=== PATIENT | female | born 1950 | race Caucasian/White ===

== ENCOUNTER → 2016-08-07 | Outpatient (CLI) | payer BC ==
[~2016-08-07] MED LIST: ASPI-232; ATOR-26 PO; ATV/1 SL; BRIM0.1S OP; CHOL1CAP57 PO; DIFL0.0519; FERR325T51 PO; GLIM2TAB PO; IBUP1CAP9 PO; LATA0.009 OPB; LISI-725 PO; MAGN400T6 PO; METF-383 PO; SITA25TA PO
[2016-08-07 13:21] LABS: HEMATOCRIT 44.9 % (37-47); MEAN CELL VOLUME 95.1 fL (80-100); MEAN CORPUSCULAR HEMOGLOBIN 32.2 pg (25-34); MEAN CORPUSCULAR HGB CONC 33.9 g/dl (32-36); MEAN PLATELET VOLUME 9.6 fL (7.4-10.4); PLATELET COUNT 333 K/uL (130-400); RED BLOOD COUNT 4.72 M/uL (4.2-5.4); WHITE BLOOD COUNT 10.84 K/uL (4.8-10.8)
[2016-08-07 13:46] LABS: ESTIMATED AVERAGE GLUCOSE 192 mg/dl; HA1C FLAG Normal (Normal)
[2016-08-07 14:15] LABS: ALT/SGPT 26 U/L (12-78); AST/SGOT 22 U/L (15-37); BLOOD UREA NITROGEN 14 mg/dl (7-18); BUN/CREATININE RATIO 19.1 (10-20); CALCIUM 9.3 mg/dl (8.5-10.1); CARBON DIOXIDE 25 mmol/L (21-32); CHLORIDE 104 mmol/L (98-107); CHOLESTEROL 123 mg/dl (0-200); CREATININE 0.74 mg/dl (0.60-1.20); GLUCOSE 132 mg/dl (70-99); POTASSIUM 4.1 mmol/L (3.5-5.1); SODIUM 139 mmol/L (136-145)
[2016-08-07 14:26] LABS: ALB/GLOB RATIO 1.2 (0.9-2); ALKALINE PHOSPHATASE 86 U/L (45-117); CHOLESTEROL/HDL RATIO 2.9; HDL CHOLESTEROL 43 mg/dl; LDL CHOLESTEROL CALCULATED 40 mg/dl; TRIGLYCERIDES 201 mg/dl (0-150); VERY LOW DENSITY LIPOPROT CALC 40 mg/dl
== END | disposition home or self-care (01) ==
LOC: C.LABPVFM 07:44
DX: E11.9 Type 2 diabetes mellitus without complications (principal); I10 Essential (primary) hypertension; E78.5 Hyperlipidemia, unspecified; E66.01 Morbid (severe) obesity due to excess calories

== ENCOUNTER → 2016-10-24 | Outpatient (CLI) | payer BC ==
--- NOTE | 2016-10-24 16:52 | MAMMOGRAPHY REPORT ---
BILATERAL DIGITAL SCREENING MAMMOGRAM WITH CAD: 10/24/2016 CLINICAL HISTORY: Routine screening. Patient has no complaints. TECHNIQUE: Bilateral CC, MLO and left cleavage views were obtained. Current study was also evaluate d with a Computer Aided Detection (CAD) system. COMPARISON: Comparison is made to exams dated: 10/21/2014 mammogram, 10/20/2013 mammogram, 10/22/2015 mammogram, 10/17/2012 mammogram, 10/12/2010 mammogram, and 10/17/2011 mammogram - [facility]. BREAST COMPOSITION: The tissue of both breasts is almost entirely fatty. FINDINGS: There is a benign rim calcification in the anterior left breast. No suspicious mass, arch itectural distortion or cluster of microcalcifications is seen. IMPRESSION: ACR BI-RADS CATEGORY 1: NEGATIVE There is no mammographic evidence of malignancy. A 1 year screening mammogram is recommended. The p atient will receive written notification of the results. Approximately 10% of breast cancers are not detected with mammography. A negative mammographic repor t should not delay biopsy if a clinically suggestive mass is present. Elsa Gonzales M.D. ay/:10/24/2016 16:39:50 Manager Leadership Development: Celine LOWE(Harinder)(Kristy), [facility] letter sent: Normal 1/2 BI-RADS Code: ACR BI-RADS Category 1: Negative
== END | disposition home or self-care (01) ==
LOC: C.MAMM 12:17
PROVIDERS: ATTEND Physician Assistant
DX: Z12.31 Encounter for screening mammogram for malignant neoplasm of breast (principal)

== ENCOUNTER → 2016-11-13 | Outpatient (CLI) | payer BC ==
[~2016-11-13] MED LIST changes: -FERR325T51 PO; -MAGN400T6 PO
[2016-11-13 17:24] LABS: HEMATOCRIT 44.7 % (37-47); MEAN CELL VOLUME 93.7 fL (80-100); MEAN CORPUSCULAR HEMOGLOBIN 30.8 pg (25-34); MEAN CORPUSCULAR HGB CONC 32.9 g/dl (32-36); MEAN PLATELET VOLUME 9.3 fL (7.4-10.4); PLATELET COUNT 340 K/uL (130-400); RED BLOOD COUNT 4.77 M/uL (4.2-5.4); WHITE BLOOD COUNT 10.62 K/uL (4.8-10.8)
[2016-11-13 18:06] LABS: ALT/SGPT 27 U/L (12-78); AST/SGOT 18 U/L (15-37); BLOOD UREA NITROGEN 11 mg/dl (7-18); BUN/CREATININE RATIO 17.2 (10-20); CALCIUM 8.9 mg/dl (8.5-10.1); CARBON DIOXIDE 28 mmol/L (21-32); CHLORIDE 104 mmol/L (98-107); CREATININE 0.66 mg/dl (0.60-1.20); GLUCOSE 198 mg/dl (70-99); POTASSIUM 4.1 mmol/L (3.5-5.1); SODIUM 139 mmol/L (136-145)
[2016-11-13 18:17] LABS: ALB/GLOB RATIO 1.1 (0.9-2); ALKALINE PHOSPHATASE 97 U/L (45-117); CHOLESTEROL 127 mg/dl (0-200); CHOLESTEROL/HDL RATIO 2.9; HDL CHOLESTEROL 44 mg/dl; LDL CHOLESTEROL CALCULATED 49 mg/dl; TRIGLYCERIDES 171 mg/dl (0-150); VERY LOW DENSITY LIPOPROT CALC 34 mg/dl
[2016-11-14 07:13] LABS: ESTIMATED AVERAGE GLUCOSE 206 mg/dl; HA1C FLAG Normal (Normal)
== END | disposition home or self-care (01) ==
LOC: C.LABPVFM 13:47
PROVIDERS: ATTEND Physician Assistant
DX: E11.9 Type 2 diabetes mellitus without complications (principal); J44.9 Chronic obstructive pulmonary disease, unspecified; I10 Essential (primary) hypertension; E78.5 Hyperlipidemia, unspecified

== ENCOUNTER → 2017-03-21 | Outpatient (CLI) | payer BC ==
[2017-03-21 12:23] LABS: HEMATOCRIT 43.2 % (37-47); MEAN CELL VOLUME 93.7 fL (80-100); MEAN CORPUSCULAR HEMOGLOBIN 30.2 pg (25-34); MEAN CORPUSCULAR HGB CONC 32.2 g/dl (32-36); MEAN PLATELET VOLUME 9.3 fL (7.4-10.4); PLATELET COUNT 413 K/uL (130-400); RED BLOOD COUNT 4.61 M/uL (4.2-5.4); WHITE BLOOD COUNT 10.56 K/uL (4.8-10.8)
[2017-03-21 12:56] LABS: ESTIMATED AVERAGE GLUCOSE 171 mg/dl; HA1C FLAG Normal (Normal)
[2017-03-21 12:57] LABS: ALT/SGPT 25 U/L (12-78); AST/SGOT 19 U/L (15-37); BLOOD UREA NITROGEN 15 mg/dl (7-18); BUN/CREATININE RATIO 21.4 (10-20); CALCIUM 9.7 mg/dl (8.5-10.1); CARBON DIOXIDE 26 mmol/L (21-32); CHLORIDE 105 mmol/L (98-107); CHOLESTEROL 131 mg/dl (0-200); CREATININE 0.69 mg/dl (0.60-1.20); GLUCOSE 156 mg/dl (70-99); POTASSIUM 4.3 mmol/L (3.5-5.1); SODIUM 139 mmol/L (136-145); TRIGLYCERIDES 280 mg/dl (0-150); VERY LOW DENSITY LIPOPROT CALC 56 mg/dl
[2017-03-21 13:07] LABS: ALKALINE PHOSPHATASE 88 U/L (45-117); CHOLESTEROL/HDL RATIO 3.2; HDL CHOLESTEROL 41 mg/dl; LDL CHOLESTEROL CALCULATED 34 mg/dl
== END | disposition home or self-care (01) ==
LOC: C.LABPVFM 10:14
PROVIDERS: ATTEND Physician Assistant
DX: E11.9 Type 2 diabetes mellitus without complications (principal); I10 Essential (primary) hypertension; J44.9 Chronic obstructive pulmonary disease, unspecified; E78.5 Hyperlipidemia, unspecified; E66.09 Other obesity due to excess calories

== ENCOUNTER → 2017-09-19 | Outpatient (CLI) | payer BC ==
[2017-09-19 12:36] LABS: HEMOGLOBIN 11.5 g/dL (12.0-16.0); MEAN CELL VOLUME 82.4 fL (80-100); MEAN CORPUSCULAR HEMOGLOBIN 25.6 pg (25-34); MEAN CORPUSCULAR HGB CONC 31.1 g/dl (32-36); MEAN PLATELET VOLUME 8.6 fL (7.4-10.4); PLATELET COUNT 422 K/uL (130-400); RED CELL DISTRIBUTION WIDTH CV 15.4 % (11.5-14.5); RED CELL DISTRIBUTION WIDTH SD 46.5 fL (36.4-46.3); WHITE BLOOD COUNT 11.45 K/uL (4.8-10.8)
[2017-09-19 12:58] LABS: ALBUMIN 3.5 gm/dl (3.4-5.0); ALT/SGPT 28 U/L (12-78); AST/SGOT 21 U/L (15-37); BLOOD UREA NITROGEN 15 mg/dl (7-18); CALCIUM 8.8 mg/dl (8.5-10.1); CARBON DIOXIDE 25 mmol/L (21-32); CREATININE 0.71 mg/dl (0.60-1.20); GLUCOSE 128 mg/dl (70-99); POTASSIUM 4.2 mmol/L (3.5-5.1); SODIUM 135 mmol/L (136-145)
[2017-09-19 13:09] LABS: ALKALINE PHOSPHATASE 92 U/L (45-117); CHOLESTEROL 131 mg/dl (0-200); LDL CHOLESTEROL CALCULATED 40 mg/dl; TOTAL PROTEIN 7.3 gm/dl (6.4-8.2)
[2017-09-19 13:26] LABS: HEMOGLOBIN A1C 7.7 % (4.5-5.6)
== END | disposition home or self-care (01) ==
LOC: C.LABPVFM 10:21
PROVIDERS: ATTEND Physician Assistant
DX: E11.65 Type 2 diabetes mellitus with hyperglycemia (principal)

== ENCOUNTER → 2017-10-25 | Outpatient (CLI) | payer BC ==
--- NOTE | 2017-10-29 07:47 | MAMMOGRAPHY REPORT ---
BILATERAL DIGITAL SCREENING MAMMOGRAM TOMOSYNTHESIS WITH CAD: 10/25/2017 CLINICAL HISTORY: Routine screening. Patient has no complaints. TECHNIQUE: Breast tomosynthesis in addition to standard 2D mammography was performed. Current study was also evaluated with a Computer Aided Detection (CAD) system. COMPARISON: Comparison is made to exams dated: 10/24/2016 mammogram, 10/22/2015 mammogram, 10/21/2014 m ammogram, 10/20/2013 mammogram, 10/17/2012 mammogram, and 10/17/2011 mammogram - [facility]. BREAST COMPOSITION: The tissue of both breasts is almost entirely fatty. FINDINGS: No suspicious masses, calcifications, or areas of architectural distortion are noted in ei ther breast. There has been no significant interval change compared to prior exams. IMPRESSION: ACR BI-RADS CATEGORY 1: NEGATIVE There is no mammographic evidence of malignancy. A 1 year screening mammogram is recommended. The pa tient will receive written notification of the results. Approximately 10% of breast cancers are not detected with mammography. A negative mammographic report should not delay biopsy if a clinically suggestive mass is present. Ashley Salinas M.D. /:10/25/2017 14:27:37 Personal Consultant: Harinder Angel M, [facility] letter sent: Normal 1/2 BI-RADS Code: ACR BI-RADS Category 1: Negative
== END | disposition home or self-care (01) ==
LOC: C.MAMM 12:08
PROVIDERS: ATTEND Physician Assistant
DX: Z12.31 Encounter for screening mammogram for malignant neoplasm of breast (principal)

== ENCOUNTER 2019-10-22 01:56 | Inpatient (IN) ==
--- NOTE | 2019-10-22 02:09 | Emergency Department Note ---
History of Present Illness General Chief complaint: Abdominal Pain Stated complaint: ABDOMINAL PAIN Time Seen by Provider: 10/22/19 01:57 History of Present Illness Maximum Pain Intensity: 7 This is a 69-year-old female that presents to the emergency department via ambulance with complaints of "abdominal pain". The patient states that she has used suppositories over the past 2 days to help reduce a bowel movement. She notes some associated nausea and diffuse abdominal pain. She notes she has known abdominal hernias and mesh was removed in the past by Dr. Luo secondary to reaction to these. She states that the abdominal pain she has been experiencing has been ongoing for several hours now and notes some nausea but no vomiting. No fevers, chills, chest pain or shortness of breath. No aggravating or alleviating factors. She rates the overall pain as a 7/10 Home Medications Home Medications Medication Instructions Recorded Confirmed Type aspirin [Aspirin Low Dose] 81 mg PO QPM 10/30/18 10/22/19 History atorvastatin [Lipitor] 80 mg PO HS 10/30/18 10/22/19 History brimonidine 1 drp OPHTHALMIC (EYE) BID 10/30/18 10/22/19 History cholecalciferol (vitamin D3) 2,000 unit PO QAM 10/30/18 10/22/19 History [Vitamin D3] citalopram [Celexa] 20 mg PO QAM 10/30/18 10/22/19 History diclofenac sodium 2 g TOPICAL DAILY PRN 10/30/18 10/22/19 History difluprednate [Durezol] 1 drp OPHTHALMIC (EYE) BID PRN 10/30/18 10/22/19 History gabapentin 300 mg PO HS 10/30/18 10/22/19 History glimepiride 4 mg PO BID 10/30/18 10/22/19 History ibuprofen 800 mg PO BID PRN 10/30/18 10/22/19 History latanoprost 1 drp OPHTHALMIC (EYE) PM 10/30/18 10/22/19 History lisinopril 20 mg PO QAM 10/30/18 10/22/19 History lorazepam 1 mg PO BID PRN 10/30/18 10/22/19 History metformin 1,700 mg PO QAM 10/30/18 10/22/19 History metformin 850 mg PO QPM 10/30/18 10/22/19 History sitagliptin [Januvia] 100 mg PO QPM 10/30/18 10/22/19 History Allergies Allergy/AdvReac Type Severity Reaction Status Date / Time latex Allergy Severe 2ND DEGREE Verified 10/22/19 04:42 BURN FROM BANDAGE adhesive Allergy Intermediate RASH Verified 10/22/19 04:42 Past Med/Surg History Medical History Anxiety Chronic obstructive pulmonary disease Depression Diabetes mellitus, type 2 NIDDM Glaucoma WELL CONTROLLED H/O defect LEFT ARM Hyperlipidemia Hypertension Peripheral neuropathy BILATERAL FEET Temporomandibular joint disorder NO PROBLEMS RECENTLY. Surgical History History of appendectomy History of cholecystectomy History of colonoscopy History of incision and drainage UMBILICAL ABSCESS History of total shoulder replacement RIGHT Hx of umbilical hernia repair X4 -- WEARS SUPPORT BAND DAILY S/P JALIL-BSO S/P tonsillectomy and adenoidectomy Family History Mother Diabetes mellitus, type 2 Aunt Diabetes mellitus, type 2 Social History Preferred Language: Georgian Communication Ability: Effective Insurance Compliance Analyst Required: No Beliefs That Will Affect Care: None Current Living Situation: Spouse Feels Safe at Home: Yes Smoking Status: Current every day smoker Tobacco Type: cigarettes ; Cigarettes Per Day: 2 PPD X 50 YEARS AGO ; Second Hand Exposure: Yes ; Hx Alcohol Use: No Hx Substance Use: No Review of Systems A total of 10 systems reviewed and were otherwise negative Physical Exam Vital Signs Vital Signs - 24 hr 10/22/19 01:59 10/22/19 02:08 10/22/19 03:45 Temperature 37 C Temperature Source Oral Pulse Rate 76 Pulse Rate [Right Finger] Blood Pressure 125/65 Blood Pressure [Left Arm] Blood Pressure Mean 85 Blood Pressure Mean [Left Arm] Pulse Oximetry 96 96 88 L Oxygen Delivery Method Nasal Cannula Nasal Cannula Room Air Oxygen Flow Rate 2 2 Sepsis Recent Fever Within 48 Hours No Sepsis Action Taken by Nursing No Action Required 10/22/19 03:46 10/22/19 05:13 Temperature Temperature Source Pulse Rate Pulse Rate [Right Finger] 69 81 Blood Pressure Blood Pressure [Left Arm] 141/64 H Blood Pressure Mean Blood Pressure Mean [Left Arm] 89 Pulse Oximetry 92 Oxygen Delivery Method Nasal Cannula Oxygen Flow Rate 2 Sepsis Recent Fever Within 48 Hours Sepsis Action Taken by Nursing VITAL SIGNS - Vital signs and nursing notes were reviewed. Stable and afebrile. GENERAL - 69-year-old female appearing her stated age who is in no acute distress. Communicates well with provider and answers questions appropriately. SKIN - Without rashes. No meningeal or petechial rash. HEAD - NC/AT. EYES - Sclera anicteric. MOUTH/OROPHARYNX - Without perioral cyanosis. NECK - Neck with FROM. No nuchal rigidity. LUNGS - Chest wall symmetric without accessory muscle use, intercostals retractions, or central cyanosis. Normal vesicular breath sounds CTA B/L. No wheezes, rales, or rhonchi appreciated. CARDIAC - RRR with S1/S2. No murmur, rubs, or gallops appreciated. ABDOMEN - Abdominal contour with visible deformity consistent with hernia without pulsations. BS normoactive all four quadrants. Generalized tenderness. Nonrigid abdomen. PSYCH - A&O, and cooperates fully with examiner. Pt is very pleasant and interacts well with examiner. Course Administered Medications Ioversol (Optiray 320 100ml) 100 ml IV ONCE PRN PRN Reason: Interaction Checking Stop: 10/26/19 04:02 Last Admin: 10/22/19 04:03 Dose: 93 ml Documented by: [id number] Medical Decision Making Laboratory Data Result diagrams: 10/22/19 03:26 10/22/19 03:26 Lab Results 10/22/19 10/22/19 10/22/19 Range/Units 03:26 03:26 03:30 WBC 21.50 H (4.8-10.8) K/uL RBC 4.41 (4.2-5.4) M/uL Hgb 8.1 L (12.0-16.0) g/dL Hct 31.4 L (37-47) % MCV 71.2 L (80-100) fL MCH 18.4 L (25-34) pg MCHC 25.8 L (32-36) g/dL RDW Std Deviation 50.6 H (36.4-46.3) fL RDW Coeff of Vikas 19.8 H (11.5-14.5) % Plt Count 390 (130-400) K/uL MPV 8.5 (7.4-10.4) fL Immature Gran % (Auto) 0.4 % Neut % (Auto) 90.3 % Lymph % (Auto) 4.6 % Montgomery % (Auto) 4.3 % Eos % (Auto) 0.0 % Baso % (Auto) 0.4 % Immature Gran # (Auto) 0.08 H (0.00-0.02) K/uL Neut # (Auto) 19.42 H (1.4-6.5) K/uL Lymph # (Auto) 0.99 L (1.2-3.4) K/uL Montgomery # (Auto) 0.92 H (0.11-0.59) K/uL Eos # (Auto) 0.01 (0-0.5) K/uL Baso # (Auto) 0.08 (0-0.2) K/uL Absolute Nucleated RBC 0.10 H (0-0) K/uL Nucleated RBC % (auto) 0.5 % Hypochromasia Present Spherocytes Occasional Tear Drop Cells Occasional Ovalocytes 1+ Sodium 132 L (136-145) mmol/L Potassium 4.4 (3.5-5.1) mmol/L Chloride 101 (98-107) mmol/L Carbon Dioxide 25 (21-32) mmol/L Anion Gap 6.0 (3-11) BUN 15 (7-18) mg/dl Creatinine 0.93 (0.6-1.2) mg/dl Est Cr Clr Drug Dosing 72.3 ml/min Est GFR ( Amer) 73.2 Est GFR (Non-Af Amer) 63.1 BUN/Creatinine Ratio 15.9 (10-20) Glucose 182 H (70-99) mg/dl Calcium 9.1 (8.5-10.1) mg/dl Magnesium 1.6 L (1.8-2.4) mg/dl Total Bilirubin 0.4 (0.2-1) mg/dl AST 17 (15-37) U/L ALT 24 (12-78) U/L Alkaline Phosphatase 135 H (45-117) U/L Troponin I < 0.015 (0-0.045) ng/ml Total Protein 8.4 H (6.4-8.2) gm/dl Albumin 3.7 (3.4-5.0) gm/dl Globulin 4.7 H (2.5-4.0) gm/dl Albumin/Globulin Ratio 0.8 L (0.9-2) Lipase 127 (73-393) U/L Urine Color Yellow Urine Appearance Clear (Clear) Urine pH 6.0 (4.5-7.5) Ur Specific [place]ley 1.016 (1.000-1.030) Urine Protein Negative (Negative) Urine Glucose (UA) 1+ H (Negative) Urine Ketones Negative (Negative) Urine Blood Negative (Negative) Urine Nitrite Negative (Negative) Urine Bilirubin Negative (Negative) Urine Urobilinogen Negative (Negative) Ur Leukocyte Esterase Negative (Negative) Imaging Data Radiologist's Impression: CT ABDOMEN & PELVIS With Contrast: Comparison: CT abdomen and pelvis 07/12/11. Large ventral abdominal wall hernia. Portions of the stomach, small bowel, large bowel, liver, pancreas, and kidneys extend into the hernia. Evidence of previous small bowel surgery. Multiple dilated, fluid-filled, and fecalized loops of small bowel are present within the hernia sac. The distal ileum is decompressed. Findings suggest small bowel obstruction. Trace interloop ascites and mesenteric edema. No pneumatosis or portal venous gas. Appendix is not definitely visualized. Scattered colonic diverticula without acute diverticulitis. Cholecystectomy. Liver, spleen, pancreas, adrenal glands are unremarkable. No hydronephrosis. Right kidney cyst. Aortoiliac atherosclerosis without aneurysm. Hysterectomy. Normal urinary bladder. No acute osseous findings. Radiologist: Kunal Isaac M.D. Study ready at 04:28 and initial results transmitted at 04:42 MDM Narrative Patient was seen and evaluated as above in room B12. Review was performed of nursing notes and vital signs. I did review pertinent previous visits and patient history. After obtaining a thorough history and physical examination the above work up was performed. She presents to us today with generalized abdominal pain and nausea. She does have a history of abdominal surgeries. There is a large ventral hernia on exam. She notes a history of hernias in the past. The abdomen is soft and nonrigid but she is tender diffusely throughout the abdomen. CBC reveals leukocytosis of 21.50 with hemoglobin at 8.1. This is decreased compared to previously but there is no evidence of hemorrhage or acute blood loss. Sodium 132. The troponin is negative. Urinalysis does not reveal infection. EKG reveals normal sinus rhythm at a rate of 69 bpm. QTc 432. There are similar T wave changes compared to EKG of October 31, 2013. Troponin is negative. CT scan reveals small bowel obstruction with thinning hernia. I did discuss this with the general surgeon. At this time I did reevaluate the patient and she was feeling well and had very minimal pain despite declining pa in medication. She was looking much better in regard to pain. I discussed the case with the hospitalist. Patient will be admitted for further evaluation and management. Do not believe that NG tube at this time needs to be emergently placed as there is no vomiting. I also do not believe that patient has a surgical abdomen on examination. Please refer to further documentation regarding her stay. Case was discussed with the attending physician. GCS: 15 In the evaluation and treatment of this patient, the following differential diagnoses were considered: ASC, VT, Pneumonia, GERD, Cholecystitis, Ascending Cholangitis, Cholydocholithiasis, Bowel Obstruction, PE, Amongst Others. Impression & Plan SBO (small bowel obstruction), Ventral hernia Discharge Plan Visit Data Chief Complaint: Abdominal Pain Stated Complaint: ABDOMINAL PAIN ED Provider: Cristofer Black ED Midlevel Provider: Pedro Luis Graves Discharge Problem: SBO (small bowel obstruction), Ventral hernia Patient Disposition: Admitted As Inpatient Condition: Good Forms Stand Alone Forms: [facility], Important Visit Information Prescriptions Prescriptions: No Action latanoprost 0.005 % Drops 1 drp OPHTHALMIC (EYE) PM RF: 0 atorvastatin [Lipitor] 80 mg Tablet 80 mg PO HS RF: 0 lisinopril 20 mg Tablet 20 mg PO QAM RF: 0 aspirin [Aspirin Low Dose] 81 mg Tablet,Delayed Release (Dr/Ec) 81 mg PO QPM RF: 0 glimepiride 2 mg Tablet 4 mg PO BID RF: 0 citalopram [Celexa] 20 mg Tablet 20 mg PO QAM RF: 0 lorazepam 1 mg Tablet 1 mg PO BID PRN (Reason: Anxiety) RF: 0 brimonidine 0.15 % Drops 1 drp OPHTHALMIC (EYE) BID RF: 0 cholecalciferol (vitamin D3) [Vitamin D3] 2,000 unit Capsule 2,000 unit PO QAM RF: 0 Durezol 0.05 % Drops 1 drp OPHTHALMIC (EYE) BID PRN (Reason: RED EYE) RF: 0 metformin 850 mg Tablet 850 mg PO QPM RF: 0 metformin 850 mg Tablet 1,700 mg PO QAM RF: 0 Januvia 100 mg Tablet 100 mg PO QPM RF: 0 gabapentin 300 mg Capsule 300 mg PO HS RF: 0 ibuprofen 800 mg Tablet 800 mg PO BID PRN (Reason: Pain) RF: 0 diclofenac sodium 1 % Gel 2 g TOPICAL DAILY PRN (Reason: Pain) RF: 0 Referrals Referrals: Kristal Pham CRNP [Primary Care Provider] -
[2019-10-22 03:40] LABS: Appearance Urine Clear (Clear); Bilirubin Urine Negative (Negative); Blood Urine Negative (Negative); Color Urine Yellow; Glucose Urine UA 1+ (Negative); Ketones Urine Negative (Negative); Leukocyte Esterase Urine Negative (Negative); Nitrite Urine Negative (Negative); Protein Urine Negative (Negative); Specific Gravity Urine 1.016 (1.000-1.030); Urobilinogen Urine Negative (Negative)
[2019-10-22 03:54] LABS: Alanine Aminotransferase 24 U/L (12-78); Albumin Level 3.7 gm/dl (3.4-5.0); Aspartate Aminotransferase 17 U/L (15-37); BUN Creatinine Ratio 15.9 (10-20); Blood Urea Nitrogen 15 mg/dl (7-18); Calcium 9.1 mg/dl (8.5-10.1); Carbon Dioxide 25 mmol/L (21-32); Chloride 101 mmol/L (98-107); Creatinine Clr Calc Pharmacy 72.3 ml/min; Est GFR (African American) 73.2; Est GFR (Non-African American) 63.1; Glucose 182 mg/dl (70-99); Lipase 127 U/L (73-393); Magnesium 1.6 mg/dl (1.8-2.4); Potassium 4.4 mmol/L (3.5-5.1); Sodium 132 mmol/L (136-145)
[2019-10-22 03:59] LABS: Albumin Globulin Ratio 0.8 (0.9-2); Alkaline Phosphatase 135 U/L (45-117); Bilirubin,Total 0.4 mg/dl (0.2-1); Globulin 4.7 gm/dl (2.5-4.0); Total Protein 8.4 gm/dl (6.4-8.2); Troponin I < 0.015 ng/ml (0-0.045)
[2019-10-22] MEDS ORDERED: IOVERSOL 100ml IV PRN (04:03)
[2019-10-22 04:16] LABS: Hematocrit (blood only) 31.4 % (37-47); Hemoglobin 8.1 g/dL (12.0-16.0); Mean Corpuscular Hemoglobin 18.4 pg (25-34); Mean Corpuscular Hgb Conc 25.8 g/dL (32-36); Mean Corpuscular Volume 71.2 fL (80-100); Mean Platelet Volume 8.5 fL (7.4-10.4); Nucleated RBC % (auto) 0.5 %; Platelet Count 390 K/uL (130-400); RDW Coefficient of Variation 19.8 % (11.5-14.5); RDW Standard Deviation 50.6 fL (36.4-46.3); Red Blood Count 4.41 M/uL (4.2-5.4)
[2019-10-22 04:19] LABS: Basophils # (auto) 0.08 K/uL (0-0.2); Basophils % (auto) 0.4 %; Eosinophils # (auto) 0.01 K/uL (0-0.5); Hypochromasia Present; Immature Granulocytes # (auto) 0.08 K/uL (0.00-0.02); Immature Granulocytes % (auto) 0.4 %; Lymphocytes # (auto) 0.99 K/uL (1.2-3.4); Lymphocytes % (auto) 4.6 %; Monocytes # (auto) 0.92 K/uL (0.11-0.59); Monocytes % (auto) 4.3 %; Neutrophils # (auto) 19.42 K/uL (1.4-6.5); Neutrophils % (auto) 90.3 %; Ovalocytes 1+; Spherocytes Occasional; Tear Drop Cells Occasional
--- NOTE | 2019-10-22 06:32 | History & Physical Report ---
Date of Service October 22, 2019 Assessment & Plan (1) SBO (small bowel obstruction): Patient with large ventral hernia containing most of her abdominal organs. SBO. Presently with abdominal pain, no nausea/vomiting. -Admit to medical floor -NPO -Zofran PRN nausea -Morphine PRN pain -IVF and electrolyte repletion -General Surgery consultation appreciated -Hold ASA and Lisinopril for now in event of possible surgery Present on Admission?: Yes (2) Ventral hernia: Patient with large ventral hernia, has been worked on in the past by Dr. Luo. Abdomen is soft -General Surgery consultation appreciated -Conitnue abdominal binder Present on Admission?: Yes (3) Hypertension: Blood pressure stable -Hold Lisinopril for now -Continue to monitor Present on Admission?: Yes (4) Hyperlipidemia: Chronic. -Continue Atorvastatin Present on Admission?: Yes (5) Glaucoma: Chronic. Stable -Continue Brimonide, Durezol Present on Admission?: Yes (6) Peripheral neuropathy: Chronic -Continue Gabapentin Present on Admission?: Yes (7) Depression: Chronic -Continue Celexa Present on Admission?: Yes (8) Anxiety: Chronic -Continue Ativan PRN Present on Admission?: Yes (9) Chronic obstructive pulmonary disease: Chronic -Supplemental O2 as needed to maintain sats 88-92% Present on Admission?: Yes (10) Diabetes mellitus, type 2: Blood sugar mildly elevated -Hold oral agents -ISS, patient NPO for now F/E/N - NSS at 80mL/hr, montior electrolytes and replete as needed, NPO Ppx - SCDs Code -Full Dispo - Admit to medical floor, General Surgery consultation for SBO and large ventral hernia Present on Admission?: Yes Admission and Anticipated Discharge Date Admission Date: 10/22/19 Anticipated date of discharge: 10/25/19 History of Present Illness Chief Complaint: Abdominal pain Primary Care Provider: Kristal Pham Traci Roman is a 69yo C female presenting with large ventral abdominal wall hernia and SBO. She acutely developed abdominal pain and fullness yesterday around 12:00 as well as some episodes of mild nausea without vomiting. CT of the abdomen revealed a large ventral abdominal wall hernia. Portions of the stomach, small bowel, large bowel, liver, pancreas and kidneys extend into the hernia. Evidence of previous SBO. Multiple dilated, fluid-filled and fecalized loops of small bowel are present within the hernia sacs. Findings suggest SBO. Patient presently feeling fairly well. She has been having episodes of sharp, severe abdominal pain 03/11. No nausea or vomiting at present. Additionally she denies fevers, chills, cough, CP, SOB, diarrhea or constipation. She is not passing gas. She gave herself an enema yesterday and had a normal BM prior to arrival. No additional complaints at this time Allergies Allergy/AdvReac Type Severity Reaction Status Date / Time latex Allergy Severe 2ND DEGREE Verified 10/22/19 04:42 BURN FROM BANDAGE adhesive Allergy Intermediate RASH Verified 10/22/19 04:42 Home Medications Home Medications Medication Instructions Recorded Confirmed Type aspirin [Aspirin Low Dose] 81 mg PO QPM 10/30/18 10/22/19 History atorvastatin [Lipitor] 80 mg PO HS 10/30/18 10/22/19 History brimonidine 1 drp OPHTHALMIC (EYE) BID 10/30/18 10/22/19 History cholecalciferol (vitamin D3) 2,000 unit PO QAM 10/30/18 10/22/19 History [Vitamin D3] citalopram [Celexa] 20 mg PO QAM 10/30/18 10/22/19 History diclofenac sodium 2 g TOPICAL DAILY PRN 10/30/18 10/22/19 History difluprednate [Durezol] 1 drp OPHTHALMIC (EYE) BID PRN 10/30/18 10/22/19 History gabapentin 300 mg PO HS 10/30/18 10/22/19 History glimepiride 4 mg PO BID 10/30/18 10/22/19 History ibuprofen 800 mg PO BID PRN 10/30/18 10/22/19 History latanoprost 1 drp OPHTHALMIC (EYE) PM 10/30/18 10/22/19 History lisinopril 20 mg PO QAM 10/30/18 10/22/19 History lorazepam 1 mg PO BID PRN 10/30/18 10/22/19 History metformin 1,700 mg PO QAM 10/30/18 10/22/19 History metformin 850 mg PO QPM 10/30/18 10/22/19 History sitagliptin [Januvia] 100 mg PO QPM 10/30/18 10/22/19 History Past Med/Surg History Social History Preferred Language: Serbian Communication Ability: Effective 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 Beliefs That Will Affect Care: None Current Living Situation: Spouse Feels Safe at Home: Yes Smoking Status: Current every day smoker Tobacco Type: cigarettes ; Cigarettes Per Day: 2 PPD X 50 YEARS AGO ; Second Hand Exposure: Yes ; Hx Alcohol Use: No Hx Substance Use: No Review of Systems Review of Systems: All systems reviewed & are unremarkable except as noted in HPI & below Physical Exam Physical Exam: General: patient resting comfortably, NAD, chronically ill in appearance, AA&O x 4 Skin: warm, dry, intact, no rashes or lesions HEENT: NC/AT, PERRL, EOMI, anicteric sclera, conjunctiva without injection, external ear normal to inspection and nontender, nares patent, moist mucus membranes, dentition intact, no oropharyngeal lesions, neck supple, trachea midline, no LAD, no thyromegaly, no JVD Heart: +S1/S2, regular, no m/r/g Lungs: equal air entry bilaterally, no rales/rhonchi/wheezes Abd: Diminished bowel sounds, very large ventral hernia, abdominal binder in p lace, soft, diffusely tender with palpation, no rebound Ext: warm, 2+ pulses in UE/LE bilaterally, no clubbing/cyanosis or edema Neuro: nonfocal, patient AA&O x 4, speech intact, no facial droop, moving all extremities on command with equal strength 5/5 Results & Data Results & Data ([facility]) Vital Signs (Past 12 Hours) Vital Signs Temp Pulse Pulse BP BP Pulse Ox 10/22/19 05:13 81 141/64 H 10/22/19 03:46 69 92 10/22/19 03:45 88 L 10/22/19 02:08 96 10/22/19 01:59 37 C 76 125/65 96 Laboratory Results Lab Results 10/22/19 10/22/19 10/22/19 Range/Units 03:26 03:26 03:30 WBC 21.50 H (4.8-10.8) K/uL RBC 4.41 (4.2-5.4) M/uL Hgb 8.1 L (12.0-16.0) g/dL Hct 31.4 L (37-47) % MCV 71.2 L (80-100) fL MCH 18.4 L (25-34) pg MCHC 25.8 L (32-36) g/dL RDW Std Deviation 50.6 H (36.4-46.3) fL RDW Coeff of Vikas 19.8 H (11.5-14.5) % Plt Count 390 (130-400) K/uL MPV 8.5 (7.4-10.4) fL Immature Gran % (Auto) 0.4 % Neut % (Auto) 90.3 % Lymph % (Auto) 4.6 % Pine % (Auto) 4.3 % Eos % (Auto) 0.0 % Baso % (Auto) 0.4 % Immature Gran # (Auto) 0.08 H (0.00-0.02) K/uL Neut # (Auto) 19.42 H (1.4-6.5) K/uL Lymph # (Auto) 0.99 L (1.2-3.4) K/uL Pine # (Auto) 0.92 H (0.11-0.59) K/uL Eos # (Auto) 0.01 (0-0.5) K/uL Baso # (Auto) 0.08 (0-0.2) K/uL Absolute Nucleated RBC 0.10 H (0-0) K/uL Nucleated RBC % (auto) 0.5 % Hypochromasia Present Spherocytes Occasional Tear Drop Cells Occasional Ovalocytes 1+ Sodium 132 L (136-145) mmol/L Potassium 4.4 (3.5-5.1) mmol/L Chloride 101 (98-107) mmol/L Carbon Dioxide 25 (21-32) mmol/L Anion Gap 6.0 (3-11) BUN 15 (7-18) mg/dl Creatinine 0.93 (0.6-1.2) mg/dl Est Cr Clr Drug Dosing 72.3 ml/min Est GFR ( Amer) 73.2 Est GFR (Non-Af Amer) 63.1 BUN/Creatinine Ratio 15.9 (10-20) Glucose 182 H (70-99) mg/dl Calcium 9.1 (8.5-10.1) mg/dl Magnesium 1.6 L (1.8-2.4) mg/dl Total Bilirubin 0.4 (0.2-1) mg/dl AST 17 (15-37) U/L ALT 24 (12-78) U/L Alkaline Phosphatase 135 H (45-117) U/L Troponin I < 0.015 (0-0.045) ng/ml Total Protein 8.4 H (6.4-8.2) gm/dl Albumin 3.7 (3.4-5.0) gm/dl Globulin 4.7 H (2.5-4.0) gm/dl Albumin/Globulin Ratio 0.8 L (0.9-2) Lipase 127 (73-393) U/L Urine Color Yellow Urine Appearance Clear (Clear) Urine pH 6.0 (4.5-7.5) Ur Specific [place] 1.016 (1.000-1.030) Urine Protein Negative (Negative) Urine Glucose (UA) 1+ H (Negative) Urine Ketones Negative (Negative) Urine Blood Negative (Negative) Urine Nitrite Negative (Negative) Urine Bilirubin Negative (Negative) Urine Urobilinogen Negative (Negative) Ur Leukocyte Esterase Negative (Negative) Diagnostic Findings CT Abdomen and Pelvis with Contrast: STAT-Rad REPORT: large ventral abdominal wall hernia. Portions of the stomach, small bowel, large bowel, liver, pancreas and kidneys extend into the hernia. Evidence of previous small bowel surgery Multiple dilated, fluid filled and fecalized loops of small bowel are present within the hernia sac. The distal ileum is decompressed. Findings suggest small bowel obstruction. Trace interloop ascites and mesenteric edema. No pneumatosis or portal venous gas. Appendix is not well visualized Scallered colonic diverticula without acute diverticulitis Cholecystectomy. Liver, spleen, pancreas, adrenal glands are unremarkable No hydronephrosis. Right kidney cyst. Aortoiliac atherosclerosis without aneurysm Hysterectomy. Normal urinary bladder No acute osseous findings ECG Additional Comments: Study shows NSR at 69, bifascicular block Code Status & VTE Plan Code Status FULL VTE Prophylaxis Plan VTE Prophylaxis will be ordered: Yes PG Care Time/CCT Total # of Minutes Spent Total Time Spent with Patient: Total time spent is greater than 50% in coordination of care (as documented) at patient's floor/unit and/or counseling patient: Coding Level of Care Code 63758 Initial Inpt Care Lvl 3 Diagnoses SBO (small bowel obstruction) K56.609 Ventral hernia K43.6 Obstruction and gangrene presence: with obstruction but without gangrene Hypertension I10 Hypertension type: essential hypertension Hyperlipidemia E78.5 Hyperlipidemia type: unspecified Glaucoma H40.9 Glaucoma type: unspecified Laterality: unspecified laterality Peripheral neuropathy G62.89 Peripheral neuropathy type: polyneuropathy, other Depression F32.9 Depression Type: major depressive disorder Major depression recurrence: unspecified whether recurrent Active/Remission status: remission status unspecified Anxiety F41.9 Chronic obstructive pulmonary disease J44.9 COPD type: unspecified COPD Diabetes mellitus, type 2 E11.9 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: without intermodal owner operator truck driver use Diabetes mellitus complication status: without complication (1) Ventral hernia Obstruction and gangrene presence: with obstruction but without gangrene Qualified Code(s): K43.6 - Other and unspecified ventral hernia with obstruction, without gangrene (2) Hypertension Hypertension type: essential hypertension Qualified Code(s): I10 - Essential (primary) hypertension (3) Hyperlipidemia Hyperlipidemia type: unspecified Qualified Code(s): E78.5 - Hyperlipidemia, unspecified (4) Glaucoma Glaucoma type: unspecified Laterality: unspecified laterality Qualified Code(s): H40.9 - Unspecified glaucoma (5) Peripheral neuropathy Peripheral neuropathy type: polyneuropathy, other Qualified Code(s): G62.89 - Other specified polyneuropathies (6) Depression Depression Type: major depressive disorder Major depression recurrence: unspecified whether recurrent Active/Remission status: remission status unspecified Qualified Code(s): F32.9 - Major depressive disorder, single episode, unspecified (7) Chronic obstructive pulmonary disease COPD type: unspecified COPD Qualified Code(s): J44.9 - Chronic obstructive pulmonary disease, unspecified (8) Diabetes mellitus, type 2 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
--- NOTE | 2019-10-22 08:27 | CT Scan Report ---
CT abd pelvis IV con only CLINICAL HISTORY: 69 years-old Female presenting with diffuse abd pain. TECHNIQUE: Multidetector CT of the abdomen and pelvis was performed after the administration of intra venous contrast. IV contrast: 93 mL of Optiray 320. One or more dose lowering techniques were used co nsistent with the principles of ALARA (as low as reasonably achievable), including automatic exposure control, mA or kV adjustment to individual patient size, and/or use of iterative reconstruction. COMPARISON: 07/12/2011. CT DOSE (mGy.cm): The estimated cumulative dose is 2272.76 mGy.cm. FINDINGS: Manager Of Hospital topogram: Unremarkable. Lung bases: Borderline enlargement of the heart. Pulmonary vascular prominence. Patchy groundglass op acities with mild interlobular septal thickening. Minimal dependent changes likely atelectasis. No pl eural effusion. Liver: Macronodular contour of the liver. A portion of the right and left hepatic lobes are contained within the large ventral hernia. No focal lesion allowing for the single phase of contrast. Patent h epatic vasculature. Biliary: Mild biliary ductal prominence likely a reservoir effect in the post cholecystectomy state. Gallbladder surgically absent. Pancreas: Mild parenchymal atrophy. The pancreas is also partially contained within the ventral herni a. Spleen: Normal. Adrenal glands: Normal. Kidneys and ureters: The kidneys are partially contained within the ventral hernia, right greater corwin n left. Right parapelvic cyst noted. Moderate perinephric fluid, nonspecific and bilateral. No nephro lithiasis or hydronephrosis. Ureters are distorted due to renal herniation though nondistended. Bladder: Incompletely evaluated secondary to underdistention. Pelvic organs: Uterus surgically absent. Bowel: Mild diverticulosis of the descending and proximal sigmoid colon. The colon is decompressed an d majority is contained within the large ventral hernia. Small bowel is dilated with feces in a regio n of an enteroenteric anastomosis indicating prior small bowel resection. Scattered interloop fluid i s noted. There is decompressed distal small bowel. There is a focal transition at the level of the en teroenteric anastomosis (series 3 image 326) located within the anterior central hernia sac. This is at the level of the fecal material within the small bowel. There is a smooth transition upstream with out convincing evidence of a closed loop obstruction. Peritoneal cavity: Scattered trace ascites as mentioned with interloop fluid. No pneumatosis or free intraperitoneal gas. Lymph nodes: No enlarged lymph nodes in the abdomen or pelvis. Vasculature: Atherosclerosis of the normal caliber abdominal aorta. IVC patent. Abdominal wall: Large wide necked ventral hernia containing hollow and solid viscera. The hernia sac is incompletely visualized along the inferior and left lateral margin. Musculoskeletal: Degenerative changes of the spine. Degenerative changes of the hips. IMPRESSION: 1. Small bowel obstruction suspected at the level of the enteroenteric anastomosis within the anteri or central ventral hernia, where there is prominent fecal material. This is favored to be a high-grad e partial or complete bowel obstruction. A bezoar is one consideration as well as a stricture or adhe jesus. Surgical consultation is advised. 2. Large ventral abdominal hernia containing hollow and solid viscera. This is chronic and was prese nt on the prior exam. 3. Mild congestive change and pulmonary edema may be present at the lung bases. The report will be called/faxed according to standard departmental protocol. ACT 112: Negative or not required by law. Electronically signed by: Kaiden Roca M.D. 10/22/2019 8:25 AM
[2019-10-22] MEDS ORDERED: GLUCAGON FOR INJ 1 MG VIAL SQ PRN (09:19)
[2019-10-22] MEDS ORDERED: CARBOHYDRATES FOR HYPOGLYCEMIA PO PRN (09:19)
[2019-10-22] MEDS ORDERED: LORazepam 1 MG/2 ML VIAL IV PRN (09:19)
[2019-10-22] MEDS ORDERED: DEXTROSE 50% 50 ML SYRINGE IV PRN (09:19)
[2019-10-22] MEDS ORDERED: ONDANSETRON INJ 2 MG/ML 2 ML VIAL IV PRN (09:19)
[2019-10-22] MEDS ORDERED: DICLOFENAC SOD 1% GEL 100 GM TUBE EXT PRN (09:19)
[2019-10-22] MEDS ORDERED: GLUCOSE 10 TABS/TUBE PO PRN (09:19)
[2019-10-22] MEDS ORDERED: GLUCOSE 40% GEL 15 GM TUBE PO PRN (09:19)
[2019-10-22] MEDS: MoRPHine SULFATE 2 MG/ML CARP IV PRN ×3 (10:49→17:52)
--- NOTE | 2019-10-22 12:12 | Electrocardiogram Report ---
Test Reason : Blood Pressure : / mmHG Vent. Rate : 069 BPM Atrial Rate : 069 BPM P-R Int : 162 ms QRS Dur : 142 ms QT Int : 404 ms P-R-T Axes : 064 125 035 degrees QTc Int : 432 ms Normal sinus rhythm Right bundle branch block Left posterior fascicular block Bifascicular block T wave abnormality, consider lateral ischemia Abnormal ECG When compared with ECG of 31-OCT-2013 12:52, Nonspecific T wave abnormality now evident in Inferior leads T wave inversion now evident in Anterolateral leads QT has shortened Confirmed by Landon Malcolm ([id number]) on 10/22/2019 12:12:14 PM Referred By: REFERRED SELF Confirmed By:Michael Malcolm
--- NOTE | 2019-10-22 12:49 | Surgery Consultation ---
Date of Consultation October 22, 2019 Assessment & Plan (1) Ventral hernia: 69-year-old female with multiple medical problems, BMI of 43, and multiple prior abdominal surgeries presents with small bowel obstruction at her old anastomosis within a very large ventral hernia. She has virtually no abdominal domain apparent on imaging. Need us to say her case would be extremely difficult if she did require surgical intervention. As she had improved slightly during her time in the emergency department and was feeling better, we agreed for admission with observation. However this afternoon she is feeling worse. She is not a surgical candidate at this facility. If her condition does not improve within the next 12 to 24 hours, or her symptoms begin to worsen, then I would recommend transfer to a tertiary facility for further management. She would benefit from an NG tube if she continues to have nausea. If she shows some improvement, then we could obtain a small bowel follow-through. General surgery will continue to follow while in house, call with questions or concerns. No surgical intervention indicated at this time Conservative management for bowel obstruction for now Patient is not a candidate for surgery at this facility, if her symptoms worsen or do not improve I would recommend transfer to tertiary facility NG tube if continues to have nausea Surgery will follow, call with questions or concerns (2) SBO (small bowel obstruction): (3) Diabetes mellitus, type 2: (4) Chronic obstructive pulmonary disease: (5) Depression: (6) Hypertension: History of Present Illness Attending Physician: Paul Parr History of Present Illness 69-year-old female with complex abdominal surgical history presented to the emergency department overnight with complaints of abdominal pain. She endorsed obstipation along with nausea. On CT she was found to have an extremely [place] ventral hernia containing bowel, liver, and majority of her intra-a bdominal organs. There was some fecal is of the small bowel and an old small bowel anastomosis with distal decompression concerning for obstruction or bezoar. I was contacted by the emergency department overnight and was informed that her pain had improved and that she was feeling much better. We discussed the fact that she would likely not be a surgical candidate for this facility, however if she was improving that she could be admitted to the medical service for observation. Since her admission, her pain is returned. She does not feel better than she did last night. She is endorsing nausea and she just got some antiemetics. She has had multiple ventral hernia repairs with a subsequent infection requiring laparotomy with removal of infected [place] [address] Luo. At the time she also had a small bowel resection. Since that time she has been seen at [facility] and was recommended for gastric bypass and smoking cessation prior to any surgical intervention which she did not do. She has not had episodes like this in the recent past. Allergies Allergy/AdvReac Type Severity Reaction Status Date / Time latex Allergy Severe 2ND DEGREE Verified 10/22/19 04:42 BURN FROM BANDAGE adhesive Allergy Intermediate RASH Verified 10/22/19 04:42 Home Medications Home Medications Medication Instructions Recorded Confirmed Type aspirin [Aspirin Low Dose] 81 mg PO QPM 10/30/18 10/22/19 History atorvastatin [Lipitor] 80 mg PO HS 10/30/18 10/22/19 History brimonidine 1 drp OPHTHALMIC (EYE) BID 10/30/18 10/22/19 History cholecalciferol (vitamin D3) 2,000 unit PO QAM 10/30/18 10/22/19 History [Vitamin D3] citalopram [Celexa] 20 mg PO QAM 10/30/18 10/22/19 History diclofenac sodium 2 g TOPICAL DAILY PRN 10/30/18 10/22/19 History difluprednate [Durezol] 1 drp OPHTHALMIC (EYE) BID PRN 10/30/18 10/22/19 History gabapentin 300 mg PO HS 10/30/18 10/22/19 History glimepiride 4 mg PO BID 10/30/18 10/22/19 History ibuprofen 800 mg PO BID PRN 10/30/18 10/22/19 History latanoprost 1 drp OPHTHALMIC (EYE) PM 10/30/18 10/22/19 History lisinopril 20 mg PO QAM 10/30/18 10/22/19 History lorazepam 1 mg PO BID PRN 10/30/18 10/22/19 History metformin 1,700 mg PO QAM 10/30/18 10/22/19 History metformin 850 mg PO QPM 10/30/18 10/22/19 History sitagliptin [Januvia] 100 mg PO QPM 10/30/18 10/22/19 History Patient History Medical History Anxiety Chronic obstructive pulmonary disease Depression Diabetes mellitus, type 2 NIDDM Glaucoma WELL CONTROLLED H/O defect LEFT ARM Hyperlipidemia Hypertension Peripheral neuropathy BILATERAL FEET Temporomandibular joint disorder NO PROBLEMS RECENTLY. 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 School Science Teacher Required: No Beliefs That Will Affect Care: Muslim Muslim Beliefs: Scientologist Current Living Situation: Spouse Feels Safe at Home: Yes Smoking Status: Current every day smoker Tobacco Type: cigarettes ; Cigarettes Per Day: 2 PPD X 50 YEARS AGO ; Second Hand Exposure: Yes ; Hx Alcohol Use: No Hx Substance Use: No Review of Systems Review of Systems: All systems reviewed & are unremarkable except as noted in HPI & below Physical Exam Constitutional: WD/WN, vitals as above + morbidly obese Eyes: PERRL, conjunctivae normal, anicteric sclerae ENMT: external ear and nose normal, oropharynx normal Respiratory: normal respiratory effort, lungs clear to auscultation Cardiovascular: RRR, no murmur, no edema Gastrointestinal (Abdomen): Percussion/Palpation: + abdomen tender, abdomen soft and + hernia (Abdomen mildly tender to palpation. Obese. Large hernia.); no guarding and abdomen not rigid Musculoskeletal: no cyanosis or clubbing, extremities motor strength 5/5 Skin: no rashes, warm and dry Neurologic: PERRL, EOMI, accommodation nl, no face palsy, no dysarthria Psychiatric: A+Ox3, euthymic affect Lymphatic: no cervical or axillary lymphadenopathy Results & Data Vital Signs (Past 12 Hours) Vital Signs Temp Pulse Pulse Resp BP BP Pulse Ox 10/22/19 11:51 36.5 C 75 18 132/69 96 10/22/19 09:19 36.5 C 88 86 16 151/90 H 90 10/22/19 07:42 87 22 129/40 L 91 10/22/19 05:13 81 141/64 H 10/22/19 03:46 69 92 10/22/19 03:45 88 L 10/22/19 02:08 96 10/22/19 01:59 37 C 76 125/65 96 Laboratory Results Laboratory Results - last 24 hr 10/22/19 10/22/19 10/22/19 03:26 03:26 03:30 WBC 21.50 H RBC 4.41 Hgb 8.1 L Hct 31.4 L MCV 71.2 L MCH 18.4 L MCHC 25.8 L RDW Std Deviation 50.6 H RDW Coeff of Vikas 19.8 H Plt Count 390 MPV 8.5 Immature Gran % (Auto) 0.4 Neut % (Auto) 90.3 Lymph % (Auto) 4.6 [place] % (Auto) 4.3 Eos % (Auto) 0.0 Baso % (Auto) 0.4 Immature Gran # (Auto) 0.08 H Neut # (Auto) 19.42 H Lymph # (Auto) 0.99 L [place] # (Auto) 0.92 H Eos # (Auto) 0.01 Baso # (Auto) 0.08 Absolute Nucleated RBC 0.10 H Nucleated RBC % (auto) 0.5 Hypochromasia Present Spherocytes Occasional Tear Drop Cells Occasional Ovalocytes 1+ Sodium 132 L Potassium 4.4 Chloride 101 Carbon Dioxide 25 Anion Gap 6.0 BUN 15 Creatinine 0.93 Est Cr Clr Drug Dosing 72.3 Est GFR ( Amer) 73.2 Est GFR (Non-Af Amer) 63.1 BUN/Creatinine Ratio 15.9 Glucose 182 H POC Glucose Calcium 9.1 Magnesium 1.6 L Total Bilirubin 0.4 AST 17 ALT 24 Alkaline Phosphatase 135 H Troponin I < 0.015 Total Protein 8.4 H Albumin 3.7 Globulin 4.7 H Albumin/Globulin Ratio 0.8 L Lipase 127 Urine Color Yellow Urine Appearance Clear Urine pH 6.0 Ur Specific [place] 1.016 Urine Protein Negative Urine Glucose (UA) 1+ H Urine Ketones Negative Urine Blood Negative Urine Nitrite Negative Urine Bilirubin Negative Urine Urobilinogen Negative Ur Leukocyte Esterase Negative 10/22/19 11:27 WBC RBC Hgb Hct MCV MCH MCHC RDW Std Deviation RDW Coeff of Vikas Plt Count MPV Immature Gran % (Auto) Neut % (Auto) Lymph % (Auto) [place] % (Auto) Eos % (Auto) Baso % (Auto) Immature Gran # (Auto) Neut # (Auto) Lymph # (Auto) [place] # (Auto) Eos # (Auto) Baso # (Auto) Absolute Nucleated RBC Nucleated RBC % (auto) Hypochromasia Spherocytes Tear Drop Cells Ovalocytes Sodium Potassium Chloride Carbon Dioxide Anion Gap BUN Creatinine Est Cr Clr Drug Dosing Est GFR ( Amer) Est GFR (Non-Af Amer) BUN/Creatinine Ratio Glucose POC Glucose 220 H Calcium Magnesium Total Bilirubin AST ALT Alkaline Phosphatase Troponin I Total Protein Albumin Globulin Albumin/Globulin Ratio Lipase Urine Color Urine Appearance Urine pH Ur Specific [place] Urine Protein Urine Glucose (UA) Urine Ketones Urine Blood Urine Nitrite Urine Bilirubin Urine Urobilinogen Ur Leukocyte Esterase Diagnostic Findings CT abd pelvis IV con only CLINICAL HISTORY: 69 years-old Female presenting with diffuse abd pain. TECHNIQUE: Multidetector CT of the abdomen and pelvis was performed after the administration of intravenous contrast. IV contrast: 93 mL of Optiray 320. One or more dose lowering techniques were used consistent with the principles of ALARA (as low as reasonably achievable), including automatic exposure control, mA or kV adjustment to individual patient size, and/or use of iterative reconstruction. COMPARISON: 07/12/2011. CT DOSE (mGy.cm): The estimated cumulative dose is 2272.76 mGy.cm. FINDINGS: Securities Analyst topogram: Unremarkable. Lung bases: Borderline enlargement of the heart. Pulmonary vascular prominence. Patchy groundglass opacities with mild interlobular septal thickening. Minimal dependent changes likely atelectasis. No pleural effusion. Liver: Macronodular contour of the liver. A portion of the right and left hepatic lobes are contained within the large ventral hernia. No focal lesion allowing for the single phase of contrast. Patent hepatic vasculature. Biliary: Mild biliary ductal prominence likely a reservoir effect in the post cholecystectomy state. Gallbladder surgically absent. Pancreas: Mild parenchymal atrophy. The pancreas is also partially contained within the ventral hernia. Spleen: Normal. Adrenal glands: Normal. Kidneys and ureters: The kidneys are partially contained within the ventral hernia, right greater than left. Right parapelvic cyst noted. Moderate perinephric fluid, nonspecific and bilateral. No nephrolithiasis or hydronephrosis. Ureters are distorted due to renal herniation though nondistended. Bladder: Incompletely evaluated secondary to underdistention. Pelvic organs: Uterus surgically absent. Bowel: Mild diverticulosis of the descending and proximal sigmoid colon. The colon is decompressed and majority is contained within the large ventral hernia. Small bowel is dilated with feces in a region of an enteroenteric anastomosis indicating prior small bowel resection. Scattered interloop fluid is noted. There is decompressed distal small bowel. There is a focal transition at the level of the enteroenteric anastomosis (series 3 image 326) located within the anterior central hernia sac. This is at the level of the fecal material within the small bowel. There is a smooth transition upstream without convincing evidence of a closed loop obstruction. Peritoneal cavity: Scattered trace ascites as mentioned with interloop fluid. No pneumatosis or free intraperitoneal gas. Lymph nodes: No enlarged lymph nodes in the abdomen or pelvis. Vasculature: Atherosclerosis of the normal caliber abdominal aorta. IVC patent. Abdominal wall: Large wide necked ventral hernia containing hollow and solid viscera. The hernia sac is incompletely visualized along the inferior and left lateral margin. Musculoskeletal: Degenerative changes of the spine. Degenerative changes of the hips. IMPRESSION: 1. Small bowel obstruction suspected at the level of the enteroenteric anastomosis within the anterior central ventral hernia, where there is prominent fecal material. This is favored to be a high-grade partial or complete bowel obstruction. A bezoar is one consideration as well as a stricture or adhesion. Surgical consultation is advised. 2. Large ventral abdominal hernia containing hollow and solid viscera. This is chronic and was present on the prior exam. 3. Mild congestive change and pulmonary edema may be present at the lung bases. PG Care Time/CCT Total # of Minutes Spent Total Time Spent with Patient: Total time spent is greater than 50% in coordination of care (as documented) at patient's floor/unit and/or counseling patient: Coding Level of Care Code 56634 Initial Inpt Care Lvl 3 Diagnoses Ventral hernia K43.9 SBO (small bowel obstruction) K56.609 Diabetes mellitus, type 2 E11.9 Diabetes mellitus correction insulin use: without ferry terminal agent use Diabetes mellitus complication status: without complication Chronic obstructive pulmonary disease J44.9 COPD type: unspecified COPD Depression F32.9 Depression Type: major depressive disorder Major depression recurrence: unspecified whether recurrent Active/Remission status: remission status unspecified Hypertension I10 Hypertension type: essential hypertension (1) Diabetes mellitus, type 2 Diabetes mellitus ferry terminal agent insulin use: without correction use Diabetes mellitus complication status: without complication Qualified Code(s): E11.9 - Type 2 diabetes mellitus without complications (2) Chronic obstructive pulmonary disease COPD type: unspecified COPD Qualified Code(s): J44.9 - Chronic obstructive pulmonary disease, unspecified (3) Depression Depression Type: major depressive disorder Major depression recurrence: unspecified whether recurrent Active/Remission status: remission status unspecified Qualified Code(s): F32.9 - Major depressive disorder, single episode, unspecified (4) Hypertension Hypertension type: essential hypertension Qualified Code(s): I10 - Essential (primary) hypertension
[2019-10-22] MEDS: BRIMONIDINE TARTRATE-P 0.15% 5 ML BTL OP SCH ×2 (12:50→20:01)
[2019-10-22] MEDS: CITALOPRAM 20 MG TAB PO SCH (12:50)
[2019-10-22] MEDS: INSULIN GLARGINE SOLOSTAR 100 UNITS/ML 3 ML PEN SC SCH ×2 (12:51→21:19)
[2019-10-22] MEDS: INSULIN ASPART 100 UNITS/ML 3 ML PEN SC SCH ×3 (12:51→17:09)
[2019-10-22] MEDS: SODIUM CHLORIDE 0.9% 1000ML 1,000 ML IV SCH ×2 (13:05→22:07)
[2019-10-22] MEDS ORDERED: Nursing to Pharmacy Communication ONE (16:25)
[2019-10-22] MEDS ORDERED: HALOPERIDOL LACTATE 5 MG/ML 1 ML VIAL IM STA (18:24)
[2019-10-22] MEDS ORDERED: GABAPENTIN 300 MG CAP PO SCH (21:00)
[2019-10-22] MEDS ORDERED: ATORVASTATIN 40 MG TAB PO SCH (21:00)
[2019-10-22] MEDS ORDERED: LATANOPROST 0.005% OP SOLN 2.5 ML BTL OP SCH (21:00)
[2019-10-23] MEDS: INSULIN ASPART 100 UNITS/ML 3 ML PEN SC SCH ×4 (00:26→18:15)
[2019-10-23 07:07] LABS: Hematocrit (blood only) 28.8 % (37-47); Hemoglobin 7.7 g/dL (12.0-16.0); Mean Corpuscular Hemoglobin 18.5 pg (25-34); Mean Corpuscular Hgb Conc 26.7 g/dL (32-36); Mean Corpuscular Volume 69.2 fL (80-100); Mean Platelet Volume 8.7 fL (7.4-10.4); Nucleated RBC # (auto) 0.09 K/uL (0-0); Nucleated RBC % (auto) 0.5 %; Platelet Count 433 K/uL (130-400); RDW Coefficient of Variation 19.9 % (11.5-14.5); RDW Standard Deviation 49.2 fL (36.4-46.3); Red Blood Count 4.16 M/uL (4.2-5.4); White Blood Count 17.66 K/uL (4.8-10.8)
[2019-10-23 07:37] LABS: BUN Creatinine Ratio 32.8 (10-20); Calcium 8.8 mg/dl (8.5-10.1); Creatinine Clr Calc Pharmacy 66.3 ml/min; Est GFR (African American) 66.2; Est GFR (Non-African American) 57.2; Potassium 4.1 mmol/L (3.5-5.1)
[2019-10-23 07:53] LABS: Anisocytosis Present; Basophils # (auto) 0.04 K/uL (0-0.2); Basophils % (auto) 0.2 %; Eosinophils # (auto) 0.03 K/uL (0-0.5); Eosinophils % (auto) 0.2 %; Hypochromasia Present; Immature Granulocytes # (auto) 0.06 K/uL (0.00-0.02); Immature Granulocytes % (auto) 0.3 %; Lymphocytes % (auto) 7.4 %; Microcytosis Present; Monocytes # (auto) 2.07 K/uL (0.11-0.59); Monocytes % (auto) 11.7 %; Neutrophils # (auto) 14.16 K/uL (1.4-6.5); Neutrophils % (auto) 80.2 %; Poikilocytosis Present
[2019-10-23 07:58] LABS: Estimated Average Glucose 160 mg/dl; Hemoglobin A1C 7.2 % (4.5-5.6)
--- NOTE | 2019-10-23 08:44 | Communication Note ---
Date of Service: October 22, 2019 Had discussion with General Surgery. Will place NG tube in the afternoon. Patient reports no significant improvement, but pain is not as bad as it was ear lier. She had rated this as a 15/10 and now it is a 10/10. Her belly is soft to palpation, no rebound or peritonitis. Patient was agreeable to NG tube and if no improvement over next 24 hours, will transfer. Was called by nurse at around 18:00. Patient was confused. Ordered labs to be drawn tonight including lactic acid. Case was signed out to overnight resident. Updated her daughter.
--- NOTE | 2019-10-23 09:19 | Surgery Progress Note ---
Date of Service October 23, 2019 Assessment & Plan (1) Ventral hernia: (2) SBO (small bowel obstruction): will recheck KUB. ? NGT adequate position. may need contrast ... could consider SBFT via NGT in near future. agree with Dr. Gautam...total loss of abdominal domain would require multi- specialty surgical team at a tertiary facility of surgery necessary. Subjective sitting up at bedside. states pain "about the same" though she appears comfortable, per nursing has been confused since ativan given. NGT in with about 200 cc's out. no bm yet. Physical Exam Physical Exam: alert. nad abd: obese with loss of domain. minimal tenderness and certainly no peritoneal signs Results & Data Vital Signs (Past 12 Hours) Vital Signs Temp Pulse Pulse Resp BP Pulse Ox 10/23/19 06:29 36.7 C 110 H 21 143/60 H 91 10/23/19 00:00 37.4 C 98 H 20 100/54 L 90 10/22/19 22:33 105 H PG Care Time/CCT Total # of Minutes Spent Total Time Spent with Patient: Total time spent is greater than 50% in coordination of care (as documented) at patient's floor/unit and/or counseling patient: Coding Level of Care Code 68679 Subseq Hosp Care Lvl 3 Diagnoses Ventral hernia K43.9 SBO (small bowel obstruction) K56.609
--- NOTE | 2019-10-23 09:59 | XRay Report ---
XR KUB/Abdomen 1 view CLINICAL HISTORY: SBO COMPARISON STUDY: CT 10/22/2019 FINDINGS: Nasogastric tube placed within the mid stomach. Several distended loops of small bowel persist within the left lateral abdominal and pelvic region. N o evidence for free air or pneumatosis. IMPRESSION: Findings again consistent with partial small bowel obstructive change. Nasogastric tube position within the mid stomach. ACT 112: Negative or not required by law. The above report was generated using voice recognition software. It may contain grammatical, syntax or spelling errors. Electronically signed by: Shawn Aldrich M.D. 10/23/2019 9:57 AM
[2019-10-23] MEDS: INSULIN GLARGINE SOLOSTAR 100 UNITS/ML 3 ML PEN SC SCH (12:00)
[2019-10-23] MEDS: BRIMONIDINE TARTRATE-P 0.15% 5 ML BTL OP SCH (13:16)
[2019-10-23] MEDS: CITALOPRAM 20 MG TAB PO SCH (13:16)
[2019-10-23] MEDS ORDERED: SODIUM CHLORIDE 0.9% 1000ML 1,000 ML IV ONE (13:22)
[2019-10-23] MEDS ORDERED: COUGH DROP (SUGAR FREE) LOZ 24 LOZ/1 BOX BUCCAL ONE (13:59)
--- NOTE | 2019-10-23 17:39 | Discharge Summary ---
Date of Service October 23, 2019 Admission HPI Per Admitting Provider Traci Roman is a 69yo C female presenting with large ventral abdominal wall hernia and SBO. She acutely developed abdominal pain and fullness yesterday around 12:00 as well as some episodes of mild nausea without vomiting. CT of the abdomen revealed a large ventral abdominal wall hernia. Portions of the stomach, small bowel, large bowel, liver, pancreas and kidneys extend into the hernia. Evidence of previous SBO. Multiple dilated, fluid-filled and fecalized loops of small bowel are present within the hernia sacs. Findings suggest SBO. Patient presently feeling fairly well. She has been having episodes of sharp, severe abdominal pain 03/11. No nausea or vomiting at present. Additionally she denies fevers, chills, cough, CP, SOB, diarrhea or constipation. She is not passing gas. She gave herself an enema yesterday and had a normal BM prior to arrival. No additional complaints at this time Principal Diagnosis Small bowel obstruction Discharge Exam General: patient sitting at bedside, NAD, chronically ill in appearance, AA&O x 4 Skin: warm, dry, intact, no rashes or lesions HEENT: NC/AT, PERRL, EOMI, anicteric sclera, conjunctiva without injection, external ear normal to inspection and nontender, nares patent, moist mucus membranes, dentition intact, no oropharyngeal lesions, neck supple, trachea midline, no LAD, no thyromegaly, no JVD Heart: +S1/S2, regular, no m/r/g Lungs: equal air entry bilaterally, no rales/rhonchi/wheezes Abd: Diminished bowel sounds, very large ventral hernia, abdominal binder in place, soft, diffusely tender with deep palpation, no rebound Ext: warm, 2+ pulses in UE/LE bilaterally, no clubbing/cyanosis or edema Neuro: nonfocal, patient AA&O x 4, speech intact, no facial droop, moving all extremities on command with equal strength 5/5 Discharge Data Allergies Allergy/AdvReac Type Severity Reaction Status Date / Time latex Allergy Severe 2ND DEGREE Verified 10/22/19 04:42 BURN FROM BANDAGE adhesive Allergy Intermediate RASH Verified 10/22/19 04:42 Consultations 10/22/19 04:46 ED Decision to Admit Stat 10/22/19 09:19 Consult General Surgery Routine 10/23/19 17:15 Burn CD for patient Stat Ordered Studies 10/22/19 02:06 CT abd pelvis IV con only Urgent Hospital Course (1) SBO (small bowel obstruction): Patient with large ventral hernia containing most of her abdominal organs. SBO. Presently with abdominal pain, no nausea/vomiting. -Admit to medical floor -NPO on NG tube, about 600 ml of NG tube fluid has been removed. -WBC has been improving. However lactic acid is worsening at 3.5 from 3.1 -Due to difficulty of having surgery, patient will be transferred to [facility], patient agreed to transfer. D/W Dr. Galvez who agreed on transfer. -Zofran PRN nausea -Morphine PRN pain -IVF and electrolyte repletion -General Surgery consultation appreciated -Hold ASA and Lisinopril for now in event of possible surgery Tried calling family but did not scrap picker phone. D/W Dr. Galvez, no source at this time, wanted to hold off antibiotics given low procal and decreasing WBC. (2) Obesity: Morbid obesity, BMI 43 recommend weight loss, life style changes. Patient is a bariatric surgery candidate. (3) Ventral hernia: Patient with large ventral hernia, has been worked on in the past by Dr. Luo. Abdomen is soft -General Surgery consultation appreciated -Conitnue abdominal binder (4) Hypertension: Blood pressure stable -Hold Lisinopril for now -Continue to monitor (5) Hyperlipidemia: Chronic. -Continue Atorvastatin (6) Glaucoma: Chronic. Stable -Continue Brimonide, Durezol (7) Peripheral neuropathy: Chronic -Continue Gabapentin (8) Depression: Chronic -Continue Celexa (9) Anxiety: Chronic -Continue Ativan PRN (10) Chronic obstructive pulmonary disease: Chronic -Supplemental O2 as needed to maintain sats 88-92% (11) Diabetes mellitus, type 2: Blood sugar mildly elevated -Hold oral agents -ISS, patient NPO for now F/E/N - NSS at 80mL/hr, montior electrolytes and replete as needed, NPO Ppx - SCDs Code -Full (12) Acute metabolic encephalopathy: Patient is improving, was confused yesterday. But this has improved today. May be due to primary problem, vs medication (morphine and ativan) Total Time Total Time Spent Total Time Spent (In Minutes): 35 Discharge Plan Discharge Items Patient Disposition: Transfer Acute Care Hospital Reason For Visit: sbo, large ventral abdominal wall hernia Discharge Diagnosis: SBO, large ventral abdominal wall hernia Condition on Discharge: Good Activity: Resume your previous activity Non-emergency contact: Primary Care Provider Call non-emergency contact if: you have any medication questions Follow-up/Referrals: Kristal Pham CRNP [Primary Care Provider] - Diet: Other - See Diet Comment Diet Comment: NPO Addtl Attending Provider Instructions: Transferred to another facility Pending Studies at Discharge: No Stand-Alone Forms: My [employer], Smoking Cessation Skilled Items Patient informed of condition?: Yes DNR: No Discharge Level of Care: Other Communicable Disease: No Discharge Prognosis: Deteriorating Lines: Peripheral IV Urinary Catheter: No Medications and DC Order Prescriptions: New insulin aspart U-100 [Novolog Flexpen U-100 Insulin] 100 unit/mL (3 mL) Insulin Pen 0 unit SC Q6 Qty: 0 RF: 0 Lantus Solostar U-100 Insulin 100 unit/mL (3 mL) Insulin Pen 5 unit SC BID Qty: 0 RF: 0 morphine 2 mg/mL Syringe 1 mg IV Q2H PRN (Reason: pain) Qty: 2 RF: 0 levofloxacin in D5W 750 mg/150 mL piggyback 750 mg IV Q24H Qty: 150 RF: 0 metronidazole in NaCl (iso-os) 500 mg/100 mL piggyback 500 mg IV Q8H Qty: 2400 RF: 0 Continued latanoprost 0.005 % Drops 1 drp OPHTHALMIC (EYE) PM RF: 0 atorvastatin [Lipitor] 80 mg Tablet 80 mg PO HS RF: 0 aspirin [Aspirin Low Dose] 81 mg Tablet,Delayed Release (Dr/Ec) 81 mg PO QPM RF: 0 citalopram [Celexa] 20 mg Tablet 20 mg PO QAM RF: 0 brimonidine 0.15 % Drops 1 drp OPHTHALMIC (EYE) BID RF: 0 cholecalciferol (vitamin D3) [Vitamin D3] 2,000 unit Capsule 2,000 unit PO QAM RF: 0 Durezol 0.05 % Drops 1 drp OPHTHALMIC (EYE) BID PRN (Reason: RED EYE) RF: 0 gabapentin 300 mg Capsule 300 mg PO HS RF: 0 diclofenac sodium 1 % Gel 2 g TOPICAL DAILY PRN (Reason: Pain) RF: 0 Discontinued lisinopril 20 mg Tablet 20 mg PO QAM RF: 0 glimepiride 2 mg Tablet 4 mg PO BID RF: 0 lorazepam 1 mg Tablet 1 mg PO BID PRN (Reason: Anxiety) RF: 0 metformin 850 mg Tablet 850 mg PO QPM RF: 0 metformin 850 mg Tablet 1,700 mg PO QAM RF: 0 Januvia 100 mg Tablet 100 mg PO QPM RF: 0 ibuprofen 800 mg Tablet 800 mg PO BID PRN (Reason: Pain) RF: 0 Discharge Orders: Discharge Order (Routine); Ordered 10/23/19 Ordered By: Paul Parr Admission Data Admit Date/Time: 10/22/19 05:40 Attending Provider: Paul Parr Admit Provider: Syl Gold Primary Care Provider: Kristal Pham Other Providers: Syl Gold ; Gee Gautam Other Interventions: Discharge Summary Assessment (RN) Last Done: 10/23/19 21:05 DC Date/Time DO NOT enter until pt leaves facility: 10/23/19 20:52 Coding Level of Care Code D/C Day Management >30 mins Diagnoses SBO (small bowel obstruction) K56.609 Obesity E66.9 Ventral hernia K43.9 Hypertension I10 Hypertension type: essential hypertension Hyperlipidemia E78.5 Hyperlipidemia type: unspecified Glaucoma H40.9 Glaucoma type: unspecified Laterality: unspecified laterality Peripheral neuropathy G62.89 Peripheral neuropathy type: polyneuropathy, other Depression F32.9 Active/Remission status: remission status unspecified Depression Type: major depressive disorder Major depression recurrence: unspecified whether recurrent Anxiety F41.9 Chronic obstructive pulmonary disease J44.9 COPD type: unspecified COPD Diabetes mellitus, type 2 E11.9 Diabetes mellitus complication status: without complication Diabetes mellitus supervisor intermediates insulin use: without supervisor intermediates use Acute metabolic encephalopathy G93.41 Time Spent (min) 35
[2019-10-23] MEDS ORDERED: LEVOFLOXACIN/D5W 750 MG/150 ML BAG IV SCH (18:00)
[2019-10-23] MEDS ORDERED: metroNIDAZOLE 500 MG/100 ML BAG IV SCH (18:00)
[2019-10-23 18:01] LABS: Albumin Level 3.3 gm/dl (3.4-5.0); BUN Creatinine Ratio 41.4 (10-20); Calcium 8.5 mg/dl (8.5-10.1); Est GFR (African American) 73.2; Est GFR (Non-African American) 63.1
[2019-10-23 18:04] LABS: Albumin Globulin Ratio 0.8 (0.9-2); Bilirubin,Total 0.6 mg/dl (0.2-1); Total Protein 7.3 gm/dl (6.4-8.2)
[2019-10-23 18:36] LABS: Hematocrit (blood only) 28.9 % (37-47); Hemoglobin 7.6 g/dL (12.0-16.0); Mean Corpuscular Hemoglobin 18.2 pg (25-34); Mean Corpuscular Hgb Conc 26.3 g/dL (32-36); Mean Corpuscular Volume 69.3 fL (80-100); Mean Platelet Volume 8.6 fL (7.4-10.4); Nucleated RBC # (auto) 0.09 K/uL (0-0); Nucleated RBC % (auto) 0.6 %; Platelet Count 416 K/uL (130-400); RDW Coefficient of Variation 19.9 % (11.5-14.5); RDW Standard Deviation 49.4 fL (36.4-46.3); Red Blood Count 4.17 M/uL (4.2-5.4); White Blood Count 15.35 K/uL (4.8-10.8)
[2019-10-23 18:40] LABS: Anisocytosis Present; Basophils # (auto) 0.04 K/uL (0-0.2); Basophils % (auto) 0.3 %; Eosinophils # (auto) 0.05 K/uL (0-0.5); Eosinophils % (auto) 0.3 %; Hypochromasia Present; Immature Granulocytes # (auto) 0.03 K/uL (0.00-0.02); Immature Granulocytes % (auto) 0.2 %; Lymphocytes # (auto) 1.42 K/uL (1.2-3.4); Lymphocytes % (auto) 9.3 %; Microcytosis Present; Monocytes # (auto) 1.79 K/uL (0.11-0.59); Monocytes % (auto) 11.7 %; Neutrophils # (auto) 12.02 K/uL (1.4-6.5); Neutrophils % (auto) 78.2 %; Ovalocytes 1+; Poikilocytosis Present; Polychromasia 1+
== END 2019-10-23 20:52 | disposition short-term general hospital (02) | DRG 393 ==
LOC: ED 01:56 → 2S 05:40 → SUATTDRO 05:40 → 2S 08:20

== ENCOUNTER 2021-01-08 18:47 | Inpatient (IN) ==
[2021-01-08] MEDS ORDERED: NovoLIN-R INSULIN PER UNIT CHARGE SC STA (19:07)
[2021-01-08] MEDS ORDERED: SODIUM CHLORIDE 0.9% 1000ML 500 ML IV ONE (19:07)
[2021-01-08] MEDS ORDERED: ONDANSETRON INJ 2 MG/ML 2 ML VIAL IV STA (19:08)
[2021-01-08] MEDS ORDERED: MoRPHine SULFATE 4 MG/ML 1 ML CARP\\VIAL IV STA (19:08)
[2021-01-08] MEDS ORDERED: SODIUM CHLORIDE 0.9% 1000ML 1,000 ML IV SCH (19:15)
[2021-01-08 19:27] LABS: Basophils # (auto) 0.04 K/uL (0-0.2); Basophils % (auto) 0.5 %; Eosinophils # (auto) 0.07 K/uL (0-0.5); Eosinophils % (auto) 0.9 %; Hematocrit (blood only) 46.4 % (37-47); Immature Granulocytes # (auto) 0.01 K/uL (0.00-0.02); Immature Granulocytes % (auto) 0.1 %; Lymphocytes % (auto) 23.1 %; Mean Corpuscular Hemoglobin 30.8 pg (25-34); Mean Corpuscular Hgb Conc 34.5 g/dL (32-36); Mean Corpuscular Volume 89.2 fL (80-100); Mean Platelet Volume 9.8 fL (7.4-10.4); Monocytes # (auto) 0.75 K/uL (0.11-0.59); Monocytes % (auto) 10.2 %; Neutrophils % (auto) 65.2 %; Platelet Count 224 K/uL (130-400); RDW Coefficient of Variation 15.7 % (11.5-14.5); RDW Standard Deviation 50.9 fL (36.4-46.3); White Blood Count 7.37 K/uL (4.8-10.8)
[2021-01-08 19:44] LABS: Appearance Urine Clear (Clear); Bilirubin Urine Negative (Negative); Blood Urine Negative (Negative); Color Urine Yellow; Glucose Urine UA 3+ (Negative); Ketones Urine 1+ (Negative); Leukocyte Esterase Urine Negative (Negative); Nitrite Urine Negative (Negative); Protein Urine Negative (Negative); Specific Gravity Urine 1.033 (1.000-1.030); Urobilinogen Urine Negative (Negative); pH Urine 5.5 (4.5-7.5)
[2021-01-08 20:49] LABS: Albumin Level 3.4 gm/dl (3.4-5.0); BUN Creatinine Ratio 22.9 (10-20); Calcium 9.9 mg/dl (8.5-10.1); Creatinine Clr Calc Pharmacy 78.9 ml/min; Est GFR (African American) 88.5 ml/min; Est GFR (Non-African American) 76.4 ml/min; Magnesium 1.6 mg/dl (1.8-2.4); Phosphorus 4.5 mg/dl (2.5-4.9); Potassium 3.9 mmol/L (3.5-5.1)
[2021-01-08 20:54] LABS: Albumin Globulin Ratio 0.9 (0.9-2); Bilirubin,Total 0.7 mg/dl (0.2-1); Total Protein 7.4 gm/dl (6.4-8.2)
[2021-01-08] MEDS ORDERED: FUROSEMIDE 40 MG/4 ML VIAL IV STA (20:58)
--- NOTE | 2021-01-08 21:14 | XRay Report ---
XR chest 1V portable CLINICAL HISTORY: weakness COMPARISON STUDY: October 08, 2018 FINDINGS: No pneumothorax. No pleural effusion. Diffuse reticular opacities are again seen bilaterally. Minimal tenting of the left hemidiaphragm jessica ht represent atelectasis. Cardiac silhouette is prominent. Left mediastinal border is partially obscuring by surrounding opacit y. Pulmonary vasculature are indistinct.. Osseous structures: Osteopenia. Degenerative changes of the spine. Orthopedic right shoulder joint. Deformed left shoulder joint which is worsening since prior study. IMPRESSION: 1. CHF pattern with possible pulmonary edema. Obscured left mediastinal which might represent infilt rate within left upper lung versus other etiology. Further evaluation with CT of of the chest is mingo elliott. Findings were sent to emergency Department. ACT 112: Positive. There are findings on this exam that require communication between the performing entity and the patient following Patient Test Result Information Act ([place] Act 112) guidelines. The above report was generated using voice recognition software. It may contain grammatical, syntax o r spelling errors. Electronically signed by: Madeleine Newton DO 01/08/2021 9:12 PM
[2021-01-08 21:19] LABS: Beta-Hydroxybutyrate 29.88 mg/dl (0.2-2.81); Thyroid Stimulating Hormone 0.883 uIu/ml (0.300-4.500)
[2021-01-08] MEDS ORDERED: NovoLIN-R INSULIN PER UNIT CHARGE IV STA (22:20)
[2021-01-08] MEDS ORDERED: POTASSIUM CHLORIDE CRTAB 20 MEQ TABCR PO STA (22:20)
[2021-01-08] MEDS ORDERED: INSULIN ASPART PER UNIT SC STA (22:20)
[2021-01-08] MEDS ORDERED: INSULIN HUMAN REGULAR PER UNIT 10 UNITS in SYRINGE 9.9 ML IV ONE (22:30)
--- NOTE | 2021-01-08 22:34 | History & Physical Report ---
Date of Service January 08, 2021 Assessment & Plan (1) Diabetes mellitus, type 2: 70yo female with history of DM presenting with hyperglycemia. Patient is on Januvia outpatient. Does not routinely check her blood sugars. Reports compliance with her home medications. Last HgbA1C = 7.2 on 10/23/19. BSG on arrival = 481 on BMP. Fingersticks 516 --> 438 --> 423. After 10u SQ insulin. 10u Novolog given at 22:43 and 10u IV insulin administered at 23:22 Patient does have a small anion gap of 12 and +BHB -Check VBG and repeat chemistry to evaluate pH and anion gap -Repeat fingerstick q 2 hours until blood sugar properly controlled. If no improvement with above regimen will consider insulin gtt -Check A1C -Lantus 15u BID -ISS -Continue Gabapentin 300mg po TID Present on Admission?: Yes (2) Hypertension: Chronic. Stable. Presently 136/99 -Continue Lisinopril 20mg po daily Present on Admission?: Yes (3) Hyperlipidemia: Chronic -Continue Atorvastatin 80mg po qHS Present on Admission?: Yes (4) Chronic obstructive pulmonary disease: No SOB, cough, wheeze or sputum -Continue supplemental O2 F/E/N - Heplock, Mg repletion x 2 gm, CC diet as tolerated Ppx - Lovenox 40 BID due to patient BMI Code- Full Dispo - Admit to medical with telemetry Present on Admission?: Yes History of Present Illness Chief Complaint: hyperglycemia Primary Care Provider: Kristal Pham Traci Roman is a 70yo female with history of COPD on home O2, DM, HTN, HLP presenting with hyperglycemia. Patient was seen by her PCP yesterday for routine followup and bloodwork was ordered. She was notified today that her blood sugar was >700 and was instructed to come to the ER. Patient does not check her blood sugar at home. She reports compliance with her Januvia. Yesterday she was having difficulty with ambulation secondary to pain in her h ips and legs requiring help with ambulation. Otherwise she denies fever/chills/CP/palpitations/abdominal pain/nausea/vomiting/diarrhea/constipation/dysuria/weight gain/edema or orthopnea. No additional complaints at this time. Patient lives at home and is taken are of by her . Hypoxic on arrival to 87% on room air. Patient is on 2L of O2 by [place] at baseline and has had acceptable SpO2 on her baseline 2L. Presently 94% ER Course: Lasix 40mg IV, Morphine, Zofran, NSS, Insulin 10u SQ Allergies Allergy/AdvReac Type Severity Reaction Status Date / Time latex Allergy Severe 2ND DEGREE Verified 01/08/21 20:06 BURN FROM BANDAGE adhesive Allergy Intermediate RASH Verified 01/08/21 20:06 Home Medications Medication Instructions Recorded Confirmed Type aspirin [Aspirin Low Dose] 81 mg PO QPM 10/30/18 01/08/21 History atorvastatin [Lipitor] 80 mg PO HS 10/30/18 01/08/21 History cholecalciferol (vitamin D3) 2,000 unit PO QAM 10/30/18 01/08/21 History [Vitamin D3] gabapentin 300 mg PO TID 10/30/18 01/08/21 History quetiapine 50 mg tablet 50 mg PO HS 12/01/19 01/08/21 History cyanocobalamin (vitamin B-12) 1,000 mcg IM MONTHLY 01/08/21 01/08/21 History [Vitamin B-12] lisinopril 20 mg PO QPM 01/08/21 01/08/21 History sitagliptin [Januvia] 100 mg PO QAM 01/08/21 01/08/21 History Past Med/Surg History Medical History (Updated 03/22/20 @ 15:49 by CHARLOTTE Sharma) Anxiety Chronic obstructive pulmonary disease Depression Diabetes mellitus, type 2 NIDDM Glaucoma WELL CONTROLLED H/O defect LEFT ARM Hyperlipidemia Hypertension Peripheral neuropathy BILATERAL FEET Temporomandibular joint disorder NO PROBLEMS RECENTLY. Surgical History History of appendectomy History of cholecystectomy History of colonoscopy History of incision and drainage UMBILICAL ABSCESS History of total shoulder replacement RIGHT Hx of umbilical hernia repair X4 -- WEARS SUPPORT BAND DAILY S/P JALIL-BSO S/P tonsillectomy and adenoidectomy Family History Mother Diabetes mellitus, type 2 Aunt Diabetes mellitus, type 2 Social History (Updated 03/22/20 @ 14:56 by Yessenia M Walters, RN) Smoking Status: Unknown if ever smoked Tobacco Type: Cigarettes Cigarettes Per Day: 2 PPD X 50 YEARS AGO; Second Hand Exposure: Yes; Hx Alcohol Use: No Hx Substance Use: No Preferred Language: Norwegian Communication Ability: Effective [employer]illing [employer] Required: No Beliefs That Will Affect Care: Hinduism Hinduism Beliefs: Congregation Current Living Situation: Spouse current occupational status: retired Feels Safe at Home: Yes Assistive Devices: None and Oxygen - Continuous Review of Systems Review of Systems: All systems reviewed & are unremarkable except as noted in HPI & below Physical Exam Physical Exam: General: patient resting comfortably, NAD, non-toxic in appearance, AA&O x 4 Skin: warm, dry, intact, abdominal scar HEENT: NC/AT, PERRL, EOMI, anicteric sclera, conjunctiva without injection, external ear normal to inspection and nontender, nares patent, moist mucus membranes, dentition intact, no oropharyngeal lesions, neck supple, trachea midline, no LAD, no thyromegaly, no JVD Heart: +S1/S2, regular, +S3 appreciated Lungs: equal air entry bilaterally, no rales/rhonchi/wheezes Abd: +BS, soft, hernias present, soft, NT Ext: warm, 2+ pulses in UE/LE bilaterally, no clubbing/cyanosis or edema, deformity of bilateral shoulders Neuro: nonfocal, patient AA&O x 4, speech intact, no facial droop, moving all extremities on command with equal strength 5/5 Results & Data Results & Data ([facility]) Vital Signs (Past 12 Hours) Vital Signs Temp Pulse Pulse Resp BP BP Pulse Ox 01/08/21 21:07 92 01/08/21 21:06 87 L 01/08/21 20:09 70 18 128/73 95 01/08/21 19:27 36.8 C 105 H 22 132/99 96 Laboratory Results Laboratory Results WBC 7.37 K/uL (4.8-10.8) 01/08/21 19:15 RBC 5.20 M/uL (4.2-5.4) 01/08/21 19:15 Hgb 16.0 g/dL (12.0-16.0) 01/08/21 19:15 Hct 46.4 % (37-47) 01/08/21 19:15 MCV 89.2 fL (80-100) 01/08/21 19:15 MCH 30.8 pg (25-34) 01/08/21 19:15 MCHC 34.5 g/dL (32-36) 01/08/21 19:15 RDW Std Deviation 50.9 fL (36.4-46.3) H 01/08/21 19:15 RDW Coeff of Vikas 15.7 % (11.5-14.5) H 01/08/21 19:15 Plt Count 224 K/uL (130-400) 01/08/21 19:15 MPV 9.8 fL (7.4-10.4) 01/08/21 19:15 Immature Gran % (Auto) 0.1 % 01/08/21 19:15 Neut % (Auto) 65.2 % 01/08/21 19:15 Lymph % (Auto) 23.1 % 01/08/21 19:15 [place] % (Auto) 10.2 % 01/08/21 19:15 Eos % (Auto) 0.9 % 01/08/21 19:15 Baso % (Auto) 0.5 % 01/08/21 19:15 Neut # (Auto) 4.80 K/uL (1.4-6.5) 01/08/21 19:15 Lymph # (Auto) 1.70 K/uL (1.2-3.4) 01/08/21 19:15 [place] # (Auto) 0.75 K/uL (0.11-0.59) H 01/08/21 19:15 Eos # (Auto) 0.07 K/uL (0-0.5) 01/08/21 19:15 Baso # (Auto) 0.04 K/uL (0-0.2) 01/08/21 19:15 Immature Gran # (Auto) 0.01 K/uL (0.00-0.02) 01/08/21 19:15 Sodium 132 mmol/L (136-145) L 01/08/21 20:15 Potassium 3.9 mmol/L (3.5-5.1) 01/08/21 20:15 Chloride 95 mmol/L (98-107) L 01/08/21 20:15 Carbon Dioxide 25 mmol/L (21-32) 01/08/21 20:15 Anion Gap 12.0 (3-11) H 01/08/21 20:15 BUN 18 mg/dl (7-18) 01/08/21 20:15 Creatinine 0.79 mg/dl (0.6-1.2) 01/08/21 20:15 Est Cr Clr Drug Dosing 78.9 ml/min 01/08/21 20:15 Est GFR ( Amer) 88.5 ml/min 01/08/21 20:15 Est GFR (Non-Af Amer) 76.4 ml/min 01/08/21 20:15 BUN/Creatinine Ratio 22.9 (10-20) H 01/08/21 20:15 Glucose 481 mg/dl (70-99) H* 01/08/21 20:15 POC Glucose 423 mg/dl (70-99) H* 01/08/21 23:19 Lactate 0.9 mmol/L (0.4-2.0) 01/08/21 19:35 Calcium 9.9 mg/dl (8.5-10.1) 01/08/21 20:15 Phosphorus 4.5 mg/dl (2.5-4.9) 01/08/21 20:15 Magnesium 1.6 mg/dl (1.8-2.4) L 01/08/21 20:15 Total Bilirubin 0.7 mg/dl (0.2-1) 01/08/21 20:15 AST 18 U/L (15-37) 01/08/21 20:15 ALT 31 U/L (12-78) 01/08/21 20:15 Alkaline Phosphatase 92 U/L (45-117) 01/08/21 20:15 NT-Pro-B Natriuret Pep 1359 pg/ml (0-900) H 01/08/21 20:15 Total Protein 7.4 gm/dl (6.4-8.2) 01/08/21 20:15 Albumin 3.4 gm/dl (3.4-5.0) 01/08/21 20:15 Globulin 4.0 gm/dl (2.5-4.0) 01/08/21 20:15 Albumin/Globulin Ratio 0.9 (0.9-2) 01/08/21 20:15 Beta-Hydroxybutyric Acd 29.88 mg/dl (0.2-2.81) H 01/08/21 20:15 TSH 0.883 uIu/ml (0.300-4.500) 01/08/21 20:15 Urine Color Yellow 01/08/21 19:22 Urine Appearance Clear (Clear) 01/08/21 19:22 Urine pH 5.5 (4.5-7.5) 01/08/21 19:22 Ur Specific [place] 1.033 (1.000-1.030) H 01/08/21 19:22 Urine Protein Negative (Negative) 01/08/21 19:22 Urine Glucose (UA) 3+ (Negative) H 01/08/21 19:22 Urine Ketones 1+ (Negative) H 01/08/21 19:22 Urine Blood Negative (Negative) 01/08/21 19: Urine Nitrite Negative (Negative) 01/08/21 19: Urine Bilirubin Negative (Negative) 01/08/21 19:22 Urine Urobilinogen Negative (Negative) 01/08/21 19:22 Ur Leukocyte Esterase Negative (Negative) 01/08/21 19:22 COVID-19 Eval Order Covid19 at [facility] 01/08/21 20:00 SARS-CoV-2 (PCR) NEGATIVE (Negative) 01/08/21 20:00 Impressions Chest X-Ray 01/08/21 18:59 XR chest 1V portable CLINICAL HISTORY: weakness COMPARISON STUDY: October 08, 2018 FINDINGS: No pneumothorax. No pleural effusion. Diffuse reticular opacities are again seen bilaterally. Minimal tenting of the left hemidiaphragm might represent atelectasis. Cardiac silhouette is prominent. Left mediastinal border is partially obscuring by surrounding opacity. Pulmonary vasculature are indistinct.. Osseous structures: Osteopenia. Degenerative changes of the spine. Orthopedic right shoulder joint. Deformed left shoulder joint which is worsening since prio r study. IMPRESSION: 1. CHF pattern with possible pulmonary edema. Obscured left mediastinal which might represent infiltrate within left upper lung versus other etiology. Further evaluation with CT of of the chest is suggested. Findings were sent to emergency Department. ACT 112: Positive. There are findings on this exam that require communication between the performing entity and the patient following Patient Test Result Information Act ([place] Act 112) guidelines. The above report was generated using voice recognition software. It may contain grammatical, syntax or spelling errors. Electronically signed by: Madeleine Newton DO 01/08/2021 9:12 PM Code Status & VTE Plan VTE Prophylaxis Plan VTE Prophylaxis will be ordered: Yes PG Care Time/CCT Total # of Minutes Spent Total Time Spent with Patient: Total time spent is greater than 50% in coordination of care (as documented) at patient's floor/unit and/or counseling patient: Coding Level of Care Code 68955 Initial Inpt Care Lvl 2 Diagnoses Diabetes mellitus, type 2 E11.9 Diabetes mellitus emt intermediate insulin use: without detention use Diabetes mellitus complication status: without complication Hypertension I10 Hypertension type: essential hypertension Hyperlipidemia E78.5 Hyperlipidemia type: unspecified Chronic obstructive pulmonary disease J44.9 COPD type: unspecified COPD (1) Hypertension Hypertension type: essential hypertension Qualified Code(s): I10 - Essential (primary) hypertension (2) Hyperlipidemia Hyperlipidemia type: unspecified Qualified Code(s): E78.5 - Hyperlipidemia, unspecified (3) Chronic obstructive pulmonary disease COPD type: unspecified COPD Qualified Code(s): J44.9 - Chronic obstructive pulmonary disease, unspecified (4) Diabetes mellitus, type 2 Diabetes mellitus detention insulin use: without detention use Diabetes mellitus complication status: without complication Qualified Code(s): E11.9 - Type 2 diabetes mellitus without complications
[2021-01-08] MEDS: MAGNESIUM SULFATE / D5W 1 GM/100 ML BAG IV SCH ×2 (22:40→23:26)
--- NOTE | 2021-01-08 22:56 | Emergency Department Note ---
History of Present Illness General Chief complaint: Hyperglycemia Stated complaint: BACK PAIN, HYPERGLYCEMIA Source: patient and RN notes reviewed Mode of arrival: ambulatory Limitations: no limitations History of Present Illness Provider complaint: hyperglycemia, back pain Maximum Pain Intensity: 0 This patient is a 70-year-old female who presents emergency department with complaints of elevated blood sugars and mid to low back pain. Patient states that she was seen by her primary care physician yesterday and had routine blood work performed. She was called today and told that her blood sugar was over 700. The patient is a known diabetic but has not had blood sugar testing strips for over a year. She states this was an issue with her supplier. Patient also recently stopped taking her Lasix because it makes her urinate too frequently. She has had some shortness of breath and occasionally wears home oxygen but is not overly compliant. She denies any fevers, chills, chest pain, abdominal pain but is complaining of low back pain. She only uses Tylenol occasionally and sta mariely "I hope you can help me out with that." Patient denies any burning with urination but does admit to frequency. Home Medications Medication Instructions Recorded Confirmed Type aspirin [Aspirin Low Dose] 81 mg PO QPM 10/30/18 01/08/21 History atorvastatin [Lipitor] 80 mg PO HS 10/30/18 01/08/21 History cholecalciferol (vitamin D3) 2,000 unit PO QAM 10/30/18 01/08/21 History [Vitamin D3] gabapentin 300 mg PO TID 10/30/18 01/08/21 History quetiapine 50 mg tablet 50 mg PO HS 12/01/19 01/08/21 History cyanocobalamin (vitamin B-12) 1,000 mcg IM MONTHLY 01/08/21 01/08/21 History [Vitamin B-12] lisinopril 20 mg PO QPM 01/08/21 01/08/21 History sitagliptin [Januvia] 100 mg PO QAM 01/08/21 01/08/21 History Allergies Allergy/AdvReac Type Severity Reaction Status Date / Time latex Allergy Severe 2ND DEGREE Verified 01/08/21 20:06 BURN FROM BANDAGE adhesive Allergy Intermediate RASH Verified 01/08/21 20:06 Past Med/Surg History Medical History (Updated 01/09/21 @ 12:53 by Ree Lanza MD) Anxiety Chronic obstructive pulmonary disease Depression Diabetes mellitus, type 2 NIDDM Glaucoma WELL CONTROLLED H/O defect LEFT ARM Hyperlipidemia Hypertension Peripheral neuropathy BILATERAL FEET Temporomandibular joint disorder NO PROBLEMS RECENTLY. Surgical History History of appendectomy History of cholecystectomy History of colonoscopy History of incision and drainage UMBILICAL ABSCESS History of total shoulder replacement RIGHT Hx of umbilical hernia repair X4 -- WEARS SUPPORT BAND DAILY S/P JALIL-BSO S/P tonsillectomy and adenoidectomy Family History Mother Diabetes mellitus, type 2 Aunt Diabetes mellitus, type 2 Social History Smoking Status: Former smoker Tobacco Type: Cigarettes Cigarettes Per Day: 2 PPD X 50 YEARS AGO; Second Hand Exposure: Yes; Hx Alcohol Use: No Hx Substance Use: No Preferred Language: Brazilian Communication Ability: Effective Electrotherapist Required: No Beliefs That Will Affect Care: None Current Living Situation: Spouse current occupational status: retired Feels Safe at Home: Yes Assistive Devices: Walker Review of Systems See HPI for pertinent positives & negatives. and A total of 10 systems reviewed and were otherwise negative Physical Exam Vital Signs Vital Signs - 24 hr 01/08/21 19:27 01/08/21 20:09 01/08/21 21:06 Temperature 36.8 C Temperature Source Oral Pulse Rate 105 H Pulse Rate [Finger] 70 Respiratory Rate 22 18 Respiratory Effort / Characteristics Non-Labored Non-Labored Respiratory Depth Shallow Normal Respiratory Pattern Gasping Regular Blood Pressure 132/99 Blood Pressure [Right Arm] 128/73 Blood Pressure Mean 110 Blood Pressure Mean [Right Arm] 91 Pulse Oximetry 96 95 87 L Oxygen Delivery Method Nasal Cannula Room Air Room Air Oxygen Flow Rate 2 Sepsis Recent Fever Within 48 Hours No Sepsis New/Unexplained Change in Mental Status No Sepsis Action Taken by Nursing Physician Notified 01/08/21 21:07 Temperature Temperature Source Pulse Rate Pulse Rate [Finger] Respiratory Rate Respiratory Effort / Characteristics Respiratory Depth Respiratory Pattern Blood Pressure Blood Pressure [Right Arm] Blood Pressure Mean Blood Pressure Mean [Right Arm] Pulse Oximetry 92 Oxygen Delivery Method Nasal Cannula Oxygen Flow Rate 2 Sepsis Recent Fever Within 48 Hours Sepsis New/Unexplained Change in Mental Status Sepsis Action Taken by Nursing Vital signs reviewed. General: Chronically ill appearing 70 yo female, in no significant distress. HEENT: No scleral icterus, PERRLA, neck supple. Atraumatic. Cardiovascular: Regular rate and rhythm, no extra sounds. Pulmonary: Clear to auscultation bilaterally, increased work of breathing. Abdomen: Soft, obese, nontender, nondistended, positive bowel sounds. Musculoskeletal: Atraumatic, no peripheral edema. Neurologic: Patient awake alert and oriented x 3 Skin: Warm, dry, no rash Course Administered Medications Acetaminophen (Acetaminophen 325 Mg Tab) 650 mg PO Q4H PRN PRN Reason: Pain or Fever Stop: 02/08/21 00:54 Last Admin: 01/09/21 01:11 Dose: 650 mg Documented by: [id number] Enoxaparin Sodium (Enoxaparin Inj 40 Mg/0.4 Ml Syr) 40 mg SQ Q12H SAAD Stop: 02/08/21 00:59 Last Admin: 01/09/21 01:07 Dose: 40 mg Documented by: [id number] Gabapentin (Gabapentin 300 Mg Cap) 300 mg PO TID SAAD Stop: 02/08/21 08:59 Last Admin: 01/09/21 08:02 Dose: 300 mg Documented by: [id number] Insulin Human Regular 250 (units/ Sodium Chloride) 250 mls @ 5 mls/hr IV .Q24H SAAD; Protocol Stop: 02/08/21 11:59 Last Admin: 01/09/21 12:22 Dose: 5 units/hr, 5 mls/hr Documented by: [id number] Cosigned by: [id number] Ibuprofen (Ibuprofen 200 Mg Tab) 400 mg PO Q6H PRN PRN Reason: Moderate Pain Stop: 02/08/21 00:55 Last Admin: 01/09/21 01:11 Dose: 400 mg Documented by: [id number] Discontinued Medications Furosemide (Furosemide 40 Mg/4 Ml Vial) 40 mg IV NOW STA Stop: 01/08/21 20:59 Last Admin: 01/08/21 21:29 Dose: 40 mg Documented by: [id number] Sodium Chloride (Nss 1000ml) 1,000 mls @ 125 mls/hr IV .Q8H SAAD Stop: 01/09/21 03:14 Last Infusion: 01/09/21 00:23 Dose: 0 mls/hr Documented by: [id number] Admin: 01/08/21 19:56 Dose: 125 mls/hr Documented by: [id number] Sodium Chloride (Nss 1000ml) 500 mls @ 999 mls/hr IV .Q31M ONE Stop: 01/08/21 19:37 Last Infusion: 01/08/21 20:27 Dose: 0 mls/hr Documented by: [id number] Admin: 01/08/21 19:56 Dose: 999 mls/hr Documented by: [id number] Magnesium Sulfate/Dextrose (Magnesium Sulfate / D5w) 1 gm in 100 mls @ 200 mls/hr IV Q30M SAAD Stop: 01/08/21 23:16 Last Infusion: 01/09/21 00:23 Dose: 0 mls/hr Documented by: [id number] Admin: 01/08/21 23:26 Dose: 200 mls/hr Documented by: [id number] Infusion: 01/08/21 23:10 Dose: 200 mls/hr Documented by: [id number] Admin: 01/08/21 22:40 Dose: 200 mls/hr Documented by: [id number] Insulin Human Regular 10 units (/ Syringe) 10 mls @ 30 mls/min IV NOW ONE Stop: 01/08/21 22:31 Last Admin: 01/08/21 23:22 Dose: 30 mls/min Documented by: [id number] Cosigned by: [id number] Insulin Human Regular 10 units (/ Syringe) 10 mls @ 5 mls/min IV ONE ONE Stop: 01/09/21 08:31 Last Admin: 01/09/21 09:03 Dose: 5 mls/min Documented by: [id number] Cosigned by: [id number] Insulin Human Regular 10 units (/ Syringe) 10 mls @ 5 mls/min IV ONE ONE Stop: 01/09/21 12:01 Last Admin: 01/09/21 12:22 Dose: 5 mls/min Documented by: [id number] Cosigned by: [id number] Insulin Aspart (Insulin Aspart Per Unit) 10 units SC NOW STA Stop: 01/08/21 22:21 Last Admin: 01/08/21 22:43 Dose: 10 units Documented by: [id number] Cosigned by: [id number] Insulin Aspart (Insulin Aspart 100 Units/Ml 3 Ml Pen) 0 units SC ACHS SAAD Stop: 02/08/21 01:59 Last Admin: 01/09/21 09:03 Dose: 27 units Documented by: [id number] Cosigned by: [id number] Admin: 01/09/21 01:08 Dose: 11 units Documented by: [id number] Cosigned by: [id number] Insulin Aspart (Insulin Aspart 100 Units/Ml 3 Ml Pen) 0 units SC NOW ONE Stop: 01/09/21 12:31 Last Admin: 01/09/21 12:29 Dose: 5 units Documented by: [id number] Cosigned by: [id number] Insulin Glargine (Insulin Glargine Solostar 100 Units/Ml 3 Ml Pen) 15 units SC BID SAAD Stop: 02/08/21 00:59 Last Admin: 01/09/21 01:07 Dose: 15 units Documented by: [id number] Cosigned by: [id number] Insulin Glargine (Insulin Glargine Solostar 100 Units/Ml 3 Ml Pen) 20 units SC NOW ONE Stop: 01/09/21 08:01 Last Admin: 01/09/21 08:02 Dose: 20 units Documented by: [id number] Cosigned by: [id number] Insulin Human Regular (Novolin-R Insulin Per Unit Charge) 10 units SC NOW STA Stop: 01/08/21 19:08 Last Admin: 01/08/21 20:06 Dose: 10 units Documented by: [id number] Cosigned by: [id number] Miscellaneous Information (Pharmacy Glycemic Mgmt Consult) 1 ea N/A NOW STA Stop: 01/09/21 07:33 Last Admin: 01/09/21 08:03 Dose: 1 ea Documented by: [id number] Morphine Sulfate (Morphine Sulfate 4 Mg/Ml 1 Ml Carp\\Vial) 4 mg IV NOW STA Stop: 01/08/21 19:09 Last Admin: 01/08/21 19:56 Dose: 4 mg Documented by: [id number] Ondansetron HCl (Ondansetron Inj 2 Mg/Ml 2 Ml Vial) 4 mg IV NOW STA Stop: 01/08/21 19:09 Last Admin: 01/08/21 19:55 Dose: 4 mg Documented by: [id number] Potassium Chloride (Potassium Chloride Crtab 20 Meq Tabcr) 40 meq PO NOW STA Stop: 01/08/21 22:21 Last Admin: 01/08/21 22:38 Dose: 40 meq Documented by: [id number] Potassium Chloride (Potassium Chloride Crtab 20 Meq Tabcr) 40 meq PO NOW ONE Stop: 01/09/21 08:31 Last Admin: 01/09/21 09:06 Dose: 40 meq Documented by: [id number] Medical Decision Making Differential Diagnosis Infection, dehydration, metabolic abnormality, hypo/hyperglycemia, electrolyte disturbance, anemia, hypoxia, cardiac sources, intracerebral event, toxicologic, neurologic, as well as other pathologies. Medical Records Attestation: I reviewed the patient's medical records. Home Medications Current Medication List: was personally reviewed by me Laboratory Data Attestation: I reviewed the patient's lab results. Result diagrams: 01/09/21 07:38 01/09/21 07:38 Lab Results 01/08/21 01/08/21 01/08/21 Range/Units 19:07 19:15 19:15 WBC 7.37 (4.8-10.8) K/uL RBC 5.20 (4.2-5.4) M/uL Hgb 16.0 (12.0-16.0) g/dL Hct 46.4 (37-47) % MCV 89.2 (80-100) fL MCH 30.8 (25-34) pg MCHC 34.5 (32-36) g/dL RDW Std Deviation 50.9 H (36.4-46.3) fL RDW Coeff of Vikas 15.7 H (11.5-14.5) % Plt Count 224 (130-400) K/uL MPV 9.8 (7.4-10.4) fL Immature Gran % (Auto) 0.1 % Neut % (Auto) 65.2 % Lymph % (Auto) 23.1 % [place] % (Auto) 10.2 % Eos % (Auto) 0.9 % Baso % (Auto) 0.5 % Neut # (Auto) 4.80 (1.4-6.5) K/uL Lymph # (Auto) 1.70 (1.2-3.4) K/uL [place] # (Auto) 0.75 H (0.11-0.59) K/uL Eos # (Auto) 0.07 (0-0.5) K/uL Baso # (Auto) 0.04 (0-0.2) K/uL Immature Gran # (Auto) 0.01 (0.00-0.02) K/uL Sodium Cancelled Potassium Cancelled Chloride Cancelled Carbon Dioxide Cancelled Anion Gap Cancelled BUN Cancelled Creatinine Cancelled Est Cr Clr Drug Dosing Cancelled Est GFR ( Amer) Cancelled Est GFR (Non-Af Amer) Cancelled BUN/Creatinine Ratio Cancelled Glucose Cancelled POC Glucose 516 H* (70-99) mg/dl Lactate (0.4-2.0) mmol/L Calcium Cancelled Phosphorus Cancelled Magnesium Cancelled Total Bilirubin Cancelled AST Cancelled ALT Cancelled Alkaline Phosphatase Cancelled NT-Pro-B Natriuret Pep (0-900) pg/ml Total Protein Cancelled Albumin Cancelled Globulin Cancelled Albumin/Globulin Ratio Cancelled Beta-Hydroxybutyric Acd (0.2-2.81) mg/dl TSH Cancelled Urine Color Urine Appearance (Clear) Urine pH (4.5-7.5) Ur Specific [place] (1.000-1.030) Urine Protein (Negative) Urine Glucose (UA) (Negative) Urine Ketones (Negative) Urine Blood (Negative) Urine Nitrite (Negative) Urine Bilirubin (Negative) Urine Urobilinogen (Negative) Ur Leukocyte Esterase (Negative) COVID-19 Eval Order SARS-CoV-2 (PCR) (Negative) 01/08/21 01/08/21 01/08/21 Range/Units 19:22 19:35 20:00 WBC (4.8-10.8) K/uL RBC (4.2-5.4) M/uL Hgb (12.0-16.0) g/dL Hct (37-47) % MCV (80-100) fL MCH (25-34) pg MCHC (32-36) g/dL RDW Std Deviation (36.4-46.3) fL RDW Coeff of Vikas (11.5-14.5) % Plt Count (130-400) K/uL MPV (7.4-10.4) fL Immature Gran % (Auto) % Neut % (Auto) % Lymph % (Auto) % [place] % (Auto) % Eos % (Auto) % Baso % (Auto) % Neut # (Auto) (1.4-6.5) K/uL Lymph # (Auto) (1.2-3.4) K/uL [place] # (Auto) (0.11-0.59) K/uL Eos # (Auto) (0-0.5) K/uL Baso # (Auto) (0-0.2) K/uL Immature Gran # (Auto) (0.00-0.02) K/uL Sodium Potassium Chloride Carbon Dioxide Anion Gap BUN Creatinine Est Cr Clr Drug Dosing Est GFR ( Amer) Est GFR (Non-Af Amer) BUN/Creatinine Ratio Glucose POC Glucose (70-99) mg/dl Lactate 0.9 (0.4-2.0) mmol/L Calcium Phosphorus Magnesium Total Bilirubin AST ALT Alkaline Phosphatase NT-Pro-B Natriuret Pep (0-900) pg/ml Total Protein Albumin Globulin Albumin/Globulin Ratio Beta-Hydroxybutyric Acd (0.2-2.81) mg/dl TSH Urine Color Yellow Urine Appearance Clear (Clear) Urine pH 5.5 (4.5-7.5) Ur Specific [place] 1.033 H (1.000-1.030) Urine Protein Negative (Negative) Urine Glucose (UA) 3+ H (Negative) Urine Ketones 1+ H (Negative) Urine Blood Negative (Negative) Urine Nitrite Negative (Negative) Urine Bilirubin Negative (Negative) Urine Urobilinogen Negative (Negative) Ur Leukocyte Esterase Negative (Negative) COVID-19 Eval Order Covid19 at [facility] SARS-CoV-2 (PCR) (Negative) 01/08/21 01/08/21 01/08/21 Range/Units 20:00 20:15 20:15 WBC (4.8-10.8) K/uL RBC (4.2-5.4) M/uL Hgb (12.0-16.0) g/dL Hct (37-47) % MCV (80-100) fL MCH (25-34) pg MCHC (32-36) g/dL RDW Std Deviation (36.4-46.3) fL RDW Coeff of Vikas (11.5-14.5) % Plt Count (130-400) K/uL MPV (7.4-10.4) fL Immature Gran % (Auto) % Neut % (Auto) % Lymph % (Auto) % [place] % (Auto) % Eos % (Auto) % Baso % (Auto) % Neut # (Auto) (1.4-6.5) K/uL Lymph # (Auto) (1.2-3.4) K/uL [place] # (Auto) (0.11-0.59) K/uL Eos # (Auto) (0-0.5) K/uL Baso # (Auto) (0-0.2) K/uL Immature Gran # (Auto) (0.00-0.02) K/uL Sodium 132 L Potassium 3.9 Chloride 95 L Carbon Dioxide 25 Anion Gap 12.0 H BUN 18 Creatinine 0.79 Est Cr Clr Drug Dosing 78.9 Est GFR ( Amer) 88.5 Est GFR (Non-Af Amer) 76.4 BUN/Creatinine Ratio 22.9 H Glucose 481 H* POC Glucose (70-99) mg/dl Lactate (0.4-2.0) mmol/L Calcium 9.9 Phosphorus 4.5 Magnesium 1.6 L Total Bilirubin 0.7 AST 18 ALT 31 Alkaline Phosphatase 92 NT-Pro-B Natriuret Pep 1359 H (0-900) pg/ml Total Protein 7.4 Albumin 3.4 Globulin 4.0 Albumin/Globulin Ratio 0.9 Beta-Hydroxybutyric Acd 29.88 H (0.2-2.81) mg/dl TSH 0.883 Urine Color Urine Appearance (Clear) Urine pH (4.5-7.5) Ur Specific [place] (1.000-1.030) Urine Protein (Negative) Urine Glucose (UA) (Negative) Urine Ketones (Negative) Urine Blood (Negative) Urine Nitrite (Negative) Urine Bilirubin (Negative) Urine Urobilinogen (Negative) Ur Leukocyte Esterase (Negative) COVID-19 Eval Order SARS-CoV-2 (PCR) NEGATIVE (Negative) 01/08/21 Range/Units 21:04 WBC (4.8-10.8) K/uL RBC (4.2-5.4) M/uL Hgb (12.0-16.0) g/dL Hct (37-47) % MCV (80-100) fL MCH (25-34) pg MCHC (32-36) g/dL RDW Std Deviation (36.4-46.3) fL RDW Coeff of Vikas (11.5-14.5) % Plt Count (130-400) K/uL MPV (7.4-10.4) fL Immature Gran % (Auto) % Neut % (Auto) % Lymph % (Auto) % [place] % (Auto) % Eos % (Auto) % Baso % (Auto) % Neut # (Auto) (1.4-6.5) K/uL Lymph # (Auto) (1.2-3.4) K/uL [place] # (Auto) (0.11-0.59) K/uL Eos # (Auto) (0-0.5) K/uL Baso # (Auto) (0-0.2) K/uL Immature Gran # (Auto) (0.00-0.02) K/uL Sodium Potassium Chloride Carbon Dioxide Anion Gap BUN Creatinine Est Cr Clr Drug Dosing Est GFR ( Amer) Est GFR (Non-Af Amer) BUN/Creatinine Ratio Glucose POC Glucose 438 H* (70-99) mg/dl Lactate (0.4-2.0) mmol/L Calcium Phosphorus Magnesium Total Bilirubin AST ALT Alkaline Phosphatase NT-Pro-B Natriuret Pep (0-900) pg/ml Total Protein Albumin Globulin Albumin/Globulin Ratio Beta-Hydroxybutyric Acd (0.2-2.81) mg/dl TSH Urine Color Urine Appearance (Clear) Urine pH (4.5-7.5) Ur Specific [place] (1.000-1.030) Urine Protein (Negative) Urine Glucose (UA) (Negative) Urine Ketones (Negative) Urine Blood (Negative) Urine Nitrite (Negative) Urine Bilirubin (Negative) Urine Urobilinogen (Negative) Ur Leukocyte Esterase (Negative) COVID-19 Eval Order SARS-CoV-2 (PCR) (Negative) Imaging Data Radiologist's Impression: Chest X-Ray 01/08/21 18:59 XR chest 1V portable CLINICAL HISTORY: weakness COMPARISON STUDY: October 08, 2018 FINDINGS: No pneumothorax. No pleural effusion. Diffuse reticular opacities are again seen bilaterally. Minimal tenting of the l eft hemidiaphragm might represent atelectasis. Cardiac silhouette is prominent. Left mediastinal border is partially obscuring by surrounding opacity. Pulmonary vasculature are indistinct.. Osseous structures: Osteopenia. Degenerative changes of the spine. Orthopedic right shoulder joint. Deformed left shoulder joint which is worsening since prior study. IMPRESSION: 1. CHF pattern with possible pulmonary edema. Obscured left mediastinal which might represent infiltrate within left upper lung versus other etiology. Further evaluation with CT of of the chest is suggested. Findings were sent to emergency Department. ACT 112: Positive. There are findings on this exam that require communication between the performing entity and the patient following Patient Test Result Information Act ([place] Act 112) guidelines. The above report was generated using voice recognition software. It may contain grammatical, syntax or spelling errors. Electronically signed by: Madeleine Newton DO 01/08/2021 9:12 PM ECG Data Attestation: I personally reviewed and interpreted this ECG as follows: Indication: + SOB/dyspnea Rate (beats per minute): 104 ECG Intervals/blocks: + IVCD and + Prolonged QT (524) ECG [place]: + Normal ECG ST segments: + Normal ST segments and + repolarization abnormalities ECG Findings: + Other (no PVC, no PAC) Blood Pressure Blood Pressure Findings: Normal blood pressure Blood Pressure Disposition: did not require urgent referral MDM Narrative This patient was evaluated and appeared to be in no significant distress. IV access was obtained and laboratory work was drawn. An order for cardiac monitoring was placed and the patient is noted to be in a sinus tachycardia 104 bpm. Patient was initially hydrated with normal saline solution with the thought that she may be acidotic from her hyperglycemia however chest x-ray reveals congestive changes. IV fluids were turned off and the patient was given 40 mg of IV Lasix. Patient's glucose was noted to be just over 400. She was given 10 units of subcutaneous regular insulin. UA is not indicative of infection. There is no evidence of acute ischemia on EKG. Patient is oxygen requiring currently to maintain saturations above 90%. Case was discussed with the hospitalist service who will evaluate the patient for admission and further management. Patient is aware of the plan and agrees. Impression & Plan CHF (congestive heart failure), Hyperglycemia due to diabetes mellitus, Obesity, Back pain Discharge Plan Visit Data Chief Complaint: Hyperglycemia Stated Complaint: BACK PAIN, HYPERGLYCEMIA ED Provider: Ree Lanza Discharge Problem: CHF (congestive heart failure), Hyperglycemia due to diabetes mellitus, Obesity, Back pain Patient Disposition: Admitted As Inpatient Discharge Instructions Interventions: ED Discharge Assessment Last Done: 01/09/21 00:16 Discharge Problem: CHF (congestive heart failure) Qualifiers: Heart failure type: unspecified Heart failure chronicity: acute on chronic Qualified Code(s): I50.9 - Heart failure, unspecified Obesity Qualifiers: Obesity type: unspecified obesity type Obesity classification: adult class 2 (BMI 35 - 39.9) Serious obesity comorbidity presence: with serious comorbidity Body mass index: BMI 38.0-38.9 Qualified Code(s): E66.01 - Morbid (severe) obesity due to excess calories Back pain Qualifiers: Back pain location: low back pain Chronicity: chronic Back pain laterality: midline Sciatica presence: without sciatica Qualified Code(s): M54.5 - Low back pain
[2021-01-09] MEDS ORDERED: DEXTROSE 50% 50 ML SYRINGE IV PRN (00:20)
[2021-01-09] MEDS ORDERED: GLUCAGON FOR INJ 1 MG VIAL SQ PRN (00:20)
[2021-01-09] MEDS ORDERED: CARBOHYDRATES FOR HYPOGLYCEMIA PO PRN (00:20)
[2021-01-09] MEDS ORDERED: GLUCOSE 10 TABS/TUBE PO PRN (00:20)
[2021-01-09] MEDS ORDERED: GLUCOSE 40% GEL 15 GM TUBE PO PRN (00:20)
[2021-01-09] MEDS ORDERED: ACETAMINOPHEN 325 MG TAB PO PRN (00:55)
[2021-01-09] MEDS ORDERED: IBUPROFEN 200 MG TAB PO PRN (00:56)
[2021-01-09 01:00] LABS: Base Excess VBG 4.7 mEq/L; Oxygen Saturation VBG 62.1 %; pH VBG 7.39 (7.36-7.41)
[2021-01-09] MEDS ORDERED: INSULIN GLARGINE SOLOSTAR 100 UNITS/ML 3 ML PEN SC SCH (01:00)
[2021-01-09] MEDS: ENOXAPARIN INJ 40 MG/0.4 ML SYR SQ SCH ×2 (01:07→17:28)
[2021-01-09] MEDS: INSULIN ASPART 100 UNITS/ML 3 ML PEN SC SCH ×5 (01:08→21:21)
[2021-01-09 01:26] LABS: BUN Creatinine Ratio 19.4 (10-20); Creatinine Clr Calc Pharmacy 63.7 ml/min; Est GFR (African American) 71.7 ml/min; Est GFR (Non-African American) 61.9 ml/min; Potassium 3.8 mmol/L (3.5-5.1)
[2021-01-09 01:38] LABS: Beta-Hydroxybutyrate 7.55 mg/dl (0.2-2.81)
[2021-01-09] MEDS ORDERED: MICONAZOLE NITRATE POWDER 43 GM EXT PRN (03:34)
[2021-01-09] MEDS ORDERED: PHARMACY GLYCEMIC MGMT CONSULT STA (07:32)
--- NOTE | 2021-01-09 07:37 | Electrocardiogram Report ---
Test Reason : Blood Pressure : / mmHG Vent. Rate : 073 BPM Atrial Rate : 073 BPM P-R Int : 156 ms QRS Dur : 108 ms QT Int : 398 ms P-R-T Axes : 070 130 153 degrees QTc Int : 438 ms Poor data quality, interpretation may be adversely affected Normal sinus rhythm Possible Right ventricular hypertrophy Non-specific intra-ventricular conduction delay Abnormal ECG When compared with ECG of 22-OCT-2019 03:43, (RBBB and left posterior fascicular block) is no longer Present Confirmed by Landon Malcolm ([id number]) on 01/09/2021 7:37:39 AM Referred By: REFERRED SELF Confirmed By:Michael Malcolm
--- NOTE | 2021-01-09 07:38 | Electrocardiogram Report ---
Test Reason : Blood Pressure : / mmHG Vent. Rate : 104 BPM Atrial Rate : 078 BPM P-R Int : 144 ms QRS Dur : 138 ms QT Int : 398 ms P-R-T Axes : 076 131 151 degrees QTc Int : 523 ms Sinus rhythm with Premature supraventricular complexes Non-specific intra-ventricular conduction delay T wave abnormality, consider inferolateral ischemia Abnormal ECG When compared with ECG of 08-JAN-2021 19:02, (unconfirmed) Premature supraventricular complexes are now Present Confirmed by Landon Malcolm ([id number]) on 01/09/2021 7:38:29 AM Referred By: REFERRED SELF Confirmed By:Michael Malcolm
[2021-01-09] MEDS ORDERED: INSULIN GLARGINE SOLOSTAR 100 UNITS/ML 3 ML PEN SC ONE (08:00)
[2021-01-09] MEDS: GABAPENTIN 300 MG CAP PO SCH ×3 (08:02→20:13)
[2021-01-09 08:09] LABS: Basophils # (auto) 0.03 K/uL (0-0.2); Basophils % (auto) 0.4 %; Eosinophils # (auto) 0.05 K/uL (0-0.5); Eosinophils % (auto) 0.6 %; Hematocrit (blood only) 46.6 % (37-47); Hemoglobin 15.5 g/dL (12.0-16.0); Immature Granulocytes # (auto) 0.02 K/uL (0.00-0.02); Immature Granulocytes % (auto) 0.2 %; Lymphocytes # (auto) 1.72 K/uL (1.2-3.4); Lymphocytes % (auto) 21.3 %; Mean Corpuscular Hemoglobin 30.5 pg (25-34); Mean Corpuscular Hgb Conc 33.3 g/dL (32-36); Mean Corpuscular Volume 91.7 fL (80-100); Mean Platelet Volume 10.4 fL (7.4-10.4); Monocytes # (auto) 0.88 K/uL (0.11-0.59); Monocytes % (auto) 10.9 %; Neutrophils # (auto) 5.38 K/uL (1.4-6.5); Neutrophils % (auto) 66.6 %; Platelet Count 291 K/uL (130-400); RDW Coefficient of Variation 15.9 % (11.5-14.5); RDW Standard Deviation 53.2 fL (36.4-46.3); Red Blood Count 5.08 M/uL (4.2-5.4); White Blood Count 8.08 K/uL (4.8-10.8)
[2021-01-09] MEDS ORDERED: INSULIN HUMAN REGULAR IV BOLUS 10 UNITS in SYRINGE 0 ML IV ONE ×2 (08:30→12:00)
[2021-01-09] MEDS ORDERED: PHARMACY GLYCEMIC MGMT CONSULT PRN (08:30)
[2021-01-09] MEDS ORDERED: POTASSIUM CHLORIDE CRTAB 20 MEQ TABCR PO ONE (08:30)
[2021-01-09 08:44] LABS: BUN Creatinine Ratio 21.8 (10-20); Calcium 9.8 mg/dl (8.5-10.1); Creatinine Clr Calc Pharmacy 68.2 ml/min; Est GFR (African American) 74.6 ml/min; Est GFR (Non-African American) 64.4 ml/min; Potassium 4.4 mmol/L (3.5-5.1)
--- NOTE | 2021-01-09 08:56 | XRay Report ---
XR hips JESUS 1v w pelvis HISTORY: 70 years-old Female pain acute bilateral hip pain status post fall COMPARISON: CT abdomen and pelvis 10/22/2019 TECHNIQUE: AP view the pelvis with 2 views of the hips FINDINGS: Moderate left greater than right bilateral hip osteoarthritis. Demineralized appearance of the bones. No acute fracture, dislocation or avascular necrosis. Pelvic basin phleboliths. Moderate fecal reten tion. IMPRESSION: No acute fracture. ACT 112: Negative or not required by law. The above report was generated using voice recognition software. It may contain grammatical, syntax o r spelling errors. Electronically signed by: Dre Burleson M.D. 01/09/2021 8:54 AM
[2021-01-09 08:57] LABS: Beta-Hydroxybutyrate 19.2 mg/dl (0.2-2.81)
[2021-01-09] MEDS ORDERED: FUROSEMIDE 40 MG in SYRINGE 0 ML IV SCH (09:00)
--- NOTE | 2021-01-09 10:50 | Hospitalist Progress Note ---
Date of Service January 09, 2021 Assessment & Plan (1) Diabetes mellitus, type 2: 70yo female with history of DM presenting with hyperglycemia. Patient is on Januvia outpatient. Does not routinely check her blood sugars. Reports compliance with her home medications. Last HgbA1C = 7.2 on 10/23/19. BSG on arrival = 481 on BMP. Fingersticks 516 --> 438 --> 423. Patient had a small anion gap at 12, however this has resolved. Finger blood sugars are ranging from 285-375 -Check VBG and repeat chemistry to evaluate pH and anion gap Glycemic control is on consult. Patient will be on insulin drip. -will continue to trend her blood sugars. -Continue Gabapentin 300mg po TID A1C: remains pending (2) Hypertension: Chronic. Stable. Presently 136/99 -Continue Lisinopril 20mg po daily (3) Hyperlipidemia: Chronic -Continue Atorvastatin 80mg po qHS (4) Chronic obstructive pulmonary disease: No SOB, cough, wheeze or sputum -Continue supplemental O2 (2L NC) Ppx - Lovenox 40 BID due to patient BMI Code- Full Admission and Anticipated Discharge Date Admission Date: January 08, 2021 Subjective Patient reports she does not quite understand why her blood sugars were so high. She reports she has not been checking her blood sugars at home as she ran out of test strips and given how well she felt, she did not feel the need to test herself. She reports she has never been on insulin at home. She has no active complaints. Review of Systems Review of Systems: All systems reviewed & are unremarkable except as noted in HPI & below Physical Exam Physical Exam: General: patient resting comfortably, NAD, non-toxic in appearance, AA&O x 4 Skin: warm, dry, intact, abdominal scar HEENT: NC/AT, PERRL, EOMI, anicteric sclera, conjunctiva without injection, external ear normal to inspection and nontender, nares patent, moist mucus membranes, dentition intact, no oropharyngeal lesions, neck supple, trachea midline, no LAD, no thyromegaly, no JVD Heart: +S1/S2, regular, +S3 appreciated Lungs: equal air entry bilaterally, no rales/rhonchi/wheezes Abd: +BS, soft, hernias present, soft, NT Ext: warm, 2+ pulses in UE/LE bilaterally, no clubbing/cyanosis or edema, deformity of bilateral shoulders Neuro: nonfocal, patient AA&O x 4, speech intact, no facial droop, moving all extremities on command with equal strength 5/5 Results & Data Results & Data ([facility]) Vital Signs (Past 12 Hours) Vital Signs Temp Pulse Pulse Resp BP Pulse Ox 01/09/21 07:44 88 01/09/21 07:41 36.7 C 104 H 18 101/69 94 01/09/21 03:56 36.9 C 84 18 106/72 93 01/09/21 03:28 79 01/09/21 02:13 36.4 C L 92 H 22 166/93 H 96 01/09/21 00:33 36.4 C L 92 H 20 166/93 H 96 01/08/21 23:01 104 H 16 136/99 94 PG Care Time/CCT Total # of Minutes Spent Total Time Spent with Patient: Total time spent is greater than 50% in coordination of care (as documented) at patient's floor/unit and/or counseling patient: Coding Level of Care Code 61121 Subseq Hosp Care Lvl 2 Diagnoses Diabetes mellitus, type 2 E11.9 Diabetes mellitus complication status: without complication Diabetes mellitus alf insulin use: without alf use Hypertension I10 Hypertension type: essential hypertension Hyperlipidemia E78.5 Hyperlipidemia type: unspecified Chronic obstructive pulmonary disease J44.9 COPD type: unspecified COPD (1) Diabetes mellitus, type 2 Diabetes mellitus complication status: without complication 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
--- NOTE | 2021-01-09 10:59 | Pharmacy Report ---
Pharmacy Glycemic Short Note 2 - Date of Service January 09, 2021 - Glycemic Short BSG Results (Last 24 hours): 01/08/21 01/08/21 01/08/21 19:07 19:15 20:15 Glucose Cancelled 481 H* POC Glucose 516 H* 01/08/21 01/08/21 01/09/21 21:04 23:19 00:31 Glucose POC Glucose 438 H* 423 H* 368 H* 01/09/21 01/09/21 01/09/21 00:46 07:31 07:32 Glucose 361 H* POC Glucose 367 H* 375 H* 01/09/21 07:38 Glucose 335 H* POC Glucose OUTPATIENT ANTIDIABETIC REGIMEN: * Januvia 100 mg daily ASSESSMENT: * Traci Roman is a 70 y/o F with a PMH of T2DM on Januvia 100 mg daily. * She is admitted with hyperglycemia. BSGs have been 516- 438 mg/dL on admission. Overnight BSG was 368 mg/dL. Morning BSG was 367 mg/dL. * Patient received 10 units of IV and SQ regular insulin yesterday as well as 15 units of Lantus around 1 am. * Give additional 20 units this morning of Lantus to equal weight-based stress of 2 Lantus (total of 35 units). Start weight-based stress of 3 Novolog. * IV insulin bolus for AM blood sugar. Reached out to provider to have some potassium supplementation due to K of 3.8. PLAN FOR INPATIENT GLYCEMIC CONTROL: * Hold outpatient oral diabetes medications * Basal insulin * Lantus 35 units SQ x 1 then 18 units BID (26 units if Blood sugar > 180 mg/dL). * Bolus insulin * NovoLog per scale ACHS or Q6hrs while NPO * Goal Range: Low 110 mg/dL - High 140 mg/dL * Correction Factor: 15 mg/dL/unit * Nutritional / Prandial insulin per carb ratio of 1 unit per 5 grams CHO consumed PLAN FOR DISCHARGE: * TBD
[2021-01-09] MEDS: INSULIN REGULAR 250 UNITS in SODIUM CHLORIDE 0.9% 247.5 ML IV SCH (12:22)
[2021-01-09] MEDS ORDERED: INSULIN ASPART 100 UNITS/ML 3 ML PEN SC ONE (12:30)
[2021-01-09] MEDS: QUEtiapine FUMARATE 25 MG TABLET PO SCH (20:13)
[2021-01-09] MEDS: ASPIRIN 81 MG ECTAB PO SCH (20:13)
[2021-01-09] MEDS: ATORVASTATIN 40 MG TAB PO SCH (20:13)
[2021-01-09] MEDS: DOCUSATE SODIUM/SENNA 50/8.6MG TAB PO SCH (20:14)
[2021-01-09] MEDS ORDERED: KETOROLAC TROMETHAMINE 10 MG TABLET PO PRN (20:24)
[2021-01-09] MEDS ORDERED: lisinopril 20 MG TAB PO SCH (21:00)
[2021-01-09] MEDS ORDERED: SODIUM CHLORIDE 0.9% 1000ML 1,000 ML IV ONE (23:55)
[2021-01-10] MEDS ORDERED: OLANZapine 10 MG/2.1 ML SDV IM STA (01:22)
[2021-01-10] MEDS ORDERED: OLANZapine 10 MG/2.1 ML SDV IM ONE (01:28)
[2021-01-10 03:42] LABS: BUN Creatinine Ratio 20.1 (10-20); Calcium 9.5 mg/dl (8.5-10.1); Creatinine Clr Calc Pharmacy 34.1 ml/min; Est GFR (African American) 32.7 ml/min; Est GFR (Non-African American) 28.2 ml/min; Potassium 5.6 mmol/L (3.5-5.1)
--- NOTE | 2021-01-10 04:43 | Communication Note ---
Date of Service: January 10, 2021 Called regarding patient's blood pressure 50s/30s. In short, patient was admitted for hyperglycemia with mildly elevated gap and +BHB requiring insulin gtt. BSGs have been improving since admission. This evening patient's BP low on routine check. At that time patient was also noted to be confused and combative, shouting curse words and saying that we were "going to kill her and hurt her". I arrived at bedside and patient was resting on her side, but any attempt made by myself to question her or examine her was met with loud, aggressive language and flailing. Due to patient's continued low BPs started bolus 1L NSS however patient's IV was small gauge and could only tolerate 100cc/hr. Patient would not allow us to place another IV and was continuing to act confused and agitated, so she was given Zyprexa 5mg IM. Shortly thereafter IV was able to be placed and bolus given. Repeat BP 80s/50s. In further discussion with nursing patient was acting in an odd way last evening in the ER as well. She does not have a history of dementia per record, and other than BSGs does not have other metabolic derangements that would account for her presentation. AMS thought to be delirium; hypotension suspected to be secondary to diuretics.
[2021-01-10] MEDS: ENOXAPARIN INJ 40 MG/0.4 ML SYR SQ SCH ×2 (06:36→20:12)
[2021-01-10 07:16] LABS: Estimated Average Glucose 392 mg/dl; Hemoglobin A1C 15.3 % (4.5-5.6)
[2021-01-10] MEDS ORDERED: SODIUM CHLORIDE 0.9% 1000ML 1,000 ML IV ONE ×2 (08:03→11:48)
[2021-01-10] MEDS ORDERED: SODIUM POLYSTYRENE SULFONATE 15G/60ML SUSP PO ONE (08:30)
[2021-01-10] MEDS ORDERED: SODIUM POLYSTYRENE 15 GM/60 ML 500ML BOTTLE PO ONE (08:30)
[2021-01-10 08:57] LABS: Basophils # (auto) 0.03 K/uL (0-0.2); Basophils % (auto) 0.3 %; Eosinophils # (auto) 0.05 K/uL (0-0.5); Eosinophils % (auto) 0.5 %; Hematocrit (blood only) 43.6 % (37-47); Hemoglobin 14.6 g/dL (12.0-16.0); Immature Granulocytes # (auto) 0.03 K/uL (0.00-0.02); Immature Granulocytes % (auto) 0.3 %; Lymphocytes # (auto) 1.23 K/uL (1.2-3.4); Mean Corpuscular Hemoglobin 31.1 pg (25-34); Monocytes # (auto) 1.03 K/uL (0.11-0.59); Monocytes % (auto) 10.9 %; Neutrophils # (auto) 7.11 K/uL (1.4-6.5); Platelet Count 265 K/uL (130-400); RDW Coefficient of Variation 16.4 % (11.5-14.5); RDW Standard Deviation 55.1 fL (36.4-46.3); Red Blood Count 4.69 M/uL (4.2-5.4); White Blood Count 9.48 K/uL (4.8-10.8)
[2021-01-10 09:02] LABS: Mean Corpuscular Hgb Conc 33.5 g/dL (32-36)
[2021-01-10 09:10] LABS: Base Excess VBG 0.6 mEq/L; Oxygen Saturation VBG 74.7 %; pH VBG 7.39 (7.36-7.41)
--- NOTE | 2021-01-10 09:17 | Hospitalist Progress Note ---
Date of Service January 10, 2021 Assessment & Plan (1) Shock: Patient severely volume contracted on exam thus hypovolemia likely the largest culprit. Cannot rule out early septic shock thus blood cx's obtained. Echo ordered to rule out LV or RV dysfunction contributing. Cortisol level wnl thus no evidence of adrenal shock. She is s/p 3+ Liters of fluid since the middle of the night without significant response in her BPs. Thus, I spoke with Dr Dang from ICU who accepted the patient to the ICU for pressors and ongoing management. Procalcitonin & lactate both normal making sepsis unlikely but still cannot rule it out. Consider empiric antibiotics while awaiting blood cx's. (2) ATN (acute tubular necrosis): 2nd shock. IVF, BP support via pressors. Serial BMPs. (3) Hyperkalemia: 2nd to EYAD/ATN. Kayexalate 15gm x 1. IV fluids. BP support to improve renal perfusion. Serial BMPs. (4) Encephalopathy: Pt's reports she has been confused for 3-4 weeks. Etiology? Subacute strokes? Elevated ammonia level? Hyperglycemia due to poor diabetic compliance? Medications? other? When more stable will obtain MRI brain. In meantime check ammonia level in am. (5) Chronic respiratory failure with hypoxia: on home O2. stable at this time. (6) Diabetes mellitus type 2, uncontrolled: severely uncontrolled T2DM. was only on oral agents at home. she will need intensive insulin regimen. cont insulin drip in meantime to maintain euglycemia. appreciate pharmacy and ICU assistance. (7) Hypertension: now with shock. holding any anti-hypertensive medication. (8) Chronic obstructive pulmonary disease: severe. no obvious exacerbation at this time. cont NC O2. (9) Ventral hernia: very large just to left of midline hernia containing large amounts of bowel, a portion of both kidneys, etc. was told in the past she is not a surgical candidate. on the CT I ordered there are a few prominent loops of bowel contained within the hernia sac. cannot exclude a partial SBO thus patient made NPO. (10) Peripheral neuropathy: cause of b/l leg pains? suspect this is diabetic neuropathy. cont gabapentin. (11) Chronic right-sided congestive heart failure: h/o CHF, suspect it is right-sided in nature. echo pending. she is not decompensated at this time. hold any diuretics. (12) Dehydration: marked - in the setting of severe hyperglycemia. continue fluid resuscitation. (13) DVT prophylaxis: lovenox updated at bedside total critical care time about 100 minutes including shock management, treatment of hyperkalemia, etc. Admission and Anticipated Discharge Date Admission Date: January 08, 2021 Subjective events of overnight noted. pt developed hypotension in the middle of the night. fluid bolus given at that time with marginal improvement. early this am pt's BPs noted to continue to be very low. after seeing such I ordered NS bolus again and additional blood work to r/o sepsis. upon arrival patient was restless and confused. she could not give accurate information, stating her legs "were hurting for a few days", then stating "they had been hurting for weeks." she wasn't sure where she was. could not tell me if she had been checking her sugars at home. despite the additional fluid bolus her systolic BPs were still in the 80s. another fluid bolus was ordered by this advertising copy writer. EKG obtained; echo ordered. staff report she ate a little breakfast but was otherwise not very hungry. patient was able to take the kayexalate for her high K. no vomiting per staff. arrived at bedside about noon-time. I gave him broad update of the events of overnight. he reports she had been confused for 3-4 weeks if not longer. he states that at night-time "she talks all night." typically ambulates at home but she fell "out of the bed" recently. he confirmed that she does not take her BSGs at home. He also reported that the seroquel "is for sleep" (not some mental health issue). Review of Systems Review of Systems: Unobtainable due to cognitive status (patient very confused ) Physical Exam Constitutional: + morbidly obese and + altered mental status; no acute distress ENMT: Mouth: + dry oral mucous membranes Respiratory: normal respiratory effort, lungs clear to auscultation Auscultation: + diminished lung sounds (bases ) Cardiovascular: Rate/Rhythm: regular rate and regular rhythm Heart Sounds: normal S1 and normal S2; no murmur Vessels: posterior tibial pulses present and dorsalis pedis pulses present; no JVD Extremities: normal capillary refill (>3 sec feet; cool extremities ); no edema Gastrointestinal (Abdomen): Inspection/Auscultation: normal bowel sounds and + visible herniation (left abdomen - very large ); abdomen not distended Percussion/Palpation: + abdomen tender (RUQ ) and + hernia (large ventral hernia to L of midline; does reduce some; very distended); no guarding and no hepatosplenomegaly Musculoskeletal: deformity of right upper arm; left arm is short and abnormal appearing as well Skin: + turgor decreased and + pallor Psychiatric: Orientation: oriented to person; + not oriented to place and + not oriented to time Results & Data Results & Data (MN) Vital Signs (Past 12 Hours) Vital Signs Temp Pulse Pulse Resp BP BP Pulse Ox 01/10/21 09:01 90/52 L 01/10/21 07:40 36.5 C 119 H 16 83/44 L 91 01/10/21 07:21 120 H 01/10/21 05:19 90/60 L 01/10/21 04:24 77 88/52 L 01/10/21 01:05 109 H 01/10/21 00:53 75/45 L 01/09/21 23:44 36.6 C 102 H 20 63/42 L 94 Laboratory Results Laboratory Results - last 24 hr 01/09/21 01/09/21 01/09/21 07:38 21:58 23:04 WBC RBC Hgb Hct MCV MCH MCHC RDW Std Deviation RDW Coeff of Vikas Plt Count MPV Immature Gran % (Auto) Neut % (Auto) Lymph % (Auto) [place] % (Auto) Eos % (Auto) Baso % (Auto) Neut # (Auto) Lymph # (Auto) [place] # (Auto) Eos # (Auto) Baso # (Auto) Immature Gran # (Auto) VBG pH VBG pCO2 VBG pO2 VBG HCO3 VBG O2 Saturation VBG Base Excess Barometric Pressure Sodium Potassium Chloride Carbon Dioxide Anion Gap BUN Creatinine Est Cr Clr Drug Dosing Est GFR ( Amer) Est GFR (Non-Af Amer) BUN/Creatinine Ratio Glucose POC Glucose 268 H 228 H Estimat Average Glucose 392 Hemoglobin A1c 15.3 H Lactate Calcium Total Bilirubin Direct Bilirubin AST ALT Alkaline Phosphatase Troponin I C-Reactive Protein Total Protein Albumin Procalcitonin Random Cortisol 01/10/21 01/10/21 01/10/21 00:03 00:59 02:04 WBC RBC Hgb Hct MCV MCH MCHC RDW Std Deviation RDW Coeff of Vikas Plt Count MPV Immature Gran % (Auto) Neut % (Auto) Lymph % (Auto) [place] % (Auto) Eos % (Auto) Baso % (Auto) Neut # (Auto) Lymph # (Auto) [place] # (Auto) Eos # (Auto) Baso # (Auto) Immature Gran # (Auto) VBG pH VBG pCO2 VBG pO2 VBG HCO3 VBG O2 Saturation VBG Base Excess Barometric Pressure Sodium Potassium Chloride Carbon Dioxide Anion Gap BUN Creatinine Est Cr Clr Drug Dosing Est GFR ( Amer) Est GFR (Non-Af Amer) BUN/Creatinine Ratio Glucose POC Glucose 256 H 247 H 227 H Estimat Average Glucose Hemoglobin A1c Lactate Calcium Total Bilirubin Direct Bilirubin AST ALT Alkaline Phosphatase Troponin I C-Reactive Protein Total Protein Albumin Procalcitonin Random Cortisol 01/10/21 01/10/21 01/10/21 02:58 03:01 04:03 WBC RBC Hgb Hct MCV MCH MCHC RDW Std Deviation RDW Coeff of Vikas Plt Count MPV Immature Gran % (Auto) Neut % (Auto) Lymph % (Auto) [place] % (Auto) Eos % (Auto) Baso % (Auto) Neut # (Auto) Lymph # (Auto) [place] # (Auto) Eos # (Auto) Baso # (Auto) Immature Gran # (Auto) VBG pH VBG pCO2 VBG pO2 VBG HCO3 VBG O2 Saturation VBG Base Excess Barometric Pressure Sodium 134 L Potassium 5.6 H D Chloride 98 Carbon Dioxide 29 Anion Gap 7.0 BUN 36 H D Creatinine 1.80 H D Est Cr Clr Drug Dosing 34.1 Est GFR ( Amer) 32.7 Est GFR (Non-Af Amer) 28.2 BUN/Creatinine Ratio 20.1 H Glucose 225 H POC Glucose 220 H 209 H Estimat Average Glucose Hemoglobin A1c Lactate Calcium 9.5 Total Bilirubin Direct Bilirubin AST ALT Alkaline Phosphatase Troponin I C-Reactive Protein Total Protein Albumin Procalcitonin Random Cortisol 01/10/21 01/10/21 01/10/21 05:02 06:00 07:04 WBC RBC Hgb Hct MCV MCH MCHC RDW Std Deviation RDW Coeff of Vikas Plt Count MPV Immature Gran % (Auto) Neut % (Auto) Lymph % (Auto) [place] % (Auto) Eos % (Auto) Baso % (Auto) Neut # (Auto) Lymph # (Auto) [place] # (Auto) Eos # (Auto) Baso # (Auto) Immature Gran # (Auto) VBG pH VBG pCO2 VBG pO2 VBG HCO3 VBG O2 Saturation VBG Base Excess Barometric Pressure Sodium Potassium Chloride Carbon Dioxide Anion Gap BUN Creatinine Est Cr Clr Drug Dosing Est GFR ( Amer) Est GFR (Non-Af Amer) BUN/Creatinine Ratio Glucose POC Glucose 186 H 164 H 163 H Estimat Average Glucose Hemoglobin A1c Lactate Calcium Total Bilirubin Direct Bilirubin AST ALT Alkaline Phosphatase Troponin I C-Reactive Protein Total Protein Albumin Procalcitonin Random Cortisol 01/10/21 01/10/21 01/10/21 08:46 08:46 08:46 WBC 9.48 RBC 4.69 Hgb 14.6 Hct 43.6 MCV 93.0 MCH 31.1 MCHC 33.5 RDW Std Deviation 55.1 H RDW Coeff of Vikas 16.4 H Plt Count 265 MPV 10.0 Immature Gran % (Auto) 0.3 Neut % (Auto) 75.0 Lymph % (Auto) 13.0 [place] % (Auto) 10.9 Eos % (Auto) 0.5 Baso % (Auto) 0.3 Neut # (Auto) 7.11 H Lymph # (Auto) 1.23 [place] # (Auto) 1.03 H Eos # (Auto) 0.05 Baso # (Auto) 0.03 Immature Gran # (Auto) 0.03 H VBG pH VBG pCO2 VBG pO2 VBG HCO3 VBG O2 Saturation VBG Base Excess Barometric Pressure Sodium Potassium Chloride Carbon Dioxide Anion Gap BUN Creatinine Est Cr Clr Drug Dosing Est GFR ( Amer) Est GFR (Non-Af Amer) BUN/Creatinine Ratio Glucose POC Glucose Estimat Average Glucose Hemoglobin A1c Lactate 1.6 Calcium Total Bilirubin 0.5 Direct Bilirubin 0.2 AST 42 H ALT 37 Alkaline Phosphatase 84 Troponin I C-Reactive Protein 1.10 H Total Protein 6.6 Albumin 2.9 L Procalcitonin Random Cortisol 01/10/21 01/10/21 01/10/21 08:46 08:46 08:46 WBC RBC Hgb Hct MCV MCH MCHC RDW Std Deviation RDW Coeff of Vikas Plt Count MPV Immature Gran % (Auto) Neut % (Auto) Lymph % (Auto) [place] % (Auto) Eos % (Auto) Baso % (Auto) Neut # (Auto) Lymph # (Auto) [place] # (Auto) Eos # (Auto) Baso # (Auto) Immature Gran # (Auto) VBG pH 7.39 VBG pCO2 44 VBG pO2 41 VBG HCO3 26 VBG O2 Saturation 74.7 VBG Base Excess 0.6 Barometric Pressure 734.8 Sodium Potassium Chloride Carbon Dioxide Anion Gap BUN Creatinine Est Cr Clr Drug Dosing Est GFR ( Amer) Est GFR (Non-Af Amer) BUN/Creatinine Ratio Glucose POC Glucose Estimat Average Glucose Hemoglobin A1c Lactate Calcium Total Bilirubin Direct Bilirubin AST ALT Alkaline Phosphatase Troponin I C-Reactive Protein Total Protein Albumin Procalcitonin 0.12 Random Cortisol 26.11 01/10/21 01/10/21 01/10/21 08:46 09:05 11:05 WBC RBC Hgb Hct MCV MCH MCHC RDW Std Deviation RDW Coeff of Vikas Plt Count MPV Immature Gran % (Auto) Neut % (Auto) Lymph % (Auto) [place] % (Auto) Eos % (Auto) Baso % (Auto) Neut # (Auto) Lymph # (Auto) [place] # (Auto) Eos # (Auto) Baso # (Auto) Immature Gran # (Auto) VBG pH VBG pCO2 VBG pO2 VBG HCO3 VBG O2 Saturation VBG Base Excess Barometric Pressure Sodium Potassium Chloride Carbon Dioxide Anion Gap BUN Creatinine Est Cr Clr Drug Dosing Est GFR ( Amer) Est GFR (Non-Af Amer) BUN/Creatinine Ratio Glucose POC Glucose 137 H 160 H Estimat Average Glucose Hemoglobin A1c Lactate Calcium Total Bilirubin Direct Bilirubin AST ALT Alkaline Phosphatase Troponin I < 0.015 C-Reactive Protein Total Protein Albumin Procalcitonin Random Cortisol 01/10/21 01/10/21 01/10/21 12:59 15:27 18:17 WBC RBC Hgb Hct MCV MCH MCHC RDW Std Deviation RDW Coeff of Vikas Plt Count MPV Immature Gran % (Auto) Neut % (Auto) Lymph % (Auto) [place] % (Auto) Eos % (Auto) Baso % (Auto) Neut # (Auto) Lymph # (Auto) [place] # (Auto) Eos # (Auto) Baso # (Auto) Immature Gran # (Auto) VBG pH VBG pCO2 VBG pO2 VBG HCO3 VBG O2 Saturation VBG Base Excess Barometric Pressure Sodium Potassium Chloride Carbon Dioxide Anion Gap BUN Creatinine Est Cr Clr Drug Dosing Est GFR ( Amer) Est GFR (Non-Af Amer) BUN/Creatinine Ratio Glucose POC Glucose 144 H 162 H 207 H Estimat Average Glucose Hemoglobin A1c Lactate Calcium Total Bilirubin Direct Bilirubin AST ALT Alkaline Phosphatase Troponin I C-Reactive Protein Total Protein Albumin Procalcitonin Random Cortisol 01/10/21 20:25 WBC RBC Hgb Hct MCV MCH MCHC RDW Std Deviation RDW Coeff of Vikas Plt Count MPV Immature Gran % (Auto) Neut % (Auto) Lymph % (Auto) [place] % (Auto) Eos % (Auto) Baso % (Auto) Neut # (Auto) Lymph # (Auto) [place] # (Auto) Eos # (Auto) Baso # (Auto) Immature Gran # (Auto) VBG pH VBG pCO2 VBG pO2 VBG HCO3 VBG O2 Saturation VBG Base Excess Barometric Pressure Sodium Potassium Chloride Carbon Dioxide Anion Gap BUN Creatinine Est Cr Clr Drug Dosing Est GFR ( Amer) Est GFR (Non-Af Amer) BUN/Creatinine Ratio Glucose POC Glucose 225 H Estimat Average Glucose Hemoglobin A1c Lactate Calcium Total Bilirubin Direct Bilirubin AST ALT Alkaline Phosphatase Troponin I C-Reactive Protein Total Protein Albumin Procalcitonin Random Cortisol Diagnostic Findings Abdomen/Pelvis CT 01/10/21 09:[address] WITHOUT CONTRAST CT DOSE: 2756.83 mGycm HISTORY: Acute right upper quadrant abdominal pain RUQ/epigastric abd pain, large ventral hernia TECHNIQUE: Multiaxial CT images of the abdomen and pelvis were performed without contrast. A dose lowering technique was utilized adhering to the principles of ALARA. COMPARISON STUDY: 10/22/2019 FINDINGS: The imaged inferior cardiac chambers are unremarkable. Bibasilar opacities suggestive of atelectasis/fibrosis. No pneumatosis or pneumoperitoneum. The study is limited without the use of contrast and also secondary to patient body habitus. Portions of the left abdomen are excluded from the [id number]. Unremarkable spleen, mildly atrophic pancreas and adrenal glands. Cholecystectomy. Mild marginal nodularity of the liver is unchanged which may reflect early changes of cirrhosis. 1.8 cm right renal cyst. No hydronephrosis. Decompressed urinary bladder with Deleon catheter. Air within the bladder lumen is likely secondary to instrumentation. There is a large ventral abdominal wall hernia which contains the majority of the stomach, large and small bowel, and also portion of the liver, pancreas and right kidney. Moderate atherosclerosis of the aorta and branch vessels. There is no adenopathy. High density material is noted within the stomach. Postoperative changes suggestive of prior partial small bowel obstruction. There is moderate fecal retention. Mild colonic diverticulosis. No high-grade small bowel obstruction. There are a few mildly dilated loops of small bowel within the hernia sac measuring up to 3.9 cm transversely. A few loops also demonstrate mild wall thickening. Mild interloop/mesenteric edema. Unremarkable soft tissues. No acute fracture. IMPRESSION: 1. Large ventral abdominal wall hernia containing the majority of the large and small bowel, stomach and portions of the liver, pancreas and right kidney redemonstrated. 2. There are a few mildly dilated fluid-filled loops of small bowel within the hernia sac with equivocal wall thickening. Findings may be secondary to enteritis or low-grade small bowel obstruction. Follow-up recommended. 3. No high-grade bowel obstruction or pneumoperitoneum. 4. Additional findings as above. ACT 112: Negative or not required by law. The above report was generated using voice recognition software. It may contain grammatical, syntax or spelling errors. Electronically signed by: Dre Burleson M.D. 01/10/2021 11:21 AM KUB X-Ray 01/10/21 16:14 KUB HISTORY: Status post placement of an enteric tube NG placement COMPARISON: CT abdomen and pelvis of same day, K[facility] 11/22/2019 FINDINGS: Status post placement of an enteric tube, distal tip terminating in the expected location of the stomach. Large ventral abdominal wall hernia containing a portion of the stomach redemonstrated. Lower abdomen is excluded from the [id number]. No pneumatosis or pneumoperitoneum. Cardiomegaly with interstitial coarsening. Reverse right shoulder total joint arthroplasty. No dilated loops of bowel identified. IMPRESSION: Status post placement of enteric tube with distal tip terminating in the expected location of the gastric body. ACT 112: Negative or not required by law. The above report was generated using voice recognition software. It may contain grammatical, syntax or spelling errors. Electronically signed by: Dre Burleson M.D. 01/10/2021 4:36 PM EKG - my reading - sinus tach, RBBB, anterior T wave inversions Echo - preserved LV function, normal IVC, right ventricular dysfunction PG Care Time/CCT Total # of Minutes Spent Total Time Spent with Patient: Total time spent is greater than 50% in coordination of care (as documented) at patient's floor/unit and/or counseling patient: Critical Care Time: Yes Total Critical Care Time: 100 Coding Level of Care Code None Diagnoses Shock R57.9 ATN (acute tubular necrosis) N17.0 Hyperkalemia E87.5 Encephalopathy G93.40 Chronic respiratory failure with hypoxia J96.11 Diabetes mellitus type 2, uncontrolled E11.65 Hypertension I10 Hypertension type: essential hypertension Chronic obstructive pulmonary disease J44.9 COPD type: unspecified COPD Ventral hernia K43.9 Peripheral neuropathy G62.89 Peripheral neuropathy type: polyneuropathy, other Chronic right-sided congestive heart failure I50.812 Dehydration E86.0 DVT prophylaxis Z29.9 Additional Codes Critical Care Time - Critical Care Time: Yes ([id number]) Time Spent (min) 100 (1) Peripheral neuropathy Peripheral neuropathy type: polyneuropathy, other Qualified Code(s): G62.89 - Other specified polyneuropathies (2) Chronic obstructive pulmonary disease COPD type: unspecified COPD Qualified Code(s): J44.9 - Chronic obstructive pulmonary disease, unspecified (3) Hypertension Hypertension type: essential hypertension Qualified Code(s): I10 - Essential (primary) hypertension
[2021-01-10 09:19] LABS: Albumin Level 2.9 gm/dl (3.4-5.0); Bilirubin Direct 0.2 mg/dl (0-0.2); Bilirubin,Total 0.5 mg/dl (0.2-1); C Reactive Protein 1.1 mg/dl (0-0.29); Total Protein 6.6 gm/dl (6.4-8.2)
[2021-01-10] MEDS: GABAPENTIN 300 MG CAP PO SCH ×3 (09:30→20:13)
[2021-01-10] MEDS: DOCUSATE SODIUM/SENNA 50/8.6MG TAB PO SCH (09:30)
--- NOTE | 2021-01-10 11:22 | CT Scan Report ---
ABDOMEN AND PELVIS CT WITHOUT CONTRAST CT DOSE: 2756.83 mGycm HISTORY: Acute right upper quadrant abdominal pain RUQ/epigastric abd pain, large ventral hernia TECHNIQUE: Multiaxial CT images of the abdomen and pelvis were performed without contrast. A dose lo wering technique was utilized adhering to the principles of ALARA. COMPARISON STUDY: 10/22/2019 FINDINGS: The imaged inferior cardiac chambers are unremarkable. Bibasilar opacities suggestive of at electasis/fibrosis. No pneumatosis or pneumoperitoneum. The study is limited without the use of contr ast and also secondary to patient body habitus. Portions of the left abdomen are excluded from the fi eld-of-view. Unremarkable spleen, mildly atrophic pancreas and adrenal glands. Cholecystectomy. Mild marginal nodu larity of the liver is unchanged which may reflect early changes of cirrhosis. 1.8 cm right renal cys t. No hydronephrosis. Decompressed urinary bladder with Deleon catheter. Air within the bladder lumen is likely secondary to instrumentation. There is a large ventral abdominal wall hernia which contains the majority of the stomach, large and small bowel, and also portion of the liver, pancreas and righ t kidney. Moderate atherosclerosis of the aorta and branch vessels. There is no adenopathy. High density material is noted within the stomach. Postoperative changes suggestive of prior partial small bowel obstruction. There is moderate fecal retention. Mild colonic diverticulosis. No high-grad e small bowel obstruction. There are a few mildly dilated loops of small bowel within the hernia sac measuring up to 3.9 cm transversely. A few loops also demonstrate mild wall thickening. Mild interloo p/mesenteric edema. Unremarkable soft tissues. No acute fracture. IMPRESSION: 1. Large ventral abdominal wall hernia containing the majority of the large and small bowel, stomach and portions of the liver, pancreas and right kidney redemonstrated. 2. There are a few mildly dilated fluid-filled loops of small bowel within the hernia sac with equivo alexsandra wall thickening. Findings may be secondary to enteritis or low-grade small bowel obstruction. Fol low-up recommended. 3. No high-grade bowel obstruction or pneumoperitoneum. 4. Additional findings as above. ACT 112: Negative or not required by law. The above report was generated using voice recognition software. It may contain grammatical, syntax o r spelling errors. Electronically signed by: Dre Burleson M.D. 01/10/2021 11:21 AM
[2021-01-10] MEDS: SODIUM CHLORIDE 0.9% 1000ML 1,000 ML IV SCH ×3 (11:26→23:43)
[2021-01-10] MEDS: INSULIN ASPART 100 UNITS/ML 3 ML PEN SC SCH ×4 (11:27→20:13)
--- NOTE | 2021-01-10 14:34 | Pharmacy Report ---
Pharmacy Glycemic Short Note 2 - Date of Service January 10, 2021 - Glycemic Short BSG Results (Last 24 hours): 01/09/21 01/09/21 01/09/21 14:35 15:33 16:30 Glucose POC Glucose 205 H 260 H 192 H 01/09/21 01/09/21 01/09/21 18:12 19:02 20:01 Glucose POC Glucose 172 H 180 H 206 H 01/09/21 01/09/21 01/09/21 21:03 21:58 23:04 Glucose POC Glucose 242 H 268 H 228 H 01/10/21 01/10/21 01/10/21 00:03 00:59 02:04 Glucose POC Glucose 256 H 247 H 227 H 01/10/21 01/10/21 01/10/21 02:58 03:01 04:03 Glucose 225 H POC Glucose 220 H 209 H 01/10/21 01/10/21 01/10/21 05:02 06:00 07:04 Glucose POC Glucose 186 H 164 H 163 H 01/10/21 01/10/21 01/10/21 09:05 11:05 12:59 Glucose POC Glucose 137 H 160 H 144 H OUTPATIENT ANTIDIABETIC REGIMEN: * Januvia 100 mg daily * HBA1C = 15.3% ASSESSMENT: 01/10/21 * patient was start on insulin infusion yesterday for BSGs > 350 mg/dL x 2. Continued on insulin infusion overnight (drip rates were 5--> 4--> 4.8 --> 2.9 --> 4.25 --> 6 --> 4.8). * Patient with EYAD and hypotension. * Continue insulin infusion due to hemodynamically instability. 01/09/21 * Traci Roman is a 70 y/o F with a PMH of T2DM on Januvia 100 mg daily. * She is admitted with hyperglycemia. BSGs have been 516- 438 mg/dL on admission. Overnight BSG was 368 mg/dL. Morning BSG was 367 mg/dL. * Patient received 10 units of IV and SQ regular insulin yesterday as well as 15 units of Lantus around 1 am. * Give additional 20 units this morning of Lantus to equal weight-based stress of 2 Lantus (total of 35 units). Start weight-based stress of 3 Novolog. * IV insulin bolus for AM blood sugar. Reached out to provider to have some potassium supplementation due to K of 3.8. PLAN FOR INPATIENT GLYCEMIC CONTROL: * Hold outpatient oral diabetes medications * Insulin infusion goal range 140-200 mg/dL * Bolus insulin * NovoLog per scale ACHS or Q6hrs while NPO * Goal Range: Low 110 mg/dL - High 140 mg/dL * Correction Factor: -- mg/dL/unit * Nutritional / Prandial insulin per carb ratio of 1 unit per 5 grams CHO consumed PLAN FOR DISCHARGE: * TBD
[2021-01-10] MEDS: NOREPINEPHRINE/D5W 8 MG/508 ML BAG IV SCH (15:30)
[2021-01-10] MEDS ORDERED: NOREPINEPHRINE/D5W 8 MG/508 ML IV ONE (15:32)
[2021-01-10] MEDS ORDERED: STAT IV Infusion **Titration per Protocol STA (15:44)
--- NOTE | 2021-01-10 16:37 | XRay Report ---
KUB HISTORY: Status post placement of an enteric tube NG placement COMPARISON: CT abdomen and pelvis of same day, [facility] 11/22/2019 FINDINGS: Status post placement of an enteric tube, distal tip terminating in the expected location o f the stomach. Large ventral abdominal wall hernia containing a portion of the stomach redemonstrated . Lower abdomen is excluded from the [id number]. No pneumatosis or pneumoperitoneum. Cardiomegaly with interstitial coarsening. Reverse right shoulder total joint arthroplasty. No dilated loops of markos wel identified. IMPRESSION: Status post placement of enteric tube with distal tip terminating in the expected location of the gas tric body. ACT 112: Negative or not required by law. The above report was generated using voice recognition software. It may contain grammatical, syntax o r spelling errors. Electronically signed by: Dre Burleson M.D. 01/10/2021 4:36 PM
[2021-01-10] MEDS: INSULIN REGULAR 250 UNITS in SODIUM CHLORIDE 0.9% 247.5 ML IV SCH (16:57)
--- NOTE | 2021-01-10 17:01 | Critical Care Consultation ---
Date of Consultation January 10, 2021 Assessment & Plan (1) Hyperglycemia due to diabetes mellitus: Reason Critically Ill: Traci is a 70-year-old female with a notable history of COPD requiring home oxygen (3lpm), type 2 diabetes, hypertension, hyperlipidemia who presented to [facility] for evaluation of hyperglycemia. During her second night here, she developed HoTN down to 50/30s, with modest response to saline boluses. She requires ICU-level care for intensive hemodynamic monitoring and work-up of her hypotension. Neuro - [facility] ICU: Positive Sedation: none Analgesia: none Metabolic Encephalopathy * Suspect secondary to hypovolemic shock / hypoperfusion, possibly compounded with hypoxemia * Lower suspicion for septic-driven process at present -- no leukocytosis, no fever, initial UA clean, procalc normal, mildly elevated CRP - CT-A/P demonstrating low-grade SBO +/- enteritis noted. Will continue cipro/flagyl in interim - Await BCX, UCX * Mildly hyperkalemia and hyponatremia - otherwise lytes are stable and WNL * Continue IVF, pressor support * Low threshold for intubation if failure to protect airway * If no improvement despite these, proceed with CT-H and, if indicated, LP Cardiac - Suspected Hypovolemic Shock * BPs 60-70s/50s upon arrival to ICU -- had been ranging from 75-90/40-60s since last night * Suspect etiology is likely hypovolemic: hyperglycemia, diarrhea / enteritis, and possible third spacing around low-grade SBO. Hgb stable. * Echocardiogram ordered for further evaluation of cardiac fxn * Lower suspicion for septic source at present - w/u as below, will continue to monitor * Random cortisol WNL * Continue mIVF @ 150cc/hr * Continue pressor support with Levophed - responding adequately at present * Monitor I+Os, UOP * Hold home antiHTN Respiratory - COPD * At baseline patient does require 3L NC * Review of her chart does not reveal any maintenance medications * Will require pulmonology f/u and PFTs as outpatient GI - Low-grade SBO and/or Enteritis (in setting of known large ventral wall hernia containing most of the GI contents) * CT-AP revealing of mildly dilated fluid-filled loops of small bowel within the hernia with wall thickening - could be secondary to enteritis vs. low-grade SBO // Patient recently reporting diarrhea * NG tube placed * Diet: NPO * Begin empiric cipro/flagyl for GI coverage as work-up for shock continues * C. diff testing in setting of recent diarrhea * Consider surgical consult RENAL/LYTES - Acute Kidney Injury * New EYAD as of this morning -- BUN 36 / Cr 1.80 (previously 20/0.91) * Suspect this is likely prerenal in nature in setting of shock, as above * Continue mIVF * Should this worsen at all, can consider urine lytes and creatinine for FENa * Daily labs * Mild hyperkalemia, hyponatremia noted. Random cortisol - * Deleon placed. ENDO - Type 2 Diabetes (A1c on admission = 15.3%) * Glycemic consult previously placed - continue SSI, Lantus * ICU Hyperglycemia protocol HEME - * H&H Stable at present - will continue to monitor ID - See above - metabolic encephalopathy (neuro), enteritis/SBO (GI) INTEGUMENTARY - * No acute needs LINES/IV ACCESS - NG, PIVs intact. DVT PROPHYLAXIS - Lovenox 40 b.i.d. Thank you for allowing us to be part of this patient's care. Please refer to Dr. Dang's documentation for any further recommendations. (2) Obesity: (3) Back pain: (4) Stage III pressure ulcer: (5) Acute metabolic encephalopathy: (6) Obesity: (7) Hypertension: (8) Hyperlipidemia: (9) Depression: (10) Anxiety: (11) Chronic obstructive pulmonary disease: (12) Diabetes mellitus, type 2: (13) SBO (small bowel obstruction): Supervising Physician Co-Signing Physician Notes Dr. Aguilar was resident physician during care of patient. I separately evaluated patient for weber portions of the history and the exam. I was present during the critical portion of medical decision making, and I discussed the case with the resident. I generally agree with the findings and plan. Mildly combative secondary to disorientation will require physical restraints place NG tube for partial small bowel obstruction, antibiotics for colitis however I think infection is less likely and vasoactive medical support via the periphery I think she is too combative for placement of a central line risks outweigh benefits at this time. I have personally spent 45 minutes of critical care time in the direct management of this patient. This is a life/limb threatening event. This includes time spent evaluating patient, direct bedside care, chart review, placing orders, interpretation of diagnostic studies, discussion with consultants, patient, and/or family members regarding treatment decisions, as well as other required patient management activities. This time is exclusive of all separately billable procedures, and teaching time and separate from and in addition to any other critical care service time. History of Present Illness Attending Physician: Tawanda Laurence Aviles is a 70-year-old female with a notable history of COPD requiring home oxygen, type 2 diabetes, hypertension, hyperlipidemia who presented to [facility] for evaluation of hyperglycemia, found to be over 700 prior to arrival. On chart review, it actually appears that patient was r equested to come here by PCP when the hyperglycemia was discovered incidentally on lab work. Prior to this, she was reportedly in her normal healthshe did endorse some difficulty with ambulation, but otherwise no recent signs of illness, chest pain, shortness of breath. In the ER, she was found to be hypoxic with a mild anion gap metabolic acidosis. She was normotensive and mentating fine. Her blood sugar was 516. Her chest x-ray demonstrated evidence of pulmonary vascular congestion and likely pulmonary edema. She was treated with IV and SQ insulin. She was given Lasix IV 20x1 and thereafter admitted for further management of hyperglycemia. Last night (01/09 to 01/10), based on chart review, patient was reportedly found to be agitated and hypotensive. Her lowest pressure was estimated to be in the 50/30 range. She was given 1 L normal saline. At the time, her hypotension was suspected to be secondary to diuretics, and her altered mental status secondary to delirium. Throughout today, blood pressures have ranged from 75/40s to 90/50s. Since admission, her heart rates have tended towards the low 90s, but since last night, they have trended towards the 100-110s range. A.m. labs significant for normal white count, normal hemoglobin, normal blood gas, mild hyponatremia (134), mild hyperkalemia (5.6), new EYAD (BUN 36, creatinine 1.8), blood sugar 140, CRP 1.1, pro-Anup 0.1, random cortisol normal at 26.1. Upon arrival to the ICU, Traci is somnolent, but alert to person and place. She does not complain of any pain except during her abdominal exam, which she notes is chronic. No chest pain or pressure. No shortness of breath. BPs ~60-70/30-50s. HR in 110-120s. Saturating fully on 4L NC. Allergies Allergy/AdvReac Type Severity Reaction Status Date / Time latex Allergy Severe 2ND DEGREE Verified 01/08/21 20:06 BURN FROM BANDAGE adhesive Allergy Intermediate RASH Verified 01/08/21 20:06 Home Medications Medication Instructions Recorded Confirmed Type aspirin [Aspirin Low Dose] 81 mg PO QPM 10/30/18 01/08/21 History atorvastatin [Lipitor] 80 mg PO HS 10/30/18 01/08/21 History cholecalciferol (vitamin D3) 2,000 unit PO QAM 10/30/18 01/08/21 History [Vitamin D3] gabapentin 300 mg PO TID 10/30/18 01/08/21 History quetiapine 50 mg tablet 50 mg PO HS 12/01/19 01/08/21 History cyanocobalamin (vitamin B-12) 1,000 mcg IM MONTHLY 01/08/21 01/08/21 History [Vitamin B-12] lisinopril 20 mg PO QPM 01/08/21 01/08/21 History sitagliptin [Januvia] 100 mg PO QPM 01/08/21 01/10/21 History Patient History Medical History (Updated 01/10/21 @ 21:37 by Silvestre Khan) Anxiety Chronic obstructive pulmonary disease Depression Diabetes mellitus, type 2 NIDDM Glaucoma WELL CONTROLLED H/O defect LEFT ARM Hyperlipidemia Hypertension Peripheral neuropathy BILATERAL FEET Temporomandibular joint disorder NO PROBLEMS RECENTLY. Surgical History History of appendectomy History of cholecystectomy History of colonoscopy History of incision and drainage UMBILICAL ABSCESS History of total shoulder replacement RIGHT Hx of umbilical hernia repair X4 -- WEARS SUPPORT BAND DAILY S/P JALIL-BSO S/P tonsillectomy and adenoidectomy Family History Mother Diabetes mellitus, type 2 Aunt Diabetes mellitus, type 2 Social History Smoking Status: Former smoker Tobacco Type: Cigarettes Cigarettes Per Day: 2 PPD X 50 YEARS AGO; Second Hand Exposure: Yes; Hx Alcohol Use: No Hx Substance Use: No Preferred Language: [place] Communication Ability: Effective Fitness Consultant Required: No Beliefs That Will Affect Care: None marital status: Current Living Situation: Spouse current occupational status: retired Feels Safe at Home: Yes Assistive Devices: Walker Review of Systems Review of Systems: As per HPI Physical Exam Physical Exam: General: Somnolent-appearing 70-year-old female who is lying back in her hospital bed, silvia, upon my arrival. She is alert to person and place. NAD. HEENT: NCAT. Eyes - Sclera are white, anicteric, and without injection. PERRL. EOMs display full ROM bilaterally. Mouth - MMM with no tonsillar edema or exudates. Cardiac: Tachycardic with regular rhythm; detailed auscultation exam limited by habitus, but of what could be heard: S1 and S2 present with no murmurs, rubs, or gallops. Pulmonary: Mildly increased respiratory effort with symmetric expansion of the chest. No use of accessory muscles. Ausculatory exam difficult sec to habitus, but of what could be heard: lungs were clear to auscultation bilaterally with no crackles or wheezes. Abdominal: Extensively large ventral hernia that deviates to the left. This area is mildly tender to palpation. No rebound or involuntary guarding. Extremities: Upper and lower extremities are warm and well perfused. Capillary refill assessed in UE was approx. 4 seconds. Neuro: No aphasia or dysarthria. As above; otherwise, upper and lower extremity strength is equal and approx. ~4/5 bilaterally. Results & Data Results & Data ([facility]) Vital Signs (Past 12 Hours) Vital Signs Temp Pulse Pulse Resp BP BP Pulse Ox 01/10/21 13:02 36.7 C 67 18 87/57 L 94 01/10/21 11:22 37.3 C 122 H 20 75/52 L 91 01/10/21 09:01 90/52 L 01/10/21 07:40 36.5 C 119 H 16 83/44 L 91 01/10/21 07:21 120 H 01/10/21 05:19 90/60 L Resident Activity Tracking Resident Involvement: Resident Care Provided Care Provided: Adult Hospital Medicine (1) Stage III pressure ulcer Pressure injury location: other site Qualified Code(s): L89.893 - Pressure ulcer of other site, stage 3 (2) Diabetes mellitus, type 2 Diabetes mellitus complication status: without complication Diabetes mellitus chcf insulin use: without chcf use Qualified Code(s): E11.9 - Type 2 diabetes mellitus without complications (3) Back pain Back pain laterality: midline Back pain location: low back pain Chronicity: chronic Sciatica presence: without sciatica Qualified Code(s): M54.5 - Low back pain; G89.29 - Other chronic pain (4) Depression Active/Remission status: remission status unspecified Depression Type: major depressive disorder Major depression recurrence: unspecified whether recurrent Qualified Code(s): F32.9 - Major depressive disorder, single episode, unspecified (5) Hyperlipidemia Hyperlipidemia type: unspecified Qualified Code(s): E78.5 - Hyperlipidemia, unspecified (6) Chronic obstructive pulmonary disease COPD type: unspecified COPD Qualified Code(s): J44.9 - Chronic obstructive pulmonary disease, unspecified (7) Hypertension Hypertension type: essential hypertension Qualified Code(s): I10 - Essential (primary) hypertension (8) Obesity Body mass index: BMI 38.0-38.9 Obesity classification: adult class 2 (BMI 35 - 39.9) Obesity type: unspecified obesity type Serious obesity comorbidity presence: with serious comorbidity Qualified Code(s): E66.01 - Morbid (severe) obesity due to excess calories; Z68.38 - Body mass index [BMI] 38.0-38.9, adult
--- NOTE | 2021-01-10 17:28 | XCELERA ---
[id number]
--- NOTE | 2021-01-10 17:45 | Electrocardiogram Report ---
Test Reason : Blood Pressure : / mmHG Vent. Rate : 109 BPM Atrial Rate : 109 BPM P-R Int : 156 ms QRS Dur : 142 ms QT Int : 362 ms P-R-T Axes : 081 127 223 degrees QTc Int : 487 ms Sinus tachycardia Right bundle branch block T wave abnormality, consider inferolateral ischemia Abnormal ECG When compared with ECG of 10-JAN-2021 08:23, (unconfirmed) No significant change was found Confirmed by Landon Malcolm ([id number]) on 01/10/2021 5:45:23 PM Referred By: REFERRED SELF Confirmed By:Michael Malcolm
[2021-01-10] MEDS: NORMOSOL-R 1,000 ML IV SCH ×2 (18:37→23:43)
[2021-01-10] MEDS: metroNIDAZOLE 500 MG/100 ML BAG IV SCH (18:37)
[2021-01-10] MEDS: CIPROFLOXACIN / D5W 400 MG/200 ML BAG IV SCH (20:11)
[2021-01-10] MEDS: QUEtiapine FUMARATE 25 MG TABLET PO SCH (20:13)
[2021-01-10] MEDS: ATORVASTATIN 40 MG TAB PO SCH (20:14)
[2021-01-10] MEDS: ASPIRIN 81 MG ECTAB PO SCH (20:14)
[2021-01-11] MEDS: metroNIDAZOLE 500 MG/100 ML BAG IV SCH ×3 (00:44→17:17)
[2021-01-11] MEDS: NOREPINEPHRINE/D5W 8 MG/508 ML BAG IV SCH ×2 (01:29→10:13)
[2021-01-11] MEDS: ACETAMINOPHEN 325 MG TAB PO PRN (04:07)
[2021-01-11 05:03] LABS: Hematocrit (blood only) 42.8 % (37-47); Hemoglobin 14.4 g/dL (12.0-16.0); Mean Corpuscular Hemoglobin 31.1 pg (25-34); Mean Corpuscular Hgb Conc 33.6 g/dL (32-36); Mean Corpuscular Volume 92.4 fL (80-100); Mean Platelet Volume 9.4 fL (7.4-10.4); Platelet Count 277 K/uL (130-400); RDW Coefficient of Variation 16.6 % (11.5-14.5); RDW Standard Deviation 55.8 fL (36.4-46.3); Red Blood Count 4.63 M/uL (4.2-5.4)
[2021-01-11] MEDS: CIPROFLOXACIN / D5W 400 MG/200 ML BAG IV SCH ×2 (05:22→18:41)
[2021-01-11] MEDS: ENOXAPARIN INJ 40 MG/0.4 ML SYR SQ SCH ×2 (05:23→18:41)
[2021-01-11 05:34] LABS: Albumin Globulin Ratio 0.7 (0.9-2); Albumin Level 2.5 gm/dl (3.4-5.0); BUN Creatinine Ratio 45.6 (10-20); Bilirubin,Total 0.6 mg/dl (0.2-1); C Reactive Protein 10.4 mg/dl (0-0.29); Calcium 7.8 mg/dl (8.5-10.1); Creatinine Clr Calc Pharmacy 76.6 ml/min; Est GFR (African American) 87.2 ml/min; Est GFR (Non-African American) 75.2 ml/min; Globulin 3.7 gm/dl (2.5-4.0); Magnesium 1.7 mg/dl (1.8-2.4); Phosphorus 3.8 mg/dl (2.5-4.9); Total Protein 6.2 gm/dl (6.4-8.2)
[2021-01-11 05:36] LABS: Basophils # (auto) 0.01 K/uL (0-0.2); Basophils % (auto) 0.1 %; Immature Granulocytes # (auto) 0.05 K/uL (0.00-0.02); Immature Granulocytes % (auto) 0.4 %; Lymphocytes % (auto) 9.6 %; Monocytes # (auto) 2.07 K/uL (0.11-0.59); Monocytes % (auto) 18.2 %; Neutrophils # (auto) 8.17 K/uL (1.4-6.5); Neutrophils % (auto) 71.7 %
--- NOTE | 2021-01-11 05:47 | Critical Care Progress Note ---
Date of Service January 11, 2021 Assessment & Plan (1) Hyperglycemia due to diabetes mellitus: Reason Critically Ill: Traci is a 70-year-old female with a notable history of COPD requiring home oxygen (3lpm), type 2 diabetes, hypertension, hyperlipidemia who presented to [facility] for evaluation of hyperglycemia. During her second night here, she developed HoTN down to 50/30s, with modest response to saline boluses. She requires ICU-level care for intensive hemodynamic monitoring and work-up of her hypotension. Neuro - [facility] ICU: Positive Sedation: none Analgesia: none Metabolic Encephalopathy * Primarily suspect secondary to hypovolemic shock / hypoperfusion, possibly compounded with hypoxemia * Sepsis still seems less likely but considered - Tm 38.6, CRP ~10 (in setting of HoTN), continued AMS but improving - CT-A/P demonstrating low-grade SBO +/- enteritis noted - Await BCX * Continue IVF, pressor support for now * Continue ciproflxacin, flagyl IV for now * Low threshold for intubation if failure to protect airway * If no improvement despite these, proceed with CT-H Cardiac - Shock * BPs 60-70s/50s upon arrival to ICU -- MAPs have been 60-80s since initiating pressor support * Suspect etiology is likely hypovolemic: hyperglycemia, diarrhea / enteritis, and possible third spacing around low-grade SBO. Hgb stable. * As above - sepsis considered, but still seems less likely. Await cultures. * Echocardiogram demonstrating hyperdynamic LV, with moderate-severe dilated RV w/ modest decrease in fxn * Random cortisol WNL * Continue normosol mIVF * Continue pressor support with Levophed - responding adequately at present * Monitor I+Os, UOP * Hold home antiHTN Respiratory - COPD * At baseline patient does require 3L NC -- at baseline right now * Review of her chart does not reveal any maintenance medications * Will require pulmonology f/u and PFTs as outpatient GI - Low-grade SBO and/or Enteritis (in setting of known large ventral wall hernia containing most of the GI contents) * CT-AP revealing of mildly dilated fluid-filled loops of small bowel within the hernia with wall thickening - could be secondary to enteritis vs. low-grade SBO // Patient recently reporting diarrhea * NG tube placed * Diet: NPO * Begin empiric cipro/flagyl for GI coverage as work-up for shock continues * C. diff testing in setting of recent diarrhea * Consider rCT-AP if any changes in physical exam RENAL/LYTES - Acute Kidney Injury * Previously -- BUN 36 / Cr 1.80 (previously 20/0.91) * Cr back to 0.8 this AM * Suspect this is likely prerenal in nature in setting of shock, as above * Continue mIVF, daily labs * Replete K - especially in setting of insulin gtt - * Deleon placed. ENDO - Type 2 Diabetes (A1c on admission = 15.3%) * Glycemic consult previously placed - while on Levophed, continue insulin gtt * Add D5-1/2NS * ICU Hyperglycemia protocol HEME - * H&H Stable at present - will continue to monitor ID - See above - metabolic encephalopathy (neuro), enteritis/SBO (GI) INTEGUMENTARY - * No acute needs LINES/IV ACCESS - NG, PIVs intact. DVT PROPHYLAXIS - Lovenox 40 b.i.d. Thank you for allowing us to be part of this patient's care. Please refer to Dr. Dang's documentation for any further recommendations. (2) Obesity: (3) Back pain: (4) Stage III pressure ulcer: (5) Acute metabolic encephalopathy: (6) Hypertension: (7) Hyperlipidemia: (8) Depression: (9) Anxiety: (10) Chronic obstructive pulmonary disease: (11) Diabetes mellitus, type 2: (12) SBO (small bowel obstruction): Admission and Anticipated Discharge Date Admission Date: January 08, 2021 Supervising Physician Co-Signing Physician Notes Dr. Aguliar was resident physician during care of patient. I separately evaluated patient for weber portions of the history and the exam. I was present during the critical portion of medical decision making, and I discussed the case with the resident. I generally agree with the findings and plan. Hemodynamically improving however still requiring vasoactive medication at this time on insulin drip blood sugars are improving as well. Continue antibiotics at this time. Since vasoactive requirements are decreasing and she is at high risk for removing lines as she has removed her previous NG tube and requiring restraints we will hold advanced access at this time and continue peripheral infusion with close monitoring of IV sites I have personally spent 45 minutes of critical care time in the direct management of this patient. This is a life/limb threatening event. This includes time spent evaluating patient, direct bedside care, chart review, placing orders, interpretation of diagnostic studies, discussion with consultants, patient, and/or family members regarding treatment decisions, as well as other required patient management activities. This time is exclusive of all separately billable procedures, and teaching time and separate from and in addition to any other critical care service time. Subjective NAEO. Patient reports feeling well this morning. Denies of any pain or discomfort. She is alert to person, year, time, but not place. Intermittently mumbles. No chest pain, palpitations, or shortness of breath. No nausea. Denies feelings of diarrhea or BM. No chills. Review of Systems Review of Systems: as per HPI Physical Exam Physical Exam: General: Somnolent-appearing 70-year-old female who is lying back in her hospital bed, silvia, upon my arrival. She is alert to person and time of day. NAD. HEENT: NCAT. Eyes - Sclera are white, anicteric, and without injection. PERRL. Mouth - MMM with no tonsillar edema or exudates. Cardiac: Normal rate with regular rhythm; detailed auscultation exam limited by habitus, but of what could be heard: S1 and S2 present with no murmurs, rubs, or gallops. Pulmonary: Mildly increased respiratory effort with symmetric expansion of the chest. No use of accessory muscles. Ausculatory exam difficult sec to habitus, but of what could be heard: diminished lung sounds, no appreciable crackles or wheezes Abdominal: Extensively large ventral hernia that deviates to the left. No TTP today. No rebound or involuntary guarding. Extremities: Upper and lower extremities are warm and well perfused. Capillary refill assessed in UE was approx. 4 seconds. Results & Data Results & Data ([facility]) Vital Signs (Past 12 Hours) Vital Signs Temp Pulse Resp BP Pulse Ox 01/11/21 04:01 38.6 C H 108 H 28 H 130/59 L 93 01/11/21 03:16 106 H 29 H 113/57 L 94 01/11/21 02:01 94 H 29 H 110/53 L 93 01/11/21 01:32 90 28 H 129/49 L 94 01/11/21 01:01 85 27 H 106/66 94 01/11/21 00:51 92 H 29 H 92/67 L 93 01/11/21 00:31 102 H 25 H 114/66 95 01/11/21 00:22 103 H 24 104/71 96 01/11/21 00:01 37.2 C 83 26 H 100/56 L 94 01/10/21 23:51 93 H 25 H 106/67 95 01/10/21 23:31 99 H 27 H 113/47 L 99 01/10/21 23:21 87 25 H 105/47 L 95 01/10/21 23:01 85 28 H 92/66 L 95 01/10/21 22:41 91 H 26 H 101/66 96 01/10/21 22:31 88 29 H 93/61 L 95 01/10/21 22:21 82 27 H 89/47 L 96 01/10/21 22:11 81 26 H 78/46 L 95 01/10/21 22:01 78 25 H 79/48 L 98 01/10/21 21:07 102 H 28 H 93/46 L 92 01/10/21 20:06 37.4 C 91 H 25 H 82/40 L 92 01/10/21 19:53 107 H 27 H 79/47 L 93 Resident Activity Tracking Resident Involvement: Resident Care Provided Care Provided: Adult Hospital Medicine (1) Stage III pressure ulcer Pressure injury location: other site Qualified Code(s): L89.893 - Pressure ulcer of other site, stage 3 (2) Diabetes mellitus, type 2 Diabetes mellitus complication status: without complication Diabetes mellitus correction insulin use: without director long term care use Qualified Code(s): E11.9 - Type 2 diabetes mellitus without complications (3) Back pain Back pain laterality: midline Back pain location: low back pain Chronicity: chronic Sciatica presence: without sciatica Qualified Code(s): M54.5 - Low back pain; G89.29 - Other chronic pain (4) Depression Active/Remission status: remission status unspecified Depression Type: major depressive disorder Major depression recurrence: unspecified whether recurrent Qualified Code(s): F32.9 - Major depressive disorder, single episode, unspe cified (5) Hyperlipidemia Hyperlipidemia type: unspecified Qualified Code(s): E78.5 - Hyperlipidemia, unspecified (6) Chronic obstructive pulmonary disease COPD type: unspecified COPD Qualified Code(s): J44.9 - Chronic obstructive pulmonary disease, unspecified (7) Hypertension Hypertension type: essential hypertension Qualified Code(s): I10 - Essential (primary) hypertension (8) Obesity Body mass index: BMI 38.0-38.9 Obesity classification: adult class 2 (BMI 35 - 39.9) Obesity type: unspecified obesity type Serious obesity comorbidity presence: with serious comorbidity Qualified Code(s): E66.01 - Morbid (severe) obesity due to excess calories; Z68.38 - Body mass index [BMI] 38.0-38.9, adult
[2021-01-11] MEDS ORDERED: MAGNESIUM SULFATE / D5W 1 GM/100 ML BAG IV ONE (06:30)
[2021-01-11] MEDS: POTASSIUM CHLORIDE / WTR 10 MEQ/100 ML PLCT IV SCH ×8 (07:02→14:55)
[2021-01-11 07:03] LABS: Appearance Urine Clear (Clear); Bacteria Urine Automated Negative (Negative); Bilirubin Urine Negative (Negative); Blood Urine 1+ (Negative); Color Urine Yellow; Glucose Urine UA Negative (Negative); Ketones Urine Negative (Negative); Leukocyte Esterase Urine Trace (Negative); Nitrite Urine Negative (Negative); Protein Urine Negative (Negative); RBC Urine Automated 0-4 /hpf (0-4); Specific Gravity Urine 1.009 (1.000-1.030); Urobilinogen Urine Negative (Negative)
[2021-01-11] MEDS: INSULIN ASPART 100 UNITS/ML 3 ML PEN SC SCH ×4 (07:46→21:02)
[2021-01-11] MEDS ORDERED: D5W AND 1/2NSS 1,000 ML IV SCH ×2 (08:00→09:00)
--- NOTE | 2021-01-11 08:18 | XRay Report ---
XR chest 1V portable HISTORY: 70 years-old Female f/u follow-up study in a patient with acute shortness of breath COMPARISON: Chest radiograph 01/08/2021 TECHNIQUE: Portable AP view of the chest FINDINGS: Cardiac silhouette is moderately enlarged. Pulmonary vascular congestion with progressively worsened reticular interstitial opacities. Right hemidiaphragmatic elevation. Trace pleural effusions with bib asilar opacities, also worsened from comparison. There is an enteric tube present coursing below the diaphragm with distal tip outside the [id number]. Reverse right shoulder total joint arthroplasty. Chronic deformity of the left glenohumeral joint. IMPRESSION: 1. Cardiomegaly with progressively worsened pulmonary edema. 2. Small pleural effusions with bibasilar opacities suggestive of atelectasis versus pneumonitis. 3. Enteric tube courses below the diaphragm. ACT 112: Negative or not required by law. The above report was generated using voice recognition software. It may contain grammatical, syntax o r spelling errors. Electronically signed by: Dre Burleson M.D. 01/11/2021 8:17 AM
--- NOTE | 2021-01-11 08:26 | Billing Data ---
Date of Service January 10, 2021 Coding Level of Care Code Critical Care 1st 30-74 mins
[2021-01-11] MEDS: DOCUSATE SODIUM/SENNA 50/8.6MG TAB PO SCH (08:50)
[2021-01-11] MEDS: INSULIN GLARGINE SOLOSTAR 100 UNITS/ML 3 ML PEN SC SCH ×2 (08:51→21:05)
[2021-01-11] MEDS: GABAPENTIN 300 MG CAP PO SCH (08:54)
--- NOTE | 2021-01-11 08:57 | Billing Data ---
Date of Service January 11, 2021 Coding Level of Care Code Critical Care 1st 30-74 mins
[2021-01-11] MEDS: NORMOSOL-R 1,000 ML IV SCH ×2 (10:14→20:24)
--- NOTE | 2021-01-11 10:37 | Pharmacy Report ---
Pharmacy Glycemic Short Note 2 - Date of Service January 11, 2021 - Glycemic Short BSG Results (Last 24 hours): 01/10/21 01/10/21 01/10/21 11:05 12:59 15:27 Glucose POC Glucose 160 H 144 H 162 H 01/10/21 01/10/21 01/10/21 18:17 20:25 21:31 Glucose POC Glucose 207 H 225 H 218 H 01/10/21 01/10/21 01/11/21 22:28 23:27 00:29 Glucose POC Glucose 218 H 207 H 205 H 01/11/21 01/11/21 01/11/21 01:31 02:21 03:09 Glucose POC Glucose 196 H 190 H 191 H 01/11/21 01/11/21 01/11/21 04:48 05:30 07:33 Glucose 168 H POC Glucose 143 H 128 H 01/11/21 01/11/21 08:29 09:32 Glucose POC Glucose 123 H 133 H OUTPATIENT ANTIDIABETIC REGIMEN: * Januvia 100 mg daily * HBA1C = 15.3% ASSESSMENT: 01/11/21 * Patient transferred to ICU secondary to hypotension, EYAD and need for pressor support * Patient remains on insulin drip this AM with infusion rates 4-5 units/hr which are currently producing desirable BSGs. * Will continue IV insulin drip relatively high infusion rates, continued norepi provision (currently running 0.12mcg/kg/min) and ongoing NPO status. * Will add "moderate" wt-based dose of Lantus, however, as this will allow for easier drip transition in the future. 01/10/21 * patient was start on insulin infusion yesterday for BSGs > 350 mg/dL x 2. Continued on insulin infusion overnight (drip rates were 5--> 4--> 4.8 --> 2.9 --> 4.25 --> 6 --> 4.8). * Patient with EYAD and hypotension. * Continue insulin infusion due to hemodynamically instability. 01/09/21 * Traci Roman is a 70 y/o F with a PMH of T2DM on Januvia 100 mg daily. * She is admitted with hyperglycemia. BSGs have been 516- 438 mg/dL on admission. Overnight BSG was 368 mg/dL. Morning BSG was 367 mg/dL. * Patient received 10 units of IV and SQ regular insulin yesterday as well as 15 units of Lantus around 1 am. * Give additional 20 units this morning of Lantus to equal weight-based stress of 2 Lantus (total of 35 units). Start weight-based stress of 3 Novolog. * IV insulin bolus for AM blood sugar. Reached out to provider to have some potassium supplementation due to K of 3.8. PLAN FOR INPATIENT GLYCEMIC CONTROL: * Hold outpatient oral diabetes medications (sitagliptin) * Insulin infusion goal range 120-180 mg/dL * Bolus insulin * NovoLog: Nutritional / Prandial insulin per carb ratio of 1 unit per 5 grams CHO consumed PLAN FOR DISCHARGE: * To be determined
[2021-01-11] MEDS ORDERED: INSULIN PROTOCOL GOAL RANGE ONE (10:40)
[2021-01-11 12:37] LABS: BUN Creatinine Ratio 41.9 (10-20); Calcium 7.8 mg/dl (8.5-10.1); Creatinine Clr Calc Pharmacy 82.9 ml/min; Est GFR (African American) 95.8 ml/min; Est GFR (Non-African American) 82.7 ml/min
[2021-01-11 13:10] LABS: Potassium 4.5 mmol/L (3.5-5.1)
[2021-01-11] MEDS: GABAPENTIN 250 MG/5 ML 470 ML BTL PO SCH ×2 (13:42→21:05)
[2021-01-11] MEDS ORDERED: NORMOSOL-R 500 ML IV ONE (16:40)
[2021-01-11] MEDS: INSULIN REGULAR 250 UNITS in SODIUM CHLORIDE 0.9% 247.5 ML IV SCH (18:52)
[2021-01-11] MEDS: ASPIRIN 81 MG CHEW PO SCH (21:03)
[2021-01-11] MEDS: QUEtiapine FUMARATE 25 MG TABLET PO SCH (21:03)
[2021-01-11] MEDS: ATORVASTATIN 40 MG TAB PO SCH (21:03)
--- NOTE | 2021-01-11 22:26 | Hospitalist Progress Note ---
Date of Service January 11, 2021 Assessment & Plan (1) Shock: Cont on levophed to maintain MAP>65. Renal function on BMP improved today. Etiology- suspect hypovolemic; can't exclude septic; can't exclude component of pre-load dependency due to right-sided CHF, leading to low systemic BP in setti ng of hypovolemia. Could have abdominal sepsis from the possible pSBO as seen on CT yesterday. Cont IV fluids and pressor agents as per ICU attending. Appreciate Dr Dang's assistance. Of note - LV function wnl. Cortisol wnl. (2) SIRS (systemic inflammatory response syndrome): fever overnight. cause?? consider repeat COVID testing. cipro/flagyl are for GI issues as below. blood cx's neg to date. consider repeat imaging of chest and/or abd/pelvis. (3) ATN (acute tubular necrosis): 2nd shock. resolved with supportive care. BMP am. (4) Hyperkalemia: 2nd to EYAD/ATN. Resolved. (5) Encephalopathy: Pt's reported confusion for 3-4 weeks pre-admission. Mental status is improved today with Rx of hyperglycemia, Rx of her shock state, etc. Cannot exclude subacute stroke contributing. Cannot exclude that mildly elevated ammonia level could be contributing. Consider MRI brain once out of ICU. Of note - TSH wnl; consider checking B12, B1, etc. (6) Chronic respiratory failure with hypoxia: on home O2. stable at this time. (7) Diabetes mellitus type 2, uncontrolled: severely uncontrolled T2DM. was only on oral agents at home. she will need intensive insulin regimen. cont insulin drip per ICU protocol. (8) Uncontrolled type 2 diabetes mellitus with hyperosmolarity, without long- term current use of insulin: hyperosmolarity and hyperglycemia improved/resolved (9) Hypertension: now with shock. holding all anti-hypertensive medication. (10) Chronic obstructive pulmonary disease: severe. no obvious exacerbation at this time. cont NC O2. (11) Ventral hernia: very large just to left of midline hernia containing large amounts of bowel, a portion of both kidneys, etc. was told in the past she is not a surgical candidate. on the CT completed 01/10 there were a few prominent loops of bowel contained within the hernia sac. cannot exclude a partial SBO thus patient made NPO and NG tube placed. cont NG tube and NPO status. remains on cipro/flagyl if there is "abdominal sepsis." (12) Peripheral neuropathy: cause of b/l leg pains? suspect this is diabetic neuropathy. cont gabapentin. (13) Chronic right-sided congestive heart failure: echo with chronic right-sided CHF / cor pulmonale. hypovolemia will cause poor venous return / preload. this will make her shock worse. hold any diuretics. (14) Dehydration: marked - in the setting of severe hyperglycemia. improved s/p fluid resuscitation yesterday. (15) DVT prophylaxis: lovenox BID replace low mag per ICU protocol updated at bedside 01/10 Admission and Anticipated Discharge Date Admission Date: January 08, 2021 Subjective During my visit patient was in restraints. She denied abd pain or cp. Denied dyspnea. She was more awake/alert than yesterday -- knew it was "" and that she was in the hospital. Knew it was December. When I asked her why she was in the hospital she said "because my sugar was 700." Remains on low-dose levophed. NG tube in place for possible pSBO. Review of Systems Constitutional: + fever and + fatigue Respiratory: no cough and no dyspnea Cardiovascular: no chest pain and no orthopnea Gastrointestinal: no abdominal pain and no nausea Physical Exam Constitutional: + morbidly obese; no acute distress and no altered mental status (MS improved today ) ENMT: Nose: + external nose abnormality (NG tube in place ) Mouth: + dry oral mucous membranes Respiratory: no respiratory distress Auscultation: + diminished lung sounds (bases ) and + wheezes (b/l) Cardiovascular: Rate/Rhythm: regular rate and regular rhythm Heart Sounds: normal S1 and normal S2; no murmur Vessels: posterior tibial pulses present and dorsalis pedis pulses present; no JVD Extremities: no edema perfusion improved today Gastrointestinal (Abdomen): Inspection/Auscultation: normal bowel sounds and + visible herniation (left abdomen - very large ); abdomen not distended Percussion/Palpation: + hernia (large ventral hernia to L of midline; does reduce some; very distended); abdomen nontender (including over the large ventral hernia), no guarding, abdomen not rigid and no hepatosplenomegaly Skin: + pallor Psychiatric: Orientation: oriented to person, oriented to place and oriented to time Results & Data Results & Data ([facility]) Vital Signs (Past 12 Hours) Vital Signs Pulse Resp BP Pulse Ox 01/11/21 17:16 87 25 H 101/52 L 93 01/11/21 17:02 115 H 26 H 109/57 L 91 01/11/21 16:47 93 H 25 H 112/70 93 01/11/21 16:32 93 H 29 H 106/53 L 94 01/11/21 16:17 89 22 98/59 L 93 01/11/21 16:02 115 H 39 H 101/58 L 93 01/11/21 16:00 95 H 01/11/21 15:47 115 H 26 H 73/58 L 92 01/11/21 15:32 120 H 25 H 118/69 93 01/11/21 15:17 111 H 32 H 123/64 99 01/11/21 15:03 113 H 30 H 111/69 92 01/11/21 14:47 110 H 26 H 130/76 92 01/11/21 14:32 107 H 23 126/72 97 01/11/21 14:17 113 H 40 H 110/79 92 01/11/21 14:02 116 H 21 101/87 93 01/11/21 13:47 109 H 34 H 122/69 92 01/11/21 13:32 110 H 28 H 89/72 L 92 01/11/21 13:17 96 H 31 H 116/65 93 01/11/21 13:02 114 H 30 H 118/78 94 01/11/21 12:47 103 H 32 H 117/62 92 01/11/21 12:31 105 H 27 H 109/68 92 01/11/21 12:17 102 H 31 H 114/64 92 01/11/21 12:00 113 H 29 H 91 01/11/21 11:50 109 H 24 91 01/11/21 11:47 110 H 26 H 92 01/11/21 11:31 110 H 30 H 113/60 94 01/11/21 11:17 87 22 112/43 L 93 01/11/21 11:01 113 H 32 H 97/59 L 92 01/11/21 10:47 114 H 26 H 93/51 L 93 01/11/21 10:32 115 H 35 H 92/58 L 92 Laboratory Results Laboratory Results - last 24 hr 01/10/21 01/10/2101/11/21 22:28 23:27 00:29 WBC RBC Hgb Hct MCV MCH MCHC RDW Std Deviation RDW Coeff of Vikas Plt Count MPV Immature Gran % (Auto) Neut % (Auto) Lymph % (Auto) Keith % (Auto) Eos % (Auto) Baso % (Auto) Neut # (Auto) Lymph # (Auto) Keith # (Auto) Eos # (Auto) Baso # (Auto) Immature Gran # (Auto) Sodium Potassium Chloride Carbon Dioxide Anion Gap BUN Creatinine Est Cr Clr Drug Dosing Est GFR ( Amer) Est GFR (Non-Af Amer) BUN/Creatinine Ratio Glucose POC Glucose 218 H 207 H 205 H Calcium Phosphorus Magnesium Total Bilirubin AST ALT Alkaline Phosphatase Ammonia C-Reactive Protein Total Protein Albumin Globulin Albumin/Globulin Ratio Specimen Hemolysis Urine Color Urine Appearance Urine pH Ur Specific [place] Urine Protein Urine Glucose (UA) Urine Ketones Urine Blood Urine Nitrite Urine Bilirubin Urine Urobilinogen Ur Leukocyte Esterase Urine WBC (Auto) Urine RBC (Auto) U Hyaline Cast (Auto) U Epithel Cells (Auto) Urine Bacteria (Auto) 01/11/21 01/11/21 01/11/21 01:31 02:21 03:09 WBC RBC Hgb Hct MCV MCH MCHC RDW Std Deviation RDW Coeff of Vikas Plt Count MPV Immature Gran % (Auto) Neut % (Auto) Lymph % (Auto) Keith % (Auto) Eos % (Auto) Baso % (Auto) Neut # (Auto) Lymph # (Auto) Keith # (Auto) Eos # (Auto) Baso # (Auto) Immature Gran # (Auto) Sodium Potassium Chloride Carbon Dioxide Anion Gap BUN Creatinine Est Cr Clr Drug Dosing Est GFR ( Amer) Est GFR (Non-Af Amer) BUN/Creatinine Ratio Glucose POC Glucose 196 H 190 H 191 H Calcium Phosphorus Magnesium Total Bilirubin AST ALT Alkaline Phosphatase Ammonia C-Reactive Protein Total Protein Albumin Globulin Albumin/Globulin Ratio Specimen Hemolysis Urine Color Urine Appearance Urine pH Ur Specific [place] Urine Protein Urine Glucose (UA) Urine Ketones Urine Blood Urine Nitrite Urine Bilirubin Urine Urobilinogen Ur Leukocyte Esterase Urine WBC (Auto) Urine RBC (Auto) U Hyaline Cast (Auto) U Epithel Cells (Auto) Urine Bacteria (Auto) 01/11/21 01/11/21 01/11/21 04:48 04:48 04:48 WBC 11.40 H RBC 4.63 Hgb 14.4 Hct 42.8 MCV 92.4 MCH 31.1 MCHC 33.6 RDW Std Deviation 55.8 H RDW Coeff of Vikas 16.6 H Plt Count 277 MPV 9.4 Immature Gran % (Auto) 0.4 Neut % (Auto) 71.7 Lymph % (Auto) 9.6 Keith % (Auto) 18.2 Eos % (Auto) 0.0 Baso % (Auto) 0.1 Neut # (Auto) 8.17 H Lymph # (Auto) 1.10 L Keith # (Auto) 2.07 H Eos # (Auto) 0.00 Baso # (Auto) 0.01 Immature Gran # (Auto) 0.05 H Sodium 138 Potassium 3.0 L D Chloride 109 H Carbon Dioxide 24 Anion Gap 5.0 BUN 36 H Creatinine 0.80 D Est Cr Clr Drug Dosing 76.6 Est GFR ( Amer) 87.2 Est GFR (Non-Af Amer) 75.2 BUN/Creatinine Ratio 45.6 H Glucose 168 H POC Glucose Calcium 7.8 L D Phosphorus 3.8 Magnesium 1.7 L Total Bilirubin 0.6 AST 26 ALT 27 Alkaline Phosphatase 92 Ammonia 44.0 H C-Reactive Protein 10.40 H Total Protein 6.2 L Albumin 2.5 L Globulin 3.7 Albumin/Globulin Ratio 0.7 L Specimen Hemolysis Urine Color Urine Appearance Urine pH Ur Specific [place] Urine Protein Urine Glucose (UA) Urine Ketones Urine Blood Urine Nitrite Urine Bilirubin Urine Urobilinogen Ur Leukocyte Esterase Urine WBC (Auto) Urine RBC (Auto) U Hyaline Cast (Auto) U Epithel Cells (Auto) Urine Bacteria (Auto) 01/11/21 01/11/21 01/11/21 05:28 05:30 07:33 WBC RBC Hgb Hct MCV MCH MCHC RDW Std Deviation RDW Coeff of Vikas Plt Count MPV Immature Gran % (Auto) Neut % (Auto) Lymph % (Auto) Keith % (Auto) Eos % (Auto) Baso % (Auto) Neut # (Auto) Lymph # (Auto) Keith # (Auto) Eos # (Auto) Baso # (Auto) Immature Gran # (Auto) Sodium Potassium Chloride Carbon Dioxide Anion Gap BUN Creatinine Est Cr Clr Drug Dosing Est GFR ( Amer) Est GFR (Non-Af Amer) BUN/Creatinine Ratio Glucose POC Glucose 143 H 128 H Calcium Phosphorus Magnesium Total Bilirubin AST ALT Alkaline Phosphatase Ammonia C-Reactive Protein Total Protein Albumin Globulin Albumin/Globulin Ratio Specimen Hemolysis Urine Color Yellow Urine Appearance Clear Urine pH 5.0 Ur Specific [place] 1.009 Urine Protein Negative Urine Glucose (UA) Negative Urine Ketones Negative Urine Blood 1+ H Urine Nitrite Negative Urine Bilirubin Negative Urine Urobilinogen Negative Ur Leukocyte Esterase Trace H Urine WBC (Auto) 1-5 Urine RBC (Auto) 0-4 U Hyaline Cast (Auto) 1-5 U Epithel Cells (Auto) 10-20 H Urine Bacteria (Auto) Negative 01/11/21 01/11/21 01/11/21 08:29 09:32 10:38 WBC RBC Hgb Hct MCV MCH MCHC RDW Std Deviation RDW Coeff of Vikas Plt Count MPV Immature Gran % (Auto) Neut % (Auto) Lymph % (Auto) Keith % (Auto) Eos % (Auto) Baso % (Auto) Neut # (Auto) Lymph # (Auto) Keith # (Auto) Eos # (Auto) Baso # (Auto) Immature Gran # (Auto) Sodium Potassium Chloride Carbon Dioxide Anion Gap BUN Creatinine Est Cr Clr Drug Dosing Est GFR ( Amer) Est GFR (Non-Af Amer) BUN/Creatinine Ratio Glucose POC Glucose 123 H 133 H 169 H Calcium Phosphorus Magnesium Total Bilirubin AST ALT Alkaline Phosphatase Ammonia C-Reactive Protein Total Protein Albumin Globulin Albumin/Globulin Ratio Specimen Hemolysis Urine Color Urine Appearance Urine pH Ur Specific [place] Urine Protein Urine Glucose (UA) Urine Ketones Urine Blood Urine Nitrite Urine Bilirubin Urine Urobilinogen Ur Leukocyte Esterase Urine WBC (Auto) Urine RBC (Auto) U Hyaline Cast (Auto) U Epithel Cells (Auto) Urine Bacteria (Auto) 01/11/21 01/11/21 01/11/21 11:34 11:44 12:40 WBC RBC Hgb Hct MCV MCH MCHC RDW Std Deviation RDW Coeff of Vikas Plt Count MPV Immature Gran % (Auto) Neut % (Auto) Lymph % (Auto) Keith % (Auto) Eos % (Auto) Baso % (Auto) Neut # (Auto) Lymph # (Auto) Keith # (Auto) Eos # (Auto) Baso # (Auto) Immature Gran # (Auto) Sodium 138 Potassium 4.5 D Chloride 110 H Carbon Dioxide 21 Anion Gap 7.0 BUN 31 H Creatinine 0.74 Est Cr Clr Drug Dosing 82.9 Est GFR ( Amer) 95.8 Est GFR (Non-Af Amer) 82.7 BUN/Creatinine Ratio 41.9 H Glucose 176 H POC Glucose 159 H 167 H Calcium 7.8 L Phosphorus Magnesium Total Bilirubin AST ALT Alkaline Phosphatase Ammonia C-Reactive Protein Total Protein Albumin Globulin Albumin/Globulin Ratio Specimen Hemolysis Urine Color Urine Appearance Urine pH Ur Specific [place] Urine Protein Urine Glucose (UA) Urine Ketones Urine Blood Urine Nitrite Urine Bilirubin Urine Urobilinogen Ur Leukocyte Esterase Urine WBC (Auto) Urine RBC (Auto) U Hyaline Cast (Auto) U Epithel Cells (Auto) Urine Bacteria (Auto) 01/11/21 01/11/21 01/11/21 13:40 14:58 17:10 WBC RBC Hgb Hct MCV MCH MCHC RDW Std Deviation RDW Coeff of Vikas Plt Count MPV Immature Gran % (Auto) Neut % (Auto) Lymph % (Auto) Keith % (Auto) Eos % (Auto) Baso % (Auto) Neut # (Auto) Lymph # (Auto) Keith # (Auto) Eos # (Auto) Baso # (Auto) Immature Gran # (Auto) Sodium Potassium Chloride Carbon Dioxide Anion Gap BUN Creatinine Est Cr Clr Drug Dosing Est GFR ( Amer) Est GFR (Non-Af Amer) BUN/Creatinine Ratio Glucose POC Glucose 151 H 138 H 154 H Calcium Phosphorus Magnesium Total Bilirubin AST ALT Alkaline Phosphatase Ammonia C-Reactive Protein Total Protein Albumin Globulin Albumin/Globulin Ratio Specimen Hemolysis Urine Color Urine Appearance Urine pH Ur Specific [place] Urine Protein Urine Glucose (UA) Urine Ketones Urine Blood Urine Nitrite Urine Bilirubin Urine Urobilinogen Ur Leukocyte Esterase Urine WBC (Auto) Urine RBC (Auto) U Hyaline Cast (Auto) U Epithel Cells (Auto) Urine Bacteria (Auto) 01/11/21 01/11/21 18:55 21:00 WBC RBC Hgb Hct MCV MCH MCHC RDW Std Deviation RDW Coeff of Vikas Plt Count MPV Immature Gran % (Auto) Neut % (Auto) Lymph % (Auto) Keith % (Auto) Eos % (Auto) Baso % (Auto) Neut # (Auto) Lymph # (Auto) Keith # (Auto) Eos # (Auto) Baso # (Auto) Immature Gran # (Auto) Sodium Potassium Chloride Carbon Dioxide Anion Gap BUN Creatinine Est Cr Clr Drug Dosing Est GFR ( Amer) Est GFR (Non-Af Amer) BUN/Creatinine Ratio Glucose POC Glucose 159 H 157 H Calcium Phosphorus Magnesium Total Bilirubin AST ALT Alkaline Phosphatase Ammonia C-Reactive Protein Total Protein Albumin Globulin Albumin/Globulin Ratio Specimen Hemolysis Urine Color Urine Appearance Urine pH Ur Specific [place] Urine Protein Urine Glucose (UA) Urine Ketones Urine Blood Urine Nitrite Urine Bilirubin Urine Urobilinogen Ur Leukocyte Esterase Urine WBC (Auto) Urine RBC (Auto) U Hyaline Cast (Auto) U Epithel Cells (Auto) Urine Bacteria (Auto) blood cx's neg x 24 hours PG Care Time/CCT Total # of Minutes Spent Total Time Spent with Patient: Total time spent is greater than 50% in coordination of care (as documented) at patient's floor/unit and/or counseling patient: Coding Level of Care Code 93242 Subseq Hosp Care Lvl 2 Diagnoses Shock R57.9 SIRS (systemic inflammatory response syndrome) R65.10 ATN (acute tubular necrosis) N17.0 Hyperkalemia E87.5 Encephalopathy G93.40 Chronic respiratory failure with hypoxia J96.11 Diabetes mellitus type 2, uncontrolled E11.65 Uncontrolled type 2 diabetes mellitus with hyperosmolarity, without long-term current use of insulin E11.00 Hypertension I10 Hypertension type: essential hypertension Chronic obstructive pulmonary disease J44.9 COPD type: unspecified COPD Ventral hernia K43.9 Peripheral neuropathy G62.89 Peripheral neuropathy type: polyneuropathy, other Chronic right-sided congestive heart failure I50.812 Dehydration E86.0 DVT prophylaxis Z29.9 (1) Peripheral neuropathy Peripheral neuropathy type: polyneuropathy, other Qualified Code(s): G62.89 - Other specified polyneuropathies (2) Chronic obstructive pulmonary disease COPD type: unspecified COPD Qualified Code(s): J44.9 - Chronic obstructive pulmonary disease, unspecified (3) Hypertension Hypertension type: essential hypertension Qualified Code(s): I10 - Essential (primary) hypertension
[2021-01-12] MEDS: metroNIDAZOLE 500 MG/100 ML BAG IV SCH ×2 (00:42→08:14)
[2021-01-12] MEDS: NOREPINEPHRINE/D5W 8 MG/508 ML BAG IV SCH ×2 (01:18→08:10)
[2021-01-12 04:57] LABS: Hematocrit (blood only) 41.2 % (37-47); Hemoglobin 13.3 g/dL (12.0-16.0); Mean Corpuscular Hemoglobin 30.5 pg (25-34); Mean Corpuscular Hgb Conc 32.3 g/dL (32-36); Mean Corpuscular Volume 94.5 fL (80-100); Mean Platelet Volume 9.4 fL (7.4-10.4); Platelet Count 230 K/uL (130-400); RDW Coefficient of Variation 16.8 % (11.5-14.5); RDW Standard Deviation 58.3 fL (36.4-46.3); Red Blood Count 4.36 M/uL (4.2-5.4); White Blood Count 10.56 K/uL (4.8-10.8)
[2021-01-12 05:11] LABS: Albumin Level 2.4 gm/dl (3.4-5.0); BUN Creatinine Ratio 45.2 (10-20); Calcium 7.6 mg/dl (8.5-10.1); Creatinine Clr Calc Pharmacy 115.8 ml/min; Est GFR (African American) 112.3 ml/min; Est GFR (Non-African American) 96.9 ml/min; Magnesium 1.9 mg/dl (1.8-2.4); Potassium 3.9 mmol/L (3.5-5.1)
[2021-01-12 05:20] LABS: Basophils # (auto) 0.02 K/uL (0-0.2); Basophils % (auto) 0.2 %; Echinocytes 2+; Eosinophils # (auto) 0.02 K/uL (0-0.5); Eosinophils % (auto) 0.2 %; Immature Granulocytes # (auto) 0.05 K/uL (0.00-0.02); Immature Granulocytes % (auto) 0.5 %; Lymphocytes # (auto) 0.92 K/uL (1.2-3.4); Lymphocytes % (auto) 8.7 %; Monocytes # (auto) 1.63 K/uL (0.11-0.59); Monocytes % (auto) 15.4 %; Neutrophils # (auto) 7.92 K/uL (1.4-6.5); Toxic Vacuolation 2+
[2021-01-12 05:26] LABS: Albumin Globulin Ratio 0.7 (0.9-2); Bilirubin,Total 0.8 mg/dl (0.2-1); Globulin 3.4 gm/dl (2.5-4.0); Total Protein 5.8 gm/dl (6.4-8.2)
[2021-01-12] MEDS: CIPROFLOXACIN / D5W 400 MG/200 ML BAG IV SCH (06:00)
[2021-01-12] MEDS: NORMOSOL-R 1,000 ML IV SCH ×3 (06:00→22:01)
[2021-01-12] MEDS: ENOXAPARIN INJ 40 MG/0.4 ML SYR SQ SCH ×2 (06:16→17:11)
[2021-01-12] MEDS ORDERED: POTASSIUM PHOS 3 MMOL/1 ML INFUSION IV STA (06:38)
[2021-01-12] MEDS ORDERED: POTASSIUM PHOSPHATE 21 MMOL in SODIUM CHLORIDE 0.9% 500 ML IV STA (06:40)
[2021-01-12] MEDS ORDERED: NORMOSOL-R 500 ML IV ONE (07:11)
[2021-01-12] MEDS: INSULIN ASPART 100 UNITS/ML 3 ML PEN SC SCH ×5 (08:12→20:12)
[2021-01-12] MEDS: DOCUSATE SODIUM/SENNA 50/8.6MG TAB PO SCH (08:12)
[2021-01-12] MEDS: GABAPENTIN 250 MG/5 ML 470 ML BTL PO SCH ×3 (08:14→20:16)
--- NOTE | 2021-01-12 08:40 | XRay Report ---
XR chest 1V portable CLINICAL HISTORY: f/u COMPARISON STUDY: Chest radiograph January 11, 2021. FINDINGS: Right shoulder arthroplasty is incidentally noted. Tip of nasogastric tube is below the low er aspect of this image but at least within the proximal stomach. Patient is rotated. There is no pne umothorax. Diffuse interstitial thickening persists. There are suspected small bilateral pleural effu sions. Cardiomediastinal silhouette is stable. IMPRESSION: 1. Persistent interstitial thickening suggestive of pulmonary edema. 2. Left basilar opacity, similar to prior exam. ACT 112: Negative or not required by law. Electronically signed by: Alan Sanches M.D. 01/12/2021 8:39 AM
--- NOTE | 2021-01-12 08:56 | Critical Care Progress Note ---
Date of Service January 12, 2021 Assessment & Plan (1) Hyperglycemia due to diabetes mellitus: Reason Critically Ill: Traci is a 70-year-old female with a notable history of COPD requiring home oxygen (3lpm), type 2 diabetes, hypertension, hyperlipidemia who presented to [facility] for evaluation of hyperglycemia. During her second night here, she developed HoTN down to 50/30s, with modest response to saline boluses. She requires ICU-level care for intensive hemodynamic monitoring and work-up of her hypotension. Her presentation is currently thought to be due to third spacing around a mild SBO. Neuro - Sedation: none Analgesia: none Metabolic Encephalopathy * Primarily suspect secondary to hypovolemic shock / hypoperfusion, possibly compounded with hypoxemia, in setting of mild SBO and enteritis - likely third spacing * Less concerned this is due to sepsis at present - Tm 37.6, CRP ~10 (in setting of HoTN), continued AMS but improving - CT-A/P demonstrating low-grade SBO +/- enteritis noted - BCX demonstrating NG x 24 hours * Management as below Cardiac - Suspected Hypovolemic Shock * BPs 60-70s/50s upon arrival to ICU -- MAPs have been 60-80s since initiating pressor support * Suspect etiology is likely hypovolemic: hyperglycemia, diarrhea / enteritis, and likely third spacing around low-grade SBO. Hgb stable. -- As above - sepsis considered, but still seems less likely. Await cultures. * Echocardiogram demonstrating hyperdynamic LV, with moderate-severe dilated RV w/ modest decrease in fxn -- patient preload dependent * Weening with pressor support, responding very well to fluids -- Add another 500cc fluid bolus given suspected intravascular depletion. No signs of volume overload this AM. -- Give 25g of 25% albumin x 1 for volume expansion -- mIVF -- Will trial off pressors. Repeat lactate in 2 hours. * Maintain MAP > 65, UOP > 0.5 * Hold home antiHTN Respiratory - COPD * At baseline patient does require 3L NC -- at baseline right now * Review of her chart does not reveal any maintenance medications * Will require pulmonology f/u and PFTs as outpatient GI - Low-grade SBO and/or Enteritis (in setting of known large ventral wall hernia containing most of the GI contents) * CT-AP revealing of mildly dilated fluid-filled loops of small bowel within the hernia with wall thickening - could be secondary to enteritis vs. low-grade SBO * NG tube placed -- 500cc out overnight -- Approx. 4 loose BMs throughout yesterday -- Continue low-intermittent suction * Stop cipro/flagyl * C. diff testing. RENAL/LYTES - Acute Kidney Injury -- Resolved * Previously -- BUN 36 / Cr 1.80 (previously 20/0.91) * Stabilized on AM labs * Continue mIVF * Replete K prn in setting of insulin gtt with Levophed - * [facility] END[facility] - Type 2 Diabetes (A1c on admission = 15.3%) * Glycemic consult previously placed - while on Levophed, was on insulin gtt * Transition to insulin SQ today -- appreciate pharmacy assistance * ICU Hyperglycemia protocol HEME - * H&H Stable at present - will continue to monitor ID - See above - metabolic encephalopathy (neuro), enteritis/SBO (GI) INTEGUMENTARY - * No acute needs LINES/IV ACCESS - PIVs. Patient has been receiving Levophed through peripheral IV - decreasing requirement. Trailing off. Patient is high-risk for removing lines and believe that insertion of an advanced line would have risks, at present, that would outweigh benefits. If continues to have requirement, can revisit this and d/w family. DVT PROPHYLAXIS - Lovenox 40 b.i.d. Thank you for allowing us to be part of this patient's care. Please refer to Dr. Dang's documentation for any further recommendations. (2) Obesity: (3) Back pain: (4) Stage III pressure ulcer: (5) Acute metabolic encephalopathy: (6) Hypertension: (7) Hyperlipidemia: (8) Depression: (9) Anxiety: (10) Chronic obstructive pulmonary disease: (11) Diabetes mellitus, type 2: (12) SBO (small bowel obstruction): Admission and Anticipated Discharge Date Admission Date: January 08, 2021 Supervising Physician Co-Signing Physician Notes Dr. Aguilar was resident physician during care of patient. I separately evaluated patient for weber portions of the history and the exam. I was present during the critical portion of medical decision making, and I discussed the case with the resident. I generally agree with the findings and plan. Patient with partial small bowel obstruction still with 500 mL out overnight. Acute kidney injury has resolved. Still requiring vasoactive medication, volume expansion with 25 g 25% albumin, acute encephalopathy still continues to mildly improve. Wean insulin infusion off. Discontinue antibiotics cultures negative at this point. I have personally spent 40 minutes of critical care time in the direct management of this patient. This is a life/limb threatening event. This includes time spent evaluating patient, direct bedside care, chart review, placing orders, interpretation of diagnostic studies, discussion with consultants, patient, and/or family members regarding treatment decisions, as well as other required patient management activities. This time is exclusive of all separately billable procedures, and teaching time and separate from and in addition to any other critical care service time. Subjective Patient seen at the bedside this morning. No acute events overnight. She denies any pain. She says she is quite thirsty and would like to eat and drink soon as it is possible. She denies any abdominal pain. Denies any nausea. Denies any chest pain, palpitations, shortness of breath. NG tube had an output of approximately 500 cc of green fluid overnight. Patient reported to have four loose BMs yesterday evening. Review of Systems Review of Systems: Constitutional: Denies fever, chills Eyes: Denies double vision ENT: Denies ear pain, sore throat, sinus pain Cardiovascular: Denies Chest pain, chest pressure, palpitations, extremity swelling Respiratory: Denies shortness of breath, cough, sputum production, difficulty breathing Gastrointestinal: Denies nausea, vomiting, constipation, diarrhea Genitourinary: Denies urinary symptoms Musculoskeletal: Denies weakness, muscle aches/pain Integumentary: Denies rash, lesions, bruising Neurological: Denies headache, numbness, tingling, focal weakness Physical Exam Physical Exam: General: Somnolent-appearing 70-year-old female who is lying back in her hospital bed, silvia, upon my arrival. She is alert to person and time of day. NAD. HEENT: NCAT. Eyes - Sclera are white, anicteric, and without injection. PERRL. Mouth - MMM with no tonsillar edema or exudates. Cardiac: Normal rate with regular rhythm; detailed auscultation exam limited by habitus, but of what could be heard: S1 and S2 present with no murmurs, rubs, or gallops. Pulmonary: Mildly increased respiratory effort with symmetric expansion of the chest. No use of accessory muscles. Ausculatory exam difficult sec to habitus, but of what could be heard: diminished lung sounds, no appreciable crackles or wheezes Abdominal: Extensively large ventral hernia that deviates to the left. No TTP today. No rebound or involuntary guarding. Extremities: Upper and lower extremities are warm and well perfused. Capillary refill assessed in UE was approx. 4 seconds. Results & Data Results & Data ([facility]) Vital Signs (Past 12 Hours) Vital Signs Temp Pulse Resp BP Pulse Ox 01/12/21 06:10 79 16 115/77 93 01/12/21 05:02 37.2 C 107 H 20 137/78 93 01/12/21 04:00 93 H 16 111/95 95 01/12/21 03:00 82 18 106/62 94 01/12/21 02:02 79 20 120/60 96 01/12/21 01:02 86 18 110/57 L 91 01/12/21 00:02 37.4 C 86 14 90/50 L 94 01/11/21 23:02 81 21 83/48 L 95 01/11/21 22:02 111 H 31 H 71/51 L 96 01/11/21 21:02 92 H 29 H 85/58 L 93 Resident Activity Tracking Resident Involvement: Resident Care Provided Care Provided: Adult Hospital Medicine (1) Stage III pressure ulcer Pressure injury location: other site Qualified Code(s): L89.893 - Pressure ulcer of other site, stage 3 (2) Diabetes mellitus, type 2 Diabetes mellitus complication status: without complication Diabetes mellitus half-way insulin use: 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 Qualified Code(s): E11.9 - Type 2 diabetes mellitus without complications (3) Back pain Back pain laterality: midline Back pain location: low back pain Chronicity: chronic Sciatica presence: without sciatica Qualified Code(s): M54.5 - Low back pain; G89.29 - Other chronic pain (4) Depression Active/Remission status: remission status unspecified Depression Type: major depressive disorder Major depression recurrence: unspecified whether recurrent Qualified Code(s): F32.9 - Major depressive disorder, single episode, unspecified (5) Hyperlipidemia Hyperlipidemia type: unspecified Qualified Code(s): E78.5 - Hyperlipidemia, unspecified (6) Chronic obstructive pulmonary disease COPD type: unspecified COPD Qualified Code(s): J44.9 - Chronic obstructive pulmonary disease, unspecified (7) Hypertension Hypertension type: essential hypertension Qualified Code(s): I10 - Essential (primary) hypertension (8) Obesity Body mass index: BMI 38.0-38.9 Obesity classification: adult class 2 (BMI 35 - 39.9) Obesity type: unspecified obesity type Serious obesity comorbidity presence: with serious comorbidity Qualified Code(s): E66.01 - Morbid (severe) obesity due to excess calories; Z68.38 - Body mass index [BMI] 38.0-38.9, adult
--- NOTE | 2021-01-12 09:31 | Billing Data ---
Date of Service January 12, 2021 Coding Level of Care Code Critical Care 1st 30-74 mins
--- NOTE | 2021-01-12 09:44 | Hospitalist Progress Note ---
Date of Service January 12, 2021 Assessment & Plan (1) Partial small bowel obstruction: Plan: improving (2) Shock: Plan: improving/resolved (3) SIRS (systemic inflammatory response syndrome): Plan: resolved (4) ATN (acute tubular necrosis): Plan: 2nd shock - resolved (5) Hyperkalemia: Plan: resolved (6) Encephalopathy: Plan: improved (7) Chronic respiratory failure with hypoxia: Plan: stable (8) Diabetes mellitus type 2, uncontrolled: Plan: improved s/p insulin drip this admission (9) Uncontrolled type 2 diabetes mellitus with hyperosmolarity, without long- term current use of insulin: (10) Hypertension: (11) Chronic obstructive pulmonary disease: (12) Ventral hernia: (13) Peripheral neuropathy: (14) Chronic right-sided congestive heart failure: (15) DVT prophylaxis: Plan: 1. Cont NG tube to intermittent low-wall suction. pSBO appears improved given nondistended exam and liquid stool production. Defer NG tube discontinuation to critical care. pSBO cause of shock/hypotension? 2. Antibiotics d/c today - blood cx's negative, no intra-abdominal source of infection. 3. Levophed weaned off for shock. Continue IV fluids. 4. Insulin drip weaned off; pharmacy managing with basal-bolus SC insulin. 5. Repeat labs am. 6. Etiology of fever ? consider repeat cultures. consider repeat COVID testing. Fever may be due to #1. 7. Cont lovenox for DVT proph. 8. Once NG tube has been pulled can then get PT/OT involved. Admission and Anticipated Discharge Date Admission Date: January 08, 2021 Subjective patient resting in bed during my visit restraints have been removed NG tube still in place 500cc+ output since this am patient very awake, alert, oriented and easily following commands she denies abd pain particularly over the hernia no dyspnea, orthopnea, cp no nausea passing liquid stools per staff tele with occasional run of atrial tachycardia Review of Systems Constitutional: + fatigue; no anorexia (wants to eat) Respiratory: no dyspnea Cardiovascular: no chest pain Gastrointestinal: + diarrhea/loose stools; no abdominal pain, no nausea and no vomiting Physical Exam Constitutional: + ill appearing and + morbidly obese; no acute distress and no altered mental status ENMT: Nose: + external nose abnormality (NG tube in place ) Mouth: + dry oral mucous membranes (not as bad today ) Respiratory: normal respiratory effort, lungs clear to auscultation no respiratory distress Auscultation: + diminished lung sounds (bases ) and + wheezes (b/l - mild ) Cardiovascular: Rate/Rhythm: regular rate and regular rhythm Heart Sounds: normal S1 and normal S2; no murmur Vessels: posterior tibial pulses present and dorsalis pedis pulses present; no JVD Extremities: no edema Gastrointestinal (Abdomen): Inspection/Auscultation: normal bowel sounds and + visible herniation (left abdomen - very large - nontender to palpation ); abdomen not distended Percussion/Palpation: + hernia (large ventral hernia to L of midline); abdomen nontender (including over the large ventral hernia), no guarding, abdomen not rigid and no hepatosplenomegaly Skin: + pallor Psychiatric: Orientation: alert, oriented to person, oriented to place and oriented to time Results & Data Results & Data ([facility]) Vital Signs (Past 12 Hours) Vital Signs Temp Pulse Resp BP Pulse Ox 01/12/21 08:02 103 H 0 L 110/65 89 L 01/12/21 07:32 87 0 L 107/59 L 92 01/12/21 07:03 83 4 L 89/59 L 90 01/12/21 06:32 83 0 L 127/61 94 01/12/21 06:10 79 16 115/77 93 01/12/21 06:02 90 0 L 115/77 92 01/12/21 05:32 83 0 L 131/70 95 01/12/21 05:02 37.2 C 82 0 L 137/78 92 01/12/21 04:32 86 0 L 139/69 94 01/12/21 04:02 94 H 93/54 L 92 01/12/21 04:00 93 H 16 111/95 95 01/12/21 03:32 84 112/56 L 95 01/12/21 03:02 82 106/62 95 01/12/21 03:00 82 18 106/62 94 01/12/21 02:32 85 109/57 L 93 01/12/21 02:02 79 20 120/60 96 01/12/21 01:02 86 18 110/57 L 91 01/12/21 00:02 37.4 C 86 14 90/50 L 94 01/11/21 23:02 81 21 83/48 L 95 01/11/21 22:02 111 H 31 H 71/51 L 96 Laboratory Results Laboratory Results - last 24 hr 01/11/21 01/11/21 01/11/21 07:33 08:29 09:32 WBC RBC Hgb Hct MCV MCH MCHC RDW Std Deviation RDW Coeff of Vikas Plt Count MPV Immature Gran % (Auto) Neut % (Auto) Lymph % (Auto) [place] % (Auto) Eos % (Auto) Baso % (Auto) Neut # (Auto) Lymph # (Auto) [place] # (Auto) Eos # (Auto) Baso # (Auto) Immature Gran # (Auto) Toxic Vacuolation Echinocytes Sodium Potassium Chloride Carbon Dioxide Anion Gap BUN Creatinine Est Cr Clr Drug Dosing Est GFR ( Amer) Est GFR (Non-Af Amer) BUN/Creatinine Ratio Glucose POC Glucose 128 H 123 H 133 H Calcium Phosphorus Magnesium Total Bilirubin AST ALT Alkaline Phosphatase Ammonia Total Protein Albumin Globulin Albumin/Globulin Ratio Specimen Hemolysis 01/11/21 01/11/21 01/11/21 10:38 11:34 11:44 WBC RBC Hgb Hct MCV MCH MCHC RDW Std Deviation RDW Coeff of Vikas Plt Count MPV Immature Gran % (Auto) Neut % (Auto) Lymph % (Auto) [place] % (Auto) Eos % (Auto) Baso % (Auto) Neut # (Auto) Lymph # (Auto) [place] # (Auto) Eos # (Auto) Baso # (Auto) Immature Gran # (Auto) Toxic Vacuolation Echinocytes Sodium 138 Potassium 4.5 D Chloride 110 H Carbon Dioxide 21 Anion Gap 7.0 BUN 31 H Creatinine 0.74 Est Cr Clr Drug Dosing 82.9 Est GFR ( Amer) 95.8 Est GFR (Non-Af Amer) 82.7 BUN/Creatinine Ratio 41.9 H Glucose 176 H POC Glucose 169 H 159 H Calcium 7.8 L Phosphorus Magnesium Total Bilirubin AST ALT Alkaline Phosphatase Ammonia Total Protein Albumin Globulin Albumin/Globulin Ratio Specimen Hemolysis 01/11/21 01/11/21 01/11/21 12:40 13:40 14:58 WBC RBC Hgb Hct MCV MCH MCHC RDW Std Deviation RDW Coeff of Vikas Plt Count MPV Immature Gran % (Auto) Neut % (Auto) Lymph % (Auto) [place] % (Auto) Eos % (Auto) Baso % (Auto) Neut # (Auto) Lymph # (Auto) [place] # (Auto) Eos # (Auto) Baso # (Auto) Immature Gran # (Auto) Toxic Vacuolation Echinocytes Sodium Potassium Chloride Carbon Dioxide Anion Gap BUN Creatinine Est Cr Clr Drug Dosing Est GFR ( Amer) Est GFR (Non-Af Amer) BUN/Creatinine Ratio Glucose POC Glucose 167 H 151 H 138 H Calcium Phosphorus Magnesium Total Bilirubin AST ALT Alkaline Phosphatase Ammonia Total Protein Albumin Globulin Albumin/Globulin Ratio Specimen Hemolysis 01/11/21 01/11/21 01/11/21 17:10 18:55 21:00 WBC RBC Hgb Hct MCV MCH MCHC RDW Std Deviation RDW Coeff of Vikas Plt Count MPV Immature Gran % (Auto) Neut % (Auto) Lymph % (Auto) [place] % (Auto) Eos % (Auto) Baso % (Auto) Neut # (Auto) Lymph # (Auto) [place] # (Auto) Eos # (Auto) Baso # (Auto) Immature Gran # (Auto) Toxic Vacuolation Echinocytes Sodium Potassium Chloride Carbon Dioxide Anion Gap BUN Creatinine Est Cr Clr Drug Dosing Est GFR ( Amer) Est GFR (Non-Af Amer) BUN/Creatinine Ratio Glucose POC Glucose 154 H 159 H 157 H Calcium Phosphorus Magnesium Total Bilirubin AST ALT Alkaline Phosphatase Ammonia Total Protein Albumin Globulin Albumin/Globulin Ratio Specimen Hemolysis 01/11/21 01/11/21 01/12/21 23:44 23:46 00:44 WBC RBC Hgb Hct MCV MCH MCHC RDW Std Deviation RDW Coeff of Vikas Plt Count MPV Immature Gran % (Auto) Neut % (Auto) Lymph % (Auto) [place] % (Auto) Eos % (Auto) Baso % (Auto) Neut # (Auto) Lymph # (Auto) [place] # (Auto) Eos # (Auto) Baso # (Auto) Immature Gran # (Auto) Toxic Vacuolation Echinocytes Sodium Potassium Chloride Carbon Dioxide Anion Gap BUN Creatinine Est Cr Clr Drug Dosing Est GFR ( Amer) Est GFR (Non-Af Amer) BUN/Creatinine Ratio Glucose POC Glucose 113 H 108 H 96 Calcium Phosphorus Magnesium Total Bilirubin AST ALT Alkaline Phosphatase Ammonia Total Protein Albumin Globulin Albumin/Globulin Ratio Specimen Hemolysis 01/12/21 01/12/21 01/12/21 01:13 01:41 02:11 WBC RBC Hgb Hct MCV MCH MCHC RDW Std Deviation RDW Coeff of Vikas Plt Count MPV Immature Gran % (Auto) Neut % (Auto) Lymph % (Auto) [place] % (Auto) Eos % (Auto) Baso % (Auto) Neut # (Auto) Lymph # (Auto) [place] # (Auto) Eos # (Auto) Baso # (Auto) Immature Gran # (Auto) Toxic Vacuolation Echinocytes Sodium Potassium Chloride Carbon Dioxide Anion Gap BUN Creatinine Est Cr Clr Drug Dosing Est GFR ( Amer) Est GFR (Non-Af Amer) BUN/Creatinine Ratio Glucose POC Glucose 122 H 131 H 158 H Calcium Phosphorus Magnesium Total Bilirubin AST ALT Alkaline Phosphatase Ammonia Total Protein Albumin Globulin Albumin/Globulin Ratio Specimen Hemolysis 01/12/21 01/12/21 01/12/21 03:06 04:10 04:37 WBC 10.56 RBC 4.36 Hgb 13.3 Hct 41.2 MCV 94.5 MCH 30.5 MCHC 32.3 RDW Std Deviation 58.3 H RDW Coeff of Vikas 16.8 H Plt Count 230 MPV 9.4 Immature Gran % (Auto) 0.5 Neut % (Auto) 75.0 Lymph % (Auto) 8.7 [place] % (Auto) 15.4 Eos % (Auto) 0.2 Baso % (Auto) 0.2 Neut # (Auto) 7.92 H Lymph # (Auto) 0.92 L [place] # (Auto) 1.63 H Eos # (Auto) 0.02 Baso # (Auto) 0.02 Immature Gran # (Auto) 0.05 H Toxic Vacuolation 2+ Echinocytes 2+ Sodium Potassium Chloride Carbon Dioxide Anion Gap BUN Creatinine Est Cr Clr Drug Dosing Est GFR ( Amer) Est GFR (Non-Af Amer) BUN/Creatinine Ratio Glucose POC Glucose 170 H 200 H Calcium Phosphorus Magnesium Total Bilirubin AST ALT Alkaline Phosphatase Ammonia Total Protein Albumin Globulin Albumin/Globulin Ratio Specimen Hemolysis 01/12/21 01/12/21 01/12/21 04:37 04:37 05:41 WBC RBC Hgb Hct MCV MCH MCHC RDW Std Deviation RDW Coeff of Vikas Plt Count MPV Immature Gran % (Auto) Neut % (Auto) Lymph % (Auto) [place] % (Auto) Eos % (Auto) Baso % (Auto) Neut # (Auto) Lymph # (Auto) [place] # (Auto) Eos # (Auto) Baso # (Auto) Immature Gran # (Auto) Toxic Vacuolation Echinocytes Sodium 138 Potassium 3.9 Chloride 109 H Carbon Dioxide 25 Anion Gap 4.0 BUN 24 H Creatinine 0.53 L Est Cr Clr Drug Dosing 115.8 Est GFR ( Amer) 112.3 Est GFR (Non-Af Amer) 96.9 BUN/Creatinine Ratio 45.2 H Glucose 196 H POC Glucose 185 H Calcium 7.6 L Phosphorus 2.0 L D Magnesium 1.9 Total Bilirubin 0.8 AST 14 L ALT 19 Alkaline Phosphatase 89 Ammonia 16.0 Total Protein 5.8 L Albumin 2.4 L Globulin 3.4 Albumin/Globulin Ratio 0.7 L Specimen Hemolysis 01/12/21 08:09 WBC RBC Hgb Hct MCV MCH MCHC RDW Std Deviation RDW Coeff of Vikas Plt Count MPV Immature Gran % (Auto) Neut % (Auto) Lymph % (Auto) [place] % (Auto) Eos % (Auto) Baso % (Auto) Neut # (Auto) Lymph # (Auto) [place] # (Auto) Eos # (Auto) Baso # (Auto) Immature Gran # (Auto) Toxic Vacuolation Echinocytes Sodium Potassium Chloride Carbon Dioxide Anion Gap BUN Creatinine Est Cr Clr Drug Dosing Est GFR ( Amer) Est GFR (Non-Af Amer) BUN/Creatinine Ratio Glucose POC Glucose 187 H Calcium Phosphorus Magnesium Total Bilirubin AST ALT Alkaline Phosphatase Ammonia Total Protein Albumin Globulin Albumin/Globulin Ratio Specimen Hemolysis Diagnostic Findings Chest X-Ray 01/12/21 07:00 XR chest 1V portable CLINICAL HISTORY: f/u COMPARISON STUDY: Chest radiograph January 11, 2021. FINDINGS: Right shoulder arthroplasty is incidentally noted. Tip of nasogastric tube is below the lower aspect of this image but at least within the proximal stomach. Patient is rotated. There is no pneumothorax. Diffuse interstitial thickening persists. There are suspected small bilateral pleural effusions. Cardiomediastinal silhouette is stable. IMPRESSION: 1. Persistent interstitial thickening suggestive of pulmonary edema. 2. Left basilar opacity, similar to prior exam. ACT 112: Negative or not required by law. Electronically signed by: Alan Sanches M.D. 01/12/2021 8:39 AM PG Care Time/CCT Total # of Minutes Spent Total Time Spent with Patient: Total time spent is greater than 50% in coordination of care (as documented) at patient's floor/unit and/or counseling patient: Coding Level of Care Code 02162 Subseq Hosp Care Lvl 2 Diagnoses Shock R57.9 SIRS (systemic inflammatory response syndrome) R65.10 ATN (acute tubular necrosis) N17.0 Hyperkalemia E87.5 Encephalopathy G93.40 Chronic respiratory failure with hypoxia J96.11 Diabetes mellitus type 2, uncontrolled E11.65 Uncontrolled type 2 diabetes mellitus with hyperosmolarity, without long-term current use of insulin E11.00 Hypertension I10 Hypertension type: essential hypertension Chronic obstructive pulmonary disease J44.9 COPD type: unspecified COPD Ventral hernia K43.9 Peripheral neuropathy G62.89 Peripheral neuropathy type: polyneuropathy, other Chronic right-sided congestive heart failure I50.812 DVT prophylaxis Z29.9 Partial small bowel obstruction K56.600 (1) Peripheral neuropathy Peripheral neuropathy type: polyneuropathy, other Qualified Code(s): G62.89 - Other specified polyneuropathies (2) Chronic obstructive pulmonary disease COPD type: unspecified COPD Qualified Code(s): J44.9 - Chronic obstructive pulmonary disease, unspecified (3) Hypertension Hypertension type: essential hypertension Qualified Code(s): I10 - Essential (primary) hypertension
[2021-01-12] MEDS ORDERED: INSULIN GLARGINE SOLOSTAR 100 UNITS/ML 3 ML PEN SC ONE (11:00)
[2021-01-12] MEDS: ALBUMIN 25% 12.5 GM/50 ML VIAL IV SCH ×2 (11:24→12:02)
[2021-01-12] MEDS: INSULIN REGULAR 250 UNITS in SODIUM CHLORIDE 0.9% 247.5 ML IV SCH (13:05)
--- NOTE | 2021-01-12 14:21 | Pharmacy Report ---
Pharmacy Glycemic Short Note 2 - Date of Service January 12, 2021 - Glycemic Short BSG Results (Last 24 hours): 01/11/21 01/11/21 01/11/21 14:58 17:10 18:55 Glucose POC Glucose 138 H 154 H 159 H 01/11/21 01/11/21 01/11/21 21:00 23:44 23:46 Glucose POC Glucose 157 H 113 H 108 H 01/12/21 01/12/21 01/12/21 00:44 01:13 01:41 Glucose POC Glucose 96 122 H 131 H 01/12/21 01/12/21 01/12/21 02:11 03:06 04:10 Glucose POC Glucose 158 H 170 H 200 H 01/12/21 01/12/21 01/12/21 04:37 05:41 08:09 Glucose 196 H POC Glucose 185 H 187 H 01/12/21 01/12/21 01/12/21 10:59 12:04 13:01 Glucose POC Glucose 117 H 120 H 103 H OUTPATIENT ANTIDIABETIC REGIMEN: * Januvia 100 mg daily * HBA1C = 15.3% ASSESSMENT: 01/12/21 * Pressor requirement significantly decreasing. Antibiotics discontinued. * OK to transition to basal/bolus per ICU rounds discussion * Drip still running at 2.3 units/hr despite 18 units of Lantus BID yesterday. However, patient still NPO therefore aggressive increase not indicated. Will increase this AM's dose by only 16 units (for a total of 34 units this AM). Additional Lantus tonight based on BSG * Will initiate Novolog at q4h 01/11/21 * Patient transferred to ICU secondary to hypotension, EYAD and need for pressor support * Patient remains on insulin drip this AM with infusion rates 4-5 units/hr which are currently producing desirable BSGs. * Will continue IV insulin drip relatively high infusion rates, continued norepi provision (currently running 0.12mcg/kg/min) and ongoing NPO status. * Will add "moderate" wt-based dose of Lantus, however, as this will allow for easier drip transition in the future. 01/10/21 * patient was start on insulin infusion yesterday for BSGs > 350 mg/dL x 2. Continued on insulin infusion overnight (drip rates were 5--> 4--> 4.8 --> 2.9 --> 4.25 --> 6 --> 4.8). * Patient with EYAD and hypotension. * Continue insulin infusion due to hemodynamically instability. 01/09/21 * Traci Roman is a 70 y/o F with a PMH of T2DM on Januvia 100 mg daily. * She is admitted with hyperglycemia. BSGs have been 516- 438 mg/dL on admission. Overnight BSG was 368 mg/dL. Morning BSG was 367 mg/dL. * Patient received 10 units of IV and SQ regular insulin yesterday as well as 15 units of Lantus around 1 am. * Give additional 20 units this morning of Lantus to equal weight-based stress of 2 Lantus (total of 35 units). Start weight-based stress of 3 Novolog. * IV insulin bolus for AM blood sugar. Reached out to provider to have some potassium supplementation due to K of 3.8. PLAN FOR INPATIENT GLYCEMIC CONTROL: * Hold outpatient oral diabetes medications (sitagliptin) * Lantus 34 units SC x1 this AM. Additional 0-20 units tonight, depending on BSG * OK to stop insulin drip at this time 2nd BSG's and insulin drip rates appropriately trending down * Bolus insulin * Novolog q4h * Goal range: 120-160 mg/dL * Correction factor: 20 mg/dL/unit * Carb ratio: 6 g CHO/unit PLAN FOR DISCHARGE: * To be determined
[2021-01-12] MEDS ORDERED: INSULIN ASPART 100 UNITS/ML 3 ML PEN SC SCH (20:00)
[2021-01-12] MEDS: ACETAMINOPHEN 325 MG TAB PO PRN (20:13)
[2021-01-12] MEDS: QUEtiapine FUMARATE 25 MG TABLET PO SCH (20:14)
[2021-01-12] MEDS: ASPIRIN 81 MG CHEW PO SCH (20:14)
[2021-01-12] MEDS: ATORVASTATIN 40 MG TAB PO SCH (20:14)
[2021-01-13] MEDS ORDERED: INSULIN GLARGINE SOLOSTAR 100 UNITS/ML 3 ML PEN SC ONE
[2021-01-13] MEDS: INSULIN ASPART 100 UNITS/ML 3 ML PEN SC SCH ×7 (00:04→23:47)
[2021-01-13 04:54] LABS: Basophils # (auto) 0.02 K/uL (0-0.2); Basophils % (auto) 0.2 %; Eosinophils # (auto) 0.11 K/uL (0-0.5); Eosinophils % (auto) 1.3 %; Hemoglobin 12.5 g/dL (12.0-16.0); Immature Granulocytes # (auto) 0.04 K/uL (0.00-0.02); Immature Granulocytes % (auto) 0.5 %; Lymphocytes # (auto) 0.92 K/uL (1.2-3.4); Lymphocytes % (auto) 11.1 %; Mean Corpuscular Hemoglobin 31.2 pg (25-34); Mean Corpuscular Hgb Conc 32.1 g/dL (32-36); Mean Corpuscular Volume 97.3 fL (80-100); Mean Platelet Volume 9.4 fL (7.4-10.4); Monocytes # (auto) 1.13 K/uL (0.11-0.59); Monocytes % (auto) 13.6 %; Neutrophils # (auto) 6.08 K/uL (1.4-6.5); Neutrophils % (auto) 73.3 %; Platelet Count 227 K/uL (130-400); RDW Coefficient of Variation 16.6 % (11.5-14.5); RDW Standard Deviation 59.2 fL (36.4-46.3); Red Blood Count 4.01 M/uL (4.2-5.4)
[2021-01-13 05:21] LABS: BUN Creatinine Ratio 44.2 (10-20); C Reactive Protein 12.9 mg/dl (0-0.29); Calcium 7.7 mg/dl (8.5-10.1); Creatinine Clr Calc Pharmacy 180.5 ml/min; Est GFR (African American) 129.9 ml/min; Est GFR (Non-African American) 112.1 ml/min; Magnesium 1.9 mg/dl (1.8-2.4); Phosphorus 2.3 mg/dl (2.5-4.9); Potassium 3.3 mmol/L (3.5-5.1)
[2021-01-13] MEDS ORDERED: POTASSIUM PHOS 3 MMOL/1 ML INFUSION IV STA (05:38)
--- NOTE | 2021-01-13 05:59 | Critical Care Progress Note ---
Date of Service January 13, 2021 Assessment & Plan (1) Hyperglycemia due to diabetes mellitus: Plan: Reason Critically Ill: Traci is a 70-year-old female with a notable history of COPD requiring home oxygen (3lpm), type 2 diabetes, hypertension, hyperlipidemia who presented to [facility] for evaluation of hyperglycemia. During her second night here, she developed HoTN down to 50/30s, with modest response to saline boluses. She requires ICU-level care for intensive hemodynamic monitoring and work-up of her hypotension. Her presentation is currently thought to be due to third spacing around a mild SBO. Neuro - Sedation: none Analgesia: none Metabolic Encephalopathy -- Resolving * Primarily suspect secondary to hypovolemic shock / hypoperfusion, possibly compounded with hypoxemia, in setting of mild SBO and enteritis * Less concerned this is due to sepsis at present: BCX NGTD, temperature stable, WBCs stable * Management as below Cardiac - Suspected Hypovolemic Shock * BPs 60-70s/50s upon arrival to ICU -- MAPs have been 60-80s since initiating pressor support * Suspect etiology is likely hypovolemic: hyperglycemia, diarrhea / enteritis, and likely third spacing around low-grade SBO. Hgb stable. -- As above - sepsis considered, but still seems less likely * Echocardiogram demonstrating hyperdynamic LV, with moderate-severe dilated RV w/ modest decrease in fxn -- patient is preload dependent * Now fully off pressor support - Day 2 -- Continue mIVF -- Not yet appropriate for oral intake given SBO -- If pressure dips, consider 500cc bolus +/- 25g of 25% albumin for volume expansion * Maintain MAP > 65, UOP > 0.5 * Continue to hold home antiHTN Respiratory - COPD * At baseline patient does require 3L NC -- at baseline right now * Review of her chart does not reveal any maintenance medications * Will require pulmonology f/u and PFTs as outpatient GI - Low-grade SBO with Enteritis (in setting of known large ventral wall hernia containing most of the GI contents) * CT-AP revealing of mildly dilated fluid-filled loops of small bowel within the hernia with wall thickening - could be secondary to enteritis and likely low- grade SBO * NGT on LIS -- 975cc overnight -- Continue LIS for now -- Patient is having small watery BMs * Promote OOB to chair RENAL/LYTES - Acute Kidney Injury -- Resolved * Stabilized on AM labs - * d/c Adrienne TOBIAS - Type 2 Diabetes (A1c on admission = 15.3%) * Transition to insulin SQ today -- appreciate pharmacy assistance * ICU Hyperglycemia protocol HEME - * H&H Stable at present - will continue to monitor ID - See above - metabolic encephalopathy (neuro), enteritis/SBO (GI) INTEGUMENTARY - * No acute needs LINES/IV ACCESS - PIVs in-tact. DVT PROPHYLAXIS - Lovenox 40 b.i.d. Thank you for allowing us to be part of this patient's care. Please refer to Dr. Dang's documentation for any further recommendations. (2) Obesity: (3) Back pain: (4) Stage III pressure ulcer: (5) Acute metabolic encephalopathy: (6) Hypertension: (7) Hyperlipidemia: (8) Depression: (9) Anxiety: (10) Chronic obstructive pulmonary disease: (11) Diabetes mellitus, type 2: (12) SBO (small bowel obstruction): Admission and Anticipated Discharge Date Admission Date: January 08, 2021 Supervising Physician Co-Signing Physician Notes Dr. Aguilar was resident physician during care of patient. I separately evaluated patient for weber portions of the history and the exam. I was present during the critical portion of medical decision making, and I discussed the case with the resident. I generally agree with the findings and plan. Patient still having moderate to large amount of NG output will clamp and see how she tolerates today also increasing activity to increase bowel function replaced her relative hypokalemia, stable for downgrade out of ICU to [facility]. Off pressors and insulin since yesterday. At 3 L home oxygen at baseline Subjective Night team did report confusion overnight in which patient removed her NG tube, which subsequently had to be replaced. Thereafter, she had about 975 cc out in total. Otherwise, patient reports feeling well this morning. She is notably less confused than in previous days. She is fully responsive to questioning. She denies any pain or discomfort. Says that her abdomen feels well. Denies any chest pain, palpitations, shortness of breath. No nausea or vomiting. She is looking forward to eating. Does endorse feeling thirsty. No leg pain or swelling. Review of Systems Review of Systems: Constitutional: Denies fever, chills Eyes: Denies double vision ENT: Denies ear pain, sore throat, sinus pain Cardiovascular: Denies Chest pain, chest pressure, palpitations, extremity swelling Respiratory: Denies shortness of breath, cough, sputum production, difficulty breathing Gastrointestinal: Denies nausea, vomiting, constipation, diarrhea Genitourinary: Denies urinary symptoms Musculoskeletal: Denies weakness, muscle aches/pain Integumentary: Denies rash, lesions, bruising Neurological: Denies headache, numbness, tingling, focal weakness Physical Exam Physical Exam: General: Somnolent-appearing 70-year-old female who is lying back in her hospital bed, silvia, upon my arrival. She is alert to person and time of day. NAD. HEENT: NCAT. Eyes - Sclera are white, anicteric, and without injection. PERRL. Mouth - MMM with no tonsillar edema or exudates. Cardiac: Normal rate with regular rhythm; detailed auscultation exam limited by habitus, but of what could be heard: S1 and S2 present with no murmurs, rubs, or gallops. Pulmonary: Mildly increased respiratory effort with symmetric expansion of the chest. No use of accessory muscles. Ausculatory exam difficult sec to habitus, but of what could be heard: diminished lung sounds, no appreciable crackles or wheezes Abdominal: Extensively large ventral hernia that deviates to the left. No TTP today. No rebound or involuntary guarding. Extremities: Upper and lower extremities are warm and well perfused. Capillary refill assessed in UE was approx. 4 seconds. Results & Data Results & Data ([facility]) Vital Signs (Past 12 Hours) Vital Signs Temp Pulse Resp BP Pulse Ox 01/13/21 05:00 84 17 120/59 L 91 01/13/21 04:00 36.8 C 77 18 127/62 92 01/13/21 03:00 78 16 129/77 91 01/13/21 02:00 36.8 C 84 18 115/75 90 01/13/21 01:00 70 16 89/50 L 90 01/13/21 00:00 82 16 94/45 L 91 01/12/21 23:00 36.6 C 78 16 109/54 L 90 01/12/21 22:00 81 18 101/62 90 01/12/21 21:00 87 18 105/57 L 91 01/12/21 20:00 80 18 113/67 92 01/12/21 19:00 37.6 C H 115 H 16 100/41 L 91 Resident Activity Tracking Resident Involvement: Resident Care Provided Care Provided: Adult [facility] Medicine (1) Stage III pressure ulcer Pressure injury location: other site Qualified Code(s): L89.893 - Pressure ulcer of other site, stage 3 (2) Diabetes mellitus, type 2 Diabetes mellitus complication status: without complication Diabetes mellitus intermediate manager insulin use: without snf use Qualified Code(s): E11.9 - Type 2 diabetes mellitus without complications (3) Back pain Back pain laterality: midline Back pain location: low back pain Chronicity: chronic Sciatica presence: without sciatica Qualified Code(s): M54.5 - Low back pain; G89.29 - Other chronic pain (4) Depression Active/Remission status: remission status unspecified Depression Type: major depressive disorder Major depression recurrence: unspecified whether recurrent Qualified Code(s): F32.9 - Major depressive disorder, single episode, unspecified (5) Hyperlipidemia Hyperlipidemia type: unspecified Qualified Code(s): E78.5 - Hyperlipidemia, unspecified (6) Chronic obstructive pulmonary disease COPD type: unspecified COPD Qualified Code(s): J44.9 - Chronic obstructive pulmonary disease, unspecified (7) Hypertension Hypertension type: essential hypertension Qualified Code(s): I10 - Essential (primary) hypertension (8) Obesity Body mass index: BMI 38.0-38.9 Obesity classification: adult class 2 (BMI 35 - 39.9) Obesity type: unspecified obesity type Serious obesity comorbidity presence: with serious comorbidity Qualified Code(s): E66.01 - Morbid (severe) obesity due to excess calories; Z68.38 - Body mass index [BMI] 38.0-38.9, adult
[2021-01-13] MEDS ORDERED: POTASSIUM PHOSPHATE 15 MMOL in SODIUM CHLORIDE 0.9% 250 ML IV ONE (06:00)
[2021-01-13] MEDS: ENOXAPARIN INJ 40 MG/0.4 ML SYR SQ SCH ×2 (06:07→17:45)
[2021-01-13] MEDS: POTASSIUM CHLORIDE / WTR 10 MEQ/100 ML PLCT IV SCH ×4 (06:07→09:25)
--- NOTE | 2021-01-13 07:20 | XRay Report ---
KUB CLINICAL HISTORY: OG placement COMPARISON STUDY: CT of the abdomen and pelvis and KUB January 10, 2021. FINDINGS: Note is again made of a large ventral hernia which contains the stomach, better depicted on prior abdominal CT. The tip of the nasogastric tube is within the body of the stomach. Visualized markos wel gas pattern is unremarkable. IMPRESSION: Tip of nasogastric tube within the body of the stomach. ACT 112: Negative or not required by law. Electronically signed by: Alan Sanches M.D. 01/13/2021 7:19 AM
--- NOTE | 2021-01-13 07:26 | XRay Report ---
XR chest 1V portable CLINICAL HISTORY: Shortness of breath COMPARISON STUDY: 01/12/2021 FINDINGS: There is an enteric tube which passes into the stomach. The heart is enlarged. There is rad iographic evidence of mild pulmonary vascular congestion. Ill-definition left heart border remains un changed. There are postsurgical changes of a reverse total right shoulder arthroplasty. Erosive vásquez es involving the left humeral head[ IMPRESSION: 1. Diffuse elevation of the interstitium, likely secondary to mild congestive failure/fluid overload. ACT 112: Negative or not required by law. Electronically signed by: Claudio Love M.D. 01/13/2021 7:25 AM
[2021-01-13] MEDS: DOCUSATE SODIUM/SENNA 50/8.6MG TAB PO SCH (08:12)
[2021-01-13] MEDS ORDERED: Nursing to Pharmacy Communication SCH (08:15)
[2021-01-13] MEDS: NORMOSOL-R 1,000 ML IV SCH ×3 (08:31→20:37)
[2021-01-13] MEDS: GABAPENTIN 250 MG/5 ML 470 ML BTL PO SCH ×3 (08:31→20:40)
[2021-01-13] MEDS: INSULIN GLARGINE SOLOSTAR 100 UNITS/ML 3 ML PEN SC SCH ×2 (08:33→21:36)
[2021-01-13] MEDS ORDERED: ACETAMINOPHEN SUSP 325 MG/10.15 ML UDC ONE (09:19)
[2021-01-13] MEDS ORDERED: PANTOprazole 40 MG TAB PO SCH (09:45)
[2021-01-13] MEDS ORDERED: ACETAMINOPHEN SUSP 325 MG/10.15 ML UDC PO PRN (09:47)
--- NOTE | 2021-01-13 09:48 | Billing Data ---
Date of Service January 13, 2021 Coding Level of Care Code 46105 Subseq Hosp Care Lvl 3
--- NOTE | 2021-01-13 12:04 | Pharmacy Report ---
Pharmacy Glycemic Short Note 2 - Date of Service January 13, 2021 - Glycemic Short BSG Results (Last 24 hours): 01/12/21 01/12/21 01/12/21 12:04 13:01 16:23 Glucose POC Glucose 120 H 103 H 87 01/12/21 01/13/21 01/13/21 20:08 00:01 04:46 Glucose 124 H POC Glucose 84 94 01/13/21 01/13/21 05:14 11:35 Glucose POC Glucose 115 H 130 H OUTPATIENT ANTIDIABETIC REGIMEN: * Januvia 100 mg daily * HBA1C = 15.3% ASSESSMENT: 01/13 * BSGs well controlled over last 24 hrs * Transitioned off insulin drip yesterday afternoon * BSGs did fall quickly once norepi infusion titrated off * BSGs have recovered into the low 100s this AM. Currently has 34 units basal on board. Will resume basal at a reduced dosage and split BID. Patient remains NPO * Current Novolog CF/CR are reasonable starting points. 01/12/21 * Pressor requirement significantly decreasing. Antibiotics discontinued. * OK to transition to basal/bolus per ICU rounds discussion * Drip still running at 2.3 units/hr despite 18 units of Lantus BID yesterday. However, patient still NPO therefore aggressive increase not indicated. Will increase this AM's dose by only 16 units (for a total of 34 units this AM). Additional Lantus tonight based on BSG * Will initiate Novolog at q4h 01/11/21 * Patient transferred to ICU secondary to hypotension, EYAD and need for pressor support * Patient remains on insulin drip this AM with infusion rates 4-5 units/hr which are currently producing desirable BSGs. * Will continue IV insulin drip relatively high infusion rates, continued norepi provision (currently running 0.12mcg/kg/min) and ongoing NPO status. * Will add "moderate" wt-based dose of Lantus, however, as this will allow for easier drip transition in the future. PLAN FOR INPATIENT GLYCEMIC CONTROL: * Hold outpatient oral diabetes medications (sitagliptin) * Lantus SQ BID per scale: * 0 units if less than 110 * 8 units if 110-140 * 18 units if 141-200 * 26 units if greater than 200 * Bolus insulin * Novolog q4h * Goal range: 110-140 mg/dL * Correction factor: 20 mg/dL/unit * Carb ratio: 6 g CHO/unit PLAN FOR DISCHARGE: * To be determined
--- NOTE | 2021-01-13 13:36 | Surgery Consultation ---
Date of Consultation January 13, 2021 Assessment & Plan (1) Partial small bowel obstruction: Bowels are moving. Most of stomach is in the hernia, may have element of gastroparesis or chronic mechanical blockage. Would d/c NG at this time. Seen with Dr. Amaral. History of Present Illness Attending Physician: Silvestre Khan History of Present Illness 70 y/o female referred for admission 01/08 by PCP because her sugar was in the 700s. Two days later she was transferred to ICU for encephalopathy/shock. NG was placed for low grade SBO seen on CT. She has large ventral hernia with loss of domain, was recommended last year by Dr. Gautam & Casimiro fo have tertiary referral. She was seen in [place], decided not to have the hernia repaired. She is not having any more abdominal pain than she normally has in her pannus. She has been having multiple loose stools. She reports drinking several cups of ice. Allergies Allergy/AdvReac Type Severity Reaction Status Date / Time latex Allergy Severe 2ND DEGREE Verified 01/08/21 20:06 BURN FROM BANDAGE adhesive Allergy Intermediate RASH Verified 01/08/21 20:06 Home Medications Medication Instructions Recorded Confirmed Type aspirin 81 mg tablet,delayed 81 mg PO QPM 10/30/18 01/08/21 History release (Aspirin Low Dose) atorvastatin 80 mg tablet (Lipitor) 80 mg PO HS 10/30/18 01/08/21 History cholecalciferol (vitamin D3) 50 2,000 unit PO QAM 10/30/18 01/08/21 History mcg (2,000 unit) capsule (Vitamin D3) gabapentin 300 mg capsule 300 mg PO TID 10/30/18 01/08/21 History quetiapine 50 mg tablet (Seroquel) 50 mg PO HS 12/01/19 01/08/21 History cyanocobalamin (vitamin B-12) 1,000 mcg IM MONTHLY 01/08/21 01/08/21 History 1,000 mcg/mL injection solution lisinopril 20 mg tablet 20 mg PO QPM 01/08/21 01/08/21 History sitagliptin 100 mg tablet (Januvia) 100 mg PO QPM 01/08/21 01/10/21 History Patient History Medical History Anxiety Chronic obstructive pulmonary disease Depression Diabetes mellitus, type 2 NIDDM Glaucoma WELL CONTROLLED H/O defect LEFT ARM Hyperlipidemia Hypertension Peripheral neuropathy BILATERAL FEET Temporomandibular joint disorder NO PROBLEMS RECENTLY. Surgical History History of appendectomy History of cholecystectomy History of colonoscopy History of incision and drainage UMBILICAL ABSCESS History of total shoulder replacement RIGHT Hx of umbilical hernia repair X4 -- WEARS SUPPORT BAND DAILY S/P JALIL-BSO S/P tonsillectomy and adenoidectomy Family History Mother Diabetes mellitus, type 2 Aunt Diabetes mellitus, type 2 Social History Smoking Status: Former smoker Tobacco Type: Cigarettes Cigarettes Per Day: 2 PPD X 50 YEARS AGO; Second Hand Exposure: Yes; Hx Alcohol Use: No Hx Substance Use: No Preferred Language: Divehi Communication Ability: Effective Teacher Of The Sight Impaired Required: No Beliefs That Will Affect Care: None marital status: Current Living Situation: Spouse current occupational status: retired Feels Safe at Home: Yes Assistive Devices: Oxygen - Continuous Review of Systems Gastrointestinal: + diarrhea/loose stools; no abdominal pain and no nausea Physical Exam Constitutional: + obese Gastrointestinal (Abdomen): Inspection/Auscultation: + significant pannus, + visible herniation and + abdominal surgical scar Percussion/Palpation: abdomen soft; abdomen nontender NGT recorded as Results & Data ([facility]) Vital Signs (Past 12 Hours) Vital Signs Temp Pulse Resp BP Pulse Ox 01/13/21 10:00 79 12 118/75 91 01/13/21 09:00 36.9 C 79 16 126/94 91 01/13/21 08:00 36.9 C 74 14 139/67 96 01/13/21 07:00 78 19 118/70 90 01/13/21 06:00 36.8 C 78 16 126/74 88 L 01/13/21 05:00 84 17 120/59 L 91 01/13/21 04:00 36.8 C 77 18 127/62 92 01/13/21 03:00 78 16 129/77 91 01/13/21 02:00 36.8 C 84 18 115/75 90 PG Care Time/CCT Total # of Minutes Spent Total Time Spent with Patient: Total time spent is greater than 50% in coordination of care (as documented) at patient's floor/unit and/or counseling patient: Coding Level of Care Code 27827 Initial Inpt Care Lvl 1 Diagnoses Partial small bowel obstruction K56.600
--- NOTE | 2021-01-13 13:45 | Hospitalist Progress Note ---
Date of Service January 13, 2021 Assessment & Plan (1) Partial small bowel obstruction: Plan: improving/resolving moving bowels but output from NG tube still about 500cc/shift (2) Shock: Plan: resolved off pressors septic in the setting of right-heart failure? due to 3rd spacing from pSBO? other? (3) SIRS (systemic inflammatory response syndrome): Plan: resolved (4) ATN (acute tubular necrosis): Plan: 2nd shock - resolved (5) Hyperkalemia: Plan: resolved (6) Encephalopathy: Plan: improved/resolved back to baseline; a/o x 3 (7) Chronic respiratory failure with hypoxia: Plan: stable on home O2 amount (8) Diabetes mellitus type 2, uncontrolled: Plan: improved s/p insulin drip this admission (9) Uncontrolled type 2 diabetes mellitus with hyperosmolarity, without long- term current use of insulin: Plan: pharmacy following & managing control very satisfactory (10) Hypertension: Plan: holding anti-hypertensives due to recent shock (11) Chronic obstructive pulmonary disease: Plan: no exacerbation at this time (12) Ventral hernia: Plan: large, with suspected pSBO due to the hernia pSBO seems to be resolving (13) Peripheral neuropathy: Plan: at baseline b/l legs (14) Chronic right-sided congestive heart failure: Plan: compensated but caution with ongoing IV fluids (15) DVT prophylaxis: Plan: lovenox 40 BID Plan: 1. Cont NG tube to intermittent low-wall suction. Will involve general surgery to assess with NG tube management. 2. If diarrhea persists consider c diff testing. 3. Cont IV fluids. 4. labs in am. 5. PT, OT. 6. glycemic management per pharmacy. daughter updated by phone today Admission and Anticipated Discharge Date Admission Date: January 08, 2021 Subjective patient continues with NG tube in place denies any abdominal pain passing liquid stools no pain over hernia denies dyspnea patient transferred out of ICU this am to the floor Review of Systems Constitutional: + fatigue and + weakness; no fever and no chills Ear, Nose, Mouth, Throat: + sore throat Respiratory: + cough Cardiovascular: no chest pain Gastrointestinal: + diarrhea/loose stools; no abdominal pain, no nausea, no vomiting and no blood in stools Genitourinary: + urinary incontinence Physical Exam Constitutional: + morbidly obese; no acute distress and no altered mental status ENMT: external ear and nose normal, oropharynx normal Nose: + external nose abnormality (ng tube in place ) Respiratory: normal respiratory effort Auscultation: + diminished lung sounds (bases ), + crackles (faint b/l bases ) and + wheezes (b/l - mild ) Cardiovascular: Rate/Rhythm: regular rate and regular rhythm Heart Sounds: normal S1 and normal S2; no murmur Vessels: posterior tibial pulses present and dorsalis pedis pulses present; no JVD Extremities: + edema (trace b/l ) Gastrointestinal (Abdomen): Inspection/Auscultation: normal bowel sounds and + visible herniation (left abdomen - very large - nontender to palpation, reducible/not hard); abdomen not distended Percussion/Palpation: + hernia (large ventral hernia to L of midline); no guarding, abdomen not rigid and no hepatosplenomegaly Musculoskeletal: Extremities: + upper extremity abnormal to inspection Bilateral (shortened arms; biceps region on right is deformed/enlarged) Psychiatric: Orientation: alert, oriented to person, oriented to place and oriented to time Results & Data Results & Data ([facility]) Vital Signs (Past 12 Hours) Vital Signs Temp Pulse Resp BP Pulse Ox 01/13/21 10:00 79 12 118/75 91 01/13/21 09:00 36.9 C 79 16 126/94 91 01/13/21 08:00 36.9 C 74 14 139/67 96 01/13/21 07:00 78 19 118/70 90 01/13/21 06:00 36.8 C 78 16 126/74 88 L 01/13/21 05:00 84 17 120/59 L 91 01/13/21 04:00 36.8 C 77 18 127/62 92 01/13/21 03:00 78 16 129/77 91 01/13/21 02:00 36.8 C 84 18 115/75 90 Laboratory Results Laboratory Results - last 24 hr 01/12/21 01/12/21 01/13/21 16:23 20:08 00:01 WBC RBC Hgb Hct MCV MCH MCHC RDW Std Deviation RDW Coeff of Vikas Plt Count MPV Immature Gran % (Auto) Neut % (Auto) Lymph % (Auto) [place] % (Auto) Eos % (Auto) Baso % (Auto) Neut # (Auto) Lymph # (Auto) [place] # (Auto) Eos # (Auto) Baso # (Auto) Immature Gran # (Auto) Sodium Potassium Chloride Carbon Dioxide Anion Gap BUN Creatinine Est Cr Clr Drug Dosing Est GFR ( Amer) Est GFR (Non-Af Amer) BUN/Creatinine Ratio Glucose POC Glucose 87 84 94 Lactate Calcium Phosphorus Magnesium C-Reactive Protein 01/13/21 01/13/21 01/13/21 04:46 04:46 04:46 WBC 8.30 RBC 4.01 L Hgb 12.5 Hct 39.0 MCV 97.3 MCH 31.2 MCHC 32.1 RDW Std Deviation 59.2 H RDW Coeff of Viaks 16.6 H Plt Count 227 MPV 9.4 Immature Gran % (Auto) 0.5 Neut % (Auto) 73.3 Lymph % (Auto) 11.1 [place] % (Auto) 13.6 Eos % (Auto) 1.3 Baso % (Auto) 0.2 Neut # (Auto) 6.08 Lymph # (Auto) 0.92 L [place] # (Auto) 1.13 H Eos # (Auto) 0.11 Baso # (Auto) 0.02 Immature Gran # (Auto) 0.04 H Sodium 142 Potassium 3.3 L D Chloride 111 H Carbon Dioxide 27 Anion Gap 4.0 BUN 15 Creatinine 0.34 L Est Cr Clr Drug Dosing 180.5 Est GFR ( Amer) 129.9 Est GFR (Non-Af Amer) 112.1 BUN/Creatinine Ratio 44.2 H Glucose 124 H POC Glucose Lactate 0.6 Calcium 7.7 L Phosphorus 2.3 L Magnesium 1.9 C-Reactive Protein 12.90 H 01/13/21 01/13/21 05:14 11:35 WBC RBC Hgb Hct MCV MCH MCHC RDW Std Deviation RDW Coeff of Vikas Plt Count MPV Immature Gran % (Auto) Neut % (Auto) Lymph % (Auto) [place] % (Auto) Eos % (Auto) Baso % (Auto) Neut # (Auto) Lymph # (Auto) [place] # (Auto) Eos # (Auto) Baso # (Auto) Immature Gran # (Auto) Sodium Potassium Chloride Carbon Dioxide Anion Gap BUN Creatinine Est Cr Clr Drug Dosing Est GFR ( Amer) Est GFR (Non-Af Amer) BUN/Creatinine Ratio Glucose POC Glucose 115 H 130 H Lactate Calcium Phosphorus Magnesium C-Reactive Protein PG Care Time/CCT Total # of Minutes Spent Total Time Spent with Patient: Total time spent is greater than 50% in coordination of care (as documented) at patient's floor/unit and/or counseling patient: Coding Level of Care Code 54131 Subseq Hosp Care Lvl 2 Diagnoses Partial small bowel obstruction K56.600 Shock R57.9 SIRS (systemic inflammatory response syndrome) R65.10 ATN (acute tubular necrosis) N17.0 Hyperkalemia E87.5 Encephalopathy G93.40 Chronic respiratory failure with hypoxia J96.11 Diabetes mellitus type 2, uncontrolled E11.65 Uncontrolled type 2 diabetes mellitus with hyperosmolarity, without long-term current use of insulin E11.00 Hypertension I10 Hypertension type: essential hypertension Chronic obstructive pulmonary disease J44.9 COPD type: unspecified COPD Ventral hernia K43.9 Peripheral neuropathy G62.89 Peripheral neuropathy type: polyneuropathy, other Chronic right-sided congestive heart failure I50.812 DVT prophylaxis Z29.9 (1) Peripheral neuropathy Peripheral neuropathy type: polyneuropathy, other Qualified Code(s): G62.89 - Other specified polyneuropathies (2) Chronic obstructive pulmonary disease COPD type: unspecified COPD Qualified Code(s): J44.9 - Chronic obstructive pulmonary disease, unspecified (3) Hypertension Hypertension type: essential hypertension Qualified Code(s): I10 - Essential (primary) hypertension
[2021-01-13] MEDS: ASPIRIN 81 MG CHEW PO SCH (20:40)
[2021-01-13] MEDS: ATORVASTATIN 40 MG TAB PO SCH (20:40)
[2021-01-13] MEDS: QUEtiapine FUMARATE 25 MG TABLET PO SCH (20:41)
[2021-01-14] MEDS: INSULIN ASPART 100 UNITS/ML 3 ML PEN SC SCH ×5 (04:15→21:20)
[2021-01-14] MEDS: ENOXAPARIN INJ 40 MG/0.4 ML SYR SQ SCH ×2 (05:10→17:58)
[2021-01-14] MEDS: NORMOSOL-R 1,000 ML IV SCH (05:49)
[2021-01-14 07:12] LABS: BUN Creatinine Ratio 37.8 (10-20); Creatinine Clr Calc Pharmacy 211.6 ml/min; Est GFR (African American) 136.9 ml/min; Est GFR (Non-African American) 118.1 ml/min; Potassium 3.6 mmol/L (3.5-5.1)
[2021-01-14 07:16] LABS: Phosphorus 3.4 mg/dl (2.5-4.9)
--- NOTE | 2021-01-14 08:04 | Surgery Progress Note ---
Date of Service January 14, 2021 Assessment & Plan (1) Partial small bowel obstruction: Plan: Patient tolerated NGT removal yesterday Denies any abdominal complaints. Having + bowel function Will try clears this AM, if tolerates may continue to advance diet as tolerates today No plans for any abdominal surgical intervention here should she require it she should be transferred to tertiary center We will sign off for now, please call with any questions/concerns Admission and Anticipated Discharge Date Admission Date: January 08, 2021 Subjective Patient says she is doing well this AM. Denies abdominal pain, nausea/vomiting since NGT removal yesterday. Having + bowel function. Physical Exam Physical Exam: awake/alert Gastrointestinal (Abdomen): Percussion/Palpation: abdomen soft; abdomen nontender Results & Data ([facility]) Vital Signs (Past 12 Hours) Vital Signs Temp Pulse Resp BP Pulse Ox 01/14/21 07:28 36.8 C 74 20 100/71 92 01/13/21 21:59 37.2 C 78 20 139/83 92 PG Care Time/CCT Total # of Minutes Spent Total Time Spent with Patient: Total time spent is greater than 50% in coordination of care (as documented) at patient's floor/unit and/or counseling patient: Coding Level of Care Code 25387 Subseq Hosp Care Lvl 1 Diagnoses Partial small bowel obstruction K56.600
[2021-01-14] MEDS ORDERED: Nursing to Pharmacy Communication SCH (08:45)
[2021-01-14] MEDS: INSULIN GLARGINE SOLOSTAR 100 UNITS/ML 3 ML PEN SC SCH ×2 (09:03→21:20)
--- NOTE | 2021-01-14 09:28 | Pharmacy Report ---
Pharmacy Glycemic Short Note 2 - Date of Service January 14, 2021 - Glycemic Short BSG Results (Last 24 hours): 01/13/21 01/13/21 01/13/21 11:35 17:03 20:45 Glucose POC Glucose 130 H 97 102 H 01/13/21 01/14/21 01/14/21 23:36 04:09 06:32 Glucose 120 H POC Glucose 97 105 H 01/14/21 07:59 Glucose POC Glucose 127 H OUTPATIENT ANTIDIABETIC REGIMEN: * Januvia 100 mg daily * HBA1C = 15.3% (01/09/21) ASSESSMENT: 01/14: * Traci received 8 units of insulin yesterday, all basal * BSGs were well controlled: [phone] mg/dL * Fasting BSG well controlled at 127 mg/dL this AM * Will continue with current basal insulin scale * Patient was ordered a T2DM/Clear Liquid diet this AM - will follow PO intake throughout the day and adjust insulin regimen as necessary 01/13: * BSGs well controlled over last 24 hrs * Transitioned off insulin drip yesterday afternoon * BSGs did fall quickly once norepi infusion titrated off * BSGs have recovered into the low 100s this AM. Currently has 34 units basal on board. Will resume basal at a reduced dosage and split BID. Patient remains NPO * Current Novolog CF/CR are reasonable starting points. 01/12: * Pressor requirement significantly decreasing. Antibiotics discontinued. * OK to transition to basal/bolus per ICU rounds discussion * Drip still running at 2.3 units/hr despite 18 units of Lantus BID yesterday. However, patient still NPO therefore aggressive increase not indicated. Will increase this AM's dose by only 16 units (for a total of 34 units this AM). Additional Lantus tonight based on BSG * Will initiate Novolog at q4h 01/11: * Patient transferred to ICU secondary to hypotension, EYAD and need for pressor support * Patient remains on insulin drip this AM with infusion rates 4-5 units/hr which are currently producing desirable BSGs. * Will continue IV insulin drip relatively high infusion rates, continued norepi provision (currently running 0.12mcg/kg/min) and ongoing NPO status. * Will add "moderate" wt-based dose of Lantus, however, as this will allow for easier drip transition in the future. PLAN FOR INPATIENT GLYCEMIC CONTROL: * Hold outpatient oral diabetes medications * Lantus SQ BID per scale: * 0 units if less than 110 mg/dL * 8 units if 110-140 mg/dL * 18 units if 141-200 mg/dL * 26 units if greater than 200 mg/dL Bolus insulin * Novolog ACHS * Goal range: 110-140 mg/dL * Correction factor: 20 mg/dL/unit * Carb ratio: 6 g CHO/unit PLAN FOR DISCHARGE: * HbA1c = 15.3% from this admission. Patient will require insulin upon discharge. * Continue to trend insulin requirements and will make a more specific recommendation prior to discharge.
[2021-01-14] MEDS: GABAPENTIN 250 MG/5 ML 470 ML BTL PO SCH ×2 (10:05→15:02)
[2021-01-14] MEDS ORDERED: POTASSIUM CHLORIDE CRTAB 20 MEQ TABCR PO STA (14:24)
[2021-01-14] MEDS ORDERED: FUROSEMIDE 20 MG in SYRINGE 0 ML IV ONE (14:45)
[2021-01-14] MEDS: GABAPENTIN 300 MG CAP PO SCH ×2 (17:10→20:18)
[2021-01-14] MEDS: ASPIRIN 81 MG CHEW PO SCH (20:17)
[2021-01-14] MEDS: QUEtiapine FUMARATE 25 MG TABLET PO SCH (20:18)
[2021-01-14] MEDS: ATORVASTATIN 40 MG TAB PO SCH (20:18)
--- NOTE | 2021-01-14 22:40 | Hospitalist Progress Note ---
Date of Service January 14, 2021 Assessment & Plan (1) Partial small bowel obstruction: Plan: resolved NG tube d/c 01/13 by gen surg appreciate their assistance tolerating clears moving bowels (2) Shock: Plan: resolved off pressors septic in the setting of right-heart failure? due to 3rd spacing from pSBO? other? no addisonian crisis either way resolved (3) SIRS (systemic inflammatory response syndrome): Plan: resolved (4) ATN (acute tubular necrosis): Plan: 2nd shock - resolved (5) Hyperkalemia: Plan: resolved (6) Encephalopathy: Plan: improved/resolved back to baseline; a/o x 3 (7) Chronic respiratory failure with hypoxia: Plan: stable on home O2 amount (8) Diabetes mellitus type 2, uncontrolled: Plan: improved s/p insulin drip now over to basal-bolus SC regimen (9) Uncontrolled type 2 diabetes mellitus with hyperosmolarity, without long- term current use of insulin: Plan: pharmacy following & managing control very satisfactory (10) Hypertension: Plan: holding anti-hypertensives due to recent shock BPs still controlled (11) Chronic obstructive pulmonary disease: Plan: no exacerbation at this time (12) Ventral hernia: Plan: large, with suspected pSBO due to the hernia pSBO resolved (13) Peripheral neuropathy: Plan: at baseline b/l legs (14) Chronic right-sided congestive heart failure: Plan: decompensated acute/chronic right-sided CHF (15) DVT prophylaxis: Plan: lovenox 40 BID Plan: 1. stop IVF; lasix 20mg IV x 1 now; suspect she will need additional diuresis tomorrow 2. If diarrhea persists consider c diff testing. 3. labs in am. 4. cont PT, OT. 5. glycemic management per pharmacy. appreciate their assistance. 6. cont clears; hopefully full liquids tomorrow . daughter updated by phone yesterday, 01/13 Admission and Anticipated Discharge Date Admission Date: January 08, 2021 Subjective during my rounds patient was complaining of "wanting to sit up" and "I want to get into the wheelchair". she was visibly short of breath, and after increasing the head of the bed, she wanted it even higher. tolerating clears without nausea or emesis. passing multiple liquid stools. no abdominal pain. she said several times "I want to go home but I'm so weak - I know I can't go home." shortly after the visit I stopped her fluids, gave lasix, and several hours later I checked on her and the breathing was improved Review of Systems Constitutional: + fatigue and + weakness; no anorexia (tolerating clears ) Respiratory: + dyspnea and + dyspnea on exertion Cardiovascular: + orthopnea Gastrointestinal: + diarrhea/loose stools (copious ); no abdominal pain, no nausea and no vomiting Physical Exam Constitutional: + acute distress (mild-moderate dyspnea, wanting to sit up due to orthopnea) and + morbidly obese; no altered mental status ENMT: external ear and nose normal, oropharynx normal Respiratory: + tachypneic Auscultation: + diminished lung sounds (bases ), + crackles (b/l bases ) and + wheezes (b/l - mild ) Cardiovascular: Rate/Rhythm: regular rate and regular rhythm Heart Sounds: normal S1 and normal S2; no murmur Vessels: posterior tibial pulses present and dorsalis pedis pulses present; no JVD Extremities: + edema (1+ b/l ) Gastrointestinal (Abdomen): Inspection/Auscultation: normal bowel sounds and + visible herniation (left abdomen - very large - nontender to palpation, reducible/not hard); abdomen not distended Percussion/Palpation: abdomen soft; abdomen nontender, no guarding, abdomen not rigid and no hepatosplenomegaly Musculoskeletal: Extremities: + upper extremity abnormal to inspection Bilateral (shortened arms; biceps region on right is deformed/enlarged) Skin: + pallor Psychiatric: Orientation: alert, oriented to person, oriented to place and oriented to time Affect: + tearful affect (sad because she knows she's too weak to go home ) Results & Data Results & Data ([facility]) Vital Signs (Past 12 Hours) Vital Signs Temp Pulse Resp BP Pulse Ox 01/14/21 15:14 36.8 C 72 22 155/82 H 92 Laboratory Results BMP wnl BSGs wnl PG Care Time/CCT Total # of Minutes Spent Total Time Spent with Patient: Total time spent is greater than 50% in coordination of care (as documented) at patient's floor/unit and/or counseling patient: Coding Level of Care Code 91485 Subseq Hosp Care Lvl 3 Diagnoses Partial small bowel obstruction K56.600 Shock R57.9 SIRS (systemic inflammatory response syndrome) R65.10 ATN (acute tubular necrosis) N17.0 Hyperkalemia E87.5 Encephalopathy G93.40 Chronic respiratory failure with hypoxia J96.11 Diabetes mellitus type 2, uncontrolled E11.65 Uncontrolled type 2 diabetes mellitus with hyperosmolarity, without long-term current use of insulin E11.00 Hypertension I10 Hypertension type: essential hypertension Chronic obstructive pulmonary disease J44.9 COPD type: unspecified COPD Ventral hernia K43.9 Peripheral neuropathy G62.89 Peripheral neuropathy type: polyneuropathy, other Chronic right-sided congestive heart failure I50.812 DVT prophylaxis Z29.9 (1) Hypertension Hypertension type: essential hypertension Qualified Code(s): I10 - Essential (primary) hypertension (2) Chronic obstructive pulmonary disease COPD type: unspecified COPD Qualified Code(s): J44.9 - Chronic obstructive pulmonary disease, unspecified (3) Peripheral neuropathy Peripheral neuropathy type: polyneuropathy, other Qualified Code(s): G62.89 - Other specified polyneuropathies
[2021-01-15] MEDS: ENOXAPARIN INJ 40 MG/0.4 ML SYR SQ SCH ×2 (05:24→18:00)
[2021-01-15 06:38] LABS: BUN Creatinine Ratio 20.3 (10-20); Calcium 8.5 mg/dl (8.5-10.1); Creatinine Clr Calc Pharmacy 142.7 ml/min; Est GFR (African American) 120.3 ml/min; Est GFR (Non-African American) 103.8 ml/min; Magnesium 1.5 mg/dl (1.8-2.4); Potassium 3.3 mmol/L (3.5-5.1)
[2021-01-15] MEDS: GABAPENTIN 300 MG CAP PO SCH ×3 (08:41→20:22)
[2021-01-15] MEDS: INSULIN ASPART 100 UNITS/ML 3 ML PEN SC SCH ×4 (08:43→21:14)
[2021-01-15] MEDS: INSULIN GLARGINE SOLOSTAR 100 UNITS/ML 3 ML PEN SC SCH ×2 (08:44→21:15)
[2021-01-15] MEDS: POTASSIUM CHLORIDE CRTAB 20 MEQ TABCR PO SCH ×3 (09:34→20:21)
[2021-01-15] MEDS: MAGNESIUM SULFATE / D5W 1 GM/100 ML BAG IV SCH ×3 (09:35→13:46)
[2021-01-15] MEDS: ACETAMINOPHEN 500 MG TAB PO PRN (12:10)
[2021-01-15] MEDS ORDERED: FUROSEMIDE 40 MG in SYRINGE 0 ML IV ONE (12:30)
[2021-01-15] MEDS: ASPIRIN 81 MG CHEW PO SCH (20:21)
[2021-01-15] MEDS: QUEtiapine FUMARATE 25 MG TABLET PO SCH (20:22)
[2021-01-15] MEDS: ATORVASTATIN 40 MG TAB PO SCH (20:22)
--- NOTE | 2021-01-15 22:24 | Hospitalist Progress Note ---
Date of Service January 15, 2021 Assessment & Plan (1) Partial small bowel obstruction: Plan: resolved was 2nd to large ventral hernia NG tube d/c 01/13 by gen surg appreciate their assistance advance to low fiber, DM diet today (2) Shock: Plan: resolved required pressors for 2+ days in the ICU septic in the setting of right-heart failure? due to 3rd spacing from pSBO? other? no addisonian crisis either way resolved (3) SIRS (systemic inflammatory response syndrome): Plan: resolved 2nd to pSBO (4) ATN (acute tubular necrosis): Plan: 2nd shock - resolved (5) Hyperkalemia: Plan: resolved had been 2nd to EYAD (6) Encephalopathy: Plan: resolved back to baseline; a/o x 3 (7) Chronic respiratory failure with hypoxia: Plan: stable on home O2 amount (8) Diabetes mellitus type 2, uncontrolled: Plan: severely uncontrolled at time of admission with BSGs >700 improved s/p insulin drip now over to basal-bolus SC regimen with good control (9) Uncontrolled type 2 diabetes mellitus with hyperosmolarity, without long- term current use of insulin: Plan: pharmacy following & managing control very satisfactory a1c 15% will need intensive insulin regimen at discharge (10) Hypertension: Plan: BPs still controlled off of her PATTIE inhibitor cont to monitor (11) Chronic obstructive pulmonary disease: Plan: no exacerbation at this time (12) Ventral hernia: Plan: large, with suspected pSBO due to the hernia pSBO resolved not a surgical candidate to fix the hernia - the hernia is massive (13) Peripheral neuropathy: Plan: at baseline b/l legs (14) Chronic right-sided congestive heart failure: Plan: decompensated acute/chronic right-sided CHF (15) Hypomagnesemia: Plan: 2nd to diarrhea and diuretics (16) Hypokalemia: Plan: 2nd to diarrhea and diuretics (17) DVT prophylaxis: Plan: lovenox 40 BID Plan: 1. replace low mag -- 3gms mag sulfate x 1 2. replace low K -- 40meq K-dur TID 3. labs am 4. check c diff due to diarrhea 5. cont PT, OT. 6. glycemic management per pharmacy. appreciate their assistance. 7. advance diet to low fiber/T2DM 8. once mag and K are replaced will give additional lasix 40mg IV x 1 daughter updated by phone, 01/13 updated at bedside, 7/17 realistically could only go home if able to perform transfers otherwise needs rehab Admission and Anticipated Discharge Date Admission Date: January 08, 2021 Subjective patient w/ copious UOP with lasix this am incontinent of urine due to so much UOP diarrhea has stopped tolerating diet without nausea, emesis or abd pain at bedside during the visit she voices that she wants to go home rather than rehab, stating that "what I am doing here I do at home." however, she apparently is able to perform transfers, pivot, and also walk about 2 feet to get from wheelchair to a regular chair, etc right now she is unable to do that due to generalized weakness no new complaints Review of Systems Constitutional: no fever, no chills, no body aches, no fatigue and no anorexia Respiratory: + dyspnea on exertion; no cough Cardiovascular: no chest pain Gastrointestinal: + diarrhea/loose stools (has resolved ); no abdominal pain, no nausea, no vomiting and no blood in stools Physical Exam Constitutional: + morbidly obese; no acute distress and no altered mental status ENMT: external ear and nose normal, oropharynx normal Respiratory: normal respiratory effort, lungs clear to auscultation Auscultation: + diminished lung sounds (bases ) and + crackles (b/l bases ); no wheezes Cardiovascular: Rate/Rhythm: regular rate and regular rhythm Heart Sounds: normal S1 and normal S2; no murmur Vessels: posterior tibial pulses present and dorsalis pedis pulses present; no JVD Extremities: + edema (trace b/l ) Gastrointestinal (Abdomen): Inspection/Auscultation: normal bowel sounds and + visible herniation (L abd, very large ventral hernia- NT to palpation, reducible/not hard); abdomen not distended Percussion/Palpation: abdomen soft and + hernia (as above ); abdomen nontender, no guarding, abdomen not rigid and no hepatosplenomegaly Musculoskeletal: Extremities: + upper extremity abnormal to inspection Bilateral (shortened arms; biceps region on right is deformed/enlarged) Skin: + pallor Psychiatric: Orientation: alert and oriented x 3 Results & Data Results & Data ([facility]) Vital Signs (Past 12 Hours) Vital Signs Temp Pulse Resp BP Pulse Ox 01/15/21 16:04 36.8 C 65 20 161/75 H 92 Laboratory Results Laboratory Results - last 24 hr 01/15/21 01/15/21 01/15/21 05:46 08:18 12:17 Sodium 142 Potassium 3.3 L Chloride 106 Carbon Dioxide 30 Anion Gap 5.0 BUN 9 Creatinine 0.43 L Est Cr Clr Drug Dosing 142.7 Est GFR ( Amer) 120.3 Est GFR (Non-Af Amer) 103.8 BUN/Creatinine Ratio 20.3 H Glucose 116 H POC Glucose 123 H 146 H Calcium 8.5 Magnesium 1.5 L 01/15/21 01/15/21 17:26 21:13 Sodium Potassium Chloride Carbon Dioxide Anion Gap BUN Creatinine Est Cr Clr Drug Dosing Est GFR ( Amer) Est GFR (Non-Af Amer) BUN/Creatinine Ratio Glucose POC Glucose 136 H 162 H Calcium Magnesium PG Care Time/CCT Total # of Minutes Spent Total Time Spent with Patient: Total time spent is greater than 50% in coordination of care (as documented) at patient's floor/unit and/or counseling patient: Coding Level of Care Code 92754 Subseq Hosp Care Lvl 3 Diagnoses Partial small bowel obstruction K56.600 Shock R57.9 SIRS (systemic inflammatory response syndrome) R65.10 ATN (acute tubular necrosis) N17.0 Hyperkalemia E87.5 Encephalopathy G93.40 Chronic respiratory failure with hypoxia J96.11 Diabetes mellitus type 2, uncontrolled E11.65 Uncontrolled type 2 diabetes mellitus with hyperosmolarity, without long-term current use of insulin E11.00 Hypertension I10 Hypertension type: essential hypertension Chronic obstructive pulmonary disease J44.9 COPD type: unspecified COPD Ventral hernia K43.9 Peripheral neuropathy G62.89 Peripheral neuropathy type: polyneuropathy, other Chronic right-sided congestive heart failure I50.812 DVT prophylaxis Z29.9 Hypomagnesemia E83.42 Hypokalemia E87.6 (1) Peripheral neuropathy Peripheral neuropathy type: polyneuropathy, other Qualified Code(s): G62.89 - Other specified polyneuropathies (2) Chronic obstructive pulmonary disease COPD type: unspecified COPD Qualified Code(s): J44.9 - Chronic obstructive pulmonary disease, unspecified (3) Hypertension Hypertension type: essential hypertension Qualified Code(s): I10 - Essential (primary) hypertension
[2021-01-16] MEDS: ENOXAPARIN INJ 40 MG/0.4 ML SYR SQ SCH ×2 (05:08→18:08)
[2021-01-16 07:36] LABS: BUN Creatinine Ratio 19.1 (10-20); Calcium 9.1 mg/dl (8.5-10.1); Creatinine Clr Calc Pharmacy 150.1 ml/min; Est GFR (African American) 121.2 ml/min; Est GFR (Non-African American) 104.6 ml/min; Magnesium 1.5 mg/dl (1.8-2.4); Potassium 4.2 mmol/L (3.5-5.1)
[2021-01-16] MEDS: ACETAMINOPHEN 500 MG TAB PO PRN ×2 (07:37→16:53)
--- NOTE | 2021-01-16 08:51 | Pharmacy Report ---
Pharmacy Glycemic Short Note 2 - Date of Service January 16, 2021 - Glycemic Short BSG Results (Last 24 hours): 01/15/21 01/15/21 01/15/21 12:17 17:26 21:13 Glucose POC Glucose 146 H 136 H 162 H 01/16/21 01/16/21 06:50 08:05 Glucose 160 H POC Glucose 153 H OUTPATIENT ANTIDIABETIC REGIMEN: * Januvia 100 mg daily * HBA1C = 15.3% (01/09/21) ASSESSMENT: 01/16: * Traci received 44 units of insulin yesterday, 26 units basal, 18 units bolus * BSGs were well controlled: 116-160 mg/dL * Patient on T2DM diet 01/14: * Traci received 8 units of insulin yesterday, all basal * BSGs were well controlled: 642-040-96-102-97 mg/dL * Fasting BSG well controlled at 127 mg/dL this AM * Will continue with current basal insulin scale * Patient was ordered a T2DM/Clear Liquid diet this AM - will follow PO intake throughout the day and adjust insulin regimen as necessary 01/13: * BSGs well controlled over last 24 hrs * Transitioned off insulin drip yesterday afternoon * BSGs did fall quickly once norepi infusion titrated off * BSGs have recovered into the low 100s this AM. Currently has 34 units basal on board. Will resume basal at a reduced dosage and split BID. Patient remains NPO * Current Novolog CF/CR are reasonable starting points. 01/12: * Pressor requirement significantly decreasing. Antibiotics discontinued. * OK to transition to basal/bolus per ICU rounds discussion * Drip still running at 2.3 units/hr despite 18 units of Lantus BID yesterday. However, patient still NPO therefore aggressive increase not indicated. Will increase this AM's dose by only 16 units (for a total of 34 units this AM). Additional Lantus tonight based on BSG * Will initiate Novolog at q4h 01/11: * Patient transferred to ICU secondary to hypotension, EYAD and need for pressor support * Patient remains on insulin drip this AM with infusion rates 4-5 units/hr which are currently producing desirable BSGs. * Will continue IV insulin drip relatively high infusion rates, continued norepi provision (currently running 0.12mcg/kg/min) and ongoing NPO status. * Will add "moderate" wt-based dose of Lantus, however, as this will allow for easier drip transition in the future. PLAN FOR INPATIENT GLYCEMIC CONTROL: * Hold outpatient oral diabetes medications * Lantus SQ BID per scale: * 0 units if less than 110 mg/dL * 8 units if 110-140 mg/dL * 18 units if 141-200 mg/dL * 26 units if greater than 200 mg/dL Bolus insulin * Novolog ACHS * Goal range: 110-140 mg/dL * Correction factor: 20 mg/dL/unit * Carb ratio: 6 g CHO/unit PLAN FOR DISCHARGE: * HbA1c = 15.3% from this admission. Patient will require insulin upon discharge. * Continue to trend insulin requirements and will make a more specific recommendation prior to discharge, insulin requirements have quadrupled over the past day with advancing diet.
[2021-01-16] MEDS: POTASSIUM CHLORIDE CRTAB 20 MEQ TABCR PO SCH ×2 (08:52→19:43)
[2021-01-16] MEDS: GABAPENTIN 300 MG CAP PO SCH ×3 (08:52→22:25)
[2021-01-16] MEDS: INSULIN GLARGINE SOLOSTAR 100 UNITS/ML 3 ML PEN SC SCH ×2 (08:55→22:24)
[2021-01-16] MEDS: INSULIN ASPART 100 UNITS/ML 3 ML PEN SC SCH ×4 (08:56→22:23)
[2021-01-16] MEDS: MAGNESIUM SULFATE / D5W 1 GM/100 ML BAG IV SCH ×3 (09:21→13:00)
[2021-01-16] MEDS ORDERED: FUROSEMIDE 40 MG in SYRINGE 0 ML IV ONE (13:15)
[2021-01-16] MEDS: MAGNESIUM OXIDE 400 MG TAB PO SCH ×2 (14:18→22:23)
[2021-01-16] MEDS: ATORVASTATIN 40 MG TAB PO SCH (19:43)
[2021-01-16] MEDS: QUEtiapine FUMARATE 25 MG TABLET PO SCH (22:23)
[2021-01-16] MEDS: ASPIRIN 81 MG CHEW PO SCH (22:30)
--- NOTE | 2021-01-16 22:58 | Hospitalist Progress Note ---
Date of Service January 16, 2021 Assessment & Plan (1) Partial small bowel obstruction: Plan: resolved was 2nd to large ventral hernia NG tube placed 01/10 NG tube d/c 01/13 by gen surg appreciate their assistance advanced to low fiber, DM diet and doing well with this we suspect that the pSBO contributed to her shock state see below lastly - had been having diarrhea after pSBO resolved; c diff negative (2) Shock: Plan: resolved required pressors for 2+ days in the ICU septic in the setting of right-heart failure? due to 3rd spacing from pSBO? other? combination? either way resolved with nice BPs the last 2-3 days (3) SIRS (systemic inflammatory response syndrome): Plan: resolved 2nd to pSBO (4) ATN (acute tubular necrosis): Plan: 2nd shock - resolved (5) Hyperkalemia: Plan: resolved had been 2nd to EYAD (6) Encephalopathy: Plan: resolved back to baseline; a/o x 3 had reported confusion for 3-4 weeks before admission - suspect due to severe hyperglycemia (BSGs 500+) (7) Chronic respiratory failure with hypoxia: Plan: stable on home O2 amount (8) Diabetes mellitus type 2, uncontrolled: Plan: severely uncontrolled at time of admission with BSGs >700 improved s/p insulin drip now over to basal-bolus SC regimen with good control (9) Uncontrolled type 2 diabetes mellitus with hyperosmolarity, without long- term current use of insulin: Plan: pharmacy following & managing control very satisfactory a1c 15% will need intensive insulin regimen at discharge (10) Hypertension: Plan: BPs still controlled off of her PATTIE inhibitor cont to monitor off meds (11) Chronic obstructive pulmonary disease: Plan: no exacerbation at this time (12) Ventral hernia: Plan: large, with suspected pSBO due to the hernia pSBO resolved not a surgical candidate to fix the hernia - the hernia is massive (13) Peripheral neuropathy: Plan: at baseline b/l legs (14) Chronic right-sided congestive heart failure: Plan: decompensated acute/chronic right-sided CHF (15) Hypomagnesemia: Plan: 2nd to diarrhea and diuretics (16) Hypokalemia: Plan: 2nd to diarrhea and diuretics (17) DVT prophylaxis: Plan: lovenox 40 BID Plan: 1. replace low mag -- 3gms mag sulfate x [address] on mag oxide 400mg BID due to ongoing IV lasix diuresis. 2. cont K-dur but lower dose to 40meq daily 3. give lasix 40mg IV x 1 again today 4. suspect she may need lasix again tomorrow depending on weight and status daughter updated by phone, 01/13 updated at bedside, 01/15 realistically could only go home if able to perform transfers from bed to chair, chair to wheelchair, etc she is quite weak due to her prolonged hospitalization otherwise needs rehab Admission and Anticipated Discharge Date Admission Date: January 08, 2021 Subjective patient is very tired today not sleeping well but physically she is otherwise doing ok did sit in wheelchair today for a bit of time eating well diarrhea resolved no nausea/emesis/abd pain making copious urine with IV lasix still hopeful to return home but she knows she needs to be able to perform transfers to make that happen Review of Systems Constitutional: + fatigue; no fever, no chills and no anorexia Respiratory: + dyspnea on exertion; no cough Cardiovascular: no chest pain Gastrointestinal: no abdominal pain, no nausea and no vomiting Neurologic: no confusion Physical Exam Constitutional: + morbidly obese; no acute distress and no altered mental status ENMT: external ear and nose normal, oropharynx normal Respiratory: no respiratory distress Auscultation: lungs clear to auscultation bilaterally and + diminished lung sounds (bases); no crackles and no wheezes Cardiovascular: Rate/Rhythm: regular rate and regular rhythm Heart Sounds: normal S1 and normal S2; no murmur Vessels: posterior tibial pulses present and dorsalis pedis pulses present; no JVD Extremities: no edema Gastrointestinal (Abdomen): soft, large ventral hernia LLQ - this is nontender to palpation, and no overlying redness/swelling. BS+. nontender in other quadrants. Musculoskeletal: Extremities: + extremities dysmorphic (b/l arms ) Skin: no rashes, warm and dry Neurologic: not confused Psychiatric: Orientation: alert and oriented x 3 can recite the months of the year backward Results & Data Results & Data ([facility]) Vital Signs (Past 12 Hours) Vital Signs Temp Pulse Resp BP Pulse Ox 01/16/21 15:26 36.5 C 66 24 109/73 95 01/16/21 14:19 77 131/79 Laboratory Results Laboratory Results - last 24 hr 01/15/21 01/16/21 01/16/21 22:34 06:50 08:05 Sodium 139 Potassium 4.2 D Chloride 106 Carbon Dioxide 32 Anion Gap 1.0 L BUN 8 Creatinine 0.42 L Est Cr Clr Drug Dosing 150.1 Est GFR ( Amer) 121.2 Est GFR (Non-Af Amer) 104.6 BUN/Creatinine Ratio 19.1 Glucose 160 H POC Glucose 153 H Calcium 9.1 Magnesium 1.5 L Stl C. diff Tox B Gene Negative Cdiff Gene 01/16/21 01/16/21 01/16/21 12:17 17:09 21:39 Sodium Potassium Chloride Carbon Dioxide Anion Gap BUN Creatinine Est Cr Clr Drug Dosing Est GFR ( Amer) Est GFR (Non-Af Amer) BUN/Creatinine Ratio Glucose POC Glucose 140 H 158 H 162 H Calcium Magnesium Stl C. diff Tox B Gene PG Care Time/CCT Total # of Minutes Spent Total Time Spent with Patient: Total time spent is greater than 50% in coordination of care (as documented) at patient's floor/unit and/or counseling patient: Coding Level of Care Code 43196 Subseq Hosp Care Lvl 3 Diagnoses Partial small bowel obstruction K56.600 Shock R57.9 SIRS (systemic inflammatory response syndrome) R65.10 ATN (acute tubular necrosis) N17.0 Hyperkalemia E87.5 Encephalopathy G93.40 Chronic respiratory failure with hypoxia J96.11 Diabetes mellitus type 2, uncontrolled E11.65 Uncontrolled type 2 diabetes mellitus with hyperosmolarity, without long-term current use of insulin E11.00 Hypertension I10 Hypertension type: essential hypertension Chronic obstructive pulmonary disease J44.9 COPD type: unspecified COPD Ventral hernia K43.9 Peripheral neuropathy G62.89 Peripheral neuropathy type: polyneuropathy, other Chronic right-sided congestive heart failure I50.812 Hypomagnesemia E83.42 Hypokalemia E87.6 DVT prophylaxis Z29.9 (1) Hypertension Hypertension type: essential hypertension Qualified Code(s): I10 - Essential (primary) hypertension (2) Chronic obstructive pulmonary disease COPD type: unspecified COPD Qualified Code(s): J44.9 - Chronic obstructive pulmonary disease, unspecified (3) Peripheral neuropathy Peripheral neuropathy type: polyneuropathy, other Qualified Code(s): G62.89 - Other specified polyneuropathies
[2021-01-17] MEDS: ENOXAPARIN INJ 40 MG/0.4 ML SYR SQ SCH ×2 (06:20→18:03)
[2021-01-17 06:33] LABS: Hematocrit (blood only) 42.9 % (37-47); Hemoglobin 13.6 g/dL (12.0-16.0); Mean Corpuscular Hemoglobin 30.8 pg (25-34); Mean Corpuscular Hgb Conc 31.7 g/dL (32-36); Mean Corpuscular Volume 97.3 fL (80-100); Mean Platelet Volume 8.8 fL (7.4-10.4); Platelet Count 342 K/uL (130-400); RDW Coefficient of Variation 15.7 % (11.5-14.5); RDW Standard Deviation 55.6 fL (36.4-46.3); Red Blood Count 4.41 M/uL (4.2-5.4); White Blood Count 4.43 K/uL (4.8-10.8)
[2021-01-17 07:07] LABS: BUN Creatinine Ratio 22.9 (10-20); Calcium 8.9 mg/dl (8.5-10.1); Creatinine Clr Calc Pharmacy 141.5 ml/min; Est GFR (African American) 119.4 ml/min; Magnesium 1.6 mg/dl (1.8-2.4); Potassium 4.2 mmol/L (3.5-5.1)
[2021-01-17] MEDS: INSULIN ASPART 100 UNITS/ML 3 ML PEN SC SCH ×4 (08:48→20:57)
[2021-01-17] MEDS: INSULIN GLARGINE SOLOSTAR 100 UNITS/ML 3 ML PEN SC SCH (08:48)
[2021-01-17] MEDS: GABAPENTIN 300 MG CAP PO SCH ×3 (08:51→20:47)
[2021-01-17] MEDS: MAGNESIUM OXIDE 400 MG TAB PO SCH ×2 (08:52→20:47)
[2021-01-17] MEDS: POTASSIUM CHLORIDE CRTAB 20 MEQ TABCR PO SCH (08:52)
[2021-01-17] MEDS: ACETAMINOPHEN 500 MG TAB PO PRN (10:39)
--- NOTE | 2021-01-17 12:51 | Hospitalist Progress Note ---
Date of Service January 17, 2021 Assessment & Plan (1) Partial small bowel obstruction: Plan: resolved was 2nd to large ventral hernia NG tube placed 01/10 NG tube d/c 01/13 by gen surg appreciate their assistance advanced to low fiber, DM diet and doing well with this we suspect that the pSBO contributed to her shock state see below lastly - had been having diarrhea after pSBO resolved; c diff negative (2) Shock: Plan: resolved required pressors for 2+ days in the ICU septic in the setting of right-heart failure? due to 3rd spacing from pSBO? other? combination? either way resolved with nice BPs the last 2-3 days (3) SIRS (systemic inflammatory response syndrome): Plan: resolved 2nd to pSBO (4) ATN (acute tubular necrosis): Plan: 2nd shock - resolved (5) Hyperkalemia: Plan: resolved had been 2nd to EYAD (6) Encephalopathy: Plan: resolved back to baseline; a/o x 3 had reported confusion for 3-4 weeks before admission - suspect due to severe hyperglycemia (BSGs 500+) (7) Chronic respiratory failure with hypoxia: Plan: stable on home O2 amount (8) Diabetes mellitus type 2, uncontrolled: Plan: severely uncontrolled at time of admission with BSGs >700 improved s/p insulin drip now over to basal-bolus SC regimen with good control (9) Uncontrolled type 2 diabetes mellitus with hyperosmolarity, without long- term current use of insulin: Plan: pharmacy following & managing control very satisfactory a1c 15% will need intensive insulin regimen at discharge (10) Hypertension: Plan: BPs still controlled off of her PATTIE inhibitor cont to monitor off meds (11) Chronic obstructive pulmonary disease: Plan: no exacerbation at this time (12) Ventral hernia: Plan: large, with suspected pSBO due to the hernia pSBO resolved not a surgical candidate to fix the hernia - the hernia is massive (13) Peripheral neuropathy: Plan: at baseline b/l legs (14) Chronic right-sided congestive heart failure: Plan: Now resolved, appears euvolemic. No further lasix to be given. Labs suggest contraction alkalosis. acute/chronic right-sided CHF (15) Hypomagnesemia: Plan: 2nd to diarrhea and diuretics (16) Hypokalemia: Plan: 2nd to diarrhea and diuretics (17) DVT prophylaxis: Plan: lovenox 40 BID Plan: Await repeat assessment by PT/OT to determine home/rehab realistically could only go home if able to perform transfers from bed to chair, chair to wheelchair, etc she is quite weak due to her prolonged hospitalization otherwise needs rehab Admission and Anticipated Discharge Date Admission Date: January 08, 2021 Subjective Reports doing much better since admission Feels she may be ready for discharge tomorrow. No further diarrhea, nausea, vomiting or abdominal pain Review of Systems Review of Systems: All systems reviewed & are unremarkable except as noted in HPI & below Physical Exam Constitutional: + morbidly obese; no acute distress and no altered mental status ENMT: external ear and nose normal, oropharynx normal Respiratory: no respiratory distress Auscultation: lungs clear to auscultation bilaterally and + diminished lung sounds (bases); no crackles and no wheezes Cardiovascular: Rate/Rhythm: regular rate and regular rhythm Heart Sounds: no murmur Vessels: no JVD Extremities: no edema Gastrointestinal (Abdomen): Percussion/Palpation: abdomen soft; abdomen nontender Non-tender ventral hernia Musculoskeletal: Extremities: + extremities dysmorphic (b/l arms) Skin: no rashes, warm and dry Neurologic: moves all extremities and awake; not confused Psychiatric: Orientation: alert and oriented x 3 can recite the months of the year backward Results & Data Results & Data ([facility]) Vital Signs (Past 12 Hours) Vital Signs Temp Pulse Resp BP Pulse Ox 01/17/21 06:00 36.6 C 67 20 124/67 96 PG Care Time/CCT Total # of Minutes Spent Total Time Spent with Patient: Total time spent is greater than 50% in coordination of care (as documented) at patient's floor/unit and/or counseling patient: Coding Level of Care Code 53360 Subseq Hosp Care Lvl 1 Diagnoses Partial small bowel obstruction K56.600 Shock R57.9 SIRS (systemic inflammatory response syndrome) R65.10 ATN (acute tubular necrosis) N17.0 Hyperkalemia E87.5 Encephalopathy G93.40 Chronic respiratory failure with hypoxia J96.11 Diabetes mellitus type 2, uncontrolled E11.65 Uncontrolled type 2 diabetes mellitus with hyperosmolarity, without long-term current use of insulin E11.00 Hypertension I10 Hypertension type: essential hypertension Chronic obstructive pulmonary disease J44.9 COPD type: unspecified COPD Ventral hernia K43.9 Peripheral neuropathy G62.89 Peripheral neuropathy type: polyneuropathy, other Chronic right-sided congestive heart failure I50.812 Hypomagnesemia E83.42 Hypokalemia E87.6 DVT prophylaxis Z29.9 (1) Peripheral neuropathy Peripheral neuropathy type: polyneuropathy, other Qualified Code(s): G62.89 - Other specified polyneuropathies (2) Chronic obstructive pulmonary disease COPD type: unspecified COPD Qualified Code(s): J44.9 - Chronic obstructive pulmonary disease, unspecified (3) Hypertension Hypertension type: essential hypertension Qualified Code(s): I10 - Essential (primary) hypertension
--- NOTE | 2021-01-17 14:51 | Pharmacy Report ---
Pharmacy Glycemic Short Note 2 - Date of Service January 17, 2021 - Glycemic Short BSG Results (Last 24 hours): 01/16/21 01/16/21 01/17/21 17:09 21:39 06:17 Glucose 161 H POC Glucose 158 H 162 H 01/17/21 01/17/21 01/17/21 06:17 08:10 12:06 Glucose POC Glucose 149 H 158 H 129 H OUTPATIENT ANTIDIABETIC REGIMEN: * Januvia 100 mg daily * HBA1C = 15.3% (01/09/21) ASSESSMENT: 01/17: * Patient required 57 units of insulin yesterday, of which 36 units were basal insulin * Fasting BSG 161 mg/dL - plan to continue same basal, will change from BID dosing to once daily dosing tomorrow. Will give PM Lantus at dinner today, then redose again tomorrow AM/lunch time * No change to CF/CR 01/16: * Traci received 44 units of insulin yesterday, 26 units basal, 18 units bolus * BSGs were well controlled: 116-160 mg/dL * Patient on T2DM diet 01/14: * Traci received 8 units of insulin yesterday, all basal * BSGs were well controlled: 843-799-00-102-97 mg/dL * Fasting BSG well controlled at 127 mg/dL this AM * Will continue with current basal insulin scale * Patient was ordered a T2DM/Clear Liquid diet this AM - will follow PO intake throughout the day and adjust insulin regimen as necessary 01/13: * BSGs well controlled over last 24 hrs * Transitioned off insulin drip yesterday afternoon * BSGs did fall quickly once norepi infusion titrated off * BSGs have recovered into the low 100s this AM. Currently has 34 units basal on board. Will resume basal at a reduced dosage and split BID. Patient remains NPO * Current Novolog CF/CR are reasonable starting points. 01/12: * Pressor requirement significantly decreasing. Antibiotics discontinued. * OK to transition to basal/bolus per ICU rounds discussion * Drip still running at 2.3 units/hr despite 18 units of Lantus BID yesterday. However, patient still NPO therefore aggressive increase not indicated. Will increase this AM's dose by only 16 units (for a total of 34 units this AM). Additional Lantus tonight based on BSG * Will initiate Novolog at q4h 01/11: * Patient transferred to ICU secondary to hypotension, EYAD and need for pressor support * Patient remains on insulin drip this AM with infusion rates 4-5 units/hr which are currently producing desirable BSGs. * Will continue IV insulin drip relatively high infusion rates, continued norepi provision (currently running 0.12mcg/kg/min) and ongoing NPO status. * Will add "moderate" wt-based dose of Lantus, however, as this will allow for easier drip transition in the future. PLAN FOR INPATIENT GLYCEMIC CONTROL: * Hold outpatient oral diabetes medications * Lantus SQ BID per scale: * 18 units AM, 17 units with supper * Plan 30-35 units Lantus once daily tomorrow Bolus insulin * Novolog ACHS * Goal range: 110-140 mg/dL * Correction factor: 20 mg/dL/unit * Carb ratio: 6 g CHO/unit PLAN FOR DISCHARGE: * HbA1c = 15.3% from this admission. Patient will require insulin upon discharge. * Continue to trend insulin requirements and will make a more specific recommendation prior to discharge. Patient currently requiring about ~30-35 units of basal insulin per day, however not at steady state. Will continue to follow as regimen likely will need adjusted
[2021-01-17] MEDS ORDERED: INSULIN GLARGINE SOLOSTAR 100 UNITS/ML 3 ML PEN SC ONE (17:00)
[2021-01-17] MEDS: ASPIRIN 81 MG CHEW PO SCH (20:47)
[2021-01-17] MEDS: ATORVASTATIN 40 MG TAB PO SCH (20:47)
[2021-01-17] MEDS: QUEtiapine FUMARATE 25 MG TABLET PO SCH (20:48)
[2021-01-18] MEDS: ENOXAPARIN INJ 40 MG/0.4 ML SYR SQ SCH ×2 (06:08→18:43)
[2021-01-18] MEDS: ACETAMINOPHEN 500 MG TAB PO PRN ×2 (06:10→13:55)
[2021-01-18 08:35] LABS: Basophils # (auto) 0.05 K/uL (0-0.2); Eosinophils # (auto) 0.14 K/uL (0-0.5); Eosinophils % (auto) 2.8 %; Hematocrit (blood only) 40.9 % (37-47); Immature Granulocytes # (auto) 0.05 K/uL (0.00-0.02); Lymphocytes % (auto) 24.2 %; Mean Corpuscular Hemoglobin 30.4 pg (25-34); Mean Corpuscular Hgb Conc 31.8 g/dL (32-36); Mean Corpuscular Volume 95.6 fL (80-100); Mean Platelet Volume 8.9 fL (7.4-10.4); Monocytes # (auto) 0.47 K/uL (0.11-0.59); Monocytes % (auto) 9.5 %; Neutrophils # (auto) 3.04 K/uL (1.4-6.5); Neutrophils % (auto) 61.5 %; Platelet Count 382 K/uL (130-400); RDW Coefficient of Variation 15.7 % (11.5-14.5); RDW Standard Deviation 54.1 fL (36.4-46.3); Red Blood Count 4.28 M/uL (4.2-5.4); White Blood Count 4.95 K/uL (4.8-10.8)
--- NOTE | 2021-01-18 08:44 | Pharmacy Report ---
Pharmacy Glycemic Short Note 2 - Date of Service January 18, 2021 - Glycemic Short BSG Results (Last 24 hours): 01/17/21 01/17/21 01/17/21 12:06 17:12 20:57 POC Glucose 129 H 94 164 H 01/18/21 07:57 POC Glucose 165 H OUTPATIENT ANTIDIABETIC REGIMEN: * Januvia 100 mg daily * HBA1C = 15.3% (01/09/21) ASSESSMENT: 01/18: * MALENA received 66 units of insulin yesterday, 35 units of basal and 31 units of prandial/correctional bolus * BSGs reasonably well-controlled at 161, 129, 94, and 164 mg/dL * Will plan to transition to once daily basal insulin today to facilitate discharge 01/17: * Patient required 57 units of insulin yesterday, of which 36 units were basal insulin * Fasting BSG 161 mg/dL - plan to continue same basal, will change from BID dosing to once daily dosing tomorrow. Will give PM Lantus at dinner today, then redose again tomorrow AM/lunch time * No change to CF/CR 01/14: * Traci received 8 units of insulin yesterday, all basal * BSGs were well controlled: 016-199-27-102-97 mg/dL * Fasting BSG well controlled at 127 mg/dL this AM * Will continue with current basal insulin scale * Patient was ordered a T2DM/Clear Liquid diet this AM - will follow PO intake throughout the day and adjust insulin regimen as necessary 01/13: * BSGs well controlled over last 24 hrs * Transitioned off insulin drip yesterday afternoon * BSGs did fall quickly once norepi infusion titrated off * BSGs have recovered into the low 100s this AM. Currently has 34 units basal on board. Will resume basal at a reduced dosage and split BID. Patient remains NPO * Current Novolog CF/CR are reasonable starting points. 01/12: * Pressor requirement significantly decreasing. Antibiotics discontinued. * OK to transition to basal/bolus per ICU rounds discussion * Drip still running at 2.3 units/hr despite 18 units of Lantus BID yesterday. However, patient still NPO therefore aggressive increase not indicated. Will increase this AM's dose by only 16 units (for a total of 34 units this AM). Additional Lantus tonight based on BSG * Will initiate Novolog at q4h 01/11: * Patient transferred to ICU secondary to hypotension, EYAD and need for pressor support * Patient remains on insulin drip this AM with infusion rates 4-5 units/hr which are currently producing desirable BSGs. * Will continue IV insulin drip relatively high infusion rates, continued norepi provision (currently running 0.12mcg/kg/min) and ongoing NPO status. * Will add "moderate" wt-based dose of Lantus, however, as this will allow for easier drip transition in the future. PLAN FOR INPATIENT GLYCEMIC CONTROL: * Hold outpatient oral diabetes medications * Basal insulin * Lantus 35 units SC daily * Bolus insulin * Novolog ACHS * Goal range: 110-140 mg/dL * Correction factor: 20 mg/dL/unit * Carb ratio: 6 g CHO/unit PLAN FOR DISCHARGE: * HbA1c = 15.3% from this admission. HbA1c is significantly above goal of less than 7%. Patient will require insulin upon discharge. * Per development educator note, patient recently was taken off of metformin and glimepiride due to stable HbA1c * Per external medication fill history, patient was taking metformin 850 mg PO TID * Would suggest restarting at metformin 500 mg PO daily with largest meal and then continue to titrate metformin dosing upwards as recommended. Dosage increases should be made in increments of ~500 mg weekly * Continue to trend insulin requirements and will make a more specific recommendation prior to discharge. Patient currently requiring about ~35 units of basal insulin per day, however not at steady state. Will continue to follow as regimen likely will need adjusted * At this point, Lantus 35 units SC daily seems reasonable
[2021-01-18] MEDS ORDERED: INSULIN GLARGINE SOLOSTAR 100 UNITS/ML 3 ML PEN SC SCH (09:00)
[2021-01-18 09:02] LABS: Albumin Level 2.5 gm/dl (3.4-5.0); BUN Creatinine Ratio 25.1 (10-20); Calcium 9.3 mg/dl (8.5-10.1); Creatinine Clr Calc Pharmacy 117.4 ml/min; Est GFR (African American) 112.3 ml/min; Est GFR (Non-African American) 96.9 ml/min; Potassium 4.4 mmol/L (3.5-5.1)
[2021-01-18 09:05] LABS: Albumin Globulin Ratio 0.6 (0.9-2); Bilirubin,Total 0.4 mg/dl (0.2-1); Total Protein 6.5 gm/dl (6.4-8.2)
[2021-01-18] MEDS: GABAPENTIN 300 MG CAP PO SCH ×3 (09:10→20:11)
[2021-01-18] MEDS: MAGNESIUM OXIDE 400 MG TAB PO SCH ×2 (09:10→20:10)
[2021-01-18] MEDS: INSULIN ASPART 100 UNITS/ML 3 ML PEN SC SCH ×4 (09:11→20:21)
[2021-01-18] MEDS: INSULIN GLARGINE SOLOSTAR 100 UNITS/ML 3 ML PEN SC SCH (09:11)
[2021-01-18] MEDS: POTASSIUM CHLORIDE CRTAB 20 MEQ TABCR PO SCH (09:14)
[2021-01-18] MEDS: QUEtiapine FUMARATE 25 MG TABLET PO SCH (20:11)
[2021-01-18] MEDS: ATORVASTATIN 40 MG TAB PO SCH (20:11)
[2021-01-18] MEDS: ASPIRIN 81 MG CHEW PO SCH (20:11)
--- NOTE | 2021-01-18 21:17 | Hospitalist Progress Note ---
Date of Service January 18, 2021 Assessment & Plan (1) Partial small bowel obstruction: Plan: resolved was 2nd to large ventral hernia NG tube placed 01/10 NG tube d/c 01/13 by gen surg appreciate their assistance advanced to low fiber, DM diet and doing well with this we suspect that the pSBO contributed to her shock state see below lastly - had been having diarrhea after pSBO resolved; c diff negative (2) Shock: Plan: resolved required pressors for 2+ days in the ICU septic in the setting of right-heart failure? due to 3rd spacing from pSBO? other? combination? BP stable (3) SIRS (systemic inflammatory response syndrome): Plan: resolved 2nd to pSBO (4) ATN (acute tubular necrosis): Plan: 2nd shock - resolved (5) Hyperkalemia: Plan: resolved had been 2nd to EYAD (6) Encephalopathy: Plan: resolved back to baseline; a/o x 3 had reported confusion for 3-4 weeks before admission - suspect due to severe hyperglycemia (BSGs 500+) (7) Chronic respiratory failure with hypoxia: Plan: stable on home O2 amount (8) Diabetes mellitus type 2, uncontrolled: Plan: severely uncontrolled at time of admission with BSGs >700 improved s/p insulin drip now over to basal-bolus SC regimen with good control (9) Uncontrolled type 2 diabetes mellitus with hyperosmolarity, without long- term current use of insulin: Plan: pharmacy following & managing control very satisfactory a1c 15% will need intensive insulin regimen at discharge (10) Hypertension: Plan: BPs still controlled off of her PATTIE inhibitor cont to monitor off meds (11) Chronic obstructive pulmonary disease: Plan: no exacerbation at this time (12) Ventral hernia: Plan: large, with suspected pSBO due to the hernia pSBO resolved not a surgical candidate to fix the hernia - the hernia is massive (13) Peripheral neuropathy: Plan: at baseline b/l legs (14) Chronic right-sided congestive heart failure: Plan: Now resolved, appears euvolemic. No further lasix to be given. Labs suggest contraction alkalosis. acute/chronic right-sided CHF (15) Hypomagnesemia: Plan: 2nd to diarrhea and diuretics (16) Hypokalemia: Plan: 2nd to diarrhea and diuretics (17) DVT prophylaxis: Plan: lovenox 40mg SQ BID Plan: Medically stable for discharge. Pending placement. Admission and Anticipated Discharge Date Admission Date: January 08, 2021 Subjective No further abdominal pain, nausea, vomiting. Eating and drinking well. No acute events overnight. Review of Systems Review of Systems: All systems reviewed & are unremarkable except as noted in HPI & below Physical Exam Constitutional: + morbidly obese; no acute distress and no altered mental status Respiratory: no respiratory distress Auscultation: lungs clear to auscultation bilaterally Cardiovascular: Rate/Rhythm: regular rate and regular rhythm Heart Sounds: no murmur Extremities: no edema Gastrointestinal (Abdomen): Percussion/Palpation: abdomen soft; abdomen nontender Musculoskeletal: Extremities: + extremities dysmorphic (b/l arms) Skin: no rashes, warm and dry Neurologic: moves all extremities and awake; not confused Psychiatric: Orientation: alert and oriented x 3 PG Care Time/CCT Total # of Minutes Spent Total Time Spent with Patient: Total time spent is greater than 50% in coordination of care (as documented) at patient's floor/unit and/or counseling patient: Coding Level of Care Code 50803 Subseq Hosp Care Lvl 1 Diagnoses Partial small bowel obstruction K56.600 Shock R57.9 SIRS (systemic inflammatory response syndrome) R65.10 ATN (acute tubular necrosis) N17.0 Hyperkalemia E87.5 Encephalopathy G93.40 Chronic respiratory failure with hypoxia J96.11 Diabetes mellitus type 2, uncontrolled E11.65 Uncontrolled type 2 diabetes mellitus with hyperosmolarity, without long-term current use of insulin E11.00 Hypertension I10 Hypertension type: essential hypertension Chronic obstructive pulmonary disease J44.9 COPD type: unspecified COPD Ventral hernia K43.9 Peripheral neuropathy G62.89 Peripheral neuropathy type: polyneuropathy, other Chronic right-sided congestive heart failure I50.812 Hypomagnesemia E83.42 Hypokalemia E87.6 DVT prophylaxis Z29.9 (1) Peripheral neuropathy Peripheral neuropathy type: polyneuropathy, other Qualified Code(s): G62.89 - Other specified polyneuropathies (2) Chronic obstructive pulmonary disease COPD type: unspecified COPD Qualified Code(s): J44.9 - Chronic obstructive pulmonary disease, unspecified (3) Hypertension Hypertension type: essential hypertension Qualified Code(s): I10 - Essential (primary) hypertension
[2021-01-19] MEDS: ENOXAPARIN INJ 40 MG/0.4 ML SYR SQ SCH ×2 (05:39→18:14)
[2021-01-19] MEDS: POTASSIUM CHLORIDE CRTAB 20 MEQ TABCR PO SCH (09:16)
[2021-01-19] MEDS: GABAPENTIN 300 MG CAP PO SCH ×3 (09:16→20:10)
[2021-01-19] MEDS: MAGNESIUM OXIDE 400 MG TAB PO SCH ×2 (09:16→20:09)
[2021-01-19] MEDS: INSULIN GLARGINE SOLOSTAR 100 UNITS/ML 3 ML PEN SC SCH (09:16)
[2021-01-19] MEDS: INSULIN ASPART 100 UNITS/ML 3 ML PEN SC SCH ×4 (09:17→21:12)
[2021-01-19] MEDS: ACETAMINOPHEN 500 MG TAB PO PRN ×2 (14:21→20:44)
--- NOTE | 2021-01-19 18:28 | Hospitalist Progress Note ---
Date of Service January 19, 2021 Assessment & Plan (1) Partial small bowel obstruction: Plan: resolved was 2nd to large ventral hernia NG tube placed 01/10 NG tube d/c 01/13 by gen surg appreciate their assistance advanced to low fiber, DM diet and doing well with this we suspect that the pSBO contributed to her shock state see below lastly - had been having diarrhea after pSBO resolved; c diff negative (2) Shock: Plan: resolved required pressors for 2+ days in the ICU septic in the setting of right-heart failure? due to 3rd spacing from pSBO? other? combination? either way resolved with nice BPs the last 2-3 days (3) SIRS (systemic inflammatory response syndrome): Plan: resolved 2nd to pSBO (4) ATN (acute tubular necrosis): Plan: 2nd shock - resolved (5) Hyperkalemia: Plan: resolved had been 2nd to EYAD (6) Encephalopathy: Plan: resolved back to baseline; a/o x 3 had reported confusion for 3-4 weeks before admission - suspect due to severe hyperglycemia (BSGs 500+) (7) Chronic respiratory failure with hypoxia: Plan: stable on home O2 amount (8) Diabetes mellitus type 2, uncontrolled: Plan: severely uncontrolled at time of admission with BSGs >700 improved s/p insulin drip now over to basal-bolus SC regimen with good control (9) Uncontrolled type 2 diabetes mellitus with hyperosmolarity, without long- term current use of insulin: Plan: pharmacy following & managing control very satisfactory a1c 15% will need intensive insulin regimen at discharge (10) Hypertension: Plan: BPs still controlled off of her PATTIE inhibitor cont to monitor off meds (11) Chronic obstructive pulmonary disease: Plan: no exacerbation at this time (12) Ventral hernia: Plan: large, with suspected pSBO due to the hernia pSBO resolved not a surgical candidate to fix the hernia - the hernia is massive (13) Peripheral neuropathy: Plan: at baseline b/l legs (14) Chronic right-sided congestive heart failure: Plan: Now resolved, appears euvolemic. No further lasix to be given. Labs suggest contraction alkalosis. acute/chronic right-sided CHF (15) Hypomagnesemia: Plan: 2nd to diarrhea and diuretics (16) Hypokalemia: Plan: Resolved. 2nd to diarrhea and diuretics (17) DVT prophylaxis: Plan: Lovenox 40mg SQ BID Plan: Medically stable for discharge pending placement Admission and Anticipated Discharge Date Admission Date: January 08, 2021 Subjective No acute events overnight. No acute concerns or questions for me today. Review of Systems Review of Systems: All systems reviewed & are unremarkable except as noted in HPI & below Physical Exam Constitutional: + morbidly obese; no acute distress and no altered mental status Respiratory: no respiratory distress Cardiovascular: Rate/Rhythm: regular rate and regular rhythm Vessels: no JVD Extremities: no edema Gastrointestinal (Abdomen): Percussion/Palpation: abdomen soft and + hernia; abdomen nontender Skin: no rashes, warm and dry Neurologic: moves all extremities and awake; not confused Psychiatric: Orientation: alert and oriented x 3 Results & Data Results & Data ([facility]) Vital Signs (Past 12 Hours) Vital Signs Temp Pulse Resp BP Pulse Ox 01/19/21 14:44 36.5 C 71 16 102/67 93 01/19/21 07:57 36.5 C 61 16 116/68 95 PG Care Time/CCT Total # of Minutes Spent Total Time Spent with Patient: Total time spent is greater than 50% in coordination of care (as documented) at patient's floor/unit and/or counseling patient: Coding Level of Care Code 42637 Subseq Hosp Care Lvl 1 Diagnoses Partial small bowel obstruction K56.600 Shock R57.9 SIRS (systemic inflammatory response syndrome) R65.10 ATN (acute tubular necrosis) N17.0 Hyperkalemia E87.5 Encephalopathy G93.40 Chronic respiratory failure with hypoxia J96.11 Diabetes mellitus type 2, uncontrolled E11.65 Uncontrolled type 2 diabetes mellitus with hyperosmolarity, without long-term current use of insulin E11.00 Hypertension I10 Hypertension type: essential hypertension Chronic obstructive pulmonary disease J44.9 COPD type: unspecified COPD Ventral hernia K43.9 Peripheral neuropathy G62.89 Peripheral neuropathy type: polyneuropathy, other Chronic right-sided congestive heart failure I50.812 Hypomagnesemia E83.42 Hypokalemia E87.6 DVT prophylaxis Z29.9 (1) Peripheral neuropathy Peripheral neuropathy type: polyneuropathy, other Qualified Code(s): G62.89 - Other specified polyneuropathies (2) Chronic obstructive pulmonary disease COPD type: unspecified COPD Qualified Code(s): J44.9 - Chronic obstructive pulmonary disease, unspecified (3) Hypertension Hypertension type: essential hypertension Qualified Code(s): I10 - Essential (primary) hypertension
[2021-01-19] MEDS: ASPIRIN 81 MG CHEW PO SCH (20:09)
[2021-01-19] MEDS: ATORVASTATIN 40 MG TAB PO SCH (20:10)
[2021-01-19] MEDS: QUEtiapine FUMARATE 25 MG TABLET PO SCH (20:10)
[2021-01-19] MEDS ORDERED: KETOROLAC TROMETHAMINE 15 MG/ML VIAL IV ONE (23:33)
[2021-01-20] MEDS: ENOXAPARIN INJ 40 MG/0.4 ML SYR SQ SCH ×2 (06:04→17:41)
[2021-01-20] MEDS: INSULIN ASPART 100 UNITS/ML 3 ML PEN SC SCH ×4 (08:54→20:46)
[2021-01-20] MEDS: INSULIN GLARGINE SOLOSTAR 100 UNITS/ML 3 ML PEN SC SCH (08:55)
[2021-01-20] MEDS: POTASSIUM CHLORIDE CRTAB 20 MEQ TABCR PO SCH (08:56)
[2021-01-20] MEDS: MAGNESIUM OXIDE 400 MG TAB PO SCH ×2 (08:56→21:23)
[2021-01-20] MEDS: GABAPENTIN 300 MG CAP PO SCH ×3 (08:56→21:22)
[2021-01-20] MEDS: ACETAMINOPHEN 500 MG TAB PO PRN ×2 (09:14→22:22)
--- NOTE | 2021-01-20 14:20 | Pharmacy Report ---
Pharmacy Glycemic Short Note 2 - Date of Service January 20, 2021 - Glycemic Short BSG Results (Last 24 hours): 01/19/21 01/19/21 01/20/21 17:23 20:53 08:16 POC Glucose 104 H 133 H 149 H 01/20/21 12:07 POC Glucose 137 H OUTPATIENT ANTIDIABETIC REGIMEN: * Januvia 100 mg daily * HBA1C = 15.3% (01/09/21) ASSESSMENT: 01/20: * Pt received total of 54 units of insulin yesterday; 35 units basal and 19 uni ts bolus. * Fasting BSG today was 149 mg/dl, post-prandial BSGs have been well controlled past couple of days on Novolog. * Continued current dose and parameters of basal and bolus insulin. 01/18: * MALENA received 66 units of insulin yesterday, 35 units of basal and 31 units of prandial/correctional bolus * BSGs reasonably well-controlled at 161, 129, 94, and 164 mg/dL * Will plan to transition to once daily basal insulin today to facilitate discharge 01/17: * Patient required 57 units of insulin yesterday, of which 36 units were basal insulin * Fasting BSG 161 mg/dL - plan to continue same basal, will change from BID dosing to once daily dosing tomorrow. Will give PM Lantus at dinner today, then redose again tomorrow AM/lunch time * No change to CF/CR 01/14: * Traci received 8 units of insulin yesterday, all basal * BSGs were well controlled: [id number] mg/dL * Fasting BSG well controlled at 127 mg/dL this AM * Will continue with current basal insulin scale * Patient was ordered a T2DM/Clear Liquid diet this AM - will follow PO intake throughout the day and adjust insulin regimen as necessary 01/13: * BSGs well controlled over last 24 hrs * Transitioned off insulin drip yesterday afternoon * BSGs did fall quickly once norepi infusion titrated off * BSGs have recovered into the low 100s this AM. Currently has 34 units basal on board. Will resume basal at a reduced dosage and split BID. Patient remains NPO * Current Novolog CF/CR are reasonable starting points. 01/12: * Pressor requirement significantly decreasing. Antibiotics discontinued. * OK to transition to basal/bolus per ICU rounds discussion * Drip still running at 2.3 units/hr despite 18 units of Lantus BID yesterday. However, patient still NPO therefore aggressive increase not indicated. Will increase this AM's dose by only 16 units (for a total of 34 units this AM). Additional Lantus tonight based on BSG * Will initiate Novolog at q4h 01/11: * Patient transferred to ICU secondary to hypotension, EYAD and need for pressor support * Patient remains on insulin drip this AM with infusion rates 4-5 units/hr which are currently producing desirable BSGs. * Will continue IV insulin drip relatively high infusion rates, continued norepi provision (currently running 0.12mcg/kg/min) and ongoing NPO status. * Will add "moderate" wt-based dose of Lantus, however, as this will allow for easier drip transition in the future. PLAN FOR INPATIENT GLYCEMIC CONTROL: * Hold outpatient oral diabetes medications * Basal insulin: continued * Lantus 35 units SC daily * Bolus insulin: continued * Novolog ACHS * Goal range: 110-140 mg/dL * Correction factor: 20 mg/dL/unit * Carb ratio: 6 g CHO/unit PLAN FOR DISCHARGE: * HbA1c = 15.3% from this admission. HbA1c is significantly above goal of less than 7%. Patient will require insulin upon discharge. * Per assistant health educator note, patient recently was taken off of metformin and glimepiride due to stable HbA1c * Per external medication fill history, patient was taking metformin 850 mg PO TID * Recommend restarting metformin 500 mg PO daily with largest meal and then continue to titrate metformin dosing upwards as recommended. Dosage increases should be made in increments of ~500 mg weekly * Resume home med Januvia 100 mg daily on discharge. * Patient is currently requiring 35 units of basal insulin per day while admitted. * Recommend starting Lantus at 25 units SC QAM on discharge with dose adjusted per outpatient provider.
--- NOTE | 2021-01-20 17:49 | Hospitalist Progress Note ---
Date of Service January 20, 2021 Assessment & Plan (1) Partial small bowel obstruction: Plan: resolved was 2nd to large ventral hernia NG tube placed 01/10 NG tube d/c 01/13 by gen surg appreciate their assistance advanced to low fiber, DM diet and doing well with this we suspect that the pSBO contributed to her shock state see below lastly - had been having diarrhea after pSBO resolved; c diff negative (2) Shock: Plan: resolved required pressors for 2+ days in the ICU septic in the setting of right-heart failure? due to 3rd spacing from pSBO? other? combination? either way resolved with nice BPs the last 2-3 days (3) SIRS (systemic inflammatory response syndrome): Plan: resolved 2nd to pSBO (4) ATN (acute tubular necrosis): Plan: 2nd shock - resolved (5) Hyperkalemia: Plan: resolved had been 2nd to EYAD (6) Encephalopathy: Plan: resolved back to baseline; a/o x 3 had reported confusion for 3-4 weeks before admission - suspect due to severe hyperglycemia (BSGs 500+) (7) Chronic respiratory failure with hypoxia: Plan: stable on home O2 amount (8) Diabetes mellitus type 2, uncontrolled: Plan: severely uncontrolled at time of admission with BSGs >700 improved s/p insulin drip now over to basal-bolus SC regimen with good control (9) Uncontrolled type 2 diabetes mellitus with hyperosmolarity, without long- term current use of insulin: Plan: pharmacy following & managing control very satisfactory a1c 15% will need intensive insulin regimen at discharge (10) Hypertension: Plan: BPs still controlled off of her PATTIE inhibitor cont to monitor off meds (11) Chronic obstructive pulmonary disease: Plan: no exacerbation at this time (12) Ventral hernia: Plan: large, with suspected pSBO due to the hernia pSBO resolved not a surgical candidate to fix the hernia - the hernia is massive (13) Peripheral neuropathy: Plan: at baseline b/l legs (14) Chronic right-sided congestive heart failure: Plan: Now resolved, appears euvolemic. No further lasix to be given. Labs suggest contraction alkalosis. acute/chronic right-sided CHF (15) Hypomagnesemia: Plan: 2nd to diarrhea and diuretics (16) Hypokalemia: Plan: Resolved. 2nd to diarrhea and diuretics (17) DVT prophylaxis: Plan: Lovenox 40mg SQ BID Plan: Medically stable for discharge pending placement. [facility] rejected, awaiting insurance authorization for SNF for acute rehab. Admission and Anticipated Discharge Date Admission Date: January 08, 2021 Subjective Peer to peer rejected [facility]. Patient willing to consider SNF for rehabilitation. No acute change in fluid status. Eating and drinking well. Review of Systems Review of Systems: All systems reviewed & are unremarkable except as noted in HPI & below Physical Exam Constitutional: + morbidly obese; no acute distress and no altered mental status Respiratory: no respiratory distress Gastrointestinal (Abdomen): Percussion/Palpation: abdomen soft and + hernia; abdomen nontender Skin: no rashes, warm and dry Neurologic: moves all extremities and awake; not confused Psychiatric: Orientation: alert and oriented x 3 Results & Data Results & Data ([facility]) Vital Signs (Past 12 Hours) Vital Signs Temp Pulse Resp BP BP Pulse Ox 01/20/21 16:02 36.7 C 36 L 22 121/69 95 01/20/21 07:51 36.7 C 65 20 96/60 L 93 PG Care Time/CCT Total # of Minutes Spent Total Time Spent with Patient: Total time spent is greater than 50% in coordination of care (as documented) at patient's floor/unit and/or counseling patient: Coding Level of Care Code 04008 Subseq Hosp Care Lvl 1 Diagnoses Partial small bowel obstruction K56.600 Shock R57.9 SIRS (systemic inflammatory response syndrome) R65.10 ATN (acute tubular necrosis) N17.0 Hyperkalemia E87.5 Encephalopathy G93.40 Chronic respiratory failure with hypoxia J96.11 Diabetes mellitus type 2, uncontrolled E11.65 Uncontrolled type 2 diabetes mellitus with hyperosmolarity, without long-term current use of insulin E11.00 Hypertension I10 Hypertension type: essential hypertension Chronic obstructive pulmonary disease J44.9 COPD type: unspecified COPD Ventral hernia K43.9 Peripheral neuropathy G62.89 Peripheral neuropathy type: polyneuropathy, other Chronic right-sided congestive heart failure I50.812 Hypomagnesemia E83.42 Hypokalemia E87.6 DVT prophylaxis Z29.9 (1) Hypertension Hypertension type: essential hypertension Qualified Code(s): I10 - Essential (primary) hypertension (2) Chronic obstructive pulmonary disease COPD type: unspecified COPD Qualified Code(s): J44.9 - Chronic obstructive pulmonary disease, unspecified (3) Peripheral neuropathy Peripheral neuropathy type: polyneuropathy, other Qualified Code(s): G62.89 - Other specified polyneuropathies
[2021-01-20] MEDS: QUEtiapine FUMARATE 25 MG TABLET PO SCH (21:21)
[2021-01-20] MEDS: ATORVASTATIN 40 MG TAB PO SCH (21:22)
[2021-01-20] MEDS: ASPIRIN 81 MG CHEW PO SCH (21:22)
[2021-01-21] MEDS: ENOXAPARIN INJ 40 MG/0.4 ML SYR SQ SCH ×2 (06:30→18:33)
[2021-01-21] MEDS: INSULIN GLARGINE SOLOSTAR 100 UNITS/ML 3 ML PEN SC SCH (08:57)
[2021-01-21] MEDS: INSULIN ASPART 100 UNITS/ML 3 ML PEN SC SCH ×4 (08:57→21:32)
[2021-01-21] MEDS: POTASSIUM CHLORIDE CRTAB 20 MEQ TABCR PO SCH (08:59)
[2021-01-21] MEDS: MAGNESIUM OXIDE 400 MG TAB PO SCH ×2 (08:59→20:14)
[2021-01-21] MEDS: GABAPENTIN 300 MG CAP PO SCH ×3 (08:59→20:18)
[2021-01-21] MEDS: ACETAMINOPHEN 500 MG TAB PO PRN ×2 (10:41→19:53)
[2021-01-21] MEDS: ATORVASTATIN 40 MG TAB PO SCH (20:13)
[2021-01-21] MEDS: ASPIRIN 81 MG CHEW PO SCH (20:14)
[2021-01-21] MEDS: QUEtiapine FUMARATE 25 MG TABLET PO SCH (20:18)
--- NOTE | 2021-01-21 22:58 | Hospitalist Progress Note ---
Date of Service January 21, 2021 Assessment & Plan (1) Partial small bowel obstruction: Plan: resolved was 2nd to large ventral hernia NG tube placed 01/10 NG tube d/c 01/13 by gen surg appreciate their assistance advanced to low fiber, DM diet and doing well with this we suspect that the pSBO contributed to her shock state see below lastly - had been having diarrhea after pSBO resolved; c diff negative (2) Shock: Plan: resolved required pressors for 2+ days in the ICU septic in the setting of right-heart failure? due to 3rd spacing from pSBO? (3) SIRS (systemic inflammatory response syndrome): Plan: resolved 2nd to pSBO (4) ATN (acute tubular necrosis): Plan: 2nd shock - resolved (5) Hyperkalemia: Plan: resolved had been 2nd to EYAD (6) Encephalopathy: Plan: resolved back to baseline; a/o x 3 had reported confusion for 3-4 weeks before admission - suspect due to severe hyperglycemia (BSGs 500+) (7) Chronic respiratory failure with hypoxia: Plan: stable on home O2 amount (8) Diabetes mellitus type 2, uncontrolled: Plan: severely uncontrolled at time of admission with BSGs >700 improved s/p insulin drip now over to basal-bolus SC regimen with good control (9) Uncontrolled type 2 diabetes mellitus with hyperosmolarity, without long- term current use of insulin: Plan: pharmacy following & managing control very satisfactory a1c 15% will need intensive insulin regimen at discharge (10) Hypertension: Plan: BPs still controlled off of her PATTIE inhibitor cont to monitor off meds (11) Chronic obstructive pulmonary disease: Plan: no exacerbation at this time (12) Ventral hernia: Plan: large, with suspected pSBO due to the hernia pSBO resolved not a surgical candidate to fix the hernia - the hernia is massive (13) Peripheral neuropathy: Plan: at baseline b/l legs (14) Chronic right-sided congestive heart failure: Plan: Now resolved, appears euvolemic. No further lasix to be given. Labs suggest contraction alkalosis. acute/chronic right-sided CHF (15) Hypomagnesemia: Plan: 2nd to diarrhea and diuretics (16) Hypokalemia: Plan: Resolved with continued supplementation. 2nd to diarrhea and diuretics (17) DVT prophylaxis: Plan: Lovenox 40mg SQ BID Plan: Medically stable for discharge pending placement. [facility] rejected, awaiting insurance authorization for SNF for acute rehab. Admission and Anticipated Discharge Date Admission Date: January 08, 2021 Subjective No acute issues overnight. No questions or concerns for me today. No worsening shortness of breath despite not on lasix. Review of Systems Review of Systems: All systems reviewed & are unremarkable except as noted in HPI & below Physical Exam Constitutional: + morbidly obese; no acute distress and no altered mental status ENMT: external ear and nose normal, oropharynx normal Respiratory: no respiratory distress Auscultation: lungs clear to auscultation bilaterally Cardiovascular: Rate/Rhythm: regular rate and regular rhythm Heart Sounds: no murmur Vessels: no JVD Extremities: no edema Gastrointestinal (Abdomen): Percussion/Palpation: abdomen soft and + hernia; abdomen nontender Musculoskeletal: Extremities: + extremities dysmorphic (b/l arms) Skin: no rashes, warm and dry Neurologic: moves all extremities and awake; not confused Psychiatric: Orientation: alert and oriented x 3 Results & Data Results & Data ([facility]) Vital Signs (Past 12 Hours) Vital Signs Temp Pulse Resp BP Pulse Ox 01/21/21 15:45 37.3 C 67 22 120/76 93 PG Care Time/CCT Total # of Minutes Spent Total Time Spent with Patient: Total time spent is greater than 50% in coordination of care (as documented) at patient's floor/unit and/or counseling patient: Coding Level of Care Code 32310 Subseq Hosp Care Lvl 1 Diagnoses Partial small bowel obstruction K56.600 Shock R57.9 SIRS (systemic inflammatory response syndrome) R65.10 ATN (acute tubular necrosis) N17.0 Hyperkalemia E87.5 Encephalopathy G93.40 Chronic respiratory failure with hypoxia J96.11 Diabetes mellitus type 2, uncontrolled E11.65 Uncontrolled type 2 diabetes mellitus with hyperosmolarity, without long-term current use of insulin E11.00 Hypertension I10 Hypertension type: essential hypertension Chronic obstructive pulmonary disease J44.9 COPD type: unspecified COPD Ventral hernia K43.9 Peripheral neuropathy G62.89 Peripheral neuropathy type: polyneuropathy, other Chronic right-sided congestive heart failure I50.812 Hypomagnesemia E83.42 Hypokalemia E87.6 DVT prophylaxis Z29.9 (1) Peripheral neuropathy Peripheral neuropathy type: polyneuropathy, other Qualified Code(s): G62.89 - Other specified polyneuropathies (2) Chronic obstructive pulmonary disease COPD type: unspecified COPD Qualified Code(s): J44.9 - Chronic obstructive pulmonary disease, unspecified (3) Hypertension Hypertension type: essential hypertension Qualified Code(s): I10 - Essential (primary) hypertension
[2021-01-22] MEDS: ENOXAPARIN INJ 40 MG/0.4 ML SYR SQ SCH (05:31)
[2021-01-22 06:23] VITALS: PULSE 63; TEMP 98.1; O2SAT 3
[2021-01-22] MEDS: MAGNESIUM OXIDE 400 MG TAB PO SCH (08:55)
[2021-01-22] MEDS: GABAPENTIN 300 MG CAP PO SCH (08:55)
[2021-01-22] MEDS: POTASSIUM CHLORIDE CRTAB 20 MEQ TABCR PO SCH (08:55)
[2021-01-22 09:14] VITALS: BP 125/51
[2021-01-22] MEDS ORDERED: INSULIN GLARGINE SOLOSTAR 100 UNITS/ML 3 ML PEN SC SCH (09:30)
[2021-01-22] MEDS: INSULIN ASPART 100 UNITS/ML 3 ML PEN SC SCH ×2 (09:46→13:17)
[2021-01-22] MEDS: INSULIN GLARGINE SOLOSTAR 100 UNITS/ML 3 ML PEN SC SCH (11:00)
--- NOTE | 2021-01-22 13:40 | Discharge Summary ---
Date of Service January 22, 2021 Admission HPI Per Admitting Provider Traci Roman is a 70yo female with history of COPD on home O2, DM, HTN, HLP presenting with hyperglycemia. Patient was seen by her PCP yesterday for routine followup and bloodwork was ordered. She was notified today that her blood sugar was >700 and was instructed to come to the ER. Patient does not check her blood sugar at home. She reports compliance with her Januvia. Yesterday she was having difficulty with ambulation secondary to pain in her hips and legs requiring help with ambulation. Otherwise she denies fever/chills/CP/palpitations/abdominal pain/nausea/vomiting/diarrhea/constipation/dysuria/weight gain/edema or orthopnea. No additional complaints at this time. Patient lives at home and is taken are of by her . Hypoxic on arrival to 87% on room air. Patient is on 2L of O2 by NC at baseline and has had acceptable SpO2 on her baseline 2L. Presently 94% ER Course: Lasix 40mg IV, Morphine, Zofran, NSS, Insulin 10u SQ Admission Exam Per Admitting Provider General: patient resting comfortably, NAD, non-toxic in appearance, AA&O x 4 Skin: warm, dry, intact, abdominal scar HEENT: NC/AT, PERRL, EOMI, anicteric sclera, conjunctiva without injection, external ear normal to inspection and nontender, nares patent, moist mucus membranes, dentition intact, no oropharyngeal lesions, neck supple, trachea mi dline, no LAD, no thyromegaly, no JVD Heart: +S1/S2, regular, +S3 appreciated Lungs: equal air entry bilaterally, no rales/rhonchi/wheezes Abd: +BS, soft, hernias present, soft, NT Ext: warm, 2+ pulses in UE/LE bilaterally, no clubbing/cyanosis or edema, deformity of bilateral shoulders Neuro: nonfocal, patient AA&O x 4, speech intact, no facial droop, moving all extremities on command with equal strength 5/5 Principal Diagnosis Partial small bowel obstruction Hypovolemic shock Acute kidney injury Uncontrolled type 2 diabetes mellitus - HbA1C 15.3 Discharge Exam Constitutional + morbidly obese; no acute distress and no altered mental status ENMT external ear and nose normal, oropharynx normal Respiratory no respiratory distress Auscultation: lungs clear to auscultation bilaterally Cardiovascular Rate/Rhythm: regular rate and regular rhythm Heart Sounds: no murmur Vessels: no JVD Extremities: no edema Gastrointestinal (Abdomen) Percussion/Palpation: abdomen soft and + hernia; abdomen nontender Musculoskeletal Extremities: + extremities dysmorphic (b/l arms) Skin no rashes, warm and dry Neurologic moves all extremities and awake; not confused Psychiatric Orientation: alert and oriented x 3 Discharge Data Allergies Allergy/AdvReac Type Severity Reaction Status Date / Time latex Allergy Severe 2ND DEGREE Verified 01/08/21 20:06 BURN FROM BANDAGE adhesive Allergy Intermediate RASH Verified 01/08/21 20:06 Consultations 01/08/21 21:04 ED Decision to Admit Stat 01/10/21 16:16 Consult Special Distribution Clerk Routine 01/13/21 13:44 Consult General Surgery Routine Ordered Studies 01/10/21 09:45 CT abd pelvis wo con Urgent IMPRESSION: 1. Large ventral abdominal wall hernia containing the majority of the large and small bowel, stomach and portions of the liver, pancreas and right kidney redemonstrated. 2. There are a few mildly dilated fluid-filled loops of small bowel within the hernia sac with equivocal wall thickening. Findings may be secondary to enteritis or low-grade small bowel obstruction. Follow-up recommended. 3. No high-grade bowel obstruction or pneumoperitoneum. 4. Additional findings as above. Diabetes Follow up Diabetes Follow-up Needed for HgbA1c >9% Hospital Course (1) Partial small bowel obstruction: (2) Shock: (3) SIRS (systemic inflammatory response syndrome): (4) ATN (acute tubular necrosis): (5) Hyperkalemia: (6) Encephalopathy: (7) Chronic respiratory failure with hypoxia: (8) Diabetes mellitus type 2, uncontrolled: (9) Uncontrolled type 2 diabetes mellitus with hyperosmolarity, without long- term current use of insulin: (10) Hypertension: (11) Chronic obstructive pulmonary disease: (12) Ventral hernia: (13) Peripheral neuropathy: (14) Chronic right-sided congestive heart failure: (15) Hypomagnesemia: (16) Hypokalemia: (17) DVT prophylaxis: Traci Short is a 70 year old female admitted to [facility] from January 08 to 2020 due to low back pain and hyperglycemia. Initially diagnosed with hyperglycemia due to uncontrolled diabetes but subsequently after going into hypovolemic shock on 01/10 she was diagnosed with partial small bowel obstruction. Blood cultures were negative. Partial small bowel obstruction was conservatively managed with bowel rest, antibiotics for possible enteritis and NG tube. Shock required ICU admission with vasopressors. She slowly improved with these measures, requiring Lasix due to IV fluids given earlier in the admission. She has now have been stable for a number of days but requiring further inpatient physical therapy to get her strength back. Regarding her diabetes (HbA1C 15.3) she was restarted on metformin at 500mg PO daily and up titrating weekly as able. Continue on Januvia. Add Lantus 25 units SQ QAM. For hypokalemia and hypomagnesemia she should continue on supplementation as prescribed and repeat BMP and Mg in 1 week. Total Time Total Time Spent Total Time Spent (In Minutes): 50 Discharge Plan Discharge Items Patient Disposition: Transfer Inpatient Rehab Fac Reason For Visit: HYPERGLYCEMIA Discharge Diagnosis: Partial small bowel obstruction Hypovolemic shock Acute kidney injury Uncontrolled type 2 diabetes mellitus - HbA1C 15.3 Activity: Resume your previous activity Non-emergency contact: Primary Care Provider Call non-emergency contact if: you have any medication questions and your symptoms worsen Follow-up/Referrals: Kristal Pham CRNP [Primary Care Provider] - Diet: Carb Consistent or DM2, Low Fiber and Low Sodium (2gm) Addtl Attending Provider Instructions: Traci Short is a 70 year old female admitted to [facility] from January 08 to 2020 due to low back pain, elevated glucose levels. Initially diagnosed with hyperglycemia due to uncontrolled diabetes but subsequently after going into hypovolemic shock on 01/10 you were diagnosed with partial small bowel obstruction. Blood cultures are negative. Partial small bowel obstruction was conservatively managed with bowel rest, antibiotics for possible enteritis and NG tube. Shock required ICU admission with vasopressors. You slowly improved with these measures, requiring Lasix due to IV fluids given earlier in the admission. You have now have been stable for a number of days but requiring further inpatient physical therapy to get your strength back. For your diabetes (HbA1C 15.3) recommend restarting on metformin at 500mg PO daily and up titrating weekly as able. Continue on Januvia. Add Lantus 25 units SQ QAM. Please follow up closely For hypokalemia and hypomagnesemia please continue on supplementation as prescribed and repeat BMP and Mg in 1 week. Pending Studies at Discharge: No Stand-Alone Forms: My [facility] Skilled Items Patient informed of condition?: Yes DNR: No Discharge Level of Care: Acute rehab Communicable Disease: No Discharge Prognosis: Improving Lines: None Urinary Catheter: No Medications and DC Order Prescriptions: New potassium chloride [Klor-Con M20] 20 mEq Tablet,Er Particles/Crystals 40 meq PO DAILY Qty: 60 RF: 0 magnesium oxide 400 mg (241.3 mg magnesium) Tablet 400 mg PO BID Qty: 60 RF: 0 Lantus Solostar U-100 Insulin 100 unit/mL (3 mL) Insulin Pen 25 unit SC QAM Qty: 15 RF: 0 metformin 500 mg tablet 500 mg PO DAILY Qty: 30 RF: 0 Continued quetiapine [Seroquel] 50 mg tablet 50 mg PO HS RF: 0 atorvastatin [Lipitor] 80 mg Tablet 80 mg PO HS RF: 0 aspirin [Aspirin Low Dose] 81 mg Tablet,Delayed Release (Dr/Ec) 81 mg PO QPM RF: 0 cholecalciferol (vitamin D3) [Vitamin D3] 2,000 unit Capsule 2,000 unit PO QAM RF: 0 gabapentin 300 mg Capsule 300 mg PO TID RF: 0 cyanocobalamin (vitamin B-12) 1,000 mcg/mL Solution 1,000 mcg IM MONTHLY RF: 0 Januvia 100 mg tablet 100 mg PO QPM RF: 0 Discontinued lisinopril 20 mg tablet 20 mg PO QPM RF: 0 Discharge Orders: Discharge Order (Routine); Ordered 01/22/21 Ordered By: Silvestre Jefferson/Other Patient Handouts: Healthy Meals for Diabetes Admission Data Admit Date/Time: 01/08/21 22:33 Attending Provider: Silvestre Wynn Admit Provider: Syl Gold Primary Care Provider: Kristal Pham Other Providers: Syl Gold ; Tawanda Dang ; Isacc Amaral ; [facility] ; [place],[facility] ; [facility] Other Interventions: Discharge Summary Assessment (RN) Last Done: 01/22/21 09:10 Coding Level of Care Code D/C DAY MANAGEMENT >30 MINS Diagnoses Partial small bowel obstruction K56.600 Shock R57.9 SIRS (systemic inflammatory response syndrome) R65.10 ATN (acute tubular necrosis) N17.0 Hyperkalemia E87.5 Encephalopathy G93.40 Chronic respiratory failure with hypoxia J96.11 Diabetes mellitus type 2, uncontrolled E11.65 Uncontrolled type 2 diabetes mellitus with hyperosmolarity, without long-term current use of insulin E11.00 Hypertension I10 Hypertension type: essential hypertension Chronic obstructive pulmonary disease J44.9 COPD type: unspecified COPD Ventral hernia K43.9 Peripheral neuropathy G62.89 Peripheral neuropathy type: polyneuropathy, other Chronic right-sided congestive heart failure I50.812 Hypomagnesemia E83.42 Hypokalemia E87.6 DVT prophylaxis Z29.9
== END 2021-01-22 13:49 | DRG 637 ==
LOC: ED 18:47 → 2N 22:33 → SUATTDRO 22:33 → 2N 01-09 00:16 → 1E 01-10 13:23 → 3W 01-13 10:06

== ENCOUNTER 2021-02-14 02:21 | Inpatient (IN) ==
[2021-02-14] MEDS ORDERED: SODIUM CHLORIDE 0.9% 1000ML 1,000 ML IV SCH ×2 (03:00→06:00)
[2021-02-14 03:30] LABS: Basophils # (auto) 0.03 K/uL (0-0.2); Basophils % (auto) 0.2 %; Hematocrit (blood only) 32.6 % (37-47); Hemoglobin 10.9 g/dL (12.0-16.0); Immature Granulocytes # (auto) 0.06 K/uL (0.00-0.02); Immature Granulocytes % (auto) 0.3 %; Lymphocytes # (auto) 0.71 K/uL (1.2-3.4); Mean Corpuscular Hemoglobin 32.3 pg (25-34); Mean Corpuscular Hgb Conc 33.4 g/dL (32-36); Mean Corpuscular Volume 96.7 fL (80-100); Mean Platelet Volume 8.8 fL (7.4-10.4); Monocytes # (auto) 1.69 K/uL (0.11-0.59); Monocytes % (auto) 9.5 %; Neutrophils # (auto) 15.33 K/uL (1.4-6.5); Platelet Count 349 K/uL (130-400); RDW Coefficient of Variation 15.4 % (11.5-14.5); RDW Standard Deviation 54.6 fL (36.4-46.3); Red Blood Count 3.37 M/uL (4.2-5.4); White Blood Count 17.82 K/uL (4.8-10.8)
[2021-02-14 03:47] LABS: Alanine Aminotransferase 19 U/L (12-78); Albumin Level 2.6 gm/dl (3.4-5.0); BUN Creatinine Ratio 23.6 (10-20); Blood Urea Nitrogen 28 mg/dl (7-18); Calcium 8.2 mg/dl (8.5-10.1); Carbon Dioxide 23 mmol/L (21-32); Chloride 93 mmol/L (98-107); Creatinine Clr Calc Pharmacy 52.3 ml/min; Est GFR (African American) 54.5 ml/min; Glucose 214 mg/dl (70-99); Magnesium 2.1 mg/dl (1.8-2.4); Potassium 4.4 mmol/L (3.5-5.1); Sodium 125 mmol/L (136-145)
[2021-02-14 03:52] LABS: Albumin Globulin Ratio 0.6 (0.9-2); Alkaline Phosphatase 135 U/L (45-117); Aspartate Aminotransferase 23 U/L (15-37); Bilirubin,Total 0.8 mg/dl (0.2-1); Globulin 4.5 gm/dl (2.5-4.0); Total Protein 7.1 gm/dl (6.4-8.2); Troponin I < 0.015 ng/ml (0-0.045)
--- NOTE | 2021-02-14 04:00 | Emergency Department Note ---
History of Present Illness General Chief complaint: Fall Stated complaint: FALL/ALTERED MENTAL STATUS Time Seen by Provider: 02/14/21 02:28 Source: patient Mode of arrival: ambulatory Limitations: no limitations History of Present Illness Provider complaint: falls, weakness Onset (ago): unknown Associated symptoms: + malaise and + weakness; no fever/chills, no nausea/vomiting or no shortness of breath Treatments prior to arrival: none This is a 70-year-old female who arrives via EMS due to concern for increasing weakness and recent falls. On arrival patient was awake, alert, oriented, however did not fully understand why EMS was contacted to bring her here. Patient found to be hypotensive, tachycardic, and febrile. Patient states she does wear chronic oxygen, however on her usual oxygen she was still found to be mildly hypoxic so this was increased by nursing staff. Patient states she did fall recently. She does not suspect that she was injured and has no complaints of pain. Patient states she is just been more tired recently and felt more fatigued. She states she does not have a normal appetite and suspects that she has not been staying well-hydrated. She denies vomiting, diarrhea, difficulty urinating, abdominal pain, chest pain. Patient states no change in her chronic cough related to her underlying COPD. She denies palpitations. Patient does deny that she feels more short of breath. Patient states she was recently hospitalized last month, she did go to rehab, and then went home. She states she is been home about 2 weeks. Pt seen during a time of high acuity and national emergency pandemic while weari ng PPE. Home Medications Medication Instructions Recorded Confirmed Type aspirin 81 mg tablet,delayed 81 mg PO QPM 10/30/18 02/14/21 History release (Aspirin Low Dose) atorvastatin 80 mg tablet (Lipitor) 80 mg PO HS 10/30/18 02/14/21 History cholecalciferol (vitamin D3) 50 2,000 unit PO QAM 10/30/18 02/14/21 History mcg (2,000 unit) capsule (Vitamin D3) gabapentin 300 mg capsule 300 mg PO TID 10/30/18 02/14/21 History quetiapine 50 mg tablet (Seroquel) 50 mg PO HS 12/01/19 02/14/21 History cyanocobalamin (vitamin B-12) 1,000 mcg IM MONTHLY 01/08/21 02/14/21 History 1,000 mcg/mL injection solution sitagliptin 100 mg tablet (Januvia) 100 mg PO QPM 01/08/21 02/14/21 History insulin glargine 100 unit/mL (3 25 unit SC QAM #15 ml 01/22/21 02/14/21 Rx mL) subcutaneous pen (Lantus Solostar U-100 Insulin) metformin 500 mg tablet 500 mg PO DAILY #30 tab 01/22/21 02/14/21 Rx lisinopril 20 mg tablet 20 mg PO DAILY 02/14/21 02/14/21 History Allergies Allergy/AdvReac Type Severity Reaction Status Date / Time latex Allergy Severe 2ND DEGREE Verified 02/14/21 02:51 BURN FROM BANDAGE adhesive Allergy Intermediate RASH Verified 02/14/21 02:51 Past Med/Surg History Medical History Anxiety Chronic obstructive pulmonary disease Depression Diabetes mellitus, type 2 NIDDM Glaucoma WELL CONTROLLED H/O defect LEFT ARM Hyperlipidemia Hypertension Peripheral neuropathy BILATERAL FEET Temporomandibular joint disorder NO PROBLEMS RECENTLY. Surgical History History of appendectomy History of cholecystectomy History of colonoscopy History of incision and drainage UMBILICAL ABSCESS History of total shoulder replacement RIGHT Hx of umbilical hernia repair X4 -- WEARS SUPPORT BAND DAILY S/P JALIL-BSO S/P tonsillectomy and adenoidectomy Family History Mother Diabetes mellitus, type 2 Aunt Diabetes mellitus, type 2 Social History Smoking Status: Former smoker Tobacco Type: Cigarettes Cigarettes Per Day: 2 PPD X 50 YEARS AGO; Second Hand Exposure: Yes; Do You Dip or Chew Tobacco: No; Hx Alcohol Use: No Hx Substance Use: No Preferred Language: Zambian Communication Ability: Effective Manager Recruiting Required: No Beliefs That Will Affect Care: None marital status: Current Living Situation: Spouse current occupational status: retired Other Information That Helps Us Care for You: No Feels Safe at Home: Yes Safety Concerns: Feels Safe At This Time Assistive Devices: Oxygen - at Night, Walker and Wheelchair Review of Systems A total of 10 systems reviewed and were otherwise negative All systems reviewed & are unremarkable except as noted in HPI & below Physical Exam Vital Signs Vital Signs - 24 hr 02/14/21 02:33 02/14/21 02:34 02/14/21 03:03 Temperature 38.2 C H Temperature Source Oral Pulse Rate 113 H 94 H 102 H Pulse Rate from SpO2 Sensor Respiratory Rate 22 33 H 30 H Respiratory Effort / Characteristics Non-Labored Spontaneous Respiratory Depth Normal Respiratory Pattern Regular Blood Pressure 65/50 L 86/59 L 74/57 L Blood Pressure Mean 55 68 62 Blood Pressure Position Lying Pulse Oximetry 92 92 Oxygen Delivery Method Nasal Cannula Oxygen Flow Rate 4 Sepsis Recent Fever Within 48 Hours Yes Sepsis New/Unexplained Change in Mental Status Yes Sepsis Action Taken by Nursing Physician Notified 02/14/21 03:19 02/14/21 03:30 02/14/21 03:45 Temperature Temperature Source Pulse Rate 110 H 95 H Pulse Rate from SpO2 Sensor 103 H 95 H Respiratory Rate 22 35 H 26 H Respiratory Effort / Characteristics Non-Labored Spontaneous Respiratory Depth Respiratory Pattern Blood Pressure 72/50 L 88/48 L Blood Pressure Mean 57 61 Blood Pressure Position Pulse Oximetry 92 91 88 L Oxygen Delivery Method Nasal Cannula Oxygen Flow Rate 4 5 Sepsis Recent Fever Within 48 Hours Sepsis New/Unexplained Change in Mental Status Sepsis Action Taken by Nursing 02/14/21 04:00 02/14/21 04:15 02/14/21 04:30 Temperature Temperature Source Pulse Rate 88 83 80 Pulse Rate from SpO2 Sensor 90 84 84 Respiratory Rate 26 H 25 H 24 Respiratory Effort / Characteristics Respiratory Depth Respiratory Pattern Blood Pressure 79/57 L 89/49 L 92/48 L Blood Pressure Mean 64 62 62 Blood Pressure Position Pulse Oximetry 90 91 93 Oxygen Delivery Method Oxygen Flow Rate 7 7 7 Sepsis Recent Fever Within 48 Hours Sepsis New/Unexplained Change in Mental Status Sepsis Action Taken by Nursing 02/14/21 04:45 02/14/21 05:06 02/14/21 05:15 Temperature Temperature Source Pulse Rate 81 107 H Pulse Rate from SpO2 Sensor 85 100 H Respiratory Rate 29 H 27 H Respiratory Effort / Characteristics Respiratory Depth Respiratory Pattern Blood Pressure 92/53 L 73/52 L Blood Pressure Mean 66 59 Blood Pressure Position Pulse Oximetry 95 92 Oxygen Delivery Method Oxymask Oxymask Oxygen Flow Rate 6 6 Sepsis Recent Fever Within 48 Hours Sepsis New/Unexplained Change in Mental Status Sepsis Action Taken by Nursing 02/14/21 05:30 02/14/21 05:45 02/14/21 06:00 Temperature Temperature Source Pulse Rate 76 94 H 77 Pulse Rate from SpO2 Sensor 78 92 H 78 Respiratory Rate 20 21 21 Respiratory Effort / Characteristics Respiratory Depth Respiratory Pattern Blood Pressure 98/58 L 104/60 93/57 L Blood Pressure Mean 71 74 69 Blood Pressure Position Pulse Oximetry 92 98 98 Oxygen Delivery Method Oxymask Oxymask Oxygen Flow Rate 7 6 6 Sepsis Recent Fever Within 48 Hours Sepsis New/Unexplained Change in Mental Status Sepsis Action Taken by Nursing 02/14/21 06:16 Temperature 36.8 C Temperature Source Oral Pulse Rate Pulse Rate from SpO2 Sensor Respiratory Rate Respiratory Effort / Characteristics Respiratory Depth Respiratory Pattern Blood Pressure Blood Pressure Mean Blood Pressure Position Pulse Oximetry Oxygen Delivery Method Oxygen Flow Rate Sepsis Recent Fever Within 48 Hours Sepsis New/Unexplained Change in Mental Status Sepsis Action Taken by Nursing GENERAL: alert, ill appearing, well nourished, no distress, BMI>35, patient hypotensive, tachycardic HEAD/FACE: Right periorbital ecchymosis noted, patient denies bony tenderness with palpation, no mitchell signs, no raccoon eyes, nc/at EYE EXAM: normal conjunctiva, PERRL and EOM's grossly intact OROPHARYNX: no exudate, no erythema, lips, buccal mucosa, and tongue normal and mucous membranes are moist NECK: supple, no nuchal rigidity, no adenopathy, non-tender LUNGS: Clear to auscultation. Normal chest wall mechanics, no w/r/r HEART: no murmurs, S1 normal and S2 normal ABDOMEN: abdomen soft, non-tender, normo-active bowel sounds, no masses, no rebound or guarding. PELVIS: Stable to compression, nontender with palpation BACK: Back is symmetrical on inspection and there is no deformity, no midline tenderness, no CVA tenderness. SKIN: no rashes and no bruising UPPER EXTREMITIES: nml pulses b/l. 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 Sensation intact. Right upper extremity with well-healed scar over the anterior right shoulder consistent with prior surgery as well as obvious deformity noted to the proximal humerus. Sensation intact bilaterally. LOWER EXTREMITIES: No pitting edema. FROM, nml pulses b/l. NEURO EXAM: Normal sensorium, cranial nerves II-XII grossly intact, normal speech, no facial droop. Gross sensation intact. Course Course 0250: Pt still hypotensive. IV team at bedside. 0325: No additional line at this time. Pt still hypotensive. I attempted to contact the via the number that he gave, . There was no answer on 2 occasions, did leave voicemail. 0335: No additional IV access obvious on my bedside ultrasound exam of the left upper extremity. BP improving. 0350: Extensive bedside conversation with the patient regarding my concern for her current condition. Patient is refusing any additional IV starts at this time. I discussed with her attempts at additional peripheral lines such as in her left upper extremity or an EJ as well as central lines and even IO access. Patient is refusing. Did discuss with her my concern that should her condition continue to worsen, she may become unresponsive and even . She states she understands this. We talked about treatment options should that happen. Patient states she does not want to be intubated, but is okay with CPR, defibrillation, and medications. 0400: Discussed with her daughter, Raisa Knapp. She states she is her mother' s POA. She states that she would want everything done for her until such time as a decision could be made especially if she could not return to her typical quality of life. 0445: Patient still arouses easily, answers all questions of orientation appropriately. Continues to refuse additional IV starts. Blood pressure improved on Levophed. We will increase in order to achieve a map of [address] 0508: Discussed with Dr. Gold. 0525: Patient seen at bedside by Dr. Gold. Administered Medications Norepinephrine Bitartrate (Levophed/D5w) 8 mg in 508 mls @ 19.45 mls/hr IV .Q24H [facility]; Protocol Stop: 03/16/21 04:29 Last Titration: 02/14/21 04:43 Dose: 0.1 mcg/kg/min, 38.9 mls/hr Documented by: [id number] Admin: 02/14/21 04:23 Dose: 0.05 mcg/kg/min, 19.5 mls/hr Documented by: [id number] Cosigned by: [id number] Discontinued Medications Sodium Chloride (Nss 1000ml) 1,000 mls @ 999 mls/hr IV .Q1H1M SAAD Stop: 02/14/21 04:00 Last Infusion: 02/14/21 04:10 Dose: 0 mls/hr Documented by: [id number] Admin: 02/14/21 03:10 Dose: 999 mls/hr Documented by: [id number] Cefepime HCl (Maxipime) 2,000 mg in 20 mls @ 5 mls/min IV NOW STA; Protocol Stop: 02/14/21 04:05 Last Admin: 02/14/21 04:23 Dose: 5 mls/min Documented by: [id number] Sodium Chloride (Nss 1000ml) 1,000 mls @ 999 mls/hr IV .Q1H1M ONE Stop: 02/14/21 05:02 Last Infusion: 02/14/21 05:56 Dose: 0 mls/hr Documented by: [id number] Admin: 02/14/21 04:10 Dose: 999 mls/hr Documented by: [id number] Acetaminophen (Ofirmev) 1,000 mg in 100 mls @ 400 mls/hr IV NOW STA Stop: 02/14/21 04:16 Last Infusion: 02/14/21 04:40 Dose: 0 mls/hr Documented by: [id number] Admin: 02/14/21 04:23 Dose: 400 mls/hr Documented by: [id number] Sodium Chloride (Nss 1000ml) 1,000 mls @ 999 mls/hr IV .Q1H1M ONE Stop: 02/14/21 05:39 Last Admin: 02/14/21 04:41 Dose: 999 mls/hr Documented by: [id number] Miscellaneous (Stat Iv Infusion Titration Per Protocol) 1 ea N/A NOW STA Stop: 02/14/21 04:18 Last Admin: 02/14/21 04:24 Dose: Not Given Documented by: [id number] Critical Care Time Critical Care Time: Yes Total Critical Care Time: 65 Critical care of 65 min performed to assess and manage high likelihood of life- threatening hypotension, involving labs and imaging performed with assessment to evaluate septic shock diagnosis with frequent reassessment. This time includes bedside time, treatment discussions with patient/family/consultants, documentation time and excludes procedure time. Medical Decision Making Differential Diagnosis Differential Diagnosis includes but is not limited to dehydration, stroke, anemia, hypoglycemia, hyponatremia, hypernatremia, urinary tract infection, pneumonia, bronchitis, sepsis, gastroenteritis, additional abdominal pathology, metabolic abnormalities and infections. Medical Records Attestation: I reviewed the patient's medical records. Home Medications Current Medication List: was personally reviewed by me Laboratory Data Attestation: I reviewed the patient's lab results. Result diagrams: 02/14/21 03:12 02/14/21 03:12 Lab Results 02/14/21 02/14/21 02/14/21 Range/Units 03:12 03:12 03:12 WBC 17.82 H (4.8-10.8) K/uL RBC 3.37 L (4.2-5.4) M/uL Hgb 10.9 L (12.0-16.0) g/dL Hct 32.6 L (37-47) % MCV 96.7 (80-100) fL MCH 32.3 (25-34) pg MCHC 33.4 (32-36) g/dL RDW Std Deviation 54.6 H (36.4-46.3) fL RDW Coeff of Vikas 15.4 H (11.5-14.5) % Plt Count 349 (130-400) K/uL MPV 8.8 (7.4-10.4) fL Immature Gran % (Auto) 0.3 % Neut % (Auto) 86.0 % Lymph % (Auto) 4.0 % [place] % (Auto) 9.5 % Eos % (Auto) 0.0 % Baso % (Auto) 0.2 % Neut # (Auto) 15.33 H (1.4-6.5) K/uL Lymph # (Auto) 0.71 L (1.2-3.4) K/uL [place] # (Auto) 1.69 H (0.11-0.59) K/uL Eos # (Auto) 0.00 (0-0.5) K/uL Baso # (Auto) 0.03 (0-0.2) K/uL Immature Gran # (Auto) 0.06 H (0.00-0.02) K/uL ABG pH (7.35-7.45) ABG pCO2 (35-46) mmHg ABG pO2 (80-95) mmHg ABG HCO3 (19-24) mmol/L ABG O2 Saturation (90-95) % ABG Base Excess (-9-1.8) mEq/L Zach Test (Pos) Oxygen Given Sodium 125 L (136-145) mmol/L Potassium 4.4 (3.5-5.1) mmol/L Chloride 93 L (98-107) mmol/L Carbon Dioxide 23 (21-32) mmol/L Anion Gap 9.0 (3-11) BUN 28 H (7-18) mg/dl Creatinine 1.18 (0.6-1.2) mg/dl Est Cr Clr Drug Dosing 52.3 ml/min Est GFR ( Amer) 54.5 ml/min Est GFR (Non-Af Amer) 47.0 ml/min BUN/Creatinine Ratio 23.6 H (10-20) Glucose 214 H (70-99) mg/dl Lactate 2.3 H* (0.4-2.0) mmol/L Calcium 8.2 L (8.5-10.1) mg/dl Magnesium 2.1 (1.8-2.4) mg/dl Total Bilirubin 0.8 (0.2-1) mg/dl AST 23 (15-37) U/L ALT 19 (12-78) U/L Alkaline Phosphatase 135 H (45-117) U/L Troponin I < 0.015 (0-0.045) ng/ml Total Protein 7.1 (6.4-8.2) gm/dl Albumin 2.6 L (3.4-5.0) gm/dl Globulin 4.5 H (2.5-4.0) gm/dl Albumin/Globulin Ratio 0.6 L (0.9-2) Procalcitonin (0-0.5) ng/ml Urine Color Urine Appearance (Clear) Urine pH (4.5-7.5) Ur Specific [place] (1.000-1.030) Urine Protein (Negative) Urine Glucose (UA) (Negative) Urine Ketones (Negative) Urine Blood (Negative) Urine Nitrite (Negative) Urine Bilirubin (Negative) Urine Urobilinogen (Negative) Ur Leukocyte Esterase (Negative) Urine WBC (Auto) (0-5) /hpf Urine RBC (Auto) (0-4) /hpf U Hyaline Cast (Auto) (0-5) /lpf U Epithel Cells (Auto) (0-5) /lpf Urine Bacteria (Auto) (Negative) Granular Casts (0) /lpf COVID-19 Eval Order SARS-CoV-2 (PCR) (Negative) 02/14/21 02/14/21 02/14/21 Range/Units 03:12 03:37 03:37 WBC (4.8-10.8) K/uL RBC (4.2-5.4) M/uL Hgb (12.0-16.0) g/dL Hct (37-47) % MCV (80-100) fL MCH (25-34) pg MCHC (32-36) g/dL RDW Std Deviation (36.4-46.3) fL RDW Coeff of Vikas (11.5-14.5) % Plt Count (130-400) K/uL MPV (7.4-10.4) fL Immature Gran % (Auto) % Neut % (Auto) % Lymph % (Auto) % [place] % (Auto) % Eos % (Auto) % Baso % (Auto) % Neut # (Auto) (1.4-6.5) K/uL Lymph # (Auto) (1.2-3.4) K/uL [place] # (Auto) (0.11-0.59) K/uL Eos # (Auto) (0-0.5) K/uL Baso # (Auto) (0-0.2) K/uL Immature Gran # (Auto) (0.00-0.02) K/uL ABG pH (7.35-7.45) ABG pCO2 (35-46) mmHg ABG pO2 (80-95) mmHg ABG HCO3 (19-24) mmol/L ABG O2 Saturation (90-95) % ABG Base Excess (-9-1.8) mEq/L Zach Test (Pos) Oxygen Given Sodium (136-145) mmol/L Potassium (3.5-5.1) mmol/L Chloride (98-107) mmol/L Carbon Dioxide (21-32) mmol/L Anion Gap (3-11) BUN (7-18) mg/dl Creatinine (0.6-1.2) mg/dl Est Cr Clr Drug Dosing ml/min Est GFR ( Amer) ml/min Est GFR (Non-Af Amer) ml/min BUN/Creatinine Ratio (10-20) Glucose (70-99) mg/dl Lactate (0.4-2.0) mmol/L Calcium (8.5-10.1) mg/dl Magnesium (1.8-2.4) mg/dl Total Bilirubin (0.2-1) mg/dl AST (15-37) U/L ALT (12-78) U/L Alkaline Phosphatase (45-117) U/L Troponin I (0-0.045) ng/ml Total Protein (6.4-8.2) gm/dl Albumin (3.4-5.0) gm/dl Globulin (2.5-4.0) gm/dl Albumin/Globulin Ratio (0.9-2) Procalcitonin 4.04 H (0-0.5) ng/ml Urine Color Urine Appearance (Clear) Urine pH (4.5-7.5) Ur Specific [place] (1.000-1.030) Urine Protein (Negative) Urine Glucose (UA) (Negative) Urine Ketones (Negative) Urine Blood (Negative) Urine Nitrite (Negative) Urine Bilirubin (Negative) Urine Urobilinogen (Negative) Ur Leukocyte Esterase (Negative) Urine WBC (Auto) (0-5) /hpf Urine RBC (Auto) (0-4) /hpf U Hyaline Cast (Auto) (0-5) /lpf U Epithel Cells (Auto) (0-5) /lpf Urine Bacteria (Auto) (Negative) Granular Casts (0) /lpf COVID-19 Eval Order Covid19 at [facility] SARS-CoV-2 (PCR) NEGATIVE (Negative) 02/14/21 02/14/21 02/14/21 Range/Units 05:20 05:30 05:30 WBC (4.8-10.8) K/uL RBC (4.2-5.4) M/uL Hgb (12.0-16.0) g/dL Hct (37-47) % MCV (80-100) fL MCH (25-34) pg MCHC (32-36) g/dL RDW Std Deviation (36.4-46.3) fL RDW Coeff of Vikas (11.5-14.5) % Plt Count (130-400) K/uL MPV (7.4-10.4) fL Immature Gran % (Auto) % Neut % (Auto) % Lymph % (Auto) % [place] % (Auto) % Eos % (Auto) % Baso % (Auto) % Neut # (Auto) (1.4-6.5) K/uL Lymph # (Auto) (1.2-3.4) K/uL [place] # (Auto) (0.11-0.59) K/uL Eos # (Auto) (0-0.5) K/uL Baso # (Auto) (0-0.2) K/uL Immature Gran # (Auto) (0.00-0.02) K/uL ABG pH 7.41 (7.35-7.45) ABG pCO2 33 L (35-46) mmHg ABG pO2 89 (80-95) mmHg ABG HCO3 21 (19-24) mmol/L ABG O2 Saturation 96.0 H (90-95) % ABG Base Excess -3.5 (-9-1.8) mEq/L Zach Test Pos (Pos) Oxygen Given 6L Sodium (136-145) mmol/L Potassium (3.5-5.1) mmol/L Chloride (98-107) mmol/L Carbon Dioxide (21-32) mmol/L Anion Gap (3-11) BUN (7-18) mg/dl Creatinine (0.6-1.2) mg/dl Est Cr Clr Drug Dosing ml/min Est GFR ( Amer) ml/min Est GFR (Non-Af Amer) ml/min BUN/Creatinine Ratio (10-20) Glucose (70-99) mg/dl Lactate 1.0 (0.4-2.0) mmol/L Calcium (8.5-10.1) mg/dl Magnesium (1.8-2.4) mg/dl Total Bilirubin (0.2-1) mg/dl AST (15-37) U/L ALT (12-78) U/L Alkaline Phosphatase (45-117) U/L Troponin I (0-0.045) ng/ml Total Protein (6.4-8.2) gm/dl Albumin (3.4-5.0) gm/dl Globulin (2.5-4.0) gm/dl Albumin/Globulin Ratio (0.9-2) Procalcitonin (0-0.5) ng/ml Urine Color Dark Yellow Urine Appearance Turbid A (Clear) Urine pH 5.0 (4.5-7.5) Ur Specific [place] 1.015 (1.000-1.030) Urine Protein 3+ H (Negative) Urine Glucose (UA) Negative (Negative) Urine Ketones Negative (Negative) Urine Blood 3+ H (Negative) Urine Nitrite Negative (Negative) Urine Bilirubin Negative (Negative) Urine Urobilinogen Negative (Negative) Ur Leukocyte Esterase 3+ H (Negative) Urine WBC (Auto) >30 H (0-5) /hpf Urine RBC (Auto) 5-10 H (0-4) /hpf U Hyaline Cast (Auto) 10-30 H (0-5) /lpf U Epithel Cells (Auto) >30 H (0-5) /lpf Urine Bacteria (Auto) 4+ H (Negative) Granular Casts 5-10 H (0) /lpf COVID-19 Eval Order SARS-CoV-2 (PCR) (Negative) Imaging Data My Impression: X-ray: I interpreted the following studies. Chest: A single view study of the chest was reviewed and showed cardiomegaly, asymmetric bilateral increased interstitial markings with R>L particularly at the base suggestive of a questionable evolving infiltrate on top of pulmonary edema, appearance of chest x-ray is worse than prior Radiologist's Impression: CT head: Mild motion artifact. No definite intracranial hemorrhage. No mass-effect or midline shift. No skull fracture. No significant overlying soft tissue a bnormality identified radiographically. No radiopaque foreign body. The paranasal sinuses and mastoid air cells demonstrate no significant abnormality. Radiologist: Avery Aguirre MD CT C-spine: No evidence of fracture or malalignment. Multilevel spondylosis with marginal hypertrophic changes. Incidental chronic mild osseous canal narrowing noted at C5-6 level. Multilevel facet hypertrophic changes noted. Radiologist: Avery Aguirre MD CT facial: Mild asymmetry in the nasal bones is presumed chronic. No acute osseous maxillofacial traumatic injury identified. The mandible is intact and well aligned. Asymmetric contusive changes involving the right lateral periorbital region. No well-defined hematoma or radiopaque foreign body. The overlying soft tissues are otherwise unremarkable. The orbits and globes, paranasal sinuses and mastoid air cells are unremarkable. Radiologist: Avery Aguirre MD ECG Data Attestation: I personally reviewed and interpreted this ECG as follows: Indication: + weakness Rate (beats per minute): 99 Rhythm: + normal sinus ECG Intervals/blocks: + Right Bundle branch block and + Prolonged QT ECG [place]: + Right axis deviation ECG ST segments: + Nonspecific ST abnormalities MDM Narrative This is an ill-appearing 70-year-old female who presents via EMS due to weakness and falls was found to be significantly hypotensive. There was significant difficulty in obtaining IV access. A single IV was placed in the right AC however after multiple attempts by both ER staff and IV team, no additional access was obtained and patient refused to allow any more attempts. IV fluids were started immediately, patient began to have minimal slow improvement in her blood pressure. Patient was alert and mentating throughout. Labs drawn and sent. Chest x-ray performed. I reviewed the EMR given patient's recent mention of an admission last month. I attempted to contact the twice and eventually was able to contact the daughter. We discussed her current presentation and my concerns at length. I discussed with patient options for additional IV access and she refused. This was a significant bedside discussion regarding limitations of only one IV line and benefits to a second peripheral IV or even a central line. Patient continued to refuse. I had extensive bedside discussion with the patient regarding CODE STATUS. She is DNI but will allow other resuscitative measures including CPR and defibrillation. Patient was in agreement to the use of pressors. Patient continued to be easily arousable and oriented on multiple repeat exams. Once into the second liter of IV fluids patient then dropped her blood pressure again, at this point in time decision was made to add Levophed. Patient continued to deny any pain. Once blood pressure was more stable with Levophed, patient sent for CT imaging as ordered due to obvious facial trauma and reported falls. Patient is not anticoagulated, does use low-dose aspirin. CT imaging was reassuring. I have low suspicion for additional occult traumatic injury. Patient states these were falls from standing. Blood pressure continued to be improved with Levophed. After 3 L bolus, patient changed to maintenance IV fluids. Patient did receive 30 mL/kilogram based on ideal body weight. Patient did have an elevated lactic acid and elevated procalcitonin. Case discussed with Dr. Gold for additional evaluation and management. She did discuss the case with the ICU provider. An order was placed for continuous cardiac monitoring. The monitor shows a rate of 98__ with _normal sinus_ rhythm. Impression & Plan Septic shock, Pneumonia, Hypoxia, Obesity, Dehydration, Acute UTI (urinary tract infection), Generalized weakness Discharge Plan Visit Data Chief Complaint: Fall Stated Complaint: FALL/ALTERED MENTAL STATUS ED Provider: Lamar Sanz Discharge Problem: Septic shock, Pneumonia, Hypoxia, Obesity, Dehydration, Acute UTI (urinary tract infection), Generalized weakness Patient Disposition: Admitted As Inpatient Condition: Critical Prescriptions Prescriptions: No Action quetiapine [Seroquel] 50 mg tablet 50 mg PO HS RF: 0 atorvastatin [Lipitor] 80 mg Tablet 80 mg PO HS RF: 0 aspirin [Aspirin Low Dose] 81 mg Tablet,Delayed Release (Dr/Ec) 81 mg PO QPM RF: 0 cholecalciferol (vitamin D3) [Vitamin D3] 2,000 unit Capsule 2,000 unit PO QAM RF: 0 gabapentin 300 mg Capsule 300 mg PO TID RF: 0 lisinopril 20 mg tablet 20 mg PO DAILY RF: 0 cyanocobalamin (vitamin B-12) 1,000 mcg/mL Solution 1,000 mcg IM MONTHLY RF: 0 Januvia 100 mg tablet 100 mg PO QPM RF: 0 Lantus Solostar U-100 Insulin 100 unit/mL (3 mL) Insulin Pen 25 unit SC QAM Qty: 15 RF: 0 metformin 500 mg tablet 500 mg PO DAILY Qty: 30 RF: 0
[2021-02-14] MEDS ORDERED: CEFEPIME 2,000 MG/20 ML VIAL IV STA (04:02)
[2021-02-14] MEDS ORDERED: SODIUM CHLORIDE 0.9% 1000ML 1,000 ML IV ONE ×2 (04:02→04:39)
[2021-02-14] MEDS ORDERED: ACETAMINOPHEN 1,000 MG/100 ML VIAL IV STA (04:02)
[2021-02-14] MEDS ORDERED: STAT IV Infusion **Titration per Protocol STA ×2 (04:17→09:02)
[2021-02-14] MEDS: NOREPINEPHRINE/D5W 8 MG/508 ML BAG IV SCH ×2 (04:23→17:45)
[2021-02-14 05:29] LABS: Appearance Urine Turbid (Clear); Bacteria Urine Automated 4+ (Negative); Bilirubin Urine Negative (Negative); Blood Urine 3+ (Negative); Color Urine Dark Yellow; Epithelial Cell Urine Auto >30 /lpf (0-5); Glucose Urine UA Negative (Negative); Ketones Urine Negative (Negative); Leukocyte Esterase Urine 3+ (Negative); Nitrite Urine Negative (Negative); Protein Urine 3+ (Negative); Specific Gravity Urine 1.015 (1.000-1.030); Urobilinogen Urine Negative (Negative); WBC Urine Automated >30 /hpf (0-5)
[2021-02-14 05:39] LABS: Base Excess ABG -3.5 mEq/L (-9-1.8); HCO3 ABG 21 mmol/L (19-24); PCO2 ABG 33 mmHg (35-46); PO2 ABG 89 mmHg (80-95); pH ABG 7.41 (7.35-7.45)
[2021-02-14 05:40] LABS: Allen Test Pos (Pos)
--- NOTE | 2021-02-14 05:45 | History & Physical Report ---
Date of Service February 14, 2021 Assessment & Plan (1) Septic shock: Plan: Traci Roman is a 70yo C female with history of DM, HTN, HLP and COPD presenting after several falls at home. Patient febrile, hypotensive, tachycardic and has slight increase in O2 demand. She has a neutrophil predominant leukocytosis with lymphopenia. Elevated procalcitonin of 4.04. Lactate is normal at 1. Suspect septic shock. Etiology possibly intraabdominal infection. Patient with large ventral hernia. Has had multiple SBOs in the past. ?Urinary source as well given UA findings. Neuro - patient AA&O. She is uncertain why she is in the hospital and is not completely clear on the events leading to her arrival. She denies pain. Unremarkable neurological exam. History of depression -Frequent orientation to avoid hospital delirium -Continue Seroquel 50 mg po qHS -Continue Gabapentin Pulmonary - Patient is on home O2. Presently saturating well on Oxymask. CXR with increase in interstitial markings, ?volume overload. Patient is a DNI -Continue supplemental O2 -Closely monitor respiratory status Cardiovascular - Patient with hypotension s/p IVF and presently on Levophed. Most likely secondary to septic shock as described below. Echo performed 01/10/21 with normal LV size, EF of 60-65%. Moderate to severely dilated RV with moderatly reduced RV function -Continue Levophed - titrate to maintain MAP 65 -Would avoid further fluids given concern for volume overload, patient is a DNI. Will most likely require diuresis after acute issues resolve. GI - BREN -Keep NPO -Protonix for PPx - Intact renal function, electrolytes with hyponatremia - Na of 125. Patient has received IVF NSS x 3 L -Maintain Deleon -Repeat chemistry for Na Heme - Leukocytosis, anemia -Continue to monitor ID - Suspect acute septic shock. Infectious source intraabdominal vs urinary. Patient improving with Levophed. Presently on 0.1mcg/kg/min with MAP at goal -Check CT abdomen/pelvis -Follow cultures -Check random cortisol -Empiric Zosyn, Vanc x 1 dose then check MRSA swab Endocrine- Patient with DM-II, hyperglycemia, poorly controlled although improving. Had Lantus added last hospitalization. Had been on Metformen and Januvia -Hold oral agents -Lantus 12u BID with ISS. -MICU hyperglycemia protocol F/E/N - will avoid further fluids after 3rd L is complete. Monitor Na and electroltyes. NPO Ppx - Lovenox. Protonix Code - Patient is DNI. Is agreeable to additional measures. Dispo -Admit to MICU (2) Diabetes mellitus type 2, uncontrolled: (3) Hypertension: (4) Hyperlipidemia: (5) Depression: (6) Chronic obstructive pulmonary disease: History of Present Illness Chief Complaint: Fall, hypotension Primary Care Provider: Kristal Pham Traci Roman is a 70yo female with history of DM, HTN, HLP presenting after fall x 2, weakness and fatigue. On initial presentation patient was febrile to 38.2, tachycardic at 113bpm and hypotensive to 65/50. Patient denies complaint of chest pain, worsening cough or sputum, SOB, abdominal pain, nausea, vomiting, diarrhea. She is unable to recall when her last BM was. She is also complaining of some mild low back pain as well as decreased appetite. No additional complaints at this time. Patient was administered 2 L of crystalloid with transient improvement in blood pressure followed by decline. She was started on Levophed 0.1mcg/kg/min and a 3rd liter of fluid is now running. She has had improvement in her blood pressures - presently 98/58. She is awake and alert, answers most questions appropriately but does seem mildly confused. She continues asking when she will be able to go home. She has a right AC PIV in place and has refused placement of additional peripheral or central venous access. Of note, patient was hospitalized from January 08 - with low back pain and hyperglycemia. She progressed to septic/hypovolemic shock and found to have a small bowel obstruction related to her large ventral hernia. She was managed conservatively in the MICU. She was ultimately discharged to rehab then subsequently returned home. ER Course: NSS x 3L, Levophed, Cefepime Allergies Allergy/AdvReac Type Severity Reaction Status Date / Time latex Allergy Severe 2ND DEGREE Verified 02/14/21 02:51 BURN FROM BANDAGE adhesive Allergy Intermediate RASH Verified 02/14/21 02:51 Home Medications Medication Instructions Recorded Confirmed Type aspirin 81 mg tablet,delayed 81 mg PO QPM 10/30/18 02/14/21 History release (Aspirin Low Dose) atorvastatin 80 mg tablet (Lipitor) 80 mg PO HS 10/30/18 02/14/21 History cholecalciferol (vitamin D3) 50 2,000 unit PO QAM 10/30/18 02/14/21 History mcg (2,000 unit) capsule (Vitamin D3) gabapentin 300 mg capsule 300 mg PO TID 10/30/18 02/14/21 History quetiapine 50 mg tablet (Seroquel) 50 mg PO HS 12/01/19 02/14/21 History cyanocobalamin (vitamin B-12) 1,000 mcg IM MONTHLY 01/08/21 02/14/21 History 1,000 mcg/mL injection solution sitagliptin 100 mg tablet (Januvia) 100 mg PO QPM 01/08/21 02/14/21 History insulin glargine 100 unit/mL (3 25 unit SC QAM #15 ml 01/22/21 02/14/21 Rx mL) subcutaneous pen (Lantus Solostar U-100 Insulin) metformin 500 mg tablet 500 mg PO DAILY #30 tab 01/22/21 02/14/21 Rx lisinopril 20 mg tablet 20 mg PO DAILY 02/14/21 02/14/21 History Past Med/Surg History Medical History Anxiety Chronic obstructive pulmonary disease Depression Diabetes mellitus, type 2 NIDDM Glaucoma WELL CONTROLLED H/O defect LEFT ARM Hyperlipidemia Hypertension Peripheral neuropathy BILATERAL FEET Temporomandibular joint disorder NO PROBLEMS RECENTLY. Surgical History History of appendectomy History of cholecystectomy History of colonoscopy History of incision and drainage UMBILICAL ABSCESS History of total shoulder replacement RIGHT Hx of umbilical hernia repair X4 -- WEARS SUPPORT BAND DAILY S/P JALIL-BSO S/P tonsillectomy and adenoidectomy Family History Mother Diabetes mellitus, type 2 Aunt Diabetes mellitus, type 2 Social History Smoking Status: Former smoker Tobacco Type: Cigarettes Cigarettes Per Day: 2 PPD X 50 YEARS AGO; Second Hand Exposure: Yes; Do You Dip or Chew Tobacco: No; Hx Alcohol Use: No Hx Substance Use: No Preferred Language: Wallisian Communication Ability: Effective Mattress Maker Required: No Beliefs That Will Affect Care: None marital status: Current Living Situation: Spouse current occupational status: retired Other Information That Helps Us Care for You: No Feels Safe at Home: Yes Safety Concerns: Feels Safe At This Time Assistive Devices: Oxygen - at Night, Walker and Wheelchair Review of Systems Review of Systems: General: Patient denies fevers, chills Skin: Patient denies bruising, bleeding or rash HEENT: Patient denies headache, visual changes, sore throat, difficulty swallowing, stiff neck Cardio: Patient denies chest pain, palpitations, shortness of breath, lightheadedness Pulmonary: Patient denies cough, wheeze GI: Patient denies abdominal pain, nausea, vomiting, diarrhea : Patient denies dysuria, frequency, urgency or hematuria Musculoskeletal: Patient denies swelling or pain of the joints, edema Neuro: Patient denies focal numbness, tingling, weakness or falls Psych: Patient denies depression, anxiety Physical Exam Physical Exam: General: morbidly obese female patient resting comfortably, NAD, AA&O Skin: warm, dry, intact, no rashes or lesions HEENT: NC/AT, PERRL, EOMI, anicteric sclera, conjunctiva without injection, external ear normal to inspection and nontender, nares patent, moist mucus membranes, dentition intact, no oropharyngeal lesions, neck supple, trachea midline, no LAD, no thyromegaly, no JVD Heart: +S1/S2, regular, tachycardic, no m/r/g Lungs: equal air entry bilaterally, no rales/rhonchi/wheezes, mildly diminished right side Abd: +BS normoactive, soft, NT, large ventral hernia, nontender to palpation, scarring of abdominal tissue Ext: warm, 2+ pulses in UE/LE bilaterally, no clubbing/cyanosis or edema, deformity of bilateral shoulders from as well as prior surgeries Neuro: nonfocal, patient AA&O x 4, speech intact, no facial droop, moving all extremities on command with equal strength 5/5 Results & Data Results & Data ([facility]) Vital Signs (Past 12 Hours) Vital Signs Temp Pulse Resp BP Pulse Ox 02/14/21 05:30 76 20 98/58 L 92 02/14/21 05:15 107 H 27 H 73/52 L 92 02/14/21 05:06 81 29 H 95 02/14/21 04:45 92/53 L 02/14/21 04:30 80 24 92/48 L 93 02/14/21 04:15 83 25 H 89/49 L 91 02/14/21 04:00 88 26 H 79/57 L 90 02/14/21 03:45 95 H 26 H 88/48 L 88 L 02/14/21 03:30 110 H 35 H 72/50 L 91 02/14/21 03:19 22 92 02/14/21 03:03 102 H 30 H 74/57 L 92 02/14/21 02:34 94 H 33 H 86/59 L 02/14/21 02:33 38.2 C H 113 H 22 65/50 L 92 Laboratory Results Laboratory Results WBC 17.82 K/uL (4.8-10.8) H 02/14/21 03:12 RBC 3.37 M/uL (4.2-5.4) L 02/14/21 03:12 Hgb 10.9 g/dL (12.0-16.0) L 02/14/21 03:12 Hct 32.6 % (37-47) L 02/14/21 03:12 MCV 96.7 fL (80-100) 02/14/21 03:12 MCH 32.3 pg (25-34) 02/14/21 03:12 MCHC 33.4 g/dL (32-36) 02/14/21 03:12 RDW Std Deviation 54.6 fL (36.4-46.3) H 02/14/21 03:12 RDW Coeff of Vikas 15.4 % (11.5-14.5) H 02/14/21 03:12 Plt Count 349 K/uL (130-400) 02/14/21 03:12 MPV 8.8 fL (7.4-10.4) 02/14/21 03:12 Immature Gran % (Auto) 0.3 % 02/14/21 03:12 Neut % (Auto) 86.0 % 02/14/21 03:12 Lymph % (Auto) 4.0 % 02/14/21 03:12 [place] % (Auto) 9.5 % 02/14/21 03:12 Eos % (Auto) 0.0 % 02/14/21 03:12 Baso % (Auto) 0.2 % 02/14/21 03:12 Neut # (Auto) 15.33 K/uL (1.4-6.5) H 02/14/21 03:12 Lymph # (Auto) 0.71 K/uL (1.2-3.4) L 02/14/21 03:12 [place] # (Auto) 1.69 K/uL (0.11-0.59) H 02/14/21 03:12 Eos # (Auto) 0.00 K/uL (0-0.5) 02/14/21 03:12 Baso # (Auto) 0.03 K/uL (0-0.2) 02/14/21 03:12 Immature Gran # (Auto) 0.06 K/uL (0.00-0.02) H 02/14/21 03:12 ABG pH 7.41 (7.35-7.45) 02/14/21 05:30 ABG pCO2 33 mmHg (35-46) L 02/14/21 05:30 ABG pO2 89 mmHg (80-95) 02/14/21 05:30 ABG HCO3 21 mmol/L (19-24) 02/14/21 05:30 ABG O2 Saturation 96.0 % (90-95) H 02/14/21 05:30 ABG Base Excess -3.5 mEq/L (-9-1.8) 02/14/21 05:30 Zach Test Pos (Pos) 02/14/21 05:30 Oxygen Given 6L 02/14/21 05:30 Sodium 125 mmol/L (136-145) L 02/14/21 03:12 Potassium 4.4 mmol/L (3.5-5.1) 02/14/21 03:12 Chloride 93 mmol/L (98-107) L 02/14/21 03:12 Carbon Dioxide 23 mmol/L (21-32) 02/14/21 03:12 Anion Gap 9.0 (3-11) 02/14/21 03:12 BUN 28 mg/dl (7-18) H 02/14/21 03:12 Creatinine 1.18 mg/dl (0.6-1.2) 02/14/21 03:12 Est Cr Clr Drug Dosing 52.3 ml/min 02/14/21 03:12 Est GFR ( Amer) 54.5 ml/min 02/14/21 03:12 Est GFR (Non-Af Amer) 47.0 ml/min 02/14/21 03:12 BUN/Creatinine Ratio 23.6 (10-20) H 02/14/21 03:12 Glucose 214 mg/dl (70-99) H 02/14/21 03:12 Lactate 1.0 mmol/L (0.4-2.0) 02/14/21 05:30 Calcium 8.2 mg/dl (8.5-10.1) L 02/14/21 03:12 Magnesium 2.1 mg/dl (1.8-2.4) 02/14/21 03:12 Total Bilirubin 0.8 mg/dl (0.2-1) 02/14/21 03:12 AST 23 U/L (15-37) 02/14/21 03:12 ALT 19 U/L (12-78) 02/14/21 03:12 Alkaline Phosphatase 135 U/L (45-117) H 02/14/21 03:12 Troponin I < 0.015 ng/ml (0-0.045) 02/14/21 03:12 Total Protein 7.1 gm/dl (6.4-8.2) 02/14/21 03:12 Albumin 2.6 gm/dl (3.4-5.0) L 02/14/21 03:12 Globulin 4.5 gm/dl (2.5-4.0) H 02/14/21 03:12 Albumin/Globulin Ratio 0.6 (0.9-2) L 02/14/21 03:12 Procalcitonin 4.04 ng/ml (0-0.5) H 02/14/21 03:12 Urine Color Dark Yellow 02/14/21 05:20 Urine Appearance Turbid (Clear) A 02/14/21 05:20 Urine pH 5.0 (4.5-7.5) 02/14/21 05:20 Ur Specific [place] 1.015 (1.000-1.030) 02/14/21 05:20 Urine Protein 3+ (Negative) H 02/14/21 05:20 Urine Glucose (UA) Negative (Negative) 02/14/21 05:20 Urine Ketones Negative (Negative) 02/14/21 05:20 Urine Blood 3+ (Negative) H 02/14/21 05:20 Urine Nitrite Negative (Negative) 02/14/21 05:20 Urine Bilirubin Negative (Negative) 02/14/21 05:20 Urine Urobilinogen Negative (Negative) 02/14/21 05:20 Ur Leukocyte Esterase 3+ (Negative) H 02/14/21 05:20 Urine WBC (Auto) >30 /hpf (0-5) H 02/14/21 05:20 Urine RBC (Auto) 5-10 /hpf (0-4) H 02/14/21 05:20 U Hyaline Cast (Auto) 10-30 /lpf (0-5) H 02/14/21 05:20 U Epithel Cells (Auto) >30 /lpf (0-5) H 02/14/21 05:20 Urine Bacteria (Auto) 4+ (Negative) H 02/14/21 05:20 Granular Casts 5-10 /lpf (0) H 02/14/21 05:20 COVID-19 Eval Order Covid19 at [facility] 02/14/21 03:37 SARS-CoV-2 (PCR) NEGATIVE (Negative) 02/14/21 03:37 Diagnostic Findings CXR - appear to show pulmonary vascular congestion, evidence of volume oveload ECG Additional Comments: EKG wtih NSR at 99, XI=859, AIN=934, XNz=538, RBBB present, no acute ischemic changes Code Status & VTE Plan VTE Prophylaxis Plan VTE Prophylaxis will be ordered: Yes Critical Care Time 40 minutes PG Care Time/CCT Total # of Minutes Spent Total Time Spent with Patient: Total time spent is greater than 50% in coordination of care (as documented) at patient's floor/unit and/or counseling patient: Coding Level of Care Code None Diagnoses Septic shock A41.9; R65.21 Diabetes mellitus type 2, uncontrolled E11.65 Hypertension I10 Hypertension type: essential hypertension Hyperlipidemia E78.5 Hyperlipidemia type: unspecified Depression F32.9 Depression Type: major depressive disorder Major depression recurrence: unspecified whether recurrent Active/Remission status: remission status unspecified Chronic obstructive pulmonary disease J44.9 COPD type: unspecified COPD (1) Hypertension Hypertension type: essential hypertension Qualified Code(s): I10 - Essential (primary) hypertension (2) Hyperlipidemia Hyperlipidemia type: unspecified Qualified Code(s): E78.5 - Hyperlipidemia, unspecified (3) Depression Depression Type: major depressive disorder Major depression recurrence: unspecified whether recurrent Active/Remission status: remission status unspecified Qualified Code(s): F32.9 - Major depressive disorder, single episode, unspecified (4) Chronic obstructive pulmonary disease COPD type: unspecified COPD Qualified Code(s): J44.9 - Chronic obstructive pulmonary disease, unspecified
--- NOTE | 2021-02-14 06:59 | CT Scan Report ---
CT facial bones wo con CLINICAL HISTORY: 70 years-old Female presenting with trauma. Acute facial trauma with weakness COMPARISON STUDY: Head CT of same day TECHNIQUE: High-resolution CT scan of the facial bones is performed. Images are reviewed in the axia l, sagittal, and coronal planes. IV contrast was not administered for this examination. A dose lower ing technique was utilized adhering to the principles of ALARA. FINDINGS: Small contusion lateral to the right orbit. The bilateral globes and orbits are within normal limits. No large hematoma or opaque foreign body. Streak artifact from dental amalgam hardware. The imaged i ntracranial structures demonstrate no acute abnormality. Reverse right shoulder total joint arthropla sty. No acute calvarial fracture identified. The mastoid air cells and middle ear cavities are clear. Mild mucoperiosteal thickening of the and ethmoid air cells and left greater than right maxillary si nuses. Moderate mucoperiosteal thickening of the left sphenoid sinus. Hypoplastic left frontal sinus. Chronic angulated left nasal bone fracture. Large periapical cyst involves the left maxillary canine and lateral incisor. Additional smaller periapical cysts are also noted within additional teeth. No acute facial bone fracture identified. Moderate degeneration of the left temporal mandibular joint. IMPRESSION: 1. Small contusion lateral to the right orbit. No acute facial bone fracture identified. 2. Chronic angulated left nasal bone fracture. ACT 112: Negative or not required by law. The above report was generated using voice recognition software. It may contain grammatical, syntax o r spelling errors. Electronically signed by: Dre Burleson M.D. 02/14/2021 6:57 AM
--- NOTE | 2021-02-14 07:03 | XRay Report ---
XR chest 1V portable HISTORY: 70 years-old Female SEPSIS acute sepsis COMPARISON: CT abdomen and pelvis of same day, chest radiograph 01/13/2021 TECHNIQUE: AP view of the chest FINDINGS: Cardiac silhouette is enlarged. Pulmonary vascular congestion with reticular interstitial coarsening. Mild bibasilar opacities. No pneumothorax. Trace pleural effusions. Degenerative changes of the spin e. Chronic deformity of the left shoulder. Reverse right shoulder total joint arthroplasty. IMPRESSION: 1. Cardiomegaly with pulmonary edema and trace pleural effusions. 2. Mild bibasilar opacities suggestive of atelectasis. Pneumonitis considered less likely. ACT 112: Negative or not required by law. The above report was generated using voice recognition software. It may contain grammatical, syntax o r spelling errors. Electronically signed by: Dre Burleson M.D. 02/14/2021 7:02 AM
[2021-02-14] MEDS ORDERED: VANCOMYCIN CONSULT ACTIVE PRN (07:07)
[2021-02-14] MEDS ORDERED: PIPERACILL/TAZOBAC CONSULT ACTIVE PRN (07:07)
[2021-02-14] MEDS ORDERED: ICU PROTOCOL FOR HYPERGLYCEMIA PRN (07:07)
[2021-02-14] MEDS ORDERED: PIPERACILLIN/TAZOBACTAM 3.375 GM in DEXTROSE 5% 100 ML IV SCH (07:07)
[2021-02-14] MEDS ORDERED: VANCOMYCIN HCL 2,000 MG in SODIUM CHLORIDE 0.9% 500 ML IV ONE (07:30)
[2021-02-14] MEDS ORDERED: PIPERACILLIN/TAZOBACTAM 4.5 GM in DEXTROSE 5% 100 ML IV ONE (07:30)
--- NOTE | 2021-02-14 07:59 | Critical Care Consultation ---
Date of Consultation February 14, 2021 Assessment & Plan (1) Septic shock: 70-year-old female with a history of uncontrolled diabetes mellitus, hypertension, hyperlipidemia and morbid obesity presenting to the hospital due to altered mental status and septic shock. Neurologic: Metabolic encephalopathy. CT head read pending. No obvious bleed noted on my interpretation of the imaging. Pulmonary: Currently on 6 L oxygen mask. Will obtain ABG to evaluate for hypercapnia. Chest x-ray with bibasilar infiltrates. Possible atelectasis versus pneumonia. COVID-19 PCR was negative on admission. Cardiovascular: Hypotensive at present. Currently on Levophed. We will give an additional bolus of 500 cc Normosol. Maintain mean arterial pressure above 65. Patient apparently refused central line in the emergency department. We will need to reconsider central line placement if she continues to require vasopressor support. Troponin and EKG negative. Gastrointestinal: N.p.o. for the time being given her altered mental status. Recently had a small bowel obstruction. CT abdomen interpretation pending. Renal: Patient with hyponatremia. Urine sodium, serum osmolality ordered. No evidence of EYAD. Hyponatremia may be secondary due to hypovolemic state. Recheck sodium level now. Lactic acidosis improved from 2.3-1.0. Infectious disease: Urinalysis demonstrates evidence of UTI. Cultures pending. Procalcitonin elevated. Continue vancomycin and Zosyn. MRSA screen pending. Source is again likely urinary tract infection and/or pneumonia. CT abdomen interpretation pending. Hematologic: Leukocytosis likely from acute infection. Hemoglobin 10.9 likely hemodilution all from fluid replacement. Endocrine: Hyperglycemia management per ICU protocol. Cortisol pending. A1c 15.3. Lines and tubes: 1 peripheral IV VTE prophylaxis: Lovenox CODE STATUS: Currently okay for CPR and ACLS. DO NOT INTUBATE. Family at bedside: None available at bedside due to the COVID-19 pandemic. Disposition: Remain in ICU. I have personally spent 40 minutes of critical care time in the direct management of this patient. This is a life/limb threatening event. This includes time spent evaluating patient, direct bedside care, chart review, placing orders, interpretation of diagnostic studies, discussion with consultants, patient, and family members, as well as other required patient management activities. This time is exclusive of all separately billable procedures, and teaching time and separate from and in addition to any other critical care service time. Thank you for allowing us to participate in the care of this patient. (2) Pneumonia: (3) Hypoxia: (4) Complicated UTI (urinary tract infection): (5) Hyponatremia: History of Present Illness Reason for Consultation: Septic shock requiring ICU admission Attending Physician: Delfin Guzman MD History of Present Illness 70-year-old female with a history of diabetes mellitus, hypertension, hyperlipidemia and fall presenting to the ER with weakness and fatigue. Patient was initially febrile to 100.8 F. Unable to get much history from the patient as she is very lethargic. I was able to review the chart with bedside nurse. Patient currently denies any chest pain or discomfort. She is currently on Levophed at a dose of 0.1mcg/kg/min. She apparently refuses central line in the emergency department. She received 3 L of fluid. She was complaining of low back pain in the ER. She underwent a chest x-ray, cervical CT spine, face CT, head CT and abdomen/pelvis CT in the ER. Chest x-ray with evidence of cardiomegaly and pulmonary edema. Mild basilar opacities were noted. A CT demonstrated small contusion of the lateral to the right orbit. Chronic age-related left nasal bone fracture. CT cervical spine, CT head and CT abdomen/pelvis interpretations are pending by radiology. She was just discharged from the hospital on 01/22/2021 due to a partial small bowel obstruction and hyperglycemia. Bowel obstruction was conservatively managed. She does have an A1c of 15.3. Echo was completed 01/10/2021. Study was technically difficult. LV was 60 to 65%. Right ventricle was noted to be moderately to severely dilated. Allergies Allergy/AdvReac Type Severity Reaction Status Date / Time latex Allergy Severe 2ND DEGREE Verified 02/14/21 02:51 BURN FROM BANDAGE adhesive Allergy Intermediate RASH Verified 02/14/21 02:51 Home Medications Medication Instructions Recorded Confirmed Type aspirin 81 mg tablet,delayed 81 mg PO QPM 10/30/18 02/14/21 History release (Aspirin Low Dose) atorvastatin 80 mg tablet (Lipitor) 80 mg PO HS 10/30/18 02/14/21 History cholecalciferol (vitamin D3) 50 2,000 unit PO QAM 10/30/18 02/14/21 History mcg (2,000 unit) capsule (Vitamin D3) gabapentin 300 mg capsule 300 mg PO TID 10/30/18 02/14/21 History quetiapine 50 mg tablet (Seroquel) 50 mg PO HS 12/01/19 02/14/21 History cyanocobalamin (vitamin B-12) 1,000 mcg IM MONTHLY 01/08/21 02/14/21 History 1,000 mcg/mL injection solution sitagliptin 100 mg tablet (Januvia) 100 mg PO QPM 01/08/21 02/14/21 History insulin glargine 100 unit/mL (3 25 unit SC QAM #15 ml 01/22/21 02/14/21 Rx mL) subcutaneous pen (Lantus Solostar U-100 Insulin) metformin 500 mg tablet 500 mg PO DAILY #30 tab 01/22/21 02/14/21 Rx lisinopril 20 mg tablet 20 mg PO DAILY 02/14/21 02/14/21 History Patient History Medical History (Updated 02/14/21 @ 08:14 by Leonel Nova MD) Anxiety Chronic obstructive pulmonary disease Complicated UTI (urinary tract infection) Depression Diabetes mellitus, type 2 NIDDM Glaucoma WELL CONTROLLED H/O defect LEFT ARM Hyperlipidemia Hypertension Hyponatremia Peripheral neuropathy BILATERAL FEET Temporomandibular joint disorder NO PROBLEMS RECENTLY. Surgical History History of appendectomy History of cholecystectomy History of colonoscopy History of incision and drainage UMBILICAL ABSCESS History of total shoulder replacement RIGHT Hx of umbilical hernia repair X4 -- WEARS SUPPORT BAND DAILY S/P JALIL-BSO S/P tonsillectomy and adenoidectomy Family History Mother Diabetes mellitus, type 2 Aunt Diabetes mellitus, type 2 Social History Smoking Status: Former smoker Tobacco Type: Cigarettes Cigarettes Per Day: 2 PPD X 50 YEARS AGO; Second Hand Exposure: Yes; Hx Alcohol Use: No Hx Substance Use: No Preferred Language: Surinamese Communication Ability: Effective Machine Engraver Required: No Beliefs That Will Affect Care: None marital status: Current Living Situation: Spouse current occupational status: retired Feels Safe at Home: Yes Assistive Devices: Oxygen - at Night, Walker and Wheelchair Review of Systems Review of Systems: Unobtainable given the patient's altered mental status Physical Exam Physical Exam: Constitutional: Patient appears confused and lethargic. Eyes: Pupils are equal round and reactive to light. Conjunctivae are normal. Anicteric sclera. Ears nose, mouth and throat: Small mouth. Neck: Trachea is midline. Visual inspection is normal. Respiratory: Diminished lung sounds bilaterally. Crackles noted in the lower lobes. Cardiovascular: Regular rate and rhythm. No murmurs. No edema. Gastrointestinal: Normal bowel sounds, soft, nontender and nondistended. No hepatosplenomegaly noted. Musculoskeletal: No cyanosis. Patient is able to move all extremities. Strength is 5 out of 5 in the upper and lower extremities. Skin: No rashes, warm dry and intact. Neurologic: Moves all extremities. No obvious focal deficits. Psychiatric: Confused and lethargic. States that she is in "[place]" Results & Data Results & Data ([facility]) Vital Signs (Past 12 Hours) Vital Signs Temp Pulse Pulse Resp BP BP Pulse Ox 02/14/21 07:07 94 H 02/14/21 07:06 98.1 F 70 16 106/61 96 02/14/21 06:16 98.2 F 02/14/21 06:00 77 21 93/57 L 98 02/14/21 05:45 94 H 21 104/60 98 02/14/21 05:30 76 20 98/58 L 92 02/14/21 05:15 107 H 27 H 73/52 L 92 02/14/21 05:06 81 29 H 95 02/14/21 04:45 92/53 L 02/14/21 04:30 80 24 92/48 L 93 02/14/21 04:15 83 25 H 89/49 L 91 02/14/21 04:00 88 26 H 79/57 L 90 02/14/21 03:45 95 H 26 H 88/48 L 88 L 02/14/21 03:30 110 H 35 H 72/50 L 91 02/14/21 03:19 22 92 02/14/21 03:03 102 H 30 H 74/57 L 92 02/14/21 02:34 94 H 33 H 86/59 L 02/14/21 02:33 100.8 F H 113 H 22 65/50 L 92 vital signs, labs and imaging personally reviewed Coding Level of Care Code Critical Care 1st 30-74 mins Diagnoses Septic shock A41.9; R65.21 Pneumonia J18.9 Laterality: right Lung location: lower lobe of lung Pneumonia type: due to unspecified organism Hypoxia R09.02 Complicated UTI (urinary tract infection) N39.0 Hyponatremia E87.1 Time Spent (min) 40 (1) Pneumonia Laterality: right Lung location: lower lobe of lung Pneumonia type: due to unspecified organism Qualified Code(s): J18.9 - Pneumonia, unspecified organism
[2021-02-14] MEDS ORDERED: GLUCOSE 10 TABS/TUBE PO PRN (08:00)
[2021-02-14] MEDS ORDERED: GLUCAGON FOR INJ 1 MG VIAL IM PRN (08:00)
[2021-02-14] MEDS ORDERED: DEXTROSE 50% 50 ML SYRINGE IV PRN (08:00)
[2021-02-14] MEDS ORDERED: CARBOHYDRATES FOR HYPOGLYCEMIA PO PRN (08:00)
[2021-02-14] MEDS ORDERED: GLUCOSE 40% GEL 15 GM TUBE PO PRN (08:00)
[2021-02-14] MEDS: GABAPENTIN 300 MG CAP PO SCH ×3 (08:09→20:38)
[2021-02-14] MEDS: PANTOprazole 40 MG TAB PO SCH (08:09)
[2021-02-14] MEDS ORDERED: NORMOSOL-R 500 ML IV ONE (08:20)
[2021-02-14] MEDS ORDERED: SEVERE STRESS LEVEL ONE (08:21)
[2021-02-14] MEDS ORDERED: PHARMACY GLYCEMIC MGMT CONSULT PRN (08:22)
[2021-02-14 08:30] LABS: iSTAT Allen Test Pass; iSTAT Art Bld Gas pCO2 Correct 42 mmHg (35-46); iSTAT Art Bld Gas pH Corrected 7.297 (7.35-7.45); iSTAT Arterial Blood Gas HCO3 21 meg/L (19-24); iSTAT Arterial Blood Gas pCO2 43 mmHg (35-46); iSTAT Arterial Blood Gas pH 7.29 (7.35-7.45); iSTAT Arterial Blood Gas pO2 100 mmHg (80-95); iSTAT Arterial Blood Gas pO2 C 98; iSTAT Carbon Dioxide 22 mmol/L (24-31); iSTAT Hematocrit 29 % (37-47); iSTAT Hemoglobin 9.9 g/dl (12.0-16.0); iSTAT Potassium 3.8 mmol/L (3.3-5.0); iSTAT Site R Radial; iSTAT Sodium 127 mmol/L (135-144)
[2021-02-14] MEDS: LACTATED RINGER'S 1,000 ML IV SCH ×2 (08:45→20:38)
[2021-02-14] MEDS: ENOXAPARIN INJ 40 MG/0.4 ML SYR SQ SCH (08:46)
[2021-02-14] MEDS ORDERED: INSULIN GLARGINE SOLOSTAR 100 UNITS/ML 3 ML PEN SC SCH (09:00)
[2021-02-14] MEDS ORDERED: NovoLIN-R BOLUS FROM BAG IV ONE (09:15)
[2021-02-14 09:20] LABS: BUN Creatinine Ratio 28.8 (10-20); Calcium 7.8 mg/dl (8.5-10.1); Creatinine Clr Calc Pharmacy 64.5 ml/min; Est GFR (African American) 69.1 ml/min; Est GFR (Non-African American) 59.6 ml/min; Potassium 3.8 mmol/L (3.5-5.1)
[2021-02-14] MEDS ORDERED: RAPID SEQUENCE INDUCTION BAG ONE (09:24)
--- NOTE | 2021-02-14 09:25 | CT Scan Report ---
HEAD CT NONCONTRAST CT DOSE: 1171.77 mGy.cm HISTORY: Fall. trauma TECHNIQUE: Multiaxial CT images of the head were performed without the use of intravenous contrast. A utomated exposure control was utilized for this study. A dose lowering technique was utilized adheri ng to the principles of ALARA. Comparison: None. Findings: The paranasal sinuses and mastoid air cells are clear. The calvarium and skull base are int act. There is no mass, hematoma, midline shift, acute infarct. White matter hypodensity is nonspecifi c but suggestive of microvascular ischemic change. The ventricles and sulci demonstrate mild age-rela shayan involutional changes. Impression: No acute intracranial abnormality. Atrophy and microvascular ischemic changes. ACT 112: Negative or not required by law. Electronically signed by: Mauri Guzman M.D. 02/14/2021 9:23 AM
[2021-02-14 09:26] LABS: Thyroid Stimulating Hormone 0.413 uIu/ml (0.300-4.500)
--- NOTE | 2021-02-14 10:23 | Communication Note ---
Date of Service: February 14, 2021 I had a discussion with the patient's daughter with the patient with continuation of time and the patient's daughter indicated that she would like her to be full code. However, as the morning progressed the patient became more alert and awake. Patient is currently refusing a central line or intubation. She is also stating that she would not want resuscitation in the event that she had a cardiac arrest. She is agreeable to continue antibiotics and peripheral pressors. She understands that there is a risk of extravasation of vasopressors into the subcutaneous tissue with the peripheral IV. Her CODE STATUS has been changed to DNR/DNI to reflect her wishes. Coding Level of Care Code None
[2021-02-14] MEDS: INSULIN REGULAR 250 UNITS in SODIUM CHLORIDE 0.9% 247.5 ML IV SCH (10:57)
[2021-02-14] MEDS: INSULIN ASPART 100 UNITS/ML 3 ML PEN SC SCH ×3 (11:13→20:08)
[2021-02-14] MEDS ORDERED: INSULIN GLARGINE SOLOSTAR 100 UNITS/ML 3 ML PEN SC ONE ×2 (11:15→21:00)
--- NOTE | 2021-02-14 11:21 | Pharmacy Report ---
Pharmacy Glycemic Short Note 2 - Date of Service February 14, 2021 - Glycemic Short BSG Results (Last 24 hours): 02/14/21 02/14/21 02/14/21 03:12 08:07 08:28 Glucose 214 H 248 H POC Glucose 253 H 02/14/21 10:53 Glucose POC Glucose 251 H OUTPATIENT ANTIDIABETIC REGIMEN: Prior to recent admit December 2020 * Sitagliptin * HbA1c 15.3% on 01/09/21 Changes to regimen on discharge 01/22/21 * Lantus 25 units SC daily added * Metformin 500 mg po daily added ASSESSMENT: * 70 yo F with uncontrolled T2DM recently admitted to [facility] December 2020 initially f or hyperglycemia / outpatient BSG >700 but complicated by hypovolemic shock and SBO. Patient was re-admitted earlier today 02/14 for septic shock, possibly urinary source. Patient is on norepinephrine in the ICU. Intubation and central line placement planned but patient is currently refusing both * Insulin drip initiated due to severity of illness and BSG >220 mg/dL. Not DKA, not HHS. Continue drip for now per Dr. Nova. Discussed at ICU rounds - OK to start low-dose Lantus to help ease *eventual* transition off of the drip, but not as an attempt to transition off today * Near the end of her recent admission, regimen was as follows: Lantus 35 units SC qAM, Novolog ACHS goal 110-140 mg/dL, correction factor 20 mg/dL/unit, carb ratio 6 g CHO/unit while patient was ordered a diet. Anticipate ability to resume to a similar regimen in the future PLAN FOR INPATIENT GLYCEMIC CONTROL: * Hold outpatient oral diabetes medications * Insulin drip initially with 3 units IV bolus then 3 units/hr. Goal range 140- 180 mg/dL * Basal insulin * Lantus 15 units SQ x1 now * Bolus insulin * Nutritional / Prandial insulin per carb ratio per insulin drip calculator PLAN FOR DISCHARGE: * tbd. Significant changes will not likely be required as her regimen was recently changed on 01/22/21 (see above)
--- NOTE | 2021-02-14 11:32 | CT Scan Report ---
CT OF THE CERVICAL SPINE CLINICAL HISTORY: trauma COMPARISON STUDY: No previous studies for comparison. CT DOSE: TECHNIQUE: CT scan of the cervical spine was performed from the skull base to the thoracic inlet. Arabella ges are reviewed in the axial, sagittal, and coronal planes. IV contrast was not administered for thi s examination. A dose lowering technique was utilized adhering to the principles of ALARA. FINDINGS: The visualized portions of the lung apices reveal no evidence of pneumothorax. Small subpleural opaci ty is seen at the lateral aspect of the left upper lobe. Mucosal thickening of visualized portion of the left maxillary sinus, left sphenoid sinus are seen. The prevertebral soft tissues are normal. No fractures or subluxations are visualized. Evaluation of the mid-distal aspect of the cervical spine is limited due to motion and beam hardening artifact. Mild cervical levoscoliosis. Diffuse osteopenia Mild exaggeration of the cervical lordosis. Vertebral body heights are maintained. Multilevel intervertebral disc space narrowing with osteophytes are seen. Mild narrowing of central canal is seen at C3-C4, C5-C6 levels. Mild narrowing of bilateral neurofora rukhsana are seen at C5-C6 level. IMPRESSION: No definite acute fracture or traumatic malalignment. Evaluation is limited due to diffuse osteopenia as well as beam hardening artifact mostly affecting mid-distal aspect of cervical spine. Multilevel degenerative changes of the spine as detailed above. Small subpleural opacity seen at the lateral aspect of the left upper lobe. Please correlate this fin dings with clinical presentation of prior history of pulmonary infectious/inflammatory process. Possible sinusitis. Please correlate with clinical presentation. ACT 112: Negative or not required by law. The above report was generated using voice recognition software. It may contain grammatical, syntax o r spelling errors. Electronically signed by: Madeleine Newton DO 02/14/2021 11:31 AM
--- NOTE | 2021-02-14 11:45 | Palliative Care Consultation ---
Date of Consultation February 14, 2021 Assessment & Plan (1) Palliative care encounter: Ms. Traci Roman is a 70 year old female who presented to the [facility] with increased weakness and s/p fall resulting in a left orbital small contusion. She had a recent hospitalization for hyperglycemia from 01/08-01/21 requiring ICU management. She was discharged to [facility] for rehab and transitioned to home. Additional PMH includes: DM2, HTN, CHF, depression, anxiety, COPD, h/o small bowel obstruction and HLD. Palliative Medicine was consulted to discuss goals of care. I met with Traci in room [address] Nova and Shira RODAS. Patient was able to open her eyes for me and answer questions appropriately. She told me that she was recently at [facility] for two weeks for rehabilitation and 'just wants to go home'. She stated that at baseline, she walks with a walker and lives with her Lavelle. There was a previous conversation with the energy systems laboratory director regarding code status. She reiterated to me that if she were to have respiratory or cardiac arrest, she would not want resuscitative efforts made, but would rather shift towards a comfort focused approach to her care. The patient indicated she would not want a feeding tube, but was receptive to short term artificial nutrition/hydration. She did say that if she were not improving, she would prefer to return home with hospice support. She gave permission for me to discuss the above with her daughter, Raisa. I called Raisa at [phone] and talked at length. She was supportive of her DNR/DNI transition. She mentioned that she had a central line before and we discussed her current wishes and that she 'just doesn't know if she wants to do all of this again.' We discussed that she is still NPO as she was not awake enough to swallow safely. This can continue to be assessed. She also had a recent SBO and an abdominal CT is pending. Would suggest ST evaluate her for safe swallowing. Confirmed visitation with Raisa and explained that should care shift towards comfort, would allow visitation alterations that would be discussed at that time. Palliative will follow. (2) Generalized weakness: (3) Shortness of breath: (4) Septic shock: History of Present Illness Reason for Consultation: Goals of Care Requesting Physician: Dr. Nova Attending Physician: Delfin Guzman MD History of Present Illness Ms. Traci Roman is a 70 year old female who presented to the [facility] with increased weakness and s/p fall resulting in a left orbital small contusion. Additional PMH includes: DM2, HTN, CHF, depression, anxiety, COPD, h/o small bowel obstruction and HLD. Palliative Medicine was consulted to discuss goals of care. Please see A/P for further details. Thanks for involving Palliative Medicine with this patient. Allergies Allergy/AdvReac Type Severity Reaction Status Date / Time latex Allergy Severe 2ND DEGREE Verified 02/14/21 02:51 BURN FROM BANDAGE adhesive Allergy Intermediate RASH Verified 02/14/21 02:51 Home Medications Medication Instructions Recorded Confirmed Type aspirin 81 mg tablet,delayed 81 mg PO QPM 10/30/18 02/14/21 History release (Aspirin Low Dose) atorvastatin 80 mg tablet (Lipitor) 80 mg PO HS 10/30/18 02/14/21 History cholecalciferol (vitamin D3) 50 2,000 unit PO QAM 10/30/18 02/14/21 History mcg (2,000 unit) capsule (Vitamin D3) gabapentin 300 mg capsule 300 mg PO TID 10/30/18 02/14/21 History quetiapine 50 mg tablet (Seroquel) 50 mg PO HS 12/01/19 02/14/21 History cyanocobalamin (vitamin B-12) 1,000 mcg IM MONTHLY 01/08/21 02/14/21 History 1,000 mcg/mL injection solution sitagliptin 100 mg tablet (Januvia) 100 mg PO QPM 01/08/21 02/14/21 History insulin glargine 100 unit/mL (3 25 unit SC QAM #15 ml 01/22/21 02/14/21 Rx mL) subcutaneous pen (Lantus Solostar U-100 Insulin) metformin 500 mg tablet 500 mg PO DAILY #30 tab 01/22/21 02/14/21 Rx lisinopril 20 mg tablet 20 mg PO DAILY 02/14/21 02/14/21 History Patient History Medical History (Updated 02/14/21 @ 11:41 by CHARLOTTE Rangel) Anxiety Chronic obstructive pulmonary disease Complicated UTI (urinary tract infection) Depression Diabetes mellitus, type 2 NIDDM Glaucoma WELL CONTROLLED H/O defect LEFT ARM Hyperlipidemia Hypertension Hyponatremia Palliative care encounter Peripheral neuropathy BILATERAL FEET Shortness of breath Temporomandibular joint disorder NO PROBLEMS RECENTLY. Surgical History History of appendectomy History of cholecystectomy History of colonoscopy History of incision and drainage UMBILICAL ABSCESS History of total shoulder replacement RIGHT Hx of umbilical hernia repair X4 -- WEARS SUPPORT BAND DAILY S/P JALIL-BSO S/P tonsillectomy and adenoidectomy Family History Mother Diabetes mellitus, type 2 Aunt Diabetes mellitus, type 2 Social History Smoking Status: Former smoker Tobacco Type: Cigarettes Cigarettes Per Day: 2 PPD X 50 YEARS AGO; Second Hand Exposure: Yes; Hx Alcohol Use: No Hx Substance Use: No Preferred Language: Bahraini Communication Ability: Effective Clip Loading Machine Feeder Required: No Beliefs That Will Affect Care: None marital status: Current Living Situation: Spouse current occupational status: retired Feels Safe at Home: Yes Assistive Devices: Oxygen - at Night, Walker and Wheelchair Review of Systems Review of Systems: Simpson System Assessment Scale: Pain: 0/3 SOB: 1/3 Nausea: 0/3 Lack of Appetite: 1/3 Tiredness: 2/3 Palliative Performance Scale: 30% Physical Exam Constitutional: + ill appearing, + frail appearing and cooperative ENMT: Mouth: + dry oral mucous membranes Respiratory: + uses accessory muscles and + cough Auscultation: + diminished lung sounds and + crackles Cardiovascular: Rate/Rhythm: regular rate and regular rhythm Heart Sounds: normal S1 and normal S2 Extremities: normal capillary refill; no edema Gastrointestinal (Abdomen): Inspection/Auscultation: abdomen normal to inspect ion Percussion/Palpation: abdomen soft Skin: + pallor Psychiatric: Orientation: alert and oriented x 3 Insight: + limited insight Judgement: + limited judgement Results & Data ([facility]) Vital Signs (Past 12 Hours) Vital Signs Temp Pulse Pulse Resp BP BP Pulse Ox 02/14/21 11:05 152/91 H 02/14/21 10:02 60 18 118/54 L 98 02/14/21 09:33 70 17 103/35 L 94 02/14/21 09:31 99/36 L 02/14/21 09:02 70 19 91/45 L 97 02/14/21 08:48 76/34 L 02/14/21 08:01 70 19 103/51 L 96 02/14/21 08:00 36.7 C 02/14/21 07:07 94 H 02/14/21 07:06 36.7 C 70 16 106/61 96 02/14/21 06:16 36.8 C 02/14/21 06:00 77 21 93/57 L 98 02/14/21 05:45 94 H 21 104/60 98 02/14/21 05:30 76 20 98/58 L 92 02/14/21 05:15 107 H 27 H 73/52 L 92 02/14/21 05:06 81 29 H 95 02/14/21 04:45 92/53 L 02/14/21 04:30 80 24 92/48 L 93 02/14/21 04:15 83 25 H 89/49 L 91 02/14/21 04:00 88 26 H 79/57 L 90 02/14/21 03:45 95 H 26 H 88/48 L 88 L 02/14/21 03:30 110 H 35 H 72/50 L 91 02/14/21 03:19 22 92 02/14/21 03:03 102 H 30 H 74/57 L 92 02/14/21 02:34 94 H 33 H 86/59 L 02/14/21 02:33 38.2 C H 113 H 22 65/50 L 92 PG Care Time/CCT Total # of Minutes Spent Total Time Spent with Patient: Total time spent is greater than 50% in coordination of care (as documented) at patient's floor/unit and/or counseling patient: 70 minutes with > 50% of that time spent assessing the patient, discussing goals of care with the patient and her family, addressing symptom management needs, and collaborating with the IDT Coding Level of Care Code 07109 Initial Inpt Care Lvl 3 Diagnoses Palliative care encounter Z51.5 Generalized weakness R53.1 Shortness of breath R06.02 Septic shock A41.9; R65.21 Time Spent (min) 70
--- NOTE | 2021-02-14 11:58 | CT Scan Report ---
CT SCAN OF THE ABDOMEN AND PELVIS WITHOUT CONTRAST CLINICAL HISTORY: ?Bowel Obstruction COMPARISON STUDY: January 10, 2021 TECHNIQUE: CT scan of the abdomen and pelvis was performed from the lung bases to the proximal femurs . Images are reviewed in the axial, sagittal, and coronal planes. IV contrast was not administered fo r this examination. A dose lowering technique was utilized adhering to the principles of ALARA. CT DOSE: 3543.90 mGy.cm FINDINGS: Lower chest: Interval worsening of septal thickening associated with intermixed areas of groundglass attenuation and compressive atelectasis at dependent portions of bilateral lower lobes. Liver: The unenhanced liver is normal in size with microlobulated contour mostly within its left lobe . Extension of the left lobe of the liver to the large ventral hernia, appears similar to prior study . Gallbladder: Is surgically absent. Spleen: Normal in size and attenuation. Pancreas: Atrophic. Evaluation is limited due to beam hardening artifact from patient's arms Adrenal glands: Unremarkable. Kidneys: Interval development of mild bilateral hydronephrosis and prominent perinephric stranding. R ight and left ureters are not well seen. Bowel: Loops of small and large bowel are nondilated and seen mostly within large ventral hernia. Elen endix is not well visualized. Portions of bowel loops within left hemiabdomen are not well seen due t o beam hardening artifact created by close proximity of the left lateral abdominal wall to the gantry of the CT scan. Peritoneum: No free intraperitoneal air is seen. Scattered areas of fluid collection is seen within m esentery, new since prior study. Vasculature: Abdominal aorta is normal in caliber, tortuous with scattered calcifications of its wall . Adenopathy: None. Pelvic viscera: Urinary bladder is decompressed with Deleon balloon . Possible diverticulum of urinar y bladder is seen, stable since prior. Interval development of mild fat stranding surrounding collaps ed urinary bladder. Prostate gland is slightly enlarged. Skeletal structures: Interval development of compression fracture deformity of L3 and anterior decrea se in height approximately 20%. No retropulsion of posterior fractured fragments are seen. Multilevel degenerative changes of the spine are again seen. IMPRESSION: 1. Interval worsening of atelectasis and septal thickening within bilateral lower lobes. 2. Interval development of compression fracture deformity of L3. Report will be sent to patient's un it. 3. Interval development of the mild bilateral hydronephrosis and diffuse mesenteric edema with multi ple scattered areas of fluid collection. Also perinephric stranding is seen bilaterally a new since p rior. Right and left ureters are not well seen. Differential diagnosis include pyelonephritis, howeve r above-mentioned findings could be related to liver cirrhosis and edematous state. 4. Mild interval development of fat stranding surrounding collapsed urinary bladder which might be s een in cystitis. Please correlate this findings with results of urinalysis. 5. Large ventral hernia. Extension of the abdominal viscera to the large hernia sac. 6. Cirrhotic morphology of the liver. ACT 112: Negative or not required by law. The above report was generated using voice recognition software. It may contain grammatical, syntax o r spelling errors. Electronically signed by: Madeleine Newton DO 02/14/2021 11:56 AM
[2021-02-14] MEDS ORDERED: ACETAMINOPHEN 325 MG TAB ONE (12:33)
--- NOTE | 2021-02-14 12:39 | Urology Consultation ---
Date of Consultation February 14, 2021 Assessment & Plan (1) Septic shock: (2) Acute UTI (urinary tract infection): 70yo F admitted with septic shock likely secondary to UTI/Pyelo - CT imaging and plan of care reviewed with Dr. Castillo, on-call urologist. - CTAP reviewed - Full loss of domain with massive abdominal hernia; Kidneys displaced d/t hernia; Corona catheter appears in place. - Currently afebrile - Tmax 38.2 @0233. - Labs reviewed- Wbc 17.82 and creatinine 0.97. - Urine and blood cultures pending. - Reviewed palliative care note - Based on that, appears patient does not want heroic measures and prefers to shift towards comfort focused approach. - Discussed options including continued observation and antibiotic therapy vs. possible surgical intervention with stent placement -Patient declines surgical intervention in form of indwelling stents at this time. - No intervention at this time based on patient's wishes. - Continue antibiotics and supportive care, follow cultures. - Maintain corona catheter for max drainage. - If plan changes or patient wishes to be more aggressive, we can reevaluate need for intervention at that time. - Please contact us with any further questions/concerns, urology will sign off at this time. - Discussed patients plan of care with daughter Raisa (primary contact), who is agreeable with plan. History of Present Illness Reason for Consultation: pyelonephritis, septic shock Attending Physician: Delfin Guzman MD History of Present Illness The patient is a 70-year-old female with a past medical history including DM, HTN, HLD, SBO, Ventral Hernia, Anxiety/Depression, Glaucoma, Obesity, who presented to the ED with weakness, fatigue, and a recent fall. On presentation, she was febrile, tachycardic, and hypotensive. She was admitted to the ICU for sepsis. Of note, patient with recent hospitalization from January 08 - with low back pain and hyperglycemia. She progressed to septic/hypovolemic shock and found to have a small bowel obstruction related to her large ventral hernia. Patient with large ventral hernia and multiple SBOs in the past. Urology consulted for ?pyelonephritis, septic shock. Chart review: Afebrile, BP 102/56 On 3L/min Oxymask Wbc 17.82 Hgb 10.9 Cr 0.97 Urinalysis 3+leukocytes, >30 WBC, 3+ blood, 5-10 RBC, 4+bacteria, negative nitrite Urine and blood cultures pending On IV Zosyn Continues on Levophed CTAP IMPRESSION: 1. Interval worsening of atelectasis and septal thickening within bilateral lower lobes. 2. Interval development of compression fracture deformity of L3. Report will be sent to patient's unit. 3. Interval development of the mild bilateral hydronephrosis and diffuse mesenteric edema with multiple scattered areas of fluid collection. Also perinephric stranding is seen bilaterally a new since prior. Right and left ureters are not well seen. Differential diagnosis include pyelonephritis, ho wever above-mentioned findings could be related to liver cirrhosis and edematous state. 4. Mild interval development of fat stranding surrounding collapsed urinary bladder which might be seen in cystitis. Please correlate this findings with results of urinalysis. 5. Large ventral hernia. Extension of the abdominal viscera to the large hernia sac. 6. Cirrhotic morphology of the liver. Pt examined at bedside. Exam limited due to patient status. Patient is lethargic, but wakened to verbal stimuli. Answered some questions. Denied back, flank, and suprapubic pain. Tolerating corona catheter with minimal bother. Corona catheter intact, draining clear, yellow urine with sediment noted in tubing. Denies hx of urological issues. Denied CP/SOB. Has been NPO. Offered no additional complaints during exam. Allergies Allergy/AdvReac Type Severity Reaction Status Date / Time latex Allergy Severe 2ND DEGREE Verified 02/14/21 02:51 BURN FROM BANDAGE adhesive Allergy Intermediate RASH Verified 02/14/21 02:51 Home Medications Medication Instructions Recorded Confirmed Type aspirin 81 mg tablet,delayed 81 mg PO QPM 10/30/18 02/14/21 History release (Aspirin Low Dose) atorvastatin 80 mg tablet (Lipitor) 80 mg PO HS 10/30/18 02/14/21 History cholecalciferol (vitamin D3) 50 2,000 unit PO QAM 10/30/18 02/14/21 History mcg (2,000 unit) capsule (Vitamin D3) gabapentin 300 mg capsule 300 mg PO TID 10/30/18 02/14/21 History quetiapine 50 mg tablet (Seroquel) 50 mg PO HS 12/01/19 02/14/21 History cyanocobalamin (vitamin B-12) 1,000 mcg IM MONTHLY 01/08/21 02/14/21 History 1,000 mcg/mL injection solution sitagliptin 100 mg tablet (Januvia) 100 mg PO QPM 01/08/21 02/14/21 History insulin glargine 100 unit/mL (3 25 unit SC QAM #15 ml 01/22/21 02/14/21 Rx mL) subcutaneous pen (Lantus Solostar U-100 Insulin) metformin 500 mg tablet 500 mg PO DAILY #30 tab 01/22/21 02/14/21 Rx lisinopril 20 mg tablet 20 mg PO DAILY 02/14/21 02/14/21 History Patient History Medical History (Updated 02/14/21 @ 11:41 by CHARLOTTE Rangel) Anxiety Chronic obstructive pulmonary disease Complicated UTI (urinary tract infection) Depression Diabetes mellitus, type 2 NIDDM Glaucoma WELL CONTROLLED H/O defect LEFT ARM Hyperlipidemia Hypertension Hyponatremia Palliative care encounter Peripheral neuropathy BILATERAL FEET Shortness of breath Temporomandibular joint disorder NO PROBLEMS RECENTLY. Surgical History History of appendectomy History of cholecystectomy History of colonoscopy History of incision and drainage UMBILICAL ABSCESS History of total shoulder replacement RIGHT Hx of umbilical hernia repair X4 -- WEARS SUPPORT BAND DAILY S/P JALIL-BSO S/P tonsillectomy and adenoidectomy Family History Mother Diabetes mellitus, type 2 Aunt Diabetes mellitus, type 2 Social History Smoking Status: Former smoker Tobacco Type: Cigarettes Cigarettes Per Day: 2 PPD X 50 YEARS AGO; Second Hand Exposure: Yes; Hx Alcohol Use: No Hx Substance Use: No Preferred Language: Bulgarian Communication Ability: Unable Motor Scooter Mechanic Required: No Beliefs That Will Affect Care: None marital status: Current Living Situation: Spouse current occupational status: retired Feels Safe at Home: Yes Assistive Devices: Oxygen - at Night, Walker and Wheelchair Review of Systems Constitutional: as per Subjective / HPI Respiratory: as per Subjective / HPI Cardiovascular: no chest pain and no dyspnea Gastrointestinal: as per Subjective / HPI Genitourinary: as per Subjective / HPI Musculoskeletal: no problem reported Integumentary: no problem reported Neurologic: as per Subjective / HPI Psychiatric: as per Subjective / HPI Hematologic / Lymphatic: no problem reported Allergy / Immunological: no problem reported Physical Exam Constitutional: + ill appearing Lethargic ENMT: Mouth: + dry oral mucous membranes Respiratory: no labored breathing On 3L/min Oxymask Gastrointestinal (Abdomen): Percussion/Palpation: abdomen soft; abdomen nontender and no guarding Musculoskeletal: Head/Neck/Chest: normocephalic Skin: No visible rashes or lesions to exposed skin. Neurologic: moves all extremities Psychiatric: Orientation: oriented to person and cooperative Genitourinary: Corona catheter intact Results & Data ([facility]) Vital Signs (Past 12 Hours) Vital Signs Temp Pulse Pulse Resp BP BP Pulse Ox 02/14/21 11:35 132/67 02/14/21 11:05 152/91 H 02/14/21 11:02 68 17 152/91 H 100 02/14/21 10:02 60 18 118/54 L 98 02/14/21 09:33 70 17 103/35 L 94 02/14/21 09:31 99/36 L 02/14/21 09:02 70 19 91/45 L 97 02/14/21 08:48 76/34 L 02/14/21 08:01 70 19 103/51 L 96 02/14/21 08:00 36.7 C 02/14/21 07:07 94 H 02/14/21 07:06 36.7 C 70 16 106/61 96 02/14/21 06:16 36.8 C 02/14/21 06:00 77 21 93/57 L 98 02/14/21 05:45 94 H 21 104/60 98 02/14/21 05:30 76 20 98/58 L 92 02/14/21 05:15 107 H 27 H 73/52 L 92 02/14/21 05:06 81 29 H 95 02/14/21 04:45 92/53 L 02/14/21 04:30 80 24 92/48 L 93 02/14/21 04:15 83 25 H 89/49 L 91 02/14/21 04:00 88 26 H 79/57 L 90 02/14/21 03:45 95 H 26 H 88/48 L 88 L 02/14/21 03:30 110 H 35 H 72/50 L 91 02/14/21 03:19 22 92 02/14/21 03:03 102 H 30 H 74/57 L 92 02/14/21 02:34 94 H 33 H 86/59 L 02/14/21 02:33 38.2 C H 113 H 22 65/50 L 92 PG Care Time/CCT Total # of Minutes Spent Total Time Spent with Patient: Total time spent is greater than 50% in coordination of care (as documented) at patient's floor/unit and/or counseling patient: Coding Level of Care Code 26733 Initial Inpt Care Lvl 2 Diagnoses Septic shock A41.9; R65.21 Acute UTI (urinary tract infection) N39.0
--- NOTE | 2021-02-14 12:44 | History & Physical Bridge Note ---
Date of Service February 14, 2021 History & Physical Bridge Note I have examined the patient, reviewed the History & Physical and in the interval since the performance of the History & Physical I have noted the following changes of clinical significance: no changes noted Seen this AM. Remained hypotensive on Levophed (85/75). Continue abx per admitting provider and ICU team. Continue to look for source with urinary our most likely culprit.
[2021-02-14] MEDS ORDERED: PIPERACILLIN/TAZOBACTAM 4.5 GM in DEXTROSE 5% 100 ML IV SCH (13:00)
[2021-02-14] MEDS ORDERED: fentaNYL citrate 100 MCG/2 ML VIAL IV ONE (13:01)
[2021-02-14] MEDS: PIPERACILLIN/TAZOBACTAM 4.5 GM in 0.9 % SODIUM CHLORIDE 100 ML IV SCH ×2 (13:12→20:38)
[2021-02-14] MEDS ORDERED: ALBUMIN 5% 250 ML IV ONE (14:16)
--- NOTE | 2021-02-14 16:26 | Electrocardiogram Report ---
Test Reason : Blood Pressure : / mmHG Vent. Rate : 099 BPM Atrial Rate : 099 BPM P-R Int : 156 ms QRS Dur : 140 ms QT Int : 416 ms P-R-T Axes : 049 126 -07 degrees QTc Int : 533 ms Normal sinus rhythm Right bundle branch block Abnormal ECG When compared with ECG of 10-JAN-2021 08:24, T wave inversion no longer evident in Lateral leads Confirmed by Antony Verdin ([id number]) on 02/14/2021 4:26:30 PM Referred By: REFERRED SELF Confirmed By:Antony Verdin
[2021-02-14] MEDS: QUEtiapine FUMARATE 25 MG TABLET PO SCH (20:39)
[2021-02-15 05:40] LABS: Basophils # (auto) 0.02 K/uL (0-0.2); Basophils % (auto) 0.2 %; Eosinophils # (auto) 0.04 K/uL (0-0.5); Eosinophils % (auto) 0.4 %; Hematocrit (blood only) 32.6 % (37-47); Hemoglobin 10.6 g/dL (12.0-16.0); Immature Granulocytes # (auto) 0.02 K/uL (0.00-0.02); Immature Granulocytes % (auto) 0.2 %; Lymphocytes # (auto) 0.76 K/uL (1.2-3.4); Lymphocytes % (auto) 7.3 %; Mean Corpuscular Hemoglobin 31.2 pg (25-34); Mean Corpuscular Hgb Conc 32.5 g/dL (32-36); Mean Corpuscular Volume 95.9 fL (80-100); Mean Platelet Volume 8.6 fL (7.4-10.4); Monocytes # (auto) 1.45 K/uL (0.11-0.59); Monocytes % (auto) 13.9 %; Neutrophils # (auto) 8.13 K/uL (1.4-6.5); Platelet Count 408 K/uL (130-400); RDW Coefficient of Variation 15.5 % (11.5-14.5); RDW Standard Deviation 54.7 fL (36.4-46.3); White Blood Count 10.42 K/uL (4.8-10.8)
[2021-02-15] MEDS: PIPERACILLIN/TAZOBACTAM 4.5 GM in 0.9 % SODIUM CHLORIDE 100 ML IV SCH ×3 (05:43→19:40)
[2021-02-15 06:14] LABS: BUN Creatinine Ratio 27.9 (10-20); Calcium 8.1 mg/dl (8.5-10.1); Creatinine Clr Calc Pharmacy 95.8 ml/min; Est GFR (African American) 105.5 ml/min; Magnesium 2.1 mg/dl (1.8-2.4); Phosphorus 2.5 mg/dl (2.5-4.9); Potassium 3.6 mmol/L (3.5-5.1)
[2021-02-15] MEDS: INSULIN ASPART 100 UNITS/ML 3 ML PEN SC SCH ×4 (07:15→21:39)
[2021-02-15] MEDS: POTASSIUM CHLORIDE / WTR 10 MEQ/100 ML PLCT IV SCH ×2 (07:53→10:08)
[2021-02-15] MEDS: NOREPINEPHRINE/D5W 8 MG/508 ML BAG IV SCH ×2 (07:54→10:10)
[2021-02-15] MEDS: ENOXAPARIN INJ 40 MG/0.4 ML SYR SQ SCH (08:16)
[2021-02-15] MEDS: PANTOprazole 40 MG TAB PO SCH (08:17)
[2021-02-15] MEDS: GABAPENTIN 300 MG CAP PO SCH ×3 (08:17→19:40)
[2021-02-15] MEDS: LACTATED RINGER'S 1,000 ML IV SCH (10:10)
--- NOTE | 2021-02-15 10:13 | Consultation ---
Date of Consultation February 15, 2021 Assessment & Plan (1) Back pain: Patient has acute on chronic lower back pain with recent fall. Possible L3 compression fracture seen on abdominal/pelvic CT. This is difficult to visualize on CT scan. Would recommend more localized imaging to include a lumbar CT scan without contrast for better visualization of the L3 area. If she in fact has an acute L3 compression fracture, she is a very poor surgical candidate in light of her acute medical comorbidities. She is also a poor candidate for bracing both due to her body habitus as well as her acute/chronic respiratory issues. Continue with pain control. Ambulate ad jazmin. Dr. Smith has reviewed this patients case/imaging and agrees with above plan. Thank you for this consult. Supervising Physician Co-Signing Physician Notes Dr. Cuco Smith History of Present Illness Reason for Consultation: Possible L3 compression fracture Attending Physician: Jerry Valiente, DO History of Present Illness This is a pleasant 70-year-old female that we are asked to see in consultation regarding a possible L3 compression fracture diagnosed on abdominal/pelvic CT. Patient states she has had chronic pain for many many months in her upper lumbar region. It became exacerbated after a fall recently. She is a bit confused therefore somewhat of a difficult historian. She has recently been admitted due to septic shock with uncontrolled hyperglycemia, a UTI, metabolic encephalopathy, COPD with home O2 amongst other multiple medical comorbidities. She states at home she for the most part is nonambulatory. If she does ambulate, it is with the assistance of a walker. Denies radicular leg pain. At rest she has no back pain. With any type of movement or changing positions this exacerbates her symptoms. She denies taking any medication at home for pain control. Allergies Allergy/AdvReac Type Severity Reaction Status Date / Time latex Allergy Severe 2ND DEGREE Verified 02/14/21 02:51 BURN FROM BANDAGE adhesive Allergy Intermediate RASH Verified 02/14/21 02:51 Home Medications Medication Instructions Recorded Confirmed Type aspirin 81 mg tablet,delayed 81 mg PO QPM 10/30/18 02/14/21 History release (Aspirin Low Dose) atorvastatin 80 mg tablet (Lipitor) 80 mg PO HS 10/30/18 02/14/21 History cholecalciferol (vitamin D3) 50 2,000 unit PO QAM 10/30/18 02/14/21 History mcg (2,000 unit) capsule (Vitamin D3) gabapentin 300 mg capsule 300 mg PO TID 10/30/18 02/14/21 History quetiapine 50 mg tablet (Seroquel) 50 mg PO HS 12/01/19 02/14/21 History cyanocobalamin (vitamin B-12) 1,000 mcg IM MONTHLY 01/08/21 02/14/21 History 1,000 mcg/mL injection solution sitagliptin 100 mg tablet (Januvia) 100 mg PO QPM 01/08/21 02/14/21 History insulin glargine 100 unit/mL (3 25 unit SC QAM #15 ml 01/22/21 02/14/21 Rx mL) subcutaneous pen (Lantus Solostar U-100 Insulin) metformin 500 mg tablet 500 mg PO DAILY #30 tab 01/22/21 02/14/21 Rx lisinopril 20 mg tablet 20 mg PO DAILY 02/14/21 02/14/21 History Patient History Medical History Anxiety Chronic obstructive pulmonary disease Complicated UTI (urinary tract infection) Depression Diabetes mellitus, type 2 NIDDM Glaucoma WELL CONTROLLED H/O defect LEFT ARM Hyperlipidemia Hypertension Hyponatremia Palliative care encounter Peripheral neuropathy BILATERAL FEET Shortness of breath Temporomandibular joint disorder NO PROBLEMS RECENTLY. Surgical History History of appendectomy History of cholecystectomy History of colonoscopy History of incision and drainage UMBILICAL ABSCESS History of total shoulder replacement RIGHT Hx of umbilical hernia repair X4 -- WEARS SUPPORT BAND DAILY S/P JALIL-BSO S/P tonsillectomy and adenoidectomy Family History Mother Diabetes mellitus, type 2 Aunt Diabetes mellitus, type 2 Social History Smoking Status: Former smoker Tobacco Type: Cigarettes Cigarettes Per Day: 2 PPD X 50 YEARS AGO; Second Hand Exposure: Yes; Hx Alcohol Use: No Hx Substance Use: No Preferred Language: Khmer Communication Ability: Unable Dementia Program Director Required: No Beliefs That Will Affect Care: None marital status: Current Living Situation: Spouse current occupational status: retired Feels Safe at Home: Yes Assistive Devices: Oxygen - at Night, Walker and Wheelchair Review of Systems Review of Systems: See HPI Physical Exam Physical Exam: Patient is seen in bed 108. She is cooperative. I am unable to evaluate her lumbar spine. Motor testing bilateral lower extremities is 5 5 bilateral EHL, dorsiflexion, plantarflexion, quadriceps, hamstrings. Negative logrolling bilaterally. Constitutional: well developed Eyes: normal visual rodgers by confrontation ENMT: external ear and nose normal, oropharynx normal Neck: normal visual inspection Respiratory: + labored breathing and + uses accessory muscles Cardiovascular: Extremities: normal capillary refill Gastrointestinal (Abdomen): Inspection/Auscultation: abdomen normal to inspection Musculoskeletal: Extremities: extremities normal to inspection and strength 5/5 throughout Skin: no rashes, warm and dry Neurologic: normal touch/pain/proprioception and moves all extremities Psychiatric: Orientation: oriented x 3 Results & Data ([facility]) Vital Signs (Past 12 Hours) Vital Signs Temp Pulse Resp BP Pulse Ox 02/15/21 09:32 76 29 H 137/72 94 02/15/21 09:18 76 35 H 123/77 94 02/15/21 09:02 73 29 H 130/85 96 02/15/21 08:47 76 27 H 144/84 H 95 02/15/21 08:33 78 31 H 120/80 96 02/15/21 08:18 73 28 H 142/75 H 94 02/15/21 08:03 75 28 H 144/78 H 93 02/15/21 07:48 78 33 H 147/83 H 94 02/15/21 07:33 89 29 H 132/80 94 02/15/21 07:17 79 29 H 142/85 H 94 02/15/21 07:03 79 26 H 141/82 H 94 02/15/21 06:48 79 28 H 143/80 H 95 02/15/21 06:33 80 34 H 137/76 93 02/15/21 06:17 102 H 30 H 135/83 94 02/15/21 06:00 36.4 C L 87 21 02/15/21 05:45 79 26 H 90 02/15/21 05:30 81 26 H 92 02/15/21 05:25 82 28 H 94 02/15/21 05:03 80 21 135/64 94 02/15/21 04:52 79 26 H 126/68 94 02/15/21 04:33 95 H 26 H 135/59 L 93 02/15/21 04:22 84 27 H 132/62 92 02/15/21 04:03 82 26 H 113/66 95 02/15/21 04:00 37.3 C 02/15/21 03:52 83 23 132/65 95 02/15/21 03:32 86 25 H 122/66 96 02/15/21 03:22 95 H 26 H 118/69 94 02/15/21 03:02 78 26 H 109/76 94 02/15/21 02:52 83 15 76/63 L 93 02/15/21 02:33 88 27 H 120/91 93 02/15/21 02:22 86 28 H 135/64 92 02/15/21 02:03 87 32 H 120/56 L 92 02/15/21 01:53 99 H 32 H 129/87 93 02/15/21 01:33 91 H 31 H 148/71 H 94 02/15/21 01:22 99 H 29 H 133/72 90 02/15/21 01:03 87 27 H 151/63 H 91 02/15/21 00:53 93 H 24 166/69 H 90 02/15/21 00:32 96 H 27 H 148/77 H 92 02/15/21 00:23 95 H 26 H 154/78 H 96 02/15/21 00:10 37.0 C 02/15/21 00:03 91 H 22 162/85 H 89 L 02/14/21 23:53 96 H 26 H 151/113 H 88 L 02/14/21 23:33 102 H 23 162/93 H 96 02/14/21 23:23 88 31 H 155/114 H 96 02/14/21 23:03 90 24 146/87 H 94 02/14/21 22:53 86 30 H 114/78 95 02/14/21 22:33 82 27 H 148/78 H 95 02/14/21 22:23 79 21 149/85 H 97 Diagnostic Findings [facility], [id number] CT Scan Report Patient: ANABEL VACA PAdmit Date: 02/14/21#: [id number]: [facility]ALTHAcct ID:[id number]: Date: [address] [place] [address] Zip: [place], [place] [address]Mme: 70Location: 1ESex: FRoom/Bed: [id number] Phy: Delfin Guzman, MDDiagnosis: HYPOTENSION, FALLSPri Phy: Kristal Pham CRNPService Date: 02/14/21Fam Phy:Interpreting Phy: Madeleine Newton DOAdmit Phy: Syl Gold D.O. Ordering Phy: Syl Gold D.O. cc: ~ CT SCAN OF THE ABDOMEN AND PELVIS WITHOUT CONTRAST CLINICAL HISTORY: ?Bowel Obstruction COMPARISON STUDY: January 10, 2021 TECHNIQUE: CT scan of the abdomen and pelvis was performed from the lung bases to the proximal femurs. Images are reviewed in the axial, sagittal, and coronal planes. IV contrast was not administered for this examination. A dose lowering technique was utilized adhering to the principles of ALARA. CT DOSE: 3543.90 mGy.cm FINDINGS: Lower chest: Interval worsening of septal thickening associated with intermixed areas of groundglass attenuation and compressive atelectasis at dependent portions of bilateral lower lobes. Liver: The unenhanced liver is normal in size with microlobulated contour mostly within its left lobe. Extension of the left lobe of the liver to the large ventral hernia, appears similar to prior study. Gallbladder: Is surgically absent. Spleen: Normal in size and attenuation. Pancreas: Atrophic. Evaluation is limited due to beam hardening artifact from patient's arms Adrenal glands: Unremarkable. Kidneys: Interval development of mild bilateral hydronephrosis and prominent per inephric stranding. Right and left ureters are not well seen. Bowel: Loops of small and large bowel are nondilated and seen mostly within large ventral hernia. Appendix is not well visualized. Portions of bowel loops within left hemiabdomen are not well seen due to beam hardening artifact created by close proximity of the left lateral abdominal wall to the gantry of the CT scan. Peritoneum: No free intraperitoneal air is seen. Scattered areas of fluid collection is seen within mesentery, new since prior study. Vasculature: Abdominal aorta is normal in caliber, tortuous with scattered calcifications of its wall. Adenopathy: None. Pelvic viscera: Urinary bladder is decompressed with Deleon balloon . Possible diverticulum of urinary bladder is seen, stable since prior. Interval developme nt of mild fat stranding surrounding collapsed urinary bladder. Prostate gland is slightly enlarged. Skeletal structures: Interval development of compression fracture deformity of L3 and anterior decrease in height approximately 20%. No retropulsion of posterior fractured fragments are seen. Multilevel degenerative changes of the spine are again seen. IMPRESSION: 1. Interval worsening of atelectasis and septal thickening within bilateral lower lobes. 2. Interval development of compression fracture deformity of L3. Report will be sent to patient's unit. 3. Interval development of the mild bilateral hydronephrosis and diffuse mesenteric edema with multiple scattered areas of fluid collection. Also perinephric stranding is seen bilaterally a new since prior. Right and left ureters are not well seen. Differential diagnosis include pyelonephritis, however above-mentioned findings could be related to liver cirrhosis and edematous state. 4. Mild interval development of fat stranding surrounding collapsed urinary bladder which might be seen in cystitis. Please correlate this findings with results of urinalysis. 5. Large ventral hernia. Extension of the abdominal viscera to the large hernia sac. 6. Cirrhotic morphology of the liver. ACT 112: Negative or not required by law. The above report was generated using voice recognition software. It may contain grammatical, syntax or spelling errors. Electronically signed by: Madeleine Newton DO 02/14/2021 11:56 AM Dictated: 02/14/21 1138Transcribed: 02/14/21 1138 (1) Back pain Back pain laterality: midline Back pain location: low back pain Chronicity: chronic Sciatica presence: without sciatica Qualified Code(s): M54.5 - Low back pain; G89.29 - Other chronic pain
[2021-02-15] MEDS ORDERED: INSULIN GLARGINE SOLOSTAR 100 UNITS/ML 3 ML PEN SC ONE (10:15)
--- NOTE | 2021-02-15 10:38 | Critical Care Progress Note ---
Date of Service February 15, 2021 Assessment & Plan (1) Septic shock: Plan: 70-year-old female with a history of uncontrolled diabetes mellitus, hypertension, hyperlipidemia and morbid obesity presenting to the hospital due to altered mental status and septic shock. Neurologic: Encephalopathy resolving. Pulmonary: Mild hypoxia. Likely related to atelectasis. Cardiovascular: Hypotension is resolving. Off pressors. Likely septic in origin. Gastrointestinal: Advance diet as tolerated. Renal: No significant issues at present. Infectious disease: Urine and blood cultures positive for gram-negative rods. Continue Zosyn. No intervention per urology. Orthopedics: L3 compression fracture. Continue pain control. Orthopedics consulted. Hematologic: Anemia of chronic disease. No other significant issues. Endocrine: Pharmacy assisting in management of insulin. VTE prophylaxis: Lovenox CODE STATUS: DNR/DNI. Palliative care on board. Disposition: Transfer out to the floor to telemetry. (2) Pneumonia: (3) Hypoxia: (4) Complicated UTI (urinary tract infection): (5) Hyponatremia: Admission and Anticipated Discharge Date Admission Date: February 14, 2021 Subjective Patient seen and examined today. Much more awake and alert. Weaned off Levophed. She has some mild abdominal pain which is chronic. Review of Systems Review of Systems: 04/14 point ROS negative unless noted elsewhere Physical Exam Physical Exam: Constitutional: Patient appears to be of their stated age. Patient is in no apparent distress. Patient is well-developed. Eyes: Pupils are equal round and reactive to light. Conjunctivae are normal. Anicteric sclera. Ears nose, mouth and throat: Mallampati class 2. Normal posterior oropharynx. Uvula is midline. Neck: Trachea is midline. Visual inspection is normal. Respiratory: Clear to auscultation bilaterally. No use of accessory muscles. No significant clubbing noted. Cardiovascular: Regular rate and rhythm. No murmurs. +Edema Gastrointestinal: Mild tenderness to palpation. Musculoskeletal: No cyanosis. Patient is able to move all extremities. Strength is 5 out of 5 in the upper and lower extremities. Skin: No rashes, warm dry and intact. Neurologic: No obvious focal neurological deficits seen. Psychiatric: Alert and oriented x3 with a euthymic affect. Results & Data Results & Data ([facility]) Vital Signs (Past 12 Hours) Vital Signs Temp Pulse Resp BP Pulse Ox 02/15/21 09:32 76 29 H 137/72 94 08/17/21 09:18 76 35 H 123/77 94 02/15/21 09:02 73 29 H 130/85 96 02/15/21 08:47 76 27 H 144/84 H 95 02/15/21 08:33 78 31 H 120/80 96 02/15/21 08:18 73 28 H 142/75 H 94 02/15/21 08:03 75 28 H 144/78 H 93 02/15/21 07:48 78 33 H 147/83 H 94 02/15/21 07:33 89 29 H 132/80 94 02/15/21 07:17 79 29 H 142/85 H 94 02/15/21 07:03 79 26 H 141/82 H 94 02/15/21 06:48 79 28 H 143/80 H 95 02/15/21 06:33 80 34 H 137/76 93 02/15/21 06:17 102 H 30 H 135/83 94 02/15/21 06:00 97.5 F L 87 21 02/15/21 05:45 79 26 H 90 02/15/21 05:30 81 26 H 92 02/15/21 05:25 82 28 H 94 02/15/21 05:03 80 21 135/64 94 02/15/21 04:52 79 26 H 126/68 94 02/15/21 04:33 95 H 26 H 135/59 L 93 02/15/21 04:22 84 27 H 132/62 92 02/15/21 04:03 82 26 H 113/66 95 02/15/21 04:00 99.1 F 02/15/21 03:52 83 23 132/65 95 02/15/21 03:32 86 25 H 122/66 96 02/15/21 03:22 95 H 26 H 118/69 94 02/15/21 03:02 78 26 H 109/76 94 02/15/21 02:52 83 15 76/63 L 93 02/15/21 02:33 88 27 H 120/91 93 02/15/21 02:22 86 28 H 135/64 92 02/15/21 02:03 87 32 H 120/56 L 92 02/15/21 01:53 99 H 32 H 129/87 93 02/15/21 01:33 91 H 31 H 148/71 H 94 02/15/21 01:22 99 H 29 H 133/72 90 02/15/21 01:03 87 27 H 151/63 H 91 02/15/21 00:53 93 H 24 166/69 H 90 02/15/21 00:32 96 H 27 H 148/77 H 92 02/15/21 00:23 95 H 26 H 154/78 H 96 02/15/21 00:10 98.6 F 02/15/21 00:03 91 H 22 162/85 H 89 L 02/14/21 23:53 96 H 26 H 151/113 H 88 L 02/14/21 23:33 102 H 23 162/93 H 96 02/14/21 23:23 88 31 H 155/114 H 96 02/14/21 23:03 90 24 146/87 H 94 02/14/21 22:53 86 30 H 114/78 95 Vital signs, labs and imaging personally reviewed Coding Level of Care Code 71674 Subseq Hosp Care Lvl 3 Diagnoses Septic shock A41.9; R65.21 Pneumonia J18.9 Laterality: right Lung location: lower lobe of lung Pneumonia type: due to unspecified organism Hypoxia R09.02 Complicated UTI (urinary tract infection) N39.0 Hyponatremia E87.1 (1) Pneumonia Laterality: right Lung location: lower lobe of lung Pneumonia type: due to unspecified organism Qualified Code(s): J18.9 - Pneumonia, unspecified organism
--- NOTE | 2021-02-15 12:04 | CT Scan Report ---
LUMBAR SPINE CT CT DOSE: 961.51 mGy.cm HISTORY: Low back pain. eval for L3 fracture s/p fall TECHNIQUE: Multiaxial CT images of the lumbar spine were performed and reformatted in the sagittal an d coronal plane without the use of contrast. A dose lowering technique was utilized adhering to the principles of ALARA. COMPARISON: Abdomen and pelvis CT 02/14/2021. FINDINGS: There is an acute mild superior endplate compression fracture at L3 demonstrating up to 10% loss of height. No associated retropulsion. No additional fractures identified within the lumbar spi ne. The visualized sacrum is intact. Mild disc space narrowing at L4-5 and L5-S1. Mild dextroscoliosi s of the lumbar spine. There is also mild disc space narrowing at L3-L4. Old nonunited right L2 trans verse process fracture. Mild paravertebral edema at the L3 vertebral body due to the fracture. Modera te central canal narrowing at L3-L4 and L4-5 due to the disc bulge and facet hypertrophy. IMPRESSION: 1. An acute mild superior endplate compression fracture at L3. No associated retropulsion. 2. Degenerative changes as described above. ACT 112: Negative or not required by law. Electronically signed by: Mauri Guzman M.D. 02/15/2021 12:02 PM
--- NOTE | 2021-02-15 12:06 | Pharmacy Report ---
Pharmacy Glycemic Short Note 2 - Date of Service February 15, 2021 - Glycemic Short BSG Results (Last 24 hours): 02/14/21 02/14/21 02/14/21 12:58 14:00 15:00 Glucose POC Glucose 170 H 152 H 136 H 02/14/21 02/14/21 02/14/21 16:00 17:56 20:00 Glucose POC Glucose 139 H 141 H 142 H 02/14/21 02/14/21 02/14/21 22:05 23:01 23:56 Glucose POC Glucose 128 H 113 H 115 H 02/15/21 02/15/21 02/15/21 01:02 01:05 01:58 Glucose POC Glucose 153 H 146 H 149 H 02/15/21 02/15/21 02/15/21 03:03 04:03 05:00 Glucose POC Glucose 148 H 130 H 130 H 02/15/21 02/15/21 02/15/21 05:13 05:59 07:13 Glucose 131 H POC Glucose 131 H 125 H 02/15/21 02/15/21 02/15/21 08:13 08:58 10:13 Glucose POC Glucose 131 H 143 H 143 H 02/15/21 10:53 Glucose POC Glucose 145 H OUTPATIENT ANTIDIABETIC REGIMEN: Prior to recent admit December 2020 * Sitagliptin * HbA1c 15.3% on 01/09/21 Changes to regimen on discharge 01/22/21 * Lantus 25 units SC daily added * Metformin 500 mg po daily added ASSESSMENT: 02/15/21 * IV insulin requirement has gradually decreased and BSG's have been well controlled in goal range. Drip currently running at only 0.9 units/hr * Discussed at ICU rounds - OK to transition * Will increase Lantus only slightly as insulin drip rate is already < 1 unit/hr and BSG's are well controlled. Will add in supplemental Lantus tonight up to 35 units the patient was requiring during previous admit while ordered a diet, depending on BSG * Anticipate ability to rapidly stop the insulin drip. * Will resume Novolog regimen as previous admit * Anticipated diet to be ordered per ICU rounds 02/14/21 * 70 yo F with uncontrolled T2DM recently admitted to [facility] December 2020 initially for hyperglycemia / outpatient BSG >700 but complicated by hypovolemic shock and SBO. Patient was re-admitted earlier today 02/14 for septic shock, possibly urinary source. Patient is on norepinephrine in the ICU. Intubation and central line placement planned but patient is currently refusing both * Insulin drip initiated due to severity of illness and BSG >220 mg/dL. Not DKA, not HHS. Continue drip for now per Dr. Nova. Discussed at ICU rounds - OK to start low-dose Lantus to help ease *eventual* transition off of the drip, but not as an attempt to transition off today * Near the end of her recent admission, regimen was as follows: Lantus 35 units SC qAM, Novolog ACHS goal 110-140 mg/dL, correction factor 20 mg/dL/unit, carb ratio 6 g CHO/unit while patient was ordered a diet. Anticipate ability to resume to a similar regimen in the future PLAN FOR INPATIENT GLYCEMIC CONTROL: * Hold outpatient oral diabetes medications * Insulin drip initially with 3 units IV bolus then 3 units/hr. Goal range 140- 180 mg/dL * Basal insulin * Lantus 15 units SQ x1 now * Bolus insulin * Nutritional / Prandial insulin per carb ratio per insulin drip calculator PLAN FOR DISCHARGE: * tbd. Significant changes will not likely be required as her regimen was recently changed on 01/22/21 (see above)
--- NOTE | 2021-02-15 13:23 | Hospitalist Progress Note ---
Date of Service February 15, 2021 Assessment & Plan (1) Septic shock: Plan: Patient presented with septic shock secondary to urinary tract infection with bacteremia. Blood cultures with gram-negative rods 1 out of 2 Urine culture with gram-negative rods Procalcitonin 4.04 Day #2 Zosyn IV antibiotic Lactic acid corrected to 1.0 Hypotension resolved and patient now off of Levophed We will downgrade from intensive care to telemetry and transfer patient to PCU for further monitoring (2) Hypertension: Plan: Hold antihypertensives at this time secondary to septic shock and hypotension We will evaluate daily for reinstitution of home medications (3) Hyperlipidemia: Plan: Home meds include atorvastatin Continue resuming statin tomorrow (4) Encephalopathy: Plan: CT head without any acute findings Suspect this is metabolic secondary to septic shock and infection with gram- negative rods Improving Continue treat underlying infection (5) Diabetes mellitus type 2, uncontrolled: Plan: Poorly controlled with hemoglobin A1c 15.3 in December Glycemic control consult placed. Appreciate pharmacy's input Continue to hold oral agents. We will continue basal insulin with Lantus and follow with sliding scale with NovoLog (6) Chronic respiratory failure with hypoxia: Plan: Patient on chronic supplemental oxygen at home Continue to maintain SaO2 at 90% Patient denies any shortness of breath or chest pain. (7) Lumbar compression fracture: Plan: Acute compression fracture at L3 Patient is now more alert and oriented. Will prescribe oxycodone 5 mg p.o. ev shyann 4 hours for pain Tylenol also available Orthospine consulted Poor surgical candidate as well as poor bracing candidate Continue conservative management (8) DVT prophylaxis: Plan: Enoxaparin 40 mg daily SQ Admission and Anticipated Discharge Date Admission Date: February 14, 2021 Subjective Attending: Dr. Valiente Patient seen and examined in room 101. She was admitted yesterday for septic shock with metabolic encephalopathy. She is alert and oriented. She feels much better. She was weaned off of Levophed this morning. Blood pressure is currently stable. Lactic acid corrected to 1.0 this morning. Patient is on day 2 of Zosyn. Urine culture as well as blood cultures positive for gram-negative rods. Patient complain of back pain secondary to acute L3 compression fracture. Patient denies fever, chills, sweats, rigors. No other acute complaints at this time. Review of Systems Review of Systems: All systems reviewed & are unremarkable except as noted in Subjective Physical Exam Physical Exam: GENERAL : No acute distress. Patient appears ill. EYES: No icterus, gaze conjugate. Pupils equal round reactive to light. Contusion around right eye. NOSE: No evidence of epistaxis MOUTH: No lesions or candidiasis. Mucosa moist. NECK: Supple LUNGS: Faint crackles in bilateral bases. No bronchospasm. HEART: Regular, rate controlled ABDOMEN: Soft, NT, ND, BS Present EXTREMITIES: No LE edema, pedal pulses intact and equal bilaterally. NEURO: A&OX3 Results & Data Results & Data ([facility]) Vital Signs (Past 12 Hours) Vital Signs Temp Pulse Resp BP Pulse Ox 02/15/21 11:15 71 20 93 02/15/21 11:11 72 29 H 02/15/21 10:48 72 26 H 109/71 93 02/15/21 10:32 36.7 C 75 27 H 123/70 93 02/15/21 10:18 89 27 H 124/68 93 02/15/21 10:02 77 24 122/87 94 02/15/21 09:48 80 30 H 128/66 93 02/15/21 09:32 76 29 H 137/72 94 02/15/21 09:18 76 35 H 123/77 94 02/15/21 09:02 73 29 H 130/85 96 02/15/21 08:47 76 27 H 144/84 H 95 02/15/21 08:33 78 31 H 120/80 96 02/15/21 08:18 73 28 H 142/75 H 94 02/15/21 08:03 75 28 H 144/78 H 93 02/15/21 08:00 77 02/15/21 07:48 78 33 H 147/83 H 94 02/15/21 07:33 89 29 H 132/80 94 02/15/21 07:17 79 29 H 142/85 H 94 02/15/21 07:03 79 26 H 141/82 H 94 02/15/21 06:48 79 28 H 143/80 H 95 02/15/21 06:33 80 34 H 137/76 93 02/15/21 06:17 102 H 30 H 135/83 94 02/15/21 06:00 36.4 C L 87 21 02/15/21 05:45 79 26 H 90 02/15/21 05:30 81 26 H 92 02/15/21 05:25 82 28 H 94 02/15/21 05:03 80 21 135/64 94 02/15/21 04:52 79 26 H 126/68 94 02/15/21 04:33 95 H 26 H 135/59 L 93 02/15/21 04:22 84 27 H 132/62 92 02/15/21 04:03 82 26 H 113/66 95 02/15/21 04:00 37.3 C 02/15/21 03:52 83 23 132/65 95 02/15/21 03:32 86 25 H 122/66 96 02/15/21 03:22 95 H 26 H 118/69 94 02/15/21 03:02 78 26 H 109/76 94 02/15/21 02:52 83 15 76/63 L 93 02/15/21 02:33 88 27 H 120/91 93 02/15/21 02:22 86 28 H 135/64 92 02/15/21 02:03 87 32 H 120/56 L 92 02/15/21 01:53 99 H 32 H 129/87 93 02/15/21 01:33 91 H 31 H 148/71 H 94 Laboratory Results 02/15/21 05:13 02/15/21 05:13 Diagnostic Findings LUMBAR SPINE CT CT DOSE: 961.51 mGy.cm HISTORY: Low back pain. eval for L3 fracture s/p fall TECHNIQUE: Multiaxial CT images of the lumbar spine were performed and reformatted in the sagittal and coronal plane without the use of contrast. A dose lowering technique was utilized adhering to the principles of ALARA. COMPARISON: Abdomen and pelvis CT 02/14/2021. FINDINGS: There is an acute mild superior endplate compression fracture at L3 demonstrating up to 10% loss of height. No associated retropulsion. No add itional fractures identified within the lumbar spine. The visualized sacrum is intact. Mild disc space narrowing at L4-5 and L5-S1. Mild dextroscoliosis of the lumbar spine. There is also mild disc space narrowing at L3-L4. Old nonunited right L2 transverse process fracture. Mild paravertebral edema at the L3 vertebral body due to the fracture. Moderate central canal narrowing at L3-L4 and L4-5 due to the disc bulge and facet hypertrophy. IMPRESSION: 1. An acute mild superior endplate compression fracture at L3. No associated retropulsion. 2. Degenerative changes as described above. ACT 112: Negative or not required by law. Electronically signed by: Mauri Guzman M.D. 02/15/2021 12:02 PM PG Care Time/CCT Total # of Minutes Spent Total Time Spent with Patient: Total time spent is greater than 50% in coordination of care (as documented) at patient's floor/unit and/or counseling patient: Coding Level of Care Code 42365 Subseq Hosp Care Lvl 3 Diagnoses Septic shock A41.9; R65.21 Hypertension I10 Hypertension type: essential hypertension Hyperlipidemia E78.5 Hyperlipidemia type: unspecified Encephalopathy G93.40 Diabetes mellitus type 2, uncontrolled E11.65 Chronic respiratory failure with hypoxia J96.11 DVT prophylaxis Z29.9 Lumbar compression fracture S32.000A Time Spent (min) 30 (1) Hyperlipidemia Hyperlipidemia type: unspecified Qualified Code(s): E78.5 - Hyperlipidemia, unspecified (2) Hypertension Hypertension type: essential hypertension Qualified Code(s): I10 - Essential (primary) hypertension
--- NOTE | 2021-02-15 13:27 | Orthopedic Progress Note ---
Date of Service February 15, 2021 Assessment & Plan (1) Lumbar compression fracture: Plan: Lumbar CT confirmed acute L3 compression fracture. Continue with conservative treatment. She is a poor surgical candidate as well as poor bracing candidate. Ambulate at jazmin. No lifting greater than 5 lbs. Continue with pain control although use caution due to respiratory depression concerns. Admission and Anticipated Discharge Date Admission Date: February 14, 2021 Supervising Physician Co-Signing Physician Notes Dr. Cuco Simth Subjective pt had lumbar ct Results & Data ([facility]) Vital Signs (Past 12 Hours) Vital Signs Temp Pulse Resp BP Pulse Ox 02/15/21 11:15 71 20 93 02/15/21 11:11 72 29 H 02/15/21 10:48 72 26 H 109/71 93 02/15/21 10:32 36.7 C 75 27 H 123/70 93 02/15/21 10:18 89 27 H 124/68 93 02/15/21 10:02 77 24 122/87 94 02/15/21 09:48 80 30 H 128/66 93 02/15/21 09:32 76 29 H 137/72 94 02/15/21 09:18 76 35 H 123/77 94 02/15/21 09:02 73 29 H 130/85 96 02/15/21 08:47 76 27 H 144/84 H 95 02/15/21 08:33 78 31 H 120/80 96 02/15/21 08:18 73 28 H 142/75 H 94 02/15/21 08:03 75 28 H 144/78 H 93 02/15/21 08:00 77 02/15/21 07:48 78 33 H 147/83 H 94 02/15/21 07:33 89 29 H 132/80 94 02/15/21 07:17 79 29 H 142/85 H 94 02/15/21 07:03 79 26 H 141/82 H 94 02/15/21 06:48 79 28 H 143/80 H 95 02/15/21 06:33 80 34 H 137/76 93 02/15/21 06:17 102 H 30 H 135/83 94 02/15/21 06:00 36.4 C L 87 21 02/15/21 05:45 79 26 H 90 02/15/21 05:30 81 26 H 92 02/15/21 05:25 82 28 H 94 02/15/21 05:03 80 21 135/64 94 02/15/21 04:52 79 26 H 126/68 94 02/15/21 04:33 95 H 26 H 135/59 L 93 02/15/21 04:22 84 27 H 132/62 92 02/15/21 04:03 82 26 H 113/66 95 02/15/21 04:00 37.3 C 02/15/21 03:52 83 23 132/65 95 02/15/21 03:32 86 25 H 122/66 96 02/15/21 03:22 95 H 26 H 118/69 94 02/15/21 03:02 78 26 H 109/76 94 02/15/21 02:52 83 15 76/63 L 93 02/15/21 02:33 88 27 H 120/91 93 02/15/21 02:22 86 28 H 135/64 92 02/15/21 02:03 87 32 H 120/56 L 92 02/15/21 01:53 99 H 32 H 129/87 93 02/15/21 01:33 91 H 31 H 148/71 H 94 Diagnostic Findings [facility] [address], [id number] CT Scan Report Patient: ANABEL VACA Date: 02/14/21#: [id number]: [facility] ID:[id number]: Date: [address] [place] [address] Zip: [place], [place] [address]Age: 70Location: 1ESex: FRoom/Bed: [id number] Phy: Jerry Valiente D.O.Diagnosis: HYPOTENSION, FALLSPri Phy: Kristal Pham CRNPService Date: 02/15/21Fa Phy:Interpreting Phy: Mauri Guzman MDAdmit Phy: Syl Gold D.O. Ordering Phy: Eli Ramos cc: ~ LUMBAR SPINE CT CT DOSE: 961.51 mGy.cm HISTORY: Low back pain. eval for L3 fracture s/p fall TECHNIQUE: Multiaxial CT images of the lumbar spine were performed and reformatted in the sagittal and coronal plane without the use of contrast. A dose lowering technique was utilized adhering to the principles of ALARA. COMPARISON: Abdomen and pelvis CT 02/14/2021. FINDINGS: There is an acute mild superior endplate compression fracture at L3 demonstrating up to 10% loss of height. No associated retropulsion. No additional fractures identified within the lumbar spine. The visualized sacrum is intact. Mild disc space narrowing at L4-5 and L5-S1. Mild dextroscoliosis of the lumbar spine. There is also mild disc space narrowing at L3-L4. Old nonunited right L2 transverse process fracture. Mild paravertebral edema at the L3 vertebral body due to the fracture. Moderate central canal narrowing at L3-L4 and L4-5 due to the disc bulge and facet hypertrophy. IMPRESSION: 1. An acute mild superior endplate compression fracture at L3. No associated retropulsion. 2. Degenerative changes as described above. ACT 112: Negative or not required by law. Electronically signed by: Mauri Guzman M.D. 02/15/2021 12:02 PM Dictated: 02/15/21 1157Transcribed: 02/15/21 1157
[2021-02-15] MEDS: INSULIN REGULAR 250 UNITS in SODIUM CHLORIDE 0.9% 247.5 ML IV SCH (16:45)
[2021-02-15] MEDS ORDERED: oxyCODONE HCL SOLN 5 MG/5 ML UDC PO PRN (19:14)
[2021-02-15] MEDS: ACETAMINOPHEN 325 MG TAB PO PRN (19:32)
[2021-02-15] MEDS: QUEtiapine FUMARATE 25 MG TABLET PO SCH (19:40)
[2021-02-15] MEDS ORDERED: INSULIN GLARGINE SOLOSTAR 100 UNITS/ML 3 ML PEN SC SCH (21:00)
[2021-02-16] MEDS: INSULIN ASPART 100 UNITS/ML 3 ML PEN SC SCH ×6 (00:17→21:06)
[2021-02-16] MEDS: PIPERACILLIN/TAZOBACTAM 4.5 GM in 0.9 % SODIUM CHLORIDE 100 ML IV SCH ×2 (04:40→11:56)
[2021-02-16] MEDS: ACETAMINOPHEN 325 MG TAB PO PRN ×2 (04:41→20:42)
[2021-02-16 05:31] LABS: Basophils # (auto) 0.04 K/uL (0-0.2); Basophils % (auto) 0.4 %; Eosinophils # (auto) 0.12 K/uL (0-0.5); Eosinophils % (auto) 1.2 %; Hematocrit (blood only) 32.1 % (37-47); Hemoglobin 10.2 g/dL (12.0-16.0); Immature Granulocytes # (auto) 0.02 K/uL (0.00-0.02); Immature Granulocytes % (auto) 0.2 %; Lymphocytes # (auto) 1.31 K/uL (1.2-3.4); Lymphocytes % (auto) 13.5 %; Mean Corpuscular Hemoglobin 30.5 pg (25-34); Mean Corpuscular Hgb Conc 31.8 g/dL (32-36); Mean Corpuscular Volume 96.1 fL (80-100); Mean Platelet Volume 8.5 fL (7.4-10.4); Monocytes # (auto) 0.45 K/uL (0.11-0.59); Monocytes % (auto) 4.6 %; Neutrophils # (auto) 7.79 K/uL (1.4-6.5); Neutrophils % (auto) 80.1 %; Platelet Count 384 K/uL (130-400); RDW Coefficient of Variation 15.4 % (11.5-14.5); RDW Standard Deviation 54.5 fL (36.4-46.3); Red Blood Count 3.34 M/uL (4.2-5.4); White Blood Count 9.73 K/uL (4.8-10.8)
[2021-02-16 05:54] LABS: BUN Creatinine Ratio 28.2 (10-20); Calcium 8.1 mg/dl (8.5-10.1); Creatinine Clr Calc Pharmacy 133.3 ml/min; Est GFR (African American) 117.6 ml/min; Est GFR (Non-African American) 101.5 ml/min; Magnesium 1.6 mg/dl (1.8-2.4); Potassium 3.6 mmol/L (3.5-5.1)
[2021-02-16] MEDS ORDERED: POTASSIUM PHOS 3 MMOL/1 ML INFUSION IV STA (06:36)
[2021-02-16] MEDS ORDERED: MAGNESIUM SULFATE / D5W 1 GM/100 ML BAG IV ONE (07:00)
[2021-02-16] MEDS ORDERED: POTASSIUM PHOSPHATE 21 MMOL in SODIUM CHLORIDE 0.9% 500 ML IV ONE (07:15)
[2021-02-16] MEDS: GABAPENTIN 300 MG CAP PO SCH ×3 (08:08→20:40)
[2021-02-16] MEDS: ENOXAPARIN INJ 40 MG/0.4 ML SYR SQ SCH (08:09)
[2021-02-16] MEDS ORDERED: INSULIN GLARGINE SOLOSTAR 100 UNITS/ML 3 ML PEN SC ONE (09:00)
[2021-02-16] MEDS: PANTOprazole 40 MG TAB PO SCH (09:21)
[2021-02-16] MEDS: POLYETHYLENE (MIRALAX) 17 GM PACK PO PRN (09:21)
[2021-02-16] MEDS: DOCUSATE SODIUM 100 MG CAP PO SCH ×2 (09:21→20:41)
--- NOTE | 2021-02-16 13:21 | Pharmacy Report ---
Pharmacy Glycemic Short Note 2 - Date of Service February 16, 2021 - Glycemic Short BSG Results (Last 24 hours): 02/15/21 02/15/21 02/15/21 15:06 16:07 20:55 Glucose POC Glucose 140 H 111 H 141 H 02/16/21 02/16/21 02/16/21 00:16 04:27 04:58 Glucose 146 H POC Glucose 129 H 121 H 02/16/21 02/16/21 07:27 11:32 Glucose POC Glucose 138 H 120 H OUTPATIENT ANTIDIABETIC REGIMEN: Prior to recent admit December 2020 * Sitagliptin * HbA1c 15.3% on 01/09/21 Changes to regimen on discharge 01/22/21 * Lantus 25 units SC daily added * Metformin 500 mg po daily added ASSESSMENT: 02/16/21 * Patient transitioned off of insulin infusion yesterday, received 35 units of basal insulin total * Fasting this morning 138 mg/dL- will give 30 units of lantus this morning, titrate up as needed * Continue current novolog parameters, patient has been tolerating diet, lunch BSG within goal range. 02/15/21 * IV insulin requirement has gradually decreased and BSG's have been well controlled in goal range. Drip currently running at only 0.9 units/hr * Discussed at ICU rounds - OK to transition * Will increase Lantus only slightly as insulin drip rate is already < 1 unit/hr and BSG's are well controlled. Will add in supplemental Lantus tonight up to 35 units the patient was requiring during previous admit while ordered a diet, depending on BSG * Anticipate ability to rapidly stop the insulin drip. * Will resume Novolog regimen as previous admit * Anticipated diet to be ordered per ICU rounds 02/14/21 * 70 yo F with uncontrolled T2DM recently admitted to [facility] December 2020 initially for hyperglycemia / outpatient BSG >700 but complicated by hypovolemic shock and SBO. Patient was re-admitted earlier today 02/14 for septic shock, possibly urinary source. Patient is on norepinephrine in the ICU. Intubation and central line placement planned but patient is currently refusing both * Insulin drip initiated due to severity of illness and BSG >220 mg/dL. Not DKA, not HHS. Continue drip for now per Dr. Nova. Discussed at ICU rounds - OK to start low-dose Lantus to help ease *eventual* transition off of the drip, but not as an attempt to transition off today * Near the end of her recent admission, regimen was as follows: Lantus 35 units SC qAM, Novolog ACHS goal 110-140 mg/dL, correction factor 20 mg/dL/unit, carb ratio 6 g CHO/unit while patient was ordered a diet. Anticipate ability to resume to a similar regimen in the future PLAN FOR INPATIENT GLYCEMIC CONTROL: * Hold outpatient oral diabetes medications * Basal insulin * Lantus 30 units SQ qam * Bolus insulin * Goal Range 110-140 mg/dL * Correction factor 20 mg/dl/unit * Carb Ratio 1 unit per 6 grams CHO consumed PLAN FOR DISCHARGE: * tbd. Significant changes will not likely be required as her regimen was recently changed on 01/22/21 (see above)
--- NOTE | 2021-02-16 13:32 | Hospitalist Progress Note ---
Date of Service February 16, 2021 Assessment & Plan (1) Septic shock: Plan: Patient presented with septic shock secondary to urinary tract infection with bacteremia. Blood and urine cultures with pansensitive Klebsiella pneumoniae Procalcitonin 4.04 Day #3 Zosyn IV antibiotic Lactic acid corrected to 1.0 Hypotension resolved and patient now off of Levophed Patient downgraded from intensive care to telemetry yesterday. Today we will discontinue Zosyn and de-escalate antibiotics to ceftriaxone Continue to monitor on telemetry (2) Hypertension: Plan: Antihypertensives held thus far this admission secondary to septic shock and hypotension We will reinstitute lisinopril 20 mg p.o. daily today (3) Hyperlipidemia: Plan: Resume atorvastatin (4) Encephalopathy: Plan: CT head without any acute findings Suspect this is metabolic secondary to septic shock and infection with gram- negative rods Status continues to improve Continue treat underlying infection (5) Diabetes mellitus type 2, uncontrolled: Plan: Poorly controlled with hemoglobin A1c 15.3 in December Glycemic control consult placed. Appreciate pharmacy's input Continue to hold oral agents. We will continue basal insulin with Lantus and follow with sliding scale with NovoLog (6) Chronic respiratory failure with hypoxia: Plan: Patient on chronic supplemental oxygen at home Continue to maintain SaO2 at 90% Patient denies any shortness of breath or chest pain. Continue to titrate supplemental oxygen as tolerated (7) Lumbar compression fracture: Plan: Acute compression fracture at L3 Patient is now more alert and oriented. Will prescribe oxycodone 5 mg p.o. every 4 hours for pain Tylenol also available [facility] consulted Poor surgical candidate as well as poor bracing candidate Continue conservative management Will order PT/OT evaluation treatment today. (8) DVT prophylaxis: Plan: Continue enoxaparin 40 mg daily SQ Admission and Anticipated Discharge Date Admission Date: February 14, 2021 Subjective Attending: Dr. Valiente Patient seen and examined at bedside in room 108. She is doing much better today. She is alert and oriented. She feels as though she is ready to progress to standing. She is requesting aggressive physical therapy. At this time I advised her that we will put an order in but I want to see her slowly progress first. She has asked that we come back to the bedside later this afternoon to help her sit on the edge of the bed. She denies any fever or chills. She denies any shortness of breath. She has no chest pain or tightness. Overall she feels as though she is making some progress. She has no other acute complaints. Review of Systems Review of Systems: All systems reviewed & are unremarkable except as noted in Subjective Physical Exam Physical Exam: GENERAL : No acute distress EYES: No icterus, gaze conjugate NOSE: No evidence of epistaxis MOUTH: No lesions or candidiasis NECK: Supple LUNGS: CTA B/L, no wheezes, rales or rhonchi HEART: Regular, rate controlled ABDOMEN: Soft, NT, ND, BS Present EXTREMITIES: No LE edema, pedal pulses intact NEURO: A&OX3. Limited mobility of upper extremities. Good strength to lower extremities. Able to do straight leg raises without back pain to bilateral legs. Alert and oriented and conversational. Results & Data Results & Data ([facility]) Vital Signs (Past 12 Hours) Vital Signs Temp Pulse Pulse Resp BP BP Pulse Ox 02/16/21 08:00 90 02/16/21 07:15 87 24 164/76 H 93 02/16/21 03:42 36.9 C 81 24 130/88 94 Laboratory Results 02/16/21 04:58 02/16/21 04:58 Diagnostic Findings No further diagnostic imaging PG Care Time/CCT Total # of Minutes Spent Total Time Spent with Patient: Total time spent is greater than 50% in coordination of care (as documented) at patient's floor/unit and/or counseling patient: Coding Level of Care Code 75069 Subseq Hosp Care Lvl 3 Diagnoses Septic shock A41.9; R65.21 Hypertension I10 Hypertension type: essential hypertension Hyperlipidemia E78.5 Hyperlipidemia type: unspecified Encephalopathy G93.40 Diabetes mellitus type 2, uncontrolled E11.65 Chronic respiratory failure with hypoxia J96.11 Lumbar compression fracture S32.000A DVT prophylaxis Z29.9 Time Spent (min) 30 (1) Hypertension Hypertension type: essential hypertension Qualified Code(s): I10 - Essential (primary) hypertension (2) Hyperlipidemia Hyperlipidemia type: unspecified Qualified Code(s): E78.5 - Hyperlipidemia, unspecified
--- NOTE | 2021-02-16 15:23 | CT Scan Report ---
CT head/brain wo con CLINICAL HISTORY: 70 years-old Female with Patient fell and struck head. Acute head injury status po st fall TECHNIQUE: Multiple axial CT images of the head were obtained without contrast. A dose lowering tech nique was utilized adhering to the principles of ALARA. CT DOSE: 894.57 mGycm COMPARISON: 02/14/2021 FINDINGS: Trace subarachnoid hemorrhage of the left cerebral convexity at the vertex. Trace subdural hematoma l aguirre along the falx cerebri measuring up to 2 mm. No acute intraparenchymal hemorrhage, significant mass effect or midline shift. Study is mildly motion degraded. No intracranial mass or acute territor ial infarct. Age-related involutional changes. White matter hypodensities suggestive of chronic micro vascular ischemic disease. Mildly motion degraded exam. The calvarium is intact. Mastoid air cells are clear. Minimal mucosal thickening of the left maxilla ry sinus. The skull, orbits and soft tissues are within normal limits. Posterior scalp contusion. IMPRESSION: 1. Trace subarachnoid hemorrhage of the superior medial aspect of the left frontal lobe near the vert ex. 2. 2 mm acute subdural hematoma layers along the falx cerebri. 3. No midline shift or acute calvarial fracture. Findings were discussed with Moi herman on 02/16/2021 at 3:18 PM. ACT 112: Negative or not required by law. The above report was generated using voice recognition software. It may contain grammatical, syntax o r spelling errors. Electronically signed by: Dre Burleson M.D. 02/16/2021 3:21 PM
[2021-02-16] MEDS ORDERED: STAT IV Infusion **Titration per Protocol STA (15:28)
[2021-02-16] MEDS: cefTRIAXone SODIUM 2,000 MG in DEXTROSE 5% 50 ML IV SCH (15:29)
[2021-02-16] MEDS: lisinopril 20 MG TAB PO SCH (15:29)
[2021-02-16] MEDS ORDERED: DEXTROSE 5% IV STA (15:31)
[2021-02-16] MEDS ORDERED: PROTAMINE SULFATE IV STA (15:31)
--- NOTE | 2021-02-16 15:43 | Communication Note ---
Date of Service: February 16, 2021 Patient sustained a fall around 3:10 PM. The fall was unwitnessed, however, the patient was found lying on her back. She hit the back of her head. She did not lose consciousness. She was assisted back into bed and emergently sent for CT scan. CT scan of her head demonstrated a trace subarachnoid hemorrhage of the superior medial aspect of the left frontal lobe near the vertex. A 2 mm subdural hematoma with layers noted along the falx cerebri. No midline shift or acute calvarial fracture was noted. I called the patient's daughter to update her regarding her condition. She is currently stable. She is hypertensive with systolic blood pressures in the 160s. We are a starting nicardipine drip to target systolic blood pressures less than 140. I discussed the findings with the patient. She was reluctant to be transferred initially, but I reiterated to her that we do not have a neurosurgeon or a neuro ICU. The best course of action would be transfer to a tertiary care center with a neurosurgeon or interventionalist if an intervention was required. I discussed the case with the patient's primary hospitalist. He is reaching out to [facility] for transfer. The patient was eventually accepting of transfer if required. We will keep the head of the bed elevated. Monitor neuro status closely. Q1 hour neurochecks. She received 40 mg of Lovenox subcutaneous for DVT prophylaxis at roughly 7:45 AM. I discussed with the pharmacist and we are going to go ahead and give her protamine sulfate. INR, PTT, CBC and BMP have been ordered. Coding Level of Care Code Critical Care 1st 30-74 mins Time Spent (min) 35
[2021-02-16] MEDS: niCARdipine 25 MG in SODIUM CHLORIDE 0.9% 240 ML IV SCH (15:54)
[2021-02-16 16:08] LABS: Basophils # (auto) 0.02 K/uL (0-0.2); Basophils % (auto) 0.3 %; Eosinophils # (auto) 0.14 K/uL (0-0.5); Eosinophils % (auto) 1.8 %; Hematocrit (blood only) 32.3 % (37-47); Hemoglobin 10.4 g/dL (12.0-16.0); Immature Granulocytes # (auto) 0.04 K/uL (0.00-0.02); Immature Granulocytes % (auto) 0.5 %; Lymphocytes # (auto) 0.75 K/uL (1.2-3.4); Lymphocytes % (auto) 9.9 %; Mean Corpuscular Hemoglobin 31.1 pg (25-34); Mean Corpuscular Volume 96.7 fL (80-100); Mean Platelet Volume 8.5 fL (7.4-10.4); Monocytes # (auto) 0.84 K/uL (0.11-0.59); Monocytes % (auto) 11.1 %; Neutrophils # (auto) 5.81 K/uL (1.4-6.5); Neutrophils % (auto) 76.4 %; Platelet Count 338 K/uL (130-400); RDW Coefficient of Variation 15.4 % (11.5-14.5); RDW Standard Deviation 54.5 fL (36.4-46.3); Red Blood Count 3.34 M/uL (4.2-5.4)
[2021-02-16 16:18] LABS: INR 1.1 (0.9-1.1); Partial Thromboplastin Ratio 1.1; Partial Thromboplastin Time 28.5 Seconds (21.0-31.0); Prothrombin Time 10.7 Seconds (9.0-12.0)
[2021-02-16 16:26] LABS: BUN Creatinine Ratio 21.5 (10-20); Calcium 8.5 mg/dl (8.5-10.1); Creatinine Clr Calc Pharmacy 113.8 ml/min; Est GFR (African American) 111.6 ml/min; Est GFR (Non-African American) 96.3 ml/min; Potassium 3.7 mmol/L (3.5-5.1)
[2021-02-16 16:42] LABS: Mean Corpuscular Hgb Conc 32.2 g/dL (32-36)
--- NOTE | 2021-02-16 17:23 | Discharge Summary ---
Date of Service February 16, 2021 Admission HPI Per Admitting Provider Traci Roman is a 70yo female with history of DM, HTN, HLP presenting after fall x 2, weakness and fatigue. On initial presentation patient was febrile to 38.2, tachycardic at 113bpm and hypotensive to 65/50. Patient denies complaint of chest pain, worsening cough or sputum, SOB, abdominal pain, nausea, vomiting, diarrhea. She is unable to recall when her last BM was. She is also complaining of some mild low back pain as well as decreased appetite. No additional complaints at this time. Patient was administered 2 L of crystalloid with transient improvement in blood pressure followed by decline. She was started on Levophed 0.1mcg/kg/min and a 3rd liter of fluid is now running. She has had improvement in her blood pressures - presently 98/58. She is awake and alert, answers most questions appropriately but does seem mildly confused. She continues asking when she will be able to go home. She has a right AC PIV in place and has refused placement of additional peripheral or central venous access. Of note, patient was hospitalized from January 08 - with low back pain and hyperglycemia. She progressed to septic/hypovolemic shock and found to have a small bowel obstruction related to her large ventral hernia. She was managed conservatively in the MICU. She was ultimately discharged to rehab then subsequently returned home. ER Course: NSS x 3L, Levophed, Cefepime Admission Exam Per Admitting Provider General: morbidly obese female patient resting comfortably, NAD, AA&O Skin: warm, dry, intact, no rashes or lesions HEENT: NC/AT, PERRL, EOMI, anicteric sclera, conjunctiva without injection, external ear normal to inspection and nontender, nares patent, moist mucus membranes, dentition intact, no oropharyngeal lesions, neck supple, trachea midline, no LAD, no thyromegaly, no JVD Heart: +S1/S2, regular, tachycardic, no m/r/g Lungs: equal air entry bilaterally, no rales/rhonchi/wheezes, mildly diminished right side Abd: +BS normoactive, soft, NT, large ventral hernia, nontender to palpation, scarring of abdominal tissue Ext: warm, 2+ pulses in UE/LE bilaterally, no clubbing/cyanosis or edema, deformity of bilateral shoulders from as well as prior surgeries Neuro: nonfocal, patient AA&O x 4, speech intact, no facial droop, moving all extremities on command with equal strength 5/5 Principal Diagnosis Septic shock with pansensitive Klebsiella pneumoniae 02/14/2021 Status post fall 02/16/2021 with small subarachnoid hemorrhage and subdural hematoma Discharge Data Allergies Allergy/AdvReac Type Severity Reaction Status Date / Time latex Allergy Severe 2ND DEGREE Verified 02/14/21 02:51 BURN FROM BANDAGE adhesive Allergy Intermediate RASH Verified 02/14/21 02:51 Consultations 02/14/21 05:07 ED Decision to Admit Stat 02/14/21 07:07 Consult Hand Coke Drawer Routine 02/14/21 10:23 Consult Palliative Care Routine 02/14/21 12:02 Consult Urology Routine 02/14/21 13:49 Consult Orthopedic Surgery Routine 02/16/21 16:13 Burn CD for patient Stat 02/16/21 16:36 Burn CD for patient Stat Ordered Studies 02/14/21 04:38 CT cervical spine wo con Urgent CT facial bones wo con Urgent CT head/brain wo con Urgent 02/14/21 05:50 CT abd pelvis wo con Stat 02/15/21 10:08 CT lumbar spine wo con Routine LUMBAR SPINE CT CT DOSE: 961.51 mGy.cm HISTORY: Low back pain. eval for L3 fracture s/p fall TECHNIQUE: Multiaxial CT images of the lumbar spine were performed and reformatted in the sagittal and coronal plane without the use of contrast. A dose lowering technique was utilized adhering to the principles of ALARA. COMPARISON: Abdomen and pelvis CT 02/14/2021. FINDINGS: There is an acute mild superior endplate compression fracture at L3 demonstrating up to 10% loss of height. No associated retropulsion. No additional fractures identified within the lumbar spine. The visualized sacrum is intact. Mild disc space narrowing at L4-5 and L5-S1. Mild dextroscoliosis of the lumbar spine. There is also mild disc space narrowing at L3-L4. Old nonunited right L2 transverse process fracture. Mild paravertebral edema at the L3 vertebral body due to the fracture. Moderate central canal narrowing at L3-L4 and L4-5 due to the disc bulge and facet hypertrophy. IMPRESSION: 1. An acute mild superior endplate compression fracture at L3. No associated retropulsion. 2. Degenerative changes as described above. ACT 112: Negative or not required by law. Electronically signed by: Mauri Guzman M.D. 02/15/2021 12:02 PM 02/16/21 14:52 CT head/brain wo con Stat CLINICAL HISTORY: 70 years-old Female with Patient fell and struck head. Acute head injury status post fall TECHNIQUE: Multiple axial CT images of the head were obtained without contrast. A dose lowering technique was utilized adhering to the principles of ALARA. CT DOSE: 894.57 mGycm COMPARISON: 02/14/2021 FINDINGS: Trace subarachnoid hemorrhage of the left cerebral convexity at the vertex. Trace subdural hematoma layers along the falx cerebri measuring up to 2 mm. No acute intraparenchymal hemorrhage, significant mass effect or midline shift. Study is mildly motion degraded. No intracranial mass or acute territorial infarct. Age-related involutional changes. White matter hypodensities suggestive of chronic microvascular ischemic disease. Mildly motion degraded exam. The calvarium is intact. Mastoid air cells are clear. Minimal mucosal thickening of the left maxillary sinus. The skull, orbits and soft tissues are within normal limits. Posterior scalp contusion. IMPRESSION: 1. Trace subarachnoid hemorrhage of the superior medial aspect of the left frontal lobe near the vertex. 2. 2 mm acute subdural hematoma layers along the falx cerebri. 3. No midline shift or acute calvarial fracture. Findings were discussed with Moi herman on 02/16/2021 at 3:18 PM. ACT 112: Negative or not required by law. The above report was generated using voice recognition software. It may contain grammatical, syntax or spelling errors. Electronically signed by: Dre Burleson M.D. 02/16/2021 3:21 PM Hospital Course (1) Subarachnoid hemorrhage: Accidental fall out of chair reaching for bed. Struck head on fall CT scan of the head completed with evidence of small subarachnoid hemorrhage as well as small 2 mm subdural hematoma * No loss of consciousness * No change in vital signs * This was a closed injury * No changes on physical exam including no focal neurological deficits Inasmuch as we do not have a neurosurgeon or a trauma service, I contacted [facility] to arrange for transfer for observation and follow-up imaging. I spoke to Dr. Akins from neurosurgery at [place] and although he stated that it would be extremely rare that this would progress he agreed to mateus craroll if we felt it was appropriate. There were no beds available at [facility]. I discussed this with the patient and she agreed to transfer to [facility] in [facility] which is associated with [facility]. I spoke to Dr. Corado from the trauma team and patient was accepted. Currently we are waiting call back with bed assignment and continue to monitor the patient for any changes. If patient is still at [facility] at 830pm this evening, it was advised that we repeat CT scan of head for progression. Last dose of enoxaparin was 40 mg subcutaneously administered 02/16/2021 at 08:09 hrs. * Patient empirically started on protamine sulfate * Blood pressure being managed with nicardipine (2) Subdural hematoma, acute: Accidental fall with no loss of consciousness. No lightheadedness or dizziness. This was a closed wound No tenderness to palpation No obvious acute cranial deformities See treatment above (3) Septic shock: Patient presented with septic shock secondary to urinary tract infection with bacteremia on 02/14/2021. Blood and urine cultures with pansensitive Klebsiella pneumoniae Procalcitonin 4.04 Day #3 Zosyn IV antibiotic Lactic acid corrected to 1.0 Hypotension resolved and patient now off of Levophed Patient downgraded from intensive care to telemetry yesterday. Discontinued Zosyn and de-escalated antibiotics to ceftriaxone 02/16/2021 Continue to monitor on telemetry (4) Hypertension: Antihypertensives held thus far this admission secondary to septic shock and hypotension We will reinstitute lisinopril 20 mg p.o. daily today (5) Hyperlipidemia: Resume atorvastatin (6) Encephalopathy: CT head without any acute findings Suspect this is metabolic secondary to septic shock and infection with pansensitive Klebsiella pneumonia Status continues to improve Continue treat underlying infection (7) Diabetes mellitus type 2, uncontrolled: Poorly controlled with hemoglobin A1c 15.3 in December Glycemic control consult placed. Appreciate pharmacy's input Continue to hold oral agents. We will continue basal insulin with Lantus and follow with sliding scale with NovoLog (8) Chronic respiratory failure with hypoxia: Patient on chronic supplemental oxygen at home Continue to maintain SaO2 at 90% Patient currently on 3 L/min via nasal cannula Patient denies any shortness of breath or chest pain. Continue to titrate supplemental oxygen as tolerated (9) Lumbar compression fracture: Acute compression fracture at L3 Patient is now more alert and oriented. Will prescribe oxycodone 5 mg p.o. every 4 hours for pain Tylenol also available [facility] consulted Poor surgical candidate as well as poor bracing candidate Continue conservative management Will order PT/OT evaluation treatment today. (10) DVT prophylaxis: Patient was on enoxaparin 40 mg daily subcu. This was discontinued after patient's fall on 02/16/2021 afternoon. Total Time Total Time Spent Total Time Spent (In Minutes): 60 minutes critical care time. Transfer to [facility] Discharge Plan Discharge Items Patient Disposition: Transfer Acute Care Hospital Reason For Visit: HYPOTENSION, FALLS Discharge Diagnosis: Subarrachnoid hemorrhage, subdural hematoma Condition on Discharge: Critical Activity: Per Instructions section Activity Comment: stay in bed for transfer Non-emergency contact: Primary Care Provider Call non-emergency contact if: you have any medication questions Follow-up/Referrals: Kristal Pham CRNP [Primary Care Provider] - Diet: Nothing by Mouth Addtl Attending Provider Instructions: transfer to [place] Pending Studies at Discharge: No Stand-Alone Forms: My [facility] Skilled Items Patient informed of condition?: Yes DNR: Yes Discharge Level of Care: Other Communicable Disease: No Discharge Prognosis: Stable Lines: Peripheral IV Urinary Catheter: No Medications and DC Order Prescriptions: Continued quetiapine [Seroquel] 50 mg tablet 50 mg PO HS RF: 0 atorvastatin [Lipitor] 80 mg Tablet 80 mg PO HS RF: 0 aspirin [Aspirin Low Dose] 81 mg Tablet,Delayed Release (Dr/Ec) 81 mg PO QPM RF: 0 cholecalciferol (vitamin D3) [Vitamin D3] 2,000 unit Capsule 2,000 unit PO QAM RF: 0 gabapentin 300 mg Capsule 300 mg PO TID RF: 0 lisinopril 20 mg tablet 20 mg PO DAILY RF: 0 cyanocobalamin (vitamin B-12) 1,000 mcg/mL Solution 1,000 mcg IM MONTHLY RF: 0 Januvia 100 mg tablet 100 mg PO QPM RF: 0 Lantus Solostar U-100 Insulin 100 unit/mL (3 mL) Insulin Pen 25 unit SC QAM Qty: 15 RF: 0 metformin 500 mg tablet 500 mg PO DAILY Qty: 30 RF: 0 Admission Data Admit Date/Time: 02/14/21 05:42 Attending Provider: Jerry Valiente Admit Provider: Syl Gold Primary Care Provider: Kristal Pham Other Providers: Delfin Guzman ; Chyna Vizcaino ; Syl Gold ; Cuco Gonzalez ; Lamar Montenegro ; Ash Lyn ; Gee Malloy ; Boris Gonzales ; Anna Kirkpatrick ; Satnam Castillo ; Elsa Oates ; Flory De Souza ; Dalia Hernandez ; Chava Bartholomew ; Rocco Flor ; Shelbi Sullivan ; Kelli Hernandez ; Cuco Smith ; Bill Foy ; Abner Khan ; Christina Mckeon Thomas J ; Eli Ramos ; Pro Buchanan ; Boris Mosley ; Shawn Cali Andrew J. ; Boris Pena ; Darryl Rahman ; Adalberto Almazan ; Kunal Hicks ; Andres Pham ; Eli Carvajal ; Brandyn Lainez ; Rian Castillo ; Malinda Hsu ; Salas Cano ; Anna Parks Coding Level of Care Code D/C DAY MANAGEMENT >30 MINS Medical Decision Making High Complexity Diagnoses Septic shock A41.9; R65.21 Hypertension I10 Hypertension type: essential hypertension Hyperlipidemia E78.5 Hyperlipidemia type: unspecified Encephalopathy G93.40 Diabetes mellitus type 2, uncontrolled E11.65 Chronic respiratory failure with hypoxia J96.11 Lumbar compression fracture S32.000A DVT prophylaxis Z29.9 Subarachnoid hemorrhage I60.9 Subdural hematoma, acute S06.5X9A Time Spent (min) 60 Comment 60 minutes critical care time Subarachnoid hemorrhage with subdural hematoma
--- NOTE | 2021-02-16 20:26 | Communication Note ---
Date of Service: February 16, 2021 Patient seen an assessed at bedside after sign out. She is completely awake, alert, and oriented and actually remembers me from previous ICU admission. She offers no complaints other than poor television options. She recognizes the acuity of her situation. We discussed repeat CT of the head at 8 PM to assess for stability of her condition. She understands and actually states that she thought that this would be the case. 1929: Was informed by staff that they have been unable to secure transportation to accepting hospital until 10:30 tomorrow (02/17) morning. Admission staff will continue to work on this throughout the night. 1999: Reached out to my attending for further guidance regarding nuances of this case. Will reach out to neurology for further recommendations since the patient will need to be kept here overnight. Patient currently in route to CT for follow-up imaging. 2011: Dr. Castaneda was kind enough to return my call regarding patient and recent fall with SAH/SDH. He recommends repeat CT ~0830 tomorrow (2 hours prior to transport). Continue with scheduled neuro checks. Hold on antiseizure medications. I appreciate his time in helping to care for this patient. I have personally spent 32 minutes of critical care time in the direct management of this patient. This is a life/limb threatening event. This includes time spent evaluating patient, direct bedside care, chart review, placing orders, interpretation of diagnostic studies, discussion with consultants, patient, and family members, as well as other required patient management activities. This time is exclusive of all separately billable procedures, and teaching time and separate from and in addition to any other critical care service time. Coding Level of Care Code Critical Care puma aly'radha 30 min Time Spent (min) 32
--- NOTE | 2021-02-16 20:30 | CT Scan Report ---
HEAD CT NONCONTRAST CT DOSE: 884.08 mGy.cm HISTORY: Follow-up intracranial hemorrhage. TECHNIQUE: Multiaxial CT images of the head were performed without the use of intravenous contrast. A utomated exposure control was utilized for this study. A dose lowering technique was utilized adheri ng to the principles of ALARA. Comparison: Head CT 02/16/2021. Findings: Mild mucosal thickening within the left maxillary sinus. The mastoid air cells are clear. T he calvarium and skull base are intact. No significant change in the small parafalcine subdural hemat heide measuring a maximal thickness of 2 mm. There is also trace subarachnoid hemorrhage within the lef t parafalcine location best seen on image 23. No additional areas of intracranial hemorrhage identifi ed. There is no mass, midline shift, or acute infarct. Impression: No significant change in the small parafalcine subdural hematoma with adjacent trace subarachnoid hem orrhage. ACT 112: Negative or not required by law. Electronically signed by: Mauri Guzman M.D. 02/16/2021 8:29 PM
[2021-02-16] MEDS: QUEtiapine FUMARATE 25 MG TABLET PO SCH (20:40)
[2021-02-17 05:01] LABS: Basophils # (auto) 0.05 K/uL (0-0.2); Basophils % (auto) 0.8 %; Eosinophils # (auto) 0.18 K/uL (0-0.5); Eosinophils % (auto) 2.8 %; Hematocrit (blood only) 32.5 % (37-47); Hemoglobin 10.3 g/dL (12.0-16.0); Immature Granulocytes # (auto) 0.03 K/uL (0.00-0.02); Immature Granulocytes % (auto) 0.5 %; Lymphocytes # (auto) 1.34 K/uL (1.2-3.4); Lymphocytes % (auto) 20.6 %; Mean Corpuscular Hemoglobin 30.8 pg (25-34); Mean Corpuscular Hgb Conc 31.7 g/dL (32-36); Mean Corpuscular Volume 97.3 fL (80-100); Mean Platelet Volume 8.5 fL (7.4-10.4); Monocytes # (auto) 0.86 K/uL (0.11-0.59); Monocytes % (auto) 13.2 %; Neutrophils # (auto) 4.06 K/uL (1.4-6.5); Neutrophils % (auto) 62.1 %; Platelet Count 401 K/uL (130-400); RDW Coefficient of Variation 15.4 % (11.5-14.5); RDW Standard Deviation 54.7 fL (36.4-46.3); Red Blood Count 3.34 M/uL (4.2-5.4); White Blood Count 6.52 K/uL (4.8-10.8)
[2021-02-17 05:32] LABS: BUN Creatinine Ratio 23.9 (10-20); Calcium 8.5 mg/dl (8.5-10.1); Creatinine Clr Calc Pharmacy 153.7 ml/min; Est GFR (African American) 123.2 ml/min; Est GFR (Non-African American) 106.3 ml/min; Magnesium 1.7 mg/dl (1.8-2.4); Potassium 3.5 mmol/L (3.5-5.1)
[2021-02-17 05:35] LABS: Phosphorus 3.3 mg/dl (2.5-4.9)
[2021-02-17] MEDS ORDERED: MAGNESIUM SULFATE / D5W 1 GM/100 ML BAG IV ONE (06:16)
[2021-02-17] MEDS: niCARdipine 25 MG in SODIUM CHLORIDE 0.9% 240 ML IV SCH ×3 (07:38→07:40)
[2021-02-17] MEDS ORDERED: INSULIN GLARGINE SOLOSTAR 100 UNITS/ML 3 ML PEN SC ONE ×2 (08:00→11:00)
--- NOTE | 2021-02-17 08:35 | CT Scan Report ---
HEAD CT NONCONTRAST CT DOSE: 1228.53 mGy.cm HISTORY: Follow-up subarachnoid hemorrhage and subdural hemorrhage. TECHNIQUE: Multiaxial CT images of the head were performed without the use of intravenous contrast. A utomated exposure control was utilized for this study. A dose lowering technique was utilized adheri ng to the principles of ALARA. Comparison: Head CT 02/16/2021. Findings: Mild mucosal thickening within the left maxillary sinus and left sphenoid sinus, unchanged. The mastoid air cells are clear. The calvarium and skull base are intact. No significant change in t he small left parafalcine subdural hematoma with a maximal thickness of 2 mm. No midline shift. Sligh t improvement in the adjacent left parafalcine subarachnoid hemorrhage. Impression: No change in the small left parafalcine subdural hematoma. There has been slight improvement in the a djacent left parafalcine subarachnoid hemorrhage. ACT 112: Negative or not required by law. Electronically signed by: Mauri Guzman M.D. 02/17/2021 8:34 AM
[2021-02-17] MEDS: INSULIN ASPART 100 UNITS/ML 3 ML PEN SC SCH ×4 (08:46→20:23)
[2021-02-17] MEDS: cefTRIAXone SODIUM 2,000 MG in DEXTROSE 5% 50 ML IV SCH (08:49)
[2021-02-17] MEDS: DOCUSATE SODIUM 100 MG CAP PO SCH ×2 (08:50→20:24)
[2021-02-17] MEDS: GABAPENTIN 300 MG CAP PO SCH ×3 (08:50→20:24)
[2021-02-17] MEDS: lisinopril 20 MG TAB PO SCH (08:50)
[2021-02-17] MEDS: PANTOprazole 40 MG TAB PO SCH (08:51)
[2021-02-17] MEDS: ACETAMINOPHEN 325 MG TAB PO PRN ×2 (08:52→18:27)
--- NOTE | 2021-02-17 09:05 | Critical Care Progress Note ---
Date of Service February 17, 2021 Assessment & Plan (1) Subarachnoid hemorrhage: (2) Subdural hematoma, acute: (3) Complicated UTI (urinary tract infection): Plan: 70-year-old female with chronic disability who presented to the hospital with encephalopathy and septic shock. Septic shock is resolved and was secondary to a complicated urinary tract infection. She is currently on ceftriaxone. Unfortunately, she sustained a fall and hit the back of her head on 02/17/2021. She was given protamine sulfate yesterday due to receiving prophylactic Lovenox in the morning. She was found to have a small subarachnoid hemorrhage and a small subdural hematoma. Neurosurgery was contacted in an outside facility. She was accepted. However, her CT head has demonstrated stability and actually slight improvement. She does not have any significant neurological symptoms at present. She can remain at [facility] at this time given that her condition is very stable. Would recommend maintaining her systolic blood pressures under 160 for the time being. Hold all antiplatelet medications and anticoagulation. Admission and Anticipated Discharge Date Admission Date: February 14, 2021 Subjective Patient seen and examined this morning. She is mentating well. Denies any significant complaint. Denies headache. Currently on low doses of nicardipine infusion. Review of Systems Review of Systems: All systems reviewed & are unremarkable except as noted in HPI & below Physical Exam Physical Exam: GENERAL : No acute distress EYES: No icterus, gaze conjugate NOSE: No evidence of epistaxis MOUTH: No lesions or candidiasis NECK: Supple LUNGS: CTA B/L, no wheezes, rales or rhonchi HEART: Regular, rate controlled ABDOMEN: Soft, NT, ND, BS Present EXTREMITIES: No LE edema, pedal pulses intact NEURO: A&OX3. Limited mobility of upper extremities. Good strength to lower extremities. Able to do straight leg raises without back pain to bilateral legs. Alert and oriented and conversational. Results & Data Results & Data ([facility]) Vital Signs (Past 12 Hours) Vital Signs Temp Pulse Pulse Resp BP Pulse Ox 02/17/21 06:22 71 20 148/75 H 95 02/17/21 04:00 97.7 F 86 16 146/69 H 96 02/17/21 02:00 65 20 117/48 L 95 02/17/21 01:00 65 18 143/69 H 97 02/17/21 00:00 72 18 132/64 95 02/16/21 23:30 80 02/16/21 23:00 98.2 F 69 22 119/56 L 94 02/16/21 22:00 71 20 99/79 L 95 02/16/21 21:30 78 22 123/62 94 Vital signs, labs and imaging personally reviewed Coding Level of Care Code 22811 Subseq Hosp Care Lvl 3 Diagnoses Subarachnoid hemorrhage I60.9 Subdural hematoma, acute S06.5X9A Complicated UTI (urinary tract infection) N39.0
--- NOTE | 2021-02-17 13:03 | Pharmacy Report ---
Pharmacy Glycemic Short Note 2 - Date of Service February 17, 2021 - Glycemic Short BSG Results (Last 24 hours): 02/16/21 02/16/21 02/16/21 15:57 16:52 20:49 Glucose 182 H POC Glucose 155 H 128 H 02/17/21 02/17/21 02/17/21 04:40 08:01 11:43 Glucose 98 POC Glucose 111 H 111 H OUTPATIENT ANTIDIABETIC REGIMEN: Prior to recent admit December 2020 * Sitagliptin * HbA1c 15.3% on 01/09/21 Changes to regimen on discharge 01/22/21 * Lantus 25 units SC daily added * Metformin 500 mg po daily added ASSESSMENT: 02/17/21 * Patient was made NPO yesterday after fall @ 1510 and SAH/SDH noted on CT. Transfer was planned for today, until repeat imaging noted improvement. Plan now is to stay at [facility] and be downgraded from ICU status. Diet now re-ordered * Previously significantly decreased Lantus this AM due to lower BSG and possible surgical intervention after transfer. But now patient is improving, staying, and is ordered a diet. Will increase back, but still a 20% reduction from yesterday due to BSG < 100 mg/dL AM fasting 02/16/21 * Patient transitioned off of insulin infusion yesterday, received 35 units of basal insulin total * Fasting this morning 138 mg/dL- will give 30 units of lantus this morning, titrate up as needed * Continue current novolog parameters, patient has been tolerating diet, lunch BSG within goal range. PLAN FOR INPATIENT GLYCEMIC CONTROL: * Hold outpatient oral diabetes medications * Basal insulin * Lantus 10+14 units SQ this AM. Will re-assess tomorrow. * Bolus insulin * Goal Range 110-140 mg/dL * Correction factor 20 mg/dl/unit * Carb Ratio 1 unit per 6 grams CHO consumed PLAN FOR DISCHARGE: * tbd. Significant changes will not likely be required as her regimen was recently changed on 01/22/21 (see above)
--- NOTE | 2021-02-17 18:59 | Hospitalist Progress Note ---
Date of Service February 17, 2021 Assessment & Plan (1) Subarachnoid hemorrhage: Plan: Accidental fall out of chair reaching for bed yesterday. Struck head on fall CT scan of the head completed with evidence of small subarachnoid hemorrhage as well as small 2 mm subdural hematoma * No loss of consciousness * No change in vital signs * This was a closed injury * No changes on physical exam including no focal neurological deficits Initially patient was accepted at [facility]. She is peripherally started on protamine and nicardipine. She was unable to be transferred overnight as there was no availability of transportation or ICU nurse per report. This morning, repeat CT scan of the head showed stable subdural hematoma and some improvement to the subarachnoid hemorrhage. Patient will be monitored on telemetry in PCU. Target systolic blood pressure below [address] head without contrast with any change in neurological status or mentation Last dose of enoxaparin was 40 mg subcutaneously administered 02/16/2021 at 08:09 hrs. (2) Subdural hematoma, acute: Plan: Accidental fall with no loss of consciousness. No lightheadedness or dizziness. This was a closed wound No tenderness to palpation No obvious acute cranial deformities See treatment above (3) Septic shock: Plan: Patient presented with septic shock secondary to urinary tract infection with bacteremia on 02/14/2021. Blood and urine cultures with pansensitive Klebsiella pneumoniae Procalcitonin 4.04 Completed 3 days of IV Zosyn. Lactic acid corrected to 1.0 Hypotension resolved and patient now off of Levophed Patient downgraded from intensive care to telemetry yesterday. Discontinued Zosyn and de-escalated antibiotics to ceftriaxone 02/16/2021 Continue to monitor on telemetry (4) Hypertension: Plan: Antihypertensives held thus far this admission secondary to septic shock and hypotension Continue lisinopril 20 mg p.o. daily (5) Hyperlipidemia: Plan: Continue atorvastatin (6) Encephalopathy: Plan: CT head on admission without any acute findings Suspect this is metabolic secondary to septic shock and infection with lópez sensitive Klebsiella pneumonia Status continues to improve Currently day #5 of antibiotics (7) Diabetes mellitus type 2, uncontrolled: Plan: Poorly controlled with hemoglobin A1c 15.3 in December Glycemic control consult placed. Appreciate pharmacy's input Continue to hold oral agents. We will continue basal insulin with Lantus and follow with sliding scale with NovoLog (8) Chronic respiratory failure with hypoxia: Plan: Patient on chronic supplemental oxygen at home at 2 L/min via nasal cannula Continue to maintain SaO2 at 90% Patient currently on 3 L/min via nasal cannula Patient denies any shortness of breath or chest pain. Continue to titrate supplemental oxygen as tolerated (9) Lumbar compression fracture: Plan: Acute compression fracture at L3 Patient is now more alert and oriented. Will prescribe oxycodone 5 mg p.o. every 4 hours for pain Tylenol also available [facility] consulted Poor surgical candidate as well as poor bracing candidate Continue conservative management Continue PT/OT (10) DVT prophylaxis: Plan: Currently no chemical prophylaxis secondary to fall yesterday Avoid SCDs as patient may try to walk Patient refusing BRODERICK hose Ambulate as tolerated Out of bed to chair Plan: Disposition: Patient is improving medically. Anticipate the patient will be discharged home with home health. Admission and Anticipated Discharge Date Admission Date: February 14, 2021 Subjective Attending: Dr. Valiente Transfer to outside facility for subarachnoid hemorrhage and subdural hematoma secondary to fall yesterday was canceled. Repeat CT scan last night showed no change compared to CT at time of fall. CT scanning this morning showed improving subarachnoid hemorrhage with stable subdural hematoma. There has been no change in neurological status. Patient's headache is resolved. At this time patient will remain at [facility] with PCU status. Patient denies any nausea or vomiting.She has no change in vision. She denies any diplopia or blurred vision. No fever or chills. She is alert and oriented. She has no acute complaints. Review of Systems Review of Systems: All systems reviewed & are unremarkable except as noted in Subjective Physical Exam Physical Exam: GENERAL : No acute distress. EYES: No icterus, gaze conjugate. Pupils equal round and reactive to light. NOSE: No evidence of epistaxis MOUTH: No lesions or candidiasis. Tongue is midline. No facial droop. NECK: Supple LUNGS: CTA B/L, no wheezes, rales or rhonchi. Somewhat limited inspirational effort HEART: Regular, rate controlled. No appreciation of ectopy. ABDOMEN: Soft, NT, ND, BS Present. No evidence of ecchymosis. No tenderness to deep palpation EXTREMITIES: No LE edema, pedal pulses intact and equal bilaterally NEURO: A&OX3. Follows commands. Strength equal and appropriate upper and lower extremities. Pupils equal round and reactive to light. Tongue is midline. No facial droop. No pronator drift. Patient has no focal deficits neurologically. Cranial nerves II through XII appear to be grossly intact without deficit. Results & Data Results & Data ([facility]) Vital Signs (Past 12 Hours) Vital Signs Temp Pulse Pulse Resp BP BP Pulse Ox 02/17/21 16:00 36.8 C 02/17/21 15:35 68 16 94/73 L 95 02/17/21 14:41 02/17/21 13:05 36.5 C 75 21 91/35 L 97 02/17/21 08:00 36.5 C 71 65 22 131/72 98 Pulse Ox Pulse Ox Pulse Ox 02/17/21 16:00 02/17/21 15:35 02/17/21 14:41 99 99 91 02/17/21 13:05 02/17/21 08:00 Laboratory Results 02/17/21 04:40 02/17/21 04:[address] 02/17/21 08:[address] DOSE: 1228.53 mGy.cm HISTORY: Follow-up subarachnoid hemorrhage and subdural hemorrhage. TECHNIQUE: Multiaxial CT images of the head were performed without the use of intravenous contrast. Automated exposure control was utilized for this study. A dose lowering technique was utilized adhering to the principles of ALARA. Comparison: Head CT 02/16/2021. Findings: Mild mucosal thickening within the left maxillary sinus and left sphenoid sinus, unchanged. The mastoid air cells are clear. The calvarium and skull base are intact. No significant change in the small left parafalcine subdural hematoma with a maximal thickness of 2 mm. No midline shift. Slight improvement in the adjacent left parafalcine subarachnoid hemorrhage. Impression: No change in the small left parafalcine subdural hematoma. There has been slight improvement in the adjacent left parafalcine subarachnoid hemorrhage. ACT 112: Negative or not required by law. Electronically signed by: Mauri Guzman M.D. 02/17/2021 8:34 AM Medications Administered Current Inpatient Medications Docusate Sodium (Docusate Sodium 100 Mg Cap) 100 mg PO BID SAAD Stop: 03/18/21 08:59 Last Admin: 02/17/21 08:50 Dose: 100 mg Documented by: Gabapentin (Gabapentin 300 Mg Cap) 300 mg PO TID SAAD Stop: 03/16/21 08:59 Last Admin: 02/17/21 13:12 Dose: 300 mg Documented by: Ceftriaxone Sodium 2,000 mg/ (Dextrose) 70 mls @ 100 mls/hr IV DAILY [facility]; Protocol Stop: 03/02/21 13:59 Last Infusion: 02/17/21 09:31 Dose: Infused Documented by: Insulin Aspart (Insulin Aspart 100 Units/Ml 3 Ml Pen) 0 units SC ACHS [facility]; Protocol Stop: 03/17/21 11:29 Last Admin: 02/17/21 17:27 Dose: 7 units Documented by: Lisinopril (Lisinopril 20 Mg Tab) 20 mg PO QAM [facility] Stop: 03/18/21 13:59 Last Admin: 02/17/21 08:50 Dose: 20 mg Documented by: Oxycodone HCl (Oxycodone Hcl Soln 5 Mg/5 Ml Udc) 5 mg PO Q4H PRN PRN Reason: Pain Stop: 03/01/21 19:13 Pantoprazole Sodium (Pantoprazole 40 Mg Tab) [facility] [place] Stop: 03/16/21 08:59 Last Admin: 02/17/21 08:51 Dose: 40 mg Documented by: Polyethylene Glycol (Polyethylene (Miralax) 17 Gm Pack) 17 gm PO DAILY PRN PRN Reason: Constipation Stop: 03/18/21 08:30 Last Admin: 02/16/21 09:21 Dose: 17 gm Documented by: Quetiapine Fumarate (Quetiapine Fumarate 25 Mg Tablet) 50 mg PO [facility] Stop: 03/16/21 20:59 Last Admin: 02/16/21 20:40 Dose: 50 mg Documented by: PG Care Time/CCT Total # of Minutes Spent Total Time Spent with Patient: Total time spent is greater than 50% in coordination of care (as documented) at patient's floor/unit and/or counseling patient: Coding Level of Care Code 66546 Subseq Hosp Care Lvl 2 Diagnoses Subarachnoid hemorrhage I60.9 Subdural hematoma, acute S06.5X9A Septic shock A41.9; R65.21 Hypertension I10 Hypertension type: essential hypertension Hyperlipidemia E78.5 Hyperlipidemia type: unspecified Encephalopathy G93.40 Diabetes mellitus type 2, uncontrolled E11.65 Chronic respiratory failure with hypoxia J96.11 Lumbar compression fracture S32.000A DVT prophylaxis Z29.9 Time Spent (min) 25 (1) Hypertension Hypertension type: essential hypertension Qualified Code(s): I10 - Essential (primary) hypertension (2) Hyperlipidemia Hyperlipidemia type: unspecified Qualified Code(s): E78.5 - Hyperlipidemia, unspecified
[2021-02-17] MEDS: QUEtiapine FUMARATE 25 MG TABLET PO SCH (20:24)
[2021-02-18] MEDS: ACETAMINOPHEN 325 MG TAB PO PRN ×3 (02:34→22:52)
[2021-02-18] MEDS: lisinopril 20 MG TAB PO SCH (08:11)
[2021-02-18] MEDS: DOCUSATE SODIUM 100 MG CAP PO SCH ×2 (08:11→20:33)
[2021-02-18] MEDS: PANTOprazole 40 MG TAB PO SCH (08:11)
[2021-02-18] MEDS: INSULIN GLARGINE SOLOSTAR 100 UNITS/ML 3 ML PEN SC SCH (08:11)
[2021-02-18] MEDS: GABAPENTIN 300 MG CAP PO SCH ×3 (08:11→20:33)
[2021-02-18] MEDS: INSULIN ASPART 100 UNITS/ML 3 ML PEN SC SCH ×4 (08:12→20:19)
[2021-02-18] MEDS: cefTRIAXone SODIUM 2,000 MG in DEXTROSE 5% 50 ML IV SCH (08:13)
--- NOTE | 2021-02-18 17:59 | Hospitalist Progress Note ---
Date of Service February 18, 2021 Assessment & Plan (1) Subarachnoid hemorrhage: Plan: Accidental fall out of chair reaching for bed yesterday. Struck head on fall CT scan of the head completed with evidence of small subarachnoid hemorrhage as well as small 2 mm subdural hematoma * No loss of consciousness * No change in vital signs * This was a closed injury * No changes on physical exam including no focal neurological deficits Initially patient was accepted at [facility]. She is peripherally started on protamine and nicardipine. She was unable to be transferred overnight as there was no availability of transportation or ICU nurse per report. Repeat CT scan of the head showed stable subdural hematoma and some improvement to the subarachnoid hemorrhage. Now 48 hours out with no neurological changes or complications Last dose of enoxaparin was 40 mg subcutaneously administered 02/16/2021 at 08:09 hrs. Consider heparin 5000 units subcutaneously every 12 hours for DVT prophylaxis starting tomorrow (2) Subdural hematoma, acute: Plan: Accidental fall with no loss of consciousness. No lightheadedness or dizziness. This was a closed wound No tenderness to palpation No obvious acute cranial deformities See treatment above (3) Septic shock: Plan: Patient presented with septic shock secondary to urinary tract infection with bacteremia on 02/14/2021. Blood and urine cultures with pansensitive Klebsiella pneumoniae Procalcitonin 4.04 Completed 3 days of IV Zosyn. Lactic acid corrected to 1.0 Hypotension resolved and patient now off of Levophed Patient downgraded from intensive care to telemetry yesterday. Discontinued Zosyn and de-escalated antibiotics to ceftriaxone 02/16/2021 Today is day #5 of antibiotics Continue to monitor on telemetry (4) Hypertension: Plan: Continue lisinopril 20 mg p.o. daily Hemodynamically stable (5) Hyperlipidemia: Plan: Continue atorvastatin (6) Encephalopathy: Plan: CT head on admission without any acute findings Suspect this is metabolic secondary to septic shock and infection with pansensitive Klebsiella pneumonia Status continues to improve Currently day #5 of antibiotics (7) Diabetes mellitus type 2, uncontrolled: Plan: Poorly controlled with hemoglobin A1c 15.3 in December Glycemic control consult placed. Appreciate pharmacy's input Continue to hold oral agents. We will continue basal insulin with Lantus and follow with sliding scale with NovoLog (8) Chronic respiratory failure with hypoxia: Plan: Patient on chronic supplemental oxygen at home at 2 L/min via nasal cannula Continue to maintain SaO2 at 90% Patient denies any shortness of breath or chest pain. Continue to titrate supplemental oxygen as tolerated (9) Lumbar compression fracture: Plan: Acute compression fracture at L3 Patient is now more alert and oriented. Will prescribe oxycodone 5 mg p.o. every 4 hours for pain Tylenol also available [facility] consulted Poor surgical candidate as well as poor bracing candidate Continue conservative management Continue PT/OT (10) DVT prophylaxis: Plan: Currently no chemical prophylaxis secondary to fall on Sunday Consider heparin 5000 units subcutaneously every 12 hours starting tomorrow Avoid SCDs as patient may try to walk Patient refusing BRODERICK hose Ambulate as tolerated Out of bed to chair Plan: Disposition: Patient is improving medically. Anticipate the patient will be discharged home with home health. Admission and Anticipated Discharge Date Admission Date: February 14, 2021 Subjective Attending: Dr. Valiente Patient seen at bedside. She is continue to do well. She has no neurological deficits. No headache. She has no nausea or vomiting. She is alert and oriented. No fever or chills. She has no acute complaints. Review of Systems Review of Systems: All systems reviewed & are unremarkable except as noted in Subjective Physical Exam Physical Exam: GENERAL : No acute distress EYES: No icterus, gaze conjugate NOSE: No evidence of epistaxis MOUTH: No lesions or candidiasis NECK: Supple LUNGS: CTA B/L, no wheezes, rales or rhonchi HEART: Regular, rate controlled ABDOMEN: Soft, NT, ND, BS Present EXTREMITIES: No LE edema, pedal pulses intact NEURO: A&OX3. Negative pronator drift. Upper and lower extremities equal strength bilaterally. Pupils equal round and reactive to light. No facial droop. No slurring. Tongue midline. No acute neurological deficits. Results & Data Results & Data ([facility]) Vital Signs (Past 12 Hours) Vital Signs Temp Pulse Resp BP Pulse Ox 02/18/21 15:28 36.8 C 78 20 118/60 96 02/18/21 07:00 36.9 C 72 20 141/66 H 97 Laboratory Results 02/17/21 04:40 02/17/21 04:40 PG Care Time/CCT Total # of Minutes Spent Total Time Spent with Patient: Total time spent is greater than 50% in coordination of care (as documented) at patient's floor/unit and/or counseling p atient: Coding Level of Care Code 22098 Subseq Hosp Care Lvl 2 Diagnoses Subarachnoid hemorrhage I60.9 Subdural hematoma, acute S06.5X9A Septic shock A41.9; R65.21 Hypertension I10 Hypertension type: essential hypertension Hyperlipidemia E78.5 Hyperlipidemia type: unspecified Encephalopathy G93.40 Diabetes mellitus type 2, uncontrolled E11.65 Chronic respiratory failure with hypoxia J96.11 Lumbar compression fracture S32.000A DVT prophylaxis Z29.9 Time Spent (min) 25 (1) Hypertension Hypertension type: essential hypertension Qualified Code(s): I10 - Essential (primary) hypertension (2) Hyperlipidemia Hyperlipidemia type: unspecified Qualified Code(s): E78.5 - Hyperlipidemia, unspecified
[2021-02-18] MEDS: QUEtiapine FUMARATE 25 MG TABLET PO SCH (20:33)
[2021-02-19] MEDS: cefTRIAXone SODIUM 2,000 MG in DEXTROSE 5% 50 ML IV SCH (07:50)
[2021-02-19] MEDS: lisinopril 20 MG TAB PO SCH (07:51)
[2021-02-19] MEDS: PANTOprazole 40 MG TAB PO SCH (07:51)
[2021-02-19] MEDS: INSULIN GLARGINE SOLOSTAR 100 UNITS/ML 3 ML PEN SC SCH (07:52)
[2021-02-19] MEDS: GABAPENTIN 300 MG CAP PO SCH ×3 (07:52→20:40)
[2021-02-19] MEDS: DOCUSATE SODIUM 100 MG CAP PO SCH ×2 (07:52→20:40)
[2021-02-19] MEDS: INSULIN ASPART 100 UNITS/ML 3 ML PEN SC SCH ×4 (07:53→20:46)
--- NOTE | 2021-02-19 08:23 | Hospitalist Progress Note ---
Date of Service February 19, 2021 Assessment & Plan (1) Subarachnoid hemorrhage: Plan: Accidental fall out of chair reaching for bed on 02/16 Struck head on fall CT scan of the head completed with evidence of small subarachnoid hemorrhage as well as small 2 mm subdural hematoma * No loss of consciousness * No change in vital signs * This was a closed injury * No changes on physical exam including no focal neurological deficits Initially patient was accepted at [facility]. She is peripherally started on protamine and nicardipine. She was unable to be transferred overnight as there was no availability of transportation or ICU nurse per report. Repeat CT scan of the head showed stable subdural hematoma and some improvement to the subarachnoid hemorrhage. Now 72 hours out with no neurological changes or complications Last dose of enoxaparin was 40 mg subcutaneously administered 02/16/2021 at 08:09 hrs. resume heparin 5000 units subcutaneously every 12 hours for DVT prophylaxis starting today (2) Subdural hematoma, acute: Plan: Accidental fall with no loss of consciousness. No lightheadedness or dizziness. This was a closed wound No tenderness to palpation No obvious acute cranial deformities See treatment above (3) Septic shock: Plan: Patient presented with septic shock secondary to urinary tract infection with bacteremia on 02/14/2021. Blood and urine cultures with pansensitive Klebsiella pneumoniae Procalcitonin 4.04 Completed 3 days of IV Zosyn. Lactic acid corrected to 1.0 Hypotension resolved and patient now off of Levophed Patient downgraded from intensive care to telemetry yesterday. Discontinued Zosyn and de-escalated antibiotics to ceftriaxone 02/16/2021 Today is day #6 of antibiotics complete 7 days of IV antibiotics, can change to PO based on sensitivities (4) Hypertension: Plan: Continue lisinopril 20 mg p.o. daily Hemodynamically stable slightly volume overloaded, likely from initial sepsis treatment with fluids give Lasix 20mg IV x 1 now (5) Hyperlipidemia: Plan: Continue atorvastatin (6) Encephalopathy: Plan: CT head on admission without any acute findings Suspect this is metabolic secondary to septic shock and infection with pansensitive Klebsiella pneumonia Status continues to improve Currently day #6 of antibiotics (7) Diabetes mellitus type 2, uncontrolled: Plan: Poorly controlled with hemoglobin A1c 15.3 in December Glycemic control consult placed. Appreciate pharmacy's input Continue to hold oral agents. We will continue basal insulin with Lantus and follow with sliding scale with NovoLog (8) Chronic respiratory failure with hypoxia: Plan: Patient on chronic supplemental oxygen at home at 2 L/min via nasal cannula Continue to maintain SaO2 at 90%, but she is requiring 4L see if a dose of Lasix 20mg will help with saturations Patient denies any shortness of breath or chest pain. Continue to titrate supplemental oxygen as tolerated (9) Lumbar compression fracture: Plan: Acute compression fracture at L3 Patient is now more alert and oriented. Will prescribe oxycodone 5 mg p.o. every 4 hours for pain Tylenol also available [facility] consulted Poor surgical candidate as well as poor bracing candidate Continue conservative management Continue PT/OT (10) DVT prophylaxis: Plan: heparin 5000 units subcutaneously every 12 hours starting today Plan: Disposition: Patient is improving medically. Anticipate the patient will be discharged home with home health but needs to be here the weekend she is very weak, click scores of 9 and 12 on OT/PT, she is refusing to consider SNF see if she can improve her strength Admission and Anticipated Discharge Date Admission Date: February 14, 2021 Subjective patient doing well, eating all of her lunch, no issues she says her breathing is still a little labored, she is on 2L at home, right n ow on 4L she is making urine via corona but looks volume overloaded, will give Lasix 20mg IV mild cough every now and then no headache after striking her head three nights ago she is very weak, she is refusing SNF and wants to go home with home health, lives with will see if she can improve her strength labs reviewed Review of Systems Review of Systems: All systems reviewed & are unremarkable except as noted in Subjective Respiratory: + cough, + dyspnea and + dyspnea on exertion Cardiovascular: no chest pain and no edema Gastrointestinal: no abdominal pain, no nausea, no vomiting, no constipation and no diarrhea/loose stools Neurologic: + generalized weakness Physical Exam Constitutional: well developed, well nourished, + obese and comfortable; no acute distress Neck: trachea midline, no thyromegaly Respiratory: normal respiratory effort and + cough; no respiratory distress Auscultation: + diminished lung sounds (bases); no crackles, no rales and no wheezes Cardiovascular: RRR, no murmur, no edema Gastrointestinal (Abdomen): normal bowel sounds, soft, nontender, no hepatosplenomegaly Musculoskeletal: Extremities: extremities normal to inspection and + abnormal strength (generalized weakness) Skin: no rashes, warm and dry Neurologic: normal touch/pain/proprioception, CN's II-XI intact bilaterally, moves all extremities and awake; no focal motor deficits Psychiatric: A+Ox3, euthymic affect Results & Data Results & Data ([facility]) Vital Signs (Past 12 Hours) Vital Signs Temp Pulse Resp BP Pulse Ox 02/19/21 03:16 36.6 C 72 20 136/68 91 02/18/21 23:49 141/72 H 02/18/21 22:50 36.9 C 67 22 151/66 H 95 Laboratory Results Laboratory Results - last 24 hr 02/18/21 02/18/21 02/18/21 11:20 15:33 20:10 POC Glucose 110 H 101 H 122 H 02/19/21 07:37 POC Glucose 133 H Medications Administered Current Inpatient Medications Acetaminophen (Acetaminophen 325 Mg Tab) 650 mg PO Q6H PRN PRN Reason: Pain Stop: 03/16/21 12:14 Last Admin: 02/18/21 22:52 Dose: 650 mg Documented by: Dextrose (Dextrose 50% 50 Ml Syringe) 25 - 50 ml IV UD PRN; Protocol PRN Reason: Hypoglycemia Protocol Stop: 03/16/21 07:59 Docusate Sodium (Docusate Sodium 100 Mg Cap) 100 mg PO BID [facility]AD Stop: 03/18/21 08:59 Last Admin: 02/19/21 07:52 Dose: 100 mg Documented by: Gabapentin (Gabapentin 300 Mg Cap) 300 mg PO TID [facility]AD Stop: 03/16/21 08:59 Last Admin: 02/19/21 07:52 Dose: 300 mg Documented by: Glucagon (Glucagon For Inj 1 Mg Vial) 1 mg IM UD PRN; Protocol PRN Reason: Hypoglycemia Protocol Stop: 03/16/21 07:59 Glucose (Glucose 40% Gel 15 Gm Tube) 15 - 30 gm PO UD PRN; Protocol PRN Reason: Hypoglycemia Protocol Stop: 03/16/21 07:59 Glucose (Glucose 10 Tabs/Tube) 4 - 8 tabs PO UD PRN; Protocol PRN Reason: Hypoglycemia Protocol Stop: 03/16/21 07:59 Ceftriaxone Sodium 2,000 mg/ (Dextrose) 70 mls @ 100 mls/hr IV DAILY [facility]AD; Protocol Stop: 03/02/21 13:59 Last Admin: 02/19/21 07:50 Dose: 100 mls/hr Documented by: Insulin Aspart (Insulin Aspart 100 Units/Ml 3 Ml Pen) 0 units SC [facility]; Protocol Stop: 03/17/21 11:29 Last Admin: 02/19/21 07:53 Dose: 5 units Documented by: Insulin Glargine (Insulin Glargine Solostar 100 Units/Ml 3 Ml Pen) 0 units SC [facility]; Protocol Stop: 03/20/21 08:59 Last Admin: 02/19/21 07:52 Dose: 25 units Documented by: Lisinopril (Lisinopril 20 Mg Tab) 20 mg PO [facility] Stop: 03/18/21 13:59 Last Admin: 02/19/21 07:51 Dose: 20 mg Documented by: Miscellaneous (Carbohydrates For Hypoglycemia ) 15 - 30 gm PO UD PRN PRN Reason: Hypoglycemia Treatment Stop: 03/16/21 07:59 Miscellaneous Information (Pharmacy Glycemic Mgmt Consult) 1 ea N/A UD PRN PRN Reason: Consult Stop: 03/16/21 08:21 Oxycodone HCl (Oxycodone Hcl Soln 5 Mg/5 Ml Udc) 5 mg PO Q4H PRN PRN Reason: Pain Stop: 03/01/21 19:13 Pantoprazole Sodium (Pantoprazole 40 Mg Tab) 40 mg PO [facility] Stop: 03/16/21 08:59 Last Admin: 02/19/21 07:51 Dose: 40 mg Documented by: Polyethylene Glycol (Polyethylene (Miralax) 17 Gm Pack) 17 gm PO DAILY PRN PRN Reason: Constipation Stop: 03/18/21 08:30 Last Admin: 02/16/21 09:21 Dose: 17 gm Documented by: Quetiapine Fumarate (Quetiapine Fumarate 25 Mg Tablet) 50 mg PO [facility] Stop: 03/16/21 20:59 Last Admin: 02/18/21 20:33 Dose: 50 mg Documented by: PG Care Time/CCT Total # of Minutes Spent Total Time Spent with Patient: Total time spent is greater than 50% in coordination of care (as documented) at patient's floor/unit and/or counseling patient: Coding Level of Care Code 64550 Subseq Hosp Care Lvl 3 Diagnoses Subarachnoid hemorrhage I60.9 Subdural hematoma, acute S06.5X9A Septic shock A41.9; R65.21 Hypertension I10 Hypertension type: essential hypertension Hyperlipidemia E78.5 Hyperlipidemia type: unspecified Encephalopathy G93.40 Diabetes mellitus type 2, uncontrolled E11.65 Chronic respiratory failure with hypoxia J96.11 Lumbar compression fracture S32.000A DVT prophylaxis Z29.9 (1) Hyperlipidemia Hyperlipidemia type: unspecified Qualified Code(s): E78.5 - Hyperlipidemia, unspecified (2) Hypertension Hypertension type: essential hypertension Qualified Code(s): I10 - Essential (primary) hypertension
[2021-02-19] MEDS: ACETAMINOPHEN 325 MG TAB PO PRN ×2 (08:42→22:46)
[2021-02-19] MEDS ORDERED: FUROSEMIDE 20 MG in SYRINGE 0 ML IV ONE (13:15)
[2021-02-19] MEDS: HEPARIN SOD 5,000 UNIT/0.5 ML VIAL SQ SCH ×2 (13:54→22:47)
[2021-02-19] MEDS: QUEtiapine FUMARATE 25 MG TABLET PO SCH (20:39)
[2021-02-20] MEDS: HEPARIN SOD 5,000 UNIT/0.5 ML VIAL SQ SCH ×3 (06:38→21:19)
[2021-02-20] MEDS ORDERED: FUROSEMIDE 20 MG in SYRINGE 0 ML IV ONE (07:45)
[2021-02-20 08:53] LABS: Hematocrit (blood only) 34.1 % (37-47); Hemoglobin 10.7 g/dL (12.0-16.0); Mean Corpuscular Hemoglobin 30.9 pg (25-34); Mean Corpuscular Hgb Conc 31.4 g/dL (32-36); Mean Corpuscular Volume 98.6 fL (80-100); Mean Platelet Volume 8.2 fL (7.4-10.4); Platelet Count 629 K/uL (130-400); RDW Coefficient of Variation 15.7 % (11.5-14.5); RDW Standard Deviation 55.8 fL (36.4-46.3); Red Blood Count 3.46 M/uL (4.2-5.4); White Blood Count 6.89 K/uL (4.8-10.8)
[2021-02-20] MEDS: DOCUSATE SODIUM 100 MG CAP PO SCH ×2 (09:19→21:24)
[2021-02-20] MEDS: GABAPENTIN 300 MG CAP PO SCH ×3 (09:20→21:17)
[2021-02-20] MEDS: PANTOprazole 40 MG TAB PO SCH (09:20)
[2021-02-20] MEDS: lisinopril 20 MG TAB PO SCH (09:20)
[2021-02-20] MEDS: INSULIN ASPART 100 UNITS/ML 3 ML PEN SC SCH ×4 (09:24→21:20)
[2021-02-20] MEDS: INSULIN GLARGINE SOLOSTAR 100 UNITS/ML 3 ML PEN SC SCH (09:25)
[2021-02-20 09:26] LABS: BUN Creatinine Ratio 29.5 (10-20); Calcium 8.6 mg/dl (8.5-10.1); Creatinine Clr Calc Pharmacy 141.7 ml/min; Est GFR (African American) 120.3 ml/min; Est GFR (Non-African American) 103.8 ml/min; Magnesium 1.8 mg/dl (1.8-2.4); Potassium 3.4 mmol/L (3.5-5.1)
[2021-02-20] MEDS: cefTRIAXone SODIUM 2,000 MG in DEXTROSE 5% 50 ML IV SCH (10:42)
--- NOTE | 2021-02-20 12:34 | Pharmacy Report ---
Pharmacy Glycemic Short Note 2 - Date of Service February 20, 2021 - Glycemic Short BSG Results (Last 24 hours): 02/19/21 02/19/21 02/19/21 12:24 17:01 20:34 Glucose POC Glucose 144 H 109 H 142 H 02/20/21 02/20/21 02/20/21 08:03 08:37 12:00 Glucose 146 H POC Glucose 160 H 193 H OUTPATIENT ANTIDIABETIC REGIMEN: Prior to recent admit December 2020 * Sitagliptin * HbA1c 15.3% on 01/09/21 Changes to regimen on discharge 01/22/21 * Lantus 25 units SC daily added * Metformin 500 mg po daily added ASSESSMENT: 02/20 * Pt has received 49 units of insulin over the past 24hrs * 25 units of basal with Lantus * 24 units of bolus with NovoLog * BSGs [phone] mg/dl * AM fasting BSG trending upwards 133 yesterday 160 today. Will slightly increase basal insulin from 25 to 28 units * No changes needed to CF/CR as post-prandial BSGs are in goal range. 02/17/21 * Patient was made NPO yesterday after fall @ 1510 and SAH/SDH noted on CT. Transfer was planned for today, until repeat imaging noted improvement. Plan now is to stay at [facility] and be downgraded from ICU status. Diet now re-ordered * Previously significantly decreased Lantus this AM due to lower BSG and possible surgical intervention after transfer. But now patient is improving, staying, and is ordered a diet. Will increase back, but still a 20% reduction from yesterday due to BSG < 100 mg/dL AM fasting 02/16/21 * Patient transitioned off of insulin infusion yesterday, received 35 units of basal insulin total * Fasting this morning 138 mg/dL- will give 30 units of lantus this morning, titrate up as needed * Continue current novolog parameters, patient has been tolerating diet, lunch BSG within goal range. PLAN FOR INPATIENT GLYCEMIC CONTROL: * Hold outpatient oral diabetes medications * Basal insulin * Lantus 28 units SQ AM * Bolus insulin * Goal Range 110-140 mg/dL * Correction factor 20 mg/dl/unit * Carb Ratio 1 unit per 6 grams CHO consumed PLAN FOR DISCHARGE: * tbd. Significant changes will not likely be required as her regimen was recently changed on 01/22/21 (see above) * Re-ordered A1c for 02/21/21 to assess new start insulin regimen from 01/22 - HbA1c is most heavily weighted on the previous two weeks so we should see a significant improvement in A1c with starting insulin regimen from 01/22/21
--- NOTE | 2021-02-20 13:41 | Hospitalist Progress Note ---
Date of Service February 20, 2021 Assessment & Plan (1) Subarachnoid hemorrhage: Plan: Accidental fall out of chair reaching for bed on 02/16 Struck head on fall CT scan of the head completed with evidence of small subarachnoid hemorrhage as well as small 2 mm subdural hematoma * No loss of consciousness * No change in vital signs * This was a closed injury * No changes on physical exam including no focal neurological deficits Initially patient was accepted at [facility]. She is peripherally started on protamine and nicardipine. She was unable to be transferred overnight as there was no availability of transportation or ICU nurse per report. Repeat CT scan of the head showed stable subdural hematoma and some improvement to the subarachnoid hemorrhage. Now 72 hours out with no neurological changes or complications Last dose of enoxaparin was 40 mg subcutaneously administered 02/16/2021 at 08:09 hrs. resumed heparin 5000 units subcutaneously every 12 hours on 02/19 (2) Subdural hematoma, acute: Plan: Accidental fall with no loss of consciousness. No lightheadedness or dizziness. This was a closed wound No tenderness to palpation No obvious acute cranial deformities See treatment above (3) Septic shock: Plan: Patient presented with septic shock secondary to urinary tract infection with bacteremia on 02/14/2021. Blood and urine cultures with pansensitive Klebsiella pneumoniae Procalcitonin 4.04 Completed 3 days of IV Zosyn. Lactic acid corrected to 1.0 Hypotension resolved and patient now off of Levophed Patient downgraded from intensive care to telemetry yesterday. Discontinued Zosyn and de-escalated antibiotics to ceftriaxone 02/16/2021 Today is day #7 of antibiotics complete 7 days of IV antibiotics, can change to Cefdinir for 7 more days tomorrow (4) Hypertension: Plan: Continue lisinopril 20 mg p.o. daily Hemodynamically stable slightly volume overloaded, likely from initial sepsis treatment with fluids great response to Lasix 20mg IV in evening on 02/19 continues to respond after dose this morning, 02/20 will order Lasix 20 q12, continue until Cr rises or she does not diurese (5) Hyperlipidemia: Plan: Continue atorvastatin (6) Encephalopathy: Plan: CT head on admission without any acute findings Suspect this is metabolic secondary to septic shock and infection with pansensitive Klebsiella pneumonia Status continues to improve Currently day #7 of antibiotics (7) Diabetes mellitus type 2, uncontrolled: Plan: Poorly controlled with hemoglobin A1c 15.3 in December Glycemic control consult placed. Appreciate pharmacy's input Continue to hold oral agents. We will continue basal insulin with Lantus and follow with sliding scale with NovoLog (8) Chronic respiratory failure with hypoxia: Plan: Patient on chronic supplemental oxygen at home at 2 L/min via nasal cannula Continue to maintain SaO2 at 90%, she is down to 3L today after giving Lasix Patient denies any shortness of breath or chest pain. Continue to titrate supplemental oxygen as tolerated (9) Lumbar compression fracture: Plan: Acute compression fracture at L3 Patient is now more alert and oriented. Will prescribe oxycodone 5 mg p.o. every 4 hours for pain Tylenol also available [facility] consulted Poor surgical candidate as well as poor bracing candidate Continue conservative management Continue PT/OT (10) DVT prophylaxis: Plan: heparin 5000 units subcutaneously every 12 hours starting today Plan: Disposition: Patient is improving medically. Anticipate the patient will be discharged home with home health but needs to be here the weekend she is very weak, click scores of 9 and 12 on OT/PT, she is refusing to consider SNF see if she can improve her strength with therapy tomorrow and Sunday asked her to reconsider SNF but she still wants home health discussed that she might be ready by late Sunday or Sunday labs tomorrow Admission and Anticipated Discharge Date Admission Date: February 14, 2021 Subjective patient is doing well, making urine with Lasix, gave her another dose this morning Cr is stable eating very well, breathing well, no fever she says she feels stronger on her feet trying to wean off oxygen I discussed with her that she is quite weak, might want to consider rehab stay again she said she was just at [facility] 2 [facility] ago, not interested in going back recommend she get more therapy evaluations tomorrow and Sunday, see if her strength has improved no headache again today, stable ever since striking her head Review of Systems Review of Systems: All systems reviewed & are unremarkable except as noted in Subjective Physical Exam Constitutional: well developed, well nourished, + obese and comfortable; no acute distress Neck: trachea midline, no thyromegaly Respiratory: normal respiratory effort and + cough; no respiratory distress Auscultation: + diminished lung sounds (bases); no crackles, no rales and no wheezes Cardiovascular: RRR, no murmur, no edema Gastrointestinal (Abdomen): normal bowel sounds, soft, nontender, no hepatosplenomegaly Musculoskeletal: Extremities: extremities normal to inspection and + abnormal strength (generalized weakness) Skin: no rashes, warm and dry Neurologic: normal touch/pain/proprioception, CN's II-XI intact bilaterally, moves all extremities and awake; no focal motor deficits Psychiatric: A+Ox3, euthymic affect Results & Data Results & Data ([facility]) Vital Signs (Past 12 Hours) Vital Signs Temp Pulse Pulse Resp BP Pulse Ox 02/20/21 12:35 36.8 C 76 20 111/76 98 02/20/21 08:00 36.6 C 65 18 120/66 91 Laboratory Results Laboratory Results - last 24 hr 02/19/21 02/19/21 02/20/21 17:01 20:34 08:03 WBC RBC Hgb Hct MCV MCH MCHC RDW Std Deviation RDW Coeff of Vikas Plt Count MPV Sodium Potassium Chloride Carbon Dioxide Anion Gap BUN Creatinine Est Cr Clr Drug Dosing Est GFR ( Amer) Est GFR (Non-Af Amer) BUN/Creatinine Ratio Glucose POC Glucose 109 H 142 H 160 H Calcium Magnesium 02/20/21 02/20/21 02/20/21 08:37 08:37 12:00 WBC 6.89 RBC 3.46 L Hgb 10.7 L Hct 34.1 L MCV 98.6 MCH 30.9 MCHC 31.4 L RDW Std Deviation 55.8 H RDW Coeff of Vikas 15.7 H Plt Count 629 H MPV 8.2 Sodium 140 Potassium 3.4 L Chloride 102 Carbon Dioxide 29 Anion Gap 10.0 BUN 13 Creatinine 0.43 L Est Cr Clr Drug Dosing 141.7 Est GFR ( Amer) 120.3 Est GFR (Non-Af Amer) 103.8 BUN/Creatinine Ratio 29.5 H Glucose 146 H POC Glucose 193 H Calcium 8.6 Magnesium 1.8 Medications Administered Current Inpatient Medications Acetaminophen (Acetaminophen 325 Mg Tab) 650 mg PO Q6H PRN PRN Reason: Pain Stop: 03/16/21 12:14 Last Admin: 02/19/21 22:46 Dose: 650 mg Documented by: Dextrose (Dextrose 50% 50 Ml Syringe) 25 - 50 ml IV UD PRN; Protocol PRN Reason: Hypoglycemia Protocol Stop: 03/16/21 07:59 Docusate Sodium (Docusate Sodium 100 Mg Cap) 100 mg PO BID [facility]AD Stop: 03/18/21 08:59 Last Admin: 02/20/21 09:19 Dose: 100 mg Documented by: Gabapentin (Gabapentin 300 Mg Cap) 300 mg PO TID [facility] Stop: 03/16/21 08:59 Last Admin: 02/20/21 13:53 Dose: 300 mg Documented by: Glucagon (Glucagon For Inj 1 Mg Vial) 1 mg IM UD PRN; Protocol PRN Reason: Hypoglycemia Protocol Stop: 03/16/21 07:59 Glucose (Glucose 40% Gel 15 Gm Tube) 15 - 30 gm PO UD PRN; Protocol PRN Reason: Hypoglycemia Protocol Stop: 03/16/21 07:59 Glucose (Glucose 10 Tabs/Tube) 4 - 8 tabs PO UD PRN; Protocol PRN Reason: Hypoglycemia Protocol Stop: 03/16/21 07:59 Heparin Sodium (Porcine) (Heparin Sod 5,000 Unit/0.5 Ml Vial) 5,000 units SQ Q8 [facility] Stop: 03/21/21 13:59 Last Admin: 02/20/21 13:57 Dose: 5,000 units Documented by: Ceftriaxone Sodium 2,000 mg/ (Dextrose) 70 mls @ 100 mls/hr IV DAILY [facility]; Protocol Stop: 03/02/21 13:59 Last Infusion: 02/20/21 11:36 Dose: Infused Documented by: Furosemide 20 mg/ Syringe 2 mls @ 4 mls/min IV Q12 [facility] Stop: 03/22/21 20:59 Insulin Aspart (Insulin Aspart 100 Units/Ml 3 Ml Pen) 0 units SC ACHS [facility]; Protocol Stop: 03/17/21 11:29 Last Admin: 02/20/21 13:53 Dose: 8 units Documented by: Insulin Glargine (Insulin Glargine Solostar 100 Units/Ml 3 Ml Pen) [facility] Protocol Stop: 03/22/21 08:59 Last Admin: 02/20/21 09:25 Dose: 28 units Documented by: Lisinopril (Lisinopril 20 Mg Tab) 20 mg PO QAM [facility] Stop: 03/18/21 13:59 Last Admin: 02/20/21 09:20 Dose: 20 mg Documented by: Miscellaneous (Carbohydrates For Hypoglycemia ) 15 - 30 gm PO UD PRN PRN Reason: Hypoglycemia Treatment Stop: 03/16/21 07:59 Miscellaneous Information (Pharmacy Glycemic Mgmt Consult) 1 ea N/A UD PRN PRN Reason: Consult Stop: 03/16/21 08:21 Oxycodone HCl (Oxycodone Hcl Soln 5 Mg/5 Ml Udc) 5 mg PO Q4H PRN PRN Reason: Pain Stop: 03/01/21 19:13 Pantoprazole Sodium (Pantoprazole 40 Mg Tab) 40 mg PO QAM [facility] Stop: 03/16/21 08:59 Last Admin: 02/20/21 09:20 Dose: 40 mg Documented by: Polyethylene Glycol (Polyethylene (Miralax) 17 Gm Pack) 17 gm PO DAILY PRN PRN Reason: Constipation Stop: 03/18/21 08:30 Last Admin: 02/16/21 09:21 Dose: 17 gm Documented by: Quetiapine Fumarate (Quetiapine Fumarate 25 Mg Tablet) 50 mg PO HS [facility] Stop: 03/16/21 20:59 Last Admin: 02/19/21 20:39 Dose: 50 mg Documented by: PG Care Time/CCT Total # of Minutes Spent Total Time Spent with Patient: Total time spent is greater than 50% in coordination of care (as documented) at patient's floor/unit and/or counseling patient: Coding Level of Care Code 51210 Subseq Hosp Care Lvl 3 Diagnoses Subarachnoid hemorrhage I60.9 Subdural hematoma, acute S06.5X9A Septic shock A41.9; R65.21 Hypertension I10 Hypertension type: essential hypertension Hyperlipidemia E78.5 Hyperlipidemia type: unspecified Encephalopathy G93.40 Diabetes mellitus type 2, uncontrolled E11.65 Chronic respiratory failure with hypoxia J96.11 Lumbar compression fracture S32.000A DVT prophylaxis Z29.9 (1) Hyperlipidemia Hyperlipidemia type: unspecified Qualified Code(s): E78.5 - Hyperlipidemia, unspecified (2) Hypertension Hypertension type: essential hypertension Qualified Code(s): I10 - Essential (primary) hypertension
[2021-02-20] MEDS: ACETAMINOPHEN 325 MG TAB PO PRN (17:04)
[2021-02-20] MEDS: FUROSEMIDE 20 MG in SYRINGE 0 ML IV SCH (21:05)
[2021-02-20] MEDS: QUEtiapine FUMARATE 25 MG TABLET PO SCH (21:17)
[2021-02-20] MEDS: POLYETHYLENE (MIRALAX) 17 GM PACK PO PRN (21:24)
[2021-02-21] MEDS: HEPARIN SOD 5,000 UNIT/0.5 ML VIAL SQ SCH ×3 (06:06→21:01)
[2021-02-21 09:18] LABS: BUN Creatinine Ratio 20.9 (10-20); Calcium 8.3 mg/dl (8.5-10.1); Creatinine Clr Calc Pharmacy 92.8 ml/min; Est GFR (African American) 104.5 ml/min; Est GFR (Non-African American) 90.1 ml/min; Potassium 3.6 mmol/L (3.5-5.1)
[2021-02-21 09:24] LABS: Estimated Average Glucose 217 mg/dl; Hemoglobin A1C 9.2 % (4.5-5.6)
[2021-02-21] MEDS: GABAPENTIN 300 MG CAP PO SCH ×3 (09:36→20:41)
[2021-02-21] MEDS: CEFDINIR 300 MG CAP PO SCH ×2 (09:36→20:41)
[2021-02-21] MEDS: lisinopril 20 MG TAB PO SCH (09:37)
[2021-02-21] MEDS: PANTOprazole 40 MG TAB PO SCH (09:37)
[2021-02-21] MEDS: INSULIN GLARGINE SOLOSTAR 100 UNITS/ML 3 ML PEN SC SCH (09:39)
[2021-02-21] MEDS: INSULIN ASPART 100 UNITS/ML 3 ML PEN SC SCH ×4 (09:40→21:02)
[2021-02-21] MEDS: DOCUSATE SODIUM 100 MG CAP PO SCH ×2 (09:44→20:44)
[2021-02-21] MEDS: FUROSEMIDE 20 MG in SYRINGE 0 ML IV SCH ×2 (09:46→20:42)
--- NOTE | 2021-02-21 10:37 | Hospitalist Progress Note ---
Date of Service February 21, 2021 Assessment & Plan (1) Subarachnoid hemorrhage: Plan: Accidental fall out of chair reaching for bed on 02/16 Struck head on fall CT scan of the head completed with evidence of small subarachnoid hemorrhage as well as small 2 mm subdural hematoma * No loss of consciousness * No change in vital signs * This was a closed injury * No changes on physical exam including no focal neurological deficits Initially patient was accepted at [facility]. She is peripherally started on protamine and nicardipine. She was unable to be transferred overnight as there was no availability of transportation or ICU nurse per report. Repeat CT scan of the head showed stable subdural hematoma and some improvement to the subarachnoid hemorrhage. Now 72 hours out with no neurological changes or complications Last dose of enoxaparin was 40 mg subcutaneously administered 02/16/2021 at 08:09 hrs. resumed heparin 5000 units subcutaneously every 12 hours on 02/19 (2) Subdural hematoma, acute: Plan: Accidental fall with no loss of consciousness. No lightheadedness or dizziness. This was a closed wound No tenderness to palpation No obvious acute cranial deformities See treatment above (3) Septic shock: Plan: Patient presented with septic shock secondary to urinary tract infection with bacteremia on 02/14/2021. Blood and urine cultures with pansensitive Klebsiella pneumoniae Procalcitonin 4.04 Completed 3 days of IV Zosyn. Lactic acid corrected to 1.0 Hypotension resolved and patient now off of Levophed Patient downgraded from intensive care to telemetry yesterday. Discontinued Zosyn and de-escalated antibiotics to ceftriaxone 02/16/2021 Today is day #7 of antibiotics complete 7 days of IV antibiotics, can change to Cefdinir for 7 more days tomorrow (4) Hypertension: Plan: Continue lisinopril 20 mg p.o. daily Hemodynamically stable slightly volume overloaded, likely from initial sepsis treatment with fluids great response to Lasix 20mg IV in evening on 02/19 continues to respond after dose this morning, 02/20 will order Lasix 20 q12, continue until Cr rises or she does not diurese (5) Hyperlipidemia: Plan: Continue atorvastatin (6) Encephalopathy: Plan: CT head on admission without any acute findings Suspect this is metabolic secondary to septic shock and infection with pansensitive Klebsiella pneumonia Status continues to improve Currently day #7 of antibiotics (7) Diabetes mellitus type 2, uncontrolled: Plan: Poorly controlled with hemoglobin A1c 15.3 in December Glycemic control consult placed. Appreciate pharmacy's input Continue to hold oral agents. We will continue basal insulin with Lantus and follow with sliding scale with NovoLog (8) Chronic respiratory failure with hypoxia: Plan: Patient on chronic supplemental oxygen at home at 2 L/min via nasal cannula Continue to maintain SaO2 at 90%, she is down to 3L today after giving Lasix Patient denies any shortness of breath or chest pain. Continue to titrate supplemental oxygen as tolerated (9) Lumbar compression fracture: Plan: Acute compression fracture at L3 Patient is now more alert and oriented. Will prescribe oxycodone 5 mg p.o. every 4 hours for pain Tylenol also available [facility] consulted Poor surgical candidate as well as poor bracing candidate Continue conservative management Continue PT/OT (10) DVT prophylaxis: Plan: heparin 5000 units subcutaneously every 12 hours starting today Plan: Disposition: Patient is improving medically. Anticipate the patient will be discharged home with home health she is very weak, click scores of 9 and 12 on OT/PT, she is refusing to consider SNF see if she can improve her strength with therapy tomorrow and Sunday asked her to reconsider SNF but she still wants home health discussed that she might be ready by late Sunday or Sunday Admission and Anticipated Discharge Date Admission Date: February 14, 2021 Subjective Patient reports feeling better today. She has no new comlaints. Review of Systems Review of Systems: General: Patient denies fevers, chills Skin: Patient denies bruising, bleeding or rash HEENT: Patient denies headache, visual changes, sore throat, difficulty swallowing, stiff neck Cardio: Patient denies chest pain, palpitations, shortness of breath, lightheadedness Pulmonary: +cough, Patient denies wheeze GI: Patient denies abdominal pain, nausea, vomiting, diarrhea : Patient denies dysuria, frequency, urgency or hematuria Musculoskeletal: Patient denies swelling or pain of the joints, edema Neuro: Patient denies focal numbness, tingling, weakness or falls Psych: Patient denies depression, anxiety Physical Exam Physical Exam: Constitutional: well developed, well nourished, + obese and comfortable; no acute distress Neck: trachea midline, no thyromegaly Respiratory: normal respiratory effort and + cough; no respiratory distress Auscultation: + diminished lung sounds (bases); no crackles, no rales and no wheezes Cardiovascular: RRR, no murmur, no edema Gastrointestinal (Abdomen): normal bowel sounds, soft, nontender, no hepatosplenomegaly Musculoskeletal: Extremities: extremities normal to inspection and + abnormal strength (generalized weakness) Skin: no rashes, warm and dry Neurologic: normal touch/pain/proprioception, CN's II-XI intact bilaterally, moves all extremities and awake; no focal motor deficits Psychiatric: A+Ox3, euthymic affect Results & Data Results & Data ([facility]) Vital Signs (Past 12 Hours) Vital Signs Temp Pulse Resp BP Pulse Ox 02/21/21 07:17 36.7 C 72 20 146/80 H 96 PG Care Time/CCT Total # of Minutes Spent Total Time Spent with Patient: Total time spent is greater than 50% in coordination of care (as documented) at patient's floor/unit and/or counseling patient: Coding Level of Care Code 40636 Subseq Hosp Care Lvl 2 Diagnoses Subarachnoid hemorrhage I60.9 Subdural hematoma, acute S06.5X9A Septic shock A41.9; R65.21 Hypertension I10 Hypertension type: essential hypertension Hyperlipidemia E78.5 Hyperlipidemia type: unspecified Encephalopathy G93.40 Diabetes mellitus type 2, uncontrolled E11.65 Chronic respiratory failure with hypoxia J96.11 Lumbar compression fracture S32.000A DVT prophylaxis Z29.9 Time Spent (min) 25 (1) Hyperlipidemia Hyperlipidemia type: unspecified Qualified Code(s): E78.5 - Hyperlipidemia, unspecified (2) Hypertension Hypertension type: essential hypertension Qualified Code(s): I10 - Essential (primary) hypertension
[2021-02-21] MEDS: ACETAMINOPHEN 325 MG TAB PO PRN ×2 (10:43→21:53)
[2021-02-21] MEDS: POLYETHYLENE (MIRALAX) 17 GM PACK PO PRN (20:30)
[2021-02-21] MEDS: QUEtiapine FUMARATE 25 MG TABLET PO SCH (20:42)
[2021-02-22] MEDS: HEPARIN SOD 5,000 UNIT/0.5 ML VIAL SQ SCH ×3 (06:18→21:37)
[2021-02-22 07:55] LABS: BUN Creatinine Ratio 31.2 (10-20); Calcium 8.8 mg/dl (8.5-10.1); Creatinine Clr Calc Pharmacy 119.7 ml/min; Est GFR (African American) 113.7 ml/min; Est GFR (Non-African American) 98.1 ml/min; Potassium 3.9 mmol/L (3.5-5.1)
[2021-02-22] MEDS: GABAPENTIN 300 MG CAP PO SCH ×3 (09:43→20:01)
[2021-02-22] MEDS: lisinopril 20 MG TAB PO SCH (09:44)
[2021-02-22] MEDS: PANTOprazole 40 MG TAB PO SCH (09:44)
[2021-02-22] MEDS: FUROSEMIDE 20 MG in SYRINGE 0 ML IV SCH ×2 (09:44→20:02)
[2021-02-22] MEDS: CEFDINIR 300 MG CAP PO SCH ×2 (09:45→20:01)
[2021-02-22] MEDS: DOCUSATE SODIUM 100 MG CAP PO SCH ×2 (09:47→20:40)
[2021-02-22] MEDS: POLYETHYLENE (MIRALAX) 17 GM PACK PO PRN (09:47)
[2021-02-22] MEDS: INSULIN GLARGINE SOLOSTAR 100 UNITS/ML 3 ML PEN SC SCH (09:48)
[2021-02-22] MEDS: INSULIN ASPART 100 UNITS/ML 3 ML PEN SC SCH ×4 (09:48→20:38)
--- NOTE | 2021-02-22 12:51 | Pharmacy Report ---
Pharmacy Glycemic Short Note 2 - Date of Service February 22, 2021 - Glycemic Short BSG Results (Last 24 hours): 02/21/21 02/21/21 02/22/21 17:03 20:58 07:14 Glucose 134 H POC Glucose 111 H 184 H 02/22/21 02/22/21 08:01 12:01 Glucose POC Glucose 133 H 209 H OUTPATIENT ANTIDIABETIC REGIMEN: Prior to recent admit December 2020 * Sitagliptin * HbA1c 15.3% on 01/09/21 Changes to regimen on discharge 01/22/21 * Lantus 25 units SC daily added * Metformin 500 mg po daily added ASSESSMENT: 02/22: * Traci received a total of 61 units of insulin over the past 24 hours * 28 units basal + 33 units bolus * BSGs yesterday were: 174-283-809-184 mg/dL - acceptable * Carb ratio was tightened yesterday morning * Fasting BSG controlled at 133 mg/dL this AM * No changes to insulin regimen required today 02/20: * Pt has received 49 units of insulin over the past 24hrs * 25 units of basal with Lantus * 24 units of bolus with NovoLog * BSGs [phone] mg/dl * AM fasting BSG trending upwards 133 yesterday 160 today. Will slightly increase basal insulin from 25 to 28 units * No changes needed to CF/CR as post-prandial BSGs are in goal range. PLAN FOR INPATIENT GLYCEMIC CONTROL: * Hold outpatient oral diabetes medications * Basal insulin - no change * Lantus 28 units SC AM * Bolus insulin - no change * Goal Range 110-140 mg/dL * Correction factor 20 mg/dl/unit * Carb Ratio 1 unit per 5 grams CHO consumed PLAN FOR DISCHARGE: * HbA1c much improved to 9.2%. * Consider increasing Lantus to 28 units SC AM. No other changes recommended.
[2021-02-22 17:20] LABS: Hematocrit (blood only) 35.2 % (37-47); Hemoglobin 11.1 g/dL (12.0-16.0); Mean Corpuscular Hemoglobin 31.2 pg (25-34); Mean Corpuscular Hgb Conc 31.5 g/dL (32-36); Mean Corpuscular Volume 98.9 fL (80-100); Mean Platelet Volume 8.2 fL (7.4-10.4); Platelet Count 671 K/uL (130-400); RDW Coefficient of Variation 15.6 % (11.5-14.5); RDW Standard Deviation 57.1 fL (36.4-46.3); Red Blood Count 3.56 M/uL (4.2-5.4); White Blood Count 9.62 K/uL (4.8-10.8)
[2021-02-22] MEDS: ACETAMINOPHEN 325 MG TAB PO PRN (20:00)
[2021-02-22] MEDS: QUEtiapine FUMARATE 25 MG TABLET PO SCH (20:01)
--- NOTE | 2021-02-22 20:56 | Hospitalist Progress Note ---
Date of Service February 22, 2021 Assessment & Plan (1) Subarachnoid hemorrhage: Plan: Accidental fall out of chair reaching for bed on 02/16 Struck head on fall CT scan of the head completed with evidence of small subarachnoid hemorrhage as well as small 2 mm subdural hematoma * No loss of consciousness * No change in vital signs * This was a closed injury * No changes on physical exam including no focal neurological deficits Initially patient was accepted at [facility]. She is peripherally started on protamine and nicardipine. She was unable to be transferred overnight as there was no availability of transportation or ICU nurse per report. Repeat CT scan of the head showed stable subdural hematoma and some improvement to the subarachnoid hemorrhage. Now 72 hours out with no neurological changes or complications Last dose of enoxaparin was 40 mg subcutaneously administered 02/16/2021 at 08:09 hrs. resumed heparin 5000 units subcutaneously every 12 hours on 02/19 (2) Subdural hematoma, acute: Plan: Accidental fall with no loss of consciousness. No lightheadedness or dizziness. This was a closed wound No tenderness to palpation No obvious acute cranial deformities See treatment above (3) Septic shock: Plan: Patient presented with septic shock secondary to urinary tract infection with bacteremia on 02/14/2021. Blood and urine cultures with pansensitive Klebsiella pneumoniae Procalcitonin 4.04 Completed 3 days of IV Zosyn. Lactic acid corrected to 1.0 Hypotension resolved and patient now off of Levophed Patient downgraded from intensive care to telemetry yesterday. Discontinued Zosyn and de-escalated antibiotics to ceftriaxone 02/16/2021 Today is day #9 of antibiotics complete 7 days of IV antibiotics, can change to Cefdinir for 7 more days tomorrow (4) Hypertension: Plan: Continue lisinopril 20 mg p.o. daily Hemodynamically stable slightly volume overloaded, likely from initial sepsis treatment with fluids great response to Lasix 20mg IV in evening on 02/19 continues to respond after dose this morning, 02/20 will order Lasix 20 q12, continue until Cr rises or she does not diurese (5) Hyperlipidemia: Plan: Continue atorvastatin (6) Encephalopathy: Plan: CT head on admission without any acute findings Suspect this is metabolic secondary to septic shock and infection with pansensitive Klebsiella pneumonia Status continues to improve Currently day #9 of antibiotics (7) Diabetes mellitus type 2, uncontrolled: Plan: Poorly controlled with hemoglobin A1c 15.3 in December Glycemic control consult placed. Appreciate pharmacy's input Continue to hold oral agents. We will continue basal insulin with Lantus and follow with sliding scale with NovoLog (8) Chronic respiratory failure with hypoxia: Plan: Patient on chronic supplemental oxygen at home at 2 L/min via nasal cannula Continue to maintain SaO2 at 90%, she is down to 3L today after giving Lasix Patient denies any shortness of breath or chest pain. Continue to titrate supplemental oxygen as tolerated (9) Lumbar compression fracture: Plan: Acute compression fracture at L3 Patient is now more alert and oriented. Will prescribe oxycodone 5 mg p.o. every 4 hours for pain Tylenol also available [facility] consulted Poor surgical candidate as well as poor bracing candidate Continue conservative management Continue PT/OT (10) DVT prophylaxis: Plan: heparin 5000 units subcutaneously every 12 hours starting today Plan: Disposition: Patient is improving medically. Anticipate the patient will be discharged home with home health she is very weak, click scores of 9 and 12 on OT/PT, she is refusing to consider SNF see if she can improve her strength with therapy tomorrow and Sunday asked her to reconsider SNF but she still wants home health discussed that she might be ready by Sunday Admission and Anticipated Discharge Date Admission Date: February 14, 2021 Subjective 70 yo female reports no new symptoms today. Updated daughter at bedside. Review of Systems Review of Systems: All systems reviewed & are unremarkable except as noted in HPI & below Physical Exam Physical Exam: Constitutional: well developed, well nourished, + obese and comfortable; no acute distress Neck: trachea midline, no thyromegaly Respiratory: normal respiratory effort and + cough; no respiratory distress Auscultation: + diminished lung sounds (bases); no crackles, no rales and no wheezes Cardiovascular: RRR, no murmur, no edema Gastrointestinal (Abdomen): normal bowel sounds, soft, nontender, no hepatosplenomegaly Musculoskeletal: Extremities: extremities normal to inspection and + abnormal strength (generalized weakness) Skin: no rashes, warm and dry Neurologic: normal touch/pain/proprioception, CN's II-XI intact bilaterally, moves all extremities and awake; no focal motor deficits Psychiatric: A+Ox3, euthymic affect Results & Data Results & Data ([facility]) Vital Signs (Past 12 Hours) Vital Signs Temp Pulse Resp BP Pulse Ox 02/22/21 15:33 36.8 C 84 18 112/54 L 96 PG Care Time/CCT Total # of Minutes Spent Total Time Spent with Patient: Total time spent is greater than 50% in coordination of care (as documented) at patient's floor/unit and/or counseling patient: Coding Level of Care Code 07725 Subseq Hosp Care Lvl 2 Diagnoses Subarachnoid hemorrhage I60.9 Subdural hematoma, acute S06.5X9A Septic shock A41.9; R65.21 Hypertension I10 Hypertension type: essential hypertension Hyperlipidemia E78.5 Hyperlipidemia type: unspecified Encephalopathy G93.40 Diabetes mellitus type 2, uncontrolled E11.65 Chronic respiratory failure with hypoxia J96.11 Lumbar compression fracture S32.000A DVT prophylaxis Z29.9 (1) Hyperlipidemia Hyperlipidemia type: unspecified Qualified Code(s): E78.5 - Hyperlipidemia, unspecified (2) Hypertension Hypertension type: essential hypertension Qualified Code(s): I10 - Essential (primary) hypertension
[2021-02-23] MEDS: HEPARIN SOD 5,000 UNIT/0.5 ML VIAL SQ SCH (06:47)
--- NOTE | 2021-02-23 08:32 | Pharmacy Report ---
Pharmacy Glycemic Short Note 2 - Date of Service February 23, 2021 - Glycemic Short BSG Results (Last 24 hours): 02/22/21 02/22/21 02/22/21 12:01 17:03 20:36 POC Glucose 209 H 149 H 201 H 02/23/21 08:11 POC Glucose 154 H OUTPATIENT ANTIDIABETIC REGIMEN: Prior to recent admit December 2020 * Sitagliptin * HbA1c 15.3% on 01/09/21 Changes to regimen on discharge 01/22/21 * Lantus 25 units SC daily added * Metformin 500 mg po daily added ASSESSMENT: 02/23: * Patient received a total of 79 units of insulin yesterday * 28 units basal + 51 units bolus * BSGs were elevated: 147-499-209-201 mg/dL * There has been a trend of hyperglycemia following breakfast and dinner meals * Therefore, will trial a tightened correction factor and carb ratio with these meals today * Fasting BSG did increase to 154 mg/dL this AM * Will increase basal very slightly 02/22: * Traci received a total of 61 units of insulin over the past 24 hours * 28 units basal + 33 units bolus * BSGs yesterday were: 153-831-649-184 mg/dL - acceptable * Carb ratio was tightened yesterday morning * Fasting BSG controlled at 133 mg/dL this AM * No changes to insulin regimen required today 02/20: * Pt has received 49 units of insulin over the past 24hrs * 25 units of basal with Lantus * 24 units of bolus with NovoLog * BSGs [phone] mg/dl * AM fasting BSG trending upwards 133 yesterday 160 today. Will slightly increase basal insulin from 25 to 28 units * No changes needed to CF/CR as post-prandial BSGs are in goal range. PLAN FOR INPATIENT GLYCEMIC CONTROL: * Hold outpatient oral diabetes medications * Basal insulin - increased * Lantus 30 units SC AM * Bolus insulin - tightened CF/CR w/ breakfast and dinner * Goal Range 110-140 mg/dL * Breakfast/Dinner: Correction factor 15 mg/dl/unit & Carb Ratio 1 unit per 4 grams CHO consumed * Lunch/Bedtime: Correction factor 20 mg/dl/unit & Carb Ratio 1 unit per 5 grams CHO consumed PLAN FOR DISCHARGE: * HbA1c much improved to 9.2%. * Consider increasing Lantus to 28 units SC AM. No other changes recommended.
[2021-02-23] MEDS ORDERED: INSULIN GLARGINE SOLOSTAR 100 UNITS/ML 3 ML PEN SC SCH (09:00)
[2021-02-23] MEDS: GABAPENTIN 300 MG CAP PO SCH ×2 (09:09→13:48)
[2021-02-23] MEDS: CEFDINIR 300 MG CAP PO SCH (09:09)
[2021-02-23] MEDS: lisinopril 20 MG TAB PO SCH (09:09)
[2021-02-23] MEDS: PANTOprazole 40 MG TAB PO SCH (09:09)
[2021-02-23] MEDS: INSULIN ASPART 100 UNITS/ML 3 ML PEN SC SCH ×2 (09:14→13:47)
[2021-02-23] MEDS: FUROSEMIDE 20 MG in SYRINGE 0 ML IV SCH (09:16)
[2021-02-23] MEDS: DOCUSATE SODIUM 100 MG CAP PO SCH (09:16)
--- NOTE | 2021-02-25 07:17 | Discharge Summary ---
Date of Service February 23, 2021 Admission HPI Per Admitting Provider Traci Roman is a 70yo female with history of DM, HTN, HLP presenting after fall x 2, weakness and fatigue. On initial presentation patient was febrile to 38.2, tachycardic at 113bpm and hypotensive to 65/50. Patient denies complaint of chest pain, worsening cough or sputum, SOB, abdominal pain, nausea, vomiting, diarrhea. She is unable to recall when her last BM was. She is also complaining of some mild low back pain as well as decreased appetite. No additional complaints at this time. Patient was administered 2 L of crystalloid with transient improvement in blood pressure followed by decline. She was started on Levophed 0.1mcg/kg/min and a 3rd liter of fluid is now running. She has had improvement in her blood pressures - presently 98/58. She is awake and alert, answers most questions appropriately but does seem mildly confused. She continues asking when she will be able to go home. She has a right AC PIV in place and has refused placement of additional peripheral or central venous access. Of note, patient was hospitalized from January 08 - with low back pain and hyperglycemia. She progressed to septic/hypovolemic shock and found to have a small bowel obstruction related to her large ventral hernia. She was managed conservatively in the MICU. She was ultimately discharged to rehab then subsequently returned home. ER Course: NSS x 3L, Levophed, Cefepime Principal Diagnosis subarachnoid hemmorhage. Discharge Exam Constitutional: well developed, well nourished, + obese and comfortable; no acute distress Neck: trachea midline, no thyromegaly Respiratory: normal respiratory effort;no respiratory distress Auscultation: + diminished lung sounds (bases); no crackles, no rales and no wheezes Cardiovascular: RRR, no murmur, no edema Gastrointestinal (Abdomen): normal bowel sounds, soft, nontender, no hepatosplenomegaly Musculoskeletal: Extremities: extremities normal to inspection Skin: no rashes, warm and dry Neurologic: normal touch/pain/proprioception, CN's II-XI intact bilaterally, moves all extremities and awake; no focal motor deficits Psychiatric: A+Ox3, euthymic affect Discharge Data Allergies Allergy/AdvReac Type Severity Reaction Status Date / Time latex Allergy Severe 2ND DEGREE Verified 02/14/21 02:51 BURN FROM BANDAGE adhesive Allergy Intermediate RASH Verified 02/14/21 02:51 Consultations 02/14/21 05:07 ED Decision to Admit Stat 02/14/21 07:07 Consult Chicken Raiser Routine 02/14/21 10:23 Consult Palliative Care Routine 02/14/21 12:02 Consult Urology Routine 02/14/21 13:49 Consult Orthopedic Surgery Routine 02/16/21 16:13 Burn CD for patient Stat 02/16/21 16:36 Burn CD for patient Stat Ordered Studies 02/14/21 04:38 CT cervical spine wo con Urgent CT facial bones wo con Urgent CT head/brain wo con Urgent 02/14/21 05:50 CT abd pelvis wo con Stat 02/15/21 10:08 CT lumbar spine wo con Routine 02/16/21 14:52 CT head/brain wo con Stat 02/16/21 20:00 CT head/brain wo con Urgent 02/17/21 08:30 CT head/brain wo con Urgent Diabetes Follow up Diabetes Follow-up Needed for HgbA1c >9% Hospital Course (1) Subarachnoid hemorrhage: Accidental fall out of chair reaching for bed on 02/16 Struck head on fall CT scan of the head completed with evidence of small subarachnoid hemorrhage as well as small 2 mm subdural hematoma * No loss of consciousness * No change in vital signs * This was a closed injury * No changes on physical exam including no focal neurological deficits Initially patient was accepted at [facility]. She is peripherally started on protamine and nicardipine. She was unable to be transferred overnight as there was no availability of transportation or ICU nurse per report. Repeat CT scan of the head showed stable subdural hematoma and some improvement to the subarachnoid hemorrhage. Now 72 hours out with no neurological changes or complications Last dose of enoxaparin was 40 mg subcutaneously administered 02/16/2021 at 08:09 hrs. resumed heparin 5000 units subcutaneously every 12 hours on 02/19 (2) Subdural hematoma, acute: Accidental fall with no loss of consciousness. No lightheadedness or dizziness. This was a closed wound No tenderness to palpation No obvious acute cranial deformities See treatment above (3) Septic shock: Patient presented with septic shock secondary to urinary tract infection with bacteremia on 02/14/2021. Blood and urine cultures with pansensitive Klebsiella pneumoniae Procalcitonin 4.04 Completed 3 days of IV Zosyn. Lactic acid corrected to 1.0 Hypotension resolved and patient now off of Levophed Patient downgraded from intensive care to telemetry yesterday. Discontinued Zosyn and de-escalated antibiotics to ceftriaxone 02/16/2021 Today is day #9 of antibiotics complete 7 days of IV antibiotics, can change to Cefdinir for 7 more days tomorrow (4) Hypertension: Continue lisinopril 20 mg p.o. daily Hemodynamically stable slightly volume overloaded, likely from initial sepsis treatment with fluids great response to Lasix 20mg IV in evening on 02/19 continues to respond after dose this morning, 02/20 will order Lasix 20 q12, continue until Cr rises or she does not diurese (5) Hyperlipidemia: Continue atorvastatin (6) Encephalopathy: CT head on admission without any acute findings Suspect this is metabolic secondary to septic shock and infection with pansensitive Klebsiella pneumonia Status continues to improve Currently day #10 of antibiotics continue cefdinir for 5 more days. (7) Diabetes mellitus type 2, uncontrolled: Poorly controlled with hemoglobin A1c 15.3 in December Glycemic control consult placed. Appreciate pharmacy's input Continue to hold oral agents. We will continue basal insulin with Lantus and follow with sliding scale with NovoLog (8) Chronic respiratory failure with hypoxia: Patient on chronic supplemental oxygen at home at 2 L/min via nasal cannula Continue to maintain SaO2 at 90%, she is down to 3L today after giving Lasix Patient denies any shortness of breath or chest pain. Continue to titrate supplemental oxygen as tolerated (9) Lumbar compression fracture: Acute compression fracture at L3 Patient is now more alert and oriented. Will prescribe oxycodone 5 mg p.o. every 4 hours for pain Tylenol also available [facility] consulted Poor surgical candidate as well as poor bracing candidate Continue conservative management Continue PT/OT (10) DVT prophylaxis: heparin 5000 units subcutaneously every 12 hours starting today Disposition: discharged with home health Total Time Total Time Spent Total Time Spent (In Minutes): 32 Discharge Plan Discharge Items Patient Disposition: Home - Home Health Services Reason For Visit: HYPOTENSION, FALLS Discharge Diagnosis: Subarrachnoid hemorrhage, subdural hematoma Condition on Discharge: Critical Activity: Per Instructions section Activity Comment: stay in bed for transfer Non-emergency contact: Primary Care Provider Call non-emergency contact if: you have any medication questions Follow-up/Referrals: Kristal Pham CRNP [Primary Care Provider] - 03/04/21 1:00 pm (NOTE OFFICE WILL BE MOVING LOCATIONS. YOU APPT WILL BE AT THE [facility] LOCATION.) Diet: Carb Consistent or DM2 Addtl Attending Provider Instructions: recommend followup with PCP in 1-2 weeks. Continue antibiotics for 5 more days for urinary infection. Pending Studies at Discharge: No Stand-Alone Forms: My [facility] SIPphone, Smoking Cessation Medications and DC Order Prescriptions: New cefdinir 300 mg Capsule 300 mg PO Q12 Qty: 10 RF: 0 Continued quetiapine [Seroquel] 50 mg tablet 50 mg PO HS RF: 0 atorvastatin [Lipitor] 80 mg Tablet 80 mg PO HS RF: 0 aspirin [Aspirin Low Dose] 81 mg Tablet,Delayed Release (Dr/Ec) 81 mg PO QPM RF: 0 cholecalciferol (vitamin D3) [Vitamin D3] 2,000 unit Capsule 2,000 unit PO QAM RF: 0 gabapentin 300 mg Capsule 300 mg PO TID RF: 0 lisinopril 20 mg tablet 20 mg PO DAILY RF: 0 cyanocobalamin (vitamin B-12) 1,000 mcg/mL Solution 1,000 mcg IM MONTHLY RF: 0 Januvia 100 mg tablet 100 mg PO QPM RF: 0 Lantus Solostar U-100 Insulin 100 unit/mL (3 mL) Insulin Pen 25 unit SC QAM Qty: 15 RF: 0 metformin 500 mg tablet 500 mg PO DAILY Qty: 30 RF: 0 Discharge Orders: Discharge Order (Routine); Ordered 02/23/21 Ordered By: Paul [facility]/Other Patient Handouts: A1C, Managing Type 2 Diabetes Admission Data Admit Date/Time: 02/14/21 05:42 Attending Provider: Paul Parr Admit Provider: Syl Gold Primary Care Provider: Kristal Pham Other Providers: Delfin Guzman ; Chyna Vizcaino ; Syl Gold ; Cuco Gonzalez ; Lamar Montenegro ; Ash Lyn ; Gee Malloy ; Boris Gonzales ; Anna Kirkpatrick ; Satnam Castillo ; Elsa Oates ; Flory De Souza ; Dalia Hernandez ; Chava Bartholomew ; Rocco Flor ; Shelbi Sullivan ; Kelli Hernandez ; Cuco Smith ; Bill Foy ; Abner Khan ; Christina Mckeon ; Rocco Lloyd ; Eli Ramos ; Pro Buchanan ; Boris Mosley ; Shawn Cali ; Zhen Cramer ; Boris Pena ; Darryl Rahman ; Adalberto Almazan ; Kunal Hicks ; Andres Pham ; Eli Carvajal ; Barndyn Lainez ; Rian Castillo ; Malinda Hsu ; [place] ; Anna Parks ; [employer] [facility] Other Interventions: Discharge Summary Assessment (RN) Last Done: 02/23/21 14:27 Coding Level of Care Code D/C DAY MANAGEMENT >30 MINS Diagnoses Subarachnoid hemorrhage I60.9 Subdural hematoma, acute S06.5X9A Septic shock A41.9; R65.21 Hypertension I10 Hypertension type: essential hypertension Hyperlipidemia E78.5 Hyperlipidemia type: unspecified Encephalopathy G93.40 Diabetes mellitus type 2, uncontrolled E11.65 Chronic respiratory failure with hypoxia J96.11 Lumbar compression fracture S32.000A DVT prophylaxis Z29.9
== END 2021-02-23 15:00 | disposition home health service (06) | DRG 871 ==
LOC: ED 02:21 → SUATTDRO 05:42 → 1E 05:42 → 3N 02-19 09:25

== ENCOUNTER 2021-12-12 05:27 | Inpatient (IN) ==
[2021-12-12] MEDS ORDERED: RAPID SEQUENCE INDUCTION BAG ONE (05:29)
[2021-12-12] MEDS ORDERED: NOREPINEPHRINE/D5W 4 MG/250 ML IV ONE (05:46)
[2021-12-12 06:13] LABS: iSTAT Arterial Blood Gas HCO3 26 meg/L (19-24); iSTAT Arterial Blood Gas pCO2 73 mmHg (35-46); iSTAT Arterial Blood Gas pH 7.15 (7.35-7.45); iSTAT Arterial Blood Gas pO2 155 mmHg (80-95); iSTAT Carbon Dioxide 28 mmol/L (24-31); iSTAT Hematocrit 24 % (37-47); iSTAT Hemoglobin 8.2 g/dl (12.0-16.0); iSTAT Potassium 4.5 mmol/L (3.3-5.0); iSTAT Sodium 130 mmol/L (135-144)
[2021-12-12 06:13] LABS: iSTAT Hemoglobin 8.5 g/dl (12.0-16.0); iSTAT Ionized Calcium 1.1 mmol/l (1.12-1.32); iSTAT Potassium 4.8 mmol/L (3.3-5.0)
[2021-12-12 06:22] LABS: INR 1.1 (0.9-1.1); Partial Thromboplastin Ratio 1.3; Partial Thromboplastin Time 34.9 Seconds (21.0-31.0)
[2021-12-12 06:25] LABS: Mean Corpuscular Hemoglobin 28.7 pg (25-34); Mean Corpuscular Volume 102.5 fL (80-100); Platelet Count 390 K/uL (130-400); RDW Coefficient of Variation 17.7 % (11.5-14.5); RDW Standard Deviation 64.6 fL (36.4-46.3); Red Blood Count 2.44 M/uL (4.2-5.4); White Blood Count 14.88 K/uL (4.8-10.8)
[2021-12-12 06:36] LABS: Alanine Aminotransferase 11 U/L (7-52); Albumin Globulin Ratio 1.1 (0.9-2); Albumin Level 3.5 gm/dl (3.4-5.0); Alkaline Phosphatase 73 U/L (34-104); Anion Gap 13 (3-11); Aspartate Aminotransferase 27 U/L (13-39); BUN Creatinine Ratio 25.4 (10-20); Bilirubin,Total 0.5 mg/dl (0.2-1.0); Blood Urea Nitrogen 44 mg/dl (6-23); Carbon Dioxide 24 mmol/L (21-32); Chloride 93 mmol/L (98-107); Est GFR (African American) 34.1 ml/min; Est GFR (Non-African American) 29.4 ml/min; Globulin 3.1 gm/dl (2.5-4.0); Glucose 93 mg/dl (70-99(Fasting)); Magnesium 1.5 mg/dl (1.7-2.4); Potassium 4.8 mmol/L (3.5-5.1); Sodium 130 mmol/L (136-145); Total Protein 6.6 gm/dl (6.0-8.3)
[2021-12-12] MEDS ORDERED: PIPERACILLIN/TAZOBACTAM 4.5 GM/120 ML BAG IV ONE (06:39)
[2021-12-12] MEDS ORDERED: levoFLOXacin/D5W 750 MG/150 ML BAG IV STA (06:39)
[2021-12-12 06:40] LABS: Troponin I High Sensitivity 146.5 pg/ml (0-14)
[2021-12-12 06:50] LABS: Appearance Urine Cloudy (Clear); Bacteria Urine Automated Negative (Negative); Bilirubin Urine Negative (Negative); Blood Urine Negative (Negative); Color Urine Dark Yellow; Epithelial Cell Urine Auto >30 /lpf (0-5); Glucose Urine UA Negative (Negative); Ketones Urine Negative (Negative); Leukocyte Esterase Urine 1+ (Negative); Nitrite Urine Negative (Negative); Protein Urine 1+ (Negative); Specific Gravity Urine 1.018 (1.000-1.030); Urobilinogen Urine Negative (Negative); WBC Urine Automated >30 /hpf (0-5)
[2021-12-12 06:52] LABS: Basophilic Stippling 1+; Basophils # (auto) 0.01 K/uL (0-0.2); Basophils % (auto) 0.1 %; Eosinophils # (auto) 0.17 K/uL (0-0.5); Eosinophils % (auto) 1.1 %; Immature Granulocytes # (auto) 0.05 K/uL (0.00-0.02); Immature Granulocytes % (auto) 0.3 %; Lymphocytes # (auto) 0.44 K/uL (1.2-3.4); Monocytes # (auto) 1.14 K/uL (0.11-0.59); Monocytes % (auto) 7.7 %; Neutrophils # (auto) 13.07 K/uL (1.4-6.5); Neutrophils % (auto) 87.8 %; Polychromasia 1+
--- NOTE | 2021-12-12 06:57 | CT Scan Report ---
CT OF THE CHEST WITHOUT IV CONTRAST CLINICAL HISTORY: Intubated. Evaluate left lung. COMPARISON STUDY: Chest CT August 01, 2021. Chest radiograph December 12, 2021. CT DOSE: 2446.06 mGy.cm TECHNIQUE: Axial images of the chest were obtained without IV contrast. Images were reviewed in the axial, sagittal, and coronal planes. IV contrast was not administered for this examination. Automat ed exposure control was utilized for the study. A dose lowering technique was utilized adhering to t he principles of ALARA. FINDINGS: Tip of endotracheal tube is 3.2 cm above the michelle. Tip of nasogastric tube is within the body of the stomach. Right shoulder arthroplasty is noted. Chronic deformity of the left shoulder is incidentally noted. Moderate cardiomegaly is noted. There is no pericardial effusion. Mildly enlarge d mediastinal lymph nodes have slightly increased in size since CT of August 01, 2021. Index precari nal lymph node on image [id number] 301 measures 2.1 x 1.7 cm. There is no pneumothorax. There are trace bila teral pleural effusions. Extensive left lung airspace opacity is noted with volume loss. Subpleural r ight lung airspace opacities, greatest within the right middle lobe, favor atelectasis. Mild interlob ular septal thickening is noted. Mild secretions within the trachea and mainstem bronchi are present. No acute fracture or suspicious lesion within the visualized bony thorax. IMPRESSION: 1. Extensive left lung airspace opacities with volume loss. This could reflect pneumonia, aspiration pneumonitis or atelectasis. Right lung airspace opacities which favor atelectasis. 2. Cardiomegaly. Suspected mild interstitial pulmonary edema. Trace bilateral effusions. 3. Mildly enlarged mediastinal lymph nodes. These may be reactive. Follow up chest CT in 6 months is recommended. ACT 112: Negative or not required by law. Electronically signed by: Alan Sanches M.D. 12/12/2021 6:54 AM
--- NOTE | 2021-12-12 06:57 | XRay Report ---
XR chest 1V portable supine CLINICAL HISTORY: cardiac pt COMPARISON STUDY: Chest CT August 01, 2021. FINDINGS: Tip of endotracheal tube is 5.2 cm above the michelle. Right shoulder arthroplasty is inciden tally noted. Prominence of the aortic arch is likely due to supine technique. Extensive left lung air space opacities noted. Right midlung airspace opacity is present. There is no pneumothorax. No defini te pleural effusion. Cardiomegaly is noted. Chronic deformity of the left shoulder is present. IMPRESSION: 1. Tip of endotracheal tube 5.2 cm above the michelle. 2. Extensive left lung airspace opacity which could reflect pneumonia or atelectasis. Right midlung o pacity which favors atelectasis. 3. Cardiomegaly. Pulmonary vascular congestion. 4. Prominence of the aortic arch which is likely due to supine technique. ACT 112: Negative or not required by law. Electronically signed by: Alan Sanches M.D. 12/12/2021 6:56 AM
--- NOTE | 2021-12-12 07:05 | CT Scan Report ---
CT head/brain wo con CLINICAL HISTORY: altered ms Technique: Contiguous axial CT images of the head were acquired from the base of the skull to the judd marco without intravenous contrast administration. Images were viewed in brain, subdural and bone [facility]. Automated dose lowering techniques and/or adjustment according to patient size were utilized for this exam. Comparison: Comparison is made to CT head 02/07/2021 Findings: Areas of decreased attenuation are present in the periventricular and subcortical white matter bilate rally consistent with small vessel ischemic disease. Generalized cerebral atrophy with commensurate e nlargement of the ventricles, sulci, and cisterns is also present. There is no acute intracranial hem orrhage or evidence of acute territorial infarction. No shift of the midline structures, mass effect, or extra-axial abnormalities are shown. Atherosclerotic calcifications are present in the intracran ial segments of the internal carotid arteries. Left maxillary sinus opacification is seen. There is mucous thickening multiple multiple ethmoid air cells and frontal sinuses. The orbits appear normal. There are no acute fractures of the calvaria or scalp swelling. Impression: No acute intracranial hemorrhage, no evidence of acute territorial infarction or other acute intracra nial disease process. Sinus disease. ACT 112: Negative or not required by law. Electronically signed by: Jerry White M.D. 12/12/2021 7:04 AM
[2021-12-12] MEDS ORDERED: STAT IV Infusion **Titration per Protocol STA ×2 (07:07→20:02)
[2021-12-12] MEDS ORDERED: SODIUM CHLORIDE 0.9% 250 ML IV PRN (07:07)
--- NOTE | 2021-12-12 07:24 | History & Physical Report ---
Date of Service December 12, 2021 Assessment & Plan (1) Respiratory failure with hypoxia and hypercapnia: Plan: Traci is a 71-year-old female with a past medical history of type 2 diabetes, chronic anemia requiring transfusion and iron infusions of unknown but suspected GI etiology but without history of GI bleeding or guaiac positive stool, hypertension, hyperlipidemia, bilateral shoulder weakness with left shoulder deformity, SBO, subdural hematoma and cardiomegaly without history of NM/stents/bypass/CAD by report who presented in septic shock with oxygen levels in the 50s and he was found to have a left upper lobe density consistent with pneumonia on CT. Acute hypoxic respiratory failure with sepsis 2/2 left upper lobe pneumonia Home O2 requirements of 3 L at night and as needed during the day with ambulation Leukocytosis to 14, febrile SPO2 in the 50s on arrival - pH: 7.15, PCO2 73, PO2 155, HCO3 26 Received Levaquin in ER, MRSA nares pending Levaquin additional doses deferred given QT prolongation -Admitted to ICU on cefepime/Vanco with critical illness Patient intubated in ER with etomidate, sedation with 50 mcg of fentanyl with an hour of effective sedation. Other agents avoided due to hypotension and labile pressure Creatinine 1.73 from baseline less than 1 Lactate 4.4 on arrival, 4.7 on recheck s/p NSS 3 L crystalloid resuscitation Intubated, ventilated as above Patient hypotensive, bolus epinephrine given in ER and transition to epinephrine drip with gradual improvement in pressures now 107/60 at time of admission Continue norepi drip Fentanyl 50 mcg every hour as needed for sedation ICU following Troponin elevation Troponin high-sensitivity 146.5, uptrending to 325.7 EKG: T wave inversion in inferior leads,? ST segment changes and right bundle branch block with QT prolongation Prior EKG : Right bundle branch block, NSR No preceding history of chest pain/CAD, suspect severe demand in the setting of hypoxia and pneumonia above TTE: LV SF normal, mild concentric LVH, grade 1 diastolic dysfunction, RV dilation, elevated RVSP EYAD, no history of CKD Creatinine baseline less than 1 Creatinine 1.73 on admission in the setting of sepsis Likely prerenal in the setting of sepsis, initially received 3 L of crystalloid and IV FM on abdomen, volume overload subsequently seen on echo and maintenance fluids discontinued History of chronic anemia Follows [facility], records possibly in [facility] system. ER case management unable to access [facility] system for records. Attempted to obtain record through [facility] provider, last note in 2019 and no notes from hematology visible? We will attempt to clarify through HIM No prior history of CKD,? Poor production. Is not pancytopenic. Transfused 1 unit packed blood cells for hemoglobin 7.0 with sepsis and troponin elevation, appropriate rise to 8.8 posttransfusion CBC daily History of COPD On albuterol as neededNo maintenance inhalers No PFTs available for review Type II DM ICU hyperglycemia protocol Hold home metformin, Januvia Last A1c 5.0%, well controlled Hyperlipidemia Atorvastatin 80 mg p.o. at bedtime History of depression Seroquel 50 mg p.o. nightly held Electrolytes Ice electrolyte protocol, magnesium 1.5, potassium 4.7 DVT prophylaxis: Heparin subcu Diet: N.p.o. Disposition: ICU CODE STATUS: DNR/DNI, discussed with daughter at bedside (2) Pneumonia: (3) Septic shock: (4) Hyponatremia: (5) SIRS (systemic inflammatory response syndrome): (6) Uncontrolled type 2 diabetes mellitus with hyperosmolarity, without long- term current use of insulin: (7) Left shoulder pain: (8) Hypertension: (9) Hyperlipidemia: (10) Chronic obstructive pulmonary disease: History of Present Illness Primary Care Provider: Kristal Pham Patient is seen at the bedside with her daughter present. Patient is intubated and ventilated, has received fentanyl for pain control/sedation and history cannot be obtained from patient. Cooperative patient's family patient has been pursuing outpatient work-up for anemia with persistent progressive fatigue. Possible GIOrigin of downtrending hemoglobin, however patient has never had melena/bright red blood per rectum and has had negative occult blood tests. [facility] patient had approximately 3 days of progressively worsening fatigue and shortness of breath, and was unable to move around the house with her normal levels of function. Did have an episode of becoming very sleepy, and could not get self to stand and slumped to the floor while attempting to use the bathroom without striking her head. EMS was called and patient was noted to have oxygen saturations in the 50s. Was hypotensive in the ER, recieved crystalloid hydration and push doses of epi --> norepi with subsequent improvement in pressures. CT shows left upper lobe pneumonia. CT head without hemorrhage or infarct. Patient was intubated and has had about 1 hour of sedation with fentanyl 50 mcg. Initial ABG with pH of 7.31 and hypercarbic. She does have history of COPD without PFTs available. history of using a rescue inhaler, no daily inhalers per patient's daughter. 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 Also has a history of L3 compression fracture and chronic back pain. Has a history of subdural hematoma after a fall in 2020. This remained stable on her prior hospitalization and did not have neurologic worsening or complications from this at the time Medical History: Reviewed Medications: Reviewed Surgical History: Reviewed Allergies: NKDA. Adhesive/latex as noted Social History: 0.5ppd tobacco use, no etoh use, no recreational drug use, no herbal/naturopathic medication use Code Status: DNR/DNI. Allergies Allergy/AdvReac Type Severity Reaction Status Date / Time latex Allergy Severe 2ND DEGREE Verified 08/25/21 07:43 BURN FROM BANDAGE adhesive Allergy Intermediate RASH Verified 08/25/21 07:43 Home Medications Medication Instructions Recorded Confirmed Type aspirin 81 mg tablet,delayed 81 mg PO QPM 10/30/18 08/25/21 History release (Malcom Low Dose Aspirin) atorvastatin 80 mg tablet (Lipitor) 80 mg PO HS 10/30/18 08/25/21 History gabapentin 300 mg capsule 300 mg PO TID 10/30/18 08/25/21 History quetiapine 50 mg tablet (Seroquel) 50 mg PO HS 12/01/19 08/25/21 History cyanocobalamin (vitamin B-12) 1,000 mcg IM MONTHLY 01/08/21 08/25/21 History 1,000 mcg/mL injection solution sitagliptin 100 mg tablet (Januvia) 100 mg PO QPM 01/08/21 08/25/21 History metformin 500 mg tablet 500 mg PO DAILY #30 tab 01/22/21 08/25/21 Rx lisinopril 20 mg tablet 20 mg PO DAILY 02/14/21 08/25/21 History insulin glargine 100 unit/mL (3 35 unit SC QAM 08/25/21 08/25/21 History mL) subcutaneous pen (Lantus Solostar U-100 Insulin) Past Med/Surg History Medical History Anxiety Chronic obstructive pulmonary disease Complicated UTI (urinary tract infection) Depression Diabetes mellitus, type 2 NIDDM Glaucoma WELL CONTROLLED H/O defect LEFT ARM Hyperlipidemia Hypertension Hyponatremia Palliative care encounter Peripheral neuropathy BILATERAL FEET Shortness of breath Temporomandibular joint disorder NO PROBLEMS RECENTLY. 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 Appears critically ill. HEENT: Atraumatic, normocephalic. Vision and hearing unable to be assessed. Pulm: Diminished, distant, coarse bilaterally with crackles at the bases. On ventilator. Cardiac: RRR, -MRG, heart sounds distant Abdomen: Obese, soft. Unable to assess for tenderness. BS diminished. Extremities: Warm, dry. Unable to assess for strength/sensation. Cap refill in thumb sluggish. Results & Data Results & Data ([facility]) Vital Signs (Past 12 Hours) Vital Signs Pulse Pulse Resp BP Pulse Ox 12/12/21 06:55 26 H 98/58 L 92 06/13/22 06:50 86 26 H 96 06/13/22 06:28 105/59 L 12/12/21 06:17 104/57 L 12/12/21 06:15 80 27 H 100 12/12/21 06:05 89/48 L 12/12/21 06:02 70/46 L 12/12/21 06:00 26 H 12/12/21 05:55 70 87/44 L 100 12/12/21 05:40 82 20 97 12/12/21 05:29 92 H 12 83 L PG Care Time/CCT Total # of Minutes Spent Total Time Spent with Patient: Total time spent is greater than 50% in coordination of care (as documented) at patient's floor/unit and/or counseling patient: Coding Level of Care Code 50552 Initial Inpt Care Lvl 3 Diagnoses Respiratory failure with hypoxia and hypercapnia J96.01; J96.02 Chronicity: acute Pneumonia J18.9 Laterality: left Lung location: upper lobe of lung Pneumonia type: due to unspecified organism Septic shock A41.9; R65.21 Hyponatremia E87.1 SIRS (systemic inflammatory response syndrome) R65.10 Uncontrolled type 2 diabetes mellitus with hyperosmolarity, without long-term current use of insulin E11.00 Left shoulder pain M25.512 Hypertension I10 Hypertension type: essential hypertension Hyperlipidemia E78.5 Hyperlipidemia type: unspecified Chronic obstructive pulmonary disease J44.9 COPD type: unspecified COPD (1) Hyperlipidemia Hyperlipidemia type: unspecified Qualified Code(s): E78.5 - Hyperlipidemia, unspecified (2) Respiratory failure with hypoxia and hypercapnia Chronicity: acute Qualified Code(s): J96.01 - Acute respiratory failure with hypoxia; J96.02 - Acute respiratory failure with hypercapnia (3) Chronic obstructive pulmonary disease COPD type: unspecified COPD Qualified Code(s): J44.9 - Chronic obstructive pulmonary disease, unspecified (4) Hypertension Hypertension type: essential hypertension Qualified Code(s): I10 - Essential (primary) hypertension (5) Pneumonia Laterality: left Lung location: upper lobe of lung Pneumonia type: due to unspecified organism Qualified Code(s): J18.9 - Pneumonia, unspecified organism
[2021-12-12] MEDS: NOREPINEPHRINE/D5W 4 MG/250 ML PLCT IV SCH ×6 (07:27→20:07)
[2021-12-12] MEDS ORDERED: SODIUM CHLORIDE 0.9% 1000ML 1,000 ML IV ONE ×3 (07:30→07:32)
[2021-12-12] MEDS ORDERED: fentaNYL citrate 100 MCG/2 ML VIAL IV STA ×6 (07:30→16:04)
--- NOTE | 2021-12-12 07:42 | Emergency Department Note ---
Impression & Plan Respiratory failure with hypoxia and hypercapnia, Pneumonia, Acute non-ST elevation myocardial infarction (NSTEMI), Septic shock, Anemia Admit to the ICU ED Provider Note NAME: ANABEL VACA AGE: 71 SEX: F ARRIVES VIA: Ambulance INFORMANT: EMS and the patient's daughter ED PROVIDER(S): Michelle Sage DO CHIEF COMPLAINT: Weakness PLAN: [facility] MEDICAL DECISION MAKING: This is a 71-year-old female patient brought to the emergency department by EMS after having an episode of severe weakness at home while attempting to get to the bathroom. Most of the history was obtained from EMS and from the patient's daughter who eventually arrived in the emergency department. It seems that the patient suffers from iron deficiency anemia and was scheduled to have an iron infusion today but have become increasingly weak over the past 24 hours. She is currently being treated with Macrobid for UTI. The patient had asked her family to help her to the bathroom when she became so weak that she could no longer walk and they helped her to the floor. EMS was called to the home and they found her in a similar responsive state with an O2 saturation of 58%. Administered supplemental oxygen. She had normal BSG and she was transported here. Upon arrival to the emergency department, the patient remained hypoxic despite being on high flow oxygen. She required emergent endotracheal intubation to secure her airway. ABG revealed significant respiratory acidosis with a pH of 7.15. This was consistent with hypoxic/hypercapnic respiratory failure. EKG revealed some ST segment elevation in the inferior leads with a elevated troponin. The patient was hypotensive and receiving 2 L of IV normal saline on pressure bags. She was receiving aliquots of push dose epi to support her blood pressure. She was started on a Levophed drip. The patient had an obvious large left upper lobe pneumonia on chest x-ray and was thought to be septic and presumably in septic shock with an elevated lactate. She was covered with Zosyn and Levophed. The patient's daughter arrived in the room and was kept abreast of the situation and of her mother's critical condition. I discussed the case with Dr. Dang from critical care medicine and [facility] Triage Nursing notes reviewed and agree with them. Additional history obtained from EMS and the patient's daughter Prior medical records reviewed Vital Signs: reviewed and remarkable for hypotension Differential diagnosis: Hypoxic respiratory failure; COPD exacerbation; hypercapnia; sepsis; acute GI bleeding; STEMI; NSTEMI; PE; pneumonia; urosepsis; COVID-19 ER treatment provided: IV normal saline bolus x3 L Endotracheal intubation IV etomidate IV Levophed drip Push dose epi x3 IV fentanyl x3 Orogastric tube IV Zosyn IV Levaquin Diagnostics interpreted by me: ECG: Normal sinus rhythm at a rate of 84 with a first-degree AV block there is a nonspecific intraventricular block with ST segment elevation noted in leads II, III and aVF concerning for ischemia and ST segment depression in the anterior leads concerning for ischemia Cardiac Monitoring: Normal sinus rhythm at 92 Laboratory studies: See below Imaging studies: Portable chest x-ray: Endotracheal tube at 3 cm above the michelle; significant cardiomegaly; large circular opacity in the left upper lung HPI: 71/F arrives for evaluation of hypoxia and weakness. The patient has had worsening weakness over the past 24 hours. Her family was helping her to the bathroom tonight when she became so weak that they had to lower her to the ground. EMS was called to the home and they found her with an O2 saturation of 58%. She was confused on their exam. She had normal BSG. Patient is currently being treated with Macrobid for a UTI. Patient has a history of anemia and is scheduled for an iron infusion today according to the family. ROS: See above HPI for pertinent positives & negatives. I cannot complete review of systems with the patient as she had an altered mental status PAST MEDICAL HISTORY:See Below PAST SURGICAL HISTORY:See Below FAMILY HISTORY:See Below SOCIAL HISTORY:See Below HOME MEDICATIONS: See list ALLERGIES: See list VITALS:See Below PHYSICAL EXAMINATION: HEENT: Head - normocephalic and atraumatic. Pupils are equal, round, and reactive to light. Extraocular eye muscles are intact, and sclera are anicteric . Nose - moist nasal mucosa without discharge. Mouth - moist buccal mucosa. Oropharynx is nonerythematous and there is no tonsillar exudate or edema noted. Neck: Very large, supple; no JVD, nuchal rigidity, cervical lymphadenopathy. Heart: Heart sounds are very distant secondary to body habitus. Regular rate and rhythm. There is a normal S1 and S2 with no murmurs, clicks, or gallops appreciated. Lungs: Very distant secondary to body habitus clear to auscultation bilaterally with no wheezes, rales, or rhonchi. Abdomen: Soft, completely nontender, nondistended, with good bowel sounds. The patient has a very large pannus with significant yeast noted in the folds. Extremities: No evidence of cyanosis, clubbing, or edema. There are easily palpable peripheral pulses. Skin: warm and dry with good turgor and no rashes. Neuro: The patient was semiresponsive. She would occasionally follow commands. She was moving all 4 extremities. ED COURSE: Times/Reassessments: The patient was evaluated initially in room C4 and then moved to A 1. A second IV lock was initiated and the patient had a twelve-lead EKG. An order was placed for continuous cardiac monitoring. The patient was in a normal sinus rhythm at a rate of 92. She was on 15 L of O2 by nonrebreather mask and had saturations only in the mid 70s. The decision was made to perform endotracheal intubation. Respiratory therapy was called to the bedside. Equipment was prepared. Endotracheal Intubation Indication respiratory failure. The patient was on 100% oxygen via NRB prior to the procedure. Suction, airway equipment, RSI drugs, respiratory equipment, and appropriate personnel were prepared prior to the initiation of the procedure. A time out was taken. Induction was performed with 30 mg of etomidate. After observing the clinical benefit of the medications, the airway was easily visualized utilizing a glide scope. A 7.5 size ETT tube was placed atraumatically to 25cm using standard technique. The cuff inflated without signs of malfunction. There were bilateral breath sounds, positive colormetric change, no gastric sounds, a good capnography waveform, and post procedure pulse oximetry was 98%. Post intubation sedation was administered using fentanyl. There were no complications. An OG tube was placed. A Deleon catheter was placed. The patient was noted to be significantly hypotensive. The patient continue to receive IV normal saline solution with pressure bags in place. Her systolic blood pressure was in the 60s. We prepared a push dose of epinephrine (1X100,000) The patient was given 2 cc of this. A Levophed drip was prepared. The patient blood pressure began to respond to this. An ABG was obtained. The patient's pH was only 7.15. She had an elevated CO2. This represents hypercapnic and hypoxic respiratory failure. We will continue to use small doses of IV fentanyl for sedation. A postintubation x-ray was obtained and the endotracheal tube required advancement. It was noted the patient had a large left-sided opacity in the left upper lung. A septic protocol was performed. The patient was treated with IV Zosyn and IV Levaquin for presumed pulmonary source. Patient remained hypotensive and continue to receive a total of 3 L of IV crystalloid solution. The Levophed drip was titrated up and she received an additional 2 cc doses of push dose epinephrine. The patient was noted to have significantly elevated troponin. A twelve-lead EKG was repeated. This revealed a normal sinus rhythm at a rate of 82 with a right bundle branch block. Intraventricular conduction delay is noted earlier seem to have resolved. The patient blood pressure was finally responding and the systolic blood pressure was greater than 100. Patient's daughter was kept abreast of the situation. I discussed the case with [facility] and they will care for the patient. I have personally spent greater than 120 minutes of critical care time in the direct management of this patient. This includes bedside care, interpretation of diagnostic studies, and testing, discussion with consultants, patient, and family members, and other required patient management activities. This 120 minutes is in excess of all separately billable procedures. Michelle Sage DO Past Med/Surg History Medical History Anxiety Chronic obstructive pulmonary disease Complicated UTI (urinary tract infection) Depression Diabetes mellitus, type 2 NIDDM Glaucoma WELL CONTROLLED H/O defect LEFT ARM Hyperlipidemia Hypertension Hyponatremia Palliative care encounter Peripheral neuropathy BILATERAL FEET Shortness of breath Temporomandibular joint disorder NO PROBLEMS RECENTLY. Surgical History History of appendectomy History of cholecystectomy History of colonoscopy History of incision and drainage UMBILICAL ABSCESS History of total shoulder replacement RIGHT Hx of umbilical hernia repair X4 -- WEARS SUPPORT BAND DAILY S/P JALIL-BSO S/P tonsillectomy and adenoidectomy Family History Mother Diabetes mellitus, type 2 Aunt Diabetes mellitus, type 2 Social History Smoking Status: Current every day smoker Tobacco Type: Cigarettes Cigarettes Per Day: 2 PPD X 50 YEARS AGO; Second Hand Exposure: Yes; Hx Alcohol Use: No Hx Substance Use: No Preferred Language: Albanian Communication Ability: Unable 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 Beliefs That Will Affect Care: None marital status: Current Living Situation: Spouse current occupational status: retired Feels Safe at Home: Yes Assistive Devices: Walker Allergies Allergies Allergy/AdvReac Type Severity Reaction Status Date / Time latex Allergy Severe 2ND DEGREE Verified 08/25/21 07:43 BURN FROM BANDAGE adhesive Allergy Intermediate RASH Verified 08/25/21 07:43 Home Meds Home Medications Medication Instructions Recorded Confirmed aspirin 81 mg tablet,delayed 81 mg PO QPM 10/30/18 08/25/21 release (Malcom Low Dose Aspirin) atorvastatin 80 mg tablet (Lipitor) 80 mg PO HS 10/30/18 08/25/21 gabapentin 300 mg capsule 300 mg PO TID 10/30/18 08/25/21 quetiapine 50 mg tablet (Seroquel) 50 mg PO HS 12/01/19 08/25/21 cyanocobalamin (vitamin B-12) 1,000 mcg IM MONTHLY 01/08/21 08/25/21 1,000 mcg/mL injection solution sitagliptin 100 mg tablet (Januvia) 100 mg PO QPM 01/08/21 08/25/21 lisinopril 20 mg tablet 20 mg PO DAILY 02/14/21 08/25/21 insulin glargine 100 unit/mL (3 35 unit SC QAM 08/25/21 08/25/21 mL) subcutaneous pen (Lantus Solostar U-100 Insulin) Previous Rx's Medication Instructions Recorded metformin 500 mg tablet 500 mg PO DAILY #30 tab 01/22/21 Results & Data (ED) Vital Signs Vital Signs - 24 hr 12/12/21 05:29 12/12/21 05:36 12/12/21 05:40 Pulse Rate 92 H 82 Pulse Rate [Finger] Pulse Rate from SpO2 Sensor Respiratory Rate 12 20 Respiratory Effort / Characteristics Respiratory Depth Shallow Blood Pressure Blood Pressure [Left Arm] 71/43 L Blood Pressure Mean Blood Pressure Mean [Left Arm] 52 Blood Pressure Position [Left Arm] Pulse Oximetry 83 L 83 L 97 Oxygen Delivery Method Non-rebreather Non-rebreather Oxygen Flow Rate 15 15 Fraction of Inspired Oxygen 100 Sepsis New/Unexplained Change in Mental Status Yes Sepsis Action Taken by Nursing No Action Required End-Tidal CO2 56 End Tidal CO2 (18-54mmHg) 12/12/21 05:44 12/12/21 05:50 12/12/21 05:55 Pulse Rate Pulse Rate [Finger] 70 Pulse Rate from SpO2 Sensor Respiratory Rate Respiratory Effort / Characteristics Respiratory Depth Blood Pressure Blood Pressure [Left Arm] 54/41 L 60/39 L 87/44 L Blood Pressure Mean Blood Pressure Mean [Left Arm] 45 46 58 Blood Pressure Position [Left Arm] Pulse Oximetry 100 Oxygen Delivery Method Oxygen Flow Rate Fraction of Inspired Oxygen Sepsis New/Unexplained Change in Mental Status Sepsis Action Taken by Nursing End-Tidal CO2 End Tidal CO2 (18-54mmHg) 55 12/12/21 06:00 12/12/21 06:02 12/12/21 06:05 Pulse Rate Pulse Rate [Finger] Pulse Rate from SpO2 Sensor Respiratory Rate 26 H Respiratory Effort / Characteristics Respiratory Depth Blood Pressure Blood Pressure [Left Arm] 70/46 L 89/48 L Blood Pressure Mean Blood Pressure Mean [Left Arm] 54 61 Blood Pressure Position [Left Arm] Pulse Oximetry Oxygen Delivery Method Oxygen Flow Rate Fraction of Inspired Oxygen 100 Sepsis New/Unexplained Change in Mental Status Sepsis Action Taken by Nursing End-Tidal CO2 End Tidal CO2 (18-54mmHg) 12/12/21 06:15 12/12/21 06:17 12/12/21 06:28 Pulse Rate 80 Pulse Rate [Finger] Pulse Rate from SpO2 Sensor Respiratory Rate 27 H Respiratory Effort / Characteristics Respiratory Depth Blood Pressure Blood Pressure [Left Arm] 104/57 L 105/59 L Blood Pressure Mean Blood Pressure Mean [Left Arm] 72 74 Blood Pressure Position [Left Arm] Pulse Oximetry 100 Oxygen Delivery Method Oxygen Flow Rate Fraction of Inspired Oxygen 40 Sepsis New/Unexplained Change in Mental Status Sepsis Action Taken by Nursing End-Tidal CO2 50 End Tidal CO2 (18-54mmHg) 12/12/21 06:45 12/12/21 06:46 12/12/21 06:50 Pulse Rate 81 81 89 Pulse Rate [Finger] Pulse Rate from SpO2 Sensor 83 81 88 Respiratory Rate 26 H 21 26 H Respiratory Effort / Characteristics Respiratory Depth Blood Pressure 89/64 L Blood Pressure [Left Arm] Blood Pressure Mean 72 Blood Pressure Mean [Left Arm] Blood Pressure Position [Left Arm] Pulse Oximetry 100 100 95 Oxygen Delivery Method Oxygen Flow Rate Fraction of Inspired Oxygen 40 Sepsis New/Unexplained Change in Mental Status Sepsis Action Taken by Nursing End-Tidal CO2 49 51 57 End Tidal CO2 (18-54mmHg) 12/12/21 06:51 12/12/21 06:55 12/12/21 07:00 Pulse Rate 90 87 89 Pulse Rate [Finger] Pulse Rate from SpO2 Sensor 88 82 83 Respiratory Rate 26 H 26 H 26 H Respiratory Effort / Characteristics Non-Labored Respiratory Depth Normal Blood Pressure 94/40 L 98/58 L 94/54 L Blood Pressure [Left Arm] 98/58 L Blood Pressure Mean 58 71 67 Blood Pressure Mean [Left Arm] 71 Blood Pressure Position [Left Arm] Sitting Pulse Oximetry 93 92 95 Oxygen Delivery Method Mechanical Vent Oxygen Flow Rate Fraction of Inspired Oxygen 40 Sepsis New/Unexplained Change in Mental Status Sepsis Action Taken by Nursing End-Tidal CO2 56 57 57 End Tidal CO2 (18-54mmHg) 57 12/12/21 07:05 12/12/21 07:10 12/12/21 07:20 Pulse Rate 90 85 75 Pulse Rate [Finger] Pulse Rate from SpO2 Sensor 84 86 77 Respiratory Rate 26 H 26 H 26 H Respiratory Effort / Characteristics Respiratory Depth Blood Pressure 96/57 L Blood Pressure [Left Arm] Blood Pressure Mean 70 Blood Pressure Mean [Left Arm] Blood Pressure Position [Left Arm] Pulse Oximetry 95 94 95 Oxygen Delivery Method Oxygen Flow Rate Fraction of Inspired Oxygen Sepsis New/Unexplained Change in Mental Status Sepsis Action Taken by Nursing End-Tidal CO2 55 56 55 End Tidal CO2 (18-54mmHg) 12/12/21 07:24 12/12/21 07:25 12/12/21 07:30 Pulse Rate 77 74 70 Pulse Rate [Finger] Pulse Rate from SpO2 Sensor 79 75 74 Respiratory Rate 26 H 26 H 26 H Respiratory Effort / Characteristics Respiratory Depth Blood Pressure 85/50 L 74/41 L 69/60 L Blood Pressure [Left Arm] Blood Pressure Mean 61 52 63 Blood Pressure Mean [Left Arm] Blood Pressure Position [Left Arm] Pulse Oximetry 94 94 93 Oxygen Delivery Method Oxygen Flow Rate Fraction of Inspired Oxygen Sepsis New/Unexplained Change in Mental Status Sepsis Action Taken by Nursing End-Tidal CO2 54 55 55 End Tidal CO2 (18-54mmHg) 12/12/21 07:36 12/12/21 07:38 12/12/21 07:40 Pulse Rate 78 80 90 Pulse Rate [Finger] Pulse Rate from SpO2 Sensor 84 84 85 Respiratory Rate 26 H 26 H 26 H Respiratory Effort / Characteristics Respiratory Depth Blood Pressure 97/41 L 107/60 112/54 L Blood Pressure [Left Arm] Blood Pressure Mean 59 75 73 Blood Pressure Mean [Left Arm] Blood Pressure Position [Left Arm] Pulse Oximetry 91 91 93 Oxygen Delivery Method Oxygen Flow Rate Fraction of Inspired Oxygen Sepsis New/Unexplained Change in Mental Status Sepsis Action Taken by Nursing End-Tidal CO2 53 54 53 End Tidal CO2 (18-54mmHg) 12/12/21 07:46 Pulse Rate 79 Pulse Rate [Finger] Pulse Rate from SpO2 Sensor 82 Respiratory Rate 26 H Respiratory Effort / Characteristics Respiratory Depth Blood Pressure 90/64 L Blood Pressure [Left Arm] Blood Pressure Mean 72 Blood Pressure Mean [Left Arm] Blood Pressure Position [Left Arm] Pulse Oximetry 94 Oxygen Delivery Method Oxygen Flow Rate Fraction of Inspired Oxygen Sepsis New/Unexplained Change in Mental Status Sepsis Action Taken by Nursing End-Tidal CO2 54 End Tidal CO2 (18-54mmHg) Laboratory Data Result diagrams: 12/12/21 05:40 12/12/21 05:40 Lab Results 12/12/21 12/12/21 12/12/21 Range/Units 05:40 05:40 05:40 WBC 14.88 H (4.8-10.8) K/uL RBC 2.44 L (4.2-5.4) M/uL Hgb 7.0 L (12.0-16.0) g/dL POC Hgb (12.0-16.0) g/dl Hct 25.0 L (37-47) % POC Hct (37-47) % MCV 102.5 H (80-100) fL MCH 28.7 (25-34) pg MCHC 28.0 L (32-36) g/dL RDW Std Deviation 64.6 H (36.4-46.3) fL RDW Coeff of Vikas 17.7 H (11.5-14.5) % Plt Count 390 (130-400) K/uL MPV 9.0 (7.4-10.4) fL Immature Gran % (Auto) 0.3 % Neut % (Auto) 87.8 % Lymph % (Auto) 3.0 % [place] % (Auto) 7.7 % Eos % (Auto) 1.1 % Baso % (Auto) 0.1 % Neut # (Auto) 13.07 H (1.4-6.5) K/uL Lymph # (Auto) 0.44 L (1.2-3.4) K/uL [place] # (Auto) 1.14 H (0.11-0.59) K/uL Eos # (Auto) 0.17 (0-0.5) K/uL Baso # (Auto) 0.01 (0-0.2) K/uL Immature Gran # (Auto) 0.05 H (0.00-0.02) K/uL Polychromasia 1+ Basophilic Stippling 1+ PT 12.0 (9.0-12.0) Seconds INR 1.1 (0.9-1.1) APTT 34.9 H (21.0-31.0) Seconds PTT Ratio 1.3 POC pH (7.35-7.45) POC pCO2 (35-46) mmHg POC pO2 (80-95) mmHg POC HCO3 (19-24) rhett/L POC Base Excess (-9-1.8) rhett/L POC ABG O2 Sat (90-95) % POC Sodium (135-144) mmol/L Sodium 130 L (136-145) mmol/L POC Potassium (3.3-5.0) mmol/L Potassium 4.8 (3.5-5.1) mmol/L POC Chloride (101-112) mmol/L Chloride 93 L (98-107) mmol/L Carbon Dioxide 24 (21-32) mmol/L POC Total CO2 (24-31) mmol/L Anion Gap 13 H (3-11) POC Anion Gap (16-25) mmol/L POC BUN (7-18) mg/dl BUN 44 H (6-23) mg/dl Creatinine 1.73 H (0.6-1.2) mg/dl POC Creatinine (0.6-1.3) mg/dl Est Cr Clr Drug Dosing Not Reportable Est GFR ( Amer) 34.1 ml/min Est GFR (Non-Af Amer) 29.4 ml/min BUN/Creatinine Ratio 25.4 H (10-20) Glucose 93 (70-99(Fasting)) mg/dl POC Glucose (other) (70-99) mg/dl Lactate (0.4-2.0) mmol/L Calcium 8.0 L (8.5-10.1) mg/dl POC Ioniz Calcium Aminata (1.12-1.32) mmol/l Magnesium 1.5 L (1.7-2.4) mg/dl Total Bilirubin 0.5 (0.2-1.0) mg/dl AST 27 (13-39) U/L ALT 11 (7-52) U/L Alkaline Phosphatase 73 (34-104) U/L Troponin I High Sens 146.5 H* (0-14) pg/ml Total Protein 6.6 (6.0-8.3) gm/dl Albumin 3.5 (3.4-5.0) gm/dl Globulin 3.1 (2.5-4.0) gm/dl Albumin/Globulin Ratio 1.1 (0.9-2) Urine Color Urine Appearance (Clear) Urine pH (4.5-7.5) Ur Specific [place] (1.000-1.030) Urine Protein (Negative) Urine Glucose (UA) (Negative) Urine Ketones (Negative) Urine Blood (Negative) Urine Nitrite (Negative) Urine Bilirubin (Negative) Urine Urobilinogen (Negative) Ur Leukocyte Esterase (Negative) Urine WBC (Auto) (0-5) /hpf Urine RBC (Auto) (0-4) /hpf U Hyaline Cast (Auto) (0-5) /lpf U Epithel Cells (Auto) (0-5) /lpf Urine Bacteria (Auto) (Negative) SARS-CoV-2, RNA, NAAT (NEGATIVE) Blood Type Antibody Screen Crossmatch 12/12/21 12/12/21 12/12/21 Range/Units 05:47 05:50 05:56 WBC (4.8-10.8) K/uL RBC (4.2-5.4) M/uL Hgb (12.0-16.0) g/dL POC Hgb 8.5 L 8.2 L (12.0-16.0) g/dl Hct (37-47) % POC Hct 25 L 24 L (37-47) % MCV (80-100) fL MCH (25-34) pg MCHC (32-36) g/dL RDW Std Deviation (36.4-46.3) fL RDW Coeff of Vikas (11.5-14.5) % Plt Count (130-400) K/uL MPV (7.4-10.4) fL Immature Gran % (Auto) % Neut % (Auto) % Lymph % (Auto) % [place] % (Auto) % Eos % (Auto) % Baso % (Auto) % Neut # (Auto) (1.4-6.5) K/uL Lymph # (Auto) (1.2-3.4) K/uL [place] # (Auto) (0.11-0.59) K/uL Eos # (Auto) (0-0.5) K/uL Baso # (Auto) (0-0.2) K/uL Immature Gran # (Auto) (0.00-0.02) K/uL Polychromasia Basophilic Stippling PT (9.0-12.0) Seconds INR (0.9-1.1) APTT (21.0-31.0) Seconds PTT Ratio POC pH 7.15 L* (7.35-7.45) POC pCO2 73 H (35-46) mmHg POC pO2 155 H (80-95) mmHg POC HCO3 26 H (19-24) rhett/L POC Base Excess -3.0 (-9-1.8) rhett/L POC ABG O2 Sat 99.0 H (90-95) % POC Sodium 129 L 130 L (135-144) mmol/L Sodium (136-145) mmol/L POC Potassium 4.8 4.5 (3.3-5.0) mmol/L Potassium (3.5-5.1) mmol/L POC Chloride 93 L (101-112) mmol/L Chloride (98-107) mmol/L Carbon Dioxide (21-32) mmol/L POC Total CO2 27 28 (24-31) mmol/L Anion Gap (3-11) POC Anion Gap 15.0 L (16-25) mmol/L POC BUN 42 H (7-18) mg/dl BUN (6-23) mg/dl Creatinine (0.6-1.2) mg/dl POC Creatinine 2.0 H (0.6-1.3) mg/dl Est Cr Clr Drug Dosing Est GFR ( Amer) ml/min Est GFR (Non-Af Amer) ml/min BUN/Creatinine Ratio (10-20) Glucose (70-99(Fasting)) mg/dl POC Glucose (other) 97 (70-99) mg/dl Lactate (0.4-2.0) mmol/L Calcium (8.5-10.1) mg/dl POC Ioniz Calcium Aminata 1.10 L (1.12-1.32) mmol/l Magnesium (1.7-2.4) mg/dl Total Bilirubin (0.2-1.0) mg/dl AST (13-39) U/L ALT (7-52) U/L Alkaline Phosphatase (34-104) U/L Troponin I High Sens (0-14) pg/ml Total Protein (6.0-8.3) gm/dl Albumin (3.4-5.0) gm/dl Globulin (2.5-4.0) gm/dl Albumin/Globulin Ratio (0.9-2) Urine Color Urine Appearance (Clear) Urine pH (4.5-7.5) Ur Specific [place] (1.000-1.030) Urine Protein (Negative) Urine Glucose (UA) (Negative) Urine Ketones (Negative) Urine Blood (Negative) Urine Nitrite (Negative) Urine Bilirubin (Negative) Urine Urobilinogen (Negative) Ur Leukocyte Esterase (Negative) Urine WBC (Auto) (0-5) /hpf Urine RBC (Auto) (0-4) /hpf U Hyaline Cast (Auto) (0-5) /lpf U Epithel Cells (Auto) (0-5) /lpf Urine Bacteria (Auto) (Negative) SARS-CoV-2, RNA, NAAT NEGATIVE (NEGATIVE) Blood Type Antibody Screen Crossmatch 12/12/21 12/12/21 12/12/21 Range/Units 06:04 06:10 07:18 WBC (4.8-10.8) K/uL RBC (4.2-5.4) M/uL Hgb (12.0-16.0) g/dL POC Hgb (12.0-16.0) g/dl Hct (37-47) % POC Hct (37-47) % MCV (80-100) fL MCH (25-34) pg MCHC (32-36) g/dL RDW Std Deviation (36.4-46.3) fL RDW Coeff of Vikas (11.5-14.5) % Plt Count (130-400) K/uL MPV (7.4-10.4) fL Immature Gran % (Auto) % Neut % (Auto) % Lymph % (Auto) % [place] % (Auto) % Eos % (Auto) % Baso % (Auto) % Neut # (Auto) (1.4-6.5) K/uL Lymph # (Auto) (1.2-3.4) K/uL [place] # (Auto) (0.11-0.59) K/uL Eos # (Auto) (0-0.5) K/uL Baso # (Auto) (0-0.2) K/uL Immature Gran # (Auto) (0.00-0.02) K/uL Polychromasia Basophilic Stippling PT (9.0-12.0) Seconds INR (0.9-1.1) APTT (21.0-31.0) Seconds PTT Ratio POC pH (7.35-7.45) POC pCO2 (35-46) mmHg POC pO2 (80-95) mmHg POC HCO3 (19-24) rhett/L POC Base Excess (-9-1.8) rhett/L POC ABG O2 Sat (90-95) % POC Sodium (135-144) mmol/L Sodium (136-145) mmol/L POC Potassium (3.3-5.0) mmol/L Potassium (3.5-5.1) mmol/L POC Chloride (101-112) mmol/L Chloride (98-107) mmol/L Carbon Dioxide (21-32) mmol/L POC Total CO2 (24-31) mmol/L Anion Gap (3-11) POC Anion Gap (16-25) mmol/L POC BUN (7-18) mg/dl BUN (6-23) mg/dl Creatinine (0.6-1.2) mg/dl POC Creatinine (0.6-1.3) mg/dl Est Cr Clr Drug Dosing Est GFR ( Amer) ml/min Est GFR (Non-Af Amer) ml/min BUN/Creatinine Ratio (10-20) Glucose (70-99(Fasting)) mg/dl POC Glucose (other) (70-99) mg/dl Lactate 4.4 H* (0.4-2.0) mmol/L Calcium (8.5-10.1) mg/dl POC Ioniz Calcium Aminata (1.12-1.32) mmol/l Magnesium (1.7-2.4) mg/dl Total Bilirubin (0.2-1.0) mg/dl AST (13-39) U/L ALT (7-52) U/L Alkaline Phosphatase (34-104) U/L Troponin I High Sens (0-14) pg/ml Total Protein (6.0-8.3) gm/dl Albumin (3.4-5.0) gm/dl Globulin (2.5-4.0) gm/dl Albumin/Globulin Ratio (0.9-2) Urine Color Dark Yellow Urine Appearance Cloudy A (Clear) Urine pH 5.0 (4.5-7.5) Ur Specific [place] 1.018 (1.000-1.030) Urine Protein 1+ H (Negative) Urine Glucose (UA) Negative (Negative) Urine Ketones Negative (Negative) Urine Blood Negative (Negative) Urine Nitrite Negative (Negative) Urine Bilirubin Negative (Negative) Urine Urobilinogen Negative (Negative) Ur Leukocyte Esterase 1+ H (Negative) Urine WBC (Auto) >30 H (0-5) /hpf Urine RBC (Auto) 5-10 H (0-4) /hpf U Hyaline Cast (Auto) 1-5 (0-5) /lpf U Epithel Cells (Auto) >30 H (0-5) /lpf Urine Bacteria (Auto) Negative (Negative) SARS-CoV-2, RNA, NAAT (NEGATIVE) Blood Type A Positive Antibody Screen NEGATIVE Crossmatch See Detail 12/12/21 Range/Units 07:22 WBC (4.8-10.8) K/uL RBC (4.2-5.4) M/uL Hgb (12.0-16.0) g/dL POC Hgb (12.0-16.0) g/dl Hct (37-47) % POC Hct (37-47) % MCV (80-100) fL MCH (25-34) pg MCHC (32-36) g/dL RDW Std Deviation (36.4-46.3) fL RDW Coeff of Vikas (11.5-14.5) % Plt Count (130-400) K/uL MPV (7.4-10.4) fL Immature Gran % (Auto) % Neut % (Auto) % Lymph % (Auto) % [place] % (Auto) % Eos % (Auto) % Baso % (Auto) % Neut # (Auto) (1.4-6.5) K/uL Lymph # (Auto) (1.2-3.4) K/uL [place] # (Auto) (0.11-0.59) K/uL Eos # (Auto) (0-0.5) K/uL Baso # (Auto) (0-0.2) K/uL Immature Gran # (Auto) (0.00-0.02) K/uL Polychromasia Basophilic Stippling PT (9.0-12.0) Seconds INR (0.9-1.1) APTT (21.0-31.0) Seconds PTT Ratio POC pH (7.35-7.45) POC pCO2 (35-46) mmHg POC pO2 (80-95) mmHg POC HCO3 (19-24) rhett/L POC Base Excess (-9-1.8) rhett/L POC ABG O2 Sat (90-95) % POC Sodium (135-144) mmol/L Sodium (136-145) mmol/L POC Potassium (3.3-5.0) mmol/L Potassium (3.5-5.1) mmol/L POC Chloride (101-112) mmol/L Chloride (98-107) mmol/L Carbon Dioxide (21-32) mmol/L POC Total CO2 (24-31) mmol/L Anion Gap (3-11) POC Anion Gap (16-25) mmol/L POC BUN (7-18) mg/dl BUN (6-23) mg/dl Creatinine (0.6-1.2) mg/dl POC Creatinine (0.6-1.3) mg/dl Est Cr Clr Drug Dosing Est GFR ( Amer) ml/min Est GFR (Non-Af Amer) ml/min BUN/Creatinine Ratio (10-20) Glucose (70-99(Fasting)) mg/dl POC Glucose (other) (70-99) mg/dl Lactate 4.7 H* (0.4-2.0) mmol/L Calcium (8.5-10.1) mg/dl POC Ioniz Calcium Aminata (1.12-1.32) mmol/l Magnesium (1.7-2.4) mg/dl Total Bilirubin (0.2-1.0) mg/dl AST (13-39) U/L ALT (7-52) U/L Alkaline Phosphatase (34-104) U/L Troponin I High Sens (0-14) pg/ml Total Protein (6.0-8.3) gm/dl Albumin (3.4-5.0) gm/dl Globulin (2.5-4.0) gm/dl Albumin/Globulin Ratio (0.9-2) Urine Color Urine Appearance (Clear) Urine pH (4.5-7.5) Ur Specific [place] (1.000-1.030) Urine Protein (Negative) Urine Glucose (UA) (Negative) Urine Ketones (Negative) Urine Blood (Negative) Urine Nitrite (Negative) Urine Bilirubin (Negative) Urine Urobilinogen (Negative) Ur Leukocyte Esterase (Negative) Urine WBC (Auto) (0-5) /hpf Urine RBC (Auto) (0-4) /hpf U Hyaline Cast (Auto) (0-5) /lpf U Epithel Cells (Auto) (0-5) /lpf Urine Bacteria (Auto) (Negative) SARS-CoV-2, RNA, NAAT (NEGATIVE) Blood Type Antibody Screen Crossmatch Administered Medications Fentanyl Citrate (Fentanyl Citrate 100 Mcg/2 Ml Vial) 50 mcg IV Q1H PRN PRN Reason: Pain, Sediation w/ Intubation Stop: 12/26/21 09:28 Last Admin: 12/12/21 12:32 Dose: 50 mcg Documented by: [id number] Admin: 12/12/21 12:30 Dose: 50 mcg Documented by: [id number] Heparin Sodium (Porcine) (Heparin Sod 5,000 Unit/0.5 Ml Vial) 7,500 units SQ Q8 [facility] Stop: 01/11/22 13:59 Last Admin: 12/12/21 16:21 Dose: 7,500 units Documented by: [id number] Norepinephrine Bitartrate (Levophed/D5w) 4 mg in 250 mls @ 22.481 mls/hr IV .Q11H8M [facility]; Protocol Stop: 01/11/22 07:14 Last Admin: 12/12/21 16:21 Dose: 0.18 mcg/kg/min, 80.9 mls/hr Documented by: [id number] Cosigned by: [id number] Titration: 12/12/21 16:21 Dose: 0.18 mcg/kg/min, 80.9 mls/hr Documented by: [id number] Cosigned by: [id number] Titration: 12/12/21 14:20 Dose: 0.18 mcg/kg/min, 80.9 mls/hr Documented by: [id number] Titration: 12/12/21 14:15 Dose: 0.2 mcg/kg/min, 89.9 mls/hr Documented by: [id number] Titration: 12/12/21 14:10 Dose: 0.22 mcg/kg/min, 98.9 mls/hr Documented by: [id number] Titration: 12/12/21 14:05 Dose: 0.24 mcg/kg/min, 107.9 mls/hr Documented by: [id number] Titration: 12/12/21 14:00 Dose: 0.26 mcg/kg/min, 116.9 mls/hr Documented by: [id number] Titration: 12/12/21 13:55 Dose: 0.28 mcg/kg/min, 125.9 mls/hr Documented by: [id number] Titration: 12/12/21 13:50 Dose: 0.3 mcg/kg/min, 134.9 mls/hr Documented by: [id number] Titration: 12/12/21 13:45 Dose: 0.32 mcg/kg/min, 143.9 mls/hr Documented by: [id number] Admin: 12/12/21 13:40 Dose: 0.34 mcg/kg/min, 152.9 mls/hr Documented by: [id number] Cosigned by: [id number] Titration: 12/12/21 13:40 Dose: 0 mcg/kg/min, 0 mls/hr Documented by: [id number] Admin: 12/12/21 12:01 Dose: 0.34 mcg/kg/min, 152.9 mls/hr Documented by: [id number] Cosigned by: [id number] Titration: 12/12/21 12:01 Dose: 0 mcg/kg/min, 0 mls/hr Documented by: [id number] Admin: 12/12/21 10:22 Dose: 0.34 mcg/kg/min, 152.9 mls/hr Documented by: [id number] Cosigned by: [id number] Titration: 12/12/21 10:22 Dose: 0.34 mcg/kg/min, 152.9 mls/hr Documented by: [id number] Titration: 12/12/21 07:38 Dose: 0.34 mcg/kg/min, 152.9 mls/hr Documented by: [id number] Admin: 12/12/21 07:27 Dose: 0.32 mcg/kg/min, 143.9 mls/hr Documented by: [id number] Cosigned by: [id number] Cefepime HCl 2,000 mg/ Syringe 20 mls @ 5 mls/min IV Q12H [facility]; Protocol Stop: 12/19/21 10:29 Last Admin: 12/12/21 12:26 Dose: 5 mls/min Documented by: [id number] Discontinued Medications Fentanyl Citrate (Fentanyl Citrate 100 Mcg/2 Ml Vial) 50 mcg IV NOW STA Stop: 12/12/21 07:31 Last Admin: 12/12/21 05:52 Dose: 50 mcg Documented by: [id number] Fentanyl Citrate (Fentanyl Citrate 100 Mcg/2 Ml Vial) 50 mcg IV NOW STA Stop: 12/12/21 07:32 Last Admin: 12/12/21 06:10 Dose: 50 mcg Documented by: [id number] Fentanyl Citrate (Fentanyl Citrate 100 Mcg/2 Ml Vial) 50 mcg IV NOW STA Stop: 12/12/21 07:33 Last Admin: 12/12/21 06:40 Dose: 50 mcg Documented by: [id number] Fentanyl Citrate (Fentanyl Citrate 100 Mcg/2 Ml Vial) 100 mcg IV NOW STA Stop: 12/12/21 12:30 Last Admin: 12/12/21 11:15 Dose: 100 mcg Documented by: [id number] Fentanyl Citrate (Fentanyl Citrate 100 Mcg/2 Ml Vial) 100 mcg IV NOW STA Stop: 12/12/21 12:31 Last Admin: 12/12/21 12:00 Dose: 100 mcg Documented by: [id number] Fentanyl Citrate (Fentanyl Citrate 100 Mcg/2 Ml Vial) 100 mcg IV NOW STA Stop: 12/12/21 16:05 Last Admin: 12/12/21 16:15 Dose: Not Given Documented by: [id number] Piperacillin Sod/Tazobactam Sod (Zosyn) 4.5 gm in 120 mls @ 240 mls/hr IV NOW ONE Stop: 12/12/21 07:08 Last Infusion: 12/12/21 07:46 Dose: 0 mls/hr Documented by: [id number] Admin: 12/12/21 06:53 Dose: 240 mls/hr Documented by: [id number] Levofloxacin/Dextrose (Levaquin/D5w) 750 mg in 150 mls @ 100 mls/hr IV NOW STA Stop: 12/12/21 08:08 Last Infusion: 12/12/21 09:05 Dose: 0 mls/hr Documented by: [id number] Admin: 12/12/21 07:32 Dose: 100 mls/hr Documented by: [id number] Sodium Chloride (Nss 1000ml) 1,000 mls @ 999 mls/hr IV .Q1H1M ONE Stop: 12/12/21 08:30 Last Infusion: 12/12/21 06:04 Dose: 0 mls/hr Documented by: [id number] Admin: 12/12/21 05:40 Dose: 999 mls/hr Documented by: [id number] Sodium Chloride (Nss 1000ml) 1,000 mls @ 999 mls/hr IV .Q1H1M ONE Stop: 12/12/21 08:31 Last Infusion: 12/12/21 06:30 Dose: 0 mls/hr Documented by: [id number] Admin: 12/12/21 05:44 Dose: 999 mls/hr Documented by: [id number] Sodium Chloride (Nss 1000ml) 1,000 mls @ 999 mls/hr IV .Q1H1M ONE Stop: 12/12/21 08:32 Last Infusion: 12/12/21 08:00 Dose: 0 mls/hr Documented by: [id number] Admin: 12/12/21 06:55 Dose: 999 mls/hr Documented by: [id number] Vancomycin HCl 2,250 mg/ (Sodium Chloride) 545 mls @ 200 mls/hr IV NOW ONE Stop: 12/12/21 12:43 Last Infusion: 12/12/21 16:45 Dose: 0 mls/hr Documented by: [id number] Admin: 12/12/21 14:00 Dose: 200 mls/hr Documented by: [id number] Parenteral Electrolytes (Plasma-Lyte A) 1,000 mls @ 100 mls/hr IV .Q10H [facility] Stop: 01/11/22 09:28 Last Infusion: 12/12/21 16:57 Dose: 0 mls/hr Documented by: [id number] Infusion: 12/12/21 16:00 Dose: 0 mls/hr Documented by: [id number] Admin: 12/12/21 14:13 Dose: 100 mls/hr Documented by: [id number] Magnesium Sulfate/Dextrose (Magnesium Sulfate / D5w) 1 gm in 100 mls @ 50 mls/hr IV Q2H [facility] Stop: 12/12/21 17:14 Last Admin: 12/12/21 18:21 Dose: 50 mls/hr Documented by: [id number] Infusion: 12/12/21 18:21 Dose: 50 mls/hr Documented by: [id number] Admin: 12/12/21 16:23 Dose: 50 mls/hr Documented by: [id number] Midazolam HCl (Midazolam Hcl 1 Mg/Ml 2ml Vial) Confirm Administered Dose 2 mg .ROUTE .STK-MED ONE Stop: 12/12/21 12:58 Last Admin: 12/12/21 14:09 Dose: Not Given Documented by: [id number] Miscellaneous (Rapid Sequence Induction Bag) Confirm Administered Dose 1 ea .ROUTE .STK-MED ONE Stop: 12/12/21 05:30 Last Admin: 12/12/21 07:46 Dose: 1 ea Documented by: [id number] Norepinephrine Bitartrate (Norepinephrine/D5w 4 Mg/250 Ml) Confirm Administered Dose 4 mg IV .STK-MED ONE Stop: 12/12/21 05:47 Last Admin: 12/12/21 07:42 Dose: Not Given Documented by: [id number] Sodium Bicarbonate (Sodium Bicarb 8.4% Inj 50 Meq/50 Ml Syr) 50 meq IV NOW STA Stop: 12/12/21 07:58 Last Admin: 12/12/21 08:03 Dose: 50 meq Documented by: [id number] Sodium Bicarbonate (Sodium Bicarb 8.4% Inj 50 Meq/50 Ml Syr) Confirm Ad ministered Dose 50 meq IV .STK-MED ONE Stop: 12/12/21 08:02 Last Admin: 12/12/21 08:03 Dose: Not Given Documented by: [id number] Imaging Data Radiologist's Impression: Chest X-Ray 12/12/21 05:49 XR chest 1V portable supine CLINICAL HISTORY: cardiac pt COMPARISON STUDY: Chest CT August 01, 2021. FINDINGS: Tip of endotracheal tube is 5.2 cm above the michelle. Right shoulder arthroplasty is incidentally noted. Prominence of the aortic arch is likely due to supine technique. Extensive left lung airspace opacities noted. Right midlung airspace opacity is present. There is no pneumothorax. No definite pleural effusion. Cardiomegaly is noted. Chronic deformity of the left shoulder is present. IMPRESSION: 1. Tip of endotracheal tube 5.2 cm above the michelle. 2. Extensive left lung airspace opacity which could reflect pneumonia or atel ectasis. Right midlung opacity which favors atelectasis. 3. Cardiomegaly. Pulmonary vascular congestion. 4. Prominence of the aortic arch which is likely due to supine technique. ACT 112: Negative or not required by law. Electronically signed by: Alan Sanches M.D. 12/12/2021 6:[address] 12/12/21 06:11 CT OF THE CHEST WITHOUT IV CONTRAST CLINICAL HISTORY: Intubated. Evaluate left lung. COMPARISON STUDY: Chest CT August 01, 2021. Chest radiograph December 12, 2021. CT DOSE: 2446.06 mGy.cm TECHNIQUE: Axial images of the chest were obtained without IV contrast. Images were reviewed in the axial, sagittal, and coronal planes. IV contrast was not administered for this examination. Automated exposure control was utilized for the study. A dose lowering technique was utilized adhering to the principles of ALARA. FINDINGS: Tip of endotracheal tube is 3.2 cm above the michelle. Tip of nasogastric tube is within the body of the stomach. Right shoulder arthroplasty is noted. Chronic deformity of the left shoulder is incidentally noted. Moderate cardiomegaly is noted. There is no pericardial effusion. Mildly enlarged mediastinal lymph nodes have slightly increased in size since CT of August 01, 2021. Index precarinal lymph node on image [id number] measures 2.1 x 1.7 cm. There is no pneumothorax. There are trace bilateral pleural effusions. Extensive left lung airspace opacity is noted with volume loss. Subpleural right lung airspace opacities, greatest within the right middle lobe, favor atelectasis. Mild interlobular septal thickening is noted. Mild secretions within the trachea and mainstem bronchi are present. No acute fracture or suspicious lesion within the visualized bony thorax. IMPRESSION: 1. Extensive left lung airspace opacities with volume loss. This could reflect pneumonia, aspiration pneumonitis or atelectasis. Right lung airspace opacities which favor atelectasis. 2. Cardiomegaly. Suspected mild interstitial pulmonary edema. Trace bilateral effusions. 3. Mildly enlarged mediastinal lymph nodes. These may be reactive. Follow up chest CT in 6 months is recommended. ACT 112: Negative or not required by law. Electronically signed by: Alan Sanches M.D. 12/12/2021 6:[address] 12/12/21 06:11 CT head/brain wo con CLINICAL HISTORY: altered ms Technique: Contiguous axial CT images of the head were acquired from the base of the skull to the vertex without intravenous contrast administration. Images were viewed in brain, subdural and bone windows. Automated dose lowering techniques and/or adjustment according to patient size were utilized for this exam. Comparison: Comparison is made to CT head 02/07/2021 Findings: Areas of decreased attenuation are present in the periventricular and subcortical white matter bilaterally consistent with small vessel ischemic disease. Generalized cerebral atrophy with commensurate enlargement of the ventricles, sulci, and cisterns is also present. There is no acute intracranial hemorrhage or evidence of acute territorial infarction. No shift of the midline structures, mass effect, or extra-axial abnormalities are shown. Atherosclerotic calcifications are present in the intracranial segments of the internal carotid arteries. Left maxillary sinus opacification is seen. There is mucous thickening multiple multiple ethmoid air cells and frontal sinuses. The orbits appear normal. There are no acute fractures of the calvaria or scalp swelling. Impression: No acute intracranial hemorrhage, no evidence of acute territorial infarction or other acute intracranial disease process. Sinus disease. ACT 112: Negative or not required by law. Electronically signed by: Jerry White M.D. 12/12/2021 7:04 AM Discharge Plan Visit Data Chief Complaint: Altered Mental Status Stated Complaint: ALTERED MENTAL STATUS/FALL ED Provider: Michelle Sage Discharge Problem: Respiratory failure with hypoxia and hypercapnia, Pneumonia, Acute non-ST elevation myocardial infarction (NSTEMI), Septic shock, Anemia Patient Disposition: Admitted As Inpatient Discharge Instructions Interventions: ED Discharge Assessment Last Done: 12/12/21 08:21 Discharge Problem: Respiratory failure with hypoxia and hypercapnia Qualifiers: Chronicity: acute Qualified Code(s): J96.01 - Acute respiratory failure with hypoxia Pneumonia Qualifiers: Pneumonia type: due to unspecified organism Laterality: left Lung location: upper lobe of lung Qualified Code(s): J18.9 - Pneumonia, unspecified organism
[2021-12-12] MEDS ORDERED: SODIUM BICARB 8.4% INJ 50 MEQ/50 ML SYR IV STA (07:57)
[2021-12-12] MEDS ORDERED: SODIUM BICARB 8.4% INJ 50 MEQ/50 ML SYR IV ONE (08:01)
[2021-12-12] MEDS ORDERED: NORMOSOL-R 1,000 ML IV SCH (09:29)
[2021-12-12] MEDS ORDERED: ICU PROTOCOL FOR HYPERGLYCEMIA PRN (09:29)
[2021-12-12] MEDS ORDERED: VANCOMYCIN CONSULT ACTIVE PRN (09:29)
--- NOTE | 2021-12-12 09:35 | Critical Care Consultation ---
Date of Consultation December 12, 2021 Assessment & Plan (1) Respiratory failure with hypoxia and hypercapnia: Reason Critically Ill: 71-year-old female with history of symptomatic anemia who presents with hypotension and sepsis-like syndrome with presumptive left upper lobe pneumonia PLAN: Neuro: Acute encephalopathy -Suspect multifactorial and heavily metabolic in origin Resp: Acute on chronic respiratory failure with hypoxia and hypercapnia -Chronic O2 use at home CV: Hypotension, suspect secondary to sepsis Elevated troponin -echocardiogram reviewed, evidence consistent with cor pulmonale/pulmonary hypertension -Suspect type II ischemia Prolonged QTC: Suspect artifact secondary to a right bundle branch block Fluids/Renal: Acute kidney injury Baseline approximately 0.5 -Discontinuing supplemental fluids given echo evidence of elevated right-sided pressures Hypomagnesemia -4 g magnesium and additional p.o. supplementation ID: Left upper lobe pneumonia -Cefepime, vancomycin -Nasal MRSA pending -Received Levaquin in ED transition from Levaquin secondary to prolonged QTC GI/Nutrition: NPO Guaiac stool x1 when produced Heme: Anemia: Followed by oncology -Transfuse 1 unit packed red blood cells DVT prophylaxis: Heparin subcu 7,500 units every 8 hours Endocrine: ICU hyperglycemia protocol Vascular access: Left internal jugular CVC placed 12/12, right radial arterial line placed 12/12/2021 Code Status: DNR in event of cardiac arrest Disposition: ICU (2) Pneumonia: (3) Septic shock: (4) Cor pulmonale: Supervising Physician Co-Signing Physician Notes I have personally spent 65 minutes of critical care time in the direct management of this patient. This is a life/limb threatening event. This includes time spent evaluating patient, direct bedside care, chart review, placing orders, interpretation of diagnostic studies, discussion with consultants, patient, and/or family members regarding treatment decisions, as well as other required patient management activities. This time is exclusive of all separately billable procedures, and teaching time and separate from and in addition to any other critical care service time. History of Present Illness Reason for Consultation: Acute hypoxic respiratory failure Requesting Physician: Pippa Sage MD Attending Physician: Kaiden Grimes MD History of Present Illness History is obtained from the patient's daughter and emergency medicine physician. Patient is a 71-year-old female who had been following with oncology regarding symptomatic anemia's. Generally speaking if the patient's hemoglobin was below 8 she was receiving a iron infusion and if it was below 7 she would receive a blood transfusion. Over the last 3 to 4 days the patient had been increasing fatigue and was no longer ambulatory or able to complete her ADLs. Patient became somnolent and was unable to participate in her care EMS was called, she was noted to be hypoxic and she did not improve with aggressive respiratory interventions. In the emergency department she was intubated for airway protection. She had received IV fluids and antibiotics for a pneumonia. We discussed goals of care as well as CODE STATUS as the patient was previously DNR/DNI in event of cardiac arrest and the patient's daughter reaffirms those were her mother's decisions. She advised she did not want her to be comfort measures only and to be treated and we agreed that there was a distinction between DO NOT RESUSCITATE and comfort measures only. Is also noted the patient has a left upper extremity congenital defect and then for the past several years she has had a functional defect after orthopedic surgeries of the right upper extremity. She is reportedly able to move the right upper extremity at the elbow but no function at the shoulder. With regards to the functional anemia it was conveyed to the patient's daughter that there is believe that she was bleeding somewhere however the daughter reports that there have been no bright red blood per rectum, black tarry stools, nor reported chemical test positive for bleeding. She is unsure of the exact nature of work-up that the patient has received for her anemia. Allergies Allergy/AdvReac Type Severity Reaction Status Date / Time latex Allergy Severe 2ND DEGREE Verified 08/25/21 07:43 BURN FROM BANDAGE adhesive Allergy Intermediate RASH Verified 08/25/21 07:43 Home Medications Medication Instructions Recorded Confirmed Type aspirin 81 mg tablet,delayed 81 mg PO QPM 10/30/18 08/25/21 History release (Malcom Low Dose Aspirin) atorvastatin 80 mg tablet (Lipitor) 80 mg PO HS 10/30/18 08/25/21 History gabapentin 300 mg capsule 300 mg PO TID 10/30/18 08/25/21 History quetiapine 50 mg tablet (Seroquel) 50 mg PO HS 12/01/19 08/25/21 History cyanocobalamin (vitamin B-12) 1,000 mcg IM MONTHLY 01/08/21 08/25/21 History 1,000 mcg/mL injection solution sitagliptin 100 mg tablet (Januvia) 100 mg PO QPM 01/08/21 08/25/21 History metformin 500 mg tablet 500 mg PO DAILY #30 tab 01/22/21 08/25/21 Rx lisinopril 20 mg tablet 20 mg PO DAILY 02/14/21 08/25/21 History insulin glargine 100 unit/mL (3 35 unit SC QAM 08/25/21 08/25/21 History mL) subcutaneous pen (Lantus Solostar U-100 Insulin) Patient History Medical History Anxiety Chronic obstructive pulmonary disease Complicated UTI (urinary tract infection) Depression Diabetes mellitus, type 2 NIDDM Glaucoma WELL CONTROLLED H/O defect LEFT ARM Hyperlipidemia Hypertension Hyponatremia Palliative care encounter Peripheral neuropathy BILATERAL FEET Shortness of breath Temporomandibular joint disorder NO PROBLEMS RECENTLY. Surgical History History of appendectomy History of cholecystectomy History of colonoscopy History of incision and drainage UMBILICAL ABSCESS History of total shoulder replacement RIGHT Hx of umbilical hernia repair X4 -- WEARS SUPPORT BAND DAILY S/P JALIL-BSO S/P tonsillectomy and adenoidectomy Family History Mother Diabetes mellitus, type 2 Aunt Diabetes mellitus, type 2 Social History Smoking Status: Current every day smoker Tobacco Type: Cigarettes Cigarettes Per Day: 2 PPD X 50 YEARS AGO; Second Hand Exposure: Yes; Hx Alcohol Use: No Hx Substance Use: No Preferred Language: Georgian Communication Ability: Unable Cheese Cutter Required: No Beliefs That Will Affect Care: None marital status: Current Living Situation: Spouse current occupational status: retired Feels Safe at Home: Yes Assistive Devices: Walker Review of Systems Review of Systems: Unobtainable due to endotracheal tube Physical Exam Physical Exam: General: Sedated. nontoxic. Skin: Warm, dry, Head: Atraumatic Ears, nose, mouth and throat: airway obscured by endotracheal tube Cardiovascular: Decreased peripheral perfusion, increased time to capillary refill Respiratory: Ventilator settings reviewed Gastrointestinal: Non distended Musculoskeletal: Congenitally short left upper extremity. 1+ pitting edema bilateral lower extremities Results & Data Results & Data ([place]) Vital Signs (Past 12 Hours) Vital Signs Pulse Pulse Resp BP BP Pulse Ox 12/12/21 08:21 81 24 118/97 98 12/12/21 08:20 91 H 27 H 12/12/21 08:16 94 H 31 H 118/97 99 12/12/21 08:10 92 H 30 H 116/66 100 12/12/21 08:05 82 30 H 111/69 96 12/12/21 08:00 76 30 H 119/56 L 99 12/12/21 07:55 79 26 H 112/55 L 93 12/12/21 07:51 79 26 H 120/57 L 94 12/12/21 07:50 77 26 H 94 12/12/21 07:46 79 26 H 90/64 L 94 12/12/21 07:40 90 26 H 112/54 L 93 12/12/21 07:38 80 26 H 107/60 91 12/12/21 07:36 78 26 H 97/41 L 91 12/12/21 07:30 70 26 H 69/60 L 93 12/12/21 07:25 74 26 H 74/41 L 94 12/12/21 07:24 77 26 H 85/50 L 94 12/12/21 07:20 75 26 H 95 12/12/21 07:10 85 26 H 94 12/12/21 07:05 90 26 H 96/57 L 95 12/12/21 07:00 89 26 H 94/54 L 95 12/12/21 06:55 87 26 H 98/58 L 98/58 L 92 12/12/21 06:51 90 26 H 94/40 L 93 12/12/21 06:50 89 26 H 95 12/12/21 06:46 81 21 89/64 L 100 12/12/21 06:45 81 26 H 100 12/12/21 06:28 105/59 L 12/12/21 06:17 104/57 L 12/12/21 06:15 80 27 H 100 12/12/21 06:05 89/48 L 12/12/21 06:02 70/46 L 12/12/21 06:00 26 H 12/12/21 05:55 70 87/44 L 100 12/12/21 05:50 60/39 L 12/12/21 05:44 54/41 L 12/12/21 05:40 82 20 71/43 L 97 12/12/21 05:36 83 L 12/12/21 05:29 92 H 12 83 L Critical Care Results & Data Vital Signs (Past 12 Hours) Vital Signs Pulse Pulse Resp BP BP Pulse Ox 12/12/21 08:21 81 24 118/97 98 12/12/21 08:20 91 H 27 H 12/12/21 08:16 94 H 31 H 118/97 99 12/12/21 08:10 92 H 30 H 116/66 100 12/12/21 08:05 82 30 H 111/69 96 12/12/21 08:00 76 30 H 119/56 L 99 12/12/21 07:55 79 26 H 112/55 L 93 12/12/21 07:51 79 26 H 120/57 L 94 12/12/21 07:50 77 26 H 94 12/12/21 07:46 79 26 H 90/64 L 94 12/12/21 07:40 90 26 H 112/54 L 93 12/12/21 07:38 80 26 H 107/60 91 12/12/21 07:36 78 26 H 97/41 L 91 12/12/21 07:30 70 26 H 69/60 L 93 12/12/21 07:25 74 26 H 74/41 L 94 12/12/21 07:24 77 26 H 85/50 L 94 12/12/21 07:20 75 26 H 95 12/12/21 07:10 85 26 H 94 12/12/21 07:05 90 26 H 96/57 L 95 12/12/21 07:00 89 26 H 94/54 L 95 12/12/21 06:55 87 26 H 98/58 L 98/58 L 92 12/12/21 06:51 90 26 H 94/40 L 93 12/12/21 06:50 89 26 H 95 12/12/21 06:46 81 21 89/64 L 100 12/12/21 06:45 81 26 H 100 12/12/21 06:28 105/59 L 12/12/21 06:17 104/57 L 12/12/21 06:15 80 27 H 100 12/12/21 06:05 89/48 L 12/12/21 06:02 70/46 L 12/12/21 06:00 26 H 12/12/21 05:55 70 87/44 L 100 12/12/21 05:50 60/39 L 12/12/21 05:44 54/41 L 12/12/21 05:40 82 20 71/43 L 97 12/12/21 05:36 83 L 12/12/21 05:29 92 H 12 83 L Lab & Micro Results (Past 24 Hours) RBC 2.44 M/uL (4.2-5.4) L 12/12/21 WBC 14.88 K/uL (4.8-10.8) H 12/12/21 Hgb 7.0 g/dL (12.0-16.0) L 12/12/21 Hct 25.0 % (37-47) L 12/12/21 MCV 102.5 fL (80-100) H 12/12/21 MCH 28.7 pg (25-34) 12/12/21 MCHC 28.0 g/dL (32-36) L 12/12/21 RDW Standard Deviation 64.6 fL (36.4-46.3) H 12/12/21 RDW Coefficient of Variation 17.7 % (11.5-14.5) H 12/12/21 Plt Count 390 K/uL (130-400) 12/12/21 MPV 9.0 fL (7.4-10.4) 12/12/21 Neutrophils (%) (Auto) 87.8 % 12/12/21 Lymphocytes (%) (Auto) 3.0 % 12/12/21 Monocytes # (Auto) 1.14 K/uL (0.11-0.59) H 12/12/21 Eosinophils # (Auto) 0.17 K/uL (0-0.5) 12/12/21 Immature Granulocyte % (Auto) 0.3 % 12/12/21 Neutrophils # (Auto) 13.07 K/uL (1.4-6.5) H 12/12/21 Lymphocytes # (Auto) 0.44 K/uL (1.2-3.4) L 12/12/21 Monocytes # (Auto) 1.14 K/uL (0.11-0.59) H 12/12/21 Eosinophils # (Auto) 0.17 K/uL (0-0.5) 12/12/21 Basophils # (Auto) 0.01 K/uL (0-0.2) 12/12/21 Immature Granulocyte # (Auto) 0.05 K/uL (0.00-0.02) H 12/12/21 Polychromasia 1+ 12/12/21 Basophilic Stippling 1+ 12/12/21 Na 130 mmol/L (136-145) L 12/12/21 K 4.8 mmol/L (3.5-5.1) 12/12/21 Cl 93 mmol/L (98-107) L 12/12/21 CO2 24 mmol/L (21-32) 12/12/21 Anion Gap 13 (3-11) H 12/12/21 BUN 44 mg/dl (6-23) H 12/12/21 Creatinine 1.73 mg/dl (0.6-1.2) H 12/12/21 Estimated GFR ( Amer) 34.1 ml/min 12/12/21 Estimated GFR (Non-Af Amer) 29.4 ml/min 12/12/21 BUN/Creatinine Ratio 25.4 (10-20) H 12/12/21 Glu 93 mg/dl (70-99(Fasting)) 12/12/21 Ca 8.0 mg/dl (8.5-10.1) L 12/12/21 Total Bilirubin 0.5 mg/dl (0.2-1.0) 12/12/21 AST 27 U/L (13-39) 12/12/21 ALT 11 U/L (7-52) 12/12/21 Alkaline Phosphatase 73 U/L (34-104) 12/12/21 TP 6.6 gm/dl (6.0-8.3) 12/12/21 Albumin 3.5 gm/dl (3.4-5.0) 12/12/21 Globulin 3.1 gm/dl (2.5-4.0) 12/12/21 Albumin/Globulin Ratio 1.1 (0.9-2) 12/12/21 Mg 1.5 mg/dl (1.7-2.4) L 12/12/21 05:40 12/12/21 Calcium Level 8.0 mg/dl (8.5-10.1) L 12/12/21 05:40 12/12/21 Prothromb Time International Ratio 1.1 (0.9-1.1) 12/12/21 05:40 12/12/21 Diagnostic Findings (Past 24 Hours) Chest X-Ray 12/12/21 05:49 XR chest 1V portable supine CLINICAL HISTORY: cardiac pt COMPARISON STUDY: Chest CT August 01, 2021. FINDINGS: Tip of endotracheal tube is 5.2 cm above the michelle. Right shoulder arthroplasty is incidentally noted. Prominence of the aortic arch is likely due to supine technique. Extensive left lung airspace opacities noted. Right midlung airspace opacity is present. There is no pneumothorax. No definite pleural effusion. Cardiomegaly is noted. Chronic deformity of the left shoulder is present. IMPRESSION: 1. Tip of endotracheal tube 5.2 cm above the michelle. 2. Extensive left lung airspace opacity which could reflect pneumonia or atelectasis. Right midlung opacity which favors atelectasis. 3. Cardiomegaly. Pulmonary vascular congestion. 4. Prominence of the aortic arch which is likely due to supine technique. ACT 112: Negative or not required by law. Electronically signed by: Alan Sanches M.D. 12/12/2021 6:[address] 12/12/21 06:11 CT OF THE CHEST WITHOUT IV CONTRAST CLINICAL HISTORY: Intubated. Evaluate left lung. COMPARISON STUDY: Chest CT August 01, 2021. Chest radiograph December 12, 2021. CT DOSE: 2446.06 mGy.cm TECHNIQUE: Axial images of the chest were obtained without IV contrast. Images were reviewed in the axial, sagittal, and coronal planes. IV contrast was not administered for this examination. Automated exposure control was utilized for the study. A dose lowering technique was utilized adhering to the principles of ALARA. FINDINGS: Tip of endotracheal tube is 3.2 cm above the michelle. Tip of nasogastric tube is within the body of the stomach. Right shoulder arthroplasty is noted. Chronic deformity of the left shoulder is incidentally noted. Moderate cardiomegaly is noted. There is no pericardial effusion. Mildly enlarged mediastinal lymph nodes have slightly increased in size since CT of August 01, 2021. Index precarinal lymph node on image [id number] 301 measures 2.1 x 1.7 cm. There is no pneumothorax. There are trace bilateral pleural effusions. Extensive left lung airspace opacity is noted with volume loss. Subpleural right lung airspace opacities, greatest within the right middle lobe, favor atelectasis. Mild interlobular septal thickening is noted. Mild secretions within the trachea and mainstem bronchi are present. No acute fracture or suspicious lesion within the visualized bony thorax. IMPRESSION: 1. Extensive left lung airspace opacities with volume loss. This could reflect pneumonia, aspiration pneumonitis or atelectasis. Right lung airspace opacities which favor atelectasis. 2. Cardiomegaly. Suspected mild interstitial pulmonary edema. Trace bilateral effusions. 3. Mildly enlarged mediastinal lymph nodes. These may be reactive. Follow up chest CT in 6 months is recommended. ACT 112: Negative or not required by law. Electronically signed by: Alan Sanches M.D. 12/12/2021 6:[address] 12/12/21 06:11 CT head/brain wo con CLINICAL HISTORY: altered ms Technique: Contiguous axial CT images of the head were acquired from the base of the skull to the vertex without intravenous contrast administration. Images were viewed in brain, subdural and bone windows. Automated dose lowering techniques and/or adjustment according to patient size were utilized for this exam. Comparison: Comparison is made to CT head 02/07/2021 Findings: Areas of decreased attenuation are present in the periventricular and subcortical white matter bilaterally consistent with small vessel ischemic disease. Generalized cerebral atrophy with commensurate enlargement of the ventricles, sulci, and cisterns is also present. There is no acute intracranial hemorrhage or evidence of acute territorial infarction. No shift of the midline structures, mass effect, or extra-axial abnormalities are shown. Atherosclerotic calcifications are present in the intracranial segments of the internal carotid arteries. Left maxillary sinus opacification is seen. There is mucous thickening multiple multiple ethmoid air cells and frontal sinuses. The orbits appear normal. There are no acute fractures of the calvaria or scalp swelling. Impression: No acute intracranial hemorrhage, no evidence of acute territorial infarction or other acute intracranial disease process. Sinus disease. ACT 112: Negative or not required by law. Electronically signed by: Jerry White M.D. 12/12/2021 7:04 AM I & O Totals 24 Hours 12/11/21 12/12/21 12/13/21 06:59 06:59 06:59 Intake Total 1999 146.382 / 146.382 Balance 1999 146.382 / 146.382 Cumulative 12/12/21 05:08 thru 12/12/21 07:57 Intake Total 2146.382 Balance 2146.382 RT Ventilator Mngmt (Last Documented) Ventilator Ordered Settings Ventilator Support Mode Assist Control 12/12/21 08:00 Respiratory Rate 24 12/12/21 08:21 Ventilator Tidal Volume 350 12/12/21 08:00 Setting Minute Ventilation 10.5 12/12/21 08:00 Positive End Expiratory 8 12/12/21 08:00 Pressure Fraction of Inspired Oxygen 50 12/12/21 08:21 Machine Comment vent settings changed post ABG 12/12/21 08:00 results Ventilator - PT Measurements Respiratory Rate 24 Exhaled Tidal Volume 350 Minute Ventilation 10.5 Peak Inspiratory Airway 29 Pressure Respiratory Cycle Inspiratory: 1:1.9 Expiratory Ratio Inspiratory Phase Time 0.7 End-Tidal CO2 52 Dynamic Lung Compliance 16.67 Normal Static Lung Compliance 45.00 Patient Measurements Comment ETT advanced to 27cm per Dr. Sage verbal order post CXR and CT scan. SpO2 97%. Coding Level of Care Code Critical Care 1st 30-74 mins Diagnoses Respiratory failure with hypoxia and hypercapnia J96.01; J96.02 Chronicity: acute Pneumonia J18.9 Laterality: left Lung location: upper lobe of lung Pneumonia type: due to unspecified organism Septic shock A41.9; R65.21 Cor pulmonale I27.81 (1) Respiratory failure with hypoxia and hypercapnia Chronicity: acute Qualified Code(s): J96.01 - Acute respiratory failure with hypoxia; J96.02 - Acute respiratory failure with hypercapnia (2) Pneumonia Laterality: left Lung location: upper lobe of lung Pneumonia type: due to unspecified organism Qualified Code(s): J18.9 - Pneumonia, unspecified organism
[2021-12-12] MEDS ORDERED: VANCOMYCIN HCL 2,250 MG in SODIUM CHLORIDE 0.9% 500 ML IV ONE (10:00)
--- NOTE | 2021-12-12 11:07 | Pharmacy Report ---
Pharmacy PK ABX Note - Date of Service December 12, 2021 - Assessment and Plan Assessment 71 year old F receiving Vancomycin and Cefepime for treatment of pneumonia. * PMHx significant for current every day smoker, obesity, COPD, T2DM. Recently on Azithromycin and Levofloxacin as an outpatient. * Afebrile with a leukocytosis of 15k. EYAD with SCr up to 1.73, baseline 0.6 mg/dL. Lactate of 4.7. UA appears contaminated. Urine and blood cultures pending. Received a dose of Zosyn and Levofloxacin in ED. Was intubated in the ED for acute hypoxic respiratory failure and requiring vasopressor support at this time. * Plan for bronchoscopy today. Plan Vancomycin * Loading dose: 2250 mg IV X 1 * Maintenance dose: 1000 mg IV every 24 hours * Regimen is predicted to achieve AUC/MIGEL of 692 mg/L.hr which is supratherapeutic. However, given severity of illness want to be aggressive with dosing to start. * Random level ordered for: 12/13/21 given EYAD and need to assess dose. Cefepime * 2000 mg IV every 12 hours is appropriate given patient's EYAD (target dose would be 2000 mg IV every 8 hours). Pharmacy will continue to follow and will adjust dose/frequency as necessary. Thank you. Pharmacy has transitioned to AUC monitoring for vancomycin. AUC/MIGEL is the p referred PK/PD target and is associated with decreased risk of nephrotoxicity compared to traditional trough targets.
--- NOTE | 2021-12-12 11:32 | XCELERA ---
[id number] \\[id number]
--- NOTE | 2021-12-12 11:42 | Electrocardiogram Report ---
Test Reason : Blood Pressure : / mmHG Vent. Rate : 084 BPM Atrial Rate : 084 BPM P-R Int : 232 ms QRS Dur : 144 ms QT Int : 438 ms P-R-T Axes : 082 128 -04 degrees QTc Int : 517 ms Sinus rhythm with 1st degree A-V block Non-specific intra-ventricular conduction block Possible Right ventricular hypertrophy T wave abnormality, consider anterior ischemia Abnormal ECG When compared with ECG of 14-FEB-2021 03:27, ID interval has increased Confirmed by Landon Malcolm ([id number]) on 12/12/2021 11:42:01 AM Referred By: REFERRED SELF Confirmed By:Michael Malcolm
--- NOTE | 2021-12-12 11:43 | Electrocardiogram Report ---
Test Reason : Blood Pressure : / mmHG Vent. Rate : 082 BPM Atrial Rate : 082 BPM P-R Int : 190 ms QRS Dur : 152 ms QT Int : 450 ms P-R-T Axes : 089 129 056 degrees QTc Int : 525 ms Normal sinus rhythm with sinus arrhythmia Right bundle branch block Abnormal ECG When compared with ECG of 12-DEC-2021 05:26, (unconfirmed) SC interval has decreased Nonspecific T wave abnormality has replaced inverted T waves in Inferior leads Confirmed by Landon Malcolm ([id number]) on 12/12/2021 11:42:41 AM Referred By: REFERRED SELF Confirmed By:Michael Malcolm
[2021-12-12 12:07] LABS: iSTAT Hematocrit 26 % (37-47); iSTAT Hemoglobin 8.8 g/dl (12.0-16.0); iSTAT Potassium 4.7 mmol/L (3.3-5.0); iSTAT Sodium 126 mmol/L (135-144)
[2021-12-12 12:08] LABS: iSTAT Arterial Blood Gas HCO3 23 meg/L (19-24); iSTAT Arterial Blood Gas pCO2 65 mmHg (35-46); iSTAT Arterial Blood Gas pH 7.15 (7.35-7.45); iSTAT Arterial Blood Gas pO2 68 mmHg (80-95); iSTAT Carbon Dioxide 25 mmol/L (24-31)
[2021-12-12] MEDS: CEFEPIME 2,000 MG in SYRINGE 0 ML IV SCH (12:26)
[2021-12-12] MEDS: fentaNYL citrate 100 MCG/2 ML VIAL IV PRN ×3 (12:30→19:30)
[2021-12-12] MEDS ORDERED: MIDAZOLAM HCL 1 MG/ML 2ML VIAL ONE ×2 (12:57→20:01)
--- NOTE | 2021-12-12 13:16 | Procedure Note ---
Procedure Note Date of Service December 12, 2021 Note Procedure date: Noted above Procedure: Central venous access Pre-procedure indication: Need for vasoactive medication administration Post-procedure Diagnosis: same as above Prior to Procedure: Informed Consent: The risks, benefits, indications, potential complications, and alternatives were explained to the patient's daughter and informed consent obtained. Attending Staff: Ravindra Dang DO Resident/APC: Not applicable Skin Prep: Chlorhexidine Anesthesia: 4 mL 1% lidocaine without epinephrine The identity of the patient was confirmed and a bedside time out was performed. Description of Procedure: After sterile prep and sterile drape utilizing standard sterile technique the superficial skin of the left internal jugular area was anesthetized. The target vessel was identified and entered with an 18- gauge needle. Dark venous blood return was noted. A guidewire was inserted through the needle and into the vessel. The needle was withdrawn and a skin arun was made. A tissue dilator was advanced via Seldinger technique and removed. A triple lumen catheter was inserted via Seldinger technique and the guidewire removed. All ports hayde and flushed easily. A Biopatch was placed, and the catheter was secured via silk suture, and commercial securement device. A sterile dressing was then applied. Complications: None Estimated blood loss: Trace Patient tolerated the procedure well. Procedure Date: Noted Above Procedure: Procedural Ultrasound Indication: Central venous access Attending: Ravindra Dang DO Resident/Physician Ammonia Box Operator: Not applicable Artery visualized: Yes Vein visualized: Yes Compressible Vein: Yes Vein patent: Yes Guidewire or Short Catheter seen in vein prior to dilation: Yes Line confirmed in Vein with ultrasound: Yes Lung Sliding on side of attempt (if applicable): NA If no lung sliding or not obtained has CXR been ordered: Yes Impression: Successful central venous access placement Images obtained are saved for permanent record Coding CPT Codes Tubes, Drains, and Vasc Access - Tubes, Drains, and Vasc Access: [id number] Insertion Of Non-tunneled Catheter Age 6 Yrs> ([id number]) Tubes, Drains, and Vasc Access - Tubes, Drains, and Vasc Access: [id number] Ultrasound Guidance For Vascular ([id number]) [facility] [place] Procedure Codes (Charges) Tubes, Drains, and Vasc Access Procedure 1: Tubes, Drains, and Vasc Access: [id number] Insertion Of Non-tunneled Catheter Age 6 Yrs> Procedure 2: Tubes, Drains, and Vasc Access: [id number] Ultrasound Guidance For Vascular
--- NOTE | 2021-12-12 13:17 | Procedure Note ---
Procedure Note Date of Service December 12, 2021 Note Procedure date: Noted above Procedure: Radial artery cannulation Pre-procedure Diagnosis: Need for invasive monitoring, hypotension/frequent blood draws Post-procedure Diagnosis: same as above Prior to Procedure: Informed Consent: The risks, benefits, indications, potential complications, and alternatives were explained to the patient's daughter and informed consent obtained. Attending Staff: Ravindra Dang DO Skin Prep: Chlorhexidine Anesthesia: 3 mL 1% lidocaine without epinephrine The identity of the patient was confirmed and a bedside time out was performed. Description of Procedure: After sterile prep and sterile drape utilizing standard sterile technique the superficial skin of the right radial artery was anesthetized. The target artery was identified via dynamic ultrasound guidance and entered with a 20-gauge arrow Angiocath. Pulsatile bright red blood return was noted. Via modified Seldinger technique the self-contained guidewire was advanced and the Angiocath advanced over the guidewire. The guidewire was removed and brisk arterial blood return was noted. The pressure monitor was connected, and the arterial line was secured via commercial securement device. A sterile dressing was then applied. Complications: None Estimated blood loss: Trace Patient tolerated the procedure well. Coding CPT Codes Tubes, Drains, and Vasc Access - Tubes, Drains, and Vasc Access: [id number] Insertion Catheter, Artery ([id number]) [facility] [place] Codes (Charges) Tubes, Drains, and Vasc Access Procedure 1: Tubes, Drains, and Vasc Access: [id number] Insertion Catheter, Artery
--- NOTE | 2021-12-12 13:18 | Procedure Note ---
Procedure Note Date of Service December 12, 2021 Note Procedure date: Noted above Procedure: fiberoptic bronchoscopy Pre-procedure indication: Pneumonia Post-procedure Diagnosis: same as above Prior to Procedure: Informed Consent: The risks, benefits, indications, potential complications, and alternatives were explained to the patient's daughter and informed consent obtained. Attending Staff: Ravindra Dang DO Resident/APC: Not applicable Skin Prep: Not applicable Anesthesia: 100 mcg fentanyl The identity of the patient was confirmed and a bedside time out was performed. Description of Procedure: Fiberoptic bronchoscopy was performed via endotracheal tube. Bronchioalveolar lavage left lower and upper lobe was performed. Findings included: Scant white thick secretions largely in the left lobes, right lobe appeared largely unremarkable Complications: None Specimens: Bronchial washings sent for culture and Gram stain, fungal elements, AFB stain and culture, cell count differential. Estimated blood loss: Zero Coding CPT Codes Pulmonary/Thoracic - Pulmonary and Thoracic: 35898 Dx bronchoscopy/BAL ([id number]) [facility] [place] Procedure Codes (Charges) Pulmonary/Thoracic Procedure 1: Pulmonary and Thoracic: 87931 Dx bronchoscopy/BAL
--- NOTE | 2021-12-12 14:03 | XRay Report ---
XR chest 1V portable at 1:45 PM CLINICAL HISTORY: Status post line placement following bronchoscopy.. COMPARISON STUDY: 12/12/2021 at 5:46 AM TECHNIQUE: 1 view of the chest FINDINGS: Single frontal view of the chest demonstrates the heart to be enlarged. Endotracheal tube has been fu rther advanced with its tip is now 2.9 cm above the michelle. NG tube is also in place with its tip ext ending below the edge of the film and into the stomach. There is also evidence for fluid appears to be a left jugular catheter. However, its tip appears to b e within the distal left jugular vein and has not extended into the SVC. There is no evidence for pne umothorax. There has been interval development of mild diffuse interstitial edema. Left lung airspace opacities are again seen with blunting of left costophrenic angle most characteristic of underlying pleural eff usion as well. Small right pleural effusion cannot be excluded. There is no acute osseous pathology. IMPRESSION: 1. Interval development of diffuse interstitial edema. 2. Left lung opacity is again seen along with evidence for left pleural effusion. 3. Repositioning of ET tube distally. 4. NG tube extending below the edge of the film and into the stomach. 5. Suspicion of left jugular catheter with its tip still in the distal jugular vein and not extending into the SVC. ACT 112: Negative or not required by law. Electronically signed by: Gumaro Murdock M.D. 12/12/2021 2:01 PM
[2021-12-12 14:06] LABS: iSTAT Allen Test Pass; iSTAT Arterial Blood Gas HCO3 22 meg/L (19-24); iSTAT Arterial Blood Gas pCO2 39 mmHg (35-46); iSTAT Arterial Blood Gas pH 7.36 (7.35-7.45); iSTAT Arterial Blood Gas pO2 62 mmHg (80-95); iSTAT Carbon Dioxide 23 mmol/L (24-31); iSTAT FiO2 60 %; iSTAT Site L Radial
[2021-12-12] MEDS: HEPARIN SOD 5,000 UNIT/0.5 ML VIAL SQ SCH ×2 (16:21→21:04)
[2021-12-12] MEDS: MAGNESIUM SULFATE / D5W 1 GM/100 ML BAG IV SCH ×2 (16:23→18:21)
[2021-12-12] MEDS ORDERED: fentaNYL citrate 100 MCG/2 ML CARP IV ONE (18:09)
[2021-12-12] MEDS ORDERED: ETOMIDATE 2 MG/ML 20 ML VIAL IV ONE (18:09)
[2021-12-12] MEDS ORDERED: methylPREDNISolone 50 MG in SYRINGE 0 ML IV SCH (19:45)
[2021-12-12] MEDS ORDERED: MIDAZOLAM HCL 5 MG/ML 1 ML VIAL IV STA (19:59)
[2021-12-12] MEDS: methylPREDNISolone 100 MG in SYRINGE 0 ML IV SCH ×2 (20:30→21:03)
[2021-12-12] MEDS: fentaNYL citrate 2,500 MCG/250 ML BAG IV SCH (21:03)
[2021-12-12] MEDS: MAGNESIUM OXIDE 400 MG TAB PO SCH (21:04)
[2021-12-13] MEDS: CEFEPIME 2,000 MG in SYRINGE 0 ML IV SCH ×3 (01:11→18:12)
[2021-12-13 05:08] LABS: INR 1.1 (0.9-1.1); Partial Thromboplastin Ratio 1.2; Partial Thromboplastin Time 31.7 Seconds (21.0-31.0); Prothrombin Time 11.8 Seconds (9.0-12.0)
[2021-12-13 05:21] LABS: Hematocrit (blood only) 25.5 % (37-47); Hemoglobin 7.8 g/dL (12.0-16.0); Mean Corpuscular Hemoglobin 29.3 pg (25-34); Mean Corpuscular Hgb Conc 30.6 g/dL (32-36); Mean Corpuscular Volume 95.9 fL (80-100); Mean Platelet Volume 8.8 fL (7.4-10.4); Platelet Count 330 K/uL (130-400); RDW Coefficient of Variation 18.1 % (11.5-14.5); RDW Standard Deviation 62.6 fL (36.4-46.3); Red Blood Count 2.66 M/uL (4.2-5.4); White Blood Count 9.48 K/uL (4.8-10.8)
[2021-12-13 05:30] LABS: Creatinine Clr Calc Pharmacy 75.1 ml/min; Est GFR (African American) 82.8 ml/min; Est GFR (Non-African American) 71.4 ml/min
[2021-12-13 05:31] LABS: BUN Creatinine Ratio 36.1 (10-20); Calcium 8.2 mg/dl (8.5-10.1); Magnesium 1.5 mg/dl (1.7-2.4); Phosphorus 2.7 mg/dl (2.5-4.9); Potassium 4.6 mmol/L (3.5-5.1)
[2021-12-13 05:32] LABS: iSTAT Allen Test Pass; iSTAT Art Bld Gas pCO2 Correct 36 mmHg (35-46); iSTAT Art Bld Gas pH Corrected 7.474 (7.35-7.45); iSTAT Arterial Blood Gas HCO3 26 meg/L (19-24); iSTAT Arterial Blood Gas pCO2 36 mmHg (35-46); iSTAT Arterial Blood Gas pH 7.48 (7.35-7.45); iSTAT Arterial Blood Gas pO2 59 mmHg (80-95); iSTAT Arterial Blood Gas pO2 C 59; iSTAT Carbon Dioxide 27 mmol/L (24-31); iSTAT FiO2 60 %; iSTAT Hematocrit 26 % (37-47); iSTAT Hemoglobin 8.8 g/dl (12.0-16.0); iSTAT Potassium 4.4 mmol/L (3.3-5.0); iSTAT Site L Radial; iSTAT Sodium 131 mmol/L (135-144)
[2021-12-13] MEDS: HEPARIN SOD 5,000 UNIT/0.5 ML VIAL SQ SCH ×3 (05:38→19:55)
[2021-12-13] MEDS: MIDAZOLAM HCL 1 MG/ML 2ML VIAL IV PRN ×5 (05:39→22:02)
[2021-12-13 05:41] LABS: Basophils # (auto) 0.01 K/uL (0-0.2); Basophils % (auto) 0.1 %; Eosinophils # (auto) 0.01 K/uL (0-0.5); Eosinophils % (auto) 0.1 %; Hypochromasia Present; Immature Granulocytes # (auto) 0.03 K/uL (0.00-0.02); Immature Granulocytes % (auto) 0.3 %; Lymphocytes # (auto) 0.21 K/uL (1.2-3.4); Lymphocytes % (auto) 2.2 %; Macrocytosis Present; Monocytes # (auto) 0.23 K/uL (0.11-0.59); Monocytes % (auto) 2.4 %; Neutrophils # (auto) 8.99 K/uL (1.4-6.5); Neutrophils % (auto) 94.9 %; Polychromasia 1+
--- NOTE | 2021-12-13 07:41 | XRay Report ---
XR chest 1V portable CLINICAL HISTORY: Follow-up interstitial edema and left lung opacity. COMPARISON STUDY: 12/12/2021 TECHNIQUE: 1 view of the chest FINDINGS: Single frontal view of the chest demonstrates the heart to again be enlarged. The position of the pat ient's tubes and catheters are unchanged. Diffuse increased lung opacity is again seen on the left wi th only minimal aeration of the left lung apex. Findings are most likely related to combination of le ft pleural effusion and left lung atelectasis/collapse. The right lung is again clear with evidence for mild vascular congestion. This has improved since the previous study. There is no evidence for right pleural effusion . There is no acute osseous patholog y. IMPRESSION: 1. Slight interval improvement in vascular congestion on the right. 2. No change in appearance of the left hemithorax or the patient's tubes and catheters. ACT 112: Negative or not required by law. Electronically signed by: Gumaro Murdock M.D. 12/13/2021 7:39 AM
[2021-12-13] MEDS ORDERED: VANCOMYCIN HCL 1,000 MG in SODIUM CHLORIDE 0.9% 250 ML IV SCH ×2 (08:00→14:00)
[2021-12-13] MEDS: methylPREDNISolone 100 MG in SYRINGE 0 ML IV SCH (08:30)
[2021-12-13] MEDS ORDERED: STAT IV Infusion **Titration per Protocol STA (09:34)
--- NOTE | 2021-12-13 09:34 | Critical Care Progress Note ---
Date of Service December 13, 2021 Assessment & Plan (1) Respiratory failure with hypoxia and hypercapnia: Plan: Reason Critically Ill: 71-year-old female with history of symptomatic anemia who presents with hypotension and sepsis-like syndrome with presumptive left upper lobe pneumonia PLAN: Neuro: Acute encephalopathy: improved Resp: Acute on chronic respiratory failure with hypoxia and hypercapnia -Chronic O2 use at home - Failed SBT today, decreased ventilation rate CV: Hypotension, resolved Elevated troponin -echocardiogram reviewed, evidence consistent with cor pulmonale/pulmonary hypertension -Suspect type II ischemia Prolonged QTC: Suspect artifact secondary to a right bundle branch block Fluids/Renal: Acute kidney injury Baseline approximately 0.5: Improved -Holding diuresis today will consider tomorrow Hypomagnesemia -4 g magnesium and additional p.o. supplementation ID: Left upper lobe pneumonia -Cefepime, vancomycin -Nasal MRSA negative: discontinue vancomycin -Received Levaquin in ED transition from Levaquin secondary to prolonged QTC GI/Nutrition: Start tube feedings - Pepcid for GI prophylaxis. Guaiac stool x1 when produced Heme: Anemia: Followed by oncology -S/P 1 unit packed red blood cells DVT prophylaxis: Heparin subcu 7,500 units every 8 hours Endocrine: ICU hyperglycemia protocol - Sliding scale Vascular access: Left internal jugular CVC placed 12/12 Code Status: DNR in event of cardiac arrest Disposition: ICU (2) Pneumonia: (3) Septic shock: (4) Cor pulmonale: Admission and Anticipated Discharge Date Admission Date: December 12, 2021 Supervising Physician Co-Signing Physician Notes I have personally spent 45 minutes of critical care time in the direct management of this patient. This is a life/limb threatening event. This includes time spent evaluating patient, direct bedside care, chart review, placing orders, interpretation of diagnostic studies, discussion with consultants, patient, and/or family members regarding treatment decisions, as well as other required patient management activities. This time is exclusive of all separately billable procedures, and teaching time and separate from and in addition to any other critical care service time. Patient was discussed in multidisciplinary rounds Subjective Arterial line was discontinued due to no wave form. Review of Systems Review of Systems: Unobtainable due to endotracheal tube Physical Exam Physical Exam: General: Sedated. nontoxic. Skin: Warm, dry, Head: Atraumatic Ears, nose, mouth and throat: airway obscured by endotracheal tube Cardiovascular: Decreased peripheral perfusion, increased time to capillary refill Respiratory: Ventilator settings reviewed Gastrointestinal: Non distended Musculoskeletal: Congenitally short left upper extremity. 1+ pitting edema bilateral lower extremities Results & Data Results & Data ([facility]) Vital Signs (Past 12 Hours) Vital Signs Temp Pulse Pulse Resp BP BP Pulse Ox 12/13/21 07:19 73 31 H 93 12/13/21 06:58 84 12/13/21 05:22 26 H 12/13/21 05:00 37.2 C 85 30 H 132/83 94 12/13/21 04:45 37.2 C 89 30 H 142/78 H 93 12/13/21 04:30 37.2 C 75 35 H 155/62 H 96 12/13/21 04:15 37.3 C 88 31 H 142/73 H 98 12/13/21 04:06 93 H 35 H 96 12/13/21 04:00 37.3 C 99 H 28 H 159/122 H 95 12/13/21 03:45 37.4 C 81 30 H 131/71 97 12/13/21 03:30 37.4 C 83 30 H 127/63 97 12/13/21 03:15 37.5 C 82 30 H 130/66 98 12/13/21 03:01 37.6 C H 99 H 36 H 141/91 H 98 12/13/21 03:00 37.6 C H 99 H 39 H 98 12/13/21 02:45 37.7 C H 94 H 32 H 114/76 97 12/13/21 02:30 37.8 C H 101 H 35 H 121/79 98 12/13/21 02:15 37.8 C H 90 30 H 121/68 96 12/13/21 02:00 37.9 C H 90 30 H 121/66 96 12/13/21 01:45 37.9 C H 93 H 30 H 119/62 95 12/13/21 01:30 38.0 C H 93 H 30 H 119/61 95 12/13/21 01:15 38.0 C H 89 30 H 129/63 98 12/13/21 01:00 38.1 C H 92 H 30 H 143/74 H 97 12/13/21 00:45 38.1 C H 92 H 30 H 129/67 97 12/13/21 00:30 38.2 C H 88 30 H 176/86 H 98 12/13/21 00:15 38.2 C H 90 30 H 155/84 H 97 12/13/21 00:00 38.3 C H 90 30 H 154/75 H 96 12/12/21 23:45 38.4 C H 95 H 30 H 137/78 96 12/12/21 23:30 38.4 C H 96 H 30 H 167/89 H 97 12/12/21 23:15 38.5 C H 94 H 30 H 175/83 H 96 12/12/21 23:00 100 H 30 H 173/81 H 92 12/12/21 22:19 38.8 C H 98 H 30 H 165/94 H 95 12/12/21 22:00 38.8 C H 108 H 30 H 148/88 H 96 12/12/21 21:45 38.8 C H 93 H 30 H 169/73 H 98 Critical Care Results & Data Vital Signs (Past 12 Hours) Vital Signs Temp Pulse Pulse Resp BP BP Pulse Ox 12/13/21 07:19 73 31 H 93 12/13/21 06:58 84 12/13/21 05:22 26 H 12/13/21 05:00 37.2 C 85 30 H 132/83 94 12/13/21 04:45 37.2 C 89 30 H 142/78 H 93 12/13/21 04:30 37.2 C 75 35 H 155/62 H 96 12/13/21 04:15 37.3 C 88 31 H 142/73 H 98 12/13/21 04:06 93 H 35 H 96 12/13/21 04:00 37.3 C 99 H 28 H 159/122 H 95 12/13/21 03:45 37.4 C 81 30 H 131/71 97 12/13/21 03:30 37.4 C 83 30 H 127/63 97 12/13/21 03:15 37.5 C 82 30 H 130/66 98 12/13/21 03:01 37.6 C H 99 H 36 H 141/91 H 98 12/13/21 03:00 37.6 C H 99 H 39 H 98 12/13/21 02:45 37.7 C H 94 H 32 H 114/76 97 12/13/21 02:30 37.8 C H 101 H 35 H 121/79 98 12/13/21 02:15 37.8 C H 90 30 H 121/68 96 12/13/21 02:00 37.9 C H 90 30 H 121/66 96 12/13/21 01:45 37.9 C H 93 H 30 H 119/62 95 12/13/21 01:30 38.0 C H 93 H 30 H 119/61 95 12/13/21 01:15 38.0 C H 89 30 H 129/63 98 12/13/21 01:00 38.1 C H 92 H 30 H 143/74 H 97 12/13/21 00:45 38.1 C H 92 H 30 H 129/67 97 12/13/21 00:30 38.2 C H 88 30 H 176/86 H 98 12/13/21 00:15 38.2 C H 90 30 H 155/84 H 97 12/13/21 00:00 38.3 C H 90 30 H 154/75 H 96 12/12/21 23:45 38.4 C H 95 H 30 H 137/78 96 12/12/21 23:30 38.4 C H 96 H 30 H 167/89 H 97 12/12/21 23:15 38.5 C H 94 H 30 H 175/83 H 96 12/12/21 23:00 100 H 30 H 173/81 H 92 12/12/21 22:19 38.8 C H 98 H 30 H 165/94 H 95 12/12/21 22:00 38.8 C H 108 H 30 H 148/88 H 96 12/12/21 21:45 38.8 C H 93 H 30 H 169/73 H 98 Lab & Micro Results (Past 24 Hours) RBC 2.66 M/uL (4.2-5.4) L 12/13/21 WBC 9.48 K/uL (4.8-10.8) 12/13/21 Hgb 7.8 g/dL (12.0-16.0) L 12/13/21 Hct 25.5 % (37-47) L 12/13/21 MCV 95.9 fL (80-100) 12/13/21 MCH 29.3 pg (25-34) 12/13/21 MCHC 30.6 g/dL (32-36) L 12/13/21 RDW Standard Deviation 62.6 fL (36.4-46.3) H 12/13/21 RDW Coefficient of Variation 18.1 % (11.5-14.5) H 12/13/21 Plt Count 330 K/uL (130-400) 12/13/21 MPV 8.8 fL (7.4-10.4) 12/13/21 Neutrophils (%) (Auto) 94.9 % 12/13/21 Lymphocytes (%) (Auto) 2.2 % 12/13/21 Monocytes # (Auto) 0.23 K/uL (0.11-0.59) 12/13/21 Eosinophils # (Auto) 0.01 K/uL (0-0.5) 12/13/21 Immature Granulocyte % (Auto) 0.3 % 12/13/21 Neutrophils # (Auto) 8.99 K/uL (1.4-6.5) H 12/13/21 Lymphocytes # (Auto) 0.21 K/uL (1.2-3.4) L 12/13/21 Monocytes # (Auto) 0.23 K/uL (0.11-0.59) 12/13/21 Eosinophils # (Auto) 0.01 K/uL (0-0.5) 12/13/21 Basophils # (Auto) 0.01 K/uL (0-0.2) 12/13/21 Immature Granulocyte # (Auto) 0.03 K/uL (0.00-0.02) H 12/13/21 Polychromasia 1+ 12/13/21 Hypochromasia Present 12/13/21 Macrocytosis Present 12/13/21 Na 133 mmol/L (136-145) L 12/13/21 K 4.6 mmol/L (3.5-5.1) 12/13/21 Cl 97 mmol/L (98-107) L 12/13/21 CO2 27 mmol/L (21-32) 12/13/21 Anion Gap 9 (3-11) 12/13/21 BUN 30 mg/dl (6-23) H 12/13/21 Creatinine 0.83 mg/dl (0.6-1.2) 12/13/21 Estimated GFR ( Amer) 82.8 ml/min 12/13/21 Estimated GFR (Non-Af Amer) 71.4 ml/min 12/13/21 BUN/Creatinine Ratio 36.1 (10-20) H 12/13/21 Glu 216 mg/dl (70-99(Fasting)) H 12/13/21 Ca 8.2 mg/dl (8.5-10.1) L 12/13/21 Phosphorus Level 2.7 mg/dl (2.5-4.9) 12/13/21 Mg 1.5 mg/dl (1.7-2.4) L 12/13/21 04:41 12/13/21 Calcium Level 8.2 mg/dl (8.5-10.1) L 12/13/21 04:41 12/13/21 Prothromb Time International Ratio 1.1 (0.9-1.1) 12/13/21 04:41 12/13/21 Zach Test Pass 12/13/21 05:18 12/13/21 Microbiology 12/12/21 13:00 Acid Fast Bacilli Smear - Final Bronch Wash,Left Lower Lobe 12/12/21 06:04 Aerobic Blood Culture - Preliminary Blood No growth in Aerobic bottle after 24 hours. 12/12/21 06:04 Aerobic Blood Culture - Preliminary Blood No growth in Aerobic bottle after 24 hours. Anaerobic Blood Culture - Preliminary No growth in Anaerobic bottle after 24 hours. 12/12/21 13:00 Fungal Smear - Final Bronch Wash,Left Lower Lobe 12/12/21 13:00 Gram Stain - Final Bronch Wash,Left Lower Lobe Diagnostic Findings (Past 24 Hours) Chest X-Ray 12/12/21 12:30 XR chest 1V portable at 1:45 PM CLINICAL HISTORY: Status post line placement following bronchoscopy.. COMPARISON STUDY: 12/12/2021 at 5:46 AM TECHNIQUE: 1 view of the chest FINDINGS: Single frontal view of the chest demonstrates the heart to be enlarged. Endotracheal tube has been further advanced with its tip is now 2.9 cm above the michelle. NG tube is also in place with its tip extending below the edge of the film and into the stomach. There is also evidence for fluid appears to be a left jugular catheter. However, its tip appears to be within the distal left jugular vein and has not extended into the SVC. There is no evidence for pneumothorax. There has been interval development of mild diffuse interstitial edema. Left lung airspace opacities are again seen with blunting of left costophrenic angle most characteristic of underlying pleural effusion as well. Small right pleural effusion cannot be excluded. There is no acute osseous pathology. IMPRESSION: 1. Interval development of diffuse interstitial edema. 2. Left lung opacity is again seen along with evidence for left pleural effusion. 3. Repositioning of ET tube distally. 4. NG tube extending below the edge of the film and into the stomach. 5. Suspicion of left jugular catheter with its tip still in the distal jugular vein and not extending into the SVC. ACT 112: Negative or not required by law. Electronically signed by: Gumaro Murdock M.D. 12/12/2021 2:01 PM Chest X-Ray 12/13/21 07:00 XR chest 1V portable CLINICAL HISTORY: Follow-up interstitial edema and left lung opacity. COMPARISON STUDY: 12/12/2021 TECHNIQUE: 1 view of the chest FINDINGS: Single frontal view of the chest demonstrates the heart to again be enlarged. The position of the patient's tubes and catheters are unchanged. Diffuse increased lung opacity is again seen on the left with only minimal aeration of the left lung apex. Findings are most likely related to combination of left pleural effusion and left lung atelectasis/collapse. The right lung is again clear with evidence for mild vascular congestion. This has improved since the previous study. There is no evidence for right pleural effusion . There is no acute osseous pathology. IMPRESSION: 1. Slight interval improvement in vascular congestion on the right. 2. No change in appearance of the left hemithorax or the patient's tubes and catheters. ACT 112: Negative or not required by law. Electronically signed by: Gumaro Murdock M.D. 12/13/2021 7:39 AM I & O Totals 24 Hours 12/12/21 12/13/21 12/14/21 06:59 06:59 06:59 Intake Total 1999 4095.750 / 4095.750 Output Total 3525 / 3525 Balance 1999 570.750 / 570.750 Cumulative 12/12/21 05:08 thru 12/13/21 06:00 Intake Total 6095.750 Output Total 3525 Balance 2570.750 RT Ventilator Mngmt (Last Documented) Ventilator Ordered Settings Ventilator Support Mode Assist Control 12/13/21 07:19 Respiratory Rate 31 12/13/21 07:19 Ventilator Tidal Volume 350 12/13/21 07:19 Setting Minute Ventilation 10 12/13/21 07:19 Positive End Expiratory 8 12/13/21 07:19 Pressure Fraction of Inspired Oxygen 60 12/13/21 07:19 Machine Comment Post-ABG vent changes per S. 12/13/21 05:22 ABRAHAN Stanley Ventilator - PT Measurements Respiratory Rate 31 Exhaled Tidal Volume 370 Minute Ventilation 10 Peak Inspiratory Airway 28 Pressure Plateau Pressure 21 Respiratory Cycle Inspiratory: 1:2.8 Expiratory Ratio Inspiratory Phase Time 0.6 End-Tidal CO2 32 Static Lung Compliance 28.46 Dynamic Lung Compliance 18.50 Normal Static Lung Compliance 45.00 Patient Measurements Comment Patient is agitated at this time. Coding Level of Care Code Critical Care 1st 30-74 mins Diagnoses Respiratory failure with hypoxia and hypercapnia J96.01; J96.02 Chronicity: acute Pneumonia J18.9 Laterality: left Lung location: upper lobe of lung Pneumonia type: due to unspecified organism Septic shock A41.9; R65.21 Cor pulmonale I27.81 (1) Respiratory failure with hypoxia and hypercapnia Chronicity: acute Qualified Code(s): J96.01 - Acute respiratory failure with hypoxia; J96.02 - Acute respiratory failure with hypercapnia (2) Pneumonia Laterality: left Lung location: upper lobe of lung Pneumonia type: due to unspecified organism Qualified Code(s): J18.9 - Pneumonia, unspecified organism
[2021-12-13] MEDS ORDERED: PHARMACY GLYCEMIC MGMT CONSULT PRN (10:03)
[2021-12-13] MEDS ORDERED: CARBOHYDRATES FOR HYPOGLYCEMIA PO PRN (10:15)
[2021-12-13] MEDS ORDERED: GLUCAGON FOR INJ 1 MG VIAL IM PRN (10:15)
[2021-12-13] MEDS ORDERED: DEXTROSE 50% 50 ML SYRINGE IV PRN (10:15)
[2021-12-13] MEDS ORDERED: GLUCOSE 40% GEL 15 GM TUBE PO PRN (10:15)
[2021-12-13] MEDS ORDERED: GLUCOSE 10 TABS/TUBE PO PRN (10:15)
[2021-12-13] MEDS: dexMEDEtomidine 200 MCG/50 ML BAG IV SCH ×3 (10:25→19:49)
[2021-12-13] MEDS: FAMOTIDINE 20 MG in SYRINGE 3 ML IV SCH ×2 (10:25→19:54)
[2021-12-13] MEDS: INSULIN GLARGINE SOLOSTAR 100 UNITS/ML 3 ML PEN SC SCH (10:36)
[2021-12-13] MEDS: MAGNESIUM SULFATE / D5W 1 GM/100 ML BAG IV SCH ×4 (10:37→16:51)
[2021-12-13] MEDS ORDERED: PEPTAMEN INTENSE VHP 1.0 CAL 1,000 ML BAG OG SCH (12:00)
[2021-12-13] MEDS: TUBE FEEDING WATER FLUSH OG SCH ×3 (12:21→19:50)
[2021-12-13] MEDS: INSULIN ASPART PER UNIT SC SCH ×3 (12:32→19:49)
--- NOTE | 2021-12-13 13:52 | Pharmacy Report ---
Pharmacy Glycemic Short Note 2 - Date of Service December 13, 2021 - Glycemic Short BSG Results (Last 24 hours): 12/12/21 12/13/21 12/13/21 18:20 04:41 12:30 Glucose 216 H POC Glucose 158 H 213 H OUTPATIENT ANTIDIABETIC REGIMEN: * Lantus 35 units SQ AM * Metformin 850 PO TIDM (previous notes state 1700 mg AM + 850 mg PM) * Januvia 100 mg PO HS * HbA1c pending ASSESSMENT: * 71 yo F admitted on 12/12/21 secondary to acute hypoxic respiratory failure requiring intubation and mechanical ventilation. Pharmacy was consulted today to assist with inpatient glycemic management. Most recent HbA1c in August 2021 was 5.0%. Repeat HbA1c is pending. * Stressors include: mechanical ventilation, IV solumedrol 100 mg BID, Cefepime for pneumonia, and addition of trickle feeds today. Pressors were titrated off today. * Will start Novolog based on weight and stress of 3 which is similar to previous admission data. Will give a one time Lantus dose today. Monitor steroid dose and tube feed rate in the AM for further Lantus dosing. PLAN FOR INPATIENT GLYCEMIC CONTROL: * Hold outpatient oral diabetes medications * Basal insulin * Lantus 20 units SQ x 1 * Bolus insulin * NovoLog per scale ACHS or Q6hrs while NPO * Goal Range: Low 110 mg/dL - High 140 mg/dL * Correction Factor: 15 mg/dL/unit * Nutritional / Prandial insulin per carb ratio of 1 unit per 5 grams CHO consumed
--- NOTE | 2021-12-13 14:34 | Hospitalist Progress Note ---
Date of Service December 13, 2021 Assessment & Plan (1) Respiratory failure with hypoxia and hypercapnia: Plan: Traci is a 71-year-old female with a past medical history of type 2 diabetes, chronic anemia requiring transfusion and iron infusions of unknown but suspected GI etiology but without history of GI bleeding or guaiac positive stool, hypertension, hyperlipidemia, bilateral shoulder weakness with left shoulder deformity, SBO, subdural hematoma and cardiomegaly without history of NE/stents/bypass/CAD by report who presented in septic shock with oxygen levels in the 50s and he was found to have a left upper lobe density consistent with pneumonia on CT. Acute hypoxic respiratory failure with sepsis 2/2 left upper lobe pneumonia Home O2 requirements of 3 L at night and as needed during the day with ambulation Leukocytosis to 14, febrile on admission, subsequently normalized SPO2 in the 50s on arrival, improved with intubation and ventilation -Admit pH: 7.15, PCO2 73, PO2 155, HCO3 26 Received Levaquin in ER, MRSA nares negative. 3L NSS rescuscitation in ER -Admitted to ICU on cefepime/Vanco with critical illness converted from Levaquin for QT Patient intubated in ER with etomidate, sedation with 50 mcg of fentanyl with an hour of effective sedation. Other agents avoided due to hypotension and labile pressure Creatinine 1.73 from baseline less than 1 --> normal 12/13 Lactate 4.4 on arrival, 4.7 on recheck --> normalized 12/13 Intubated, ventilated as above Required push epi + norepi drip on admit for BP support. Continue norepi drip per ICU, currently @ 0.05 Fenantyl drip initially for sedation, weaned with + doses ICU following - Did not pass breathing trial 12/13, remains intubated Troponin elevation Troponin high-sensitivity 146.5, uptrending to 325.7. Peaked and downtrending EKG: T wave inversion in inferior leads,? ST segment changes and right bundle branch block with QT prolongation Prior EKG : Right bundle branch block, NSR No preceding history of chest pain/CAD, suspect severe demand in the setting of hypoxia and pneumonia above TTE: LV SF normal, mild concentric LVH, grade 1 diastolic dysfunction, RV dilation, elevated RVSP EYAD, no history of CKD. 2/2 sepsis Creatinine baseline less than 1 Creatinine 1.73 on admission in the setting of sepsis - Normalized 12/13 History of chronic anemia Follows [facility], records [facility] in [facility] system. ER case management unable to access [facility] [place]. Attempted to obtain record through [facility] [place], last note in 2019 and no notes from hematology visible? We will attempt to clarify through HIM No prior history of CKD,? Poor production. Is not pancytopenic. 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 No maintenance inhalers No PFTs available for review Type II DM ICU hyperglycemia protocol Hold home metformin, Isabel Last A1c 5.0%, well controlled Hyperlipidemia Atorvastatin 80 mg p.o. at bedtime History of depression Seroquel 50 mg p.o. nightly held Electrolytes Icu electrolyte protocol, magnesium 1.5, potassium 4.4 DVT prophylaxis: Heparin subcu Diet: N.p.o. Disposition: ICU CODE STATUS: DNR/DNI, discussed with daughter at bedside (2) Pneumonia: (3) Septic shock: (4) Hyponatremia: (5) SIRS (systemic inflammatory response syndrome): (6) Uncontrolled type 2 diabetes mellitus with hyperosmolarity, without long- term current use of insulin: (7) Left shoulder pain: (8) Hypertension: (9) Hyperlipidemia: (10) Chronic obstructive pulmonary disease: Admission and Anticipated Discharge Date Admission Date: December 12, 2021 Subjective Intubated, sedated, did not pass breathing trial this morning. Subjective unable to be obtained due to ETT Review of Systems Review of Systems: Unobtainable due to endotracheal tube Physical Exam Physical Exam: General: Intubated, sedated. Appears critically ill. HEENT: Atraumatic, normocephalic. Vision and hearing unable to be assessed. Pulm: Remains on ventilator, symmetrical chest rise, coarse Cardiac: RRR, -MRG, heart sounds distant Abdomen: Obese, soft. Extremities: Warm, dry. LUE contracted. Results & Data Results & Data ([facility]) Vital Signs (Past 12 Hours) Vital Signs Temp Pulse Resp BP Pulse Ox 12/13/21 14:00 36.8 C 71 17 130/66 95 12/13/21 13:45 36.8 C 58 L 17 133/67 95 12/13/21 13:30 36.8 C 61 16 136/73 95 12/13/21 13:15 36.9 C 82 29 H 138/64 96 12/13/21 13:00 36.9 C 88 26 H 147/93 H 98 12/13/21 12:45 36.9 C 65 16 133/66 97 12/13/21 12:30 36.9 C 72 19 146/78 H 98 12/13/21 12:15 37.0 C 73 18 123/77 96 12/13/21 12:00 37.0 C 72 31 H 149/80 H 97 12/13/21 11:45 36.9 C 76 33 H 163/100 H 97 12/13/21 11:30 36.9 C 76 39 H 134/86 100 12/13/21 11:16 36.9 C 70 22 136/106 H 95 12/13/21 11:01 36.9 C 74 31 H 196/84 H 92 12/13/21 11:00 36.9 C 74 32 H 93 12/13/21 10:46 36.9 C 76 24 180/87 H 91 12/13/21 10:33 75 35 H 92 12/13/21 10:30 36.9 C 76 38 H 147/96 H 91 12/13/21 10:15 36.8 C 72 29 H 164/93 H 91 12/13/21 10:00 36.8 C 73 28 H 158/93 H 91 12/13/21 09:45 36.8 C 81 29 H 173/90 H 92 12/13/21 09:30 36.9 C 92 H 47 H 182/97 H 97 12/13/21 09:15 36.9 C 73 17 156/91 H 96 12/13/21 09:01 36.9 C 75 40 H 157/84 H 97 12/13/21 09:00 36.9 C 73 34 H 98 12/13/21 08:45 36.9 C 92 H 42 H 128/73 98 12/13/21 08:30 36.9 C 77 26 H 134/67 94 12/13/21 08:15 36.9 C 79 28 H 114/86 96 12/13/21 07:19 73 31 H 93 12/13/21 06:58 84 06/14/22 05:22 26 H 12/13/21 05:00 37.2 C 85 30 H 132/83 94 12/13/21 04:45 37.2 C 89 30 H 142/78 H 93 12/13/21 04:30 37.2 C 75 35 H 155/62 H 96 12/13/21 04:15 37.3 C 88 31 H 142/73 H 98 12/13/21 04:06 93 H 35 H 96 12/13/21 04:00 37.3 C 99 H 28 H 159/122 H 95 12/13/21 03:45 37.4 C 81 30 H 131/71 97 12/13/21 03:30 37.4 C 83 30 H 127/63 97 12/13/21 03:15 37.5 C 82 30 H 130/66 98 12/13/21 03:01 37.6 C H 99 H 36 H 141/91 H 98 12/13/21 03:00 37.6 C H 99 H 39 H 98 12/13/21 02:45 37.7 C H 94 H 32 H 114/76 97 12/13/21 02:30 37.8 C H 101 H 35 H 121/79 98 PG Care Time/CCT Total # of Minutes Spent Total Time Spent with Patient: Total time spent is greater than 50% in coordination of care (as documented) at patient's floor/unit and/or counseling patient: Coding Level of Care Code 11983 Subseq Hosp Care Lvl 1 Diagnoses Respiratory failure with hypoxia and hypercapnia J96.01; J96.02 Chronicity: acute Pneumonia J18.9 Laterality: left Lung location: upper lobe of lung Pneumonia type: due to unspecified organism Septic shock A41.9; R65.21 Hyponatremia E87.1 SIRS (systemic inflammatory response syndrome) R65.10 Uncontrolled type 2 diabetes mellitus with hyperosmolarity, without long-term current use of insulin E11.00 Left shoulder pain M25.512 Hypertension I10 Hypertension type: essential hypertension Hyperlipidemia E78.5 Hyperlipidemia type: unspecified Chronic obstructive pulmonary disease J44.9 COPD type: unspecified COPD (1) Hyperlipidemia Hyperlipidemia type: unspecified Qualified Code(s): E78.5 - Hyperlipidemia, unspecified (2) Respiratory failure with hypoxia and hypercapnia Chronicity: acute Qualified Code(s): J96.01 - Acute respiratory failure with hypoxia; J96.02 - Acute respiratory failure with hypercapnia (3) Chronic obstructive pulmonary disease COPD type: unspecified COPD Qualified Code(s): J44.9 - Chronic obstructive pulmonary disease, unspecified (4) Hypertension Hypertension type: essential hypertension Qualified Code(s): I10 - Essential (primary) hypertension (5) Pneumonia Laterality: left Lung location: upper lobe of lung Pneumonia type: due to unspecified organism Qualified Code(s): J18.9 - Pneumonia, unspecified organism
[2021-12-13] MEDS: MAGNESIUM OXIDE 400 MG TAB PO SCH (19:56)
[2021-12-13] MEDS: fentaNYL citrate 2,500 MCG/250 ML BAG IV SCH (23:41)
[2021-12-14 00:02] LABS: Hematocrit (blood only) 28.1 % (37-47); Hemoglobin 8.4 g/dL (12.0-16.0)
[2021-12-14] MEDS: INSULIN ASPART PER UNIT SC SCH ×6 (00:41→20:46)
[2021-12-14] MEDS: TUBE FEEDING WATER FLUSH OG SCH ×3 (00:42→08:37)
[2021-12-14] MEDS: dexMEDEtomidine 200 MCG/50 ML BAG IV SCH ×8 (00:52→23:58)
[2021-12-14] MEDS: CEFEPIME 2,000 MG in SYRINGE 0 ML IV SCH (02:33)
[2021-12-14 04:17] LABS: iSTAT Allen Test Pass; iSTAT Art Bld Gas pCO2 Correct 44 mmHg (35-46); iSTAT Art Bld Gas pH Corrected 7.386 (7.35-7.45); iSTAT Arterial Blood Gas HCO3 26 meg/L (19-24); iSTAT Arterial Blood Gas pCO2 44 mmHg (35-46); iSTAT Arterial Blood Gas pH 7.38 (7.35-7.45); iSTAT Arterial Blood Gas pO2 89 mmHg (80-95); iSTAT Arterial Blood Gas pO2 C 88; iSTAT Carbon Dioxide 28 mmol/L (24-31); iSTAT FiO2 36 %; iSTAT Hematocrit 28 % (37-47); iSTAT Hemoglobin 9.5 g/dl (12.0-16.0); iSTAT Potassium 4.8 mmol/L (3.3-5.0); iSTAT Site R Radial; iSTAT Sodium 133 mmol/L (135-144)
[2021-12-14] MEDS: HEPARIN SOD 5,000 UNIT/0.5 ML VIAL SQ SCH ×3 (05:25→21:20)
[2021-12-14 05:26] LABS: Basophils # (auto) 0.01 K/uL (0-0.2); Basophils % (auto) 0.1 %; Eosinophils # (auto) 0.01 K/uL (0-0.5); Eosinophils % (auto) 0.1 %; Hemoglobin 8.3 g/dL (12.0-16.0); Immature Granulocytes # (auto) 0.01 K/uL (0.00-0.02); Immature Granulocytes % (auto) 0.1 %; Lymphocytes # (auto) 0.28 K/uL (1.2-3.4); Lymphocytes % (auto) 4.1 %; Mean Corpuscular Hemoglobin 28.8 pg (25-34); Mean Corpuscular Hgb Conc 29.6 g/dL (32-36); Mean Corpuscular Volume 97.2 fL (80-100); Monocytes # (auto) 0.62 K/uL (0.11-0.59); Neutrophils # (auto) 5.98 K/uL (1.4-6.5); Neutrophils % (auto) 86.6 %; Nucleated RBC # (auto) 0.06 K/uL (0-0); Nucleated RBC % (auto) 0.9 %; Platelet Count 313 K/uL (130-400); RDW Coefficient of Variation 17.7 % (11.5-14.5); RDW Standard Deviation 62.7 fL (36.4-46.3); Red Blood Count 2.88 M/uL (4.2-5.4); White Blood Count 6.91 K/uL (4.8-10.8)
[2021-12-14 05:58] LABS: BUN Creatinine Ratio 48.5 (10-20); Calcium 8.3 mg/dl (8.5-10.1); Creatinine Clr Calc Pharmacy 93.2 ml/min; Est GFR (African American) 102.7 ml/min; Est GFR (Non-African American) 88.6 ml/min; Magnesium 2.3 mg/dl (1.7-2.4); Phosphorus 3.4 mg/dl (2.5-4.9); Potassium 4.6 mmol/L (3.5-5.1)
[2021-12-14 06:09] LABS: INR 1.1 (0.9-1.1); Partial Thromboplastin Ratio 1.1; Partial Thromboplastin Time 30.7 Seconds (21.0-31.0); Prothrombin Time 11.4 Seconds (9.0-12.0)
[2021-12-14 06:56] LABS: Estimated Average Glucose 80 mg/dl; Hemoglobin A1C 4.4 % (4.5-5.6)
--- NOTE | 2021-12-14 07:36 | Hospitalist Progress Note ---
Date of Service December 14, 2021 Assessment & Plan (1) Respiratory failure with hypoxia and hypercapnia: Plan: Traci is a 71-year-old female who presented in septic shock with oxygen levels in the 50s and he was found to have a left upper lobe density consistent with pneumonia on CT. Past medical history of type 2 diabetes, chronic anemia requiring transfusion and iron infusions , hypertension, hyperlipidemia, previous subdural hematoma Acute hypoxic respiratory failure with sepsis 2/2 left upper lobe pneumonia, presented with sepsis criteria ICU on cefepime/Vanco with critical illness converted from Levaquin for QT Intubated, ventilated -, extubated 12/14/21 now oxymask Required pressors, norepi gtt, precedex Fenantyl drip initially for sedation Troponin elevation Troponin high-sensitivity 146.5, uptrending to 325.7. Peaked and downtrending EKG: T wave inversion in inferior leads,? ST segment changes and right bundle branch block with QT prolongation Prior EKG 2020: Right bundle branch block, NSR No preceding history of chest pain/CAD, suspect severe demand in the setting of hypoxia and pneumonia above TTE: LV SF normal, mild concentric LVH, grade 1 diastolic dysfunction, RV dilation, elevated RVSP EYAD, no history of CKD. 2/2 sepsis - Normalized 12/13 History of chronic anemia Follows [facility], Transfused 1 unit packed blood cells for hemoglobin 7.0 with sepsis and troponin elevation -remains in the 8 gm range History of COPD. 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 nightly held DVT prophylaxis: Heparin subcu Disposition: ICU CODE STATUS: DNR/DNI, discussed with daughter at bedside (2) Pneumonia: (3) Septic shock: (4) Hyponatremia: (5) SIRS (systemic inflammatory response syndrome): (6) Uncontrolled type 2 diabetes mellitus with hyperosmolarity, without long- term current use of insulin: (7) Left shoulder pain: (8) Hypertension: (9) Hyperlipidemia: (10) Chronic obstructive pulmonary disease: Admission and Anticipated Discharge Date Admission Date: December 12, 2021 Subjective This pt was extubated in the am 12/14/21, is sedate but follows commands, was re placed on NIPPV due to complaints of air hunger and tachycardia/tachypnea, otherwise is stable in the afternoon having been downgraded to oxymask Review of Systems Review of Systems: Moderate respiratory distress and fatigue no headache, no visual changes no speech or swallowing issues no chest pain, pressure or palpitations shortness of breath, no cough or wheezes no abdominal pain, nausea or vomiting, diarrhea or constipation no dysuria, hematuria or frequency no focal joint pain or swelling no back pain, CVA tenderness or radicular pain no bruising, bleeding or rashes no focal signs of weakness or numbness or altered sensation Physical Exam Physical Exam: The patient chronically ill and moderately fatigued Vital signs as documented. Head exam is normocephalic atraumatic Neck is without stridor or, thyromegaly Lungs are coarse but good air movement bilaterally Cardiac exam, Rhythm is regular.. No murmurs, rubs or gallops. Abdominal exam reveals normal bowel sounds, soft non tender, no masses Extremities are 1+edematous and both pedal pulses are present Neurologic exam is alert and orientedx1 no focal loss of strength or sensation Skin is without bruises or rashes Results & Data Results & Data ([facility]) Vital Signs (Past 12 Hours) Vital Signs Temp Pulse Resp BP Pulse Ox 12/14/21 04:10 16 12/14/21 03:45 98.4 F 59 L 16 132/57 L 99 12/14/21 03:30 98.4 F 60 17 129/59 L 98 12/14/21 03:24 50 L 18 97 12/14/21 03:15 98.4 F 59 L 18 129/56 L 99 12/14/21 03:01 98.2 F 63 17 117/64 99 12/14/21 03:00 98.2 F 52 L 16 99 12/14/21 02:45 98.2 F 45 L 19 127/50 L 98 12/14/21 02:30 98.2 F 65 17 122/58 L 99 12/14/21 02:16 98.2 F 47 L 16 140/53 L 99 12/14/21 02:00 98.2 F 65 17 146/66 H 99 12/14/21 01:45 98.2 F 45 L 20 130/64 99 12/14/21 01:30 98.2 F 55 L 17 128/61 98 12/14/21 01:15 98.2 F 47 L 17 118/51 L 96 12/14/21 01:00 98.2 F 65 17 127/61 97 12/14/21 00:45 98.2 F 65 16 138/53 L 98 12/14/21 00:30 98.2 F 57 L 17 152/70 H 97 12/14/21 00:15 98.2 F 63 17 140/63 98 12/14/21 00:00 98.2 F 54 L 17 172/74 H 99 12/13/21 23:45 98.1 F 86 37 H 194/86 H 100 12/13/21 23:31 98.2 F 70 17 100 12/13/21 23:25 98.2 F 95 H 31 H 175/91 H 100 12/13/21 23:16 98.1 F 48 L 16 132/45 L 98 12/13/21 23:07 72 19 95 12/13/21 23:01 98.1 F 65 16 132/56 L 97 12/13/21 23:00 98.1 F 50 L 17 97 12/13/21 22:45 97.9 F 52 L 18 165/87 H 97 12/13/21 22:30 98.1 F 48 L 17 165/57 H 99 12/13/21 22:15 98.1 F 48 L 17 162/65 H 99 12/13/21 22:04 98.1 F 57 L 14 188/84 H 100 12/13/21 22:02 98.1 F 75 18 221/78 H 100 12/13/21 22:00 98.1 F 96 H 42 H 87 L 12/13/21 21:45 98.1 F 67 18 116/58 L 98 12/13/21 21:32 98.1 F 51 L 18 83/45 L 97 12/13/21 21:30 98.1 F 47 L 20 79/33 L 96 12/13/21 21:15 98.1 F 47 L 18 89/38 L 96 12/13/21 21:00 98.1 F 62 17 110/48 L 96 12/13/21 20:45 98.1 F 53 L 19 108/57 L 97 06/14/22 20:30 98.2 F 49 L 18 104/52 L 97 12/13/21 20:15 98.2 F 66 17 112/54 L 97 12/13/21 20:00 98.2 F 58 L 18 106/45 L 97 12/13/21 19:45 98.2 F 63 16 123/54 L 96 12/13/21 19:35 65 18 95 12/13/21 19:30 98.4 F 64 16 130/53 L 94 PG Care Time/CCT Total # of Minutes Spent Total Time Spent with Patient: Total time spent is greater than 50% in coordination of care (as documented) at patient's floor/unit and/or counseling patient: Coding Level of Care Code 71907 Subseq Hosp Care Lvl 3 Diagnoses Respiratory failure with hypoxia and hypercapnia J96.01; J96.02 Chronicity: acute Pneumonia J18.9 Laterality: left Lung location: upper lobe of lung Pneumonia type: due to unspecified organism Septic shock A41.9; R65.21 Hyponatremia E87.1 SIRS (systemic inflammatory response syndrome) R65.10 Uncontrolled type 2 diabetes mellitus with hyperosmolarity, without long-term current use of insulin E11.00 Left shoulder pain M25.512 Hypertension I10 Hypertension type: essential hypertension Hyperlipidemia E78.5 Hyperlipidemia type: unspecified Chronic obstructive pulmonary disease J44.9 COPD type: unspecified COPD (1) Hyperlipidemia Hyperlipidemia type: unspecified Qualified Code(s): E78.5 - Hyperlipidemia, unspecified (2) Respiratory failure with hypoxia and hypercapnia Chronicity: acute Qualified Code(s): J96.01 - Acute respiratory failure with hypoxia; J96.02 - Acute respiratory failure with hypercapnia (3) Chronic obstructive pulmonary disease COPD type: unspecified COPD Qualified Code(s): J44.9 - Chronic obstructive pu lmonary disease, unspecified (4) Hypertension Hypertension type: essential hypertension Qualified Code(s): I10 - Essential (primary) hypertension (5) Pneumonia Laterality: left Lung location: upper lobe of lung Pneumonia type: due to unspecified organism Qualified Code(s): J18.9 - Pneumonia, unspecified organism
--- NOTE | 2021-12-14 08:31 | XRay Report ---
XR chest 1V portable CLINICAL HISTORY: Dyspnea TECHNIQUE: Single frontal radiograph of the chest was obtained. Comparison: Comparison is made to chest radiograph 12/13/2021 FINDINGS: Lines and tubes are stable. The cardiomediastinal silhouette is obscured. Opacification of the left h emithorax is seen. Moderate pulmonary edema is seen. No evidence of pleural effusion or pneumothorax. IMPRESSION: Opacification of the left hemithorax is unchanged compatible with atelectasis, pneumonia, and/or left pleural effusion. Moderate pulmonary edema is seen. ACT 112: Negative or not required by law. Electronically signed by: Jerry White M.D. 12/14/2021 8:30 AM
[2021-12-14] MEDS: MULTI VIT W/MINERALS LIQUID 15 ML UDP PO SCH (08:37)
[2021-12-14] MEDS: INSULIN GLARGINE SOLOSTAR 100 UNITS/ML 3 ML PEN SC SCH (09:18)
--- NOTE | 2021-12-14 09:18 | Critical Care Progress Note ---
Date of Service December 14, 2021 Assessment & Plan (1) Respiratory failure with hypoxia and hypercapnia: Plan: Reason Critically Ill: 71-year-old female with history of symptomatic anemia who presents with hypotension and sepsis-like syndrome with presumptive left upper lobe pneumonia PLAN: Neuro: Acute encephalopathy: improved Resp: Acute on chronic respiratory failure with hypoxia and hypercapnia -Chronic O2 use at home - Extubated this am. - subjective shortness of breath after extubation. Improved with Bipap CV: Hypotension, resolved Elevated troponin: downtrending -echocardiogram reviewed, evidence consistent with cor pulmonale/p ulmonary hypertension -Suspect type II ischemia Prolonged QTC: Suspect artifact secondary to a right bundle branch block Fluids/Renal: Acute kidney injury Baseline approximately 0.5: resolved -mild diuresis today: 40 mg lasix once Hypomagnesemia: resolved ID: Left upper lobe pneumonia -Cefepime, vancomycin -Scnt normal priscilla on bronch culture. -de-escalate to unasyn with transition to augmentin when able to take PO GI/Nutrition: Speech evaluation given > 24 hours of intubation. Guaiac stool x1 when produced Heme: Anemia: Followed by oncology -S/P 1 unit packed red blood cells DVT prophylaxis: Heparin subcu 7,500 units every 8 hours Endocrine: ICU hyperglycemia protocol - Sliding scale Vascular access: Left internal jugular CVC placed 12/12 Code Status: DNR in event of cardiac arrest Disposition: ICU (2) Pneumonia: (3) Septic shock: (4) Cor pulmonale: Admission and Anticipated Discharge Date Admission Date: December 12, 2021 Supervising Physician Co-Signing Physician Notes I have personally spent 35 minutes of critical care time in the direct management of this patient. This is a life/limb threatening event. This includes time spent evaluating patient, direct bedside care, chart review, placing orders, interpretation of diagnostic studies, discussion with consultants, patient, and/or family members regarding treatment decisions, as well as other required patient management activities. This time is exclusive of all separately billable procedures, and teaching time and separate from and in addition to any other critical care service time. Subjective no overnight events. Adequate SBT parameters, trial of extubation this moring Physical Exam Physical Exam: General: easily arousable, follows simple commands. nontoxic. Skin: Warm, dry, Head: Atraumatic Ears, nose, mouth and throat: airway obscured by endotracheal tube Cardiovascular: Normal capillary refill Respiratory: Ventilator settings reviewed Gastrointestinal: Non distended Musculoskeletal: Congenitally short left upper extremity. 1+ pitting edema bilateral lower extremities Results & Data Results & Data ([facility]) Vital Signs (Past 12 Hours) Vital Signs Temp Pulse Resp BP Pulse Ox 12/14/21 07:05 64 12 96 12/14/21 04:10 16 12/14/21 03:45 36.9 C 59 L 16 132/57 L 99 12/14/21 03:30 36.9 C 60 17 129/59 L 98 12/14/21 03:24 50 L 18 97 12/14/21 03:15 36.9 C 59 L 18 129/56 L 99 12/14/21 03:01 36.8 C 63 17 117/64 99 12/14/21 03:00 36.8 C 52 L 16 99 12/14/21 02:45 36.8 C 45 L 19 127/50 L 98 12/14/21 02:30 36.8 C 65 17 122/58 L 99 12/14/21 02:16 36.8 C 47 L 16 140/53 L 99 12/14/21 02:00 36.8 C 65 17 146/66 H 99 12/14/21 01:45 36.8 C 45 L 20 130/64 99 12/14/21 01:30 36.8 C 55 L 17 128/61 98 12/14/21 01:15 36.8 C 47 L 17 118/51 L 96 12/14/21 01:00 36.8 C 65 17 127/61 97 12/14/21 00:45 36.8 C 65 16 138/53 L 98 12/14/21 00:30 36.8 C 57 L 17 152/70 H 97 12/14/21 00:15 36.8 C 63 17 140/63 98 12/14/21 00:00 36.8 C 54 L 17 172/74 H 99 12/13/21 23:45 36.7 C 86 37 H 194/86 H 100 12/13/21 23:31 36.8 C 70 17 100 12/13/21 23:25 36.8 C 95 H 31 H 175/91 H 100 12/13/21 23:16 36.7 C 48 L 16 132/45 L 98 12/13/21 23:07 72 19 95 12/13/21 23:01 36.7 C 65 16 132/56 L 97 12/13/21 23:00 36.7 C 50 L 17 97 12/13/21 22:45 36.6 C 52 L 18 165/87 H 97 12/13/21 22:30 36.7 C 48 L 17 165/57 H 99 12/13/21 22:15 36.7 C 48 L 17 162/65 H 99 12/13/21 22:04 36.7 C 57 L 14 188/84 H 100 12/13/21 22:02 36.7 C 75 18 221/78 H 100 12/13/21 22:00 36.7 C 96 H 42 H 87 L 12/13/21 21:45 36.7 C 67 18 116/58 L 98 12/13/21 21:32 36.7 C 51 L 18 83/45 L 97 12/13/21 21:30 36.7 C 47 L 20 79/33 L 96 12/13/21 21:15 36.7 C 47 L 18 89/38 L 96 Critical Care Results & Data Vital Signs (Past 12 Hours) Vital Signs Temp Pulse Resp BP Pulse Ox 12/14/21 07:05 64 12 96 12/14/21 04:10 16 12/14/21 03:45 36.9 C 59 L 16 132/57 L 99 12/14/21 03:30 36.9 C 60 17 129/59 L 98 12/14/21 03:24 50 L 18 97 12/14/21 03:15 36.9 C 59 L 18 129/56 L 99 12/14/21 03:01 36.8 C 63 17 117/64 99 12/14/21 03:00 36.8 C 52 L 16 99 12/14/21 02:45 36.8 C 45 L 19 127/50 L 98 12/14/21 02:30 36.8 C 65 17 122/58 L 99 12/14/21 02:16 36.8 C 47 L 16 140/53 L 99 12/14/21 02:00 36.8 C 65 17 146/66 H 99 12/14/21 01:45 36.8 C 45 L 20 130/64 99 12/14/21 01:30 36.8 C 55 L 17 128/61 98 12/14/21 01:15 36.8 C 47 L 17 118/51 L 96 12/14/21 01:00 36.8 C 65 17 127/61 97 12/14/21 00:45 36.8 C 65 16 138/53 L 98 12/14/21 00:30 36.8 C 57 L 17 152/70 H 97 12/14/21 00:15 36.8 C 63 17 140/63 98 12/14/21 00:00 36.8 C 54 L 17 172/74 H 99 12/13/21 23:45 36.7 C 86 37 H 194/86 H 100 12/13/21 23:31 36.8 C 70 17 100 12/13/21 23:25 36.8 C 95 H 31 H 175/91 H 100 12/13/21 23:16 36.7 C 48 L 16 132/45 L 98 12/13/21 23:07 72 19 95 12/13/21 23:01 36.7 C 65 16 132/56 L 97 12/13/21 23:00 36.7 C 50 L 17 97 12/13/21 22:45 36.6 C 52 L 18 165/87 H 97 12/13/21 22:30 36.7 C 48 L 17 165/57 H 99 12/13/21 22:15 36.7 C 48 L 17 162/65 H 99 12/13/21 22:04 36.7 C 57 L 14 188/84 H 100 12/13/21 22:02 36.7 C 75 18 221/78 H 100 12/13/21 22:00 36.7 C 96 H 42 H 87 L 12/13/21 21:45 36.7 C 67 18 116/58 L 98 12/13/21 21:32 36.7 C 51 L 18 83/45 L 97 12/13/21 21:30 36.7 C 47 L 20 79/33 L 96 12/13/21 21:15 36.7 C 47 L 18 89/38 L 96 Lab & Micro Results (Past 24 Hours) RBC 2.88 M/uL (4.2-5.4) L 12/14/21 WBC 6.91 K/uL (4.8-10.8) 12/14/21 Hgb 8.3 g/dL (12.0-16.0) L 12/14/21 Hct 28.0 % (37-47) L 12/14/21 MCV 97.2 fL (80-100) 12/14/21 MCH 28.8 pg (25-34) 12/14/21 MCHC 29.6 g/dL (32-36) L 12/14/21 RDW Standard Deviation 62.7 fL (36.4-46.3) H 12/14/21 RDW Coefficient of Variation 17.7 % (11.5-14.5) H 12/14/21 Plt Count 313 K/uL (130-400) 12/14/21 MPV 9.0 fL (7.4-10.4) 12/14/21 Nucleated Red Blood Cells % (auto) 0.9 % 12/14/21 Nucleated RBC Absolute Count (auto) 0.06 K/uL (0-0) H 12/14/21 Neutrophils (%) (Auto) 86.6 % 12/14/21 Lymphocytes (%) (Auto) 4.1 % 12/14/21 Monocytes # (Auto) 0.62 K/uL (0.11-0.59) H 12/14/21 Eosinophils # (Auto) 0.01 K/uL (0-0.5) 12/14/21 Immature Granulocyte % (Auto) 0.1 % 12/14/21 Neutrophils # (Auto) 5.98 K/uL (1.4-6.5) 12/14/21 Lymphocytes # (Auto) 0.28 K/uL (1.2-3.4) L 12/14/21 Monocytes # (Auto) 0.62 K/uL (0.11-0.59) H 12/14/21 Eosinophils # (Auto) 0.01 K/uL (0-0.5) 12/14/21 Basophils # (Auto) 0.01 K/uL (0-0.2) 12/14/21 Immature Granulocyte # (Auto) 0.01 K/uL (0.00-0.02) 12/14/21 Na 134 mmol/L (136-145) L 12/14/21 K 4.6 mmol/L (3.5-5.1) 12/14/21 Cl 100 mmol/L (98-107) 12/14/21 CO2 30 mmol/L (21-32) 12/14/21 Anion Gap 4 (3-11) 12/14/21 BUN 33 mg/dl (6-23) H 12/14/21 Creatinine 0.68 mg/dl (0.6-1.2) 12/14/21 Estimated GFR ( Amer) 102.7 ml/min 12/14/21 Estimated GFR (Non-Af Amer) 88.6 ml/min 12/14/21 BUN/Creatinine Ratio 48.5 (10-20) H 12/14/21 Glu 193 mg/dl (70-99(Fasting)) H 12/14/21 Ca 8.3 mg/dl (8.5-10.1) L 12/14/21 Phosphorus Level 3.4 mg/dl (2.5-4.9) 12/14/21 Mg 2.3 mg/dl (1.7-2.4) 12/14/21 04:53 12/14/21 Calcium Level 8.3 mg/dl (8.5-10.1) L 12/14/21 04:53 12/14/21 Prothromb Time International Ratio 1.1 (0.9-1.1) 12/14/21 04:53 12/14/21 Zach Test Pass 12/14/21 04:03 12/14/21 Microbiology 12/12/21 06:04 Aerobic Blood Culture - Preliminary Blood No growth in Aerobic bottle after 48 hours. Anaerobic Blood Culture - Final 12/12/21 06:04 Aerobic Blood Culture - Preliminary Blood No growth in Aerobic bottle after 48 hours. Anaerobic Blood Culture - Preliminary No growth in Anaerobic bottle after 48 hours. 12/12/21 06:10 Urine Culture - Preliminary Urine,Clean Catch No growth - Less than 1,000 colonies/mL, Final report to follow. 12/12/21 13:00 Gram Stain - Final Bronch Wash,Left Lower Lobe Bronchial Culture - Preliminary Scant normal priscilla present; Final report to follow. 12/12/21 13:00 Acid Fast Bacilli Smear - Final Bronch Wash,Left Lower Lobe Diagnostic Findings (Past 24 Hours) Chest X-Ray 12/14/21 07:00 XR chest 1V portable CLINICAL HISTORY: Dyspnea TECHNIQUE: Single frontal radiograph of the chest was obtained. Comparison: Comparison is made to chest radiograph 12/13/2021 FINDINGS: Lines and tubes are stable. The cardiomediastinal silhouette is obscured. Opacification of the left hemithorax is seen. Moderate pulmonary edema is seen. No evidence of pleural effusion or pneumothorax. IMPRESSION: Opacification of the left hemithorax is unchanged compatible with atelectasis, pneumonia, and/or left pleural effusion. Moderate pulmonary edema is seen. ACT 112: Negative or not required by law. Electronically signed by: Jerry White M.D. 12/14/2021 8:30 AM I & O Totals 24 Hours 12/13/21 12/14/21 12/15/21 06:59 06:59 06:59 Intake Total 4120.000 / 4120.000 977.902 / 977.902 129.000 / 129.000 Output Total 3525 / 3525 1950 / 1950 Balance 595.000 / 595.000 -972.098 / -972.098 129.000 / 129.000 Cumulative 12/12/21 05:08 thru 12/14/21 08:37 Intake Total 7226.902 Output Total 5475 Balance 1751.902 RT Ventilator Mngmt (Last Documented) Ventilator Ordered Settings Ventilator Support Mode CPAP 12/14/21 07:05 Respiratory Rate 12 12/14/21 07:05 Ventilator Tidal Volume 350 12/14/21 04:10 Setting Minute Ventilation 4.9 12/14/21 07:05 Ventilator Positive Pressure 10 12/14/21 07:05 Support Setting Positive End Expiratory 8 12/14/21 07:05 Pressure Fraction of Inspired Oxygen 35 12/14/21 07:05 Machine Comment FiO2 titrated to 45% 12/14/21 04:10 Ventilator - PT Measurements Respiratory Rate 12 Exhaled Tidal Volume 450 Minute Ventilation 4.9 Peak Inspiratory Airway 20 Pressure Plateau Pressure 18 Respiratory Cycle Inspiratory: 1:4 Expiratory Ratio Inspiratory Phase Time 0.7 End-Tidal CO2 36 Static Lung Compliance 35.90 Dynamic Lung Compliance 37.50 Normal Static Lung Compliance 48.00 Patient Measurements Comment Patient is agitated at this time. Coding Level of Care Code Critical Care 1st 30-74 mins Diagnoses Respiratory failure with hypoxia and hypercapnia J96.01; J96.02 Chronicity: acute Pneumonia J18.9 Laterality: left Lung location: upper lobe of lung Pneumonia type: due to unspecified organism Septic shock A41.9; R65.21 Cor pulmonale I27.81 (1) Respiratory failure with hypoxia and hypercapnia Chronicity: acute Qualified Code(s): J96.01 - Acute respiratory failure with hypoxia; J96.02 - Acute respiratory failure with hypercapnia (2) Pneumonia Laterality: left Lung location: upper lobe of lung Pneumonia type: due to unspecified organism Qualified Code(s): J18.9 - Pneumonia, unspecified organism
[2021-12-14] MEDS: FAMOTIDINE 20 MG in SYRINGE 3 ML IV SCH (09:20)
[2021-12-14] MEDS ORDERED: FUROSEMIDE 40 MG/4 ML VIAL IV ONE (09:45)
[2021-12-14] MEDS: AMPICILLIN/SULBACTAM SOD 1,500 MG in 0.9 % SODIUM CHLORIDE 100 ML IV SCH ×3 (10:30→21:19)
[2021-12-14] MEDS: METOPROLOL TARTRATE 1 MG/ML VIAL IV SCH (18:28)
[2021-12-14] MEDS: MAGNESIUM OXIDE 400 MG TAB PO SCH (20:47)
[2021-12-15] MEDS: INSULIN ASPART PER UNIT SC SCH ×6 (00:07→23:58)
[2021-12-15] MEDS: METOPROLOL TARTRATE 1 MG/ML VIAL IV SCH ×5 (00:10→23:49)
[2021-12-15] MEDS: dexMEDEtomidine 200 MCG/50 ML BAG IV SCH ×3 (02:59→08:03)
[2021-12-15] MEDS: AMPICILLIN/SULBACTAM SOD 1,500 MG in 0.9 % SODIUM CHLORIDE 100 ML IV SCH ×4 (04:13→21:17)
[2021-12-15 05:42] LABS: Basophils # (auto) 0.01 K/uL (0-0.2); Basophils % (auto) 0.1 %; Hematocrit (blood only) 30.7 % (37-47); Hemoglobin 9.1 g/dL (12.0-16.0); Immature Granulocytes # (auto) 0.04 K/uL (0.00-0.02); Immature Granulocytes % (auto) 0.4 %; Lymphocytes # (auto) 0.93 K/uL (1.2-3.4); Lymphocytes % (auto) 9.7 %; Mean Corpuscular Hemoglobin 28.3 pg (25-34); Mean Corpuscular Hgb Conc 29.6 g/dL (32-36); Mean Corpuscular Volume 95.6 fL (80-100); Mean Platelet Volume 9.6 fL (7.4-10.4); Monocytes # (auto) 1.29 K/uL (0.11-0.59); Monocytes % (auto) 13.5 %; Neutrophils # (auto) 7.32 K/uL (1.4-6.5); Neutrophils % (auto) 76.3 %; Nucleated RBC # (auto) 0.08 K/uL (0-0); Nucleated RBC % (auto) 0.9 %; Platelet Count 350 K/uL (130-400); RDW Coefficient of Variation 17.3 % (11.5-14.5); RDW Standard Deviation 61.2 fL (36.4-46.3); Red Blood Count 3.21 M/uL (4.2-5.4); White Blood Count 9.59 K/uL (4.8-10.8)
[2021-12-15 05:47] LABS: INR 1.1 (0.9-1.1); Partial Thromboplastin Time 26.8 Seconds (21.0-31.0); Prothrombin Time 12.1 Seconds (9.0-12.0)
[2021-12-15] MEDS: HEPARIN SOD 5,000 UNIT/0.5 ML VIAL SQ SCH ×3 (06:02→21:17)
[2021-12-15 06:24] LABS: Anion Gap 8 (3-11); BUN Creatinine Ratio 58.5 (10-20); Blood Urea Nitrogen 48 mg/dl (6-23); Calcium 8.8 mg/dl (8.5-10.1); Carbon Dioxide 26 mmol/L (21-32); Chloride 102 mmol/L (98-107); Creatinine Clr Calc Pharmacy 75.9 ml/min; Est GFR (Non-African American) 72.5 ml/min; Glucose 155 mg/dl (70-99(Fasting)); Magnesium 2.1 mg/dl (1.7-2.4); Phosphorus 4.3 mg/dl (2.5-4.9); Sodium 136 mmol/L (136-145)
--- NOTE | 2021-12-15 07:41 | XRay Report ---
XR chest 1V portable CLINICAL HISTORY: Follow-up status post extubation. Left lung opacity.. COMPARISON STUDY: 12/14/2021 TECHNIQUE: 1 view of the chest FINDINGS: Single frontal view of the chest demonstrates heart to again be enlarged. There is interval removal o f the patient's tubes and catheters. Marked opacification of the left hemithorax is again seen. Alveo lar opacity was seen on previous CT with only small left pleural effusion. However, increased fluid c annot be excluded. There is also evidence for small right pleural effusion and right basilar atelecta sis. Right upper lung is clear. There is evidence for mild central vascular congestion. There is no a cute osseous pathology. IMPRESSION: 1. No significant interval change in the previous study with marked opacification left hemithorax aga in seen. 2. There is evidence for increasing right pleural effusion and right basilar atelectasis. 3. Mild central vascular congestion. 4. Status post removal of tubes and catheters. ACT 112: Negative or not required by law. Electronically signed by: Gumaro Murdock M.D. 12/15/2021 7:39 AM
[2021-12-15] MEDS: MULTI VIT W/MINERALS LIQUID 15 ML UDP PO SCH (08:09)
[2021-12-15] MEDS: INSULIN GLARGINE SOLOSTAR 100 UNITS/ML 3 ML PEN SC SCH (09:57)
[2021-12-15] MEDS ORDERED: FUROSEMIDE 40 MG/4 ML VIAL IV ONE (10:00)
[2021-12-15] MEDS: FUROSEMIDE 40 MG/4 ML VIAL IV SCH ×2 (10:53→20:02)
--- NOTE | 2021-12-15 11:19 | Pharmacy Report ---
Pharmacy Glycemic Short Note 2 - Date of Service December 15, 2021 - Glycemic Short BSG Results (Last 24 hours): 12/14/21 12/14/21 12/14/21 12:21 17:17 20:40 Glucose POC Glucose 168 H 166 H 170 H 12/15/21 12/15/21 12/15/21 00:01 04:01 05:00 Glucose 155 H POC Glucose 162 H 159 H 12/15/21 08:07 Glucose POC Glucose 148 H OUTPATIENT ANTIDIABETIC REGIMEN: * Lantus 35 units SQ AM * Metformin 850 PO TIDM (previous notes state 1700 mg AM + 850 mg PM) * Januvia 100 mg PO HS * HbA1c 4.4% ASSESSMENT: 12/15: * Patient's BSGs yesterday were [phone] mg/dL receiving 46 units of insulin, 20 of which were basal. * Fasting BSG continued to improve today at 148. Will continue with current lantus dose and change novolog order from q4 to q6. * Patient remains NPO. 12/13 * 71 yo F admitted on 12/12/21 secondary to acute hypoxic respiratory failure requiring intubation and mechanical ventilation. Pharmacy was consulted today to assist with inpatient glycemic management. Most recent HbA1c in August 2021 was 5.0%. Repeat HbA1c is pending. * Stressors include: mechanical ventilation, IV solumedrol 100 mg BID, Cefepime for pneumonia, and addition of trickle feeds today. Pressors were titrated off today. * Will start Novolog based on weight and stress of 3 which is similar to previous admission data. Will give a one time Lantus dose today. Monitor steroid dose and tube feed rate in the AM for further Lantus dosing. PLAN FOR INPATIENT GLYCEMIC CONTROL: * Hold outpatient oral diabetes medications * Basal insulin * Lantus 20 units SQ qam * Bolus insulin * NovoLog per scale ACHS or Q6hrs while NPO * Goal Range: Low 110 mg/dL - High 140 mg/dL * Correction Factor: 12 mg/dL/unit * Nutritional / Prandial insulin per carb ratio of 1 unit per 4 grams CHO consumed
[2021-12-15] MEDS: ALBUTEROL 0.5% NEB SOLN 2.5 MG/0.5 ML VIAL NEB SCH ×2 (13:13→19:36)
--- NOTE | 2021-12-15 14:55 | Critical Care Progress Note ---
Date of Service December 15, 2021 Assessment & Plan (1) Respiratory failure with hypoxia and hypercapnia: Plan: Reason Critically Ill: 71-year-old female with history of symptomatic anemia who presents with hypotension and sepsis-like syndrome with presumptive left upper lobe pneumonia PLAN: Neuro: Acute encephalopathy: resolved Resp: Acute on chronic respiratory failure with hypoxia and hypercapnia -Chronic O2 use at home - Extubated 12/14 - intermittent episodes of shortness of breath after extubation. -Improved with Bipap CV: Hypotension, resolved Elevated troponin: downtrending -echocardiogram reviewed, evidence consistent with cor pulmonale/pulmonary hypertension -Suspect type II ischemia Prolonged QTC: Suspect artifact secondary to a right bundle branch block Fluids/Renal: Acute kidney injury Baseline approximately 0.5: resolved -40 mg lasix BID today Hypomagnesemia: resolved ID: Left upper lobe pneumonia -Unasyn total 7 days of ABX treatment -Scnt normal priscilla on bronch culture. -transition to augmentin when able to take PO GI/Nutrition: Speech evaluation given > 24 hours of intubation. Guaiac stool x1 when produced Heme: Anemia: Followed by oncology -S/P 1 unit packed red blood cells DVT prophylaxis: Heparin subcu 7,500 units every 8 hours Endocrine: ICU hyperglycemia protocol - Sliding scale Vascular access: Left internal jugular CVC discontinued Code Status: DNR in event of cardiac arrest Disposition:ICU Discussed with hospitalist service: Patient was questioning continuing aggressive care. Patient may benefit from palliative care discussion with regard to pulmonary status. Will consult palliative care (2) Pneumonia: (3) Septic shock: (4) Cor pulmonale: Admission and Anticipated Discharge Date Admission Date: December 12, 2021 Supervising Physician Co-Signing Physician Notes Patient was discussed on multidisciplinary rounds. Discussed with hospitalist service. I have personally spent [] minutes of critical care time in the direct managemen t of this patient. This is a life/limb threatening event. This includes time spent evaluating patient, direct bedside care, chart review, placing orders, interpretation of diagnostic studies, discussion with consultants, patient, and/or family members regarding treatment decisions, as well as other required patient management activities. This time is exclusive of all separately billable procedures, and teaching time and separate from and in addition to any other critical care service time. Subjective Patient asking if she has cancer, I informed her there is no indication of any cancer Review of Systems Review of Systems: dyspnea at rest, + cough Physical Exam Physical Exam: General: Alert, oriented nontoxic. Skin: Warm, dry, Head: Atraumatic Ears, nose, mouth and throat: bipap mask in place Cardiovascular: Normal capillary refill Respiratory: Ventilator settings reviewed Gastrointestinal: Non distended Musculoskeletal: Congenitally short left upper extremity. 1+ pitting edema bilateral lower extremities Results & Data Results & Data ([facility]) Vital Signs (Past 12 Hours) Vital Signs Temp Pulse Pulse Resp BP Pulse Ox 12/15/21 13:15 60 22 94 12/15/21 12:42 55 L 179/84 H 12/15/21 12:00 37.3 C 67 25 H 179/84 H 90 12/15/21 11:16 87 18 92 12/15/21 11:00 37.4 C 71 29 H 180/84 H 87 L 12/15/21 10:00 37.4 C 79 24 165/87 H 87 L 12/15/21 09:21 37.4 C 72 27 H 154/66 H 92 12/15/21 09:00 60 25 H 95 12/15/21 08:01 54 L 25 H 142/99 H 97 12/15/21 08:00 51 L 20 96 12/15/21 07:25 68 20 96 12/15/21 07:01 67 24 156/92 H 98 12/15/21 07:00 67 22 98 12/15/21 06:03 49 L 109/66 12/15/21 05:00 37.4 C 47 L 22 140/81 98 12/15/21 04:00 37.5 C 72 26 H 165/134 H 96 12/15/21 03:00 37.5 C 72 23 144/103 H 99 Critical Care Results & Data Vital Signs (Past 12 Hours) Vital Signs Temp Pulse Pulse Resp BP Pulse Ox 12/15/21 15:00 60 21 181/92 H 95 12/15/21 14:00 62 22 174/86 H 94 12/15/21 13:15 60 22 94 12/15/21 13:00 55 L 18 186/76 H 94 12/15/21 12:42 55 L 179/84 H 12/15/21 12:00 37.3 C 67 25 H 179/84 H 90 12/15/21 11:16 87 18 92 12/15/21 11:00 37.4 C 71 29 H 180/84 H 87 L 12/15/21 10:00 37.4 C 79 24 165/87 H 87 L 12/15/21 09:21 37.4 C 72 27 H 154/66 H 92 12/15/21 09:00 60 25 H 95 12/15/21 08:01 54 L 25 H 142/99 H 97 12/15/21 08:00 51 L 20 96 12/15/21 07:25 68 20 96 12/15/21 07:01 67 24 156/92 H 98 12/15/21 07:00 67 22 98 12/15/21 06:03 49 L 109/66 12/15/21 05:00 37.4 C 47 L 22 140/81 98 12/15/21 04:00 37.5 C 72 26 H 165/134 H 96 Lab & Micro Results (Past 24 Hours) RBC 3.21 M/uL (4.2-5.4) L 12/15/21 WBC 9.59 K/uL (4.8-10.8) 12/15/21 Hgb 9.1 g/dL (12.0-16.0) L 12/15/21 Hct 30.7 % (37-47) L 12/15/21 MCV 95.6 fL (80-100) 12/15/21 MCH 28.3 pg (25-34) 12/15/21 MCHC 29.6 g/dL (32-36) L 12/15/21 RDW Standard Deviation 61.2 fL (36.4-46.3) H 12/15/21 RDW Coefficient of Variation 17.3 % (11.5-14.5) H 12/15/21 Plt Count 350 K/uL (130-400) 12/15/21 MPV 9.6 fL (7.4-10.4) 12/15/21 Nucleated Red Blood Cells % (auto) 0.9 % 12/15/21 Nucleated RBC Absolute Count (auto) 0.08 K/uL (0-0) H 12/15/21 Neutrophils (%) (Auto) 76.3 % 12/15/21 Lymphocytes (%) (Auto) 9.7 % 12/15/21 Monocytes # (Auto) 1.29 K/uL (0.11-0.59) H 12/15/21 Eosinophils # (Auto) 0.00 K/uL (0-0.5) 12/15/21 Immature Granulocyte % (Auto) 0.4 % 12/15/21 Neutrophils # (Auto) 7.32 K/uL (1.4-6.5) H 12/15/21 Lymphocytes # (Auto) 0.93 K/uL (1.2-3.4) L 12/15/21 Monocytes # (Auto) 1.29 K/uL (0.11-0.59) H 12/15/21 Eosinophils # (Auto) 0.00 K/uL (0-0.5) 12/15/21 Basophils # (Auto) 0.01 K/uL (0-0.2) 12/15/21 Immature Granulocyte # (Auto) 0.04 K/uL (0.00-0.02) H 12/15/21 Na 136 mmol/L (136-145) 12/15/21 K 4.7 mmol/L (3.5-5.1) 12/15/21 Cl 102 mmol/L (98-107) 12/15/21 CO2 26 mmol/L (21-32) 12/15/21 Anion Gap 8 (3-11) 12/15/21 BUN 48 mg/dl (6-23) H 12/15/21 Creatinine 0.82 mg/dl (0.6-1.2) 12/15/21 Estimated GFR ( Amer) 84.0 ml/min 12/15/21 Estimated GFR (Non-Af Amer) 72.5 ml/min 12/15/21 BUN/Creatinine Ratio 58.5 (10-20) H 12/15/21 Glu 155 mg/dl (70-99(Fasting)) H 12/15/21 Ca 8.8 mg/dl (8.5-10.1) 12/15/21 Phosphorus Level 4.3 mg/dl (2.5-4.9) 12/15/21 Mg 2.1 mg/dl (1.7-2.4) 12/15/21 05:00 12/15/21 Calcium Level 8.8 mg/dl (8.5-10.1) 12/15/21 05:00 12/15/21 Prothromb Time International Ratio 1.1 (0.9-1.1) 12/15/21 05:00 12/15/21 Microbiology 12/12/21 13:00 Gram Stain - Final Bronch Wash,Left Lower Lobe Bronchial Culture - Final Scant normal priscilla. Diagnostic Findings (Past 24 Hours) Chest X-Ray 12/15/21 07:00 XR chest 1V portable CLINICAL HISTORY: Follow-up status post extubation. Left lung opacity.. COMPARISON STUDY: 12/14/2021 TECHNIQUE: 1 view of the chest FINDINGS: Single frontal view of the chest demonstrates heart to again be enlarged. There is interval removal of the patient's tubes and catheters. Marked opacification of the left hemithorax is again seen. Alveolar opacity was seen on previous CT with only small left pleural effusion. However, increased fluid cannot be excluded. There is also evidence for small right pleural effusion and right basilar atelectasis. Right upper lung is clear. There is evidence for mild central vascular congestion. There is no acute osseous pathology. IMPRESSION: 1. No significant interval change in the previous study with marked opacification left hemithorax again seen. 2. There is evidence for increasing right pleural effusion and right basilar atelectasis. 3. Mild central vascular congestion. 4. Status post removal of tubes and catheters. ACT 112: Negative or not required by law. Electronically signed by: Gumaro Murdock M.D. 12/15/2021 7:39 AM I & O Totals 24 Hours 12/14/21 12/15/21 12/16/21 06:59 06:59 06:59 Intake Total 977.902 / 977.902 846.706 / 846.706 192.105 / 192.105 Output Total 1950 / 1949 1025 / 1025 1999 Balance -972.098 / -972.098 -178.294 / -178.294 -1807.895 / -1807.895 Cumulative 12/12/21 05:08 thru 12/15/21 15:00 Intake Total 8136.713 Output Total 8500 Balance -363.287 RT Ventilator Mngmt (Last Documented) Ventilator Ordered Settings Ventilator Support Mode CPAP 12/14/21 07:05 Respiratory Rate 21 12/15/21 15:00 Ventilator Tidal Volume 350 12/14/21 04:10 Setting Minute Ventilation 4.9 12/14/21 07:05 Ventilator Positive Pressure 10 12/14/21 07:05 Support Setting Positive End Expiratory 8 12/14/21 07:05 Pressure Fraction of Inspired Oxygen 30 12/15/21 13:15 Machine Comment FiO2 titrated to 45% 12/14/21 04:10 Ventilator - PT Measurements Respiratory Rate 21 Exhaled Tidal Volume 450 Minute Ventilation 4.9 Peak Inspiratory Airway 20 Pressure Plateau Pressure 18 Respiratory Cycle Inspiratory: 1:4 Expiratory Ratio Inspiratory Phase Time 0.7 End-Tidal CO2 39 Static Lung Compliance 35.90 Dynamic Lung Compliance 37.50 Normal Static Lung Compliance 48.00 Patient Measurements Comment Patient is agitated at this time. Coding Level of Care Code Critical Care 1st 30-74 mins Diagnoses Respiratory failure with hypoxia and hypercapnia J96.01; J96.02 Chronicity: acute Pneumonia J18.9 Laterality: left Lung location: upper lobe of lung Pneumonia type: due to unspecified organism Septic shock A41.9; R65.21 Cor pulmonale I27.81 (1) Respiratory failure with hypoxia and hypercapnia Chronicity: acute Qualified Code(s): J96.01 - Acute respiratory failure with hypoxia; J96.02 - Acute respiratory failure with hypercapnia (2) Pneumonia Laterality: left Lung location: upper lobe of lung Pneumonia type: due to unspecified organism Qualified Code(s): J18.9 - Pneumonia, unspecified organism
--- NOTE | 2021-12-15 15:33 | Procedure Note ---
Procedure Note Date of Service December 15, 2021 Note Procedure Date: Noted above Critical Care Medicine Point of Care Bedside Ultrasound Procedure: Limited Bedside Lung Ultrasound Indication: Hypoxic respiratory failure Attending: Ravindra Dang DO Resident/Physician Director Of Primary Care: Not applicable Organs Examined: Lung BLUE point (upper), BLUE point (lower), Phrenic Point (axillary), PLAPS point (posterior) A lines visualized: Present, Hemithorax: Left B lines visualized: Absent, Hemithorax: Left Lung Sliding: Present, Hemithorax: Left Tissue-like Sign: Present, Hemithorax: Left lower lobes Shred Sign: Absent, Hemithorax: Left Quad Sign: Absent, Hemithorax: Left Sinusoid Sign: Absent, Hemithorax: Left Type of effusions: Not applicable, Hemithorax: Not applicable Interpleural distance: Not applicable Impression: Type A profile of the left lung. No evidence of pleural effusion Images obtained are saved for permanent record Coding CPT Codes Pulmonary/Thoracic - Pulmonary and Thoracic: 88676 US, Chest, real time with imaging documentation ([id number]) [facility] Procedure Codes (Charges) Pulmonary/Thoracic Procedure 1: Pulmonary and Thoracic: 21122 US, Chest, real time with imaging documentation
--- NOTE | 2021-12-15 17:39 | Hospitalist Progress Note ---
Date of Service December 15, 2021 Assessment & Plan (1) Respiratory failure with hypoxia and hypercapnia: Plan: Traci is a 71-year-old female who presented in septic shock with oxygen levels in the 50s and he was found to have a left upper lobe density consistent with pneumonia on CT. Past medical history of type 2 diabetes, chronic anemia requiring transfusion and iron infusions , hypertension, hyperlipidemia, previous subdural hematoma Acute hypoxic respiratory failure with sepsis 2/2 left upper lobe pneumonia, presented with sepsis criteria ICU on cefepime/Vanco with critical illness converted from Levaquin for QT \ extubated 12/14/21 now oxymask and bipap Required pressors, norepi gtt, precedex wenaed off both -anxiety worsens tachypnea, continued icu support eval for effusion did not see on u/s Troponin elevation Troponin high-sensitivity 146.5, uptrending to 325.7. Peaked and downtrending EKG: T wave inversion in inferior leads,? ST segment changes and right bundle branch block with QT prolongation Prior EKG 2020: Right bundle branch block, NSR No preceding history of chest pain/CAD, suspect severe demand in the setting of hypoxia and pneumonia above TTE: LV SF normal, mild concentric LVH, grade 1 diastolic dysfunction, RV di lation, elevated RVSP EYAD, no history of CKD. 2/2 sepsis - Normalized 12/13 History of chronic anemia Follows outpatient [facility], Transfused 1 unit packed blood cells for hemoglobin 7.0 with sepsis and troponin elevation -remains in the 9 gm range History of COPD. nocturnal 3L oxygen, prn day use On albuterol as needed [employer]. No maintenance inhalers Echo suggests elevated R heart pressures Type II DM ICU hyperglycemia protocol, on lantus and SSI Hold home metformin, Januvia A1c 4.4 will need to eval home program on discharge Hyperlipidemia Atorvastatin 80 mg on hold History of depression Seroquel 50 mg p.o. nightly held DVT prophylaxis: Heparin subcu Disposition: ICU CODE STATUS: DNR/DNI, discussed with daughter at bedside (2) Pneumonia: (3) Septic shock: (4) Hyponatremia: (5) SIRS (systemic inflammatory response syndrome): (6) Uncontrolled type 2 diabetes mellitus with hyperosmolarity, without long- term current use of insulin: (7) Left shoulder pain: (8) Hypertension: (9) Hyperlipidemia: (10) Chronic obstructive pulmonary disease: Admission and Anticipated Discharge Date Admission Date: December 12, 2021 Subjective Per my evaluation patient asked me if she was dying. I told her that we are moriah praveen cindy Langford began to treat her. She we then discussed end-of-life choices. She requested I call her daughter which I did. Her daughter confirmed that the patient typically is invested in her health and wishes to proceed to continue aggressive treatment and preventative health measures. I asked the daughter to discuss this with the patient when she arrives. Patient has significant chest x-ray changes from her pneumonia and continues to require ventilatory support with BiPAP and nasal flow cannula or oxygen related supplementation by mask Review of Systems Review of Systems: Moderate respiratory distress and fatigue no headache, no visual changes no speech or swallowing issues no chest pain, pressure or palpitations shortness of breath, no cough or wheezes no abdominal pain, nausea or vomiting, diarrhea or constipation no dysuria, hematuria or frequency no focal joint pain or swelling no back pain, CVA tenderness or radicular pain no bruising, bleeding or rashes no focal signs of weakness or numbness or altered sensation Physical Exam Physical Exam: The patient chronically ill and moderately fatigued Vital signs as documented. Head exam is normocephalic atraumatic Neck is without stridor or, thyromegaly Lungs are coarse but good air movement bilaterally Cardiac exam, Rhythm is regular.. No murmurs, rubs or gallops. Abdominal exam reveals normal bowel sounds, soft non tender, no masses Extremities are 1+edematous and both pedal pulses are present Neurologic exam is alert and orientedx1 no focal loss of strength or sensation Skin is without bruises or rashes Results & Data Results & Data ([facility]) Vital Signs (Past 12 Hours) Vital Signs Temp Pulse Pulse Resp BP Pulse Ox 12/15/21 15:57 58 L 24 94 12/15/21 15:00 60 21 181/92 H 95 12/15/21 14:00 62 22 174/86 H 94 12/15/21 13:15 60 22 94 12/15/21 13:00 55 L 18 186/76 H 94 12/15/21 12:42 55 L 179/84 H 12/15/21 12:00 99.1 F 67 25 H 179/84 H 90 12/15/21 11:16 87 18 92 12/15/21 11:00 99.3 F 71 29 H 180/84 H 87 L 12/15/21 10:00 99.3 F 79 24 165/87 H 87 L 12/15/21 09:21 99.3 F 72 27 H 154/66 H 92 12/15/21 09:00 60 25 H 95 12/15/21 08:01 54 L 25 H 142/99 H 97 12/15/21 08:00 51 L 20 96 12/15/21 07:25 68 20 96 12/15/21 07:01 67 24 156/92 H 98 12/15/21 07:00 67 22 98 12/15/21 06:03 49 L 109/66 PG Care Time/CCT Total # of Minutes Spent Total Time Spent with Patient: Total time spent is greater than 50% in coordination of care (as documented) at patient's floor/unit and/or counseling patient: Coding Level of Care Code 76951 Subseq Hosp Care Lvl 2 Diagnoses Respiratory failure with hypoxia and hypercapnia J96.01; J96.02 Chronicity: acute Pneumonia J18.9 Laterality: left Lung location: upper lobe of lung Pneumonia type: due to unspecified organism Septic shock A41.9; R65.21 Hyponatremia E87.1 SIRS (systemic inflammatory response syndrome) R65.10 Uncontrolled type 2 diabetes mellitus with hyperosmolarity, without long-term current use of insulin E11.00 Left shoulder pain M25.512 Hypertension I10 Hypertension type: essential hypertension Hyperlipidemia E78.5 Hyperlipidemia type: unspecified Chronic obstructive pulmonary disease J44.9 COPD type: unspecified COPD (1) Respiratory failure with hypoxia and hypercapnia Chronicity: acute Qualified Code(s): J96.01 - Acute respiratory failure with hypoxia; J96.02 - Acute respiratory failure with hypercapnia (2) Pneumonia Laterality: left Lung location: upper lobe of lung Pneumonia type: due to unspecified organism Qualified Code(s): J18.9 - Pneumonia, unspecified organism (3) Hypertension Hypertension type: essential hypertension Qualified Code(s): I10 - Essential (primary) hypertension (4) Hyperlipidemia Hyperlipidemia type: unspecified Qualified Code(s): E78.5 - Hyperlipidemia, unspecified (5) Chronic obstructive pulmonary disease COPD type: unspecified COPD Qualified Code(s): J44.9 - Chronic obstructive pulmonary disease, unspecified
[2021-12-15] MEDS: MAGNESIUM OXIDE 400 MG TAB PO SCH (19:37)
[2021-12-15] MEDS ORDERED: MoRPHine SULFATE 2 MG/ML CARP IV STA (23:28)
[2021-12-16] MEDS: ALBUTEROL 0.5% NEB SOLN 2.5 MG/0.5 ML VIAL NEB SCH ×4 (00:39→19:31)
[2021-12-16] MEDS: AMPICILLIN/SULBACTAM SOD 1,500 MG in 0.9 % SODIUM CHLORIDE 100 ML IV SCH ×4 (03:41→21:42)
[2021-12-16 05:28] LABS: BUN Creatinine Ratio 65.6 (10-20); Calcium 9.1 mg/dl (8.5-10.1); Creatinine Clr Calc Pharmacy 97.3 ml/min; Est GFR (African American) 104.8 ml/min; Est GFR (Non-African American) 90.4 ml/min; Magnesium 1.4 mg/dl (1.7-2.4); Phosphorus 3.7 mg/dl (2.5-4.9); Potassium 3.5 mmol/L (3.5-5.1)
[2021-12-16 05:41] LABS: Hematocrit (blood only) 31.8 % (37-47); Hemoglobin 9.4 g/dL (12.0-16.0); Mean Corpuscular Hemoglobin 28.9 pg (25-34); Mean Corpuscular Hgb Conc 29.6 g/dL (32-36); Mean Corpuscular Volume 97.8 fL (80-100); Mean Platelet Volume 8.9 fL (7.4-10.4); Platelet Count 415 K/uL (130-400); RDW Coefficient of Variation 16.8 % (11.5-14.5); RDW Standard Deviation 60.1 fL (36.4-46.3); Red Blood Count 3.25 M/uL (4.2-5.4); White Blood Count 8.54 K/uL (4.8-10.8)
[2021-12-16 05:57] LABS: Basophils # (auto) 0.01 K/uL (0-0.2); Basophils % (auto) 0.1 %; Eosinophils # (auto) 0.02 K/uL (0-0.5); Eosinophils % (auto) 0.2 %; Immature Granulocytes # (auto) 0.03 K/uL (0.00-0.02); Immature Granulocytes % (auto) 0.4 %; Lymphocytes # (auto) 1.74 K/uL (1.2-3.4); Lymphocytes % (auto) 20.4 %; Monocytes # (auto) 0.42 K/uL (0.11-0.59); Monocytes % (auto) 4.9 %; Neutrophils # (auto) 6.32 K/uL (1.4-6.5); Polychromasia 1+
[2021-12-16] MEDS: INSULIN ASPART PER UNIT SC SCH ×4 (06:01→20:45)
[2021-12-16] MEDS: METOPROLOL TARTRATE 1 MG/ML VIAL IV SCH ×3 (06:16→18:25)
[2021-12-16] MEDS: HEPARIN SOD 5,000 UNIT/0.5 ML VIAL SQ SCH ×3 (06:16→20:27)
[2021-12-16] MEDS: MAGNESIUM SULFATE / D5W 1 GM/100 ML BAG IV SCH ×3 (06:41→10:25)
[2021-12-16] MEDS: POTASSIUM CHLORIDE / WTR 10 MEQ/100 ML PLCT IV SCH ×6 (06:42→13:57)
[2021-12-16] MEDS: INSULIN GLARGINE SOLOSTAR 100 UNITS/ML 3 ML PEN SC SCH (09:20)
--- NOTE | 2021-12-16 09:33 | XRay Report ---
XR chest 1V portable CLINICAL HISTORY: resp failure TECHNIQUE: Single frontal radiograph of the chest was obtained. Comparison: Comparison is made to chest radiograph 12/15/2021 FINDINGS: No lines and tubes are seen. The cardiomediastinal silhouette is obscured. Left lung opacification, m ild leftward midline shift, and right lower lobe airspace opacities are again seen. No pneumothorax. Right reverse shoulder arthroplasty is noted. IMPRESSION: Similar appearance of left lobe opacification and volume loss and right lower lobe airspace opacities . Interval mild improvement in pulmonary vascular congestion. ACT 112: Negative or not required by law. Electronically signed by: Jerry White M.D. 12/16/2021 9:31 AM
[2021-12-16] MEDS ORDERED: STAT IV Infusion **Titration per Protocol STA (09:36)
--- NOTE | 2021-12-16 09:40 | Critical Care Progress Note ---
Date of Service December 16, 2021 Assessment & Plan (1) Respiratory failure with hypoxia and hypercapnia: Plan: Reason Critically Ill: 71-year-old female with history of symptomatic anemia who presents with hypotension and sepsis-like syndrome with presumptive left upper lobe pneumonia PLAN: Neuro: Acute encephalopathy: resolved Resp: Acute on chronic respiratory failure with hypoxia and hypercapnia -Chronic O2 use at home - Extubated 12/14 - intermittent episodes of shortness of breath after extubation. -Improved with Bipap Mucoid impaction - Bronch through CPAP/BiPAP CV: Hypotension, resolved Elevated troponin: downtrending -echocardiogram reviewed, evidence consistent with cor pulmonale/pulmonary hypertension -Suspect type II ischemia Prolonged QTC: Suspect artifact secondary to a right bundle branch block Fluids/Renal: Acute kidney injury Baseline approximately 0.5: resolved -40 mg lasix BID today with 40 meq potassium Hypomagnesemia: Receiving 3 grams IV mag ID: Left upper lobe pneumonia -Unasyn total 7 days of ABX treatment -Scnt normal priscilla on bronch culture. -transition to augmentin when able to take PO GI/Nutrition: Speech evaluation given > 24 hours of intubation. Guaiac stool x1 when produced Heme: Anemia: Followed by oncology -S/P 1 unit packed red blood cells DVT prophylaxis: Heparin subcu 7,500 units every 8 hours Endocrine: ICU hyperglycemia protocol - Sliding scale Vascular access: Left internal jugular CVC discontinued Code Status: DNR in event of cardiac arrest Disposition:ICU Discussed with hospitalist service: Patient was questioning continuing aggressive care. Patient may benefit from palliative care discussion with regard to pulmonary status. Will consult palliative care (2) Pneumonia: (3) Septic shock: (4) Cor pulmonale: Admission and Anticipated Discharge Date Admission Date: December 12, 2021 Supervising Physician Co-Signing Physician Notes Patient was discussed on multidisciplinary rounds. Discussed with hospitalist service. I have personally spent 40 minutes of critical care time in the direct management of this patient. This is a life/limb threatening event. This includes time spent evaluating patient, direct bedside care, chart review, placing orders, interpretation of diagnostic studies, discussion with consultants, patient, and/or family members regarding treatment decisions, as well as other required patient management activities. This time is exclusive of all separately billable procedures, and teaching time and separate from and in addition to any other critical care service time. Subjective Feels slightly improved compared to yesterday. Review of Systems Review of Systems: Positive for dyspnea, negative sputum production Physical Exam Physical Exam: General: Alert, oriented nontoxic. Skin: Warm, dry, Head: Atraumatic Ears, nose, mouth and throat: bipap mask in place Cardiovascular: Normal capillary refill Respiratory: Ventilator settings reviewed Gastrointestinal: Non distended Musculoskeletal: Congenitally short left upper extremity. 1+ pitting edema bilateral lower extremities Results & Data Results & Data ([facility]) Vital Signs (Past 12 Hours) Vital Signs Temp Pulse Pulse Resp BP Pulse Ox 12/16/21 08:00 37.2 C 67 22 149/69 H 92 12/16/21 07:00 37.2 C 64 25 H 146/89 H 99 12/16/21 06:59 67 18 94 12/16/21 06:16 65 165/65 H 12/16/21 06:01 37.2 C 78 27 H 165/65 H 92 12/16/21 06:00 37.1 C 67 21 90 12/16/21 05:00 37.2 C 88 22 164/55 H 91 12/16/21 04:00 37.3 C 65 22 157/63 H 96 12/16/21 03:40 64 27 H 95 12/16/21 03:16 67 23 144/62 H 90 12/16/21 03:12 69 19 92 12/16/21 03:02 68 25 H 95 12/16/21 03:00 67 21 94 12/16/21 02:00 68 23 185/69 H 94 12/16/21 01:00 68 25 H 177/82 H 96 12/16/21 00:40 65 28 H 95 12/16/21 00:03 62 18 164/63 H 95 12/16/21 00:01 60 21 92 12/16/21 00:00 63 20 90 12/15/21 23:49 68 168/60 H 12/15/21 23:28 64 12/15/21 23:01 65 23 168/60 H 96 12/15/21 23:00 66 22 92 12/15/21 22:20 60 25 H 98 12/15/21 22:00 64 23 166/67 H 94 Critical Care Results & Data Vital Signs (Past 12 Hours) Vital Signs Temp Pulse Pulse Resp BP Pulse Ox 12/16/21 08:00 37.2 C 67 22 149/69 H 92 12/16/21 07:00 37.2 C 64 25 H 146/89 H 99 12/16/21 06:59 67 18 94 12/16/21 06:16 65 165/65 H 12/16/21 06:01 37.2 C 78 27 H 165/65 H 92 12/16/21 06:00 37.1 C 67 21 90 12/16/21 05:00 37.2 C 88 22 164/55 H 91 12/16/21 04:00 37.3 C 65 22 157/63 H 96 12/16/21 03:40 64 27 H 95 12/16/21 03:16 67 23 144/62 H 90 12/16/21 03:12 69 19 92 12/16/21 03:02 68 25 H 95 12/16/21 03:00 67 21 94 12/16/21 02:00 68 23 185/69 H 94 12/16/21 01:00 68 25 H 177/82 H 96 12/16/21 00:40 65 28 H 95 12/16/21 00:03 62 18 164/63 H 95 12/16/21 00:01 60 21 92 12/16/21 00:00 63 20 90 12/15/21 23:49 68 168/60 H 12/15/21 23:28 64 12/15/21 23:01 65 23 168/60 H 96 12/15/21 23:00 66 22 92 12/15/21 22:20 60 25 H 98 12/15/21 22:00 64 23 166/67 H 94 Lab & Micro Results (Past 24 Hours) RBC 3.25 M/uL (4.2-5.4) L 12/16/21 WBC 8.54 K/uL (4.8-10.8) 12/16/21 Hgb 9.4 g/dL (12.0-16.0) L 12/16/21 Hct 31.8 % (37-47) L 12/16/21 MCV 97.8 fL (80-100) 12/16/21 MCH 28.9 pg (25-34) 12/16/21 MCHC 29.6 g/dL (32-36) L 12/16/21 RDW Standard Deviation 60.1 fL (36.4-46.3) H 12/16/21 RDW Coefficient of Variation 16.8 % (11.5-14.5) H 12/16/21 Plt Count 415 K/uL (130-400) H 12/16/21 MPV 8.9 fL (7.4-10.4) 12/16/21 Neutrophils (%) (Auto) 74.0 % 12/16/21 Lymphocytes (%) (Auto) 20.4 % 12/16/21 Monocytes # (Auto) 0.42 K/uL (0.11-0.59) 12/16/21 Eosinophils # (Auto) 0.02 K/uL (0-0.5) 12/16/21 Immature Granulocyte % (Auto) 0.4 % 12/16/21 Neutrophils # (Auto) 6.32 K/uL (1.4-6.5) 12/16/21 Lymphocytes # (Auto) 1.74 K/uL (1.2-3.4) 12/16/21 Monocytes # (Auto) 0.42 K/uL (0.11-0.59) 12/16/21 Eosinophils # (Auto) 0.02 K/uL (0-0.5) 12/16/21 Basophils # (Auto) 0.01 K/uL (0-0.2) 12/16/21 Immature Granulocyte # (Auto) 0.03 K/uL (0.00-0.02) H 12/16/21 Polychromasia 1+ 12/16/21 Na 141 mmol/L (136-145) 12/16/21 K 3.5 mmol/L (3.5-5.1) 12/16/21 Cl 99 mmol/L (98-107) 12/16/21 CO2 30 mmol/L (21-32) 12/16/21 Anion Gap 12 (3-11) H 12/16/21 BUN 42 mg/dl (6-23) H 12/16/21 Creatinine 0.64 mg/dl (0.6-1.2) 12/16/21 Estimated GFR ( Amer) 104.8 ml/min 12/16/21 Estimated GFR (Non-Af Amer) 90.4 ml/min 12/16/21 BUN/Creatinine Ratio 65.6 (10-20) H 12/16/21 Glu 120 mg/dl (70-99(Fasting)) H 12/16/21 Ca 9.1 mg/dl (8.5-10.1) 12/16/21 Phosphorus Level 3.7 mg/dl (2.5-4.9) 12/16/21 Mg 1.4 mg/dl (1.7-2.4) L 12/16/21 04:48 12/16/21 Calcium Level 9.1 mg/dl (8.5-10.1) 12/16/21 04:48 12/16/21 Diagnostic Findings (Past 24 Hours) Chest X-Ray 12/16/21 07:15 XR chest 1V portable CLINICAL HISTORY: resp failure TECHNIQUE: Single frontal radiograph of the chest was obtained. Comparison: Comparison is made to chest radiograph 12/15/2021 FINDINGS: No lines and tubes are seen. The cardiomediastinal silhouette is obscured. Left lung opacification, mild leftward midline shift, and right lower lobe airspace opacities are again seen. No pneumothorax. Right reverse shoulder arthroplasty is noted. IMPRESSION: Similar appearance of left lobe opacification and volume loss and right lower l obe airspace opacities. Interval mild improvement in pulmonary vascular congestion. ACT 112: Negative or not required by law. Electronically signed by: Jerry White M.D. 12/16/2021 9:31 AM I & O Totals 24 Hours 12/15/21 12/16/21 12/17/21 06:59 06:59 06:59 Intake Total 846.706 / 846.706 504.105 / 504.105 285.833 / 285.833 Output Total 1025 / 1025 4825 / 4825 225 / 225 Balance -178.294 / -178.294 -4320.895 / -4320.895 60.833 / 60.833 Cumulative 12/12/21 05:08 thru 12/16/21 09:14 Intake Total 8734.546 Output Total 15382 Balance -2815.454 RT Ventilator Mngmt (Last Documented) Ventilator Ordered Settings Ventilator Support Mode CPAP 12/14/21 07:05 Respiratory Rate 12/16/21 08:00 Ventilator Tidal Volume 350 12/14/21 04:10 Setting Minute Ventilation 4.9 12/14/21 07:05 Ventilator Positive Pressure 10 12/14/21 07:05 Support Setting Positive End Expiratory 8 12/14/21 07:05 Pressure Fraction of Inspired Oxygen 30 12/16/21 03:40 Machine Comment FiO2 titrated to 45% 12/14/21 04:10 Ventilator - PT Measurements Respiratory Rate 22 Exhaled Tidal Volume 450 Minute Ventilation 4.9 Peak Inspiratory Airway 20 Pressure Plateau Pressure 18 Respiratory Cycle Inspiratory: 1:4 Expiratory Ratio Inspiratory Phase Time 0.7 End-Tidal CO2 39 Static Lung Compliance 35.90 Dynamic Lung Compliance 37.50 Normal Static Lung Compliance 48.00 Patient Measurements Comment Patient is agitated at this time. Coding Level of Care Code Critical Care 1st 30-74 mins Diagnoses Respiratory failure with hypoxia and hypercapnia J96.01; J96.02 Chronicity: acute Pneumonia J18.9 Laterality: left Lung location: upper lobe of lung Pneumonia type: due to unspecified organism Septic shock A41.9; R65.21 Cor pulmonale I27.81 (1) Respiratory failure with hypoxia and hypercapnia Chronicity: acute Qualified Code(s): J96.01 - Acute respiratory failure with hypoxia; J96.02 - Acute respiratory failure with hypercapnia (2) Pneumonia Laterality: left Lung location: upper lobe of lung Pneumonia type: due to unspecified organism Qualified Code(s): J18.9 - Pneumonia, unspecified organism
[2021-12-16] MEDS: dexMEDEtomidine 200 MCG/50 ML BAG IV SCH ×4 (10:25→23:57)
[2021-12-16] MEDS: FUROSEMIDE INJ 20 MG/2 ML VIAL IV SCH ×2 (10:49→20:26)
[2021-12-16] MEDS ORDERED: fentaNYL citrate 100 MCG/2 ML VIAL ONE (10:57)
[2021-12-16] MEDS ORDERED: MIDAZOLAM HCL 1 MG/ML 2ML VIAL ONE (10:57)
[2021-12-16] MEDS ORDERED: fentaNYL citrate 100 MCG/2 ML VIAL IV STA (11:34)
[2021-12-16] MEDS ORDERED: MIDAZOLAM HCL 1 MG/ML 2ML VIAL IV ONE (11:35)
--- NOTE | 2021-12-16 12:52 | Pharmacy Report ---
Pharmacy Glycemic Short Note 2 - Date of Service December 16, 2021 - Glycemic Short BSG Results (Last 24 hours): 12/15/21 12/15/21 12/15/21 12:50 18:25 23:46 Glucose POC Glucose 126 H 111 H 119 H 12/16/21 12/16/21 12/16/21 04:48 07:45 11:59 Glucose 120 H POC Glucose 118 H 161 H OUTPATIENT ANTIDIABETIC REGIMEN: * Lantus 35 units SQ AM * Metformin 850 PO TIDM (previous notes state 1700 mg AM + 850 mg PM) * Januvia 100 mg PO HS * HbA1c 4.4% ASSESSMENT: 12/16: * BSGs within goal the last 24h ([phone] (fasting)). Patient received 20 units of basal yesterday and 3 units of bolus insulin. * Patient has remained NPO for nearly 72hours with BSGs down-trending. Decreased Lantus dose to 10 units this AM --> diet ordered, however intake not yet documented. Plan for an HS Lantus scale to provide additional basal if BSGs trend up throughout the day if needed. * No change to Novolog. 12/15: * Patient's BSGs yesterday were [phone] mg/dL receiving 46 units of insulin, 20 of which were basal. * Fasting BSG continued to improve today at 148. Will continue with current lantus dose and change novolog order from q4 to q6. * Patient remains NPO. 12/13 * 71 yo F admitted on 12/12/21 secondary to acute hypoxic respiratory failure requiring intubation and mechanical ventilation. Pharmacy was consulted today to assist with inpatient glycemic management. Most recent HbA1c in August 2021 was 5.0%. Repeat HbA1c is pending. * Stressors include: mechanical ventilation, IV solumedrol 100 mg BID, Cefepime for pneumonia, and addition of trickle feeds today. Pressors were titrated off today. * Will start Novolog based on weight and stress of 3 which is similar to previous admission data. Will give a one time Lantus dose today. Monitor steroid dose and tube feed rate in the AM for further Lantus dosing. PLAN FOR INPATIENT GLYCEMIC CONTROL: * Hold outpatient oral diabetes medications * Basal insulin * Lantus 10 units SQ qam + HS scale * Bolus insulin * NovoLog per scale ACHS or Q6hrs while NPO * Goal Range: Low 110 mg/dL - High 140 mg/dL * Correction Factor: 12 mg/dL/unit * Nutritional / Prandial insulin per carb ratio of 1 unit per 4 grams CHO consumed
--- NOTE | 2021-12-16 13:12 | Procedure Note ---
Procedure Note Date of Service December 16, 2021 Note Procedure date: December 17, 2019 Procedure: fiberoptic bronchoscopy Pre-procedure indication: Whiteout left lung, suspected mucoid impaction of left lobe Post-procedure Diagnosis: same as above Prior to Procedure: Informed Consent: The risks, benefits, indications, potential complications, and alternatives were explained to the patient and informed consent obtained. Attending Staff: Ravindra Dang DO Resident/APC: Not applicable Skin Prep: Not applicable Anesthesia: Continuous infusion of dexmedetomidine, 100 mcg fentanyl, half milligram Versed The identity of the patient was confirmed and a bedside time out was performed. Description of Procedure: Fiberoptic bronchoscopy was performed via endotracheal tube. Bronchioalveolar lavage left lobes was performed. Findings included: Sticky, thick tenacious clear secretions in the left lobe which were difficult to suction through the working channel. They were so difficult typically the secretions would become lodged in the working channel and the working channel needed to be removed from the patient and the working channel flushed. This occurred several times, we instilled 10 mL of Mucomyst into the left lower lobe. The procedure was discontinued due to patient intolerance of repeated exit and entry of the bronchoscope. Complications: None Specimens: None Estimated blood loss: Zero Coding CPT Codes Pulmonary/Thoracic - Pulmonary and Thoracic: 29639 Bronchoscopy, clear airways ([id number]) [facility] Procedure Codes (Charges) Pulmonary/Thoracic Procedure 1: Pulmonary and Thoracic: 44615 Bronchoscopy, clear airways
[2021-12-16] MEDS ORDERED: ACETYLCYSTEINE 20% INHAL SOLN 4ML ***DISPENSED BY RESP. INH SCH (13:15)
[2021-12-16] MEDS ORDERED: Nursing to Pharmacy Communication SCH (14:15)
[2021-12-16] MEDS: MULTI VIT W/MINERALS LIQUID 15 ML UDP PO SCH (14:37)
--- NOTE | 2021-12-16 15:06 | Hospitalist Progress Note ---
Date of Service December 16, 2021 Assessment & Plan (1) Respiratory failure with hypoxia and hypercapnia: Plan: Traci is a 71-year-old female with Acute hypoxic respiratory failure with sepsis 2/2 left upper lobe pneumonia, presented with sepsis criteria with pneumonia on CT. Past medical history of type 2 diabetes, chronic anemia requiring transfusion and iron infusions , hypertension, hyperlipidemia, previous subdural hematoma unasyn current choice of antibiotic \ extubated 12/14/21 now oxymask and bipap Required pressors, norepi gtt, precedex wenaed off both -anxiety worsens tachypnea, continued icu support eval for effusion did not see on u/s, plans of bronchoscopy 12/16 -speech eval 12/16/21 Troponin elevation severe demand in the setting of hypoxia and pneumonia above TTE: LV SF normal, mild concentric LVH, grade 1 diastolic dysfunction, RV dilation, elevated RVSP EYAD, no history of CKD. 2/2 sepsis - Normalized 12/13 History of chronic anemia Follow[facility], Transfused 1 unit packed blood cells for hemoglobin 7.0 with sepsis and troponin elevation -remains in the 9 gm range History of COPD. nocturnal 3L oxygen, prn day use On albuterol as needed [employer]. No maintenance inhalers Echo suggests elevated R heart pressures Type II DM ICU hyperglycemia protocol, on lantus and SSI Hold home metformin, Januvia A1c 4.4 will need to eval home program on discharge Hyperlipidemia Atorvastatin 80 mg on hold History of depression Seroquel 50 mg p.o. nightly held DVT prophylaxis: Heparin subcu Disposition: ICU CODE STATUS: DNR/DNI, discussed with daughter at bedside (2) Pneumonia: (3) Septic shock: (4) Hyponatremia: (5) SIRS (systemic inflammatory response syndrome): (6) Uncontrolled type 2 diabetes mellitus with hyperosmolarity, without long- term current use of insulin: (7) Left shoulder pain: (8) Hypertension: (9) Hyperlipidemia: (10) Chronic obstructive pulmonary disease: Admission and Anticipated Discharge Date Admission Date: December 12, 2021 Subjective Feels slightly improved compared to yesterday, is more conversational , engages in health decisions, bárbara bronchoscopy 12/16/21 Review of Systems Review of Systems: Mild to Moderate respiratory distress and fatigue no headache, no visual changes no speech or swallowing issues no chest pain, pressure or palpitations continues with shortness of breath, non productive cough no abdominal pain, nausea or vomiting, diarrhea or constipation no dysuria, hematuria or frequency no focal joint pain or swelling no back pain, CVA tenderness or radicular pain no bruising, bleeding or rashes no focal signs of weakness or numbness or altered sensation Physical Exam Physical Exam: The patient chronically ill and moderately fatigued Vital signs as documented. Head exam is normocephalic atraumatic Neck is without stridor or, thyromegaly Lungs are coarse diminshed breath sounds on the left Cardiac exam, Rhythm is regular.. No murmurs, rubs or gallops. Abdominal exam reveals normal bowel sounds, soft non tender, no masses Extremities are 1+edematous and both pedal pulses are present Neurologic exam is alert and orientedx1 no focal loss of strength or sensation Skin is without bruises or rashes Results & Data Results & Data ([facility]) Vital Signs (Past 12 Hours) Vital Signs Temp Pulse Pulse Resp BP Pulse Ox 12/16/21 14:01 98.8 F 65 19 144/77 H 86 L 12/16/21 14:00 98.8 F 62 24 87 L 12/16/21 13:00 98.6 F 57 L 20 170/65 H 91 12/16/21 12:51 57 L 18 97 12/16/21 12:00 98.8 F 71 26 H 169/68 H 92 12/16/21 11:31 76 28 H 93 12/16/21 11:20 99.0 F 87 19 155/90 H 100 12/16/21 11:19 99.0 F 94 H 18 155/100 H 100 12/16/21 11:15 98.8 F 94 H 20 155/132 H 100 12/16/21 11:13 98.8 F 106 H 20 177/147 H 100 12/16/21 11:11 98.8 F 104 H 13 170/130 H 100 12/16/21 11:01 98.8 F 67 21 185/95 H 100 12/16/21 11:00 98.8 F 68 23 100 12/16/21 10:35 98.6 F 65 25 H 174/76 H 95 12/16/21 10:00 98.6 F 67 26 H 90 12/16/21 09:00 98.8 F 66 23 154/64 H 88 L 12/16/21 08:00 99.0 F 67 22 149/69 H 92 12/16/21 07:00 99.0 F 64 25 H 146/89 H 99 12/16/21 06:59 67 18 94 12/16/21 06:16 65 165/65 H 12/16/21 06:01 99.0 F 78 27 H 165/65 H 92 12/16/21 06:00 98.8 F 67 21 90 12/16/21 05:00 99.0 F 88 22 164/55 H 91 12/16/21 04:00 99.1 F 65 22 157/63 H 96 12/16/21 03:40 64 27 H 95 12/16/21 03:16 67 23 144/62 H 90 12/16/21 03:12 69 19 92 12/16/21 03:02 68 25 H 95 PG Care Time/CCT Total # of Minutes Spent Total Time Spent with Patient: Total time spent is greater than 50% in coordination of care (as documented) at patient's floor/unit and/or counseling patient: Coding Level of Care Code 15124 Subseq Hosp Care Lvl 3 Diagnoses Respiratory failure with hypoxia and hypercapnia J96.01; J96.02 Chronicity: acute Pneumonia J18.9 Laterality: left Lung location: upper lobe of lung Pneumonia type: due to unspecified organism Septic shock A41.9; R65.21 Hyponatremia E87.1 SIRS (systemic inflammatory response syndrome) R65.10 Uncontrolled type 2 diabetes mellitus with hyperosmolarity, without long-term current use of insulin E11.00 Left shoulder pain M25.512 Hypertension I10 Hypertension type: essential hypertension Hyperlipidemia E78.5 Hyperlipidemia type: unspecified Chronic obstructive pulmonary disease J44.9 COPD type: unspecified COPD (1) Respiratory failure with hypoxia and hypercapnia Chronicity: acute Qualified Code(s): J96.01 - Acute respiratory failure with hypoxia; J96.02 - Acute respiratory failure with hypercapnia (2) Pneumonia Laterality: left Lung location: upper lobe of lung Pneumonia type: due to unspecified organism Qualified Code(s): J18.9 - Pneumonia, unspecified organism (3) Hypertension Hypertension type: essential hypertension Qualified Code(s): I10 - Essential (primary) hypertension (4) Hyperlipidemia Hyperlipidemia type: unspecified Qualified Code(s): E78.5 - Hyperlipidemia, unspecified (5) Chronic obstructive pulmonary disease COPD type: unspecified COPD Qualified Code(s): J44.9 - Chronic obstructive pulmonary disease, unspecified
[2021-12-16] MEDS: ACETYLCYSTEINE 20% INHAL SOLN 4ML ***DISPENSED BY RESP. INH SCH (19:31)
[2021-12-16] MEDS: MAGNESIUM OXIDE 400 MG TAB PO SCH (20:26)
[2021-12-16] MEDS ORDERED: ACETAMINOPHEN 325 MG TAB PO PRN (20:43)
[2021-12-16] MEDS ORDERED: INSULIN GLARGINE SOLOSTAR 100 UNITS/ML 3 ML PEN SC SCH (21:00)
[2021-12-17] MEDS: ALBUTEROL 0.5% NEB SOLN 2.5 MG/0.5 ML VIAL NEB SCH ×4 (00:16→19:12)
[2021-12-17] MEDS: METOPROLOL TARTRATE 1 MG/ML VIAL IV SCH ×2 (00:21→06:03)
[2021-12-17] MEDS: AMPICILLIN/SULBACTAM SOD 1,500 MG in 0.9 % SODIUM CHLORIDE 100 ML IV SCH ×2 (03:58→09:33)
[2021-12-17] MEDS: dexMEDEtomidine 200 MCG/50 ML BAG IV SCH ×2 (04:33→09:24)
[2021-12-17] MEDS: HEPARIN SOD 5,000 UNIT/0.5 ML VIAL SQ SCH ×3 (06:03→21:46)
[2021-12-17] MEDS: ACETYLCYSTEINE 20% INHAL SOLN 4ML ***DISPENSED BY RESP. INH SCH ×2 (06:50→19:12)
[2021-12-17 06:53] LABS: Basophils # (auto) 0.01 K/uL (0-0.2); Basophils % (auto) 0.2 %; Eosinophils # (auto) 0.18 K/uL (0-0.5); Eosinophils % (auto) 2.8 %; Hematocrit (blood only) 32.9 % (37-47); Hemoglobin 9.5 g/dL (12.0-16.0); Immature Granulocytes # (auto) 0.04 K/uL (0.00-0.02); Immature Granulocytes % (auto) 0.6 %; Lymphocytes # (auto) 1.35 K/uL (1.2-3.4); Lymphocytes % (auto) 20.9 %; Mean Corpuscular Hemoglobin 27.8 pg (25-34); Mean Corpuscular Hgb Conc 28.9 g/dL (32-36); Mean Corpuscular Volume 96.2 fL (80-100); Mean Platelet Volume 8.9 fL (7.4-10.4); Monocytes % (auto) 15.5 %; Neutrophils # (auto) 3.88 K/uL (1.4-6.5); Platelet Count 453 K/uL (130-400); RDW Coefficient of Variation 16.8 % (11.5-14.5); RDW Standard Deviation 58.8 fL (36.4-46.3); Red Blood Count 3.42 M/uL (4.2-5.4); White Blood Count 6.46 K/uL (4.8-10.8)
--- NOTE | 2021-12-17 07:15 | XRay Report ---
XR chest 1V portable CLINICAL HISTORY: PNA, Daily X-Ray COMPARISON STUDY: Chest CT December 12, 2021. Chest radiograph December 16, 2021. FINDINGS: Right shoulder arthroplasty is incidentally noted with chronic erosion of the humerus, part ially imaged on this examination. Old deformity of the proximal left humerus is also noted. Complete opacification of the left lung with left lung volume loss is again noted. There is a trace right pleu ral effusion. There is no pneumothorax. Interstitial thickening within the right lung persists. IMPRESSION: 1. Persistent complete opacification of the left lung with volume loss. This favors left lung collaps e although superimposed pneumonia may be present. 2. No change in pulmonary vascular congestion with suspected mild pulmonary edema within the right david ng. 3. Trace right pleural effusion. ACT 112: Negative or not required by law. Electronically signed by: Alan Sanches M.D. 12/17/2021 7:12 AM
[2021-12-17 07:18] LABS: Calcium 8.5 mg/dl (8.5-10.1); Creatinine Clr Calc Pharmacy 118.1 ml/min; Est GFR (African American) 113.7 ml/min; Est GFR (Non-African American) 98.1 ml/min; Magnesium 1.3 mg/dl (1.7-2.4); Phosphorus 2.3 mg/dl (2.5-4.9); Potassium 3.4 mmol/L (3.5-5.1)
[2021-12-17] MEDS: INSULIN ASPART PER UNIT SC SCH ×4 (07:52→20:26)
[2021-12-17] MEDS: INSULIN GLARGINE SOLOSTAR 100 UNITS/ML 3 ML PEN SC SCH (09:29)
[2021-12-17] MEDS: MULTI VIT W/MINERALS LIQUID 15 ML UDP PO SCH (09:30)
--- NOTE | 2021-12-17 10:00 | Critical Care Progress Note ---
Date of Service December 17, 2021 Assessment & Plan (1) Respiratory failure with hypoxia and hypercapnia: Plan: Reason Critically Ill: 71-year-old female with history of symptomatic anemia who presents with hypotension and sepsis-like syndrome with presumptive left upper lobe pneumonia PLAN: Neuro: Acute encephalopathy: resolved Resp: Acute on chronic respiratory failure with hypoxia and hypercapnia -Chronic O2 use at home - Extubated 12/14 - intermittent episodes of shortness of breath after extubation. -Tolerating baseline nasal cannula Mucoid impaction -Bronchoscopy for airway clearance on 12/16 CV: Hypotension, resolved Elevated troponin: downtrending -echocardiogram reviewed, evidence consistent with cor pulmonale/pulmonary hypertension -Suspect type II ischemia Prolonged QTC: Suspect artifact secondary to a right bundle branch block Fluids/Renal: Acute kidney injury Baseline approximately 0.5: resolved -restart home 20mg PO -40 M EQ's K-Dur today Hypomagnesemia: 3 grams IV mag today -400 mg magnesium oxide twice daily ID: Left upper lobe pneumonia -Unasyn total 7 days of ABX treatment -Scnt normal priscilla on bronch culture. -transition to augmentin for another 2 days GI/Nutrition: Speech evaluation: passed, on diet. Guaiac stool x1 when produced Heme: Anemia: Followed by oncology -S/P 1 unit packed red blood cells DVT prophylaxis: Heparin subcu 7,500 units every 8 hours Endocrine: ICU hyperglycemia protocol - Sliding scale Vascular access: peripheral IV Code Status: DNR in event of cardiac arrest Disposition: stable for downgrade (2) Pneumonia: (3) Septic shock: (4) Cor pulmonale: Admission and Anticipated Discharge Date Admission Date: December 12, 2021 Subjective Feels much better. Bedside nursing reports that she is starting to mobilize her secretions. We discussed risks and benefits of intubation for bronchoscopy she prefers to continue current pulmonary toilet at this time. Physical Exam Physical Exam: General: Alert, oriented nontoxic. Skin: Warm, dry, Head: Atraumatic Ears, nose, mouth and throat: Airway patent, nasal prongs in place Cardiovascular: Normal capillary refill Respiratory: No respiratory distress, speaks in full sentences Gastrointestinal: Non distended Musculoskeletal: Congenitally short left upper extremity. Results & Data Results & Data ([facility]) Vital Signs (Past 12 Hours) Vital Signs Temp Pulse Pulse Resp BP Pulse Ox 12/17/21 06:54 62 18 95 12/17/21 06:03 53 L 121/75 12/17/21 04:00 55 L 19 96 12/17/21 03:00 60 31 H 179/70 H 91 12/17/21 02:01 58 L 35 H 175/64 H 90 12/17/21 02:00 62 20 90 12/17/21 01:00 60 27 H 182/70 H 93 12/17/21 00:21 54 L 142/75 H 12/17/21 00:16 53 L 20 12/17/21 00:01 60 18 163/95 H 95 12/17/21 00:00 57 L 28 H 93 12/16/21 23:29 58 L 12/16/21 23:01 63 13 168/55 H 93 12/16/21 23:00 61 21 92 12/16/21 22:54 37.1 C 12/16/21 22:01 64 19 134/48 L 12/16/21 22:00 58 L 25 H Critical Care Results & Data Vital Signs (Past 12 Hours) Vital Signs Temp Pulse Pulse Resp BP Pulse Ox 12/17/21 06:54 62 18 95 12/17/21 06:03 53 L 121/75 12/17/21 04:00 55 L 19 96 12/17/21 03:00 60 31 H 179/70 H 91 12/17/21 02:01 58 L 35 H 175/64 H 90 12/17/21 02:00 62 20 90 12/17/21 01:00 60 27 H 182/70 H 93 12/17/21 00:21 54 L 142/75 H 12/17/21 00:16 53 L 20 12/17/21 00:01 60 18 163/95 H 95 12/17/21 00:00 57 L 28 H 93 12/16/21 23:29 58 L 12/16/21 23:01 63 13 168/55 H 93 12/16/21 23:00 61 21 92 12/16/21 22:54 37.1 C 12/16/21 22:01 64 19 134/48 L 12/16/21 22:00 58 L 25 H Lab & Micro Results (Past 24 Hours) RBC 3.42 M/uL (4.2-5.4) L 12/17/21 WBC 6.46 K/uL (4.8-10.8) 12/17/21 Hgb 9.5 g/dL (12.0-16.0) L 12/17/21 Hct 32.9 % (37-47) L 12/17/21 MCV 96.2 fL (80-100) 12/17/21 MCH 27.8 pg (25-34) 12/17/21 MCHC 28.9 g/dL (32-36) L 12/17/21 RDW Standard Deviation 58.8 fL (36.4-46.3) H 12/17/21 RDW Coefficient of Variation 16.8 % (11.5-14.5) H 12/17/21 Plt Count 453 K/uL (130-400) H 12/17/21 MPV 8.9 fL (7.4-10.4) 12/17/21 Neutrophils (%) (Auto) 60.0 % 12/17/21 Lymphocytes (%) (Auto) 20.9 % 12/17/21 Monocytes # (Auto) 1.00 K/uL (0.11-0.59) H 12/17/21 Eosinophils # (Auto) 0.18 K/uL (0-0.5) 12/17/21 Immature Granulocyte % (Auto) 0.6 % 12/17/21 Neutrophils # (Auto) 3.88 K/uL (1.4-6.5) 12/17/21 Lymphocytes # (Auto) 1.35 K/uL (1.2-3.4) 12/17/21 Monocytes # (Auto) 1.00 K/uL (0.11-0.59) H 12/17/21 Eosinophils # (Auto) 0.18 K/uL (0-0.5) 12/17/21 Basophils # (Auto) 0.01 K/uL (0-0.2) 12/17/21 Immature Granulocyte # (Auto) 0.04 K/uL (0.00-0.02) H 12/17/21 Na 138 mmol/L (136-145) 12/17/21 K 3.4 mmol/L (3.5-5.1) L 12/17/21 Cl 96 mmol/L (98-107) L 12/17/21 CO2 32 mmol/L (21-32) 12/17/21 Anion Gap 10 (3-11) 12/17/21 BUN 26 mg/dl (6-23) H 12/17/21 Creatinine 0.50 mg/dl (0.6-1.2) L 12/17/21 Estimated GFR ( Amer) 113.7 ml/min 12/17/21 Estimated GFR (Non-Af Amer) 98.1 ml/min 12/17/21 BUN/Creatinine Ratio 52.0 (10-20) H 12/17/21 Glu 112 mg/dl (70-99(Fasting)) H 12/17/21 Ca 8.5 mg/dl (8.5-10.1) 12/17/21 Phosphorus Level 2.3 mg/dl (2.5-4.9) L 12/17/21 Mg 1.3 mg/dl (1.7-2.4) L 12/17/21 06:26 12/17/21 Calcium Level 8.5 mg/dl (8.5-10.1) 12/17/21 06:26 12/17/21 Microbiology 12/12/21 06:04 Aerobic Blood Culture - Final Blood No growth in Aerobic bottle after 5 days. Anaerobic Blood Culture - Final 12/12/21 06:04 Aerobic Blood Culture - Final Blood No growth in Aerobic bottle after 5 days. Anaerobic Blood Culture - Final No growth in Anaerobic bottle after 5 days. Diagnostic Findings (Past 24 Hours) Chest X-Ray 12/17/21 07:00 XR chest 1V portable CLINICAL HISTORY: PNA, Daily X-Ray COMPARISON STUDY: Chest CT December 12, 2021. Chest radiograph December 16, 2021. FINDINGS: Right shoulder arthroplasty is incidentally noted with chronic erosion of the humerus, partially imaged on this examination. Old deformity of the proximal left humerus is also noted. Complete opacification of the left lung with left lung volume loss is again noted. There is a trace right pleural effusion. There is no pneumothorax. Interstitial thickening within the right lung persists. IMPRESSION: 1. Persistent complete opacification of the left lung with volume loss. This favors left lung collapse although superimposed pneumonia may be present. 2. No change in pulmonary vascular congestion with suspected mild pulmonary edema within the right lung. 3. Trace right pleural effusion. ACT 112: Negative or not required by law. Electronically signed by: Alan Sanches M.D. 12/17/2021 7:12 AM I & O Totals 24 Hours 12/16/21 12/17/21 12/18/21 06:59 06:59 06:59 Intake Total 504.105 / 975.140 5189.833 / 1672.833 Output Total 4825 / 4825 4075 / 4075 Balance -4320.895 / -4320.895 -2402.167 / -2402.167 Cumulative 12/12/21 05:08 thru 12/17/21 06:00 Intake Total 91510.546 Output Total 28597 Balance -5278.454 RT Ventilator Mngmt (Last Documented) Ventilator Ordered Settings Ventilator Support Mode CPAP 12/14/21 07:05 Respiratory Rate 18 12/17/21 06:54 Ventilator Tidal Volume 350 12/14/21 04:10 Setting Minute Ventilation 4.9 12/14/21 07:05 Ventilator Positive Pressure 10 12/14/21 07:05 Support Setting Positive End Expiratory 8 12/14/21 07:05 Pressure Fraction of Inspired Oxygen 40 12/16/21 11:31 Machine Comment FiO2 titrated to 45% 12/14/21 04:10 Ventilator - PT Measurements Respiratory Rate 18 Exhaled Tidal Volume 450 Minute Ventilation 4.9 Peak Inspiratory Airway 20 Pressure Plateau Pressure 18 Respiratory Cycle Inspiratory: 1:4 Expiratory Ratio Inspiratory Phase Time 0.7 End-Tidal CO2 39 Static Lung Compliance 35.90 Dynamic Lung Compliance 37.50 Normal Static Lung Compliance 48.00 Patient Measurements Comment Patient is agitated at this time. Coding Level of Care Code 45463 Subseq Hosp Care Lvl 3 Diagnoses Respiratory failure with hypoxia and hypercapnia J96.01; J96.02 Chronicity: acute Pneumonia J18.9 Laterality: left Lung location: upper lobe of lung Pneumonia type: due to unspecified organism Septic shock A41.9; R65.21 Cor pulmonale I27.81 (1) Respiratory failure with hypoxia and hypercapnia Chronicity: acute Qualified Code(s): J96.01 - Acute respiratory failure with hypoxia; J96.02 - Acute respiratory failure with hypercapnia (2) Pneumonia Laterality: left Lung location: upper lobe of lung Pneumonia type: due to unspecified organism Qualified Code(s): J18.9 - Pneumonia, unspecified organism
[2021-12-17] MEDS ORDERED: POTASSIUM CHLORIDE CRTAB 20 MEQ TABCR PO STA (10:04)
[2021-12-17] MEDS: FUROSEMIDE 20 MG TAB PO SCH (11:14)
[2021-12-17] MEDS: MAGNESIUM SULFATE / D5W 1 GM/100 ML BAG IV SCH ×3 (11:17→14:47)
[2021-12-17] MEDS ORDERED: metFORMIN HCL 850 MG TAB PO SCH (12:00)
--- NOTE | 2021-12-17 13:03 | Hospitalist Progress Note ---
Date of Service December 17, 2021 Assessment & Plan (1) Respiratory failure with hypoxia and hypercapnia: Plan: Traci is a 71-year-old female with Acute hypoxic respiratory failure with sepsis 2/2 left upper lobe pneumonia, presented with sepsis criteria with pneumonia on CT. Past medical history of type 2 diabetes, chronic anemia requiring transfusion and iron infusions , hypertension, hyperlipidemia, previous subdural hematoma Acute on chronic respiratory failure: Patient currently on baseline nasal oxygen Has been extubated (2) Pneumonia: Plan: Resolving \ extubated 12/14/21 now oxymask and bipap Required pressors, norepi gtt, precedex wenaed off both -anxiety worsens tachypnea, had bronchoscopy for a muvcus plug -currently on unasyn (3) Septic shock: Plan: 1 septic shock; Resolved. \ extubated 12/14/21 now oxymask and bipap Required pressors, norepi gtt, precedex wenaed off both -anxiety worsens tachypnea, had bronchoscopy for a muvcus plug -currently on unasyn (4) Hyponatremia: Plan: improving (5) Anemia: Plan: History of chronic anemia [facility], Transfused 1 unit packed blood cells for hemoglobin 7.0 with sepsis and troponin elevation -remains in the 9 gm range (6) Uncontrolled type 2 diabetes mellitus with hyperosmolarity, without long- term current use of insulin: Plan: Type II DM hyperglycemia protocol, on lantus and SSI Hold home metformin, Januvia A1c 4.4 will need to eval home program on discharge (7) Hypertension: (8) Hyperlipidemia: (9) Chronic obstructive pulmonary disease: Plan: History of COPD. nocturnal 3L oxygen, prn day use On albuterol as needed [employer]. No maintenance inhalers Echo suggests elevated R heart pressures (10) Left shoulder pain: (11) SIRS (systemic inflammatory response syndrome): Plan: DVT prophylaxis: Heparin subcu Disposition: Transfer out of ICU CODE STATUS: DNR/DNI, discussed with daughter at bedside Admission and Anticipated Discharge Date Admission Date: December 12, 2021 Subjective Patient seen and examined today, reports overall improvement. Currently saturating well on nasal cannula oxygen Review of Systems Review of Systems: All systems reviewed are negative, apart from the ones contained in the history. Physical Exam Physical Exam: The patient is awake, alert and oriented 3, well developed and well nourished, normocephalic and atraumatic, lying in bed and in no acute distress. HEENT--PERRL, EOMI, mucous membranes and oropharynx mildly dry Neck--supple. No JVD. No bruits. Thyroid normal, trachea midline, no adenopathy. Heart--normal S1 and S2. No murmurs, rubs or gallops. Lungs--reduced air entry on auscultation Abdomen--normal bowel sounds and soft. Mild epigastric and left sided abdominal pain Extremities--no cyanosis or clubbing. No edema. Dermatologic--normal skin turgor, normal color, no abnormal lymph nodes, no rash. Neurologic--cranial nerves II through XII grossly intact. Rheumatologic--normal range of motion. Psychiatric--normal affect. Results & Data Results & Data ([facility]) Vital Signs (Past 12 Hours) Vital Signs Pulse Pulse Resp BP Pulse Ox 12/17/21 08:00 62 12/17/21 06:54 62 18 95 12/17/21 06:03 53 L 121/75 12/17/21 04:00 55 L 19 96 12/17/21 03:00 60 31 H 179/70 H 91 12/17/21 02:01 58 L 35 H 175/64 H 90 12/17/21 02:00 62 20 90 Laboratory Results Laboratory Results - last 24 hr 12/16/21 12/16/21 12/17/21 16:35 20:17 06:26 WBC 6.46 RBC 3.42 L Hgb 9.5 L Hct 32.9 L MCV 96.2 MCH 27.8 MCHC 28.9 L RDW Std Deviation 58.8 H RDW Coeff of Vikas 16.8 H Plt Count 453 H MPV 8.9 Immature Gran % (Auto) 0.6 Neut % (Auto) 60.0 Lymph % (Auto) 20.9 Hale % (Auto) 15.5 Eos % (Auto) 2.8 Baso % (Auto) 0.2 Neut # (Auto) 3.88 Lymph # (Auto) 1.35 Hale # (Auto) 1.00 H Eos # (Auto) 0.18 Baso # (Auto) 0.01 Immature Gran # (Auto) 0.04 H Sodium Potassium Chloride Carbon Dioxide Anion Gap BUN Creatinine Est Cr Clr Drug Dosing Est GFR ( Amer) Est GFR (Non-Af Amer) BUN/Creatinine Ratio Glucose POC Glucose 115 H 110 H Calcium Phosphorus Magnesium 12/17/21 12/17/21 12/17/21 06:26 07:29 11:30 WBC RBC Hgb Hct MCV MCH MCHC RDW Std Deviation RDW Coeff of Vikas Plt Count MPV Immature Gran % (Auto) Neut % (Auto) Lymph % (Auto) Hale % (Auto) Eos % (Auto) Baso % (Auto) Neut # (Auto) Lymph # (Auto) Hale # (Auto) Eos # (Auto) Baso # (Auto) Immature Gran # (Auto) Sodium 138 Potassium 3.4 L Chloride 96 L Carbon Dioxide 32 Anion Gap 10 BUN 26 H Creatinine 0.50 L Est Cr Clr Drug Dosing 118.1 Est GFR ( Amer) 113.7 Est GFR (Non-Af Amer) 98.1 BUN/Creatinine Ratio 52.0 H Glucose 112 H POC Glucose 115 H 125 H Calcium 8.5 Phosphorus 2.3 L D Magnesium 1.3 L PG Care Time/CCT Total # of Minutes Spent Total Time Spent with Patient: Total time spent is greater than 50% in coordination of care (as documented) at patient's floor/unit and/or counseling patient: Coding Level of Care Code 04010 Subseq Hosp Care Lvl 2 Diagnoses Respiratory failure with hypoxia and hypercapnia J96.01; J96.02 Chronicity: acute Pneumonia J18.9 Laterality: left Lung location: upper lobe of lung Pneumonia type: due to unspecified organism Septic shock A41.9; R65.21 Hyponatremia E87.1 SIRS (systemic inflammatory response syndrome) R65.10 Uncontrolled type 2 diabetes mellitus with hyperosmolarity, without long-term current use of insulin E11.00 Left shoulder pain M25.512 Hypertension I10 Hypertension type: essential hypertension Hyperlipidemia E78.5 Hyperlipidemia type: unspecified Chronic obstructive pulmonary disease J44.9 COPD type: unspecified COPD Anemia D64.9 Time Spent (min) 35 (1) Respiratory failure with hypoxia and hypercapnia Chronicity: acute Qualified Code(s): J96.01 - Acute respiratory failure with hypoxia; J96.02 - Acute respiratory failure with hypercapnia (2) Pneumonia Laterality: left Lung location: upper lobe of lung Pneumonia type: due to unspecified organism Qualified Code(s): J18.9 - Pneumonia, unspecified organism (3) Hypertension Hypertension type: essential hypertension Qualified Code(s): I10 - Essential (primary) hypertension (4) Hyperlipidemia Hyperlipidemia type: unspecified Qualified Code(s): E78.5 - Hyperlipidemia, unspecified (5) Chronic obstructive pulmonary disease COPD type: unspecified COPD Qualified Code(s): J44.9 - Chronic obstructive pulmonary disease, unspecified
[2021-12-17] MEDS ORDERED: ONDANSETRON INJ 2 MG/ML 2 ML VIAL IV PRN (13:59)
[2021-12-17] MEDS ORDERED: ONDANSETRON INJ 2 MG/ML 2 ML VIAL ONE (14:02)
[2021-12-17] MEDS: GABAPENTIN 300 MG CAP PO SCH ×2 (14:44→20:20)
[2021-12-17] MEDS: AMOXICILLIN/CLAVULANATE 875 MG TAB PO SCH (17:01)
[2021-12-17] MEDS: ATORVASTATIN 40 MG TAB PO SCH (20:19)
[2021-12-17] MEDS: QUEtiapine FUMARATE 100 MG TABLET PO SCH (20:19)
[2021-12-17] MEDS: MAGNESIUM OXIDE 400 MG TAB PO SCH (20:20)
[2021-12-17] MEDS ORDERED: SITagliptin PHOSPHATE 100 MG TAB PO SCH (21:00)
[2021-12-17] MEDS ORDERED: INSULIN GLARGINE SOLOSTAR 100 UNITS/ML 3 ML PEN SC SCH (21:00)
[2021-12-18] MEDS: ALBUTEROL 0.5% NEB SOLN 2.5 MG/0.5 ML VIAL NEB SCH ×4 (00:05→19:13)
--- NOTE | 2021-12-18 04:30 | Communication Note ---
Date of Service: December 18, 2021 Night resident note I was notified by RN around 03:30 that patient had desatted to the low 70s after being in the 90s and relatively comfortable most of the evening leading up to her acute worsening. Patients team notified me that she was in the ICU yesterday with respiratory distress which was felt to be secondary to a mucus pl ug, but had been transferred to med/tele after a reassuring clinical picture throughout the day. When I entered the room, patient in acute distress, working to breathe, and wearing BiPAP (12/6, patients normal setting, though this had just been escalated to 100% oxygen. Patient had also recently received a mucomist neb and an albuterol neb, and was wearing chest PT. Patient was satting in the 70s-80s, which improved with repositioning. Patient was afebrile, BP 129/54, HR 95, RR 20, and was satting as above. Alert, oriented, but in distress. Lung auscultation was notable for coarse rhonchi throughout and diminished left-sided sounds. No wheezing or crackles appreciated, no LE edema. Heart sounds distant. At this point, patients sat increased to 95 and she did look more comfortable. Patient maintained this sat even after deescalation of BiPAP to 50% (still 12/6). Before leaving, because patient is DNR/DNI, I discussed patients current treatment plan with her team. They noted BiPAP is in line with patients wishes (per a discussion earlier in the night) for symptom palliation and that patient did not want to withdraw care yet. Assessment: 71yo medically complex female who originally presented in septic shock with presumptive ABEL pneumonia and a known ABEL mucus plug presents in acute respiratory failure. Plan: Suspect desaturations were secondary to known mucus plug given sudden, sustained improvement without much intervention Very low suspicion for CHF exacerbation - will not adjust patient's lasix Continue current plan with oxygen, continued nebs, chest PT, and BiPAP with escalation as needed If patient desats further, will have a low threshold to reconsult critical care Cristofer Hunter MD, PGY-2 Resident Activity Tracking Resident Involvement: Resident Care Provided and [employer] Coverage Note Care Provided: Adult Hospital Medicine
[2021-12-18] MEDS: HEPARIN SOD 5,000 UNIT/0.5 ML VIAL SQ SCH ×3 (05:19→21:26)
--- NOTE | 2021-12-18 06:25 | XRay Report ---
XR chest 1V portable CLINICAL HISTORY: Respiratory failure. COMPARISON STUDY: Chest radiograph December 17, 2021. FINDINGS: Note is again made of complete opacification of the left lung with left lung volume loss. T race right pleural effusion is noted. Interstitial thickening within the right lung is present. Linea r density within the lateral right hemithorax reflects a portion of the scapula. No pneumothorax. IMPRESSION: 1. Persistent complete opacification of the left lung with volume loss. This favors left lung collaps e although superimposed pneumonia may be present. 2. Interstitial thickening within the right lung suggestive of pulmonary edema. Trace right pleural e ffusion. ACT 112: Negative or not required by law. Electronically signed by: Alan Sanches M.D. 12/18/2021 6:22 AM
[2021-12-18] MEDS: ACETYLCYSTEINE 20% INHAL SOLN 4ML ***DISPENSED BY RESP. INH SCH ×2 (07:02→19:13)
[2021-12-18 07:33] LABS: Basophils # (auto) 0.01 K/uL (0-0.2); Basophils % (auto) 0.1 %; Eosinophils % (auto) 3.9 %; Hematocrit (blood only) 34.2 % (37-47); Hemoglobin 9.6 g/dL (12.0-16.0); Immature Granulocytes # (auto) 0.05 K/uL (0.00-0.02); Immature Granulocytes % (auto) 0.7 %; Lymphocytes # (auto) 1.54 K/uL (1.2-3.4); Lymphocytes % (auto) 20.3 %; Mean Corpuscular Hemoglobin 27.4 pg (25-34); Mean Corpuscular Hgb Conc 28.1 g/dL (32-36); Mean Corpuscular Volume 97.4 fL (80-100); Mean Platelet Volume 8.9 fL (7.4-10.4); Monocytes # (auto) 0.81 K/uL (0.11-0.59); Monocytes % (auto) 10.7 %; Neutrophils # (auto) 4.89 K/uL (1.4-6.5); Neutrophils % (auto) 64.3 %; Platelet Count 455 K/uL (130-400); RDW Coefficient of Variation 16.7 % (11.5-14.5); RDW Standard Deviation 59.6 fL (36.4-46.3); Red Blood Count 3.51 M/uL (4.2-5.4)
[2021-12-18 07:54] LABS: BUN Creatinine Ratio 46.5 (10-20); Calcium 8.6 mg/dl (8.5-10.1); Creatinine Clr Calc Pharmacy 138.7 ml/min; Est GFR (African American) 119.4 ml/min; Est GFR (Non-African American) 103.1 ml/min; Magnesium 1.6 mg/dl (1.7-2.4); Phosphorus 2.9 mg/dl (2.5-4.9); Potassium 3.8 mmol/L (3.5-5.1)
[2021-12-18] MEDS: INSULIN ASPART PER UNIT SC SCH ×4 (08:04→20:45)
[2021-12-18] MEDS: lisinopril 5 MG TAB PO SCH (08:05)
[2021-12-18] MEDS: FUROSEMIDE 20 MG TAB PO SCH (08:05)
[2021-12-18] MEDS: GABAPENTIN 300 MG CAP PO SCH ×3 (08:05→20:44)
[2021-12-18] MEDS: MAGNESIUM OXIDE 400 MG TAB PO SCH ×4 (08:06→20:46)
[2021-12-18] MEDS: AMOXICILLIN/CLAVULANATE 875 MG TAB PO SCH ×2 (08:06→16:57)
[2021-12-18] MEDS: MULTI VIT W/MINERALS LIQUID 15 ML UDP PO SCH (08:06)
[2021-12-18] MEDS: INSULIN GLARGINE SOLOSTAR 100 UNITS/ML 3 ML PEN SC SCH (08:07)
--- NOTE | 2021-12-18 12:12 | Hospitalist Progress Note ---
Date of Service December 18, 2021 Assessment & Plan (1) Respiratory failure with hypoxia and hypercapnia: Plan: Traci is a 71-year-old female with Acute hypoxic respiratory failure with sepsis 2/2 left upper lobe pneumonia, presented with sepsis criteria with pneumonia on CT. Past medical history of type 2 diabetes, chronic anemia requiring transfusion and iron infusions , hypertension, hyperlipidemia, previous subdural hematoma Acute on chronic respiratory failure: Patient currently on baseline nasal oxygen Has been extubated Although last night, patient desaturated from suspected recurrence of mucous plug. Spontaneously her saturation improved (2) Pneumonia: Plan: Resolving \ extubated 12/14/21 now oxymask and bipap Required pressors, norepi gtt, precedex wenaed off both -anxiety worsens tachypnea, had bronchoscopy for a muvcus plug -currently on unasyn (3) Septic shock: Plan: 1 septic shock; Resolved. \ extubated 12/14/21 now oxymask and bipap Required pressors, norepi gtt, precedex wenaed off both -anxiety worsens tachypnea, had bronchoscopy for a muvcus plug -currently on unasyn (4) Hyponatremia: Plan: improving (5) Anemia: Plan: History of chronic anemia [facility], Transfused 1 unit packed blood cells for hemoglobin 7.0 with sepsis and troponin elevation -remains in the 9 gm range (6) Uncontrolled type 2 diabetes mellitus with hyperosmolarity, without long- term current use of insulin: Plan: Type II DM hyperglycemia protocol, on lantus and SSI Hold home metformin, Januvia A1c 4.4 will need to eval home program on discharge (7) Hypertension: (8) Hyperlipidemia: (9) Chronic obstructive pulmonary disease: Plan: History of COPD. 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 No maintenance inhalers Echo suggests elevated R heart pressures (10) Left shoulder pain: (11) SIRS (systemic inflammatory response syndrome): Plan: DVT prophylaxis: Heparin subcu Disposition: Possible discharge in the next 24 to 48 hours CODE STATUS: DNR/DNI, discussed with daughter at bedside Admission and Anticipated Discharge Date Admission Date: December 12, 2021 Subjective Patient seen and examined today, reports overall improvement. Currently saturating well on nasal cannula oxygen Review of Systems Review of Systems: All systems reviewed are negative, apart from the ones contained in the history. Physical Exam Physical Exam: The patient is awake, alert and oriented 3, well developed and well nourished, normocephalic and atraumatic, lying in bed and in no acute distress. HEENT--PERRL, EOMI, mucous membranes and oropharynx mildly dry Neck--supple. No JVD. No bruits. Thyroid normal, trachea midline, no adenopathy. Heart--normal S1 and S2. No murmurs, rubs or gallops. Lungs--reduced air entry on auscultation Abdomen--normal bowel sounds and soft. Mild epigastric and left sided abdominal pain Extremities--no cyanosis or clubbing. No edema. Dermatologic--normal skin turgor, normal color, no abnormal lymph nodes, no rash. Neurologic--cranial nerves II through XII grossly intact. Rheumatologic--normal range of motion. Psychiatric--normal affect. Results & Data Results & Data ([facility]) Vital Signs (Past 12 Hours) Vital Signs Temp Pulse Pulse Pulse Resp BP Pulse Ox 12/18/21 08:00 66 12/18/21 07:10 68 23 99 12/18/21 07:04 68 23 99 12/18/21 06:55 97.7 F 65 20 138/78 99 12/18/21 03:50 75 33 H 95 12/18/21 03:33 98.1 F 74 22 129/54 L PG Care Time/CCT Total # of Minutes Spent Total Time Spent with Patient: Total time spent is greater than 50% in coordination of care (as documented) at patient's floor/unit and/or counseling patient: Coding Level of Care Code 23675 Subseq Hosp Care Lvl 2 Diagnoses Respiratory failure with hypoxia and hypercapnia J96.01; J96.02 Chronicity: acute Pneumonia J18.9 Laterality: left Lung location: upper lobe of lung Pneumonia type: due to unspecified organism Septic shock A41.9; R65.21 Hyponatremia E87.1 Anemia D64.9 Uncontrolled type 2 diabetes mellitus with hyperosmolarity, without long-term current use of insulin E11.00 Hypertension I10 Hypertension type: essential hypertension Hyperlipidemia E78.5 Hyperlipidemia type: unspecified Chronic obstructive pulmonary disease J44.9 COPD type: unspecified COPD Left shoulder pain M25.512 SIRS (systemic inflammatory response syndrome) R65.10 Time Spent (min) 35 (1) Respiratory failure with hypoxia and hypercapnia Chronicity: acute Qualified Code(s): J96.01 - Acute respiratory failure with hypoxia; J96.02 - Acute respiratory failure with hypercapnia (2) Pneumonia Laterality: left Lung location: upper lobe of lung Pneumonia type: due to unspecified organism Qualified Code(s): J18.9 - Pneumonia, unspecified organism (3) Hypertension Hypertension type: essential hypertension Qualified Code(s): I10 - Essential (primary) hypertension (4) Hyperlipidemia Hyperlipidemia type: unspecified Qualified Code(s): E78.5 - Hyperlipidemia, unspecified (5) Chronic obstructive pulmonary disease COPD type: unspecified COPD Qualified Code(s): J44.9 - Chronic obstructive pulmonary disease, unspecified
[2021-12-18] MEDS: QUEtiapine FUMARATE 100 MG TABLET PO SCH (20:43)
[2021-12-18] MEDS: ATORVASTATIN 40 MG TAB PO SCH (20:43)
[2021-12-19] MEDS: ALBUTEROL 0.5% NEB SOLN 2.5 MG/0.5 ML VIAL NEB SCH ×4 (00:36→19:16)
[2021-12-19] MEDS: HEPARIN SOD 5,000 UNIT/0.5 ML VIAL SQ SCH ×3 (05:38→21:58)
[2021-12-19] MEDS: ACETYLCYSTEINE 20% INHAL SOLN 4ML ***DISPENSED BY RESP. INH SCH (06:59)
[2021-12-19] MEDS: INSULIN ASPART PER UNIT SC SCH ×4 (08:44→21:50)
[2021-12-19] MEDS: MULTI VIT W/MINERALS LIQUID 15 ML UDP PO SCH (09:25)
[2021-12-19] MEDS: FUROSEMIDE 20 MG TAB PO SCH (09:25)
[2021-12-19] MEDS: INSULIN GLARGINE SOLOSTAR 100 UNITS/ML 3 ML PEN SC SCH (09:26)
[2021-12-19] MEDS: GABAPENTIN 300 MG CAP PO SCH ×3 (09:26→21:56)
[2021-12-19] MEDS: MAGNESIUM OXIDE 400 MG TAB PO SCH ×2 (09:26→22:00)
[2021-12-19] MEDS: AMOXICILLIN/CLAVULANATE 875 MG TAB PO SCH (09:26)
[2021-12-19] MEDS: lisinopril 5 MG TAB PO SCH (09:27)
--- NOTE | 2021-12-19 10:10 | Pharmacy Report ---
Pharmacy Glycemic Short Note 2 - Date of Service December 19, 2021 - Glycemic Short BSG Results (Last 24 hours): 12/18/21 12/18/21 12/18/21 11:01 16:36 20:38 POC Glucose 98 205 H 114 H 12/19/21 07:18 POC Glucose 116 H OUTPATIENT ANTIDIABETIC REGIMEN: * Lantus 35 units SQ AM * Metformin 850 PO TIDM (previous notes state 1700 mg AM + 850 mg PM) * Januvia 100 mg PO HS * HbA1c 4.4% ASSESSMENT: 12/19 * BSG's decently controlled, although one BSG yesterday >180 mg/dL occurring after loosening of CHO ratio in response to the prior BSG slightly <100 mg/dL * Will tighten CHO ratio, but not quite back to previous as HS BSG was wnl despite consuming a significant amount of CHO with loosened CHO ratio at dinner * AM fasting BSG's good - no change to Lantus 12/16: * BSGs within goal the last 24h ([phone] (fasting)). Patient received 20 units of basal yesterday and 3 units of bolus insulin. * Patient has remained NPO for nearly 72hours with BSGs down-trending. Decreased Lantus dose to 10 units this AM --> diet ordered, however intake not yet documented. Plan for an HS Lantus scale to provide additional basal if BSGs trend up throughout the day if needed. * No change to Novolog. 12/15: * Patient's BSGs yesterday were [phone] mg/dL receiving 46 units of insulin, 20 of which were basal. * Fasting BSG continued to improve today at 148. Will continue with current lantus dose and change novolog order from q4 to q6. * Patient remains NPO. 12/13 * 71 yo F admitted on 12/12/21 secondary to acute hypoxic respiratory failure requiring intubation and mechanical ventilation. Pharmacy was consulted today to assist with inpatient glycemic management. Most recent HbA1c in August 2021 was 5.0%. Repeat HbA1c is pending. * Stressors include: mechanical ventilation, IV solumedrol 100 mg BID, Cefepime for pneumonia, and addition of trickle feeds today. Pressors were titrated off today. * Will start Novolog based on weight and stress of 3 which is similar to previous admission data. Will give a one time Lantus dose today. Monitor steroid dose and tube feed rate in the AM for further Lantus dosing. PLAN FOR INPATIENT GLYCEMIC CONTROL: * Hold outpatient oral diabetes medications * Basal insulin * Lantus 10 units SQ qam * Bolus insulin * NovoLog per scale ACHS or Q6hrs while NPO * Goal Range: Low 110 mg/dL - High 140 mg/dL * Correction Factor: 12 mg/dL/unit * Nutritional / Prandial insulin per carb ratio of 1 unit per 4.5 grams CHO consumed
--- NOTE | 2021-12-19 16:56 | Discharge Summary ---
Date of Service December 19, 2021 Admission HPI Per Admitting Provider Patient is seen at the bedside with her daughter present. Patient is intubated and ventilated, has received fentanyl for pain control/sedation and history cannot be obtained from patient. Cooperative patient's family patient has been pursuing outpatient work-up for anemia with persistent progressive fatigue. Possible GIOrigin of downtrending hemoglobin, however patient has never had melena/bright red blood per rectum and has had negative occult blood tests. Has seen [facility] as outpatient patient had approximately 3 days of progressively worsening fatigue and shortness of breath, and was unable to move around the house with her normal levels of function. Did have an episode of becoming very sleepy, and could not get self to stand and slumped to the floor while attempting to use the bathroom without striking her head. EMS was called and patient was noted to have oxygen saturations in the 50s. Was hypotensive in the ER, recieved crystalloid hydration and push doses of epi --> norepi with subsequent improvement in pressures. CT shows left upper lobe pneumonia. CT head without hemorrhage or infarct. Patient was intubated and has had about 1 hour of sedation with fentanyl 50 mcg. Initial ABG with pH of 7.31 and hypercarbic. She does have history of COPD without PFTs available. history of using a rescue inhaler, no daily inhalers per patient's daughter. 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 Also has a history of L3 compression fracture and chronic back pain. Has a history of subdural hematoma after a fall in 2020. This remained stable on her prior hospitalization and did not have neurologic worsening or complications from this at the time Medical History: Reviewed Medications: Reviewed Surgical History: Reviewed Allergies: NKDA. Adhesive/latex as noted Social History: 0.5ppd tobacco use, no etoh use, no recreational drug use, no herbal/naturopathic medication use Code Status: DNR/DNI. Principal Diagnosis sepsis from PNA Discharge Exam The patient is awake, alert and oriented 3, well developed and well nourished, normocephalic and atraumatic, lying in bed and in no acute distress. HEENT--PERRL, EOMI, mucous membranes and oropharynx mildly dry Neck--supple. No JVD. No bruits. Thyroid normal, trachea midline, no adenopathy. Heart--normal S1 and S2. No murmurs, rubs or gallops. Lungs--reduced air entry on auscultation Abdomen--normal bowel sounds and soft. Mild epigastric and left sided abdominal pain Extremities--no cyanosis or clubbing. No edema. Dermatologic--normal skin turgor, normal color, no abnormal lymph nodes, no rash. Neurologic--cranial nerves II through XII grossly intact. Rheumatologic--normal range of motion. Psychiatric--normal affect. Discharge Data Allergies Allergy/AdvReac Type Severity Reaction Status Date / Time latex Allergy Severe 2ND DEGREE Verified 08/25/21 07:43 BURN FROM BANDAGE adhesive Allergy Intermediate RASH Verified 08/25/21 07:43 Consultations 12/12/21 07:48 ED Decision to Admit Stat 12/12/21 07:49 Consult Diver Pumper Stat 12/12/21 09:29 Consult Diver Pumper Routine Ordered Studies 12/12/21 06:11 CT chest diagnostic wo con Stat CT head/brain wo con Stat 12/12/21 09:56 US point of care ultrasound Routine 12/15/21 09:44 US point of care ultrasound Routine Hospital Course (1) Respiratory failure with hypoxia and hypercapnia: Traci is a 71-year-old female with Acute hypoxic respiratory failure with sepsis 2/2 left upper lobe pneumonia, presented with sepsis criteria with pneumonia on CT. Past medical history of type 2 diabetes, chronic anemia requiring transfusion and iron infusions , hypertension, hyperlipidemia, previous subdural hematoma Acute on chronic respiratory failure: Patient currently on baseline nasal oxygen Has been extubated Although last night, patient desaturated from suspected recurrence of mucous plug. Spontaneously her saturation improved (2) Pneumonia: Resolving \ extubated 12/14/21 now oxymask and bipap Required pressors, norepi gtt, precedex wenaed off both -anxiety worsens tachypnea, had bronchoscopy for a muvcus plug -currently on unasyn, will discharge on PO Augmentin for 7 days (3) Septic shock: 1 septic shock; Resolved. \ extubated 12/14/21 now oxymask and bipap Required pressors, norepi gtt, precedex wenaed off both -anxiety worsens tachypnea, had bronchoscopy for a muvcus plug -currently on unasyn (4) Hyponatremia: improving (5) Anemia: History of chronic anemia [facility], Transfused 1 unit packed blood cells for hemoglobin 7.0 with sepsis and troponin elevation -remains in the 9 gm range (6) Uncontrolled type 2 diabetes mellitus with hyperosmolarity, without long- term current use of insulin: Type II DM hyperglycemia protocol, on lantus and SSI Hold home metformin, Januvia A1c 4.4 will need to eval home program on discharge (7) Hypertension: (8) Hyperlipidemia: (9) Chronic obstructive pulmonary disease: History of COPD. 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 Echo suggests elevated R heart pressures (10) Left shoulder pain: (11) SIRS (systemic inflammatory response syndrome): DVT prophylaxis: Heparin subcu Disposition: Possible discharge in the next 24 to 48 hours CODE STATUS: DNR/DNI, discussed with daughter at bedside Total Time Total Time Spent Total Time Spent (In Minutes): 35 Discharge Plan Discharge Items Patient Disposition: Home - Home Health Services Reason For Visit: AHRF, ABEL PNA Discharge Diagnosis: sepsis from PNA Activity: Resume your previous activity Non-emergency contact: Primary Care Provider Call non-emergency contact if: you have any medication questions Follow-up/Referrals: Kristal Pham CRNP [Primary Care Provider] - Diet: Regular Addtl Attending Provider Instructions: please make appointment to follow up with your regular PCP Pending Studies at Discharge: No Stand-Alone Forms: My [facility] [employer], Smoking Cessation Medications and DC Order Prescriptions: New amoxicillin-pot clavulanate [Augmentin] 500-125 mg tablet 1 tab PO BID 7 Days Qty: 14 RF: 0 Continued atorvastatin [Lipitor] 80 mg Tablet 80 mg PO HS RF: 0 aspirin [Malcom Low Dose Aspirin] 81 mg Tablet,Delayed Release (Dr/Ec) 81 mg PO QPM RF: 0 gabapentin 300 mg Capsule 300 mg PO TID RF: 0 Januvia 100 mg tablet 100 mg PO QPM RF: 0 insulin glargine [Lantus Solostar U-100 Insulin] 100 unit/mL (3 mL) insulin pen 35 unit SC HS RF: 0 metformin 850 mg tablet 850 mg PO TIDM RF: 0 quetiapine 100 mg tablet 150 mg PO HS RF: 0 lisinopril 5 mg tablet 5 mg PO DAILY RF: 0 furosemide 20 mg tablet 20 mg PO DAILY RF: 0 lorazepam 1 mg tablet 1 mg PO BID PRN (Reason: Anxiety) RF: 0 Discharge Orders: Discharge Order (Routine); Ordered 12/19/21 Ordered By: Karin Hebert Admission Data Admit Date/Time: 12/12/21 07:48 Attending Provider: Karin Hebert Admit Provider: Kaiden Grimes Primary Care Provider: Kristal Pham Other Providers: Tawanda Dang ; Kaiden Grimes ; [facility] ; [facility], [facility] Coding Level of Care Code D/C DAY MANAGEMENT >30 MINS Diagnoses Respiratory failure with hypoxia and hypercapnia J96.01; J96.02 Chronicity: acute Pneumonia J18.9 Laterality: left Lung location: upper lobe of lung Pneumonia type: due to unspecified organism Septic shock A41.9; R65.21 Hyponatremia E87.1 Anemia D64.9 Uncontrolled type 2 diabetes mellitus with hyperosmolarity, without long-term current use of insulin E11.00 Hypertension I10 Hypertension type: essential hypertension Hyperlipidemia E78.5 Hyperlipidemia type: unspecified Chronic obstructive pulmonary disease J44.9 COPD type: unspecified COPD Left shoulder pain M25.512 SIRS (systemic inflammatory response syndrome) R65.10 Time Spent (min) 35
[2021-12-19] MEDS ORDERED: bisacodyL 10 MG SUPP PR ONE ×2 (18:46→22:30)
[2021-12-19] MEDS ORDERED: POLYETHYLENE (MIRALAX) 17 GM PACK PO ONE ×2 (18:47→22:30)
[2021-12-19] MEDS: ATORVASTATIN 40 MG TAB PO SCH (21:56)
[2021-12-19] MEDS: QUEtiapine FUMARATE 100 MG TABLET PO SCH (21:56)
[2021-12-20] MEDS: ALBUTEROL 0.5% NEB SOLN 2.5 MG/0.5 ML VIAL NEB SCH ×2 (00:03→06:55)
[2021-12-20] MEDS: HEPARIN SOD 5,000 UNIT/0.5 ML VIAL SQ SCH (05:26)
[2021-12-20] MEDS: lisinopril 5 MG TAB PO SCH (07:55)
[2021-12-20] MEDS: FUROSEMIDE 20 MG TAB PO SCH (07:55)
[2021-12-20] MEDS: MULTI VIT W/MINERALS LIQUID 15 ML UDP PO SCH (07:56)
[2021-12-20] MEDS: GABAPENTIN 300 MG CAP PO SCH (07:56)
[2021-12-20] MEDS: MAGNESIUM OXIDE 400 MG TAB PO SCH (07:57)
[2021-12-20] MEDS: INSULIN ASPART PER UNIT SC SCH (08:00)
[2021-12-20] MEDS: INSULIN GLARGINE SOLOSTAR 100 UNITS/ML 3 ML PEN SC SCH (08:00)
[2021-12-20] MEDS ORDERED: POLYETHYLENE (MIRALAX) 17 GM PACK PO ONE (09:00)
--- NOTE | 2021-12-20 11:50 | Hospitalist Progress Note ---
Date of Service December 19, 2021 Assessment & Plan (1) Respiratory failure with hypoxia and hypercapnia: Plan: Traci is a 71-year-old female with Acute hypoxic respiratory failure with sepsis 2/2 left upper lobe pneumonia, presented with sepsis criteria with pneumonia on CT. Past medical history of type 2 diabetes, chronic anemia requiring transfusion and iron infusions , hypertension, hyperlipidemia, previous subdural hematoma Acute on chronic respiratory failure: Patient currently on baseline nasal oxygen Has been extubated Although last night, patient desaturated from suspected recurrence of mucous plug. Spontaneously her saturation improved (2) Pneumonia: Plan: Resolving \ extubated 12/14/21 now oxymask and bipap Required pressors, norepi gtt, precedex wenaed off both -anxiety worsens tachypnea, had bronchoscopy for a muvcus plug -currently on unasyn, will discharge on PO Augmentin for 7 days (3) Septic shock: Plan: 1 septic shock; Resolved. \ extubated 12/14/21 now oxymask and bipap Required pressors, norepi gtt, precedex wenaed off both -anxiety worsens tachypnea, had bronchoscopy for a muvcus plug -currently on unasyn (4) Hyponatremia: Plan: improving (5) Anemia: Plan: History of chronic anemia [facility], Transfused 1 unit packed blood cells for hemoglobin 7.0 with sepsis and troponin elevation -remains in the 9 gm range (6) Uncontrolled type 2 diabetes mellitus with hyperosmolarity, without long- term current use of insulin: Plan: Type II DM hyperglycemia protocol, on lantus and SSI Hold home metformin, Januvia A1c 4.4 will need to eval home program on discharge (7) Hypertension: (8) Hyperlipidemia: (9) Chronic obstructive pulmonary disease: Plan: History of COPD. 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 Currently saturating well on nasal cannula oxygen Review of Systems Review of Systems: All systems reviewed are negative, apart from the ones contained in the history. Physical Exam Physical Exam: The patient is awake, alert and oriented 3, well developed and well nourished, normocephalic and atraumatic, lying in bed and in no acute distress. HEENT--PERRL, EOMI, mucous membranes and oropharynx mildly dry Neck--supple. No JVD. No bruits. Thyroid normal, trachea midline, no adenopathy. Heart--normal S1 and S2. No murmurs, rubs or gallops. Lungs--reduced air entry on auscultation Abdomen--normal bowel sounds and soft. Mild epigastric and left sided abdominal pain Extremities--no cyanosis or clubbing. No edema. Dermatologic--normal skin turgor, normal color, no abnormal lymph nodes, no nan h. Neurologic--cranial nerves II through XII grossly intact. Rheumatologic--normal range of motion. Psychiatric--normal affect. Results & Data Results & Data ([facility]) Vital Signs (Past 12 Hours) Vital Signs Temp Pulse Pulse Pulse Resp BP Pulse Ox 12/20/21 10:59 98.4 F 69 65 20 159/68 H 97 12/20/21 07:32 98.4 F 69 20 159/68 H 97 12/20/21 06:55 72 18 97 12/20/21 03:23 99.3 F 72 22 170/75 H 95 12/20/21 02:45 65 20 98 12/20/21 00:04 73 19 92 12/20/21 00:01 74 19 94 PG Care Time/CCT Total # of Minutes Spent Total Time Spent with Patient: Total time spent is greater than 50% in coordination of care (as documented) at patient's floor/unit and/or counseling patient: Coding Level of Care Code 76662 Subseq Hosp Care Lvl 2 Diagnoses Respiratory failure with hypoxia and hypercapnia J96.01; J96.02 Chronicity: acute Pneumonia J18.9 Laterality: left Lung location: upper lobe of lung Pneumonia type: due to unspecified organism Septic shock A41.9; R65.21 Hyponatremia E87.1 Anemia D64.9 Uncontrolled type 2 diabetes mellitus with hyperosmolarity, without long-term current use of insulin E11.00 Hypertension I10 Hypertension type: essential hypertension Hyperlipidemia E78.5 Hyperlipidemia type: unspecified Chronic obstructive pulmonary disease J44.9 COPD type: unspecified COPD Left shoulder pain M25.512 SIRS (systemic inflammatory response syndrome) R65.10 Time Spent (min) 35 (1) Respiratory failure with hypoxia and hypercapnia Chronicity: acute Qualified Code(s): J96.01 - Acute respiratory failure with hypoxia; J96.02 - Acute respiratory failure with hypercapnia (2) Pneumonia Laterality: left Lung location: upper lobe of lung Pneumonia type: due to unspecified organism Qualified Code(s): J18.9 - Pneumonia, unspecified organism (3) Hypertension Hypertension type: essential hypertension Qualified Code(s): I10 - Essential (primary) hypertension (4) Hyperlipidemia Hyperlipidemia type: unspecified Qualified Code(s): E78.5 - Hyperlipidemia, unspecified (5) Chronic obstructive pulmonary disease COPD type: unspecified COPD Qualified Code(s): J44.9 - Chronic obstructive pulmonary disease, unspecified
--- NOTE | 2021-12-20 11:52 | Discharge Summary ---
Date of Service December 20, 2021 Admission HPI Per Admitting Provider Patient is seen at the bedside with her daughter present. Patient is intubated and ventilated, has received fentanyl for pain control/sedation and history cannot be obtained from patient. Cooperative patient's family patient has been pursuing outpatient work-up for anemia with persistent progressive fatigue. Possible GIOrigin of downtrending hemoglobin, however patient has never had melena/bright red blood per rectum and has had negative occult blood tests. Has seen [facility] as [facility] patient had approximately 3 days of progressively worsening fatigue and shortness of breath, and was unable to move around the house with her normal levels of function. Did have an episode of becoming very sleepy, and could not get self to stand and slumped to the floor while attempting to use the bathroom without striking her head. EMS was called and patient was noted to have oxygen saturations in the 50s. Was hypotensive in the ER, recieved crystalloid hydration and push doses of epi --> norepi with subsequent improvement in pressures. CT shows left upper lobe pneumonia. CT head without hemorrhage or infarct. Patient was intubated and has had about 1 hour of sedation with fentanyl 50 mcg. Initial ABG with pH of 7.31 and hypercarbic. She does have history of COPD without PFTs available. history of using a rescue inhaler, no daily inhalers per patient's daughter. 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 Also has a history of L3 compression fracture and chronic back pain. Has a history of subdural hematoma after a fall in 2020. This remained stable on her prior hospitalization and did not have neurologic worsening or complications from this at the time Medical History: Reviewed Medications: Reviewed Surgical History: Reviewed Allergies: NKDA. Adhesive/latex as noted Social History: 0.5ppd tobacco use, no etoh use, no recreational drug use, no herbal/naturopathic medication use Code Status: DNR/DNI. Principal Diagnosis sepsis from PNA Discharge Exam The patient is awake, alert and oriented 3, well developed and well nourished, normocephalic and atraumatic, lying in bed and in no acute distress. HEENT--PERRL, EOMI, mucous membranes and oropharynx mildly dry Neck--supple. No JVD. No bruits. Thyroid normal, trachea midline, no adenopathy. Heart--normal S1 and S2. No murmurs, rubs or gallops. Lungs--reduced air entry on auscultation Abdomen--normal bowel sounds and soft. Mild epigastric and left sided abdominal pain Extremities--no cyanosis or clubbing. No edema. Dermatologic--normal skin turgor, normal color, no abnormal lymph nodes, no rash. Neurologic--cranial nerves II through XII grossly intact. Rheumatologic--normal range of motion. Psychiatric--normal affect. Discharge Data Allergies Allergy/AdvReac Type Severity Reaction Status Date / Time latex Allergy Severe 2ND DEGREE Verified 08/25/21 07:43 BURN FROM BANDAGE adhesive Allergy Intermediate RASH Verified 08/25/21 07:43 Consultations 12/12/21 07:48 ED Decision to Admit Stat 12/12/21 07:49 Consult Instrumentation Tech Stat 12/12/21 09:29 Consult Instrumentation Tech Routine Ordered Studies 12/12/21 06:11 CT chest diagnostic wo con Stat CT head/brain wo con Stat 12/12/21 09:56 US point of care ultrasound Routine 12/15/21 09:44 US point of care ultrasound Routine Hospital Course (1) Respiratory failure with hypoxia and hypercapnia: Traci is a 71-year-old female with Acute hypoxic respiratory failure with sepsis 2/2 left upper lobe pneumonia, presented with sepsis criteria with pneumonia on CT. Past medical history of type 2 diabetes, chronic anemia requiring transfusion and iron infusions , hypertension, hyperlipidemia, previous subdural hematoma Acute on chronic respiratory failure: Patient currently on baseline nasal oxygen Has been extubated Although last night, patient desaturated from suspected recurrence of mucous plug. Spontaneously her saturation improved (2) Pneumonia: Resolving \ extubated 12/14/21 now oxymask and bipap Required pressors, norepi gtt, precedex wenaed off both -anxiety worsens tachypnea, had bronchoscopy for a muvcus plug -currently on unasyn, will discharge on PO Augmentin for 7 days (3) Septic shock: 1 septic shock; Resolved. \ extubated 12/14/21 now oxymask and bipap Required pressors, norepi gtt, precedex wenaed off both -anxiety worsens tachypnea, had bronchoscopy for a muvcus plug -currently on unasyn (4) Hyponatremia: improving (5) Anemia: History of chronic anemia Follows [facility], Transfused 1 unit packed blood cells for hemoglobin 7.0 with sepsis and troponin elevation -remains in the 9 gm range (6) Uncontrolled type 2 diabetes mellitus with hyperosmolarity, without long- term current use of insulin: Type II DM hyperglycemia protocol, on lantus and SSI Hold home metformin, Januvia A1c 4.4 will need to eval home program on discharge (7) Hypertension: (8) Hyperlipidemia: (9) Chronic obstructive pulmonary disease: History of COPD. 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 No maintenance inhalers Echo suggests elevated R heart pressures (10) Left shoulder pain: (11) SIRS (systemic inflammatory response syndrome): DVT prophylaxis: Heparin subcu Disposition: Possible discharge in the next 24 to 48 hours CODE STATUS: DNR/DNI, discussed with daughter at bedside Total Time Total Time Spent Total Time Spent (In Minutes): 35 Discharge Plan Discharge Items Patient Disposition: Home - Home Health Services Reason For Visit: AHRF, ABEL PNA Discharge Diagnosis: sepsis from PNA Activity: Resume your previous activity Non-emergency contact: Primary Care Provider Call non-emergency contact if: you have any medication questions Follow-up/Referrals: Kristal Pham CRNP [Primary Care Provider] - Diet: Regular Addtl Attending Provider Instructions: please make appointment to follow up with your regular PCP Pending Studies at Discharge: No Stand-Alone Forms: My [facility], Smoking Cessation Medications and DC Order Prescriptions: New amoxicillin-pot clavulanate [Augmentin] 500-125 mg tablet 1 tab PO BID 7 Days Qty: 14 RF: 0 Continued atorvastatin [Lipitor] 80 mg Tablet 80 mg PO HS RF: 0 aspirin [Malcom Low Dose Aspirin] 81 mg Tablet,Delayed Release (Dr/Ec) 81 mg PO QPM RF: 0 gabapentin 300 mg Capsule 300 mg PO TID RF: 0 Januvia 100 mg tablet 100 mg PO QPM RF: 0 insulin glargine [Lantus Solostar U-100 Insulin] 100 unit/mL (3 mL) insulin pen 35 unit SC HS RF: 0 metformin 850 mg tablet 850 mg PO TIDM RF: 0 quetiapine 100 mg tablet 150 mg PO HS RF: 0 lisinopril 5 mg tablet 5 mg PO DAILY RF: 0 furosemide 20 mg tablet 20 mg PO DAILY RF: 0 lorazepam 1 mg tablet 1 mg PO BID PRN (Reason: Anxiety) RF: 0 Discharge Orders: Discharge Order (Routine); Ordered 12/19/21 Ordered By: Karin Hebert Admission Data Admit Date/Time: 12/12/21 07:48 Attending Provider: Karin Hebert Admit Provider: Kaiden Grimes Primary Care Provider: Kristal Pham Other Providers: Tawanda Dang ; Kaiden Grimes ; [facility] ; [facility],Home Health Other Interventions: Discharge Summary Assessment (RN) Last Done: 12/20/21 10:59 Coding Level of Care Code D/C DAY MANAGEMENT >30 MINS Diagnoses Respiratory failure with hypoxia and hypercapnia J96.01; J96.02 Chronicity: acute Pneumonia J18.9 Laterality: left Lung location: upper lobe of lung Pneumonia type: due to unspecified organism Septic shock A41.9; R65.21 Hyponatremia E87.1 Anemia D64.9 Uncontrolled type 2 diabetes mellitus with hyperosmolarity, without long-term current use of insulin E11.00 Hypertension I10 Hypertension type: essential hypertension Hyperlipidemia E78.5 Hyperlipidemia type: unspecified Chronic obstructive pulmonary disease J44.9 COPD type: unspecified COPD Left shoulder pain M25.512 SIRS (systemic inflammatory response syndrome) R65.10 Time Spent (min) 35
== END 2021-12-20 12:42 | disposition home health service (06) | DRG 871 ==
LOC: ED 05:27 → 1E 07:48 → SUATTDRO 07:48 → 1E 08:21 → 2E 12-17 15:04

== ENCOUNTER 2022-05-23 13:17 | Inpatient (IN) ==
[2022-05-23] MEDS ORDERED: SODIUM CHLORIDE 0.9% 1000ML 500 ML IV SCH (14:00)
--- NOTE | 2022-05-23 14:01 | Emergency Department Note ---
Impression & Plan Acute dyspnea, Pneumonia, Acute respiratory failure with hypoxia and hypercarbia, Elevated lactic acid level ED Provider Note HISTORY OF PRESENT ILLNESS: Patient is a 71-year-old female presenting with cough and shortness of breath. Patient reports that she normally wears 4 to 5 L supplemental oxygen at baseline. Over the last 3 days since her acute illness she has been wearing 5 L consistently and still feeling very short of breath. Has had a cough that has been nonproductive. No reported fevers at home. Denies any recent travel or recent exposure to sick contacts. Denies any chest pain. Denies any nausea or vomiting. ROS: Constitutional: No fever, chills, or weakness Skin: No rash or diaphoresis HENT: No headaches or congestion Eyes: No vision changes Cardio: No chest pain, palpitations or leg swelling Respiratory: +cough; +shortness of breath GI: No nausea, vomiting, diarrhea, constipation : No dysuria, polyuria MSK: No joint or back pain Neuro: No loss of sensation, confusion, focal deficits, numbness, tingling Psychiatric: No mood changes PHYSICAL EXAM: Constitutional: Patient appears in no acute distress. Morbidly obese HENT: Head: Normocephalic and atraumatic. Eyes: EOMI, PERRL Mouth/Throat: Mucous membranes moist. Neck: Trachea midline. Neck supple. Cardiovascular: RRR, No murmurs, rubs or gallops. Intact distal pulses. Pulmonary/Chest: Coarse breath sounds bilaterally. On 5L NC. Abdominal: BS +. Abdomen soft, no tenderness, rebound or guarding. Back: No midline spinal tenderness, no paraspinal tenderness, no CVA tenderness. Musculoskeletal: No edema, tenderness or deformity noted. Skin: Warm and dry. No rash, erythema, pallor or cyanosis Psychiatric: Appropriate mood and affect for situation. Neurological: Alert and keenly responsive. CN II-XII grossly intact, moving all extremities equally and fully. MDM: - Vitals signs showed borderline tachycardia. - Laboratory workup showed borderline elevated WBC (10.53); chronic anemia (Hgb 9.7 - though down from 12 just one week ago); hyperkalemia (K 5.5); elevated lactate (2.5); slight hypomagnesemia (Mg 1.6); normal procalcitonin; normal troponin - ABG shows respiratory acidosis (pH 7.33 and PCO2 61). Patient started on BiPAP - Blood cultures obtained. Started on IV cefepime for antibiotic coverage. - Given 1L NS. - Hospitalist Dr. Grimes consulted for admission. - Patient admitted to hospitalist service for further evaluation and management. ASSESSMENT AND PLAN: Diagnosis: dyspnea; acute hypoxic and hypercarbic respiratory failure; elevated lactate; hyperkalemia Plan: admit Past Med/Surg History Medical History Anxiety Chronic obstructive pulmonary disease Complicated UTI (urinary tract infection) Depression Diabetes mellitus, type 2 NIDDM Glaucoma WELL CONTROLLED H/O defect LEFT ARM Hyperlipidemia Hypertension Hyponatremia Palliative care encounter Peripheral neuropathy BILATERAL FEET Shortness of breath Temporomandibular joint disorder NO PROBLEMS RECENTLY. Surgical History History of appendectomy History of cholecystectomy History of colonoscopy History of incision and drainage UMBILICAL ABSCESS History of total shoulder replacement RIGHT Hx of umbilical hernia repair X4 -- WEARS SUPPORT BAND DAILY S/P JALIL-BSO S/P tonsillectomy and adenoidectomy Family History Mother Diabetes mellitus, type 2 Aunt Diabetes mellitus, type 2 Social History Smoking Status: Never smoker Tobacco Type: Cigarettes Cigarettes Per Day: 2 PPD X 50 YEARS AGO; Second Hand Exposure: No; Hx Alcohol Use: No Hx Substance Use: No Preferred Language: Luxembourgish Communication Ability: Impaired 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 Beliefs That Will Affect Care: None marital status: Current Living Situation: Spouse current occupational status: retired Feels Safe at Home: Yes Assistive Devices: Walker and Wheelchair Allergies Allergies Allergy/AdvReac Type Severity Reaction Status Date / Time latex Allergy Severe 2ND DEGREE Verified 08/25/21 07:43 BURN FROM BANDAGE adhesive Allergy Intermediate RASH Verified 08/25/21 07:43 Home Meds Home Medications Medication Instructions Recorded Confirmed aspirin 81 mg tablet,delayed 81 mg PO QPM 10/30/18 12/13/21 release (Malcom Low Dose Aspirin) atorvastatin 80 mg tablet (Lipitor) 80 mg PO HS 10/30/18 12/13/21 gabapentin 300 mg capsule 300 mg PO TID 10/30/18 12/13/21 sitagliptin phosphate 100 mg 100 mg PO QPM 01/08/21 12/13/21 tablet (Januvia) insulin glargine 100 unit/mL (3 35 unit SC HS 08/25/21 12/13/21 mL) subcutaneous pen (Lantus Solostar U-100 Insulin) furosemide 20 mg tablet 20 mg PO DAILY 12/13/21 12/13/21 lisinopril 5 mg tablet 5 mg PO DAILY 12/13/21 12/13/21 lorazepam 1 mg tablet 1 mg PO BID PRN Anxiety 12/13/21 12/13/21 metformin 850 mg tablet 850 mg PO TIDM 12/13/21 12/13/21 quetiapine 100 mg tablet 150 mg PO HS 12/13/21 12/13/21 Results & Data (ED) Vital Signs Vital Signs - 24 hr 05/23/22 13:38 05/23/22 13:42 05/23/22 15:03 Temperature 36.7 C Temperature Source Oral Pulse Rate 95 H 90 Pulse Rate from SpO2 Sensor Pulse Rhythm Regular Pulse Strength Normal Respiratory Rate 22 21 28 H Respiratory Effort / Characteristics Short of Breath SOB on Exertion Spontaneous Respiratory Depth Normal Normal Normal Respiratory Pattern Regular Tachypnea Blood Pressure 104/60 Blood Pressure Mean 74 Blood Pressure Position Lying Pulse Oximetry 90 91 92 Oxygen Delivery Method Nasal Cannula Oxymask Oxygen Flow Rate 5 5 Fraction of Inspired Oxygen 50 Sepsis New/Unexplained Change in Mental Status No Sepsis Action Taken by Nursing No Action Required 05/23/22 14:34 05/23/22 14:40 05/23/22 14:50 Temperature Temperature Source Pulse Rate 93 H 84 Pulse Rate from SpO2 Sensor 91 H 88 90 Pulse Rhythm Pulse Strength Respiratory Rate 16 23 25 H Respiratory Effort / Characteristics Respiratory Depth Respiratory Pattern Blood Pressure Blood Pressure Mean Blood Pressure Position Pulse Oximetry 88 L 90 90 Oxygen Delivery Method Oxygen Flow Rate Fraction of Inspired Oxygen Sepsis New/Unexplained Change in Mental Status Sepsis Action Taken by Nursing 05/23/22 15:00 05/23/22 15:10 05/23/22 15:20 Temperature Temperature Source Pulse Rate 96 H 84 91 H Pulse Rate from SpO2 Sensor 95 H 84 86 Pulse Rhythm Pulse Strength Respiratory Rate 22 23 26 H Respiratory Effort / Characteristics Respiratory Depth Respiratory Pattern Blood Pressure Blood Pressure Mean Blood Pressure Position Pulse Oximetry 95 92 92 Oxygen Delivery Method Oxygen Flow Rate Fraction of Inspired Oxygen Sepsis New/Unexplained Change in Mental Status Sepsis Action Taken by Nursing 05/23/22 15:25 05/23/22 15:25 05/23/22 15:30 Temperature Temperature Source Pulse Rate 89 Pulse Rate from SpO2 Sensor 90 Pulse Rhythm Pulse Strength Respiratory Rate 27 H Respiratory Effort / Characteristics Respiratory Depth Respiratory Pattern Blood Pressure 109/60 104/54 L Blood Pressure Mean 76 70 Blood Pressure Position Pulse Oximetry 97 Oxygen Delivery Method Oxygen Flow Rate Fraction of Inspired Oxygen Sepsis New/Unexplained Change in Mental Status Sepsis Action Taken by Nursing 05/23/22 15:30 05/23/22 13:58 Temperature Temperature Source Pulse Rate 88 Pulse Rate from SpO2 Sensor 90 Pulse Rhythm Pulse Strength Respiratory Rate 34 H Respiratory Effort / Characteristics Respiratory Depth Respiratory Pattern Blood Pressure Blood Pressure Mean Blood Pressure Position Pulse Oximetry 95 90 Oxygen Delivery Method Nasal Cannula Oxygen Flow Rate 5 Fraction of Inspired Oxygen Sepsis New/Unexplained Change in Mental Status Sepsis Action Taken by Nursing Laboratory Data Result diagrams: 05/23/22 13:50 05/23/22 13:50 Lab Results 05/23/22 05/23/22 05/23/22 Range/Units 13:50 13:50 13:50 WBC 10.53 (4.8-10.8) K/ul RBC 2.85 L (3.93-5.22) M/uL Hgb 9.7 L (12.0-16.0) g/dl Hct 31.5 L (34.1-44.9) % MCV 110.5 H (80.0-100.0) fL MCH 34.0 (25.0-34.0) pg MCHC 30.8 L (32.0-36.0) g/dL RDW Std Deviation 57.8 H (36.4-46.3) fL RDW Coeff of Vikas 14.3 (11.5-14.5) % Plt Count 227 (130-400) K/uL MPV 9.0 L (9.4-12.3) fL Immature Gran % (Auto) 0.7 % Neut % (Auto) 78.6 % Lymph % (Auto) 7.0 % [place] % (Auto) 12.6 % Eos % (Auto) 0.9 % Baso % (Auto) 0.2 % Neut # (Auto) 8.28 H (1.4-6.5) K/uL Lymph # (Auto) 0.74 L (1.2-3.4) K/uL [place] # (Auto) 1.33 H (0.24-0.82) K/uL Eos # (Auto) 0.09 (0-0.50) K/uL Baso # (Auto) 0.02 (0-0.2) K/uL Immature Gran # (Auto) 0.07 H (0.00-0.02) K/uL PT Cancelled INR Cancelled APTT (21.0-31.0) Seconds PTT Ratio ABG pH (7.35-7.45) ABG pCO2 (35-46) mmHg ABG pO2 (80-95) mmHg ABG HCO3 (19-24) mmol/L ABG O2 Saturation (90-95) % ABG Base Excess (-9-1.8) mEq/L Zach Test (Pos) Oxygen Given Sodium 136 (136-145) mmol/L Potassium 5.5 H (3.5-5.1) mmol/L Chloride 100 (98-107) mmol/L Carbon Dioxide 28 (21-32) mmol/L Anion Gap 8 (3-11) BUN 38 H (6-23) mg/dl Creatinine 0.77 (0.6-1.2) mg/dl Est Cr Clr Drug Dosing 82.5 ml/min Est GFR ( Amer) 90.7 ml/min Est GFR (Non-Af Amer) 78.2 ml/min BUN/Creatinine Ratio 49.4 H (10-20) Glucose 136 H (70-99(Fasting)) mg/dl Lactate (0.4-2.0) mmol/L Calcium 9.9 (8.5-10.1) mg/dl Magnesium 1.6 L (1.7-2.4) mg/dl Total Bilirubin 0.4 (0.2-1.0) mg/dl Direct Bilirubin 0.1 (0-0.2) mg/dl AST 21 (13-39) U/L ALT 16 (7-52) U/L Alkaline Phosphatase 68 (34-104) U/L Troponin I High Sens 11.9 D (0-14) pg/ml Total Protein 6.7 (6.0-8.3) gm/dl Albumin 3.6 (3.4-5.0) gm/dl Procalcitonin (0-0.5) ng/ml Adenovirus (PCR) (NotDetected) B. pertussis DNA (PCR) (NotDetected) B.parapertussis DNA PCR (NotDetected) C. pneumoniae DNA (PCR) (NotDetected) Coronavirus OC43 (PCR) (NotDetected) Coronavirus HKU1 (PCR) (NotDetected) Coronavirus 229E (PCR) (NotDetected) SARS-CoV-2 (PCR) (NotDetected) Coronavirus NL63 (PCR) (NotDetected) Human Metapneumovir PCR (NotDetected) Influenza Type A (PCR) (NotDetected) Influenza Type B (PCR) (NotDetected) M. pneumoniae (PCR) (NotDetected) Parainfluenza 1 (PCR) (NotDetected) Parainfluenza 2 (PCR) (NotDetected) Parainfluenza 3 (PCR) (NotDetected) Parainfluenza 4 (PCR) (NotDetected) RSV (PCR) (NotDetected) Entero/Rhino (PCR) (NotDetected) 05/23/22 05/23/22 05/23/22 Range/Units 13:50 14:24 14:28 WBC (4.8-10.8) K/ul RBC (3.93-5.22) M/uL Hgb (12.0-16.0) g/dl Hct (34.1-44.9) % MCV (80.0-100.0) fL MCH (25.0-34.0) pg MCHC (32.0-36.0) g/dL RDW Std Deviation (36.4-46.3) fL RDW Coeff of Vikas (11.5-14.5) % Plt Count (130-400) K/uL MPV (9.4-12.3) fL Immature Gran % (Auto) % Neut % (Auto) % Lymph % (Auto) % [place] % (Auto) % Eos % (Auto) % Baso % (Auto) % Neut # (Auto) (1.4-6.5) K/uL Lymph # (Auto) (1.2-3.4) K/uL [place] # (Auto) (0.24-0.82) K/uL Eos # (Auto) (0-0.50) K/uL Baso # (Auto) (0-0.2) K/uL Immature Gran # (Auto) (0.00-0.02) K/uL PT INR APTT (21.0-31.0) Seconds PTT Ratio ABG pH (7.35-7.45) ABG pCO2 (35-46) mmHg ABG pO2 (80-95) mmHg ABG HCO3 (19-24) mmol/L ABG O2 Saturation (90-95) % ABG Base Excess (-9-1.8) mEq/L Zach Test (Pos) Oxygen Given Sodium (136-145) mmol/L Potassium (3.5-5.1) mmol/L Chloride (98-107) mmol/L Carbon Dioxide (21-32) mmol/L Anion Gap (3-11) BUN (6-23) mg/dl Creatinine (0.6-1.2) mg/dl Est Cr Clr Drug Dosing ml/min Est GFR ( Amer) ml/min Est GFR (Non-Af Amer) ml/min BUN/Creatinine Ratio (10-20) Glucose (70-99(Fasting)) mg/dl Lactate 2.5 H* (0.4-2.0) mmol/L Calcium (8.5-10.1) mg/dl Magnesium (1.7-2.4) mg/dl Total Bilirubin (0.2-1.0) mg/dl Direct Bilirubin (0-0.2) mg/dl AST (13-39) U/L ALT (7-52) U/L Alkaline Phosphatase (34-104) U/L Troponin I High Sens (0-14) pg/ml Total Protein (6.0-8.3) gm/dl Albumin (3.4-5.0) gm/dl Procalcitonin 0.30 (0-0.5) ng/ml Adenovirus (PCR) Not Detected (NotDetected) B. pertussis DNA (PCR) Not Detected (NotDetected) B.parapertussis DNA PCR Not Detected (NotDetected) C. pneumoniae DNA (PCR) Not Detected (NotDetected) Coronavirus OC43 (PCR) Not Detected (NotDetected) Coronavirus HKU1 (PCR) Not Detected (NotDetected) Coronavirus 229E (PCR) Not Detected (NotDetected) SARS-CoV-2 (PCR) Not Detected (NotDetected) Coronavirus NL63 (PCR) Not Detected (NotDetected) Human Metapneumovir PCR Not Detected (NotDetected) Influenza Type A (PCR) Not Detected (NotDetected) Influenza Type B (PCR) Not Detected (NotDetected) M. pneumoniae (PCR) Not Detected (NotDetected) Parainfluenza 1 (PCR) Not Detected (NotDetected) Parainfluenza 2 (PCR) Not Detected (NotDetected) Parainfluenza 3 (PCR) Not Detected (NotDetected) Parainfluenza 4 (PCR) Not Detected (NotDetected) RSV (PCR) Not Detected (NotDetected) Entero/Rhino (PCR) Not Detected (NotDetected) 05/23/22 05/23/22 Range/Units 14:28 14:29 WBC (4.8-10.8) K/ul RBC (3.93-5.22) M/uL Hgb (12.0-16.0) g/dl Hct (34.1-44.9) % MCV (80.0-100.0) fL MCH (25.0-34.0) pg MCHC (32.0-36.0) g/dL RDW Std Deviation (36.4-46.3) fL RDW Coeff of Vikas (11.5-14.5) % Plt Count (130-400) K/uL MPV (9.4-12.3) fL Immature Gran % (Auto) % Neut % (Auto) % Lymph % (Auto) % [place] % (Auto) % Eos % (Auto) % Baso % (Auto) % Neut # (Auto) (1.4-6.5) K/uL Lymph # (Auto) (1.2-3.4) K/uL [place] # (Auto) (0.24-0.82) K/uL Eos # (Auto) (0-0.50) K/uL Baso # (Auto) (0-0.2) K/uL Immature Gran # (Auto) (0.00-0.02) K/uL PT 10.9 INR 1.0 APTT 30.8 (21.0-31.0) Seconds PTT Ratio 1.1 ABG pH 7.33 L (7.35-7.45) ABG pCO2 61 H (35-46) mmHg ABG pO2 60 L (80-95) mmHg ABG HCO3 32 H (19-24) mmol/L ABG O2 Saturation 90.7 (90-95) % ABG Base Excess 4.5 H (-9-1.8) mEq/L Zach Test Pos (Pos) Oxygen Given 5 L Sodium (136-145) mmol/L Potassium (3.5-5.1) mmol/L Chloride (98-107) mmol/L Carbon Dioxide (21-32) mmol/L Anion Gap (3-11) BUN (6-23) mg/dl Creatinine (0.6-1.2) mg/dl Est Cr Clr Drug Dosing ml/min Est GFR ( Amer) ml/min Est GFR (Non-Af Amer) ml/min BUN/Creatinine Ratio (10-20) Glucose (70-99(Fasting)) mg/dl Lactate (0.4-2.0) mmol/L Calcium (8.5-10.1) mg/dl Magnesium (1.7-2.4) mg/dl Total Bilirubin (0.2-1.0) mg/dl Direct Bilirubin (0-0.2) mg/dl AST (13-39) U/L ALT (7-52) U/L Alkaline Phosphatase (34-104) U/L Troponin I High Sens (0-14) pg/ml Total Protein (6.0-8.3) gm/dl Albumin (3.4-5.0) gm/dl Procalcitonin (0-0.5) ng/ml Adenovirus (PCR) (NotDetected) B. pertussis DNA (PCR) (NotDetected) B.parapertussis DNA PCR (NotDetected) C. pneumoniae DNA (PCR) (NotDetected) Coronavirus OC43 (PCR) (NotDetected) Coronavirus HKU1 (PCR) (NotDetected) Coronavirus 229E (PCR) (NotDetected) SARS-CoV-2 (PCR) (NotDetected) Coronavirus NL63 (PCR) (NotDetected) Human Metapneumovir PCR (NotDetected) Influenza Type A (PCR) (NotDetected) Influenza Type B (PCR) (NotDetected) M. pneumoniae (PCR) (NotDetected) Parainfluenza 1 (PCR) (NotDetected) Parainfluenza 2 (PCR) (NotDetected) Parainfluenza 3 (PCR) (NotDetected) Parainfluenza 4 (PCR) (NotDetected) RSV (PCR) (NotDetected) Entero/Rhino (PCR) (NotDetected) Administered Medications Magnesium Sulfate/Dextrose (Magnesium Sulfate / D5w) 1 gm in 100 mls @ 100 mls/hr IV NOW STA Stop: 05/23/22 17:02 Last Admin: 05/23/22 16:16 Dose: 100 mls/hr Documented By: JOSUÉ Discontinued Medications Sodium Chloride (Nss 1000ml) 500 mls @ 999 mls/hr IV .Q31M SAAD Stop: 05/23/22 14:30 Last Infusion: 05/23/22 15:27 Dose: 0 mls/hr Documented By: Admin: 05/23/22 14:42 Dose: 999 mls/hr Documented By: JOSUÉ Cefepime HCl (Maxipime) 2,000 mg in 20 mls @ 5 mls/min IV NOW STA; Protocol Stop: 05/23/22 16:05 Last Admin: 05/23/22 16:13 Dose: 5 mls/min Documented By: JOSUÉ Imaging Data Radiologist's Impression: Chest X-Ray 05/23/22 13:58 XR chest 1V portable CLINICAL HISTORY: Sepsis TECHNIQUE: Single frontal radiograph of the chest was obtained. Comparison: Comparison is made to chest radiograph 12/18/2021 FINDINGS: Exam is limited by underpenetration. Right shoulder reverse arthroplasty is seen. The cardiomediastinal silhouette is obscured. Opacification of left hemithorax is again seen. No pneumothorax is seen. Left pleural effusion is likely. IMPRESSION: Persistent opacification of the left lung with underlying volume loss. This likely represents atelectasis, superimposed pneumonia or effusion cannot be excluded. ACT 112: Negative or not required by law. Electronically signed by: Jerry White M.D. 05/23/2022 2:33 PM Discharge Plan Visit Data Chief Complaint: Illness Stated Complaint: ILLNESS ED Provider: Leti Arango Discharge Problem: Acute dyspnea, Pneumonia, Acute respiratory failure with hypoxia and hypercarbia, Elevated lactic acid level Forms Stand Alone Forms: [facility] Prescriptions Prescriptions: No Action atorvastatin [Lipitor] 80 mg Tablet 80 mg PO HS aspirin [Malcom Low Dose Aspirin] 81 mg Tablet,Delayed Release (Dr/Ec) 81 mg PO QPM gabapentin 300 mg Capsule 300 mg PO TID Januvia 100 mg tablet 100 mg PO QPM insulin glargine [Lantus Solostar U-100 Insulin] 100 unit/mL (3 mL) insulin pen 35 unit SC HS Rx Instructions: PT STATED "THINKS IT RAISED TO 35 UNITS, BUT NOT SURE". metformin 850 mg tablet 850 mg PO TIDM quetiapine 100 mg tablet 150 mg PO HS lisinopril 5 mg tablet 5 mg PO DAILY furosemide 20 mg tablet 20 mg PO DAILY lorazepam 1 mg tablet 1 mg PO BID PRN (Reason: Anxiety) Referrals Referrals: Kristal Pham CRNP [Outside Practitioners] -
[2022-05-23 14:11] LABS: Basophils # (auto) 0.02 K/uL (0-0.2); Basophils % (auto) 0.2 %; Eosinophils # (auto) 0.09 K/uL (0-0.50); Eosinophils % (auto) 0.9 %; Hematocrit (blood only) 31.5 % (34.1-44.9); Hemoglobin 9.7 g/dl (12.0-16.0); Immature Granulocytes # (auto) 0.07 K/uL (0.00-0.02); Immature Granulocytes % (auto) 0.7 %; Lymphocytes # (auto) 0.74 K/uL (1.2-3.4); Mean Corpuscular Hgb Conc 30.8 g/dL (32.0-36.0); Mean Corpuscular Volume 110.5 fL (80.0-100.0); Monocytes # (auto) 1.33 K/uL (0.24-0.82); Monocytes % (auto) 12.6 %; Neutrophils # (auto) 8.28 K/uL (1.4-6.5); Neutrophils % (auto) 78.6 %; Platelet Count 227 K/uL (130-400); RDW Coefficient of Variation 14.3 % (11.5-14.5); RDW Standard Deviation 57.8 fL (36.4-46.3); Red Blood Count 2.85 M/uL (3.93-5.22); White Blood Count 10.53 K/ul (4.8-10.8)
[2022-05-23 14:34] LABS: Albumin Level 3.6 gm/dl (3.4-5.0); BUN Creatinine Ratio 49.4 (10-20); Bilirubin Direct 0.1 mg/dl (0-0.2); Bilirubin,Total 0.4 mg/dl (0.2-1.0); Calcium 9.9 mg/dl (8.5-10.1); Creatinine Clr Calc Pharmacy 82.5 ml/min; Est GFR (African American) 90.7 ml/min; Est GFR (Non-African American) 78.2 ml/min; Magnesium 1.6 mg/dl (1.7-2.4); Potassium 5.5 mmol/L (3.5-5.1); Total Protein 6.7 gm/dl (6.0-8.3)
--- NOTE | 2022-05-23 14:36 | XRay Report ---
XR chest 1V portable CLINICAL HISTORY: Sepsis TECHNIQUE: Single frontal radiograph of the chest was obtained. Comparison: Comparison is made to chest radiograph 12/18/2021 FINDINGS: Exam is limited by underpenetration. Right shoulder reverse arthroplasty is seen. The cardiomediastin al silhouette is obscured. Opacification of left hemithorax is again seen. No pneumothorax is seen. L eft pleural effusion is likely. IMPRESSION: Persistent opacification of the left lung with underlying volume loss. This likely represents atelect asis, superimposed pneumonia or effusion cannot be excluded. ACT 112: Negative or not required by law. Electronically signed by: Jerry White M.D. 05/23/2022 2:33 PM
[2022-05-23 14:38] LABS: Troponin I High Sensitivity 11.9 pg/ml (0-14)
[2022-05-23 14:41] LABS: Base Excess ABG 4.5 mEq/L (-9-1.8); HCO3 ABG 32 mmol/L (19-24); Oxygen Saturation ABG 90.7 % (90-95); PCO2 ABG 61 mmHg (35-46); PO2 ABG 60 mmHg (80-95); pH ABG 7.33 (7.35-7.45)
[2022-05-23 14:42] LABS: Allen Test Pos (Pos)
[2022-05-23 14:56] LABS: Partial Thromboplastin Ratio 1.1; Partial Thromboplastin Time 30.8 Seconds (21.0-31.0); Prothrombin Time 10.9 Seconds (9.0-12.0)
[2022-05-23] MEDS ORDERED: CEFEPIME 2,000 MG/20 ML VIAL IV STA (16:02)
[2022-05-23] MEDS ORDERED: MAGNESIUM SULFATE / D5W 1 GM/100 ML BAG IV STA (16:03)
[2022-05-23 16:11] LABS: Adenovirus PCR Not Detected (NotDetected); Bordetella parapertussis PCR Not Detected (NotDetected); Bordetella pertussis PCR Not Detected (NotDetected); Chlamydia pneumoniae PCR Not Detected (NotDetected); Coronavirus 229E PCR Not Detected (NotDetected); Coronavirus CoV-2 (COVID19)PCR Not Detected (NotDetected); Coronavirus HKU1 PCR Not Detected (NotDetected); Coronavirus NL63 PCR Not Detected (NotDetected); Coronavirus OC43PCR Not Detected (NotDetected); Human Metapneumovirus PCR Not Detected (NotDetected); Influenza A PCR Not Detected (NotDetected); Influenza B PCR Not Detected (NotDetected); Mycoplasma pneumoniae PCR Not Detected (NotDetected); Parainfluenza Virus 1 PCR Not Detected (NotDetected); Parainfluenza Virus 2 PCR Not Detected (NotDetected); Parainfluenza Virus 3 PCR Not Detected (NotDetected); Parainfluenza Virus 4 PCR Not Detected (NotDetected); Respiratory Syncytial VirusPCR Not Detected (NotDetected); Rhinovirus/Enterovirus PCR Not Detected (NotDetected)
--- NOTE | 2022-05-23 16:34 | History & Physical Report ---
Date of Service May 23, 2022 Assessment & Plan (1) Acute respiratory failure with hypoxia and hypercarbia: Plan: Acute hypoxic respiratory failure, shortness of breath. DDx includes COPD exacerbation and PNA. Meets sepsis criteria on admission. 3 days of cough, shortness of breath, increased oxygen requirements CXR: Persistent opacification of the left lung with underlying volume loss. This likely represents atelectasis, superimposed pneumonia or effusion cannot be excluded. - AB.3 /60/32 consistent with respiratory acidosis Lactate elevated on admission, improving with fluids/BiPAP. Repeat pending Continue empiric treatment for PNA, cefepime every 8 hours Daily CBC DDx includes COPD exacerbation and pneumonia. Patient is with scattered wheezing on admission. No PFTs available for review. Methylpred 40 twice daily. 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 Hypotension improved to systolics 109 with fluids and treatment, will admit to PCU Hx CAD, cor pulmonale Continue aspirin 81 mg daily Lisinopril held for hypotension Lasix held for hypotension TTE 12/12/2021: LV SF normal, grade 1 diastolic dysfunction, RV dilation No fluid overload on x-ray, no chest pain, troponin normal Type II DM On Lantus/Januvia/metformin at home. Hold home antilipemics Basal bolus insulin, goal BSG [id number] Glucose checks AC/at bedtime Hyperlipidemia Continue statin Anxietydepression Continue quetiapine 150 mg at bedtime DVT prophylaxis: Lovenox Diet: Diabetic once able to be taken off BiPAP CODE STATUS: Full code Disposition PCU for respiratory failure (2) Pneumonia: (3) Acute dyspnea: (4) Elevated lactic acid level: (5) SIRS (systemic inflammatory response syndrome): (6) Uncontrolled type 2 diabetes mellitus with hyperosmolarity, without long- term current use of insulin: (7) Hypertension: (8) Hyperlipidemia: History of Present Illness Primary Care Provider: NO PCP Traci is a 71-year-old female with past medical history of cor pulmonale, NSTEMI, subdural hematoma, subarachnoid hemorrhage, compression fractures, palliative evaluation, uncontrolled type 2 diabetes mellitus, CHF, pressure ulcers, COPD, SBO, and roy who presents with cough and shortness of breath. She is on 4 to 5 L of oxygen at baseline, over the last 3 days she has been short of breath despite increasing it to 5 L. Nonproductive cough. No fevers. Patient is seen at the bedside with her . She is currently on BiPAP. She reports that she has had about 3 days of increased shortness of breath, cough, and greenish mucus production with her cough. Has had increased fatigue over this period. Denies chest pain, nausea, vomiting, diarrhea, constipation, fevers, chills, headache. She reports that she has severe COPD at baseline, for which she is on home oxygen normally 3 L. She does have history of mucoid impaction and did have a bronchoscopy November 2021. Feels her breathing has been okay since then until it worsened 3 days ago. No chest pressure. Was peeing normally up until about 3 days ago, has not peed in the last 3 to 4 days. Reports she is not drinking water, feels tired and dehydrated. Denies abdominal pain/dysuria. Medical History: Reviewed Medications: Reviewed Surgical History: Reviewed Allergies: Reviewed Social History: Current tobacco use, no alcohol use Code Status: Full code On ER evaluation: No leukocytosis Hemoglobin 9.7, baseline 8.912 MCV 110 AB.3 3/60/32 consistent with respiratory acidosis Sodium normal, potassium 5.5 Creatinine with normal baseline, 0.77 on admission. Creatinine clearance 82. Lactate 2.5 on admission, magnesium 1.6. Lactate repeat pending Troponin normal Procalcitonin normal Bio fire negative CXR: Persistent opacification of left lung with underlying volume loss,? Atelectasis versus superimposed pneumonia Allergies Allergy/AdvReac Type Severity Reaction Status Date / Time latex Allergy Severe 2ND DEGREE Verified 08/25/21 07:43 BURN FROM BANDAGE adhesive Allergy Intermediate RASH Verified 08/25/21 07:43 Home Medications Medication Instructions Recorded Confirmed Type aspirin 81 mg tablet,delayed 81 mg PO QPM 10/30/18 12/13/21 History release (Malcom Low Dose Aspirin) atorvastatin 80 mg tablet (Lipitor) 80 mg PO HS 10/30/18 12/13/21 History gabapentin 300 mg capsule 300 mg PO TID 10/30/18 12/13/21 History sitagliptin phosphate 100 mg 100 mg PO QPM 01/08/21 12/13/21 History tablet (Januvia) insulin glargine 100 unit/mL (3 35 unit SC HS 08/25/21 12/13/21 History mL) subcutaneous pen (Lantus Solostar U-100 Insulin) furosemide 20 mg tablet 20 mg PO DAILY 12/13/21 12/13/21 History lisinopril 5 mg tablet 5 mg PO DAILY 12/13/21 12/13/21 History lorazepam 1 mg tablet 1 mg PO BID PRN Anxiety 12/13/21 12/13/21 History metformin 850 mg tablet 850 mg PO TIDM 12/13/21 12/13/21 History quetiapine 100 mg tablet 150 mg PO HS 12/13/21 12/13/21 History Past Med/Surg History Medical History Anxiety Chronic obstructive pulmonary disease Complicated UTI (urinary tract infection) Depression Diabetes mellitus, type 2 NIDDM Glaucoma WELL CONTROLLED H/O defect LEFT ARM Hyperlipidemia Hypertension Hyponatremia Palliative care encounter Peripheral neuropathy BILATERAL FEET Shortness of breath Temporomandibular joint disorder NO PROBLEMS RECENTLY. Surgical History History of appendectomy History of cholecystectomy History of colonoscopy History of incision and drainage UMBILICAL ABSCESS History of total shoulder replacement RIGHT Hx of umbilical hernia repair X4 -- WEARS SUPPORT BAND DAILY S/P JALIL-BSO S/P tonsillectomy and adenoidectomy Family History Mother Diabetes mellitus, type 2 Aunt Diabetes mellitus, type 2 Social History Smoking Status: Never smoker Tobacco Type: Cigarettes Cigarettes Per Day: 2 PPD X 50 YEARS AGO; Second Hand Exposure: No; Hx Alcohol Use: No Hx Substance Use: No Preferred Language: Cymraes Communication Ability: Impaired Freight Engineer Required: No Beliefs That Will Affect Care: None marital status: Current Living Situation: Spouse current occupational status: retired Feels Safe at Home: Yes Assistive Devices: Walker and Wheelchair Review of Systems Review of Systems: All systems reviewed & are unremarkable except as noted in Subjective Physical Exam Physical Exam: General: A&Ox3. NAD. Cooperative. Somnolent but arouses easily HEENT: Atraumatic, normocephalic. Vision/hearing intact Pulm: Coarse, scattered trace expiratory wheeze. Symmetrical chest rise. ON BiPAP Cardiac: RRR, -mrg. Radial pulses intact and symmetrical. Abdominal: Nontender, nondistended, soft. BS present. Ext: Warm, dry. Cap refil ~2 seconds, without pitting edema Results & Data Results & Data ([facility]) Vital Signs (Past 12 Hours) Vital Signs Temp Pulse Resp BP Pulse Ox O2 Del Method O2 Flow Rate 05/23/22 13:58 90 Nasal Cannula 5 05/23/22 15:30 88 34 H 95 05/23/22 15:30 104/54 L 05/23/22 15:25 89 27 H 97 05/23/22 15:25 109/60 05/23/22 15:20 91 H 26 H 92 05/23/22 15:10 84 23 92 05/23/22 15:00 96 H 22 95 05/23/22 14:50 25 H 90 05/23/22 14:40 84 23 90 05/23/22 14:34 93 H 16 88 L 05/23/22 15:03 90 28 H 92 05/23/22 13:42 21 91 Oxymask 5 05/23/22 13:38 36.7 C 95 H 22 104/60 90 Nasal Cannula 5 FiO2 05/23/22 13:58 05/23/22 15:30 05/23/22 15:30 05/23/22 15:25 05/23/22 15:25 05/23/22 15:20 05/23/22 15:10 05/23/22 15:00 05/23/22 14:50 05/23/22 14:40 05/23/22 14:34 05/23/22 15:03 50 05/23/22 13:42 05/23/22 13:38 PG Care Time/CCT Total # of Minutes Spent Total Time Spent with Patient: Total time spent is greater than 50% in coordination of care (as documented) at patient's floor/unit and/or counseling patient: Coding Level of Care Code 07664 Initial Inpt Care Lvl 3 Diagnoses Acute respiratory failure with hypoxia and hypercarbia J96.01; J96.02 Pneumonia J18.9 Acute dyspnea R06.00 Elevated lactic acid level R79.89 SIRS (systemic inflammatory response syndrome) R65.10 Uncontrolled type 2 diabetes mellitus with hyperosmolarity, without long-term current use of insulin E11.00 Hypertension I10 Hypertension type: essential hypertension Hyperlipidemia E78.5 Hyperlipidemia type: unspecified (1) Hypertension Hypertension type: essential hypertension Qualified Code(s): I10 - Essential (primary) hypertension (2) Hyperlipidemia Hyperlipidemia type: unspecified Qualified Code(s): E78.5 - Hyperlipidemia, unspecified
[2022-05-23 17:58] LABS: Appearance Urine Cloudy (Clear); Bacteria Urine Automated 4+ (Negative); Bilirubin Urine Negative (Negative); Blood Urine Trace (Negative); Color Urine Yellow; Glucose Urine UA Negative (Negative); Ketones Urine Negative (Negative); Leukocyte Esterase Urine 3+ (Negative); Nitrite Urine Positive (Negative); Protein Urine 1+ (Negative); RBC Urine Automated 0-4 /hpf (0-4); Specific Gravity Urine 1.015 (1.000-1.030); Urobilinogen Urine Negative (Negative); WBC Urine Automated >30 /hpf (0-5); pH Urine 5.5 (4.5-7.5)
[2022-05-23] MEDS ORDERED: GLUCOSE 40% GEL 15 GM TUBE PO PRN (21:03)
[2022-05-23] MEDS ORDERED: DEXTROSE 50% 50 ML SYRINGE IV PRN (21:03)
[2022-05-23] MEDS ORDERED: GLUCOSE 10 TAB/TUBE PO PRN (21:03)
[2022-05-23] MEDS ORDERED: GLUCAGON FOR INJ 1 MG VIAL SQ PRN (21:03)
[2022-05-23] MEDS ORDERED: CARBOHYDRATES FOR HYPOGLYCEMIA PO PRN (21:03)
[2022-05-23] MEDS: ATORVASTATIN 40 MG TAB PO SCH (21:35)
[2022-05-23] MEDS: ENOXAPARIN INJ 40 MG/0.4 ML SYR SQ SCH (21:35)
[2022-05-23] MEDS: ASPIRIN 81 MG ECTAB PO SCH (21:35)
[2022-05-23] MEDS: SODIUM CHLORIDE 0.9% 1000ML 1,000 ML IV SCH (21:36)
[2022-05-23 21:44] LABS: Base Excess VBG 5.3 mEq/L; HCO3 VBG 34 mmol/L; Oxygen Saturation VBG 95.3 %; PCO2 VBG 65 mmHg (38-50); PO2 VBG 76 mmHg; pH VBG 7.32 (7.36-7.41)
[2022-05-23] MEDS: INSULIN ASPART PER UNIT SC SCH (21:51)
[2022-05-23] MEDS: LANTUS PER UNIT CHARGE SQ SCH (21:56)
[2022-05-23 22:10] LABS: BUN Creatinine Ratio 53.5 (10-20); Calcium 9.8 mg/dl (8.5-10.1); Creatinine Clr Calc Pharmacy 91.7 ml/min; Est GFR (Non-African American) 86.3 ml/min; Potassium 5.8 mmol/L (3.5-5.1)
[2022-05-23] MEDS: methylPREDNISolone 40 MG in SYRINGE 0 ML IV SCH (22:46)
[2022-05-23] MEDS: CEFEPIME 2,000 MG in SYRINGE 0 ML IV SCH (23:41)
[2022-05-24 02:41] LABS: Base Excess VBG 4.5 mEq/L; HCO3 VBG 31 mmol/L; Oxygen Saturation VBG 74.6 %; PCO2 VBG 54 mmHg (38-50); PO2 VBG 46 mmHg; pH VBG 7.37 (7.36-7.41)
[2022-05-24 02:42] LABS: Hematocrit (blood only) 33.5 % (34.1-44.9); Hemoglobin 10.5 g/dl (12.0-16.0); Mean Corpuscular Hemoglobin 34.5 pg (25.0-34.0); Mean Corpuscular Hgb Conc 31.3 g/dL (32.0-36.0); Mean Corpuscular Volume 110.2 fL (80.0-100.0); Mean Platelet Volume 9.1 fL (9.4-12.3); Platelet Count 267 K/uL (130-400); RDW Coefficient of Variation 14.1 % (11.5-14.5); RDW Standard Deviation 57.1 fL (36.4-46.3); Red Blood Count 3.04 M/uL (3.93-5.22); White Blood Count 12.55 K/ul (4.8-10.8)
[2022-05-24 03:04] LABS: Basophils # (auto) 0.03 K/uL (0-0.2); Basophils % (auto) 0.2 %; Eosinophils # (auto) 0.02 K/uL (0-0.50); Eosinophils % (auto) 0.2 %; Immature Granulocytes # (auto) 0.05 K/uL (0.00-0.02); Immature Granulocytes % (auto) 0.4 %; Lymphocytes % (auto) 3.2 %; Monocytes # (auto) 0.27 K/uL (0.24-0.82); Monocytes % (auto) 2.2 %; Neutrophils # (auto) 11.78 K/uL (1.4-6.5); Neutrophils % (auto) 93.8 %; Toxic Vacuolation 1+
[2022-05-24 03:07] LABS: BUN Creatinine Ratio 53.1 (10-20); Calcium 10.1 mg/dl (8.5-10.1); Creatinine Clr Calc Pharmacy 101.8 ml/min; Est GFR (African American) 104.8 ml/min; Est GFR (Non-African American) 90.4 ml/min; Potassium 5.8 mmol/L (3.5-5.1)
[2022-05-24 06:06] LABS: Base Excess VBG 7.1 mEq/L; HCO3 VBG 34 mmol/L; Oxygen Saturation VBG 71.5 %; PCO2 VBG 56 mmHg (38-50); PO2 VBG 42 mmHg; pH VBG 7.39 (7.36-7.41)
[2022-05-24] MEDS: SODIUM CHLORIDE 0.9% 1000ML 1,000 ML IV SCH ×3 (06:15→23:16)
[2022-05-24] MEDS: INSULIN ASPART PER UNIT SC SCH ×4 (08:26→20:19)
[2022-05-24] MEDS: methylPREDNISolone 40 MG in SYRINGE 0 ML IV SCH ×2 (08:27→20:06)
[2022-05-24] MEDS: ENOXAPARIN INJ 40 MG/0.4 ML SYR SQ SCH ×2 (08:27→20:07)
[2022-05-24] MEDS: LANTUS PER UNIT CHARGE SQ SCH (08:27)
[2022-05-24] MEDS: CEFEPIME 2,000 MG in SYRINGE 0 ML IV SCH ×2 (08:32→17:16)
[2022-05-24] MEDS ORDERED: PHARMACY GLYCEMIC MGMT CONSULT PRN (09:46)
--- NOTE | 2022-05-24 14:41 | Pharmacy Report ---
Pharmacy Glycemic Short Note 2 - Date of Service May 24, 2022 - Glycemic Short BSG Results (Last 24 hours): 05/23/22 05/23/22 05/24/22 21:24 21:50 02:28 Glucose 119 H 163 H POC Glucose 135 H 05/24/22 05/24/22 07:46 11:57 Glucose POC Glucose 204 H 182 H OUTPATIENT ANTIDIABETIC REGIMEN: * Lantus 35 units HS * Metformin 850 mg TIDM * Januvia 100 mg PO daily ASSESSMENT: * Ms Roman is a 71 y/o F who presents with pneumonia. She is currently on Solu-Medrol 40 mg IV q12. * On admission, BSG was 135 mg/dL. Patient received 8 units of Lantus. * Pharmacy consulted after morning BSG of 204 mg/dL. Patient received scheduled 8 units of Lantus. * Will give 15 units tonight for total of 23 units of basal today. This is similar to previous admission. * Tighten CF and add CR for steroid hyperglycemia. * If patient continues to trend up will continue to tighten CR as this is what steroids primarily affects. PLAN FOR INPATIENT GLYCEMIC CONTROL: * Hold outpatient oral diabetes medications * Basal insulin * Lantus 15 units SQ HS tonight then evaluate tomorrow * Bolus insulin * NovoLog per scale ACHS or Q6hrs while NPO * Goal Range: Low 110 mg/dL - High 140 mg/dL * Correction Factor: 25 mg/dL/unit * Nutritional / Prandial insulin per carb ratio of 1 unit per 6 grams CHO consumed
[2022-05-24 15:21] LABS: Base Excess VBG 6.4 mEq/L; HCO3 VBG 32 mmol/L; Oxygen Saturation VBG 85.8 %; PCO2 VBG 48 mmHg (38-50); PO2 VBG 53 mmHg; pH VBG 7.43 (7.36-7.41)
[2022-05-24] MEDS: ATORVASTATIN 40 MG TAB PO SCH (20:06)
[2022-05-24] MEDS: QUEtiapine FUMARATE 100 MG TABLET PO SCH (20:07)
[2022-05-24] MEDS: ASPIRIN 81 MG ECTAB PO SCH (20:08)
[2022-05-24] MEDS ORDERED: LANTUS PER UNIT CHARGE SQ SCH (21:00)
[2022-05-24] MEDS ORDERED: OLANZapine 10 MG/2.1 ML SDV IM STA ×3 (21:21→23:05)
--- NOTE | 2022-05-24 22:03 | Hospitalist Progress Note ---
Date of Service May 24, 2022 Assessment & Plan (1) Acute respiratory failure with hypoxia and hypercarbia: Plan: Acute hypoxic respiratory failure, shortness of breath. DDx includes COPD exacerbation and PNA. Meets sepsis criteria on admission. 3 days of cough, shortness of breath, increased oxygen requirements CXR: Persistent opacification of the left lung with underlying volume loss. concern over mucous plug. -will consult pulmonary for possible bronch. -ordered flutter valve, may consider chest PT - AB.3 /60/32 consistent with respiratory acidosis lactic acid improved with IVF. Continue empiric treatment for PNA, cefepime every 8 hours Daily CBC DDx includes COPD exacerbation and pneumonia. Patient is with scattered wheezing on admission. No PFTs available for review. Methylpred 40 twice daily . 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 Hypotension improved to systolics 109 with fluids and treatment, will admit to PCU Hx CAD, cor pulmonale Continue aspirin 81 mg daily Lisinopril held for hypotension Lasix held for hypotension; will consider resuming lasix in AM TTE 12/12/2021: LV SF normal, grade 1 diastolic dysfunction, RV dilation No fluid overload on x-ray, no chest pain, troponin normal Type II DM On Lantus/Januvia/metformin at home. Hold home antilipemics Basal bolus insulin, goal BSG 846192 Glucose checks AC/at bedtime Hyperlipidemia Continue statin Anxietydepression Continue quetiapine 150 mg at bedtime DVT prophylaxis: Lovenox Diet: Diabetic once able to be taken off BiPAP CODE STATUS: Full code Disposition PCU for respiratory failure (2) Pneumonia: (3) Acute dyspnea: (4) Elevated lactic acid level: (5) SIRS (systemic inflammatory response syndrome): (6) Uncontrolled type 2 diabetes mellitus with hyperosmolarity, without long- term current use of insulin: (7) Hypertension: (8) Hyperlipidemia: Admission and Anticipated Discharge Date Admission Date: May 23, 2022 Subjective 71 yo female reports feeling SOB. Review of Systems Review of Systems: All systems reviewed & are unremarkable except as noted in HPI & below Physical Exam Physical Exam: General: A&Ox3. NAD. Cooperative. Somnolent but arouses easily HEENT: Atraumatic, normocephalic. Vision/hearing intact Pulm: Coarse, scattered trace expiratory wheeze. Symmetrical chest rise. Cardiac: RRR, -mrg. Radial pulses intact and symmetrical. Abdominal: Nontender, nondistended, soft. BS present. Ext: Warm, dry. Cap refil ~2 seconds, without pitting edema Results & Data Results & [facility] ([facility]) Vital Signs (Past 12 Hours) Vital Signs Temp Pulse Pulse Resp BP Pulse Ox O2 Del Method 05/24/22 21:44 BiPAP 05/24/22 19:59 77 32 H 93 05/24/22 19:43 36.5 C 77 22 159/79 H 85 L Oxymask 05/24/22 15:26 37.0 C 78 20 188/90 H 90 Oxymask 05/24/22 11:29 36.8 C 77 19 176/83 H 91 Oxymask O2 Flow Rate FiO2 05/24/22 21:44 05/24/22 19:59 50 05/24/22 19:43 12.0 05/24/22 15:26 10 05/24/22 11:29 8 PG Care Time/CCT Total # of Minutes Spent Total Time Spent with Patient: Total time spent is greater than 50% in coordination of care (as documented) at patient's floor/unit and/or counseling patient: Coding Level of Care Code 74064 Subseq Hosp Care Lvl 3 Diagnoses Acute respiratory failure with hypoxia and hypercarbia J96.01; J96.02 Pneumonia J18.9 Acute dyspnea R06.00 Elevated lactic acid level R79.89 SIRS (systemic inflammatory response syndrome) R65.10 Uncontrolled type 2 diabetes mellitus with hyperosmolarity, without long-term current use of insulin E11.00 Hypertension I10 Hypertension type: essential hypertension Hyperlipidemia E78.5 Hyperlipidemia type: unspecified Time Spent (min) 35 (1) Hyperlipidemia Hyperlipidemia type: unspecified Qualified Code(s): E78.5 - Hyperlipidemia, unspecified (2) Hypertension Hypertension type: essential hypertension Qualified Code(s): I10 - Essential (primary) hypertension
[2022-05-24 22:55] LABS: HCO3 ABG 31 mmol/L (19-24); Oxygen Saturation ABG 96.7 % (90-95); PCO2 ABG 43 mmHg (35-46); PO2 ABG 79 mmHg (80-95); pH ABG 7.46 (7.35-7.45)
[2022-05-24 22:56] LABS: Allen Test POS (Pos)
[2022-05-25] MEDS: CEFEPIME 2,000 MG in SYRINGE 0 ML IV SCH ×2 (00:41→09:17)
[2022-05-25 05:12] LABS: Hematocrit (blood only) 29.5 % (34.1-44.9); Hemoglobin 9.5 g/dl (12.0-16.0); Mean Corpuscular Hemoglobin 34.2 pg (25.0-34.0); Mean Corpuscular Hgb Conc 32.2 g/dL (32.0-36.0); Mean Corpuscular Volume 106.1 fL (80.0-100.0); Mean Platelet Volume 8.8 fL (9.4-12.3); Platelet Count 303 K/uL (130-400); RDW Standard Deviation 54.9 fL (36.4-46.3); Red Blood Count 2.78 M/uL (3.93-5.22); White Blood Count 8.08 K/ul (4.8-10.8)
[2022-05-25] MEDS: SODIUM CHLORIDE 0.9% 1000ML 1,000 ML IV SCH (06:25)
--- NOTE | 2022-05-25 06:26 | Electrocardiogram Report ---
Test Reason : Blood Pressure : / mmHG Vent. Rate : 087 BPM Atrial Rate : 087 BPM P-R Int : 200 ms QRS Dur : 134 ms QT Int : 402 ms P-R-T Axes : 057 129 008 degrees QTc Int : 483 ms Poor data quality, interpretation may be adversely affected Sinus rhythm with marked sinus arrhythmia Right bundle branch block Left posterior fascicular block Bifascicular block Abnormal ECG When compared with ECG of 12-DEC-2021 07:19, T wave inversion less evident in Anterior leads Confirmed by Myron Norton ([id number]) on 05/25/2022 6:26:06 AM Referred By: REFERRED SELF Confirmed By:Myron Norton
[2022-05-25] MEDS: ENOXAPARIN INJ 40 MG/0.4 ML SYR SQ SCH ×2 (08:21→20:35)
[2022-05-25] MEDS: LANTUS PER UNIT CHARGE SQ SCH ×2 (08:23→21:55)
[2022-05-25] MEDS: INSULIN ASPART PER UNIT SC SCH ×4 (08:24→20:36)
[2022-05-25] MEDS: methylPREDNISolone 40 MG in SYRINGE 0 ML IV SCH (08:24)
[2022-05-25 08:57] LABS: Base Excess VBG 4.5 mEq/L; HCO3 VBG 30 mmol/L; Oxygen Saturation VBG 96.7 %; PCO2 VBG 49 mmHg (38-50); PO2 VBG 77 mmHg
--- NOTE | 2022-05-25 10:00 | XRay Report ---
SINGLE VIEW CHEST CLINICAL HISTORY: Hypoxia FINDINGS: 2 AP, portable, upright chest radiographs are compared to study dated 05/23/2022 and correl ated with chest CT dated 12/12/2021 The examination is degraded by portable technique and patient rota tion. The heart is enlarged noting atherosclerotic calcification of the thoracic area. There is pulmo nary vascular congestion. There is opacification of the left hemithorax has modest increased from pre vious, indicating pleural effusion with atelectasis/consolidation. A small pleural effusion is seen o n the right in the right basilar airspace opacities. No pneumothorax is seen. The skeletal structures are osteopenic. There are healed left-sided rib fractures. A right shoulder arthroplasty is in place . Severe chronic deformity of the left proximal humerus is unchanged. IMPRESSION: 1. Cardiomegaly with evidence of congestive failure. 2. Bilateral pleural effusions. 3. There is near-complete opacification of the left hemithorax. This has increased as compared to . 3. Right basilar opacities could represent mild edema, atelectasis, and/or developing pneumonia. Clin ical correlation will be required and radiographic follow-up to resolution is recommended. ACT 112: Negative or not required by law. Electronically signed by: Moi Coulter M.D. 05/25/2022 9:58 AM
--- NOTE | 2022-05-25 10:27 | Pulmonary Consultation ---
Date of Consultation May 25, 2022 Assessment & Plan (1) Atelectasis of left lung: (2) Respiratory failure with hypoxia and hypercapnia: Chronicity: acute Qualified Code(s): J96.01 - Acute respiratory failure with hypoxia; J96.02 - Acute respiratory failure with hypercapnia Plan Impression: 71-year-old female with multiple medical issues admitted with increasing shortness of breath. Her left lung is atelectatic and has been so for about the last 5 months. Review of the CT scan does not demonstrate a clear endobronchial lesion and review of the bronchoscopy report performed in the ICU back in November demonstrated that the airways were patent with mucous. 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 Recommendations: 1. Atelectatic left lung: Discussed with the patient extensively at bedside. I advised her that given her current respiratory status, bronchoscopy would likely require intubation and mechanical ventilation for a period of time. She states she is adamantly opposed to intubation. This prompted a discussion of CODE STATUS where she confirmed that she does not want CPR, intubation, or mechanical ventilation. Her CODE STATUS will be updated accordingly to DO NOT INTUBATE DO NOT RESUSCITATE. Will obtain noncontrast CT of his chest to better evaluate. 2. At this point time will aggressively treat with 7% hypertonic saline and bronchodilators. I do not see an indication for steroids at this point in time so these will be discontinued. Will pursue a trial of vest therapy to see if this improves pulmonary toilet as well as flutter valve. Follow-up chest x-ray in the next 24 hours. 3. If the patient is unsuccessful in clearing her lung and we can get her oxygen requirement down to an acceptable range, may consider bronchoscopy at that point time to ensure patency of the airways. We will follow-up with results of the CT scan 4. Discussed with respiratory therapy. Okay to wean the patient off BiPAP to high flow nasal cannula. 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 She would benefit from CPAP or BiPAP at night. An outpatient sleep study should be performed. Outpatient pulmonary function testing should also be considered. She can continue to use CPAP or BiPAP during the day on an as- needed basis. 5. The patient was started on cefepime. With a normal white blood cell count and lack of fevers, I do not think this is an infectious etiology and cefepime will be discontinued. We will follow the patient clinically. Should she develop fevers or other signs of lower respiratory infection, antimicrobial agents might be appropriate. Will continue to follow with this patient and see how she does with aggressive pulmonary toilet. I am not overly optimistic and I think at some point she will likely require investigation of her airways. Hopefully we can improve her clinical status enough to assess this. History of Present Illness Attending Physician: Paul Parr History of Present Illness Asked by hospitalist to evaluate this patient with hypoxemic respiratory failure and atelectasis. History is obtained from discussion with the patient as well as review the electronic medical record. Patient is a morbidly obese 71-year-old female with a complex medical history including subdural and subarachnoid hemorrhages, right-sided heart failure, diabetes, pressure ulcers, and prior small bowel obstruction. She uses 4 to 5 L of oxygen chronically but presented to the facility 05/23/2022 with complaints of 3-day history of progressive shortness of breath. She did increase her oxygen up to 5 L/min at home. In the emergency room, she had a blood gas performed showing a pH of 7.33 with a PCO2 of 61 and was placed on BiPAP. She was admitted to the hospitalist service and placed on steroids and bronchodilators. I do not see pulmonary function tests having been performed previously. Of note, review of the patient's prior chest x-rays revealed that the left lung has essentially been nonaerated dating back to November. Bronchoscopy was performed at that time demonstrating some mucous plugging however the x-ray never showed resolution. She was not seen by pulmonary at that time. The patient is currently awake and alert on BiPAP. She feels that she is doing better. She does not carry a diagnosis of sleep disordered breathing. Allergies Allergy/AdvReac Type Severity Reaction Status Date / Time latex Allergy Severe 2ND DEGREE Verified 08/25/21 07:43 BURN FROM BANDAGE adhesive Allergy Intermediate RASH Verified 08/25/21 07:43 Home Medications Medication Instructions Recorded Confirmed Type aspirin 81 mg tablet,delayed 81 mg PO QPM 10/30/18 12/13/21 History release (Malcom Low Dose Aspirin) atorvastatin 80 mg tablet (Lipitor) 80 mg PO HS 10/30/18 12/13/21 History gabapentin 300 mg capsule 300 mg PO TID 10/30/18 12/13/21 History sitagliptin phosphate 100 mg 100 mg PO QPM 01/08/21 12/13/21 History tablet (Januvia) insulin glargine 100 unit/mL (3 35 unit SC HS 08/25/21 12/13/21 History mL) subcutaneous pen (Lantus Solostar U-100 Insulin) furosemide 20 mg tablet 20 mg PO DAILY 12/13/21 12/13/21 History lisinopril 5 mg tablet 5 mg PO DAILY 12/13/21 12/13/21 History lorazepam 1 mg tablet 1 mg PO BID PRN Anxiety 12/13/21 12/13/21 History metformin 850 mg tablet 850 mg PO TIDM 12/13/21 12/13/21 History quetiapine 100 mg tablet 150 mg PO HS 12/13/21 12/13/21 History Patient History Medical History Anxiety Chronic obstructive pulmonary disease Complicated UTI (urinary tract infection) Depression Diabetes mellitus, type 2 NIDDM Glaucoma WELL CONTROLLED H/O defect LEFT ARM Hyperlipidemia Hypertension Hyponatremia Palliative care encounter Peripheral neuropathy BILATERAL FEET Shortness of breath Temporomandibular joint disorder NO PROBLEMS RECENTLY. Surgical History History of appendectomy History of cholecystectomy History of colonoscopy History of incision and drainage UMBILICAL ABSCESS History of total shoulder replacement RIGHT Hx of umbilical hernia repair X4 -- WEARS SUPPORT BAND DAILY S/P JALIL-BSO S/P tonsillectomy and adenoidectomy Family History Mother Diabetes mellitus, type 2 Aunt Diabetes mellitus, type 2 Social History Smoking Status: Former smoker Tobacco Type: Cigarettes Cigarettes Per Day: 2 PPD X 50 YEARS AGO; Second Hand Exposure: No; Hx Alcohol Use: No Hx Substance Use: No Preferred Language: German Communication Ability: Impaired Char House Supervisor Required: No Beliefs That Will Affect Care: None marital status: Current Living Situation: Spouse current occupational status: retired Feels Safe at Home: Yes Assistive Devices: Oxygen - Continuous, Walker and Wheelchair Review of Systems Review of Systems: Please refer to admission H&P. No additions or deletions Physical Exam Constitutional: + morbidly obese; not in distress Neck: trachea midline, no thyromegaly Respiratory: no respiratory distress, no labored breathing, no cough and not tachypneic Diminished breath sounds on the left. No wheezing. Cardiovascular: RRR, no murmur, no edema Gastrointestinal (Abdomen): normal bowel sounds, soft, nontender, no he patosplenomegaly Musculoskeletal: Extremities: extremities normal to inspection Skin: no rashes, warm and dry Neurologic: Nonfocal exam Lymphatic: no cervical lymphadenopathy Results & Data Results & Data ([facility]) Vital Signs (Past 12 Hours) Vital Signs Temp Pulse Pulse Resp BP Pulse Ox O2 Del Method 05/25/22 07:45 37.1 C 79 20 156/83 H 96 BiPAP 05/25/22 08:00 BiPAP 05/25/22 07:15 84 32 H 94 05/25/22 05:17 37.3 C 85 20 158/80 H 95 BiPAP 05/25/22 04:06 91 H 34 H 92 05/25/22 01:54 BiPAP 05/24/22 23:52 37.2 C 118 H 22 183/104 H 93 BiPAP 05/24/22 22:52 100 H 37 H 93 FiO2 05/25/22 07:45 05/25/22 08:00 05/25/22 07:15 50 05/25/22 05:17 05/25/22 04:06 50 05/25/22 01:54 05/24/22 23:52 05/24/22 22:52 50 Critical Care Results & Data Vital Signs (Past 12 Hours) Vital Signs Temp Pulse Pulse Resp BP Pulse Ox O2 Del Method 05/25/22 07:45 37.1 C 79 20 156/83 H 96 BiPAP 05/25/22 08:00 BiPAP 05/25/22 07:15 84 32 H 94 05/25/22 05:17 37.3 C 85 20 158/80 H 95 BiPAP 05/25/22 04:06 91 H 34 H 92 05/25/22 01:54 BiPAP 05/24/22 23:52 37.2 C 118 H 22 183/104 H 93 BiPAP 05/24/22 22:52 100 H 37 H 93 FiO2 05/25/22 07:45 05/25/22 08:00 05/25/22 07:15 50 05/25/22 05:17 05/25/22 04:06 50 05/25/22 01:54 05/24/22 23:52 05/24/22 22:52 50 Lab & Micro Results (Past 24 Hours) RBC 2.78 M/uL (3.93-5.22) L 05/25/22 WBC 8.08 K/ul (4.8-10.8) 05/25/22 Hgb 9.5 g/dl (12.0-16.0) L 05/25/22 Hct 29.5 % (34.1-44.9) L 05/25/22 MCV 106.1 fL (80.0-100.0) H 05/25/22 MCH 34.2 pg (25.0-34.0) H 05/25/22 MCHC 32.2 g/dL (32.0-36.0) 05/25/22 RDW Standard Deviation 54.9 fL (36.4-46.3) H 05/25/22 RDW Coefficient of Variation 14.0 % (11.5-14.5) 05/25/22 Plt Count 303 K/uL (130-400) 05/25/22 MPV 8.8 fL (9.4-12.3) L 05/25/22 No Data to Display Venous Blood pH 7.40 (7.36-7.41) 05/25/22 08:50 Venous Blood Partial Pressure CO2 49 mmHg (38-50) 05/25/22 08:5 0 Venous Blood Partial Pressure O2 77 mmHg 05/25/22 08:50 Venous Blood HCO3 30 mmol/L 05/25/22 08:50 Venous Blood Base Excess 4.5 mEq/L 05/25/22 08:50 Venous Blood Oxygen Saturation 96.7 % 05/25/22 08:50 Arterial Blood pH 7.46 (7.35-7.45) H 05/24/22 22:48 Arterial Blood Partial Pressure CO2 43 mmHg (35-46) 05/24/22 22 :48 Arterial Blood Partial Pressure O2 79 mmHg (80-95) L 05/24/22 2 2:48 Arterial Blood HCO3 31 mmol/L (19-24) H 05/24/22 22:48 Arterial Blood Base Excess 6.0 mEq/L (-9-1.8) H 05/24/22 22:48 Arterial Blood Oxygen Saturation 96.7 % (90-95) H 05/24/22 22:4 8 Blood Gas Oxygen Given 50% FiO2 05/24/22 22:48 Zach Test POS (Pos) 05/24/22 22:48 Microbiology 05/23/22 17:45 Urine Culture - Preliminary Urine,Clean Catch Klebsiella pneumoniae 05/23/22 14:32 Aerobic Blood Culture - Preliminary Blood No growth in Aerobic bottle after 24 hours. Anaerobic Blood Culture - Final 05/23/22 14:28 Aerobic Blood Culture - Preliminary Blood No growth in Aerobic bottle after 24 hours. Anaerobic Blood Culture - Preliminary No growth in Anaerobic bottle after 24 hours. Diagnostic Findings (Past 24 Hours) Chest X-Ray 05/25/22 08:38 SINGLE VIEW CHEST CLINICAL HISTORY: Hypoxia FINDINGS: 2 AP, portable, upright chest radiographs are compared to study dated 05/23/2022 and correlated with chest CT dated 12/12/2021 The examination is degraded by portable technique and patient rotation. The heart is enlarged noting atherosclerotic calcification of the thoracic area. There is pulmonary vascular congestion. There is opacification of the left hemithorax has modest increased from previous, indicating pleural effusion with atelectasis/consolidation. A small pleural effusion is seen on the right in the right basilar airspace opacities. No pneumothorax is seen. The skeletal structures are osteopenic. There are healed left-sided rib fractures. A right shoulder arthroplasty is in place. Severe chronic deformity of the left proximal humerus is unchanged. IMPRESSION: 1. Cardiomegaly with evidence of congestive failure. 2. Bilateral pleural effusions. 3. There is near-complete opacification of the left hemithorax. This has increased as compared to 05/23/2022. 3. Right basilar opacities could represent mild edema, atelectasis, and/or developing pneumonia. Clinical correlation will be required and radiographic follow-up to resolution is recommended. ACT 112: Negative or not required by law. Electronically signed by: Moi Coulter M.D. 05/25/2022 9:58 AM I & O Totals 24 Hours 05/24/22 05/25/22 05/26/22 06:59 06:59 06:59 Intake Total 1600 / 1600 3092 / 3092 1000 / 1000 Output Total 100 / 100 1850 / 1850 Balance 1500 / 1500 1242 / 1242 1000 / 1000 Cumulative 05/23/22 12:59 thru 05/25/22 09:08 Intake Total 5692 Output Total 1950 Balance 3742 RT Ventilator Mngmt (Last Documented) Ventilator Ordered Settings Respiratory Rate 20 05/25/22 07:45 Fraction of Inspired Oxygen 50 05/25/22 07:15 Ventilator - PT Measurements Respiratory Rate 20 PG Care Time/CCT Total # of Minutes Spent Total Time Spent with Patient: Total time spent is greater than 50% in coordination of care (as documented) at patient's floor/unit and/or counseling patient: Coding Level of Care Code 91742 Initial Inpt Care Lvl 3 Diagnoses Atelectasis of left lung J98.11 Respiratory failure with hypoxia and hypercapnia J96.01; J96.02 Chronicity: acute
--- NOTE | 2022-05-25 11:30 | CT Scan Report ---
CT SCAN OF THE CHEST WITHOUT IV CONTRAST CLINICAL HISTORY: Hypoxia. COMPARISON STUDY: Chest x-ray dated 05/25/2022. Chest CT dated 12/12/2021. TECHNIQUE: CT scan of the thorax was performed from the thoracic inlet to the upper abdomen. Images are reviewed in the axial, sagittal, and coronal planes. IV contrast was not administered for this ex amination as per the referring clinician. A dose lowering technique was utilized adhering to the torito Olivas. The examination is compromised by motion artifact. There is also streak artifact fr om the arms which could not be elevated above the chest. CT DOSE: 1460.19 mGy.cm FINDINGS: Thyroid: Imaged portions of the thyroid gland are normal in size and attenuation. Thoracic aorta: There is atherosclerotic calcification of the thoracic aorta, which is normal in [place] and demonstrates standard 3-vessel arch anatomy. Heart: The heart is enlarged and without pericardial effusion. The coronary arteries are densely calc ified. The pulmonary trunk appears dilated suggesting pulmonary artery hypertension. Lungs and pleural spaces: Evaluation of the lung parenchyma is significantly degraded by motion artif act. Intralobular septal thickening is noted throughout the right lung. There is a small right pleura l effusion with right patchy airspace opacities throughout the right lung. These are greatest at the right lung base. There is debris within the distal trachea. Fluid/debris fills the left mainstem bro nchus and the left-sided airways with complete atelectasis/consolidation of the left lung. There is c orresponding leftward shift of mediastinum. Loculated pleural fluid is seen at the left apex and at t he left lung base. Mediastinum: Mildly enlarged mediastinal lymph nodes are similar to previous. Prevascular nodes measu re up to 15 mm in short axis. Ashley: Not well assessed without IV contrast. Axillae: There is no axillary lymphadenopathy. Upper abdomen: There is trace perihepatic ascites. Partially visualized upper abdominal viscera is ot herwise grossly unremarkable. Skeletal structures: The skeletal structures are heterogeneously osteopenic. Degenerative changes and kyphoscoliosis is noted in the thoracic spine. There are minimal thoracic compression deformities. N o lytic or blastic bony lesions are seen. A right shoulder arthroplasty is in place. Chronic deformit y of the left shoulder is similar to previous. IMPRESSION: 1. Significantly streak and motion compromised examination. 2. Cardiomegaly with evidence of congestive failure. 3. There is debris within the distal trachea. Fluid/debris fills the left mainstem bronchus and the l eft-sided airways with complete atelectasis of the left lung. Correlate clinically for evidence of pn eumonia/aspiration. 4. Small pleural effusions. 5. Mild airspace opacities are seen throughout the right lung, greatest at the right lung base. This could represent a component of pulmonary edema and/or a pneumonitis. Clinical correlation will be req uired. 6. Mediastinal lymphadenopathy is similar to previous. 7. Additional findings as above. ACT 112: Negative or not required by law. Electronically signed by: Moi Coulter M.D. 05/25/2022 11:28 AM
[2022-05-25] MEDS ORDERED: OLANZapine 5 MG TABLET PO STA (15:41)
[2022-05-25] MEDS ORDERED: FUROSEMIDE 40 MG/4 ML VIAL IV ONE ×2 (18:03→18:05)
[2022-05-25] MEDS: SODIUM CHLOR 7% 4 ML NEB NEB SCH (19:51)
[2022-05-25] MEDS: ALBUT/IPRATROP 3MG/0.5MG NEB 3 ML VIAL NEB PRN (19:51)
[2022-05-25] MEDS: ASPIRIN 81 MG ECTAB PO SCH (20:34)
[2022-05-25] MEDS: ATORVASTATIN 40 MG TAB PO SCH (20:35)
[2022-05-25] MEDS: QUEtiapine FUMARATE 100 MG TABLET PO SCH (20:36)
--- NOTE | 2022-05-25 21:57 | Hospitalist Progress Note ---
Date of Service May 25, 2022 Assessment & Plan (1) Acute respiratory failure with hypoxia and hypercarbia: Plan: Acute hypoxic respiratory failure, shortness of breath. DDx includes COPD exacerbation and PNA. _antibiotics stopped, though, kiran monitor. Sepsis was a posible diagosis at time of admission but this appears to be ruled out. If patient becomes febrile, will reconsider diagnosis. 3 days of cough, shortness of breath, increased oxygen requirements CXR: Persistent opacification of the left lung with underlying volume loss. concern over mucous plug. -consulted pulmonary for possible bronch -ordered hypertonic saline nebs, chest PT, changes code status to DNR/DNI -However, patient may reconsider bronch if she does not improve. - AB.3 /60/32 consistent with respiratory acidosis lactic acid improved with IVF. Continue empiric treatment for PNA, cefepime every 8 hours Daily CBC DDx includes COPD exacerbation and pneumonia. Patient is with scattered wheezing on admission. No PFTs available for review. Methylpred 40 twice daily. No [employer]CH[employer]ICIAN inhalers. Hypotension improved to systolics 109 with fluids and treatment, will admit to PCU Hx CAD, cor pulmonale Continue aspirin 81 mg daily Lisinopril held for hypotension Lasix held for hypotension; will consider resuming lasix in AM TTE 12/12/2021: LV SF normal, grade 1 diastolic dysfunction, RV dilation No fluid overload on x-ray, no chest pain, troponin normal Type II DM On Lantus/Januvia/metformin at home. Hold home antilipemics Basal bolus insulin, goal BSG [id number] Glucose checks AC/at bedtime Hyperlipidemia Continue statin Anxietydepression Continue quetiapine 150 mg at bedtime DVT prophylaxis: Lovenox Diet: Diabetic once able to be taken off BiPAP CODE STATUS: Full code Disposition PCU for respiratory failure (2) Pneumonia: (3) Acute dyspnea: (4) Elevated lactic acid level: (5) SIRS (systemic inflammatory response syndrome): (6) Uncontrolled type 2 diabetes mellitus with hyperosmolarity, without long- term current use of insulin: (7) Hypertension: (8) Hyperlipidemia: Admission and Anticipated Discharge Date Admission Date: May 23, 2022 Subjective Patient reports still having difficulty breathing. Not much improvement from yesterday. Review of Systems Review of Systems: All systems reviewed & are unremarkable except as noted in HPI & below Physical Exam Physical Exam: General: A&Ox3. NAD. Cooperative. Somnolent but arouses easily HEENT: Atraumatic, normocephalic. Vision/hearing intact Pulm: Coarse, decreased breath sounds. Symmetrical chest rise. Cardiac: RRR, -mrg. Radial pulses intact and symmetrical. Abdominal: Nontender, nondistended, soft. BS present. Ext: Warm, dry. Cap refil ~2 seconds, without pitting edema Results & Data Results & Data ([facility]) Vital Signs (Past 12 Hours) Vital Signs Temp Pulse Pulse Resp BP BP Pulse Ox 05/25/22 19:40 37.0 C 65 20 163/73 H 95 05/25/22 19:54 66 18 90 05/25/22 16:18 74 38 H 95 05/25/22 12:51 37.2 C 83 20 164/97 H 92 O2 Del Method O2 Flow Rate FiO2 05/25/22 19:40 Nasal Cannula 5.0 05/25/22 19:54 Nasal Cannula 5 05/25/22 16:18 50 05/25/22 12:51 Nasal Cannula 5.0 PG Care Time/CCT Total # of Minutes Spent Total Time Spent with Patient: Total time spent is greater than 50% in coordination of care (as documented) at patient's floor/unit and/or counseling patient: Coding Level of Care Code 26584 Subseq Hosp Care Lvl 3 Diagnoses Acute respiratory failure with hypoxia and hypercarbia J96.01; J96.02 Pneumonia J18.9 Acute dyspnea R06.00 Elevated lactic acid level R79.89 SIRS (systemic inflammatory response syndrome) R65.10 Uncontrolled type 2 diabetes mellitus with hyperosmolarity, without long-term current use of insulin E11.00 Hypertension I10 Hypertension type: essential hypertension Hyperlipidemia E78.5 Hyperlipidemia type: unspecified Time Spent (min) 35 (1) Hyperlipidemia Hyperlipidemia type: unspecified Qualified Code(s): E78.5 - Hyperlipidemia, unspecified (2) Hypertension Hypertension type: essential hypertension Qualified Code(s): I10 - Essential (primary) hypertension
[2022-05-26 06:43] LABS: Creatinine Clr Calc Pharmacy 105.5 ml/min; Est GFR (African American) 106.5 ml/min; Est GFR (Non-African American) 91.9 ml/min
[2022-05-26] MEDS: SODIUM CHLOR 7% 4 ML NEB NEB SCH ×2 (07:14→19:19)
[2022-05-26 07:21] LABS: Estimated Average Glucose 85 mg/dl; Hemoglobin A1C 4.6 % (4.5-5.6)
--- NOTE | 2022-05-26 09:08 | Pulmonology Progress Note ---
Date of Service May 26, 2022 Assessment & Plan (1) Atelectasis of left lung: (2) Respiratory failure with hypoxia and hypercapnia: Chronicity: acute Qualified Code(s): J96.01 - Acute respiratory failure with hypoxia; J96.02 - Acute respiratory failure with hypercapnia Plan Impression: 71-year-old female with multiple medical issues admitted with increasing shortness of breath. Her left lung is atelectatic and has been so for about the last [address] scan demonstrates debris within the tracheobronchial tree with obstruction of the left mainstem bronchus. Recommendations: 1. Atelectatic left lung: Based on the CT scan, I think the patient requires bronchoscopy to evaluate the tracheobronchial tree. She is a relatively high risk given her morbid obesity and hypoxemic respiratory failure however I do not see a clear alternative. Intubation may be required but I think we can potentially proceed with conscious sedation and see how she does. We will try and schedule this for the next 24 hours as the patient ate breakfast this morning. 2. A continue with 7% hypertonic saline and bronchodilators. Continue vest therapy to see if this improves pulmonary toilet as well as flutter valve. 3. Continue oxygen via nasal cannula to keep saturations at or above 88% 4. Probable sleep disordered breathing: Continue BiPAP at night. Can use as needed during the day 5. We will obtain cultures from lower respiratory tree with bronchoscopy and adjust therapy accordingly. Discussed with patient and bedside nurse. Admission and Anticipated Discharge Date Admission Date: May 23, 2022 Subjective Patient seen and examined. She feels she is coughing and starting to expectorate more phlegm. She reports that she is compliant with her noninvasive positive pressure ventilation at night. She is not experiencing any chest pain or palpitations. Review of Systems Review of Systems: All systems reviewed & are unremarkable except as noted in Subjective Physical Exam Constitutional: + morbidly obese; not in distress Neck: trachea midline, no thyromegaly Respiratory: no respiratory distress, no labored breathing, no cough and not tachypneic Cardiovascular: RRR, no murmur, no edema Gastrointestinal (Abdomen): normal bowel sounds, soft, nontender, no hepatosplenomegaly Musculoskeletal: Extremities: extremities normal to inspection Skin: no rashes, warm and dry Lymphatic: no cervical lymphadenopathy Results & Data Results & Data ([facility]) Vital Signs (Past 12 Hours) Vital Signs Temp Pulse Pulse Resp BP BP Pulse Ox 05/26/22 08:49 37.1 C 72 22 165/89 H 90 05/26/22 07:14 76 18 94 05/26/22 04:41 37.2 C 83 18 153/76 H 96 05/26/22 02:38 70 30 H 96 05/25/22 23:43 37.3 C 64 22 164/91 H 94 05/25/22 23:07 67 17 97 05/25/22 21:34 O2 Del Method O2 Flow Rate FiO2 05/26/22 08:49 Nasal Cannula 6.0 05/26/22 07:14 Nasal Cannula 5 05/26/22 04:41 BiPAP 05/26/22 02:38 50 05/25/22 23:43 BiPAP 05/25/22 23:07 50 05/25/22 21:34 Nasal Cannula 4 Laboratory Results 05/25/22 04:45 05/26/22 05:[address] SCAN OF THE CHEST WITHOUT IV CONTRAST 05/25/2022: Independently reviewed CLINICAL HISTORY: Hypoxia. COMPARISON STUDY: Chest x-ray dated 05/25/2022. Chest CT dated 12/12/2021. TECHNIQUE: CT scan of the thorax was performed from the thoracic inlet to the upper abdomen. Images are reviewed in the axial, sagittal, and coronal planes. IV contrast was not administered for this examination as per the referring clinician. A dose lowering technique was utilized adhering to the principles of ALARA. The examination is compromised by motion artifact. There is also streak artifact from the arms which could not be elevated above the chest. CT DOSE: 1460.19 mGy.cm FINDINGS: Thyroid: Imaged portions of the thyroid gland are normal in size and attenuation. Thoracic aorta: There is atherosclerotic calcification of the thoracic aorta, which is normal in caliber and demonstrates standard 3-vessel arch anatomy. Heart: The heart is enlarged and without pericardial effusion. The coronary arteries are densely calcified. The pulmonary trunk appears dilated suggesting pulmonary artery hypertension. Lungs and pleural spaces: Evaluation of the lung parenchyma is significantly degraded by motion artifact. Intralobular septal thickening is noted throughout the right lung. There is a small right pleural effusion with right patchy airspace opacities throughout the right lung. These are greatest at the right lung base. There is debris within the distal trachea. Fluid/debris fills the left mainstem bronchus and the left-sided airways with complete atelectasis/consolidation of the left lung. There is corresponding leftward shift of mediastinum. Loculated pleural fluid is seen at the left apex and at the left lung base. Mediastinum: Mildly enlarged mediastinal lymph nodes are similar to previous. Prevascular nodes measure up to 15 mm in short axis. Ashley: Not well assessed without IV contrast. Axillae: There is no axillary lymphadenopathy. Upper abdomen: There is trace perihepatic ascites. Partially visualized upper abdominal viscera is otherwise grossly unremarkable. Skeletal structures: The skeletal structures are heterogeneously osteopenic. Degenerative changes and kyphoscoliosis is noted in the thoracic spine. There are minimal thoracic compression deformities. No lytic or blastic bony lesions are seen. A right shoulder arthroplasty is in place. Chronic deformity of the left shoulder is similar to previous. IMPRESSION: 1. Significantly streak and motion compromised examination. 2. Cardiomegaly with evidence of congestive failure. 3. There is debris within the distal trachea. Fluid/debris fills the left mainstem bronchus and the left-sided airways with complete atelectasis of the left lung. Correlate clinically for evidence of pneumonia/aspiration. 4. Small pleural effusions. 5. Mild airspace opacities are seen throughout the right lung, greatest at the right lung base. This could represent a component of pulmonary edema and/or a pneumonitis. Clinical correlation will be required. 6. Mediastinal lymphadenopathy is similar to previous. 7. Additional findings as above. PG Care Time/CCT Total # of Minutes Spent Total Time Spent with Patient: Total time spent is greater than 50% in coordination of care (as documented) at patient's floor/unit and/or counseling patient: Coding Level of Care Code 93077 Subseq Hosp Care Lvl 3 Diagnoses Atelectasis of left lung J98.11 Respiratory failure with hypoxia and hypercapnia J96.01; J96.02 Chronicity: acute
[2022-05-26] MEDS: INSULIN ASPART PER UNIT SC SCH ×4 (09:18→20:25)
[2022-05-26] MEDS: LANTUS PER UNIT CHARGE SQ SCH (09:19)
[2022-05-26] MEDS: ENOXAPARIN INJ 40 MG/0.4 ML SYR SQ SCH (09:36)
--- NOTE | 2022-05-26 09:41 | XRay Report ---
XR chest 1V portable CLINICAL HISTORY: atelectasis TECHNIQUE: Single frontal radiograph of the chest was obtained. Comparison: Comparison is made to chest radiograph 05/25/2022 FINDINGS: Right reverse shoulder arthroplasty is seen. The cardiomediastinal silhouette is obscured. There is o pacification of the left hemithorax without significant cardiomediastinal shift. Right lower lung air space opacities are somewhat more prominent than on prior exam. No pneumothorax is seen. Old left rib fractures are seen. IMPRESSION: Interval mild increase in right lung base airspace disease with continued opacification of the left l car. Findings are favored to represent atelectasis, aspiration, and/or pneumonia. ACT 112: Negative or not required by law. Electronically signed by: Jerry White M.D. 05/26/2022 9:39 AM
--- NOTE | 2022-05-26 12:35 | Pharmacy Report ---
Pharmacy Glycemic Short Note 2 - Date of Service May 26, 2022 - Glycemic Short BSG Results (Last 24 hours): 05/25/22 05/25/22 05/26/22 17:03 20:01 07:45 POC Glucose 230 H 139 H 141 H 05/26/22 11:48 POC Glucose 137 H OUTPATIENT ANTIDIABETIC REGIMEN: * Lantus 35 units SC HS * Metformin 850 mg PO TIDM * Januvia 100 mg PO daily * HbA1c = 4.6% (05/25/22) ASSESSMENT: 05/26: * Traci received a total of 31 units of insulin yesterday, 24 units basal + 7 units bolus. BSGs were: [phone] mg/dL. * Received 40 mg of Solumedrol yesterday morning then it was discontinued. Cefepime discontinued as well. * Will reduce basal today by 50% to reflect previous admission data without steroids. No other changes at this point. 05/24: * Ms Roman is a 71 y/o F who presents with pneumonia. She is currently on Solu-Medrol 40 mg IV q12. * On admission, BSG was 135 mg/dL. Patient received 8 units of Lantus. * Pharmacy consulted after morning BSG of 204 mg/dL. Patient received scheduled 8 units of Lantus. * Will give 15 units tonight for total of 23 units of basal today. This is similar to previous admission. * Tighten CF and add CR for steroid hyperglycemia. * If patient continues to trend up will continue to tighten CR as this is what steroids primarily affects. PLAN FOR INPATIENT GLYCEMIC CONTROL: * Hold outpatient oral diabetes medications * Basal insulin * Lantus 12 units SC daily * Bolus insulin * NovoLog per scale ACHS or Q6hrs while NPO * Goal Range: Low 110 mg/dL - High 140 mg/dL * Correction Factor: 15 mg/dL/unit * Nutritional / Prandial insulin per carb ratio of 1 unit per 5 grams CHO consumed
[2022-05-26] MEDS: ALBUT/IPRATROP 3MG/0.5MG NEB 3 ML VIAL NEB PRN (19:19)
[2022-05-26] MEDS: ATORVASTATIN 40 MG TAB PO SCH (20:24)
[2022-05-26] MEDS: ASPIRIN 81 MG ECTAB PO SCH (20:25)
[2022-05-26] MEDS: QUEtiapine FUMARATE 100 MG TABLET PO SCH (20:25)
--- NOTE | 2022-05-26 21:45 | Hospitalist Progress Note ---
Date of Service May 26, 2022 Assessment & Plan (1) Acute respiratory failure with hypoxia and hypercarbia: Plan: Acute hypoxic respiratory failure, shortness of breath. DDx includes COPD exacerbation and PNA. _antibiotics stopped, though, kiran monitor. Sepsis was a posible diagosis at time of admission but this appears to be ruled out. If patient becomes febrile, will reconsider diagnosis. 3 days of cough, shortness of breath, increased oxygen requirements prior to admssion CXR: Persistent opacification of the left lung with underlying volume loss. concern over mucous plug. -consulted pulmonary -ordered hypertonic saline nebs, chest PT, changes code status to DNR/DNI -Plan for bronchoscopy on 05/28 - AB.3 //32 consistent with respiratory acidosis lactic acid improved with IVF. Continue empiric treatment for PNA, cefepime every 8 hours Daily CBC DDx includes COPD exacerbation and pneumonia. Patient is with scattered wheezing on admission. No PFTs available for review. Methylpred 40 twice daily. No [employer] inhalers. Hypotension improved to systolics 109 with fluids and treatment, will admit to PCU Hx CAD, cor pulmonale Continue aspirin 81 mg daily Lisinopril held for hypotension Lasix held for hypotension; will consider resuming lasix in AM TTE 12/12/2021: LV SF normal, grade 1 diastolic dysfunction, RV dilation No fluid overload on x-ray, no chest pain, troponin normal Type II DM On Lantus/Januvia/metformin at home. Hold home antilipemics Basal bolus insulin, goal BSG [id number] Glucose checks AC/at bedtime Hyperlipidemia Continue statin Anxietydepression Continue quetiapine 150 mg at bedtime DVT prophylaxis: Lovenox Diet: Diabetic once able to be taken off BiPAP CODE STATUS: Full code Disposition PCU for respiratory failure (2) Pneumonia: (3) Acute dyspnea: (4) Elevated lactic acid level: (5) SIRS (systemic inflammatory response syndrome): (6) Uncontrolled type 2 diabetes mellitus with hyperosmolarity, without long- term current use of insulin: (7) Hypertension: (8) Hyperlipidemia: Admission and Anticipated Discharge Date Admission Date: May 23, 2022 Subjective 71 yo female reports no signifcant improvement. Review of Systems Review of Systems: All systems reviewed & are unremarkable except as noted in HPI & below Physical Exam Physical Exam: General: A&Ox3. NAD. Cooperative. Somnolent but arouses easily HEENT: Atraumatic, normocephalic. Vision/hearing intact Pulm: Coarse, decreased breath sounds. Symmetrical chest rise. Cardiac: RRR, -mrg. Radial pulses intact and symmetrical. Abdominal: Nontender, nondistended, soft. BS present. Ext: Warm, dry. Cap refil ~2 seconds, without pitting edema Results & Data Results & Data ([facility]) Vital Signs (Past 12 Hours) Vital Signs Temp Pulse Pulse Resp BP Pulse Ox Pulse Ox 05/26/22 20:36 05/26/22 20:35 74 05/26/22 19:25 37.0 C 74 20 157/89 H 97 05/26/22 19:20 20 92 05/26/22 15:57 37.1 C 73 20 164/95 H 91 05/26/22 13:00 90 05/26/22 12:37 36.8 C 62 20 148/77 H 90 O2 Del Method O2 Del Method O2 Flow Rate O2 Flow Rate 05/26/22 20:36 Nasal Cannula 5 05/26/22 20:35 05/26/22 19:25 Nebulizer 05/26/22 19:20 Nasal Cannula 5 05/26/22 15:57 Nasal Cannula 5.0 05/26/22 13:00 Nasal Cannula 5 05/26/22 12:37 Nasal Cannula 5.0 PG Care Time/CCT Total # of Minutes Spent Total Time Spent with Patient: Total time spent is greater than 50% in coordination of care (as documented) at patient's floor/unit and/or counseling patient: Coding Level of Care Code 85862 Subseq Hosp Care Lvl 2 Diagnoses Acute respiratory failure with hypoxia and hypercarbia J96.01; J96.02 Pneumonia J18.9 Acute dyspnea R06.00 Elevated lactic acid level R79.89 SIRS (systemic inflammatory response syndrome) R65.10 Uncontrolled type 2 diabetes mellitus with hyperosmolarity, without long-term current use of insulin E11.00 Hypertension I10 Hypertension type: essential hypertension Hyperlipidemia E78.5 Hyperlipidemia type: unspecified Time Spent (min) 25 (1) Hyperlipidemia Hyperlipidemia type: unspecified Qualified Code(s): E78.5 - Hyperlipidemia, unspecified (2) Hypertension Hypertension type: essential hypertension Qualified Code(s): I10 - Essential (primary) hypertension
[2022-05-27] MEDS: ALBUT/IPRATROP 3MG/0.5MG NEB 3 ML VIAL NEB PRN ×2 (03:58→21:12)
[2022-05-27 04:56] LABS: Hematocrit (blood only) 34.1 % (34.1-44.9); Hemoglobin 10.8 g/dl (12.0-16.0); Mean Corpuscular Hgb Conc 31.7 g/dL (32.0-36.0); Mean Corpuscular Volume 104.3 fL (80.0-100.0); Mean Platelet Volume 8.7 fL (9.4-12.3); Platelet Count 338 K/uL (130-400); RDW Coefficient of Variation 14.1 % (11.5-14.5); RDW Standard Deviation 53.8 fL (36.4-46.3); Red Blood Count 3.27 M/uL (3.93-5.22); White Blood Count 9.64 K/ul (4.8-10.8)
[2022-05-27 05:19] LABS: C Reactive Protein 3.55 mg/dl (0-0.5); Calcium 9.5 mg/dl (8.5-10.1); Creatinine Clr Calc Pharmacy 120.4 ml/min; Est GFR (African American) 113.7 ml/min; Est GFR (Non-African American) 98.1 ml/min; Potassium 3.7 mmol/L (3.5-5.1)
--- NOTE | 2022-05-27 07:14 | XRay Report ---
SINGLE VIEW CHEST CLINICAL HISTORY: Atelectasis FINDINGS: An AP, portable, upright chest radiographs are compared to study dated 05/26/2022 and corre lated with chest CT dated 05/25/2022 The examination is degraded by portable technique and patient ro tation. The heart is enlarged noting atherosclerotic calcification of the thoracic area. There is pul monary vascular congestion. Opacification of the left hemithorax is not significantly changed. This i ndicates pleural effusion with atelectasis/consolidation. A small pleural effusion is seen on the rig ht in the right basilar airspace opacities. No pneumothorax is seen. The skeletal structures are oste openic. There are healed left-sided rib fractures. A right shoulder arthroplasty is in place. Severe chronic deformity of the left proximal humerus is unchanged. IMPRESSION: 1. Cardiomegaly with pulmonary vascular congestion. 2. Complete opacification of the left hemithorax is unchanged. 3. Small right pleural effusion with right basilar opacities. This is also similar to previous. ACT 112: Negative or not required by law. Electronically signed by: Moi Coulter M.D. 05/27/2022 7:12 AM
[2022-05-27] MEDS: SODIUM CHLOR 7% 4 ML NEB NEB SCH ×2 (07:38→21:14)
[2022-05-27] MEDS: INSULIN ASPART PER UNIT SC SCH ×4 (08:26→20:38)
[2022-05-27] MEDS ORDERED: LANTUS PER UNIT CHARGE SQ SCH (09:00)
[2022-05-27] MEDS ORDERED: fentaNYL citrate 100 MCG/2 ML VIAL ONE (10:33)
[2022-05-27] MEDS ORDERED: MIDAZOLAM HCL 1 MG/ML 2ML VIAL ONE (10:34)
--- NOTE | 2022-05-27 10:50 | Pulmonology Progress Note ---
Date of Service May 27, 2022 Assessment & Plan (1) Atelectasis of left lung: (2) Respiratory failure with hypoxia and hypercapnia: Chronicity: acute Qualified Code(s): J96.01 - Acute respiratory failure with hypoxia; J96.02 - Acute respiratory failure with hypercapnia Plan Impression: 71-year-old female with multiple medical issues admitted with increasing shortness of breath. Her left lung is atelectatic and has been so for about the last [address] scan demonstrates debris within the tracheobronchial tree with obstruction of the left mainstem bronchus. She is n.p.o. for bronchoscopy this morning. Recommendations: 1. Atelectatic left lung: Await bronchoscopy findings 2. A continue with 7% hypertonic saline and bronchodilators. Continue vest therapy to see if this improves pulmonary toilet as well as flutter valve. 3. Continue oxygen via nasal cannula to keep saturations at or above 88% 4. Probable sleep disordered breathing: Continue BiPAP at night. Can use as needed during the day. Will likely need going home. 5. We will obtain cultures from lower respiratory tree with bronchoscopy and adjust therapy accordingly. Discussed with patient and bedside nurse. Admission and Anticipated Discharge Date Admission Date: May 23, 2022 Subjective Patient seen and examined. EMR reviewed. Overnight the patient required reapplication of noninvasive positive pressure ventilation and slept well. She desaturates on oxygen. She continues to have issues with pulmonary toilet is not really coughing or bringing up much phlegm. She is n.p.o. for bronchoscopy today. She was agreeable to proceed and consented for the procedure. Review of Systems Review of Systems: All systems reviewed & are unremarkable except as noted in Subjective Physical Exam Constitutional: + morbidly obese; not in distress Neck: trachea midline, no thyromegaly Respiratory: no respiratory distress, no labored breathing, no cough and not tachypneic Cardiovascular: RRR, no murmur, no edema Gastrointestinal (Abdomen): normal bowel sounds, soft, nontender, no hepatosplenomegaly Musculoskeletal: Extremities: extremities normal to inspection Skin: no rashes, warm and dry Lymphatic: no cervical lymphadenopathy Results & Data Results & Data ([facility]) Vital Signs (Past 12 Hours) Vital Signs Temp Pulse Pulse Resp BP BP Pulse Ox 05/27/22 09:31 05/27/22 09:00 05/27/22 07:00 76 05/27/22 07:56 36.7 C 69 19 150/91 H 97 05/27/22 07:38 65 26 H 95 05/27/22 07:38 64 26 H 95 05/27/22 04:00 77 25 H 99 05/27/22 03:58 73 20 93 05/27/22 03:46 37.0 C 70 20 163/71 H 93 05/26/22 22:57 86 24 97 05/26/22 23:07 36.9 C 81 19 148/74 H 96 Pulse Ox O2 Del Method O2 Del Method O2 Flow Rate FiO2 05/27/22 09:31 92 Nasal Cannula 5 05/27/22 09:00 BiPAP 05/27/22 07:00 05/27/22 07:56 BiPAP 05/27/22 07:38 BiPAP 50 05/27/22 07:38 50 05/27/22 04:00 50 05/27/22 03:58 BiPAP 50 05/27/22 03:46 BiPAP 50 05/26/22 22:57 50 05/26/22 23:07 BiPAP 50 Critical Care Results & Data Vital Signs (Past 12 Hours) Vital Signs Temp Pulse Pulse Resp BP BP BP 05/27/22 11:03 86 30 H 147/68 H 05/27/22 11:02 76 23 05/27/22 11:00 90 18 153/82 H 05/27/22 10:58 113 H 16 136/77 05/27/22 10:56 69 20 05/27/22 10:55 69 29 H 05/27/22 10:55 145/65 H 05/27/22 10:54 77 30 H 05/27/22 10:53 69 26 H 05/27/22 10:53 145/66 H 05/27/22 10:52 67 24 05/27/22 10:50 65 24 05/27/22 10:50 158/72 H 05/27/22 10:36 20 05/27/22 09:31 05/27/22 09:00 05/27/22 07:00 76 05/27/22 07:56 36.7 C 69 19 150/91 H 05/27/22 07:38 65 26 H 05/27/22 07:38 64 26 H 05/27/22 04:00 77 25 H 05/27/22 03:58 73 20 05/27/22 03:46 37.0 C 70 20 163/71 H Pulse Ox Pulse Ox O2 Del Method O2 Del Method O2 Flow Rate O2 Flow Rate FiO2 05/27/22 11:03 88 L Oxymask 15 05/27/22 11:02 82 L 05/27/22 11:00 84 L Oxymask 15 05/27/22 10:58 93 Oxymask 10 05/27/22 10:56 92 05/27/22 10:55 91 05/27/22 10:55 05/27/22 10:54 91 05/27/22 10:53 90 05/27/22 10:53 05/27/22 10:52 05/27/22 10:50 85 L 05/27/22 10:50 05/27/22 10:36 91 Oxymask 10 05/27/22 09:31 92 Nasal Cannula 5 05/27/22 09:00 BiPAP 05/27/22 07:00 05/27/22 07:56 97 BiPAP 05/27/22 07:38 95 BiPAP 50 05/27/22 07:38 95 50 05/27/22 04:00 99 50 05/27/22 03:58 93 BiPAP 50 05/27/22 03:46 93 BiPAP 50 Lab & Micro Results (Past 24 Hours) RBC 3.27 M/uL (3.93-5.22) L 05/27/22 WBC 9.64 K/ul (4.8-10.8) 05/27/22 Hgb 10.8 g/dl (12.0-16.0) L 05/27/22 Hct 34.1 % (34.1-44.9) 05/27/22 MCV 104.3 fL (80.0-100.0) H 05/27/22 MCH 33.0 pg (25.0-34.0) 05/27/22 MCHC 31.7 g/dL (32.0-36.0) L 05/27/22 RDW Standard Deviation 53.8 fL (36.4-46.3) H 05/27/22 RDW Coefficient of Variation 14.1 % (11.5-14.5) 05/27/22 Plt Count 338 K/uL (130-400) 05/27/22 MPV 8.7 fL (9.4-12.3) L 05/27/22 Na 141 mmol/L (136-145) 05/27/22 K 3.7 mmol/L (3.5-5.1) 05/27/22 Cl 100 mmol/L (98-107) 05/27/22 CO2 34 mmol/L (21-32) H 05/27/22 Anion Gap 7 (3-11) 05/27/22 BUN 27 mg/dl (6-23) H 05/27/22 Creatinine 0.50 mg/dl (0.6-1.2) L 05/27/22 Estimated GFR ( Amer) 113.7 ml/min 05/27/22 Estimated GFR (Non-Af Amer) 98.1 ml/min 05/27/22 BUN/Creatinine Ratio 54.0 (10-20) H 05/27/22 Glu 160 mg/dl (70-99(Fasting)) H 05/27/22 Ca 9.5 mg/dl (8.5-10.1) 05/27/22 Calcium Level 9.5 mg/dl (8.5-10.1) 05/27/22 04:33 Microbiology 05/23/22 17:45 Urine Culture - Final Urine,Clean Catch Klebsiella pneumoniae Pseudomonas aeruginosa Diagnostic Findings (Past 24 Hours) Chest X-Ray 05/27/22 07:00 SINGLE VIEW CHEST CLINICAL HISTORY: Atelectasis FINDINGS: An AP, portable, upright chest radiographs are compared to study dated 05/26/2022 and correlated with chest CT dated 05/25/2022 The examination is degraded by portable technique and patient rotation. The heart is enlarged noting atherosclerotic calcification of the thoracic area. There is pulmonary vascular congestion. Opacification of the left hemithorax is not significantly changed. This indicates pleural effusion with atelectasis/consolidation. A small pleural effusion is seen on the right in the right basilar airspace opacities. No pneumothorax is seen. The skeletal structures are osteopenic. There are healed left-sided rib fractures. A right shoulder arthroplasty is in place. Severe chronic deformity of the left proximal humerus is unchanged. IMPRESSION: 1. Cardiomegaly with pulmonary vascular congestion. 2. Complete opacification of the left hemithorax is unchanged. 3. Small right pleural effusion with right basilar opacities. This is also similar to previous. ACT 112: Negative or not required by law. Electronically signed by: Moi Coulter M.D. 05/27/2022 7:12 AM I & O Totals 24 Hours 05/26/22 05/27/22 05/28/22 06:59 06:59 06:59 Intake Total 1300 / 1300 Output Total 3300 / 3300 1050 / 1050 Balance -1999 / -2000 -1050 / -1050 Cumulative 05/23/22 12:59 thru 05/27/22 05:06 Intake Total 5992 Output Total 6300 Balance -308 RT Ventilator Mngmt (Last Documented) Ventilator Ordered Settings Respiratory Rate 30 05/27/22 11:03 Fraction of Inspired Oxygen 50 05/27/22 07:38 Ventilator - PT Measurements Respiratory Rate 30 PG Care Time/CCT Total # of Minutes Spent Total Time Spent with Patient: Total time spent is greater than 50% in coordination of care (as documented) at patient's floor/unit and/or counseling patient: Coding Level of Care Code 71387 Subseq Hosp Care Lvl 2 Diagnoses Atelectasis of left lung J98.11 Respiratory failure with hypoxia and hypercapnia J96.01; J96.02 Chronicity: acute
--- NOTE | 2022-05-27 10:50 | Pre Anesthesia Assessment ---
Date of Service May 27, 2022 Pre Sedation Assessment Vital Signs Temp Pulse Pulse Resp BP BP Pulse Ox 05/27/22 09:31 05/27/22 09:00 05/27/22 07:00 76 05/27/22 07:56 36.7 C 69 19 150/91 H 97 05/27/22 07:38 65 26 H 95 05/27/22 07:38 64 26 H 95 05/27/22 04:00 77 25 H 99 05/27/22 03:58 73 20 93 05/27/22 03:46 37.0 C 70 20 163/71 H 93 05/26/22 22:57 86 24 97 05/26/22 23:07 36.9 C 81 19 148/74 H 96 05/26/22 20:36 05/26/22 20:35 74 05/26/22 19:25 37.0 C 74 20 157/89 H 97 05/26/22 19:20 20 92 05/26/22 15:57 37.1 C 73 20 164/95 H 91 05/26/22 13:00 05/26/22 12:37 36.8 C 62 20 148/77 H 90 Pulse Ox O2 Del Method O2 Del Method O2 Flow Rate O2 Flow Rate FiO2 05/27/22 09:31 92 Nasal Cannula 5 05/27/22 09:00 BiPAP 05/27/22 07:00 05/27/22 07:56 BiPAP 05/27/22 07:38 BiPAP 50 05/27/22 07:38 50 05/27/22 04:00 50 05/27/22 03:58 BiPAP 50 05/27/22 03:46 BiPAP 50 05/26/22 22:57 50 05/26/22 23:07 BiPAP 50 05/26/22 20:36 Nasal Cannula 5 05/26/22 20:35 05/26/22 19:25 Nebulizer 05/26/22 19:20 Nasal Cannula 5 05/26/22 15:57 Nasal Cannula 5.0 05/26/22 13:00 90 Nasal Cannula 5 05/26/22 12:37 Nasal Cannula 5.0 Pre-Sedation Airway Assessment Smoking Status: Former smoker Hx Sleep Apnea: Yes Short, Thick Neck: Yes Thyromental Distance: > or= 3.5 Finger Breadths Oral Cavity: + WNL Mallampati Class: I ASA: ASA3 NPO Status Date of Last Intake of Fluids: 05/26/22 Time of Last Intake of Fluids: 23:00 Date of Last Intake of Solid Food: 05/26/22 Time of Last Intake of Solid Foods: 17:00 Notes The planned sedation has been discussed with the patient. Informed Consent was obtained. I have identified the patient, determined the appropriateness of sedation and have assessed the patient immediately prior to the procedure. All medicine(s) and interventions are by my order.
[2022-05-27] MEDS ORDERED: fentaNYL citrate 100 MCG/2 ML VIAL IV STA (11:08)
[2022-05-27] MEDS ORDERED: MIDAZOLAM HCL 1 MG/ML 2ML VIAL IV STA (11:09)
--- NOTE | 2022-05-27 11:11 | Post Anesthesia Assessment ---
Date of Service May 27, 2022 Post Sedation Assessment Vital Signs Temp Pulse Pulse Resp BP BP BP 05/27/22 11:08 139/75 05/27/22 11:07 84 19 05/27/22 11:06 81 24 05/27/22 11:05 148/87 H 05/27/22 11:04 87 15 139/75 05/27/22 11:03 86 30 H 147/68 H 05/27/22 11:02 76 23 05/27/22 11:00 90 18 153/82 H 05/27/22 10:58 113 H 16 136/77 05/27/22 10:56 69 20 05/27/22 10:55 69 29 H 05/27/22 10:55 145/65 H 05/27/22 10:54 77 30 H 05/27/22 10:53 69 26 H 05/27/22 10:53 145/66 H 05/27/22 10:52 67 24 05/27/22 10:50 65 24 05/27/22 10:50 158/72 H 05/27/22 10:36 20 05/27/22 09:31 05/27/22 09:00 05/27/22 07:00 76 05/27/22 07:56 36.7 C 69 19 150/91 H 05/27/22 07:38 65 26 H 05/27/22 07:38 64 26 H 05/27/22 04:00 77 25 H 05/27/22 03:58 73 20 05/27/22 03:46 37.0 C 70 20 163/71 H 05/26/22 22:57 86 24 05/26/22 23:07 36.9 C 81 19 148/74 H 05/26/22 20:36 05/26/22 20:35 74 05/26/22 19:25 37.0 C 74 20 157/89 H 05/26/22 19:20 20 05/26/22 15:57 37.1 C 73 20 164/95 H 05/26/22 13:00 05/26/22 12:37 36.8 C 62 20 148/77 H Pulse Ox Pulse Ox O2 Del Method O2 Del Method O2 Flow Rate O2 Flow Rate FiO2 05/27/22 11:08 05/27/22 11:07 87 L 05/27/22 11:06 88 L 05/27/22 11:05 05/27/22 11:04 91 05/27/22 11:03 88 L Oxymask 15 05/27/22 11:02 82 L 05/27/22 11:00 84 L Oxymask 15 05/27/22 10:58 93 Oxymask 10 05/27/22 10:56 92 05/27/22 10:55 91 05/27/22 10:55 05/27/22 10:54 91 05/27/22 10:53 90 05/27/22 10:53 05/27/22 10:52 05/27/22 10:50 85 L 05/27/22 10:50 05/27/22 10:36 91 Oxymask 10 05/27/22 09:31 92 Nasal Cannula 5 05/27/22 09:00 BiPAP 05/27/22 07:00 05/27/22 07:56 97 BiPAP 05/27/22 07:38 95 BiPAP 50 05/27/22 07:38 95 50 05/27/22 04:00 99 50 05/27/22 03:58 93 BiPAP 50 05/27/22 03:46 93 BiPAP 50 05/26/22 22:57 97 50 05/26/22 23:07 96 BiPAP 50 05/26/22 20:36 Nasal Cannula 5 05/26/22 20:35 05/26/22 19:25 97 Nebulizer 05/26/22 19:20 92 Nasal Cannula 5 05/26/22 15:57 91 Nasal Cannula 5.0 05/26/22 13:00 90 Nasal Cannula 5 05/26/22 12:37 90 Nasal Cannula 5.0 Recovery Score Activity: Moves 4 extremities Respiration: Deep Breath/Cough Circulation: +/-20% PreAnes Value Consciousness: Arouseable (by name) Oxygen Saturation: O2 needed for >90% Post Anesthesia Score: 8 Discharge Sedation Level of Care: Fast Track Phase II Post Sedation Plan On clinical assessment, the patient appears to have tolerated the sedation without complications. Patient is recovering as anticipated. Patient will continue to be monitored by nursing and may be discharged when sedation discharge criteria are met per below protocol. Upon Completions of procedure up to 15 minutes continue every 5 minute vital signs and the P.A.R. score; then discharge to a Phase I or Fast Track to Phase II per the following guidelines: * Discharge Patient to appropriate Phase II area if PAR is 8 or greater or return to pre- procedure baseline. The post - procedure orders will be as directed. * If PAR score is less than 8 or not return to pre-procedure baseline then patient will follow Phase I monitoring till PAR is reached for Phase II. The Phase I may be done in procedure room or may call to secure a Phase I area. * If naloxone or flumazenil are used for reversal, hold in Phase I for continued monitoring from when last reversal dose was given for a minimum of 60 minutes or longer pending the nurse and/or physician discretion of patient condition before discharge to Phase II. Please call the Sedation Physician to re-evaluate and complete post-note for discharge to Phase II area. Do NOT discharge from procedure sedation or Phase 1 until post- sedation evaluation note is complete by procedure /sedation MD Sedation Discharge Instructions to be given to the patient at discharge to home.
--- NOTE | 2022-05-27 11:15 | Procedure Note ---
Procedure Note Date of Service May 27, 2022 Note Procedure: Fiberoptic bronchoscopy Therapeutic aspiration of secretions, initial Conscious sedation Provider: Cuco Gonzalez MD Consent: Signed by patient and timeout verified prior to procedure. Sedation start: 1044 Sedation end: 1111 Conscious sedation: 50 mg fentanyl, 2 mg Versed, topical lidocaine per RT protocol Estimated blood loss: Less than 5 mL Procedure: Patient was brought to the intensive care unit. Consent was verified. Appropriate radiographic studies had been reviewed prior to the procedure. Standard monitoring was applied. Oxygen was administered. After topical anesthesia of the airways per respiratory therapy protocol, the fiberoptic scope was advanced through the left nares. Oropharynx was unremarkable. Vocal cords were visualized and were normal in function and appearance. Topical anesthesia of the cords was achieved with instillation of lidocaine through the scope. Scope was then passed through the vocal cords. The trachea was slightly tortuous. Main michelle was splayed. Anesthesia of the lower airways was achieved with instillation of lidocaine through the scope. A sequential and systematic examination of the lower airways was conducted. The right-sided airways were normal in anatomic configuration with thin mucus and the mucosa appeared normal. Left-sided airways were obstructed with thick mucous plugging requiring extensive saline lavage which tend to fail the channel and required removal and reinsertion of the bronchoscope on several occasions. Eventually we were able to clear the airways. Respiratory samples were collected for microbiologic analysis. The mucosa appeared inflamed. There was no endobronchial lesion and the airways appeared overall normal however they were slightly edematous. No endobronchial lesions identified. The bronchoscope was then removed from the airways. The patient tolerated the procedure well without obvious complication. Patient was returned to the recovery room. Impression: 1. Patent tracheobronchial tree with no evidence of endobronchial obstruction. 2. Extensive mucus plugging in the left mainstem bronchus. Status post lavage. 3. Given the chronicity of the patient's atelectatic lung and lack of endobronchial lesion, suspect this likely represents drowned lung and it may not Re aerate over time. Await microbiologic studies Coding CPT Codes Pulmonary/Thoracic - Pulmonary and Thoracic: 09913 Dx bronchoscopy/wash ([id number]) Sedation/Anesthesia - Sedation/Anesthesia: 21048 Mod Sedation by the same physician;Init15 Min Child Age 5 & Up ([id number]) Sedation/Anesthesia - Sedation/Anesthesia: 45304 Mod Sedation by the same physician; Ea [id number] Minutes ([id number]) [facility] [place] Procedure Codes (Charges) Pulmonary/Thoracic Procedure 1: Pulmonary and Thoracic: 26651 Dx bronchoscopy/wash Sedation/Anesthesia Procedure 2: Sedation/Anesthesia: 37934 Mod Sedation by the same physician;Init15 Min Child Age 5 & Up Procedure 3: Sedation/Anesthesia: 71165 Mod Sedation by the same physician; Ea [id number] Minutes Total Sedation Time (minutes): 29
--- NOTE | 2022-05-27 14:50 | Pharmacy Report ---
Pharmacy Glycemic Short Note 2 - Date of Service May 27, 2022 - Glycemic Short BSG Results (Last 24 hours): 05/26/22 05/26/22 05/27/22 16:49 20:07 04:33 Glucose 160 H POC Glucose 126 H 229 H 05/27/22 12:26 Glucose POC Glucose 196 H OUTPATIENT ANTIDIABETIC REGIMEN: * Lantus 35 units SC HS * Metformin 850 mg PO TIDM * Januvia 100 mg PO daily * HbA1c = 4.6% (05/25/22) ASSESSMENT: 05/27: * Patient received total of 20 units of insulin yesterday, of which 12 units were basal insulin * Fasting BSG 160 mg/dL - NPO now, AM basal held. Unclear how long patient to be NPO. Lunch BSG trending up. Will resume basal with dinner but reduce ~25% for NPO status 05/26: * Traci received a total of 31 units of insulin yesterday, 24 units basal + 7 units bolus. BSGs were: 553-169-230-139 mg/dL. * Received 40 mg of Solumedrol yesterday morning then it was discontinued. Cefepime discontinued as well. * Will reduce basal today by 50% to reflect previous admission data without steroids. No other changes at this point. 05/24: * Ms Roman is a 71 y/o F who presents with pneumonia. She is currently on Solu-Medrol 40 mg IV q12. * On admission, BSG was 135 mg/dL. Patient received 8 units of Lantus. * Pharmacy consulted after morning BSG of 204 mg/dL. Patient received scheduled 8 units of Lantus. * Will give 15 units tonight for total of 23 units of basal today. This is similar to previous admission. * Tighten CF and add CR for steroid hyperglycemia. * If patient continues to trend up will continue to tighten CR as this is what steroids primarily affects. PLAN FOR INPATIENT GLYCEMIC CONTROL: * Hold outpatient oral diabetes medications * Basal insulin * Lantus 9 units SC x1 today for NPO status * Bolus insulin * NovoLog per scale ACHS or Q6hrs while NPO * Goal Range: Low 110 mg/dL - High 140 mg/dL * Correction Factor: 15 mg/dL/unit * Nutritional / Prandial insulin per carb ratio of 1 unit per 5 grams CHO consumed
[2022-05-27] MEDS ORDERED: LANTUS PER UNIT CHARGE SQ ONE (18:00)
[2022-05-27] MEDS: QUEtiapine FUMARATE 100 MG TABLET PO SCH (20:35)
[2022-05-27] MEDS: ATORVASTATIN 40 MG TAB PO SCH (20:35)
[2022-05-27] MEDS: ASPIRIN 81 MG ECTAB PO SCH (20:35)
--- NOTE | 2022-05-27 22:20 | Hospitalist Progress Note ---
Date of Service May 27, 2022 Assessment & Plan (1) Acute respiratory failure with hypoxia and hypercarbia: Plan: Acute hypoxic respiratory failure, shortness of breath. DDx includes COPD exacerbation and PNA. _antibiotics stopped, though, kiran monitor. Sepsis was a posible diagosis at time of admission but this appears to be ruled out. If patient becomes febrile, will reconsider diagnosis. 3 days of cough, shortness of breath, increased oxygen requirements prior to admssion CXR: Persistent opacification of the left lung with underlying volume loss. concern over mucous plug. -consulted pulmonary -ordered hypertonic saline nebs, chest PT, changes code status to DNR/DNI -Plan for bronchoscopy on 05/27 later today. lactic acid improved with IVF. Continue empiric treatment for PNA, cefepime every 8 hours Daily CBC DDx includes COPD exacerbation and pneumonia. Patient is with scattered wheezing on admission. No PFTs available for review. Methylpred 40 twice daily. No [employer] inhalers. Hypotension improved to systolics 109 with fluids and treatment, will admit to PCU Hx CAD, cor pulmonale Continue aspirin 81 mg daily Lisinopril held for hypotension Lasix held for hypotension; will consider resuming lasix in AM TTE 12/12/2021: LV SF normal, grade 1 diastolic dysfunction, RV dilation No fluid overload on x-ray, no chest pain, troponin normal Type II DM On Lantus/Januvia/metformin at home. Hold home antilipemics Basal bolus insulin, goal BSG [id number] Glucose checks AC/at bedtime Hyperlipidemia Continue statin Anxietydepression Continue quetiapine 150 mg at bedtime DVT prophylaxis: Lovenox Diet: Diabetic once able to be taken off BiPAP CODE STATUS: Full code Disposition PCU for respiratory failure (2) Pneumonia: (3) Acute dyspnea: (4) Elevated lactic acid level: (5) SIRS (systemic inflammatory response syndrome): (6) Uncontrolled type 2 diabetes mellitus with hyperosmolarity, without long- term current use of insulin: (7) Hypertension: (8) Hyperlipidemia: Admission and Anticipated Discharge Date Admission Date: May 23, 2022 Subjective 71 yo female reports no improvement Seen prior to bronch. Review of Systems Review of Systems: All systems reviewed & are unremarkable except as noted in HPI & below Physical Exam Physical Exam: General: A&Ox3. NAD. Cooperative. Somnolent but arouses easily HEENT: Atraumatic, normocephalic. Vision/hearing intact Pulm: Coarse, decreased breath sounds. Symmetrical chest rise. Cardiac: RRR, -mrg. Radial pulses intact and symmetrical. Abdominal: Nontender, nondistended, soft. BS present. Ext: Warm, dry. Cap refil ~2 seconds, without pitting edema Results & Data Results & Data ([facility]) Vital Signs (Past 12 Hours) Vital Signs Temp Pulse Pulse Resp BP BP BP 05/27/22 21:44 05/27/22 21:17 05/27/22 21:00 05/27/22 21:00 75 32 H 05/27/22 21:14 79 32 H 05/27/22 20:17 05/27/22 20:07 72 05/27/22 19:51 05/27/22 19:30 37.0 C 75 19 178/63 H 05/27/22 16:06 36.7 C 70 19 123/74 05/27/22 10:55 05/27/22 11:57 36.8 C 66 16 128/62 05/27/22 11:41 36.8 C 72 24 123/88 05/27/22 11:30 74 26 H 152/81 H 05/27/22 11:08 139/75 05/27/22 11:07 84 19 05/27/22 11:06 81 24 05/27/22 11:05 148/87 H 05/27/22 11:04 87 15 139/75 05/27/22 11:03 86 30 H 147/68 H 05/27/22 11:02 76 23 05/27/22 11:00 90 18 153/82 H 05/27/22 10:58 113 H 16 136/77 05/27/22 10:56 69 20 05/27/22 10:55 69 29 H 05/27/22 10:55 145/65 H 05/27/22 10:54 77 30 H 05/27/22 10:53 69 26 H 05/27/22 10:53 145/66 H 05/27/22 10:52 67 24 05/27/22 10:50 65 24 05/27/22 10:50 158/72 H 05/27/22 11:20 75 24 139/73 05/27/22 11:09 36.9 C 87 19 150/76 H 05/27/22 10:36 20 Pulse Ox Pulse Ox O2 Del Method O2 Del Method O2 Flow Rate O2 Flow Rate FiO2 05/27/22 21:44 70 05/27/22 21:17 92 BiPAP 05/27/22 21:00 81 L Oxymask 15 05/27/22 21:00 93 50 05/27/22 21:14 93 BiPAP 50 05/27/22 20:17 92 Oxymask 10 05/27/22 20:07 05/27/22 19:51 Oxymask 8 05/27/22 19:30 05/27/22 16:06 94 Oxymask 6.0 05/27/22 10:55 Oxymask 05/27/22 11:57 92 Oxymask 8 05/27/22 11:41 94 Oxymask 10 05/27/22 11:30 91 Oxymask 15 05/27/22 11:08 05/27/22 11:07 87 L 05/27/22 11:06 88 L 05/27/22 11:05 05/27/22 11:04 91 05/27/22 11:03 88 L Oxymask 15 05/27/22 11:02 82 L 05/27/22 11:00 84 L Oxymask 15 05/27/22 10:58 93 Oxymask 10 05/27/22 10:56 92 05/27/22 10:55 91 05/27/22 10:55 05/27/22 10:54 91 05/27/22 10:53 90 05/27/22 10:53 05/27/22 10:52 05/27/22 10:50 85 L 05/27/22 10:50 05/27/22 11:20 91 Oxymask 15 05/27/22 11:09 92 Oxymask 15 05/27/22 10:36 91 Oxymask 10 PG Care Time/CCT Total # of Minutes Spent Total Time Spent with Patient: Total time spent is greater than 50% in coordination of care (as documented) at patient's floor/unit and/or counseling patient: Coding Level of Care Code 89473 Subseq Hosp Care Lvl 2 Diagnoses Acute respiratory failure with hypoxia and hypercarbia J96.01; J96.02 Pneumonia J18.9 Acute dyspnea R06.00 Elevated lactic acid level R79.89 SIRS (systemic inflammatory response syndrome) R65.10 Uncontrolled type 2 diabetes mellitus with hyperosmolarity, without long-term current use of insulin E11.00 Hypertension I10 Hypertension type: essential hypertension Hyperlipidemia E78.5 Hyperlipidemia type: unspecified Time Spent (min) 25 (1) Hyperlipidemia Hyperlipidemia type: unspecified Qualified Code(s): E78.5 - Hyperlipidemia, unspecified (2) Hypertension Hypertension type: essential hypertension Qualified Code(s): I10 - Essential (primary) hypertension
[2022-05-28] MEDS: SODIUM CHLOR 7% 4 ML NEB NEB SCH ×2 (07:16→19:45)
[2022-05-28] MEDS: INSULIN ASPART PER UNIT SC SCH ×4 (08:45→21:48)
[2022-05-28] MEDS: LANTUS PER UNIT CHARGE SQ SCH (08:45)
--- NOTE | 2022-05-28 11:22 | Pulmonology Progress Note ---
Date of Service May 28, 2022 Assessment & Plan (1) Atelectasis of left lung: (2) Respiratory failure with hypoxia and hypercapnia: Chronicity: acute Qualified Code(s): J96.01 - Acute respiratory failure with hypoxia; J96.02 - Acute respiratory failure with hypercapnia Plan Impression: 71-year-old female with multiple medical issues admitted with increasing shortness of breath. Her left lung is atelectatic and has been so for about the last [address] scan demonstrates debris within the tracheobronchial tree with obstruction of the left mainstem bronchus. Bronchoscopy performed 05/27/2022 demonstrated some thick mucoid secretions but no endobronchial lesion. The lung is likely drowned and unlikely to come up. The patient's morbid obesity and compression of the left mainstem bronchus due to the patient being essentially bedbound morbidly obese and cardiac compression is the likely etiology. Recommendations: 1. Atelectatic left lung: Cultures are pending. I think the patient would be better if she can be out of bed up to the chair lose weight. Unlikely that any of these interventions are going to occur. 2. A continue with 7% hypertonic saline and bronchodilators. Continue vest therapy to see if this improves pulmonary toilet as well as flutter valve. 3. Continue oxygen via nasal cannula to keep saturations at or above 88% 4. Probable sleep disordered breathing: Continue BiPAP at night. Can use as needed during the day. Will likely need going home. Outpatient sleep study can be accomplished 5. Cultures from the respiratory tree are pending. The patient had Klebsiella and Pseudomonas grow from urine culture. Defer to primary service for treatment and will likely cover any respiratory pathogens. Discussed with patient and bedside nurse. At this point time her respiratory issues appear to be back to her chronic stable state. Pulmonary will sign off at this point time. Feel free to contact us if we can be of additional assista nce Admission and Anticipated Discharge Date Admission Date: May 23, 2022 Subjective Patient seen and examined. She is sleeping. She is easily arousable. According to the nurse the patient used CPAP all night last night. She feels better after her bronchoscopy yesterday. She is not suffered any adverse sequelae. The airways were patent. Review of Systems Review of Systems: All systems reviewed & are unremarkable except as noted in Subjective Physical Exam Constitutional: + morbidly obese; not in distress ENMT: Mallampati Class: I Neck: trachea midline, no thyromegaly Respiratory: no respiratory distress, no labored breathing, no cough and not tachypneic Cardiovascular: RRR, no murmur, no edema Gastrointestinal (Abdomen): normal bowel sounds, soft, nontender, no hepatosplenomegaly Musculoskeletal: Extremities: extremities normal to inspection Skin: no rashes, warm and dry Lymphatic: no cervical lymphadenopathy Results & Data Results & Data ([facility]) Vital Signs (Past 12 Hours) Vital Signs Temp Pulse Pulse Pulse Resp BP Pulse Ox 05/28/22 11:00 92 05/28/22 08:00 05/28/22 07:00 77 05/28/22 07:20 36.7 C 80 20 111/61 96 05/28/22 07:20 72 24 91 05/28/22 04:10 36.7 C 88 17 131/78 98 05/28/22 03:42 75 23 99 O2 Del Method O2 Flow Rate FiO2 05/28/22 11:00 Nasal Cannula 5 05/28/22 08:00 Nasal Cannula 6 05/28/22 07:00 05/28/22 07:20 Oxymask 6.0 05/28/22 07:20 Oxymask 10 05/28/22 04:10 BiPAP 50 05/28/22 03:42 50 Critical Care Results & Data Vital Signs (Past 12 Hours) Vital Signs Temp Pulse Pulse Pulse Resp BP Pulse Ox 05/28/22 11:00 92 05/28/22 08:00 05/28/22 07:00 77 05/28/22 07:20 36.7 C 80 20 111/61 96 05/28/22 07:20 72 24 91 05/28/22 04:10 36.7 C 88 17 131/78 98 05/28/22 03:42 75 23 99 O2 Del Method O2 Flow Rate FiO2 05/28/22 11:00 Nasal Cannula 5 05/28/22 08:00 Nasal Cannula 6 05/28/22 07:00 05/28/22 07:20 Oxymask 6.0 05/28/22 07:20 Oxymask 10 05/28/22 04:10 BiPAP 50 05/28/22 03:42 50 Lab & Micro Results (Past 24 Hours) No Data to Display No Data to Display No Data to Display [facility] 05/27/22 Unknown Acid Fast Bacilli Smear - Final Bronch Wash,Left Lower Lobe 05/27/22 Unknown Fungal Smear - Final Bronch Wash,Left Lower Lobe Fungal Culture - Preliminary No yeast or fungus isolated - Report 1, Additional Report to Follow. 05/27/22 Unknown Gram Stain - Final Bronch Wash,Left Lower Lobe I & O Totals 24 Hours 05/27/22 05/28/22 05/29/22 06:59 06:59 06:59 Intake Total 125 / 125 Output Total 1050 / 1050 2049 Balance -1050 / -1050 -1925 / -1925 Cumulative 05/23/22 12:59 thru 05/28/22 05:35 Intake Total 6117 Output Total 8350 Balance -2233 RT Ventilator Mngmt (Last Documented) Ventilator Ordered Settings Respiratory Rate 24 05/28/22 07:20 Fraction of Inspired Oxygen 50 05/28/22 04:10 Ventilator - PT Measurements Respiratory Rate 24 PG Care Time/CCT Total # of Minutes Spent Total Time Spent with Patient: Total time spent is greater than 50% in coordination of care (as documented) at patient's floor/unit and/or counseling patient: Coding Level of Care Code 08588 Subseq Hosp Care Lvl 2 Diagnoses Atelectasis of left lung J98.11 Respiratory failure with hypoxia and hypercapnia J96.01; J96.02 Chronicity: acute
[2022-05-28] MEDS: GABAPENTIN 300 MG CAP PO SCH ×2 (14:46→21:37)
--- NOTE | 2022-05-28 15:51 | Hospitalist Progress Note ---
Date of Service May 28, 2022 Assessment & Plan (1) Acute respiratory failure with hypoxia and hypercarbia: Plan: Acute hypoxic respiratory failure, shortness of breath. - Initially received solu-medrol for COPD exacerbation and cefepime for PNA. Stopped on day of admission. - Biofire PCR negative - 3 days of cough, shortness of breath, increased oxygen requirements prior to admssion - CXR: Persistent opacification of the left lung with underlying volume loss. concern over mucous plug. - Appreciate pulmonology management - ordered hypertonic saline nebs, chest PT - s/p bronchoscopy [05/27], light normal priscilla on microscopy (2) Acute dyspnea: (3) Elevated lactic acid level: (4) Uncontrolled type 2 diabetes mellitus with hyperosmolarity, without long- term current use of insulin: Plan: On Lantus/Januvia/metformin at home. Hold home meds Basal bolus insulin, goal BSG [id number] Glucose checks AC/at bedtime (5) Hypertension: Plan: Continue aspirin 81 mg daily Lisinopril held for hypotension Lasix held for hypotension TTE 12/12/2021: LV SF normal, grade 1 diastolic dysfunction, RV dilation No fluid overload on x-ray, no chest pain, troponin normal (6) Hyperlipidemia: Plan: Continue statin (7) Cor pulmonale: (8) Anxiety: Plan: Continue quetiapine 150 mg at bedtime Plan DVT prophylaxis: Lovenox Diet: T2DM CODE STATUS: DNR/DNI Disposition: stable for downgrade to med/surg, no significant arrhythmias on telemetry Admission and Anticipated Discharge Date Admission Date: May 23, 2022 Subjective Turned down oxygen in the room to her usual 4LPM O2 and saturating above 90% at this time. She reports needing to transfer to wheelchair. No fever or chills. Procalcitonin negative. Awaiting PT/OT evals. Review of Systems Review of Systems: All systems reviewed & are unremarkable except as noted in Subjective Physical Exam Constitutional: + morbidly obese; not in distress Neck: trachea midline, no thyromegaly Respiratory: no respiratory distress, no labored breathing, no cough and not tachypneic Cardiovascular: Rate/Rhythm: regular rate and regular rhythm Heart Sounds: no murmur Extremities: + pedal edema Gastrointestinal (Abdomen): normal bowel sounds, soft, nontender, no hepatosplenomegaly Musculoskeletal: Extremities: extremities normal to inspection Skin: no rashes, warm and dry Results & Data Results & [facility] ([facility]) Vital Signs (Past 12 Hours) Vital Signs Temp Pulse Pulse Pulse Resp BP Pulse Ox 05/28/22 11:45 36.8 C 98 H 19 135/80 94 05/28/22 11:00 92 05/28/22 08:00 05/28/22 07:00 77 05/28/22 07:20 36.7 C 80 20 111/61 96 05/28/22 07:20 72 24 91 05/28/22 04:10 36.7 C 88 17 131/78 98 O2 Del Method O2 Flow Rate FiO2 05/28/22 11:45 Nasal Cannula 5.0 05/28/22 11:00 Nasal Cannula 5 05/28/22 08:00 Nasal Cannula 6 05/28/22 07:00 05/28/22 07:20 Oxymask 6.0 05/28/22 07:20 Oxymask 10 05/28/22 04:10 BiPAP 50 PG Care Time/CCT Total # of Minutes Spent Total Time Spent with Patient: Total time spent is greater than 50% in coordination of care (as documented) at patient's floor/unit and/or counseling patient: Coding Level of Care Code 49156 Subseq Hosp Care Lvl 2 Diagnoses Acute respiratory failure with hypoxia and hypercarbia J96.01; J96.02 Acute dyspnea R06.00 Elevated lactic acid level R79.89 Uncontrolled type 2 diabetes mellitus with hyperosmolarity, without long-term current use of insulin E11.00 Hypertension I10 Hypertension type: essential hypertension Hyperlipidemia E78.5 Hyperlipidemia type: unspecified Cor pulmonale I27.81 Anxiety F41.9 (1) Hyperlipidemia Hyperlipidemia type: unspecified Qualified Code(s): E78.5 - Hyperlipidemia, unspecified (2) Hypertension Hypertension type: essential hypertension Qualified Code(s): I10 - Essential (primary) hypertension
[2022-05-28] MEDS: ENOXAPARIN INJ 40 MG/0.4 ML SYR SQ SCH (21:36)
[2022-05-28] MEDS: ATORVASTATIN 40 MG TAB PO SCH (21:37)
[2022-05-28] MEDS: QUEtiapine FUMARATE 100 MG TABLET PO SCH (21:37)
[2022-05-28] MEDS: ASPIRIN 81 MG ECTAB PO SCH (21:37)
[2022-05-29 06:11] LABS: Est GFR (African American) 114.4 ml/min; Est GFR (Non-African American) 98.7 ml/min
[2022-05-29] MEDS: SODIUM CHLOR 7% 4 ML NEB NEB SCH ×2 (07:31→20:17)
[2022-05-29] MEDS: GABAPENTIN 300 MG CAP PO SCH ×3 (09:27→21:07)
[2022-05-29] MEDS: ENOXAPARIN INJ 40 MG/0.4 ML SYR SQ SCH ×2 (09:27→21:08)
[2022-05-29] MEDS: INSULIN ASPART PER UNIT SC SCH ×4 (09:28→21:14)
[2022-05-29] MEDS: LANTUS PER UNIT CHARGE SQ SCH (09:29)
--- NOTE | 2022-05-29 17:46 | XRay Report ---
XR chest 1V portable HISTORY: 71 years-old Female worsening hypoxia acute hypoxia COMPARISON: Chest radiograph 05/27/2022, chest CT 05/25/2022 TECHNIQUE: AP view of the chest FINDINGS: Complete opacification of left hemithorax redemonstrated. Cardiomegaly with pulmonary vascular conges tion. No pneumothorax. Small right pleural effusion with persistent right lung base consolidation. Ch ronic left shoulder deformity with reverse right shoulder total joint arthroplasty. IMPRESSION: 1. Complete opacification of the left hemithorax is unchanged. 2. Cardiomegaly with pulmonary vascular congestion. 3. Small right pleural effusion with persistent right basilar consolidation. ACT 112: Negative or not required by law. The above report was generated using voice recognition software. It may contain grammatical, syntax o r spelling errors. Electronically signed by: Dre Burleson M.D. 05/29/2022 5:45 PM
[2022-05-29] MEDS ORDERED: FUROSEMIDE 40 MG/4 ML VIAL IV ONE (20:20)
--- NOTE | 2022-05-29 20:31 | Hospitalist Progress Note ---
Date of Service May 29, 2022 Assessment & Plan (1) Acute respiratory failure with hypoxia and hypercarbia: Plan: Acute hypoxic respiratory failure, shortness of breath. - Initially received solu-medrol for COPD exacerbation and cefepime for PNA. Stopped on day of admission. Repeat procalcitonin with a.m. labs. - Biofire PCR negative - 3 days of cough, shortness of breath, increased oxygen requirements prior to admssion - CXR: Persistent opacification of the left lung with underlying volume loss. concern over mucous plug. - Appreciate pulmonology management - ordered hypertonic saline nebs, chest PT - s/p bronchoscopy [05/27], beta strep not A, B, C, F or G on bronchial culture - unclear if this needs treated, will discuss with ID tomorrow Repeat CXR today as worsening hypoxia - concerning for worsening pulmonary edema and she has been off lasix since admission. Will restart Lasix 40mg IV today and daily. BNP with AM labs (2) Acute dyspnea: Plan: As above (3) Elevated lactic acid level: Plan: Now resolved (4) Uncontrolled type 2 diabetes mellitus with hyperosmolarity, without long- term current use of insulin: Plan: On Lantus/Januvia/metformin at home. Hold home meds Appreciate pharmacy consult for basal bolus insulin dosing, glucose 120 -180 yesterday (5) Hypertension: Plan: Continue aspirin 81 mg daily Lisinopril held for hypotension Restart Lasix at 40 mg IV daily as above TTE 12/12/2021: LV SF normal, grade 1 diastolic dysfunction, RV dilation (6) Hyperlipidemia: Plan: Continue statin (7) Cor pulmonale: (8) Anxiety: Plan: Continue quetiapine 150 mg at bedtime (9) Asymptomatic bacteriuria: Plan: No symptoms therefore no need to treat Klebsiella or Pseudomonas in urine culture Plan DVT prophylaxis: Lovenox Diet: T2DM CODE STATUS: DNR/DNI Disposition: stable for downgrade to med/surg, no significant arrhythmias on telemetry Admission and Anticipated Discharge Date Admission Date: May 23, 2022 Subjective Up in the chair when seen. She reports feeling the same as yesterday however her oxygen requirement has vastly increased. On turning her down to her usual 4 L/min today her O2 sats dropped to 82%. She was significantly more mobile today with physical and Occupational Therapy. No urinary symptoms, fever, chills. Review of Systems Review of Systems: All systems reviewed & are unremarkable except as noted in Subjective Physical Exam Constitutional: + morbidly obese; not in distress Neck: trachea midline, no thyromegaly Respiratory: no respiratory distress, no labored breathing, no cough and not tachypneic Auscultation: + diminished lung sounds (Left-sided, bibasal) Cardiovascular: Rate/Rhythm: regular rate and regular rhythm Heart Sounds: no murmur Extremities: + pedal edema Gastrointestinal (Abdomen): normal bowel sounds, soft, nontender, no hepatosplenomegaly Musculoskeletal: Extremities: extremities normal to inspection Skin: no rashes, warm and dry Results & Data Results & Data ([facility]) Vital Signs (Past 12 Hours) Vital Signs Temp Pulse Resp BP Pulse Ox O2 Del Method O2 Flow Rate 05/29/22 20:18 83 22 90 Nasal Cannula 7 05/29/22 16:03 36.7 C 84 20 127/63 88 L Nasal Cannula 8 PG Care Time/CCT Total # of Minutes Spent Total Time Spent with Patient: Total time spent is greater than 50% in coordination of care (as documented) at patient's floor/unit and/or counseling patient: Coding Level of Care Code 74344 Subseq Hosp Care Lvl 2 Diagnoses Acute respiratory failure with hypoxia and hypercarbia J96.01; J96.02 Acute dyspnea R06.00 Elevated lactic acid level R79.89 Uncontrolled type 2 diabetes mellitus with hyperosmolarity, without long-term current use of insulin E11.00 Hypertension I10 Hypertension type: essential hypertension Hyperlipidemia E78.5 Hyperlipidemia type: unspecified Cor pulmonale I27.81 Anxiety F41.9 Asymptomatic bacteriuria R82.71 (1) Hyperlipidemia Hyperlipidemia type: unspecified Qualified Code(s): E78.5 - Hyperlipidemia, unspecified (2) Hypertension Hypertension type: essential hypertension Qualified Code(s): I10 - Essential (primary) hypertension
[2022-05-29] MEDS: QUEtiapine FUMARATE 100 MG TABLET PO SCH (21:07)
[2022-05-29] MEDS: ATORVASTATIN 40 MG TAB PO SCH (21:07)
[2022-05-29] MEDS: ASPIRIN 81 MG ECTAB PO SCH (21:07)
[2022-05-30] MEDS: SODIUM CHLOR 7% 4 ML NEB NEB SCH ×2 (07:22→19:48)
[2022-05-30] MEDS ORDERED: LANTUS PER UNIT CHARGE SQ SCH (09:00)
[2022-05-30] MEDS: GABAPENTIN 300 MG CAP PO SCH ×3 (09:47→20:26)
[2022-05-30] MEDS: ENOXAPARIN INJ 40 MG/0.4 ML SYR SQ SCH ×2 (09:48→20:26)
[2022-05-30] MEDS: INSULIN ASPART PER UNIT SC SCH ×4 (09:49→21:02)
[2022-05-30] MEDS: FUROSEMIDE 40 MG/4 ML VIAL IV SCH (10:15)
[2022-05-30 10:46] LABS: Basophils # (auto) 0.06 K/uL (0-0.2); Basophils % (auto) 0.7 %; Eosinophils # (auto) 0.23 K/uL (0-0.50); Eosinophils % (auto) 2.6 %; Hematocrit (blood only) 32.9 % (34.1-44.9); Hemoglobin 10.2 g/dl (12.0-16.0); Immature Granulocytes # (auto) 0.06 K/uL (0.00-0.02); Immature Granulocytes % (auto) 0.7 %; Lymphocytes # (auto) 0.99 K/uL (1.2-3.4); Lymphocytes % (auto) 11.2 %; Mean Corpuscular Hemoglobin 33.2 pg (25.0-34.0); Mean Corpuscular Volume 107.2 fL (80.0-100.0); Mean Platelet Volume 8.9 fL (9.4-12.3); Monocytes # (auto) 0.82 K/uL (0.24-0.82); Monocytes % (auto) 9.3 %; Neutrophils # (auto) 6.67 K/uL (1.4-6.5); Neutrophils % (auto) 75.5 %; Platelet Count 491 K/uL (130-400); RDW Coefficient of Variation 14.7 % (11.5-14.5); Red Blood Count 3.07 M/uL (3.93-5.22); White Blood Count 8.83 K/ul (4.8-10.8)
[2022-05-30 11:22] LABS: BUN Creatinine Ratio 37.7 (10-20); Calcium 9.4 mg/dl (8.5-10.1); Creatinine Clr Calc Pharmacy 119.3 ml/min; Est GFR (African American) 111.5 ml/min; Est GFR (Non-African American) 96.2 ml/min; Magnesium 1.2 mg/dl (1.7-2.4); Potassium 3.6 mmol/L (3.5-5.1)
[2022-05-30] MEDS: MAGNESIUM SULFATE / D5W 1 GM/100 ML BAG IV SCH ×4 (12:08→17:00)
--- NOTE | 2022-05-30 13:39 | Pharmacy Report ---
Pharmacy Glycemic Short Note 2 - Date of Service May 30, 2022 - Glycemic Short BSG Results (Last 24 hours): 05/29/22 05/29/22 05/30/22 16:52 20:40 08:02 Glucose POC Glucose 189 H 169 H 231 H 05/30/22 05/30/22 10:34 12:11 Glucose 183 H POC Glucose 162 H OUTPATIENT ANTIDIABETIC REGIMEN: * Lantus 35 units SC HS * Metformin 850 mg PO TIDM * Januvia 100 mg PO daily * HbA1c = 4.6% (05/25/22) ASSESSMENT: 05/30: * Traci received a total of 31 units of Insulin yeasterday (12 units basal + 19 units bolus) * Fasting BSG 231 mg/dl, random level was 183 and POC at noon was 162 mg/dl - tolerating diet * Today I increased her basal insulin to 15 units, no change to Novolog 05/27: * Patient received total of 20 units of insulin yesterday, of which 12 units were basal insulin * Fasting BSG 160 mg/dL - NPO now, AM basal held. Unclear how long patient to be NPO. Lunch BSG trending up. Will resume basal with dinner but reduce ~25% for NPO status 05/26: * Traci received a total of 31 units of insulin yesterday, 24 units basal + 7 units bolus. BSGs were: 374-802-021-139 mg/dL. * Received 40 mg of Solumedrol yesterday morning then it was discontinued. Cefepime discontinued as well. * Will reduce basal today by 50% to reflect previous admission data without steroids. No other changes at this point. 05/24: * Ms Roman is a 71 y/o F who presents with pneumonia. She is currently on Solu-Medrol 40 mg IV q12. * On admission, BSG was 135 mg/dL. Patient received 8 units of Lantus. * Pharmacy consulted after morning BSG of 204 mg/dL. Patient received scheduled 8 units of Lantus. * Will give 15 units tonight for total of 23 units of basal today. This is similar to previous admission. * Tighten CF and add CR for steroid hyperglycemia. * If patient continues to trend up will continue to tighten CR as this is what steroids primarily affects. PLAN FOR INPATIENT GLYCEMIC CONTROL: * Hold outpatient oral diabetes medications * Basal insulin * Lantus 15 units SC daily * Bolus insulin * NovoLog per scale ACHS or Q6hrs while NPO * Goal Range: Low 110 mg/dL - High 140 mg/dL * Correction Factor: 20 mg/dL/unit * Nutritional / Prandial insulin per carb ratio of 1 unit per 7 grams CHO consumed
[2022-05-30] MEDS: AMOXICILLIN 500 MG CAP PO SCH ×2 (17:10→20:25)
--- NOTE | 2022-05-30 18:32 | Hospitalist Progress Note ---
Date of Service May 30, 2022 Assessment & Plan (1) Acute respiratory failure with hypoxia and hypercarbia: Plan: Acute hypoxic respiratory failure, shortness of breath. - Initially received solu-medrol for COPD exacerbation and cefepime for PNA. Stopped on day of admission. Repeat procalcitonin with a.m. labs. - Biofire PCR negative - 3 days of cough, shortness of breath, increased oxygen requirements prior to admssion - CXR: Persistent opacification of the left lung with underlying volume loss. concern over mucous plug. - Appreciate pulmonology management - ordered hypertonic saline nebs, chest PT - s/p bronchoscopy [05/27], beta strep not A, B, C, F or G on bronchial culture - start on amoxicillin 1g TID for 7 days - Significant pulmonary edema on her chest x-ray yesterday. Started on Lasix 40 mg IV daily [05/30] (2) Acute dyspnea: Plan: As above (3) Elevated lactic acid level: Plan: Now resolved (4) Uncontrolled type 2 diabetes mellitus with hyperosmolarity, without long- term current use of insulin: Plan: On Lantus/Januvia/metformin at home. Hold home meds Appreciate pharmacy consult for basal bolus insulin dosing, glucose 162-236 yesterday (5) Hypertension: Plan: Continue aspirin 81 mg daily Lisinopril held for hypotension Continue Lasix 40 mg IV daily as above TTE 12/12/2021: LV SF normal, grade 1 diastolic dysfunction, RV dilation (6) Hyperlipidemia: Plan: Continue statin (7) Cor pulmonale: (8) Anxiety: Plan: Continue quetiapine 150 mg at bedtime (9) Asymptomatic bacteriuria: Plan: No symptoms therefore no need to treat Klebsiella or Pseudomonas in urine culture (10) Pulmonary edema: Plan: Diuresis as above (11) Pneumonia: Plan: Antibiotics as above Plan DVT prophylaxis: Lovenox Diet: T2DM CODE STATUS: DNR/DNI Disposition: Continue on MedSurg Admission and Anticipated Discharge Date Admission Date: May 23, 2022 Subjective Patient is up to the chair again today and appears much more awake. She reports no significant change in her shortness of breath. Chest x-ray yesterday showing significant pulmonary edema. Turned her oxygen down to 4 L/min and O2 sats dropped to 82%. Review of Systems Review of Systems: All systems reviewed & are unremarkable except as noted in Subjective Physical Exam Constitutional: + morbidly obese; not in distress Neck: trachea midline, no thyromegaly Respiratory: no respiratory distress, no labored breathing, no cough and not tachypneic Auscultation: + diminished lung sounds (Left-sided, bibasal) Cardiovascular: Rate/Rhythm: regular rate and regular rhythm Heart Sounds: no murmur Extremities: + pedal edema Gastrointestinal (Abdomen): normal bowel sounds, soft, nontender, no hepatosplenomegaly Musculoskeletal: Extremities: extremities normal to inspection Skin: no rashes, warm and dry Results & Data Results & Data ([facility]) Vital Signs (Past 12 Hours) Vital Signs Temp Pulse Resp BP Pulse Ox O2 Del Method O2 Flow Rate 05/30/22 11:33 Nasal Cannula 6 05/30/22 10:34 95 05/30/22 09:18 36.9 C 80 16 130/62 96 Nasal Cannula 6 05/30/22 07:24 82 20 96 Nasal Cannula 6 PG Care Time/CCT Total # of Minutes Spent Total Time Spent with Patient: Total time spent is greater than 50% in coordination of care (as documented) at patient's floor/unit and/or counseling patient: Coding Level of Care Code 32002 Subseq Hosp Care Lvl 2 Diagnoses Acute respiratory failure with hypoxia and hypercarbia J96.01; J96.02 Acute dyspnea R06.00 Elevated lactic acid level R79.89 Uncontrolled type 2 diabetes mellitus with hyperosmolarity, without long-term current use of insulin E11.00 Hypertension I10 Hypertension type: essential hypertension Hyperlipidemia E78.5 Hyperlipidemia type: unspecified Cor pulmonale I27.81 Anxiety F41.9 Asymptomatic bacteriuria R82.71 Pulmonary edema J81.1 Pneumonia J18.9 (1) Hyperlipidemia Hyperlipidemia type: unspecified Qualified Code(s): E78.5 - Hyperlipidemia, unspecified (2) Hypertension Hypertension type: essential hypertension Qualified Code(s): I10 - Essential (primary) hypertension
[2022-05-30] MEDS: ALBUT/IPRATROP 3MG/0.5MG NEB 3 ML VIAL NEB PRN (19:48)
[2022-05-30] MEDS: QUEtiapine FUMARATE 100 MG TABLET PO SCH (20:25)
[2022-05-30] MEDS: ATORVASTATIN 40 MG TAB PO SCH (20:26)
[2022-05-30] MEDS: ASPIRIN 81 MG ECTAB PO SCH (20:26)
[2022-05-31] MEDS: SODIUM CHLOR 7% 4 ML NEB NEB SCH ×2 (07:32→19:10)
[2022-05-31 07:54] LABS: BUN Creatinine Ratio 39.2 (10-20); Calcium 9.4 mg/dl (8.5-10.1); Est GFR (African American) 112.9 ml/min; Est GFR (Non-African American) 97.4 ml/min; Potassium 3.6 mmol/L (3.5-5.1)
[2022-05-31] MEDS ORDERED: LANTUS PER UNIT CHARGE SQ SCH (09:00)
[2022-05-31] MEDS: ENOXAPARIN INJ 40 MG/0.4 ML SYR SQ SCH ×2 (09:59→21:12)
[2022-05-31] MEDS: GABAPENTIN 300 MG CAP PO SCH ×3 (09:59→21:13)
[2022-05-31] MEDS: AMOXICILLIN 500 MG CAP PO SCH ×3 (09:59→21:09)
[2022-05-31] MEDS: FUROSEMIDE 40 MG/4 ML VIAL IV SCH (10:00)
[2022-05-31] MEDS: INSULIN ASPART PER UNIT SC SCH ×4 (10:03→21:34)
--- NOTE | 2022-05-31 11:30 | Pharmacy Report ---
Pharmacy Glycemic Short Note 2 - Date of Service May 31, 2022 - Glycemic Short BSG Results (Last 24 hours): 05/30/22 05/30/22 05/30/22 12:11 17:19 20:45 Glucose POC Glucose 162 H 195 H 236 H 05/31/22 05/31/22 07:24 08:01 Glucose 179 H POC Glucose 203 H OUTPATIENT ANTIDIABETIC REGIMEN: * Lantus 35 units SC HS * Metformin 850 mg PO TIDM * Januvia 100 mg PO daily * HbA1c = 4.6% (05/25/22) ASSESSMENT: 05/31: * BSGs 611-961-971tq/dL the last 24h. Fasting BSG this AM elevated to 202mg/dL. Patient received 15 units of basal and 21 units of bolus insulin yesterday. * PO intake has decreased throughout the past day, however BSGs still above goal. Lantus increased to 17 units and Novolog tightened today. Monitor BSGs closely and adjust as necessary. 05/30: * Traci received a total of 31 units of Insulin yesterday (12 units basal + 19 units bolus) * Fasting BSG 231 mg/dl, random level was 183 and POC at noon was 162 mg/dl - tolerating diet * Today I increased her basal insulin to 15 units, no change to Novolog 05/27: * Patient received total of 20 units of insulin yesterday, of which 12 units were basal insulin * Fasting BSG 160 mg/dL - NPO now, AM basal held. Unclear how long patient to be NPO. Lunch BSG trending up. Will resume basal with dinner but reduce ~25% for NPO status 05/26: * Traci received a total of 31 units of insulin yesterday, 24 units basal + 7 units bolus. BSGs were: 523-100-120-139 mg/dL. * Received 40 mg of Solumedrol yesterday morning then it was discontinued. Cefepime discontinued as well. * Will reduce basal today by 50% to reflect previous admission data without steroids. No other changes at this point. 05/24: * Ms Roman is a 71 y/o F who presents with pneumonia. She is currently on Solu-Medrol 40 mg IV q12. * On admission, BSG was 135 mg/dL. Patient received 8 units of Lantus. * Pharmacy consulted after morning BSG of 204 mg/dL. Patient received scheduled 8 units of Lantus. * Will give 15 units tonight for total of 23 units of basal today. This is similar to previous admission. * Tighten CF and add CR for steroid hyperglycemia. * If patient continues to trend up will continue to tighten CR as this is what steroids primarily affects. PLAN FOR INPATIENT GLYCEMIC CONTROL: * Hold outpatient oral diabetes medications * Basal insulin * Lantus 17 units SC daily * Bolus insulin * NovoLog per scale ACHS or Q6hrs while NPO * Goal Range: Low 110 mg/dL - High 140 mg/dL * Correction Factor: 18 mg/dL/unit * Nutritional / Prandial insulin per carb ratio of 1 unit per 6 grams CHO consumed
--- NOTE | 2022-05-31 17:37 | Hospitalist Progress Note ---
Date of Service May 31, 2022 Assessment & Plan (1) Acute respiratory failure with hypoxia and hypercarbia: Plan: Acute hypoxic respiratory failure, shortness of breath. - Initially received solu-medrol for COPD exacerbation and cefepime for PNA. Stopped on day of admission. Repeat procalcitonin with a.m. labs. - Biofire PCR negative - 3 days of cough, shortness of breath, increased oxygen requirements prior to admssion - CXR: Persistent opacification of the left lung with underlying volume loss. concern over mucous plug. - Appreciate pulmonology management - ordered hypertonic saline nebs, chest PT - s/p bronchoscopy [05/27], beta strep not A, B, C, F or G on bronchial culture - started on amoxicillin 1g TID for 7 days per discussion with infectious disease - Significant pulmonary edema on her chest x-ray 05/29 although BNP unremarkable. Started on Lasix 40 mg IV daily [05/30] with improvement in O2 sats today. (2) Acute dyspnea: Plan: As above (3) Elevated lactic acid level: Plan: Now resolved (4) Uncontrolled type 2 diabetes mellitus with hyperosmolarity, without long- term current use of insulin: Plan: On Lantus/Januvia/metformin at home. Hold home meds Appreciate pharmacy consult for basal bolus insulin dosing, glucose 162-236 yesterday (5) Hypertension: Plan: Continue aspirin 81 mg daily Lisinopril held for hypotension Continue Lasix 40 mg IV daily as above TTE 12/12/2021: LV SF normal, grade 1 diastolic dysfunction, RV dilation (6) Hyperlipidemia: Plan: Continue statin (7) Cor pulmonale: (8) Anxiety: Plan: Continue quetiapine 150 mg at bedtime (9) Asymptomatic bacteriuria: Plan: No symptoms therefore no need to treat Klebsiella or Pseudomonas in urine culture (10) Pulmonary edema: Plan: Diuresis as above (11) Pneumonia: Plan: Antibiotics as above Plan DVT prophylaxis: Lovenox can reduce to QPM as BMI now < 40 Diet: T2DM CODE STATUS: DNR/DNI Disposition: Continue on MedSurg Admission and Anticipated Discharge Date Admission Date: May 23, 2022 Subjective No significant change in shortness of breath. O2 sats at rest significantly improved from yesterday. I&Os not being measured. No change to leg swelling. Review of Systems Review of Systems: All systems reviewed & are unremarkable except as noted in Subjective Physical Exam Physical Exam: Appears visible less short of breath sitting in the chair. O2 sats improved on 4LPM O2, now up to high 80s rather than low 80s. Constitutional: + morbidly obese; not in distress Neck: trachea midline, no thyromegaly Respiratory: no respiratory distress, no labored breathing, no cough and not tachypneic Auscultation: + diminished lung sounds (Left-sided, bibasal) Cardiovascular: Rate/Rhythm: regular rate and regular rhythm Heart Sounds: no murmur Extremities: + pedal edema Gastrointestinal (Abdomen): normal bowel sounds, soft, nontender, no hepatosplenomegaly Musculoskeletal: Extremities: extremities normal to inspection Skin: no rashes, warm and dry Psychiatric: A+Ox3, euthymic affect Results & Data Results & Data ([facility]) Vital Signs (Past 12 Hours) Vital Signs Temp Pulse Resp BP Pulse Ox O2 Del Method O2 Flow Rate 05/31/22 16:29 36.6 C 73 16 142/66 H 96 Nasal Cannula 5 05/31/22 08:00 Nasal Cannula 6 05/31/22 08:11 36.9 C 72 16 153/66 H 100 CPAP 05/31/22 07:32 21 95 BiPAP 05/31/22 07:32 21 95 FiO2 05/31/22 16:29 05/31/22 08:00 05/31/22 08:11 05/31/22 07:32 70 05/31/22 07:32 70 PG Care Time/CCT Total # of Minutes Spent Total Time Spent with Patient: Total time spent is greater than 50% in coordination of care (as documented) at patient's floor/unit and/or counseling patient: Coding Level of Care Code 39638 Subseq Hosp Care Lvl 2 Diagnoses Acute respiratory failure with hypoxia and hypercarbia J96.01; J96.02 Acute dyspnea R06.00 Elevated lactic acid level R79.89 Uncontrolled type 2 diabetes mellitus with hyperosmolarity, without long-term current use of insulin E11.00 Hypertension I10 Hypertension type: essential hypertension Hyperlipidemia E78.5 Hyperlipidemia type: unspecified Cor pulmonale I27.81 Anxiety F41.9 Asymptomatic bacteriuria R82.71 Pulmonary edema J81.1 Pneumonia J18.9 (1) Hyperlipidemia Hyperlipidemia type: unspecified Qualified Code(s): E78.5 - Hyperlipidemia, unspecified (2) Hypertension Hypertension type: essential hypertension Qualified Code(s): I10 - Essential (primary) hypertension
[2022-05-31] MEDS: ASPIRIN 81 MG ECTAB PO SCH (21:11)
[2022-05-31] MEDS: ATORVASTATIN 40 MG TAB PO SCH (21:11)
[2022-05-31] MEDS: QUEtiapine FUMARATE 100 MG TABLET PO SCH (21:15)
[2022-06-01] MEDS: SODIUM CHLOR 7% 4 ML NEB NEB SCH ×2 (05:05→19:34)
[2022-06-01 07:52] LABS: Calcium 9.2 mg/dl (8.5-10.1); Creatinine Clr Calc Pharmacy 121.7 ml/min; Est GFR (African American) 113.7 ml/min; Est GFR (Non-African American) 98.1 ml/min; Magnesium 1.3 mg/dl (1.7-2.4); Potassium 3.2 mmol/L (3.5-5.1)
--- NOTE | 2022-06-01 09:53 | Pharmacy Report ---
Pharmacy Glycemic Short Note 2 - Date of Service June 01, 2022 - Glycemic Short BSG Results (Last 24 hours): 05/31/22 05/31/22 05/31/22 11:51 17:19 20:45 Glucose POC Glucose 199 H 156 H 208 H 06/01/22 06/01/22 07:08 08:32 Glucose 205 H POC Glucose 213 H OUTPATIENT ANTIDIABETIC REGIMEN: * Lantus 35 units SC HS * Metformin 850 mg PO TIDM * Januvia 100 mg PO daily * HbA1c = 4.6% (05/25/22) ASSESSMENT: 06/01: * Fasting BSG elevated this AM at 213mg/dl, despite increase in basal and tightening NovoLog parameters yesterday, continue to titrate basal up today, and tighten NovoLog. 05/31: * BSGs 450-746-154an/dL the last 24h. Fasting BSG this AM elevated to 202mg/dL. Patient received 15 units of basal and 21 units of bolus insulin yesterday. * PO intake has decreased throughout the past day, however BSGs still above goal. Lantus increased to 17 units and Novolog tightened today. Monitor BSGs closely and adjust as necessary. 05/30: * Traci received a total of 31 units of Insulin yesterday (12 units basal + 19 units bolus) * Fasting BSG 231 mg/dl, random level was 183 and POC at noon was 162 mg/dl - tolerating diet * Today I increased her basal insulin to 15 units, no change to Novolog 05/27: * Patient received total of 20 units of insulin yesterday, of which 12 units were basal insulin * Fasting BSG 160 mg/dL - NPO now, AM basal held. Unclear how long patient to be NPO. Lunch BSG trending up. Will resume basal with dinner but reduce ~25% for NPO status 05/26: * Traci received a total of 31 units of insulin yesterday, 24 units basal + 7 units bolus. BSGs were: 353-298-836-139 mg/dL. * Received 40 mg of Solumedrol yesterday morning then it was discontinued. Cefepime discontinued as well. * Will reduce basal today by 50% to reflect previous admission data without steroids. No other changes at this point. 05/24: * Ms Roman is a 71 y/o F who presents with pneumonia. She is currently on Solu-Medrol 40 mg IV q12. * On admission, BSG was 135 mg/dL. Patient received 8 units of Lantus. * Pharmacy consulted after morning BSG of 204 mg/dL. Patient received scheduled 8 units of Lantus. * Will give 15 units tonight for total of 23 units of basal today. This is similar to previous admission. * Tighten CF and add CR for steroid hyperglycemia. * If patient continues to trend up will continue to tighten CR as this is what steroids primarily affects. PLAN FOR INPATIENT GLYCEMIC CONTROL: * Hold outpatient oral diabetes medications * Basal insulin * Lantus 20 units SC daily * Bolus insulin * NovoLog per scale ACHS or Q6hrs while NPO * Goal Range: Low 110 mg/dL - High 140 mg/dL * Correction Factor: 15 mg/dL/unit * Nutritional / Prandial insulin per carb ratio of 1 unit per 5 grams CHO consumed
[2022-06-01] MEDS: GABAPENTIN 300 MG CAP PO SCH ×3 (10:30→22:11)
[2022-06-01] MEDS: AMOXICILLIN 500 MG CAP PO SCH ×3 (10:30→22:11)
[2022-06-01] MEDS: CYANOCOBALAMIN (B-12) 500 MCG TABLET PO SCH (10:30)
[2022-06-01] MEDS: INSULIN ASPART PER UNIT SC SCH ×4 (10:37→22:18)
[2022-06-01] MEDS: LANTUS PER UNIT CHARGE SQ SCH (10:38)
[2022-06-01] MEDS: FUROSEMIDE 40 MG/4 ML VIAL IV SCH (10:51)
[2022-06-01] MEDS: MAGNESIUM SULFATE / D5W 1 GM/100 ML BAG IV SCH ×2 (13:34→15:20)
[2022-06-01] MEDS: POTASSIUM CHLORIDE CRTAB 20 MEQ TABCR PO SCH ×2 (13:34→22:11)
--- NOTE | 2022-06-01 19:47 | Hospitalist Progress Note ---
Date of Service June 01, 2022 Assessment & Plan (1) Acute respiratory failure with hypoxia and hypercarbia: Plan: Acute hypoxic respiratory failure, shortness of breath. - Initially received solu-medrol for COPD exacerbation and cefepime for PNA. Stopped on day of admission. Repeat procalcitonin with a.m. labs. - Biofire PCR negative - 3 days of cough, shortness of breath, increased oxygen requirements prior to admssion - CXR: Persistent opacification of the left lung with underlying volume loss. concern over mucous plug. - Appreciate pulmonology management - ordered hypertonic saline nebs, chest PT - s/p bronchoscopy [05/27], beta strep not A, B, C, F or G on bronchial culture - started on amoxicillin 1g TID for 7 days per discussion with infectious disease - Significant pulmonary edema on her chest x-ray 05/29 although BNP unremarkable. Started on Lasix 40 mg IV daily [05/30] -continues to require 5 liters nasal cannula on 06/01 (2) Acute dyspnea: Plan: As above (3) Elevated lactic acid level: Plan: Now resolved (4) Uncontrolled type 2 diabetes mellitus with hyperosmolarity, without long- term current use of insulin: Plan: On Lantus/Januvia/metformin at home. Hold home meds Appreciate pharmacy consult for basal bolus insulin dosing, glucose 162-236 yesterday (5) Hypertension: Plan: Continue aspirin 81 mg daily Lisinopril held for hypotension Continue Lasix 40 mg IV daily as above TTE 12/12/2021: LV SF normal, grade 1 diastolic dysfunction, RV dilation (6) Hyperlipidemia: Plan: Continue statin (7) Cor pulmonale: (8) Anxiety: Plan: Continue quetiapine 150 mg at bedtime (9) Asymptomatic bacteriuria: Plan: No symptoms therefore no need to treat Klebsiella or Pseudomonas in urine culture (10) Pulmonary edema: Plan: Diuresis as above (11) Pneumonia: Plan: Antibiotics as above Plan DVT prophylaxis: Lovenox can reduce to QPM as BMI now < 40 Diet: T2DM CODE STATUS: DNR/DNI Disposition: Continue on MedSurg Admission and Anticipated Discharge Date Admission Date: May 23, 2022 Subjective 71 yo female reports no new symptoms. Review of Systems Review of Systems: All systems reviewed & are unremarkable except as noted in HPI & below Physical Exam Physical Exam: General: A&Ox3. NAD. Cooperative. Somnolent but arouses easily HEENT: Atraumatic, normocephalic. Vision/hearing intact Pulm: Coarse, decreased breath sounds. Symmetrical chest rise. Cardiac: RRR, -mrg. Radial pulses intact and symmetrical. Abdominal: Nontender, nondistended, soft. BS present. Ext: Warm, dry. Cap refil ~2 seconds, without pitting edema Results & Data Results & Data ([facility]) Vital Signs (Past 12 Hours) Vital Signs Temp Pulse Resp BP Pulse Ox O2 Del Method O2 Flow Rate 06/01/22 19:37 74 18 94 Nasal Cannula 6 06/01/22 15:49 36.8 C 66 16 145/69 H 95 Nasal Cannula 5 06/01/22 09:15 Nasal Cannula 06/01/22 10:17 37.1 C 76 16 95 Nasal Cannula 5 06/01/22 08:34 36.7 C 79 16 153/66 H 91 Nasal Cannula 5 PG Care Time/CCT Total # of Minutes Spent Total Time Spent with Patient: Total time spent is greater than 50% in coordination of care (as documented) at patient's floor/unit and/or counseling patient: Coding Level of Care Code 75199 Subseq Hosp Care Lvl 2 Diagnoses Acute respiratory failure with hypoxia and hypercarbia J96.01; J96.02 Acute dyspnea R06.00 Elevated lactic acid level R79.89 Uncontrolled type 2 diabetes mellitus with hyperosmolarity, without long-term current use of insulin E11.00 Hypertension I10 Hypertension type: essential hypertension Hyperlipidemia E78.5 Hyperlipidemia type: unspecified Cor pulmonale I27.81 Anxiety F41.9 Asymptomatic bacteriuria R82.71 Pulmonary edema J81.1 Pneumonia J18.9 Time Spent (min) 25 (1) Hyperlipidemia Hyperlipidemia type: unspecified Qualified Code(s): E78.5 - Hyperlipidemia, unspecified (2) Hypertension Hypertension type: essential hypertension Qualified Code(s): I10 - Essential (primary) hypertension
[2022-06-01] MEDS: ATORVASTATIN 40 MG TAB PO SCH (22:10)
[2022-06-01] MEDS: ENOXAPARIN INJ 40 MG/0.4 ML SYR SQ SCH (22:10)
[2022-06-01] MEDS: QUEtiapine FUMARATE 100 MG TABLET PO SCH (22:11)
[2022-06-01] MEDS: ASPIRIN 81 MG ECTAB PO SCH (22:12)
[2022-06-02] MEDS: SODIUM CHLOR 7% 4 ML NEB NEB SCH ×2 (05:44→17:59)
[2022-06-02 08:10] LABS: Hemoglobin 9.8 g/dl (12.0-16.0); Mean Corpuscular Hemoglobin 33.3 pg (25.0-34.0); Mean Corpuscular Hgb Conc 31.6 g/dL (32.0-36.0); Mean Corpuscular Volume 105.4 fL (80.0-100.0); Mean Platelet Volume 8.9 fL (9.4-12.3); Platelet Count 570 K/uL (130-400); RDW Coefficient of Variation 14.3 % (11.5-14.5); RDW Standard Deviation 56.2 fL (36.4-46.3); Red Blood Count 2.94 M/uL (3.93-5.22); White Blood Count 12.08 K/ul (4.8-10.8)
[2022-06-02 08:55] LABS: BUN Creatinine Ratio 32.1 (10-20); Calcium 9.5 mg/dl (8.5-10.1); Creatinine Clr Calc Pharmacy 108.7 ml/min; Est GFR (African American) 109.5 ml/min; Est GFR (Non-African American) 94.5 ml/min; Potassium 3.8 mmol/L (3.5-5.1)
[2022-06-02] MEDS: INSULIN ASPART PER UNIT SC SCH ×4 (10:08→21:35)
[2022-06-02] MEDS: AMOXICILLIN 500 MG CAP PO SCH ×3 (10:09→20:11)
[2022-06-02] MEDS: GABAPENTIN 300 MG CAP PO SCH ×3 (10:09→20:09)
[2022-06-02] MEDS: LANTUS PER UNIT CHARGE SQ SCH (10:09)
[2022-06-02] MEDS: FUROSEMIDE 40 MG/4 ML VIAL IV SCH (10:09)
[2022-06-02] MEDS: POTASSIUM CHLORIDE CRTAB 20 MEQ TABCR PO SCH ×3 (10:10→20:10)
[2022-06-02] MEDS: CYANOCOBALAMIN (B-12) 500 MCG TABLET PO SCH (10:10)
--- NOTE | 2022-06-02 10:19 | XRay Report ---
XR chest 2V PA/lateral HISTORY: 71 years-old Female hypoxia acute hypoxia COMPARISON: Chest radiograph 05/29/2022 TECHNIQUE: AP view of the chest FINDINGS: Complete opacification of the left hemithorax again noted. The cardiac silhouette is mostly obscured. The patient is rotated towards the left. Pulmonary vascular congestion. No pneumothorax identified.. Trace right pleural effusion with persistent right basilar densities comment mildly improved. Chroni c deformity of the left glenohumeral joint. Reverse right shoulder total joint arthroplasty. IMPRESSION: 1. Complete opacification of the left hemithorax is unchanged. 2. Pulmonary vascular congestion. 3. Small right pleural effusion with mildly improved aeration of the right lung base. ACT 112: Negative or not required by law. The above report was generated using voice recognition software. It may contain grammatical, syntax o r spelling errors. Electronically signed by: Dre Burleson M.D. 06/02/2022 10:16 AM
[2022-06-02] MEDS: QUEtiapine FUMARATE 100 MG TABLET PO SCH (20:09)
[2022-06-02] MEDS: ASPIRIN 81 MG ECTAB PO SCH (20:10)
[2022-06-02] MEDS: ATORVASTATIN 40 MG TAB PO SCH (20:10)
[2022-06-02] MEDS: ENOXAPARIN INJ 40 MG/0.4 ML SYR SQ SCH (20:10)
--- NOTE | 2022-06-02 21:29 | Hospitalist Progress Note ---
Date of Service June 02, 2022 Assessment & Plan (1) Acute respiratory failure with hypoxia and hypercarbia: Plan: Acute hypoxic respiratory failure, shortness of breath. - Initially received solu-medrol for COPD exacerbation and cefepime for PNA. Stopped on day of admission. Repeat procalcitonin with a.m. labs. - Biofire PCR negative - 3 days of cough, shortness of breath, increased oxygen requirements prior to admssion - CXR: Persistent opacification of the left lung with underlying volume loss. concern over mucous plug. - Appreciate pulmonology management - ordered hypertonic saline nebs, chest PT - s/p bronchoscopy [05/27], beta strep not A, B, C, F or G on bronchial culture - started on amoxicillin 1g TID for 7 days per discussion with infectious disease - Significant pulmonary edema on her chest x-ray 05/29 although BNP unremarkable. Started on Lasix 40 mg IV daily [05/30] -continues to require 5 liters nasal cannula on 06/02 -she is normally on 4 liters at home, will get overnight pulse ox and get ABG in AM. (2) Acute dyspnea: Plan: As above (3) Elevated lactic acid level: Plan: Now resolved (4) Uncontrolled type 2 diabetes mellitus with hyperosmolarity, without long- term current use of insulin: Plan: On Lantus/Januvia/metformin at home. Hold home meds Appreciate pharmacy consult for basal bolus insulin dosing, glucose 162-236 yesterday (5) Hypertension: Plan: Continue aspirin 81 mg daily Lisinopril held for hypotension Continue Lasix 40 mg IV daily as above TTE 12/12/2021: LV SF normal, grade 1 diastolic dysfunction, RV dilation (6) Hyperlipidemia: Plan: Continue statin (7) Cor pulmonale: (8) Anxiety: Plan: Continue quetiapine 150 mg at bedtime (9) Asymptomatic bacteriuria: Plan: No symptoms therefore no need to treat Klebsiella or Pseudomonas in urine culture (10) Pulmonary edema: Plan: Diuresis as above (11) Pneumonia: Plan: Antibiotics as above Plan DVT prophylaxis: Lovenox can reduce to QPM as BMI now < 40 Diet: T2DM CODE STATUS: DNR/DNI Disposition: Continue on MedSurg Admission and Anticipated Discharge Date Admission Date: May 23, 2022 Subjective Patient is resting. She has no new complaints. Review of Systems Review of Systems: All systems reviewed & are unremarkable except as noted in HPI & below Physical Exam Physical Exam: General: A&Ox3. NAD. Cooperative. Somnolent but arouses easily HEENT: Atraumatic, normocephalic. Vision/hearing intact Pulm: Coarse, decreased breath sounds. Symmetrical chest rise. Cardiac: RRR, -mrg. Radial pulses intact and symmetrical. Abdominal: Nontender, nondistended, soft. BS present. Ext: Warm, dry. Cap refil ~2 seconds, without pitting edema Results & Data Results & Data ([facility] [place]) Vital Signs (Past 12 Hours) Vital Signs Temp Pulse Resp BP Pulse Ox O2 Del Method O2 Flow Rate 06/02/22 19:50 Nasal Cannula 5 06/02/22 18:00 84 18 96 Nasal Cannula 5 06/02/22 16:52 36.9 C 77 16 116/66 98 Nasal Cannula 5 PG Care Time/CCT Total # of Minutes Spent Total Time Spent with Patient: Total time spent is greater than 50% in coordination of care (as documented) at patient's floor/unit and/or counseling patient: Coding Level of Care Code 00127 Subseq Hosp Care Lvl 2 Diagnoses Acute respiratory failure with hypoxia and hypercarbia J96.01; J96.02 Acute dyspnea R06.00 Elevated lactic acid level R79.89 Uncontrolled type 2 diabetes mellitus with hyperosmolarity, without long-term current use of insulin E11.00 Hypertension I10 Hypertension type: essential hypertension Hyperlipidemia E78.5 Hyperlipidemia type: unspecified Cor pulmonale I27.81 Anxiety F41.9 Asymptomatic bacteriuria R82.71 Pulmonary edema J81.1 Pneumonia J18.9 Time Spent (min) 25 (1) Hyperlipidemia Hyperlipidemia type: unspecified Qualified Code(s): E78.5 - Hyperlipidemia, unspecified (2) Hypertension Hypertension type: essential hypertension Qualified Code(s): I10 - Essential (primary) hypertension
[2022-06-03 06:58] LABS: BUN Creatinine Ratio 32.3 (10-20); Base Excess ABG 13.8 mEq/L (-9-1.8); Calcium 9.3 mg/dl (8.5-10.1); Creatinine Clr Calc Pharmacy 99.1 ml/min; Est GFR (African American) 105.9 ml/min; Est GFR (Non-African American) 91.4 ml/min; HCO3 ABG 41 mmol/L (19-24); Oxygen Saturation ABG 98.5 % (90-95); PCO2 ABG 60 mmHg (35-46); PO2 ABG 100 mmHg (80-95); Potassium 4.1 mmol/L (3.5-5.1); pH ABG 7.44 (7.35-7.45)
[2022-06-03 07:07] LABS: Allen Test Pos (Pos)
[2022-06-03] MEDS: SODIUM CHLOR 7% 4 ML NEB NEB SCH ×2 (07:26→19:31)
[2022-06-03] MEDS: INSULIN ASPART PER UNIT SC SCH ×4 (09:24→21:28)
[2022-06-03] MEDS: LANTUS PER UNIT CHARGE SQ SCH (09:25)
[2022-06-03] MEDS: CYANOCOBALAMIN (B-12) 500 MCG TABLET PO SCH (09:26)
[2022-06-03] MEDS: AMOXICILLIN 500 MG CAP PO SCH ×3 (09:27→21:22)
[2022-06-03] MEDS: POTASSIUM CHLORIDE CRTAB 20 MEQ TABCR PO SCH (09:28)
[2022-06-03] MEDS: GABAPENTIN 300 MG CAP PO SCH ×3 (09:28→21:23)
[2022-06-03] MEDS: FUROSEMIDE 40 MG/4 ML VIAL IV SCH (09:29)
--- NOTE | 2022-06-03 14:59 | Pharmacy Report ---
Pharmacy Glycemic Short Note 2 - Date of Service June 03, 2022 - Glycemic Short BSG Results (Last 24 hours): 06/02/22 06/02/22 06/03/22 17:43 21:14 06:06 Glucose 202 H POC Glucose 225 H 168 H 06/03/22 06/03/22 08:35 12:25 Glucose POC Glucose 233 H 190 H OUTPATIENT ANTIDIABETIC REGIMEN: * Lantus 35 units SC HS * Metformin 850 mg PO TIDM * Januvia 100 mg PO daily * HbA1c = 4.6% (05/25/22) ASSESSMENT: 06/03: * BSGs were elevated for the major part of yesterday above 200 mg/dl. Novolog parameters tightened yesterday and further tightened again today. * Fasting BSG elevated this morning, so basal dose increased 25% today. 06/01: * Fasting BSG elevated this AM at 213mg/dl, despite increase in basal and tightening NovoLog parameters yesterday, continue to titrate basal up today, and tighten NovoLog. 05/31: * BSGs 100-220-139gb/dL the last 24h. Fasting BSG this AM elevated to 202mg/dL. Patient received 15 units of basal and 21 units of bolus insulin yesterday. * PO intake has decreased throughout the past day, however BSGs still above goal. Lantus increased to 17 units and Novolog tightened today. Monitor BSGs closely and adjust as necessary. 05/30: * Traci received a total of 31 units of Insulin yesterday (12 units basal + 19 units bolus) * Fasting BSG 231 mg/dl, random level was 183 and POC at noon was 162 mg/dl - tolerating diet * Today I increased her basal insulin to 15 units, no change to Novolog 05/27: * Patient received total of 20 units of insulin yesterday, of which 12 units were basal insulin * Fasting BSG 160 mg/dL - NPO now, AM basal held. Unclear how long patient to be NPO. Lunch BSG trending up. Will resume basal with dinner but reduce ~25% for NPO status 05/26: * Traci received a total of 31 units of insulin yesterday, 24 units basal + 7 units bolus. BSGs were: 677-596-990-139 mg/dL. * Received 40 mg of Solumedrol yesterday morning then it was discontinued. Cefepime discontinued as well. * Will reduce basal today by 50% to reflect previous admission data without steroids. No other changes at this point. 05/24: * Ms Roman is a 71 y/o F who presents with pneumonia. She is currently on Solu-Medrol 40 mg IV q12. * On admission, BSG was 135 mg/dL. Patient received 8 units of Lantus. * Pharmacy consulted after morning BSG of 204 mg/dL. Patient received scheduled 8 units of Lantus. * Will give 15 units tonight for total of 23 units of basal today. This is similar to previous admission. * Tighten CF and add CR for steroid hyperglycemia. * If patient continues to trend up will continue to tighten CR as this is what steroids primarily affects. PLAN FOR INPATIENT GLYCEMIC CONTROL: * Hold outpatient oral diabetes medications * Basal insulin * Lantus 25 units SC daily * Bolus insulin * NovoLog per scale ACHS or Q6hrs while NPO * Goal Range: Low 110 mg/dL - High 140 mg/dL * Correction Factor: 10 mg/dL/unit * Nutritional / Prandial insulin per carb ratio of 1 unit per 4.5 grams CHO consumed
[2022-06-03] MEDS: ENOXAPARIN INJ 40 MG/0.4 ML SYR SQ SCH (21:21)
[2022-06-03] MEDS: ASPIRIN 81 MG ECTAB PO SCH (21:22)
[2022-06-03] MEDS: ATORVASTATIN 40 MG TAB PO SCH (21:22)
[2022-06-03] MEDS: QUEtiapine FUMARATE 100 MG TABLET PO SCH (21:23)
--- NOTE | 2022-06-03 23:22 | Hospitalist Progress Note ---
Date of Service June 03, 2022 Assessment & Plan (1) Acute respiratory failure with hypoxia and hypercarbia: Plan: Acute hypoxic respiratory failure, shortness of breath. - Initially received solu-medrol for COPD exacerbation and cefepime for PNA. Stopped on day of admission. Repeat procalcitonin with a.m. labs. - Biofire PCR negative - 3 days of cough, shortness of breath, increased oxygen requirements prior to admssion - CXR: Persistent opacification of the left lung with underlying volume loss. concern over mucous plug. - Appreciate pulmonology management - ordered hypertonic saline nebs, chest PT - s/p bronchoscopy [05/27], beta strep not A, B, C, F or G on bronchial culture - started on amoxicillin 1g TID for 7 days per discussion with infectious disease - Significant pulmonary edema on her chest x-ray 05/29 although BNP unremarkable. Started on Lasix 40 mg IV daily [05/30] -continues to require 5 liters nasal cannula on 06/02 -she is normally on 4 liters at home, will get overnight pulse ox and get ABG. Patient meets criteria for BIPAP as CO2 was elevated. gave script to egg caser, likely will be set up on Sunday. Cannot be discharged until this has been completed. (2) Acute dyspnea: Plan: As above (3) Elevated lactic acid level: Plan: Now resolved (4) Uncontrolled type 2 diabetes mellitus with hyperosmolarity, without long- term current use of insulin: Plan: On Lantus/Januvia/metformin at home. Hold home meds Appreciate pharmacy consult for basal bolus insulin dosing, glucose 162-236 yesterday (5) Hypertension: Plan: Continue aspirin 81 mg daily Lisinopril held for hypotension Continue Lasix 40 mg IV daily as above TTE 12/12/2021: LV SF normal, grade 1 diastolic dysfunction, RV dilation (6) Hyperlipidemia: Plan: Continue statin (7) Cor pulmonale: (8) Anxiety: Plan: Continue quetiapine 150 mg at bedtime (9) Asymptomatic bacteriuria: Plan: No symptoms therefore no need to treat Klebsiella or Pseudomonas in urine culture (10) Pulmonary edema: Plan: Diuresis as above (11) Pneumonia: Plan: Antibiotics as above Plan DVT prophylaxis: Lovenox can reduce to QPM as BMI now < 40 Diet: T2DM CODE STATUS: DNR/DNI Disposition: Continue on [facility] Admission and Anticipated Discharge Date Admission Date: May 23, 2022 Subjective 71 yo female is resting comfortably. No new complaints. Review of Systems Review of Systems: All systems reviewed & are unremarkable except as noted in HPI & below Physical Exam Physical Exam: General: A&Ox3. NAD. Cooperative. Somnolent but arouses easily HEENT: Atraumatic, normocephalic. Vision/hearing intact Pulm: Coarse, decreased breath sounds. Symmetrical chest rise. Cardiac: RRR, -mrg. Radial pulses intact and symmetrical. Abdominal: Nontender, nondistended, soft. BS present. Ext: Warm, dry. Cap refil ~2 seconds, without pitting edema Results & Data Results & Data ([facility]) Vital Signs (Past 12 Hours) Vital Signs Temp Pulse Pulse Resp BP Pulse Ox O2 Del Method 06/03/22 22:13 36.9 C 87 18 157/77 H 96 Nasal Cannula 06/03/22 19:55 Nasal Cannula 06/03/22 19:34 82 20 96 Nasal Cannula 06/03/22 16:00 36.8 C 82 18 121/67 95 Room Air O2 Flow Rate 06/03/22 22:13 4 06/03/22 19:55 4 06/03/22 19:34 4 06/03/22 16:00 PG Care Time/CCT Total # of Minutes Spent Total Time Spent with Patient: Total time spent is greater than 50% in coordination of care (as documented) at patient's floor/unit and/or counseling patient: Coding Level of Care Code 99719 Subseq Hosp Care Lvl 3 Diagnoses Acute respiratory failure with hypoxia and hypercarbia J96.01; J96.02 Acute dyspnea R06.00 Elevated lactic acid level R79.89 Uncontrolled type 2 diabetes mellitus with hyperosmolarity, without long-term current use of insulin E11.00 Hypertension I10 Hypertension type: essential hypertension Hyperlipidemia E78.5 Hyperlipidemia type: unspecified Cor pulmonale I27.81 Anxiety F41.9 Asymptomatic bacteriuria R82.71 Pulmonary edema J81.1 Pneumonia J18.9 Time Spent (min) 35 (1) Hyperlipidemia Hyperlipidemia type: unspecified Qualified Code(s): E78.5 - Hyperlipidemia, unspecified (2) Hypertension Hypertension type: essential hypertension Qualified Code(s): I10 - Essential (primary) hypertension
[2022-06-04 00:06] LABS: Hemoglobin 10.1 g/dl (12.0-16.0); Mean Corpuscular Hemoglobin 33.7 pg (25.0-34.0); Mean Corpuscular Hgb Conc 32.6 g/dL (32.0-36.0); Mean Corpuscular Volume 103.3 fL (80.0-100.0); Mean Platelet Volume 8.8 fL (9.4-12.3); Platelet Count 712 K/uL (130-400); RDW Coefficient of Variation 14.2 % (11.5-14.5); RDW Standard Deviation 53.5 fL (36.4-46.3); White Blood Count 14.19 K/ul (4.8-10.8)
[2022-06-04] MEDS: SODIUM CHLOR 7% 4 ML NEB NEB SCH ×2 (07:27→17:50)
[2022-06-04] MEDS: CYANOCOBALAMIN (B-12) 500 MCG TABLET PO SCH (08:19)
[2022-06-04] MEDS: GABAPENTIN 300 MG CAP PO SCH ×3 (08:19→20:46)
[2022-06-04 08:20] LABS: Base Excess VBG 18.8 mEq/L; HCO3 VBG 47 mmol/L; Oxygen Saturation VBG 92.7 %; PCO2 VBG 69 mmHg (38-50); PO2 VBG 66 mmHg; pH VBG 7.44 (7.36-7.41)
[2022-06-04] MEDS: AMOXICILLIN 500 MG CAP PO SCH ×3 (08:20→20:45)
[2022-06-04] MEDS: FUROSEMIDE 40 MG/4 ML VIAL IV SCH (08:21)
[2022-06-04 08:45] LABS: BUN Creatinine Ratio 35.7 (10-20); Calcium 10.2 mg/dl (8.5-10.1); Creatinine Clr Calc Pharmacy 109.7 ml/min; Est GFR (African American) 109.5 ml/min; Est GFR (Non-African American) 94.5 ml/min; Potassium 4.2 mmol/L (3.5-5.1)
[2022-06-04] MEDS: INSULIN ASPART PER UNIT SC SCH ×4 (08:49→21:40)
[2022-06-04] MEDS: LANTUS PER UNIT CHARGE SQ SCH (08:50)
[2022-06-04] MEDS: ENOXAPARIN INJ 40 MG/0.4 ML SYR SQ SCH (20:46)
[2022-06-04] MEDS: ASPIRIN 81 MG ECTAB PO SCH (20:46)
[2022-06-04] MEDS: QUEtiapine FUMARATE 100 MG TABLET PO SCH (20:46)
[2022-06-04] MEDS: ATORVASTATIN 40 MG TAB PO SCH (20:46)
[2022-06-04] MEDS ORDERED: LANTUS PER UNIT CHARGE SQ SCH (21:00)
--- NOTE | 2022-06-04 21:30 | Hospitalist Progress Note ---
Date of Service June 04, 2022 Assessment & Plan (1) Acute respiratory failure with hypoxia and hypercarbia: Plan: Acute hypoxic respiratory failure, shortness of breath. - Initially received solu-medrol for COPD exacerbation and cefepime for PNA. Stopped on day of admission. Repeat procalcitonin with a.m. labs. - Biofire PCR negative - 3 days of cough, shortness of breath, increased oxygen requirements prior to admssion - CXR: Persistent opacification of the left lung with underlying volume loss. concern over mucous plug. - Appreciate pulmonology management - ordered hypertonic saline nebs, chest PT - s/p bronchoscopy [05/27], beta strep not A, B, C, F or G on bronchial culture - started on amoxicillin 1g TID for 7 days per discussion with infectious disease - Significant pulmonary edema on her chest x-ray 05/29 although BNP unremarkable. Started on Lasix 40 mg IV daily [05/30] -continues to require 5 liters nasal cannula on 06/02 -she is normally on 4 liters at home, will get overnight pulse ox and get ABG. Patient meets criteria for BIPAP as CO2 was elevated. gave script to caser up, likely will be set up on Sunday. Cannot be discharged until this has been completed. Patient continued to have respiratory acidosis on 06/04, will try to limit o2 sat to 88-92% to limit CO2 retension (2) Acute dyspnea: Plan: As above (3) Elevated lactic acid level: Plan: Now resolved (4) Uncontrolled type 2 diabetes mellitus with hyperosmolarity, without long- term current use of insulin: Plan: On Lantus/Januvia/metformin at home. Hold home meds Appreciate pharmacy consult for basal bolus insulin dosing, glucose 162-236 yesterday (5) Hypertension: Plan: Continue aspirin 81 mg daily Lisinopril held for hypotension Continue Lasix 40 mg IV daily as above TTE 12/12/2021: LV SF normal, grade 1 diastolic dysfunction, RV dilation (6) Hyperlipidemia: Plan: Continue statin (7) Cor pulmonale: (8) Anxiety: Plan: Continue quetiapine 150 mg at bedtime (9) Asymptomatic bacteriuria: Plan: No symptoms therefore no need to treat Klebsiella or Pseudomonas in urine culture (10) Pulmonary edema: Plan: Diuresis as above (11) Pneumonia: Plan: Antibiotics as above Plan DVT prophylaxis: Lovenox can reduce to QPM as BMI now < 40 Diet: T2DM CODE STATUS: DNR/DNI Disposition: Continue on [facility] Admission and Anticipated Discharge Date Admission Date: May 23, 2022 Subjective 71 yo female reports no new symptoms. Review of Systems Review of Systems: All systems reviewed & are unremarkable except as noted in HPI & below Physical Exam Physical Exam: General: A&Ox3. NAD. Cooperative. Somnolent but arouses easily HEENT: Atraumatic, normocephalic. Vision/hearing intact Pulm: Coarse, decreased breath sounds. Symmetrical chest rise. Cardiac: RRR, -mrg. Radial pulses intact and symmetrical. Abdominal: Nontender, nondistended, soft. BS present. Ext: Warm, dry. Cap refil ~2 seconds, without pitting edema Results & Data Results & Data ([facility]) Vital Signs (Past 12 Hours) Vital Signs Temp Pulse Resp BP Pulse Ox O2 Del Method O2 Flow Rate 06/04/22 17:53 86 18 96 Nasal Cannula 3 06/04/22 16:10 36.9 C 82 16 146/76 H 94 Nasal Cannula 4 PG Care Time/CCT Total # of Minutes Spent Total Time Spent with Patient: Total time spent is greater than 50% in coordination of care (as documented) at patient's floor/unit and/or counseling patient: Coding Level of Care Code 39730 Subseq Hosp Care Lvl 2 Diagnoses Acute respiratory failure with hypoxia and hypercarbia J96.01; J96.02 Acute dyspnea R06.00 Elevated lactic acid level R79.89 Uncontrolled type 2 diabetes mellitus with hyperosmolarity, without long-term current use of insulin E11.00 Hypertension I10 Hypertension type: essential hypertension Hyperlipidemia E78.5 Hyperlipidemia type: unspecified Cor pulmonale I27.81 Anxiety F41.9 Asymptomatic bacteriuria R82.71 Pulmonary edema J81.1 Pneumonia J18.9 (1) Hyperlipidemia Hyperlipidemia type: unspecified Qualified Code(s): E78.5 - Hyperlipidemia, unspecified (2) Hypertension Hypertension type: essential hypertension Qualified Code(s): I10 - Essential (primary) hypertension
[2022-06-05] MEDS ORDERED: INSULIN ASPART PER UNIT SC SCH (02:00)
[2022-06-05 06:36] LABS: Base Excess VBG 15.5 mEq/L; HCO3 VBG 43 mmol/L; Oxygen Saturation VBG 97.7 %; PCO2 VBG 65 mmHg (38-50); PO2 VBG 93 mmHg; pH VBG 7.43 (7.36-7.41)
[2022-06-05 06:39] LABS: Hematocrit (blood only) 27.4 % (34.1-44.9); Hemoglobin 8.8 g/dl (12.0-16.0); Mean Corpuscular Hemoglobin 33.1 pg (25.0-34.0); Mean Corpuscular Hgb Conc 32.1 g/dL (32.0-36.0); Mean Platelet Volume 8.8 fL (9.4-12.3); Nucleated RBC # (auto) 0.02 K/uL (0-0); Nucleated RBC % (auto) 0.2 %; Platelet Count 539 K/uL (130-400); RDW Coefficient of Variation 14.5 % (11.5-14.5); RDW Standard Deviation 54.3 fL (36.4-46.3); Red Blood Count 2.66 M/uL (3.93-5.22); White Blood Count 8.96 K/ul (4.8-10.8)
[2022-06-05 07:04] LABS: BUN Creatinine Ratio 33.9 (10-20); Calcium 9.8 mg/dl (8.5-10.1); Creatinine Clr Calc Pharmacy 109.7 ml/min; Est GFR (African American) 109.5 ml/min; Est GFR (Non-African American) 94.5 ml/min; Potassium 3.7 mmol/L (3.5-5.1)
[2022-06-05] MEDS: SODIUM CHLOR 7% 4 ML NEB NEB SCH ×2 (07:26→20:11)
[2022-06-05] MEDS: CYANOCOBALAMIN (B-12) 500 MCG TABLET PO SCH (09:25)
[2022-06-05] MEDS: GABAPENTIN 300 MG CAP PO SCH ×3 (09:25→21:16)
[2022-06-05] MEDS: AMOXICILLIN 500 MG CAP PO SCH ×3 (09:25→21:13)
[2022-06-05] MEDS: LANTUS PER UNIT CHARGE SQ SCH ×2 (09:32→21:22)
[2022-06-05] MEDS: INSULIN ASPART PER UNIT SC SCH ×4 (09:32→21:23)
[2022-06-05] MEDS: FUROSEMIDE 40 MG/4 ML VIAL IV SCH (09:34)
--- NOTE | 2022-06-05 10:45 | Pharmacy Report ---
Pharmacy Glycemic Short Note 2 - Date of Service June 05, 2022 - Glycemic Short BSG Results (Last 24 hours): 06/04/22 06/04/22 06/04/22 12:14 17:24 20:32 Glucose POC Glucose 204 H 245 H 188 H 06/05/22 06/05/22 06/05/22 01:56 06:26 08:04 Glucose 162 H POC Glucose 183 H 186 H OUTPATIENT ANTIDIABETIC REGIMEN: * Lantus 35 units SC HS * Metformin 850 mg PO TIDM * Januvia 100 mg PO daily * HbA1c = 4.6% (05/25/22) ASSESSMENT: 06/05: * Patient received 76 units of insulin yesterday, of which 35 units was basal. Fasting BSG was 162 mg/dl - improving therefore we will continue same basal dose today. However split 50/50 AM & PM dose. Blood sugar still above goal yesterday, therefore tightened Carb ratio to 4. 3: * BSGs were elevated for the major part of yesterday above 200 mg/dl. Novolog parameters tightened yesterday and further tightened again today. * Fasting BSG elevated this morning, so basal dose increased 25% today. 06/01: * Fasting BSG elevated this AM at 213mg/dl, despite increase in basal and tightening NovoLog parameters yesterday, continue to titrate basal up today, and tighten NovoLog. 05/31: * BSGs 342-378-620bf/dL the last 24h. Fasting BSG this AM elevated to 202mg/dL. Patient received 15 units of basal and 21 units of bolus insulin yesterday. * PO intake has decreased throughout the past day, however BSGs still above goal. Lantus increased to 17 units and Novolog tightened today. Monitor BSGs closely and adjust as necessary. 05/30: * Traci received a total of 31 units of Insulin yesterday (12 units basal + 19 units bolus) * Fasting BSG 231 mg/dl, random level was 183 and POC at noon was 162 mg/dl - tolerating diet * Today I increased her basal insulin to 15 units, no change to Novolog 05/27: * Patient received total of 20 units of insulin yesterday, of which 12 units were basal insulin * Fasting BSG 160 mg/dL - NPO now, AM basal held. Unclear how long patient to be NPO. Lunch BSG trending up. Will resume basal with dinner but reduce ~25% for NPO status 05/26: * Traci received a total of 31 units of insulin yesterday, 24 units basal + 7 units bolus. BSGs were: 642-194-133-139 mg/dL. * Received 40 mg of Solumedrol yesterday morning then it was discontinued. Cefepime discontinued as well. * Will reduce basal today by 50% to reflect previous admission data without steroids. No other changes at this point. 05/24: * Ms Roman is a 71 y/o F who presents with pneumonia. She is currently on Solu-Medrol 40 mg IV q12. * On admission, BSG was 135 mg/dL. Patient received 8 units of Lantus. * Pharmacy consulted after morning BSG of 204 mg/dL. Patient received scheduled 8 units of Lantus. * Will give 15 units tonight for total of 23 units of basal today. This is similar to previous admission. * Tighten CF and add CR for steroid hyperglycemia. * If patient continues to trend up will continue to tighten CR as this is what steroids primarily affects. PLAN FOR INPATIENT GLYCEMIC CONTROL: * Hold outpatient oral diabetes medications * Basal insulin * Lantus 18 units SC BID * Bolus insulin * NovoLog per scale ACHS or Q6hrs while NPO * Goal Range: Low 110 mg/dL - High 140 mg/dL * Correction Factor: 10 mg/dL/unit * Nutritional / Prandial insulin per carb ratio of 1 unit per 4 grams CHO consumed
[2022-06-05] MEDS: ALBUT/IPRATROP 3MG/0.5MG NEB 3 ML VIAL NEB PRN (20:11)
[2022-06-05] MEDS: ASPIRIN 81 MG ECTAB PO SCH (21:15)
[2022-06-05] MEDS: ATORVASTATIN 40 MG TAB PO SCH (21:16)
[2022-06-05] MEDS: ENOXAPARIN INJ 40 MG/0.4 ML SYR SQ SCH (21:16)
[2022-06-05] MEDS: QUEtiapine FUMARATE 100 MG TABLET PO SCH (21:17)
--- NOTE | 2022-06-05 22:09 | Hospitalist Progress Note ---
Date of Service June 05, 2022 Assessment & Plan (1) Acute respiratory failure with hypoxia and hypercarbia: Plan: Acute hypoxic respiratory failure, shortness of breath. - Initially received solu-medrol for COPD exacerbation and cefepime for PNA. Stopped on day of admission. Repeat procalcitonin with a.m. labs. - Biofire PCR negative - 3 days of cough, shortness of breath, increased oxygen requirements prior to admssion - CXR: Persistent opacification of the left lung with underlying volume loss. concern over mucous plug. - Appreciate pulmonology management - ordered hypertonic saline nebs, chest PT - s/p bronchoscopy [05/27], beta strep not A, B, C, F or G on bronchial culture - started on amoxicillin 1g TID for 7 days per discussion with infectious disease - Significant pulmonary edema on her chest x-ray 05/29 although BNP unremarkable. Started on Lasix 40 mg IV daily [05/30] -continues to require 5 liters nasal cannula on 06/02 -she is normally on 4 liters at home, will get overnight pulse ox and get ABG. Patient meets criteria for BIPAP as CO2 was elevated. gave script to gearcase assembler, likely will be set up on Sunday. Cannot be discharged until this has been completed. Patient continued to have respiratory acidosis on 06/04, will try to limit o2 sat to 88-92% to limit CO2 retention. VBG on 06/05 also shows respiratory acidosis. will continue 3 liters nasal cannula. will repeat overnight sleep study as patient did not qualify as she needs 5 minutes continuously of 88% or less of O2 sat (2) Acute dyspnea: Plan: As above (3) Elevated lactic acid level: Plan: Now resolved (4) Uncontrolled type 2 diabetes mellitus with hyperosmolarity, without long- term current use of insulin: Plan: On Lantus/Januvia/metformin at home. Hold home meds Appreciate pharmacy consult for basal bolus insulin dosing, glucose 162-236 yesterday (5) Hypertension: Plan: Continue aspirin 81 mg daily Lisinopril held for hypotension Continue Lasix 40 mg IV daily as above TTE 12/12/2021: LV SF normal, grade 1 diastolic dysfunction, RV dilation (6) Hyperlipidemia: Plan: Continue statin (7) Cor pulmonale: (8) Anxiety: Plan: Continue quetiapine 150 mg at bedtime (9) Asymptomatic bacteriuria: Plan: No symptoms therefore no need to treat Klebsiella or Pseudomonas in urine culture (10) Pulmonary edema: Plan: Diuresis as above (11) Pneumonia: Plan: Antibiotics as above Plan DVT prophylaxis: Lovenox can reduce to QPM as BMI now < 40 Diet: T2DM CODE STATUS: DNR/DNI Disposition: Continue on [facility] Admission and Anticipated Discharge Date Admission Date: May 23, 2022 Subjective 71 yo female reports no new complaints. Review of Systems Review of Systems: All systems reviewed & are unremarkable except as noted in HPI & below Physical Exam Physical Exam: General: A&Ox3. NAD. Cooperative. Somnolent but arouses easily HEENT: Atraumatic, normocephalic. Vision/hearing intact Pulm: Coarse, decreased breath sounds. Symmetrical chest rise. Cardiac: RRR, -mrg. Radial pulses intact and symmetrical. Abdominal: Nontender, nondistended, soft. BS present. Ext: Warm, dry. Cap refil ~2 seconds, without pitting edema Results & Data Results & Data ([facility]) Vital Signs (Past 12 Hours) Vital Signs Temp Pulse Resp BP BP Pulse Ox O2 Del Method 06/05/22 22:02 36.7 C 83 18 150/72 H 93 Nasal Cannula 06/05/22 20:12 93 H 20 97 Nasal Cannula 06/05/22 14:47 37 C 96 H 16 113/73 96 Room Air O2 Flow Rate 06/05/22 22:02 3 06/05/22 20:12 3 06/05/22 14:47 3 PG Care Time/CCT Total # of Minutes Spent Total Time Spent with Patient: Total time spent is greater than 50% in coordination of care (as documented) at patient's floor/unit and/or counseling patient: Coding Level of Care Code 49263 Subseq Hosp Care Lvl 2 Diagnoses Acute respiratory failure with hypoxia and hypercarbia J96.01; J96.02 Acute dyspnea R06.00 Elevated lactic acid level R79.89 Uncontrolled type 2 diabetes mellitus with hyperosmolarity, without long-term current use of insulin E11.00 Hypertension I10 Hypertension type: essential hypertension Hyperlipidemia E78.5 Hyperlipidemia type: unspecified Cor pulmonale I27.81 Anxiety F41.9 Asymptomatic bacteriuria R82.71 Pulmonary edema J81.1 Pneumonia J18.9 (1) Hyperlipidemia Hyperlipidemia type: unspecified Qualified Code(s): E78.5 - Hyperlipidemia, unspecified (2) Hypertension Hypertension type: essential hypertension Qualified Code(s): I10 - Essential (primary) hypertension
[2022-06-06] MEDS: SODIUM CHLOR 7% 4 ML NEB NEB SCH (07:22)
[2022-06-06] MEDS: CYANOCOBALAMIN (B-12) 500 MCG TABLET PO SCH (08:40)
[2022-06-06] MEDS: GABAPENTIN 300 MG CAP PO SCH ×2 (08:41→13:04)
[2022-06-06] MEDS: AMOXICILLIN 500 MG CAP PO SCH ×2 (08:41→13:05)
[2022-06-06] MEDS: INSULIN ASPART PER UNIT SC SCH ×2 (08:44→13:04)
[2022-06-06] MEDS: LANTUS PER UNIT CHARGE SQ SCH (08:45)
[2022-06-06] MEDS: FUROSEMIDE 40 MG/4 ML VIAL IV SCH (08:54)
[2022-06-06] MEDS: metFORMIN HCL 850 MG TAB PO SCH ×2 (09:12→13:04)
[2022-06-06 10:36] LABS: Hematocrit (blood only) 28.6 % (34.1-44.9); Hemoglobin 9.2 g/dl (12.0-16.0); Mean Corpuscular Hemoglobin 33.1 pg (25.0-34.0); Mean Corpuscular Hgb Conc 32.2 g/dL (32.0-36.0); Mean Corpuscular Volume 102.9 fL (80.0-100.0); Mean Platelet Volume 8.8 fL (9.4-12.3); Nucleated RBC # (auto) 0.02 K/uL (0-0); Nucleated RBC % (auto) 0.2 %; Platelet Count 575 K/uL (130-400); RDW Coefficient of Variation 14.6 % (11.5-14.5); RDW Standard Deviation 54.4 fL (36.4-46.3); Red Blood Count 2.78 M/uL (3.93-5.22); White Blood Count 9.32 K/ul (4.8-10.8)
[2022-06-06 10:39] LABS: Base Excess ABG 16.9 mEq/L (-9-1.8); HCO3 ABG 43 mmol/L (19-24); Oxygen Saturation ABG 98.3 % (90-95); PCO2 ABG 59 mmHg (35-46); PO2 ABG 92 mmHg (80-95); pH ABG 7.47 (7.35-7.45)
[2022-06-06 11:06] LABS: BUN Creatinine Ratio 28.8 (10-20); Calcium 10.3 mg/dl (8.5-10.1); Creatinine Clr Calc Pharmacy 104.1 ml/min; Est GFR (African American) 107.6 ml/min; Est GFR (Non-African American) 92.9 ml/min; Potassium 3.6 mmol/L (3.5-5.1)
[2022-06-06 11:12] LABS: Allen Test Pos (Pos)
--- NOTE | 2022-06-06 14:27 | Pharmacy Report ---
Pharmacy Glycemic Short Note 2 - Date of Service June 06, 2022 - Glycemic Short BSG Results (Last 24 hours): 06/05/22 06/05/22 06/06/22 16:59 20:40 08:21 Glucose POC Glucose 175 H 230 H 239 H 06/06/22 06/06/22 10:14 12:16 Glucose 198 H POC Glucose 182 H OUTPATIENT ANTIDIABETIC REGIMEN: * Lantus 35 units SC HS * Metformin 850 mg PO TIDM * Januvia 100 mg PO daily * HbA1c = 4.6% (05/25/22) ASSESSMENT: * Ms Roman has received ~70-90 units of insulin per day for the past few days, with BSGs still primarily above goal range. This is significantly greater than her home insulin requirements. * Patient's PO DM medications were resumed this morning in an effort to reduce insulin requirements. Novolog parameters were loosened to prevent over- correction. * Will continue to follow and adjust as indicated. PLAN FOR INPATIENT GLYCEMIC CONTROL: * Resume outpatient oral diabetes medications * Metformin 850mg PO TIDM * Januvia 100mg PO qPM * Basal insulin * Lantus 18 units SC BID * Bolus insulin * NovoLog per scale ACHS or Q6hrs while NPO * Goal Range: Low 110 mg/dL - High 140 mg/dL * Correction Factor: 15 mg/dL/unit * Nutritional / Prandial insulin per carb ratio of 1 unit per 5 grams CHO consumed
[2022-06-06] MEDS ORDERED: SITagliptin PHOSPHATE 100 MG TAB PO SCH (21:00)
--- NOTE | 2022-06-13 11:57 | Discharge Summary ---
Date of Service June 06, 2022 Admission HPI Per Admitting Provider Traci is a 71-year-old female with past medical history of cor pulmonale, NSTEMI, subdural hematoma, subarachnoid hemorrhage, compression fractures, palliative evaluation, uncontrolled type 2 diabetes mellitus, CHF, pressure ulcers, COPD, SBO, and roy who presents with cough and shortness of breath. She is on 4 to 5 L of oxygen at baseline, over the last 3 days she has been short of breath despite increasing it to 5 L. Nonproductive cough. No fevers. Patient is seen at the bedside with her . She is currently on BiPAP. She reports that she has had about 3 days of increased shortness of breath, cough, and greenish mucus production with her cough. Has had increased fatigue over this period. Denies chest pain, nausea, vomiting, diarrhea, constipation, fevers, chills, headache. She reports that she has severe COPD at baseline, for which she is on home oxygen normally 3 L. She does have history of mucoid impaction and did have a bronchoscopy November 2021. Feels her breathing has been okay since then until it worsened 3 days ago. No chest pressure. Was peeing normally up until about 3 days ago, has not peed in the last 3 to 4 days. Reports she is not drinking water, feels tired and dehydrated. Denies abdominal pain/dysuria. Medical History: Reviewed Medications: Reviewed Surgical History: Reviewed Allergies: Reviewed Social History: Current tobacco use, no alcohol use Code Status: Full code On ER evaluation: No leukocytosis Hemoglobin 9.7, baseline 8.912 MCV 110 AB.3 3/60/32 consistent with respiratory acidosis Sodium normal, potassium 5.5 Creatinine with normal baseline, 0.77 on admission. Creatinine clearance 82. Lactate 2.5 on admission, magnesium 1.6. Lactate repeat pending Troponin normal Procalcitonin normal Bio fire negative CXR: Persistent opacification of left lung with underlying volume loss,? Atelectasis versus superimposed pneumonia Principal Diagnosis acute hypercapnic and hypoxic respiratory failure Discharge Exam General: A&Ox3. NAD. Cooperative. Somnolent but arouses easily HEENT: Atraumatic, normocephalic. Vision/hearing intact Pulm: Coarse, decreased breath sounds. Symmetrical chest rise. Cardiac: RRR, -mrg. Radial pulses intact and symmetrical. Abdominal: Nontender, nondistended, soft. BS present. Ext: Warm, dry. Cap refil ~2 seconds, without pitting edema Discharge Data Allergies Allergy/AdvReac Type Severity Reaction Status Date / Time latex Allergy Severe 2ND DEGREE Verified 08/25/21 07:43 BURN FROM BANDAGE adhesive Allergy Intermediate RASH Verified 08/25/21 07:43 Consultations 05/23/22 16:33 ED Decision to Admit Stat 05/24/22 17:57 Consult Pulmonology Routine Ordered Studies 05/25/22 10:25 CT chest diagnostic wo con Routine Hospital Course (1) Acute respiratory failure with hypoxia and hypercarbia: Acute hypoxic respiratory failure, shortness of breath. - Initially received solu-medrol for COPD exacerbation and cefepime for PNA. Stopped on day of admission. Repeat procalcitonin with a.m. labs. - Biofire PCR negative - 3 days of cough, shortness of breath, increased oxygen requirements prior to admssion - CXR: Persistent opacification of the left lung with underlying volume loss. concern over mucous plug. - Appreciate pulmonology management - ordered hypertonic saline nebs, chest PT - s/p bronchoscopy [05/27], beta strep not A, B, C, F or G on bronchial culture - started on amoxicillin 1g TID for 7 days per discussion with infectious disease - Significant pulmonary edema on her chest x-ray 05/29 although BNP unremarkable. Started on Lasix 40 mg IV daily [05/30] -continues to require 5 liters nasal cannula on 06/02 -she is normally on 4 liters at home, will get overnight pulse ox and get ABG. Patient meets criteria for BIPAP as CO2 was elevated. gave script to correctional case records supervisor, likely will be set up on Sunday. Cannot be discharged until this has been completed. Patient continued to have respiratory acidosis on 06/04, will try to limit o2 sat to 88-92% to limit CO2 retention. Patient qualified for BIPAP at home. will be discharged on 2 liters nasal cannula and will recommend followup with PCP. Patient will need to have a goal of 88-92% O2 sat. (2) Acute dyspnea: As above (3) Elevated lactic acid level: Now resolved (4) Uncontrolled type 2 diabetes mellitus with hyperosmolarity, without long- term current use of insulin: On Lantus/Januvia/metformin at home. Hold home meds Appreciate pharmacy consult for basal bolus insulin dosing, glucose 162-236 yesterday (5) Hypertension: Continue aspirin 81 mg daily Lisinopril held for hypotension Continue Lasix 40 mg IV daily as above TTE 12/12/2021: LV SF normal, grade 1 diastolic dysfunction, RV dilation (6) Hyperlipidemia: Continue statin (7) Cor pulmonale: (8) Anxiety: Continue quetiapine 150 mg at bedtime (9) Asymptomatic bacteriuria: No symptoms therefore no need to treat Klebsiella or Pseudomonas in urine culture (10) Pulmonary edema: Diuresis as above (11) Pneumonia: Antibiotics as above Plan DVT prophylaxis: Lovenox can reduce to QPM as BMI now < 40 Diet: T2DM CODE STATUS: DNR/DNI Disposition: Continue on MedSurg Total Time Total Time Spent Total Time Spent (In Minutes): 32 Discharge Plan Discharge Items Patient Disposition: Home - Self-Care Reason For Visit: AHRF, ?PNA Discharge Diagnosis: acute respiratory failure Activity: Resume your previous activity Non-emergency contact: Primary Care Provider Call non-emergency contact if: you have any medication questions Follow-up/Referrals: Caryn Avalos MD [Primary Care Provider] - 06/12/22 10:00 am (appt will be with Jose Jaimes PA-C) Diet: Carb Consistent or DM2 and Heart Healthy Addtl Attending Provider Instructions: Recommend followup with your PCP. Recommend a sleep study to see if you qualify for BIPAP. Your oxygen requirements improved, will recommend to continue on lasix 40 mg daily. will also recommend to have your PCP recheck your kidney blood work in 1 week. Your oxygen level improved. Goal would be to keep your o2 saturation 88-92%. HIgher levels may cause you to retain carbon dioxide which may make you drowsy. You appear comfortable on 2 liters nasal cannula. This is an improvement from where you were before you came to the hospital. Pending Studies at Discharge: No Stand-Alone Forms: My [facility] [employer] Smoking Cessation Medications and DC Order Prescriptions: New furosemide [Lasix] 40 mg tablet 40 mg PO DAILY Qty: 30 0RF potassium chloride 10 mEq tablet extended release 10 meq PO DAILY Qty: 30 0RF Continued atorvastatin [Lipitor] 80 mg Tablet 80 mg PO HS aspirin [Malcom Low Dose Aspirin] 81 mg Tablet,Delayed Release (Dr/Ec) 81 mg PO QPM gabapentin 300 mg Capsule 300 mg PO TID Januvia 100 mg tablet 100 mg PO QPM insulin glargine [Lantus Solostar U-100 Insulin] 100 unit/mL (3 mL) insulin pen 35 unit SC HS Rx Instructions: PT STATED "THINKS IT RAISED TO 35 UNITS, BUT NOT SURE". metformin 850 mg tablet 850 mg PO TIDM quetiapine 100 mg tablet 150 mg PO HS lisinopril 5 mg tablet 5 mg PO DAILY Discontinued furosemide 20 mg tablet 20 mg PO DAILY lorazepam 1 mg tablet 1 mg PO BID PRN (Reason: Anxiety) Discharge Orders: Discharge Order (Routine); Ordered 06/06/22 Ordered By: Paul Parr Admission Data Admit Date/Time: 05/23/22 17:01 Attending Provider: Paul Parr Admit Provider: Kaiden Grimes Primary Care Provider: Caryn Avalos Other Providers: Kaiden Grimes ; Cuco Gonzalez Other Interventions: Discharge Summary Assessment (RN) Last Done: 06/06/22 15:26 Coding Level of Care Code D/C DAY MANAGEMENT >30 MINS Diagnoses Acute respiratory failure with hypoxia and hypercarbia J96.01; J96.02 Acute dyspnea R06.00 Elevated lactic acid level R79.89 Uncontrolled type 2 diabetes mellitus with hyperosmolarity, without long-term current use of insulin E11.00 Hypertension I10 Hypertension type: essential hypertension Hyperlipidemia E78.5 Hyperlipidemia type: unspecified Cor pulmonale I27.81 Anxiety F41.9 Asymptomatic bacteriuria R82.71 Pulmonary edema J81.1 Pneumonia J18.9
--- NOTE | 2022-06-15 07:03 | Coding Query ---
CODING QUERY To promote full compliance with coding requirements relating to patient care, provider participation is requested in all cases of network planner uncertainty. Please assist us with the question(s) below: Coding Question(s): Pt admitted with acute hypoxic/hypercapnic respiratory failure. Pulmonary consulted : pt had atelectasis for last 5 months. Mucous plugging found via bronchoscopy in bronchus/lavage performed. Progress notes and DS document pneumonia. Please document, if known or suspected, the etiology of the acute hypoxic /hypercapnic respiratory failure. Thanks for your help. Uriel Servin, [facility] Physician's Response(s): Cause was multifactorial: mucous plugging, pulmonary collapse, obesity hypoventilation syndrome Principal Diagnosis: "that condition established after study, to be chiefly responsible for occasioning the admission of the patient to the hospital for care." Co-Existing Principal Diagnosis: "when two or more diagnoses equally meet the criteria for principal diagnosis as determined by the circumstances of admission, diagnostic work up, and/or therapy provided, and the Alphabetic Index, Tabular List, or another coding guideline does not provide sequencing direction, any one of the diagnoses may be sequenced first." "When the physician has documented what appears to be a current diagnosis in the body of the record, but has not included the diagnosis in the final diagnostic statement, the physician should be asked whether the diagnosis should be added." (Source Coding [facility] 2 QTR90. p3-4) JAMES
== END 2022-06-06 15:59 | disposition home or self-care (01) | DRG 205 ==
LOC: ED 13:17 → SUATTDRO 17:01 → 4W 17:01 → 3N 05-28 23:44

== ENCOUNTER 2023-08-07 11:09 | Inpatient (IN) ==
--- NOTE | 2023-08-07 11:34 | Emergency Department Note ---
Impression & Plan Acute on chronic respiratory failure with hypoxia and hypercapnia, COPD exacerbation, Closed right fibular fracture ED Provider Note NAME: ANABEL VACA AGE: 72 SEX: F ARRIVES VIA: Ambulance INFORMANT: Patient ED PROVIDER(S): Aidan Juarez MD CHIEF COMPLAINT: Shortness of breath, weakness, fall PLAN: Disposition: Admit MEDICAL DECISION MAKING: The patient is a 72-year-old woman with a past medical history of cor pulmonale, CAD, subdural hematoma, subarachnoid hemorrhage, compression fractures, type 2 diabetes, CHF, COPD, chronic respiratory failure with hypoxia on home oxygen who presents to the emergency department via EMS for generalized weakness with a fall where she describes that she slipped out of bed. She denies hitting her head or losing consciousness. She reports some shortness of breath from her baseline. She reports pain in both hips, knees and her right ankle. She denies any recent fevers, chills, nausea, vomiting or diarrhea. On my evaluation the patient is chronically ill-appearing but no acute distress, afebrile with stable vital signs. She appears hypervolemic. She has wheezes of bilateral lung rodgers and is diminished at the bases. She has pain with range of motion of bilateral hips, knees. There is tenderness palpation over the right lateral knee without gross deformity. She has mild tenderness of the right medial malleolus of the ankle. Head is atraumatic. She is mildly drowsy/somnolent but alert to normal voice. EKG without overt acute ischemia. Chest x-ray demonstrates asymmetric interstitial and alveolar airspace opacities which may reflect asymmetric pulmonary edema though infection is not excluded. WBC, platelets within normal limits. H/H similar to prior range of values. VBG demonstrates acute on chronic respiratory acidosis with pH of 7.3 and pCO2 of 69. Chemistry demonstrates a bicarbonate of 34 consistent with component of chronic hypercapnia. High-sensitivity troponin 12.6, within normal limits. BNP is not elevated. Lipase is normal. Procalcitonin is pending. Respiratory BioFire is negative. Plain films of bilateral knees and pelvis performed. Note is made of nondisplaced right proximal fibular fracture with recommendation for right ankle films to exclude Maisonneuve fracture pattern. Right ankle x-ray ordered and pending. Given the patient's acute on chronic respiratory failure likely related to predominant component of COPD in the setting of her fall with fibula fracture in the setting of chronic immobility patient agrees with plan for admission for further management. Treatment was initiated with Solu-Medrol, DuoNeb and BiPAP for acute on chronic respiratory failure with hypoxia and hypercapnia. Case was discussed with SID Zendejas PAC, with CIARA Pizano hospitalist who will evaluate the patient for admission. Further management per admitting team. Triage Nursing notes reviewed and agree them. Prior/external medical records reviewed Vital Signs: reviewed Differential diagnosis: Infection, dehydration, metabolic abnormality, hypo/hyperglycemia, electrolyte disturbance, anemia, hypoxia, cardiac sources, intracerebral event, toxicologic, neurologic, as well as other pathologies. ER treatment provided: See below. Diagnostics interpreted by me: ECG: Sinus rhythm with first-degree block, 85 bpm, no ectopy, right bundle branch block, no overt ST elevation or depression, QTc 473, QRS 140. Cardiac Monitoring: An order for continuous cardiac monitoring was placed and demonstrated Sinus rhythm with first-degree block, 85 bpm, no ectopy. Laboratory studies: See below Imaging studies: See below Consultation(s): Case was discussed with SID Zendejas PAC, with SID Pizano hospitalist who will evaluate the patient for admission. HPI: The patient is a 72-year-old woman with a past medical history of cor pulmonale, CAD, subdural hematoma, subarachnoid hemorrhage, compression fractures, type 2 diabetes, CHF, COPD, chronic respiratory failure with hypoxia on home oxygen who presents to the emergency department via EMS for generalized weakness with a fall where she describes that she slipped out of bed. She denies hitting her head or losing consciousness. She reports some shortness of breath from her baseline. She reports pain in both hips, knees and her right ankle. She denies any recent fevers, chills, nausea, vomiting or diarrhea. ROS: See above HPI for pertinent positives & negatives. A total of 10 systems reviewed and were otherwise negative. VITALS:See Below PHYSICAL EXAMINATION: GENERAL: Awake, alert to normal voice, acute on chronically ill appearing, in no distress, BMI 48.8. HENT: Normocephalic, atraumatic. Oropharynx unremarkable. EYES: Normal conjunctiva. Sclera non-icteric. NECK: Supple. No nuchal rigidity. FROM. No JVD. RESPIRATORY: Wheezes of bilateral lung rodgers and is diminished at the bases. CARDIAC: Regular rate, normal rhythm. Extremities warm and well perfused. Pulses equal. ABDOMEN: Soft, non-distended. No tenderness to palpation. No rebound or guarding. No masses. RECTAL: Deferred. MUSCULOSKELETAL: Chest examination reveals no tenderness. The back is symmetrical on inspection without obvious abnormality. There is no CVA tenderness to palpation. She has pain with range of motion of bilateral hips, knees. There is tenderness palpation over the right lateral knee without gross deformity. She has mild tenderness of the right medial malleolus of the ankle. LOWER EXTREMITIES: Calves are equal size bilaterally and non-tender. 1+ BLE edema. No discoloration. NEURO: Mildly somnolent alert to normal voice. No focasl sensory or motor deficits noted. SKIN: No rash or jaundice noted. ED COURSE: Critical Care: I have personally spent greater than 35 minutes of critical care time in the direct management of this patient. This includes bedside care, interpretation of diagnostic studies, and testing, discussion with consultants, patient, and family members, and other required patient management activities. This 35 minutes is in excess of all separately billable procedures. Aidan Juarez MD Past Med/Surg History Medical History Shortness of breath Palliative care encounter Hyponatremia Complicated UTI (urinary tract infection) H/O defect LEFT ARM Diabetes mellitus, type 2 NIDDM Temporomandibular joint disorder NO PROBLEMS RECENTLY. Glaucoma WELL CONTROLLED Anxiety Depression Peripheral neuropathy BILATERAL FEET Hyperlipidemia Hypertension Chronic obstructive pulmonary disease Surgical History S/P JALIL-BSO History of total shoulder replacement RIGHT History of incision and drainage UMBILICAL ABSCESS Hx of umbilical hernia repair X4 -- WEARS SUPPORT BAND DAILY History of colonoscopy History of cholecystectomy History of appendectomy S/P tonsillectomy and adenoidectomy Family History Mother Diabetes mellitus, type 2 Aunt Diabetes mellitus, type 2 Social History Smoking Status: Current every day smoker Tobacco Type: Cigarettes Cigarettes Per Day: quit 1 year ago; Second Hand Exposure: No; Do You Dip or Chew Tobacco: No; Hx Alcohol Use: No Hx Substance Use: No Preferred Language: Swedish Communication Ability: Impaired Collection Systems Foreman Required: No Beliefs That Will Affect Care: None marital status: Current Living Situation: Spouse current occupational status: retired Feels Safe at Home: Yes Safety Concerns: Feels Safe At This Time Assistive Devices: Bedside Commode, CPAP and Wheelchair Allergies Allergies Allergy/AdvReac Type Severity Reaction Status Date / Time latex Allergy Severe 2ND DEGREE Verified 08/25/21 07:43 BURN FROM BANDAGE adhesive Allergy Intermediate RASH Verified 08/25/21 07:43 Home Meds Home Medications Medication Instructions Recorded Confirmed aspirin 81 mg tablet,delayed 0 mg PO QPM 10/30/18 08/07/23 release (Malcom Low Dose Aspirin) atorvastatin 80 mg tablet (Lipitor) 80 mg PO HS 10/30/18 08/07/23 gabapentin 300 mg capsule 300 mg PO TID 10/30/18 08/07/23 sitagliptin phosphate 100 mg 100 mg PO QPM 01/08/21 08/07/23 tablet (Januvia) insulin glargine 100 unit/mL (3 35 unit SC HS 08/25/21 08/07/23 mL) subcutaneous pen (Lantus Solostar U-100 Insulin) lisinopril 5 mg tablet 5 mg PO DAILY 12/13/21 08/07/23 metformin 850 mg tablet 850 mg PO BID 12/13/21 08/07/23 quetiapine 100 mg tablet 150 mg PO HS 12/13/21 08/07/23 furosemide 40 mg tablet (Lasix) 0 mg PO DAILY 08/07/23 08/07/23 potassium chloride 10 mEq 0 meq PO DAILY 08/07/23 08/07/23 tablet,extended release Results & Data (ED) Vital Signs Vital Signs - 24 hr 08/07/23 11:17 08/07/23 11:17 08/07/23 11:32 Temperature 36.8 C Temperature Source Axillary Pulse Rate 99 H 92 H Pulse Rate [Apical] Respiratory Rate 18 20 18 Respiratory Effort / Characteristics Respiratory Depth Blood Pressure 138/68 Blood Pressure [Left Arm] Blood Pressure Mean 91 Blood Pressure Mean [Left Arm] Pulse Oximetry 90 92 79 L Oxygen Delivery Method Nasal Cannula Nasal Cannula Room Air Oxygen Flow Rate 5 5 Fraction of Inspired Oxygen Sepsis Recent Fever Within 48 Hours No Sepsis New/Unexplained Change in Mental Status N/A Sepsis Action Taken by Nursing No Action Required 08/07/23 12:07 08/07/23 12:36 08/07/23 14:00 Temperature Temperature Source Pulse Rate 91 H Pulse Rate [Apical] 79 77 Respiratory Rate 18 13 Respiratory Effort / Characteristics Respiratory Depth Blood Pressure Blood Pressure [Left Arm] 113/69 116/58 L Blood Pressure Mean Blood Pressure Mean [Left Arm] 83 77 Pulse Oximetry 92 91 Oxygen Delivery Method Room Air Nasal Cannula Oxygen Flow Rate 5 Fraction of Inspired Oxygen Sepsis Recent Fever Within 48 Hours Sepsis New/Unexplained Change in Mental Status Sepsis Action Taken by Nursing 08/07/23 14:35 08/07/23 14:35 Temperature Temperature Source Pulse Rate 96 H Pulse Rate [Apical] 96 H Respiratory Rate 20 22 Respiratory Effort / Characteristics Spontaneous Spontaneous Respiratory Depth Normal Blood Pressure Blood Pressure [Left Arm] Blood Pressure Mean Blood Pressure Mean [Left Arm] Pulse Oximetry 94 93 Oxygen Delivery Method Nasal Cannula Oxygen Flow Rate 4 Fraction of Inspired Oxygen 40 Sepsis Recent Fever Within 48 Hours Sepsis New/Unexplained Change in Mental Status Sepsis Action Taken by Nursing Laboratory Data Attestation: I reviewed the patient's lab results. 08/07/23 11:33 08/07/23 11:33 Lab Results 08/07/23 08/07/23 08/07/23 Range/Units 11:33 11:39 13:14 WBC 7.87 (4.8-10.8) K/ul RBC 3.16 L (4.20-5.40) M/uL Hgb 10.5 L (12.0-16.0) g/dl Hct 32.7 L (37.0-47.0) % MCV 103.5 H (80.0-100.0) fL MCH 33.2 (25.0-34.0) pg MCHC 32.1 (32.0-36.0) g/dL RDW Std Deviation 53.0 H (36.4-46.3) fL RDW Coeff of Vikas 13.8 (11.5-14.5) % Plt Count 270 (130-400) K/uL MPV 9.6 (9.4-12.4) fL Immature Gran % (Auto) 0.5 % Neut % (Auto) 77.7 % Lymph % (Auto) 9.4 % Morris % (Auto) 11.3 % Eos % (Auto) 0.5 % Baso % (Auto) 0.6 % Neut # (Auto) 6.11 (1.40-6.50) K/uL Lymph # (Auto) 0.74 L (1.20-3.40) K/uL Morris # (Auto) 0.89 H (0.11-0.59) K/uL Eos # (Auto) 0.04 (0.00-0.50) K/uL Baso # (Auto) 0.05 (0.00-0.20) K/uL Immature Gran # (Auto) 0.04 (0.01-0.20) K/uL VBG pH 7.30 L (7.36-7.41) VBG pCO2 69 H (38-50) mmHg VBG pO2 38 mmHg VBG HCO3 34 mmol/L VBG O2 Saturation < 60.0 % VBG Base Excess 5.3 mEq/L Sodium 136 (136-145) mmol/L Potassium 4.9 (3.5-5.1) mmol/L Chloride 94 L (98-107) mmol/L Carbon Dioxide 34 H (21-32) mmol/L Anion Gap 8 (3-11) BUN 26 H (6-23) mg/dl Creatinine 0.92 (0.6-1.2) mg/dl Est Cr Clr Drug Dosing 64.3 ml/min Est GFR ( Amer) 72.6 ml/min Est GFR (Non-Af Amer) 62.6 ml/min BUN/Creatinine Ratio 28.3 H (10-20) Glucose 214 H (70-99(Fasting)) mg/dl Calcium 10.9 H (8.6-10.3) mg/dl Phosphorus 5.4 H (2.5-4.9) mg/dl Magnesium 1.7 (1.7-2.4) mg/dl Total Bilirubin 0.4 (0.2-1.0) mg/dl AST 20 (13-39) U/L ALT 19 (7-52) U/L Alkaline Phosphatase 65 (34-104) U/L Total Creatine Kinase 130 (26-192) U/L Troponin I High Sens 12.6 (0-14) pg/ml B-Natriuretic Peptide 31 (0-100) pg/ml Total Protein 7.2 (6.0-8.3) gm/dl Albumin 4.0 (3.4-5.0) gm/dl Globulin 3.2 (2.5-4.0) gm/dl Albumin/Globulin Ratio 1.3 (0.9-2) Lipase 29 (11-82) U/L Procalcitonin < 0.05 (0-0.5) ng/ml Random Cortisol 22.50 mcg/dl Adenovirus (PCR) Not Detected (NotDetected) B. pertussis DNA (PCR) Not Detected (NotDetected) B.parapertussis DNA PCR Not Detected (NotDetected) C. pneumoniae DNA (PCR) Not Detected (NotDetected) Coronavirus OC43 (PCR) Not Detected (NotDetected) Coronavirus HKU1 (PCR) Not Detected (NotDetected) Coronavirus 229E (PCR) Not Detected (NotDetected) SARS-CoV-2 (PCR) Not Detected (NotDetected) Coronavirus NL63 (PCR) Not Detected (NotDetected) Human Metapneumovir PCR Not Detected (NotDetected) Influenza Type A (PCR) Not Detected (NotDetected) Influenza Type B (PCR) Not Detected (NotDetected) M. pneumoniae (PCR) Not Detected (NotDetected) Parainfluenza 1 (PCR) Not Detected (NotDetected) Parainfluenza 2 (PCR) Not Detected (NotDetected) Parainfluenza 3 (PCR) Not Detected (NotDetected) Parainfluenza 4 (PCR) Not Detected (NotDetected) RSV (PCR) Not Detected (NotDetected) Entero/Rhino (PCR) Not Detected (NotDetected) Administered Medications Insulin Aspart (Insulin Aspart Per Unit Charge) 0 units SC ACHS [facility] Stop: 09/06/23 16:29 Last Admin: 08/07/23 16:33 Dose: Not Given Documented By: HYACINTH Co-signed By: AB Sodium Chloride (Sodium Chlor 7% 4 Ml Neb) 4 ml NEB BIDR [facility] Stop: 09/06/23 18:59 Last Admin: 08/07/23 19:09 Dose: 4 ml Documented By: MA Discontinued Medications Albuterol (Albut/Ipratrop 3mg/0.5mg Neb 3 Ml Vial) 3 ml NEB NOW STA; Protocol Stop: 08/07/23 14:18 Last Admin: 08/07/23 14:46 Dose: 3 ml Documented By: KWADWO Lactated Ringer's (Lr) 1,000 mls @ 80 mls/hr IV .[id number] [facility] Stop: 08/08/23 04:29 Last Admin: 08/07/23 16:21 Dose: Not Given Documented By: HYACINTH Acetaminophen (Ofirmev) 1,000 mg in 100 mls @ 400 mls/hr IV NOW STA Stop: 08/07/23 16:18 Last Infusion: 08/07/23 16:44 Dose: Infused Documented By: Admin: 08/07/23 16:26 Dose: 400 mls/hr Documented By: HYACINTH Methylprednisolone (Methylprednisolone 125 Mg/2 Ml Vial) 125 mg IV NOW STA Stop: 08/07/23 14:18 Last Admin: 08/07/23 15:13 Dose: 125 mg Documented By: HYACINTH Imaging Data Radiologist's Impression: Chest X-Ray 08/07/23 12:06 XR chest 1V portable HISTORY: 72 years-old Female sob acute shortness of breath COMPARISON: 06/02/2022 TECHNIQUE: AP view of the chest FINDINGS: Cardiac silhouette is enlarged. Left greater than right mixed interstitial and alveolar opacities. Possible trace pleural effusions. No pneumothorax. Chronic left shoulder deformity. Right shoulder arthroplasty. IMPRESSION: Cardiomegaly with left greater than right mixed interstitial and alveolar opacities suggestive of asymmetric pulmonary edema. Multifocal pneumonia could appear similarly. ACT 112: Negative or not required by law. The above report was generated using voice recognition software. It may contain grammatical, syntax or spelling errors. Electronically signed by: Dre Burleson M.D. 08/07/2023 1:18 PM Knee X-Ray 08/07/23 12:06 XR knee LT 1 or 2V routine CLINICAL HISTORY: pain fall. Left knee pain. COMPARISON STUDY: Left femur 01/04/2016. FINDINGS: Mild chondrocalcinosis within the left knee. Mild cartilage space narrowing within the medial compartment consistent with degenerative change. No acute fracture or dislocation. Mild vascular calcifications are noted. No knee effusion. IMPRESSION: No fracture or dislocation within the left knee. ACT 112: Negative or not required by law. Electronically signed by: Mauri Guzman M.D. 08/07/2023 1:20 PM Knee X-Ray 08/07/23 12:06 XR knee RT 1 or 2V routine CLINICAL HISTORY: Right knee pain following fall. COMPARISON: None FINDINGS: There is an acute oblique nondisplaced fracture within the proximal shaft of the right fibula. No additional fractures are present. There is a small right knee joint effusion. Chondrocalcinosis within the menisci are present. There are mild degenerative changes within the right knee. IMPRESSION: 1. Acute oblique nondisplaced fracture within the proximal shaft of the right fibula. Right ankle radiographs could be obtained to exclude a Maisonneuve fracture. 2. No additional fractures. Small right knee joint effusion. ACT 112: Negative or not required by law. Electronically signed by: Alan Sanches M.D. 08/07/2023 1:19 PM Pelvis X-Ray 08/07/23 12:06 XR pelvis 1-2V routine CLINICAL HISTORY: pain fall. Pelvic pain. COMPARISON STUDY: Pelvis 01/09/2021. FINDINGS: No fracture or dislocation within the pelvis or hips. The sacrum is intact. 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 Bowel contents inferior to the pelvis consistent the patient's known large ventral hernia. IMPRESSION: 1. No fracture or dislocation within the pelvis or hips. 2. Large ventral hernia again noted. ACT 112: Negative or not required by law. Electronically signed by: Mauri Guzman M.D. 08/07/2023 1:22 PM Ankle X-Ray 08/07/23 14:18 XR ankle RT min 3V routine CLINICAL HISTORY: Right ankle pain. Fall. COMPARISON STUDY: None. FINDINGS: Nondisplaced distal right fibular fracture. No dislocation. Soft tissue swelling within the right ankle. Small well-corticated ossific density at the medial malleolus consistent with an old avulsion injury. There is mild to moderate osteoarthritis of the tibiotalar joint. Vascular calcifications are noted. Plantar and posterior calcaneal spurs. IMPRESSION: Nondisplaced distal right fibular fracture. ACT 112: Negative or not required by law. Electronically signed by: Mauri Guzman M.D. 08/07/2023 3:17 PM Discharge Plan Visit Data Chief Complaint: Congestion Stated Complaint: FALL, COUGH, CONGESTION, WEAKNESS, HYPOXIA ED Provider: Aidan Juarez Discharge Problem: Acute on chronic respiratory failure with hypoxia and hypercapnia, COPD exacerbation, Closed right fibular fracture Patient Disposition: Admitted As Inpatient Discharge Instructions Interventions: ED Discharge Assessment Last Done: 08/07/23 17:25 Discharge Problem: Closed right fibular fracture Qualifiers: Encounter type: initial encounter Fibula location: proximal Fracture morphology: unspecified fracture morphology Qualified Code(s): S82.831A - Other fracture of upper and lower end of right fibula, initial encounter for closed fracture
[2023-08-07 11:51] LABS: Basophils # (auto) 0.05 K/uL (0.00-0.20); Basophils % (auto) 0.6 %; Eosinophils # (auto) 0.04 K/uL (0.00-0.50); Eosinophils % (auto) 0.5 %; Hematocrit (blood only) 32.7 % (37.0-47.0); Hemoglobin 10.5 g/dl (12.0-16.0); Immature Granulocytes # (auto) 0.04 K/uL (0.01-0.20); Immature Granulocytes % (auto) 0.5 %; Lymphocytes # (auto) 0.74 K/uL (1.20-3.40); Lymphocytes % (auto) 9.4 %; Mean Corpuscular Hemoglobin 33.2 pg (25.0-34.0); Mean Corpuscular Hgb Conc 32.1 g/dL (32.0-36.0); Mean Corpuscular Volume 103.5 fL (80.0-100.0); Mean Platelet Volume 9.6 fL (9.4-12.4); Monocytes # (auto) 0.89 K/uL (0.11-0.59); Monocytes % (auto) 11.3 %; Neutrophils # (auto) 6.11 K/uL (1.40-6.50); Neutrophils % (auto) 77.7 %; Platelet Count 270 K/uL (130-400); RDW Coefficient of Variation 13.8 % (11.5-14.5); Red Blood Count 3.16 M/uL (4.20-5.40); White Blood Count 7.87 K/ul (4.8-10.8)
[2023-08-07 12:08] LABS: Albumin Globulin Ratio 1.3 (0.9-2); BUN Creatinine Ratio 28.3 (10-20); Bilirubin,Total 0.4 mg/dl (0.2-1.0); Calcium 10.9 mg/dl (8.6-10.3); Creatinine Clr Calc Pharmacy 64.3 ml/min; Est GFR (African American) 72.6 ml/min; Est GFR (Non-African American) 62.6 ml/min; Globulin 3.2 gm/dl (2.5-4.0); Magnesium 1.7 mg/dl (1.7-2.4); Potassium 4.9 mmol/L (3.5-5.1); Total Protein 7.2 gm/dl (6.0-8.3)
[2023-08-07 12:14] LABS: Troponin I High Sensitivity 12.6 pg/ml (0-14)
[2023-08-07 12:47] LABS: Adenovirus PCR Not Detected (NotDetected); Bordetella parapertussis PCR Not Detected (NotDetected); Bordetella pertussis PCR Not Detected (NotDetected); Chlamydia pneumoniae PCR Not Detected (NotDetected); Coronavirus 229E PCR Not Detected (NotDetected); Coronavirus CoV-2 (COVID19)PCR Not Detected (NotDetected); Coronavirus HKU1 PCR Not Detected (NotDetected); Coronavirus NL63 PCR Not Detected (NotDetected); Coronavirus OC43PCR Not Detected (NotDetected); Human Metapneumovirus PCR Not Detected (NotDetected); Influenza A PCR Not Detected (NotDetected); Influenza B PCR Not Detected (NotDetected); Mycoplasma pneumoniae PCR Not Detected (NotDetected); Parainfluenza Virus 1 PCR Not Detected (NotDetected); Parainfluenza Virus 2 PCR Not Detected (NotDetected); Parainfluenza Virus 3 PCR Not Detected (NotDetected); Parainfluenza Virus 4 PCR Not Detected (NotDetected); Respiratory Syncytial VirusPCR Not Detected (NotDetected); Rhinovirus/Enterovirus PCR Not Detected (NotDetected)
[2023-08-07 12:52] LABS: Phosphorus 5.4 mg/dl (2.5-4.9)
--- NOTE | 2023-08-07 13:19 | XRay Report ---
XR chest 1V portable HISTORY: 72 years-old Female sob acute shortness of breath COMPARISON: 06/02/2022 TECHNIQUE: AP view of the chest FINDINGS: Cardiac silhouette is enlarged. Left greater than right mixed interstitial and alveolar opacities. Po ssible trace pleural effusions. No pneumothorax. Chronic left shoulder deformity. Right shoulder arth roplasty. IMPRESSION: Cardiomegaly with left greater than right mixed interstitial and alveolar opacities sugge stive of asymmetric pulmonary edema. Multifocal pneumonia could appear similarly. ACT 112: Negative or not required by law. The above report was generated using voice recognition software. It may contain grammatical, syntax o r spelling errors. Electronically signed by: Dre Burleson M.D. 08/07/2023 1:18 PM
--- NOTE | 2023-08-07 13:21 | XRay Report ---
XR knee LT 1 or 2V routine CLINICAL HISTORY: pain fall. Left knee pain. COMPARISON STUDY: Left femur 01/04/2016. FINDINGS: Mild chondrocalcinosis within the left knee. Mild cartilage space narrowing within the medi al compartment consistent with degenerative change. No acute fracture or dislocation. Mild vascular c alcifications are noted. No knee effusion. IMPRESSION: No fracture or dislocation within the left knee. ACT 112: Negative or not required by law. Electronically signed by: Mauri Guzman M.D. 08/07/2023 1:20 PM
--- NOTE | 2023-08-07 13:21 | XRay Report ---
XR knee RT 1 or 2V routine CLINICAL HISTORY: Right knee pain following fall. COMPARISON: None FINDINGS: There is an acute oblique nondisplaced fracture within the proximal shaft of the right fib natasha. No additional fractures are present. There is a small right knee joint effusion. Chondrocalcinos is within the menisci are present. There are mild degenerative changes within the right knee. IMPRESSION: 1. Acute oblique nondisplaced fracture within the proximal shaft of the right fibula. Right ankle rad iographs could be obtained to exclude a Maisonneuve fracture. 2. No additional fractures. Small right knee joint effusion. ACT 112: Negative or not required by law. Electronically signed by: Alan Sanches M.D. 08/07/2023 1:19 PM
--- NOTE | 2023-08-07 13:23 | XRay Report ---
XR pelvis 1-2V routine CLINICAL HISTORY: pain fall. Pelvic pain. COMPARISON STUDY: Pelvis 01/09/2021. FINDINGS: No fracture or dislocation within the pelvis or hips. The sacrum is intact. Mild to moderat e osteoarthritis again noted within the bilateral hips. Bowel contents inferior to the pelvis consist ent the patient's known large ventral hernia. IMPRESSION: 1. No fracture or dislocation within the pelvis or hips. 2. Large ventral hernia again noted. ACT 112: Negative or not required by law. Electronically signed by: Mauri Guzman M.D. 08/07/2023 1:22 PM
[2023-08-07 13:25] LABS: Base Excess VBG 5.3 mEq/L; HCO3 VBG 34 mmol/L; Oxygen Saturation VBG < 60.0 %; PCO2 VBG 69 mmHg (38-50); PO2 VBG 38 mmHg
--- NOTE | 2023-08-07 14:27 | Electrocardiogram Report ---
Test Reason : Blood Pressure : / mmHG Vent. Rate : 085 BPM Atrial Rate : 085 BPM P-R Int : 220 ms QRS Dur : 140 ms QT Int : 398 ms P-R-T Axes : 052 122 002 degrees QTc Int : 473 ms Sinus rhythm with 1st degree A-V block Right bundle branch block Abnormal ECG When compared with ECG of 23-MAY-2022 13:25, No significant change was found Confirmed by Amado Kramer ([id number]) on 08/07/2023 2:27:03 PM Referred By: Confirmed By:Amado Kramer
--- NOTE | 2023-08-07 14:29 | History & Physical Report ---
Date of Service August 07, 2023 Assessment & Plan (1) Fatigue: Plan: -Admit to the PCU on tele and pusle oximetry -Currently stable on CPAP at 12/5 with 40% FiO2 and more alert than initial arrival -Presented to the ED today after sustaining a fall while attempting to get out of bed -Patient had no prior symptoms to the fall to suggest other etiology, did no hit her head or lose consciousness, fell as her legs were too weak -At this time she is fatigued but otherwise neurologically intact -pCO2 on arrival is elevated at 69 -At this time it appears that the etiology of the patient's increased fatigue causing falls is due to polypharmacy exacerbating her known CARLA and chronic hypoxic and hypercapnic respiratory failure -Patient has been non-compliant with HS CPAP/Bipap per her daughter, normally takes 150 mg HS Seroquel and 0.5 mg Ativan for sleep >Her dose of Ativan was recent increased to 1mg HS approximately 1 week ago -No obvious sign on infection at this time as she is without leukocytosis, procal is negative, CXR actually appears slightly improved compared to last admission -She is without fever, GI symptoms, or sign of skin infection -We will obtain UA to monitor for infection, but at this time we will hold anti biotics -PT/OT consults ordered -Will give 1L of LR as she appears dehydrated on exam -SQ lovenox for DVT PPX -NPO while on CPAP/BIPAP -AM CBC, BMP, mag (2) Chronic respiratory failure with hypoxia and hypercapnia: Plan: -Patient is chronically on 5L NC -Per documentation on last admission, was also prescribed HS Bipap with 2L O2 -She was noted to be stable on her baseline 5L NC but was fatigued with increased pCO2 so was placed on CPAP in the ED -Currently tolerating CPAP well with increased mentation -We will continue CPAP for the next few hours then repeat a VBG this afternoon, if improving she can have a break -Will ensure she uses HS Bipap while admitted and continue her chronic 5L NC during the day -Continue aggressive pulmonary hygiene per left lung atelectasis plan -Titrate O2 to keep SpO2 between 89-92% (3) Right fibular fracture: Plan: -Patient noted to have a non-displaced right distal tibia fracture -Will consult orthopedic surgery -Bedrest for now -Start pain control with prn tylenol, can consider strong analgesics when she is more alert (4) Atelectasis of left lung: Plan: -Patient noted to have significant atelectasis of the left lung -However, this is improved compared to her last admission for significant mucus plugging -Will start aggressive pulm hygiene with chest vest, BID hypertonic saline, incentive spirometry, and flutter therapy -Will try and obtain sputum culture with gram stain -Continue to monitor on tele and pulse oximetry (5) Uncontrolled type 2 diabetes mellitus with hyperosmolarity, without long- term current use of insulin: Plan: -Hold metformin and Januvia -Monitor BSG q6h while NPO, goal is 110-160 with recent steroids in the ED -Start CF of 50 q6h -Normally takes 35 units HS Lantus, will adjust to 10 units BID for now -Adjust regimen as needed (6) Chronic right-sided congestive heart failure: Plan: -Currently euvolemic to mildly dry on exam -Hold PO lasix for now -Will give 1L Light LR on admission -Monitor volume status closely and restart PO lasix when closer to euvolemia (7) Hypertension: Plan: -Stable -Continue lisinopril Plan The patient was discussed with Dr. Grimes at the time of the admission History of Present Illness Chief Complaint: Generalized weakness, fall Primary Care Provider: Caryn Avalos MD Traci is a 72 year old female with a PMH significant for cor pulmonale, NSTEMI, subdural hematoma, subarachnoid hemorrhage, compression fractures, uncontrolled type 2 diabetes mellitus, HFpEF, pressure ulcers, COPD, and chronic hypoxic respiratory failure on baseline 4-5L O2 via NC who presented to the [facility] ED per EMS on 08/07/23 with complaints of increased weakness and a ground level fall. She was noted to be stable on arrival. Labs were remarkable for a calcium of 10.8, phos of 5.4, and full respiratory biofire negative. Chest xray was read as "Cardiomegaly with left greater than right mixed interstitial and alveolar opacities suggestive of asymmetric pulmonary edema. Multifocal pneumonia could appear similarly. ". Xray of the right knee was read as "1. Acute oblique nondisplaced fracture within the proximal shaft of the right fibula. Right ankle radiographs could be obtained to exclude a Maisonneuve fracture. 2. No additional fractures. Small right knee joint effusion.". Xray of the left knee and pelvis were negative for acute findings. Prior to admission the patient was given 125 mg IV solu-medrol and an albuterol treatment. At the time of the exam the patient was sitting in bed in no acute distress. She was recently placed on CPAP at 12/5 and 40% FiO2 and was tolerating it well. She is fatigued and responds appropriately to questions. She states that she fell while trying to get out of bed this am. She states that she has been weak and her legs gave out when trying to get out of bed this am. She denies losing consciousness or hitting her head. Currently, her only complaint is her RLE pain, she denies all other complaints at this time including fever, chills, chest pain, feeling SOB, abd pain, nausea, vomiting, diarrhea, dysuria, hematuria, melena, and increased LE swelling. We discussed code status and she confirms that she wishes to be a DNR/DNI. Her daughter would make medical decisions for her if she could not make them herself. I called and spoke to the Patient's Daughter, Raisa Knapp ([phone]), to obtain further history. She explains that the patient completed a 10 day course of Levaquin and 10 mg Prednisone prescribed on 07/20/23. Her Daughter states that the patient completed the course of both and was doing well. She has not been compliant with HS CPAP/Bipap which was prescribed during her last admission as she could not tolerate the mask. In regards to the patient's prescriptions for Seroquel and Ativan. Her daughter explains that she has been using both to help her sleep, for years. Recently, her dose of ativan was increased from 0.5 mg to 1mg HS, on top of the 150 mg PO Seroquel she normally takes. She states that she checks on he mother multiple times a week and helps to bathe her. She denies the patient having any recent bed sores or ulcers. Please refer to Dr. Grimes's attestation for any changes to the treatment plan Allergies Allergy/AdvReac Type Severity Reaction Status Date / Time latex Allergy Severe 2ND DEGREE Verified 08/25/21 07:43 BURN FROM BANDAGE adhesive Allergy Intermediate RASH Verified 08/25/21 07:43 Home Medications Medication Instructions Recorded Confirmed Type aspirin 81 mg tablet,delayed 0 mg PO QPM 10/30/18 08/07/23 History release (Malcom Low Dose Aspirin) atorvastatin 80 mg tablet (Lipitor) 80 mg PO HS 10/30/18 08/07/23 History gabapentin 300 mg capsule 300 mg PO TID 10/30/18 08/07/23 History sitagliptin phosphate 100 mg 100 mg PO QPM 01/08/21 08/07/23 History tablet (Januvia) insulin glargine 100 unit/mL (3 35 unit SC HS 08/25/21 08/07/23 History mL) subcutaneous pen (Lantus Solostar U-100 Insulin) lisinopril 5 mg tablet 5 mg PO DAILY 12/13/21 08/07/23 History metformin 850 mg tablet 850 mg PO BID 12/13/21 08/07/23 History quetiapine 100 mg tablet 150 mg PO HS 12/13/21 08/07/23 History furosemide 40 mg tablet (Lasix) 0 mg PO DAILY 08/07/23 08/07/23 History potassium chloride 10 mEq 0 meq PO DAILY 08/07/23 08/07/23 History tablet,extended release Past Med/Surg History Medical History Anxiety Chronic obstructive pulmonary disease Complicated UTI (urinary tract infection) Depression Diabetes mellitus, type 2 NIDDM Glaucoma WELL CONTROLLED H/O defect LEFT ARM Hyperlipidemia Hypertension Hyponatremia Palliative care encounter Peripheral neuropathy BILATERAL FEET Shortness of breath Temporomandibular joint disorder NO PROBLEMS RECENTLY. Surgical History History of appendectomy History of cholecystectomy History of colonoscopy History of incision and drainage UMBILICAL ABSCESS History of total shoulder replacement RIGHT Hx of umbilical hernia repair X4 -- WEARS SUPPORT BAND DAILY S/P JALIL-BSO S/P tonsillectomy and adenoidectomy Family History Mother Diabetes mellitus, type 2 Aunt Diabetes mellitus, type 2 Social History Smoking Status: Current every day smoker Tobacco Type: Cigarettes Cigarettes Per Day: quit 1 year ago; Second Hand Exposure: No; Do You Dip or Chew Tobacco: No; Hx Alcohol Use: No Hx Substance Use: No Preferred Language: Bhutanese Communication Ability: Impaired Hydrology Teacher Required: No Beliefs That Will Affect Care: None marital status: Current Living Situation: Spouse current occupational status: retired Feels Safe at Home: Yes Assistive Devices: Oxygen - Continuous, Walker and Wheelchair Physical Exam Physical Exam: Physical Exam: General: In no acute distress, stated age, chronically ill appearing but non- toxic HEENT: Normocephalic, atraumatic, no scleral icterus, pupils around round, symmetrical, and reactive to light, Bipap/CPAP mask is in place and without signs of air leak, dry mucus membranes, trachea midline, no thyromegaly Chest/Pulm: No respiratory distress, symmetrical chest expansion, decreased breath sounds in left lung and right lower lung with some expiratory wheezing in the right upper lung rodgers Cardiac: RRR, no murmurs noted Abdomen: Negative for ascites and bruising, normoactive bowel sounds, soft, non-tender to palpation throughout Musculoskeletal: Patient with chronic immobility of the RUE due to previous humerus fractures with non-union, no acute trauma of the head, neck, BL upper extremities, and BL pelvis, patient with swelling and bruising over the right lateral lower extremity at the site of her fibula fracture, otherwise no acute signs of trauma Extremities: Radial, dorsalis pedis, and posterior tibial pulses are intact and symmetrical, no edema noted in the BL LE's Skin: As described above Neuro: Alert and oriented to person, place, month, year, no focal defects, no tremors noted Psych: fatigued but alert, No acute distress, calm and cooperative during the exam Results & Data Results & Data Vital Signs (Past 12 Hours) Vital Signs Temp Pulse Pulse Resp BP BP Pulse Ox 08/07/23 14:00 77 13 116/58 L 91 08/07/23 12:36 79 18 113/69 92 08/07/23 12:07 91 H 08/07/23 11:32 92 H 18 79 L 08/07/23 11:17 36.8 C 20 92 08/07/23 11:17 99 H 18 138/68 90 O2 Del Method O2 Flow Rate 08/07/23 14:00 Nasal Cannula 5 08/07/23 12:36 Room Air 08/07/23 12:07 08/07/23 11:32 Room Air 08/07/23 11:17 Nasal Cannula 5 08/07/23 11:17 Nasal Cannula 5 Laboratory Results Abnormal lab results 08/07/23 08/07/23 Range/Units 11:33 13:14 RBC 3.16 L (4.20-5.40) M/uL Hgb 10.5 L (12.0-16.0) g/dl Hct 32.7 L (37.0-47.0) % MCV 103.5 H (80.0-100.0) fL RDW Std Deviation 53.0 H (36.4-46.3) fL Lymph # (Auto) 0.74 L (1.20-3.40) K/uL Elmore # (Auto) 0.89 H (0.11-0.59) K/uL VBG pH 7.30 L (7.36-7.41) VBG pCO2 69 H (38-50) mmHg Chloride 94 L (98-107) mmol/L Carbon Dioxide 34 H (21-32) mmol/L BUN 26 H (6-23) mg/dl BUN/Creatinine Ratio 28.3 H (10-20) Glucose 214 H (70-99(Fasting)) mg/dl Calcium 10.9 H (8.6-10.3) mg/dl Phosphorus 5.4 H (2.5-4.9) mg/dl Diagnostic Findings Chest X-Ray 08/07/23 12:06 XR chest 1V portable HISTORY: 72 years-old Female sob acute shortness of breath COMPARISON: 06/02/2022 TECHNIQUE: AP view of the chest FINDINGS: Cardiac silhouette is enlarged. Left greater than right mixed interstitial and alveolar opacities. Possible trace pleural effusions. No pneumothorax. Chronic left shoulder deformity. Right shoulder arthroplasty. IMPRESSION: Cardiomegaly with left greater than right mixed interstitial and alveolar opacities suggestive of asymmetric pulmonary edema. Multifocal pneumonia could appear similarly. ACT 112: Negative or not required by law. The above report was generated using voice recognition software. It may contain grammatical, syntax or spelling errors. Electronically signed by: Dre Burleson M.D. 08/07/2023 1:18 PM Knee X-Ray 08/07/23 12:06 XR knee LT 1 or 2V routine CLINICAL HISTORY: pain fall. Left knee pain. COMPARISON STUDY: Left femur 01/04/2016. FINDINGS: Mild chondrocalcinosis within the left knee. Mild cartilage space narrowing within the medial compartment consistent with degenerative change. No acute fracture or dislocation. Mild vascular calcifications are noted. No knee effusion. IMPRESSION: No fracture or dislocation within the left knee. ACT 112: Negative or not required by law. Electronically signed by: Mauri Guzman M.D. 08/07/2023 1:20 PM Knee X-Ray 08/07/23 12:06 XR knee RT 1 or 2V routine CLINICAL HISTORY: Right knee pain following fall. COMPARISON: None FINDINGS: There is an acute oblique nondisplaced fracture within the proximal shaft of the right fibula. No additional fractures are present. There is a small right knee joint effusion. Chondrocalcinosis within the menisci are present. There are mild degenerative changes within the right knee. IMPRESSION: 1. Acute oblique nondisplaced fracture within the proximal shaft of the right fibula. Right ankle radiographs could be obtained to exclude a Maisonneuve fracture. 2. No additional fractures. Small right knee joint effusion. ACT 112: Negative or not required by law. Electronically signed by: Alan Sanches M.D. 08/07/2023 1:19 PM Pelvis X-Ray 08/07/23 12:06 XR pelvis 1-2V routine CLINICAL HISTORY: pain fall. Pelvic pain. COMPARISON STUDY: Pelvis 01/09/2021. FINDINGS: No fracture or dislocation within the pelvis or hips. The sacrum is intact. 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 Bowel contents inferior to the pelvis consistent the patient's known large ventral hernia. IMPRESSION: 1. No fracture or dislocation within the pelvis or hips. 2. Large ventral hernia again noted. ACT 112: Negative or not required by law. Electronically signed by: Mauri Guzman M.D. 08/07/2023 1:22 PM Ankle X-Ray 08/07/23 14:18 XR ankle RT min 3V routine CLINICAL HISTORY: Right ankle pain. Fall. COMPARISON STUDY: None. FINDINGS: Nondisplaced distal right fibular fracture. No dislocation. Soft tissue swelling within the right ankle. Small well-corticated ossific density at the medial malleolus consistent with an old avulsion injury. There is mild to moderate osteoarthritis of the tibiotalar joint. Vascular calcifications are noted. Plantar and posterior calcaneal spurs. IMPRESSION: Nondisplaced distal right fibular fracture. ACT 112: Negative or not required by law. Electronically signed by: Mauri Guzman M.D. 08/07/2023 3:17 PM ECG Additional Comments: Sinus rhythm with 1st degree A-V block Right bundle branch block Abnormal ECG When compared with ECG of 23-MAY-2022 13:25, No significant change was found Confirmed by Amado Kramer ([id number]) on 08/07/2023 2:27:03 PM Code Status & VTE Plan Code Status DNR/DNI VTE Prophylaxis Plan VTE Prophylaxis will be ordered: Yes Supervising Physician Co-Signing Physician Notes Patient seen and examined, chart reviewed, case discussed with Ferdinand Lopez PA-C and I agree with the assessment and plan as above except as otherwise noted Labs and images reviewed Traci is a 72-year-old female with a past medical history of COPD, CARLA, CAD/NSTE TN, subdural/subarachnoid hemorrhage, DM 2, cor pulmonale, CHF with preserved ejection fraction, SBO, and chronic 4-5 L of home oxygen baseline who presented to the ER with a ground-level fall without head strike or loss of consciousness he was found to have right fibular fracture on exam and is pending follow-up imaging of the right ankle. Chest x-ray shows cardiomegaly with mixed interstitial and alveolar opacities suspicious for asymmetric pulmonary edema versus multifocal pneumonia, this appears somewhat improved from prior and patient is with a normal white count, normal troponin, and normal BNP. She is recommended for admission for treatment of suspected mild pulmonary edema versus COPD exacerbation and orthopedic consultation for fibular fracture. On assessment patient is with expiratory wheezing but without rales and VBG 7 point /38/34 consistent with mild respiratory acidosis. Patient was treated in the ER with a dose of Solu-Medrol and albuterol nebulizer with improved clinical appearance. PG Care Time/CCT Total # of Minutes Spent Total Time Spent with Patient: Total time spent is greater than 50% in coordination of care (as documented) at patient's floor/unit and/or counseling patient: [place] [address] INT INP/OBS CARE 3/75MIN Patient Type Established History Comprehensive Exam Comprehensive Medical Decision Making High Complexity Diagnoses Fatigue R53.83 Chronic respiratory failure with hypoxia and hypercapnia J96.11; J96.12 Right fibular fracture S82.401A Atelectasis of left lung J98.11 Uncontrolled type 2 diabetes mellitus with hyperosmolarity, without long-term current use of insulin E11.00 Chronic right-sided congestive heart failure I50.812 Essential hypertension I10 Hypertension type: essential hypertension (7) Hypertension Hypertension type: essential hypertension Qualified Code(s): I10 - Essential (primary) hypertension
[2023-08-07] MEDS ORDERED: GLUCAGON FOR INJ 1 MG VIAL SQ PRN (14:38)
[2023-08-07] MEDS ORDERED: DEXTROSE 50% 50 ML SYRINGE IV PRN (14:38)
[2023-08-07] MEDS ORDERED: GLUCOSE 40% GEL 15 GM TUBE PO PRN (14:38)
[2023-08-07] MEDS ORDERED: GLUCOSE 10 TAB/TUBE PO PRN (14:38)
[2023-08-07] MEDS ORDERED: CARBOHYDRATES FOR HYPOGLYCEMIA PO PRN (14:38)
[2023-08-07] MEDS: ALBUT/IPRATROP 3MG/0.5MG NEB 3 ML VIAL NEB STA (14:46)
[2023-08-07] MEDS: methylPREDNISolone 125 MG/2 ML VIAL IV STA (15:13)
--- NOTE | 2023-08-07 15:18 | XRay Report ---
XR ankle RT min 3V routine CLINICAL HISTORY: Right ankle pain. Fall. COMPARISON STUDY: None. FINDINGS: Nondisplaced distal right fibular fracture. No dislocation. Soft tissue swelling within the right ankle. Small well-corticated ossific density at the medial malleolus consistent with an old av ulsion injury. There is mild to moderate osteoarthritis of the tibiotalar joint. Vascular calcificati ons are noted. Plantar and posterior calcaneal spurs. IMPRESSION: Nondisplaced distal right fibular fracture. ACT 112: Negative or not required by law. Electronically signed by: Mauri Guzman M.D. 08/07/2023 3:17 PM
[2023-08-07] MEDS: LACTATED RINGER'S 1,000 ML IV SCH (16:21)
[2023-08-07] MEDS: ACETAMINOPHEN 1,000 MG/100 ML VIAL IV STA (16:26)
[2023-08-07] MEDS: INSULIN ASPART PER UNIT CHARGE SC SCH (16:33)
--- NOTE | 2023-08-07 17:07 | Orthopedic Consultation ---
Date of Consultation August 07, 2023 Assessment & Plan (1) Right fibular fracture: AP pelvis AP and lateral of both knees and 3 views of the right ankle are reviewed. The AP views of the pelvis show no gross fracture however the right hip was not well-visualized and there are no orthogonal views. The knee x-rays are negative with the exception of a nondisplaced proximal right fibular fracture. The ankle x-rays on the right show a nondisplaced fracture at the level of the ankle mortise. There is no arthritis or widening of the medial clear space and no obvious medial or posterior fracture. Some vascular calcifications and heel spurring's are noted. She is placed into a posterior splint with U stirrup on the right for the nondisplaced fracture. Abundantly padded ankle at neutral. Nonweightbearing on the right ankle. If her mental status improves we can reassess for further injury. Elevate and ice the right ankle. At this time surgery is not necessary. She will need DVT prophylaxis. We will need to obtain AP and lateral x-rays of both hips to ensure she has no injury there. History of Present Illness History of Present Illness Traci is 72. She is currently on BiPAP due to respiratory failure. Historical information is gathered from her chart. Apparently she fell this morning injuring her right leg. Allergies Allergy/AdvReac Type Severity Reaction Status Date / Time latex Allergy Severe 2ND DEGREE Verified 08/25/21 07:43 BURN FROM BANDAGE adhesive Allergy Intermediate RASH Verified 08/25/21 07:43 Home Medications Medication Instructions Recorded Confirmed Type aspirin 81 mg tablet,delayed 0 mg PO QPM 10/30/18 08/07/23 History release (Malcom Low Dose Aspirin) atorvastatin 80 mg tablet (Lipitor) 80 mg PO HS 10/30/18 08/07/23 History gabapentin 300 mg capsule 300 mg PO TID 10/30/18 08/07/23 History sitagliptin phosphate 100 mg 100 mg PO QPM 01/08/21 08/07/23 History tablet (Januvia) insulin glargine 100 unit/mL (3 35 unit SC HS 08/25/21 08/07/23 History mL) subcutaneous pen (Lantus Solostar U-100 Insulin) lisinopril 5 mg tablet 5 mg PO DAILY 12/13/21 08/07/23 History metformin 850 mg tablet 850 mg PO BID 12/13/21 08/07/23 History quetiapine 100 mg tablet 150 mg PO HS 12/13/21 08/07/23 History furosemide 40 mg tablet (Lasix) 0 mg PO DAILY 08/07/23 08/07/23 History potassium chloride 10 mEq 0 meq PO DAILY 08/07/23 08/07/23 History tablet,extended release Patient History Medical History Shortness of breath Palliative care encounter Hyponatremia Complicated UTI (urinary tract infection) H/O defect LEFT ARM Diabetes mellitus, type 2 NIDDM Temporomandibular joint disorder NO PROBLEMS RECENTLY. Glaucoma WELL CONTROLLED Anxiety Depression Peripheral neuropathy BILATERAL FEET Hyperlipidemia Hypertension Chronic obstructive pulmonary disease Surgical History S/P JALIL-BSO History of total shoulder replacement RIGHT History of incision and drainage UMBILICAL ABSCESS Hx of umbilical hernia repair X4 -- WEARS SUPPORT BAND DAILY History of colonoscopy History of cholecystectomy History of appendectomy S/P tonsillectomy and adenoidectomy Family History Mother Diabetes mellitus, type 2 Aunt Diabetes mellitus, type 2 Social History Smoking Status: Current every day smoker Tobacco Type: Cigarettes Cigarettes Per Day: quit 1 year ago; Second Hand Exposure: No; Do You Dip or Chew Tobacco: No; Hx Alcohol Use: No Hx Substance Use: No Preferred Language: Indian Communication Ability: Impaired Sourcing Intern Required: No Beliefs That Will Affect Care: None marital status: Current Living Situation: Spouse current occupational status: retired Feels Safe at Home: Yes Assistive Devices: Oxygen - Continuous, Walker and Wheelchair Physical Exam Physical Exam: There is slight pinkness just above the ankle bilaterally. No bruising is noted. Logrolling causes no pain in either hip. She does exhibit pain behaviors grimacing and making noises when she experiences pain. There is no effusion in either knee and there is some mild tenderness apparently of the left knee. Cruciates and collaterals are grossly intact with both knees. She has good hip flexion bilaterally with no pain on rotatory movements. She has knee motion 0-90. The left thigh leg and ankle are nontender. She wiggles her toes on command but does not comply with further exam such as moving her ankle li fting her leg or bending her knee. DP pulses are 1+ palpable bilaterally. Both feet are warm with capillary refill less than 2 seconds. Cannot assess sensation. PT pulses are not palpable. The right knee is not tender. Right leg nontender. Right foot nontender. The most significant area of tenderness is ankle area right side more lateral than medial. There is no gross deformity and no gross [id number] laxity. Skin is intact. No breakdown. Results & Data Vital Signs (Past 12 Hours) Vital Signs Temp Pulse Pulse Resp BP BP Pulse Ox 08/07/23 16:30 77 18 125/69 91 08/07/23 16:14 74 08/07/23 14:35 96 H 22 93 08/07/23 14:35 96 H 20 94 08/07/23 14:00 77 13 116/58 L 91 08/07/23 12:36 79 18 113/69 92 08/07/23 12:07 91 H 08/07/23 11:32 92 H 18 79 L 08/07/23 11:17 36.8 C 20 92 08/07/23 11:17 99 H 18 138/68 90 O2 Del Method O2 Flow Rate FiO2 08/07/23 16:30 BiPAP 08/07/23 16:14 08/07/23 14:35 40 08/07/23 14:35 Nasal Cannula 4 08/07/23 14:00 Nasal Cannula 5 08/07/23 12:36 Room Air 08/07/23 12:07 08/07/23 11:32 Room Air 08/07/23 11:17 Nasal Cannula 5 08/07/23 11:17 Nasal Cannula 5 Diagnostic Findings Laboratory Results WBC 7.87 K/ul (4.8-10.8) 08/07/23 11:33 RBC 3.16 M/uL (4.20-5.40) L 08/07/23 11:33 Hgb 10.5 g/dl (12.0-16.0) L 08/07/23 11:33 Hct 32.7 % (37.0-47.0) L 08/07/23 11:33 MCV 103.5 fL (80.0-100.0) H 08/07/23 11:33 MCH 33.2 pg (25.0-34.0) 08/07/23 11:33 MCHC 32.1 g/dL (32.0-36.0) 08/07/23 11:33 RDW Std Deviation 53.0 fL (36.4-46.3) H 08/07/23 11:33 RDW Coeff of Vikas 13.8 % (11.5-14.5) 08/07/23 11:33 Plt Count 270 K/uL (130-400) 08/07/23 11:33 MPV 9.6 fL (9.4-12.4) 08/07/23 11:33 Immature Gran % (Auto) 0.5 % 08/07/23 11:33 Neut % (Auto) 77.7 % 08/07/23 11:33 Lymph % (Auto) 9.4 % 08/07/23 11:33 [place] % (Auto) 11.3 % 08/07/23 11:33 Eos % (Auto) 0.5 % 08/07/23 11:33 Baso % (Auto) 0.6 % 08/07/23 11:33 Neut # (Auto) 6.11 K/uL (1.40-6.50) 08/07/23 11:33 Lymph # (Auto) 0.74 K/uL (1.20-3.40) L 08/07/23 11:33 [place] # (Auto) 0.89 K/uL (0.11-0.59) H 08/07/23 11:33 Eos # (Auto) 0.04 K/uL (0.00-0.50) 08/07/23 11:33 Baso # (Auto) 0.05 K/uL (0.00-0.20) 08/07/23 11:33 Immature Gran # (Auto) 0.04 K/uL (0.01-0.20) 08/07/23 11:33 VBG pH 7.30 (7.36-7.41) L 08/07/23 13:14 VBG pCO2 69 mmHg (38-50) H 08/07/23 13:14 VBG pO2 38 mmHg 08/07/23 13:14 VBG HCO3 34 mmol/L 08/07/23 13:14 VBG O2 Saturation < 60.0 % 08/07/23 13:14 VBG Base Excess 5.3 mEq/L 08/07/23 13:14 Sodium 136 mmol/L (136-145) 08/07/23 11:33 Potassium 4.9 mmol/L (3.5-5.1) 08/07/23 11:33 Chloride 94 mmol/L (98-107) L 08/07/23 11:33 Carbon Dioxide 34 mmol/L (21-32) H 08/07/23 11:33 Anion Gap 8 (3-11) 08/07/23 11:33 BUN 26 mg/dl (6-23) H 08/07/23 11:33 Creatinine 0.92 mg/dl (0.6-1.2) 08/07/23 11:33 Est Cr Clr Drug Dosing 64.3 ml/min 08/07/23 11:33 Est GFR ( Amer) 72.6 ml/min 08/07/23 11:33 Est GFR (Non-Af Amer) 62.6 ml/min 08/07/23 11:33 BUN/Creatinine Ratio 28.3 (10-20) H 08/07/23 11:33 Glucose 214 mg/dl (70-99(Fasting)) H 08/07/23 11:33 POC Glucose 193 mg/dl (70-99) H 08/07/23 16:29 Calcium 10.9 mg/dl (8.6-10.3) H 08/07/23 11:33 Phosphorus 5.4 mg/dl (2.5-4.9) H 08/07/23 11:33 Magnesium 1.7 mg/dl (1.7-2.4) 08/07/23 11:33 Total Bilirubin 0.4 mg/dl (0.2-1.0) 08/07/23 11:33 AST 20 U/L (13-39) 08/07/23 11:33 ALT 19 U/L (7-52) 08/07/23 11:33 Alkaline Phosphatase 65 U/L (34-104) 08/07/23 11:33 Total Creatine Kinase 130 U/L (26-192) 08/07/23 11:33 Troponin I High Sens 12.6 pg/ml (0-14) 08/07/23 11:33 B-Natriuretic Peptide 31 pg/ml (0-100) 08/07/23 11:33 Total Protein 7.2 gm/dl (6.0-8.3) 08/07/23 11:33 Albumin 4.0 gm/dl (3.4-5.0) 08/07/23 11:33 Globulin 3.2 gm/dl (2.5-4.0) 08/07/23 11:33 Albumin/Globulin Ratio 1.3 (0.9-2) 08/07/23 11:33 Lipase 29 U/L (11-82) 08/07/23 11:33 Procalcitonin < 0.05 ng/ml (0-0.5) 08/07/23 11:33 Adenovirus (PCR) Not Detected (NotDetected) 08/07/23 11:39 B. pertussis DNA (PCR) Not Detected (NotDetected) 08/07/23 11:39 B.parapertussis DNA PCR Not Detected (NotDetected) 08/07/23 11:39 C. pneumoniae DNA (PCR) Not Detected (NotDetected) 08/07/23 11:39 Coronavirus OC43 (PCR) Not Detected (NotDetected) 08/07/23 11:39 Coronavirus HKU1 (PCR) Not Detected (NotDetected) 08/07/23 11:39 Coronavirus 229E (PCR) Not Detected (NotDetected) 08/07/23 11:39 SARS-CoV-2 (PCR) Not Detected (NotDetected) 08/07/23 11:39 Coronavirus NL63 (PCR) Not Detected (NotDetected) 08/07/23 11:39 Human Metapneumovir PCR Not Detected (NotDetected) 08/07/23 11:39 Influenza Type A (PCR) Not Detected (NotDetected) 08/07/23 11:39 Influenza Type B (PCR) Not Detected (NotDetected) 08/07/23 11:39 M. pneumoniae (PCR) Not Detected (NotDetected) 08/07/23 11:39 Parainfluenza 1 (PCR) Not Detected (NotDetected) 08/07/23 11:39 Parainfluenza 2 (PCR) Not Detected (NotDetected) 08/07/23 11:39 Parainfluenza 3 (PCR) Not Detected (NotDetected) 08/07/23 11:39 Parainfluenza 4 (PCR) Not Detected (NotDetected) 08/07/23 11:39 RSV (PCR) Not Detected (NotDetected) 08/07/23 11:39 Entero/Rhino (PCR) Not Detected (NotDetected) 08/07/23 11:39 Impressions Chest X-Ray 08/07/23 12:06 XR chest 1V portable HISTORY: 72 years-old Female sob acute shortness of breath COMPARISON: 06/02/2022 TECHNIQUE: AP view of the chest FINDINGS: Cardiac silhouette is enlarged. Left greater than right mixed interstitial and alveolar opacities. Possible trace pleural effusions. No pneumothorax. Chronic left shoulder deformity. Right shoulder arthroplasty. IMPRESSION: Cardiomegaly with left greater than right mixed interstitial and alveolar opacities suggestive of asymmetric pulmonary edema. Multifocal pneumonia could appear similarly. ACT 112: Negative or not required by law. The above report was generated using voice recognition software. It may contain grammatical, syntax or spelling errors. Electronically signed by: Dre Burleson M.D. 08/07/2023 1:18 PM Knee X-Ray 08/07/23 12:06 XR knee LT 1 or 2V routine CLINICAL HISTORY: pain fall. Left knee pain. COMPARISON STUDY: Left femur 01/04/2016. FINDINGS: Mild chondrocalcinosis within the left knee. Mild cartilage space narrowing within the medial compartment consistent with degenerative change. No acute fracture or dislocation. Mild vascular calcifications are noted. No knee effusion. IMPRESSION: No fracture or dislocation within the left knee. ACT 112: Negative or not required by law. Electronically signed by: Mauri Guzman M.D. 08/07/2023 1:20 PM Pelvis X-Ray 08/07/23 12:06 XR pelvis 1-2V routine CLINICAL HISTORY: pain fall. Pelvic pain. COMPARISON STUDY: Pelvis 01/09/2021. FINDINGS: No fracture or dislocation within the pelvis or hips. The sacrum is intact. 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 Bowel contents inferior to the pelvis consistent the patient's known large ventral hernia. IMPRESSION: 1. No fracture or dislocation within the pelvis or hips. 2. Large ventral hernia again noted. ACT 112: Negative or not required by law. Electronically signed by: Mauri Guzman M.D. 08/07/2023 1:22 PM Ankle X-Ray 08/07/23 14:18 XR ankle RT min 3V routine CLINICAL HISTORY: Right ankle pain. Fall. COMPARISON STUDY: None. FINDINGS: Nondisplaced distal right fibular fracture. No dislocation. Soft tissue swelling within the right ankle. Small well-corticated ossific density at the medial malleolus consistent with an old avulsion injury. There is mild to moderate osteoarthritis of the tibiotalar joint. Vascular calcifications are noted. Plantar and posterior calcaneal spurs. IMPRESSION: Nondisplaced distal right fibular fracture. ACT 112: Negative or not required by law. Electronically signed by: Mauri Guzman M.D. 08/07/2023 3:17 PM
[2023-08-07 17:51] LABS: Appearance Urine Clear (Clear); Bilirubin Urine Negative (Negative); Blood Urine Negative (Negative); Color Urine Yellow; Glucose Urine UA Trace (Negative); Ketones Urine Trace (Negative); Leukocyte Esterase Urine Negative (Negative); Nitrite Urine Negative (Negative); Protein Urine Negative (Negative); Specific Gravity Urine 1.016 (1.000-1.030); Urobilinogen Urine Negative (Negative); pH Urine 5.5 (4.5-7.5)
[2023-08-07 18:47] LABS: HCO3 VBG 35 mmol/L; Oxygen Saturation VBG 94.3 %; PCO2 VBG 65 mmHg (38-50); PO2 VBG 70 mmHg; pH VBG 7.34 (7.36-7.41)
--- NOTE | 2023-08-07 19:02 | XRay Report ---
XR hip JESUS 2v w pelvis CLINICAL HISTORY: Pelvic and hip pain s/p fall . want A/P and lateral views of b/L COMPARISON STUDY: Pelvis 08/07/2023. FINDINGS: There is moderate osteoarthritis within the bilateral hips. No fracture or dislocation with in the right or left hip. The sacrum is intact. Vascular calcifications are noted. There are suggesti ve of a nondisplaced fracture within the left superior pubic ramus. IMPRESSION: 1. Possible nondisplaced fracture within the left superior pubic ramus. Recommend correlate for point tenderness. 2. Otherwise, no fracture or dislocation within the bilateral hips. 3. Moderate osteoarthritis within the bilateral hips. ACT 112: Negative or not required by law. Electronically signed by: Mauri Guzman M.D. 08/07/2023 6:59 PM
[2023-08-07] MEDS: SODIUM CHLOR 7% 4 ML NEB NEB SCH (19:09)
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
--- OUTSIDE RECORDS SUMMARY | 2023-08-07 19:31 | External Medical Summary ---
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 Role Phone [facility] Care Team Information It Support Specialist + [phone] Problems Active Problems Provider Date Type II [...] 10/23/2019 Note: Document: 10/26/19 - D ischarge [facility] [place] Ventral incisional hernia Onset: Chronic anemia Onset: 0 Monoplegia of upper limb 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 Anemia CHARLOTTE Dean Onset : 06/17/2021 Hypothyroidism CHARLOTTE Dean Onset : 06/17/2021 Hernia of anterior abdominal wall CHARLOTTE Crarasco Onset: 06/17/2021 Social History Type Date Description [...] SIG Qnty Indications Order ing Provider Date Mwfeutahczr703sa Tablets take one tablet by mouth as a one-time dose as needed 5tabs Caryn Avalos MD 07/20/2023 Paixqlhjcjnd700vv Tablets take 1 tablet by mouth every day for 10 days 10tabs R06.00 Caryn Avalos MD 07/20/2023 - 07/25/2023 Onsmkxgulm85sx Tablets two tablets x 5 days then one tablet daily x 5 days 15tabs Caryn Avalos MD 07/20/2023 Piwlvschk5qh Tablets Take (1) Tablet Twice A Day as Needed. 60tabs F41.1 Caryn Avalos MD 04/13/2023 Suzdpnee322rx Tablets 1 and half tablet by mouth at bedtime 135tabs Caryn Avalos MD 08/14/2022 Bipap With Mask, Head Gear And SuppliesDevice Please switch patient to nasal pillow 1units G47.33 Caryn Avalos MD 06/19/2022 Albuterol Sulfate QAJ051(90Base) mcg/Act Aerosol take 2 puff as needed for shortness of breath. 8.500gm Caryn Avalos MD 12/20/2021 Ukuisakjoc7xo Tablets 1 by mouth every day 90tabs Caryn Avalos MD 09/19/2021 [employer] Ultra 2w/Device Kit test sugars as advised dx: e11.65 1units Caryn Avalos MD 08/15/2021 Pen Vefrazx34R X 4 mm Misc Use daily with insulin Dx; E11.65 300units Caryn Avalos MD 08/15/2021 Recliner Lift ChairMisc use as directed 1units Riley Barboza MD 03/04/2021 Metformin HMO467bl Tablets 1 tab by mouth three times a day 270tabs E11.65 Caryn Avalos MD 02/11/2021 Lantus Mybyvdcp194Rviu/ML Solution Pen-Inject inject 35 units subcutaneously at bedtime 45ml Caryn Avalos MD 02/04/2021 Aspirin Adult Low Ikxo59uv Tablets DR 1 by mouth every day Unknown 02/04/2021 Test Strips For Glucose MeterStrips test sugars daily and when symptomatic dx: e11.65 (clarity test strips blood glucose 1000) 100units E11.65 Caryn Avalos MD 12/27/2020 E11.51 Jehtlpl229sj Tablets 1 by mouth every day 90tabs E11.6 5 Caryn Avalos MD 11/16/2020 WheelchairMisc standard wheelchair with cushion and foot plates 1units Riley Barboza MD 10/26/2020 Ipratropium [place]/Albuterol Sulfate0.5-2.5(3)mg/3M L Solution use in nebulizer four times daily 90units Riley Barboza MD 07/30/2020 NebulizerMisc with supplies - use as directed 1units J44.9 Riley Barboza MD 07/16/2020 Abdominal Binder/Elastic LargeMisc 3 band use as directed 2units K43.9 Riley Barboza MD OxygenMisc concentrator continuous at 3 liters 22/01 with portability via nc 1units J44.9 Caryn Avalos MD 07/16/2020 WheelchairMisc power wheelchair - therapist eval required 1units Riley Barboza MD 07/16/2020 Ferrous Sagywzg593(65Fe) mg Tablets DR 1 by mouth every day Unknown 020 Veujnxhlgo13ka Tablets 1 by mouth as needed 90tabs Caryn Avalos MD 06/22/2020 Safety-Colton Safety Syringe/1ML/25G X 5/8"25G X 5/8" 1 ML Misc as directed 12units Riley Barboza MD 12/31/2019 1ML Vanishpoint Tuberculin Syringe 25GX1"25G X 1" 1 ML Misc use with vitamin b12 injections 4units Riley Barboza MD 12/29/2019 Laafxlzrprnezv3200flg/ ML Solution inject 1ml intramuscular once monthly 3units Riley Barboza MD 12/26/2019 Syringe 2-3 ML3ml Misc use to administer cyanocobalamin as prescribed 4units Riley Barboza MD 12/19/2019 Lfojlkrhnozld161as Tablets 2 tabs three times a day as needed Unknown 10/26/2019 Lgrlesmdwj096bw Capsules 1 tab by mouth three times a day 270caps Caryn Avalos MD 12/26/2017 Atorvastatin Yxuklpw07lw Tablets 1 by mouth every day 90tabs E78.5 Caryn Avalos MD Hxxmfvxxw095ka Tablets 1 by mouth every day Unknown Folic Osat5ts Tablets 1 by mouth every day Unknown Medications Administered in Office Medication SIG Qnty Indications Ordering Provider Date Injection Methylprednisolone Acetate 40 MGInjection CHARLOTTE Dean 01/11/2022 Injection Vitamin B-12 Up To 1000 mcgInjection CHARLOTTE Carrasco 01/09/2020 Injection Kenalog 10 MG ND [id number] CHARLOTTE Dean 04/02/2019 Injection Kenalog 10 MG NDC [id number] Dalia Guzman PA-C 07/23/2017 Injection Dexamethasone Sodi um Phosphate, 1 MGInjection Amanda Guzman PA-C 07/23/2017 Injection Kenalog 10 MG ND [id number] Daila Guzman PA-C 04/11/2017 Injection Dexamethasone 1 MGInjection Dalia bush PA-C 04/11/2017 Immunizations CPT Code Status Date Vaccine Lot # [id number] Given 04/13/2023 Sarscov2 Vaccin e 50 mcg/0.5 ML For Im Use 12 Yrs And Older 65465 Given 04/13/2023 RSV Arexvy Vacc Pref Recombinant Adjuvanted EMR Only U-FLU Given 04/13/2023 Influenza,Unspecified 23129 Given 01/30/2023 Tdap (Tetanus, diphtheria & acel. pertussis) Adacel or Boostrix [id number] 57972 Given 04/18/2022 Moderna Sars-Co v-2 (Covid-19) Vaccine, BiValent Booster 12y+ [id number] 16606 Given 04/03/2022 Influenza Vaccine High Do se 0.5ML Age 65 & > [id number] 16198 Given 05/24/2021 Pfizer Sars-Cov -2 (Cov-19) vacc 30mcg/0.3ML 12Y+ EMR Doc Only 15029 Given 05/05/2021 Influenza Virus Vaccine, Quadrivalent (Cciiv4), Derived From 0 Given 09/21/2020 Pfizer Sars-Cov -2 (Cov-19) vacc 30mcg/0.3ML 12Y+ EMR Doc Only 77898 Given 08/31/2020 Pfizer Sars-Cov -2 (Cov-19) vacc 30mcg/0.3ML 12Y+ EMR Doc Only 07741 Given 06/18/2020 Influenza Virus Vaccine, Quadrivalent (Cciiv4), Derived From 8 Given 06/18/2020 Pneumococcal Conjugate-Pr evnar 13 [id number] U-FLU Given 06/18/2020 Influenza,Unspecified 283 849 36969 Given 02/10/2019 Shingrix 71300 Given 02/08/2019 Shingrix 88283 Given 09/17/2018 Shingrix 31590 Given 06/05/2018 Pneumococcal Vaccine/Pneu movax 23 [id number] 85330 Given 03/22/2018 Influenza Virus Vaccine, Quadrivalent (Cciiv4), Derived From 7 Given 07/16/2017 Influenza Virus Vaccine, Quadrivalent, Im Use [id number] U-FLU Given 03/24/2015 Influenza,Unspecified U-FLU Given 04/01/2013 Influenza,Unspecified 03140 Given 04/01/2013 Pneumococcal Vaccine/Pneu movax 23 Vital Signs Date Vital Result Comment 05/15/2023 2:31pm BP Systolic 98 mmHg BP Diastolic 70 mmHg Body Temperature 97.5 F Heart Rate 92 /min Respiratory Rate 15 /min Weight 243.00 lb Weight 110.225 kg Height 64 inches 5'4" BMI (Body Mass Index) 41.7 kg/m2 O2 % BldC Oximetry 98 % [place] Body Weight 120 lb 02/09/2023 2:42pm BP Systolic 120 mmHg BP Diastolic 74 mmHg Body Temperature 97.8 F Heart Rate 96 /min O2 % BldC Oximetry 88 % Results Test Acquired Date Facility Test Result H/L Range N ote CBC W/Diff 05/15/2023 [facility]. [address] [place] [address] [phone] WBC 5.8 10^3/M3 3.1-9.2 RBC 3.77 10^6/M3 3.70-5.50 HGB 12.8 GR/DL 11.5-16.1 HCT 39.7 % 34.5-47.8 MCV 105.1 CUMICR High 82.6-95.8 MCH 34.0 PICOGR High 27.9-32.9 MCHC 32.4 % Low 32.6-35.4 RDW 14.5 % 11.4-14.6 PLT 235 10^3/M3 140-350 MPV 8.2 CUMICR 7.0-10.6 %Neut 73.2 % 40.0-75.0 %Lymph 12.3 % Low 17.0-45.0 %[place] 10.8 % 1.0-11.0 %Eos 2.6 % 0.0-6.0 %Baso 1.1 % 0.0-2.0 #Neut 4.2 10^3/M3 1.5-8.0 #Lymph 0.7 10^3/M3 Low 0.8-3.2 #[place] 0.6 10^3/M3 0.0-0.8 #Eos 0.1 10^3/m3 0.0-0.4 #Baso 0.1 10^3/m3 0.0-0.2 Comp. Met 05/15/2023 [facility]. [address] [place], [place] [address] [phone] Glucose 160 mg/dL High 70-110 BUN 21 [...] 2.0-3.4 GFR 105 ML/MIN/1.73SQM >60 Lipid 05/15/2023 [facility]. [address] [place] [address] [phone] Cholesterol 148 mg/dL 0-200 2 Triglyceride 360 mg/dL High 0-150 3 HDLD 43 mg/dL See Comment 4 Measured LDL 63 mg/dL 0-130 5 Calc VLDL 72.0 mg/dL See Comment 6 Chol/HDL 3.4 RATIO See Comment 7 Non-HDL 105 mg/dL See Comment 8 Laboratory test finding 05/15/2023 [facility]. [address] [place] [address] [phone] TSH 1.81 uIU/mL 0.50-6.00 Hba1c 05/15/2023 [facility]. [address] [place] [address] [phone] Macro 1+ A1c 6.30 % 4.70-6.50 9 Microalbumin Urine 05/15/2023 [facility]. [address] [place] [address] [phone] Urine Creat COMMENT mg/dL Comment Microalbumin COMMENT mg/dL 0.0-1.8 10 ug/mgCREATININE COMMENT ug/mg Low 0-29 11 Urinalysis 05/15/2023 [facility]. [address] [place] [address] [phone] Color COMMENT 12 Appearance COMMENT Clear Spec.Grav. COMMENT 1.005-1.025 Leukocytes COMMENT Negative Nitrite COMMENT Negative PH COMMENT 6.0-7.5 Protein COMMENT Negative Urine Glucose COMMENT Negative Ketone COMMENT Negative Urobilinogen COMMENT E.U./DL Normal Bilirubin COMMENT Negative Blood COMMENT Negative WBC-U COMMENT /HPF 0-5/HPF RBC-U COMMENT /HPF 0-5/HPF Bacteria COMMENT None Seen Squamous COMMENT /HPF 0-5/HPF Urinalysis,Cult If Indicated 05/15/2023 [facility]. [address] [place] [address] [phone] RFLX Culture COMMENT CBC W/Diff 02/09/2023 [facility]. [address] [place] [address] [phone] WBC COMMENT 10^3/M3 3.1-9 .2 RBC COMMENT 10^6/M3 3.70-5.50 HGB COMMENT GR/DL 11.5-16.1 HCT COMMENT % 34.5-47.8 MCV COMMENT CUMICR 82.6-95.8 MCH COMMENT PICOGR 27.9-32.9 MCHC COMMENT % 32.6-35.4 RDW COMMENT % 11.4-14.6 PLT COMMENT 10^3/M3 140-350 MPV COMMENT CUMICR 7.0-10.6 %Neut COMMENT % 40.0-75.0 %Lymph COMMENT % 17.0-45.0 %[place] COMMENT % 1.0-11.0 %Eos COMMENT % 0.0-6.0 %Baso COMMENT % 0.0-2.0 #Neut COMMENT 10^3/M3 1.5-8.0 #Lymph COMMENT 10^3/M3 0.8-3.2 #[place] COMMENT 10^3/M3 0.0-0.8 #Eos COMMENT 10^3/m3 0.0-0.4 #Baso COMMENT 10^3/m3 0.0-0.2 Comp. Met 02/09/2023 [facility]. [address] [place] [address] [phone] Glucose COMMENT mg/dL 70-110 BUN COMMENT mg/dL [...] ML/MIN/1.73SQM Low >60 13 Iron Panel(Medcom) 02/09/2023 [facility]. [address] [place], [place] [address] [phone] Iron COMMENT g /dL 25-140 14 % Saturation COMMENT % Low 30-35 15 Tibc 02/09/2023 [facility]. [address] [place], [place] [address] [phone] Tibc ERROR 14 g /dL 260-400 Transferrin [...] 150-7 90-5 300-12 270-11 240-10 10 *[facility] [employer] [employer] USES MICROALBUMIN/CREATINE RATIO : [...] TO LABORATORY. NO SPECIMENS RECEIVED FOR TESTING. 8.14.23 RENETTA 15 CANNOT CALCULATE %SAT WHEN IRON < 10 Procedures Date Code Description Status 05/15/2023 02835 Venipuncture Routine Complet ed 05/15/2023 3078F PVRP Diastolic BP <80 mmHg C ompleted 05/15/2023 3074F PVRP Systolic BP <130 mmHg C ompleted 05/15/2023 3052F Most Recent HG A1c > Equal T o 8.0% & < Equal To 9.0% Completed 02/09/2023 51941 Venipuncture Routine Complet ed Medical Devices Description No Information Available Encounters Type Date Location Provider Dx Diagnosis Office Visit 05/15/2023 2:30p Alma Jaimes PA-C I10 Essential (primary) hypertension E78.5 Hyperlipidemia, unsp ecified E11.9 Type 2 diabetes jaqueline itus without complications F33.1 Major depressive dis order, recurrent, moderate J96.11 Chronic respiratory failure with hypoxia E11.42 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 E66.01 Morbid (severe) obes ity due to excess calories K74.60 Unspecified cirrhosi s of liver Assessments Date Code Description Provider 07/20/2023 J44.1 Chronic obstruct arianne pulmonary disease with (acute) exacerbation Jose Jaimes PA-C 07/20/2023 J96.11 Chronic respiratory failure with hypoxia Jose Jaimes PA-C 05/15/2023 I10 Essential (primary) hyperten jesus Jose Jaimes PA-C 05/15/2023 E78.5 Hyperlipidemia, unspecified Jose Jaimes PA-C 05/15/2023 E11.9 Type 2 diabetes [...] 2:30 pm - Jose Jaimes PA-C at [facility] 07/20/2023 - Jose Jaimes PA-C* J44.1 Chronic obstructive pulmonary disease with (acute) exacerbation * J96.11 Chronic respiratory failure with hypoxia * All* New Medication:* Levofloxacin 500 mg - take 1 tablet by mouth every day for 10 days * Fluconazole 150 mg - take one tablet by mouth as a one-time dose as needed * Prednisone 10 mg - two tablets x 5 days then one tablet daily x 5 days Functional Status Description No Information Available Mental Status Description No Information Available Referrals Description No Information Available
--- OUTSIDE RECORDS SUMMARY | 2023-08-07 19:31 | External Medical Summary | Continuity of Care Document ---
Author Name Unknown Organization [facility] Address [address] [place] [address] Phone [phone] Care Team Providers Care Fitness And Wellness Coordinator Name Role Phone [facility] Care Team Information Manager Digital Ad Operations + [phone] Problems Active Problems Provider Date Type II [...] 10/23/2019 Note: Document: 10/26/19 - D ischarge 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 60tabs F41.1 Caryn Avalos MD 04/13/2023 Omhrwzsv499dp Tablets 1 and half tablet by mouth at bedtime 135tabs Caryn Avalos MD 08/14/2022 Bipap With Mask, Head Gear And SuppliesDevice Please switch patient to nasal pillow 1units G47.33 Caryn Avalos MD 06/19/2022 Albuterol Sulfate OEP440(90Base) mcg/Act Aerosol take 2 puff as needed for shortness of breath. 8.500gm Caryn Avalos MD 12/20/2021 Hfjbjpjuik4pg Tablets 1 by mouth every day 90tabs Caryn Avalos MD 09/19/2021 [employer] Ultra 2w/Device Kit test sugars as advised dx: e11.65 1units Caryn Avalos MD 08/15/2021 Pen Tiqaesm26T X 4 mm Misc Use daily with insulin Dx; E11.65 300units Caryn Avalos MD 08/15/2021 Recliner Lift ChairMisc use as directed 1units Riley Barboza MD 03/04/2021 Metformin BZC596vl Tablets 1 tab by mouth three times a day 270tabs E11.65 Caryn Avalos MD 02/11/2021 Lantus Hxxcknfe005Odxm/ML Solution Pen-Inject inject 35 units subcutaneously at bedtime 45ml Caryn Avalos MD 02/04/2021 Aspirin Adult Low Bfbq10wh Tablets DR 1 by mouth every day Unknown 02/04/2021 Test Strips For Glucose MeterStrips test sugars daily and when symptomatic dx: e11.65 (clarity test strips blood glucose 1000) 100units E11.65 Caryn Avalos MD 12/27/2020 E11.51 Juzrffm298vw Tablets 1 by mouth every day 90tabs E11.6 5 Caryn Avalos MD 11/16/2020 WheelchairMisc standard wheelchair with cushion and foot plates 1units Riley Barboza MD 10/26/2020 Ipratropium [place]/Albuterol Sulfate0.5-2.5(3)mg/3M L Solution use in nebulizer four [...] directed 2units K43.9 Riley Barboza MD Ferrous Ftjvbaq086(65Fe) mg Tablets DR 1 by mouth every day Unknown 020 Lfykhatfyk07zf Tablets 1 by mouth as needed 90tabs Caryn Avalos MD 06/22/2020 Safety-[employer]ton Safety Syringe/1ML/25G X 5/8"25G X 5/8" 1 ML Misc as directed 12units Riley Barboza MD 12/31/2019 1ML Vanishpoint Tuberculin Syringe 25GX1"25G X 1" 1 ML Misc use with vitamin b12 injections 4units Riley Barboza MD 12/29/2019 Jslnqyoviubybb0590lqd/ ML Solution inject 1ml intramuscular once monthly 3units Riley Barboza MD 12/26/2019 Syringe 2-3 ML3ml Misc use to administer cyanocobalamin as prescribed 4units Riley Barboza MD 12/19/2019 Lwujernmgfijk675qy Tablets 2 tabs three times a day as needed Unknown 10/26/2019 Kuixjkkyms535qy Capsules 1 tab by mouth three times a day 270caps Caryn Avalos MD 12/26/2017 Atorvastatin Adsybdp26da Tablets 1 by mouth every day 90tabs E78.5 Caryn Avalos MD Jqrdmsftj679bp Tablets 1 by mouth every day Unknown Folic Gdek2dl Tablets 1 by mouth every day Unknown Medications Administered in Office Medication SIG Qnty Indications Ordering Provider Date Injection Methylprednisolone Acetate 40 MGInjection CHARLOTTE Dean 01/11/2022 Injection Vitamin B-12 Up To 1000 mcgInjection CHARLOTTE Carrasco 01/09/2020 Injection Kenalog 10 MG ND [id number] CHARLOTTE Dean 04/02/2019 Injection Kenalog 10 MG ND 07505464594Bfirehrrh Dalia Guzman PA-C 07/23/2017 Injection Dexamethasone Sodi um Phosphate, 1 MGInjection Amanda Guzman PA-C 07/23/2017 Injection Kenalog 10 MG ND [id number] Dalia Guzman PA-C 04/11/2017 Injection Dexamethasone 1 MGInjection Dalia bush PA-C 04/11/2017 Immunizations CPT Code Status Date Vaccine Lot # [id number] Given 04/13/2023 Sarscov2 Vaccin e 50 mcg/0.5 ML For Im Use 12 Yrs And Older 50082 Given 04/13/2023 RSV Arexvy Vacc Pref Recombinant Adjuvanted EMR Only U-FLU Given 04/13/2023 Influenza,Unspecified 94439 Given 01/30/2023 Tdap (Tetanus, diphtheria & acel. pertussis) Adacel or Boostrix [id number] 52050 Given 04/18/2022 Moderna Sars-Co v-2 (Covid-19) Vaccine, BiValent Booster 12y+ [id number] 94824 Given 04/03/2022 Influenza Vaccine High Do se 0.5ML Age 65 & > [id number] 95436 Given 05/24/2021 Pfizer Sars-Cov -2 (Cov-19) vacc 30mcg/0.3ML 12Y+ EMR Doc Only 38901 Given 05/05/2021 Influenza Virus Vaccine, Quadrivalent (Cciiv4), Derived From 4 Given 09/21/2020 Pfizer Sars-Cov -2 (Cov-19) vacc 30mcg/0.3ML 12Y+ EMR Doc Only 84526 Given 08/31/2020 Adocia Sars-Cov -2 (Cov-19) vacc 30mcg/0.3ML 12Y+ EMR Doc Only 74227 Given 06/18/2020 Influenza Virus Vaccine, Quadrivalent (Cciiv4), Derived From 1 Given 06/18/2020 Pneumococcal Conjugate-Pr evnar 13 [id number] U-FLU Given 06/18/2020 Influenza,Unspecified 283 849 51797 Given 02/10/2019 Shingrix 65825 Given 02/08/2019 Shingrix 83399 Given 09/17/2018 Shingrix 40726 Given 06/05/2018 Pneumococcal Vaccine/Pneu movax 23 [id number] 46869 Given 03/22/2018 Influenza Virus Vaccine, Quadrivalent (Cciiv4), Derived From 9 Given 07/16/2017 Influenza Virus Vaccine, Quadrivalent, Im Use [id number] U-FLU Given 03/24/2015 Influenza,Unspecified U-FLU Given 04/01/2013 Influenza,Unspecified 82862 Given 04/01/2013 Pneumococcal Vaccine/Pneu movax 23 Vital Signs Date Vital Result Comment 05/15/2023 2:31pm BP Systolic 98 mmHg BP Diastolic 70 mmHg Body Temperature 97.5 F Heart Rate 92 /min Respiratory Rate 15 /min Weight 243.00 lb Weight 110.225 kg Height 64 inches 5'4" BMI (Body Mass Index) 41.7 kg/m2 O2 % BldC Oximetry 98 % [place] Body Weight 120 lb 02/09/2023 2:42pm BP Systolic 120 mmHg BP Diastolic 74 mmHg Body Temperature 97.8 F Heart Rate 96 /min O2 % BldC Oximetry 88 % Results Test Acquired Date Facility Test Result H/L Range N ote CBC W/Diff 05/15/2023 [facility]. [address] [place] [address] [phone] WBC 5.8 10^3/M3 3.1-9.2 RBC 3.77 10^6/M3 3.70-5.50 HGB 12.8 GR/DL 11.5-16.1 HCT 39.7 % 34.5-47.8 MCV 105.1 CUMICR High 82.6-95.8 MCH 34.0 PICOGR High 27.9-32.9 MCHC 32.4 % Low 32.6-35.4 RDW 14.5 % 11.4-14.6 PLT 235 10^3/M3 140-350 MPV 8.2 CUMICR 7.0-10.6 %Neut 73.2 % 40.0-75.0 %Lymph 12.3 % Low 17.0-45.0 %[place] 10.8 % 1.0-11.0 %Eos 2.6 % 0.0-6.0 %Baso 1.1 % 0.0-2.0 #Neut 4.2 10^3/M3 1.5-8.0 #Lymph 0.7 10^3/M3 Low 0.8-3.2 #[place] 0.6 10^3/M3 0.0-0.8 #Eos 0.1 10^3/m3 0.0-0.4 #Baso 0.1 10^3/m3 0.0-0.2 Comp. Met 05/15/2023 [facility]. [address] [place] [address] [phone] Glucose 160 mg/dL High 70-110 BUN 21 [...] 2.0-3.4 GFR 105 ML/MIN/1.73SQM >60 Lipid 05/15/2023 [facility]. [address] [place] [address] [phone] Cholesterol 148 mg/dL 0-200 2 Triglyceride 360 mg/dL High 0-150 3 HDLD 43 mg/dL See Comment 4 Measured LDL 63 mg/dL 0-130 5 Calc VLDL 72.0 mg/dL See Comment 6 Chol/HDL 3.4 RATIO See Comment 7 Non-HDL 105 mg/dL See Comment 8 Laboratory test finding 05/15/2023 [facility]. [address] [place] [address] [phone] TSH 1.81 uIU/mL 0.50-6.00 Hba1c 05/15/2023 [facility]. [address] [place] [address] [phone] Macro 1+ A1c 6.30 % 4.70-6.50 9 Microalbumin Urine 05/15/2023 [facility]. [address] [place], [place] [address] [phone] Urine Creat COMMENT mg/dL Comment Microalbumin COMMENT mg/dL 0.0-1.8 10 ug/mgCREATININE COMMENT ug/mg Low 0-29 11 Urinalysis 05/15/2023 [facility]. [address] [place], [place] [address] [phone] Color COMMENT 12 Appearance COMMENT Clear Spec.Grav. COMMENT 1.005-1.025 Leukocytes COMMENT Negative Nitrite COMMENT Negative PH COMMENT 6.0-7.5 Protein COMMENT Negative Urine Glucose COMMENT Negative Ketone COMMENT Negative Urobilinogen COMMENT E.U./DL Normal Bilirubin COMMENT Negative Blood COMMENT Negative WBC-U COMMENT /HPF 0-5/HPF RBC-U COMMENT /HPF 0-5/HPF Bacteria COMMENT None Seen Squamous COMMENT /HPF 0-5/HPF Urinalysis,Cult If Indicated 05/15/2023 [facility]. [address] [place], [place] [id number] [phone] RFLX Culture COMMENT CBC W/Diff 02/09/2023 [facility]. [address] [place] [address] [phone] WBC COMMENT 10^3/M3 3.1-9 .2 RBC COMMENT 10^6/M3 3.70-5.50 HGB COMMENT GR/DL 11.5-16.1 HCT COMMENT % 34.5-47.8 MCV COMMENT CUMICR 82.6-95.8 MCH COMMENT PICOGR 27.9-32.9 MCHC COMMENT % 32.6-35.4 RDW COMMENT % 11.4-14.6 PLT COMMENT 10^3/M3 140-350 MPV COMMENT CUMICR 7.0-10.6 %Neut COMMENT % 40.0-75.0 %Lymph COMMENT % 17.0-45.0 %[place] COMMENT % 1.0-11.0 %Eos COMMENT % 0.0-6.0 %Baso COMMENT % 0.0-2.0 #Neut COMMENT 10^3/M3 1.5-8.0 #Lymph COMMENT 10^3/M3 0.8-3.2 #[place] COMMENT 10^3/M3 0.0-0.8 #Eos COMMENT 10^3/m3 0.0-0.4 #Baso COMMENT 10^3/m3 0.0-0.2 Comp. Met 02/09/2023 [facility]. [address] [place] [address] [phone] Glucose COMMENT mg/dL 70-110 BUN COMMENT mg/dL [...] ML/MIN/1.73SQM Low >60 13 Iron Panel(Med[employer]) 02/09/2023 [facility]. [address] [place] [address] [phone] Iron COMMENT g /dL 25-140 14 % Saturation COMMENT % Low 30-35 15 Tibc 02/09/2023 [facility]. [address] [place] [address] [phone] Tibc ERROR 14 g /dL 260-400 Transferrin [...] 150-7 90-5 300-12 270-11 240-10 10 *[facility] [employer] USES MICROALBUMIN/CREATINE RATIO : [...] 10 Procedures Date Code Description Status 05/15/2023 88908 Venipuncture Routine Complet ed 05/15/2023 3078F PVRP Diastolic BP <80 mmHg C ompleted 05/15/2023 3074F PVRP Systolic BP <130 mmHg C ompleted 05/15/2023 3052F Most Recent HG A1c > Equal T o 8.0% & < Equal To 9.0% Completed 02/09/2023 05322 Venipuncture Routine Complet ed Medical Devices Description No Information Available Encounters Type Date Location Provider Dx Diagnosis Office Visit 05/15/2023 2:30p [facility] Jose Jaimes PA-C I10 Essential (primary) hypertension [...] 2:30 pm - Jose Jaimes PA-C at [facility] 05/15/2023 - Jose Jaimes PA-C* I10 Essential [...]
--- OUTSIDE RECORDS SUMMARY | 2023-08-07 19:31 | External Medical Summary | Continuity of Care Document ---
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 60tabs F41.1 Caryn Avalos MD 04/13/2023 Dcnpuils720pd Tablets 1 and half tablet by mouth at bedtime 135tabs Caryn Avalos MD 08/14/2022 Bipap With Mask, Head Gear And SuppliesDevice Please switch patient to nasal pillow 1units G47.33 Caryn Avalos MD 06/19/2022 Albuterol Sulfate ZBA541(90Base) mcg/Act Aerosol take 2 puff as needed for shortness of breath. 8.500gm Caryn Avalos MD 12/20/2021 Ailffjywqa7ni Tablets 1 by mouth every day 90tabs Caryn Avalos MD 09/19/2021 [employer] Ultra 2w/Device Kit test sugars as advised dx: e11.65 1units Caryn Avalos MD 08/15/2021 Pen Ziwnpvm36I X 4 mm Misc Use daily with insulin Dx; E11.65 300units Caryn Avalos MD 08/15/2021 Recliner Lift ChairMisc use as directed 1units Riley Barboza MD 03/04/2021 Metformin DWI624kd Tablets 1 tab by mouth three times a day 270tabs E11.65 Caryn Avalos MD 02/11/2021 Lantus Btbqxuzx651Morn/ML Solution Pen-Inject inject 35 units subcutaneously at bedtime 45ml Caryn Avalos MD 02/04/2021 Aspirin Adult Low Hecj13ua Tablets DR 1 by mouth every day Unknown 02/04/2021 Test Strips For Glucose MeterStrips test sugars daily and when symptomatic dx: e11.65 (clarity test strips blood glucose 1000) 100units E11.65 Caryn Avalos MD 12/27/2020 E11.51 Qzmsjet400cz Tablets 1 by mouth every day 90tabs E11.6 5 Caryn Avalos MD 11/16/2020 WheelchairMisc standard wheelchair with cushion and foot plates 1units Riley Barboza MD 10/26/2020 Ipratropium [place]/Albuterol Sulfate0.5-2.5(3)mg/3M L Solution use in nebulizer four [...] required 1units Riley Barboza MD 07/16/2020 Ferrous Qnjvsdc651(65Fe) mg Tablets DR 1 by mouth every day Unknown 020 Mxbadspodh11gb Tablets 1 by mouth as needed 90tabs Caryn Avalos MD 06/22/2020 Safety-Colton Safety Syringe/1ML/25G X 5/8"25G X 5/8" 1 ML Misc as directed 12units Riley Barboza MD 12/31/2019 1ML Vanishpoint Tuberculin Syringe 25GX1"25G X 1" 1 ML Misc use with vitamin b12 injections 4units Riley Barboza MD 12/29/2019 Fnwdxmqxezvsdj0576ogw/ ML Solution inject 1ml intramuscular once monthly 3units Riley Barboza MD 12/26/2019 Syringe 2-3 ML3ml Misc use to administer cyanocobalamin as prescribed 4units Riley Barboza MD 12/19/2019 Dhlaolmpryype811aj Tablets 2 tabs three times a day as needed Unknown 10/26/2019 Fuofcodhsx505wz Capsules 1 tab by mouth three times a day 270caps Caryn Avalos MD 12/26/2017 Atorvastatin Gljjend88be Tablets 1 by mouth every day 90tabs E78.5 Caryn Avalos MD Trzdspiuc008nx Tablets 1 by mouth every day Unknown Folic Ipam2ut Tablets 1 by mouth every day Unknown Medications Administered in Office Medication SIG Qnty Indications Ordering Provider Date Injection Methylprednisolone Acetate 40 MGInjection CHARLOTTE Dean 01/11/2022 Injection Vitamin B-12 Up To 1000 mcgInjection CHARLOTTE Carrasco 01/09/2020 Injection Kenalog 10 MG ND [id number] [place]LOTTE Dean 04/02/2019 Injection Kenalog 10 MG NDC [id number] Dalia Guzman PA-C 07/23/2017 Injection Dexamethasone Sodi um Phosphate, 1 MGInjection Amanda Guzman PA-C 07/23/2017 Injection Kenalog 10 MG ND [id number] Dalia Guzman PA-C 04/11/2017 Injection Dexamethasone 1 MGInjection Dalia bush PA-C 04/11/2017 Immunizations CPT Code Status Date Vaccine Lot # [id number] Given 04/13/2023 Sarscov2 Vaccin e 50 mcg/0.5 ML For Im Use 12 Yrs And Older 42030 Given 04/13/2023 RSV Arexvy Vacc Pref Recombinant Adjuvanted EMR Only U-FLU Given 04/13/2023 Influenza,Unspecified 76537 Given 01/30/2023 Tdap (Tetanus, diphtheria & acel. pertussis) Adacel or Boostrix [id number] 18142 Given 04/18/2022 Moderna Sars-Co v-2 (Covid-19) Vaccine, BiValent Booster 12y+ [id number] 66351 Given 04/03/2022 Influenza Vaccine High Do se 0.5ML Age 65 & > [id number] 26574 Given 05/24/2021 Pfizer Sars-Cov -2 (Cov-19) vacc 30mcg/0.3ML 12Y+ EMR Doc Only 62393 Given 05/05/2021 Influenza Virus Vaccine, Quadrivalent (Cciiv4), Derived From 2 Given 09/21/2020 Pfizer Sars-Cov -2 (Cov-19) vacc 30mcg/0.3ML 12Y+ EMR Doc Only 80785 Given 08/31/2020 Pfizer Sars-Cov -2 (Cov-19) vacc 30mcg/0.3ML 12Y+ EMR Doc Only 56332 Given 06/18/2020 Influenza Virus Vaccine, Quadrivalent (Cciiv4), Derived From 4 Given 06/18/2020 Pneumococcal Conjugate-Pr evnar 13 [id number] U-FLU Given 06/18/2020 Influenza,Unspecified 283 849 06073 Given 02/10/2019 Shingrix 11739 Given 02/08/2019 Shingrix 08213 Given 09/17/2018 Shingrix 11789 Given 06/05/2018 Pneumococcal Vaccine/Pneu movax 23 [id number] 99183 Given 03/22/2018 Influenza Virus Vaccine, Quadrivalent (Cciiv4), Derived From 3 Given 07/16/2017 Influenza Virus Vaccine, Quadrivalent, Im Use [id number] U-FLU Given 03/24/2015 Influenza,Unspecified U-FLU Given 04/01/2013 Influenza,Unspecified 69229 Given 04/01/2013 Pneumococcal Vaccine/Pneu movax 23 Vital Signs Date Vital Result Comment 05/15/2023 2:31pm BP Systolic 98 mmHg BP Diastolic 70 mmHg Body Temperature 97.5 F Heart Rate 92 /min Respiratory Rate 15 /min Weight 243.00 lb Weight 110.225 kg Height 64 inches 5'4" BMI (Body Mass Index) 41.7 kg/m2 O2 % BldC Oximetry 98 % [place] Body Weight 120 lb 02/09/2023 2:42pm BP Systolic 120 mmHg BP Diastolic 74 mmHg Body Temperature 97.8 F Heart Rate 96 /min O2 % BldC Oximetry 88 % Results Test Acquired Date Facility Test Result H/L Range N ote CBC W/Diff 05/15/2023 [facility] Lab. [address] [place] [address] [phone] WBC 5.8 10^3/M3 3.1-9.2 RBC 3.77 10^6/M3 3.70-5.50 HGB 12.8 GR/DL 11.5-16.1 HCT 39.7 % 34.5-47.8 MCV 105.1 CUMICR High 82.6-95.8 MCH 34.0 PICOGR High 27.9-32.9 MCHC 32.4 % Low 32.6-35.4 RDW 14.5 % 11.4-14.6 PLT 235 10^3/M3 140-350 MPV 8.2 CUMICR 7.0-10.6 %Neut 73.2 % 40.0-75.0 %Lymph 12.3 % Low 17.0-45.0 %[place] 10.8 % 1.0-11.0 %Eos 2.6 % 0.0-6.0 %Bas[place] 1.1 % 0.0-2.0 #Neut 4.2 10^3/M3 1.5-8.0 #Lymph 0.7 10^3/M3 Low 0.8-3.2 #[place] 0.6 10^3/M3 0.0-0.8 #Eos 0.1 10^3/m3 0.0-0.4 #Baso 0.1 10^3/m3 0.0-0.2 Comp. Met 05/15/2023 [facility] Lab. [address] [place], [place] [address] [phone] Glucose 160 mg/dL High 70-110 BUN 21 [...] 2.0-3.4 GFR 105 ML/MIN/1.73SQM >60 Lipid 05/15/2023 [facility] Lab. [address] [place] [address] [phone] Cholesterol 148 mg/dL 0-200 2 Triglyceride 360 mg/dL High 0-150 3 HDLD 43 mg/dL See Comment 4 Measured LDL 63 mg/dL 0-130 5 Calc VLDL 72.0 mg/dL See Comment 6 Chol/HDL 3.4 RATIO See Comment 7 Non-HDL 105 mg/dL See Comment 8 Laboratory test finding 05/15/2023 [facility] Lab. [address] [place] [address] [phone] TSH 1.81 uIU/mL 0.50-6.00 Hba1c 05/15/2023 [facility] Lab. [address] [place] [address] [phone] Macro 1+ A1c 6.30 % 4.70-6.50 9 Microalbumin Urine 05/15/2023 [facility] Lab. [address] [place] [address] [phone] Urine Creat COMMENT mg/dL Comment Microalbumin COMMENT mg/dL 0.0-1.8 10 ug/mgCREATININE COMMENT ug/mg Low 0-29 11 Urinalysis 05/15/2023 [facility] Lab. [address] [place] [address] [phone] Color COMMENT 12 Appearance COMMENT Clear Spec.Grav. COMMENT 1.005-1.025 Leukocytes COMMENT Negative Nitrite COMMENT Negative PH COMMENT 6.0-7.5 Protein COMMENT Negative Urine Glucose COMMENT Negative Ketone COMMENT Negative Urobilinogen COMMENT E.U./DL Normal Bilirubin COMMENT Negative Blood COMMENT Negative WBC-U COMMENT /HPF 0-5/HPF RBC-U COMMENT /HPF 0-5/HPF Bacteria COMMENT None Seen Squamous COMMENT /HPF 0-5/HPF Urinalysis,Cult If Indicated 05/15/2023 [facility] Lab. [address] [place] [address] [phone] RFLX Culture COMMENT CBC W/Diff 02/09/2023 [facility] Lab. [address] [place] [address] [phone] WBC COMMENT 10^3/M3 3.1-9 .2 RBC COMMENT 10^6/M3 3.70-5.50 HGB COMMENT GR/DL 11.5-16.1 HCT COMMENT % 34.5-47.8 MCV COMMENT CUMICR 82.6-95.8 MCH COMMENT PICOGR 27.9-32.9 MCHC COMMENT % 32.6-35.4 RDW COMMENT % 11.4-14.6 PLT COMMENT 10^3/M3 140-350 MPV COMMENT CUMICR 7.0-10.6 %Neut COMMENT % 40.0-75.0 %Lymph COMMENT % 17.0-45.0 %[place] COMMENT % 1.0-11.0 %Eos COMMENT % 0.0-6.0 %Baso COMMENT % 0.0-2.0 #Neut COMMENT 10^3/M3 1.5-8.0 #Lymph COMMENT 10^3/M3 0.8-3.2 #[place] COMMENT 10^3/M3 0.0-0.8 #Eos COMMENT 10^3/m3 0.0-0.4 #Baso COMMENT 10^3/m3 0.0-0.2 Comp. Met 02/09/2023 [facility] Lab. [address] [place] [address] [phone] Glucose COMMENT mg/dL 70-110 BUN COMMENT mg/dL [...] ML/MIN/1.73SQM Low >60 13 Iron Panel(Medcom) 02/09/2023 [facility] Lab. [address] [place], [place] [address] [phone] Iron COMMENT g /dL 25-140 14 % Saturation COMMENT % Low 30-35 15 Tibc 02/09/2023 [facility] Lab. [address] [place], [place] [address] [phone] Tibc ERROR 14 g /dL 260-400 Transferrin [...] 150-7 90-5 300-12 270-11 240-10 10 *[facility] [employer] USES MICROALBUMIN/CREATINE RATIO : [...] 10 Procedures Date Code Description Status 05/15/2023 16633 Venipuncture Routine Complet ed 05/15/2023 3078F PVRP Diastolic BP <80 mmHg C ompleted 05/15/2023 3074F PVRP Systolic BP <130 mmHg C ompleted 05/15/2023 3052F Most Recent HG A1c > Equal T o 8.0% & < Equal To 9.0% Completed 02/09/2023 72730 Venipuncture Routine Complet ed Medical Devices Description [...] 2:30 pm - Jose Jaimes PA-C at [facility] 07/20/2023 - Jose Jaimes PA-C* J44.1 Chronic [...]
--- OUTSIDE RECORDS SUMMARY | 2023-08-07 19:32 | External Medical Summary | Continuity of Care Document ---
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 Anemia CHARLOTTE Dean Onset : 06/17/2021 Hypothyroidism CHARLOTTE Dean Onset : 06/17/2021 Hernia of anterior abdominal wall CHARLOTTE Carrasco Onset: 06/17/2021 Social History Type Date Description Comments Sex Unknown Tobacco Use Reviewed: 02/09/23 Currently Smo kes 1-5 Cigarettes Daily Smoking Status Reviewed: 05/15/23 Currently Smo kes 1-5 Cigarettes Daily Tobacco [...] SIG Qnty Indications Order ing Provider Date Blgaphkcj0pc Tablets take 1 tablet by mouth 2 times a day as needed 60tabs F41.1 Caryn Avalos MD 04/13/2023 Uwxemiib492cl Tablets 1 and half tablet by mouth at bedtime 135tabs Caryn Avalos MD 08/14/2022 Bipap With Mask, Head Gear And SuppliesDevice Please switch patient to nasal pillow 1units G47.33 Caryn Avalos MD 06/19/2022 Albuterol Sulfate NID338(90Base) mcg/Act Aerosol take 2 puff as needed for shortness of breath. 8.500gm Caryn Avalos MD 12/20/2021 Xkboqeuwgr9oi Tablets 1 by mouth every day 90tabs Caryn Avalos MD 09/19/2021 [employer] Ultra 2w/Device Kit test sugars as advised dx: e11.65 1units Caryn Avalos MD 08/15/2021 Pen Pmnfltr38E X 4 mm Misc Use daily with insulin Dx; E11.65 300units Caryn Avalos MD 08/15/2021 Recliner Lift ChairMisc use as directed 1units Riley Barboza MD 03/04/2021 Metformin TUB900rm Tablets 1 tab by mouth three times a day 270tabs E11.65 Caryn Avalos MD 02/11/2021 Lantus Vlpgqdua136Ppno/ML Solution Pen-Inject inject 35 units subcutaneously at bedtime 45ml Caryn Avalos MD 02/04/2021 Aspirin Adult Low Xozf33ph Tablets DR 1 by mouth every day Unknown 02/04/2021 Test Strips For Glucose MeterStrips test sugars daily and when symptomatic dx: e11.65 (clarity test strips blood glucose 1000) 100units E11.65 Caryn Avalos MD 12/27/2020 E11.51 Nbceait072vi Tablets 1 by mouth every day 90tabs E11.6 5 Carny Avalos MD 11/16/2020 WheelchairMisc standard wheelchair with cushion and foot plates 1units Riley Barboza MD 10/26/2020 Ipratropium [place]/Albuterol Sulfate0.5-2.5(3)mg/3M L Solution use in nebulizer four [...] directed 2units K43.9 Riley Barboza MD Ferrous Pentzai589(65Fe) mg Tablets DR 1 by mouth every day Unknown 020 Okusuoyjgc14ky Tablets 1 by mouth as needed 90tabs Caryn Avalos MD 06/22/2020 Safety[employer] Safety Syringe/1ML/25G X 5/8"25G X 5/8" 1 ML Misc as directed 12units Riley Barboza MD 12/31/2019 1ML [employer] Tuberculin Syringe 25GX1"25G X 1" 1 ML Misc use with vitamin b12 injections 4units Riley Barboza MD 12/29/2019 Txnxzaygylzskm5170zsx/ ML Solution inject 1ml intramuscular once monthly 3units Riley Barboza MD 12/26/2019 Syringe 2-3 ML3ml Misc use to administer cyanocobalamin as prescribed 4units Riley Barboza MD 12/19/2019 Bspqnqkpcxaci675je Tablets 2 tabs three times a day as needed Unknown 10/26/2019 Ftsyvzwqpd355qh Capsules 1 tab by mouth three times a day 270caps Caryn Avalos MD 12/26/2017 Atorvastatin Nnbrngz85nu Tablets 1 by mouth every day 90tabs E78.5 Caryn Avalos MD Tbcsancti200wv Tablets 1 by mouth every day Unknown Folic Vhid2lv Tablets 1 by mouth every day Unknown Medications Administered in Office Medication SIG Qnty Indications Ordering Provider Date Injection Methylprednisolone Acetate 40 MGInjection CHARLOTTE eDan 01/11/2022 Injection Vitamin B-12 Up To 1000 mcgInjection CHARLOTTE Carrasco 01/09/2020 Injection Kenalog 10 MG ND [id number] CHARLOTTE Dean 04/02/2019 Injection Kenalog 10 MG ND [id number] Dalia Guzman PA-C 07/23/2017 Injection Dexamethasone Sodi um Phosphate, 1 MGInjection Amanda Guzman PA-C 07/23/2017 Injection Kenalog 10 MG ND [id number] Dalia Guzman PA-C 04/11/2017 Injection Dexamethasone 1 MGInjection Dalia bush PA-C 04/11/2017 Immunizations CPT Code Status Date Vaccine Lot # [id number] Given 04/13/2023 Sarscov2 Vaccin e 50 mcg/0.5 ML For Im Use 12 Yrs And Older 65290 Given 04/13/2023 RSV Arexvy Vacc Pref Recombinant Adjuvanted EMR Only U-FLU Given 04/13/2023 Influenza,Unspecified 89591 Given 01/30/2023 Tdap (Tetanus, diphtheria & acel. pertussis) Adacel or Boostrix [id number] 84779 Given 04/18/2022 Moderna Sars-Co v-2 (Covid-19) Vaccine, BiValent Booster 12y+ [id number] 60669 Given 04/03/2022 Influenza Vaccine High Do se 0.5ML Age 65 & > [id number] 09528 Given 05/24/2021 Pfizer Sars-Cov -2 (Cov-19) vacc 30mcg/0.3ML 12Y+ EMR Doc Only 27725 Given 05/05/2021 Influenza Virus Vaccine, Quadrivalent (Cciiv4), Derived From 2 Given 09/21/2020 Pfizer Sars-Cov -2 (Cov-19) vacc 30mcg/0.3ML 12Y+ EMR Doc Only 96021 Given 08/31/2020 Pfizer Sars-Cov -2 (Cov-19) vacc 30mcg/0.3ML 12Y+ EMR Doc Only 60710 Given 06/18/2020 Influenza Virus Vaccine, Quadrivalent (Cciiv4), Derived From 7 Given 06/18/2020 Pneumococcal Conjugate-Pr evnar 13 [id number] U-FLU Given 06/18/2020 Influenza,Unspecified 283 849 15147 Given 02/10/2019 Shingrix 23620 Given 02/08/2019 Shingrix 68349 Given 09/17/2018 Shingrix 65635 Given 06/05/2018 Pneumococcal Vaccine/Pneu movax 23 [id number] 89990 Given 03/22/2018 Influenza Virus Vaccine, Quadrivalent (Cciiv4), Derived From 1 Given 07/16/2017 Influenza Virus Vaccine, Quadrivalent, Im Use [id number] U-FLU Given 03/24/2015 Influenza,Unspecified U-FLU Given 04/01/2013 Influenza,Unspecified 09400 Given 04/01/2013 Pneumococcal Vaccine/Pneu movax 23 Vital Signs Date Vital Result Comment 05/15/2023 2:31pm BP Systolic 98 mmHg BP Diastolic 70 mmHg Body Temperature 97.5 F Heart Rate 92 /min Respiratory Rate 15 /min Weight 243.00 lb Weight 110.225 kg Height 64 inches 5'4" BMI (Body Mass Index) 41.7 kg/m2 O2 % BldC Oximetry 98 % [place] Body Weight 120 lb 02/09/2023 2:42pm BP Systolic 120 mmHg BP Diastolic 74 mmHg Body Temperature 97.8 F Heart Rate 96 /min O2 % BldC Oximetry 88 % Results Test Acquired Date Facility Test Result H/L Range N ote Laboratory test finding 05/15/2023 [facility] Lab. [address] [place] [address] [phone] TSH <pending> CBC W/Diff 02/09/2023 [facility] Lab. [address] [place], [place] [address] [phone] WBC COMMENT 10^3/M3 3.1-9.2 RBC COMMENT 10^6/M3 3.70-5.50 HGB COMMENT GR/DL 11.5-16.1 HCT COMMENT % 34.5-47.8 MCV COMMENT CUMICR 82.6-95.8 MCH COMMENT PICOGR 27.9-32.9 MCHC COMMENT % 32.6-35.4 RDW COMMENT % 11.4-14.6 PLT COMMENT 10^3/M3 140-350 MPV COMMENT CUMICR 7.0-10.6 %Neut COMMENT % 40.0-75.0 %Lymph COMMENT % 17.0-45.0 %[place] COMMENT % 1.0-11.0 %Eos COMMENT % 0.0-6.0 %Baso COMMENT % 0.0-2.0 #Neut COMMENT 10^3/M3 1.5-8.0 #Lymph COMMENT 10^3/M3 0.8-3.2 #[place] COMMENT 10^3/M3 0.0-0.8 #Eos COMMENT 10^3/m3 0.0-0.4 #Bas[place] COMMENT 10^3/m3 0.0-0.2 Comp. Met 02/09/2023 [facility] Lab. [address] [place] [address] [phone] Glucose COMMENT mg/dL 70-110 BUN COMMENT mg/dL [...] g/dL 2.0-3.4 GFR COMMENT ML/MIN/1.73SQM Low >60 1 Iron Panel(Medcom) 02/09/2023 [facility] Lab. [address] [place] [address] [phone] Iron COMMENT g /dL 25-140 2 % Saturation COMMENT % Low 30-35 3 Tibc 02/09/2023 [facility] Lab. [address] [place] [address] [phone] Tibc ERROR 14 g /dL 260-400 Transferrin COMMENT mg/dL 200-400 1 CANNOT CALCULATE RATIO WHEN CREATININE < 0.2 2 ORDER TRANSMITTED TO LABORATORY. NO SPECIMENS RECEIVED FOR TESTING. 02.12.23 RENETTA 3 CANNOT CALCULATE %SAT WHEN IRON < 10 Procedures Date Code Description Status 05/15/2023 08223 Venipuncture Routine Complet ed 05/15/2023 3078F PVRP Diastolic BP <80 mmHg C ompleted 05/15/2023 3074F PVRP Systolic BP <130 mmHg C ompleted 05/15/2023 3052F Most Recent HG A1c > Equal T o 8.0% & < Equal To 9.0% Completed 02/09/2023 17481 Venipuncture Routine Complet ed Medical Devices Description No Information Available Encounters Type Date Location Provider Dx Diagnosis Office Visit 05/15/2023 2:30p [facility] Jose Jaimes PA-C I10 Essential (primary) hypertension [...] 2:30 pm - Jose Jaimes PA-C at [facility] 05/15/2023 - Jose Jaimes PA-C* I10 Essential (primary) hypertension* New Labs:* Urinalysis,Cult If Indicated, Scheduled: 08/23/23 * Microalbumin Urine, Scheduled: 08/23/23 * Recommendations:* Low-salt diet. Exercise. Continue medication as directed. * E78.5 Hyperlipidemia, unspecified* New Labs:* Urinalysis,Cult If Indicated, Scheduled: 08/23/23 * Microalbumin Urine, Scheduled: 08/23/23 * Comments:* Continue current medication. * Recommendations:* Low-fat, low-cholesterol diet. Exercise. * E11.9 Type 2 diabetes mellitus without complications* New Labs:* Urinalysis,Cult If Indicated, Scheduled: 08/23/23 * Microalbumin Urine, Scheduled: 08/23/23 * Recommendations:* Follow diabetic diet. Continue medications as prescribed. * F33.1 Major depressive disorder, recurrent, moderate * J96.11 Chronic respiratory failure with hypoxia * E11.42 Type 2 diabetes mellitus with diabetic polyneuropathy * E66.01 Morbid (severe) obesity due to excess calories * K74.60 Unspecified cirrhosis of liver* Follow up:* Follow up August [facility] Functional Status Description No Information Available Mental Status Description No Information Available Referrals Description No Information Available
--- OUTSIDE RECORDS SUMMARY | 2023-08-07 19:32 | External Medical Summary | Continuity of Care Document ---
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 8.500gm Caryn Avalos MD 12/20/2021 Iaaaudkwuh4od Tablets 1 by mouth every day 90tabs Caryn Avalos MD 09/19/2021 Cozy Ultra 2w/Device Kit test sugars as advised dx: e11.65 1units Caryn Avalos MD 08/15/2021 Pen Htipikl52H X 4 mm Misc Use daily with insulin Dx; E11.65 300units Caryn Avalos MD 08/15/2021 Recliner Lift ChairMisc use as directed 1units Riley Barboza MD 03/04/2021 Metformin JTB153zc Tablets 1 tab by mouth three times a day 270tabs E11.65 Caryn Avalos MD 02/11/2021 Lantus Rntuwsrf707Xrav/ML Solution Pen-Inject inject 35 units subcutaneously at bedtime 45ml Caryn Avalos MD 02/04/2021 Aspirin Adult Low Wukd27ym Tablets DR 1 by mouth every day Unknown 02/04/2021 Test Strips For Glucose MeterStrips test sugars daily and when symptomatic dx: e11.65 (clarity test strips blood glucose 1000) 100units E11.65 Caryn Avalos MD 12/27/2020 E11.51 Vcywqcf958qr Tablets 1 by mouth every day 90tabs E11.6 5 Caryn Avalos MD 11/16/2020 WheelchairMisc standard wheelchair with cushion and foot plates 1units Riley Barboza MD 10/26/2020 Ipratropium [place]/Albuterol Sulfate0.5-2.5(3)mg/3M L Solution use in nebulizer four [...] directed 2units K43.9 Riley Barboza MD Ferrous Bxmucmp905(65Fe) mg Tablets DR 1 by mouth every day Unknown 020 Olmyyvrzhd33vy Tablets 1 by mouth as needed 90tabs Caryn Avalos MD 06/22/2020 Safety-[place] Safety Syringe/1ML/25G X 5/8"25G X 5/8" 1 ML Misc as directed 12units Riley Barboza MD 12/31/2019 1ML Vanishpoint Tuberculin Syringe 25GX1"25G X 1" 1 ML Misc use with vitamin b12 injections 4units Riley Barboza MD 12/29/2019 Jvysrnqmewppoy0099gou/ ML Solution inject 1ml intramuscular once monthly 3units Riley Barboza MD 12/26/2019 Syringe 2-3 ML3ml Misc use to administer cyanocobalamin as prescribed 4units Riley Barboza MD 12/19/2019 Fcbdzwpuyhoeh726ff Tablets 2 tabs three times a day as needed Unknown 10/26/2019 Ujnlbivfmd038jg Capsules 1 tab by mouth three times a day 270caps Caryn Avalos MD 12/26/2017 Atorvastatin Ugaljdk18ez Tablets 1 by mouth every day 90tabs E78.5 Caryn Avalos MD Owijwphhc157fx Tablets 1 by mouth every day Unknown Folic Xnqs0ac Tablets 1 by mouth every day Unknown Medications Administered in Office Medication SIG Qnty Indications Ordering Provider Date Injection Methylprednisolone Acetate 40 MGInjection CHARLOTTE Dean 01/11/2022 Injection Vitamin B-12 Up To 1000 mcgInjection CHARLOTTE Carrasco 01/09/2020 Injection Kenalog 10 MG ND [id number] CHARLOTTE Dean 04/02/2019 Injection Kenalog 10 MG ND [id number] Dalia Guzman PA-C 07/23/2017 Injection Dexamethasone Sodi um Phosphate, 1 MGInjection Amanda Guzman PA-C 07/23/2017 Injection Kenalog 10 MG ND [id number] Dalia Guzman PA-C 04/11/2017 Injection Dexamethasone 1 MGInjection Dalia bush PA-C 04/11/2017 Immunizations CPT Code Status Date Vaccine Lot # [id number] Given 04/13/2023 Sarscov2 Vaccin e 50 mcg/0.5 ML For Im Use 12 Yrs And Older 96404 Given 04/13/2023 RSV Arexvy Vacc Pref Recombinant Adjuvanted EMR Only U-FLU Given 04/13/2023 Influenza,Unspecified 57680 Given 01/30/2023 Tdap (Tetanus, diphtheria & acel. pertussis) Adacel or Boostrix [id number] 72715 Given 04/18/2022 Moderna Sars-Co v-2 (Covid-19) Vaccine, BiValent Booster 12y+ [id number] 07945 Given 04/03/2022 Influenza Vaccine High Do se 0.5ML Age 65 & > [id number] 01078 Given 05/24/2021 Pfizer Sars-Cov -2 (Cov-19) vacc 30mcg/0.3ML 12Y+ EMR Doc Only 67048 Given 05/05/2021 Influenza Virus Vaccine, Quadrivalent (Cciiv4), Derived From 9 Given 09/21/2020 Pfizer Sars-Cov -2 (Cov-19) vacc 30mcg/0.3ML 12Y+ EMR Doc Only 95427 Given 08/31/2020 Pfizer Sars-Cov -2 (Cov-19) vacc 30mcg/0.3ML 12Y+ EMR Doc Only 59047 Given 06/18/2020 Influenza Virus Vaccine, Quadrivalent (Cciiv4), Derived From 3 Given 06/18/2020 Pneumococcal Conjugate-Pr evnar 13 [id number] U-FLU Given 06/18/2020 Influenza,Unspecified 283 849 26644 Given 02/10/2019 Shingrix 02059 Given 02/08/2019 Shingrix 19633 Given 09/17/2018 Shingrix 74563 Given 06/05/2018 Pneumococcal Vaccine/Pneu movax 23 [id number] 09495 Given 03/22/2018 Influenza Virus Vaccine, Quadrivalent (Cciiv4), Derived From 5 Given 07/16/2017 Influenza Virus Vaccine, Quadrivalent, Im Use [id number] U-FLU Given 03/24/2015 Influenza,Unspecified U-FLU Given 04/01/2013 Influenza,Unspecified 58239 Given 04/01/2013 Pneumococcal Vaccine/Pneu movax 23 Vital Signs Date Vital Result Comment 05/15/2023 2:31pm BP Systolic 98 mmHg BP Diastolic 70 mmHg Body Temperature 97.5 F Heart Rate 92 /min Respiratory Rate 15 /min Weight 243.00 lb Weight 110.225 kg Height 64 inches 5'4" BMI (Body Mass Index) 41.7 kg/m2 O2 % BldC Oximetry 98 % [place] Body Weight 120 lb 02/09/2023 2:42pm BP Systolic 120 mmHg BP Diastolic 74 mmHg Body Temperature 97.8 F Heart Rate 96 /min O2 % BldC Oximetry 88 % Results Test Acquired Date Facility Test Result H/L Range N ote CBC W/Diff 05/15/2023 [facility]. [address] [place] [address] [phone] WBC 5.8 10^3/M3 3.1-9.2 RBC 3.77 10^6/M3 3.70-5.50 HGB 12.8 GR/DL 11.5-16.1 HCT 39.7 % 34.5-47.8 MCV 105.1 CUMICR High 82.6-95.8 MCH 34.0 PICOGR High 27.9-32.9 MCHC 32.4 % Low 32.6-35.4 RDW 14.5 % 11.4-14.6 PLT 235 10^3/M3 140-350 MPV 8.2 CUMICR 7.0-10.6 %Neut 73.2 % 40.0-75.0 %Lymph 12.3 % Low 17.0-45.0 %[place] 10.8 % 1.0-11.0 %Eos 2.6 % 0.0-6.0 %Baso 1.1 % 0.0-2.0 #Neut 4.2 10^3/M3 1.5-8.0 #Lymph 0.7 10^3/M3 Low 0.8-3.2 #[place] 0.6 10^3/M3 0.0-0.8 #Eos 0.1 10^3/m3 0.0-0.4 #Baso 0.1 10^3/m3 0.0-0.2 Comp. Met 05/15/2023 [facility]. [address] [place] [address] [phone] Glucose 160 mg/dL High 70-110 BUN 21 [...] 2.0-3.4 GFR 105 ML/MIN/1.73SQM >60 Lipid 05/15/2023 [facility] [address] [place] [address] [phone] Cholesterol 148 mg/dL 0-200 2 Triglyceride 360 mg/dL High 0-150 3 HDLD 43 mg/dL See Comment 4 Measured LDL 63 mg/dL 0-130 5 Calc VLDL 72.0 mg/dL See Comment 6 Chol/HDL 3.4 RATIO See Comment 7 Non-HDL 105 mg/dL See Comment 8 Laboratory test finding 05/15/2023 [facility] [address] [place] [address] [phone] TSH 1.81 uIU/mL 0.50-6.00 Hba1c 05/15/2023 [facility] [address] [place] [address] [phone] Macro 1+ A1c 6.30 % 4.70-6.50 9 Microalbumin Urine 05/15/2023 [facility]. [address] [place] [address] [phone] Urine Creat COMMENT mg/dL Comment Microalbumin COMMENT mg/dL 0.0-1.8 10 ug/mgCREATININE COMMENT ug/mg Low 0-29 11 Urinalysis 05/15/2023 [facility] [address] [place], [place] [address] [phone] Color COMMENT 12 Appearance COMMENT Clear Spec.Grav. COMMENT 1.005-1.025 Leukocytes COMMENT Negative Nitrite COMMENT Negative PH COMMENT 6.0-7.5 Protein COMMENT Negative Urine Glucose COMMENT Negative Ketone COMMENT Negative Urobilinogen COMMENT E.U./DL Normal Bilirubin COMMENT Negative Blood COMMENT Negative WBC-U COMMENT /HPF 0-5/HPF RBC-U COMMENT /HPF 0-5/HPF Bacteria COMMENT None Seen Squamous COMMENT /HPF 0-5/HPF Urinalysis,Cult If Indicated 05/15/2023 [facility] [address] [place], [place] [address] [phone] RFLX Culture COMMENT CBC W/Diff 02/09/2023 [facility] [address] [place], [place] [address] [phone] WBC COMMENT 10^3/M3 3.1-9 .2 RBC COMMENT 10^6/M3 3.70-5.50 HGB COMMENT GR/DL 11.5-16.1 HCT COMMENT % 34.5-47.8 MCV COMMENT CUMICR 82.6-95.8 MCH COMMENT PICOGR 27.9-32.9 MCHC COMMENT % 32.6-35.4 RDW COMMENT % 11.4-14.6 PLT COMMENT 10^3/M3 140-350 MPV COMMENT CUMICR 7.0-10.6 %Neut COMMENT % 40.0-75.0 %Lymph COMMENT % 17.0-45.0 %[place] COMMENT % 1.0-11.0 %Eos COMMENT % 0.0-6.0 %Baso COMMENT % 0.0-2.0 #Neut COMMENT 10^3/M3 1.5-8.0 #Lymph COMMENT 10^3/M3 0.8-3.2 #[place] COMMENT 10^3/M3 0.0-0.8 #Eos COMMENT 10^3/m3 0.0-0.4 #Baso COMMENT 10^3/m3 0.0-0.2 Comp. Met 02/09/2023 [facility] [address] [place] [address] [phone] Glucose COMMENT mg/dL 70-110 BUN COMMENT mg/dL [...] ML/MIN/1.73SQM Low >60 13 Iron Panel(Medcom) 02/09/2023 [facility]. [address] [place] [address] [phone] Iron COMMENT g /dL 25-140 14 % Saturation COMMENT % Low 30-35 15 Tibc 02/09/2023 [facility]. [address] [place] [address] [phone] Tibc ERROR 14 g /dL 260-400 Transferrin [...] 150-7 90-5 300-12 270-11 240-10 10 *[facility] [employer] USES MICROALBUMIN/CREATINE RATIO : [...] NO SPECIMENS RECEIVED FOR TESTING. 02.12.23 RENETTA 15 CANNOT CALCULATE %SAT WHEN IRON < 10 Procedures Date Code Description Status 05/15/2023 99035 Venipuncture Routine Complet ed 05/15/2023 3078F PVRP Diastolic BP <80 mmHg C ompleted 05/15/2023 3074F PVRP Systolic BP <130 mmHg C ompleted 05/15/2023 3052F Most Recent HG A1c > Equal T o 8.0% & < Equal To 9.0% Completed 02/09/2023 59459 Venipuncture Routine Complet ed Medical Devices Description No Information Available Encounters Type Date Location Provider Dx Diagnosis Office Visit 05/15/2023 2:30p [facility] Jose Jaimes PA-C I10 Essential (primary) hypertension [...] 2:30 pm - Jose Jaimes PA-C at [facility] 05/15/2023 - Jose Jaimes PA-C* I10 Essential [...]
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
--- OUTSIDE RECORDS SUMMARY | 2023-08-07 19:32 | External Medical Summary | Continuity of Care Document ---
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 Anemia CHARLOTTE Dean Onset : [...] SIG Qnty Indications Order ing Provider Date Wdgdcc2kn Tablets 1 by mouth two times a day as needed 60tabs F41.1 Oswaldo Xiong MD 09/27/2022 Vhnvhqwl090tq Tablets 1 tablet by mouth at bedtime 90tabs Oswaldo Xiong MD 08/14/2022 Dqycihgmbvz874ts Tablets take one tablet by mouth as a one-time dose as needed 5tabs Oswaldo Xiong MD 08/11/2022 Pwokyqoyeevw984oi Tablets take two tab on day 1st and one tab day 2 to 5 6tabs J44.1 Oswaldo Xiong MD 07/18/2022 Dzepuau008qp Tablets ER 12HR take one tab by mouth two times a day 15tabs J44.1 Oswaldo Xiong MD 07/18/2022 Uvfstooj915vk Capsules take one tab by mouth twice a day for 10 days 20caps J44.1 Oswaldo Xiong MD 07/18/2022 Bipap With Mask, Head Gear And SuppliesDevice Please switch patient to nasal pillow 1units G47.33 Oswaldo Xiong MD 06/19/2022 Potassium Chloride Roxane IH29Daw Tablets ER Unknown 06/06/2022 Albuterol Sulfate WWY852(90Base) mcg/Act Aerosol take 2 puff as needed for shortness of breath. 8.500gm Oswaldo Xiong MD 12/20/2021 Xlyqsbnkjc7ak Tablets 1 by mouth every day 90tabs Oswaldo Xiong MD 09/19/2021 Vital Access 2w/Device Kit test sugars as advised dx: e11.65 1units Oswaldo Xiong MD 08/15/2021 Pen Eokvcmk00L X 4 mm Misc Use daily with insulin Dx; E11.65 300units Oswaldo Xiong MD 08/15/2021 Recliner Lift ChairMisc use as directed 1units Riley Barboza MD 03/04/2021 Metformin KUB184yt Tablets 1 tab by mouth two times a day 270tabs E11.65 Oswaldo Xiong MD 02/11/2021 Lantus Zetkutez027Rnui/ML Solution Pen-Inject inject 35 units subcutaneously at bedtime 45ml Oswaldo Xiong MD 02/04/2021 Aspirin Adult Low Shzf26ha Tablets DR 1 by mouth every day Unknown 02/04/2021 Test Strips For Glucose MeterStrips test sugars daily and when symptomatic dx: e11.65 (clarity test strips blood glucose 1000) 100units E11.65 Oswaldo Xiong MD 12/27/2020 E11.51 Xaacuij995op Tablets 1 by mouth every day 90tabs E11.6 5 Oswaldo Xiong MD 11/16/2020 WheelchairMisc standard wheelchair with cushion and foot plates 1units Riley Barboza MD 10/26/2020 Ipratropium [place]/Albuterol Sulfate0.5-2.5(3)mg/3M L Solution use in nebulizer four [...] required 1units Riley Barboza MD 07/16/2020 Ferrous Sllfdsg740(65Fe) mg Tablets DR 1 by mouth every day Unknown 020 Whbcsmealv65tn Tablets 1 by mouth as needed 90tabs Oswaldo Xiong MD 06/22/2020 Safety-Colton Safety Syringe/1ML/25G X 5/8"25G X 5/8" 1 ML Misc as directed 12unrafita Barboza MD 12/31/2019 1ML Vanishpoint Tuberculin Syringe 25GX1"25G X 1" 1 ML Misc use with vitamin b12 injections 4unrafita Barboza MD 12/29/2019 Uygojryehcgcql0538hvj/ ML Solution inject 1ml intramuscular once monthly 3unrafita Barboza MD 12/26/2019 Syringe 2-3 ML3ml Misc use to administer cyanocobalamin as prescribed 4unrafita Barboza MD 12/19/2019 Jtpxvrvsjrlob174wq Tablets 2 tabs three times a day as needed Unknown 10/26/2019 Rmtambrwzn339jz Capsules 1 tab by mouth three times a day 270caps Oswaldo Xiong MD 12/26/2017 Atorvastatin Lhbzjbc54az Tablets 1 by mouth every day 90tabs E78.5 Oswaldo Xiong MD Mebtnupht174ar Tablets 1 by mouth every day Unknown History Medications Sdwzjmewoeb950zj Tablets four tablets pr ior to dental appointment repeat as needed 20tabs Oswaldo Xiong MD 10/02/2022 - 02/09/2023 Medications Administered in Office Medication SIG Qnty Indications Ordering Provider Date Injection Methylprednisolone Acetate 40 MGInjection CHARLOTTE Dean 01/11/2022 Injection Vitamin B-12 Up To 1000 mcgInjection CHARLOTTE Carrasco 01/09/2020 Injection Kenalog 10 MG NDC [id number] CHARLOTTE Dean 04/02/2019 Injection Kenalog 10 MG NDC [id number] Dalia Guzman PA-C 07/23/2017 Injection Dexamethasone Sodi um Phosphate, 1 MGInjection Amanda Guzman PA-C 07/23/2017 Injection Kenalog 10 MG NDC [id number] Dalia Guzman PA-C 04/11/2017 Injection Dexamethasone 1 MGInjection Dalia bush PA-C 04/11/2017 Immunizations CPT Code Status Date Vaccine Lot # 32765 Given 04/18/2022 Moderna Sars-Co v-2 (Covid-19) Vaccine, BiValent Booster 12y+ [id number] 42851 Given 04/03/2022 Influenza Vaccine High Do se 0.5ML [id number] 76006 Given 05/24/2021 Pfizer Sars-Cov -2 (Covid-19) vaccine, 30mcg/0.3ML 12Y+ 50684 Given 05/05/2021 Influenza Virus Vaccine, Quadrivalent (Cciiv4), Derived From 6 Given 09/21/2020 Pfizer Sars-Cov -2 (Covid-19) vaccine, 30mcg/0.3ML 12Y+ 25291 Given 08/31/2020 Pfizer Sars-Cov -2 (Covid-19) vaccine, 30mcg/0.3ML 12Y+ U-FLU Given 06/18/2020 Influenza,Unspecified 283 849 92894 Given 06/18/2020 Influenza Virus Vaccine, Quadrivalent (Cciiv4), Derived From 0 Given 06/18/2020 Pneumococcal Conjugate-Pr evnar 13 [id number] 24491 Given 02/10/2019 Shingrix 09930 Given 02/08/2019 Shingrix 77795 Given 09/17/2018 Shingrix 59045 Given 06/05/2018 Pneumococcal Vaccine/Pneu movax 23 [id number] 68908 Given 03/22/2018 Influenza Virus Vaccine, Quadrivalent (Cciiv4), Derived From 9 Given 07/16/2017 Influenza Virus Vaccine, Quadrivalent, Im Use [id number] U-FLU Given 03/24/2015 Influenza,Unspecified U-FLU Given 04/01/2013 Influenza,Unspecified 11176 Given 04/01/2013 Pneumococcal Vaccine/Pneu movax 23 Vital [...] H/L Range N ote CBC W/Diff 02/09/2023 [facility]. [address] [place] [address] [phone] WBC COMMENT 10^3/M3 3.1-9.2 RBC COMMENT 10^6/M3 3.70-5.50 HGB COMMENT GR/DL 11.5-16.1 HCT COMMENT % 34.5-47.8 MCV COMMENT CUMICR 82.6-95.8 MCH COMMENT PICOGR 27.9-32.9 MCHC COMMENT % 32.6-35.4 RDW COMMENT % 11.4-14.6 PLT COMMENT 10^3/M3 140-350 MPV COMMENT CUMICR 7.0-10.6 %Neut COMMENT % 40.0-75.0 %Lymph COMMENT % 17.0-45.0 %Gulf COMMENT % 1.0-11.0 %Eos COMMENT % 0.0-6.0 %Baso COMMENT % 0.0-2.0 #Neut COMMENT 10^3/M3 1.5-8.0 #Lymph COMMENT 10^3/M3 0.8-3.2 #Gulf COMMENT 10^3/M3 0.0-0.8 #Eos COMMENT 10^3/m3 0.0-0.4 #Baso COMMENT 10^3/m3 0.0-0.2 Comp. Met 02/09/2023 [facility]. [address] [place], [place] [address] [phone] Glucose COMMENT mg/dL 70-110 BUN COMMENT mg/dL [...] ML/MIN/1.73SQM Low >60 1 Iron Panel(Medcom) 02/09/2023 [facility]. [address] [place], [place] [address] [phone] Iron COMMENT g /dL 25-140 2 % Saturation COMMENT % Low 30-35 3 Tibc 02/09/2023 [facility]. [address] [place] [address] [phone] Tibc ERROR 14 g /dL 260-400 Transferrin COMMENT mg/dL 200-400 1 CANNOT CALCULATE RATIO WHEN CREATININE < 0.2 2 ORDER TRANSMITTED TO LABORATORY. NO SPECIMENS RECEIVED FOR TESTING. 8.14.23 RENETTA 3 CANNOT CALCULATE %SAT WHEN IRON < 10 Procedures Date Code Description Status 02/09/2023 90906 Venipuncture Routine Complet ed 08/23/2022 3288F Fall [...] Oswaldo Xiong MD 08/23/2022 Z00.01 Encounter for banneral adult medical examination with abnormal findings Jose [...]
--- OUTSIDE RECORDS SUMMARY | 2023-08-07 19:32 | External Medical Summary | Continuity of Care Document ---
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 Anemia CHARLOTTE Dean Onset : [...] SIG Qnty Indications Order ing Provider Date Kgzcsz1ra Tablets 1 by mouth two times a day as needed 60tabs F41.1 Oswaldo Xiong MD 09/27/2022 Jhuahlfy907vo Tablets 1 tablet by mouth at bedtime 90tabs Oswaldo Xiong MD 08/14/2022 Joxzexenexa046ic Tablets take one tablet by mouth as a one-time dose as needed 5tabs Oswaldo Xiong MD 08/11/2022 Tkznzaaetkfj352mw Tablets take two tab on day 1st and one tab day 2 to 5 6tabs J44.1 Oswaldo Xiong MD 07/18/2022 Nebdpxc651na Tablets ER 12HR take one tab by mouth two times a day 15tabs J44.1 Oswaldo Xiong MD 07/18/2022 Cldtqfne646wf Capsules take one tab by mouth twice a day for 10 days 20caps J44.1 Oswaldo Xiong MD 07/18/2022 Bipap With Mask, Head Gear And SuppliesDevice Please switch patient to nasal pillow 1units G47.33 Oswaldo Xiong MD 06/19/2022 Potassium Chloride Roxane QB30Onw Tablets ER Unknown 06/06/2022 Albuterol Sulfate QYL615(90Base) mcg/Act Aerosol take 2 puff as needed for shortness of breath. 8.500gm Oswaldo Xiong MD 12/20/2021 Tsulehgfyx1rw Tablets 1 by mouth every day 90tabs Oswaldo Xiong MD 09/19/2021 Ravn 2w/Device Kit test sugars as advised dx: e11.65 1units Oswaldo Xiong MD 08/15/2021 Pen Dbvmrfi79G X 4 mm Misc Use daily with insulin Dx; E11.65 300units Oswaldo Xiong MD 08/15/2021 Recliner Lift ChairMisc use as directed 1units Riley Barboza MD 03/04/2021 Metformin EFR766kh Tablets 1 tab by mouth two times a day 270tabs E11.65 Oswaldo Xiong MD 02/11/2021 Lantus Yuicglgq593Jnsx/ML Solution Pen-Inject inject 35 units subcutaneously at bedtime 45ml Oswaldo Xiong MD 02/04/2021 Aspirin Adult Low Ygji48ev Tablets DR 1 by mouth every day Unknown 02/04/2021 Test Strips For Glucose MeterStrips test sugars daily and when symptomatic dx: e11.65 (clarity test strips blood glucose 1000) 100units E11.65 Oswaldo Xiong MD 12/27/2020 E11.51 Zemqaxm849il Tablets 1 by mouth every day 90tabs E11.6 5 Oswaldo Xiong MD 11/16/2020 WheelchairMisc standard wheelchair with cushion and foot plates 1units Riley Barboza MD 10/26/2020 Ipratropium [place]/Albuterol Sulfate0.5-2.5(3)mg/3M L Solution use in nebulizer four [...] required 1units Riley Barboza MD 07/16/2020 Ferrous Hhgfggc329(65Fe) mg Tablets DR 1 by mouth every day Unknown 020 Xbmhaucfov95uc Tablets 1 by mouth as needed 90tabs Oswaldo Xiong MD 06/22/2020 Safety-Colton Safety Syringe/1ML/25G X 5/8"25G X 5/8" 1 ML Misc as directed 12unrafita Barboza MD 12/31/2019 1ML Vanishpoint Tuberculin Syringe 25GX1"25G X 1" 1 ML Misc use with vitamin b12 injections 4unrafita Barboza MD 12/29/2019 Tuxnhpmxtrosqq2429koc/ ML Solution inject 1ml intramuscular once monthly 3unrafita Barboza MD 12/26/2019 Syringe 2-3 ML3ml Misc use to administer cyanocobalamin as prescribed 4unrafita Barboza MD 12/19/2019 Ngkunmbaelxpp176vs Tablets 2 tabs three times a day as needed Unknown 10/26/2019 Vhgzpvjuxm661sx Capsules 1 tab by mouth three times a day 270caps Oswaldo Xiong MD 12/26/2017 Atorvastatin Hiholyo90yg Tablets 1 by mouth every day 90tabs E78.5 Oswaldo iXong MD Vdwobjhsf361kc Tablets 1 by mouth every day Unknown History Medications Xaaedfsylan082hm Tablets four tablets pr ior to dental appointment repeat as needed 20tabs Oswaldo Xiong MD 10/02/2022 - 02/09/2023 Medications Administered in Office Medication SIG Qnty Indications Ordering Provider Date Injection Methylprednisolone Acetate 40 MGInjection CHARLOTTE Dean 01/11/2022 Injection Vitamin B-12 Up To 1000 mcgInjection CHARLOTTE Carrasco 01/09/2020 Injection Kenalog 10 MG NDC [id number] CHARLOTTE Dean 04/02/2019 Injection Kenalog 10 MG NDC 91309178739Oliurhnnj Dalia Guzman PA-C 07/23/2017 Injection Dexamethasone Sodi um Phosphate, 1 MGInjection Amanda Guzman PA-C 07/23/2017 Injection Kenalog 10 MG NDC 90121515723Bfjtqwptz Dalia Guzman PA-C 04/11/2017 Injection Dexamethasone 1 MGInjection Dalia bush PA-C 04/11/2017 Immunizations CPT Code Status Date Vaccine Lot # 34438 Given 04/18/2022 Moderna Sars-Co v-2 (Covid-19) Vaccine, BiValent Booster 12y+ [id number] 11474 Given 04/03/2022 Influenza Vaccine High Do se 0.5ML [id number] 42774 Given 05/24/2021 Pfizer Sars-Cov -2 (Covid-19) vaccine, 30mcg/0.3ML 12Y+ 26706 Given 05/05/2021 Influenza Virus Vaccine, Quadrivalent (Cciiv4), Derived From 6 Given 09/21/2020 Pfizer Sars-Cov -2 (Covid-19) vaccine, 30mcg/0.3ML 12Y+ 02133 Given 08/31/2020 Pfizer Sars-Cov -2 (Covid-19) vaccine, 30mcg/0.3ML 12Y+ U-FLU Given 06/18/2020 Influenza,Unspecified 283 849 43864 Given 06/18/2020 Influenza Virus Vaccine, Quadrivalent (Cciiv4), Derived From 0 Given 06/18/2020 Pneumococcal Conjugate-Pr evnar 13 [id number] 31808 Given 02/10/2019 Shingrix 89195 Given 02/08/2019 Shingrix 44868 Given 09/17/2018 Shingrix 19542 Given 06/05/2018 Pneumococcal Vaccine/Pneu movax 23 [id number] 64794 Given 03/22/2018 Influenza Virus Vaccine, Quadrivalent (Cciiv4), Derived From 6 Given 07/16/2017 Influenza Virus Vaccine, Quadrivalent, Im Use [id number] U-FLU Given 03/24/2015 Influenza,Unspecified U-FLU Given 04/01/2013 Influenza,Unspecified 13194 Given 04/01/2013 Pneumococcal Vaccine/Pneu movax 23 Vital [...] Facility Test Result H/L Range N ote Iron Panel(Medcom) 02/09/2023 [facility]. [address] [place] [id number] [phone] Iron <pending> Tibc <pending> % Saturation <pending> Procedures Date Code Description Status 02/09/2023 84765 Venipuncture Routine Complet ed 08/23/2022 3288F Fall [...] Oswaldo Xiong MD 08/23/2022 Z00.01 Encounter for ge neral adult medical examination with abnormal findings Jose [...] unspecified site, subsequent encounter* New Labs:* CBC W/Diff, Ordered: 02/09/23 * Comp. Met, Ordered: 02/09/23 * Iron Panel(Medcom), Ordered: 02/09/23 [...]
--- OUTSIDE RECORDS SUMMARY | 2023-08-07 19:32 | External Medical Summary | Continuity of Care Document ---
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 Anemia CHARLOTTE Dean Onset : [...] SIG Qnty Indications Order ing Provider Date Ybzduz5pp Tablets 1 by mouth two times a day as needed 60tabs F41.1 Oswaldo Xiong MD 09/27/2022 Wjkamzsc251xl Tablets 1 tablet by mouth at bedtime 90tabs Oswaldo Xiong MD 08/14/2022 Ncaixbvppay794lc Tablets take one tablet by mouth as a one-time dose as needed 5tabs Oswaldo Xiong MD 08/11/2022 Cvzmjonjhpyc263iq Tablets take two tab on day 1st and one tab day 2 to 5 6tabs J44.1 Oswaldo Xiong MD 07/18/2022 Dwrflah067ri Tablets ER 12HR take one tab by mouth two times a day 15tabs J44.1 Oswaldo Xiong MD 07/18/2022 Rzgphptu889al Capsules take one tab by mouth twice a day for 10 days 20caps J44.1 Oswaldo Xiong MD 07/18/2022 Bipap With Mask, Head Gear And SuppliesDevice Please switch patient to nasal pillow 1units G47.33 Oswaldo Xiong MD 06/19/2022 Potassium Chloride Roxane UI19Rvb Tablets ER Unknown 06/06/2022 Albuterol Sulfate NUA503(90Base) mcg/Act Aerosol take 2 puff as needed for shortness of breath. 8.500gm Oswaldo Xiong MD 12/20/2021 Nnarugfnat7ne Tablets 1 by mouth every day 90tabs Oswaldo Xiong MD 09/19/2021 ReadyForZero 2w/Device Kit test sugars as advised dx: e11.65 1units Oswaldo Xiong MD 08/15/2021 Pen Lzdgnss52Y X 4 mm Misc Use daily with insulin Dx; E11.65 300units Oswaldo Xiong MD 08/15/2021 Recliner Lift ChairMisc use as directed 1units Riley Barboza MD 03/04/2021 Metformin PVN997kc Tablets 1 tab by mouth two times a day 270tabs E11.65 Oswaldo Xiong MD 02/11/2021 Lantus Ixazwasg365Cogk/ML Solution Pen-Inject inject 35 units subcutaneously at bedtime 45ml Oswaldo Xiong MD 02/04/2021 Aspirin Adult Low Elvg35zh Tablets DR 1 by mouth every day Unknown 02/04/2021 Test Strips For Glucose MeterStrips test sugars daily and when symptomatic dx: e11.65 (clarity test strips blood glucose 1000) 100units E11.65 Oswaldo Xiong MD 12/27/2020 E11.51 Zoaoxah175oo Tablets 1 by mouth every day 90tabs E11.6 5 Oswaldo Xiong MD 11/16/2020 WheelchairMisc standard wheelchair with cushion and foot plates 1units Riley Barboza MD 10/26/2020 Ipratropium [place]/Albuterol Sulfate0.5-2.5(3)mg/3M L Solution use in nebulizer four [...] required 1units Riley Barboza MD 07/16/2020 Ferrous Ymdrdji683(65Fe) mg Tablets DR 1 by mouth every day Unknown 020 Hvcdgtzqhp30kk Tablets 1 by mouth as needed 90tabs Oswaldo Xiong MD 06/22/2020 Safety-Colton Safety Syringe/1ML/25G X 5/8"25G X 5/8" 1 ML Misc as directed 12unrafita Barboza MD 12/31/2019 1ML Vanishpoint Tuberculin Syringe 25GX1"25G X 1" 1 ML Misc use with vitamin b12 injections 4unrafita Barboza MD 12/29/2019 Xtbutrrgrndsql8851dwb/ ML Solution inject 1ml intramuscular once monthly 3unrafita Barboza MD 12/26/2019 Syringe 2-3 ML3ml Misc use to administer cyanocobalamin as prescribed 4unrafita Barboza MD 12/19/2019 Jcpwrbcmabton351ef Tablets 2 tabs three times a day as needed Unknown 10/26/2019 Qtcwwhlntk525kj Capsules 1 tab by mouth three times a day 270caps Oswaldo iXong MD 12/26/2017 Atorvastatin Bxpqdcm63zg Tablets 1 by mouth every day 90tabs E78.5 Oswaldo Xiong MD Uvrlzlrgx853mn Tablets 1 by mouth every day Unknown History Medications Mxwscbdcnvw867st Tablets four tablets pr ior to dental appointment repeat as needed 20tabs Oswaldo Xiong MD 10/02/2022 - 02/09/2023 Medications Administered in Office Medication SIG Qnty Indications Ordering Provider Date Injection Methylprednisolone Acetate 40 MGInjection CHARLOTTE Dean 01/11/2022 Injection Vitamin B-12 Up To 1000 mcgInjection CHARLOTTE Carrasco 01/09/2020 Injection Kenalog 10 MG NDC [id number] CHARLOTTE Dean 04/02/2019 Injection Kenalog 10 MG NDC 46050532414Hxhbnaacn Dalia Guzman PA-C 07/23/2017 Injection Dexamethasone Sodi um Phosphate, 1 MGInjection Amanda Guzman PA-C 07/23/2017 Injection Kenalog 10 MG NDC 71077337173Gsxojammb Dalia Guzman PA-C 04/11/2017 Injection Dexamethasone 1 MGInjection Dalia bush PA-C 04/11/2017 Immunizations CPT Code Status Date Vaccine Lot # [id number] Given 04/18/2022 Moderna Sars-Co v-2 (Covid-19) Vaccine, BiValent Booster 12y+ [id number] 32732 Given 04/03/2022 Influenza Vaccine High Do se 0.5ML [id number] 21269 Given 05/24/2021 Pfizer Sars-Cov -2 (Covid-19) vaccine, 30mcg/0.3ML 12Y+ 52236 Given 05/05/2021 Influenza Virus Vaccine, Quadrivalent (Cciiv4), Derived From 8 Given 09/21/2020 Pfizer Sars-Cov -2 (Covid-19) vaccine, 30mcg/0.3ML 12Y+ 74695 Given 08/31/2020 Pfizer Sars-Cov -2 (Covid-19) vaccine, 30mcg/0.3ML 12Y+ U-FLU Given 06/18/2020 Influenza,Unspecified 283 849 40179 Given 06/18/2020 Influenza Virus Vaccine, Quadrivalent (Cciiv4), Derived From 0 Given 06/18/2020 Pneumococcal Conjugate-Pr evnar 13 [id number] 73271 Given 02/10/2019 Shingrix 55415 Given 02/08/2019 Shingrix 70871 Given 09/17/2018 Shingrix 44313 Given 06/05/2018 Pneumococcal Vaccine/Pneu movax 23 [id number] 59348 Given 03/22/2018 Influenza Virus Vaccine, Quadrivalent (Cciiv4), Derived From 4 Given 07/16/2017 Influenza Virus Vaccine, Quadrivalent, Im Use [id number] U-FLU Given 03/24/2015 Influenza,Unspecified U-FLU Given 04/01/2013 Influenza,Unspecified 18648 Given 04/01/2013 Pneumococcal Vaccine/Pneu movax 23 Vital [...] H/L Range N ote CBC W/Diff 02/09/2023 [facility]. [address] [place] [address] [phone] WBC COMMENT 10^3/M3 3.1-9.2 RBC COMMENT 10^6/M3 3.70-5.50 HGB COMMENT GR/DL 11.5-16.1 HCT COMMENT % 34.5-47.8 MCV COMMENT CUMICR 82.6-95.8 MCH COMMENT PICOGR 27.9-32.9 MCHC COMMENT % 32.6-35.4 RDW COMMENT % 11.4-14.6 PLT COMMENT 10^3/M3 140-350 MPV COMMENT CUMICR 7.0-10.6 %Neut COMMENT % 40.0-75.0 %Lymph COMMENT % 17.0-45.0 %Cache COMMENT % 1.0-11.0 %Eos COMMENT % 0.0-6.0 %Baso COMMENT % 0.0-2.0 #Neut COMMENT 10^3/M3 1.5-8.0 #Lymph COMMENT 10^3/M3 0.8-3.2 #Cache COMMENT 10^3/M3 0.0-0.8 #Eos COMMENT 10^3/m3 0.0-0.4 #Baso COMMENT 10^3/m3 0.0-0.2 Comp. Met 02/09/2023 [facility]. [address] [place], [place] [address] [phone] Glucose COMMENT mg/dL 70-110 BUN COMMENT mg/dL [...] [facility]. [address] [place], [place] [address] [phone] Iron COMMENT g /dL 25-140 2 % Saturation COMMENT % Low 30-35 3 Tibc 02/09/2023 [facility]. [address] [place] [address] [phone] Tibc ERROR 14 g /dL 260-400 Transferrin COMMENT mg/dL 200-400 1 CANNOT CALCULATE RATIO WHEN CREATININE < 0.2 2 ORDER TRANSMITTED TO LABORATORY. NO SPECIMENS RECEIVED FOR TESTING. 8.14.23 RENETTA 3 CANNOT CALCULATE %SAT WHEN IRON < 10 Procedures Date Code Description Status 02/09/2023 25511 Venipuncture Routine Complet ed 08/23/2022 3288F Fall [...] Xiong MD 08/23/2022 Z00.01 [facility] [place] [facility] with abnormal [...] and neck, unspecified site, subsequent encounter* New Orders:* Wound Care, Ordered: 02/09/23 * [...]
--- OUTSIDE RECORDS SUMMARY | 2023-08-07 19:32 | External Medical Summary ---
Continuity of Care Document (CCD) Created on: May 17, 2023 Traci Roman External Reference #: [id number] Sex: Female Author Name JOSE JAIMES Address [address] [place] [id number] Phone [phone] Organization [facility] Address [address] [place] [phone] Phone [phone] Care Team Providers Care Tankman Name Role Phone [facility] Care Team Information Rush Seater + [phone] Problems Active Problems Provider Date Type II [...] 10/23/2019 Note: Document: 10/26/19 - D ischarge Summary-[facility] Ventral incisional hernia Onset: Chronic anemia Onset: 0 Monoplegia of upper limb Andrew Dean [employer]STRUCTION[employer] DES[employer] Onset: 10/04/2020 Anemia CHARLOTTE Dean Onset : [...] SIG Qnty Indications Order ing Provider Date Pqqyqfidd1li Tablets take 1 tablet by mouth 2 times a day as needed 60tabs F41.1 Caryn Avalos MD 04/13/2023 Rntikvmk562bs Tablets 1 and half tablet by mouth at bedtime 135tabs Caryn Avalos MD 08/14/2022 Bipap With Mask, Head Gear And SuppliesDevice Please switch patient to nasal pillow 1units G47.33 Caryn Avalos MD 06/19/2022 Albuterol Sulfate BAN358(90Base) mcg/Act Aerosol take 2 puff as needed for shortness of breath. 8.500gm Caryn Avalos MD 12/20/2021 Gvfcbmascn7sy Tablets 1 by mouth every day 90tabs Caryn Avalos MD 09/19/2021 Shopline Ultra 2w/Device Kit test sugars as advised dx: e11.65 1units Caryn Avalos MD 08/15/2021 Pen Pewogjz30M X 4 mm Misc Use daily with insulin Dx; E11.65 300units Caryn Avalos MD 08/15/2021 Recliner Lift ChairMisc use as directed 1units Riley Barboza MD 03/04/2021 Metformin IHM619bi Tablets 1 tab by mouth three times a day 270tabs E11.65 Caryn Avalos MD 02/11/2021 Lantus Lcjzbcia255Zzgm/ML Solution Pen-Inject inject 35 units subcutaneously at bedtime 45ml Caryn Avalos MD 02/04/2021 Aspirin Adult Low Qbte69ki Tablets DR 1 by mouth every day Unknown 02/04/2021 Test Strips For Glucose MeterStrips test sugars daily and when symptomatic dx: e11.65 (clarity test strips blood glucose 1000) 100units E11.65 Caryn Avalos MD 12/27/2020 E11.51 Rlizfvp917fg Tablets 1 by mouth every day 90tabs E11.6 5 Caryn Avalos MD 11/16/2020 WheelchairMisc standard wheelchair with cushion and foot plates 1units Riley Barboza MD 10/26/2020 Ipratropium Aydlett/Albuterol Sulfate0.5-2.5(3)mg/3M L Solution use in nebulizer four [...] directed 2units K43.9 Riley Barboza MD Ferrous Lucgpns028(65Fe) mg Tablets DR 1 by mouth every day Unknown 020 Jyjqzrwvgg08ur Tablets 1 by mouth as needed 90tabs Caryn Avalos MD 06/22/2020 Safety-Colton Safety Syringe/1ML/25G X 5/8"25G X 5/8" 1 ML Misc as directed 12units Riley Barboza MD 12/31/2019 1ML Vanishpoint Tuberculin Syringe 25GX1"25G X 1" 1 ML Misc use with vitamin b12 injections 4units Riley Barboza MD 12/29/2019 Xrsxpdvgmvjucg0721gxr/ ML Solution inject 1ml intramuscular once monthly 3units Riley Barboza MD 12/26/2019 Syringe 2-3 ML3ml Misc use to administer cyanocobalamin as prescribed 4units Riley Barboza MD 12/19/2019 Iwmuakylzsdst032xr Tablets 2 tabs three times a day as needed Unknown 10/26/2019 Ninxcbdtqz002bz Capsules 1 tab by mouth three times a day 270caps Caryn Avalos MD 12/26/2017 Atorvastatin Bhtndsv80oc Tablets 1 by mouth every day 90tabs E78.5 Caryn Avalos MD Tqgxmxkwl260zr Tablets 1 by mouth every day Unknown Folic Lwla4zh Tablets 1 by mouth every day Unknown Medications Administered in Office Medication SIG Qnty Indications Ordering Provider Date Injection Methylprednisolone Acetate 40 MGInjection CHARLOTTE Dean 01/11/2022 Injection Vitamin B-12 Up To 1000 mcgInjection CHARLOTTE Carrasco 01/09/2020 Injection Kenalog 10 MG ND [id number] CHARLOTTE Dean 04/02/2019 Injection Kenalog 10 MG ND [id number] Dalia Guzman PA-C 07/23/2017 Injection Dexamethasone Sodi um Phosphate, 1 MGInjection Amanda Guzman PA-C 07/23/2017 Injection Kenalog 10 MG ND [id number] Dalia Guzman PA-C 04/11/2017 Injection Dexamethasone 1 MGInjection Dalia bush PA-C 04/11/2017 Immunizations CPT Code Status Date Vaccine Lot # [id number] Given 04/13/2023 Sarscov2 Vaccin e 50 mcg/0.5 ML For Im Use 12 Yrs And Older 27941 Given 04/13/2023 RSV Arexvy Vacc Pref Recombinant Adjuvanted EMR Only U-FLU Given 04/13/2023 Influenza,Unspecified 84902 Given 01/30/2023 Tdap (Tetanus, diphtheria & acel. pertussis) Adacel or Boostrix [id number] 59691 Given 04/18/2022 Moderna Sars-Co v-2 (Covid-19) Vaccine, BiValent Booster 12y+ [id number] 00030 Given 04/03/2022 Influenza Vaccine High Do se 0.5ML Age 65 & > [id number] 80015 Given 05/24/2021 Pfizer Sars-Cov -2 (Cov-19) vacc 30mcg/0.3ML 12Y+ EMR Doc Only 23443 Given 05/05/2021 Influenza Virus Vaccine, Quadrivalent (Cciiv4), Derived From 4 Given 09/21/2020 Pfizer Sars-Cov -2 (Cov-19) vacc 30mcg/0.3ML 12Y+ EMR Doc Only 33354 Given 08/31/2020 Pfizer Sars-Cov -2 (Cov-19) vacc 30mcg/0.3ML 12Y+ EMR Doc Only 34405 Given 06/18/2020 Influenza Virus Vaccine, Quadrivalent (Cciiv4), Derived From 6 Given 06/18/2020 Pneumococcal Conjugate-Pr evnar 13 [id number] U-FLU Given 06/18/2020 Influenza,Unspecified [id number] [id number] 86695 Given 02/10/2019 Shingrix 34163 Given 02/08/2019 Shingrix 26609 Given 09/17/2018 Shingrix 00392 Given 06/05/2018 Pneumococcal Vaccine/Pneu movax 23 [id number] 09508 Given 03/22/2018 Influenza Virus Vaccine, Quadrivalent (Cciiv4), Derived From 3 Given 07/16/2017 Influenza Virus Vaccine, Quadrivalent, Im Use [id number] U-FLU Given 03/24/2015 Influenza,Unspecified U-FLU Given 04/01/2013 Influenza,Unspecified 33854 Given 04/01/2013 Pneumococcal Vaccine/Pneu movax 23 Vital Signs Date Vital Result Comment 05/15/2023 2:31pm BP Systolic 98 mmHg BP Diastolic 70 mmHg Body Temperature 97.5 F Heart Rate 92 /min Respiratory Rate 15 /min Weight 243.00 lb Weight 110.225 kg Height 64 inches 5'4" BMI (Body Mass Index) 41.7 kg/m2 O2 % BldC Oximetry 98 % [place] Body Weight 120 lb 02/09/2023 2:42pm BP Systolic 120 mmHg BP Diastolic 74 mmHg Body Temperature 97.8 F Heart Rate 96 /min O2 % BldC Oximetry 88 % Results Test Acquired Date Facility Test Result H/L Range N ote CBC W/Diff 05/15/2023 [facility] [address] [place] [address] [phone] WBC 5.8 10^3/M3 3.1-9.2 RBC 3.77 10^6/M3 3.70-5.50 HGB 12.8 GR/DL 11.5-16.1 HCT 39.7 % 34.5-47.8 MCV 105.1 CUMICR High 82.6-95.8 MCH 34.0 PICOGR High 27.9-32.9 MCHC 32.4 % Low 32.6-35.4 RDW 14.5 % 11.4-14.6 PLT 235 10^3/M3 140-350 MPV 8.2 CUMICR 7.0-10.6 %Neut 73.2 % 40.0-75.0 %Lymph 12.3 % Low 17.0-45.0 %[place] 10.8 % 1.0-11.0 %Eos 2.6 % 0.0-6.0 %Baso 1.1 % 0.0-2.0 #Neut 4.2 10^3/M3 1.5-8.0 #Lymph 0.7 10^3/M3 Low 0.8-3.2 #[place] 0.6 10^3/M3 0.0-0.8 #Eos 0.1 10^3/m3 0.0-0.4 #Baso 0.1 10^3/m3 0.0-0.2 Comp. Met 05/15/2023 [facility] [address] [place] [address] [phone] Glucose 160 mg/dL High 70-110 BUN 21 [...] 2.0-3.4 GFR 105 ML/MIN/1.73SQM >60 Lipid 05/15/2023 [facility] [address] [place] [address] [phone] Cholesterol 148 mg/dL 0-200 2 Triglyceride 360 mg/dL High 0-150 3 HDLD 43 mg/dL See Comment 4 Measured LDL 63 mg/dL 0-130 5 Calc VLDL 72.0 mg/dL See Comment 6 Chol/HDL 3.4 RATIO See Comment 7 Non-HDL 105 mg/dL See Comment 8 Laboratory test finding 05/15/2023 [facility] [address] [place] [address] [phone] TSH 1.81 uIU/mL 0.50-6.00 Hba1c 05/15/2023 [facility] [address] [place] [address] [phone] Macro 1+ A1c 6.30 % 4.70-6.50 9 Microalbumin Urine 05/15/2023 [facility] [address] [place] [address] [phone] Urine Creat COMMENT mg/dL Comment Microalbumin COMMENT mg/dL 0.0-1.8 10 ug/mgCREATININE COMMENT ug/mg Low 0-29 11 Urinalysis 05/15/2023 [facility] [address] [place], [place] [id number] [phone] Color COMMENT 12 Appearance COMMENT Clear Spec.Grav. COMMENT 1.005-1.025 Leukocytes COMMENT Negative Nitrite COMMENT Negative PH COMMENT 6.0-7.5 Protein COMMENT Negative Urine Glucose COMMENT Negative Ketone COMMENT Negative Urobilinogen COMMENT E.U./DL Normal Bilirubin COMMENT Negative Blood COMMENT Negative WBC-U COMMENT /HPF 0-5/HPF RBC-U COMMENT /HPF 0-5/HPF Bacteria COMMENT None Seen Squamous COMMENT /HPF 0-5/HPF Urinalysis,Cult If Indicated 05/15/2023 [facility] [address] [place], [place] [id number] [phone] RFLX Culture COMMENT CBC W/Diff 02/09/2023 [facility] [address] [place], [place] [id number] [phone] WBC COMMENT 10^3/M3 3.1-9 .2 RBC COMMENT 10^6/M3 3.70-5.50 HGB COMMENT GR/DL 11.5-16.1 HCT COMMENT % 34.5-47.8 MCV COMMENT CUMICR 82.6-95.8 MCH COMMENT PICOGR 27.9-32.9 MCHC COMMENT % 32.6-35.4 RDW COMMENT % 11.4-14.6 PLT COMMENT 10^3/M3 140-350 MPV COMMENT CUMICR 7.0-10.6 %Neut COMMENT % 40.0-75.0 %Lymph COMMENT % 17.0-45.0 %Navarro COMMENT % 1.0-11.0 %Eos COMMENT % 0.0-6.0 %Baso COMMENT % 0.0-2.0 #Neut COMMENT 10^3/M3 1.5-8.0 #Lymph COMMENT 10^3/M3 0.8-3.2 #[place]arro COMMENT 10^3/M3 0.0-0.8 #Eos COMMENT 10^3/m3 0.0-0.4 #Baso COMMENT 10^3/m3 0.0-0.2 Comp. Met 02/09/2023 [facility] [address] [place] [address] [phone] Glucose COMMENT mg/dL 70-110 BUN COMMENT mg/dL [...] ML/MIN/1.73SQM Low >60 13 Iron Panel([facility]) 02/09/2023 [facility] [address] [place] [address] [phone] Iron COMMENT g /dL 25-140 14 % Saturation COMMENT % Low 30-35 15 Tibc 02/09/2023 [facility] [address] [place] [address] [phone] Tibc ERROR 14 g /dL 260-400 Transferrin [...] 150-7 90-5 300-12 270-11 240-10 10 *[facility] USES MICROALBUMIN/CREATINE RATIO : [...] 10 Procedures Date Code Description Status 05/15/2023 27390 Venipuncture Routine Complet ed 05/15/2023 3078F PVRP Diastolic BP <80 mmHg C ompleted 05/15/2023 3074F PVRP Systolic BP <130 mmHg C ompleted 05/15/2023 3052F Most Recent HG A1c > Equal T o 8.0% & < Equal To 9.0% Completed 02/09/2023 91267 Venipuncture Routine Complet ed Medical Devices Description No Information Available Encounters Type Date Location Provider Dx Diagnosis Office Visit 05/15/2023 2:30p [facility] Jose Jiames PA-C I10 Essential (primary) hypertension E78.5 Hyperlipidemia, [...] 2:30 pm - Jose Jaimes PA-C at [facility] 05/15/2023 - Jose Jaimes PA-C* I10 Essential [...]
[2023-08-07] MEDS: GABAPENTIN 300 MG CAP PO SCH (20:48)
[2023-08-07] MEDS: ATORVASTATIN 40 MG TAB PO SCH (20:48)
[2023-08-07] MEDS: ASPIRIN 81 MG ECTAB PO SCH (20:48)
[2023-08-07] MEDS: LANTUS PER UNIT CHARGE SQ SCH (20:49)
[2023-08-07] MEDS: LORazepam 0.5 MG TAB PO SCH (20:50)
[2023-08-07] MEDS: ENOXAPARIN INJ 40 MG/0.4 ML SYR SQ SCH (21:04)
[2023-08-08] MEDS: INSULIN ASPART PER UNIT CHARGE SC SCH ×2 (00:12→12:04)
[2023-08-08 05:49] LABS: Base Excess VBG 7.7 mEq/L; HCO3 VBG 35 mmol/L; Oxygen Saturation VBG 89.9 %; PCO2 VBG 59 mmHg (38-50); PO2 VBG 61 mmHg; pH VBG 7.38 (7.36-7.41)
[2023-08-08 05:56] LABS: Hematocrit (blood only) 32.2 % (37.0-47.0); Hemoglobin 10.2 g/dl (12.0-16.0); Mean Corpuscular Hemoglobin 32.5 pg (25.0-34.0); Mean Corpuscular Hgb Conc 31.7 g/dL (32.0-36.0); Mean Corpuscular Volume 102.5 fL (80.0-100.0); Mean Platelet Volume 9.4 fL (9.4-12.4); Platelet Count 294 K/uL (130-400); RDW Coefficient of Variation 13.6 % (11.5-14.5); RDW Standard Deviation 50.9 fL (36.4-46.3); Red Blood Count 3.14 M/uL (4.20-5.40); White Blood Count 5.43 K/ul (4.8-10.8)
[2023-08-08 06:18] LABS: BUN Creatinine Ratio 38.2 (10-20); Calcium 10.4 mg/dl (8.6-10.3); Est GFR (African American) 91.5 ml/min; Est GFR (Non-African American) 78.9 ml/min; Magnesium 1.6 mg/dl (1.7-2.4); Potassium 4.9 mmol/L (3.5-5.1)
[2023-08-08 06:38] LABS: Basophils # (auto) 0.01 K/uL (0.00-0.20); Basophils % (auto) 0.2 %; Immature Granulocytes # (auto) 0.01 K/uL (0.01-0.20); Immature Granulocytes % (auto) 0.2 %; Lymphocytes # (auto) 0.31 K/uL (1.20-3.40); Lymphocytes % (auto) 5.7 %; Monocytes # (auto) 0.14 K/uL (0.11-0.59); Monocytes % (auto) 2.6 %; Neutrophils # (auto) 4.96 K/uL (1.40-6.50); Neutrophils % (auto) 91.3 %
[2023-08-08] MEDS: LANTUS PER UNIT CHARGE SQ SCH (09:06)
[2023-08-08] MEDS: lisinopril 5 MG TAB PO SCH (09:07)
[2023-08-08] MEDS: MAGNESIUM OXIDE 400 MG TAB PO SCH (09:56)
--- NOTE | 2023-08-08 10:38 | Orthopedic Progress Note ---
Date of Service August 08, 2023 Assessment & Plan (1) Closed right fibular fracture: Plan: She has a nondisplaced right fibular fracture. We would plan to treat this nonoperatively. Maintain the splint at all times. She needs to be nonweightbearing of her right lower extremity with assistance of a walker. She may get out of bed and transfer to a chair. Will follow-up in 7 to 10 days for repeat x-rays of the right ankle to reevaluate alignment. Continue the splint for potentially 2 to 3 weeks and then transition to a short leg cast or fracture boot. Encouraged elevation and ice as needed for pain and swelling. Elevated right ankle on pillow today. Recommending keeping heel off of bed at all times to prevent any type of pressure ulcer. Patient understands and agrees with the plan. Call [phone] with any questions or concerns. Spent approximately 5 minutes discussing her fracture with her and showing him the x-rays. (2) Hip pain: Plan: She denies any hip pain today. There was some question of possibly a left superior pubic rami fracture on her AP pelvis. She does have moderate hip arthritis. She is tolerating full range of motion actively and passively and is nontender over the right or left superior pubic rami. I do not think that she has an acute fracture at this time. She may weight-bear as tolerated and advance activities as tolerated with regards to her hips. Admission and Anticipated Discharge Date Admission Date: August 07, 2023 Subjective Patient is resting in bed. is at bedside. She just worked with physical therapy. She denies any pain in her hips today. She states that they do feel better. She denies any pain in her right ankle. The splint is comfortable. She did have trouble with physical therapy maintaining nonweightbearing. They did have her dangle at the edge of the bed. Physical Exam Musculoskeletal: Right lower extremity is in splint. The splint is well-padded. Is comfortable. Toes are nonedematous and nontender. Sensation is normal. Dorsalis pedis pulses 1+. Foot is warm. She tolerates active flexion of both knees and hips. No edema in her left leg. Tolerates logrolling of the left hip. She can actively bend her knee without discomfort on the left side. She is able to independently straight leg raise bilaterally. Results & Data Vital Signs (Past 12 Hours) Vital Signs Temp Pulse Pulse Resp BP Pulse Ox O2 Del Method 08/08/23 09:11 Nasal Cannula 08/08/23 07:59 36.9 C 91 H 20 139/72 91 BiPAP 08/08/23 07:04 88 20 97 08/08/23 07:02 90 20 97 BiPAP 08/08/23 07:00 79 08/08/23 03:15 36.6 C 90 19 141/66 H 97 BiPAP 08/08/23 02:27 93 H 26 H 95 08/07/23 23:46 CPAP 08/07/23 22:43 37 C 74 18 131/77 96 CPAP O2 Flow Rate FiO2 08/08/23 09:11 6 08/08/23 07:59 08/08/23 07:04 40 08/08/23 07:02 40 08/08/23 07:00 08/08/23 03:15 40 08/08/23 02:27 40 08/07/23 23:46 08/07/23 22:43 Diagnostic Findings XR hip JESUS 2v w pelvis CLINICAL HISTORY: Pelvic and hip pain s/p fall . want A/P and lateral views of b/L COMPARISON STUDY: Pelvis 08/07/2023. FINDINGS: There is moderate osteoarthritis within the bilateral hips. No fracture or dislocation within the right or left hip. The sacrum is intact. Vascular calcifications are noted. There are suggestive of a nondisplaced fracture within the left superior pubic ramus. IMPRESSION: 1. Possible nondisplaced fracture within the left superior pubic ramus. Recommend correlate for point tenderness. 2. Otherwise, no fracture or dislocation within the bilateral hips. 3. Moderate osteoarthritis within the bilateral hips. (1) Closed right fibular fracture Encounter type: initial encounter Fibula location: proximal Fracture morphology: unspecified fracture morphology Qualified Code(s): S82.831A - Other fracture of upper and lower end of right fibula, initial encounter for closed fracture
[2023-08-08] MEDS ORDERED: Nursing to Pharmacy Communication SCH (11:00)
[2023-08-08] MEDS: ACETAMINOPHEN 1,000 MG/100 ML VIAL IV PRN (13:48)
--- NOTE | 2023-08-08 15:54 | Hospitalist Progress Note ---
Date of Service August 08, 2023 Assessment & Plan (1) Right fibular fracture: Plan: Orthopedic consultation appreciated. No surgical intervention needed. Right lower extremity has been immobilized and elevated. Pain control measures. (2) Closed fracture of left pelvis: Plan: Left superior ramus fracture noted on x-ray. Supportive care. Pain control measures. (3) Fatigue: Plan: Continue OT and PT while hospitalized. (4) Chronic respiratory failure with hypoxia and hypercapnia: Plan: Stable. Patient is chronically on 5L NC . Will keep saturation in the 98 to 92% area to prevent further CO2 retention (5) Atelectasis of left lung: Plan: Chronic. Incentive spirometry. Continue pulmonary toilet while hospitalized (6) Uncontrolled type 2 diabetes mellitus with hyperosmolarity, without long- term current use of insulin: Plan: ADA diet. Sliding scale coverage. Lantus dosage uptitrated today, August 08. (7) Chronic right-sided congestive heart failure: Plan: Known chronic cor pulmonale. Stable. Continue current medical management (8) Hypertension: Plan: Stable. Continue lisinopril (9) Morbid obesity: Plan: BMI greater than 40. Significant weight loss recommended Plan Anticipate eventual discharge to SNF or IPR Admission and Anticipated Discharge Date Admission Date: August 07, 2023 Subjective Alert and oriented. No distress. is at the bedside. Orthopedic entry noted. No surgical intervention necessary at this time. Continue OT and PT daily. She will need placement. Lantus dosage has been uptitrated. She does have a left superior ramus pelvic fracture seen on x-ray. She states she chronically wears oxygen at home. Oral magnesium replacement ordered. Review of Systems 2 Review of Systems: Constitutional-no fever or chills ENT-no blurred vision, no double vision, no epistaxis, no sore throat Respiratory-no cough, no wheezing, no shortness of breath Cardiac-no palpitations, no chest pain, no syncope GI-no nausea, vomiting, diarrhea, melena, hematochezia -no urinary retention, no urinary incontinence, no dysuria, no hematuria Musculoskeletal-back discomfort from limited ambulation and she does not like the bed. Right lower extremity below the knee has been immobilized Skin-no bruising, no rashes, no pruritus Neuro-no isolated weakness, no paresthesia Psych-no depression, no anxiety Physical Exam 2 Physical Exam: General-alert and oriented x3, no fever, no chills. Morbidly obese HEENT-head atraumatic and normocephalic, pupils equal and reactive to light, extraocular muscles intact Neck-no lymphadenopathy or thyromegaly, trachea midline Chest-clear to auscultation anteriorly. No rales, wheezing or rhonchi Cardiac-regular rate and rhythm, normal S1 and S2 Abdomen-normal bowel sounds, nontender, no hepatosplenomegaly Extremities-right lower extremity immobilized below the knee. Neuro-cranial nerves II through XII intact, motor and sensory function within normal limits, strength symmetrical, no focal deficits Psych-normal affect, normal mood Results & Data Results & Data Vital Signs (Past 12 Hours) Vital Signs Temp Pulse Pulse Resp BP Pulse Ox O2 Del Method 08/08/23 15:42 37.2 C 67 20 124/73 94 Nasal Cannula 08/08/23 14:06 65 08/08/23 11:26 36.9 C 70 20 131/82 94 Nasal Cannula 08/08/23 09:11 Nasal Cannula 08/08/23 07:59 36.9 C 91 H 20 139/72 91 BiPAP 08/08/23 07:04 88 20 97 08/08/23 07:02 90 20 97 BiPAP 08/08/23 07:00 79 O2 Flow Rate FiO2 08/08/23 15:42 6 08/08/23 14:06 08/08/23 11:26 6 08/08/23 09:11 6 08/08/23 07:59 08/08/23 07:04 40 08/08/23 07:02 40 08/08/23 07:00 Laboratory Results 08/08/23 05:17 08/08/23 05:17 PG Care Time/CCT Total # of Minutes Spent Total Time Spent with Patient: Total time spent is greater than 50% in coordination of care (as documented) at patient's floor/unit and/or counseling patient: Coding Level of Care Code 00052 SUB INP/OBS CARE 350MIN Diagnoses Right fibular fracture S82.401A Closed fracture of left pelvis S32.9XXA Fatigue R53.83 Chronic respiratory failure with hypoxia and hypercapnia J96.11; J96.12 Atelectasis of left lung J98.11 Uncontrolled type 2 diabetes mellitus with hyperosmolarity, without long-term current use of insulin E11.00 Chronic right-sided congestive heart failure I50.812 Essential hypertension I10 Hypertension type: essential hypertension Morbid obesity E66.01 (8) Hypertension Hypertension type: essential hypertension Qualified Code(s): I10 - Essential (primary) hypertension
[2023-08-09 07:01] LABS: Basophils # (auto) 0.03 K/uL (0.00-0.20); Basophils % (auto) 0.3 %; Eosinophils # (auto) 0.12 K/uL (0.00-0.50); Eosinophils % (auto) 1.3 %; Hematocrit (blood only) 34.5 % (37.0-47.0); Immature Granulocytes # (auto) 0.06 K/uL (0.01-0.20); Immature Granulocytes % (auto) 0.6 %; Lymphocytes # (auto) 0.78 K/uL (1.20-3.40); Lymphocytes % (auto) 8.2 %; Mean Corpuscular Hemoglobin 32.8 pg (25.0-34.0); Mean Corpuscular Hgb Conc 31.9 g/dL (32.0-36.0); Mean Platelet Volume 9.1 fL (9.4-12.4); Monocytes # (auto) 0.96 K/uL (0.11-0.59); Neutrophils # (auto) 7.62 K/uL (1.40-6.50); Neutrophils % (auto) 79.6 %; Platelet Count 349 K/uL (130-400); RDW Coefficient of Variation 14.1 % (11.5-14.5); RDW Standard Deviation 52.8 fL (36.4-46.3); Red Blood Count 3.35 M/uL (4.20-5.40); White Blood Count 9.57 K/ul (4.8-10.8)
[2023-08-09 07:11] LABS: Calcium 10.3 mg/dl (8.6-10.3); Est GFR (Non-African American) 90.6 ml/min; Magnesium 1.6 mg/dl (1.7-2.4); Potassium 3.9 mmol/L (3.5-5.1)
[2023-08-09] MEDS: FUROSEMIDE 40 MG/4 ML VIAL IV ONE (11:07)
--- NOTE | 2023-08-09 11:35 | XRay Report ---
SINGLE VIEW CHEST CLINICAL HISTORY: Hypoxia. FINDINGS: An AP, portable, upright chest radiograph is compared to study dated 08/07/2023 and correlate d with chest CT dated 05/25/2022 The examination is degraded by portable technique and patient rotati on. The heart is enlarged noting atherosclerotic calcification of the thoracic area. There is pulmona ry vascular congestion an interstitial edema. Small pleural effusions are suspected. Airspace opaciti es are seen in the left mid to lower lung and at the right lung base. No pneumothorax is seen. The sk eletal structures are osteopenic. There are healed left-sided rib fractures. A right shoulder arthrop lasty is in place. Severe chronic deformity of the left proximal humerus is unchanged. IMPRESSION: 1. Cardiomegaly with pulmonary vascular congestion and interstitial edema. 2. Small pleural effusions. 3. Again seen are airspace opacities in the left mid to lower lung at the right lung base. Correlate clinically. Radiographic follow-up to resolution is recommended. ACT 112: Negative or not required by law. Electronically signed by: Moi Coulter M.D. 08/09/2023 11:34 AM
--- NOTE | 2023-08-09 12:20 | Orthopedic Progress Note ---
<Statement entered by Jeison Lowry MD - 08/09/23 14:09> not my patient Date of Service August 09, 2023 Assessment & Plan (1) Closed right fibular fracture: Plan: The patient was educated regarding today's findings. Importance of nonweightbearing on the right leg was discussed with her. She may do transfers from bed to chair. She was encouraged to participate with physical therapy. We will continue to monitor while she is in-house. Follow-up appointment has been made for 08/17 at 2pm to recheck and new imaging. Admission and Anticipated Discharge Date Admission Date: August 07, 2023 Subjective This 73-year-old female is seen today in her room. She has a known right distal fibular fracture. She is complaining of back discomfort today. She feels she needs reposition. She denies any pain in her hips, knees, or ankle. No other complaints at this time. Physical Exam Physical Exam: General: Well-developed, well-nourished, morbidly obese elderly female, in no acute distress. Lying in bed. Alert and conversive. Skin: Warm and dry with good turgor. She has a short leg splint on the right leg. It appears well-positioned. Musculoskeletal: The patient has intact motor function of her knee and toes. Splint was left in place. Neurologic: Gross sensation is intact across each of the digits of the right foot by soft touch. Capillary refill is less than 2 seconds. Results & Data Vital Signs (Past 12 Hours) Vital Signs Temp Pulse Resp BP Pulse Ox O2 Del Method O2 Flow Rate 08/09/23 07:07 37.0 C 80 19 162/84 H 90 High Flow Nasal Cannula 7 08/09/23 03:09 36.9 C 68 19 143/71 H 90 Nasal Cannula 6 08/08/23 23:26 36.4 C L 69 19 125/67 90 Nasal Cannula 6 08/08/23 22:58 Nasal Cannula 5 (1) Closed right fibular fracture Encounter type: initial encounter Fibula location: proximal Fracture morphology: unspecified fracture morphology Qualified Code(s): S82.831A - Other fracture of upper and lower end of right fibula, initial encounter for closed fracture
--- NOTE | 2023-08-09 16:08 | Hospitalist Progress Note ---
Date of Service August 09, 2023 Assessment & Plan (1) Right fibular fracture: Plan: Orthopedic consultation appreciated. No surgical intervention needed. Right lower extremity has been immobilized and elevated. Pain control measures. (2) Acute on chronic diastolic CHF (congestive heart failure): Plan: Lasix diuresis. Monitor intake and output. Serial chest x-ray (3) Closed fracture of left pelvis: Plan: Left superior ramus fracture noted on x-ray. Supportive care. Pain control measures. (4) Fatigue: Plan: Continue OT and PT while hospitalized. (5) Chronic respiratory failure with hypoxia and hypercapnia: Plan: Acute on chronic exacerbation. Currently requiring 7 L of oxygen per nasal cannula. Chronically on 5L NC . Will keep saturation in the 90 to 92% area to prevent further CO2 retention (6) Atelectasis of left lung: Plan: Chronic. Incentive spirometry. Continue pulmonary toilet while hospitalized (7) Uncontrolled type 2 diabetes mellitus with hyperosmolarity, without long- term current use of insulin: Plan: ADA diet. Sliding scale coverage. Lantus dosage uptitrated on August 08. Improved (8) Chronic right-sided congestive heart failure: Plan: Known chronic cor pulmonale. Stable. Continue current medical management (9) Hypertension: Plan: Stable. Continue lisinopril (10) Morbid obesity: Plan: BMI greater than 40. Significant weight loss recommended Plan Anticipate eventual discharge to SNF or [facility] when arrangements are finalized Admission and Anticipated Discharge Date Admission Date: August 07, 2023 Subjective Alert and oriented. She appears to have acute on chronic diastolic CHF by the appearance of the chest x-ray. She is responding nicely so far to parenteral Lasix therapy she is currently requiring 7 L of oxygen and usually uses 5 L of oxygen. Glucose is better today after Lantus dosage uptitrated yesterday, August 08. Case management states placement referrals have been made to [facility] and [facility]. Review of Systems 2 Review of Systems: Constitutional-no fever or chills ENT-no blurred vision, no double vision, no epistaxis, no sore throat Respiratory-no cough, no wheezing, no shortness of breath at rest Cardiac-no palpitations, no chest pain, no syncope GI-no nausea, vomiting, diarrhea, melena, hematochezia -no urinary retention, no urinary incontinence, no dysuria, no hematuria Musculoskeletal-back discomfort from limited ambulation and she does not like the bed. Right lower extremity below the knee has been immobilized Skin-no bruising, no rashes, no pruritus Neuro-no isolated weakness, no paresthesia Psych-no depression, no anxiety Physical Exam 2 Physical Exam: General-alert and oriented x3, no fever, no chills. Morbidly obese HEENT-head atraumatic and normocephalic, pupils equal and reactive to light, extraocular muscles intact Neck-no lymphadenopathy or thyromegaly, trachea midline Chest-diminished breath sounds bilaterally anteriorly. No audible inspiratory rales, wheezing or rhonchi Cardiac-regular rate and rhythm, normal S1 and S2 Abdomen-normal bowel sounds, nontender, no hepatosplenomegaly Extremities-right lower extremity immobilized below the knee. Neuro-cranial nerves II through XII intact, motor and sensory function within normal limits, strength symmetrical, no focal deficits Psych-normal affect, normal mood Results & Data Results & Data Vital Signs (Past 12 Hours) Vital Signs Temp Pulse Pulse Resp BP Pulse Ox O2 Del Method 08/09/23 15:14 106 H 08/09/23 11:13 37.4 C 76 19 124/69 97 High Flow Nasal Cannula 08/09/23 08:00 70 08/09/23 07:07 37.0 C 80 19 162/84 H 90 High Flow Nasal Cannula O2 Flow Rate 08/09/23 15:14 08/09/23 11:13 7 08/09/23 08:00 08/09/23 07:07 7 Laboratory Results 08/09/23 06:02 08/09/23 06:02 PG Care Time/CCT Total # of Minutes Spent Total Time Spent with Patient: Total time spent is greater than 50% in coordination of care (as documented) at patient's floor/unit and/or counseling patient: Coding Level of Care Code 01577 SUB INP/OBS CARE 3/50MIN Diagnoses Right fibular fracture S82.401A Acute on chronic diastolic CHF (congestive heart failure) I50.33 Closed fracture of left pelvis S32.9XXA Fatigue R53.83 Chronic respiratory failure with hypoxia and hypercapnia J96.11; J96.12 Atelectasis of left lung J98.11 Uncontrolled type 2 diabetes mellitus with hyperosmolarity, without long-term current use of insulin E11.00 Chronic right-sided congestive heart failure I50.812 Essential hypertension I10 Hypertension type: essential hypertension Morbid obesity E66.01 (9) Hypertension Hypertension type: essential hypertension Qualified Code(s): I10 - Essential (primary) hypertension
[2023-08-09] MEDS: FUROSEMIDE 40 MG/4 ML VIAL IV SCH (17:06)
[2023-08-10 06:47] LABS: Basophils # (auto) 0.05 K/uL (0.00-0.20); Basophils % (auto) 0.7 %; Eosinophils % (auto) 1.3 %; Hematocrit (blood only) 35.2 % (37.0-47.0); Hemoglobin 11.2 g/dl (12.0-16.0); Immature Granulocytes # (auto) 0.04 K/uL (0.01-0.20); Immature Granulocytes % (auto) 0.5 %; Lymphocytes # (auto) 0.91 K/uL (1.20-3.40); Lymphocytes % (auto) 12.1 %; Mean Corpuscular Hgb Conc 31.8 g/dL (32.0-36.0); Mean Corpuscular Volume 103.8 fL (80.0-100.0); Mean Platelet Volume 9.3 fL (9.4-12.4); Monocytes # (auto) 0.95 K/uL (0.11-0.59); Monocytes % (auto) 12.7 %; Neutrophils # (auto) 5.45 K/uL (1.40-6.50); Neutrophils % (auto) 72.7 %; Platelet Count 322 K/uL (130-400); RDW Coefficient of Variation 14.5 % (11.5-14.5); RDW Standard Deviation 53.8 fL (36.4-46.3); Red Blood Count 3.39 M/uL (4.20-5.40)
[2023-08-10 07:06] LABS: BUN Creatinine Ratio 42.3 (10-20); Calcium 10.4 mg/dl (8.6-10.3); Creatinine Clr Calc Pharmacy 79.9 ml/min; Est GFR (African American) 98.6 ml/min; Est GFR (Non-African American) 85.1 ml/min; Magnesium 1.4 mg/dl (1.7-2.4); Potassium 3.5 mmol/L (3.5-5.1)
--- NOTE | 2023-08-10 09:27 | Orthopedic Progress Note ---
Date of Service August 10, 2023 Assessment & Plan (1) Closed right fibular fracture: Plan: Patient will continue to remain in the splint. We educated patient the importance of maintaining nonweightbearing on the right leg. She was advised if she sitting upright or transferring from the bed to the chair or into the wheelchair she needs to maintain not putting weight through the right lower extremity. She was encouraged to continue participating with therapies. She will follow-up in our office as an outpatient after discussion with Dr. Root on 08/09/2023 anticipate imaging outside of the splint and transitioning to a short leg cast. Her appointment is scheduled on 08/17/2023. This will be modified if she remaind inpatient or patient's needs change. Present on Admission?: Yes Admission and Anticipated Discharge Date Admission Date: August 07, 2023 Subjective Patient is anticipated to be transported to [facility] for rehabilitation. We will continue with wound care there patient is a 73-year-old female who was seen bedside this a.m. She is status post splinting on 08/07 for a proximal and distal fibular fracture on the right lower extremity. She was seen bedside this a.m. She is alert and oriented x 3 she is pleasant and conversive. She states that she is not having any pain in the right ankle or leg. She denies any pain in her left hip or right hip. She states the splint is comfortable denies any rubbing. She states "the splint feels wonderful." She denies any fever, chills, chest pain or shortness of breath. She denies any calf pain. Review of Systems Review of Systems: Please refer to HPI Physical Exam Physical Exam: General:Patient is sitting upright in bed alert and oriented x 3. No acute distress nasal cannula in place. Integumentary/musculoskeletal: Splint is in place over the right lower extremity exposed toes are normal in color and temperature. She has sensation to toes. She is able to freely wiggle the toes. Splint has no signs of rubbing distally or proximally.She is able to do active straight leg raise without assistance. She can freely move the knee without discomfort. She tolerates active assist hip internal and external rotation bilateral hips. Capillary refills less than 2 seconds on the right lower extremity. Results & Data Vital Signs (Past 12 Hours) Vital Signs Temp Pulse Pulse Resp BP Pulse Ox Pulse Ox 08/10/23 07:33 74 08/10/23 07:19 78 22 96 08/10/23 07:05 36.3 C L 70 18 119/76 96 08/10/23 03:50 36.6 C 81 18 119/78 95 08/10/23 00:00 92 08/10/23 00:00 22 92 08/09/23 23:14 36.6 C 71 18 132/86 97 O2 Del Method O2 Del Method O2 Flow Rate 08/10/23 07:33 08/10/23 07:19 Nasal Cannula 7 08/10/23 07:05 Nasal Cannula 5 08/10/23 03:50 Room Air 08/10/23 00:00 High Flow Nasal Cannula 08/10/23 00:00 High Flow Nasal Cannula 7 08/09/23 23:14 Nasal Cannula 7 Laboratory Results 08/10/23 08/10/23 08/09/23 Range/Units 07:06 05:21 20:19 WBC 7.50 (4.8-10.8) K/ul RBC 3.39 L (4.20-5.40) M/uL Hgb 11.2 L (12.0-16.0) g/dl Hct 35.2 L (37.0-47.0) % MCV 103.8 H (80.0-100.0) fL MCH 33.0 (25.0-34.0) pg MCHC 31.8 L (32.0-36.0) g/dL RDW Std Deviation 53.8 H (36.4-46.3) fL RDW Coeff of Vikas 14.5 (11.5-14.5) % Plt Count 322 (130-400) K/uL MPV 9.3 L (9.4-12.4) fL Immature Gran % (Auto) 0.5 % Neut % (Auto) 72.7 % Lymph % (Auto) 12.1 % Sharkey % (Auto) 12.7 % Eos % (Auto) 1.3 % Baso % (Auto) 0.7 % Neut # (Auto) 5.45 (1.40-6.50) K/uL Lymph # (Auto) 0.91 L (1.20-3.40) K/uL Sharkey # (Auto) 0.95 H (0.11-0.59) K/uL Eos # (Auto) 0.10 (0.00-0.50) K/uL Baso # (Auto) 0.05 (0.00-0.20) K/uL Immature Gran # (Auto) 0.04 (0.01-0.20) K/uL Sodium 138 (136-145) mmol/L Potassium 3.5 (3.5-5.1) mmol/L Chloride 92 L (98-107) mmol/L Carbon Dioxide 36 H (21-32) mmol/L Anion Gap 10 (3-11) BUN 30 H (6-23) mg/dl Creatinine 0.71 (0.6-1.2) mg/dl Est Cr Clr Drug Dosing 79.9 ml/min Est GFR ( Amer) 98.6 ml/min Est GFR (Non-Af Amer) 85.1 ml/min BUN/Creatinine Ratio 42.3 H (10-20) Glucose 180 H (70-99(Fasting)) mg/dl POC Glucose 180 H 219 H (70-99) mg/dl Calcium 10.4 H (8.6-10.3) mg/dl Magnesium 1.4 L (1.7-2.4) mg/dl 08/09/23 08/09/23 Range/Units 16:08 11:09 WBC (4.8-10.8) K/ul RBC (4.20-5.40) M/uL Hgb (12.0-16.0) g/dl Hct (37.0-47.0) % MCV (80.0-100.0) fL MCH (25.0-34.0) pg MCHC (32.0-36.0) g/dL RDW Std Deviation (36.4-46.3) fL RDW Coeff of Vikas (11.5-14.5) % Plt Count (130-400) K/uL MPV (9.4-12.4) fL Immature Gran % (Auto) % Neut % (Auto) % Lymph % (Auto) % Sharkey % (Auto) % Eos % (Auto) % Baso % (Auto) % Neut # (Auto) (1.40-6.50) K/uL Lymph # (Auto) (1.20-3.40) K/uL Sharkey # (Auto) (0.11-0.59) K/uL Eos # (Auto) (0.00-0.50) K/uL Baso # (Auto) (0.00-0.20) K/uL Immature Gran # (Auto) (0.01-0.20) K/uL Sodium (136-145) mmol/L Potassium (3.5-5.1) mmol/L Chloride (98-107) mmol/L Carbon Dioxide (21-32) mmol/L Anion Gap (3-11) BUN (6-23) mg/dl Creatinine (0.6-1.2) mg/dl Est Cr Clr Drug Dosing ml/min Est GFR ( Amer) ml/min Est GFR (Non-Af Amer) ml/min BUN/Creatinine Ratio (10-20) Glucose (70-99(Fasting)) mg/dl POC Glucose 218 H 198 H (70-99) mg/dl Calcium (8.6-10.3) mg/dl Magnesium (1.7-2.4) mg/dl Diagnostic Findings Chest X-Ray 08/09/23 10:40 SINGLE VIEW CHEST CLINICAL HISTORY: Hypoxia. FINDINGS: An AP, portable, upright chest radiograph is compared to study dated 08/07/2023 and correlated with chest CT dated 05/25/2022 The examination is degraded by portable technique and patient rotation. The heart is enlarged noting atherosclerotic calcification of the thoracic area. There is pulmonary vascular congestion an interstitial edema. Small pleural effusions are suspected. Airspace opacities are seen in the left mid to lower lung and at the right lung base. No pneumothorax is seen. The skeletal structures are osteopenic. There are healed left-sided rib fractures. A right shoulder arthroplasty is in place. Severe chronic deformity of the left proximal humerus is unchanged. IMPRESSION: 1. Cardiomegaly with pulmonary vascular congestion and interstitial edema. 2. Small pleural effusions. 3. Again seen are airspace opacities in the left mid to lower lung at the right lung base. Correlate clinically. Radiographic follow-up to resolution is recommended. ACT 112: Negative or not required by law. Electronically signed by: Moi Coulter M.D. 08/09/2023 11:34 AM (1) Closed right fibular fracture Encounter type: initial encounter Fibula location: proximal Fracture morphology: unspecified fracture morphology Qualified Code(s): S82.831A - Other fracture of upper and lower end of right fibula, initial encounter for closed fracture
[2023-08-10] MEDS: LANTUS PER UNIT CHARGE SQ ONE (12:06)
--- NOTE | 2023-08-10 16:05 | Hospitalist Progress Note ---
Date of Service August 10, 2023 Assessment & Plan (1) Right fibular fracture: Plan: Orthopedic consultation appreciated. No surgical intervention needed. Right lower extremity has been immobilized and elevated. Pain control measures. (2) Acute on chronic diastolic CHF (congestive heart failure): Plan: Good response to Lasix diuresis. Monitor intake and output. Repeat chest x-ray again tomorrow, August 11 (3) Upper GI bleed: Plan: She has developed melena and stools are Hemoccult positive. Lovenox has been discontinued. GI consultation has been requested. (4) Closed fracture of left pelvis: Plan: Left superior ramus fracture noted on x-ray. Supportive care. Pain control measures. (5) Fatigue: Plan: Continue OT and PT while hospitalized. (6) Chronic respiratory failure with hypoxia and hypercapnia: Plan: Acute on chronic exacerbation. Probably due to exacerbation of CHF. Oxygen is being titrated down to her usual 5 L/mi . Will keep saturation in the 90 to 92% area to prevent further CO2 retention (7) Atelectasis of left lung: Plan: Chronic. Incentive spirometry. Continue pulmonary toilet while hospitalized (8) Uncontrolled type 2 diabetes mellitus with hyperosmolarity, without long- term current use of insulin: Plan: ADA diet. Sliding scale coverage. Lantus dosage uptitrated on August 08 and again today, August 09. Improved (9) Chronic right-sided congestive heart failure: Plan: Known chronic cor pulmonale. Stable. Continue current medical management (10) Hypertension: Plan: Stable. Continue lisinopril (11) Morbid obesity: Plan: BMI greater than 40. Significant weight loss recommended Plan Anticipate eventual discharge to SNF or [facility] when arrangements are finalized Admission and Anticipated Discharge Date Admission Date: August 07, 2023 Subjective Good diuretic response to parenteral Lasix. She feels better. Will repeat chest x-ray again tomorrow, August 11. She has developed melena stools and fecal occult blood is positive. Lovenox has been discontinued and gastroenterology consultation requested. Hemoglobin is currently stable. Will follow. Glucose is improving and Lantus continues to be uptitrated. Magnesium replacement continues. Review of Systems 2 Review of Systems: Constitutional-no fever or chills ENT-no blurred vision, no double vision, no epistaxis, no sore throat Respiratory-no cough, no wheezing, no shortness of breath at rest Cardiac-no palpitations, no chest pain, no syncope GI-no nausea, vomiting, diarrhea, hematochezia. She has described melenic stools over the past 24 hours -no urinary retention, no urinary incontinence, no dysuria, no hematuria Musculoskeletal-back discomfort from limited ambulation and she does not like the bed. Right lower extremity below the knee has been immobilized Skin-no bruising, no rashes, no pruritus Neuro-no isolated weakness, no paresthesia Psych-no depression, no anxiety Physical Exam 2 Physical Exam: General-alert and oriented x3, no fever, no chills. Morbidly obese HEENT-head atraumatic and normocephalic, pupils equal and reactive to light, extraocular muscles intact Neck-no lymphadenopathy or thyromegaly, trachea midline Chest-diminished breath sounds bilaterally anteriorly. No audible inspiratory rales, wheezing or rhonchi Cardiac-regular rate and rhythm, normal S1 and S2 Abdomen-normal bowel sounds, nontender, no hepatosplenomegaly Extremities-right lower extremity immobilized below the knee. Neuro-cranial nerves II through XII intact, motor and sensory function within normal limits, strength symmetrical, no focal deficits Psych-normal affect, normal mood Results & Data Results & Data Vital Signs (Past 12 Hours) Vital Signs Temp Pulse Pulse Resp BP Pulse Ox O2 Del Method 08/10/23 14:50 36.6 C 72 18 102/63 96 Nasal Cannula 08/10/23 11:52 36.6 C 83 18 102/58 L 92 Nasal Cannula 08/10/23 08:00 72 08/10/23 07:33 74 08/10/23 07:26 High Flow Nasal Cannula 08/10/23 07:19 78 22 96 Nasal Cannula 08/10/23 07:05 36.3 C L 70 18 119/76 96 Nasal Cannula O2 Flow Rate 08/10/23 14:50 5 08/10/23 11:52 5 08/10/23 08:00 08/10/23 07:33 08/10/23 07:26 7 08/10/23 07:19 7 08/10/23 07:05 5 Laboratory Results 08/10/23 05:21 08/10/23 05:21 PG Care Time/CCT Total # of Minutes Spent Total Time Spent with Patient: Total time spent is greater than 50% in coordination of care (as documented) at patient's floor/unit and/or counseling patient: Coding Level of Care Code 66537 SUB INP/OBS CARE 50MIN Diagnoses Right fibular fracture S82.401A Acute on chronic diastolic CHF (congestive heart failure) I50.33 Upper GI bleed K92.2 Closed fracture of left pelvis S32.9XXA Fatigue R53.83 Chronic respiratory failure with hypoxia and hypercapnia J96.11; J96.12 Atelectasis of left lung J98.11 Uncontrolled type 2 diabetes mellitus with hyperosmolarity, without long-term current use of insulin E11.00 Chronic right-sided congestive heart failure I50.812 Essential hypertension I10 Hypertension type: essential hypertension Morbid obesity E66.01 (10) Hypertension Hypertension type: essential hypertension Qualified Code(s): I10 - Essential (primary) hypertension
[2023-08-10] MEDS: PANTOprazole 40 MG TAB PO SCH (18:33)
--- NOTE | 2023-08-11 07:37 | XRay Report ---
SINGLE VIEW CHEST CLINICAL HISTORY: Congestive heart failure. COPD FINDINGS: An AP, portable, upright chest radiograph is compared to study dated 08/09/2023 and correlate d with chest CT dated 05/25/2022 The examination is degraded by portable technique and apical lordoti c positioning. The heart is enlarged noting atherosclerotic calcification of the thoracic area. There is pulmonary vascular congestion and mild interstitial edema. Small pleural effusions are suspected. Airspace opacities are again seen in the left mid to lower lung and at the right lung base. No pneum othorax is seen. The skeletal structures are osteopenic. There are healed left-sided rib fractures. A right shoulder arthroplasty is in place. Severe chronic deformity of the left proximal humerus/shoul khoi is unchanged. IMPRESSION: 1. Cardiomegaly with pulmonary vascular congestion and mild interstitial edema. 2. Small pleural effusions. 3. Again seen are airspace opacities in the left mid to lower lung at the right lung base. Correlate clinically. Radiographic follow-up to resolution is recommended. ACT 112: Negative or not required by law. Electronically signed by: Moi Coulter M.D. 08/11/2023 7:36 AM
[2023-08-11 07:41] LABS: Basophils # (auto) 0.06 K/uL (0.00-0.20); Basophils % (auto) 0.6 %; Eosinophils % (auto) 2.2 %; Hematocrit (blood only) 35.2 % (37.0-47.0); Hemoglobin 11.3 g/dl (12.0-16.0); Immature Granulocytes # (auto) 0.05 K/uL (0.01-0.20); Immature Granulocytes % (auto) 0.5 %; Lymphocytes # (auto) 1.02 K/uL (1.20-3.40); Mean Corpuscular Hemoglobin 32.9 pg (25.0-34.0); Mean Corpuscular Hgb Conc 32.1 g/dL (32.0-36.0); Mean Corpuscular Volume 102.6 fL (80.0-100.0); Monocytes # (auto) 1.08 K/uL (0.11-0.59); Monocytes % (auto) 11.7 %; Neutrophils # (auto) 6.84 K/uL (1.40-6.50); Platelet Count 335 K/uL (130-400); RDW Coefficient of Variation 14.6 % (11.5-14.5); RDW Standard Deviation 54.4 fL (36.4-46.3); Red Blood Count 3.43 M/uL (4.20-5.40); White Blood Count 9.25 K/ul (4.8-10.8)
[2023-08-11 08:13] LABS: BUN Creatinine Ratio 50.7 (10-20); Calcium 10.1 mg/dl (8.6-10.3); Est GFR (African American) 95.4 ml/min; Est GFR (Non-African American) 82.3 ml/min; Potassium 3.5 mmol/L (3.5-5.1)
[2023-08-11] MEDS: LANTUS PER UNIT CHARGE SQ SCH (12:37)
--- NOTE | 2023-08-11 14:20 | Hospitalist Progress Note ---
Date of Service August 11, 2023 Assessment & Plan (1) Right fibular fracture: Plan: Orthopedic consultation appreciated. No surgical intervention needed. Right lower extremity has been immobilized and elevated. Pain control measures. (2) Acute on chronic diastolic CHF (congestive heart failure): Plan: Good response to Lasix diuresis. Monitor intake and output. Repeat chest x-ray done today, August 11, looks better. (3) Upper GI bleed: Plan: She has developed melena and stools are Hemoccult positive. Lovenox has been discontinued. GI consultation has been requested but refused by the patient. She is not willing to undergo endoscopic evaluation and states she has had intermittent melena for quite some time. The is present and is aware. (4) Closed fracture of left pelvis: Plan: Left superior ramus fracture noted on x-ray. Supportive care. Pain control measures. (5) Fatigue: Plan: Continue OT and PT while hospitalized. (6) Chronic respiratory failure with hypoxia and hypercapnia: Plan: Acute on chronic exacerbation. Probably due to exacerbation of CHF. Oxygen is being titrated down to her usual 5 L/mi . Will keep saturation in the 90 to 92% area to prevent further CO2 retention (7) Atelectasis of left lung: Plan: Chronic. Incentive spirometry. Continue pulmonary toilet while hospitalized (8) Uncontrolled type 2 diabetes mellitus with hyperosmolarity, without long- term current use of insulin: Plan: ADA diet. Sliding scale coverage. Lantus dosage uptitrated on August 08 and August 09. Improved (9) Chronic right-sided congestive heart failure: Plan: Known chronic cor pulmonale. Stable. Continue current medical management (10) Hypertension: Plan: Stable. Continue lisinopril (11) Morbid obesity: Plan: BMI greater than 40. Significant weight loss recommended Plan Hopeful discharge to [facility] early in the week. Admission and Anticipated Discharge Date Admission Date: August 07, 2023 Subjective Alert and oriented. She has refused GI consultation since she is not willing to undergo upper endoscopy or colonoscopy at this time. The risk is probably just too high. Lovenox subcutaneous has been discontinued. She and her both state that she has had intermittent melena for quite some time. Primary concern at this point is her parenteral iron replacement that she receives as an outpatient. This will be given on Sunday. Portable chest x-ray done today, August 11, looks better. Continuing to wean oxygen down to her usual 5 L/min. Glucose is better after Lantus up titration on August 08 and August 09. Anticipate eventual discharge to [facility] early next week Review of Systems 2 Review of Systems: Constitutional-no fever or chills ENT-no blurred vision, no double vision, no epistaxis, no sore throat Respiratory-no cough, no wheezing, no shortness of breath at rest Cardiac-no palpitations, no chest pain, no syncope GI-no nausea, vomiting, diarrhea, hematochezia. She has described melenic stools over the past 24 hours -no urinary retention, no urinary incontinence, no dysuria, no hematuria Musculoskeletal-back discomfort from limited ambulation and she does not like the bed. Right lower extremity below the knee has been immobilized Skin-no bruising, no rashes, no pruritus Neuro-no isolated weakness, no paresthesia Psych-no depression, no anxiety Physical Exam 2 Physical Exam: General-alert and oriented x3, no fever, no chills. Morbidly obese HEENT-head atraumatic and normocephalic, pupils equal and reactive to light, extraocular muscles intact Neck-no lymphadenopathy or thyromegaly, trachea midline Chest-diminished breath sounds bilaterally anteriorly. No audible inspiratory rales, wheezing or rhonchi Cardiac-regular rate and rhythm, normal S1 and S2 Abdomen-normal bowel sounds, nontender, no hepatosplenomegaly Extremities-right lower extremity immobilized below the knee. Neuro-cranial nerves II through XII intact, motor and sensory function within normal limits, strength symmetrical, no focal deficits Psych-normal affect, normal mood Results & Data Results & Data Vital Signs (Past 12 Hours) Vital Signs Temp Pulse Pulse Resp BP Pulse Ox O2 Del Method 08/11/23 11:57 37.0 C 77 126/71 92 Nasal Cannula 08/11/23 07:35 88 22 93 Nasal Cannula 08/11/23 07:23 36.7 C 75 20 128/78 90 Nasal Cannula 08/11/23 07:14 High Flow Nasal Cannula 08/11/23 07:01 98 H 08/11/23 04:00 Nasal Cannula 08/11/23 03:42 36.8 C 75 18 96/59 L 92 High Flow Nasal Cannula O2 Flow Rate 08/11/23 11:57 08/11/23 07:35 7 08/11/23 07:23 08/11/23 07:14 7 08/11/23 07:01 08/11/23 04:00 08/11/23 03:42 7 Laboratory Results 08/11/23 07:06 08/11/23 07:06 PG Care Time/CCT Total # of Minutes Spent Total Time Spent with Patient: Total time spent is greater than 50% in coordination of care (as documented) at patient's floor/unit and/or counseling patient: Coding Level of Care Code 42301 SUB INP/OBS CARE 3/50MIN Diagnoses Right fibular fracture S82.401A Acute on chronic diastolic CHF (congestive heart failure) I50.33 Upper GI bleed K92.2 Closed fracture of left pelvis S32.9XXA Fatigue R53.83 Chronic respiratory failure with hypoxia and hypercapnia J96.11; J96.12 Atelectasis of left lung J98.11 Uncontrolled type 2 diabetes mellitus with hyperosmolarity, without long-term current use of insulin E11.00 Chronic right-sided congestive heart failure I50.812 Essential hypertension I10 Hypertension type: essential hypertension Morbid obesity E66.01 (10) Hypertension Hypertension type: essential hypertension Qualified Code(s): I10 - Essential (primary) hypertension
[2023-08-11] MEDS ORDERED: ONDANSETRON INJ 2 MG/ML 2 ML VIAL IV PRN (18:29)
[2023-08-11] MEDS: traMADol HCL 50 MG TABLET PO PRN (19:25)
[2023-08-12 07:01] LABS: Basophils # (auto) 0.05 K/uL (0.00-0.20); Basophils % (auto) 0.4 %; Eosinophils # (auto) 0.23 K/uL (0.00-0.50); Hematocrit (blood only) 37.9 % (37.0-47.0); Hemoglobin 11.9 g/dl (12.0-16.0); Immature Granulocytes # (auto) 0.06 K/uL (0.01-0.20); Immature Granulocytes % (auto) 0.5 %; Lymphocytes # (auto) 0.99 K/uL (1.20-3.40); Lymphocytes % (auto) 8.8 %; Mean Corpuscular Hemoglobin 32.6 pg (25.0-34.0); Mean Corpuscular Hgb Conc 31.4 g/dL (32.0-36.0); Mean Corpuscular Volume 103.8 fL (80.0-100.0); Monocytes # (auto) 1.06 K/uL (0.11-0.59); Monocytes % (auto) 9.4 %; Neutrophils # (auto) 8.92 K/uL (1.40-6.50); Neutrophils % (auto) 78.9 %; Platelet Count 367 K/uL (130-400); RDW Coefficient of Variation 14.6 % (11.5-14.5); RDW Standard Deviation 54.9 fL (36.4-46.3); Red Blood Count 3.65 M/uL (4.20-5.40); White Blood Count 11.31 K/ul (4.8-10.8)
[2023-08-12 07:28] LABS: BUN Creatinine Ratio 48.3 (10-20); Calcium 9.9 mg/dl (8.6-10.3); Creatinine Clr Calc Pharmacy 61.2 ml/min; Est GFR (Non-African American) 64.7 ml/min; Potassium 3.5 mmol/L (3.5-5.1)
[2023-08-12] MEDS: IRON SUCROSE 400 MG in SODIUM CHLORIDE 0.9% 250 ML IV ONE (11:08)
[2023-08-12 14:51] LABS: Allen Test Pos (Pos); Base Excess ABG 12.8 mEq/L (-9-1.8); HCO3 ABG 40 mmol/L (19-24); Oxygen Saturation ABG 92.6 % (90-95); PCO2 ABG 60 mmHg (35-46); PO2 ABG 67 mmHg (80-95); pH ABG 7.43 (7.35-7.45)
--- NOTE | 2023-08-12 14:54 | XCELERA ---
[id number] \\[email or web address]\[id number]
--- NOTE | 2023-08-12 15:10 | Hospitalist Progress Note ---
Date of Service August 12, 2023 Assessment & Plan (1) Toxic encephalopathy: Plan: Supportive care. All CRIMINAL INTELLIGENCE ANALYST depressants have been placed on hold (2) Right fibular fracture: Plan: Orthopedic consultation appreciated. No surgical intervention needed. Right lower extremity has been immobilized and elevated. Pain control measures. (3) Acute on chronic diastolic CHF (congestive heart failure): Plan: Good response to Lasix diuresis. Monitor intake and output. Chest x-ray will be repeated again tomorrow, August 13 (4) Upper GI bleed: Plan: She has developed melena and stools are Hemoccult positive. Lovenox has been discontinued. GI consultation has been requested but refused by the patient. She is not willing to undergo endoscopic evaluation and states she has had intermittent melena for quite some time. The is present and is aware. Fortunately, hemoglobin level is stable (5) Closed fracture of left pelvis: Plan: Left superior ramus fracture noted on x-ray. Supportive care. Pain control measures. (6) Fatigue: Plan: Continue OT and PT while hospitalized. (7) Chronic respiratory failure with hypoxia and hypercapnia: Plan: Acute on chronic exacerbation. Probably due to exacerbation of CHF. Oxygen is being titrated down to her usual 5 L/mi . Currently she is requiring 6 L/min. Will keep saturation in the 90 to 92% area to prevent further CO2 retention (8) Atelectasis of left lung: Plan: Chronic. Incentive spirometry. Continue pulmonary toilet while hospitalized (9) Uncontrolled type 2 diabetes mellitus with hyperosmolarity, without long- term current use of insulin: Plan: ADA diet. Sliding scale coverage. Lantus dosage uptitrated on August 08 and August 09. Improved (10) Chronic right-sided congestive heart failure: Plan: Known chronic cor pulmonale. Stable. Continue current medical management (11) Hypertension: Plan: Stable. Continue lisinopril (12) Morbid obesity: Plan: BMI greater than 40. Significant weight loss recommended Plan Hopeful discharge to [facility] early in the week. Admission and Anticipated Discharge Date Admission Date: August 07, 2023 Subjective She was alert and oriented at the time of my rounds earlier today but nursing staff now says she is somewhat lethargic. ABGs reveal baseline pCO2 elevation which is compensated and not likely to be the acute cause. This probably represents a toxic encephalopathy from her medications. All CRIMINAL INTELLIGENCE ANALYST affecting medications have been discontinued. Parenteral iron replacement ordered today, August 12. Cardiac echo report is pending. She has continued good urine output from IV Lasix. Oxygen requirement has been tapered down to 6 L, slightly more than her usual 5 L. Probable placement at [facility] tomorrow, August 13. Will repeat portable chest x-ray again tomorrow, August 13. Cardiac echo report is pending. Review of Systems 2 Review of Systems: Constitutional-no fever or chills ENT-no blurred vision, no double vision, no epistaxis, no sore throat Respiratory-no cough, no wheezing, no shortness of breath at rest Cardiac-no palpitations, no chest pain, no syncope GI-no nausea, vomiting, diarrhea, hematochezia. She has described melenic stools over the past 24 hours -no urinary retention, no urinary incontinence, no dysuria, no hematuria Musculoskeletal-back discomfort from limited ambulation and she does not like the bed. Right lower extremity below the knee has been immobilized Skin-no bruising, no rashes, no pruritus Neuro-no isolated weakness, no paresthesia Psych-no depression, no anxiety Physical Exam 2 Physical Exam: General-alert and oriented x3, no fever, no chills. Morbidly obese HEENT-head atraumatic and normocephalic, pupils equal and reactive to light, extraocular muscles intact Neck-no lymphadenopathy or thyromegaly, trachea midline Chest-diminished breath sounds bilaterally anteriorly. No audible inspiratory rales, wheezing or rhonchi Cardiac-regular rate and rhythm, normal S1 and S2 Abdomen-normal bowel sounds, nontender, no hepatosplenomegaly Extremities-right lower extremity immobilized below the knee. Neuro-cranial nerves II through XII intact, motor and sensory function within normal limits, strength symmetrical, no focal deficits Psych-normal affect, normal mood Results & Data Results & Data Vital Signs (Past 12 Hours) Vital Signs Temp Pulse Resp BP Pulse Ox O2 Del Method O2 Flow Rate 08/12/23 11:19 36.7 C 74 18 115/54 L 94 Nasal Cannula 08/12/23 08:00 Nasal Cannula 6 08/12/23 07:40 36.6 C 71 18 98/53 L 93 Nasal Cannula 08/12/23 07:30 65 20 91 08/12/23 03:45 36.4 C L 65 18 102/63 93 Room Air Laboratory Results 08/12/23 06:38 08/12/23 06:38 PG Care Time/CCT Total # of Minutes Spent Total Time Spent with Patient: Total time spent is greater than 50% in coordination of care (as documented) at patient's floor/unit and/or counseling patient: Coding Level of Care Code 02724 SUB INP/OBS CARE 3/50MIN Diagnoses Toxic encephalopathy G92.9 Right fibular fracture S82.401A Acute on chronic diastolic CHF (congestive heart failure) I50.33 Upper GI bleed K92.2 Closed fracture of left pelvis S32.9XXA Fatigue R53.83 Chronic respiratory failure with hypoxia and hypercapnia J96.11; J96.12 Atelectasis of left lung J98.11 Uncontrolled type 2 diabetes mellitus with hyperosmolarity, without long-term current use of insulin E11.00 Chronic right-sided congestive heart failure I50.812 Essential hypertension I10 Hypertension type: essential hypertension Morbid obesity E66.01 (11) Hypertension Hypertension type: essential hypertension Qualified Code(s): I10 - Essential (primary) hypertension
[2023-08-12] MEDS: ACETAMINOPHEN 325 MG TAB PO PRN (16:20)
--- NOTE | 2023-08-13 07:10 | XRay Report ---
XR chest 1V portable HISTORY: Shortness of breath. COMPARISON: Chest 08/11/2023. FINDINGS: Interval development of near complete opacification of the left hemithorax with left medias tinal shift consistent with volume loss. This suggests near complete collapse of the left lung possib ly due to mucous plugging. Calcifications within the aortic knob. Interstitial thickening within the right lung persists and may represent congestive change. Right midlung zone linear densities favor fleming bsegmental atelectasis. There is a right shoulder prosthesis. No acute fractures. No pneumothorax. IMPRESSION: Interval development of near complete opacification of the left hemithorax with left mediastinal shif t consistent with volume loss. This suggests near complete collapse of the left lung possibly due to mucous plugging. Bronchoscopy recommended for further evaluation. This report was called/faxed to the referring physician following dictation. ACT 112: Negative or not required by law. Electronically signed by: Mauri Guzman M.D. 08/13/2023 7:08 AM
[2023-08-13 07:53] LABS: Basophils # (auto) 0.04 K/uL (0.00-0.20); Basophils % (auto) 0.4 %; Eosinophils # (auto) 0.18 K/uL (0.00-0.50); Eosinophils % (auto) 1.8 %; Hematocrit (blood only) 35.5 % (37.0-47.0); Immature Granulocytes # (auto) 0.06 K/uL (0.01-0.20); Immature Granulocytes % (auto) 0.6 %; Lymphocytes # (auto) 0.87 K/uL (1.20-3.40); Lymphocytes % (auto) 8.6 %; Mean Corpuscular Hemoglobin 32.6 pg (25.0-34.0); Mean Corpuscular Volume 105.3 fL (80.0-100.0); Mean Platelet Volume 9.3 fL (9.4-12.4); Monocytes # (auto) 0.96 K/uL (0.11-0.59); Monocytes % (auto) 9.4 %; Neutrophils # (auto) 8.06 K/uL (1.40-6.50); Neutrophils % (auto) 79.2 %; Platelet Count 329 K/uL (130-400); RDW Coefficient of Variation 14.7 % (11.5-14.5); Red Blood Count 3.37 M/uL (4.20-5.40); White Blood Count 10.17 K/ul (4.8-10.8)
--- NOTE | 2023-08-13 08:34 | Pulmonary Consultation ---
Date of Consultation August 13, 2023 Assessment & Plan (1) Atelectasis of left lung: (2) Acute on chronic respiratory failure with hypoxia and hypercapnia: (3) Mucoid impaction of bronchi: (4) Morbid obesity: (5) Generalized weakness: Plan IMPRESSION: 73-year-old female with complex past medical history who presents with worsening atelectasis of the LEFT-sided lung with near collapse and acute on chronic hypoxic respiratory failure with hypercapnia. RECOMMENDATIONS: 1. LEFT lung collapse - In the setting of severe atelectasis with likely mucous plugging. On review of patient's records, this has happened previously and she responded favorably to bronchoscopy. Patient is adamantly refusing bronchoscopy at this point. While she is able to answer questions relatively appropriately, I am uncertain if this represents the patient's ability to make complete decisions for herself. Will reach out to the patient's family to discuss this moving forward. Regardless, she was eating breakfast when she was assessed so we would defer bronchoscopy today at this time. At this point, we will add Mucomyst in addition to CoughAssist. Would encourage utilization of BiPAP as well. Continue with hypertonic saline nebs. 0910 -spoke to the patient's daughter, Raisa Knapp. Provided update. She will speak to her mother about signs of respiratory therapies and would be in agreement with bronchoscopic evaluation if deemed necessary in the event of worsening decline in respiratory status. 2. Acute on chronic respiratory failure with hypoxia and hypercapnia - In the setting of atelectasis with LEFT lung collapse. Patient would benefit from ongoing BiPAP therapy as previously written during prior hospitalization. Unfortunately, patient is declining at this point. Patient is experiencing a degree of hypercapnia which is likely multifactorial in the morbidly obese patient with decreased ventilatory function in the setting of severe atelectasis. Would encourage ongoing BiPAP use as well as aggressive chest PT. 3. Mucoid impaction - Patient likely with mucoid impaction of the LEFT bronchi as noted by change in imaging and with previous results. Again, aggressive chest PT as above. 4. Morbid obesity - Unfortunately this is negatively affecting the patient's respiratory status including her ventilatory function. 5. Generalized weakness - Continue workup per primary service. Thank you for allowing us to participate in the care of this patient. We will continue to follow along while hospitalized. Supervising Physician Co-Signing Physician Notes I saw and evaluated the patient with Onel Stanley PA-C, and agree with findings and plan as documented in the note. 73-year-old female with chronic hypoxic respiratory failure, CARLA was admitted to the hospital for shortness of breath On chest x-ray today it was found that the patient has collapse of the left side of the lung. At the time of examination patient was on BiPAP 10/5, 70%. She was breathing in the mid to high 20s. Saturation was 95-96%. ABG was done right prior to putting her on BiPAP pH was 7.45, pO2 of 88 on 15 L oxygen. Constitutional: Respiratory distress HEENT: EOMI, PERRLA Respiratory system: Decreased air entry on the left side, no wheeze, no rhonchi, mild crackles bilaterally CVS: S1-S2 positive, no murmurs or gallops Abdomen: Soft, nontender, nondistended, positive bowel sounds x4, obese Extremities: +2 pulses bilaterally radialis/ dorsalis pedis, no cyanosis, +1 pitting edema left lower extremity, right lower extremity in splint Neuro: Awake, oriented to only self Psych: Restless mood and affect G/U: Positive Deleon Plan: Patient will benefit from bronchoscopy to clear the mucous plug. Patient personally does not want any procedures done. Patient's daughter was reached out and she stated she is going to speak with her mom/patient Once the patient has been comes in, I will try to speak with him personally as well regarding goals of care In the interim continue with nebulized N-acetylcysteine, nebulized hypertonic saline along with DuoNebs. Flutter valve, chest PT Will consider CoughAssist if need be Case was discussed with RN, RT at bedside Patient did have breakfast in the morning. If the patient's family do understand and agree with bronchoscopy we will try to do later today. Keep the patient n.p.o. Please note the above document was generated using voice recognition software. It may contain grammatical, syntax or spelling errors.Any formal questions or concerns about the content, text or information contained within the body of this dictation should be directly addressed to the provider for clarification. History of Present Illness Reason for Consultation: left lung whiteout Requesting Physician: Dr. Osborne Attending Physician: Nathaniel Osborne MD History of Present Illness Patient is a 73-year-old female with a complex past medical history including subdural hematoma, subarachnoid hemorrhage, cor pulmonale, history of compression fractures, uncontrolled type 2 diabetes, heart failure with preserved ejection fraction pressure ulcers, COPD, and chronic respiratory failure with hypoxia on supplemental oxygen daily. The patient was admitted on 08/07/2023 with generalized weakness and RIGHT tibial fracture in the setting of ground-level fall. Patient was noted to have atelectasis of the LEFT-sided lung during time of admission. Unfortunately, this has progressed and recent chest x-ray shows collapse of the LEFT-sided lung field. Patient is now requiring 7 L nasal cannula. She has been refusing BiPAP and chest percussion vest. Upon evaluation of the patient in room 2441, she is awake and alert. She seems slightly confused with small details, but overall cannot provide history and insight. She reports that she feels poorly in general. She offers no specific complaints. We did review her breathing which she does not feel is any worse. We discussed utilizing therapies which she is not interested in. We discussed bronchoscopy which she declines at this time. She offers no other specific complaints. Allergies Allergy/AdvReac Type Severity Reaction Status Date / Time latex Allergy Severe 2ND DEGREE Verified 08/25/21 07:43 BURN FROM BANDAGE adhesive Allergy Intermediate RASH Verified 08/25/21 07:43 Home Medications Medication Instructions Recorded Confirmed Type aspirin 81 mg tablet,delayed 0 mg PO QPM 10/30/18 08/07/23 History release (Malcom Low Dose Aspirin) atorvastatin 80 mg tablet (Lipitor) 80 mg PO HS 10/30/18 08/07/23 History gabapentin 300 mg capsule 300 mg PO TID 10/30/18 08/07/23 History sitagliptin phosphate 100 mg 100 mg PO QPM 01/08/21 08/07/23 History tablet (Januvia) insulin glargine 100 unit/mL (3 35 unit SC HS 08/25/21 08/07/23 History mL) subcutaneous pen (Lantus Solostar U-100 Insulin) lisinopril 5 mg tablet 5 mg PO DAILY 12/13/21 08/07/23 History metformin 850 mg tablet 850 mg PO BID 12/13/21 08/07/23 History quetiapine 100 mg tablet 150 mg PO HS 12/13/21 08/07/23 History furosemide 40 mg tablet (Lasix) 0 mg PO DAILY 08/07/23 08/07/23 History potassium chloride 10 mEq 0 meq PO DAILY 08/07/23 08/07/23 History tablet,extended release Patient History Medical History Shortness of breath Palliative care encounter Hyponatremia Complicated UTI (urinary tract infection) H/O defect LEFT ARM Diabetes mellitus, type 2 NIDDM Temporomandibular joint disorder NO PROBLEMS RECENTLY. Glaucoma WELL CONTROLLED Anxiety Depression Peripheral neuropathy BILATERAL FEET Hyperlipidemia Hypertension Chronic obstructive pulmonary disease Surgical History S/P JALIL-BSO History of total shoulder replacement RIGHT History of incision and drainage UMBILICAL ABSCESS Hx of umbilical hernia repair X4 -- WEARS SUPPORT BAND DAILY History of colonoscopy History of cholecystectomy History of appendectomy S/P tonsillectomy and adenoidectomy Family History Mother Diabetes mellitus, type 2 Aunt Diabetes mellitus, type 2 Social History Smoking Status: Current every day smoker Tobacco Type: Cigarettes Cigarettes Per Day: quit 1 year ago; Second Hand Exposure: No; Do You Dip or Chew Tobacco: No; Hx Alcohol Use: No Hx Substance Use: No Preferred Language: Bolivian Communication Ability: Impaired Portfolio Management Marketing Required: No Beliefs That Will Affect Care: None marital status: Current Living Situation: Spouse current occupational status: retired Feels Safe at Home: Yes Safety Concerns: Feels Safe At This Time Assistive Devices: Oxygen - Continuous and Wheelchair Review of Systems Review of Systems: A complete 10 point review of systems was reviewed with the patient with pertinent positives and negatives as per history of present illness. All else were negative. Physical Exam Physical Exam: VITAL SIGNS - Vital signs and nursing notes were reviewed. GENERAL - 73-year-old female appearing her stated age who is in no acute distress. Communicates well with provider and answers questions appropriately. SKIN - Without rashes or lesions. NOSE - Midline and without cyanosis. MOUTH/OROPHARYNX - Without perioral cyanosis. NECK - Neck with FROM. LUNGS - Auscultation reveals diminished breath sounds at the bases and attention to the LEFT-sided lung. No wheezing or rales appreciated. CARDIAC - RRR with S1/S2. No murmur, rubs, or gallops appreciated. ABDOMEN - Abdominal inspection demonstrates an obese abdomen. BS normoactive all four quadrants. No tenderness, palpable masses, or ascites noted. EXTREMITIES - Nail clubbing not present. No peripheral cyanosis. Bilateral pretibial edema present. +3/5 radial palpated throughout. Results & Data Results & Data Vital Signs (Past 12 Hours) Vital Signs Temp Pulse Pulse Pulse Resp BP Pulse Ox 08/13/23 07:19 78 20 93 08/13/23 03:55 36.5 C 68 18 100/52 L 90 08/13/23 00:00 75 08/12/23 22:40 36.7 C 70 18 85/45 L 91 O2 Del Method O2 Flow Rate 08/13/23 07:19 Nasal Cannula 7 08/13/23 03:55 Room Air 08/13/23 00:00 08/12/23 22:40 High Flow Nasal Cannula 6 PG Care Time/CCT Total # of Minutes Spent Total Time Spent with Patient: Total time spent is greater than 50% in coordination of care (as documented) at patient's floor/unit and/or counseling patient: Coding Level of Care Code 96876 INT INP/OBS CARE 3/75MIN Diagnoses Atelectasis of left lung J98.11 Acute on chronic respiratory failure with hypoxia and hypercapnia J96.21; J96.22 Mucoid impaction of bronchi T17.500A Morbid obesity E66.01 Generalized weakness R53.1
[2023-08-13 08:44] LABS: BUN Creatinine Ratio 43.8 (10-20); Calcium 9.3 mg/dl (8.6-10.3); Creatinine Clr Calc Pharmacy 45.1 ml/min; Est GFR (African American) 51.8 ml/min; Est GFR (Non-African American) 44.7 ml/min; Potassium 3.7 mmol/L (3.5-5.1)
[2023-08-13] MEDS ORDERED: ACETYLCYSTEINE 10% INHAL SOLN 4 ML **DISPENSED BY RESP. INH SCH (09:00)
[2023-08-13] MEDS: ALBUT/IPRATROP 3MG/0.5MG NEB 3 ML VIAL INH PRN (10:02)
[2023-08-13] MEDS: ACETYLCYSTEINE 10% INHAL SOLN 4 ML **DISPENSED BY RESP. INH SCH (10:02)
--- NOTE | 2023-08-13 10:26 | Orthopedic Progress Note ---
Date of Service August 13, 2023 Assessment & Plan (1) Closed right fibular fracture: Plan: Patient will continue to remain in the splint. NWB. PT/OT. She will follow-up in our office as an outpatient with Dr. Root on 08/09/2023 anticipate imaging outside of the splint and transitioning to a short leg cast. Her appointment is scheduled on 08/17/2023. Admission and Anticipated Discharge Date Admission Date: August 07, 2023 Subjective Pt reports she is doing well. No pain in her leg. Splint fitting comfortably. No questions or concerns. Physical Exam Physical Exam: Splint clean, dry and intact. Fitting appropriately. Pt can wiggle all of her toes. Results & Data Vital Signs (Past 12 Hours) Vital Signs Temp Pulse Pulse Pulse Resp BP Pulse Ox 08/13/23 10:06 79 26 H 91 08/13/23 08:05 36.3 C L 67 18 97/54 L 97 08/13/23 08:00 08/13/23 07:19 78 20 93 08/13/23 03:55 36.5 C 68 18 100/52 L 90 08/13/23 00:00 75 08/12/23 22:40 36.7 C 70 18 85/45 L 91 O2 Del Method O2 Flow Rate 08/13/23 10:06 Nasal Cannula 11 08/13/23 08:05 Nasal Cannula 7 08/13/23 08:00 Nasal Cannula, High Flow Nasal Cannula 7 08/13/23 07:19 Nasal Cannula 7 08/13/23 03:55 Room Air 08/13/23 00:00 08/12/23 22:40 High Flow Nasal Cannula 6 (1) Closed right fibular fracture Encounter type: initial encounter Fibula location: proximal Fracture morphology: unspecified fracture morphology Qualified Code(s): S82.831A - Other fracture of upper and lower end of right fibula, initial encounter for closed fracture
[2023-08-13 12:05] LABS: iSTAT Art Bld Gas pCO2 Correct 50 mmHg (35-46); iSTAT Art Bld Gas pH Corrected 7.455 (7.35-7.45); iSTAT Arterial Blood Gas HCO3 35 meg/L (19-24); iSTAT Arterial Blood Gas pCO2 50 mmHg (35-46); iSTAT Arterial Blood Gas pH 7.46 (7.35-7.45); iSTAT Arterial Blood Gas pO2 84 mmHg (80-95); iSTAT Arterial Blood Gas pO2 C 84; iSTAT Carbon Dioxide 36 mmol/L (24-31); iSTAT FiO2 100 %; iSTAT Hematocrit 35 % (37-47); iSTAT Hemoglobin 11.9 g/dl (12.0-16.0); iSTAT Potassium 3.3 mmol/L (3.3-5.0); iSTAT Sodium 134 mmol/L (135-144)
--- NOTE | 2023-08-13 15:47 | Hospitalist Progress Note ---
Date of Service August 13, 2023 Assessment & Plan (1) Pulmonary atelectasis: Plan: Left lung whiteout on chest x-ray. Pulmonary medicine consultation noted. She needs a bronchoscopy. Consent is pending. (2) Toxic encephalopathy: Plan: Supportive care. 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 No surgical intervention needed. Right lower extremity has been immobilized and elevated. Pain control measures. (4) Acute on chronic diastolic CHF (congestive heart failure): Plan: Good response to Lasix diuresis. Monitor intake and output. Serial chest x- ray. (5) Upper GI bleed: Plan: She has developed melena and stools are Hemoccult positive. Lovenox has been discontinued. GI consultation has been requested but refused by the patient. She is not willing to undergo endoscopic evaluation and states she has had intermittent melena for quite some time. The is present and is aware. Fortunately, hemoglobin level is stable (6) Closed fracture of left pelvis: Plan: Left superior ramus fracture noted on x-ray. Supportive care. Pain control measures. (7) Fatigue: Plan: Continue OT and PT while hospitalized. (8) Chronic respiratory failure with hypoxia and hypercapnia: Plan: Acute on chronic exacerbation. Due to exacerbation of CHF and left mainstem mucous plug. Oxygen is being titrated down to her usual 5 L/mi . Currently she is requiring 7 L/min. Will keep saturation in the 90 to 92% area to prevent further CO2 retention (9) Uncontrolled type 2 diabetes mellitus with hyperosmolarity, without long- term current use of insulin: Plan: ADA diet. Sliding scale coverage. Lantus dosage uptitrated on August 08 and August 09. Improved (10) Chronic right-sided congestive heart failure: Plan: Known chronic cor pulmonale. Stable. Continue current medical management (11) Hypertension: Plan: Stable. Continue lisinopril (12) Morbid obesity: Plan: BMI greater than 40. Significant weight loss recommended Plan To be determined Admission and Anticipated Discharge Date Admission Date: August 07, 2023 Subjective Somewhat tearful and confused. Chest x-ray reveals complete whiteout of the left lung due to atelectasis from suspected mucous plugging of the left mainstem bronchus. Pulmonary medicine consultation has been obtained and noted. She needs a bronchoscopy procedure done but consent has not been obtained as of yet. Parenteral Lasix therapy has been discontinued. She is now on incentive spirometry. She is currently requiring 7 L of oxygen. Glucose level has improved with up titration of Lantus. Review of Systems 2 Review of Systems: Constitutional-no fever or chills ENT-no blurred vision, no double vision, no epistaxis, no sore throat Respiratory-no cough, no wheezing. She appears to be short of breath at rest with tachypnea Cardiac-no palpitations, no chest pain, no syncope GI-no nausea, vomiting, diarrhea, hematochezia. She has described melenic stools over the past 24 hours -no urinary retention, no urinary incontinence, no dysuria, no hematuria Musculoskeletal-back discomfort from limited ambulation and she does not like the bed. Right lower extremity below the knee has been immobilized Skin-no bruising, no rashes, no pruritus Neuro-no isolated weakness, no paresthesia Psych-no depression, no anxiety Physical Exam 2 Physical Exam: General-alert, somewhat tearful and confused, no fever, no chills. Morbidly obese HEENT-head atraumatic and normocephalic, pupils equal and reactive to light, extraocular muscles intact Neck-no lymphadenopathy or thyromegaly, trachea midline Chest-diminished breath sounds bilaterally, more so on the left. No audible inspiratory rales, wheezing or rhonchi Cardiac-regular rate and rhythm, normal S1 and S2 Abdomen-normal bowel sounds, nontender, no hepatosplenomegaly Extremities-right lower extremity immobilized below the knee. Neuro-cranial nerves II through XII intact, motor and sensory function within normal limits, strength symmetrical, no focal deficits Psych-tearful, confused Results & Data Results & Data Vital Signs (Past 12 Hours) Vital Signs Temp Pulse Pulse Pulse Resp BP Pulse Ox 08/13/23 14:08 111 H 32 H 92 08/13/23 14:06 111 H 32 H 92 08/13/23 11:59 117 H 28 H 93 08/13/23 11:41 36.8 C 104 H 20 122/76 96 08/13/23 10:06 79 26 H 91 08/13/23 08:05 36.3 C L 67 18 97/54 L 97 08/13/23 08:00 08/13/23 07:19 78 20 93 08/13/23 03:55 36.5 C 68 18 100/52 L 90 O2 Del Method O2 Flow Rate FiO2 08/13/23 14:08 70 08/13/23 14:06 BiPAP 70 08/13/23 11:59 70 08/13/23 11:41 BiPAP 08/13/23 10:06 Nasal Cannula 11 08/13/23 08:05 Nasal Cannula 7 08/13/23 08:00 Nasal Cannula, High Flow Nasal Cannula 7 08/13/23 07:19 Nasal Cannula 7 08/13/23 03:55 Room Air Laboratory Results 08/13/23 06:29 08/13/23 06:29 PG Care Time/CCT Total # of Minutes Spent Total Time Spent with Patient: Total time spent is greater than 50% in coordination of care (as documented) at patient's floor/unit and/or counseling patient: Coding Level of Care Code 60541 SUB INP/OBS CARE 3/50MIN Diagnoses Pulmonary atelectasis J98.11 Toxic encephalopathy G92.9 Right fibular fracture S82.401A Acute on chronic diastolic CHF (congestive heart failure) I50.33 Upper GI bleed K92.2 Closed fracture of left pelvis S32.9XXA Fatigue R53.83 Chronic respiratory failure with hypoxia and hypercapnia J96.11; J96.12 Uncontrolled type 2 diabetes mellitus with hyperosmolarity, without long-term current use of insulin E11.00 Chronic right-sided congestive heart failure I50.812 Essential hypertension I10 Hypertension type: essential hypertension Morbid obesity E66.01 (11) Hypertension Hypertension type: essential hypertension Qualified Code(s): I10 - Essential (primary) hypertension
--- NOTE | 2023-08-13 17:27 | Pre Anesthesia Assessment ---
Date of Service August 13, 2023 Pre Sedation Assessment Vital Signs Temp Pulse Pulse Pulse Resp BP Pulse Ox 08/13/23 15:55 36.3 C L 85 18 90/51 L 100 08/13/23 15:00 103 H 24 90 08/13/23 14:08 111 H 32 H 92 08/13/23 14:06 111 H 32 H 92 08/13/23 11:59 117 H 28 H 93 08/13/23 11:41 36.8 C 104 H 20 122/76 96 08/13/23 10:06 79 26 H 91 08/13/23 08:05 36.3 C L 67 18 97/54 L 97 08/13/23 08:00 08/13/23 07:19 78 20 93 08/13/23 03:55 36.5 C 68 18 100/52 L 90 08/13/23 00:00 75 08/12/23 22:40 36.7 C 70 18 85/45 L 91 08/12/23 20:00 08/12/23 20:00 08/12/23 19:33 98 H 18 92 08/12/23 19:31 75 08/12/23 19:30 36.6 C 66 18 87/54 L 90 O2 Del Method O2 Flow Rate FiO2 08/13/23 15:55 BiPAP 08/13/23 15:00 High Flow Nasal Cannula 50 100 08/13/23 14:08 70 08/13/23 14:06 BiPAP 70 08/13/23 11:59 70 08/13/23 11:41 BiPAP 08/13/23 10:06 Nasal Cannula 11 08/13/23 08:05 Nasal Cannula 7 08/13/23 08:00 Nasal Cannula, High Flow Nasal Cannula 7 08/13/23 07:19 Nasal Cannula 7 08/13/23 03:55 Room Air 08/13/23 00:00 08/12/23 22:40 High Flow Nasal Cannula 6 08/12/23 20:00 Nasal Cannula 08/12/23 20:00 Nasal Cannula 08/12/23 19:33 Nasal Cannula 7 08/12/23 19:31 08/12/23 19:30 High Flow Nasal Cannula 6 Pre-Sedation Airway Assessment Smoking Status: Current every day smoker Hx Sleep Apnea: Yes Mallampati Class: III ASA: ASA3 Procedure Planning Contraindications for Sedation: none Current Medications Reviewed: Yes Notes The planned sedation has been discussed with the patient. Informed Consent was obtained. I have identified the patient, determined the appropriateness of sedation and have assessed the patient immediately prior to the procedure. All medicine(s) and interventions are by my order.
--- NOTE | 2023-08-13 17:28 | Procedure Note ---
Procedure Note: Bronchoscopy Procedure PREOPERATIVE DIAGNOSIS: Opacification of the left lung POSTOPERATIVE DIAGNOSIS: Mucous plugging of the left lung PROCEDURE PERFORMED: Flexible fiberoptic bronchoscopy with mucous plug clearance COMPLICATIONS: None. INDICATION: This opacification of the left lung with hypoxia PROCEDURE: After obtaining an informed consent, the patient was brought to the ICU. The patient had appropriate oxygen, blood pressure, heart rate, and respiratory rate monitoring applied and monitored continuously throughout the procedure. Supplemental oxygen via nasal cannula as per nursing records was applied to the nasopharynx with adequate saturations achieved. Topical anesthesia with nebulized 1% lidocaine was achieved. Subsequent to this, the patient was premedicated with 2 mg of midazolam and 50 mcg of fentanyl. Upper Airway: The oropharynx and larynx were well visualized and showed first. There was normal vocal cord motion without masses or lesions. Additional topical anesthesia with 1% lidocaine was applied to the trachea and michelle. The trachea appeared normal.The bronchoscope was then advanced through the michelle, which was sharp. Thick grayish secretion were appreciated coming from the left main over the michelle into the right main. The scope was then advanced into the right main stem and each segment, subsegement in the right upper lobe, right middle lobe and right lower lobe were visualized. There was minimal amount of kimball secretion which was suctioned out. There were no other findings including evidence of mass, anatomic distortions, or hemorrhage. The bronchoscope was subsequently withdrawn and advanced into the left mainstem. Large mucous plug with thick grayish secretion was appreciated which was gradually suctioned out. Mucomyst was instilled at the mucous plug after suctioning each segment and subsegment was well visualized. The mucosa of the left main and especially the left upper lobe and the lingula was edematous and friable. No specific masses or other lesions were identified throughout the tracheobronchial tree on the left. The bronchoscope was then withdrawn to the mainstem. The area was suctioned clear. The bronchoscope was then withdrawn. The patient tolerated the procedure well without evidence of desaturation or complications. Recommendations: Follow-up chest x-ray Please note the above document was generated using voice recognition software. It may contain grammatical, syntax or spelling errors.Any formal questions or concerns about the content, text or information contained within the body of this dictation should be directly addressed to the provider for clarification. [facility] [place] Procedure Codes (Charges) Pulmonary/Thoracic Procedure 1: Pulmonary and Thoracic: 65424 Bronchoscopy, clear airways Sedation/Anesthesia Procedure 1: Sedation/Anesthesia: 60169 Mod Sedation by the same physician;Init15 Min Child Age 5 & Up
[2023-08-13] MEDS: MIDAZOLAM HCL 5 MG/ML 2ML VIAL ONE (17:40)
[2023-08-13] MEDS: fentaNYL citrate PF 100 MCG/2 ML VIAL ONE (17:40)
--- NOTE | 2023-08-13 19:05 | XRay Report ---
SINGLE VIEW CHEST CLINICAL HISTORY: Status post bronchoscopy. FINDINGS: An AP, portable, semierect chest radiograph is compared to study performed earlier the same day 08/13/2023 and correlated with chest CT dated 05/25/2022 The examination is degraded by portable technique and patient rotation. The heart is enlarged noting atherosclerotic calcification of the tho racic aorta. There is pulmonary vascular congestion. There is leftward shift of the mediastinum. Near -complete opacification of the left hemithorax is unchanged as compared to today's earlier examinatio n there is a small right pleural effusion. No pneumothorax is seen. The skeletal structures are osteo penic. There are healed left-sided rib fractures. A right shoulder arthroplasty is in place. Severe c hronic deformity of the left proximal humerus/shoulder is unchanged. IMPRESSION: 1. No pneumothorax is identified postprocedure. 2. Cardiomegaly with evidence of congestive failure. 3. Near complete opacification of the left hemithorax with left-sided mediastinal shift is unchanged from today's earlier examination. This likely represents near complete atelectasis of the left lung a nd pleural fluid. 4. Small right pleural effusion with right basilar opacities. ACT 112: Negative or not required by law. Electronically signed by: Moi Coulter M.D. 08/13/2023 7:03 PM
[2023-08-13] MEDS: LORazepam 0.5 MG in SYRINGE 0.25 ML IV STA ×2 (19:43→22:58)
[2023-08-14] MEDS: OLANZapine 10 MG/2.1 ML SDV IM STA (02:17)
[2023-08-14 07:01] LABS: Basophils # (auto) 0.03 K/uL (0.00-0.20); Basophils % (auto) 0.3 %; Eosinophils # (auto) 0.08 K/uL (0.00-0.50); Eosinophils % (auto) 0.7 %; Hematocrit (blood only) 33.6 % (37.0-47.0); Hemoglobin 10.9 g/dl (12.0-16.0); Immature Granulocytes # (auto) 0.06 K/uL (0.01-0.20); Immature Granulocytes % (auto) 0.5 %; Lymphocytes # (auto) 0.71 K/uL (1.20-3.40); Lymphocytes % (auto) 6.3 %; Mean Corpuscular Hemoglobin 33.2 pg (25.0-34.0); Mean Corpuscular Hgb Conc 32.4 g/dL (32.0-36.0); Mean Corpuscular Volume 102.4 fL (80.0-100.0); Mean Platelet Volume 9.4 fL (9.4-12.4); Monocytes # (auto) 1.02 K/uL (0.11-0.59); Neutrophils # (auto) 9.39 K/uL (1.40-6.50); Neutrophils % (auto) 83.2 %; Platelet Count 328 K/uL (130-400); RDW Coefficient of Variation 14.6 % (11.5-14.5); RDW Standard Deviation 54.4 fL (36.4-46.3); Red Blood Count 3.28 M/uL (4.20-5.40); White Blood Count 11.29 K/ul (4.8-10.8)
[2023-08-14 07:40] LABS: BUN Creatinine Ratio 55.1 (10-20); Calcium 9.5 mg/dl (8.6-10.3); Creatinine Clr Calc Pharmacy 54.5 ml/min; Est GFR (African American) 66.8 ml/min; Est GFR (Non-African American) 57.6 ml/min; Potassium 4.2 mmol/L (3.5-5.1)
--- NOTE | 2023-08-14 08:34 | Pulmonology Progress Note ---
Date of Service August 14, 2023 Assessment & Plan (1) Atelectasis of left lung: (2) Acute on chronic respiratory failure with hypoxia and hypercapnia: (3) Mucoid impaction of bronchi: (4) Morbid obesity: (5) Generalized weakness: Plan IMPRESSION: 73-year-old female with complex past medical history who presents with worsening atelectasis of the LEFT-sided lung with near collapse and acute on chronic hypoxic respiratory failure with hypercapnia. RECOMMENDATIONS: 1. LEFT lung collapse - In the setting of severe atelectasis with likely mucous plugging. Patient was slightly confused, but was adamantly refusing bronchoscopy yesterday and she had eaten breakfast. Bronchoscopy performed 08/13/2023. Patient was started on Mucinex in addition to her hypertonic saline. CoughAssist was added as well. Chest x-ray this morning shows increased aeration of the LEFT upper lobe. Will continue with aggressive pulmonary toileting as she is showed a favorable response. Would continue with BiPAP with at least sleep and she may benefit from utilization occasionally throughout the day as well. 2. Acute on chronic respiratory failure with hypoxia and hypercapnia - In the setting of atelectasis with LEFT lung collapse. Patient would benefit from ongoing BiPAP therapy as previously written during prior hospitalization. Patient is experiencing a degree of hypercapnia which is likely multifactorial in the morbidly obese patient with decreased ventilatory function in the setting of severe atelectasis. Would encourage ongoing BiPAP use as well as aggressive chest PT. 3. Mucoid impaction - Patient likely with mucoid impaction of the LEFT bronchi as noted by change in imaging and with previous results. Has responded favorably to chest PT and nebulizers. Will continue for now. s/p bronch with improvement in aeration. 4. Morbid obesity - Unfortunately this is negatively affecting the patient's respiratory status including her ventilatory function. 5. Generalized weakness - Continue workup per primary service. 6. Pneumonia -with aeration of the LEFT-sided lung field, there is concern for infiltrative process. Patient with slight jump in her white count today. Will add doxycycline and Rocephin empirically. Thank you for allowing us to participate in the care of this patient. We will continue to follow along while hospitalized. Admission and Anticipated Discharge Date Admission Date: August 07, 2023 Supervising Physician Co-Signing Physician Notes I saw and evaluated the patient with Onel Stanley PA-C, and agree with findings and plan as documented in the note. Patient seen and examined at bedside. No acute distress. Patient was on 7 L nasal cannula saturating 89%. She was oriented to only self. Denied any chest pain, no headache. Shortness of breath is at baseline She has been using CoughAssist. RN has been trying to make her use incentive spirometry as well as flutter valve to her best Constitutional: No acute distress HEENT: EOMI, PERRLA Respiratory system: Decreased air entry on the left side (improved from 08/13/2023), no wheeze, no rhonchi, positive crackles bilaterally CVS: S1-S2 positive, no murmurs or gallops Abdomen: Soft, nontender, nondistended, positive bowel sounds x4, obese Extremities: +2 pulses bilaterally radialis/ dorsalis pedis, no cyanosis, +1 pitting edema left lower extremity, right lower extremity in splint Neuro: Awake, oriented to only self Psych: Normal mood and affect G/U: Positive Deleon Plan: S/p bronchoscopy 08/13/2023 with significant mucous plugging of the left main. Chest x-ray from today shows opening of the left upper lobe, left lower lobe there is still consolidative process. Most likely patient has pneumonia of the left lower lobe. Would recommend to continue with antibiotics for at least 10 days. Continue with nebulized N-acetylcysteine, nebulized hypertonic saline along with DuoNebs. Flutter valve, chest PT and CoughAssist Recommend keeping O2 saturation around 90-92%. Do not over oxygenate the patient Case was discussed with RN, RT at bedside Please note the above document was generated using voice recognition software. It may contain grammatical, syntax or spelling errors.Any formal questions or concerns about the content, text or information contained within the body of this dictation should be directly addressed to the provider for clarification. Subjective Patient seen and evaluated today. She still seems relatively confused. She is currently utilizing high flow nasal cannula at a rate of 40 L and 60%. Review of Systems Review of Systems: A complete 10 point review of systems was reviewed with the patient with pertinent positives and negatives as per history of present illness. All else were negative. Physical Exam Physical Exam: VITAL SIGNS - Vital signs and nursing notes were reviewed. GENERAL - 73-year-old female appearing her stated age who is in no acute distress. SKIN - Without rashes or lesions. NOSE - Midline and without cyanosis. MOUTH/OROPHARYNX - Without perioral cyanosis. NECK - Neck with FROM. LUNGS - Auscultation reveals diminished breath sounds at the bases and attention to the LEFT-sided lung. No wheezing or rales appreciated. CARDIAC - RRR with S1/S2. No murmur, rubs, or gallops appreciated. ABDOMEN - Abdominal inspection demonstrates an obese abdomen. BS normoactive all four quadrants. No tenderness, palpable masses, or ascites noted. EXTREMITIES - Nail clubbing not present. No peripheral cyanosis. Bilateral pretibial edema present. +3/5 radial palpated throughout. Results & Data Results & Data Vital Signs (Past 12 Hours) Vital Signs Temp Pulse Pulse Resp BP Pulse Ox O2 Del Method 08/14/23 07:48 75 24 94 High Flow Nasal Cannula 08/14/23 07:46 36.6 C 77 24 139/60 98 BiPAP 08/14/23 07:16 75 08/14/23 07:07 76 31 H 97 BiPAP 08/14/23 04:19 37 C 88 34 H 149/75 H 94 BiPAP 08/14/23 03:52 97 H 30 H 97 08/13/23 23:44 37.5 C 90 20 142/74 H 97 BiPAP 08/13/23 22:38 96 H 08/13/23 22:15 100 H 36 H 97 08/13/23 21:58 118/76 08/13/23 21:42 92 BiPAP O2 Flow Rate FiO2 08/14/23 07:48 40 60 08/14/23 07:46 08/14/23 07:16 08/14/23 07:07 60 08/14/23 04:19 08/14/23 03:52 60 08/13/23 23:44 08/13/23 22:38 08/13/23 22:15 60 08/13/23 21:58 08/13/23 21:42 60 PG Care Time/CCT Total # of Minutes Spent Total Time Spent with Patient: Total time spent is greater than 50% in coordination of care (as documented) at patient's floor/unit and/or counseling patient: Coding Level of Care Code 36120 SUB INP/OBS CARE 3/50MIN Diagnoses Atelectasis of left lung J98.11 Acute on chronic respiratory failure with hypoxia and hypercapnia J96.21; J96.22 Mucoid impaction of bronchi T17.500A Morbid obesity E66.01 Generalized weakness R53.1
--- NOTE | 2023-08-14 08:50 | XRay Report ---
SINGLE VIEW CHEST CLINICAL HISTORY: Follow-up left lung collapse and bronchoscopy. FINDINGS: 2 AP, portable, upright chest radiographs are compared to studies dated 08/13/2023 and corre lated with chest CT dated 05/25/2022 The examination is degraded by portable technique and patient ro tation. The heart is enlarged noting atherosclerotic calcification of the thoracic aorta. There is pu lmonary vascular congestion. There is persistent leftward shift of the mediastinum. There is improved aeration of the left upper lung as compared to yesterday's examination. Consolidation is again seen in the left mid to lower lung. There is a small right pleural effusion. No pneumothorax is identified . The skeletal structures are osteopenic. There are healed left-sided rib fractures. A right shoulder arthroplasty is in place. Severe chronic deformity of the left proximal humerus/shoulder is unchange d. IMPRESSION: 1. There is improved aeration of the left upper lung as compared to yesterday. Consolidation is again seen in the left mid to lower lung. 2. Cardiomegaly with pulmonary vascular congestion. 3. Small right pleural effusion with right basilar opacities. ACT 112: Negative or not required by law. Electronically signed by: Moi Coulter M.D. 08/14/2023 8:49 AM
[2023-08-14] MEDS: cefTRIAXone SODIUM 2,000 MG in DEXTROSE 5 % MINI-B 50 ML IV SCH (09:11)
[2023-08-14] MEDS: DOXYCYCLINE HYCLATE 100 MG in DEXTROSE 5% MINI-B 100 ML IV SCH (09:44)
--- NOTE | 2023-08-14 16:13 | Hospitalist Progress Note ---
Date of Service August 14, 2023 Assessment & Plan (1) Pneumonia: Plan: With thick mucus pluggin and left lung collapse requiring bronch SPutum cx pending, remains on ctx and doxy Continue pulm toilet Appreciate PULM consult keep NPO in case of need for repeat bronch and aspiration eval (2) Pulmonary atelectasis: Plan: as above, s/p bronch follow CXR (3) Toxic encephalopathy: Plan: secondary to hypoxia,hypercarbia mild, now on bipap at night, also sedating meds to avoid withdrawal, resume lorazepam from home at lower dose of 0.5mg po bid and resume Seroquel lower dose 100mg po hs Improving keep blinds open during the day and supportive care, work on sleep at night reports she frequently gets hospital delirium (4) Right fibular fracture: Plan: Orthopedic consultation appreciated. No surgical intervention needed. Right lower extremity has been immobilized and elevated. Pain control measures. has both proximal and distal fibular fractures Has chronic right humerus fracture and shoulder dislocation, shoulder arthroplasty; also with chronic Erb's palsy LUE since (5) Acute on chronic diastolic CHF (congestive heart failure): Plan: Good response to Lasix diuresis which is now on hold if remains NPO much longer, start low maintenance fluids (6) Upper GI bleed: Plan: She developed melena and stools are Hemoccult positive. Lovenox has been discontinued. GI consultation has been requested but refused by the patient. She is not willing to undergo endoscopic evaluation and states she has had intermittent melena for quite some time. The is present and is aware. Fortunately, hemoglobin level is stable again today follow CBC (7) Closed fracture of left pelvis: Plan: Left superior ramus fracture noted on x-ray. Supportive care. Pain control measures. (8) Chronic respiratory failure with hypoxia and hypercapnia: Plan: Acute on chronic exacerbation. Due to exacerbation of CHF and left mainstem mucous plug. Continue O2 to keep POx> 90%, BiPAP at night (9) Uncontrolled type 2 diabetes mellitus with hyperosmolarity, without long- term current use of insulin: Plan: ADA diet. Sliding scale coverage. Lantus dosage uptitrated on August 08 and August 09. Is NPO now but continues with some mild hyperglycemia-continue same Lantus (10) Chronic right-sided congestive heart failure: Plan: Known chronic cor pulmonale. Stable. Continue current medical management (11) Hypertension: Plan: Stable. Continue lisinopril (12) Morbid obesity: Plan: BMI greater than 40. Significant weight loss recommended (13) Macrocytic anemia: Plan: B12, folate normal recently could be MDS? follow CBC Plan DVT proph-add SCD to left leg, no Lovenox due to GIB Dispo-guarded prognosis, continue dstay on tele Admission and Anticipated Discharge Date Admission Date: August 07, 2023 Subjective Is still confused today as per but slightly better. She reports she is not sleeping well and I resumed her Seroquel at a lower dose. Denies pain, SOB, is weaned off BiPAP to HFNC.Tele with NSR< normal rates Physical Exam Constitutional: + ill appearing and + obese Respiratory: normal respiratory effort; no cough Auscultation: + diminished lung sounds (throughout left side); no wheezes Cardiovascular: RRR, no murmur, no edema Gastrointestinal (Abdomen): normal bowel sounds, soft, nontender, no hepatosplenomegaly Musculoskeletal: Shoulder: + shoulder abnormal to inspection (dislocated shoulder,humerus deformity) Psychiatric: Orientation: alert, oriented to person, oriented to place, oriented to time and cooperative Results & Data Results & Data Vital Signs (Past 12 Hours) Vital Signs Temp Pulse Pulse Resp BP Pulse Ox O2 Del Method 08/14/23 15:19 36.7 C 82 22 112/58 L 94 High Flow Nasal Cannula 08/14/23 15:05 96 H 08/14/23 13:03 95 Nasal Cannula 08/14/23 12:41 85 26 H 91 High Flow Nasal Cannula 08/14/23 11:54 36.8 C 78 22 138/61 100 Room Air 08/14/23 10:42 76 24 94 High Flow Nasal Cannula 08/14/23 08:00 High Flow Nasal Cannula 08/14/23 07:48 75 24 94 High Flow Nasal Cannula 08/14/23 07:46 36.6 C 77 24 139/60 98 BiPAP 08/14/23 07:16 75 08/14/23 07:07 76 31 H 97 BiPAP 08/14/23 04:19 37 C 88 34 H 149/75 H 94 BiPAP O2 Flow Rate FiO2 08/14/23 15:19 7 08/14/23 15:05 08/14/23 13:03 7 08/14/23 12:41 35 55 08/14/23 11:54 08/14/23 10:42 40 60 08/14/23 08:00 40 08/14/23 07:48 40 60 08/14/23 07:46 08/14/23 07:16 08/14/23 07:07 60 08/14/23 04:19 Laboratory Results CBC, BMP reviewed Diagnostic Findings CXR reviewed PG Care Time/CCT Total # of Minutes Spent Total Time Spent with Patient: Total time spent is greater than 50% in coordination of care (as documented) at patient's floor/unit and/or counseling patient: Coding Level of Care Code 35586 SUB INP/OBS CARE 3/50MIN Diagnoses Pneumonia J18.9 Pulmonary atelectasis J98.11 Toxic encephalopathy G92.9 Right fibular fracture S82.401A Acute on chronic diastolic CHF (congestive heart failure) I50.33 Upper GI bleed K92.2 Closed fracture of left pelvis S32.9XXA Chronic respiratory failure with hypoxia and hypercapnia J96.11; J96.12 Uncontrolled type 2 diabetes mellitus with hyperosmolarity, without long-term current use of insulin E11.00 Chronic right-sided congestive heart failure I50.812 Essential hypertension I10 Hypertension type: essential hypertension Morbid obesity E66.01 Macrocytic anemia D53.9 (11) Hypertension Hypertension type: essential hypertension Qualified Code(s): I10 - Essential (primary) hypertension
[2023-08-14] MEDS ORDERED: Nursing to Pharmacy Communication SCH (19:30)
[2023-08-14] MEDS: QUEtiapine FUMARATE 100 MG TABLET PO SCH (20:58)
[2023-08-14] MEDS: LORazepam 0.5 MG TAB PO SCH (21:24)
[2023-08-15] MEDS: INSULIN ASPART PER UNIT CHARGE SC SCH ×3 (00:42→23:45)
[2023-08-15] MEDS ORDERED: Nursing to Pharmacy Communication SCH ×2 (01:00→20:30)
--- NOTE | 2023-08-15 08:28 | XRay Report ---
XR chest 1V portable HISTORY: Shortness of breath. COMPARISON: Chest 08/14/2023. FINDINGS: Complete consolidation of the left hemithorax has reoccurred with associated volume loss co nsistent with left lung atelectasis. This likely accounts for the mild left mediastinal shift. Inters titial thickening within the right lung remains unchanged. Right shoulder prosthesis again noted. Chr onic deformity within the left shoulder. The heart remains enlarged. IMPRESSION: Complete consolidation of the left hemithorax has reoccurred with associated volume loss consistent w ith left lung collapse. This could be due to mucous plugging. Bronchoscopy recommended for further ev aluation. This report was called/faxed to the referring physician following dictation. ACT 112: Negative or not required by law. Electronically signed by: Mauri Guzman M.D. 08/15/2023 8:26 AM
--- NOTE | 2023-08-15 08:53 | Pulmonology Progress Note ---
Date of Service August 15, 2023 Assessment & Plan (1) Atelectasis of left lung: (2) Acute on chronic respiratory failure with hypoxia and hypercapnia: (3) Mucoid impaction of bronchi: (4) Morbid obesity: (5) Generalized weakness: Plan IMPRESSION: 73-year-old female with complex past medical history who presents with worsening atelectasis of the LEFT-sided lung with near collapse and acute on chronic hypoxic respiratory failure with hypercapnia. RECOMMENDATIONS: 1. LEFT lung collapse - Had initially improved yesterday s/p bronchoscopy. CXR this AM shows return of collapsed LEFT lung. Oxygen requirement had improved from yesterday. She can continue with Mucinex, hypertonic saline, CoughAssist, and Mucomyst for now. Patient would benefit from repeat bronchoscopy either today or tomorrow if she is eating already. Thankfully, she appears less tenuous from a respiratory standpoint today than she had previously. Continue with aggressive pulmonary toileting for now with plans for bronchoscopy return of LEFT lung collapse and likely mucous plugging. 2. Acute on chronic respiratory failure with hypoxia and hypercapnia - In the setting of atelectasis with LEFT lung collapse. Patient would benefit from ongoing BiPAP therapy as previously written during prior hospitalization. Patient is experiencing a degree of hypercapnia which is likely multifactorial in the morbidly obese patient with decreased ventilatory function in the setting of severe atelectasis. Would encourage ongoing BiPAP use as well as aggressive chest PT. 3. Mucoid impaction - Patient likely with mucoid impaction of the LEFT bronchi appears to have happened again based on today's imaging. 4. Morbid obesity - Unfortunately this is negatively affecting the patient's respiratory status including her ventilatory function. 5. Generalized weakness - Continue workup per primary service. Certainly her profound weakness could be contributing to her poor ventilatory effort, poor cough, and poor airway clearance. Recommend ongoing evaluation of of this weakness if it has not been completed to this point. 6. Pneumonia - With aeration of the LEFT-sided lung field, there is concern for infiltrative process. Continue with doxycycline and Rocephin empirically. Thank you for allowing us to participate in the care of this patient. We will continue to follow along while hospitalized. Admission and Anticipated Discharge Date Admission Date: August 07, 2023 Supervising Physician Co-Signing Physician Notes I saw and evaluated the patient with Onel Stanley PA-C, and agree with findings and plan as documented in the note. Patient seen and examined at bedside. No acute distress. Patient was saturating 99% on 4 L nasal cannula, I went down to 2 L. Did use BiPAP overnight. Has been using CoughAssist. Not that compliant when it comes to incentive spirometry and flutter valve. Denies any chest pain Constitutional: No acute distress HEENT: EOMI, PERRLA Respiratory system: Decreased air entry on the left side (improved from 08/13/2023), no wheeze, no rhonchi, positive crackles bilaterally CVS: S1-S2 positive, no murmurs or gallops Abdomen: Soft, nontender, nondistended, positive bowel sounds x4, obese Extremities: +2 pulses bilaterally radialis/ dorsalis pedis, no cyanosis, +1 pitting edema left lower extremity, right lower extremity in splint Neuro: Somnolent but easily arousable, oriented to only self Psych: Normal mood and affect G/U: Positive Deleon Plan: S/p bronchoscopy 08/13/2023 with significant mucous plugging of the left main. Chest x-ray from today unfortunately again shows collapse of the left side of the lung. Will do bronchoscopy again today to for clearing of the airways Patient's daughter was called and made aware regarding the finding, she is agreeable to it. [facility] consent was already obtained on 08/13/2023 when we did the first bronchoscopy Risk and benefits were again explained to the patient's daughter. Continue with antibiotics for at least 10 days. Continue with nebulized N-acetylcysteine, nebulized hypertonic saline along with DuoNebs. Flutter valve, chest PT and CoughAssist Recommend keeping O2 saturation around 90-92%. Do not over oxygenate the patient Case was discussed with RN Please note the above document was generated using voice recognition software. It may contain grammatical, syntax or spelling errors.Any formal questions or concerns about the content, text or information contained within the body of this dictation should be directly addressed to the provider for clarification. Subjective Patient seen and evaluated at bedside. A little more alert and oriented today. Continues to feel weak. No complaints otherwise. Review of Systems 2 Review of Systems: Unchanged. Physical Exam 2 Physical Exam: VITAL SIGNS - Vital signs and nursing notes were reviewed. GENERAL - 73-year-old female appearing her stated age who is in no acute distress. NOSE - Midline and without cyanosis. MOUTH/OROPHARYNX - Without perioral cyanosis. NECK - Neck with FROM. LUNGS - Auscultation reveals diminished breath sounds at the bases and attention to the LEFT-sided lung. No wheezing or rales appreciated. CARDIAC - RRR with S1/S2. No murmur, rubs, or gallops appreciated. ABDOMEN - Abdominal inspection demonstrates an obese abdomen. BS normoactive all four quadrants. No tenderness, palpable masses, or ascites noted. EXTREMITIES - Nail clubbing not present. No peripheral cyanosis. Bilateral pretibial edema present. +3/5 radial palpated throughout. Results & Data Results & Data Vital Signs (Past 12 Hours) Vital Signs Temp Pulse Pulse Resp BP BP Pulse Ox 08/15/23 07:44 36.5 C 76 22 91/58 L 96 08/15/23 07:03 78 18 100 08/15/23 04:51 36.9 C 72 18 91/47 L 95 08/14/23 23:50 95 H 23 95 08/14/23 22:49 74 08/14/23 22:47 37.0 C 69 16 94/63 L 93 O2 Del Method O2 Flow Rate FiO2 08/15/23 07:44 High Flow Nasal Cannula 08/15/23 07:03 Nasal Cannula 7 08/15/23 04:51 Nasal Cannula 6.0 08/14/23 23:50 60 08/14/23 22:49 08/14/23 22:47 Nasal Cannula 5.0 Laboratory Results 08/15/23 11:36 08/15/23 11:36 PG Care Time/CCT Total # of Minutes Spent Total Time Spent with Patient: Total time spent is greater than 50% in coordination of care (as documented) at patient's floor/unit and/or counseling patient: Coding Level of Care Code 08503 SUB INP/OBS CARE 3/50MIN Diagnoses Atelectasis of left lung J98.11 Acute on chronic respiratory failure with hypoxia and hypercapnia J96.21; J96.22 Mucoid impaction of bronchi T17.500A Morbid obesity E66.01 Generalized weakness R53.1
--- NOTE | 2023-08-15 09:24 | Orthopedic Progress Note ---
Date of Service August 15, 2023 Assessment & Plan (1) Closed right fibular fracture: Plan: 1 week from fracture - right distal fibular fracture - nondisplaced. Maintain NWB RLE Ice and elevate as needed for pain/swelling Will discuss with Dr. Root removing splint on right ankle, obtaining x-rays and then replacing splint with high tide fracture boot or cast prior to discharge. Will communicate with nursing once moving forward with this. Continue PT/OT. Patient understands and agrees with plan. Will continue to follow. Admission and Anticipated Discharge Date Admission Date: August 07, 2023 Subjective Patient doing well with ankle. States that she "needs moved up in bed". Ankle is not painful. Toleratin splint. Denies any pain from the splint on right leg. States that she's been doing her best keeping the weight off her right leg. Physical Exam Musculoskeletal: Splint clean, dry and intact right lower extremity. Moves toes well. Mild edema into top of right foot. Skin intact around splint edges. Able to straight leg raise and bend knee without pain. Toes nontender, no erythema or ecchymosis. Cap refill brisk. Results & Data Vital Signs (Past 12 Hours) Vital Signs Temp Pulse Pulse Resp BP BP Pulse Ox 08/15/23 07:44 36.5 C 76 22 91/58 L 96 08/15/23 07:03 78 18 100 08/15/23 04:51 36.9 C 72 18 91/47 L 95 08/14/23 23:50 95 H 23 95 08/14/23 22:49 74 08/14/23 22:47 37.0 C 69 16 94/63 L 93 O2 Del Method O2 Flow Rate FiO2 08/15/23 07:44 High Flow Nasal Cannula 08/15/23 07:03 Nasal Cannula 7 08/15/23 04:51 Nasal Cannula 6.0 08/14/23 23:50 60 08/14/23 22:49 08/14/23 22:47 Nasal Cannula 5.0 (1) Closed right fibular fracture Encounter type: initial encounter Fibula location: proximal Fracture morphology: unspecified fracture morphology Qualified Code(s): S82.831A - Other fracture of upper and lower end of right fibula, initial encounter for closed fracture
[2023-08-15] MEDS: D5W AND LACTATED RINGERS 1,000 ML IV SCH (11:41)
[2023-08-15 12:11] LABS: Basophils # (auto) 0.04 K/uL (0.00-0.20); Basophils % (auto) 0.5 %; Eosinophils # (auto) 0.14 K/uL (0.00-0.50); Eosinophils % (auto) 1.9 %; Hematocrit (blood only) 32.2 % (37.0-47.0); Hemoglobin 9.9 g/dl (12.0-16.0); Immature Granulocytes # (auto) 0.03 K/uL (0.01-0.20); Immature Granulocytes % (auto) 0.4 %; Lymphocytes # (auto) 0.83 K/uL (1.20-3.40); Lymphocytes % (auto) 11.2 %; Mean Corpuscular Hemoglobin 32.1 pg (25.0-34.0); Mean Corpuscular Hgb Conc 30.7 g/dL (32.0-36.0); Mean Corpuscular Volume 104.5 fL (80.0-100.0); Mean Platelet Volume 9.5 fL (9.4-12.4); Monocytes # (auto) 1.06 K/uL (0.11-0.59); Monocytes % (auto) 14.3 %; Neutrophils # (auto) 5.29 K/uL (1.40-6.50); Neutrophils % (auto) 71.7 %; Platelet Count 321 K/uL (130-400); RDW Standard Deviation 57.1 fL (36.4-46.3); Red Blood Count 3.08 M/uL (4.20-5.40); White Blood Count 7.39 K/ul (4.8-10.8)
[2023-08-15 12:31] LABS: BUN Creatinine Ratio 36.2 (10-20); Calcium 9.3 mg/dl (8.6-10.3); Creatinine Clr Calc Pharmacy 30.6 ml/min; Est GFR (African American) 33.4 ml/min; Est GFR (Non-African American) 28.8 ml/min; Magnesium 2.3 mg/dl (1.7-2.4); Potassium 3.4 mmol/L (3.5-5.1)
--- NOTE | 2023-08-15 12:39 | Hospitalist Progress Note ---
Date of Service August 15, 2023 Assessment & Plan (1) Pneumonia: Plan: With thick mucus plugging and left lung collapse requiring bronch 08/13 with some improvement on CXR 08/14 Now recurrent collapse left lung 08/15--> plan for repeat bronch SPutum cx from bronch negative, remains on ctx and doxy Continue pulm toilet Appreciate PULM consult (2) Pulmonary atelectasis: Plan: as above, s/p bronch and going for another bronch 08/15 follow CXR BiPAP qhs (3) Toxic encephalopathy: Plan: secondary to hypoxia,hypercarbia mild, now on bipap at night, also sedating meds to avoid withdrawal, resumed lorazepam from home at lower dose of 0.5mg po bid and resume Seroquel lower dose 100mg po hs Improving keep blinds open during the day and supportive care, work on sleep at night reports she frequently gets hospital delirium gabapentin from home remains on hold (4) Right fibular fracture: Plan: Orthopedic consultation appreciated. No surgical intervention needed. Right lower extremity has been immobilized and elevated. Pain control measures. has both proximal and distal fibular fractures Has chronic right humerus fracture and shoulder dislocation, shoulder arthroplasty; also with chronic Erb's palsy LUE since tramadol prn pain (5) Acute on chronic diastolic CHF (congestive heart failure): Plan: Good response to Lasix diuresis which is now on hold has been NPO for over 48 hrs--> start low maintenance fluids with D5LR 70mL/hr (6) Upper GI bleed: Plan: She developed melena and stools are Hemoccult positive. Lovenox has been discontinued. GI consultation has been requested but refused by the patient. She is not willing to undergo endoscopic evaluation and states she has had intermittent melena for quite some time. The is present and is aware. Fortunately, hemoglobin level is stable again today follow CBC (7) Closed fracture of left pelvis: Plan: Left superior ramus fracture noted on x-ray. Supportive care. Pain control measures. (8) Chronic respiratory failure with hypoxia and hypercapnia: Plan: Acute on chronic exacerbation. Due to exacerbation of CHF and left mainstem mucous plug. Continue O2 to keep POx> 90%, BiPAP at night (9) Uncontrolled type 2 diabetes mellitus with hyperosmolarity, without long- term current use of insulin: Plan: ADA diet. Sliding scale coverage. Lantus dosage uptitrated on August 08 and August 09. -continue same Lantus dose-may need to increase further once starts eating again (10) Chronic right-sided congestive heart failure: Plan: Known chronic cor pulmonale. Stable. Continue current medical management (11) Hypertension: Plan: Stable. Continue lisinopril (12) Morbid obesity: Plan: BMI greater than 40. Significant weight loss recommended (13) Macrocytic anemia: Plan: B12, folate normal recently could be MDS? gets iron infusions as outpt and most recent Fe levels normal follow CBC Plan DVT proph-SCD to left leg, no Lovenox due to GIB Dispo-guarded prognosis, continued stay on tele. Need to discuss poor prognosis with /family if continues to not do well Admission and Anticipated Discharge Date Admission Date: August 07, 2023 Subjective Pt c/o back pain, denies SOB. is drowsy for me. Doesn't know if she slept better last night-shrugs her shoulders. I discussed her care with PULM-plan for bronch again today for left lung collapse Tele with NSR, PACs, rates 60-70s Physical Exam Constitutional: + ill appearing and + obese Respiratory: normal respiratory effort; no cough Auscultation: + diminished lung sounds (throughout left side); no wheezes Cardiovascular: RRR, no murmur, no edema Gastrointestinal (Abdomen): normal bowel sounds, soft, nontender, no hepatosplenomegaly Musculoskeletal: Shoulder: + shoulder abnormal to inspection (dislocated shoulder,humerus deformity) Psychiatric: Orientation: + not alert (drowsy) Results & Data Results & Data Vital Signs (Past 12 Hours) Vital Signs Temp Pulse Resp BP BP Pulse Ox O2 Del Method 08/15/23 12:14 71 17 90 Nasal Cannula 08/15/23 11:54 36.6 C 71 22 97/58 L 92 High Flow Nasal Cannula 08/15/23 08:00 High Flow Nasal Cannula 08/15/23 07:44 36.5 C 76 22 91/58 L 96 High Flow Nasal Cannula 08/15/23 07:03 78 18 100 Nasal Cannula 08/15/23 04:51 36.9 C 72 18 91/47 L 95 Nasal Cannula O2 Flow Rate 08/15/23 12:14 1.5 08/15/23 11:54 08/15/23 08:00 5 08/15/23 07:44 08/15/23 07:03 7 08/15/23 04:51 6.0 Laboratory Results CC reviewed, BMP pending Diagnostic Findings CXR reviewed PG Care Time/CCT Total # of Minutes Spent Total Time Spent with Patient: Total time spent is greater than 50% in coordination of care (as documented) at patient's floor/unit and/or counseling patient: Coding Level of Care Code 27619 SUB INP/OBS CARE 3/50MIN Diagnoses Pneumonia J18.9 Pulmonary atelectasis J98.11 Toxic encephalopathy G92.9 Right fibular fracture S82.401A Acute on chronic diastolic CHF (congestive heart failure) I50.33 Upper GI bleed K92.2 Closed fracture of left pelvis S32.9XXA Chronic respiratory failure with hypoxia and hypercapnia J96.11; J96.12 Uncontrolled type 2 diabetes mellitus with hyperosmolarity, without long-term current use of insulin E11.00 Chronic right-sided congestive heart failure I50.812 Essential hypertension I10 Hypertension type: essential hypertension Morbid obesity E66.01 Macrocytic anemia D53.9 (11) Hypertension Hypertension type: essential hypertension Qualified Code(s): I10 - Essential (primary) hypertension
--- NOTE | 2023-08-15 13:03 | Pre Anesthesia Assessment ---
Date of Service August 15, 2023 Pre Sedation Assessment Vital Signs Temp Pulse Pulse Resp BP BP Pulse Ox 08/15/23 12:14 71 17 90 08/15/23 11:54 36.6 C 71 22 97/58 L 92 08/15/23 08:00 08/15/23 07:44 36.5 C 76 22 91/58 L 96 08/15/23 07:03 78 18 100 08/15/23 04:51 36.9 C 72 18 91/47 L 95 08/14/23 23:50 95 H 23 95 08/14/23 22:49 74 08/14/23 22:47 37.0 C 69 16 94/63 L 93 08/14/23 20:35 08/14/23 19:29 96 H 24 97 08/14/23 19:09 36.9 C 84 18 147/64 H 92 08/14/23 15:19 36.7 C 82 22 112/58 L 94 08/14/23 15:05 96 H 08/14/23 13:03 95 O2 Del Method O2 Flow Rate FiO2 08/15/23 12:14 Nasal Cannula 1.5 08/15/23 11:54 High Flow Nasal Cannula 08/15/23 08:00 High Flow Nasal Cannula 5 08/15/23 07:44 High Flow Nasal Cannula 08/15/23 07:03 Nasal Cannula 7 08/15/23 04:51 Nasal Cannula 6.0 08/14/23 23:50 60 08/14/23 22:49 08/14/23 22:47 Nasal Cannula 5.0 08/14/23 20:35 High Flow Nasal Cannula 5 08/14/23 19:29 Nasal Cannula 7 08/14/23 19:09 Nasal Cannula 7.0 08/14/23 15:19 High Flow Nasal Cannula 7 08/14/23 15:05 08/14/23 13:03 Nasal Cannula 7 Pre-Sedation Airway Assessment Smoking Status: Current every day smoker Hx Sleep Apnea: Yes Short, Thick Neck: Yes Thyromental Distance: < 3.5 Finger Breadths Oral Cavity: + Dental Abnormalities Mallampati Class: III ASA: ASA3 NPO Status Date of Last Intake of Fluids: 08/15/23 Time of Last Intake of Fluids: 08:00 Date of Last Intake of Solid Food: 08/15/23 Time of Last Intake of Solid Foods: 08:00 Procedure Planning Contraindications for Sedation: none Current Medications Reviewed: Yes Notes The planned sedation has been discussed with the patient. Informed Consent was obtained. I have identified the patient, determined the appropriateness of sedation and have assessed the patient immediately prior to the procedure. All medicine(s) and interventions are by my order.
--- NOTE | 2023-08-15 13:04 | Post Anesthesia Assessment ---
Date of Service August 13, 2023 Post Sedation Assessment Vital Signs Temp Pulse Pulse Resp BP BP Pulse Ox 08/15/23 12:14 71 17 90 08/15/23 11:54 36.6 C 71 22 97/58 L 92 08/15/23 08:00 08/15/23 07:44 36.5 C 76 22 91/58 L 96 08/15/23 07:03 78 18 100 08/15/23 04:51 36.9 C 72 18 91/47 L 95 08/14/23 23:50 95 H 23 95 08/14/23 22:49 74 08/14/23 22:47 37.0 C 69 16 94/63 L 93 08/14/23 20:35 08/14/23 19:29 96 H 24 97 08/14/23 19:09 36.9 C 84 18 147/64 H 92 08/14/23 15:19 36.7 C 82 22 112/58 L 94 08/14/23 15:05 96 H O2 Del Method O2 Flow Rate FiO2 08/15/23 12:14 Nasal Cannula 1.5 08/15/23 11:54 High Flow Nasal Cannula 08/15/23 08:00 High Flow Nasal Cannula 5 08/15/23 07:44 High Flow Nasal Cannula 08/15/23 07:03 Nasal Cannula 7 08/15/23 04:51 Nasal Cannula 6.0 08/14/23 23:50 60 08/14/23 22:49 08/14/23 22:47 Nasal Cannula 5.0 08/14/23 20:35 High Flow Nasal Cannula 5 08/14/23 19:29 Nasal Cannula 7 08/14/23 19:09 Nasal Cannula 7.0 08/14/23 15:19 High Flow Nasal Cannula 7 08/14/23 15:05 Recovery Score Activity: Moves 4 extremities Respiration: Deep Breath/Cough Circulation: +/-20% PreAnes Value Consciousness: Fully Awake Oxygen Saturation: O2 needed for >90% Post Anesthesia Score: 9 Discharge Sedation Level of Care: Fast Track Phase II Post Sedation Plan On clinical assessment, the patient appears to have tolerated the sedation without complications. Patient is recovering as anticipated. Patient will continue to be monitored by nursing and may be discharged when sedation discharge criteria are met per below protocol. Upon Completions of procedure up to 15 minutes continue every 5 minute vital signs and the P.A.R. score; then discharge to a Phase I or Fast Track to Phase II per the following guidelines: * Discharge Patient to appropriate Phase II area if PAR is 8 or greater or return to pre- procedure baseline. The post - procedure orders will be as directed. * If PAR score is less than 8 or not return to pre-procedure baseline then patient will follow Phase I monitoring till PAR is reached for Phase II. The Phase I may be done in procedure room or may call to secure a Phase I area. * If naloxone or flumazenil are used for reversal, hold in Phase I for continued monitoring from when last reversal dose was given for a minimum of 60 minutes or longer pending the nurse and/or physician discretion of patient condition before discharge to Phase II. Please call the Sedation Physician to re-evaluate and complete post-note for discharge to Phase II area. Do NOT discharge from procedure sedation or Phase 1 until post- sedation evalua tion note is complete by procedure /sedation MD Sedation Discharge Instructions to be given to the patient at discharge to home.
[2023-08-15] MEDS: MIDAZOLAM HCL 5 MG/ML 2ML VIAL ONE (13:20)
[2023-08-15] MEDS: fentaNYL citrate PF 100 MCG/2 ML VIAL ONE (13:20)
--- NOTE | 2023-08-15 13:46 | Procedure Note ---
Procedure Note: Bronchoscopy Procedure PREOPERATIVE DIAGNOSIS: Left lung collapse POSTOPERATIVE DIAGNOSIS: Mucous plugging of the left lung PROCEDURE PERFORMED: Flexible fiberoptic bronchoscopy with airway clearance COMPLICATIONS: None. INDICATION: Left lung collapse PROCEDURE: After obtaining an informed consent from patient's daughter, the patient was brought to the ICU. The patient had appropriate oxygen, blood pressure, heart rate, and respiratory rate monitoring applied and monitored continuously throughout the procedure. Supplemental oxygen via high flow as per nursing records was applied to the nasopharynx with adequate saturations achieved. Topical anesthesia with nebulized 1% lidocaine was achieved. Subsequent to this, the patient was premedicated with 1 mg of midazolam and 25 mcg of fentanyl. Upper Airway: The oropharynx and larynx were well visualized and showed mild erythema, mild edema, otherwise negative. There was normal vocal cord motion without masses or lesions. Additional topical anesthesia with 1% lidocaine was applied to the trachea and michelle. The trachea appeared normal.The bronchoscope was then advanced through the michelle, which was sharp. The scope was then advanced into the right main stem and each segment, subsegement in the right upper lobe, right middle lobe and right lower lobe were visualized. There was minimal amount of clear secretion which was suctioned out. There were no other findings including evidence of mass, anatomic distortions, or hemorrhage. The bronchoscope was subsequently withdrawn and advanced into the left mainstem. Thick grayish-white phlegm was appreciated which was obstructing left upper as well as left lower. Mucomyst was instilled and phlegm was subsequently suctioned out. After suctioning again, each segment and subsegment was well visualized. No specific masses or other lesions were identified throughout the tracheobronchial tree on the left. Mucosa of the left lung was edematous and easily friable. It was similar on the last bronchoscopy 2 days ago as well. The bronchoscope was then withdrawn to the mainstem. The area was suctioned clear. The bronchoscope was then withdrawn. The patient tolerated the procedure well without evidence of desaturation or complications. Bronchial Wash samples were sent for cell count, Gram stain and bacterial culture, AFB culture and smear, fungal culture and smear and cytology. Recommendations: Follow-up micro, cytology Follow-up chest x-ray Please note the above document was generated using voice recognition software. It may contain grammatical, syntax or spelling errors.Any formal questions or concerns about the content, text or information contained within the body of this dictation should be directly addressed to the provider for clarification. [facility] [place] Codes (Charges) Pulmonary/Thoracic Procedure 1: Pulmonary and Thoracic: 71520 Bronchoscopy, clear airways Sedation/Anesthesia Procedure 1: Sedation/Anesthesia: 26459 Mod Sedation by the same physician;Init15 Min Child Age 5 & Up
--- NOTE | 2023-08-15 13:46 | Post Anesthesia Assessment ---
Date of Service August 15, 2023 Post Sedation Assessment Vital Signs Temp Pulse Pulse Resp BP BP BP 08/15/23 13:38 70 26 H 08/15/23 13:36 92/41 L 08/15/23 13:36 68 26 H 08/15/23 13:34 69 23 08/15/23 13:32 76 30 H 08/15/23 13:30 108/49 L 08/15/23 13:30 76 28 H 08/15/23 13:28 108/43 L 08/15/23 13:28 70 19 08/15/23 13:27 97 H 15 08/15/23 13:27 100/64 08/15/23 13:26 99 H 20 08/15/23 13:24 134/58 L 08/15/23 13:24 106 H 18 08/15/23 13:22 104 H 19 08/15/23 13:20 70 22 08/15/23 13:18 69 19 08/15/23 13:16 69 19 08/15/23 13:15 124/69 08/15/23 13:15 72 22 08/15/23 13:14 70 20 08/15/23 13:12 69 19 08/15/23 13:10 123/80 08/15/23 13:10 70 21 08/15/23 13:08 71 20 08/15/23 13:06 69 22 08/15/23 13:05 87/51 L 08/15/23 13:05 68 23 08/15/23 13:04 67 24 08/15/23 13:02 68 25 H 08/15/23 13:00 89/51 L 08/15/23 13:00 66 21 08/15/23 12:58 67 24 08/15/23 12:56 71 23 08/15/23 12:55 70 23 08/15/23 12:55 92/47 L 08/15/23 12:54 68 23 08/15/23 12:53 93/52 L 08/15/23 12:53 69 23 08/15/23 12:44 69 25 H 08/15/23 12:42 68 24 08/15/23 12:40 70 26 H 08/15/23 12:38 67 23 08/15/23 12:36 68 22 08/15/23 12:34 69 23 08/15/23 12:32 70 22 08/15/23 12:30 66 23 08/15/23 12:14 71 17 08/15/23 11:54 36.6 C 71 22 97/58 L 08/15/23 08:00 08/15/23 07:44 36.5 C 76 22 91/58 L 08/15/23 07:03 78 18 08/15/23 04:51 36.9 C 72 18 91/47 L 08/14/23 23:50 95 H 23 08/14/23 22:49 74 08/14/23 22:47 37.0 C 69 16 94/63 L 08/14/23 20:35 08/14/23 19:29 96 H 24 08/14/23 19:09 36.9 C 84 18 147/64 H 08/14/23 15:19 36.7 C 82 22 112/58 L 08/14/23 15:05 96 H Pulse Ox O2 Del Method O2 Flow Rate FiO2 08/15/23 13:38 89 L 08/15/23 13:36 08/15/23 13:36 93 08/15/23 13:34 89 L 08/15/23 13:32 91 08/15/23 13:30 08/15/23 13:30 95 08/15/23 13:28 08/15/23 13:28 100 08/15/23 13:27 100 08/15/23 13:27 08/15/23 13:26 100 08/15/23 13:24 08/15/23 13:24 100 08/15/23 13:22 100 08/15/23 13:20 100 08/15/23 13:18 100 08/15/23 13:16 100 08/15/23 13:15 08/15/23 13:15 100 08/15/23 13:14 100 08/15/23 13:12 100 08/15/23 13:10 08/15/23 13:10 100 08/15/23 13:08 100 08/15/23 13:06 95 08/15/23 13:05 08/15/23 13:05 93 08/15/23 13:04 90 08/15/23 13:02 90 08/15/23 13:00 08/15/23 13:00 87 L 08/15/23 12:58 92 08/15/23 12:56 91 08/15/23 12:55 92 08/15/23 12:55 08/15/23 12:54 92 08/15/23 12:53 08/15/23 12:53 08/15/23 12:44 08/15/23 12:42 08/15/23 12:40 08/15/23 12:38 08/15/23 12:36 08/15/23 12:34 08/15/23 12:32 08/15/23 12:30 08/15/23 12:14 90 Nasal Cannula 1.5 08/15/23 11:54 92 High Flow Nasal Cannula 08/15/23 08:00 High Flow Nasal Cannula 5 08/15/23 07:44 96 High Flow Nasal Cannula 08/15/23 07:03 100 Nasal Cannula 7 08/15/23 04:51 95 Nasal Cannula 6.0 08/14/23 23:50 95 60 08/14/23 22:49 08/14/23 22:47 93 Nasal Cannula 5.0 08/14/23 20:35 High Flow Nasal Cannula 5 08/14/23 19:29 97 Nasal Cannula 7 08/14/23 19:09 92 Nasal Cannula 7.0 08/14/23 15:19 94 High Flow Nasal Cannula 7 08/14/23 15:05 Recovery Score Activity: Moves 4 extremities Respiration: Dyspnea/Limited Breathing Circulation: +/-20% PreAnes Value Consciousness: Arouseable (by name) Oxygen Saturation: O2 needed for >90% Post Anesthesia Score: 7 Discharge Sedation Level of Care: Fast Track Phase II Post Sedation Plan On clinical assessment, the patient appears to have tolerated the sedation without complications. Patient is recovering as anticipated. Patient will continue to be monitored by nursing and may be discharged when sedation discharge criteria are met per below protocol. Upon Completions of procedure up to 15 minutes continue every 5 minute vital signs and the P.A.R. score; then discharge to a Phase I or Fast Track to Phase II per the following guidelines: * Discharge Patient to appropriate Phase II area if PAR is 8 or greater or return to pre- procedure baseline. The post - procedure orders will be as directed. * If PAR score is less than 8 or not return to pre-procedure baseline then patient will follow Phase I monitoring till PAR is reached for Phase II. The Phase I may be done in procedure room or may call to secure a Phase I area. * If naloxone or flumazenil are used for reversal, hold in Phase I for continued monitoring from when last reversal dose was given for a minimum of 60 minutes or longer pending the nurse and/or physician discretion of patient condition before discharge to Phase II. Please call the Sedation Physician to re-evaluate and complete post-note for discharge to Phase II area. Do NOT discharge from procedure sedation or Phase 1 until post- sedation evaluation note is complete by procedure /sedation MD Sedation Discharge Instructions to be given to the patient at discharge to home.
--- NOTE | 2023-08-15 13:59 | XRay Report ---
XR chest 1V portable CLINICAL HISTORY: Post Bronchoscopy TECHNIQUE: Single frontal radiograph of the chest was obtained. Comparison: Comparison is made to chest radiograph 08/15/2023 FINDINGS: Stable right shoulder hardware. Cardiomegaly is noted. Left airspace opacities are again seen with so mewhat improved aeration. No evidence of pneumothorax. Likely left pleural effusion. IMPRESSION: No evidence of postprocedural pneumothorax. Somewhat improved aeration of the left lung with residual opacities and effusion. ACT 112: Negative or not required by law. Electronically signed by: Jerry White M.D. 08/15/2023 1:58 PM
[2023-08-15 16:32] LABS: Eosinophil Body Fluid Man 1 %; Fluid Mono/Macrophage 6 %; Lymphocyte Body Fluid Man 2 %; Neutrophil Body Fluid Man 91 %
[2023-08-16 06:35] LABS: Basophils # (auto) 0.05 K/uL (0.00-0.20); Basophils % (auto) 0.6 %; Eosinophils # (auto) 0.18 K/uL (0.00-0.50); Eosinophils % (auto) 2.3 %; Hematocrit (blood only) 32.6 % (37.0-47.0); Hemoglobin 10.1 g/dl (12.0-16.0); Immature Granulocytes # (auto) 0.04 K/uL (0.01-0.20); Immature Granulocytes % (auto) 0.5 %; Lymphocytes # (auto) 0.75 K/uL (1.20-3.40); Lymphocytes % (auto) 9.6 %; Mean Corpuscular Hemoglobin 32.9 pg (25.0-34.0); Mean Corpuscular Volume 106.2 fL (80.0-100.0); Mean Platelet Volume 9.6 fL (9.4-12.4); Monocytes # (auto) 1.14 K/uL (0.11-0.59); Monocytes % (auto) 14.6 %; Neutrophils # (auto) 5.64 K/uL (1.40-6.50); Neutrophils % (auto) 72.4 %; Platelet Count 322 K/uL (130-400); RDW Coefficient of Variation 14.6 % (11.5-14.5); RDW Standard Deviation 57.3 fL (36.4-46.3); Red Blood Count 3.07 M/uL (4.20-5.40)
[2023-08-16 06:47] LABS: BUN Creatinine Ratio 40.5 (10-20); Calcium 9.3 mg/dl (8.6-10.3); Creatinine Clr Calc Pharmacy 32.7 ml/min; Est GFR (African American) 36.1 ml/min; Est GFR (Non-African American) 31.2 ml/min; Magnesium 2.5 mg/dl (1.7-2.4)
--- NOTE | 2023-08-16 08:28 | XRay Report ---
XR chest 1V portable CLINICAL HISTORY: f/u COMPARISON STUDY: Chest radiograph August 15, 2023 at 1:47 PM. FINDINGS: Right shoulder arthroplasty and chronic deformity of the left shoulder are incidentally not ed. There is no pneumothorax. No definite pleural effusion. Cardiomediastinal silhouette is stable wi th leftward mediastinal shift. Left lung aeration has mildly diminished. There is hazy right basilar opacity. Interstitial prominence within the right lung is unchanged. IMPRESSION: Left lung airspace opacity with slight decrease in left lung aeration. Given volume loss, this favors atelectasis although an infectious process could appear similar. ACT 112: Negative or not required by law. Electronically signed by: Alan Sanches M.D. 08/16/2023 8:27 AM
--- NOTE | 2023-08-16 08:40 | Pulmonology Progress Note ---
Date of Service August 16, 2023 Assessment & Plan (1) Atelectasis of left lung: (2) Acute on chronic respiratory failure with hypoxia and hypercapnia: (3) Mucoid impaction of bronchi: (4) Morbid obesity: (5) Generalized weakness: Plan IMPRESSION: 73-year-old female with complex past medical history who presents with worsening atelectasis of the LEFT-sided lung with near collapse and acute on chronic hypoxic respiratory failure with hypercapnia. RECOMMENDATIONS: 1. LEFT lung collapse - Still with aeration of the LEFT lung apex noted on AM CXR which is improved from yesterday s/p bronch on 08/15. Will need to continue with aggressive chest PT. Again, continue with Mucinex, hypertonic saline, CoughAssist, and Mucomyst. BiPAP as needed. Follow-up CXR in the AM. 2. Acute on chronic respiratory failure with hypoxia and hypercapnia - In the setting of atelectasis with LEFT lung collapse. Patient would benefit from ongoing BiPAP therapy as previously written during prior hospitalization. Patient is experiencing a degree of hypercapnia which is likely multifactorial in the morbidly obese patient with decreased ventilatory function in the setting of severe atelectasis. Would encourage ongoing BiPAP use as well as aggressive chest PT. 3. Mucoid impaction - Patient likely with mucoid impaction of the LEFT bronchi appears to have happened again based on today's imaging. 4. Morbid obesity - Unfortunately this is negatively affecting the patient's respiratory status including her ventilatory function. 5. Generalized weakness - Continue workup per primary service. Certainly her profound weakness could be contributing to her poor ventilatory effort, poor cough, and poor airway clearance. Recommend ongoing evaluation of of this weakness if it has not been completed to this point. 6. Pneumonia - With aeration of the LEFT-sided lung field, there is concern for infiltrative process. Continue with doxycycline and Rocephin empirically. Thank you for allowing us to participate in the care of this patient. We will continue to follow along while hospitalized. Admission and Anticipated Discharge Date Admission Date: August 07, 2023 Supervising Physician Co-Signing Physician Notes I saw and evaluated the patient with Onel Stanley PA-C, and agree with findings and plan as documented in the note. Patient seen and examined at bedside. No acute distress, no adverse events overnight Patient was very alert today. Answering all the questions appropriately Patient's was also in the room. Unfortunately she did not use her BiPAP overnight. Apparently she refused it. She was saturating 94% on 5 L nasal cannula. I went down to 3 L. Constitutional: No acute distress HEENT: EOMI, PERRLA Respiratory system: Decreased air entry on the left side (improved from before), no wheeze, no rhonchi, positive crackles bilaterally CVS: S1-S2 positive, no murmurs or gallops Abdomen: Soft, nontender, nondistended, positive bowel sounds x4, obese Extremities: +2 pulses bilaterally radialis/ dorsalis pedis, no cyanosis, +1 pitting edema left lower extremity, right lower extremity in splint Neuro: Awake alert oriented to self and place Psych: Normal mood and affect G/U: Positive Deleon Plan: S/p repeat bronchoscopy 08/14/2023 with significant mucous plugging Chest x-ray from today shows persistent opening of the left upper lobe, there is still dense consolidative process in the left lower lobe Continue with antibiotics for at least 10 days. Continue with nebulized N-acetylcysteine, nebulized hypertonic saline along with DuoNebs. Flutter valve, chest PT and CoughAssist Recommend keeping O2 saturation around 90-92%. Do not over oxygenate the patient There is discrepancy between what patient wishes are and what the wishes of the family are. Would recommend palliative care to get consulted and help sort this out Today I do think patient has the capacity to make decisions. There is also be an issue regarding access for the patient. Our team did try to see if you will be a candidate for even central line but given her morbid obesity, it to be very difficult. My recommendation would be insertion of a port. Case was discussed with Dr. Bentley Please note the above document was generated using voice recognition software. It may contain grammatical, syntax or spelling errors.Any formal questions or concerns about the content, text or information contained within the body of this dictation should be directly addressed to the provider for clarification. Subjective Patient seen and evaluated at bedside. She refused her CPAP overnight. She offers no complaints. She seems profoundly weak. Review of Systems Review of Systems: Unchanged. Physical Exam Physical Exam: VITAL SIGNS - Vital signs and nursing notes were reviewed. GENERAL - 73-year-old female appearing her stated age who is in no acute distress. NOSE - Midline and without cyanosis. MOUTH/OROPHARYNX - Without perioral cyanosis. NECK - Neck with FROM. LUNGS - Auscultation reveals diminished breath sounds at the bases and attention to the LEFT-sided lung. No wheezing or rales appreciated. CARDIAC - RRR with S1/S2. No murmur, rubs, or gallops appreciated. ABDOMEN - Abdominal inspection demonstrates an obese abdomen. BS normoactive all four quadrants. No tenderness, palpable masses, or ascites noted. EXTREMITIES - Nail clubbing not present. No peripheral cyanosis. Bilateral pretibial edema present. +3/5 radial palpated throughout. Results & Data Results & Data Vital Signs (Past 12 Hours) Vital Signs Temp Pulse Pulse Resp BP BP Pulse Ox 08/16/23 08:11 36.5 C 68 20 122/72 95 08/16/23 06:59 94 08/16/23 06:18 64 20 95 08/16/23 04:00 92 08/16/23 02:59 08/16/23 02:52 36.5 C 65 18 91/60 L 97 08/16/23 00:00 71 08/15/23 22:50 36.4 C L 89 20 116/61 96 08/15/23 22:25 93 H 26 H 93 08/15/23 20:55 37.2 C O2 Del Method O2 Flow Rate FiO2 08/16/23 08:11 Nasal Cannula 5 08/16/23 06:59 High Flow Nasal Cannula 1 08/16/23 06:18 Nasal Cannula 10 08/16/23 04:00 High Flow Nasal Cannula 2 08/16/23 02:59 High Flow Nasal Cannula 2 08/16/23 02:52 Nasal Cannula 4 08/16/23 00:00 08/15/23 22:50 BiPAP 08/15/23 22:25 60 08/15/23 20:55 PG Care Time/CCT Total # of Minutes Spent Total Time Spent with Patient: Total time spent is greater than 50% in coordination of care (as documented) at patient's floor/unit and/or counseling patient: Coding Level of Care Code 61910 SUB INP/OBS CARE 3/50MIN Diagnoses Atelectasis of left lung J98.11 Acute on chronic respiratory failure with hypoxia and hypercapnia J96.21; J96.22 Mucoid impaction of bronchi T17.500A Morbid obesity E66.01 Generalized weakness R53.1
[2023-08-16 08:49] LABS: iSTAT Arterial Blood Gas HCO3 36 meg/L (19-24); iSTAT Arterial Blood Gas pCO2 58 mmHg (35-46); iSTAT Arterial Blood Gas pO2 65 mmHg (80-95); iSTAT Carbon Dioxide 38 mmol/L (24-31); iSTAT Hematocrit 34 % (37-47); iSTAT Hemoglobin 11.6 g/dl (12.0-16.0); iSTAT Potassium 3.7 mmol/L (3.3-5.0); iSTAT Sodium 137 mmol/L (135-144)
--- NOTE | 2023-08-16 09:51 | XRay Report ---
RIGHT ANKLE 3 VIEWS HISTORY: follow up, fracture distal fibula COMPARISON: Right ankle radiograph 08/07/2023. FINDINGS: There is again noted an oblique fracture within the distal right fibula which is not signif icantly displaced. This is similar to the prior study. No evidence for healing at this time. The dist al tibia appears intact. No dislocation. Soft tissue swelling within the right ankle. Plantar and pos terior calcaneal spurs are noted. No radiopaque foreign bodies. IMPRESSION: No significant change in the nondisplaced distal right fibular fracture. ACT 112: Negative or not required by law. Electronically signed by: Mauri Guzman M.D. 08/16/2023 9:50 AM
--- NOTE | 2023-08-16 10:00 | Orthopedic Progress Note ---
Date of Service August 16, 2023 Assessment & Plan (1) Closed right fibular fracture: Plan: 10 days from fracture - right distal fibular fracture - nondisplaced. Maintain NWB RLE. Walker to assist with ambulation. May be able to only transfers from bed to chair. Elevate as needed for pain/swelling Splint removed today, short leg fiberglass waterproof cast applied. She tolerated cast application well. Continue PT/OT. Patient understands and agrees with plan. Follow up in approximately 4 weeks as scheduled. Keep heels off of bed. Admission and Anticipated Discharge Date Admission Date: August 07, 2023 Subjective Patient doing well. No complaints of pain in right ankle. Splint removed today for xray. Patient agreed to casting right ankle. Physical Exam Musculoskeletal: Skin intact. No edema. No skin wounds. Calf supple and nontender. Point tenderness with palpation right distal fibula. toes move well. Distal pulses 1+. Able to do active ROM right knee and right hip. Able to do an straight leg raise. Results & Data Vital Signs (Past 12 Hours) Vital Signs Temp Pulse Pulse Resp BP BP Pulse Ox 08/16/23 08:11 36.5 C 68 20 122/72 95 08/16/23 06:59 94 08/16/23 06:18 64 20 95 08/16/23 04:00 92 08/16/23 02:59 08/16/23 02:52 36.5 C 65 18 91/60 L 97 08/16/23 00:00 71 08/15/23 22:50 36.4 C L 89 20 116/61 96 08/15/23 22:25 93 H 26 H 93 O2 Del Method O2 Flow Rate FiO2 08/16/23 08:11 Nasal Cannula 5 08/16/23 06:59 High Flow Nasal Cannula 1 08/16/23 06:18 Nasal Cannula 10 08/16/23 04:00 High Flow Nasal Cannula 2 08/16/23 02:59 High Flow Nasal Cannula 2 08/16/23 02:52 Nasal Cannula 4 08/16/23 00:00 08/15/23 22:50 BiPAP 08/15/23 22:25 60 Diagnostic Findings RIGHT ANKLE 3 VIEWS HISTORY: follow up, fracture distal fibula COMPARISON: Right ankle radiograph 08/07/2023. FINDINGS: There is again noted an oblique fracture within the distal right fibula which is not significantly displaced. This is similar to the prior study. No evidence for healing at this time. The distal tibia appears intact. No dislocation. Soft tissue swelling within the right ankle. Plantar and posterior calcaneal spurs are noted. No radiopaque foreign bodies. IMPRESSION: No significant change in the nondisplaced distal right fibular fracture. (1) Closed right fibular fracture Encounter type: initial encounter Fibula location: proximal Fracture morphology: unspecified fracture morphology Qualified Code(s): S82.831A - Other fracture of upper and lower end of right fibula, initial encounter for closed fracture
[2023-08-16] MEDS ORDERED: Nursing to Pharmacy Communication SCH (10:45)
--- NOTE | 2023-08-16 11:56 | Hospitalist Progress Note ---
Date of Service August 16, 2023 Assessment & Plan (1) Pneumonia: Plan: With thick mucus plugging and left lung collapse requiring bronch 08/13 with some improvement on CXR 08/14 With recurrent collapse left lung 08/15--> underwent repeat bronch with further mucous plugging removed on 08/15 Chest x-ray today slightly better with some aeration in left lung Remains on 5 L nasal cannula but is more awake and alert SPutum cx from bronch negative, remains on ctx and doxy but without IV access- changed to cefdinir and p.o. doxycycline Continue pulm toilet Appreciate PULM consult Follow chest x-ray (2) Pulmonary atelectasis: Plan: as above, status post multiple Bronchs follow CXR BiPAP qhs although she is refusing this most of the time and has been reports she refuses to wear it at home (3) Toxic encephalopathy: Plan: secondary to hypoxia,hypercarbia mild, now on bipap at night when tolerates, also sedating meds to avoid withdrawal, resumed lorazepam from home at lower dose of 0.5mg po bid and resume Seroquel lower dose 100mg po hs Much improved keep blinds open during the day and supportive care, work on sleep at night reports she frequently gets hospital delirium gabapentin from home remains on hold (4) EYAD (acute kidney injury): Plan: Creatinine increased today to 1.7 and then down to 1.6 on repeat labs Likely secondary to being n.p.o. and not receiving fluids Started maintenance fluids Follow BMP Hold lisinopril (5) Right fibular fracture: Plan: Orthopedic consultation appreciated. No surgical intervention needed. Right lower extremity has been immobilized and elevated. Pain control measures. 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 for prolonged time Eat now and then n.p.o. after midnight for port placement (7) Upper GI bleed: Plan: She developed melena and stools are Hemoccult positive. Lovenox has been discontinued. GI consultation has been requested but refused by the patient. She is not willing to undergo endoscopic evaluation and states she has had intermittent melena for quite some time. The is present and is aware. Fortunately, hemoglobin level is stable again today follow CBC (8) Closed fracture of left pelvis: Plan: Left superior ramus fracture noted on x-ray. Supportive care. Pain control measures. (9) Chronic respiratory failure with hypoxia and hypercapnia: Plan: Acute on chronic exacerbation. Due to exacerbation of CHF and left mainstem mucous plug. Continue O2 to keep POx> 90%, BiPAP at night if tolerates (10) Uncontrolled type 2 diabetes mellitus with hyperosmolarity, without long- term current use of insulin: Plan: ADA diet. Sliding scale coverage. Lantus dosage uptitrated on August 08 and August 09. -continue same Lantus dose-may need to increase further once starts eating again (11) Chronic right-sided congestive heart failure: Plan: Known chronic cor pulmonale. Stable. Continue current medical management (12) Hypertension: Plan: Stable. Hold lisinopril for EYAD (13) Morbid obesity: Plan: BMI greater than 40. Significant weight loss recommended (14) Macrocytic anemia: Plan: B12, folate normal recently could be MDS? gets iron infusions as outpt and most recent Fe levels normal follow CBC Plan DVT proph-SCD to left leg, no Lovenox due to GIB Dispo-guarded prognosis, continued stay on tele. Had discussion with patient and she is tired of doing procedures and says she is okay if she dies, but her and daughter are strongly encouraging her to continue ahead and so she is agreeable for now. Palliative medicine consultation placed for further goals of care discussion Admission and Anticipated Discharge Date Admission Date: August 07, 2023 Subjective Patient much more awake and alert today. Does not feel short of breath is on 5 L nasal cannula. She lost her IV access and initially was adamantly refusing central line access as PICC line could not be obtained by IV team. However she also was not a good candidate for central line access as per pulmonary/critical care PA. I had a lengthy discussion with the patient, her , and her daughter on the phone and eventually patient was convinced to get a port placed with surgery tomorrow. At 1 point, she did mention that she is ready to and does not care if she dies but then said she was not ready for hospice. She is frustrated overall and her believe she is depressed. Physical Exam Constitutional: + obese Respiratory: normal respiratory effort; no cough Auscultation: + diminished lung sounds (throughout left side); no wheezes Cardiovascular: RRR, no murmur, no edema Gastrointestinal (Abdomen): normal bowel sounds, soft, nontender, no hepatosplenomegaly Musculoskeletal: Shoulder: + shoulder abnormal to inspection (dislocated shoulder,humerus deformity) Psychiatric: Orientation: oriented to person, oriented to place, oriented to time and cooperative Results & Data Results & Data Vital Signs (Past 12 Hours) Vital Signs Temp Pulse Pulse Resp BP BP Pulse Ox 08/16/23 11:41 36.5 C 73 20 99/58 L 95 08/16/23 08:11 36.5 C 68 20 122/72 95 08/16/23 06:59 94 08/16/23 06:18 64 20 95 08/16/23 04:00 92 08/16/23 02:59 08/16/23 02:52 36.5 C 65 18 91/60 L 97 08/16/23 00:00 71 O2 Del Method O2 Flow Rate 08/16/23 11:41 Nasal Cannula 08/16/23 08:11 Nasal Cannula 5 08/16/23 06:59 High Flow Nasal Cannula 1 08/16/23 06:18 Nasal Cannula 10 08/16/23 04:00 High Flow Nasal Cannula 2 08/16/23 02:59 High Flow Nasal Cannula 2 08/16/23 02:52 Nasal Cannula 4 08/16/23 00:00 Laboratory Results BMP, CBC, ABG, bronchial lavage cultures reviewed PG Care Time/CCT Total # of Minutes Spent Total Time Spent with Patient: Total time spent is greater than 50% in coordination of care (as documented) at patient's floor/unit and/or counseling patient: Coding Level of Care Code 99619 SUB INP/OBS CARE 3/50MIN Diagnoses Pneumonia J18.9 Pulmonary atelectasis J98.11 Toxic encephalopathy G92.9 EYAD (acute kidney injury) N17.9 Right fibular fracture S82.401A Acute on chronic diastolic CHF (congestive heart failure) I50.33 Upper GI bleed K92.2 Closed fracture of left pelvis S32.9XXA Chronic respiratory failure with hypoxia and hypercapnia J96.11; J96.12 Uncontrolled type 2 diabetes mellitus with hyperosmolarity, without long-term current use of insulin E11.00 Chronic right-sided congestive heart failure I50.812 Essential hypertension I10 Hypertension type: essential hypertension Morbid obesity E66.01 Macrocytic anemia D53.9 (12) Hypertension Hypertension type: essential hypertension Qualified Code(s): I10 - Essential (primary) hypertension
[2023-08-16] MEDS: INSULIN ASPART PER UNIT CHARGE SC SCH (12:18)
--- NOTE | 2023-08-16 16:08 | Surgery Consultation ---
Date of Consultation August 16, 2023 Assessment & Plan (1) Poor venous access: Patient , and daughter Manoj at bedside. Patient agreeable to get a mediport placed with Dr. Kirkpatrick tomorrow in the Operating room, consent obtained. NPo at MD. as above. discussed options/risks ( bleeding/infection/malfunction of port/vascular injury/pneumothorax/dvt/pe/mi/cva etc...) questions answered. discussed with pt//daughter...all are in agreement. History of Present Illness Reason for Consultation: Aport placement Attending Physician: Razia Bentley MD History of Present Illness Patient is a 73 yo female with PMH of Macrocytic anemia ,Shortness of breath ,Palliative care encounter ,Hyponatremia, Complicated UTI (urinary tract infection) , Diabetes mellitus, type 2 ,Temporomandibular joint disorder ,Glaucoma ,Anxiety ,Depression ,Peripheral neuropathy ,Hyperlipidemia, Hypertension, Chronic obstructive pulmonary disease, and is currently in hospital being treated for pneumonia , Toxic encephalopathy, Right fibular fracture, CHF, Upper GI bleed. General surgery was consulted for Aport placement due to the fact that the patient has poor venous access and is unable to obtain a PICC line. Patient reports she gets iron infusions every two weeks. Allergies Allergy/AdvReac Type Severity Reaction Status Date / Time latex Allergy Severe 2ND DEGREE Verified 08/25/21 07:43 BURN FROM BANDAGE adhesive Allergy Intermediate RASH Verified 08/25/21 07:43 Home Medications Medication Instructions Recorded Confirmed Type aspirin 81 mg tablet,delayed 0 mg PO QPM 10/30/18 08/07/23 History release (Malcom Low Dose Aspirin) atorvastatin 80 mg tablet (Lipitor) 80 mg PO HS 10/30/18 08/07/23 History gabapentin 300 mg capsule 300 mg PO TID 10/30/18 08/07/23 History sitagliptin phosphate 100 mg 100 mg PO QPM 01/08/21 08/07/23 History tablet (Januvia) insulin glargine 100 unit/mL (3 35 unit SC HS 08/25/21 08/07/23 History mL) subcutaneous pen (Lantus Solostar U-100 Insulin) lisinopril 5 mg tablet 5 mg PO DAILY 12/13/21 08/07/23 History metformin 850 mg tablet 850 mg PO BID 12/13/21 08/07/23 History quetiapine 100 mg tablet 150 mg PO HS 12/13/21 08/07/23 History furosemide 40 mg tablet (Lasix) 0 mg PO DAILY 08/07/23 08/07/23 History potassium chloride 10 mEq 0 meq PO DAILY 08/07/23 08/07/23 History tablet,extended release lorazepam 1 mg tablet 1 mg PO BID 08/14/23 08/14/23 History Patient History Medical History Macrocytic anemia Shortness of breath Palliative care encounter Hyponatremia Complicated UTI (urinary tract infection) H/O defect LEFT ARM Diabetes mellitus, type 2 NIDDM Temporomandibular joint disorder NO PROBLEMS RECENTLY. Glaucoma WELL CONTROLLED Anxiety Depression Peripheral neuropathy BILATERAL FEET Hyperlipidemia Hypertension Chronic obstructive pulmonary disease Surgical History S/P JALIL-BSO History of total shoulder replacement RIGHT History of incision and drainage UMBILICAL ABSCESS Hx of umbilical hernia repair X4 -- WEARS SUPPORT BAND DAILY History of colonoscopy History of cholecystectomy History of appendectomy S/P tonsillectomy and adenoidectomy Family History Mother Diabetes mellitus, type 2 Aunt Diabetes mellitus, type 2 Social History Smoking Status: Current every day smoker Tobacco Type: Cigarettes Cigarettes Per Day: quit 1 year ago; Second Hand Exposure: No; Do You Dip or Chew Tobacco: No; Hx Alcohol Use: No Hx Substance Use: No Preferred Language: Surinamese Communication Ability: Impaired Client Services Representative Required: No Beliefs That Will Affect Care: None marital status: Current Living Situation: Spouse current occupational status: retired Feels Safe at Home: Yes Safety Concerns: Feels Safe At This Time Assistive Devices: Oxygen - Continuous and Wheelchair Review of Systems Respiratory: + cough and + dyspnea On oxygen Physical Exam Physical Exam: alert oriented Constitutional: + obese and cooperative; no acute distre ss Respiratory: normal respiratory effort and able to speak in complete sentences; no respiratory distress Cardiovascular: Rate/Rhythm: regular rate Results & Data Vital Signs (Past 12 Hours) Vital Signs Temp Pulse Resp BP BP Pulse Ox O2 Del Method 08/16/23 15:38 97.7 F 76 19 105/52 L 94 Nasal Cannula 08/16/23 13:00 66 18 94 Nasal Cannula 08/16/23 11:41 97.7 F 73 20 99/58 L 95 Nasal Cannula 08/16/23 08:11 97.7 F 68 20 122/72 95 Nasal Cannula 08/16/23 08:00 High Flow Nasal Cannula 08/16/23 06:59 94 High Flow Nasal Cannula 08/16/23 06:18 64 20 95 Nasal Cannula 08/16/23 04:00 92 High Flow Nasal Cannula O2 Flow Rate 08/16/23 15:38 08/16/23 13:00 5 08/16/23 11:41 08/16/23 08:11 5 08/16/23 08:00 5 08/16/23 06:59 1 08/16/23 06:18 10 08/16/23 04:00 2 PG Care Time/CCT Total # of Minutes Spent Total Time Spent with Patient: Total time spent is greater than 50% in coordination of care (as documented) at patient's floor/unit and/or counseling patient: Coding Level of Care Code 22874 INT INP/OBS CARE 1/40MIN Diagnoses Poor venous access I87.8
[2023-08-17] MEDS: INSULIN ASPART PER UNIT CHARGE SC SCH ×2 (05:58→21:05)
--- NOTE | 2023-08-17 07:46 | XRay Report ---
XR chest 1V portable CLINICAL HISTORY: f/u COMPARISON STUDY: Chest radiograph August 16, 2023. FINDINGS: Right shoulder arthroplasty is incidentally noted. Near-complete opacification of the left lung with volume loss has increased since prior exam. There is mild right basilar opacity. Interstiti al thickening within the right lung is unchanged. Leftward mediastinal shift due to left lung collaps e is present. IMPRESSION: 1. Near complete opacification of the left lung with volume loss which has increased since prior exam . This favors left lung collapse. 2. Mild right basilar opacity. 3. No pneumothorax. ACT 112: Negative or not required by law. Electronically signed by: Alan Sanches M.D. 08/17/2023 7:45 AM
--- NOTE | 2023-08-17 07:46 | History & Physical Bridge Note ---
Date of Service August 17, 2023 History & Physical Bridge Note I have examined the patient, reviewed the History & Physical and in the interval since the performance of the History & Physical I have noted the following changes of clinical significance: no changes noted
--- NOTE | 2023-08-17 09:08 | Palliative Care Consultation ---
Date of Consultation August 17, 2023 Assessment & Plan (1) Cancer related pain: (2) Weakness generalized: (3) Palliative care by specialist: Met with pt/family. Provided overview of Palliative Medicine, a subspecialty that provides specialized medical care for people living with a serious illness by offering a focus on quality of life. Palliative Medicine is often conflated with hospice: I advised patient/family that Palliative and hospice can be partners but we are not the same. It is important to understand the difference so that we may be informed, and not afraid. Palliative Medicine works to improve QOL through reduction of symptom burden/more control over their illness, for both the patient and family. Palliative medicine clinicians are board certified, specially-trained and another member of the patient's medical care team. We often provide an extra layer of support because our care is based on the needs of the patient, not the prognosis; as such, it's appropriate at any age/advancing stage of a serious illness and can be provided along with curative treatment. Palliative Medicine clinicians are also trained in advanced communication methodologies, to facilitate complex discussions about advanced illness planning, which are needed to help assure that the treatment choices match the patient's goals, aka delivering Goal Concordant care. Finally, we discussed that hospice is a visiting nurse service that focuses on care delivered at the very end of life for patients with terminal illness, with life expectancy less than 6 month. (4) Advanced care planning/counseling discussion: ACP face to face d/w pt, and dtr at bedside for 30 min, with another 15min outside of pt room with directly. with their consent and voluntary participation we reviewed her medical issues and events to date. She tells me she will never allow another bronch to be done - it was too painful and traumatizing. Family supportive. I had briefly met with last week while pt was in recovery. Family has had time to discuss over the weekend and are more accepting of pt wishes now. Daughter and at bedside agree if she does not want to return to hospital they will not force her. Pt states she wants to be home and stay home, no return to hospitals or nursing homes. She understands she has several incurable problems which are worsening in time and she wants a care plan focused on QOL and not prolonging with aggressive care. She identifies wanting to make the most of her time left with daughters and as her top goals. They ask what can be done to help assure pt has decent QOL and can be at home safely. We discussed hospice: We discussed the goals of hospice as a patient service and the goals of care; we discussed EOL trajectories and transitions tom the emotional impact of realizing mortality as a concrete reality from prior abstract considerations. Pt was reassured that no matter where they are along this trajectory, they are not alone - their medical team will remain by their side through their journey. Discussed the pros/cons of accepting help when especially weakened and distressed by pain-which would also help provide relief/decrease caregiver burden/strain. I provided education about the hospice benefit: an interdisciplinary program offered by nurses, nurses aides, social workers, chaplains and a medical records coordinator for patients with a terminal condition and a life expectancy of less than 6 months. This is covered by Medicare at 100%/no out of pocket expense to patient and all meds/supplies needed by patient for the reason they are on hospice are paid for/covered by hospice. The goal is assure quality of life of the patient in their home setting (home, jail, inpatient hospice setting) by providing symptoms management, psychosocial and spiritual support. However, they cannot offer 24 hours care and if the family is unable to provide that care, they will have to consider personal care with out of pocket cost vs. jail placement. We discussed the goals of hospice as a patient service and the goals of care; we discussed EOL trajectories and transitions tom the emotional impact of realizing mortality as a concrete reality from prior abstract considerations. Pt was reassured that no matter where they are along this trajectory, they are not alone - their medical team will remain by their side through their journey. Discussed the pros/cons of accepting help when especially weakened and distressed by pain-which would also help provide relief/decrease caregiver burden/strain. They are in agreement for hospice after SNF rehab trial. I advised her the SNF social worker school will need to sent referral to local hospice and they can let that social worker school know what agency they would like to come to their [facility]. They will directly communicate this preference with SNF social worker school/care mgt. Plan SNF rehab then home with hospice; she has been offered a bed at [facility] and accepted. Reaffirms DNR/DNI Suggest POLST completion - this can be done by primary team or SNF attending. Thank you for allowing us to participate in the ongoing care of this patient. Please don't hesitate to call or page with any additional concerns. Dr. Gabriela Peters DNP Director, Palliative Care History of Present Illness Reason for Consultation: On 08/16/23 @ 11:52 Razia Bentley Wrote To Gabriela Peters goals of care Attending Physician: Razia Bentley MD History of Present Illness Per admitting note: "Traci is a 72 year old female with a PMH significant for cor pulmonale, NSTEMI, subdural hematoma, subarachnoid hemorrhage, compression fractures, uncontrolled type 2 diabetes mellitus, HFpEF, pressure ulcers, COPD, and chronic hypoxic respiratory failure on baseline 4-5L O2 via NC who presented to the [facility] ED per EMS on 08/07/23 with complaints of increased weakness and a ground level fall. She was noted to be stable on arrival. Labs were remarkable for a calcium of 10.8, phos of 5.4, and full respiratory biofire negative. Chest xray was read as "Cardiomegaly with left greater than right mixed interstitial and alveolar opacities suggestive of asymmetric pulmonary edema. Multifocal pneumonia could appear similarly. ". Xray of the right knee was read as "1. Acute oblique nondisplaced fracture within the proximal shaft of the right fibula. Right ankle radiographs could be obtained to exclude a Maisonneuve fracture. 2. No additional fractures. Small right knee joint effusion.". Xray of the left knee and pelvis were negative for acute findings. Prior to admission the patient was given 125 mg IV solu-medrol and an albuterol treatment. At the time of the exam the patient was sitting in bed in no acute distress. She was recently placed on CPAP at 12/5 and 40% FiO2 and was tolerating it well. She is fatigued and responds appropriately to questions. She states that she fell while trying to get out of bed this am. She states that she has been weak and her legs gave out when trying to get out of bed this am. She denies losing consciousness or hitting her head. Currently, her only complaint is her RLE pain, she denies all other complaints at this time including fever, chills, chest pain, feeling SOB, abd pain, nausea, vomiting, diarrhea, dysuria, hematuria, melena, and increased LE swelling. We discussed code status and she confirms that she wishes to be a DNR/DNI. Her daughter would make medical decisions for her if she could not make them herself. I called and spoke to the Patient's Daughter, Raisa Knapp ([phone]), to obtain further history. She explains that the patient completed a 10 day course of Levaquin and 10 mg Prednisone prescribed on 07/20/23. Her Daughter states that the patient completed the course of both and was doing well. She has not been compliant with HS CPAP/Bipap which was prescribed during her last admission as she could not tolerate the mask. In regards to the patient's prescriptions for Seroquel and Ativan. Her daughter explains that she has been using both to help her sleep, for years. Recently, her dose of Ativan was increased from 0.5 mg to 1mg HS, on top of the 150 mg PO Seroquel she normally takes. She states that she checks on he mother multiple times a week and helps to bathe her. She denies the patient having any recent bed sores or ulcers." Pt is seen 08/20/23 after numerous attempts to see her 08/17/23 were not successful due to procedures including bronchoscopy. She tells me she will never allow another bronch to be done - it was too painful and traumatizing. Family supportive. She reaffirms no code. I had briefly met with last week while pt was in recovery. Family has had time to discuss over the weekend and are more accepting of pt wishes now. Daughter and at bedside agree if she does not want to return to hospital they will not force her. Allergies Allergy/AdvReac Type Severity Reaction Status Date / Time latex Allergy Severe 2ND DEGREE Verified 08/25/21 07:43 BURN FROM BANDAGE adhesive Allergy Intermediate RASH Verified 08/25/21 07:43 Home Medications Medication Instructions Recorded Confirmed Type aspirin 81 mg tablet,delayed 0 mg PO QPM 10/30/18 08/07/23 History release (Malcom Low Dose Aspirin) atorvastatin 80 mg tablet (Lipitor) 80 mg PO HS 10/30/18 08/07/23 History gabapentin 300 mg capsule 300 mg PO TID 10/30/18 08/07/23 History sitagliptin phosphate 100 mg 100 mg PO QPM 01/08/21 08/07/23 History tablet (Januvia) lisinopril 5 mg tablet 5 mg PO DAILY 12/13/21 08/07/23 History metformin 850 mg tablet 850 mg PO BID 12/13/21 08/07/23 History quetiapine 100 mg tablet 150 mg PO HS 12/13/21 08/07/23 History furosemide 40 mg tablet (Lasix) 0 mg PO DAILY 08/07/23 08/07/23 History potassium chloride 10 mEq 0 meq PO DAILY 08/07/23 08/07/23 History tablet,extended release lorazepam 1 mg tablet 1 mg PO BID 08/14/23 08/14/23 History doxycycline hyclate 100 mg capsule 100 mg PO BID #20 caps 08/20/23 Rx insulin glargine 100 unit/mL 20 unit (0.2 mL) subcut BID #30 mL 08/20/23 Rx subcutaneous solution (Lantus U-100 Insulin) ipratropium 0.5 mg-albuterol 3 mg 3 ml inhalation Q6R PRN #0 mL 08/20/23 Rx (2.5 mg base)/3 mL nebulization soln magnesium oxide 400 mg (241.3 mg 400 mg PO BID #20 tabs 08/20/23 Rx magnesium) tablet pantoprazole 40 mg tablet,delayed 40 mg PO BID #30 tabs 08/20/23 Rx release polyethylene glycol 3350 17 gram 17 g PO DAILY #14 ea 08/20/23 Rx oral powder packet (Miralax) sennosides 8.6 mg-docusate sodium 1 tab PO BID #60 tabs 08/20/23 Rx 50 mg tablet (Senokot-S) Patient History Medical History (Updated 08/20/23 @ 11:15 by Jodi Anaya, ADRIANNA) Advanced care planning/counseling discussion Palliative care by specialist Weakness generalized Cancer related pain Macrocytic anemia Shortness of breath Palliative care encounter Hyponatremia Complicated UTI (urinary tract infection) H/O defect LEFT ARM Diabetes mellitus, type 2 NIDDM Temporomandibular joint disorder NO PROBLEMS RECENTLY. Glaucoma WELL CONTROLLED Anxiety Depression Peripheral neuropathy BILATERAL FEET Hyperlipidemia Hypertension Chronic obstructive pulmonary disease Surgical History (Updated 08/20/23 @ 11:15 by Jodi Anaya, ADRIANNA) Port-A-Cath in place (08/17/23) Aport Insertion - Avery Kirkpatrick, DO S/P JALIL-BSO History of total shoulder replacement RIGHT History of incision and drainage UMBILICAL ABSCESS Hx of umbilical hernia repair X4 -- WEARS SUPPORT BAND DAILY History of colonoscopy History of cholecystectomy History of appendectomy S/P tonsillectomy and adenoidectomy Family History Mother Diabetes mellitus, type 2 Aunt Diabetes mellitus, type 2 Social History Smoking Status: Current every day smoker Tobacco Type: Cigarettes Cigarettes Per Day: quit 1 year ago; Second Hand Exposure: No; Do You Dip or Chew Tobacco: No; Hx Alcohol Use: No Hx Substance Use: No Preferred Language: Bulgarian Communication Ability: Impaired Advanced Solutions Architect Required: No Beliefs That Will Affect Care: None marital status: Current Living Situation: Spouse current occupational status: retired Feels Safe at Home: Yes Assistive Devices: Oxygen - Continuous and Wheelchair Review of Systems Review of Systems: All systems reviewed & are unremarkable except as noted in Subjective Physical Exam Constitutional: well nourished, + acute distress, + physical limitations, + frail appearing and cooperative Eyes: PERRL, conjunctivae normal, anicteric sclerae bitemp wasting ENMT: no stridor Neck: no thyromegaly Respiratory: inc effort, rhonchi, bronchitic cough Cardiovascular: tachy Gastrointestinal (Abdomen): +pannus obese abdomen Musculoskeletal: generalized weakness Skin: pale, cool Neurologic: AAOx3 Psychiatric: anxious seeks validation of her wishes and choices from family Results & Data Vital Signs (Past 12 Hours) Vital Signs Temp Pulse Pulse Resp BP Pulse Ox O2 Del Method 08/17/23 07:25 66 18 92 Nasal Cannula 08/17/23 07:03 36.8 C 63 18 125/66 96 Nasal Cannula 08/17/23 03:08 37 C 75 18 114/67 93 High Flow Nasal Cannula 08/16/23 23:07 High Flow Nasal Cannula 08/16/23 23:03 36.6 C 98 H 22 126/62 93 Nasal Cannula 08/16/23 22:00 75 O2 Flow Rate 08/17/23 07:25 6 08/17/23 07:03 5 08/17/23 03:08 5 08/16/23 23:07 5 08/16/23 23:03 08/16/23 22:00 Laboratory Results data reviewed Diagnostic Findings data reviewed PG Care Time/CCT Total # of Minutes Spent Total Time Spent with Patient: Total time spent is greater than 50% in coordination of care (as documented) at patient's floor/unit and/or counseling patient: I spent 120 minutes overall addressing this case: 20 min in medical data review/discussion with referring provider(s) and/or preparation for the visit 20min in direct interaction with the patient/exam 45 min in Advance Care Planning/Goals of Care discussions as detailed above in note (must be >16min) 15 min in subsequent review and synthesis of assessment and plan 20 min communicating with other providers regarding the patient's case: Advanced Care Planning 43097 Advanced Care Planning 30 Min 32027 Advanced Care Planning Additional 30 [place] [address] IN/OBS CONSULT LVL 5,80M Patient Type New History Comprehensive Exam Comprehensive Medical Decision Making High Complexity Diagnoses Cancer related pain G89.3 Weakness generalized R53.1 Palliative care by specialist Z51.5 Advanced care planning/counseling discussion Z71.89 Additional Codes Advanced Care Planning - 09024 Advanced Care Planning 30 Min: 47397 Advanced Care Planning 30 Min ([id number]) Advanced Care Planning - 80898 Advanced Care Planning Additional 30 Min: 14633 Advanced Care Planning Additional 30 Min ([id number])
--- NOTE | 2023-08-17 09:49 | Orthopedic Progress Note ---
Date of Service August 17, 2023 Assessment & Plan (1) Closed right fibular fracture: Plan: 11 days from fracture - right distal fibular fracture - nondisplaced. Maintain NWB RLE. Walker to assist with ambulation. May be able to only transfers from bed to chair. Elevate as needed for pain/swelling Cast is clean dry and intact left in place Will most likely need placement in a correction facility. Case management is following. Continue PT/OT. Patient understands and agrees with plan. Follow up in approximately 4 weeks as scheduled. Keep heels off of bed. Admission and Anticipated Discharge Date Admission Date: August 07, 2023 Subjective This 73-year-old female is seen today for follow-up of a right distal fibular fracture that was casted yesterday. She states that she would like to go to [facility] but states that she is not yet medically cleared because her oxygen saturation continues to be low and she refuses to use BiPAP. Currently she is on 3 L via nasal cannula. In regards to her right lower extremity, she states that the cast is comfortable to wear. She states she is able to lift her leg off the bed and move her knee and toes without issue. She understands that she will need to be in this cast for at least 6 weeks to allow for fracture healing. She also understands that she is to be nonweightbearing. Currently she denies chest pain, shortness of breath that is out of the ordinary, fever, chills, sweats or numbness or tingling in the right lower extremity. She also denies nausea, vomiting, diarrhea or difficulty voiding. Review of Systems Review of Systems: Please refer to HPI Physical Exam Physical Exam: Right lower extremity: Cast is clean dry and intact. Patient is able to perform active straight leg raise test. She is able to extend her knee 0 degrees and flex beyond 90 degrees. She has appropriate dexterity of the digits in her right foot. She is able to detect light sensation to touch over the pads of all digits. I was able to easily insert 2 fingers into the distal and proximal ends of the cast. Results & Data Vital Signs (Past 12 Hours) Vital Signs Temp Pulse Pulse Resp BP Pulse Ox O2 Del Method 08/17/23 07:25 66 18 92 Nasal Cannula 08/17/23 07:03 36.8 C 63 18 125/66 96 Nasal Cannula 08/17/23 03:08 37 C 75 18 114/67 93 High Flow Nasal Cannula 08/16/23 23:07 High Flow Nasal Cannula 08/16/23 23:03 36.6 C 98 H 22 126/62 93 Nasal Cannula 08/16/23 22:00 75 O2 Flow Rate 08/17/23 07:25 6 08/17/23 07:03 5 08/17/23 03:08 5 08/16/23 23:07 5 08/16/23 23:03 08/16/23 22:00 Diagnostic Findings Laboratory Results WBC 7.80 K/ul (4.8-10.8) 08/16/23 05:47 RBC 3.07 M/uL (4.20-5.40) L 08/16/23 05:47 Hgb 10.1 g/dl (12.0-16.0) L 08/16/23 05:47 POC Hgb 11.6 g/dl (12.0-16.0) L 08/16/23 08:31 Hct 32.6 % (37.0-47.0) L 08/16/23 05:47 POC Hct 34 % (37-47) L 08/16/23 08:31 MCV 106.2 fL (80.0-100.0) H 08/16/23 05:47 MCH 32.9 pg (25.0-34.0) 08/16/23 05:47 MCHC 31.0 g/dL (32.0-36.0) L 08/16/23 05:47 RDW Std Deviation 57.3 fL (36.4-46.3) H 08/16/23 05:47 RDW Coeff of Vikas 14.6 % (11.5-14.5) H 08/16/23 05:47 Plt Count 322 K/uL (130-400) 08/16/23 05:47 MPV 9.6 fL (9.4-12.4) 08/16/23 05:47 Immature Gran % (Auto) 0.5 % 08/16/23 05:47 Neut % (Auto) 72.4 % 08/16/23 05:47 Lymph % (Auto) 9.6 % 08/16/23 05:47 Williamson % (Auto) 14.6 % 08/16/23 05:47 Eos % (Auto) 2.3 % 08/16/23 05:47 Baso % (Auto) 0.6 % 08/16/23 05:47 Neut # (Auto) 5.64 K/uL (1.40-6.50) 08/16/23 05:47 Lymph # (Auto) 0.75 K/uL (1.20-3.40) L 08/16/23 05:47 Williamson # (Auto) 1.14 K/uL (0.11-0.59) H 08/16/23 05:47 Eos # (Auto) 0.18 K/uL (0.00-0.50) 08/16/23 05:47 Baso # (Auto) 0.05 K/uL (0.00-0.20) 08/16/23 05:47 Immature Gran # (Auto) 0.04 K/uL (0.01-0.20) 08/16/23 05:47 POC pH 7.40 (7.35-7.45) 08/16/23 08:31 POC pCO2 58 mmHg (35-46) H 08/16/23 08:31 POC pO2 65 mmHg (80-95) L 08/16/23 08:31 POC HCO3 36 rhett/L (19-24) H 08/16/23 08:31 POC Total CO2 38 mmol/L (24-31) H 08/16/23 08:31 POC Base Excess 11.0 rhett/L (-9-1.8) H 08/16/23 08:31 ABG pH 7.43 (7.35-7.45) 08/12/23 14:39 ABG pH (Temp Correct) 7.455 (7.35-7.45) H 08/13/23 11:50 ABG pCO2 60 mmHg (35-46) H 08/12/23 14:39 ABG pCO2 (Temp Corrct 50 mmHg (35-46) H 08/13/23 11:50 ABG pO2 67 mmHg (80-95) L 08/12/23 14:39 POC ABG pO2 at Pt Temp 84 08/13/23 11:50 ABG HCO3 40 mmol/L (19-24) H 08/12/23 14:39 POC ABG O2 Sat 92.0 % (90-95) 08/16/23 08:31 ABG O2 Saturation 92.6 % (90-95) 08/12/23 14:39 ABG Base Excess 12.8 mEq/L (-9-1.8) H 08/12/23 14:39 Zach Test Pos (Pos) 08/12/23 14:39 VBG pH 7.38 (7.36-7.41) 08/08/23 05:17 VBG pCO2 59 mmHg (38-50) H 08/08/23 05:17 VBG pO2 61 mmHg 08/08/23 05:17 VBG HCO3 35 mmol/L 08/08/23 05:17 VBG O2 Saturation 89.9 % 08/08/23 05:17 VBG Base Excess 7.7 mEq/L 08/08/23 05:17 Oxygen Given 7 08/12/23 14:39 POC FiO2 100 % 08/13/23 11:50 POC Sodium 137 mmol/L (135-144) 08/16/23 08:31 Sodium 139 mmol/L (136-145) 08/16/23 05:47 POC Potassium 3.7 mmol/L (3.3-5.0) 08/16/23 08:31 Potassium 4.0 mmol/L (3.5-5.1) 08/16/23 05:47 Chloride 93 mmol/L (98-107) L 08/16/23 05:47 Carbon Dioxide 38 mmol/L (21-32) H 08/16/23 05:47 Anion Gap 8 (3-11) 08/16/23 05:47 BUN 66 mg/dl (6-23) H 08/16/23 05:47 Creatinine 1.63 mg/dl (0.6-1.2) H 08/16/23 05:47 Est Cr Clr Drug Dosing 32.7 ml/min 08/16/23 05:47 Est GFR ( Amer) 36.1 ml/min 08/16/23 05:47 Est GFR (Non-Af Amer) 31.2 ml/min 08/16/23 05:47 BUN/Creatinine Ratio 40.5 (10-20) H 08/16/23 05:47 Glucose 157 mg/dl (70-99(Fasting)) H 08/16/23 05:47 POC Glucose 211 mg/dl (70-99) H 08/17/23 05:51 Calcium 9.3 mg/dl (8.6-10.3) 08/16/23 05:47 Phosphorus 5.4 mg/dl (2.5-4.9) H 08/07/23 11:33 Magnesium 2.5 mg/dl (1.7-2.4) H 08/16/23 05:47 Total Bilirubin 0.4 mg/dl (0.2-1.0) 08/07/23 11:33 AST 20 U/L (13-39) 08/07/23 11:33 ALT 19 U/L (7-52) 08/07/23 11:33 Alkaline Phosphatase 65 U/L (34-104) 08/07/23 11:33 Total Creatine Kinase 130 U/L (26-192) 08/07/23 11:33 Troponin I High Sens 12.6 pg/ml (0-14) 08/07/23 11:33 B-Natriuretic Peptide 31 pg/ml (0-100) 08/07/23 11:33 Total Protein 7.2 gm/dl (6.0-8.3) 08/07/23 11:33 Albumin 4.0 gm/dl (3.4-5.0) 08/07/23 11:33 Globulin 3.2 gm/dl (2.5-4.0) 08/07/23 11:33 Albumin/Globulin Ratio 1.3 (0.9-2) 08/07/23 11:33 Lipase 29 U/L (11-82) 08/07/23 11:33 Procalcitonin < 0.05 ng/ml (0-0.5) 08/07/23 11:33 Random Cortisol 22.50 mcg/dl 08/07/23 11:33 Urine Color Yellow 08/07/23 16:11 Urine Appearance Clear (Clear) 08/07/23 16:11 Urine pH 5.5 (4.5-7.5) 08/07/23 16:11 Ur Specific [place] 1.016 (1.000-1.030) 08/07/23 16:11 Urine Protein Negative (Negative) 08/07/23 16:11 Urine Glucose (UA) Trace (Negative) H 08/07/23 16:11 Urine Ketones Trace (Negative) H 08/07/23 16:11 Urine Blood Negative (Negative) 08/07/23 16:11 Urine Nitrite Negative (Negative) 08/07/23 16:11 Urine Bilirubin Negative (Negative) 08/07/23 16:11 Urine Urobilinogen Negative (Negative) 08/07/23 16:11 Ur Leukocyte Esterase Negative (Negative) 08/07/23 16:11 Fluid Neutrophils % 91 % 08/15/23 Unknown Fluid Lymphocytes % 2 % 08/15/23 Unknown Fluid Eosinophils % 1 % 08/15/23 Unknown Fl Monocyt/Macrophag % 6 % 08/15/23 Unknown Fluid Comment 08/15/23 Unknown Stool Occult Bld Scrn Positive (Negative) A 08/10/23 11:19 Adenovirus (PCR) Not Detected (NotDetected) 08/07/23 11:39 B. pertussis DNA (PCR) Not Detected (NotDetected) 08/07/23 11:39 B.parapertussis DNA PCR Not Detected (NotDetected) 08/07/23 11:39 C. pneumoniae DNA (PCR) Not Detected (NotDetected) 08/07/23 11:39 Coronavirus OC43 (PCR) Not Detected (NotDetected) 08/07/23 11:39 Coronavirus HKU1 (PCR) Not Detected (NotDetected) 08/07/23 11:39 Coronavirus 229E (PCR) Not Detected (NotDetected) 08/07/23 11:39 SARS-CoV-2 (PCR) Not Detected (NotDetected) 08/07/23 11:39 Coronavirus NL63 (PCR) Not Detected (NotDetected) 08/07/23 11:39 Human Metapneumovir PCR Not Detected (NotDetected) 08/07/23 11:39 Influenza Type A (PCR) Not Detected (NotDetected) 08/07/23 11:39 Influenza Type B (PCR) Not Detected (NotDetected) 08/07/23 11:39 M. pneumoniae (PCR) Not Detected (NotDetected) 08/07/23 11:39 Parainfluenza 1 (PCR) Not Detected (NotDetected) 08/07/23 11:39 Parainfluenza 2 (PCR) Not Detected (NotDetected) 08/07/23 11:39 Parainfluenza 3 (PCR) Not Detected (NotDetected) 08/07/23 11:39 Parainfluenza 4 (PCR) Not Detected (NotDetected) 08/07/23 11:39 RSV (PCR) Not Detected (NotDetected) 08/07/23 11:39 Entero/Rhino (PCR) Not Detected (NotDetected) 08/07/23 11:39 Impressions Knee X-Ray 08/07/23 12:06 XR knee LT 1 or 2V routine CLINICAL HISTORY: pain fall. Left knee pain. COMPARISON STUDY: Left femur 01/04/2016. FINDINGS: Mild chondrocalcinosis within the left knee. Mild cartilage space narrowing within the medial compartment consistent with degenerative change. No acute fracture or dislocation. Mild vascular calcifications are noted. No knee effusion. IMPRESSION: No fracture or dislocation within the left knee. ACT 112: Negative or not required by law. Electronically signed by: Mauri Guzman M.D. 08/07/2023 1:20 PM Pelvis X-Ray 08/07/23 12:06 XR pelvis 1-2V routine CLINICAL HISTORY: pain fall. Pelvic pain. COMPARISON STUDY: Pelvis 01/09/2021. FINDINGS: No fracture or dislocation within the pelvis or hips. The sacrum is intact. 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 Bowel contents inferior to the pelvis consistent the patient's known large ventral hernia. IMPRESSION: 1. No fracture or dislocation within the pelvis or hips. 2. Large ventral hernia again noted. ACT 112: Negative or not required by law. Electronically signed by: Mauri Guzman M.D. 08/07/2023 1:22 PM Hip/Pelvis X-Ray 08/07/23 17:04 XR hip JESUS 2v w pelvis CLINICAL HISTORY: Pelvic and hip pain s/p fall . want A/P and lateral views of b/L COMPARISON STUDY: Pelvis 08/07/2023. FINDINGS: There is moderate osteoarthritis within the bilateral hips. No fracture or dislocation within the right or left hip. The sacrum is intact. Vascular calcifications are noted. There are suggestive of a nondisplaced fracture within the left superior pubic ramus. IMPRESSION: 1. Possible nondisplaced fracture within the left superior pubic ramus. Recommend correlate for point tenderness. 2. Otherwise, no fracture or dislocation within the bilateral hips. 3. Moderate osteoarthritis within the bilateral hips. ACT 112: Negative or not required by law. Electronically signed by: Mauri Guzman M.D. 08/07/2023 6:59 PM Ankle X-Ray 08/16/23 09:04 RIGHT ANKLE 3 VIEWS HISTORY: follow up, fracture distal fibula COMPARISON: Right ankle radiograph 08/07/2023. FINDINGS: There is again noted an oblique fracture within the distal right fibula which is not significantly displaced. This is similar to the prior study. No evidence for healing at this time. The distal tibia appears intact. No dislocation. Soft tissue swelling within the right ankle. Plantar and posterior calcaneal spurs are noted. No radiopaque foreign bodies. IMPRESSION: No significant change in the nondisplaced distal right fibular fracture. ACT 112: Negative or not required by law. Electronically signed by: Mauri Guzman M.D. 08/16/2023 9:50 AM Chest X-Ray 08/17/23 07:00 XR chest 1V portable CLINICAL HISTORY: f/u COMPARISON STUDY: Chest radiograph August 16, 2023. FINDINGS: Right shoulder arthroplasty is incidentally noted. Near-complete opacification of the left lung with volume loss has increased since prior exam. There is mild right basilar opacity. Interstitial thickening within the right lung is unchanged. Leftward mediastinal shift due to left lung collapse is present. IMPRESSION: 1. Near complete opacification of the left lung with volume loss which has increased since prior exam. This favors left lung collapse. 2. Mild right basilar opacity. 3. No pneumothorax. ACT 112: Negative or not required by law. Electronically signed by: Alan Sanches M.D. 08/17/2023 7:45 AM (1) Closed right fibular fracture Encounter type: initial encounter Fibula location: proximal Fracture morphology: unspecified fracture morphology Qualified Code(s): S82.831A - Other fracture of upper and lower end of right fibula, initial encounter for closed fracture
[2023-08-17] MEDS ORDERED: MIDAZOLAM HCL 1 MG/ML 2ML VIAL ONE (10:32)
[2023-08-17] MEDS ORDERED: fentaNYL citrate PF 100 MCG/2 ML VIAL ONE (10:32)
[2023-08-17] MEDS ORDERED: PROPOFOL IV EMULSION 10 MG/ML 20 ML VIAL IV ONE (10:36)
[2023-08-17] MEDS ORDERED: LIDOCAINE 2% 2 ML VIAL/AMP(20MG/ML) INFIL ONE (10:36)
[2023-08-17] MEDS ORDERED: ONDANSETRON INJ 2 MG/ML 2 ML VIAL ONE (10:36)
[2023-08-17] MEDS ORDERED: KETAMINE HCL 10MG/ML SYR ONE (10:37)
--- NOTE | 2023-08-17 10:37 | Pulmonology Progress Note ---
Date of Service August 17, 2023 Assessment & Plan (1) Atelectasis of left lung: (2) Acute on chronic respiratory failure with hypoxia and hypercapnia: (3) Mucoid impaction of bronchi: (4) Morbid obesity: (5) Generalized weakness: Plan IMPRESSION: 73-year-old female with complex past medical history who presents with worsening atelectasis of the LEFT-sided lung with near collapse and acute on chronic hypoxic respiratory failure with hypercapnia. RECOMMENDATIONS: 1. LEFT lung collapse - Still with aeration of the LEFT lung apex noted on AM CXR which is improved from yesterday s/p bronch on 08/15. Will need to continue with aggressive chest PT. Again, continue with Mucinex, hypertonic saline, CoughAssist, and Mucomyst. BiPAP as needed. Follow-up CXR in the AM. 2. Acute on chronic respiratory failure with hypoxia and hypercapnia - In the setting of atelectasis with LEFT lung collapse. Patient would benefit from ongoing BiPAP therapy as previously written during prior hospitalization. Patient is experiencing a degree of hypercapnia which is likely multifactorial in the morbidly obese patient with decreased ventilatory function in the setting of severe atelectasis. Would encourage ongoing BiPAP use as well as aggressive chest PT. 3. Mucoid impaction - Patient likely with mucoid impaction of the LEFT bronchi appears to have happened again based on today's imaging. 4. Morbid obesity - Unfortunately this is negatively affecting the patient's respiratory status including her ventilatory function. 5. Generalized weakness - Continue workup per primary service. Certainly her profound weakness could be contributing to her poor ventilatory effort, poor cough, and poor airway clearance. Recommend ongoing evaluation of of this weakness if it has not been completed to this point. 6. Pneumonia - With aeration of the LEFT-sided lung field, there is concern for infiltrative process. Continue with doxycycline and Rocephin empirically. Plan: S/p repeat bronchoscopy 08/14/2023 with significant mucous plugging Chest x-ray from today again unfortunately shows whiteout of the left lung. Bronchoscopy will be pursued as patient is already going for port placement and will be under anesthesia. Consent was obtained from patient's who was at bedside. Risk and benefit of the procedure were explained to the patient in depth. Continue with antibiotics for at least 10 days. Continue with nebulized N-acetylcysteine, nebulized hypertonic saline along with DuoNebs. Flutter valve, chest PT and CoughAssist Recommend keeping O2 saturation around 90-92%. Do not over oxygenate the patient There is discrepancy between what patient wishes are and what the wishes of the family are. Would recommend palliative care to get consulted and help sort this out Today I do think patient has the capacity to make decisions. Case was discussed with Dr. Bentley Please note the above document was generated using voice recognition software. It may contain grammatical, syntax or spelling errors.Any formal questions or concerns about the content, text or information contained within the body of this dictation should be directly addressed to the provider for clarification. Admission and Anticipated Discharge Date Admission Date: August 07, 2023 Subjective Patient seen and examined at bedside. No acute distress, no adverse events overnight. Patient's was in the room. I saw her in the [facility] She is scheduled to have a port placement by Dr. Kirkpatrick. Denies any headache, No nausea or vomiting Review of Systems 2 Review of Systems: All systems reviewed & are unremarkable except as noted in Subjective Physical Exam 2 Physical Exam: Constitutional: No acute distress HEENT: EOMI, PERRLA Respiratory system: Decreased air entry on the left side (improved from before), no wheeze, no rhonchi, positive crackles bilaterally CVS: S1-S2 positive, no murmurs or gallops Abdomen: Soft, nontender, nondistended, positive bowel sounds x4, obese Extremities: +2 pulses bilaterally radialis/ dorsalis pedis, no cyanosis, +1 pitting edema left lower extremity, right lower extremity in splint Neuro: Awake, oriented to self Psych: Normal mood and affect G/U: Positive Deleon Skin: no rashes, warm and dry Lymphatic: no cervical or axillary lymphadenopathy Results & Data Results & Data Vital Signs (Past 12 Hours) Vital Signs Temp Pulse Resp BP Pulse Ox O2 Del Method O2 Flow Rate 08/17/23 10:33 36.0 C L 77 18 118/68 96 Nasal Cannula 6 08/17/23 07:25 66 18 92 Nasal Cannula 6 08/17/23 07:03 36.8 C 63 18 125/66 96 Nasal Cannula 5 08/17/23 03:08 37 C 75 18 114/67 93 High Flow Nasal Cannula 08/16/23 23:07 High Flow Nasal Cannula 5 08/16/23 23:03 36.6 C 98 H 22 126/62 93 Nasal Cannula Laboratory Results 08/16/23 05:47 08/16/23 05:47 PG Care Time/CCT Total # of Minutes Spent Total Time Spent with Patient: Total time spent is greater than 50% in coordination of care (as documented) at patient's floor/unit and/or counseling patient: Coding Level of Care Code 10628 SUB INP/OBS CARE 3/50MIN Diagnoses Atelectasis of left lung J98.11 Acute on chronic respiratory failure with hypoxia and hypercapnia J96.21; J96.22 Mucoid impaction of bronchi T17.500A Morbid obesity E66.01 Generalized weakness R53.1
[2023-08-17] MEDS ORDERED: DexMEDEtomidine HCL IV 100 MCG/ML VIAL IV ONE (11:19)
[2023-08-17] MEDS ORDERED: ceFAZolin 330 MG/ML 1 GM VIAL ONE (12:32)
[2023-08-17] MEDS: HEPARIN (PORCINE) 1000 UNIT/ML 10 ML (CATH LAB USE ONLY) ONE (12:46)
[2023-08-17] MEDS: BUPIVACAINE/EPINEPHRINE 0.5% MPF 1:200,000 30 ML VIAL ONE (12:49)
--- NOTE | 2023-08-17 13:02 | Operative Report ---
PG Post Operative Report Pre & Post Diagnosis Operation Date: 08/17/23 11:00 Pre-Op Diagnosis: Acute on chronic respiratory failure with hypoxia and hypercapnia, Fall, Poor venous access Post-Op Diagnosis: Acute on chronic respiratory failure with hypoxia and hypercapnia, Fall, Poor venous access I identified the patient and participated in the time-out.: Yes Procedure Operation Date: 08/17/23 11:00 Actual Procedures p Aport Insertion - Avery Kirkpatrick DO s Bronchoscopy(Not Applicable) - Adelina Jean-Baptiste MD, [facility] Surgeon Avery Kirkpatrick, [employer] n/a Estimated Blood Loss 5 (from port placement ) Findings Consistent with Post-Op Diagnosis Specimens none Description of Procedure After informed consent was obtained the patient was taken the operating room placed in supine position. IV sedation was administered by anesthesia and titrated to effect. Both arms were then tucked. The upper chest area was sterilely prepped and draped in usual fashion. We then used a 15 blade scalpel to make a horizontal incision. I carried this down through the soft tissue using electrocautery to the pectoralis fascia. I then used blunt finger dissection to create a small pocket. I then used an 18-gauge finder needle to access the subclavian vein. A guidewire was advanced under fluoroscopy into the superior vena cava. We then measured and cut the catheter to appropriate size and then thoroughly flushed the entire system with a heparin solution. Next we advanced a vascular dilator with peel-away sheath over the guidewire again using fluoroscopy. We then pulled out the dilator as well as the guidewire leaving the peel-away sheath in place. The catheter was advanced through the peel-away sheath and the port itself was placed into the housing pocket. We then peeled the sheath away leaving the catheter. We verified position using fluoroscopy. The catheter was then flushed with heparin solution. It withdrew dark venous blood easily. The port was then secured to the muscle using 0 Ethibond with 3 point fixation. The wound was thoroughly irrigated and closed in 2 layers using 3-0 Monocryl for both layers. A sterile dressing was applied. The patient was awakened and transferred to recovery in stable condition. A postoperative portable chest x-ray is currently pending to rule out pneumothorax and the verify catheter position. I attest to the content of the Intraoperative Record and any orders documented therein. Any exceptions are noted below. I attest to the content of the Intraoperative Record and any orders documented therein. Any exceptions are noted below.
[2023-08-17] MEDS ORDERED: PHENYLEPHRINE HCL 10 MG/ML VIAL ONE (13:03)
[2023-08-17] MEDS ORDERED: SUGAMMADEX SODIUM 200 MG/2 ML VIAL IV ONE (13:06)
--- NOTE | 2023-08-17 13:43 | Procedure Note ---
Procedure Note: Bronchoscopy Procedure PREOPERATIVE DIAGNOSIS: Left lung collapse POSTOPERATIVE DIAGNOSIS: Mucous plugging of the left lung PROCEDURE PERFORMED: Flexible fiberoptic bronchoscopy with airway clearance COMPLICATIONS: None. INDICATION: Left lung collapse PROCEDURE: After obtaining an informed consent from patient's , the patient was brought to the OR. Sedation was managed by anesthesia, please refer to their note Bronchoscope was advanced through the ETT Thick grayish-white mucus/phlegm was appreciated right at the michelle going into the left main. It was difficult to suction and I had to take the bronchoscope out multiple times to get rid of the phlegm The trachea appeared normal.The bronchoscope was then advanced through the michelle, which was sharp. The scope was then advanced into the right main stem and each segment, subsegement in the right upper lobe, right middle lobe and right lower lobe were visualized. There was minimal amount of clear secretion which was suctioned out. There were no other findings including evidence of mass, anatomic distortions, or hemorrhage. The bronchoscope was subsequently withdrawn and advanced into the left mainstem. Thick grayish-white phlegm was appreciated which was obstructing left upper as well as left lower. Mucomyst was instilled and phlegm was subsequently suctioned out. After suctioning again, each segment and subsegment was well visualized. No specific masses or other lesions were identified throughout the tracheobronchial tree on the left. Mucosa of the left lung was edematous and easily friable. This is similar to previous bronchoscopies The bronchoscope was then withdrawn to the mainstem. The area was suctioned clear. The bronchoscope was then withdrawn. The patient tolerated the procedure well without evidence of desaturation or complications. No samples were taken. Recommendations: Follow-up chest x-ray Please note the above document was generated using voice recognition software. It may contain grammatical, syntax or spelling errors.Any formal questions or concerns about the content, text or information contained within the body of this dictation should be directly addressed to the provider for clarification. [facility] [place] Procedure Codes (Charges) Pulmonary/Thoracic Procedure 1: Pulmonary and Thoracic: 98065 Bronchoscopy, clear airways
--- NOTE | 2023-08-17 14:22 | Anesthesiology Progress Note ---
Date of Service August 17, 2023 Anesthesia Post Procedure Vital Signs Vital Signs: Temp Pulse Pulse Pulse Resp BP BP 08/17/23 14:10 81 25 H 161/47 H 08/17/23 14:00 75 25 H 139/84 08/17/23 13:53 75 31 H 08/17/23 13:51 36.5 C 70 27 H 135/58 L 08/17/23 13:42 08/17/23 10:33 36.0 C L 77 18 118/68 08/17/23 08:00 08/17/23 08:00 73 08/17/23 07:25 66 18 08/17/23 07:03 36.8 C 63 18 125/66 08/17/23 03:08 37 C 75 18 114/67 08/16/23 23:07 08/16/23 23:03 36.6 C 98 H 22 126/62 08/16/23 22:00 75 08/16/23 20:03 36.4 C L 75 20 115/69 08/16/23 19:57 66 18 08/16/23 15:38 36.5 C 76 19 105/52 L Pulse Ox O2 Del Method O2 Flow Rate FiO2 08/17/23 14:10 95 BiPAP 08/17/23 14:00 93 BiPAP 08/17/23 13:53 94 65 08/17/23 13:51 95 BiPAP 08/17/23 13:42 Mechanical Vent 08/17/23 10:33 96 Nasal Cannula 6 08/17/23 08:00 High Flow Nasal Cannula 5 08/17/23 08:00 08/17/23 07:25 92 Nasal Cannula 6 08/17/23 07:03 96 Nasal Cannula 5 08/17/23 03:08 93 High Flow Nasal Cannula 5 08/16/23 23:07 High Flow Nasal Cannula 5 08/16/23 23:03 93 Nasal Cannula 08/16/23 22:00 08/16/23 20:03 90 Nasal Cannula 08/16/23 19:57 90 Nasal Cannula 6 08/16/23 15:38 94 Nasal Cannula Pain Intensity Back: Pain Intensity: 9 Transfer of Care Handoff Completed per policy Notes Mental Status: alert / awake / arousable Patient Amnestic to Procedure: Yes Nausea / Vomiting: adequately controlled Pain: adequately controlled Airway Patency, RR, SpO2: see Notes below (BiPap) BP & HR: stable & adequate Hydration State: stable & adequate Anesthetic Complications: no major complications apparent
--- NOTE | 2023-08-17 15:10 | XRay Report ---
XR chest 1V portable HISTORY: s/p port placement, obtain in PACU COMPARISON: Chest 08/17/2023. FINDINGS: Improved aeration within the left lung compared to the prior study. Cardiomegaly persists. Left perihilar airspace opacities are noted. There is diffuse interstitial/vascular thickening consis tent with pulmonary edema. Suspect small bilateral pleural effusions. Deformity within the left shoul khoi again noted. There is right shoulder prosthesis. A left subclavian Port-A-Cath terminates over th e aortic knob. This could be within the left brachiocephalic vein when compared to the 05/25/[address] [facility] [address]. An arterial location is not excluded. IMPRESSION: 1. No pneumothorax. 2. A left subclavian Port-A-Cath terminates over the aortic knob. This could be within the left brach iocephalic vein when compared to the 05/25/[address] An arterial location is not excluded. 3. Improved aeration within the left lung. 4. Cardiomegaly and pulmonary edema again noted. ACT 112: Negative or not required by law. Electronically signed by: Mauri Guzman M.D. 08/17/2023 3:08 PM
--- NOTE | 2023-08-17 15:48 | Hospitalist Progress Note ---
Date of Service August 17, 2023 Assessment & Plan (1) Pneumonia: Plan: With thick mucus plugging and left lung collapse requiring bronch 08/13 with some improvement on CXR 08/14 With recurrent collapse left lung 08/15--> underwent repeat bronch with further mucous plugging removed on 08/15 and again on 08/17 Chest x-ray temporarily will show some aeration in the left upper lobe and at other times complete whiteout on the left Remains on supplemental oxygen 6 L and now on BiPAP postoperative lady-wean off as tolerated SPutum cx from bronch negative, was on ceftriaxone and doxy but without IV access-changed to cefdinir and p.o. doxycycline-now that she has a port placed- changed to IV Zosyn and p.o. doxycycline Continue pulm toilet Appreciate PULM consult Follow chest x-ray (2) Pulmonary atelectasis: Plan: as above, status post multiple Bronchs follow CXR BiPAP qhs although she is refusing this most of the time and has been reports she refuses to wear it at home (3) Toxic encephalopathy: Plan: secondary to hypoxia,hypercarbia mild, now on bipap at night when tolerates, also sedating meds to avoid withdrawal, resumed lorazepam from home at lower dose of 0.5mg po bid and resume Seroquel lower dose 100mg po hs Much improved keep blinds open during the day and supportive care, work on sleep at night reports she frequently gets hospital delirium gabapentin from home remains on hold and would likely permanently discontinue (4) EYAD (acute kidney injury): Plan: Creatinine increased to 1.7 and now improved to normal after starting IV fluids Likely secondary to being n.p.o. and not receiving fluids previously Continue 1 more liter of IV fluids until tolerating p.o. and then stop Follow BMP Continue to hold lisinopril (5) Right fibular fracture: Plan: Orthopedic consultation appreciated. No surgical intervention needed. Right lower extremity has been immobilized and elevated. Pain control measures. 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 for prolonged time Fluids as above Continue to hold Lasix (7) Upper GI bleed: Plan: She developed melena and stools are Hemoccult positive. Lovenox has been discontinued. GI consultation has been requested but refused by the patient. She is not willing to undergo endoscopic evaluation and states she has had intermittent melena for quite some time. The is present and is aware. Fortunately, hemoglobin level is stable again today at 10.3 follow CBC (8) Closed fracture of left pelvis: Plan: Left superior ramus fracture noted on x-ray. Supportive care. Pain control measures. (9) Chronic respiratory failure with hypoxia and hypercapnia: Plan: Acute on chronic exacerbation. Due to exacerbation of CHF and left mainstem mucous plug. Continue O2 to keep POx> 90%, BiPAP at night if tolerates Serum bicarbonate continues to trend upward as she refuses to wear BiPAP at night (10) Uncontrolled type 2 diabetes mellitus with hyperosmolarity, without long- term current use of insulin: Plan: ADA diet. Sliding scale coverage. Lantus dosage uptitrated on August 08 and August 09. -continue same Lantus dose-may need to increase further once starts eating again (11) Chronic right-sided congestive heart failure: Plan: Known chronic cor pulmonale. Stable. Continue current medical management (12) Hypertension: Plan: Stable. Hold lisinopril for EYAD (13) Morbid obesity: Plan: BMI greater than 40. Significant weight loss recommended (14) Macrocytic anemia: Plan: B12, folate normal recently could be MDS? gets iron infusions as outpt and most recent Fe levels normal She did receive 1 dose of Venofer while here follow CBC Plan DVT proph-SCD to left leg, no Lovenox due to GIB Dispo-guarded prognosis, continued stay on tele. Had discussion with patient and she is tired of doing procedures and says she is okay if she dies, but her and daughter are strongly encouraging her to continue ahead and so she is agreeable for now. Palliative medicine consultation placed for further goals of care discussion appreciated Admission and Anticipated Discharge Date Admission Date: August 07, 2023 Subjective Patient seen after return from port placement and repeat bronchoscopy She is currently on BiPAP and repeatedly trying to remove it from her face as she cannot tolerate it. Granddaughter at the bedside-I discussed her care with her Physical Exam Constitutional: + ill appearing and + obese Respiratory: normal respiratory effort; no cough Auscultation: + diminished lung sounds (throughout left side); no wheezes Cardiovascular: RRR, no murmur, no edema Gastrointestinal (Abdomen): normal bowel sounds, soft, nontender, no hepatosplenomegaly Musculoskeletal: Shoulder: + shoulder abnormal to inspection (dislocated shoulder,humerus deformity) Psychiatric: Orientation: alert Results & Data Results & Data Vital Signs (Past 12 Hours) Vital Signs Temp Pulse Pulse Pulse Resp BP Pulse Ox 08/17/23 15:16 84 08/17/23 14:30 36.5 C 78 24 131/59 L 95 08/17/23 14:20 80 24 129/59 L 95 08/17/23 14:10 81 25 H 161/47 H 95 08/17/23 14:00 75 25 H 139/84 93 08/17/23 13:53 75 31 H 94 08/17/23 13:51 36.5 C 70 27 H 135/58 L 95 08/17/23 13:42 08/17/23 10:33 36.0 C L 77 18 118/68 96 08/17/23 08:00 08/17/23 08:00 73 08/17/23 07:25 66 18 92 08/17/23 07:03 36.8 C 63 18 125/66 96 O2 Del Method O2 Flow Rate FiO2 08/17/23 15:16 08/17/23 14:30 BiPAP 08/17/23 14:20 BiPAP 08/17/23 14:10 BiPAP 08/17/23 14:00 BiPAP 08/17/23 13:53 65 08/17/23 13:51 BiPAP 08/17/23 13:42 Mechanical Vent 08/17/23 10:33 Nasal Cannula 6 08/17/23 08:00 High Flow Nasal Cannula 5 08/17/23 08:00 08/17/23 07:25 Nasal Cannula 6 08/17/23 07:03 Nasal Cannula 5 Laboratory Results CBC, BMP, cytology from bronchoscopy, magnesium, bronchial lavage cultures all reviewed PG Care Time/CCT Total # of Minutes Spent Total Time Spent with Patient: Total time spent is greater than 50% in coordination of care (as documented) at patient's floor/unit and/or counseling patient: Coding Level of Care Code 60453 SUB INP/OBS CARE 50MIN Diagnoses Pneumonia J18.9 Pulmonary atelectasis J98.11 Toxic encephalopathy G92.9 EYAD (acute kidney injury) N17.9 Right fibular fracture S82.401A Acute on chronic diastolic CHF (congestive heart failure) I50.33 Upper GI bleed K92.2 Closed fracture of left pelvis S32.9XXA Chronic respiratory failure with hypoxia and hypercapnia J96.11; J96.12 Uncontrolled type 2 diabetes mellitus with hyperosmolarity, without long-term current use of insulin E11.00 Chronic right-sided congestive heart failure I50.812 Essential hypertension I10 Hypertension type: essential hypertension Morbid obesity E66.01 Macrocytic anemia D53.9 (12) Hypertension Hypertension type: essential hypertension Qualified Code(s): I10 - Essential (primary) hypertension
[2023-08-17] MEDS: CEFDINIR 300 MG CAP PO SCH (16:19)
[2023-08-17] MEDS: D5W AND LACTATED RINGERS 1,000 ML IV SCH (16:27)
[2023-08-17] MEDS: DOXYCYCLINE HYCLATE 100 MG CAP PO SCH (16:27)
[2023-08-17 16:31] LABS: Basophils # (auto) 0.05 K/uL (0.00-0.20); Basophils % (auto) 0.8 %; Eosinophils # (auto) 0.05 K/uL (0.00-0.50); Eosinophils % (auto) 0.8 %; Hematocrit (blood only) 32.8 % (37.0-47.0); Hemoglobin 10.3 g/dl (12.0-16.0); Immature Granulocytes # (auto) 0.04 K/uL (0.01-0.20); Immature Granulocytes % (auto) 0.6 %; Lymphocytes # (auto) 0.58 K/uL (1.20-3.40); Lymphocytes % (auto) 9.3 %; Mean Corpuscular Hemoglobin 32.6 pg (25.0-34.0); Mean Corpuscular Hgb Conc 31.4 g/dL (32.0-36.0); Mean Corpuscular Volume 103.8 fL (80.0-100.0); Mean Platelet Volume 9.5 fL (9.4-12.4); Monocytes # (auto) 0.75 K/uL (0.11-0.59); Neutrophils # (auto) 4.77 K/uL (1.40-6.50); Neutrophils % (auto) 76.5 %; Platelet Count 371 K/uL (130-400); RDW Coefficient of Variation 14.1 % (11.5-14.5); RDW Standard Deviation 53.9 fL (36.4-46.3); Red Blood Count 3.16 M/uL (4.20-5.40); White Blood Count 6.24 K/ul (4.8-10.8)
[2023-08-17 16:36] LABS: Calcium 9.8 mg/dl (8.6-10.3); Magnesium 2.7 mg/dl (1.7-2.4); Potassium 3.6 mmol/L (3.5-5.1)
[2023-08-17 16:44] LABS: BUN Creatinine Ratio 56.8 (10-20); Creatinine Clr Calc Pharmacy 66.9 ml/min; Est GFR (African American) 84.1 ml/min; Est GFR (Non-African American) 72.6 ml/min
[2023-08-17] MEDS: PIPER/TAZO 4.5g in D5W MINI-B 100 ML IV ONE (16:48)
[2023-08-17] MEDS: PIPERACILLIN/TAZOBACTAM 4.5 GM in DEXTROSE 5% MINI-B 100 ML IV SCH (21:26)
--- NOTE | 2023-08-18 02:00 | Communication Note ---
Date of Service: August 18, 2023 Brief Palliative Note Consult received/appreciated/chart reviewed Attempted to see pt multiple times today and she was off unit for procedures and bronchoscopy Discussed case with primary team/Dr Bentley and reviewed teams' concerns re inconsistent goals of care and family conflicts. I met with face to face x25min in the room, he shared that they have not been able to come to an agreement but feels pt has a lot of poorly controlled symptoms which have her feeling so poorly that she is rushing to make decisions more about end of life care vs trying to get better. He admits he may not have the in depth understanding of her medical complex issues. He would like to have a meeting together with pt. We agreed to meet Sunday at approx 10am, after he drops his son off to work and comes to [facility]. Consult note is in draft status. Pt has NOT been seen and NO charge has been submitted. TS 55min: chart review, d/w medical teams, nursing and face to face d/w pt in the room Thank you for allowing us to participate in the ongoing care of this patient. Please don't hesitate to call or page with any additional concerns. Dr. Gabriela Peters DNP Director, Palliative Care
[2023-08-18 06:39] LABS: Basophils # (auto) 0.05 K/uL (0.00-0.20); Basophils % (auto) 0.7 %; Eosinophils # (auto) 0.26 K/uL (0.00-0.50); Eosinophils % (auto) 3.9 %; Hematocrit (blood only) 28.8 % (37.0-47.0); Hemoglobin 9.1 g/dl (12.0-16.0); Immature Granulocytes # (auto) 0.03 K/uL (0.01-0.20); Immature Granulocytes % (auto) 0.4 %; Lymphocytes % (auto) 10.5 %; Mean Corpuscular Hemoglobin 32.7 pg (25.0-34.0); Mean Corpuscular Hgb Conc 31.6 g/dL (32.0-36.0); Mean Corpuscular Volume 103.6 fL (80.0-100.0); Mean Platelet Volume 9.3 fL (9.4-12.4); Monocytes # (auto) 0.77 K/uL (0.11-0.59); Monocytes % (auto) 11.5 %; Neutrophils # (auto) 4.88 K/uL (1.40-6.50); Platelet Count 349 K/uL (130-400); RDW Coefficient of Variation 13.9 % (11.5-14.5); Red Blood Count 2.78 M/uL (4.20-5.40); White Blood Count 6.69 K/ul (4.8-10.8)
[2023-08-18 06:55] LABS: Albumin Level 3.4 gm/dl (3.4-5.0); Bilirubin,Total 0.4 mg/dl (0.2-1.0); Calcium 9.3 mg/dl (8.6-10.3); Creatinine Clr Calc Pharmacy 72.5 ml/min; Est GFR (African American) 92.3 ml/min; Est GFR (Non-African American) 79.6 ml/min; Globulin 3.3 gm/dl (2.5-4.0); Magnesium 2.2 mg/dl (1.7-2.4); Potassium 4.1 mmol/L (3.5-5.1); Total Protein 6.7 gm/dl (6.0-8.3)
--- NOTE | 2023-08-18 08:11 | XRay Report ---
XR chest 1V portable HISTORY: 73 years-old Female f/u acute shortness of breath COMPARISON: 08/17/2023 TECHNIQUE: AP view of the chest FINDINGS: There are left subclavian Bdenji-m-Hqig catheter is again noted with distal tip projected over the ao rtic knob. The opacification of left hemithorax with leftward Shift-volume loss. Persistent pulmonary edema within the right lung with small right pleural effusion and right basilar consolidation. Chronic left glenohumeral deformity. Right shoulder arthroplasty. IMPRESSION: 1. Complete opacification of the left hemithorax has progressed from yesterday's exam and likely repr esents a combination of pleural effusion with atelectasis. 2. Right lung pulmonary edema with small right pleural effusion redemonstrated. ACT 112: Negative or not required by law. The above report was generated using voice recognition software. It may contain grammatical, syntax o r spelling errors. Electronically signed by: Dre Burleson M.D. 08/18/2023 8:10 AM
--- NOTE | 2023-08-18 08:17 | Pulmonology Progress Note ---
Date of Service August 18, 2023 Assessment & Plan (1) Atelectasis of left lung: (2) Acute on chronic respiratory failure with hypoxia and hypercapnia: (3) Mucoid impaction of bronchi: (4) Morbid obesity: (5) Generalized weakness: Plan IMPRESSION: 73-year-old female with complex past medical history who presents with worsening atelectasis of the LEFT-sided lung with near collapse and acute on chronic hypoxic respiratory failure with hypercapnia. RECOMMENDATIONS: 1. LEFT lung collapse - Still with aeration of the LEFT lung apex noted on AM CXR which is improved from yesterday s/p bronch on 08/15. Will need to continue with aggressive chest PT. Again, continue with Mucinex, hypertonic saline, CoughAssist, and Mucomyst. BiPAP as needed. Follow-up CXR in the AM. 2. Acute on chronic respiratory failure with hypoxia and hypercapnia - In the setting of atelectasis with LEFT lung collapse. Patient would benefit from ongoing BiPAP therapy as previously written during prior hospitalization. Patient is experiencing a degree of hypercapnia which is likely multifactorial in the morbidly obese patient with decreased ventilatory function in the setting of severe atelectasis. Would encourage ongoing BiPAP use as well as aggressive chest PT. 3. Mucoid impaction - Patient likely with mucoid impaction of the LEFT bronchi appears to have happened again based on today's imaging. 4. Morbid obesity - Unfortunately this is negatively affecting the patient's respiratory status including her ventilatory function. 5. Generalized weakness - Continue workup per primary service. Certainly her profound weakness could be contributing to her poor ventilatory effort, poor cough, and poor airway clearance. Recommend ongoing evaluation of of this weakness if it has not been completed to this point. 6. Pneumonia - With aeration of the LEFT-sided lung field, there is concern for infiltrative process. Continue with doxycycline and Rocephin empirically. Plan: S/p repeat bronchoscopy 08/17/2023 in the OR with significant mucous plugging and clearing. Chest x-ray postprocedure showed improvement in aeration Chest x-ray from today again shows whiteout of the left lung. I had in-depth discussion with patient's as well as patient that she needs to use the CoughAssist, flutter valve on a regular basis Doing bronchoscopies again and again puts her at a higher risk for complication from sedation. Patient refused to have any procedure done. She is also refusing CoughAssist. I do think patient has the capacity to make decisions. There is discrepancy between what patient wishes are and what the wishes of the family are. I am going to respect the patient's wishes. Would recommend palliative care to come with goals of care plan Continue with antibiotics for at least 10 days. Continue with nebulized N-acetylcysteine, nebulized hypertonic saline along with DuoNebs. Patient refusing to flutter valve, chest PT and CoughAssist Recommend keeping O2 saturation around 90-92%. Do not over oxygenate the patient Case was discussed with Dr. Bentley Please note the above document was generated using voice recognition software. It may contain grammatical, syntax or spelling errors.Any formal questions or concerns about the content, text or information contained within the body of this dictation should be directly addressed to the provider for clarification. Admission and Anticipated Discharge Date Admission Date: August 07, 2023 Subjective Patient seen and examined at bedside. No acute distress, no adverse events overnight Patient has been vehemently refusing CoughAssist as well as BiPAP overnight. Patient was in the room. Patient herself says that she is feeling okay no significant change compared to before Denies any chest pain, no headache, no nausea, no vomiting Review of Systems 2 Review of Systems: All systems reviewed & are unremarkable except as noted in Subjective Physical Exam 2 Physical Exam: Constitutional: No acute distress HEENT: EOMI, PERRLA Respiratory system: Decreased air entry on the left side (improved from before), no wheeze, no rhonchi, positive crackles bilaterally CVS: S1-S2 positive, no murmurs or gallops Abdomen: Soft, nontender, nondistended, positive bowel sounds x4, obese Extremities: +2 pulses bilaterally radialis/ dorsalis pedis, no cyanosis, +1 pitting edema left lower extremity, right lower extremity in splint Neuro: Awake, alert, oriented to self and place Psych: Normal mood and affect G/U: Positive Deleon Skin: no rashes, warm and dry Lymphatic: no cervical or axillary lymphadenopathy Results & Data Results & Data Vital Signs (Past 12 Hours) Vital Signs Temp Pulse Pulse Pulse Resp BP Pulse Ox 08/18/23 07:58 70 08/18/23 07:45 08/18/23 07:12 67 20 97 08/18/23 04:33 36.5 C 74 22 123/74 93 08/18/23 01:02 92 08/17/23 23:30 36.8 C 75 24 125/72 96 08/17/23 22:24 08/17/23 21:56 68 08/17/23 20:34 71 16 92 O2 Del Method O2 Flow Rate 08/18/23 07:58 08/18/23 07:45 Nasal Cannula 2.5 08/18/23 07:12 Nasal Cannula 2.5 08/18/23 04:33 Nasal Cannula 3 08/18/23 01:02 High Flow Nasal Cannula 3 08/17/23 23:30 Nasal Cannula 6 08/17/23 22:24 High Flow Nasal Cannula 8 08/17/23 21:56 08/17/23 20:34 Nasal Cannula 7 Laboratory Results 08/18/23 05:48 08/18/23 05:48 PG Care Time/CCT Total # of Minutes Spent Total Time Spent with Patient: Total time spent is greater than 50% in coordination of care (as documented) at patient's floor/unit and/or counseling patient: Coding Level of Care Code 91681 SUB INP/OBS CARE 3/50MIN Diagnoses Atelectasis of left lung J98.11 Acute on chronic respiratory failure with hypoxia and hypercapnia J96.21; J96.22 Mucoid impaction of bronchi T17.500A Morbid obesity E66.01 Generalized weakness R53.1
--- NOTE | 2023-08-18 16:56 | Hospitalist Progress Note ---
Date of Service August 18, 2023 Assessment & Plan (1) Pneumonia: Plan: With thick mucus plugging and left lung collapse requiring bronch 08/13 with some improvement on CXR 08/14 With recurrent collapse left lung 08/15--> underwent repeat bronch with further mucous plugging removed on 08/15 and again on 08/17 Chest x-ray temporarily will show some aeration in the left upper lobe and at other times complete whiteout on the left like again on 08/18 Remains on supplemental oxygen but is weaned to 3 L nasal cannula, refuses to wear BiPAP at nighttime SPutum cx from bronch negative, was on ceftriaxone and doxy but without IV access-changed to cefdinir and p.o. doxycycline-now that she has a port placed- changed to IV Zosyn and p.o. doxycycline-extend course of treatment through 08/20 Continue pulm toilet Patient refuses CoughAssist No further bronchoscopies to be performed as per patient's wishes Appreciate PULM consult Follow chest x-ray Palliative medicine consultation pending for Sunday to further assess goals of care and to see about having congruence between patient's wishes and her family (2) Toxic encephalopathy: Plan: secondary to hypoxia,hypercarbia mild, now on bipap at night when tolerates, also sedating meds to avoid withdrawal, resumed lorazepam from home at lower dose of 0.5mg po bid and resume Seroquel lower dose 100mg po hs Much improved-awake and alert during the day, able to make decisions and have conversations keep blinds open during the day and supportive care, work on sleep at night reports she frequently gets hospital delirium gabapentin from home remains on hold and would likely permanently discontinue (3) EYAD (acute kidney injury): Plan: Creatinine increased to 1.7 and now improved to normal after starting IV fluids Likely secondary to being n.p.o. and not receiving fluids previously Follow BMP Continue to hold lisinopril unless blood pressures become elevated (4) Right fibular fracture: Plan: Orthopedic consultation appreciated. No surgical intervention needed. Right lower extremity has been immobilized and elevated. Pain control measures. 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 Lovenox has been discontinued. GI consultation has been requested but refused by the patient. She is not willing to undergo endoscopic evaluation and states she has had intermittent melena for quite some time. The is present and is aware. Fortunately, hemoglobin level stable at 9-10 follow CBC (7) Closed fracture of left pelvis: Plan: Left superior ramus fracture noted on x-ray. Supportive care. Pain control measures. (8) Chronic respiratory failure with hypoxia and hypercapnia: Plan: Acute on chronic exacerbation. Due to exacerbation of CHF and left mainstem mucous plug. Continue O2 to keep POx> 90%, BiPAP at night if tolerates Serum bicarbonate continues to trend upward as she refuses to wear BiPAP at night (9) Uncontrolled type 2 diabetes mellitus with hyperosmolarity, without long- term current use of insulin: Plan: ADA diet. Sliding scale coverage. Lantus dosage uptitrated on August 08 and August 09. -continue same Lantus dose (10) Chronic right-sided congestive heart failure: Plan: Known chronic cor pulmonale. Stable. Continue current medical management (11) Hypertension: Plan: BPs normal Continue to hold lisinopril (12) Morbid obesity: Plan: BMI greater than 40. Significant weight loss recommended (13) Macrocytic anemia: Plan: B12, folate normal recently could be MDS? gets iron infusions as outpt and most recent Fe levels normal She did receive 1 dose of Venofer while here follow CBC Plan DVT proph-SCD to left leg, no Lovenox due to GIB Dispo-guarded prognosis, continued stay on tele. Had discussion with patient and she is tired of doing procedures and says she is okay if she dies, but her and daughter are strongly encouraging her to continue ahead. Patient was agreeable to have a port placed for IV access, but does not want any further bronchoscopies. Palliative medicine consultation placed for further goals of care discussion appreciated-plan for family meeting on Sunday Admission and Anticipated Discharge Date Admission Date: August 07, 2023 Subjective Patient feels she is comfortable with her breathing and not short of breath. She is weaned down to 3 L nasal cannula. Her left lung is collapsed again today but she reports she does not want any further bronchoscopies. I did discuss her case with pulmonology. She denies pain anywhere. She reports feeling frustrated with having personal/family issues stating "I know what I want to do, but they do not agree with me." Telemetry with normal sinus rhythm and rates in the 60s Physical Exam Constitutional: + obese; no acute distress and not ill a ppearing Respiratory: normal respiratory effort; no cough Auscultation: + diminished lung sounds (throughout left side); no wheezes Cardiovascular: RRR, no murmur, no edema Gastrointestinal (Abdomen): normal bowel sounds, soft, nontender, no hepatosplenomegaly Musculoskeletal: Shoulder: + shoulder abnormal to inspection (dislocated shoulder,humerus deformity) Psychiatric: Orientation: alert, oriented to person, oriented to place, oriented to time and cooperative Results & Data Results & Data Vital Signs (Past 12 Hours) Vital Signs Temp Pulse Pulse Pulse Resp BP Pulse Ox 08/18/23 15:12 62 18 96 08/18/23 15:01 73 08/18/23 11:38 37.0 C 67 20 108/69 92 08/18/23 08:32 37.0 C 69 20 125/78 90 08/18/23 07:58 70 08/18/23 07:45 08/18/23 07:12 67 20 97 O2 Del Method O2 Flow Rate 08/18/23 15:12 Nasal Cannula 2.5 08/18/23 15:01 08/18/23 11:38 Nasal Cannula 3 08/18/23 08:32 Nasal Cannula 2.5 08/18/23 07:58 08/18/23 07:45 Nasal Cannula 2.5 08/18/23 07:12 Nasal Cannula 2.5 Laboratory Results CBC, CMP, magnesium reviewed Diagnostic Findings Chest x-ray reviewed PG Care Time/CCT Total # of Minutes Spent Total Time Spent with Patient: Total time spent is greater than 50% in coordination of care (as documented) at patient's floor/unit and/or counseling patient: Coding Level of Care Code 34256 SUB INP/OBS CARE 2/35MIN Diagnoses Pneumonia J18.9 Toxic encephalopathy G92.9 EYAD (acute kidney injury) N17.9 Right fibular fracture S82.401A Acute on chronic diastolic CHF (congestive heart failure) I50.33 Upper GI bleed K92.2 Closed fracture of left pelvis S32.9XXA Chronic respiratory failure with hypoxia and hypercapnia J96.11; J96.12 Uncontrolled type 2 diabetes mellitus with hyperosmolarity, without long-term current use of insulin E11.00 Chronic right-sided congestive heart failure I50.812 Essential hypertension I10 Hypertension type: essential hypertension Morbid obesity E66.01 Macrocytic anemia D53.9 (11) Hypertension Hypertension type: essential hypertension Qualified Code(s): I10 - Essential (primary) hypertension
[2023-08-19] MEDS: HEPARIN 100 UNIT/ML 5ML FLUSH FLUSH PRN (05:48)
[2023-08-19 06:45] LABS: Basophils # (auto) 0.05 K/uL (0.00-0.20); Basophils % (auto) 0.7 %; Eosinophils % (auto) 2.9 %; Hemoglobin 8.8 g/dl (12.0-16.0); Immature Granulocytes # (auto) 0.08 K/uL (0.01-0.20); Immature Granulocytes % (auto) 1.2 %; Lymphocytes # (auto) 0.85 K/uL (1.20-3.40); Lymphocytes % (auto) 12.4 %; Mean Corpuscular Hemoglobin 32.7 pg (25.0-34.0); Mean Corpuscular Hgb Conc 31.4 g/dL (32.0-36.0); Mean Corpuscular Volume 104.1 fL (80.0-100.0); Mean Platelet Volume 9.5 fL (9.4-12.4); Monocytes # (auto) 0.74 K/uL (0.11-0.59); Monocytes % (auto) 10.8 %; Neutrophils # (auto) 4.93 K/uL (1.40-6.50); Nucleated RBC # (auto) 0.02 K/uL (0.00-0.12); Nucleated RBC % (auto) 0.3 %; Platelet Count 332 K/uL (130-400); RDW Coefficient of Variation 14.1 % (11.5-14.5); RDW Standard Deviation 53.7 fL (36.4-46.3); Red Blood Count 2.69 M/uL (4.20-5.40); White Blood Count 6.85 K/ul (4.8-10.8)
[2023-08-19 07:02] LABS: Calcium 9.4 mg/dl (8.6-10.3); Creatinine Clr Calc Pharmacy 74.9 ml/min; Est GFR (African American) 95.4 ml/min; Est GFR (Non-African American) 82.3 ml/min; Magnesium 1.9 mg/dl (1.7-2.4); Potassium 4.1 mmol/L (3.5-5.1)
--- NOTE | 2023-08-19 09:44 | Pulmonology Progress Note ---
Date of Service August 19, 2023 Assessment & Plan (1) Atelectasis of left lung: (2) Acute on chronic respiratory failure with hypoxia and hypercapnia: (3) Mucoid impaction of bronchi: (4) Morbid obesity: (5) Generalized weakness: Plan IMPRESSION: 73-year-old female with complex past medical history who presents with worsening atelectasis of the LEFT-sided lung with near collapse and acute on chronic hypoxic respiratory failure with hypercapnia. RECOMMENDATIONS: -- LEFT lung collapse - Secondary to mucoid impaction s/p multiple bronchoscopies, last 1 being on 08/17/2023. Recommend to continue with aggressive chest PT. Again, continue with Mucinex, hypertonic saline, CoughAssist, and Mucomyst. BiPAP as needed. -- Acute on chronic respiratory failure with hypoxia and hypercapnia - In the setting of atelectasis with LEFT lung collapse. Patient would benefit from ongoing BiPAP therapy as previously written during prior hospitalization. Patient is experiencing a degree of hypercapnia which is likely multifactorial in the morbidly obese patient with decreased ventilatory function in the setting of severe atelectasis. Would encourage ongoing BiPAP use as well as aggressive chest PT. -- Morbid obesity - Unfortunately this is negatively affecting the patient's respiratory status including her ventilatory function. Plan: I again had in-depth discussion with patient's daughter today and patient that she needs to use the CoughAssist, flutter valve on a regular basis Doing bronchoscopies again and again puts her at a higher risk for complication from sedation. Patient refused to have any procedure done. She is also refusing CoughAssist. I think patient has the capacity to make decisions. There is discrepancy between what patient wishes are and what the wishes of the family are. I am going to respect the patient's wishes. Would recommend palliative care to come with goals of care plan Continue with antibiotics for at least 10 days. Continue with nebulized N-acetylcysteine, nebulized hypertonic saline along with DuoNebs. Patient refusing to flutter valve, chest PT and CoughAssist Recommend keeping O2 saturation around 90-92%. Do not over oxygenate the patient Case was discussed with Dr. Bentley For the time being pulmonary will sign off. Please recall once the goals of care have been decided by patient, patient's family Please note the above document was generated using voice recognition software. It may contain grammatical, syntax or spelling errors.Any formal questions or concerns about the content, text or information contained within the body of this dictation should be directly addressed to the provider for clarification. Admission and Anticipated Discharge Date Admission Date: August 07, 2023 Subjective Patient seen and examined at bedside. No acute distress, no adverse events overnight. Patient's daughter was in the room. She was saturating 91-92% on 2 L nasal cannula at rest. Was not in any respiratory distress Denied any chest pain, no headache, no nausea, no vomiting Has not been declining to use BiPAP as well as CoughAssist on multiple locations Review of Systems 2 Review of Systems: All systems reviewed & are unremarkable except as noted in Subjective Physical Exam 2 Physical Exam: Constitutional: No acute distress HEENT: EOMI, PERRLA Respiratory system: Decreased air entry on the left side (improved from before), no wheeze, no rhonchi, positive crackles bilaterally CVS: S1-S2 positive, no murmurs or gallops Abdomen: Soft, nontender, nondistended, positive bowel sounds x4, obese Extremities: +2 pulses bilaterally radialis/ dorsalis pedis, no cyanosis, +1 pitting edema left lower extremity, right lower extremity in splint Neuro: Awake, alert, oriented to self and place Psych: Normal mood and affect G/U: Positive Deleon Skin: no rashes, warm and dry Lymphatic: no cervical or axillary lymphadenopathy Results & Data Results & Data Vital Signs (Past 12 Hours) Vital Signs Temp Pulse Pulse Resp BP Pulse Ox O2 Del Method 08/19/23 07:53 36.5 C 65 17 119/71 97 Nasal Cannula 08/19/23 07:50 65 08/19/23 07:34 High Flow Nasal Cannula 08/19/23 07:08 70 18 90 Nasal Cannula 08/19/23 02:54 36.4 C L 65 18 104/58 L 92 Nasal Cannula 08/18/23 23:35 36.7 C 83 18 96/56 L 99 Room Air 08/18/23 22:13 High Flow Nasal Cannula 08/18/23 22:02 66 O2 Flow Rate 08/19/23 07:53 2 08/19/23 07:50 08/19/23 07:34 3 08/19/23 07:08 2 08/19/23 02:54 3 08/18/23 23:35 08/18/23 22:13 3 08/18/23 22:02 Laboratory Results 08/19/23 05:54 08/19/23 05:35 PG Care Time/CCT Total # of Minutes Spent Total Time Spent with Patient: Total time spent is greater than 50% in coordination of care (as documented) at patient's floor/unit and/or counseling patient: Coding Level of Care Code 56896 SUB INP/OBS CARE 2/35MIN Diagnoses Atelectasis of left lung J98.11 Acute on chronic respiratory failure with hypoxia and hypercapnia J96.21; J96.22 Mucoid impaction of bronchi T17.500A Morbid obesity E66.01 Generalized weakness R53.1
--- NOTE | 2023-08-19 11:10 | Hospitalist Progress Note ---
Date of Service August 19, 2023 Assessment & Plan (1) Pneumonia: Plan: With thick mucus plugging and left lung collapse requiring bronch 08/13 with some improvement on CXR 08/14 With recurrent collapse left lung 08/15--> underwent repeat bronch with further mucous plugging removed on 08/15 and again on 08/17 Chest x-ray temporarily will show some aeration in the left upper lobe and at other times complete whiteout on the left like again on 08/18 Remains on supplemental oxygen but is weaned to 2-3 L nasal cannula, refuses to wear BiPAP at nighttime Sputum cx from bronch negative, was on ceftriaxone and doxy but not improving- changed to IV Zosyn and p.o. doxycycline-extend course of treatment through 08/20 Continue pulm toilet Patient refuses CoughAssist but now says she would be willing to use it No further bronchoscopies to be performed as per patient's wishes Appreciate PULM consult Follow chest x-ray in the AM Continue supplemental O2 as needed--> much improved, weaned to 3LNC Palliative medicine consultation pending for Sunday to further assess goals of care and to see about having congruence between patient's wishes and her family (2) Chronic respiratory failure with hypoxia and hypercapnia: Plan: Acute on chronic respiratory failure with hypoxia and hypercarbia Due to exacerbation of CHF and left mainstem mucous plug, excessive sedation and hypoventilation Continue O2 to keep POx> 90%, BiPAP at night if tolerates Serum bicarbonate continues to trend upward as she refuses to wear BiPAP at night, but now is considering wearing it at times (3) Toxic encephalopathy: Plan: secondary to hypoxia,hypercarbia mild, now on bipap at night when tolerates, also sedating meds Reduced lorazepam to 0.5mg po hs (home dose was 2mg po hs) Lowered Seroquel dose to 100mg po hs Much improved-awake and alert during the day, able to make decisions and have conversations keep blinds open during the day and supportive care, work on sleep at night Discontinued gabapentin and should remain off-doesn't need (4) EYAD (acute kidney injury): Plan: Creatinine increased to 1.7 and now improved to normal after giving V fluids Likely secondary to being n.p.o. x 2 days and not receiving fluids Follow BMP Resume lisinopril (5) Depression: Plan: Worsening She is willing to start sertraline 25mg daily-titrate up to 50mg in 1 week Continue Seroquel but at lower dose due to excessive sedation Continue reduced dose of ativan 0.5mg po hs (6) Macrocytic anemia: Plan: B12, folate normal recently could be MDS? gets iron infusions as outpt and most recent Fe levels normal She did receive 1 dose of Venofer while here follow CBC-hgb reduced further to 8.8 today, no evidence of bleeding (7) Right fibular fracture: Plan: Orthopedic consultation appreciated. No surgical intervention needed. Right lower extremity has been immobilized and elevated. Pain control measures. has both proximal and distal fibular fractures--Now in fiberglass cast Follow-up with orthopedics as an outpatient Has chronic right humerus fracture and shoulder dislocation, shoulder arthroplasty; also with chronic Erb's palsy LUE since Not taking pain meds-discontinue tramadol Can take tylenol prn (8) Acute on chronic diastolic CHF (congestive heart failure): Plan: Good response to Lasix diuresis She is not on diuretics at home Follow volume status-euvolemic for now (9) Upper GI bleed: Plan: She developed melena and stools are Hemoccult positive. Lovenox has been discontinued. GI consultation has been requested but refused by the patient. She is not willing to undergo endoscopic evaluation and states she has had intermittent melena for quite some time. hgb dropped further to 8.3, no obvious bleeding from anywhere-no BM in many days follow CBC (10) Closed fracture of left pelvis: Plan: Left superior ramus fracture noted on x-ray. Supportive care. Pain control measures. (11) Uncontrolled type 2 diabetes mellitus with hyperosmolarity, without long- term current use of insulin: Plan: ADA diet. Sliding scale coverage. Lantus dosage uptitrated on August 08 and August 09. -continue same Lantus dose (12) Chronic right-sided congestive heart failure: Plan: Known chronic cor pulmonale. Stable. Continue current medical management careful with diuretics due to renal function (13) Hypertension: Plan: BPs normal resume lisinopril now that EYAD resolved (14) Morbid obesity: Plan: BMI greater than 40. Significant weight loss recommended Plan DVT proph-SCD to left leg, no Lovenox due to GIB Dispo-improving, continued stay on tele. Had discussion with patient and she is tired of doing procedures and says she is okay if she dies, but her and daughter are strongly encouraging her to continue ahead. Patient was agreeable to have a port placed for IV access, but does not want any further bronchoscopies. Palliative medicine consultation placed for further goals of care discussion appreciated-plan for family meeting on Sunday to sort out goals of care But is medically stable for discharge to rehab on Sunday if insurance auth can be obtained Admission and Anticipated Discharge Date Admission Date: August 07, 2023 Anticipated date of discharge: 08/20/23 Subjective Pt OOB to chair this AM and daughter and at bedside. Pt wants to tell me she would like to go to rehab and daughter is happy about this as she was worried about being able to take care of her at home. SHe feels like she has to have a BM but keeps trying and can't get anything out. Pt denies any SOB, no pain anywhere. She is feeling depressed and is interested in starting something to help with depression. Tele with NSR normal rates Physical Exam Constitutional: + obese; no acute distress and not ill a ppearing Respiratory: normal respiratory effort; no cough Auscultation: + diminished lung sounds (throughout left side although some air movement left upper field); no wheezes Cardiovascular: RRR, no murmur, no edema Gastrointestinal (Abdomen): normal bowel sounds, soft, nontender, no hepatosplenomegaly Musculoskeletal: Shoulder: shoulder normal to inspection (dislocated shoulder,humerus deformity) Psychiatric: Orientation: alert, oriented to person, oriented to place, oriented to time and cooperative Results & Data Results & Data Vital Signs (Past 12 Hours) Vital Signs Temp Pulse Pulse Resp BP Pulse Ox O2 Del Method 08/19/23 07:53 36.5 C 65 17 119/71 97 Nasal Cannula 08/19/23 07:50 65 08/19/23 07:34 High Flow Nasal Cannula 08/19/23 07:08 70 18 90 Nasal Cannula 08/19/23 02:54 36.4 C L 65 18 104/58 L 92 Nasal Cannula 08/18/23 23:35 36.7 C 83 18 96/56 L 99 Room Air O2 Flow Rate 08/19/23 07:53 2 08/19/23 07:50 08/19/23 07:34 3 08/19/23 07:08 2 08/19/23 02:54 3 08/18/23 23:35 Laboratory Results CBC, BMP, Magnesium, procal reviewed PG Care Time/CCT Total # of Minutes Spent Total Time Spent with Patient: Total time spent is greater than 50% in coordination of care (as documented) at patient's floor/unit and/or counseling patient: Coding Level of Care Code 64097 SUB INP/OBS CARE 3/50MIN Diagnoses Pneumonia J18.9 Chronic respiratory failure with hypoxia and hypercapnia J96.11; J96.12 Toxic encephalopathy G92.9 EYAD (acute kidney injury) N17.9 Major depressive disorder, remission status unspecified, unspecified whether recurrent F32.9 Active/Remission status: remission status unspecified Depression Type: major depressive disorder Major depression recurrence: unspecified whether recurrent Macrocytic anemia D53.9 Right fibular fracture S82.401A Acute on chronic diastolic CHF (congestive heart failure) I50.33 Upper GI bleed K92.2 Closed fracture of left pelvis S32.9XXA Uncontrolled type 2 diabetes mellitus with hyperosmolarity, without long-term current use of insulin E11.00 Chronic right-sided congestive heart failure I50.812 Essential hypertension I10 Hypertension type: essential hypertension Morbid obesity E66.01 (5) Depression Active/Remission status: remission status unspecified Depression Type: major depressive disorder Major depression recurrence: unspecified whether recurrent Qualified Code(s): F32.9 - Major depressive disorder, single episode, unspecified (13) Hypertension Hypertension type: essential hypertension Qualified Code(s): I10 - Essential (primary) hypertension
[2023-08-19] MEDS: bisacodyL 10 MG SUPP PR STA (12:14)
[2023-08-19] MEDS: SERTRALINE HCL 50 MG TABLET PO SCH (13:30)
[2023-08-19] MEDS: LORazepam 0.5 MG TAB PO SCH (20:30)
[2023-08-19] MEDS: DOCUSATE SODIUM/SENNA 50/8.6MG TAB PO SCH (21:41)
[2023-08-20 07:06] LABS: Basophils # (auto) 0.07 K/uL (0.00-0.20); Basophils % (auto) 0.9 %; Eosinophils # (auto) 0.21 K/uL (0.00-0.50); Eosinophils % (auto) 2.8 %; Hematocrit (blood only) 25.2 % (37.0-47.0); Immature Granulocytes # (auto) 0.07 K/uL (0.01-0.20); Immature Granulocytes % (auto) 0.9 %; Lymphocytes % (auto) 12.2 %; Mean Corpuscular Hemoglobin 32.9 pg (25.0-34.0); Mean Corpuscular Hgb Conc 31.7 g/dL (32.0-36.0); Mean Corpuscular Volume 103.7 fL (80.0-100.0); Mean Platelet Volume 9.1 fL (9.4-12.4); Monocytes # (auto) 0.82 K/uL (0.11-0.59); Monocytes % (auto) 11.1 %; Neutrophils # (auto) 5.32 K/uL (1.40-6.50); Neutrophils % (auto) 72.1 %; Nucleated RBC # (auto) 0.02 K/uL (0.00-0.12); Nucleated RBC % (auto) 0.3 %; Platelet Count 325 K/uL (130-400); RDW Coefficient of Variation 14.2 % (11.5-14.5); RDW Standard Deviation 53.4 fL (36.4-46.3); Red Blood Count 2.43 M/uL (4.20-5.40); White Blood Count 7.39 K/ul (4.8-10.8)
[2023-08-20 07:33] LABS: BUN Creatinine Ratio 37.1 (10-20); Calcium 9.6 mg/dl (8.6-10.3); Est GFR (African American) 104.4 ml/min; Est GFR (Non-African American) 90.1 ml/min; Magnesium 1.9 mg/dl (1.7-2.4); Potassium 3.8 mmol/L (3.5-5.1)
[2023-08-20] MEDS: POLYETHYLENE (MIRALAX) 17 GM PACK PO SCH (08:25)
--- NOTE | 2023-08-20 08:35 | XRay Report ---
XR chest 1V portable HISTORY: f/u PNA, atelectasis COMPARISON: Chest 08/18/2023 per FINDINGS: Slight improved aeration in the near complete opacities in the left hemithorax with left me diastinal shift. A left Port-A-Cath is unchanged in position. There is a right shoulder prosthesis. R ight lung interstitial thickening again noted. Trace bilateral pleural effusions are suggested. IMPRESSION: 1. Slight improved aeration within the near complete opacification the left hemithorax. 2. Pulmonary edema and trace bilateral pleural effusions again noted. ACT 112: Negative or not required by law. Electronically signed by: Mauri Guzman M.D. 08/20/2023 8:34 AM
--- NOTE | 2023-08-20 13:55 | Discharge Summary ---
Date of Service August 20, 2023 Admission HPI Per Admitting Provider Traci is a 72 year old female with a PMH significant for cor pulmonale, NSTEMI, subdural hematoma, subarachnoid hemorrhage, compression fractures, uncontrolled type 2 diabetes mellitus, HFpEF, pressure ulcers, COPD, and chronic hypoxic respiratory failure on baseline 4-5L O2 via NC who presented to the [facility] ED per EMS on 08/07/23 with complaints of increased weakness and a ground level fall. She was noted to be stable on arrival. Labs were remarkable for a calcium of 10.8, phos of 5.4, and full respiratory biofire negative. Chest xray was read as "Cardiomegaly with left greater than right mixed interstitial and alveolar opacities suggestive of asymmetric pulmonary edema. Multifocal pneumonia could appear similarly. ". Xray of the right knee was read as "1. Acute oblique nondisplaced fracture within the proximal shaft of the right fibula. Right ankle radiographs could be obtained to exclude a Maisonneuve fracture. 2. No additional fractures. Small right knee joint effusion.". Xray of the left knee and pelvis were negative for acute findings. Prior to admission the patient was given 125 mg IV solu-medrol and an albuterol treatment. At the time of the exam the patient was sitting in bed in no acute distress. She was recently placed on CPAP at 12/5 and 40% FiO2 and was tolerating it well. She is fatigued and responds appropriately to questions. She states that she fell while trying to get out of bed this am. She states that she has been weak and her legs gave out when trying to get out of bed this am. She denies losing consciousness or hitting her head. Currently, her only complaint is her RLE pain, she denies all other complaints at this time including fever, chills, chest pain, feeling SOB, abd pain, nausea, vomiting, diarrhea, dysuria, hematuria, melena, and increased LE swelling. We discussed code status and she confirms that she wishes to be a DNR/DNI. Her daughter would make medical decisions for her if she could not make them herself. I called and spoke to the Patient's Daughter, Raisa Knapp ([phone]), to obtain further history. She explains that the patient completed a 10 day course of Levaquin and 10 mg Prednisone prescribed on 07/20/23. Her Daughter states that the patient completed the course of both and was doing well. She has not been compliant with HS CPAP/Bipap which was prescribed during her last admission as she could not tolerate the mask. In regards to the patient's prescriptions for Seroquel and Ativan. Her daughter explains that she has been using both to help her sleep, for years. Recently, her dose of ativan was increased from 0.5 mg to 1mg HS, on top of the 150 mg PO Seroquel she normally takes. She states that she checks on he mother multiple times a week and helps to bathe her. She denies the patient having any recent bed sores or ulcers. Please refer to Dr. Grimes's attestation for any changes to the treatment plan Principal Diagnosis Left lung atelectasis secondary to mucous plugs, mechanical fall with multiple right rib fractures and left pelvic fracture, Hemoccult positive stool, acute blood loss anemia, acute on chronic diastolic CHF, acute on chronic hypoxic and hypercarbic respiratory failure, acute kidney injury, toxic encephalopathy Discharge Exam General-alert, no distress, no fever, no chills. Morbidly obese HEENT-head atraumatic and normocephalic, pupils equal and reactive to light, extraocular muscles intact Neck-no lymphadenopathy or thyromegaly, trachea midline Chest-diminished breath sounds bilaterally, more so on the left. No audible inspiratory rales, wheezing or rhonchi Cardiac-regular rate and rhythm, normal S1 and S2 Abdomen-normal bowel sounds, nontender, no hepatosplenomegaly Extremities-right lower extremity immobilized below the knee. Neuro-cranial nerves II through XII intact, motor and sensory function within normal limits, strength symmetrical, no focal deficits Psych-awake. No distress. Depressed affect Discharge Data Allergies Allergy/AdvReac Type Severity Reaction Status Date / Time latex Allergy Severe 2ND DEGREE Verified 08/25/21 07:43 BURN FROM BANDAGE adhesive Allergy Intermediate RASH Verified 08/25/21 07:43 Consultations 08/07/23 14:19 ED Decision to Admit Stat 08/07/23 15:57 Consult Orthopedic Surgery Routine 08/13/23 07:15 Consult Pulmonology Routine 08/16/23 11:49 Consult Palliative Care Routine 08/16/23 13:00 Consult General Surgery Routine Procedures Performed Operation Date: 08/17/23 11:00 Actual Procedures p Aport Insertion(Left) - Avery Kirkpatrick, DO s Bronchoscopy(Not Applicable) - Adelina Jean-Baptiste MD, [facility] Ordered Studies 08/17/23 FL fluoro (infusaport) to 1 hr Routine Hospital Course (1) Pulmonary atelectasis: Left lung whiteout seen on chest x-ray. Pulmonary medicine consultation noted. She has had multiple bronchoscopies and now refuses to have any more performed. This appears to be a chronic problem. Pulmonary medicine assistance appreciated. (2) Toxic encephalopathy: Now resolved. Supportive care. All [employer] depressants have been discontinued. (3) Right fibular fracture: Orthopedic consultation appreciated. No surgical intervention needed. Right lower extremity has been immobilized and elevated. Pain control measures. (4) Acute on chronic diastolic CHF (congestive heart failure): Treated with intravenous Lasix diuresis. Monitor intake and output. Serial chest x-ray. (5) Upper GI bleed: She developed melena and stools are Hemoccult positive. Lovenox has been discontinued. GI consultation has been requested but refused by the patient. She is not willing to undergo endoscopic evaluation and states she has had intermittent melena for quite some time. The is present and is aware. Fortunately, hemoglobin level is stable (6) Closed fracture of left pelvis: Left superior ramus fracture noted on x-ray. Supportive care. Pain control measures. (7) Fatigue: Continue OT and PT while hospitalized. (8) Chronic respiratory failure with hypoxia and hypercapnia: Acute on chronic exacerbation. Due to exacerbation of CHF and left mainstem mucous plug. Oxygen per nasal cannula to maintain saturation greater than 90% but avoid high oxygen saturations. (9) Uncontrolled type 2 diabetes mellitus with hyperosmolarity, without long- term current use of insulin: ADA diet. Sliding scale coverage. Lantus dosage uptitrated on August 08 and August 09. Improved (10) Chronic right-sided congestive heart failure: Known chronic cor pulmonale. Stable. Continue current medical management (11) Hypertension: Stable. Continue lisinopril (12) Morbid obesity: BMI greater than 40. Significant weight loss recommended Plan She has been seen by palliative care. She will be discharged to [facility] today, August 20. She has opted for home hospice care after [facility]. Total Time Total Time Spent Total Time Spent (In Minutes): 45 minutes Discharge Plan Discharge Items Patient Disposition[facility] Reason For Visit: ACUTE ON CHRONIC RESPIRATORY FAILURE, FALL Discharge Diagnosis: Right fibula fracture Activity: As commented below Activity Comment: Weightbearing as tolerated Weightbearing: Right non-weightbearing Weightbearing Comment: at all times; walker Non-emergency contact: Surgeon Call non-emergency contact if: your pain is worsening and your pain is unusual for you Follow-up/Referrals: Avery Kirkpatrick, [Surgeon] - (call to schedule follow up in clinic within 2 weeks) Kaiden Root MD [Surgeon] - 09/12/23 3:00 pm Caryn Avalos MD [Primary Care Provider] - Diet: Carb Consistent or DM2 and [facility] Attending Provider Instructions: Follow-up with primary care provider and orthopedics as soon as possible after discharge from [facility] Education Specialist Provider Instructions: Orthopedic instructions: -Nonweightbearing right lower extremity at all times. until next follow up appointment in approximately 4 weeks. - Keep cast on at all times. Keep it clean and dry. -Allowed for range of motion toes right foot and right knee and hip as tolerated -May be out of bed for transfers to chair. Use walker to assist with ambulation. -PT and OT -Keep heels off of bed at all times. -Elevate on 2-3 pillows to keep ankle above her heart to relieve pain and swelling. -Follow-up in 4 weeks for repeat x-rays of the right ankle as scheduled with Dr. Root -Call [phone] with any increased pain, swelling, issues with the cast, questions or concerns, or need to reschedule appointment. Your mediport is okay to be used Pending Studies at Discharge: No Stand-Alone Forms: My [facility] Skilled Items Patient informed of condition?: Yes DNR: Yes Discharge Level of Care: Skilled Communicable Disease: No Discharge Prognosis: Deteriorating Lines: None Urinary Catheter: Yes Medications and DC Order Prescriptions: New doxycycline hyclate 100 mg Capsule 100 mg PO BID Qty: 20 0RF magnesium oxide 400 mg (241.3 mg magnesium) Tablet 400 mg PO BID Qty: 20 0RF polyethylene glycol 3350 [Miralax] 17 gram Powder In Packet 17 g PO DAILY Qty: 14 0RF pantoprazole 40 mg Tablet,Delayed Release (Dr/Ec) 40 mg PO BID Qty: 30 0RF sennosides-docusate sodium [Senokot-S] 8.6-50 mg Tablet 1 tab PO BID Qty: 60 0RF insulin glargine [Lantus U-100 Insulin] 100 unit/mL Solution 20 unit subcut BID Qty: 30 0RF ipratropium-albuterol 0.5 mg-3 mg(2.5 mg base)/3 mL Solution For Nebulization 3 ml inhalation Q6R PRNQty: 0 0RF Continued atorvastatin [Lipitor] 80 mg Tablet 80 mg PO HS aspirin [Malcom Low Dose Aspirin] 81 mg Tablet,Delayed Release (Dr/Ec) 0 mg PO QPM Rx Instructions: otc unable to verify 08/07/23 gabapentin 300 mg Capsule 300 mg PO TID Januvia 100 mg tablet 100 mg PO QPM metformin 850 mg tablet 850 mg PO BID quetiapine 100 mg tablet 150 mg PO HS lisinopril 5 mg tablet 5 mg PO DAILY furosemide [Lasix] 40 mg tablet 0 mg PO DAILY Rx Instructions: last filled with [facility] pharmacy was 2 years ago- 08/07/23 potassium chloride 10 mEq tablet extended release 0 meq PO DAILY Rx Instructions: unable to verify with [facility] pharmacy 08/07/23 lorazepam 1 mg tablet 1 mg PO BID Discontinued insulin glargine [Lantus Solostar U-100 Insulin] 100 unit/mL (3 mL) insulin pen 35 unit SC HS Discharge Orders: Discharge Order (Routine); Ordered 08/20/23 Ordered By: Nathaniel Osborne Admission Data Admit Date/Time: 08/07/23 14:38 Attending Provider: Nathaniel Osborne Admit Provider: Kaiden Grimes Primary Care Provider: Caryn Avalos Other Providers: Ras Greene Talisheek; Kaiden Grimes; Kaiden Root; Onel Stanley; Leonel Nova; Cuco Gonzalez; Adelina Jean-Baptiste; Angelique Calix; Shelbi Shaw; Gee Whalen; Salas Pringle; Laura Jasmine; Gabriela Peters; Avery Kirkpatrick Coding Level of Care Code 31431 INP/OBS DISCH >30 MIN Diagnoses Pulmonary atelectasis J98.11 Toxic encephalopathy G92.9 Right fibular fracture S82.401A Acute on chronic diastolic CHF (congestive heart failure) I50.33 Upper GI bleed K92.2 Closed fracture of left pelvis S32.9XXA Fatigue R53.83 Chronic respiratory failure with hypoxia and hypercapnia J96.11; J96.12 Uncontrolled type 2 diabetes mellitus with hyperosmolarity, without long-term current use of insulin E11.00 Chronic right-sided congestive heart failure I50.812 Essential hypertension I10 Hypertension type: essential hypertension Morbid obesity E66.01
[2023-08-22 20:57] LABS: Source BALLMS
== END 2023-08-20 14:52 | DRG 562 ==
LOC: ED 11:09 → 2S 14:38 → SUATTDRO 14:38 → 2S 17:25
DX: J96.22 Acute and chronic respiratory failure with hypercapnia; F17.210 Nicotine dependence, cigarettes, uncomplicated; Y92.019 Unspecified place in single-family (private) house as the place of occurrence of the external cause; I11.0 Hypertensive heart disease with heart failure; Z91.040 Latex allergy status; J98.11 Atelectasis; I50.33 Acute on chronic diastolic (congestive) heart failure; J44.1 Chronic obstructive pulmonary disease with (acute) exacerbation; N17.9 Acute kidney failure, unspecified; R53.1 Weakness; K92.1 Melena; I25.2 Old myocardial infarction; J18.9 Pneumonia, unspecified organism; E66.01 Morbid (severe) obesity due to excess calories; M16.0 Bilateral primary osteoarthritis of hip; R53.83 Other fatigue; Z68.41 Body mass index [BMI] 40.0-44.9, adult; T42.4X5A Adverse effect of benzodiazepines, initial encounter; S32.512A Fracture of superior rim of left pubis, initial encounter for closed fracture; I27.81 Cor pulmonale (chronic); T43.595A Adverse effect of other antipsychotics and neuroleptics, initial encounter; R29.6 Repeated falls; P14.0 Erb's paralysis due to birth injury; W06.XXXA Fall from bed, initial encounter; G47.33 Obstructive sleep apnea (adult) (pediatric); Z79.82 Long term (current) use of aspirin; T17.598A Other foreign object in bronchus causing other injury, initial encounter; G92.9 Unspecified toxic encephalopathy; Z91.048 Other nonmedicinal substance allergy status; Z79.899 Other long term (current) drug therapy; J96.21 Acute and chronic respiratory failure with hypoxia; Y99.8 Other external cause status; Z79.4 Long term (current) use of insulin; E11.00 Type 2 diabetes mellitus with hyperosmolarity without nonketotic hyperglycemic-hyperosmolar coma (NKHHC); S82.831A Other fracture of upper and lower end of right fibula, initial encounter for closed fracture; M84.421D Pathological fracture, right humerus, subsequent encounter for fracture with routine healing; Z99.81 Dependence on supplemental oxygen; D53.9 Nutritional anemia, unspecified; Z66 Do not resuscitate; Z79.84 Long term (current) use of oral hypoglycemic drugs; Z91.199 Patient's noncompliance with other medical treatment and regimen due to unspecified reason

== ENCOUNTER 2023-08-23 00:08 | Inpatient (IN) ==
--- NOTE | 2023-08-23 01:38 | Emergency Department Note ---
History of Present Illness General Chief complaint: Hypotension Stated complaint: HYPOXIA, HYPOTENSIVE Time Seen by Provider: 08/23/23 01:00 History of Present Illness This 73-year-old female presents to the ER from the half-way for shortness of breath low O2 sats and anemia. Patient is supposed to get a blood transfusion tomorrow at the half-way. Patient states she is a full code. Patient has chest pain, fever, chills, abdominal pain, flulike illness. She has had blood transfusions in the past without difficulties. She has had iron transfusions without difficulties. Home Medications Medication Instructions Recorded Confirmed Type aspirin 81 mg tablet,delayed 81 mg PO HS 10/30/18 08/23/23 History release (Malcom Low Dose Aspirin) atorvastatin 80 mg tablet (Lipitor) 80 mg PO HS 10/30/18 08/23/23 History gabapentin 300 mg capsule 300 mg PO TID 10/30/18 08/23/23 History sitagliptin phosphate 100 mg 100 mg PO QPM 01/08/21 08/23/23 History tablet (Januvia) lisinopril 5 mg tablet 5 mg PO DAILY 12/13/21 08/23/23 History metformin 850 mg tablet 850 mg PO BID 12/13/21 08/23/23 History quetiapine 100 mg tablet 100 mg PO HS 12/13/21 08/23/23 History potassium chloride 10 mEq 10 meq PO DAILY 08/07/23 08/23/23 History tablet,extended release doxycycline hyclate 100 mg capsule 100 mg PO BID #20 caps 08/20/23 08/23/23 Rx insulin glargine 100 unit/mL 20 unit (0.2 mL) subcut BID #30 mL 08/20/23 08/23/23 Rx subcutaneous solution (Lantus U-100 Insulin) magnesium oxide 400 mg (241.3 mg 400 mg PO BID #20 tabs 08/20/23 08/23/23 Rx magnesium) tablet pantoprazole 40 mg tablet,delayed 40 mg PO BID #30 tabs 08/20/23 08/23/23 Rx release polyethylene glycol 3350 17 gram 17 g PO DAILY #14 ea 08/20/23 08/23/23 Rx oral powder packet (Miralax) sennosides 8.6 mg-docusate sodium 1 tab PO BID #60 tabs 08/20/23 08/23/23 Rx 50 mg tablet (Senokot-S) acetaminophen 325 mg tablet 650 mg PO Q4H PRN PAIN/FEVER=>100 08/23/23 08/23/23 History (Tylenol) docusate sodium 100 mg capsule 100 mg PO DAILY PRN Constipation 08/23/23 08/23/23 History (Colace) furosemide 20 mg tablet (Lasix) 20 mg PO DAILY 08/23/23 08/23/23 History ipratropium 0.5 mg-albuterol 3 mg 3 ml inhalation Q6H PRN Dyspnea 08/23/23 08/23/23 History (2.5 mg base)/3 mL nebulization soln lorazepam 0.5 mg tablet 0.5 mg PO BID PRN Anxiety 08/23/23 08/23/23 History mirtazapine 15 mg tablet (Remeron) 15 mg PO HS 08/23/23 08/23/23 History Allergies Allergy/AdvReac Type Severity Reaction Status Date / Time latex Allergy Severe 2ND DEGREE Verified 08/23/23 01:52 BURN FROM BANDAGE adhesive Allergy Intermediate RASH Verified 08/23/23 01:52 Past Med/Surg History Medical History Advanced care planning/counseling discussion Palliative care by specialist Weakness generalized Cancer related pain Macrocytic anemia Shortness of breath Palliative care encounter Hyponatremia Complicated UTI (urinary tract infection) H/O defect LEFT ARM Diabetes mellitus, type 2 NIDDM Temporomandibular joint disorder NO PROBLEMS RECENTLY. Glaucoma WELL CONTROLLED Anxiety Depression Peripheral neuropathy BILATERAL FEET Hyperlipidemia Hypertension Chronic obstructive pulmonary disease Surgical History Port-A-Cath in place (08/17/23) Aport Insertion - Avery Kirkpatrick, DO S/P JALIL-BSO History of total shoulder replacement RIGHT History of incision and drainage UMBILICAL ABSCESS Hx of umbilical hernia repair X4 -- WEARS SUPPORT BAND DAILY History of colonoscopy History of cholecystectomy History of appendectomy S/P tonsillectomy and adenoidectomy Family History Mother Diabetes mellitus, type 2 Aunt Diabetes mellitus, type 2 Social History Smoking Status: Smoker, status unknown Tobacco Type: Cigarettes Cigarettes Per Day: quit 1 year ago; Second Hand Exposure: No; Do You Dip or Chew Tobacco: No; Hx Alcohol Use: No Hx Substance Use: No Preferred Language: Vietnamese Communication Ability: Impaired 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 Beliefs That Will Affect Care: None marital status: Current Living Situation: Spouse current occupational status: retired Feels Safe at Home: Yes Assistive Devices: Oxygen - Continuous and Wheelchair Review of Systems A total of 10 systems reviewed and were otherwise negative Physical Exam Vital Signs Vital Signs - 24 hr 08/23/23 00:18 08/23/23 00:26 08/23/23 00:27 Temperature 36.4 C L Temperature Source Oral Pulse Rate 73 75 Pulse Rate [Apical] Pulse Rate from SpO2 Sensor Respiratory Rate 16 Respiratory Effort / Characteristics Non-Labored Respiratory Depth Normal Respiratory Pattern Regular Blood Pressure 107/52 L Blood Pressure [Right Calf] Blood Pressure Mean 70 Blood Pressure Mean [Right Calf] Pulse Oximetry 96 96 Oxygen Delivery Method Nasal Cannula Nasal Cannula Oxygen Flow Rate 6 6 Fraction of Inspired Oxygen Sepsis Recent Fever Within 48 Hours No Sepsis New/Unexplained Change in Mental Status No Sepsis Action Taken by Nursing No Action Required Oxygen Flow Rate - Titration 4 Pulse Oximetry Post Tiitration 92 08/23/23 00:27 08/23/23 01:01 08/23/23 01:06 Temperature Temperature Source Pulse Rate 64 74 Pulse Rate [Apical] 71 Pulse Rate from SpO2 Sensor 70 Respiratory Rate 16 20 16 Respiratory Effort / Characteristics Non-Labored Respiratory Depth Normal Respiratory Pattern Regular Blood Pressure 127/47 L Blood Pressure [Right Calf] 91/55 L Blood Pressure Mean 65 Blood Pressure Mean [Right Calf] 67 Pulse Oximetry 92 96 90 Oxygen Delivery Method Nasal Cannula Non-rebreather Nasal Cannula Oxygen Flow Rate 4 6 Fraction of Inspired Oxygen Sepsis Recent Fever Within 48 Hours Sepsis New/Unexplained Change in Mental Status Sepsis Action Taken by Nursing Oxygen Flow Rate - Titration Pulse Oximetry Post Tiitration 08/23/23 01:19 08/23/23 01:37 08/23/23 02:24 Temperature Temperature Source Pulse Rate 79 74 Pulse Rate [Apical] 73 Pulse Rate from SpO2 Sensor 74 Respiratory Rate 30 H 22 20 Respiratory Effort / Characteristics Spontaneous Non-Labored Respiratory Depth Normal Normal Respiratory Pattern Regular Regular Blood Pressure 136/43 L Blood Pressure [Right Calf] 119/45 L Blood Pressure Mean 98 Blood Pressure Mean [Right Calf] 69 Pulse Oximetry 95 97 100 Oxygen Delivery Method BiPAP BiPAP Oxygen Flow Rate Fraction of Inspired Oxygen 50 Sepsis Recent Fever Within 48 Hours Sepsis New/Unexplained Change in Mental Status Sepsis Action Taken by Nursing Oxygen Flow Rate - Titration Pulse Oximetry Post Tiitration VITALS: Vitals are noted on the nurse's note and reviewed by myself. Vital signs hypoxic and hypotensive and patient improved with nonrebreather GENERAL: Elderly female pale diaphoretic, in no acute distress, nondiaphoretic, well-developed well-nourished. SKIN: Capillary reflex less than 2 seconds. HEENT: Normocephalic. PERRLA. EOMI. Nares patent. Mucous membranes moist. Neck is supple without nuchal rigidity. HEART: Regular rate and rhythm LUNGS: Mild bibasilar rales. no retractions or accessory muscle use. ABDOMEN: Positive bowel sounds x 4. Normal tympanic percussion. Soft, nontender, without masses or organomegaly. Hawley sign negative. No guarding or rebound tenderness. no CVA tenderness MUSCULOSKELETAL: No gross musculoskeletal defects. NEURO: Patient was alert and oriented to person place and time. No focal neurological deficits. Course Administered Medications Discontinued Medications Pantoprazole Sodium 80 mg/ (Dextrose) 120 mls @ 480 mls/hr IV ONE STA Stop: 08/23/23 01:52 Last Infusion: 08/23/23 02:23 Dose: Infused Documented By: Admin: 08/23/23 01:46 Dose: 480 mls/hr Documented By: HIRAM Famotidine (Pepcid 20mg Iv Push) 20 mg in 5 mls @ 2.5 mls/min IV NOW STA Stop: 08/23/23 01:39 Last Admin: 08/23/23 01:46 Dose: 2.5 mls/min Documented By: HIRAM Ondansetron HCl (Ondansetron Inj 2 Mg/Ml 2 Ml Vial) 4 mg IV NOW STA Stop: 08/23/23 01:39 Last Admin: 08/23/23 01:47 Dose: 4 mg Documented By: HIRAM Critical Care Time Critical Care Time: Yes Total Critical Care Time: 35 I have personally spent 35 minutes of critical care time in the direct management of this patient. This includes bedside care, interpretation of diagnostic studies, and testing, discussion with consultants, patient, and family members, and other required patient management activities. This 35 minutes is in excess of all separately billable procedures. Medical Decision Making Medical Records Attestation: I reviewed the patient's medical records. Home Medications Current Medication List: was personally reviewed by me Laboratory Data Attestation: I reviewed the patient's lab results. 08/23/23 01:36 08/23/23 01:36 Lab Results 08/23/23 08/23/23 08/23/23 Range/Units 01:32 01:36 02:47 WBC 11.25 H (4.8-10.8) K/ul RBC 2.01 L (4.20-5.40) M/uL Hgb 6.8 L* (12.0-16.0) g/dl Hct 21.9 L (37.0-47.0) % MCV 109.0 H D (80.0-100.0) fL MCH 33.8 (25.0-34.0) pg MCHC 31.1 L (32.0-36.0) g/dL RDW Std Deviation 57.6 H (36.4-46.3) fL RDW Coeff of Vikas 15.6 H (11.5-14.5) % Plt Count 396 (130-400) K/uL MPV 9.8 (9.4-12.4) fL Immature Gran % (Auto) 1.4 % Neut % (Auto) 75.2 % Lymph % (Auto) 13.5 % [place] % (Auto) 7.6 % Eos % (Auto) 1.5 % Baso % (Auto) 0.8 % Neut # (Auto) 8.45 H (1.40-6.50) K/uL Lymph # (Auto) 1.52 (1.20-3.40) K/uL [place] # (Auto) 0.86 H (0.11-0.59) K/uL Eos # (Auto) 0.17 (0.00-0.50) K/uL Baso # (Auto) 0.09 (0.00-0.20) K/uL Immature Gran # (Auto) 0.16 (0.01-0.20) K/uL Absolute Nucleated RBC 0.13 H (0.00-0.12) K/uL Nucleated RBC % (auto) 1.2 % Polychromasia 1+ Stomatocytes 1+ VBG pH Cancelled 7.32 L VBG pCO2 Cancelled 62 H VBG pO2 Cancelled 44 VBG HCO3 Cancelled 32 VBG O2 Saturation Cancelled 67.6 VBG Base Excess Cancelled 4.0 Barometric Pressure Cancelled Sodium 135 L (136-145) mmol/L Potassium 4.7 (3.5-5.1) mmol/L Chloride 96 L (98-107) mmol/L Carbon Dioxide 29 (21-32) mmol/L Anion Gap 10 (3-11) BUN 59 H (6-23) mg/dl Creatinine 1.79 H (0.6-1.2) mg/dl Est Cr Clr Drug Dosing 34.0 ml/min Est GFR ( Amer) 32.2 ml/min Est GFR (Non-Af Amer) 27.8 ml/min BUN/Creatinine Ratio 33.0 H (10-20) Glucose 134 H (70-99(Fasting)) mg/dl Calcium 9.4 (8.6-10.3) mg/dl Magnesium 2.6 H (1.7-2.4) mg/dl Total Bilirubin 0.5 (0.2-1.0) mg/dl AST 20 (13-39) U/L ALT 10 (7-52) U/L Alkaline Phosphatase 71 (34-104) U/L Troponin I High Sens 11.6 (0-14) pg/ml Total Protein 6.4 (6.0-8.3) gm/dl Albumin 3.5 (3.4-5.0) gm/dl Globulin 2.9 (2.5-4.0) gm/dl Albumin/Globulin Ratio 1.2 (0.9-2) TSH 1.477 (0.300-4.500) uIu/ml Adenovirus (PCR) Not Detected (NotDetected) B. pertussis DNA (PCR) Not Detected (NotDetected) B.parapertussis DNA PCR Not Detected (NotDetected) C. pneumoniae DNA (PCR) Not Detected (NotDetected) Coronavirus OC43 (PCR) Not Detected (NotDetected) Coronavirus HKU1 (PCR) Not Detected (NotDetected) Coronavirus 229E (PCR) Not Detected (NotDetected) SARS-CoV-2 (PCR) Not Detected (NotDetected) Coronavirus NL63 (PCR) Not Detected (NotDetected) Human Metapneumovir PCR Not Detected (NotDetected) Influenza Type A (PCR) Not Detected (NotDetected) Influenza Type B (PCR) Not Detected (NotDetected) M. pneumoniae (PCR) Not Detected (NotDetected) Parainfluenza 1 (PCR) Not Detected (NotDetected) Parainfluenza 2 (PCR) Not Detected (NotDetected) Parainfluenza 3 (PCR) Not Detected (NotDetected) Parainfluenza 4 (PCR) Not Detected (NotDetected) RSV (PCR) Not Detected (NotDetected) Entero/Rhino (PCR) Not Detected (NotDetected) Blood Type A Positive Antibody Screen NEGATIVE Crossmatch See Detail Imaging Data Attestation: I personally reviewed and interpreted this imaging study as follows: MDM Narrative Prior records/ancillary studies reviewed and summarized above. Nursing notes reviewed. Additional history obtained from family. The patient's history was concerning for shortness of breath with hypotension and low pulse ox. Differential diagnosis: Etiologies such as metabolic, infection, hypo/hyperglycemia, electrolyte abnormalities, cardiac sources, intracerebral event, toxicologic, neurologic, as well as others were entertained. Physical examination: As above. ER treatment provided: IV Lock An order was placed for continuous cardiac monitoring. The monitor shows a rate of 60-100 with a sinus rhythm per my interpretation. BiPAP and patient was typed and crossmatched and consented to blood patient was severely anemic and typed and crossmatched for 1 unit Pepcid, Protonix and Zofran were ordered On reassessment the patient felt better. Diagnostics interpretation by me: ECG: Ordered for dyspnea EKG: Right bundle branch block, no acute ST-T wave changes, rate of 80. Impression right bundle branch block independently interpreted by myself The labs Independently Interpreted by myself revealed severe anemia patient was typed and crossmatched for 1 unit Negative troponin. Negative BioFire. Imaging studies: Chest x-ray slight improved aeration within the near complete opacification the left hemithorax. Pulmonary edema and trace bilateral pleural effusions again noted. Per my independent interpretation Consultation: A consultation was placed with the hospitalist. The case was discussed and diagnostics were reviewed. The patient was evaluated in the ER for further treatment. Exam and history seem consistent with respiratory failure and anemia. Patient was started on BiPAP and she was transfused a unit of blood. She was improving. She was no longer hypotensive. Her breathing improved. She is agreeable treatment plan of admission. Medicine was consulted and case discussed will be made to the medical service for further evaluation and workup. Patient was reassessed multiple times. She great improvement with the BiPAP. She has tolerated blood transfusions well in the past. By the evaluation outlined above emergent etiologies such as infection, electrolyte abnormalities, intracerebral event, toxologic, neurologic, abnormalities blood glucose, metabolic, as well as others were deemed relatively unlikely. The pt informed about the findings as listed above. All questions were answered and pleased with the treatment. The chart was completed utilizing [employer] Speech voice recognition software. Grammatical errors, random word insertions, pronoun errors, and incomplete sentences are an occassional consequence of this system due to software limitations, ambient noise, and hardware issues. Any formal questions or concerns about the content, text, or information contained within the body of this dictation should be directly addressed to the physician curatorial assistant for clarification. Impression & Plan Acute respiratory failure, Weakness, Anemia Discharge Plan Visit Data Chief Complaint: Hypotension Stated Complaint: HYPOXIA, HYPOTENSIVE ED Provider: Lamar Sanz ED Midlevel Provider: Kaylan Herrera Discharge Problem: Acute respiratory failure, Weakness, Anemia Patient Disposition: Admitted As Inpatient Condition: Fair Forms Stand Alone Forms: [facility] Prescriptions Prescriptions: No Action atorvastatin [Lipitor] 80 mg Tablet 80 mg PO HS aspirin [Malcom Low Dose Aspirin] 81 mg Tablet,Delayed Release (Dr/Ec) 81 mg PO HS gabapentin 300 mg Capsule 300 mg PO TID Januvia 100 mg tablet 100 mg PO QPM metformin 850 mg tablet 850 mg PO BID quetiapine 100 mg tablet 100 mg PO HS lisinopril 5 mg tablet 5 mg PO DAILY potassium chloride 10 mEq tablet extended release 10 meq PO DAILY doxycycline hyclate 100 mg Capsule 100 mg PO BID Qty: 20 0RF Rx Instructions: STARTED 08/20/23 FOR 10 DAYS, ENDS 08/30/23. magnesium oxide 400 mg (241.3 mg magnesium) Tablet 400 mg PO BID Qty: 20 0RF polyethylene glycol 3350 [Miralax] 17 gram Powder In Packet 17 g PO DAILY Qty: 14 0RF Rx Instructions: MAY HAVE ADDITIONAL DOSE DAILY FOR CONSTIPATION pantoprazole 40 mg Tablet,Delayed Release (Dr/Ec) 40 mg PO BID Qty: 30 0RF sennosides-docusate sodium [Senokot-S] 8.6-50 mg Tablet 1 tab PO BID Qty: 60 0RF insulin glargine [Lantus U-100 Insulin] 100 unit/mL Solution 20 unit subcut BID Qty: 30 0RF acetaminophen [Tylenol] 325 mg Tablet 650 mg PO Q4H MDD 3 GRAMS APAP/24 HOURS PRN (Reason: PAIN/FEVER=>100) lorazepam 0.5 mg Tablet 0.5 mg PO BID PRN (Reason: Anxiety) docusate sodium [Colace] 100 mg Capsule 100 mg PO DAILY PRN (Reason: Constipation) furosemide [Lasix] 20 mg Tablet 20 mg PO DAILY mirtazapine [Remeron] 15 mg Tablet 15 mg PO HS ipratropium-albuterol 0.5 mg-3 mg(2.5 mg base)/3 mL solution for nebulization 3 ml inhalation Q6H PRN (Reason: Dyspnea) Referrals Referrals: PCP,NO [Primary Care Provider] - Discharge Problem: Acute respiratory failure Qualifiers: Respiratory failure complication: unspecified whether with hypoxia or hypercapnia Qualified Code(s): J96.00 - Acute respiratory failure, unspecified whether with hypoxia or hypercapnia
[2023-08-23] MEDS: PANTOprazole 80 MG in DEXTROSE 5% 100 ML IV STA (01:46)
[2023-08-23] MEDS: FAMOTIDINE 20MG IV PUSH 20 MG/5 ML SYR IV STA (01:46)
[2023-08-23] MEDS: ONDANSETRON INJ 2 MG/ML 2 ML VIAL IV STA (01:47)
[2023-08-23 02:12] LABS: Albumin Globulin Ratio 1.2 (0.9-2); Albumin Level 3.5 gm/dl (3.4-5.0); Bilirubin,Total 0.5 mg/dl (0.2-1.0); Calcium 9.4 mg/dl (8.6-10.3); Est GFR (African American) 32.2 ml/min; Est GFR (Non-African American) 27.8 ml/min; Globulin 2.9 gm/dl (2.5-4.0); Magnesium 2.6 mg/dl (1.7-2.4); Potassium 4.7 mmol/L (3.5-5.1); Total Protein 6.4 gm/dl (6.0-8.3)
[2023-08-23 02:18] LABS: Troponin I High Sensitivity 11.6 pg/ml (0-14)
[2023-08-23 02:22] LABS: Basophils # (auto) 0.09 K/uL (0.00-0.20); Basophils % (auto) 0.8 %; Eosinophils # (auto) 0.17 K/uL (0.00-0.50); Eosinophils % (auto) 1.5 %; Hematocrit (blood only) 21.9 % (37.0-47.0); Hemoglobin 6.8 g/dl (12.0-16.0); Immature Granulocytes # (auto) 0.16 K/uL (0.01-0.20); Immature Granulocytes % (auto) 1.4 %; Lymphocytes # (auto) 1.52 K/uL (1.20-3.40); Lymphocytes % (auto) 13.5 %; Mean Corpuscular Hemoglobin 33.8 pg (25.0-34.0); Mean Corpuscular Hgb Conc 31.1 g/dL (32.0-36.0); Mean Platelet Volume 9.8 fL (9.4-12.4); Monocytes # (auto) 0.86 K/uL (0.11-0.59); Monocytes % (auto) 7.6 %; Neutrophils # (auto) 8.45 K/uL (1.40-6.50); Neutrophils % (auto) 75.2 %; Nucleated RBC # (auto) 0.13 K/uL (0.00-0.12); Nucleated RBC % (auto) 1.2 %; Platelet Count 396 K/uL (130-400); Polychromasia 1+; RDW Coefficient of Variation 15.6 % (11.5-14.5); RDW Standard Deviation 57.6 fL (36.4-46.3); Red Blood Count 2.01 M/uL (4.20-5.40); Stomatocytes 1+; White Blood Count 11.25 K/ul (4.8-10.8)
[2023-08-23 02:27] LABS: Adenovirus PCR Not Detected (NotDetected); Bordetella parapertussis PCR Not Detected (NotDetected); Bordetella pertussis PCR Not Detected (NotDetected); Chlamydia pneumoniae PCR Not Detected (NotDetected); Coronavirus 229E PCR Not Detected (NotDetected); Coronavirus CoV-2 (COVID19)PCR Not Detected (NotDetected); Coronavirus HKU1 PCR Not Detected (NotDetected); Coronavirus NL63 PCR Not Detected (NotDetected); Coronavirus OC43PCR Not Detected (NotDetected); Human Metapneumovirus PCR Not Detected (NotDetected); Influenza A PCR Not Detected (NotDetected); Influenza B PCR Not Detected (NotDetected); Mycoplasma pneumoniae PCR Not Detected (NotDetected); Parainfluenza Virus 1 PCR Not Detected (NotDetected); Parainfluenza Virus 2 PCR Not Detected (NotDetected); Parainfluenza Virus 3 PCR Not Detected (NotDetected); Parainfluenza Virus 4 PCR Not Detected (NotDetected); Respiratory Syncytial VirusPCR Not Detected (NotDetected); Rhinovirus/Enterovirus PCR Not Detected (NotDetected)
[2023-08-23 02:27] LABS: Thyroid Stimulating Hormone 1.477 uIu/ml (0.300-4.500)
[2023-08-23] MEDS ORDERED: SODIUM CHLORIDE 0.9% 250 ML IV PRN (02:38)
--- NOTE | 2023-08-23 02:46 | History & Physical Report ---
Date of Service August 23, 2023 Assessment & Plan (1) Acute respiratory failure: Plan: - Patient CXR on arrival in the EMD with ABEL aeration and noted bronchograms- with BiPAP in place - She is currently on BiPAP, ABG pending at time of admission. - VBG 7. - Continue with hypertonic saline, cough assist, and BiPAP - Pulmonary consulted and patient transferred to the ICU - Completed Doxycyline on for pneumonia -Will start on doxycycline and cefepime at time of admission and defer to ICU regarding further treatment. (2) Anemia: Plan: -Hemoglobin of 6.8 at time of admission. -Was supposed to get transfused tomorrow at [facility]. -Will transfuse 1 unit of blood at this time. (3) EYAD (acute kidney injury): Plan: -Will be getting 1 unit of blood. -Reevaluate need for fluids after unit of blood. (4) Advanced care planning/counseling discussion: Plan: -Did have palliative care discussion at previous admission. -Should consider further exploring option as patient is high risk for mortality during this hospitalization. (5) Acute on chronic diastolic CHF (congestive heart failure): Plan: -Does not appear to be in an acute exacerbation of her congestive heart failure. -Diuresis as needed. (6) Diabetes mellitus type 2, uncontrolled: Plan: -Transferred to the ICU, follow ICU protocol. Plan Nutrition: N.p.o. Code status: Conditional code, may need to reassess given differences between family and patient. DVT ppx: SCDs Consults: Freelance Director, pulmonology Dispo: ICU History of Present Illness Chief Complaint: anemia, ARF Primary Care Provider: NO PCP Patient is a 73-year-old female with past medical history of Morbid Obesity, HFpEF, Chronic Respiratory failure (non-compliant with BiPAP and cough assist at home), HTN, Anemia, DMII uncontrolled, Anemia. Patient was recently admitted and discharged on August 20 following a fall resulting in pelvic ramus fracture, and closed right fibular fracture that was managed non-surgical. She also had an A-port placed for chronic blood transfusions. She also underwent bronchoscopy at that time by Dr. Jean-Baptiste for left lung collapse secondary to mucoid impaction. The bronchoscopy was simotaneously done with A-port secondary to her high risk of sedation and intubation. She had good results x1 day following her bronchoscopy and again on 08/18/23 she had collapse of the left lung again, the patient refused another bronchoscopy at that time and she also refused her CoughAssist as well as BiPAP. She had a palliative care discussion at that time which also seemed to have discrepancies as patient wanted to be DNR/DNI, but family wanted continued support. She was eventually discharged. It is unsure if she was discharged with BiPAP or not. She is accompanied by her at this time, and he states she does not have a mask or machine at her rehab facility, but does continue to decline cough assist or deep breathing and coughing mechanics. Discussed with the patient and the at the bedside and patient is able to wake up, she is aware of where she is and states that she would not want to be intubated and on a ventilatory if she would go into respiratory or cardiac arrest/failure, but would want CPR and Medications. As patient is currently dependant on her VT and RR with BiPAP will admit to ICU for coordination of care and await pulmonary evaluation this morning for possible bronchoscopy. This again would be high risk in regards to her overall ability to handle sedation without being intubated as well as getting extubated. Allergies Allergy/AdvReac Type Severity Reaction Status Date / Time latex Allergy Severe 2ND DEGREE Verified 08/23/23 01:52 BURN FROM BANDAGE adhesive Allergy Intermediate RASH Verified 08/23/23 01:52 Home Medications Medication Instructions Recorded Confirmed Type aspirin 81 mg tablet,delayed 81 mg PO HS 10/30/18 08/23/23 History release (Malcom Low Dose Aspirin) atorvastatin 80 mg tablet (Lipitor) 80 mg PO HS 10/30/18 08/23/23 History gabapentin 300 mg capsule 300 mg PO TID 10/30/18 08/23/23 History sitagliptin phosphate 100 mg 100 mg PO QPM 01/08/21 08/23/23 History tablet (Januvia) lisinopril 5 mg tablet 5 mg PO DAILY 12/13/21 08/23/23 History metformin 850 mg tablet 850 mg PO BID 12/13/21 08/23/23 History quetiapine 100 mg tablet 100 mg PO HS 12/13/21 08/23/23 History potassium chloride 10 mEq 10 meq PO DAILY 08/07/23 08/23/23 History tablet,extended release doxycycline hyclate 100 mg capsule 100 mg PO BID #20 caps 08/20/23 08/23/23 Rx insulin glargine 100 unit/mL 20 unit (0.2 mL) subcut BID #30 mL 08/20/23 08/23/23 Rx subcutaneous solution (Lantus U-100 Insulin) magnesium oxide 400 mg (241.3 mg 400 mg PO BID #20 tabs 08/20/23 08/23/23 Rx magnesium) tablet pantoprazole 40 mg tablet,delayed 40 mg PO BID #30 tabs 08/20/23 08/23/23 Rx release polyethylene glycol 3350 17 gram 17 g PO DAILY #14 ea 08/20/23 08/23/23 Rx oral powder packet (Miralax) sennosides 8.6 mg-docusate sodium 1 tab PO BID #60 tabs 08/20/23 08/23/23 Rx 50 mg tablet (Senokot-S) acetaminophen 325 mg tablet 650 mg PO Q4H PRN PAIN/FEVER=>100 08/23/23 08/23/23 History (Tylenol) docusate sodium 100 mg capsule 100 mg PO DAILY PRN Constipation 08/23/23 08/23/23 History (Colace) furosemide 20 mg tablet (Lasix) 20 mg PO DAILY 08/23/23 08/23/23 History ipratropium 0.5 mg-albuterol 3 mg 3 ml inhalation Q6H PRN Dyspnea 08/23/23 08/23/23 History (2.5 mg base)/3 mL nebulization soln lorazepam 0.5 mg tablet 0.5 mg PO BID PRN Anxiety 08/23/23 08/23/23 History mirtazapine 15 mg tablet (Remeron) 15 mg PO HS 08/23/23 08/23/23 History Past Med/Surg History Medical History Advanced care planning/counseling discussion Palliative care by specialist Weakness generalized Cancer related pain Macrocytic anemia Shortness of breath Palliative care encounter Hyponatremia Complicated UTI (urinary tract infection) H/O defect LEFT ARM Diabetes mellitus, type 2 NIDDM Temporomandibular joint disorder NO PROBLEMS RECENTLY. Glaucoma WELL CONTROLLED Anxiety Depression Peripheral neuropathy BILATERAL FEET Hyperlipidemia Hypertension Chronic obstructive pulmonary disease Surgical History Port-A-Cath in place (08/17/23) Cristianrt Jesus - Avery Kirkpatrick, DO S/P JALIL-BSO History of total shoulder replacement RIGHT History of incision and drainage UMBILICAL ABSCESS Hx of umbilical hernia repair X4 -- WEARS SUPPORT BAND DAILY History of colonoscopy History of cholecystectomy History of appendectomy S/P tonsillectomy and adenoidectomy Family History Mother Diabetes mellitus, type 2 Aunt Diabetes mellitus, type 2 Social History Smoking Status: Former smoker Tobacco Type: Cigarettes Cigarettes Per Day: quit 1 year ago; Second Hand Exposure: No; Do You Dip or Chew Tobacco: No; Tobacco Cessation Education Requested by Patient: No Hx Alcohol Use: No Hx Substance Use: No Preferred Language: Turkish Communication Ability: Effective Family Resource Management Professor Required: No Beliefs That Will Affect Care: None marital status: Current Living Situation: Shelter current occupational status: retired Other Information That Helps Us Care for You: No Feels Safe at Home: Yes Safety Concerns: Feels Safe At This Time Assistive Devices: BiPap, Oxygen - Continuous, Walker and Wheelchair Assistive Devices Comment: right leg in hard cast Review of Systems Review of Systems: All systems reviewed & are unremarkable except as noted in Subjective Physical Exam Physical Exam: Constitutional: Obese, on BiPAP, resting though arousable HEENT: NCAT, no conjunctival injection CV: regular rhythm, no murmur appreciated, extremities well-perfused, no LE edema Resp: Left lower lobe diminished breath sounds GI: soft, nondistended, nontender, BS normoactive MSK: Unable to assess, right lower extremity cast in place Skin: warm, dry, no rash appreciated Neuro: alert, oriented, no focal neurologic deficit appreciated Results & Data Results & Data Vital Signs (Past 12 Hours) Vital Signs Temp Pulse Pulse Resp BP BP Pulse Ox 08/23/23 02:24 73 20 119/45 L 100 08/23/23 01:37 74 22 136/43 L 97 08/23/23 01:19 79 30 H 95 08/23/23 01:06 74 16 90 08/23/23 01:01 64 20 127/47 L 96 08/23/23 00:27 71 16 91/55 L 92 08/23/23 00:27 96 08/23/23 00:26 75 08/23/23 00:18 36.4 C L 73 16 107/52 L 96 O2 Del Method O2 Flow Rate FiO2 08/23/23 02:24 BiPAP 08/23/23 01:37 BiPAP 08/23/23 01:19 50 08/23/23 01:06 Nasal Cannula 6 08/23/23 01:01 Non-rebreather 08/23/23 00:27 Nasal Cannula 4 08/23/23 00:27 Nasal Cannula 6 08/23/23 00:26 08/23/23 00:18 Nasal Cannula 6 Critical Care Time 50 minutes Supervising Physician Co-Signing Physician Notes Attending addendum: I have physically seen this patient, have supervised the medical residents activities, and agree with the H&P unless as otherwise noted. Assessment and Plan: Acute on chronic respiratory failure with hypoxia- Relatively stable on BiPAP, continue and will be admitted to the ICU Just completed a course of doxycycline on 08/22 for pneumonia Placed on cefepime 2 g IV every 12 hours and doxycycline 100 mg IV every 12 hours MRSA swab Duonebs every 4 hours while awake and every 2 hours when necessary. May be an element of high-output heart failure Follow posttransfusion to see if furosemide IV is necessary Patient is a conditional code Anemia- Hemoglobin 6.8 upon admission, with 1 unit PRBCs ordered by the ED Repeat H&H 1 hour after transfusion Acute kidney injury- Creatinine 1.79, with baseline 0.62 Should improve with transfusion and increased blood flow Follow serial laboratories (1) Acute respiratory failure Respiratory failure complication: unspecified whether with hypoxia or hypercapnia Qualified Code(s): J96.00 - Acute respiratory failure, unspecified whether with hypoxia or hypercapnia
[2023-08-23 02:55] LABS: HCO3 VBG 32 mmol/L; Oxygen Saturation VBG 67.6 %; PCO2 VBG 62 mmHg (38-50); PO2 VBG 44 mmHg; pH VBG 7.32 (7.36-7.41)
--- NOTE | 2023-08-23 03:19 | Emergency Department Note ---
ED Visit Note I was consulted by the Advanced Practice Provider. I discussed the management plan with the JOE as well as course of treatment in the ER . -History/Physical/Personally seeing the patient -MDM We discussed use of BiPAP as well as blood transfusion, blood consent signed by me. .
[2023-08-23 04:25] LABS: Appearance Urine Clear (Clear); Bacteria Urine Automated Negative (Negative); Bilirubin Urine Negative (Negative); Blood Urine Negative (Negative); Color Urine Dark Yellow; Epithelial Cell Urine Auto >30 /lpf (0-5); Glucose Urine UA 1+ (Negative); Ketones Urine Trace (Negative); Leukocyte Esterase Urine 1+ (Negative); Nitrite Urine Negative (Negative); Protein Urine Negative (Negative); RBC Urine Automated 0-4 /hpf (0-4); Specific Gravity Urine 1.018 (1.000-1.030); Urobilinogen Urine Negative (Negative); pH Urine 5.5 (4.5-7.5)
--- NOTE | 2023-08-23 04:29 | Critical Care Consultation ---
Date of Consultation August 23, 2023 Assessment & Plan (1) Chronic respiratory failure with hypoxia and hypercapnia: (2) Atelectasis of left lung: (3) Anemia: (4) Obesity: (5) Diabetes mellitus type 2, uncontrolled: Plan Reason Critically Ill: Hypercarbic/Hypoxic Respiratory failure complicated by left lobe collapse. Neuro - No acute needs CAM ICU: NEGATIVE - Patient at this time appears with the ability to comprehend and make her own decisions Cardiac - HfpEF, HTN, - At this time does not appear to be in acute heart failure exacerbation - Diurese as needed - NPO at this time Respiratory - Acute on Chronic Hypercarbic/Hypoxic Respiratory Failure, Left lung collapse, Morbid obesity with obesity hypoventilation syndrome - Patient CXR on arrival in the EMD with ABEL aeration and noted bronchograms- with BiPAP in place - She is currently on BiPAP with back up rate of 22 and VT 450s-550s- repeat VBG/ABG on arrival to ICU - VBG 7.32//32 - Continue with hypertonic saline, cough assist, and BiPAP - Appreciate pulmonary evaluation for bronchoscopy- very high risk - Will need to clarify if she has BiPAP on discharge Patient with very high mortality based on her non compliance, morbid obesity and co-morbid heart failure and uncontrolled diabetes. Non compliance with her BiPAP or AVAPS will result in from respiratory failure. Patient is also very high risk to not be able to be extubated if once intubated and states she would not want a tracheostomy or want to be on a ventilator and echos this. GI - Morbid obesity - No acute needs - NPO RENAL/LYTES - EYAD - Provide volume with PRBC and re-evaluate - maybe related to decreased oral intake and diuretic use - No acute needs ENDO - DMII uncontrolled - ICU hyperglycemic protocol HEME - Chronic macrocytic anemia - supposed to get transfused tomorrow at [facility]- Transfuse 1U PRBC now ID - No concern at this time of infective process - Completed Doxycyline on [id number] for pneumonia LINES/IV ACCESS - APORT left chest wall Continue use of these lines DVT PROPHYLAXIS - SCDS, hold chemoprophylaxis until procedural situation evaluated DISPO: ICU until respiratory status ensured adequate on BiPAP therapy I have personally spent 40 minutes of critical care time in the direct management of this patient. This is a life/limb threatening event. This includes time spent evaluating patient, direct bedside care, chart review, placing orders, interpretation of diagnostic studies, discussion with consultants, patient, and family members, as well as other required patient management activities. This time is exclusive of all separately billable procedures, and teaching time and separate from and in addition to any other critical care service time. Thank you for allowing us to participate in the care of this patient. Please refer to my attending physician's documentation for any further recommendations. Supervising Physician Co-Signing Physician Notes Patient improved and was able to tolerate off BiPAP status post procedure. She was placed back on for her desire to nap. Strongly encourage mobility. Reviewed prior discharge planning notes/palliative care notes: 08/20/2023 all in agreement for hospice after assisted facility rehab trial. I do not believe the frequent mucoid impaction while necessarily resolve, I do not think repeat bronchoscopy for secretion clearance is in line with previously documented treatment goals. I would strongly consider reconsultation of palliative care to further education regarding treatment modalities if and when patient experiences hypoxia. During this episode of care patient again expressed her reluctance and hesitance to undergo the bronchoscopy. I feel this would likely continue and probably increase in frequency. Patient is stable for downgrade out of ICU. History of Present Illness Reason for Consultation: Left Lung Collapse resulting in hyoxic/hypercarbic respiratory failure Requesting Physician: Ru Parrish MD Attending Physician: Ru Parrish MD History of Present Illness 73 YOF with medical history of: Morbid Obesity, HFpEF, Chronic Respiratory failure (non-compliant with BiPAP and cough assist at home), HTN, Anemia, DMII uncontrolled, Anemia. Patient was recently admitted Aug 16-2023 following fall resulting in pelvic ramus fracture, and closed right fibular fracture that was managed non-surgical. She also had an A-port placed for chronic blood transfusions. She also underwent bronchoscopy at that time by Dr. Jean-Baptiste for left lung collapse secondary to mucoid impaction. The bronchoscopy was simotaneously done with A-port secondary to her high risk of sedation and intubation. She had good results x1 day following her bronchoscopy and again on 08/18/23 she had collapse of the left lung again, the patient refused another bronchoscopy at that time and she also refused her CoughAssist as well as BiPAP. She had a palliative care discussion at that time which also seemed to have discrepancies as patient wanted to be DNR/DNI, but family wanted continued support. She was eventually discharged. It is unsure if she was discharged with BiPAP or not. She is accompanied by her at this time, and he sta mariely she does not have a mask or machine at her rehab facility, but does continue to decline cough assist or deep breathing and coughing mechanics. Discussed with the patient and the at the bedside and patient is able to wake up, she is aware of where she is and states that she would not want to be intubated and on a ventilatory if she would go into respiratory or cardiac arrest/failure, but would want CPR and Medications. CODE STATUS WILL BE CHANGED. As patient is currently dependant on her VT and RR with BiPAP will admit to ICU for coordination of care and await pulmonary evaluation this morning for possible bronchoscopy. This again would be high risk in regards to her overall ability to handle sedation without being intubated as well as getting extubated. CODE: CONDITIONAL- DO NOT INTUBATE or MECHANICAL VENTILATION Allergies Allergy/AdvReac Type Severity Reaction Status Date / Time latex Allergy Severe 2ND DEGREE Verified 08/23/23 01:52 BURN FROM BANDAGE adhesive Allergy Intermediate RASH Verified 08/23/23 01:52 Home Medications Medication Instructions Recorded Confirmed Type aspirin 81 mg tablet,delayed 81 mg PO HS 10/30/18 08/23/23 History release (Malcom Low Dose Aspirin) atorvastatin 80 mg tablet (Lipitor) 80 mg PO HS 10/30/18 08/23/23 History gabapentin 300 mg capsule 300 mg PO TID 10/30/18 08/23/23 History sitagliptin phosphate 100 mg 100 mg PO QPM 01/08/21 08/23/23 History tablet (Januvia) lisinopril 5 mg tablet 5 mg PO DAILY 12/13/21 08/23/23 History metformin 850 mg tablet 850 mg PO BID 12/13/21 08/23/23 History quetiapine 100 mg tablet 100 mg PO HS 12/13/21 08/23/23 History potassium chloride 10 mEq 10 meq PO DAILY 08/07/23 08/23/23 History tablet,extended release doxycycline hyclate 100 mg capsule 100 mg PO BID #20 caps 08/20/23 08/23/23 Rx insulin glargine 100 unit/mL 20 unit (0.2 mL) subcut BID #30 mL 08/20/23 08/23/23 Rx subcutaneous solution (Lantus U-100 Insulin) magnesium oxide 400 mg (241.3 mg 400 mg PO BID #20 tabs 08/20/23 08/23/23 Rx magnesium) tablet pantoprazole 40 mg tablet,delayed 40 mg PO BID #30 tabs 08/20/23 08/23/23 Rx release polyethylene glycol 3350 17 gram 17 g PO DAILY #14 ea 08/20/23 08/23/23 Rx oral powder packet (Miralax) sennosides 8.6 mg-docusate sodium 1 tab PO BID #60 tabs 08/20/23 08/23/23 Rx 50 mg tablet (Senokot-S) acetaminophen 325 mg tablet 650 mg PO Q4H PRN PAIN/FEVER=>100 08/23/23 08/23/23 History (Tylenol) docusate sodium 100 mg capsule 100 mg PO DAILY PRN Constipation 08/23/23 08/23/23 History (Colace) furosemide 20 mg tablet (Lasix) 20 mg PO DAILY 08/23/23 08/23/23 History ipratropium 0.5 mg-albuterol 3 mg 3 ml inhalation Q6H PRN Dyspnea 08/23/23 08/23/23 History (2.5 mg base)/3 mL nebulization soln lorazepam 0.5 mg tablet 0.5 mg PO BID PRN Anxiety 08/23/23 08/23/23 History mirtazapine 15 mg tablet (Remeron) 15 mg PO HS 08/23/23 08/23/23 History Patient History Medical History Advanced care planning/counseling discussion Palliative care by specialist Weakness generalized Cancer related pain Macrocytic anemia Shortness of breath Palliative care encounter Hyponatremia Complicated UTI (urinary tract infection) H/O defect LEFT ARM Diabetes mellitus, type 2 NIDDM Temporomandibular joint disorder NO PROBLEMS RECENTLY. Glaucoma WELL CONTROLLED Anxiety Depression Peripheral neuropathy BILATERAL FEET Hyperlipidemia Hypertension Chronic obstructive pulmonary disease Surgical History Port-A-Cath in place (08/17/23) Cristianrt Jesus - Avery D. Kirkpatrick, DO S/P JALIL-BSO History of total shoulder replacement RIGHT History of incision and drainage UMBILICAL ABSCESS Hx of umbilical hernia repair X4 -- WEARS SUPPORT BAND DAILY History of colonoscopy History of cholecystectomy History of appendectomy S/P tonsillectomy and adenoidectomy Family History Mother Diabetes mellitus, type 2 Aunt Diabetes mellitus, type 2 Social History Smoking Status: Former smoker Tobacco Type: Cigarettes Cigarettes Per Day: quit 1 year ago; Second Hand Exposure: No; Do You Dip or Chew Tobacco: No; Tobacco Cessation Education Requested by Patient: No Hx Alcohol Use: No Hx Substance Use: No Preferred Language: Icelandic Communication Ability: Effective Production Operations 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 Required: No Beliefs That Will Affect Care: None marital status: Current Living Situation: [facility] current occupational status: retired Other Information That Helps Us Care for You: No Feels Safe at Home: Yes Safety Concerns: Feels Safe At This Time Assistive Devices: BiPap, Oxygen - Continuous, Walker and Wheelchair Assistive Devices Comment: right leg in hard cast Review of Systems Review of Systems: REVIEW OF SYSTEMS: Constitutional: No fever, sweats or chills Eyes: No diplopia, no worsening or blurred vision ENT: normal hearing, no trouble swallowing Respiratory: (+) difficulty breathing, cough, no sputum, Cardiovascular: No chest pain, tightness or palpitations Abdomen: No pain, nausea, vomiting, diarrhea or constipation Musculoskeletal: (+) right lower leg in knee high cast, weight bearing with walker Neurologic: No weakness, numbness/tingling, or balance problems Physical Exam Physical Exam: PHYSICAL EXAM: General: asleep, arousable Head: Normocephalic, atraumatic ENT: PERRLA, EOMI, no pharyngeal exudate, mucous membranes moist Neuro: AAO x 3, speech clear and appropriate, follows commands, strength intact bilaterally 5/5, sensation intact no pronator drift Chest: equal rise and fall of the chest, diminished on left side 3/4 of the lung, right side with good air movement in upper- diminished bilateral bases but compounded by body habitus. Cardiac: Regular rate and rhythm, telemetry reviewed- NSR, skin warm dry, cap refill <3 seconds, peripheral pulses +2 no JVD, no murmur, no edema GI: NABS x 4 quadrants, soft, nontender to palpation, no rebound, guarding or tenderness Psych: Normal mood and affect Skin: no rash or erythema Results & Data Results & Data Vital Signs (Past 12 Hours) Vital Signs Temp Pulse Pulse Resp BP BP Pulse Ox 08/23/23 02:24 73 20 119/45 L 100 08/23/23 01:37 74 22 136/43 L 97 08/23/23 01:19 79 30 H 95 08/23/23 01:06 74 16 90 08/23/23 01:01 64 20 127/47 L 96 08/23/23 00:27 71 16 91/55 L 92 08/23/23 00:27 96 08/23/23 00:26 75 08/23/23 00:18 36.4 C L 73 16 107/52 L 96 O2 Del Method O2 Flow Rate FiO2 08/23/23 02:24 BiPAP 08/23/23 01:37 BiPAP 08/23/23 01:19 50 08/23/23 01:06 Nasal Cannula 6 08/23/23 01:01 Non-rebreather 08/23/23 00:27 Nasal Cannula 4 08/23/23 00:27 Nasal Cannula 6 08/23/23 00:26 08/23/23 00:18 Nasal Cannula 6 Laboratory Results Abnormal lab results 08/23/23 08/23/23 Range/Units 01:36 02:47 WBC 11.25 H (4.8-10.8) K/ul RBC 2.01 L (4.20-5.40) M/uL Hgb 6.8 L* (12.0-16.0) g/dl Hct 21.9 L (37.0-47.0) % MCV 109.0 H D (80.0-100.0) fL MCHC 31.1 L (32.0-36.0) g/dL RDW Std Deviation 57.6 H (36.4-46.3) fL RDW Coeff of Vikas 15.6 H (11.5-14.5) % Neut # (Auto) 8.45 H (1.40-6.50) K/uL [place] # (Auto) 0.86 H (0.11-0.59) K/uL Absolute Nucleated RBC 0.13 H (0.00-0.12) K/uL VBG pH 7.32 L (7.36-7.41) VBG pCO2 62 H (38-50) mmHg Sodium 135 L (136-145) mmol/L Chloride 96 L (98-107) mmol/L BUN 59 H (6-23) mg/dl Creatinine 1.79 H (0.6-1.2) mg/dl BUN/Creatinine Ratio 33.0 H (10-20) Glucose 134 H (70-99(Fasting)) mg/dl Magnesium 2.6 H (1.7-2.4) mg/dl Crossmatch See Detail Medications Administered Discontinued Medications Pantoprazole Sodium 80 mg/ (Dextrose) 120 mls @ 480 mls/hr IV ONE STA Stop: 08/23/23 01:52 Last Infusion: 08/23/23 02:23 Dose: Infused Documented By: Admin: 08/23/23 01:46 Dose: 480 mls/hr Documented By: HIRAM Famotidine (Pepcid 20mg Iv Push) 20 mg in 5 mls @ 2.5 mls/min IV NOW STA Stop: 08/23/23 01:39 Last Admin: 08/23/23 01:46 Dose: 2.5 mls/min Documented By: HIRAM Ondansetron HCl (Ondansetron Inj 2 Mg/Ml 2 Ml Vial) 4 mg IV NOW STA Stop: 08/23/23 01:39 Last Admin: 08/23/23 01:47 Dose: 4 mg Documented By: HIRAM Coding Level of Care Code 65907 CRITICAL CARE 1ST 30-74M Diagnoses Chronic respiratory failure with hypoxia and hypercapnia J96.11; J96.12 Atelectasis of left lung J98.11 Anemia D64.9 Obesity E66.9 Obesity classification: unspecified obesity classification Obesity type: unspecified obesity type Serious obesity comorbidity presence: with serious comorbidity Diabetes mellitus type 2, uncontrolled E11.65 (4) Obesity Obesity classification: unspecified obesity classification Obesity type: unspecified obesity type Serious obesity comorbidity presence: with serious comorbidity Qualified Code(s): E66.9 - Obesity, unspecified
[2023-08-23 04:38] LABS: iSTAT Arterial Blood Gas HCO3 32 meg/L (19-24); iSTAT Arterial Blood Gas pCO2 61 mmHg (35-46); iSTAT Arterial Blood Gas pH 7.33 (7.35-7.45); iSTAT Arterial Blood Gas pO2 105 mmHg (80-95); iSTAT Carbon Dioxide 34 mmol/L (24-31); iSTAT Hematocrit 19 % (37-47); iSTAT Hemoglobin 6.5 g/dl (12.0-16.0); iSTAT Potassium 4.4 mmol/L (3.3-5.0); iSTAT Sodium 133 mmol/L (135-144)
[2023-08-23] MEDS ORDERED: GLUCOSE 10 TAB/TUBE PO PRN (05:40)
[2023-08-23] MEDS ORDERED: CARBOHYDRATES FOR HYPOGLYCEMIA PO PRN (05:40)
[2023-08-23] MEDS ORDERED: GLUCOSE 40% GEL 15 GM TUBE PO PRN (05:40)
[2023-08-23] MEDS ORDERED: GLUCAGON FOR INJ 1 MG VIAL SQ PRN (05:40)
[2023-08-23] MEDS ORDERED: DEXTROSE 50% 50 ML SYRINGE IV PRN (05:40)
[2023-08-23] MEDS: CEFEPIME 2,000 MG in SYRINGE 0 ML IV SCH (06:12)
[2023-08-23] MEDS: SODIUM CHLOR 7% 4 ML NEB NEB SCH (07:22)
[2023-08-23] MEDS: ALBUT/IPRATROP 3MG/0.5MG NEB 3 ML VIAL NEB SCH (07:22)
[2023-08-23] MEDS ORDERED: ICU Protocol for HYPERglycemia SCH (07:30)
--- NOTE | 2023-08-23 07:35 | XRay Report ---
XR chest 1V portable CLINICAL HISTORY: weakness COMPARISON STUDY: Chest radiograph August 20, 2023. FINDINGS: Right shoulder arthroplasty and left subclavian [id number] are incidentally noted. There is no pneumothorax. Near-complete opacification of the left lung persists with associated volume los s. There is a trace left pleural effusion. IMPRESSION: No significant change in near complete opacification of the left lung with volume loss. ACT 112: Negative or not required by law. Electronically signed by: Alan Sanches M.D. 08/23/2023 7:33 AM
--- NOTE | 2023-08-23 08:52 | Pulmonary Consultation ---
Date of Consultation August 23, 2023 Assessment & Plan (1) Acute on chronic respiratory failure with hypoxia and hypercapnia: (2) Atelectasis of left lung: (3) Obesity: (4) Mucoid impaction of bronchi: Plan ABG 08/23/2022: 7.33/61/105 -- LEFT lung collapse Secondary to mucoid impaction s/p multiple bronchoscopies, last 1 being on 08/17/2023. Recommend to continue with aggressive chest PT. Again, continue with Mucinex, hypertonic saline, CoughAssist, and Mucomyst. BiPAP as needed. -- Acute on chronic respiratory failure with hypoxia and hypercapnia Likely secondary to noncompliance with BiPAP Hypoxia is most likely from underlying left lung collapse which is also almost chronic Respiratory bio fire negative for everything -- Morbid obesity Unfortunately this is negatively affecting the patient's respiratory status including her ventilatory function. Plan: Continue with nebulized N-acetylcysteine, nebulized hypertonic saline along with DuoNebs. Patient agreeable to use flutter valve, chest PT and CoughAssist Recommend keeping O2 saturation around 90-92%. Do not over oxygenate the patient Patient was on antibiotics prior to discharge. Would recommend to just continue and complete that course rather than starting new course of antibiotic Please note the above document was generated using voice recognition software. It may contain grammatical, syntax or spelling errors.Any formal questions or concerns about the content, text or information contained within the body of this dictation should be directly addressed to the provider for clarification. 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 Pulmonary consulted for whiteout of the left lung At the time of examination patient's was in the room. Patient had bronchoscopy done by Dr. Dang in the ICU just prior to me seeing her She was saturating 97-98% on 4 L nasal cannula. I went down to 2 L Was alert, oriented to self and place. Denied any chest pain Denied any shortness of breath She was not sure why she was brought back to the hospital. Denied any headache. She was not able to use any CoughAssist device ordered as they did not have it. She was not using the BiPAP machine over there as well. Allergies Allergy/AdvReac Type Severity Reaction Status Date / Time latex Allergy Severe 2ND DEGREE Verified 08/23/23 01:52 BURN FROM BANDAGE adhesive Allergy Intermediate RASH Verified 08/23/23 01:52 Home Medications Medication Instructions Recorded Confirmed Type aspirin 81 mg tablet,delayed 81 mg PO HS 10/30/18 08/23/23 History release (Malcom Low Dose Aspirin) atorvastatin 80 mg tablet (Lipitor) 80 mg PO HS 10/30/18 08/23/23 History gabapentin 300 mg capsule 300 mg PO TID 10/30/18 08/23/23 History sitagliptin phosphate 100 mg 100 mg PO QPM 01/08/21 08/23/23 History tablet (Januvia) lisinopril 5 mg tablet 5 mg PO DAILY 12/13/21 08/23/23 History metformin 850 mg tablet 850 mg PO BID 12/13/21 08/23/23 History quetiapine 100 mg tablet 100 mg PO HS 12/13/21 08/23/23 History potassium chloride 10 mEq 10 meq PO DAILY 08/07/23 08/23/23 History tablet,extended release doxycycline hyclate 100 mg capsule 100 mg PO BID #20 caps 08/20/23 08/23/23 Rx insulin glargine 100 unit/mL 20 unit (0.2 mL) subcut BID #30 mL 08/20/23 08/23/23 Rx subcutaneous solution (Lantus U-100 Insulin) magnesium oxide 400 mg (241.3 mg 400 mg PO BID #20 tabs 08/20/23 08/23/23 Rx magnesium) tablet pantoprazole 40 mg tablet,delayed 40 mg PO BID #30 tabs 08/20/23 08/23/23 Rx release polyethylene glycol 3350 17 gram 17 g PO DAILY #14 ea 08/20/23 08/23/23 Rx oral powder packet (Miralax) sennosides 8.6 mg-docusate sodium 1 tab PO BID #60 tabs 08/20/23 08/23/23 Rx 50 mg tablet (Senokot-S) acetaminophen 325 mg tablet 650 mg PO Q4H PRN PAIN/FEVER=>100 08/23/23 08/23/23 History (Tylenol) docusate sodium 100 mg capsule 100 mg PO DAILY PRN Constipation 08/23/23 08/23/23 History (Colace) furosemide 20 mg tablet (Lasix) 20 mg PO DAILY 08/23/23 08/23/23 History ipratropium 0.5 mg-albuterol 3 mg 3 ml inhalation Q6H PRN Dyspnea 08/23/23 08/23/23 History (2.5 mg base)/3 mL nebulization soln lorazepam 0.5 mg tablet 0.5 mg PO BID PRN Anxiety 08/23/23 08/23/23 History mirtazapine 15 mg tablet (Remeron) 15 mg PO HS 08/23/23 08/23/23 History Patient History Medical History Advanced care planning/counseling discussion Palliative care by specialist Weakness generalized Cancer related pain Macrocytic anemia Shortness of breath Palliative care encounter Hyponatremia Complicated UTI (urinary tract infection) H/O defect LEFT ARM Diabetes mellitus, type 2 NIDDM Temporomandibular joint disorder NO PROBLEMS RECENTLY. Glaucoma WELL CONTROLLED Anxiety Depression Peripheral neuropathy BILATERAL FEET Hyperlipidemia Hypertension Chronic obstructive pulmonary disease Surgical History Port-A-Cath in place (08/17/23) Aport Insertion - Avery Kirkpatrick, DO S/P JALIL-BSO History of total shoulder replacement RIGHT History of incision and drainage UMBILICAL ABSCESS Hx of umbilical hernia repair X4 -- WEARS SUPPORT BAND DAILY History of colonoscopy History of cholecystectomy History of appendectomy S/P tonsillectomy and adenoidectomy Family History Mother Diabetes mellitus, type 2 Aunt Diabetes mellitus, type 2 Social History Smoking Status: Former smoker Tobacco Type: Cigarettes Cigarettes Per Day: quit 1 year ago; Second Hand Exposure: No; Do You Dip or Chew Tobacco: No; Tobacco Cessation Education Requested by Patient: No Hx Alcohol Use: No Hx Substance Use: No Preferred Language: Cameroonian Communication Ability: Effective Transport Assistant Required: No Beliefs That Will Affect Care: None marital status: Current Living Situation: [facility] current occupational status: retired Other Information That Helps Us Care for You: No Feels Safe at Home: Yes Safety Concerns: Feels Safe At This Time Assistive Devices: BiPap, Oxygen - Continuous, Walker and Wheelchair Assistive Devices Comment: right leg in hard cast Review of Systems 2 Review of Systems: All systems reviewed & are unremarkable except as noted in HPI & below and Unobtainable due to mental health condition Physical Exam 2 Physical Exam: Constitutional: Respiratory distress HEENT: EOMI, PERRLA Respiratory system: Decreased air entry on the left side, no wheeze, no rhonchi, mild crackles bilaterally CVS: S1-S2 positive, no murmurs or gallops Abdomen: Soft, nontender, nondistended, positive bowel sounds x4, obese Extremities: +2 pulses bilaterally radialis/ dorsalis pedis, no cyanosis, +1 pitting edema left lower extremity, right lower extremity in splint Neuro: Awake, alert, oriented to self and place Psych: Normal mood and affect G/U: Positive Deleon Skin: no rashes, warm and dry Lymphatic: no cervical or axillary lymphadenopathy Results & Data Results & Data Vital Signs (Past 12 Hours) Vital Signs Temp Pulse Pulse Resp BP BP BP 08/23/23 08:00 08/23/23 08:00 65 08/23/23 07:25 08/23/23 07:20 70 20 08/23/23 07:20 70 20 08/23/23 06:57 36.4 C L 73 21 112/55 L 08/23/23 06:30 115/55 L 08/23/23 06:30 68 18 08/23/23 06:30 36.7 C 68 21 115/55 L 08/23/23 06:21 36.7 C 67 20 112/48 L 08/23/23 06:20 67 22 08/23/23 06:12 112/48 L 08/23/23 06:12 65 21 08/23/23 06:11 87/47 L 08/23/23 06:11 65 20 08/23/23 06:04 71/45 L 08/23/23 06:04 68 13 08/23/23 06:02 65 21 08/23/23 06:02 98/38 L 08/23/23 06:01 65 22 08/23/23 06:01 79/41 L 08/23/23 06:00 65 21 08/23/23 06:00 08/23/23 06:00 36.9 C 65 20 98/38 L 08/23/23 05:50 65 20 08/23/23 05:40 65 21 08/23/23 05:40 08/23/23 05:40 65 08/23/23 05:35 08/23/23 05:32 66 21 08/23/23 05:30 37 C 65 20 104/54 L 08/23/23 05:00 36.6 C 70 20 117/63 08/23/23 04:58 36.6 C 67 20 112/50 L 08/23/23 04:45 36.6 C 67 20 112/50 L 08/23/23 04:28 36.6 C 67 20 126/42 L 08/23/23 04:22 65 20 08/23/23 04:21 65 08/23/23 04:20 66 24 08/23/23 04:16 66 19 08/23/23 04:16 126/42 L 08/23/23 04:10 115/50 L 08/23/23 04:10 65 19 08/23/23 04:00 72 25 H 08/23/23 04:00 64 22 126/42 L 08/23/23 03:40 73 25 H 08/23/23 03:30 76 24 08/23/23 03:30 129/66 08/23/23 03:20 67 20 08/23/23 03:15 113/41 L 08/23/23 03:15 68 20 08/23/23 03:01 103/39 L 08/23/23 03:01 67 23 08/23/23 03:00 71 22 08/23/23 02:45 67 20 08/23/23 02:45 105/42 L 08/23/23 02:40 68 22 08/23/23 02:30 119/44 L 08/23/23 02:30 71 22 08/23/23 02:24 73 20 119/45 L 08/23/23 02:20 68 20 08/23/23 02:15 70 19 08/23/23 02:15 119/45 L 08/23/23 02:00 102/67 08/23/23 02:00 71 26 H 08/23/23 01:45 72 23 08/23/23 01:45 131/51 L 08/23/23 01:40 73 23 08/23/23 01:37 74 22 136/43 L 08/23/23 01:19 79 30 H 08/23/23 01:06 74 16 08/23/23 01:01 64 20 127/47 L 08/23/23 00:27 71 16 91/55 L 08/23/23 00:27 08/23/23 00:26 75 08/23/23 00:18 36.4 C L 73 16 107/52 L Pulse Ox Pulse Ox O2 Del Method O2 Del Method O2 Flow Rate FiO2 08/23/23 08:00 BiPAP 08/23/23 08:00 08/23/23 07:25 BiPAP 08/23/23 07:20 93 35 08/23/23 07:20 93 BiPAP 35 08/23/23 06:57 96 08/23/23 06:30 08/23/23 06:30 94 08/23/23 06:30 96 08/23/23 06:21 96 BiPAP 08/23/23 06:20 95 08/23/23 06:12 08/23/23 06:12 94 08/23/23 06:11 08/23/23 06:11 94 08/23/23 06:04 08/23/23 06:04 96 08/23/23 06:02 95 08/23/23 06:02 08/23/23 06:01 95 08/23/23 06:01 08/23/23 06:00 94 08/23/23 06:00 BiPAP 35 08/23/23 06:00 96 BiPAP 08/23/23 05:50 95 08/23/23 05:40 95 08/23/23 05:40 95 BiPAP 08/23/23 05:40 08/23/23 05:35 95 BiPAP 08/23/23 05:32 93 08/23/23 05:30 95 08/23/23 05:00 96 08/23/23 04:58 95 BiPAP 40 08/23/23 04:45 92 08/23/23 04:28 96 08/23/23 04:22 97 40 08/23/23 04:21 08/23/23 04:20 98 08/23/23 04:16 99 08/23/23 04:16 08/23/23 04:10 08/23/23 04:10 98 08/23/23 04:00 99 08/23/23 04:00 96 BiPAP 40 08/23/23 03:40 97 08/23/23 03:30 100 08/23/23 03:30 08/23/23 03:20 99 08/23/23 03:15 08/23/23 03:15 99 08/23/23 03:01 08/23/23 03:01 99 08/23/23 03:00 99 08/23/23 02:45 99 08/23/23 02:45 08/23/23 02:40 99 08/23/23 02:30 08/23/23 02:30 97 08/23/23 02:24 100 BiPAP 08/23/23 02:20 100 08/23/23 02:15 98 08/23/23 02:15 08/23/23 02:00 08/23/23 02:00 98 08/23/23 01:45 95 08/23/23 01:45 08/23/23 01:40 96 08/23/23 01:37 97 BiPAP 08/23/23 01:19 95 50 08/23/23 01:06 90 Nasal Cannula 6 08/23/23 01:01 96 Non-rebreather 08/23/23 00:27 92 Nasal Cannula 4 08/23/23 00:27 96 Nasal Cannula 6 08/23/23 00:26 08/23/23 00:18 96 Nasal Cannula 6 Laboratory Results 08/23/23 08:47 08/23/23 01:36 PG Care Time/CCT Total # of Minutes Spent Total Time Spent with Patient: Total time spent is greater than 50% in coordination of care (as documented) at patient's floor/unit and/or counseling patient: Coding Level of Care Code 62147 INT INP/OBS CARE 3/75MIN Diagnoses Acute on chronic respiratory failure with hypoxia and hypercapnia J96.21; J96.22 Atelectasis of left lung J98.11 Obesity E66.9 Mucoid impaction of bronchi T17.500A
[2023-08-23 09:15] LABS: Hematocrit (blood only) 22.3 % (37.0-47.0); Hemoglobin 7.1 g/dl (12.0-16.0)
[2023-08-23] MEDS: LANTUS PER UNIT CHARGE SQ SCH (09:31)
[2023-08-23] MEDS ORDERED: STAT IV/IM STA (09:58)
[2023-08-23] MEDS ORDERED: STAT IV Infusion **Titration per Protocol STA (10:00)
--- NOTE | 2023-08-23 10:09 | Pre Anesthesia Assessment ---
Date of Service August 23, 2023 Pre Sedation Assessment Vital Signs Temp Pulse Pulse Resp BP BP BP 08/23/23 08:00 36.7 C 08/23/23 08:00 08/23/23 08:00 65 08/23/23 07:25 08/23/23 07:20 70 20 08/23/23 07:20 70 20 08/23/23 06:57 36.4 C L 73 21 112/55 L 08/23/23 06:30 115/55 L 08/23/23 06:30 68 18 08/23/23 06:30 36.7 C 68 21 115/55 L 08/23/23 06:21 36.7 C 67 20 112/48 L 08/23/23 06:20 67 22 08/23/23 06:12 112/48 L 08/23/23 06:12 65 21 08/23/23 06:11 87/47 L 08/23/23 06:11 65 20 08/23/23 06:04 71/45 L 08/23/23 06:04 68 13 08/23/23 06:02 65 21 08/23/23 06:02 98/38 L 08/23/23 06:01 65 22 08/23/23 06:01 79/41 L 08/23/23 06:00 65 21 08/23/23 06:00 08/23/23 06:00 36.9 C 65 20 98/38 L 08/23/23 05:50 65 20 08/23/23 05:40 65 08/23/23 05:40 08/23/23 05:40 65 08/23/23 05:35 08/23/23 05:32 66 21 08/23/23 05:30 37 C 65 20 104/54 L 08/23/23 05:00 36.6 C 70 20 117/63 08/23/23 04:58 36.6 C 67 20 112/50 L 08/23/23 04:45 36.6 C 67 20 112/50 L 08/23/23 04:28 36.6 C 67 20 126/42 L 08/23/23 04:22 65 20 08/23/23 04:21 65 08/23/23 04:20 66 24 08/23/23 04:16 66 19 08/23/23 04:16 126/42 L 08/23/23 04:10 115/50 L 08/23/23 04:10 65 19 08/23/23 04:00 72 25 H 08/23/23 04:00 64 22 126/42 L 08/23/23 03:40 73 25 H 08/23/23 03:30 76 24 08/23/23 03:30 129/66 08/23/23 03:20 67 20 08/23/23 03:15 113/41 L 08/23/23 03:15 68 20 08/23/23 03:01 103/39 L 08/23/23 03:01 67 23 08/23/23 03:00 71 22 08/23/23 02:45 67 20 08/23/23 02:45 105/42 L 08/23/23 02:40 68 22 08/23/23 02:30 119/44 L 08/23/23 02:30 71 22 08/23/23 02:24 73 20 119/45 L 08/23/23 02:20 68 20 08/23/23 02:15 70 19 08/23/23 02:15 119/45 L 08/23/23 02:00 102/67 08/23/23 02:00 71 26 H 08/23/23 01:45 72 23 08/23/23 01:45 131/51 L 08/23/23 01:40 73 23 08/23/23 01:37 74 22 136/43 L 08/23/23 01:19 79 30 H 08/23/23 01:06 74 16 08/23/23 01:01 64 20 127/47 L 08/23/23 00:27 71 16 91/55 L 08/23/23 00:27 08/23/23 00:26 75 08/23/23 00:18 36.4 C L 73 16 107/52 L Pulse Ox Pulse Ox O2 Del Method O2 Del Method O2 Flow Rate FiO2 08/23/23 08:00 08/23/23 08:00 BiPAP 08/23/23 08:00 08/23/23 07:25 BiPAP 08/23/23 07:20 93 35 08/23/23 07:20 93 BiPAP 35 08/23/23 06:57 96 08/23/23 06:30 08/23/23 06:30 94 08/23/23 06:30 96 08/23/23 06:21 96 BiPAP 08/23/23 06:20 95 08/23/23 06:12 08/23/23 06:12 94 08/23/23 06:11 08/23/23 06:11 94 08/23/23 06:04 08/23/23 06:04 96 08/23/23 06:02 95 08/23/23 06:02 08/23/23 06:01 95 08/23/23 06:01 08/23/23 06:00 94 08/23/23 06:00 BiPAP 35 08/23/23 06:00 96 BiPAP 08/23/23 05:50 95 08/23/23 05:40 95 08/23/23 05:40 95 BiPAP 08/23/23 05:40 08/23/23 05:35 95 BiPAP 08/23/23 05:32 93 08/23/23 05:30 95 08/23/23 05:00 96 08/23/23 04:58 95 BiPAP 40 08/23/23 04:45 92 08/23/23 04:28 96 08/23/23 04:22 97 40 08/23/23 04:21 08/23/23 04:20 98 08/23/23 04:16 99 08/23/23 04:16 08/23/23 04:10 08/23/23 04:10 98 08/23/23 04:00 99 08/23/23 04:00 96 BiPAP 40 08/23/23 03:40 97 08/23/23 03:30 100 08/23/23 03:30 08/23/23 03:20 99 08/23/23 03:15 08/23/23 03:15 99 08/23/23 03:01 08/23/23 03:01 99 08/23/23 03:00 99 08/23/23 02:45 99 08/23/23 02:45 08/23/23 02:40 99 08/23/23 02:30 08/23/23 02:30 97 08/23/23 02:24 100 BiPAP 08/23/23 02:20 100 08/23/23 02:15 98 08/23/23 02:15 08/23/23 02:00 02/22/24 02:00 98 08/23/23 01:45 95 08/23/23 01:45 08/23/23 01:40 96 08/23/23 01:37 97 BiPAP 08/23/23 01:19 95 50 08/23/23 01:06 90 Nasal Cannula 6 08/23/23 01:01 96 Non-rebreather 08/23/23 00:27 92 Nasal Cannula 4 08/23/23 00:27 96 Nasal Cannula 6 08/23/23 00:26 08/23/23 00:18 96 Nasal Cannula 6 Cardiovascular RRR, no murmur, no edema + S1 normal and + S2 normal Respiratory + respiratory effort normal, + tactile fremitus (left side) and + able to speak in complete sentences; no respiratory distress, no labored breathing, no retractions, no uses accessory muscles, no respiratory pattern abnormal, no nasal flaring and no stridor Pre-Sedation Airway Assessment Smoking Status: Former smoker Hx Sleep Apnea: Yes Hx Difficult Intubation: No Short, Thick Neck: No Thyromental Distance: > or= 3.5 Finger Breadths Oral Cavity: + WNL Mallampati Class: III ASA: ASA3 NPO Status Date of Last Intake of Fluids: 08/22/23 Date of Last Intake of Solid Food: 08/22/23 Procedure Planning Current Medications Reviewed: Yes Notes The planned sedation has been discussed with the patient. Informed Consent was obtained. I have identified the patient, determined the appropriateness of sedation and have assessed the patient immediately prior to the procedure. All medicine(s) and interventions are by my order. Patient is a DNI however she does want heroic efforts undertaken in event of cardiac arrest. While patient would not prefer bronchoscopy she understands that she is not able to mobilize her secretions and is at risk for further respiratory decompensation. She is agreeable with elective bronchoscopy with procedural sedation. She is n.p.o. for greater than 3 hours. Further discussion/explained to patient that a intubation would likely be temporary from being oversedated and not a permanent issue. Planning to use Precedex and ket amine for procedural sedation. Patient is agreeable with plan for bronchoscopy and sedation. Patient is agreeable with intubation should she become oversedated and experience respiratory failure knowing that this is a reversible and likely temporary condition.
[2023-08-23] MEDS: DexMEDEtomidine BOLUS FROM BAG IV ONE (10:14)
[2023-08-23] MEDS: KETAMINE HCL IV ONE (10:22)
[2023-08-23] MEDS: dexMEDEtomidine 200 MCG/50 ML BAG IV SCH (10:24)
[2023-08-23] MEDS: PLASMA-LYTE A 1,000 ML IV ONE (10:30)
--- NOTE | 2023-08-23 10:46 | Post Anesthesia Assessment ---
Date of Service August 23, 2023 Post Sedation Assessment Vital Signs Temp Pulse Pulse Resp BP BP BP 08/23/23 10:40 64 18 89/39 L 08/23/23 10:35 67 22 97/49 L 08/23/23 10:35 67 22 97/49 L 08/23/23 10:34 71 22 94/54 L 08/23/23 10:29 82 20 85/34 L 08/23/23 10:24 68 22 116/48 L 08/23/23 10:19 67 22 123/44 L 08/23/23 10:15 68 22 120/52 L 08/23/23 08:00 36.7 C 08/23/23 08:00 08/23/23 08:00 65 08/23/23 07:25 08/23/23 07:20 70 20 08/23/23 07:20 70 20 08/23/23 06:57 36.4 C L 73 21 112/55 L 08/23/23 06:30 115/55 L 08/23/23 06:30 68 18 08/23/23 06:30 36.7 C 68 21 115/55 L 08/23/23 06:21 36.7 C 67 20 112/48 L 08/23/23 06:20 67 22 08/23/23 06:12 112/48 L 08/23/23 06:12 65 21 08/23/23 06:11 87/47 L 08/23/23 06:11 65 20 08/23/23 06:04 71/45 L 08/23/23 06:04 68 13 08/23/23 06:02 65 21 08/23/23 06:02 98/38 L 08/23/23 06:01 65 22 08/23/23 06:01 79/41 L 08/23/23 06:00 65 21 08/23/23 06:00 08/23/23 06:00 36.9 C 65 20 98/38 L 08/23/23 05:50 65 20 08/23/23 05:40 65 08/23/23 05:40 08/23/23 05:40 65 08/23/23 05:35 08/23/23 05:32 66 21 08/23/23 05:30 37 C 65 20 104/54 L 08/23/23 05:00 36.6 C 70 20 117/63 08/23/23 04:58 36.6 C 67 20 112/50 L 08/23/23 04:45 36.6 C 67 20 112/50 L 08/23/23 04:28 36.6 C 67 20 126/42 L 08/23/23 04:22 65 20 08/23/23 04:21 65 08/23/23 04:20 66 24 08/23/23 04:16 66 19 08/23/23 04:16 126/42 L 08/23/23 04:10 115/50 L 08/23/23 04:10 65 19 08/23/23 04:00 72 25 H 08/23/23 04:00 64 22 126/42 L 08/23/23 03:40 73 25 H 08/23/23 03:30 76 24 08/23/23 03:30 129/66 08/23/23 03:20 67 20 08/23/23 03:15 113/41 L 08/23/23 03:15 68 20 08/23/23 03:01 103/39 L 08/23/23 03:01 67 23 08/23/23 03:00 71 22 08/23/23 02:45 67 20 08/23/23 02:45 105/42 L 08/23/23 02:40 68 22 08/23/23 02:30 119/44 L 08/23/23 02:30 71 22 08/23/23 02:24 73 20 119/45 L 08/23/23 02:20 68 20 08/23/23 02:15 70 19 08/23/23 02:15 119/45 L 08/23/23 02:00 102/67 08/23/23 02:00 71 26 H 08/23/23 01:45 72 23 08/23/23 01:45 131/51 L 08/23/23 01:40 73 23 08/23/23 01:37 74 22 136/43 L 08/23/23 01:19 79 30 H 08/23/23 01:06 74 16 08/23/23 01:01 64 20 127/47 L 08/23/23 00:27 71 16 91/55 L 08/23/23 00:27 08/23/23 00:26 75 08/23/23 00:18 36.4 C L 73 16 107/52 L Pulse Ox Pulse Ox O2 Del Method O2 Del Method O2 Flow Rate FiO2 08/23/23 10:40 98 BiPAP 35 08/23/23 10:35 100 BiPAP 08/23/23 10:35 100 BiPAP 08/23/23 10:34 100 BiPAP 08/23/23 10:29 100 BiPAP 08/23/23 10:24 100 BiPAP 08/23/23 10:19 100 BiPAP 08/23/23 10:15 100 BiPAP 100 08/23/23 08:00 08/23/23 08:00 BiPAP 08/23/23 08:00 08/23/23 07:25 BiPAP 08/23/23 07:20 93 35 08/23/23 07:20 93 BiPAP 35 08/23/23 06:57 96 08/23/23 06:30 08/23/23 06:30 94 08/23/23 06:30 96 08/23/23 06:21 96 BiPAP 08/23/23 06:20 95 08/23/23 06:12 08/23/23 06:12 94 08/23/23 06:11 08/23/23 06:11 94 08/23/23 06:04 08/23/23 06:04 96 08/23/23 06:02 95 08/23/23 06:02 08/23/23 06:01 95 08/23/23 06:01 08/23/23 06:00 94 08/23/23 06:00 BiPAP 35 08/23/23 06:00 96 BiPAP 08/23/23 05:50 95 08/23/23 05:40 95 08/23/23 05:40 95 BiPAP 08/23/23 05:40 08/23/23 05:35 95 BiPAP 08/23/23 05:32 93 08/23/23 05:30 95 08/23/23 05:00 96 08/23/23 04:58 95 BiPAP 40 08/23/23 04:45 92 08/23/23 04:28 96 08/23/23 04:22 97 40 08/23/23 04:21 08/23/23 04:20 98 08/23/23 04:16 99 08/23/23 04:16 08/23/23 04:10 08/23/23 04:10 98 08/23/23 04:00 99 08/23/23 04:00 96 BiPAP 40 08/23/23 03:40 97 08/23/23 03:30 100 08/23/23 03:30 08/23/23 03:20 99 08/23/23 03:15 08/23/23 03:15 99 08/23/23 03:01 08/23/23 03:01 99 08/23/23 03:00 99 08/23/23 02:45 99 08/23/23 02:45 08/23/23 02:40 99 08/23/23 02:30 08/23/23 02:30 97 08/23/23 02:24 100 BiPAP 08/23/23 02:20 100 08/23/23 02:15 98 08/23/23 02:15 08/23/23 02:00 08/23/23 02:00 98 08/23/23 01:45 95 08/23/23 01:45 08/23/23 01:40 96 08/23/23 01:37 97 BiPAP 08/23/23 01:19 95 50 08/23/23 01:06 90 Nasal Cannula 6 08/23/23 01:01 96 Non-rebreather 08/23/23 00:27 92 Nasal Cannula 4 08/23/23 00:27 96 Nasal Cannula 6 08/23/23 00:26 08/23/23 00:18 96 Nasal Cannula 6 Recovery Score Activity: Moves 2 extremities Respiration: Deep Breath/Cough Circulation: +/-20% PreAnes Value Consciousness: Arouseable (by name) Oxygen Saturation: O2 needed for >90% Post Anesthesia Score: 7 Discharge Sedation Level of Care: Higher Level of Care (Patient in ICU level of care and to remain in ICU level of care) Post Sedation Plan On clinical assessment, the patient appears to have tolerated the sedation without complications. Patient is recovering as anticipated. Patient will continue to be monitored by nursing and may be discharged when sedation discharge criteria are met per below protocol. Upon Completions of procedure up to 15 minutes continue every 5 minute vital signs and the P.A.R. score; then discharge to a Phase I or Fast Track to Phase II per the following guidelines: Procedural start time 1014 procedural end time 1035 total sedation time 21 minutes Patient received 25 mcg Precedex bolus then 0.2 mcg infusion also received 5 mg ketamine IV slow push x 1. Patient was able to follow commands through entire procedure [facility] Procedure Codes (Charges) Sedation/Anesthesia Procedure 1: Sedation/Anesthesia: 17797 Mod Sedation by the same physician;Init15 Min Child Age 5 & Up Procedure 2: Sedation/Anesthesia: 81342 Mod Sedation by the same physician; Ea [id number] Minutes (20 minutes total, 69240 with additional unit: [id number])
--- NOTE | 2023-08-23 10:50 | Procedure Note ---
Procedure Note Date of Service August 23, 2023 Note Procedure date: Noted above Procedure: fiberoptic bronchoscopy Pre-procedure indication: Left lower lung white out, acute hypoxic respiratory failure Post-procedure Diagnosis: same as above Prior to Procedure: Informed Consent: The risks, benefits, indications, potential complications, and alternatives were explained to the patient and informed consent obtained. Attending Staff: Ravindra Dang DO Resident/APC: Not applicable Skin Prep: Not applicable Anesthesia: Continuous infusion of Precedex and 5 mg ketamine IV x 1 The identity of the patient was confirmed and a bedside time out was performed. Description of Procedure: Fiberoptic bronchoscopy was performed via endotracheal tube. Bronchioalveolar lavage of the left lung field was performed. Findings included: Mild ecchymoses of the left vocal cord, significant mucoid impaction of the entire left lung field extending from the left main into all subsegmental lobes. These were irrigated and lavaged a BAL specimen of the left lung field was obtained Complications: None Specimens: Bronchial washings sent for culture and Gram stain, fungal elements, AFB stain and culture, cell count differential Estimated blood loss: Zero Coding CPT Codes Pulmonary/Thoracic - Pulmonary and Thoracic: 05940 Dx bronchoscopy/wash ([id number]) [facility] [place] Procedure Codes (Charges) Pulmonary/Thoracic Procedure 1: Pulmonary and Thoracic: 00014 Dx bronchoscopy/wash
[2023-08-23] MEDS: LANTUS PER UNIT CHARGE SC ONE (11:24)
[2023-08-23] MEDS: INSULIN ASPART PER UNIT CHARGE SC SCH ×2 (11:24→16:50)
[2023-08-23] MEDS: GABAPENTIN 300 MG CAP PO SCH (11:25)
[2023-08-23] MEDS: DOXYCYCLINE HYCLATE 100 MG CAP PO SCH (11:25)
[2023-08-23 12:21] LABS: Fluid Mono/Macrophage 7 %; Lymphocyte Body Fluid Man 19 %; Neutrophil Body Fluid Man 74 %
--- NOTE | 2023-08-23 12:53 | Electrocardiogram Report ---
Test Reason : Blood Pressure : / mmHG Vent. Rate : 080 BPM Atrial Rate : 080 BPM P-R Int : 214 ms QRS Dur : 144 ms QT Int : 466 ms P-R-T Axes : 114 117 010 degrees QTc Int : 537 ms Suspect arm lead reversal, interpretation assumes no reversal Sinus rhythm with 1st degree A-V block with occasional Premature atrial complexes Right bundle branch block Abnormal ECG When compared with ECG of 07-AUG-2023 11:19, Premature ventricular complexes are now Present Premature atrial complexes are now Present QT has lengthened Confirmed by Landon Malcolm ([id number]) on 08/23/2023 12:53:04 PM Referred By: REFERRED SELF Confirmed By:Michael Malcolm
[2023-08-23] MEDS ORDERED: Nursing to Pharmacy Communication SCH (13:30)
[2023-08-23] MEDS: HEPARIN SOD 5,000 UNIT/0.5 ML VIAL SQ SCH (14:18)
[2023-08-23] MEDS: ACETYLCYSTEINE 20% INHAL SOLN 4ML ***DISPENSED BY RESP. INH SCH (18:17)
--- OUTSIDE RECORDS SUMMARY | 2023-08-23 19:56 | External Medical Summary ---
Author Name Unknown Address Unknown Organization [id number]:LABORATORY [facility] [place] - [address] [place] [address] Laboratory Report Ordering Provider Test Date Status KATI PARKER 08/22/2023 05:55:00 Final Observation Date Value Abnormality Reference (Units ) Status Ferritin 08/22/2023 05:55:00 280 Above high normal 13 -150 (ng/mL) Final Postmenopausal women have hi gher ferritin levels than pre-menopausal women. The above reference interval is based on pre-menopausal women. Performing Location LABORATORY [facility] [place] - [address] [place] [address]
--- OUTSIDE RECORDS SUMMARY | 2023-08-23 19:56 | External Medical Summary ---
Author Name Unknown Address Unknown Organization K01:LABORATORY [facility] - [address] [place] [address] Laboratory Report Ordering Provider Test Date Status KATI PARKER 08/22/2023 05:55:00 Final Observation Date Value Abnormality Reference (Units ) Status Iron 08/22/2023 05:55:00 79 33-151 (ug /dL) Final Performing Location [facility]ATORY [facility] - [address] [place] [address]
--- OUTSIDE RECORDS SUMMARY | 2023-08-23 19:56 | External Medical Summary ---
Author Name Unknown Address Unknown Organization [id number]:LABORATORY [facility] [place] - [address] [place] [address] Laboratory Report Ordering Provider Test Date Status KATI PARKER 08/22/2023 05:55:00 Final Observation Date Value Abnormality Reference (Units ) Status Folic Acid 08/22/2023 05:55:00 >20.0 >4.5 (ng/ mL) Final Performing Location [facility]ATORY [facility] - [address] [place] [address]
--- OUTSIDE RECORDS SUMMARY | 2023-08-23 19:56 | External Medical Summary ---
Author Name Unknown Address Unknown Organization K0G:LABORATORY [facility] - [address] [place] [address] Laboratory Report Ordering Provider Test Date Status KATI PARKER 08/22/2023 05:55:00 Final Observation Date Value Abnormality Reference (Units ) Status BUN 08/22/2023 05:55:00 40 Above high normal 6-20 (mg/dL) Final Creatinine 08/22/2023 05:55:00 1.4 Above high normal 0.5-1.0 (mg/dL) Final Glomerular filtration rate/1.73 sq M.predicted [Volume Rate/Area] in Serum, Plasma or Blood by Creatinine-based formula (CKD-EPI) 08/22/2023 05:55:00 41 Below low normal >=60 (mL/min) Final eGFR is calculated based on the CKD-EPI 2020 equation SODIUM 08/22/2023 05:55:00 140 135-146 (m mol/L) Final Potassium 08/22/2023 05:55:00 4.6 3.5-5.1 (m mol/L) Final Cl 08/22/2023 05:55:00 98 98-107 (mm ol/L) Final CO2 08/22/2023 05:55:00 26 22-32 (mmo l/L) Final Anion gap 08/22/2023 05:55:00 16 Above high normal 7- 15 (mmol/L) Final Glucose 08/22/2023 05:55:00 144 Above high normal 70 -120 (mg/dL) Final Calcium 08/22/2023 05:55:00 9.6 8.4-10.2 ( mg/dL) Final [facility] [address] [place] [address]
--- OUTSIDE RECORDS SUMMARY | 2023-08-23 19:56 | External Medical Summary ---
Author Name Unknown Address Unknown Organization K01:LABORATORY [facility] [place] - [address] [place] [address] Laboratory Report Ordering Provider Test Date Status KATI PARKER 08/22/2023 05:55:00 Final Observation Date Value Abnormality Reference (Units ) Status Vitamin B12 08/22/2023 05:55:00 678 460-3094 (pg/mL) Final Performing Location LAB[facility]ATORY [facility] - [address] [place] [address]
--- OUTSIDE RECORDS SUMMARY | 2023-08-23 19:56 | External Medical Summary ---
Author Name Unknown Address Unknown Organization [facility] [address] [place] [address] Laboratory Report Ordering Provider Test Date Status KATI PARKER 08/22/2023 05:55:00 Final Observation Date Value Abnormality Reference (Units ) Status WBC, Total 08/22/2023 05:55:00 10.28 4.00-10.8 0 (K/uL) Final RBC 08/22/2023 05:55:00 2.05 3.85-5.15 (M/uL) Final Hemoglobin 08/22/2023 05:55:00 6.9 Below low normal 12 .0-15.3 (g/dL) Final HCT 08/22/2023 05:55:00 23.2 Below low normal 36. 0-45.2 (%) Final MCV 08/22/2023 05:55:00 113.2 81.5-97.5 (fL) Final MCH 08/22/2023 05:55:00 33.7 27.0-34.0 (pg) Final MCHC 08/22/2023 05:55:00 29.7 32.0-36.0 (g/dL) Final RDW 08/22/2023 05:55:00 15.2 11.5-15.5 (%) Final Platelets 08/22/2023 05:55:00 412 Above high normal 14 0-400 (K/uL) Final MPV 08/22/2023 05:55:00 9.4 6.6-11.1 ( fL) Final Performing Location [facility]ATORY [facility] - [address] [place] [address]
--- OUTSIDE RECORDS SUMMARY | 2023-08-23 19:56 | External Medical Summary | Summary of Care ---
Author Name Unknown Organization [facility] Address [address] [place] [address] Phone [phone] Care Team Providers Care Soap Drier Tender Name Role Phone Kristal Pham Primary Care Provider Reason for Visit * Reason Onset Date Comments Skilled Visit 08/22/2023 Complicated Acute Visit 08/22/2023 Encounter Details Date Type Department Care Team (Late st Contact Info) Description 08/22/2023 9:30 AM EST Snf Visit [facility], [address] [place] [address] Selena Poole PA-C [address] [place] [address] [place] [address] Upper GI bleed*; Iron deficiency anemia due to chronic blood loss; Other closed fracture of proximal end of right fibula with routine healing, subsequent encounter; Other closed fracture of distal end of right fibula with routine healing, subsequent encounter; COPD, severe (HCC); Chronic hypoxemic respiratory failure (HCC); Elevated serum creatinine Allergies Active Allergy Reactions Criticality Noted Date Comments Latex 01/24/2021 Wound Dressing Adhesive 01/24/2021 documented as of this encounter (statuses as of 08/22/2023) Medications Medication Sig Dispensed Refills Start Date End Date Status Acetaminophen 325 MG Oral Tablet (Tylenol) Take 2 Tabs by mouth every 4 hours as needed for Fever (Temp Greater than ) or Pain, Mild. 100 Tab 0 01/27/2021 Active Aspirin 81 MG Oral Tablet Chewable Take 1 Tab by mouth daily. with food. 100 Tab 0 01/27/2021 Active Cyanocobalamin 1000 MCG/ML Injection Solution (Cyanocobalamin) Inject 1,000 mcg as directed every 30 days. On 1st of the month 1 mL 0 01/27/2021 Active Magnesium Oxide (Elemental) 400 MG Oral Tablet Take 400 mg by mouth 2 times a day. 60 Tab 0 01/27/2021 Active Atorvastatin Calcium 80 MG Oral Tablet (Lipitor)Indications: Hyperlipidemia, unspecified hyperlipidemia type Take 1 Tab by mouth daily. 30 Tab 0 02/03/2021 Active Gabapentin 300 MG Oral Capsule (Neurontin)Indication s:DM type 2 with diabetic peripheral neuropathy (HCC) Take 1 Cap by mouth 3 times a day. 90 Cap 0 02/03/2021 Active SITagliptin Phosphate 100 MG Oral Tablet (Januvia)Indications: Hyperglycemia,DM type 2, not at goal (HCC),Type 2 diabetes mellitus with hemoglobin A1c goal of less than 8.0% (HCC) Take 1 Tab by mouth daily. 30 Tab 0 02/03/2021 Active metFORMIN HCl 500 MG Oral Tablet (Glucophage)Indicatio ns:Hyperglycemia,DM type 2, not at goal (HCC),Type 2 diabetes mellitus with hemoglobin A1c goal of less than 8.0% (HCC) Take 1 Tab by mouth 2 times a day with morning and evening meals. 60 Tab 0 02/03/2021 Active BD Pen Needle Micro U/F 32G X 6 MM (NOVOFINE 32G PEN NEEDLE)Indications:Hy perglycemia,DM type 2, not at goal (HCC),Type 2 diabetes mellitus with hemoglobin A1c goal of less than 8.0% (HCC) For use once daily with insulin pen dx E11.9 30 Each 0 02/03/2021 Active OneTouch UltraSoft LancetsIndications:Hy perglycemia,DM type 2, not at goal (HCC),Type 2 diabetes mellitus with hemoglobin A1c goal of less than 8.0% (HCC) Use as directed. Use up to four times a day as directed - E11.9 100 Each 0 02/03/2021 Active OneTouch Ultra Blue In Vitro Strip (Glucose Blood)Indications:Hyp erglycemia,DM type 2, not at goal (HCC),Type 2 diabetes mellitus with hemoglobin A1c goal of less than 8.0% (HCC) Use as directed. Use up to four times a day as directed E11.9 100 Strip 0 02/03/2021 Active OneTouch Verio w/Device KitIndications:Hyperg lycemia,DM type 2, not at goal ([facility]),Type 2 diabetes mellitus with hemoglobin A1c goal of less than 8.0% ([facility]) Use up to 4 times a day E11.9 1 Kit 0 02/03/2021 Active LORazepam 0.5 MG Oral Tablet (Ativan)Indications:A nxiety state Take 1 Tablet by mouth 2 times a day as needed for Anxiety. 30 Tablet 0 08/20/2023 Active Insulin Glargine Solostar 100 UNIT/ML Subcutaneous Solution Pen-injector (Lantus SoloStar) Inject 20 Units under the skin in the morning and 20 Units before bedtime. 0 08/21/2023 Active Potassium Chloride ER 10 MEQ Oral Capsule Extended Release Take 1 Capsule by mouth in the morning. 0 08/21/2023 Active Pantoprazole Sodium 40 MG Oral Tablet Delayed Release (Protonix) Take 1 Tablet by mouth in the morning and 1 Tablet in the evening. Do not crush, split or chew the tablet. 0 08/21/2023 Active QUEtiapine Fumarate 100 MG Oral Tablet (SEROquel) Take 1 Tablet by mouth at bedtime. 0 08/21/2023 Active Polyethylene Glycol 3350 17 GM/SCOOP Oral Powder (MiraLax) Take 17 g by mouth in the morning. Dissolve one heaping tablespoon in 8 ounces of water or juice.. 0 08/21/2023 Active Furosemide 20 MG Oral Tablet (Lasix) Take 1 Tablet by mouth in the morning. 0 08/21/2023 Active Lisinopril 5 MG Oral Tablet (Prinivil) Take 1 Tablet by mouth in the morning. 0 08/21/2023 Active Sennosides-Docusate Sodium 8.6-50 MG Oral Tablet (Senokot S) Take 1 Tablet by mouth in the morning and 1 Tablet before bedtime. 0 08/21/2023 Active Doxycycline Hyclate 100 MG Oral Capsule Take 1 Capsule by mouth in the morning and 1 Capsule before bedtime. Until gone.. 0 08/21/2023 Active Ipratropium-Albuterol 0.5-2.5 (3) MG/3ML Inhalation Solution (Duoneb) Inhale 3 mL via nebulizer every 6 hours as needed for Dyspnea. 0 08/21/2023 Active documented as of this encounter (statuses as of 08/22/2023) Active Problems Problem Noted Date Diagnosed Date Closed fracture of proximal end of right fibula with routine healing 08/21/2023 Closed fracture of distal en d of right fibula with routine healing 08/21/2023 Multiple closed fractures of ribs of right side 08/21/2023 Upper GI bleed 08/21/2023 Fracture of ramus of left pubis with routine hea ling 08/21/2023 Collapse of left lung 08/21/2023 Encounter for care related to vascular access po rt 08/21/2023 Moderate episode of recurrent major depressive d isorder 08/21/2023 Anxiety 08/21/2023 Iron deficiency anemia due to chronic blood loss 08/21/2023 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 01/27/2021 Right ventricular failure 01/27/2021 Injury of left brachial plexus 01/27/2021 Hyperglycemia 01/26/2021 DM type 2 with diabetic peripheral neuropathy DM type 2, not at goal 01/24/2021 Type 2 diabetes mellitus wit h hemoglobin A1c goal of less than 8.0% 01/24/2021 HTN, goal below 140/90 01/24/2021 COPD, severe 01/24/2021 Chronic hypoxemic respiratory failure 01/24/2021 Ventral hernia with obstruction and without gang ki 07/21/2011 documented as of this encounter (statuses as of 08/22/2023) Resolved Problems Problem Noted Date Diagnosed Date Resolved Date Partial small bowel obstruction 01/26/2021 08/21/2023 documented as of this encounter (statuses as of 08/22/2023) Social History Tobacco Use Types Packs/Day Years Used Date Smoking Tobacco: Former Cigarettes 2 50 0 07/02/1969 - 07/02/2019 Smokeless Tobacco: Never Alcohol Use Standard Drinks/Week Comments No 0 (1 standard drink = 0.6 oz pur e alcohol) Sex and Gender Information Value Date Recorded Sex Assigned at Not on file Gender Identity Not on file Sexual Orientation Not on file Job Start Date Occupation Industry Not on file Not on file Not on file documented as of this encounter Last Filed Vital Signs Vital Sign Reading Time Taken Comments Blood Pressure 118/62 08/22/2023 2:29 PM EST Pulse 77 08/22/2023 2:29 PM EST Temperature 36.5 C (97.7 F) 08/22/2023 2:29 PM ES T Respiratory Rate 20 08/22/2023 2:29 PM EST Oxygen Saturation 92% 08/22/2023 2:29 PM EST 4 lpm Inhaled Oxygen Concentration - - Weight - - Height - - Body Mass Index - - documented in this encounter Progress Notes * Selena Poole PA-C - 08/22/2023 2:22 PM EST Name: Traci ROMAN Date of : 1950 This note pertains to care provided at [facility]. Please see facility record for original note. This note is not to be edited or addended in [employer]. Editing or addending needs to occur in the facility's medical record. Chief Complaint Patient presents with Skilled Visit Complicated Acute Visit TRANSITION EVENT: Type: Skilled visit Date: August 22 Code Status: No Code SUBJECTIVE: Traci ROMAN is a 73 year old female HPI: medically complex short-term rehab pt with history of COPD, DM2, HTN, and other history as noted below, recently hospitalized with a fall (right distal and proximal fibula fracture, pelvic fracture, rib fractures), hospitalized complicated by acute respiratory failure with left lung collapse/mucus plugging, upper GI bleed, is seen today in follow up. Pt dropped O2 sats into 70s on 2 lpm overnight last night. Pt reports that she generally uses 4 lpmO2 at home. Hgb now dropped to 6.9. She follows chronically with hematology, generally gets monthly iron infusions (she missed her most recent infusion due to hospitalization). Staff continues to report dark stools, ot reports this has been going on for a long time, she did decline recent endoscopic workup forthis. Creatinine also trending up, had been largely less than 1.0 during her hospital stay. She admits to dyspnea, which she feels is at her baseline. She denies chest pain, body aches, headache, dizziness, cough. She denies RLE pain at present. 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 S42.301K Right ventricular failure ([facility]) I50.810 Injury of left brachial plexus S14.3XXA Closed fracture of proximal end of right fibula with routine healing S82.831D Closed fracture of distal end of right fibula with routine healing S82.831D Multiple closed fractures of ribs of right side S22.41XA Upper GI bleed K92.2 Fracture of ramus of left pubis with routine healing S32.592D Collapse of left lung J98.11 Encounter for care related to vascular access port Z45.2 Moderate episode of recurrent major depressive disorder ([facility]) F33.1 Anxiety F41.9 Iron deficiency anemia due to chronic blood loss D50.0 Review of patient's allergies indicates: Allergen Reactions Latex Wound Dressing Adhesive Medications: Pt's current medication list is maintained at [facility] and was reviewed at this visit. Review of Systems: Per HPI OBJECTIVE: BP 118/62 | Pulse 77 | Temp 36.5 C (97.7 F) | Resp 20 | SpO2 92% Comment: 4 lpm General: alert and sitting in wheelchair, talkative, pleasant, chronically ill appearing, pale, appears somewhat short of breath Head: Normocephalic Eye Exam: conjunctiva are pink and non-injected, sclera clear Oropharynx: lips, buccal mucosa, and tongue normal and mucous membranes are moist Heart: regular rate and rhythm Lungs: nasal O2 in place, somewhat dyspneic. Significantly decreased breath sounds throughout all lung rodgers. Abdomen: abdomen soft, non-tender, and distended and pendulous Extremities: cast RLE, no LLE edema Neuro Exam: alert & oriented x 3 with fluent speech Skin: pale, warm, dry Musculoskeletal: cast on RLE, deformity of bilateral upper extremities Results for orders placed or performed in visit on 08/22/23 BASIC METABOLIC PANEL Result Value Ref Range BUN 40 (H) 6 - 20 mg/dL Creatinine 1.4 (H) 0.5 - 1.0 mg/dL Estimated Glomerular Filtration Rate 41 (L) >=60 mL/min Sodium 140 135 - 146 mmol/L Potassium 4.6 3.5 - 5.1 mmol/L Chloride 98 98 - 107 mmol/L CO2 26 22 - 32 mmol/L Anion Gap 16 (H) 7 - 15 mmol/L Glucose 144 (H) 70 - 120 mg/dL Calcium 9.6 8.4 - 10.2 mg/dL CBC Result Value Ref Range WBC 10.28 4.00 - 10.80 K/uL RBC 2.05 3.85 - 5.15 M/uL HGB 6.9 (L) 12.0 - 15.3 g/dL HCT 23.2 (L) 36.0 - 45.2 % MCV 113.2 81.5 - 97.5 fL MCH 33.7 27.0 - 34.0 pg MCHC 29.7 32.0 - 36.0 g/dL RDW 15.2 11.5 - 15.5 % PLT 412 (H) 140 - 400 K/uL MPV 9.4 6.6 - 11.1 fL Results reviewed with patient ASSESSMENT/PLAN: prison chart (outside system) reviewed for vital signs, nursing notes, CODE STATUS, and most up to date medication list Discussed management with other clinician during the visit (facility RN) Upper GI bleed (Primary) Iron deficiency anemia due to chronic blood loss Profound anemia, worsening over the past several days with ongoing melena Working with hematology to coordinate transfusion for tomorrow Will arrange type and cross today, transfusion being scheduled for tomorrow (2 unit PRBC) Hold aspirin for now, continue protonix 40 mg twice daily Other closed fracture of proximal end of right fibula with routine healing, subsequent encounter Other closed fracture of distal end of right fibula with routine healing, subsequent encounter Non-weight bearing RLE PT and OT COPD, severe (HCC) Chronic hypoxemic respiratory failure (HCC) Ok to titrate O2 to 4 lpom if needed to maintain O2 sat 90-93% Elevated serum creatinine Suspect secondary to GI bleed/anemia Hold lisinopril BMP in 2 days [facility] Home Treatment Given: Lab Draw BMP and Other transfusion Follow up: 1-2 days and as needed for new/worsening sxs I spent a total of 64 minutes coordinating, documenting, and providing care for this patient excluding time spent in the performance of separately billed services or time spent by another provider/QHP. documented in this encounter Plan of Treatment Health Maintenance Due Date Last Done Comments DXA Scan 1950 Lipid Panel 1950 Depression Screening 1963 Albumin/Creatinine Ratio 1969 Alpha-1 Antitrypsin 1969 Diabetic Eye Exam 1969 Diabetic Foot Exam 1969 Hepatitis C Screening 1969 O2 ASSESSMENT COMPLETED IN PAST YEAR FOR COPD 1969 Mammogram 1991 Colonoscopy 1996 Fecal Occult Blood Test 1996 Sigmoidoscopy 1996 *COPD SEVERITY VERIFIED BY PFT 01/26/2021 Cologuard 10/24/2021 10/24/2018, 10/13/2018 Colorectal Cancer Screening 10/24/2021 *CXR OR CT FOR COPD EVER 05/25/2022 HbA1c 02/20/2024 08/22/2023, 09/25/2020 GFR 08/22/2024 08/22/2023, 0808/2022, 01/31/2023, Additional history exists DTaP,Tdap,and Td Vaccines (2 - Td or Tdap) 01/30/2033 01/30/2023 Zoster Vaccines Completed 02/10/2019, 01/30, 09/17/2018 Pneumococcal Vaccine: 65+ Years Completed 06/18/2020, 06/05/2018, 04/01/2013 LUNG CANCER SCREENING - USE SMARTSET [id number] Completed 01/30/2023 COVID-19 Vaccine Completed 04/13/2023, , 05/24/2021, Additional history exists Influenza Vaccine (FLU shot) Completed , 04/03/2022, 04/03/2022, Additional history exists GARDASIL-HPV IMMUNIZATION SERIES Aged Out No longer eligible based on patient's age to complete this topic Hepatitis B Aged Out No longer eligi ble based on patient's age to complete this topic MENINGOCOCCAL (MENACTRA/MENVEO) Aged Out No longer eligible based on patient's age to complete this topic documented as of this encounter Medical Devices Not on filedocumented as of this encounter Visit Diagnoses Diagnosis Upper GI bleed- Primary Hemorrhage of gastrointestinal tract, unspecified Iron deficiency anemia due to chronic blood loss Iron deficiency anemia secondary to blood loss (chronic) Other closed fracture of proximal end of right fibula with routine healing, subsequent encounter Other closed fracture of distal end of right fibula with routine healing, subsequent encounter COPD, severe (HCC) Chronic airway obstruction, not elsewhere classified Chronic hypoxemic respiratory failure (HCC) Chronic respiratory failure Elevated serum creatinine Other nonspecific findings on examination of blood documented in this encounter Care Teams Soap Drier Tender Relationship Specialty Start Date End Date Kristal Pham CRNP PCP - General Nurse Practitioner 01/24/21 documented as of this encounter"
--- OUTSIDE RECORDS SUMMARY | 2023-08-23 19:56 | External Medical Summary | Summary of Care ---
Author Name Unknown Organization [facility] Address [address] [place] [address] Phone [phone] Care Team Providers Care Childcare Attendant Name Role Phone Kristal Pham Primary Care Provider Encounter Details Date Type Department Care Team (Late st Contact Info) Description 08/20/2023 Telephone [facility] [address] [place] [address] Selena Poole PA-C [address] [place] [address] Allergies Active Allergy Reactions Criticality Noted Date Comments Latex 01/24/2021 Wound Dressing Adhesive 01/24/2021 documented as of this encounter (statuses as of 08/20/2023) Medications Medication Sig Dispensed Refills Start Date [...] a day. 60 Tab 0 01/27/2021 Active Vitamin D3 50 MCG (2000 UT) Oral Capsule Take 1 Cap by mouth daily. 30 Cap 0 01/27/2021 Active Atorvastatin Calcium 80 MG Oral Tablet (Lipitor)Indications:H yperlipidemia, unspecified hyperlipidemia type Take 1 Tab by mouth daily. 30 Tab 0 02/03/2021 Active Gabapentin 300 MG Oral Capsule (Neurontin)Indications :DM type 2 with diabetic peripheral neuropathy (HCC) Take 1 Cap by mouth 3 times a day. 90 Cap 0 02/03/2021 Active SITagliptin Phosphate 100 MG Oral Tablet (Januvia)Indications:H yperglycemia,DM type 2, not at goal (HCC),Type 2 diabetes mellitus with hemoglobin A1c goal of less than 8.0% (HCC) Take 1 Tab by mouth daily. 30 Tab 0 02/03/2021 Active Lantus SoloStar 100 UNIT/ML Subcutaneous Solution Pen-injector (Insulin Glargine)Indications:H yperglycemia,DM type 2, not at goal (HCC),Type 2 diabetes mellitus with hemoglobin A1c goal of less than 8.0% (HCC) Inject 25 Units under the skin daily. 3 Each 0 02/03/2021 Active metFORMIN HCl 500 MG Oral Tablet (Glucophage)Indication s:Hyperglycemia,DM type 2, not at goal (HCC),Type 2 diabetes mellitus with hemoglobin A1c goal of less than 8.0% (HCC) Take 1 Tab by mouth 2 times a day with morning and evening meals. 60 Tab 0 02/03/2021 Active Potassium Chloride Roxane ER 20 MEQ Oral Tablet Extended Release Take 1 Tab by mouth 2 times a day. 60 Tab 0 02/03/2021 Active QUEtiapine Fumarate 50 MG Oral Tablet (SEROquel) Take 1 Tab by mouth at bedtime. 30 Tab 0 02/03/2021 Active BD Pen Needle Micro U/F 32G X 6 MM (NOVOFINE 32G PEN NEEDLE)Indications:Hyp erglycemia,DM type 2, not at goal (HCC),Type 2 diabetes mellitus with hemoglobin A1c goal of less than 8.0% (HCC) For use once daily with insulin pen dx E11.9 30 Each 0 02/03/2021 Active OneTouch UltraSoft LancetsIndications:Hyp erglycemia,DM type 2, not at goal (HCC),Type 2 diabetes mellitus with hemoglobin A1c goal of less than 8.0% (HCC) Use as directed. Use up to four times a day as directed - E11.9 100 Each 0 02/03/2021 Active OneTouch Ultra Blue In Vitro Strip (Glucose Blood)Indications:Hype rglycemia,DM type 2, not at goal ([facility]),Type 2 diabetes mellitus with hemoglobin A1c goal of less than 8.0% ([facility]) Use as directed. Use up to four times a day as directed E11.9 100 Strip 0 02/03/2021 Active OneTouch Verio w/Device KitIndications:Hypergl ycemia,DM type 2, not at goal ([facility]),Type 2 diabetes mellitus with hemoglobin A1c goal of less than 8.0% ([facility]) Use up to 4 times a day E11.9 1 Kit 0 02/03/2021 Active LORazepam 0.5 MG Oral Tablet (Ativan)Indications:An xiety state Take 1 Tablet by mouth 2 times a day as needed for Anxiety. 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..] on file documented as of this encounter Miscellaneous Notes * Telephone Encounter - Selena Poole PA-C - 08/20/2023 3:37 PM EST New admit from [facility] sent with orders for lorazepam, no rx sent to pharmacy. Brief chart review - pt with toxic metabolic encephalopathy during inpt stay, all [facility] depressants discontinued, however discharged with lorazepam + quetiapine (though both documented last given 08/19/23). Will restart lorazepam at 0.5 mg twice daily as needed for anxiety. I have reviewed the patients controlled substance dispensing history in the Prescription Drug Monitoring Program in compliance with the [facility] regulations before prescribing a controlled substance. Last Tox Screen Results: No results found for this or any previous visit. Anxiety state (Primary) - LORazepam 0.5 MG Oral Tablet (Ativan); Take 1 Tablet by mouth 2 times a day as needed for Anxiety. documented in this encounter Plan of Treatment Health Maintenance Due Date Last Done Comments DXA Scan 1950 Lipid Panel 1950 Depression Screening 1963 Albumin/Creatinine Ratio 1969 Alpha-1 Antitrypsin 1969 Diabetic Eye Exam 1969 Diabetic Foot Exam 1969 Hepatitis C Screening 1969 O2 ASSESSMENT COMPLETED IN PAST YEAR FOR COPD 1969 DTaP,Tdap,and Td Vaccines (1 - Tdap) 1970 Mammogram 1991 Cologuard 1996 Colonoscopy 1996 Colorectal Cancer Screening 1996 Fecal Occult Blood Test 1996 Sigmoidoscopy 1996 LUNG CANCER SCREENING - USE SMARTSET 64035 2001 *COPD SEVERITY VERIFIED BY PFT 01/26/2021 HbA1c 03/28/2021 09/25/2020 *CXR OR CT FOR COPD EVER 05/25/2022 GFR 06/18/2022 06/18/2021, 06/01, 05/16/2021, Additional history exists COVID-19 Vaccine ( season) 2023 05/24/2021, 09/21/2020, 08/31/2020 Influenza Vaccine (FLU shot) (#1) 2023 04/03/2022, 04/01/2013 Zoster Vaccines Completed 02/10/2019, 01/30, 09/17/2018 Pneumococcal Vaccine: 65+ Years Completed 06/18/2020, 06/05/2018, 04/01/2013 GARDASIL-HPV IMMUNIZATION SERIES Aged Out No longer [...] as of this encounter Visit Diagnoses Diagnosis Anxiety state- Primary Anxiety state, unspecified documented in this encounter Care Teams Childcare Attendant Relationship Specialty Start Date End Date Kristal Pham CRNP PCP - General Nurse Practitioner 01/24/21 documented as of this encounter
--- OUTSIDE RECORDS SUMMARY | 2023-08-23 19:56 | External Medical Summary | Summary of Care ---
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 Use up to four times a day as directed - E11.9 100 Each 0 02/03/2021 Active Augustine Temperature ManagementTouch Ultra Blue In Vitro Strip (Glucose Blood)Indications:Hyp erglycemia,DM type 2, not at goal (HCC),Type 2 diabetes mellitus with hemoglobin A1c goal of less than 8.0% (HCC) Use as directed. Use up to four times a day as directed E11.9 100 Strip 0 02/03/2021 Active Augustine Temperature ManagementTouch Verio w/Device KitIndications:Hyperg lycemia,DM type 2, not at goal (HCC),Type 2 diabetes mellitus with hemoglobin A1c goal of less than 8.0% (HCC) Use up to 4 times a day [...] on file documented as of this encounter Plan of Treatment Upcoming Encounters Date Type Department Care Team (Late st Contact Info) Description 08/22/2023 7:40 AM EST Laboratory Lab [facility] [address] [place] [address] [facility] [address] [place] [address] Pending Results Name Type Priority Associated Diagnoses Date /Time CBC Lab Routine Anemia 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) 08/22/2023 5:55 AM EST HEMOGLOBIN A1C Lab Routine Anemia 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) 08/22/2023 5:55 AM EST Scheduled Orders Name Type Priority Associated Diagnoses Orde r Schedule BASIC METABOLIC PANEL Lab Routine Anemia 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) Expected: 08/22/2023, Expires: 08/22/2024 CBC Lab Routine Anemia 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) Expected: 08/22/2023, Expires: 08/22/2024 FERRITIN Lab Routine Anemia 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) Expected: 08/22/2023, Expires: 08/22/2024 HEMOGLOBIN A1C Lab Routine Anemia 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) Expected: 08/22/2023, Expires: 08/22/2024 IRON Lab Routine Anemia 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) Expected: 08/22/2023, Expires: 08/22/2024 VITAMIN B12 Lab Routine Anemia 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) Expected: 08/22/2023, Expires: 08/22/2024 FOLIC ACID Lab Routine Anemia 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) Expected: 08/22/2023, Expires: 08/22/2024 Health Maintenance Due Date Last Done Comments [...] 1996 LUNG CANCER SCREENING - USE SMARTSET 94099 2001 *COPD SEVERITY VERIFIED BY PFT 01/26/2021 [...] as of this encounter Visit Diagnoses Diagnosis Anemia Anemia, unspecified 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
--- OUTSIDE RECORDS SUMMARY | 2023-08-23 19:56 | External Medical Summary | Summary of Care ---
Author Name Unknown Organization [facility] Address [address] [place] [address] Phone [phone] Care Team Providers Care Optimization Consultant Name Role Phone Kristal Pham Primary Care Provider Reason for Visit * Reason Onset Date Comments Residential Visit - Admission 08/21/2023 Encounter Details Date Type Department Care Team (Latest Contact Info) Description 08/21/2023 10:20 AM EST [place] [address] [place] [address] Todd Wells MD [address] [place] [address] [place] [phone] Other closed fracture of proximal end of right fibula with routine healing, subsequent encounter*; Other closed fracture of distal end of right fibula with routine healing, subsequent encounter; Upper GI bleed; Closed fracture of multiple ribs of right side with routine healing, subsequent encounter; Closed fracture of ramus of left pubis with routine healing, subsequent encounter; Collapse of left lung; Right ventricular failure (HCC); DM type 2, not at goal (HCC); COPD, severe (HCC); Chronic hypoxemic respiratory failure (HCC); 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, unspecified fracture morphology, subsequent encounter; Iron deficiency anemia due to chronic blood loss; Anxiety; Moderate episode of recurrent major depressive disorder (HCC); Encounter for care related to vascular access port Allergies Active Allergy Reactions Criticality Noted Date Comments Latex 01/24/2021 Wound Dressing Adhesive 01/24/2021 documented as of this encounter (statuses as of 08/21/2023) Medications Medication Sig Dispensed Refills Start Date [...] Active Atorvastatin Calcium 80 MG Oral Tablet (Lipitor)Indication s:Hyperlipidemia, unspecified hyperlipidemia type Take 1 Tab by mouth daily. 30 Tab 0 02/03/2021 Active Gabapentin 300 MG Oral Capsule (Neurontin)Indicati ons:DM type 2 with diabetic peripheral neuropathy (HCC) Take 1 Cap by mouth 3 times a day. 90 Cap 0 02/03/2021 Active SITagliptin Phosphate 100 MG Oral Tablet (Januvia)Indication s:Hyperglycemia,DM type 2, not at goal (HCC),Type 2 diabetes mellitus with hemoglobin A1c goal of less than 8.0% (HCC) Take 1 Tab by mouth daily. 30 Tab 0 02/03/2021 Active metFORMIN HCl 500 MG Oral Tablet (Glucophage)Indicat ions:Hyperglycemia, DM type 2, not at goal (HCC),Type 2 diabetes mellitus with hemoglobin A1c goal of less than 8.0% (HCC) Take 1 Tab by mouth 2 times a day with morning and evening meals. 60 Tab 0 02/03/2021 Active BD Pen Needle Micro U/F 32G X 6 MM (NOVOFINE 32G PEN NEEDLE)Indications: Hyperglycemia,DM type 2, not at goal (HCC),Type 2 diabetes mellitus with hemoglobin A1c goal of less than 8.0% (HCC) For use once daily with insulin pen dx E11.9 30 Each 0 02/03/2021 Active OneTouch UltraSoft LancetsIndications: Hyperglycemia,DM type 2, not at goal (HCC),Type 2 diabetes mellitus with hemoglobin A1c goal of less than 8.0% (HCC) Use as directed. Use up to four times a day as directed - E11.9 100 Each 0 02/03/2021 Active OneTouch Ultra Blue In Vitro Strip (Glucose Blood)Indications:H yperglycemia,DM type 2, not at goal ([facility]),Type 2 diabetes mellitus with hemoglobin A1c goal of less than 8.0% ([facility]) Use as directed. Use up to four times a day as directed E11.9 100 Strip 0 02/03/2021 Active OneTouch Verio w/Device KitIndications:Hype rglycemia,DM type 2, not at goal ([facility]),Type 2 diabetes mellitus with hemoglobin A1c goal of less than 8.0% ([facility]) Use up to 4 times a day E11.9 1 Kit 0 02/03/2021 Active LORazepam 0.5 MG Oral Tablet (Ativan)Indications :Anxiety state Take 1 Tablet by mouth 2 [...] before bedtime. Until gone.. 0 08/21/2023 Active Ipratropium-Albuter ol 0.5-2.5 (3) MG/3ML Inhalation Solution (Duoneb) Inhale 3 mL via nebulizer every 6 hours as needed for Dyspnea. 0 08/21/2023 Active Vitamin D3 50 MCG (2000 UT) Oral Capsule Take 1 Cap by mouth daily. 30 Cap 0 01/27/2021 08/21/19 24 Discontinued Lantus SoloStar 100 UNIT/ML Subcutaneous Solution Pen-injector (Insulin Glargine)Indication s:Hyperglycemia,DM type 2, not at goal ([facility]),Type 2 diabetes mellitus with hemoglobin A1c goal of less than 8.0% ([facility]) Inject 25 Units under the skin daily. 3 Each 0 02/03/2021 08/21/19 24 Discontinued Potassium Chloride Roxane ER 20 MEQ Oral Tablet Extended Release Take 1 Tab by mouth 2 times a day. 60 Tab 0 02/03/2021 08/21/19 24 Discontinued QUEtiapine Fumarate 50 MG Oral Tablet (SEROquel) Take 1 Tab by mouth at bedtime. 30 Tab 0 02/03/2021 08/21/19 24 Discontinued documented as of this encounter (statuses as of 08/21/2023) Active Problems Problem Noted Date Diagnosed Date [...] as of this encounter (statuses as of 08/21/2023) Resolved Problems Problem Noted Date Diagnosed Date Resolved Date Partial small bowel obstruction 01/26/2021 08/21/2023 documented as of this encounter (statuses as of 08/21/2023) Social History Tobacco Use Types Packs/Day Years [...] on file documented as of this encounter Progress Notes * Todd Wells MD - 08/21/2023 11:44 AM EST ADMISSION HISTORY and PHYSICAL TRANSITION EVENT: Type: SNF admission Date: August 20 Code Status: No Code Name: Traci ROMAN Date of : 1950 This note pertains to care provided at [facility]. Please see facility medical record for original note. This note is not to be edited or addended in [facility]. Editing or addending needs to occur in the facilities medical record. S: Traci ROMAN had been admitted to [facility] from [facility] for PT and OT. Recently admitted to [facility] on 08/07/23 because of fall with multiple right rib fractures, fracture of distal and proximal right fibula, left pubic ramus fracture, acute respiratory failure with left lung collapse/mucus plugging, and upper GI bleed and was transferred here and admitted on 08/20/2023. Patient of Dr. Sabeeh with PMH of severe COPD on chronic oxygen, morbid obesity, uncontrolled type 2 diabetes mellitus,right ventricular failure, depression, constipation, diabetic neuropathy, nonunion of right humerusfracture, brachial plexus injury, hypertension, anemia, anxiety who presented to the ED after a fall at home that occurred when she was trying to get out of bed. In the ED, she reported right leg pain. Her blood work was notable for a calcium of 10.8, phosphorus of 5.4. Respiratory Biofire was negative. CXR showed cardiomegaly with left greater than right mixed interstitial and alveolar opacitiessuggestive of pulmonary edema or multifocal pneumonia. She was found to have proximal fibular and distal fibular fractures on x-rays as well as multiple right sided rib fractures and left superior pubic ramus fractures. She was seen by orthopedics and a cast to the right lower extremity was applied. She is to be non-weight bearing to the RLE for at least 4 weeks until her next follow-up with orthopedics. Patient developed multiple complications, including "left lung white out" on chest x-ray. She was diagnosed with acute on chronic respiratory failure. She was seen by pulmonary and underwent several bronchoscopies while admitted for mucus plugging and collapse of the left lung. Patient declined further bronchoscopies when another was felt to be needed. She is on chronic oxygen. She was begun on daily Lasix for volume overload and right sided heart failure. Echo showed normal EF, mild aortic valve sclerosis, and elevated right ventricular systolic pressure. Patient developed melena and stools were heme positive. Lovenox was discontinued. She was seen by GI but she declined endoscopic evaluation and reported intermittent wing for some time. Hemoglobinremained stable per notes but dropped from 11.2 to 8.0. It was also noted that she get regular iron infusions. She was started on Protonix 40 mg twice daily. She had a tunneled venous access catheter placed on 08/17/23 by Casimiro Lara due to poor venous access. Blood sugars remained elevated. She was managed with basal bolus insulin. She was discharged on doxycycline, presumably for possible pneumonia given her lung findings. She was also started on magnesium and a bowel regimen including Miralax and Senna-docusate, Duonebs, and her lantus was changed to 20 units twice a day. She was noted to be confused but that it cleared. Patient is on Seroquel, which she states is prescribed by her PCP for depression and sleep. She also takes lorazepam as needed, which is filled monthly per the PDMP. Patient is now admitted for PT/OT. She plans to return home with her . Staff note that she has ongoing black stools. She was begun on Protonix 40 mg twice daily for the presumed upper GI bleed. She denies abdominal pain or change in appetite. She states her breathing is at baseline. She is NWB as above. 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 Potassium Chloride ER 10 MEQ Oral Capsule Extended Release Take 1 Capsule by mouth in the morning. Pantoprazole Sodium 40 MG Oral Tablet Delayed Release (Protonix) Take 1 Tablet by mouth in the morning and 1 Tablet in the evening. Do not crush, split or chew the tablet. QUEtiapine Fumarate 100 MG Oral Tablet (SEROquel) Take 1 Tablet by mouth at bedtime. Polyethylene Glycol 3350 17 GM/SCOOP Oral Powder (MiraLax) Take 17 g by mouth in the morning. Dissolve one heaping tablespoon in 8 ounces of water or juice.. Furosemide 20 MG Oral Tablet (Lasix) Take 1 Tablet by mouth in the morning. Lisinopril 5 MG Oral Tablet (Prinivil) Take 1 Tablet by mouth in the morning. Sennosides-Docusate Sodium 8.6-50 MG Oral Tablet (Senokot S) Take 1 Tablet by mouth in the morning and 1 Tablet before bedtime. Doxycycline Hyclate 100 MG Oral Capsule Take 1 Capsule by mouth in the morning and 1 Capsule beforebedtime. Until gone.. Ipratropium-Albuterol 0.5-2.5 (3) MG/3ML Inhalation Solution (Duoneb) Inhale 3 mL via nebulizer every 6 hours as needed for Dyspnea. Acetaminophen 325 MG Oral Tablet (Tylenol) Take 2 Tabs by mouth every 4 hours as needed for Fever (Temp Greater than ) or Pain, Mild. 100 Tab 0 Aspirin 81 MG Oral Tablet Chewable Take 1 Tab by mouth daily. with food. 100 Tab 0 Cyanocobalamin 1000 MCG/ML Injection Solution (Cyanocobalamin) Inject 1,000 mcg as directed every 30 days. On 1st of the month 1 mL 0 Magnesium Oxide (Elemental) 400 MG Oral Tablet Take 400 mg by mouth 2 times a day. 60 Tab 0 Atorvastatin Calcium 80 MG Oral Tablet (Lipitor) Take 1 Tab by mouth daily. 30 Tab 0 Gabapentin 300 MG Oral Capsule (Neurontin) Take 1 Cap by mouth 3 times a day. 90 Cap 0 SITagliptin Phosphate 100 MG Oral Tablet (Januvia) Take 1 Tab by mouth daily. 30 Tab 0 metFORMIN HCl 500 MG Oral Tablet (Glucophage) Take 1 Tab by mouth 2 times a day with morning and evening meals. 60 Tab 0 BD Pen Needle Micro U/F 32G X 6 MM (NOVOFINE 32G PEN NEEDLE) For use once daily with insulin pen dxE11.9 30 Each 0 I-WorksTouch UltraSoft Lancets Use as directed. Use up to four times a day as directed - E11.9 100 Each0 OneTouch Ultra Blue In Vitro Strip (Glucose Blood) Use as directed. Use up to four times a day as directed E11.9 100 Strip 0 OneTouch Verio w/Device Kit Use up to 4 times a day E11.9 1 Kit 0 LORazepam 0.5 MG Oral Tablet (Ativan) Take 1 Tablet by mouth 2 times a day as needed for Anxiety. 30 Tablet 0 No current facility-administered medications for this visit. Review of patient's allergies indicates: Allergen Reactions Latex Wound Dressing Adhesive Social History Tobacco Use Smoking status: Former Current packs/day: 0.00 Average packs/day: 2.0 packs/day for 50.0 years (100.0 ttl pk-yrs) Types: Cigarettes Start date: 07/02/1969 Quit date: 07/02/2019 Years since quittin.1 Smokeless tobacco: Never Substance Use Topics Alcohol use: No Vaping/E-Cigarette Use Vaping/E-Cigarette Substances Vaping/E-Cigarette Devices Past Surgical History: Procedure Laterality Date APPENDECTOMY W/OTHER PROCEDURE 1992 LAPAROSCOPY; CHOLECYSTECTOMY PROSTHETIC MAT/MESH, ABD, NECROTIC, REMOVAL 07/02/2006 REPAIR INITIAL INCISIONAL OR VENTRAL HERNIA; REDUCIBLE 07/02/2001 REPAIR RECURRENT INCISIONAL HERNIA 07/02/2003 REVERSE TOTAL SHOULDER ARTHROPLASTY Right x2 TOTAL ABD HYSTERECTOMY W/WO REMOVAL OF TUBE(S) 07/02/1992 Family History Problem Relation Age of Onset Diabetes Mother Family Status Relation Status Mo (Not Specified) Results for orders placed or performed in visit on 01/31/21 BASIC METABOLIC PANEL Result Value Ref Range BUN 20 6 - 20 mg/dL Creatinine 0.9 0.5 - 1.0 mg/dL Estimated Glomerular Filtration Rate 67.3 >=60.0 mL/min Sodium 139 135 - 146 mmol/L Potassium 4.4 3.5 - 5.1 mmol/L Chloride 98 98 - 107 mmol/L CO2 28 22 - 32 mmol/L Anion Gap 13 7 - 15 mmol/L Glucose 273 (H) 70 - 120 mg/dL Calcium 9.8 8.4 - 10.2 mg/dL MAGNESIUM Result Value Ref Range Magnesium 1.5 1.5 - 2.6 mg/dL Review of Systems: Constitutional ROS: No change in weight, No fevers, sweats, or chills, and Positive for weakness Eye ROS: No recent significant change in vision and No eye pain, redness, discharge Ear ROS: No ear pain, No drainage, No tinnitus or vertigo, and No recent change in hearing Nose ROS: No history of frequent colds or sinusitis, No nasal stuffiness, No history of Hay Fever, and No significant epistaxis Mouth/Throat ROS: No bleeding gums, No thrush, or No sore throat Pulmonary ROS: +as per HPI Cardiovascular ROS: No chest pain, No orthopnea, No paroxysmal nocturnal dyspnea, No palpitations, No syncope, and +right sided CHF Gastrointestinal ROS: No abdominal pain, No significant heartburn, No significant change in appetite, No hematemesis, No abdominal bloating or early satiety, No dysphagia, and +black, tarry stools and constipation Genito-Urinary Female ROS: No dysuria and No frequency Musculoskeletal/Extremities ROS: +as per HPI--multiple fractures Hematologic/Lymphatic ROS: No coagulation disorder, No chills, No bruising, and +anemia from chronic blood loss Skin/Integumentary ROS: No rash Neurologic ROS: No headaches and No seizures Endocrine ROS: +type 2 diabetes Psychiatric ROS: +anxiety and depression ADL skills: dependent Ambulates non-weight bearing to the right lower extremity OBJECTIVE: PHYSICAL EXAM: I reviewed the most recent facilities vitals. Refer to vital signs flowsheet in ch[facility] chart.General: alert, no distress, obese, and chronically ill appearing female Head: Normocephalic, No masses, lesions, tenderness or abnormalities Eye Exam: PERRLA, extraocular movements intact, conjunctiva are pink and non- injected, sclera clear Ears: External ears normal Nose: no mucosal erythema, no mucosal edema, no purulent discharge Oropharynx: no exudate, no erythema, lips, buccal mucosa, and tongue normal, and mucous membranes are moist Neck: supple, no adenopathy, no bruits Heart: regular rate & rhythm and no gallops Lungs: chest symmetric with normal AP diameter, no chest deformities noted, no chest wall tenderness, decreased breath sounds Abdomen: non-tender, obese, normal bowel sounds, and no masses or organomegaly Extremities: no clubbing, no cyanosis, +cast to RLE Neuro Exam: alert & oriented x 3 with fluent speech, no focal motor/sensory deficits ASSESSMENT: Other closed fracture of proximal end of right fibula with routine healing, subsequent encounter (Primary)--continue NWB and follow-up with orthopedics as directed. Other closed fracture of distal end of right fibula with routine healing, subsequent encounter--cast in place to RLE. Continue NWB and orthopedics follow-up. Upper GI bleed--declines scopes. Continue Protonix 40 mg twice daily and follow- up CBC. Closed fracture of multiple ribs of right side with routine healing, subsequent encounter--stable Closed fracture of ramus of left pubis with routine healing, subsequent encounter--continue PT/OT as above. Collapse of left lung--s/p multiple bronchoscopies with mucus plugging. Continue oxygen and Duonebs. Complete doxycycline as ordered. Right ventricular failure (HCC)--continue furosemide 20 mg daily and potassium supplement. DM type 2, not at goal (HCC)--continue Lantus 20 units BID and Januvia. Check A1C. COPD, severe (HCC)--continue oxygen and Duoneb. Chronic hypoxemic respiratory failure (HCC)--continue oxygen. 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 Iron deficiency anemia due to chronic blood loss--may need to return to hematology for iron infusions. Anxiety--continue lorazepam as needed. Consult Dr. Patel. Moderate episode of recurrent major depressive disorder (HCC)--consult Dr. Patel as above. Encounter for care related to vascular access port PLAN: 1. Continue present medication(s): Schedule labs: CBC, A1C, and BMP Consult Dr. Patel regarding depression and anxiety. 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 2. Admission orders, medications, labs, hospital records and care plan reviewed. 3. Former Hand consult, Physical Therapy, Occupational Therapy, and Speech Therapy ordered. 4. Care plan reviewed. 5. Advance Directives were discussed: The patient is a DNR 6. Group Home Home Treatment Given: Antibiotic Oral doxycycline Electronically signed by: Todd Wells MD I spent a total of 54 minutes coordinating, documenting, and providing care for [...] 1996 LUNG CANCER SCREENING - USE SMARTSET [id number] 2001 *COPD SEVERITY VERIFIED BY PFT 01/26/2021 [...] as of this encounter Visit Diagnoses Diagnosis Other closed fracture of proximal end of right fibula with routine healing, subsequent encounter- Primary Other closed fracture of distal end of right fibula with routine healing, subsequent encounter Upper GI bleed Hemorrhage of gastrointestinal tract, unspecified Closed fracture of multiple ribs of right side with routine healing, subsequent encounter Closed fracture of ramus of left pubis with routine healing, subsequent encounter Collapse of left lung Pulmonary collapse Right ventricular failure (HCC) Congestive heart failure, unspecified DM type 2, not at goal (HCC) Type II or unspecified type diabetes mellitus without mention of complication, not stated as uncontrolled COPD, severe (HCC) Chronic airway obstruction, not elsewhere classified Chronic hypoxemic respiratory failure (HCC) Chronic respiratory failure 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
--- OUTSIDE RECORDS SUMMARY | 2023-08-23 19:56 | External Medical Summary ---
Author Name Unknown Address Unknown Organization K01:LABORATORY [facility] - [address] [facility] [id number] Laboratory Report Ordering Provider Test Date Status KATI PARKER 08/22/2023 05:55:00 Final Observation Date Value Abnormality Reference (Units ) Status HbA1C 08/22/2023 05:55:00 6.3 Above high normal 4. 0-5.6 (%) Final The use of HbA1c to monitor glycemic status is based on normal hemoglobin and HbA composition. This test should not be used in patients with abnormal hemoglobin that affects the half life of the red blood cell or the in vivo glycation rates. Glucose, estimated average 08/22/2023 05:55:00 134 Above high normal <126 (mg/dL) Nithin borrero Performing Location LAB[facility]AT[facility] - [address] [facility] [id number]
[2023-08-23] MEDS: QUEtiapine FUMARATE 100 MG TABLET PO SCH (20:32)
[2023-08-23] MEDS: ATORVASTATIN 40 MG TAB PO SCH (20:33)
[2023-08-23] MEDS: ASPIRIN 81 MG ECTAB PO SCH (20:33)
[2023-08-23] MEDS: ACETAMINOPHEN 500 MG TAB PO PRN (20:36)
[2023-08-23] MEDS: LANTUS PER UNIT CHARGE SC SCH (20:51)
[2023-08-23] MEDS: MoRPHine SULFATE 2 MG/ML CARP IV STA ×3 (21:21→23:51)
[2023-08-23] MEDS: OLANZapine 10 MG/2.1 ML SDV IM STA ×2 (22:12→23:49)
[2023-08-24] MEDS: LORazepam 1 MG in SYRINGE 0.5 ML IV STA (01:00)
[2023-08-24 06:35] LABS: Basophils # (auto) 0.04 K/uL (0.00-0.20); Basophils % (auto) 0.5 %; Eosinophils % (auto) 2.6 %; Hematocrit (blood only) 22.9 % (37.0-47.0); Immature Granulocytes # (auto) 0.15 K/uL (0.01-0.20); Lymphocytes # (auto) 0.81 K/uL (1.20-3.40); Lymphocytes % (auto) 10.6 %; Mean Corpuscular Hgb Conc 30.6 g/dL (32.0-36.0); Mean Corpuscular Volume 104.6 fL (80.0-100.0); Mean Platelet Volume 9.3 fL (9.4-12.4); Monocytes # (auto) 0.76 K/uL (0.11-0.59); Monocytes % (auto) 9.9 %; Neutrophils # (auto) 5.69 K/uL (1.40-6.50); Neutrophils % (auto) 74.4 %; Nucleated RBC # (auto) 0.03 K/uL (0.00-0.12); Nucleated RBC % (auto) 0.4 %; Platelet Count 349 K/uL (130-400); RDW Coefficient of Variation 19.5 % (11.5-14.5); Red Blood Count 2.19 M/uL (4.20-5.40); White Blood Count 7.65 K/ul (4.8-10.8)
[2023-08-24 07:17] LABS: Anisocytosis Present; Polychromasia 1+
[2023-08-24 07:21] LABS: Albumin Globulin Ratio 1.1 (0.9-2); Albumin Level 3.2 gm/dl (3.4-5.0); BUN Creatinine Ratio 58.8 (10-20); Bilirubin,Total 0.5 mg/dl (0.2-1.0); Creatinine Clr Calc Pharmacy 56.3 ml/min; Est GFR (African American) 67.6 ml/min; Est GFR (Non-African American) 58.3 ml/min; Globulin 2.8 gm/dl (2.5-4.0); Potassium 4.3 mmol/L (3.5-5.1)
--- NOTE | 2023-08-24 07:36 | XRay Report ---
XR chest 1V portable CLINICAL HISTORY: eval lung rodgers COMPARISON STUDY: Chest radiograph August 23, 2023. FINDINGS: Right shoulder arthroplasty and left subclavian [id number] are in place. The tip of the left subclavian [id number] is unchanged in position. There is no pneumothorax. Interstitial thicke rubén within the right lung persists with hazy right basilar opacity. Complete opacification of the le ft lung is noted. This has mildly progressed. Left lung volume loss is again noted. Suspected small l eft pleural effusion. IMPRESSION: 1. Complete opacification of the left lung which has progressed since prior exam. Associated left uzair g volume loss. 2. Mild interstitial edema within the right lung. ACT 112: Negative or not required by law. Electronically signed by: Alan Sanches M.D. 08/24/2023 7:34 AM
--- NOTE | 2023-08-24 09:15 | Pulmonology Progress Note ---
Date of Service August 24, 2023 Assessment & Plan (1) Acute on chronic respiratory failure with hypoxia and hypercapnia: (2) Atelectasis of left lung: (3) Obesity: (4) Mucoid impaction of bronchi: Plan ABG 08/23/2022: 7.33/61/105 -- LEFT lung collapse Secondary to mucoid impaction s/p multiple bronchoscopies, last 1 being on 08/17/2023. Recommend to continue with aggressive chest PT. Again, continue with Mucinex, hypertonic saline, CoughAssist, and Mucomyst. BiPAP as needed. -- Acute on chronic respiratory failure with hypoxia and hypercapnia Likely secondary to noncompliance with BiPAP Hypoxia is most likely from underlying left lung collapse which is also almost chronic Respiratory bio fire negative for everything -- Morbid obesity Unfortunately this is negatively affecting the patient's respiratory status including her ventilatory function. Plan: Chest x-ray still shows persistent collapse of the left lung. She had had now 5 bronchoscopies in the last 10 days. I do not think doing any further bronchoscopies will be of any benefit and the patient does not use recommended regimen. Continue with nebulized N-acetylcysteine, nebulized hypertonic saline along with DuoNebs. Patient agreeable to use flutter valve, chest PT and CoughAssist Recommend keeping O2 saturation around 90-92%. Do not over oxygenate the patient Patient was on antibiotics prior to discharge. Would recommend to just continue and complete that course rather than starting new course of antibiotic Please note the above document was generated using voice recognition software. It may contain grammatical, syntax or spelling errors.Any formal questions or concerns about the content, text or information contained within the body of this dictation should be directly addressed to the provider for clarification. Admission and Anticipated Discharge Date Admission Date: August 23, 2023 Subjective Patient seen and examined at bedside. No acute distress, notable symptoms She was on BiPAP 15/5, 30% saturating 97%. She was getting tidal volumes around 500. She was sleeping. Patient's was in the room As per the patient did not sleep well at night. She is still not started to use the CoughAssist. Review of Systems 2 Review of Systems: All systems reviewed & are unremarkable except as noted in Subjective Physical Exam 2 Physical Exam: Constitutional: Respiratory distress HEENT: EOMI, PERRLA Respiratory system: Decreased air entry on the left side, no wheeze, no rhonchi, mild crackles bilaterally CVS: S1-S2 positive, no murmurs or gallops Abdomen: Soft, nontender, nondistended, positive bowel sounds x4, obese Extremities: +2 pulses bilaterally radialis/ dorsalis pedis, no cyanosis, +1 pitting edema left lower extremity, right lower extremity in splint Neuro: Sleeping Psych: Unable to assess G/U: Positive Deleon Skin: no rashes, warm and dry Lymphatic: no cervical or axillary lymphadenopathy Results & Data Results & Data Vital Signs (Past 12 Hours) Vital Signs Temp Pulse Pulse Resp BP BP Pulse Ox 08/24/23 07:54 63 21 94/47 L 99 08/24/23 07:16 66 21 99 08/24/23 06:00 70 21 100/40 L 100 08/24/23 02:54 36.7 C 68 22 100/46 L 96 08/24/23 02:37 70 20 96 08/24/23 02:36 70 20 96 08/24/23 00:00 89 08/23/23 23:58 103 H 31 H 95 08/23/23 23:56 99 H 31 H 95 08/23/23 22:00 80 26 H 100/78 93 08/23/23 21:30 O2 Del Method FiO2 08/24/23 07:54 BiPAP 08/24/23 07:16 BiPAP 30 08/24/23 06:00 CPAP 08/24/23 02:54 BiPAP 08/24/23 02:37 45 08/24/23 02:36 BiPAP 45 08/24/23 00:00 08/23/23 23:58 45 08/23/23 23:56 BiPAP 45 08/23/23 22:00 BiPAP 08/23/23 21:30 BiPAP Laboratory Results 08/24/23 06:05 08/24/23 06:05 PG Care Time/CCT Total # of Minutes Spent Total Time Spent with Patient: Total time spent is greater than 50% in coordination of care (as documented) at patient's floor/unit and/or counseling patient: Coding Level of Care Code 59612 SUB INP/OBS CARE 2/35MIN Diagnoses Acute on chronic respiratory failure with hypoxia and hypercapnia J96.21; J96.22 Atelectasis of left lung J98.11 Obesity E66.9 Mucoid impaction of bronchi T17.500A
--- NOTE | 2023-08-24 15:42 | Surgery Consultation ---
Date of Consultation August 24, 2023 Assessment & Plan (1) Poor venous access: Left chest Mediport site CDI open to air , pink around incisional area, No drainage noted. Lateral incisional area noted to have a dissolvable Monocryl clear suture poking through the skin. Area palpated, no fluctuance noted, no d rainage or purulent fluid noted with palpation, patient denies pain or discomfort in or around. Discussed case with acute care occupational therapist surgeon Dr. Amaral Recommendations: Do not access Mediport If drainage noted please swab and send culture Consult chha or anesthesia for possible IV/central line access Dr Melchor Amaral will be in to see patient this evening Supervising Physician Co-Signing Physician Notes Current situation was discussed with the patient pulmonary chha hospitalist and the family The Mediport the incision is healed there is no drainage appreciated in the incision I cannot specifically identify where this fluid repair material was coming from the port itself as above the incision and easily palpable there is no redness no tenderness the chest x-ray was reviewed the port itself may have pulled back a little by Dr. Kirkpatrick's note intraoperatively it was in the superior vena cava was retracted back and it may be in the redundant subclavian vein doubt that it is in the aorta doubt that is in the pleural space but apparently they were able to aspirate and flushed without any issue in the past At this point I feel we can try to get a peripheral IV I asked anesthesia to come up and I did then under ultrasound guidance they were able to get it an IV in the right antecubital space IV access at this time is mostly for antibiotic administration but long-term the patient gets a monthly injection of iron and that is the reason she wanted the port and now she is refusing further workup but she would like to continue receiving her monthly iron infusion We will reevaluate the port site tomorrow and make a decision whether or not to be removed and given the situation that her access is a very difficult situation we may try to salvage as if possible History of Present Illness Reason for Consultation: Evaluation of Mediport Attending Physician: Paul Parr History of Present Illness Patient is a 73 yo female with multiple comorbidities that was seen by general surgery on 08/17/23 during prior admission for placement of Mediport due to poor venous access. Unfortunately the patient was readmitted yesterday for hypoxia. IV team notes that they went to access the patients Mediport today and noted that her bandage was saturated and incisional site had purulent drainage. At that time they did not access port , and consulted general surgery for evaluation. Allergies Allergy/AdvReac Type Severity Reaction Status Date / Time latex Allergy Severe 2ND DEGREE Verified 08/23/23 01:52 BURN FROM BANDAGE adhesive Allergy Intermediate RASH Verified 08/23/23 01:52 Home Medications Medication Instructions Recorded Confirmed Type aspirin 81 mg tablet,delayed 81 mg PO HS 10/30/18 08/23/23 History release (Malcom Low Dose Aspirin) atorvastatin 80 mg tablet (Lipitor) 80 mg PO HS 10/30/18 08/23/23 History gabapentin 300 mg capsule 300 mg PO TID 10/30/18 08/23/23 History sitagliptin phosphate 100 mg 100 mg PO QPM 01/08/21 08/23/23 History tablet (Januvia) lisinopril 5 mg tablet 5 mg PO DAILY 12/13/21 08/23/23 History metformin 850 mg tablet 850 mg PO BID 12/13/21 08/23/23 History quetiapine 100 mg tablet 100 mg PO HS 12/13/21 08/23/23 History potassium chloride 10 mEq 10 meq PO DAILY 08/07/23 08/23/23 History tablet,extended release doxycycline hyclate 100 mg capsule 100 mg PO BID #20 caps 08/20/23 08/23/23 Rx insulin glargine 100 unit/mL 20 unit (0.2 mL) subcut BID #30 mL 08/20/23 08/23/23 Rx subcutaneous solution (Lantus U-100 Insulin) magnesium oxide 400 mg (241.3 mg 400 mg PO BID #20 tabs 08/20/23 08/23/23 Rx magnesium) tablet pantoprazole 40 mg tablet,delayed 40 mg PO BID #30 tabs 08/20/23 08/23/23 Rx release polyethylene glycol 3350 17 gram 17 g PO DAILY #14 ea 08/20/23 08/23/23 Rx oral powder packet (Miralax) sennosides 8.6 mg-docusate sodium 1 tab PO BID #60 tabs 08/20/23 08/23/23 Rx 50 mg tablet (Senokot-S) acetaminophen 325 mg tablet 650 mg PO Q4H PRN PAIN/FEVER=>100 08/23/23 08/23/23 History (Tylenol) docusate sodium 100 mg capsule 100 mg PO DAILY PRN Constipation 08/23/23 08/23/23 History (Colace) furosemide 20 mg tablet (Lasix) 20 mg PO DAILY 08/23/23 08/23/23 History ipratropium 0.5 mg-albuterol 3 mg 3 ml inhalation Q6H PRN Dyspnea 08/23/23 08/23/23 History (2.5 mg base)/3 mL nebulization soln lorazepam 0.5 mg tablet 0.5 mg PO BID PRN Anxiety 08/23/23 08/23/23 History mirtazapine 15 mg tablet (Remeron) 15 mg PO HS 08/23/23 08/23/23 History Patient History Medical History Advanced care planning/counseling discussion Palliative care by specialist Weakness generalized Cancer related pain Macrocytic anemia Shortness of breath Palliative care encounter Hyponatremia Complicated UTI (urinary tract infection) H/O defect LEFT ARM Diabetes mellitus, type 2 NIDDM Temporomandibular joint disorder NO PROBLEMS RECENTLY. Glaucoma WELL CONTROLLED Anxiety Depression Peripheral neuropathy BILATERAL FEET Hyperlipidemia Hypertension Chronic obstructive pulmonary disease Surgical History Port-A-Cath in place (08/17/23) Aport Insertion - Avery Kirkpatrick, DO S/P JALIL-BSO History of total shoulder replacement RIGHT History of incision and drainage UMBILICAL ABSCESS Hx of umbilical hernia repair X4 -- WEARS SUPPORT BAND DAILY History of colonoscopy History of cholecystectomy History of appendectomy S/P tonsillectomy and adenoidectomy Family History Mother Diabetes mellitus, type 2 Aunt Diabetes mellitus, type 2 Social History Smoking Status: Former smoker Tobacco Type: Cigarettes Cigarettes Per Day: quit 1 year ago; Second Hand Exposure: No; Do You Dip or Chew Tobacco: No; Tobacco Cessation Education Requested by Patient: No Hx Alcohol Use: No Hx Substance Use: No Preferred Language: Urdu Communication Ability: Effective Chief Operator Required: No Beliefs That Will Affect Care: None marital status: Current Living Situation: Residential current occupational status: retired Other Information That Helps Us Care for You: No Feels Safe at Home: Yes Safety Concerns: Feels Safe At This Time Assistive Devices: BiPap, Oxygen - Continuous, Walker and Wheelchair Assistive Devices Comment: right leg in hard cast Review of Systems Integumentary: post operative mediport site , patient denies pain or discomfort Physical Exam Physical Exam: alert Constitutional: comfortable; no acute distress Respiratory: normal respiratory effort and able to speak in complete sentences Cardiovascular: Rate/Rhythm: regular rate Skin: Left chest Mediport site CDI , pink around incisional area with end of Monocryl suture noted poking through skin. No drainage noted Results & Data Vital Signs (Past 12 Hours) Vital Signs Pulse Pulse Resp BP BP Pulse Ox O2 Del Method 08/24/23 12:59 BiPAP 08/24/23 11:56 67 20 123/75 94 BiPAP 08/24/23 11:14 65 21 94 BiPAP 08/24/23 11:14 65 23 94 08/24/23 07:54 63 21 94/47 L 99 BiPAP 08/24/23 07:16 66 21 99 BiPAP 08/24/23 06:00 70 21 100/40 L 100 CPAP FiO2 08/24/23 12:59 08/24/23 11:56 08/24/23 11:14 30 08/24/23 11:14 30 08/24/23 07:54 08/24/23 07:16 30 08/24/23 06:00 PG Care Time/CCT Total # of Minutes Spent Total Time Spent with Patient: Total time spent is greater than 50% in coordination of care (as documented) at patient's floor/unit and/or counseling patient: Coding Level of Care Code 31349 INT INP/OBS CARE 1/40MIN Diagnoses Poor venous access I87.8
--- NOTE | 2023-08-24 19:53 | Billing Data ---
Date of Service August 24, 2023 Coding Level of Care Code 97446 CRITICAL CARE
--- NOTE | 2023-08-24 21:59 | Hospitalist Progress Note ---
Date of Service August 24, 2023 Assessment & Plan (1) Acute respiratory failure: Plan: - Patient CXR on arrival in the [facility] with ABEL aeration and noted bronchograms- with BiPAP in place - She is currently on BiPAP, -Patient is now out of the ICU. -Patient had a bronchoscopy this is the 4ourth one in the past 10 days. Whatyis concerning is that she is not compliant with her bipap and cough assist which will ultimately lead to her downfall. However patient also requires transfusions for her anemia - Continue with hypertonic saline, cough assist, and BiPAP - Pulmonary consulted and patient transferred to the ICU - Completed Doxycyline on for pneumonia -will continue doxy and cefepime for now. On 08/24 there has been an issue with her aport which was showing some purulent drainage. consulted gen surgery peripheral line placed. also asked bundle helper for assistance, however, did not agree that a central line would be recomended given how invasive it is, and how futile her treatment is given that she is ultimately refusing bipap and cough assist. (2) Anemia: Plan: -Hemoglobin of 6.8 at time of admission. -Was supposed to get transfused tomorrow at [facility]. -Will transfuse 1 unit of blood at this time. Hemoglobin improved. (3) EYAD (acute kidney injury): Plan: -Will be getting 1 unit of blood. -Reevaluate need for fluids after unit of blood. (4) Advanced care planning/counseling discussion: Plan: -Did have palliative care discussion at previous admission. -Should consider further exploring option as patient is high risk for mortality during this hospitalization. (5) Acute on chronic diastolic CHF (congestive heart failure): Plan: -Does not appear to be in an acute exacerbation of her congestive heart failure. -Diuresis as needed. (6) Diabetes mellitus type 2, uncontrolled: Plan: -Transferred to the ICU, follow ICU protocol. Plan Nutrition: N.p.o. Code status: Conditional code, may need to reassess given differences between family and patient. DVT ppx: SCDs Consults: Tutorial Laboratory Supervisor, pulmonology Dispo: ICU Admission and Anticipated Discharge Date Admission Date: August 23, 2023 Subjective Patient reports she is willing to try everything. Her reports he does not want her to go to hospice because she requires intermittent blood transfusions which she would not get. Nurse reports patient has no IV ACCESS Review of Systems Review of Systems: All systems reviewed & are unremarkable except as noted in HPI & below Results & Data Results & Data Vital Signs (Past 12 Hours) Vital Signs Temp Pulse Pulse Resp BP Pulse Ox O2 Del Method 08/24/23 19:57 37.4 C 70 18 121/54 L 93 Nasal Cannula 08/24/23 19:12 64 18 94 Nasal Cannula 08/24/23 16:04 71 33 H 125/74 93 Nasal Cannula 08/24/23 15:31 66 20 96 Nasal Cannula 08/24/23 12:59 BiPAP 08/24/23 11:56 67 20 123/75 94 BiPAP 08/24/23 11:14 65 21 94 BiPAP 08/24/23 11:14 65 23 94 O2 Flow Rate FiO2 08/24/23 19:57 5 08/24/23 19:12 4 08/24/23 16:04 4 08/24/23 15:31 4 08/24/23 12:59 08/24/23 11:56 08/24/23 11:14 30 08/24/23 11:14 30 PG Care Time/CCT Total # of Minutes Spent Total Time Spent with Patient: Total time spent is greater than 50% in coordination of care (as documented) at patient's floor/unit and/or counseling patient: Coding Level of Care Code 66518 SUB INP/OBS CARE 3/50MIN Diagnoses Acute respiratory failure J96.00 Respiratory failure complication: unspecified whether with hypoxia or hypercapnia Anemia D64.9 EYAD (acute kidney injury) N17.9 Advanced care planning/counseling discussion Z71.89 Acute on chronic diastolic CHF (congestive heart failure) I50.33 Diabetes mellitus type 2, uncontrolled E11.65 Time Spent (min) 50 (1) Acute respiratory failure Respiratory failure complication: unspecified whether with hypoxia or hypercapnia Qualified Code(s): J96.00 - Acute respiratory failure, unspecified whether with hypoxia or hypercapnia
[2023-08-25 06:17] LABS: Hematocrit (blood only) 24.9 % (37.0-47.0); Hemoglobin 7.7 g/dl (12.0-16.0); Mean Corpuscular Hemoglobin 32.5 pg (25.0-34.0); Mean Corpuscular Hgb Conc 30.9 g/dL (32.0-36.0); Mean Corpuscular Volume 105.1 fL (80.0-100.0); Mean Platelet Volume 9.5 fL (9.4-12.4); Nucleated RBC # (auto) 0.04 K/uL (0.00-0.12); Nucleated RBC % (auto) 0.5 %; Platelet Count 337 K/uL (130-400); RDW Coefficient of Variation 19.2 % (11.5-14.5); RDW Standard Deviation 66.1 fL (36.4-46.3); Red Blood Count 2.37 M/uL (4.20-5.40)
[2023-08-25 06:38] LABS: Calcium 9.4 mg/dl (8.6-10.3); Potassium 4.7 mmol/L (3.5-5.1)
[2023-08-25 06:46] LABS: BUN Creatinine Ratio 57.6 (10-20); C Reactive Protein 2.2 mg/dl (0-0.5); Creatinine Clr Calc Pharmacy 82.9 ml/min; Est GFR (African American) 102.3 ml/min; Est GFR (Non-African American) 88.3 ml/min
--- NOTE | 2023-08-25 07:09 | XRay Report ---
SINGLE VIEW CHEST CLINICAL HISTORY: Dyspnea. FINDINGS: An AP, portable, upright chest radiograph is compared to study dated 08/24/2023 and correlat ed with chest CT dated 05/25/2022 The examination is degraded by portable technique and patient rotat ion. A left subclavian central venous infusion port is unchanged in position.The heart is enlarged no ting atherosclerotic calcification of the thoracic aorta. There is pulmonary vascular congestion. Aga in seen is near-complete opacification of the left hemithorax with atelectasis of the left lung and l eftward shift of the mediastinum. There is a small right pleural effusion. No pneumothorax is identif ied. The skeletal structures are osteopenic. There are healed left-sided rib fractures. A right shoul khoi arthroplasty is in place. Severe chronic deformity of the left proximal humerus/shoulder is uncha nged. IMPRESSION: 1. Near-complete opacification of the left hemithorax with atelectasis of the left lung has not signi ficantly changed from yesterday. 2. Cardiomegaly with pulmonary vascular congestion. 3. Small right pleural effusion with right basilar opacities. ACT 112: Negative or not required by law. Electronically signed by: Moi Coulter M.D. 08/25/2023 7:07 AM
--- NOTE | 2023-08-25 09:45 | Surgery Progress Note ---
Date of Service August 25, 2023 Assessment & Plan (1) Port-A-Cath in place: Plan: Patient seen with Dr. Amaral. She declined examination today and would no longer like our service to see her. Admission and Anticipated Discharge Date Admission Date: August 23, 2023 Supervising Physician Co-Signing Physician Notes left chest port site free of and cellulitis drainage or tenderness xray since insertion reviewed op report reviewed catheter was in superior vena cava at time of placement with good blood return, xray done post op noted catheter pulled back but still with good return not sure where drainage purulent in nature came from as noted by nursing staf a few days ago possible extravasation with infusion since pt has poor venous access i had planned to re-access the port and check for patency pt to day wanted us to leave her alone and asked us to leave please let us know if she changes her mind for now will sign off Subjective Patient seen at bedside with Dr. Amaral. She does not want to be seen any further from our services. Results & Data Vital Signs (Past 12 Hours) Vital Signs Temp Pulse Pulse Resp BP Pulse Ox O2 Del Method 08/25/23 07:15 36.7 C 71 20 122/66 95 High Flow Nasal Cannula 08/25/23 07:10 64 18 99 Nasal Cannula 08/25/23 02:51 36.6 C 72 21 118/61 95 High Flow Nasal Cannula 08/25/23 00:00 72 08/24/23 22:48 36.9 C 88 18 134/85 91 Nasal Cannula 08/24/23 22:31 75 18 92 Nasal Cannula O2 Flow Rate 08/25/23 07:15 4 08/25/23 07:10 6 08/25/23 02:51 4 08/25/23 00:00 08/24/23 22:48 5 08/24/23 22:31 4 PG Care Time/CCT Total # of Minutes Spent Total Time Spent with Patient: Total time spent is greater than 50% in coordination of care (as documented) at patient's floor/unit and/or counseling patient: Coding Level of Care Code None Diagnoses Port-A-Cath in place Z95.828
--- NOTE | 2023-08-25 10:58 | Pulmonology Progress Note ---
Date of Service August 25, 2023 Assessment & Plan (1) Acute on chronic respiratory failure with hypoxia and hypercapnia: (2) Atelectasis of left lung: (3) Obesity: (4) Mucoid impaction of bronchi: Plan ABG 08/23/2022: 7.33/61/105 -- LEFT lung collapse Secondary to mucoid impaction s/p multiple bronchoscopies, last 1 being on 08/17/2023. Recommend to continue with aggressive chest PT. Again, continue with Mucinex, hypertonic saline, CoughAssist, and Mucomyst. BiPAP as needed. -- Acute on chronic respiratory failure with hypoxia and hypercapnia Likely secondary to noncompliance with BiPAP Hypoxia is most likely from underlying left lung collapse which is also almost chronic Respiratory bio fire negative for everything -- Morbid obesity Unfortunately this is negatively affecting the patient's respiratory status including her ventilatory function. Plan: She had had now 4 bronchoscopies in the last 2 weeks. I do not think doing any further bronchoscopies will be of any benefit and the patient does not use recommended regimen. Patient again reiterated that she would not use BiPAP or CoughAssist device even if it means that the left lung will never open up. I think she has the capacity to make her decisions. Patient's was also in the room. Continue with nebulized N-acetylcysteine, nebulized hypertonic saline along with DuoNebs. Patient agreeable to use flutter valve, chest PT and CoughAssist Recommend keeping O2 saturation around 90-92%. Do not over oxygenate the patient Case was discussed with Dr. Parr and RN No further recommendation from pulmonary perspective, will sign off Please call directly with any questions Please note the above document was generated using voice recognition software. It may contain grammatical, syntax or spelling errors.Any formal questions or concerns about the content, text or information contained within the body of this dictation should be directly addressed to the provider for clarification. Admission and Anticipated Discharge Date Admission Date: August 23, 2023 Subjective Patient seen and examined at bedside. No acute distress, no adverse events overnight She was saturating 96% on 4 L nasal cannula, I went down to 2 L Patient was also in the room Patient was awake alert oriented. Answering all the questions appropriately She again refuses to use BiPAP and CoughAssist device. I again reiterated that if she does not use it her lung the left side was never opened up. She understands that she is asking to actually go back to where she came from. Review of Systems 2 Review of Systems: All systems reviewed & are unremarkable except as noted in Subjective Physical Exam 2 Physical Exam: Constitutional: Respiratory distress HEENT: EOMI, PERRLA Respiratory system: Decreased air entry on the left side, no wheeze, no rhonchi, mild crackles bilaterally CVS: S1-S2 positive, no murmurs or gallops Abdomen: Soft, nontender, nondistended, positive bowel sounds x4, obese Extremities: +2 pulses bilaterally radialis/ dorsalis pedis, no cyanosis, +1 pitting edema left lower extremity, right lower extremity in splint Neuro: Awake alert oriented to self and place Psych: Unable to assess G/U: Positive Deleon Skin: no rashes, warm and dry Lymphatic: no cervical or axillary lymphadenopathy Results & Data Results & Data Vital Signs (Past 12 Hours) Vital Signs Temp Pulse Pulse Resp BP Pulse Ox O2 Del Method 08/25/23 10:48 Nasal Cannula 08/25/23 07:15 36.7 C 71 20 122/66 95 High Flow Nasal Cannula 08/25/23 07:10 64 18 99 Nasal Cannula 08/25/23 02:51 36.6 C 72 21 118/61 95 High Flow Nasal Cannula 08/25/23 00:00 72 O2 Flow Rate 08/25/23 10:48 4 08/25/23 07:15 4 08/25/23 07:10 6 08/25/23 02:51 4 08/25/23 00:00 Laboratory Results 08/25/23 05:43 08/25/23 05:43 PG Care Time/CCT Total # of Minutes Spent Total Time Spent with Patient: Total time spent is greater than 50% in coordination of care (as documented) at patient's floor/unit and/or counseling patient: Coding Level of Care Code 88519 SUB INP/OBS CARE 2/35MIN Diagnoses Acute on chronic respiratory failure with hypoxia and hypercapnia J96.21; J96.22 Atelectasis of left lung J98.11 Obesity E66.9 Mucoid impaction of bronchi T17.500A
--- NOTE | 2023-08-25 22:00 | Hospitalist Progress Note ---
Date of Service August 25, 2023 Assessment & Plan (1) Acute respiratory failure: Plan: - Patient CXR on arrival in the EMD with ABEL aeration and noted bronchograms- with BiPAP in place - She is currently on BiPAP, -Patient is now out of the ICU. -Patient had a bronchoscopy this is the 4ourth one in the past 10 days. Whatyis concerning is that she is not compliant with her bipap and cough assist which will ultimately lead to her downfall. However patient also requires transfusions for her anemia - Continue with hypertonic saline, cough assist, and BiPAP - Pulmonary consulted and patient transferred to the ICU - Completed Doxycyline on for pneumonia -will continue doxy and cefepime for now. On 08/24 there has been an issue with her aport which was showing some purulent drainage. consulted gen surgery peripheral line placed. also asked automotive warranty administrator for assistance, however, did not agree that a central line would be recomended given how invasive it is, and how futile her treatment is given that she is ultimately refusing bipap and cough assist. On 08/25 Patient reports she does not want to be on hospice as she wants to have iron transfusions and blood transfusions if needed. She states she is not interested in investigating further her anemia, she dos not want an EGD or a colonoscopy. Patient reports she does not want a bronchoscopy nor intubation. (2) Anemia: Plan: -Hemoglobin of 6.8 at time of admission. -Was supposed to get transfused tomorrow at [facility]. -Will transfuse 1 unit of blood at this time. Hemoglobin improved. (3) EYAD (acute kidney injury): Plan: -Will be getting 1 unit of blood. -Reevaluate need for fluids after unit of blood. (4) Advanced care planning/counseling discussion: Plan: -Did have palliative care discussion at previous admission. -Should consider further exploring option as patient is high risk for mortality during this hospitalization. (5) Acute on chronic diastolic CHF (congestive heart failure): Plan: -Does not appear to be in an acute exacerbation of her congestive heart failure. -Diuresis as needed. (6) Diabetes mellitus type 2, uncontrolled: Plan: -Transferred to the ICU, follow ICU protocol. Plan Nutrition: N.p.o. Code status: Conditional code, may need to reassess given differences between family and patient. DVT ppx: SCDs Consults: Program Director/Air Personality, pulmonology Dispo: ICU Admission and Anticipated Discharge Date Admission Date: August 23, 2023 Subjective 73 yo female reports no new symptoms Patient reports she does not want to be on hospice as she wants to have iron tra nsfusions and blood transfusions if needed. She states she is not interested in investigating further her anemia, she dos not want an EGD or a colonoscopy. Patient reports she does not want a bronchoscopy nor intubation. Review of Systems Review of Systems: All systems reviewed & are unremarkable except as noted in HPI & below Physical Exam Physical Exam: Constitutional: Obese HEENT: NCAT, no conjunctival injection CV: regular rhythm, no murmur appreciated, extremities well-perfused, no LE edema Resp: Left lower lobe diminished breath sounds GI: soft, nondistended, nontender, BS normoactive MSK: Unable to assess, right lower extremity cast in place Skin: warm, dry, no rash appreciated Neuro: alert, oriented, no focal neurologic deficit appreciated Results & Data Results & Data Vital Signs (Past 12 Hours) Vital Signs Temp Pulse Resp BP Pulse Ox O2 Del Method O2 Flow Rate 08/25/23 20:25 71 24 91 Nasal Cannula 4 08/25/23 20:00 High Flow Nasal Cannula 4 08/25/23 19:33 36.9 C 72 18 105/60 92 Nasal Cannula 4 08/25/23 15:48 36.6 C 74 19 109/50 L 95 Nasal Cannula 2 08/25/23 15:03 79 20 94 Nasal Cannula 4 08/25/23 11:46 36.7 C 77 20 129/63 91 High Flow Nasal Cannula 2 08/25/23 10:56 66 20 94 Nasal Cannula 4 08/25/23 10:48 Nasal Cannula 4 PG Care Time/CCT Total # of Minutes Spent Total Time Spent with Patient: Total time spent is greater than 50% in coordination of care (as documented) at patient's floor/unit and/or counseling patient: Coding Level of Care Code 65615 SUB INP/OBS CARE 3/50MIN Diagnoses Acute respiratory failure J96.00 Respiratory failure complication: unspecified whether with hypoxia or hypercapnia Anemia D64.9 EYAD (acute kidney injury) N17.9 Advanced care planning/counseling discussion Z71.89 Acute on chronic diastolic CHF (congestive heart failure) I50.33 Diabetes mellitus type 2, uncontrolled E11.65 Time Spent (min) 50 (1) Acute respiratory failure Respiratory failure complication: unspecified whether with hypoxia or hypercapnia Qualified Code(s): J96.00 - Acute respiratory failure, unspecified whether with hypoxia or hypercapnia
[2023-08-26] MEDS: ACETAMINOPHEN 500 MG TAB PO STA (00:44)
[2023-08-26 05:53] LABS: Base Excess VBG 6.4 mEq/L; HCO3 VBG 34 mmol/L; Oxygen Saturation VBG < 60.0 %; PCO2 VBG 58 mmHg (38-50); PO2 VBG 35 mmHg; pH VBG 7.37 (7.36-7.41)
[2023-08-26 06:03] LABS: Hematocrit (blood only) 24.5 % (37.0-47.0); Hemoglobin 7.5 g/dl (12.0-16.0); Mean Corpuscular Hemoglobin 32.8 pg (25.0-34.0); Mean Corpuscular Hgb Conc 30.6 g/dL (32.0-36.0); Mean Platelet Volume 9.2 fL (9.4-12.4); Nucleated RBC # (auto) 0.18 K/uL (0.00-0.12); Platelet Count 369 K/uL (130-400); RDW Coefficient of Variation 19.7 % (11.5-14.5); RDW Standard Deviation 72.9 fL (36.4-46.3); Red Blood Count 2.29 M/uL (4.20-5.40)
[2023-08-26 06:22] LABS: BUN Creatinine Ratio 57.1 (10-20); Calcium 9.7 mg/dl (8.6-10.3); Creatinine Clr Calc Pharmacy 94.9 ml/min; Est GFR (Non-African American) 93.2 ml/min; Potassium 4.5 mmol/L (3.5-5.1)
--- NOTE | 2023-08-26 08:03 | XRay Report ---
XR chest 1V portable HISTORY: Dyspnea. eval lung rodgers COMPARISON: Chest 08/25/2023. FINDINGS: There is a right shoulder prosthesis. The left subclavian Port-A-Cath is unchanged in posit ion. Near-complete opacities in the left hemithorax with left mediastinal shift, unchanged. Mild abril estive change again noted within the right lung. Right basilar linear densities and a small right ple ural effusions persist. Suspect a left pleural effusion. No acute fractures. IMPRESSION: 1. No change compared to the prior study. 2. Near-complete opacification left hemithorax with left mediastinal shift again noted. This suggests atelectasis of the left lung. 3. Pulmonary vascular congestion and a small right pleural effusion persists. ACT 112: Negative or not required by law. Electronically signed by: Mauri Guzman M.D. 08/26/2023 8:01 AM
[2023-08-26] MEDS: IRON SUCROSE 200 MG in 0.9 % SODIUM CHLORIDE 100 ML IV ONE (15:42)
[2023-08-26] MEDS: MELATONIN 3 MG TAB PO PRN (22:39)
--- NOTE | 2023-08-26 22:53 | Hospitalist Progress Note ---
Date of Service August 26, 2023 Assessment & Plan (1) Acute respiratory failure: Plan: - Patient CXR on arrival in the EMD with ABEL aeration and noted bronchograms- with BiPAP in place - She is currently on BiPAP, -Patient is now out of the ICU. -Patient had a bronchoscopy this is the 4ourth one in the past 10 days. Whatyis concerning is that she is not compliant with her bipap and cough assist which will ultimately lead to her downfall. However patient also requires transfusions for her anemia - Continue with hypertonic saline, cough assist, and BiPAP - Pulmonary consulted and patient transferred to the ICU - Completed Doxycyline on for pneumonia -will continue doxy and cefepime for now. On 08/24 there has been an issue with her aport which was showing some purulent drainage. consulted gen surgery peripheral line placed. also asked enamel sprayer for assistance, however, did not agree that a central line would be recomended given how invasive it is, and how futile her treatment is given that she is ultimately refusing bipap and cough assist. On 08/25 Patient reports she does not want to be on hospice as she wants to have iron transfusions and blood transfusions if needed. She states she is not interested in investigating further her anemia, she dos not want an EGD or a colonoscopy. Patient reports she does not want a bronchoscopy nor intubation. On 08/26 partient is now agreeable for having a port reaccessed. also ordering venofer. (2) Anemia: Plan: -Hemoglobin of 6.8 at time of admission. -Was supposed to get transfused tomorrow at [facility]. -Will transfuse 1 unit of blood at this time. Hemoglobin improved. (3) EYAD (acute kidney injury): Plan: -Will be getting 1 unit of blood. -Reevaluate need for fluids after unit of blood. (4) Advanced care planning/counseling discussion: Plan: -Did have palliative care discussion at previous admission. -Should consider further exploring option as patient is high risk for mortality during this hospitalization. (5) Acute on chronic diastolic CHF (congestive heart failure): Plan: -Does not appear to be in an acute exacerbation of her congestive heart failure. -Diuresis as needed. (6) Diabetes mellitus type 2, uncontrolled: Plan: -Transferred to the ICU, follow ICU protocol. Plan Nutrition: N.p.o. Code status: Conditional code, may need to reassess given differences between family and patient. DVT ppx: SCDs Consults: Collection Card Clerk, pulmonology Dispo: ICU Admission and Anticipated Discharge Date Admission Date: August 23, 2023 Subjective Patient reports no new symptoms. Review of Systems Review of Systems: All systems reviewed & are unremarkable except as noted in HPI & below Physical Exam Physical Exam: Constitutional: Obese HEENT: NCAT, no conjunctival injection CV: regular rhythm, no murmur appreciated, extremities well-perfused, no LE edema Resp: Left lower lobe diminished breath sounds GI: soft, nondistended, nontender, BS normoactive MSK: Unable to assess, right lower extremity cast in place Skin: warm, dry, no rash appreciated Neuro: alert, oriented, no focal neurologic deficit appreciated Results & Data Results & Data Vital Signs (Past 12 Hours) Vital Signs Temp Pulse Resp BP Pulse Ox O2 Del Method O2 Flow Rate 08/26/23 19:46 75 18 94 Nasal Cannula 3 08/26/23 19:45 Nasal Cannula 5 08/26/23 19:00 36.8 C 80 16 101/57 L 91 Nasal Cannula 08/26/23 15:33 36.9 C 72 29 H 101/61 95 Nasal Cannula 2 08/26/23 14:24 75 20 95 Nasal Cannula 2 08/26/23 11:55 36.9 C 70 18 97/57 L 92 Nasal Cannula 3.0 08/26/23 11:01 82 16 91 Nasal Cannula 3 PG Care Time/CCT Total # of Minutes Spent Total Time Spent with Patient: Total time spent is greater than 50% in coordination of care (as documented) at patient's floor/unit and/or counseling patient: Coding Level of Care Code 77994 SUB INP/OBS CARE 2/35MIN Diagnoses Acute respiratory failure J96.00 Respiratory failure complication: unspecified whether with hypoxia or hypercapnia Anemia D64.9 EYAD (acute kidney injury) N17.9 Advanced care planning/counseling discussion Z71.89 Acute on chronic diastolic CHF (congestive heart failure) I50.33 Diabetes mellitus type 2, uncontrolled E11.65 (1) Acute respiratory failure Respiratory failure complication: unspecified whether with hypoxia or hypercapnia Qualified Code(s): J96.00 - Acute respiratory failure, unspecified whether with hypoxia or hypercapnia
[2023-08-27 07:25] LABS: Hematocrit (blood only) 23.7 % (37.0-47.0); Hemoglobin 7.1 g/dl (12.0-16.0); Mean Corpuscular Hemoglobin 32.7 pg (25.0-34.0); Mean Corpuscular Volume 109.2 fL (80.0-100.0); Mean Platelet Volume 9.1 fL (9.4-12.4); Nucleated RBC % (auto) 3.4 %; Platelet Count 371 K/uL (130-400); RDW Coefficient of Variation 20.1 % (11.5-14.5); RDW Standard Deviation 75.7 fL (36.4-46.3); Red Blood Count 2.17 M/uL (4.20-5.40); White Blood Count 8.84 K/ul (4.8-10.8)
[2023-08-27 07:43] LABS: BUN Creatinine Ratio 57.4 (10-20); C Reactive Protein 0.63 mg/dl (0-0.5); Calcium 10.2 mg/dl (8.6-10.3); Creatinine Clr Calc Pharmacy 115.4 ml/min; Est GFR (African American) 114.4 ml/min; Est GFR (Non-African American) 98.7 ml/min; Potassium 4.5 mmol/L (3.5-5.1)
[2023-08-27] MEDS: HEPARIN 100 UNIT/ML 5ML FLUSH FLUSH PRN (08:04)
--- NOTE | 2023-08-27 14:25 | Palliative Care Consultation ---
Date of Consultation August 27, 2023 Assessment & Plan (1) Dyspnea and respiratory abnormalities: COPD, CARLA, OHS, morbidly obese with acute on chronic hypercapnic, hypoxemic resp failure with recurrent mucus plugging and airway collapse. pt refuses to use BiPAP/NIV as ordered/advised and also refuses airway clearance therapies. +contributory neglect She has very poor insight and very limited understanding of her complex medical issues. (2) Weakness generalized: (3) Impaired insight: (4) Palliative care by specialist: Met with pt and re-reviewed that Palliative med provides specialized medical care for people living with a serious illness by offering a focus on quality of life. Palliative Medicine is often conflated with hospice: I advised patient/family that Palliative and hospice can be partners but we are not the same. It is important to understand the difference so that we may be informed, and not afraid. Palliative Medicine works to improve QOL through reduction of symptom burden/more control over their illness, for both the patient and family. Palliative medicine clinicians are board certified, specially-trained and another member of the patient's medical care team. We often provide an extra layer of support because our care is based on the needs of the patient, not the prognosis; as such, it's appropriate at any age/advancing stage of a serious illness and can be provided along with curative treatment. Palliative Medicine clinicians are also trained in advanced communication methodologies, to facilitate complex discussions about advanced illness planning, which are needed to help assure that the treatment choices match the patient's goals, aka de livering Goal Concordant care. Finally, we discussed that hospice is a visiting nurse service that focuses on care delivered at the very end of life for patients with terminal illness, with life expectancy less than 6 month. (5) Advanced care planning/counseling discussion: Met with Traci at bedside for 45min face to face ACP discussion With her consent and voluntary participation we discussed her clinical issues, recent admission and this re-admission less than a week after being dc from prior. She is easily off topic and sometimes rambles. She has trouble focusing on a complex topic and is confused about medical issues and does not perceive having lung issues, tells me she is here for broken leg. She does not want to use BiPAP, NIV, cough assist or ACT therapies. She is willing to go to rehab She does not want to change code status. We discussed that a week ago she was adamant to remain DNR/DNI. I asked her what had changed and she was not able to articulate a reason and then became angry, nearly shouting at me that "this is the way things are going to be because I said so!" (6) Acute on chronic respiratory failure with hypoxia and hypercapnia: Plan * Traci has a long standing history of non compliance and non adherence with medical recommendations; she is in a cycle of refusing resp airway therapies and ACT then having recurrent resp failure events leading to admission with escalating interventions. * +contributory neglect * Limited insight with poor understanding of the overall complexity of medical issues. Family also somewhat limited - during prior admission last week, pt wanted DNR/DNI and pursuit of comfort which family was adamantly opposed to but then with more discussion, said they would support her choices/wishes. * Today she does not want any changes to conditional code and states she will go to rehab but she is still refusing to nicole BiPAP, NIV etc. * Suggest a multidisciplinary meeting with pt, her family, care mgt, primary team and all relevant specialists to review the advanced, incurable and unfixable nature of he medical issues tom in setting of the limitations she places with refusal to comply with medical reccs for NIV, ACT etc. They will need a very simple, clear explanation that her problems are reaching end stages and there is no cure and her refusal to comply with medical reccs limits options further. * She identifies goal of wanting to eventually return home and be cared for by family. shared in last admission his back issues are significant and he cannot handle her physically in a way he feels is safe. During the 08/20/23 family meeting we discussed hospice at great length and at that time, pt and family were keen to pursue return home with hospice after rehab trial completed. * GOC identified and clarified as documented above. I will sign off but remain available to re engage for acute worsening and/or to assist with MDT dis cussion if desired. Will defer scheduling of MDT meeting to care mgt and primary team. Thank you for allowing us to participate in the ongoing care of this patient. Please don't hesitate to call or page with any additional concerns. Dr. Gabriela Peters DNP Director, Palliative Care History of Present Illness Reason for Consultation: "goals" Attending Physician: Paul Parr History of Present Illness Traci is a 73yo female admitted 08/23/23 with recurrent acute hypox resp failure. She is well known to me from prior recent admission, she was dc to SNF [facility]. During last week's admission there was concern for poss MDS PMH: cor pulmonale, NSTEMI, subdural hematoma, subarachnoid hemorrhage, compression fractures, uncontrolled type 2 diabetes mellitus, HFpEF, pressure ulcers, morbid obesity, HFpEF, chronic hypox respiratory failure (non-compliant with BiPAP and cough assist at home), HTN, Anemia She refuses, consistently, to use BiPAP, cough assist or NIV She is only willing to use nasal cannula She had a bronch last admission and states she will never have one again bu has had one this admission so far During the last admission, a family meeting held 08/20/23 outlined her DNR/DNI election with willingness to try rehab then return home with addition of hospice This seems to be completely forgotten today. While pt remembers me from prior visit and having spoken with me a week ago, she cannot report what we spoke about. She tells me she broke her leg and that is why she came to hospital but the leg was broken last admission and remains casted. She tells me then she came in for a fall but that was also last admission. She does not recall breathing issues. She states she will not wear BiPAP. She tells me she wants to go to rehab. She seems to be having more memory and cognition issues. A port a cath was placed and now she refuses to allow surgery team to follow up. She now wants to be a conditional code She cannot recall her resp issues leading to this readmission Pt seen bedside, no family present Allergies Allergy/AdvReac Type Severity Reaction Status Date / Time latex Allergy Severe 2ND DEGREE Verified 08/23/23 01:52 BURN FROM BANDAGE adhesive Allergy Intermediate RASH Verified 08/23/23 01:52 Home Medications Medication Instructions Recorded Confirmed Type aspirin 81 mg tablet,delayed 81 mg PO HS 10/30/18 08/23/23 History release (Malcom Low Dose Aspirin) atorvastatin 80 mg tablet (Lipitor) 80 mg PO HS 10/30/18 08/23/23 History gabapentin 300 mg capsule 300 mg PO TID 10/30/18 08/23/23 History sitagliptin phosphate 100 mg 100 mg PO QPM 01/08/21 08/23/23 History tablet (Januvia) lisinopril 5 mg tablet 5 mg PO DAILY 12/13/21 08/23/23 History metformin 850 mg tablet 850 mg PO BID 12/13/21 08/23/23 History quetiapine 100 mg tablet 100 mg PO HS 12/13/21 08/23/23 History potassium chloride 10 mEq 10 meq PO DAILY 08/07/23 08/23/23 History tablet,extended release doxycycline hyclate 100 mg capsule 100 mg PO BID #20 caps 08/20/23 08/23/23 Rx insulin glargine 100 unit/mL 20 unit (0.2 mL) subcut BID #30 mL 08/20/23 08/23/23 Rx subcutaneous solution (Lantus U-100 Insulin) magnesium oxide 400 mg (241.3 mg 400 mg PO BID #20 tabs 08/20/23 08/23/23 Rx magnesium) tablet pantoprazole 40 mg tablet,delayed 40 mg PO BID #30 tabs 08/20/23 08/23/23 Rx release polyethylene glycol 3350 17 gram 17 g PO DAILY #14 ea 08/20/23 08/23/23 Rx oral powder packet (Miralax) sennosides 8.6 mg-docusate sodium 1 tab PO BID #60 tabs 08/20/23 08/23/23 Rx 50 mg tablet (Senokot-S) acetaminophen 325 mg tablet 650 mg PO Q4H PRN PAIN/FEVER=>100 08/23/23 08/23/23 History (Tylenol) docusate sodium 100 mg capsule 100 mg PO DAILY PRN Constipation 08/23/23 08/23/23 History (Colace) furosemide 20 mg tablet (Lasix) 20 mg PO DAILY 08/23/23 08/23/23 History ipratropium 0.5 mg-albuterol 3 mg 3 ml inhalation Q6H PRN Dyspnea 08/23/23 08/23/23 History (2.5 mg base)/3 mL nebulization soln lorazepam 0.5 mg tablet 0.5 mg PO BID PRN Anxiety 08/23/23 08/23/23 History mirtazapine 15 mg tablet (Remeron) 15 mg PO HS 08/23/23 08/23/23 History Patient History Medical History (Updated 08/27/23 @ 15:20 by Gabriela Peters DNP) Impaired insight Dyspnea and respiratory abnormalities Advanced care planning/counseling discussion Palliative care by specialist Weakness generalized Cancer related pain Macrocytic anemia Shortness of breath Palliative care encounter Hyponatremia Complicated UTI (urinary tract infection) H/O defect LEFT ARM Diabetes mellitus, type 2 NIDDM Temporomandibular joint disorder NO PROBLEMS RECENTLY. Glaucoma WELL CONTROLLED Anxiety Depression Peripheral neuropathy BILATERAL FEET Hyperlipidemia Hypertension Chronic obstructive pulmonary disease Surgical History (Updated 08/25/23 @ 09:42 by Pamela Guzman PA-C) Port-A-Cath in place (08/17/23) Aport Insertion - Avery Kirkpatrick, S/P JALIL-BSO History of total shoulder replacement RIGHT History of incision and drainage UMBILICAL ABSCESS Hx of umbilical hernia repair X4 -- WEARS SUPPORT BAND DAILY History of colonoscopy History of cholecystectomy History of appendectomy S/P tonsillectomy and adenoidectomy Family History Mother Diabetes mellitus, type 2 Aunt Diabetes mellitus, type 2 Social History Smoking Status: Former smoker Tobacco Type: Cigarettes Cigarettes Per Day: quit 1 year ago; Second Hand Exposure: No; Do You Dip or Chew Tobacco: No; Tobacco Cessation Education Requested by Patient: No Hx Alcohol Use: No Hx Substance Use: No Preferred Language: Danish Communication Ability: Effective Call Center Associate Required: No Beliefs That Will Affect Care: None marital status: Current Living Situation: Long-Term current occupational status: retired Other Information That Helps Us Care for You: No Feels Safe at Home: Yes Safety Concerns: Feels Safe At This Time Assistive Devices: BiPap, Oxygen - Continuous, Walker and Wheelchair Assistive Devices Comment: right leg in hard cast Review of Systems Review of Systems: All systems reviewed & are unremarkable except as noted in Subjective and Unobtainable due to cognitive status Physical Exam Constitutional: + ill appearing and + morbidly obese Eyes: PERRL, conjunctivae normal, anicteric sclerae ENMT: Mouth: + poor dentition Throat: uvula midline Neck: normal visual inspection, trachea midline, + short neck and + thick neck Thyroid: normal thyroid Respiratory: + uses accessory muscles, able to speak in complete sentences and symmetric chest movement Auscultation: + diminished lung sounds and + rhonchi Cardiovascular: Rate/Rhythm: regular rate and regular rhythm Heart Sounds: normal S1 and normal S2 Gastrointestinal (Abdomen): Inspection/Auscultation: normal bowel sounds Percussion/Palpation: abdomen soft +pannus Musculoskeletal: gen weakness, RLE in cast, distal perfusion intact/no cyanosis Skin: oale, dry Neurologic: awake and alert to self and place, unsure of date Has trouble with 3 item recall, cannot spell world or perform serial 7s, recalls 1 of 3 items. cannot draw clock a set to 230pm. confounding , tangential and easily off track/confused agitated at times, will become frustrated if presented with information that contradicts her reporting ex: she believes she is currently admitted bc she fell and broke her leg but this was prior admission and current admission is for her persistent recurrent resp failure. Results & Data Vital Signs (Past 12 Hours) Vital Signs Temp Pulse Resp BP Pulse Ox O2 Del Method O2 Flow Rate 08/27/23 14:05 64 20 96 Nasal Cannula 2 08/27/23 11:44 36.9 C 80 19 105/64 97 High Flow Nasal Cannula 2 08/27/23 10:39 70 20 96 Nasal Cannula 2 08/27/23 08:48 Nasal Cannula 4 08/27/23 07:19 37.0 C 69 19 133/72 96 High Flow Nasal Cannula 2 08/27/23 07:02 76 18 96 Nasal Cannula 2 08/27/23 05:28 83 20 151/59 H 91 Nasal Cannula 2 Laboratory Results data reviewed Diagnostic Findings data reviewed PG Care Time/CCT Total # of Minutes Spent Total Time Spent with Patient: Total time spent is greater than 50% in coordination of care (as documented) at patient's floor/unit and/or counseling patient: I spent 105 minutes overall addressing this case: 10 min in medical data review/discussion with referring provider(s) and/or preparation for the visit 25 min in direct interaction with the patient/exam 45min in Advance Care Planning/Goals of Care discussions as detailed above in note (must be >16min) 10 min in subsequent review and synthesis of assessment and plan 15min communicating with other providers regarding the patient's case: primary team Advanced Care Planning 20525 Advanced Care Planning 30 Min 44843 Advanced Care Planning Additional 30 [place] [address] IN/OBS CONSULT LVL 4,60M Patient Type New History Comprehensive Exam Comprehensive Diagnoses Dyspnea and respiratory abnormalities R06.00; R06.89 Weakness generalized R53.1 Impaired insight R41.89 Palliative care by specialist Z51.5 Advanced care planning/counseling discussion Z71.89 Acute on chronic respiratory failure with hypoxia and hypercapnia J96.21; J96.22 Additional Codes Advanced Care Planning - 82267 Advanced Care Planning 30 Min: 79551 Advanced Care Planning 30 Min ([id number]) Advanced Care Planning - 52617 Advanced Care Planning Additional 30 Min: 89593 Advanced Care Planning Additional 30 Min ([id number])
--- NOTE | 2023-08-27 20:45 | Hospitalist Progress Note ---
Date of Service August 27, 2023 Assessment & Plan (1) Acute respiratory failure: Plan: - Patient CXR on arrival in the E[facility] with ABEL aeration and noted bronchograms- with BiPAP in place - She is currently on BiPAP, -Patient is now out of the ICU. -Patient had a bronchoscopy this is the 4ourth one in the past 10 days. Whatyis concerning is that she is not compliant with her bipap and cough assist which will ultimately lead to her downfall. However patient also requires transfusions for her anemia - Continue with hypertonic saline, cough assist, and BiPAP - Pulmonary consulted and patient transferred to the ICU - Completed Doxycyline on for pneumonia -will continue doxy and cefepime for now. On 08/24 there has been an issue with her aport which was showing some purulent drainage. consulted gen surgery peripheral line placed. also asked leather etcher for assistance, however, did not agree that a central line would be recomended given how invasive it is, and how futile her treatment is given that she is ultimately refusing bipap and cough assist. On 08/25 Patient reports she does not want to be on hospice as she wants to have iron transfusions and blood transfusions if needed. She states she is not interested in investigating further her anemia, she dos not want an EGD or a colonoscopy. Patient reports she does not want a bronchoscopy nor intubation. On 08/26 partient is now agreeable for having a port reaccessed. also ordering venofer. On 08/27 reviewed blood work. continue antibiotics as above. (2) Anemia: Plan: -Hemoglobin of 6.8 at time of admission. -Was supposed to get transfused tomorrow at [facility]. -Will transfuse 1 unit of blood at this time. Hemoglobin improved. (3) EYAD (acute kidney injury): Plan: -Will be getting 1 unit of blood. -Reevaluate need for fluids after unit of blood. (4) Advanced care planning/counseling discussion: Plan: -Did have palliative care discussion at previous admission. -Should consider further exploring option as patient is high risk for mortality during this hospitalization. (5) Acute on chronic diastolic CHF (congestive heart failure): Plan: -Does not appear to be in an acute exacerbation of her congestive heart failure. -Diuresis as needed. (6) Diabetes mellitus type 2, uncontrolled: Plan: -Transferred to the ICU, follow ICU protocol. Plan Code status: Conditional code, may need to reassess given differences between family and patient. DVT ppx: SCDs Consults: Termite Control Representative, pulmonology Dispo: ICU Admission and Anticipated Discharge Date Admission Date: August 23, 2023 Subjective Patient reports no new symptoms today/ Review of Systems Review of Systems: All systems reviewed & are unremarkable except as noted in HPI & below Physical Exam Physical Exam: Constitutional: Obese HEENT: NCAT, no conjunctival injection CV: regular rhythm, no murmur appreciated, extremities well-perfused, no LE edema Resp: Left lower lobe diminished breath sounds GI: soft, nondistended, nontender, BS normoactive MSK: Unable to assess, right lower extremity cast in place Skin: warm, dry, no rash appreciated Neuro: alert, oriented, no focal neurologic deficit appreciated Results & Data Results & Data Vital Signs (Past 12 Hours) Vital Signs Temp Pulse Resp BP Pulse Ox O2 Del Method O2 Flow Rate 08/27/23 19:33 36.9 C 77 22 110/73 100 Nasal Cannula 2 08/27/23 19:22 72 18 93 Nasal Cannula 3 08/27/23 15:44 36.9 C 78 19 100/55 L 97 High Flow Nasal Cannula 2 08/27/23 14:05 64 20 96 Nasal Cannula 2 08/27/23 11:44 36.9 C 80 19 105/64 97 High Flow Nasal Cannula 2 08/27/23 10:39 70 20 96 Nasal Cannula 2 08/27/23 08:48 Nasal Cannula 4 PG Care Time/CCT Total # of Minutes Spent Total Time Spent with Patient: Total time spent is greater than 50% in coordination of care (as documented) at patient's floor/unit and/or counseling patient: Coding Level of Care Code 03272 SUB INP/OBS CARE 2/35MIN Diagnoses Acute respiratory failure J96.00 Respiratory failure complication: unspecified whether with hypoxia or hypercapnia Anemia D64.9 EYAD (acute kidney injury) N17.9 Advanced care planning/counseling discussion Z71.89 Acute on chronic diastolic CHF (congestive heart failure) I50.33 Diabetes mellitus type 2, uncontrolled E11.65 (1) Acute respiratory failure Respiratory failure complication: unspecified whether with hypoxia or hypercapnia Qualified Code(s): J96.00 - Acute respiratory failure, unspecified whether with hypoxia or hypercapnia
--- NOTE | 2023-08-28 19:45 | Palliative Family Discussion ---
Date of Service August 28, 2023 Patient Directed Conference Time of Meetin-2860am Participants: Gabriela Peters DNP Patient participation: no/lacks capacity Patient Support System: daughter Raisa Other Healthcare Provider Participation: None Meeting Location: telephonic, at Raisa's request Advanced Directive available: NO A family meeting was held for ANABEL VACA. This meeting was necessary for determining the appropriate course of treatment. Topics of Discussion Topics of Discussion: 1. This family meeting is held with Raisa at her request based on overnight events/conversation with night nurse and patient's growing confusion. Raisa states they were told palliative care means giving up everything including her transfusions. While she recalls it was a provider who told them this, she cannot recall who it was. She states they had then decided "no palliative because she can't have her infusions and she can't see her doctors." I asked her if she recalled our prior family meeting one week ago where we had discussed all these options in detail. She replied that she did however it was after that meeting with me that another provider told them the above. I advised Raisa what she is describing is Hospice which is a visiting nurse service. I again provided a very clear and detailed overview of Palliative Medicine: a medicine specialty that provides specialized medical care for people living with a serious illness by offering a focus on quality of life. Palliative Medicine is often conflated with hospice: I advised Raisa that Palliative and hospice can be partners, just like hospice can partner with primary care, oncology, pulmonary etc., but like the other medicine specilaities, none of us are the the same as hospice. I encouraged her to review the PallMed brochure left for her in pt room to help further clarify how palliative med and hospice are not the same and I stressed that it is genuinely important to understand the difference so that we may be informed, and not afraid. I advised Raisa that Palliative Medicine works to improve QOL through reduction of symptom burden/more control over their illness, for both the patient and family. Palliative medicine clinicians are board certified, specially-trained and another member of the patient's medical care team. We often provide an extra layer of support because our care is based on the needs of the patient, not the prognosis; as such, it's appropriate at any age/advancing stage of a serious illness and can be provided along with curative treatment. Palliative Medicine clinicians are also trained in advanced commun ication methodologies, to facilitate complex discussions about advanced illness planning, which are needed to help assure that the treatment choices match the patient's goals, aka delivering Goal Concordant care. Finally, we discussed that hospice is a visiting nurse service that focuses on care delivered at the very end of life for patients with terminal illness, with life expectancy less than 6 month. 2. Raisa and I discussed patient's longstanding refusal of medical therapies and non compliance with PAP, NIV and ACT. We reviewed that her pattern has become one of stabilization in hospital using the interventions she refuses once feeling better followed by dc to settings where she resumes her non compliance and then eventually declines again to where re admission is needed. I advised Raisa I do not see a way out of this pattern without patient coming to accept the repercussions of her decisions and choices and determining where she wants to spend her time. 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 We spoke about how patient's lung failure is chronically progressive and recurrent admissions with persistent non compliance ultimately portends a poor outcome as well but when added to her MDS prognosis, I would not be surprised if she within the next 6-12mos. Raisa agreed and states that she does not feel patient has enamorado "fully grasping" everything being said and her cognition and memory has become more problematic in the past few months. 3. Raisa feels patient is going to need a snf and she hopes pt can eventually come home but she states they are trying to prepare themselves for likelihood that this pattern or [id number] will mean she likely will become too sick to return home as her needs cannot be safely met and her care has become too complex. It has been very difficult emotionally to witness and deal with pt refusing therapies, remaining non compliant and then also her lability with mood and anger/outbursts towards them which have intensified as her mental status became less stable. I advised Raisa we can review and try to reach consensus for ACP/GOC in serial outpatient clinic appointments and simultaneously work on symptom mgt needs for pt. Raisa was in agreement and extremely appreciative for this option. SHe asked about continuing infusion and I advised that would remain the decision of oncology and there is always a potential time where pt may become too sick for infusions to be tolerated or where they no longer offer any benefit. Other Content of Meetin. Opportunity given for participants to speak and ask questions. 2. Participants were assured of attention to patient comfort. 3. Reassurance provided. 4. Support was provided for informed, good-jayne decisions. 5. Emotions expressed by family were acknowledged and addressed. 6. Follow-up Outpatient: Raisa will call for outpatient appointment within 4 weeks of dc 7. Plan of Care: continue current plan, stabilize and continue therapies as she will allow. Pt is not decisional at this time and family remains SDMs. I will sign off as pt currently has urgent/highly acute inpatient pall med needs and wants to stay on current plan with dc to SNF for rehab. Family would like OP clinic follow up with me and have my contact info for same. TS 45 min 100% in ACP discussion with family member bc pt is not decisional. Thank you for allowing us to participate in the ongoing care of this patient. Please don't hesitate to call or page with any additional concerns. Dr. Gabriela Peters DNP Director, Palliative Care
--- NOTE | 2023-08-29 08:57 | Hospitalist Progress Note ---
Date of Service August 28, 2023 Assessment & Plan (1) Acute respiratory failure: Plan: - Patient CXR on arrival in the E[facility] with ABEL aeration and noted bronchograms- with BiPAP in place - She is currently on BiPAP, -Patient is now out of the ICU. -Patient had a bronchoscopy this is the 4ourth one in the past 10 days. Whatyis concerning is that she is not compliant with her bipap and cough assist which will ultimately lead to her downfall. However patient also requires transfusions for her anemia - Continue with hypertonic saline, cough assist, and BiPAP - Pulmonary consulted and patient transferred to the ICU - Completed Doxycyline on for pneumonia -will continue doxy and cefepime for now. On 08/24 there has been an issue with her aport which was showing some purulent drainage. consulted gen surgery peripheral line placed. also asked boat outfitting supervisor for assistance, however, did not agree that a central line would be recomended given how invasive it is, and how futile her treatment is given that she is ultimately refusing bipap and cough assist. On 08/25 Patient reports she does not want to be on hospice as she wants to have iron transfusions and blood transfusions if needed. She states she is not interested in investigating further her anemia, she dos not want an EGD or a colonoscopy. Patient reports she does not want a bronchoscopy nor intubation. On 08/26 partient is now agreeable for having a port reaccessed. also ordering venofer. On 08/27 reviewed blood work. continue antibiotics as above. On 08/28 Patient is non compliant with her Non invasive positve vertilatory device. She understands the risks of not using it. Patient reports no new symptoms. (2) Anemia: Plan: -Hemoglobin of 6.8 at time of admission. -Was supposed to get transfused tomorrow at [facility]. -Will transfuse 1 unit of blood at this time. Hemoglobin improved. (3) EYAD (acute kidney injury): Plan: -Will be getting 1 unit of blood. -Reevaluate need for fluids after unit of blood. (4) Advanced care planning/counseling discussion: Plan: -Did have palliative care discussion at previous admission. -Should consider further exploring option as patient is high risk for mortality during this hospitalization. (5) Acute on chronic diastolic CHF (congestive heart failure): Plan: -Does not appear to be in an acute exacerbation of her congestive heart failure. -Diuresis as needed. (6) Diabetes mellitus type 2, uncontrolled: Plan: monitoring blood sugars Plan Code status: Conditional code, may need to reassess given differences between family and patient. DVT ppx: SCDs Admission and Anticipated Discharge Date Admission Date: August 23, 2023 Subjective 73 yo female reports no new symptoms. Review of Systems Review of Systems: All systems reviewed & are unremarkable except as noted in HPI & below Physical Exam Physical Exam: Constitutional: Obese HEENT: NCAT, no conjunctival injection CV: regular rhythm, no murmur appreciated, extremities well-perfused, no LE edema Resp: Left lower lobe diminished breath sounds GI: soft, nondistended, nontender, BS normoactive MSK: Unable to assess, right lower extremity cast in place Skin: warm, dry, no rash appreciated Neuro: alert, oriented, no focal neurologic deficit appreciated Results & Data Results & Data Vital Signs (Past 12 Hours) Vital Signs Temp Pulse Pulse Resp BP Pulse Ox O2 Del Method 08/29/23 08:22 36.5 C 70 18 112/75 93 Nasal Cannula 08/29/23 08:00 Nasal Cannula 08/29/23 07:34 79 20 93 Nasal Cannula 08/29/23 05:54 36.9 C 83 16 140/59 L 92 Nasal Cannula 08/28/23 23:22 82 08/28/23 23:16 36.8 C 79 20 100/59 L 94 Nasal Cannula O2 Flow Rate 08/29/23 08:22 2 08/29/23 08:00 2 08/29/23 07:34 2 08/29/23 05:54 2 08/28/23 23:22 08/28/23 23:16 2.0 PG Care Time/CCT Total # of Minutes Spent Total Time Spent with Patient: Total time spent is greater than 50% in coordination of care (as documented) at patient's floor/unit and/or counseling patient: Coding Level of Care Code 52827 SUB INP/OBS CARE 2/35MIN Diagnoses Acute respiratory failure J96.00 Respiratory failure complication: unspecified whether with hypoxia or hypercapnia Anemia D64.9 EYAD (acute kidney injury) N17.9 Advanced care planning/counseling discussion Z71.89 Acute on chronic diastolic CHF (congestive heart failure) I50.33 Diabetes mellitus type 2, uncontrolled E11.65 (1) Acute respiratory failure Respiratory failure complication: unspecified whether with hypoxia or hypercapnia Qualified Code(s): J96.00 - Acute respiratory failure, unspecified whether with hypoxia or hypercapnia
--- NOTE | 2023-08-29 17:58 | Hospitalist Progress Note ---
Date of Service August 29, 2023 Assessment & Plan (1) Acute respiratory failure: Plan: - Patient CXR on arrival in the E[facility] with ABEL aeration and noted bronchograms- with BiPAP in place - She is currently on BiPAP, -Patient is now out of the ICU. -Patient had a bronchoscopy this is the 4ourth one in the past 10 days. Whatyis concerning is that she is not compliant with her bipap and cough assist which will ultimately lead to her downfall. However patient also requires transfusions for her anemia - Continue with hypertonic saline, cough assist, and BiPAP - Pulmonary consulted and patient transferred to the ICU - Completed Doxycyline on for pneumonia -will continue doxy and cefepime for now. On 08/24 there has been an issue with her aport which was showing some purulent drainage. consulted gen surgery peripheral line placed. also asked assisted living director for assistance, however, did not agree that a central line would be recomended given how invasive it is, and how futile her treatment is given that she is ultimately refusing bipap and cough assist. On 08/25 Patient reports she does not want to be on hospice as she wants to have iron transfusions and blood transfusions if needed. She states she is not interested in investigating further her anemia, she dos not want an EGD or a colonoscopy. Patient reports she does not want a bronchoscopy nor intubation. On 08/26 partient is now agreeable for having a port reaccessed. also ordering venofer. On 08/27 reviewed blood work. continue antibiotics as above. On 08/28 Patient is non compliant with her Non invasive positve vertilatory device. She understands the risks of not using it. Patient reports no new symptoms. On 08/29 Patient reports no new symptoms. Continues to be non compliant with NIPVD and does not want further workup with GI. (2) Anemia: Plan: -Hemoglobin of 6.8 at time of admission. -Was supposed to get transfused tomorrow at [facility]. -Will transfuse 1 unit of blood at this time. Hemoglobin improved. (3) EYAD (acute kidney injury): Plan: -Will be getting 1 unit of blood. -Reevaluate need for fluids after unit of blood. (4) Advanced care planning/counseling discussion: Plan: -Did have palliative care discussion at previous admission. -Should consider further exploring option as patient is high risk for mortality during this hospitalization. (5) Acute on chronic diastolic CHF (congestive heart failure): Plan: -Does not appear to be in an acute exacerbation of her congestive heart failure. -Diuresis as needed. (6) Diabetes mellitus type 2, uncontrolled: Plan: monitoring blood sugars Plan Code status: Conditional code, may need to reassess given differences between family and patient. DVT ppx: SCDs Admission and Anticipated Discharge Date Admission Date: August 23, 2023 Subjective 73 yo female reports no new symptoms. Review of Systems Review of Systems: All systems reviewed & are unremarkable except as noted in HPI & below Physical Exam Physical Exam: Constitutional: Obese HEENT: NCAT, no conjunctival injection CV: regular rhythm, no murmur appreciated, extremities well-perfused, no LE edema Resp: Left lower lobe diminished breath sounds GI: soft, nondistended, nontender, BS normoactive MSK: Unable to assess, right lower extremity cast in place Skin: warm, dry, no rash appreciated Neuro: alert, oriented, no focal neurologic deficit appreciated Results & Data Results & Data Vital Signs (Past 12 Hours) Vital Signs Temp Pulse Pulse Resp BP Pulse Ox O2 Del Method 08/29/23 17:44 70 08/29/23 16:54 37.0 C 76 24 109/48 L 94 Nasal Cannula 08/29/23 15:11 68 20 94 Nasal Cannula 08/29/23 11:30 79 18 95 Nasal Cannula 08/29/23 11:11 36.6 C 71 20 105/53 L 96 Nasal Cannula 08/29/23 08:56 70 08/29/23 08:22 36.5 C 70 18 112/75 93 Nasal Cannula 08/29/23 08:00 Nasal Cannula 08/29/23 07:34 79 20 93 Nasal Cannula O2 Flow Rate 08/29/23 17:44 08/29/23 16:54 2 08/29/23 15:11 2 08/29/23 11:30 2 08/29/23 11:11 2 08/29/23 08:56 08/29/23 08:22 2 08/29/23 08:00 2 08/29/23 07:34 2 PG Care Time/CCT Total # of Minutes Spent Total Time Spent with Patient: Total time spent is greater than 50% in coordination of care (as documented) at patient's floor/unit and/or counseling patient: Coding Level of Care Code 61184 SUB INP/OBS CARE MIN Diagnoses Acute respiratory failure J96.00 Respiratory failure complication: unspecified whether with hypoxia or hypercapnia Anemia D64.9 EYAD (acute kidney injury) N17.9 Advanced care planning/counseling discussion Z71.89 Acute on chronic diastolic CHF (congestive heart failure) I50.33 Diabetes mellitus type 2, uncontrolled E11.65 (1) Acute respiratory failure Respiratory failure complication: unspecified whether with hypoxia or hypercapnia Qualified Code(s): J96.00 - Acute respiratory failure, unspecified whether with hypoxia or hypercapnia
[2023-08-30 06:49] LABS: Base Excess VBG 4.6 mEq/L; HCO3 VBG 32 mmol/L; Oxygen Saturation VBG < 60.0 %; PCO2 VBG 56 mmHg (38-50); PO2 VBG 41 mmHg; pH VBG 7.36 (7.36-7.41)
[2023-08-30 07:13] LABS: Hematocrit (blood only) 22.5 % (37.0-47.0); Hemoglobin 6.7 g/dl (12.0-16.0); Mean Corpuscular Hemoglobin 33.8 pg (25.0-34.0); Mean Corpuscular Hgb Conc 29.8 g/dL (32.0-36.0); Mean Corpuscular Volume 113.6 fL (80.0-100.0); Mean Platelet Volume 9.3 fL (9.4-12.4); Nucleated RBC # (auto) 0.32 K/uL (0.00-0.12); Platelet Count 344 K/uL (130-400); RDW Coefficient of Variation 22.6 % (11.5-14.5); RDW Standard Deviation 87.2 fL (36.4-46.3); Red Blood Count 1.98 M/uL (4.20-5.40); White Blood Count 6.42 K/ul (4.8-10.8)
[2023-08-30 07:28] LABS: BUN Creatinine Ratio 48.1 (10-20); Calcium 9.5 mg/dl (8.6-10.3); Creatinine Clr Calc Pharmacy 103.3 ml/min; Est GFR (African American) 110.6 ml/min; Est GFR (Non-African American) 95.5 ml/min; Potassium 4.4 mmol/L (3.5-5.1)
[2023-08-30] MEDS ORDERED: SODIUM CHLORIDE 0.9% 250 ML IV PRN (07:41)
--- NOTE | 2023-08-30 22:54 | Hospitalist Progress Note ---
Date of Service August 30, 2023 Assessment & Plan (1) Acute respiratory failure: Plan: - Patient CXR on arrival in the [facility] with ABEL aeration and noted bronchograms- with BiPAP in place Patient is a readmission. Patient was supposed to be discharged on hopsice however, once noted that she was not to receive transfusions she opted that she did not want hospice. She returned for respiratory failure, her issue is that she has been largely noncompliant with her BIPAP. She initally used it when she was first admitted but for the past few days she has not been using it. -Patient had a bronchoscopy this is the fourth one in the past 10 days. Whatyis concerning is that she is not compliant with her bipap and cough assist which will ultimately lead to her downfall. Patient will complete doxycycline on Sunday. (2) Anemia: Plan: -Hemoglobin of 6.8 at time of admission. -Was supposed to get transfused tomorrow at [facility]. -Will transfuse 1 unit of blood at this time. Hemoglobin improved. Kirt has required intermittent transfusions during this hopsital stay including on As noted i previous notes, patient does not want frther workup from GI. (3) EYAD (acute kidney injury): Plan: -Will be getting 1 unit of blood. -Reevaluate need for fluids after unit of blood. (4) Advanced care planning/counseling discussion: Plan: -Did have palliative care discussion at previous admission. -Patient is now a conditional code, does not want hospice, awaiting placement, anticipate multiple readmissions in the future due to her noncompliance.. (5) Acute on chronic diastolic CHF (congestive heart failure): Plan: -Does not appear to be in an acute exacerbation of her congestive heart failure. -Diuresis as needed. (6) Diabetes mellitus type 2, uncontrolled: Plan: monitoring blood sugars Plan Non weight bearing on the right, folows with [facility] Code status: Conditional code, may need to reassess given differences between family and patient. DVT ppx: SCDs Admission and Anticipated Discharge Date Admission Date: August 23, 2023 Subjective Patient reports no new symptoms. Patient is not interested in further workup. Review of Systems Review of Systems: All systems reviewed & are unremarkable except as noted in HPI & below Physical Exam Physical Exam: Constitutional: Obese HEENT: NCAT, no conjunctival injection CV: regular rhythm, no murmur appreciated, extremities well-perfused, no LE edema Resp: Left lower lobe diminished breath sounds GI: soft, nondistended, nontender, BS normoactive MSK: Unable to assess, right lower extremity cast in place Skin: warm, dry, no rash appreciated Neuro: alert, oriented, no focal neurologic deficit appreciated Results & Data Results & Data Vital Signs (Past 12 Hours) Vital Signs Temp Pulse Pulse Resp BP BP BP 08/30/23 22:43 37.1 C 83 20 116/60 08/30/23 19:50 73 18 08/30/23 19:42 37.0 C 75 20 120/64 08/30/23 16:10 72 08/30/23 15:58 36.6 C 69 18 118/63 08/30/23 12:58 08/30/23 12:38 36.6 C 83 21 113/71 08/30/23 12:17 36.9 C 70 17 130/71 08/30/23 11:54 36.6 C 72 24 105/58 L 08/30/23 10:54 36.5 C 71 24 126/62 Pulse Ox O2 Del Method O2 Flow Rate 08/30/23 22:43 94 Nasal Cannula 2.0 08/30/23 19:50 94 Nasal Cannula 3 08/30/23 19:42 94 Nasal Cannula 2.5 08/30/23 16:10 98 Nasal Cannula 2 08/30/23 15:58 96 Nasal Cannula 2.0 08/30/23 12:58 Nasal Cannula 2 08/30/23 12:38 98 08/30/23 12:17 97 Nasal Cannula 2.5 08/30/23 11:54 97 2 08/30/23 10:54 96 2 PG Care Time/CCT Total # of Minutes Spent Total Time Spent with Patient: Total time spent is greater than 50% in coordination of care (as documented) at patient's floor/unit and/or counseling patient: Coding Level of Care Code 90614 SUB INP/OBS CARE 3/50MIN Diagnoses Acute respiratory failure J96.00 Respiratory failure complication: unspecified whether with hypoxia or hypercapnia Anemia D64.9 EYAD (acute kidney injury) N17.9 Advanced care planning/counseling discussion Z71.89 Acute on chronic diastolic CHF (congestive heart failure) I50.33 Diabetes mellitus type 2, uncontrolled E11.65 (1) Acute respiratory failure Respiratory failure complication: unspecified whether with hypoxia or hypercapnia Qualified Code(s): J96.00 - Acute respiratory failure, unspecified whether with hypoxia or hypercapnia
--- NOTE | 2023-08-31 07:35 | Hospitalist Progress Note ---
Date of Service August 31, 2023 Assessment & Plan (1) Acute respiratory failure: Plan: This is a readmission for acute on chronic respiratory failure with hypoxia and hypercapnia. At last discharge there was concern for transition to hospice but patient rescinded that request There is concern of noncompliance with BiPAP postdischarge. Previous admission patient had left lung collapse with mucoid impaction she has had multiple on hospice over the last month Patient will complete doxycycline for bronchitis on Sunday. 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 -Patient is now a conditional code, does not want hospice, awaiting placement, anticipate multiple readmissions in the future due to her noncompliance.. (5) Closed right fibular fracture: Plan: Patient is close right fibular fracture sustained somewhere around August 06 followed by [facility] orthopedics nonweightbearing right lower extremity Plan Non weight bearing on the right, folows with [facility] Code status: Conditional code, Admission and Anticipated Discharge Date Admission Date: August 23, 2023 Subjective pt is back to her baseline, she has mobility issues with fracture of right lower leg and limited movemet of shoulders, she has a large abdominal hernia and has some constipation but vital signs are stable Physical Exam Physical Exam: Patient is awake alert oriented x 3 Cardiac exam sounds to be regular without murmur Lungs are diminished at the bases Abdomen is protuberant and soft large hernia is present and not particularly tender Extremity has a cast on the right lower leg Results & Data Results & Data Vital Signs (Past 12 Hours) Vital Signs Temp Pulse Pulse Resp BP BP Pulse Ox 08/31/23 07:12 66 18 93 08/31/23 03:38 97.7 F 69 16 134/84 96 08/30/23 23:00 73 08/30/23 22:43 98.8 F 83 20 116/60 94 08/30/23 20:00 08/30/23 19:50 73 18 94 08/30/23 19:42 98.6 F 75 20 120/64 94 O2 Del Method O2 Flow Rate 08/31/23 07:12 Nasal Cannula 2 08/31/23 03:38 Nasal Cannula 2.0 08/30/23 23:00 08/30/23 22:43 Nasal Cannula 2.0 08/30/23 20:00 Nasal Cannula 2 08/30/23 19:50 Nasal Cannula 3 08/30/23 19:42 Nasal Cannula 2.5 Laboratory Results Reviewed CBC reviewed chemistry Medications Administered For complaints of constipation patient ordered dose of MiraLAX PG Care Time/CCT Total # of Minutes Spent Total Time Spent with Patient: Total time spent is greater than 50% in coordination of care (as documented) at patient's floor/unit and/or counseling patient: Coding Level of Care Code 19651 SUB INP/OBS CARE 350MIN Diagnoses Acute respiratory failure J96.00 Respiratory failure complication: unspecified whether with hypoxia or hypercapnia Anemia D64.9 EYAD (acute kidney injury) N17.9 Advanced care planning/counseling discussion Z71.89 Closed right fibular fracture S82.831A Encounter type: initial encounter Fibula location: proximal Fracture morphology: unspecified fracture morphology (1) Acute respiratory failure Respiratory failure complication: unspecified whether with hypoxia or hypercapnia Qualified Code(s): J96.00 - Acute respiratory failure, unspecified whether with hypoxia or hypercapnia (5) Closed right fibular fracture Encounter type: initial encounter Fibula location: proximal Fracture morphology: unspecified fracture morphology Qualified Code(s): S82.831A - Other fracture of upper and lower end of right fibula, initial encounter for closed fracture
[2023-08-31 10:42] LABS: Hematocrit (blood only) 25.8 % (37.0-47.0); Hemoglobin 7.5 g/dl (12.0-16.0); Mean Corpuscular Hemoglobin 31.6 pg (25.0-34.0); Mean Corpuscular Hgb Conc 29.1 g/dL (32.0-36.0); Mean Corpuscular Volume 108.9 fL (80.0-100.0); Mean Platelet Volume 9.4 fL (9.4-12.4); Nucleated RBC # (auto) 0.14 K/uL (0.00-0.12); Nucleated RBC % (auto) 2.4 %; Platelet Count 330 K/uL (130-400); RDW Coefficient of Variation 27.9 % (11.5-14.5); RDW Standard Deviation 109.4 fL (36.4-46.3); Red Blood Count 2.37 M/uL (4.20-5.40)
[2023-08-31 11:00] LABS: Calcium 9.4 mg/dl (8.6-10.3); Potassium 4.6 mmol/L (3.5-5.1)
[2023-08-31 11:06] LABS: BUN Creatinine Ratio 42.6 (10-20); Creatinine Clr Calc Pharmacy 100.5 ml/min; Est GFR (African American) 109.3 ml/min; Est GFR (Non-African American) 94.3 ml/min
[2023-08-31] MEDS: POLYETHYLENE (MIRALAX) 17 GM PACK PO ONE (15:13)
--- NOTE | 2023-09-01 08:01 | Hospitalist Progress Note ---
Date of Service September 01, 2023 Assessment & Plan (1) Acute respiratory failure: Plan: This is a readmission for acute on chronic respiratory failure with hypoxia and hypercapnia. At last discharge there was concern for transition to hospice but patient rescinded that request There is concern of noncompliance with BiPAP postdischarge. Previous admission patient had left lung collapse with mucoid impaction she has had multiple on hospice over the last month Patient will complete doxycycline for bronchitis on Sunday. 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 -Patient is now a conditional code, does not want hospice, awaiting placement, anticipate multiple readmissions in the future due to her noncompliance.. (5) Closed right fibular fracture: Plan: Patient is close right fibular fracture sustained somewhere around August 06 followed by [facility] orthopedics nonweightbearing right lower extremity Plan Non weight bearing on the right, follows with [facility] Code status: Conditional code, Significant other updated at bedside Admission and Anticipated Discharge Date Admission Date: August 23, 2023 Subjective pt is back to her baseline, she has mobility issues with fracture of right lower leg and limited movemet of shoulders, she has a large abdominal hernia and has some constipation but vital signs are stable Physical Exam Physical Exam: Patient is awake alert oriented x 3 Cardiac exam sounds to be regular without murmur Lungs are diminished at the bases Abdomen is protuberant and soft large hernia is present and not particularly tender Extremity has a cast on the right lower leg Results & Data Results & Data Vital Signs (Past 12 Hours) Vital Signs Pulse Pulse Resp BP Pulse Ox O2 Del Method O2 Flow Rate 09/01/23 03:48 64 15 119/51 L 95 Nasal Cannula 2 09/01/23 00:15 98 H 18 122/56 L 94 Nasal Cannula 2 08/31/23 21:50 71 08/31/23 20:10 Nasal Cannula 2 Laboratory Results Reviewed hemoglobin 7.6 this is stable after transfusion PG Care Time/CCT Total # of Minutes Spent Total Time Spent with Patient: Total time spent is greater than 50% in coordination of care (as documented) at patient's floor/unit and/or counseling patient: Coding Level of Care Code 91167 SUB INP/OBS CARE 2/35MIN Diagnoses Acute respiratory failure J96.00 Respiratory failure complication: unspecified whether with hypoxia or hypercapnia Anemia D64.9 EYAD (acute kidney injury) N17.9 Advanced care planning/counseling discussion Z71.89 Closed right fibular fracture S82.831A Encounter type: initial encounter Fibula location: proximal Fracture morphology: unspecified fracture morphology (1) Acute respiratory failure Respiratory failure complication: unspecified whether with hypoxia or hypercapnia Qualified Code(s): J96.00 - Acute respiratory failure, unspecified whether with hypoxia or hypercapnia (5) Closed right fibular fracture Encounter type: initial encounter Fibula location: proximal Fracture morphology: unspecified fracture morphology Qualified Code(s): S82.831A - Other fracture of upper and lower end of right fibula, initial encounter for closed fracture
--- NOTE | 2023-09-02 14:42 | Hospitalist Progress Note ---
Date of Service September 02, 2023 Assessment & Plan (1) Acute respiratory failure: Plan: This is a readmission for acute on chronic respiratory failure with hypoxia and hypercapnia. At last discharge there was concern for transition to hospice but patient rescinded that request There is concern of noncompliance with BiPAP postdischarge. Previous admission patient had left lung collapse with mucoid impaction she has had multiple hospitalizations in the recent past Patient will complete doxycycline for bronchitis on Sunday. 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 -Patient is now a conditional code, does not want hospice, awaiting placement, anticipate multiple readmissions in the future due to her noncompliance.. (5) Closed right fibular fracture: Plan: Patient is close right fibular fracture sustained somewhere around August 06 followed by [facility] orthopedics nonweightbearing right lower extremity Plan Non weight bearing on the right, follows with [facility] Orth[facility] Code status: Conditional code, Significant other updated at bedside Admission and Anticipated Discharge Date Admission Date: August 23, 2023 Subjective pt is back to her baseline, she has mobility issues with fracture of right lower leg and limited movemet of shoulders, she has a large abdominal hernia and has some constipation but vital signs are stable Currently awaiting insurance placement to retirement facility Physical Exam Physical Exam: Patient is awake alert oriented x 3 Cardiac exam sounds to be regular without murmur Lungs are diminished at the bases Abdomen is protuberant and soft large hernia is present and not particularly tender Extremity has a cast on the right lower leg Results & Data Results & Data Vital Signs (Past 12 Hours) Vital Signs Temp Pulse Resp BP Pulse Ox O2 Del Method O2 Flow Rate 09/02/23 11:51 68 18 99 Nasal Cannula 2 09/02/23 08:25 97.9 F 69 18 125/77 96 Nasal Cannula 09/02/23 08:00 Nasal Cannula 2 09/02/23 07:12 73 18 97 Nasal Cannula 2 Laboratory Results Reviewed [id number]-evsh glucoses are elevated however patient is being noncompliant eating food family brings in PG Care Time/CCT Total # of Minutes Spent Total Time Spent with Patient: Total time spent is greater than 50% in coordination of care (as documented) at patient's floor/unit and/or counseling patient: Coding Level of Care Code 11553 SUB INP/OBS CARE 2/35MIN Diagnoses Acute respiratory failure J96.00 Respiratory failure complication: unspecified whether with hypoxia or hypercapnia Anemia D64.9 EYAD (acute kidney injury) N17.9 Advanced care planning/counseling discussion Z71.89 Closed right fibular fracture S82.831A Encounter type: initial encounter Fibula location: proximal Fracture morphology: unspecified fracture morphology (1) Acute respiratory failure Respiratory failure complication: unspecified whether with hypoxia or hypercapnia Qualified Code(s): J96.00 - Acute respiratory failure, unspecified whether with hypoxia or hypercapnia (5) Closed right fibular fracture Encounter type: initial encounter Fibula location: proximal Fracture morphology: unspecified fracture morphology Qualified Code(s): S82.831A - Other fracture of upper and lower end of right fibula, initial encounter for closed fracture
[2023-09-03 08:44] LABS: Hematocrit (blood only) 29.7 % (37.0-47.0); Hemoglobin 8.8 g/dl (12.0-16.0); Mean Corpuscular Hemoglobin 31.7 pg (25.0-34.0); Mean Corpuscular Hgb Conc 29.6 g/dL (32.0-36.0); Mean Corpuscular Volume 106.8 fL (80.0-100.0); Mean Platelet Volume 9.3 fL (9.4-12.4); Nucleated RBC # (auto) 0.02 K/uL (0.00-0.12); Nucleated RBC % (auto) 0.4 %; Platelet Count 325 K/uL (130-400); RDW Standard Deviation 90.9 fL (36.4-46.3); Red Blood Count 2.78 M/uL (4.20-5.40); White Blood Count 4.89 K/ul (4.8-10.8)
[2023-09-03 08:59] LABS: BUN Creatinine Ratio 39.3 (10-20); Calcium 9.3 mg/dl (8.6-10.3); Creatinine Clr Calc Pharmacy 97.3 ml/min; Est GFR (Non-African American) 93.2 ml/min; Potassium 4.3 mmol/L (3.5-5.1)
--- NOTE | 2023-09-03 17:55 | Hospitalist Progress Note ---
Date of Service September 03, 2023 Assessment & Plan (1) Acute respiratory failure: Plan: This is a readmission for acute on chronic respiratory failure with hypoxia and hypercapnia. At last discharge there was concern for transition to hospice but patient rescinded that request There is concern of noncompliance with BiPAP postdischarge. Previous admission patient had left lung collapse with mucoid impaction she has had multiple hospitalizations in the recent past Patient will complete doxycycline for bronchitis on Sunday. 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 -Patient is now a conditional code, does not want hospice, awaiting placement, anticipate multiple readmissions in the future due to her noncompliance.. (5) Closed right fibular fracture: Plan: Patient is close right fibular fracture sustained somewhere around August [address] [facility] orthopedics nonweightbearing right lower extremity Plan Non weight bearing on the right, follows with [facility] Code status: Conditional code, Significant other updated at bedside Admission and Anticipated Discharge Date Admission Date: August 23, 2023 Subjective pt is back to her baseline, she has mobility issues with fracture of right lower leg and limited movemet of shoulders, she has a large abdominal hernia and has some constipation but vital signs are stable Currently awaiting [facility] Physical Exam Physical Exam: Patient is awake alert oriented x 3 Cardiac exam sounds to be regular without murmur Lungs are diminished at the bases Abdomen is protuberant and soft large hernia is present and not particularly tender Extremity has a cast on the right lower leg Results & Data Results & Data Vital Signs (Past 12 Hours) Vital Signs Temp Pulse Resp BP Pulse Ox O2 Del Method O2 Flow Rate 09/03/23 15:47 80 18 98 Nasal Cannula 3 09/03/23 14:55 98.2 F 71 16 104/59 L 95 Nasal Cannula 2 09/03/23 11:20 75 18 96 Nasal Cannula 2 09/03/23 08:00 Nasal Cannula 2 09/03/23 07:14 97.9 F 58 L 16 111/64 100 Nasal Cannula, Nebulizer 2 09/03/23 07:09 103 H 18 98 Nasal Cannula 2 Laboratory Results review cbc review chemistry PG Care Time/CCT Total # of Minutes Spent Total Time Spent with Patient: Total time spent is greater than 50% in coordination of care (as documented) at patient's floor/unit and/or counseling patient: Coding Level of Care Code 70775 SUB INP/OBS CARE 07/26MIN Diagnoses Acute respiratory failure J96.00 Respiratory failure complication: unspecified whether with hypoxia or hypercapnia Anemia D64.9 EYAD (acute kidney injury) N17.9 Advanced care planning/counseling discussion Z71.89 Closed right fibular fracture S82.831A Encounter type: initial encounter Fibula location: proximal Fracture morphology: unspecified fracture morphology (1) Acute respiratory failure Respiratory failure complication: unspecified whether with hypoxia or hypercapnia Qualified Code(s): J96.00 - Acute respiratory failure, unspecified whether with hypoxia or hypercapnia (5) Closed right fibular fracture Encounter type: initial encounter Fibula location: proximal Fracture morphology: unspecified fracture morphology Qualified Code(s): S82.831A - Other fracture of upper and lower end of right fibula, initial encounter for closed fracture
--- NOTE | 2023-09-04 16:36 | Hospitalist Progress Note ---
Date of Service September 04, 2023 Assessment & Plan (1) Acute respiratory failure: Plan: This is a readmission for acute on chronic respiratory failure with hypoxia and hypercapnia. At last discharge there was concern for transition to hospice but patient rescinded that request There is concern of noncompliance with BiPAP postdischarge. 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 -Patient is now a conditional code, does not want hospice, awaiting placement, anticipate multiple readmissions in the future due to her noncompliance.. (5) Closed right fibular fracture: Plan: Patient is close right fibular fracture sustained somewhere around August 06 followed by [facility] orthopedics nonweightbearing right lower extremity Plan Non weight bearing on the right, follows with [facility] Orth[facility] Code status: Conditional code, Significant other updated at bedside For constipation patient agrees for senna dosing starting the evening of 09/03 Admission and Anticipated Discharge Date Admission Date: August 23, 2023 Subjective pt is back to her baseline, she has mobility issues with fracture of right lower leg and limited movement of shoulders, she has a large abdominal hernia and has some constipation but vital signs are stable Currently awaiting insurance placement to long term facility Patient is a ported to be deaccessed due to leaking. Physical Exam Physical Exam: Patient is awake alert oriented x 3 Cardiac exam sounds to be regular without murmur Lungs are diminished at the bases Abdomen is protuberant and soft large hernia is present and not particularly tender Extremity has a cast on the right lower leg Results & Data Results & Data Vital Signs (Past 12 Hours) Vital Signs Temp Pulse Resp BP Pulse Ox O2 Del Method O2 Flow Rate 09/04/23 15:38 97.7 F 76 18 100/64 98 Room Air 09/04/23 10:41 73 18 96 Nasal Cannula 2 09/04/23 07:26 Nasal Cannula 2 09/04/23 06:32 97.5 F L 64 18 125/76 97 Nasal Cannula 2 Laboratory Results Reviewed conbs-gl-nryr glucose PG Care Time/CCT Total # of Minutes Spent Total Time Spent with Patient: Total time spent is greater than 50% in coordination of care (as documented) at patient's floor/unit and/or counseling patient: Coding Level of Care Code 46342 SUB INP/OBS CARE 2/35MIN Diagnoses Acute respiratory failure J96.00 Respiratory failure complication: unspecified whether with hypoxia or hypercapnia Anemia D64.9 EYAD (acute kidney injury) N17.9 Advanced care planning/counseling discussion Z71.89 Closed right fibular fracture S82.831A Encounter type: initial encounter Fibula location: proximal Fracture morphology: unspecified fracture morphology (1) Acute respiratory failure Respiratory failure complication: unspecified whether with hypoxia or hypercapnia Qualified Code(s): J96.00 - Acute respiratory failure, unspecified whether with hypoxia or hypercapnia (5) Closed right fibular fracture Encounter type: initial encounter Fibula location: proximal Fracture morphology: unspecified fracture morphology Qualified Code(s): S82.831A - Other fracture of upper and lower end of right fibula, initial encounter for closed fracture
[2023-09-04] MEDS: SENNA 8.6 MG TAB PO ONE (16:57)
[2023-09-04] MEDS: ALBUT/IPRATROP 3MG/0.5MG NEB 3 ML VIAL NEB SCH (19:27)
[2023-09-05] MEDS: SENNA 8.6 MG TAB PO SCH (08:55)
--- NOTE | 2023-09-05 16:04 | Discharge Summary ---
Date of Service September 05, 2023 Admission HPI Per Admitting Provider Patient is a 73-year-old female with past medical history of Morbid Obesity, HFpEF, Chronic Respiratory failure (non-compliant with BiPAP and cough assist at home), HTN, Anemia, DMII uncontrolled, Anemia. Patient was recently admitted and discharged on August 20 following a fall resulting in pelvic ramus fracture, and closed right fibular fracture that was managed non-surgical. She also had an A-port placed for chronic blood transfusions. She also underwent bronchoscopy at that time by Dr. Jean-Baptiste for left lung collapse secondary to mucoid impaction. The bronchoscopy was simotaneously done with A-port secondary to her high risk of sedation and intubation. She had good results x1 day following her bronchoscopy and again on 08/18/23 she had collapse of the left lung again, the patient refused another bronchoscopy at that time and she also refused her CoughAssist as well as BiPAP. She had a palliative care discussion at that time which also seemed to have discrepancies as patient wanted to be DNR/DNI, but family wanted continued support. She was eventually discharged. It is unsure if she was discharged with BiPAP or not. She is accompanied by her at this time, and he states she does not have a mask or machine at her rehab facility, but does continue to decline cough assist or deep breathing and coughing mechanics. Discussed with the patient and the at the bedside and patient is able to wake up, she is aware of where she is and states that she would not want to be intubated and on a ventilatory if she would go into respiratory or cardiac arrest/failure, but would want CPR and Medications. As patient is currently dependant on her VT and RR with BiPAP will admit to ICU for coordination of care and await pulmonary evaluation this morning for possible bronchoscopy. This again would be high risk in regards to her overall ability to handle sedation without being intubated as well as getting extubated. Principal Diagnosis acute on chronic respiratory failure with hypoxia and hypercapnia. 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 obesity and previous shoulder injuries anemia assume acute blood loss from gi sources with refusal of work up Discharge Exam pt without distress Discharge Data Allergies Allergy/AdvReac Type Severity Reaction Status Date / Time latex Allergy Severe 2ND DEGREE Verified 08/23/23 01:52 BURN FROM BANDAGE adhesive Allergy Intermediate RASH Verified 08/23/23 01:52 Consultations 08/23/23 02:39 ED Decision to Admit Stat 08/23/23 03:45 Consult Pulmonology Stat 08/23/23 05:40 Consult Inside Channel Account Manager Routine 08/24/23 14:51 Consult General Surgery Routine 08/24/23 15:43 Consult Palliative Care Routine Hospital Course (1) Acute respiratory failure: This is a readmission for acute on chronic respiratory failure with hypoxia and hypercapnia. At last discharge there was concern for transition to hospice but patient r escinded that request There is concern of noncompliance with BiPAP postdischarge, she has not worn bipap here Previous admission patient had left lung collapse with mucoid impaction she has had multiple hospitalizations in the recent past Patient completed doxycycline for bronchitis (2) Anemia: -Hemoglobin has been stable; transfusion of 1 unit packed red blood cells No obvious signs of blood loss at present Previous request for further GI workup have been refused by patient (3) EYAD (acute kidney injury): EYAD on CKD 3 improved Chronic diastolic heart failure stable 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 -Patient is now a conditional code, does not want hospice, anticipate multiple readmissions in the future due to her noncompliance.. (5) Closed right fibular fracture: Patient is close right fibular fracture sustained somewhere around August 06 followed by [facility] nonweightbearing right lower extremity Plan Non weight bearing on the right, follows with [facility] Code status: Conditional code, Significant other updated Total Time Total Time Spent Total Time Spent (In Minutes): It required greater than 30 minutes to prepare this patient for discharge. Discharge Plan Discharge Items Patient Disposition: Transfer Shelter Fac Reason For Visit: ANEMIA, ARF Discharge Diagnosis: ANEMIA with acute blood loss, refusal of GI work up pre hospital closed right fibular fracture and cast functional mobility issues from pre hospital arthritic issues Condition on Discharge: Fair Activity: Resume your previous activity Activity Comment: PT/OT eval and treat Non-emergency contact: Primary Care Provider and Surgeon Call non-emergency contact if: your symptoms worsen Follow-up/Referrals: Kaiden Root MD [Surgeon] - Caryn Avalos MD [Primary Care Provider] - Diet: Carb Consistent or DM2 Addtl Attending Provider Instructions: please assure that pt has follow up with Dr Root for right fibular fracture please folllow her anemia and transfuse as needed pt has a abdominal hernia and has challenges with constipation, please keep a eye on bowel regimen Addtl Clam Picker Provider Instructions: PT has been refusing bipap while here Pending Studies at Discharge: No Stand-Alone Forms: My [facility] Skilled Items Patient informed of condition?: Yes DNR: No (she is a conditional code no advanced airway or ventilation ) Discharge Level of Care: Skilled Communicable Disease: No Discharge Prognosis: Stable Lines: None Urinary Catheter: No Medications and DC Order Prescriptions: New insulin aspart U-100 [Novolog U-100 Insulin aspart] 100 unit/mL Solution 0.1 unit SC ACHS Qty: 10 0RF Rx Instructions: Goal BSG Range: Low 110mg/dL, High 140mg/dL --Correction Factor: 35mg/dL/unit --Carbohydrate ratio = 15 g/unit Continued atorvastatin [Lipitor] 80 mg Tablet 80 mg PO HS aspirin [Malcom Low Dose Aspirin] 81 mg Tablet,Delayed Release (Dr/Ec) 81 mg PO HS gabapentin 300 mg Capsule 300 mg PO TID quetiapine 100 mg tablet 100 mg PO HS magnesium oxide 400 mg (241.3 mg magnesium) Tablet 400 mg PO BID Qty: 20 0RF polyethylene glycol 3350 [Miralax] 17 gram Powder In Packet 17 g PO DAILY Qty: 14 0RF Rx Instructions: MAY HAVE ADDITIONAL DOSE DAILY FOR CONSTIPATION pantoprazole 40 mg Tablet,Delayed Release (Dr/Ec) 40 mg PO BID Qty: 30 0RF sennosides-docusate sodium [Senokot-S] 8.6-50 mg Tablet 1 tab PO BID Qty: 60 0RF acetaminophen [Tylenol] 325 mg Tablet 650 mg PO Q4H MDD 3 GRAMS APAP/24 HOURS PRN (Reason: PAIN/FEVER=>100) docusate sodium [Colace] 100 mg Capsule 100 mg PO DAILY PRN (Reason: Constipation) ipratropium-albuterol 0.5 mg-3 mg(2.5 mg base)/3 mL solution for nebulization 3 ml inhalation Q6H PRN (Reason: Dyspnea) Changed insulin glargine [Lantus U-100 Insulin] 100 unit/mL Solution 10 unit subcut BID Qty: 30 0RF Discontinued Januvia 100 mg tablet 100 mg PO QPM metformin 850 mg tablet 850 mg PO BID lisinopril 5 mg tablet 5 mg PO DAILY potassium chloride 10 mEq tablet extended release 10 meq PO DAILY doxycycline hyclate 100 mg Capsule 100 mg PO BID Qty: 20 0RF Rx Instructions: STARTED 08/20/23 FOR 10 DAYS, ENDS 08/30/23. lorazepam 0.5 mg Tablet 0.5 mg PO BID PRN (Reason: Anxiety) furosemide [Lasix] 20 mg Tablet 20 mg PO DAILY mirtazapine [Remeron] 15 mg Tablet 15 mg PO HS Discharge Orders: Discharge Order (Routine); Ordered 09/05/23 Ordered By: Rocco Jefferson/Other Patient Handouts: Chest and Lung Problems, Anemia, ED Shortness of Breath (Dyspnea) Admission Data Admit Date/Time: 08/23/23 03:45 Attending Provider: Rocco Hapmton Admit Provider: Moi Caal Primary Care Provider: Caryn Avalos Other Providers: Ras Greene [place]; Ru Parrish; Onel Stanley; Leonel Nova; Cuco Gonzalez; Adelina Jean-Baptiste; Angelique Calix; Shelbi Shaw; Gee Whalen; Salas Pringle; Laura Jasmine; Toi Grady; Rachel Orellana; Aaron Barr; Isacc Amaral; Avery Kirkpatrick; Gee Gautam; Jovita Wong; Apollo Liriano; Antione Sorensen; Jadon Troy; Nicolas Carrington; Gabriela Peters Other Interventions: Discharge Summary Assessment (RN) Last Done: 09/05/23 10:28 Coding Level of Care Code 50425 INP/OBS DISCH >30 MIN Diagnoses Acute respiratory failure J96.00 Respiratory failure complication: unspecified whether with hypoxia or hypercapnia Anemia D64.9 EYAD (acute kidney injury) N17.9 Advanced care planning/counseling discussion Z71.89 Closed right fibular fracture S82.831A Encounter type: initial encounter Fibula location: proximal Fracture morphology: unspecified fracture morphology
== END 2023-09-05 10:52 | DRG 189 ==
LOC: ED 00:08 → SUATTDRO 03:45 → 1E 03:45 → 2E 19:22 → 3N 09-02 10:36

== ENCOUNTER 2023-11-09 12:55 | Inpatient (IN) ==
--- NOTE | 2023-11-09 13:17 | Emergency Department Note ---
Impression & Plan Sepsis, Weakness, Elevated troponin, Acute on chronic hypoxic respiratory failure ED Provider Note NAME: ANABEL VACA AGE: 73 SEX: F : 1950 ARRIVES VIA: Ambulance INFORMANT: Patient, , prior record ED PROVIDER(S): Cristofer Black MD CHIEF COMPLAINT: Weakness, fatigue MEDICAL DECISION MAKING: Patient presents due to concern for weakness and fatigue with associated appears dehydrated. IV was established and blood work was obtained. Patient was ordered IV fluids. Empiric Zosyn and MRSA swab ordered along with chest x-ray and CT abdomen/pelvis patient with a lactate of 15 normal hemoglobin thrombocytosis of 465. Kidney function unremarkable but prerenal azotemia noted. The patient did receive some IV fluids. The patient did not initially receive 30 cc/kg bolus patient does have chronic respiratory failure with hypoxia currently on her 4 L nasal cannula baseline and known h/o CHF. Patient's chest x-ray with pulmonary edema and L sided w/ concern for PNA but could have b/l PNA. The patient CT abdomen pelvis does show acute abnormalities does have a large ventral hernia which is reportedly unchanged. Patient also noted to be hyponatremic procalcitonin 0.5. Troponin 48. Patient's potassium is 5.4. Calcium of 8.2. Patient's initial lactate of 1.4. Given the patient's sepsis did speak with the on-call hospitalist service Mauri Serrano PA-C the patient was admitted by Dr. Grimes. After the time of admission the patient was noted to be hypotensive and transferred care to the ICU on low-dose pressors per the admitting team. Discussion w/ other healthcare providers: BOBBI Serrano PA-C and Dr. Grimes inpatient medicine service Prior /Outside records reviewed: I reviewed a discharge summary from Dr. Hampton from September 05, 2023. Known history of morbid obesity heart failure with preserved ejection fraction chronic respiratory failure noncompliant with BiPAP and CoughAssist at home hypertension anemia type 2 diabetes uncontrolled and anemia. Patient did have a right fibular and pelvic ramus fracture which were nonoperative. Patient to have a a port placed for chronic blood transfusions. Underwent bronchoscopy with Dr. Jhaveri for left lung collapse secondary to mucoid impaction. Patient was reportedly seen by palliative care was DNR/DNI but family was requesting additional care. I did review most recent echocardiogram from August 2023. Patient with LV systolic function normal mild concentric LVH right ventricular systolic function is normal. Right ventricular systolic pressure elevated 30 to 40 mmHg. Right ventricle also noted to be mildly dilated. LVEF of 60 to 65%. Differential diagnosis: Infection, dehydration, metabolic abnormality, hypo/hyperglycemia, electrolyte imbalance, anemia, UTI, pneumonia, thyroid dysfunction among others were considered. Diagnostics, as interpreted by me: ECG: A-fib, rate of 100, wide QRS, right axis deviation no ST elevations. Cardiac monitoring: An order was placed for continuous cardiac monitoring. The monitor shows a rate of 110 with tachycardic and regular rhythm. Patient was placed on pulse oximetry Medical decision rules: None Imaging studies: I informally interpreted the patient's chest x-ray shows left-sided effusion and possible bilateral pneumonia with formal report to follow. HPI:Patient did undergo recent seizure treatment was recently discharged from [facility] increasing fatigue patient reportedly is laid in bed for the last 15 days too weak to get up. Patient does complain of abdominal pain no nausea vomiting or diarrhea. Patient states that she has not had any increase in stools. No falls or trauma. Patient states that when she woke up this morning she felt as though she could not move her legs very well. The patient denies any back pain. No chest pain or shortness of breath the patient is on chronic oxygen therapy 4 L at all times. Patient does admit to not eating or drinking as much is unsure as without she took her medications at home. The patient does live at home with her . Patient denies any alcohol tobacco or drug use PAST MEDICAL HISTORY: See Below PAST SURGICAL HISTORY: See Below SOCIAL HISTORY: See Below HOME MEDICATIONS: See Below ALLERGIES: See Below VITALS: See Below PHYSICAL EXAMINATION: GENERAL: Ill in appearance. EYE EXAM: Normal conjunctiva. PERRL, no anisocoria and EOM's grossly intact w/o pain. OROPHARYNX: Dry mucus membranes, grossly normal dentition. NECK: Trachea midline, no stridor. LUNGS: Decreased breath sounds left chest. Crackles noted. Normal chest wall mechanics. HEART: Tachycardic and regular, no MRG. ABDOMEN: Abdomen soft, large abdomen, mild diffuse pain, no masses, no rebound or guarding. BACK: No CVA TTP. SKIN: No rashes and no bruising. UPPER EXTREMITIES: Upper extremities are grossly normal. LOWER EXTREMITIES: Grossly normal, no edema. NEURO EXAM: A&O x3, cranial nerves II-XII grossly intact, normal speech, moves all 4 extremities. Past Med/Surg History Medical History Impaired insight Dyspnea and respiratory abnormalities Advanced care planning/counseling discussion Palliative care by specialist Weakness generalized Cancer related pain Macrocytic anemia Shortness of breath Palliative care encounter Hyponatremia Complicated UTI (urinary tract infection) H/O defect LEFT ARM Diabetes mellitus, type 2 NIDDM Temporomandibular joint disorder NO PROBLEMS RECENTLY. Glaucoma WELL CONTROLLED Anxiety Depression Peripheral neuropathy BILATERAL FEET Hyperlipidemia Hypertension Chronic obstructive pulmonary disease Surgical History Port-A-Cath in place (08/17/23) Aport Insertion - Avery Kirkpatrick, DO S/P JALIL-BSO History of total shoulder replacement RIGHT History of incision and drainage UMBILICAL ABSCESS Hx of umbilical hernia repair X4 -- WEARS SUPPORT BAND DAILY History of colonoscopy History of cholecystectomy History of appendectomy S/P tonsillectomy and adenoidectomy Family History Mother Diabetes mellitus, type 2 Aunt Diabetes mellitus, type 2 Social History Smoking Status: Former smoker Tobacco Type: Cigarettes Cigarettes Per Day: 20; Smoking End Date: August 2023; Second Hand Exposure: No; Do You Dip or Chew Tobacco: No; Hx Alcohol Use: No Hx Substance Use: No Preferred Language: Turkish Communication Ability: Effective Inspector Watch Train Required: No Beliefs That Will Affect Care: None marital status: Current Living Situation: Spouse Current Living Situation Comment: Lives at home with current occupational status: retired Other Information That Helps Us Care for You: No Feels Safe at Home: Yes Safety Concerns: Feels Safe At This Time Assistive Devices: Hospital Bed and Mechanical Lift Allergies Allergies Allergy/AdvReac Type Severity Reaction Status Date / Time latex Allergy Severe 2ND DEGREE Verified 08/23/23 01:52 BURN FROM BANDAGE adhesive Allergy Intermediate RASH Verified 08/23/23 01:52 Home Meds Home Medications Medication Instructions Recorded Confirmed aspirin 81 mg tablet,delayed 81 mg PO HS 10/30/18 11/09/23 release (Malcom Low Dose Aspirin) atorvastatin 80 mg tablet (Lipitor) 80 mg PO HS 10/30/18 11/09/23 gabapentin 300 mg capsule 300 mg PO TID 10/30/18 11/09/23 quetiapine 100 mg tablet 100 mg PO HS 12/13/21 11/09/23 acetaminophen 325 mg tablet 650 mg PO Q4H PRN PAIN/FEVER=>100 08/23/23 11/09/23 (Tylenol) docusate sodium 100 mg capsule 100 mg PO DAILY PRN Constipation 08/23/23 11/09/23 (Colace) ipratropium 0.5 mg-albuterol 3 mg 3 ml inhalation Q6H PRN Dyspnea 08/23/23 11/09/23 (2.5 mg base)/3 mL nebulization soln insulin glargine-yfgn 100 unit/mL 0 unit subcut DAILY 11/09/23 11/09/23 (3 mL) subcutaneous pen (Semglee (insulin glargine-yfgn) Pen) metformin 500 mg tablet 500 mg PO BID 11/09/23 11/09/23 mirtazapine 30 mg tablet 30 mg PO HS 11/09/23 11/09/23 sitagliptin phosphate 100 mg 100 mg PO DAILY 11/09/23 11/09/23 tablet (Januvia) Previous Rx's Medication Instructions Recorded magnesium oxide 400 mg (241.3 mg 400 mg PO BID #20 tabs 08/20/23 magnesium) tablet pantoprazole 40 mg tablet,delayed 40 mg PO BID #30 tabs 08/20/23 release polyethylene glycol 3350 17 gram 17 g PO DAILY #14 ea 08/20/23 oral powder packet (Miralax) sennosides 8.6 mg-docusate sodium 1 tab PO BID #60 tabs 08/20/23 50 mg tablet (Senokot-S) insulin aspart U-100 100 unit/mL 0.1 unit (0.001 mL) SC ACHS #10 mL 09/05/23 subcutaneous solution (Novolog U-100 Insulin aspart) insulin glargine 100 unit/mL 10 unit (0.1 mL) subcut BID #30 mL 09/05/23 subcutaneous solution (Lantus U-100 Insulin) Results & Data (ED) Vital Signs Vital Signs - 24 hr 05/10/24 17:01 11/09/23 17:31 11/09/23 17:42 Pulse Rate 106 H 106 H 106 H Pulse Rate [Apical] Pulse Rate from SpO2 Sensor 109 H 108 H Pulse Rhythm [Apical] Pulse Strength [Apical] Respiratory Rate 19 16 Respiratory Effort / Characteristics Respiratory Depth Respiratory Pattern Blood Pressure 102/76 114/62 Blood Pressure [Left Arm] Blood Pressure Mean 84 79 Blood Pressure Mean [Left Arm] Blood Pressure Position [Left Arm] Pulse Oximetry 94 96 Oxygen Delivery Method Nasal Cannula Nasal Cannula Oxygen Flow Rate 4 4 11/09/23 18:00 11/09/23 18:10 11/09/23 18:14 Pulse Rate 112 H 98 H Pulse Rate [Apical] 105 H Pulse Rate from SpO2 Sensor 113 H 110 H Pulse Rhythm [Apical] Regular Pulse Strength [Apical] Normal Respiratory Rate 14 18 16 Respiratory Effort / Characteristics Non-Labored Spontaneous Respiratory Depth Normal Respiratory Pattern Regular Blood Pressure 85/73 L 85/73 L Blood Pressure [Left Arm] 81/57 L Blood Pressure Mean 77 77 Blood Pressure Mean [Left Arm] 65 Blood Pressure Position [Left Arm] Lying Pulse Oximetry 99 98 96 Oxygen Delivery Method Nasal Cannula Room Air Oxygen Flow Rate 4 4 11/09/23 18:18 11/09/23 18:30 11/09/23 18:36 Pulse Rate 99 H 105 H Pulse Rate [Apical] Pulse Rate from SpO2 Sensor Pulse Rhythm [Apical] Pulse Strength [Apical] Respiratory Rate 14 20 Respiratory Effort / Characteristics Respiratory Depth Respiratory Pattern Blood Pressure 81/57 L 87/67 L Blood Pressure [Left Arm] Blood Pressure Mean 65 77 Blood Pressure Mean [Left Arm] Blood Pressure Position [Left Arm] Pulse Oximetry 96 Oxygen Delivery Method Nasal Cannula Oxygen Flow Rate 4 11/09/23 18:36 Pulse Rate Pulse Rate [Apical] Pulse Rate from SpO2 Sensor Pulse Rhythm [Apical] Pulse Strength [Apical] Respiratory Rate Respiratory Effort / Characteristics Respiratory Depth Respiratory Pattern Blood Pressure 94/57 L Blood Pressure [Left Arm] Blood Pressure Mean 68 Blood Pressure Mean [Left Arm] Blood Pressure Position [Left Arm] Pulse Oximetry Oxygen Delivery Method Oxygen Flow Rate Home Medications Current Medication List: was personally reviewed by me Laboratory Data Attestation: I reviewed the patient's lab results. 11/10/23 05:44 11/10/23 15:03 Lab Results 05/04/2411/09/23 11/09/23 Range/Units 13:40 13:47 14:35 WBC 15.12 H (4.8-10.8) K/ul RBC 5.46 H (4.20-5.40) M/uL Hgb 15.9 (12.0-16.0) g/dl Hct 45.6 (37.0-47.0) % MCV 83.5 (80.0-100.0) fL MCH 29.1 (25.0-34.0) pg MCHC 34.9 (32.0-36.0) g/dL RDW Std Deviation 64.3 H (36.4-46.3) fL RDW Coeff of Vikas 21.5 H (11.5-14.5) % Plt Count 465 H (130-400) K/uL MPV 8.5 L (9.4-12.4) fL Immature Gran % (Auto) 0.6 % Neut % (Auto) 91.6 % Lymph % (Auto) 4.8 % [place] % (Auto) 2.4 % Eos % (Auto) 0.1 % Baso % (Auto) 0.5 % Neut # (Auto) 13.87 H (1.40-6.50) K/uL Lymph # (Auto) 0.72 L (1.20-3.40) K/uL [place] # (Auto) 0.36 (0.11-0.59) K/uL Eos # (Auto) 0.01 (0.00-0.50) K/uL Baso # (Auto) 0.07 (0.00-0.20) K/uL Immature Gran # (Auto) 0.09 (0.01-0.20) K/uL Anisocytosis Present Sodium 120 L (136-145) mmol/L Potassium 5.4 H (3.5-5.1) mmol/L Chloride 87 L (98-107) mmol/L Carbon Dioxide 21 (21-32) mmol/L Anion Gap 12 H (3-11) BUN 34 H (6-23) mg/dl Creatinine 1.08 (0.6-1.2) mg/dl Est Cr Clr Drug Dosing 55.6 ml/min Est GFR ( Amer) 59.4 ml/min Est GFR (Non-Af Amer) 51.2 ml/min BUN/Creatinine Ratio 31.5 H (10-20) Glucose 61 L (70-99(Fasting)) mg/dl POC Glucose (70-99) mg/dl Osmolality (280-300) mOsm/kg Lactate 1.4 (0.4-2.0) mmol/L Calcium 8.2 L (8.6-10.3) mg/dl Magnesium 2.0 (1.7-2.4) mg/dl Total Bilirubin 0.6 (0.2-1.0) mg/dl Direct Bilirubin 0.1 (0-0.2) mg/dl AST 72 H (13-39) U/L ALT 43 (7-52) U/L Alkaline Phosphatase 260 H (34-104) U/L Troponin I High Sens 48.6 H (0-14) pg/ml Total Protein 7.0 (6.0-8.3) gm/dl Albumin 2.6 L (3.4-5.0) gm/dl Procalcitonin 0.51 H (0-0.5) ng/ml Random Cortisol mcg/dl Urine Color Dark Yellow Urine Appearance Turbid A (Clear) Urine pH 5.5 (4.5-7.5) Ur Specific [place] 1.014 (1.000-1.030) Urine Protein 1+ H (Negative) Urine Glucose (UA) Negative (Negative) Urine Ketones Trace H (Negative) Urine Blood 2+ H (Negative) Urine Nitrite Negative (Negative) Urine Bilirubin 1+ H (Negative) Urine Urobilinogen Negative (Negative) Ur Leukocyte Esterase 3+ H (Negative) Urine WBC (Auto) >50 H (0-5) /hpf Urine RBC (Auto) 0-2 (0-2) /hpf U Hyaline Cast (Auto) 3-5 H (0-2) /lpf U Epithel Cells (Auto) 6-10 H (0-2) /hpf Urine Bacteria (Auto) 4+ H (None Seen) Enterobacterales (PCR) DETECTED A (NotDetected) E. coli (PCR) DETECTED A (NotDetected) mcr-1 Colistin Res Gene PCR Not Detected (NotDetected) blaIMP Car res Gene PCR Not Detected (NotDetected) KPC-Carbap Res Gene PCR Not Detected (NotDetected) blaNDM Car Res Gene PCR Not Detected (NotDetected) OXA-48 Carbapenem Resis Gene (PCR) Not Detected (NotDetected) blaVIM Car Res Gene PCR Not Detected (NotDetected) CTX-M Gene Resistance (PCR) Not Detected (NotDetected) Bld Cult ID Panel PCR See PCR Comment (NotDetected) 11/09/23 11/09/23 11/09/23 Range/Units 15:51 17:13 17:15 WBC (4.8-10.8) K/ul RBC (4.20-5.40) M/uL Hgb (12.0-16.0) g/dl Hct (37.0-47.0) % MCV (80.0-100.0) fL MCH (25.0-34.0) pg MCHC (32.0-36.0) g/dL RDW Std Deviation (36.4-46.3) fL RDW Coeff of Vikas (11.5-14.5) % Plt Count (130-400) K/uL MPV (9.4-12.4) fL Immature Gran % (Auto) % Neut % (Auto) % Lymph % (Auto) % [place] % (Auto) % Eos % (Auto) % Baso % (Auto) % Neut # (Auto) (1.40-6.50) K/uL Lymph # (Auto) (1.20-3.40) K/uL [place] # (Auto) (0.11-0.59) K/uL Eos # (Auto) (0.00-0.50) K/uL Baso # (Auto) (0.00-0.20) K/uL Immature Gran # (Auto) (0.01-0.20) K/uL Anisocytosis Sodium (136-145) mmol/L Potassium (3.5-5.1) mmol/L Chloride (98-107) mmol/L Carbon Dioxide (21-32) mmol/L Anion Gap (3-11) BUN (6-23) mg/dl Creatinine (0.6-1.2) mg/dl Est Cr Clr Drug Dosing ml/min Est GFR ( Amer) ml/min Est GFR (Non-Af Amer) ml/min BUN/Creatinine Ratio (10-20) Glucose (70-99(Fasting)) mg/dl POC Glucose 60 L* 59 L* (70-99) mg/dl Osmolality (280-300) mOsm/kg Lactate (0.4-2.0) mmol/L Calcium (8.6-10.3) mg/dl Magnesium (1.7-2.4) mg/dl Total Bilirubin (0.2-1.0) mg/dl Direct Bilirubin (0-0.2) mg/dl AST (13-39) U/L ALT (7-52) U/L Alkaline Phosphatase (34-104) U/L Troponin I High Sens 43.2 H (0-14) pg/ml Total Protein (6.0-8.3) gm/dl Albumin (3.4-5.0) gm/dl Procalcitonin (0-0.5) ng/ml Random Cortisol mcg/dl Urine Color Urine Appearance (Clear) Urine pH (4.5-7.5) Ur Specific [place] (1.000-1.030) Urine Protein (Negative) Urine Glucose (UA) (Negative) Urine Ketones (Negative) Urine Blood (Negative) Urine Nitrite (Negative) Urine Bilirubin (Negative) Urine Urobilinogen (Negative) Ur Leukocyte Esterase (Negative) Urine WBC (Auto) (0-5) /hpf Urine RBC (Auto) (0-2) /hpf U Hyaline Cast (Auto) (0-2) /lpf U Epithel Cells (Auto) (0-2) /hpf Urine Bacteria (Auto) (None Seen) Enterobacterales (PCR) (NotDetected) E. coli (PCR) (NotDetected) mcr-1 Colistin Res Gene PCR (NotDetected) blaIMP Car res Gene PCR (NotDetected) KPC-Carbap Res Gene PCR (NotDetected) blaNDM Car Res Gene PCR (NotDetected) OXA-48 Carbapenem Resis Gene (PCR) (NotDetected) blaVIM Car Res Gene PCR (NotDetected) CTX-M Gene Resistance (PCR) (NotDetected) Bld Cult ID Panel PCR (NotDetected) 11/09/23 11/09/23 Range/Units 17:58 18:18 WBC (4.8-10.8) K/ul RBC (4.20-5.40) M/uL Hgb (12.0-16.0) g/dl Hct (37.0-47.0) % MCV (80.0-100.0) fL MCH (25.0-34.0) pg MCHC (32.0-36.0) g/dL RDW Std Deviation (36.4-46.3) fL RDW Coeff of Vikas (11.5-14.5) % Plt Count (130-400) K/uL MPV (9.4-12.4) fL Immature Gran % (Auto) % Neut % (Auto) % Lymph % (Auto) % [place] % (Auto) % Eos % (Auto) % Baso % (Auto) % Neut # (Auto) (1.40-6.50) K/uL Lymph # (Auto) (1.20-3.40) K/uL [place] # (Auto) (0.11-0.59) K/uL Eos # (Auto) (0.00-0.50) K/uL Baso # (Auto) (0.00-0.20) K/uL Immature Gran # (Auto) (0.01-0.20) K/uL Anisocytosis Sodium 121 L (136-145) mmol/L Potassium 4.9 (3.5-5.1) mmol/L Chloride 92 L (98-107) mmol/L Carbon Dioxide 19 L (21-32) mmol/L Anion Gap 10 (3-11) BUN 34 H (6-23) mg/dl Creatinine 0.90 (0.6-1.2) mg/dl Est Cr Clr Drug Dosing 66.7 ml/min Est GFR ( Amer) 74.0 ml/min Est GFR (Non-Af Amer) 63.9 ml/min BUN/Creatinine Ratio 37.8 H (10-20) Glucose 117 H (70-99(Fasting)) mg/dl POC Glucose 109 H (70-99) mg/dl Osmolality 271 L (280-300) mOsm/kg Lactate (0.4-2.0) mmol/L Calcium 7.3 L (8.6-10.3) mg/dl Magnesium (1.7-2.4) mg/dl Total Bilirubin (0.2-1.0) mg/dl Direct Bilirubin (0-0.2) mg/dl AST (13-39) U/L ALT (7-52) U/L Alkaline Phosphatase (34-104) U/L Troponin I High Sens (0-14) pg/ml Total Protein (6.0-8.3) gm/dl Albumin (3.4-5.0) gm/dl Procalcitonin (0-0.5) ng/ml Random Cortisol 20.83 mcg/dl Urine Color Urine Appearance (Clear) Urine pH (4.5-7.5) Ur Specific [place] (1.000-1.030) Urine Protein (Negative) Urine Glucose (UA) (Negative) Urine Ketones (Negative) Urine Blood (Negative) Urine Nitrite (Negative) Urine Bilirubin (Negative) Urine Urobilinogen (Negative) Ur Leukocyte Esterase (Negative) Urine WBC (Auto) (0-5) /hpf Urine RBC (Auto) (0-2) /hpf U Hyaline Cast (Auto) (0-2) /lpf U Epithel Cells (Auto) (0-2) /hpf Urine Bacteria (Auto) (None Seen) Enterobacterales (PCR) (NotDetected) E. coli (PCR) (NotDetected) mcr-1 Colistin Res Gene PCR (NotDetected) blaIMP Car res Gene PCR (NotDetected) KPC-Carbap Res Gene PCR (NotDetected) blaNDM Car Res Gene PCR (NotDetected) OXA-48 Carbapenem Resis Gene (PCR) (NotDetected) blaVIM Car Res Gene PCR (NotDetected) CTX-M Gene Resistance (PCR) (NotDetected) Bld Cult ID Panel PCR (NotDetected) Administered Medications Aspirin (Aspirin 81 Mg Ectab) 81 mg PO HS SAAD Stop: 12/09/23 20:59 Last Admin: 11/09/23 22:41 Dose: 81 mg Documented By: ZACKERY Atorvastatin Calcium (Atorvastatin 40 Mg Tab) 80 mg PO HS SAAD Stop: 12/09/23 20:59 Last Admin: 11/09/23 22:41 Dose: 80 mg Documented By: ZACKERY Dextrose (Dextrose 50% 50 Ml Syringe) 25 - 50 ml IV UD PRN; Protocol PRN Reason: Hypoglycemia Protocol Stop: 12/09/23 17:00 Last Admin: 11/09/23 17:21 Dose: 50 ml Documented By: THOMAS Gabapentin (Gabapentin 300 Mg Cap) 300 mg PO TID SAAD Stop: 12/09/23 20:59 Last Admin: 11/10/23 15:05 Dose: 300 mg Documented By: Admin: 11/10/23 09:09 Dose: Not Given Documented By: Admin: 11/09/23 22:41 Dose: 300 mg Documented By: MarquesT Hydrocortisone Sodium (Succinate 50 mg/ Syringe) 1 mls @ 4 mls/min IV Q8H SAAD Stop: 12/09/23 22:59 Last Admin: 11/10/23 15:05 Dose: 4 mls/min Documented By: Admin: 11/10/23 05:49 Dose: 4 mls/min Documented By: Admin: 11/09/23 23:14 Dose: 4 mls/min Documented By: ZACKERY Ceftriaxone Sodium (Rocephin) 1,000 mg in 50 mls @ 100 mls/hr IV Q24H SAAD Stop: 11/24/23 09:59 Last Infusion: 11/10/23 12:07 Dose: Infused Documented By: Admin: 11/10/23 11:13 Dose: 100 mls/hr Documented By: FELA Insulin Aspart (Insulin Aspart Per Unit Charge) 0 units SC ACHS [facility] Stop: 12/09/23 20:59 Last Admin: 11/10/23 12:05 Dose: Not Given Documented By: Admin: 11/10/23 08:22 Dose: Not Given Documented By: Admin: 11/09/23 22:48 Dose: Not Given Documented By: MarquesT Insulin Glargine (Lantus Per Unit Charge) 5 units SQ BID [facility] Stop: 12/09/23 20:59 Last Admin: 11/10/23 08:24 Dose: 5 units Documented By: FELA Co-signed By: AMB Admin: 11/09/23 22:48 Dose: 5 units Documented By: ZACKERY Co-signed By: ARR Magnesium Oxide (Magnesium Oxide 400 Mg Tab) 400 mg PO BID [facility] Stop: 12/09/23 20:59 Last Admin: 11/10/23 09:09 Dose: Not Given Documented By: Admin: 11/09/23 22:41 Dose: 400 mg Documented By: ZACKERY Mirtazapine (Mirtazapine Tab 15 Mg Tab) 30 mg PO HS [facility] Stop: 12/09/23 20:59 Last Admin: 11/09/23 22:40 Dose: 30 mg Documented By: ZACKERY Pantoprazole Sodium (Pantoprazole 40 Mg Tab) 40 mg PO BID SAAD Stop: 12/09/23 20:59 Last Admin: 11/10/23 09:09 Dose: Not Given Documented By: Admin: 11/09/23 22:42 Dose: 40 mg Documented By: ZACKERY Polyethylene Glycol (Polyethylene (Miralax) 17 Gm Pack) 17 gm PO DAILY SAAD Stop: 12/10/23 08:59 Last Admin: 11/10/23 09:09 Dose: Not Given Documented By: FELA Quetiapine Fumarate (Quetiapine Fumarate 100 Mg Tablet) 100 mg PO HS SAAD Stop: 12/09/23 20:59 Last Admin: 11/09/23 22:41 Dose: 100 mg Documented By: ZACKERY Senna/Docusate Sodium (Docusate Sodium/Senna 50/8.6mg Tab) 1 tab PO BID SAAD Stop: 12/09/23 20:59 Last Admin: 11/10/23 09:09 Dose: Not Given Documented By: Admin: 11/09/23 22:41 Dose: 1 tab Documented By: ZACKERY Discontinued Medications Gr Syrup (Gr Syrup 5 Ml Udp) 5 ml PO Q6 [facility] Stop: 11/20/23 00:00 Last Admin: 11/09/23 23:14 Dose: 5 ml Documented By: ZACKERY Sodium Chloride (Nss) 500 mls @ 999 mls/hr IV .Q31M SAAD Stop: 11/09/23 14:15 Last Infusion: 11/09/23 16:01 Dose: Infused Documented By: Admin: 11/09/23 14:29 Dose: 999 mls/hr Documented By: ASUNCION Piperacillin Sod/Tazobactam Sod (Zosyn) 4.5 gm in 100 mls @ 200 mls/hr IV NOW ONE Stop: 11/09/23 14:16 Last Infusion: 11/09/23 16:01 Dose: Infused Documented By: Admin: 11/09/23 14:40 Dose: 200 mls/hr Documented By: ASUNCION Dextrose/Lactated Ringer's (D5w And Lactated Ringers) 1,000 mls @ 125 mls/hr IV .Q8H [facility] Stop: 11/10/23 01:44 Last Infusion: 11/09/23 23:14 Dose: Infused Documented By: Admin: 11/09/23 19:08 Dose: 125 mls/hr Documented By: THOMAS Lactated Ringer's (Lr) 500 mls @ 999 mls/hr IV .Q31M ONE Stop: 11/09/23 19:01 Last Infusion: 11/09/23 20:01 Dose: Infused Documented By: Admin: 11/09/23 18:31 Dose: 999 mls/hr Documented By: THOMAS Cefepime HCl 2,000 mg/ Syringe 20 mls @ 5 mls/min IV Q12H [facility]; Protocol Stop: 11/19/23 20:59 Last Admin: 11/09/23 22:40 Dose: 5 mls/min Documented By: ZACKERY Norepinephrine Bitartrate (Levophed/D5w) 4 mg in 250 mls @ 0 mls/hr IV .Q0M SAAD; Protocol Stop: 12/09/23 22:29 Last Titration: 11/10/23 09:12 Dose: Infused Documented By: Titration: 11/10/23 05:00 Dose: 0 mcg/kg/min, 0 mls/hr Documented By: Titration: 11/10/23 04:21 Dose: 0.03 mcg/kg/min, 10.7 mls/hr Documented By: Admin: 11/09/23 23:14 Dose: 0.05 mcg/kg/min, 17.9 mls/hr Documented By: ZACKERY Co-signed By: SHAHID Cefepime HCl 2,000 mg/ Syringe 20 mls @ 5 mls/min IV Q8H [facility]; Protocol Stop: 11/20/23 05:59 Last Admin: 11/10/23 05:49 Dose: 5 mls/min Documented By: ZACKERY Calcium Gluconate () 1,000 mg in 60 mls @ 240 mls/hr IV Q15M SAAD Stop: 11/10/23 10:59 Last Infusion: 11/10/23 11:18 Dose: Infused Documented By: Admin: 11/10/23 11:00 Dose: 240 mls/hr Documented By: Infusion: 11/10/23 10:59 Dose: Infused Documented By: Admin: 11/10/23 10:44 Dose: 240 mls/hr Documented By: FELA Ioversol (Optiray 320 100ml) 94 ml IV ONCE ONE Stop: 11/09/23 15:28 Last Admin: 11/09/23 15:28 Dose: 94 ml Documented By: RAN Norepinephrine Bitartrate (Norepinephrine/D5w 4 Mg/250 Ml) Confirm Administered Dose 4 mg IV .STK-MED ONE Stop: 11/09/23 22:32 Last Admin: 11/09/23 23:11 Dose: Not Given Documented By: ZACKERY Vancomycin HCl (Vancomycin Hcl 125 Mg/2.5ml Soln) 125 mg PO Q6 SAAD Stop: 11/12/23 00:00 Last Admin: 11/09/23 23:15 Dose: 125 mg Documented By: ZACKERY Discharge Plan Visit Data Chief Complaint: Weakness ED Provider: Cristofer Black Discharge Problem: Sepsis, Weakness, Elevated troponin, Acute on chronic hypoxic respiratory failure Patient Disposition: Admitted As Inpatient Discharge Instructions Interventions: ED Discharge Assessment Last Done: 11/09/23 19:36 Discharge Problem: Sepsis Qualifiers: Sepsis type: sepsis due to unspecified organism Sepsis acute organ dysfunction status: with acute organ dysfunction Severe sepsis acute organ dysfunction type: unspecified Severe sepsis shock status: unspecified Qualified Code(s): A41.9 - Sepsis, unspecified organism
--- NOTE | 2023-11-09 14:19 | XRay Report ---
XR chest 1V portable CLINICAL HISTORY: Sepsis TECHNIQUE: Single frontal radiograph of the chest was obtained. Comparison: Comparison is made to chest radiograph 09/14/2023 FINDINGS: Right reverse shoulder arthroplasty noted. Cardiomegaly is noted. Faint bibasilar airspace opacities are seen. Vascular prominence is again seen. No evidence of pleural effusion or pneumothorax. IMPRESSION: Cardiomegaly and mild pulmonary edema. Faint bibasilar airspace opacities likely represent pneumonia, somewhat less extensive than in the prior exam. ACT 112: Negative or not required by law. Electronically signed by: Jerry White M.D. 11/09/2023 2:18 PM
[2023-11-09 14:24] LABS: Albumin Level 2.6 gm/dl (3.4-5.0); BUN Creatinine Ratio 31.5 (10-20); Bilirubin Direct 0.1 mg/dl (0-0.2); Bilirubin,Total 0.6 mg/dl (0.2-1.0); Calcium 8.2 mg/dl (8.6-10.3); Creatinine Clr Calc Pharmacy 55.6 ml/min; Est GFR (African American) 59.4 ml/min; Est GFR (Non-African American) 51.2 ml/min; Potassium 5.4 mmol/L (3.5-5.1)
[2023-11-09 14:25] LABS: Anisocytosis Present; Basophils # (auto) 0.07 K/uL (0.00-0.20); Basophils % (auto) 0.5 %; Eosinophils # (auto) 0.01 K/uL (0.00-0.50); Eosinophils % (auto) 0.1 %; Hematocrit (blood only) 45.6 % (37.0-47.0); Hemoglobin 15.9 g/dl (12.0-16.0); Immature Granulocytes # (auto) 0.09 K/uL (0.01-0.20); Immature Granulocytes % (auto) 0.6 %; Lymphocytes # (auto) 0.72 K/uL (1.20-3.40); Lymphocytes % (auto) 4.8 %; Mean Corpuscular Hemoglobin 29.1 pg (25.0-34.0); Mean Corpuscular Hgb Conc 34.9 g/dL (32.0-36.0); Mean Corpuscular Volume 83.5 fL (80.0-100.0); Mean Platelet Volume 8.5 fL (9.4-12.4); Monocytes # (auto) 0.36 K/uL (0.11-0.59); Monocytes % (auto) 2.4 %; Neutrophils # (auto) 13.87 K/uL (1.40-6.50); Neutrophils % (auto) 91.6 %; Platelet Count 465 K/uL (130-400); RDW Coefficient of Variation 21.5 % (11.5-14.5); RDW Standard Deviation 64.3 fL (36.4-46.3); Red Blood Count 5.46 M/uL (4.20-5.40); White Blood Count 15.12 K/ul (4.8-10.8)
[2023-11-09 14:27] LABS: Troponin I High Sensitivity 48.6 pg/ml (0-14)
[2023-11-09] MEDS: SODIUM CHLORIDE 0.9% 500 ML IV SCH (14:29)
[2023-11-09] MEDS: PIPERACILLIN/TAZOBACTAM 4.5 GM/100 ML BAG IV ONE (14:40)
[2023-11-09 15:24] LABS: Appearance Urine Turbid (Clear); Bacteria Urine Automated 4+ (None Seen); Bilirubin Urine 1+ (Negative); Blood Urine 2+ (Negative); Color Urine Dark Yellow; Glucose Urine UA Negative (Negative); Ketones Urine Trace (Negative); Leukocyte Esterase Urine 3+ (Negative); Nitrite Urine Negative (Negative); Protein Urine 1+ (Negative); RBC Urine Automated 0-2 /hpf (0-2); Specific Gravity Urine 1.014 (1.000-1.030); Urobilinogen Urine Negative (Negative); WBC Urine Automated >50 /hpf (0-5); pH Urine 5.5 (4.5-7.5)
[2023-11-09] MEDS: OPTIRAY 320 100ml IV ONE (15:28)
--- NOTE | 2023-11-09 15:55 | CT Scan Report ---
CT abd pelvis IV con only CLINICAL HISTORY: diffuse ab pain TECHNIQUE: Helical axial images of the abdomen and pelvis were obtained and displayed. Automated dose lowering techniques and/or adjustment according to patient size were utilized for this exam. This e xam was performed with intravenous contrast. CT DOSE: 1563.68 mGy.cm COMPARISON: Comparison is made to CT abdomen pelvis 08/01/2021 FINDINGS: Lower chest: Small left pleural effusion is seen atelectasis is seen. Liver: Unchanged nodular contour of the liver. Gallbladder and biliary tree: Patient is status post cholecystectomy. No intra- or extrahepatic bilia ry ductal dilation. Pancreas: Unremarkable, no focal lesions. Spleen: Unremarkable. Adrenals: Unremarkable. Kidneys and ureters: Unremarkable. Bladder: Deleon catheter is seen. Reproductive organs: Unremarkable. Bowel: Unremarkable. Lymph nodes Retroperitoneal: Unremarkable. Pelvic: Unremarkable. Mesenteric: Unremarkable. Peritoneum: Normal. Vessels: Atherosclerotic calcifications are seen. Abdominal wall: A large ventral hernia containing multiple loops of bowel. Bones: Degenerative changes in the visualized spine. L3 compression deformity is unchanged. IMPRESSION: No acute abnormalities to explain diffuse abdominal pain. Large ventral hernia is unchanged. ACT 112: Negative or not required by law. Electronically signed by: Jerry White M.D. 11/09/2023 3:53 PM
--- NOTE | 2023-11-09 16:20 | History & Physical Report ---
Date of Service November 09, 2023 Assessment & Plan (1) Sepsis: Plan: Urosepsis Lactate 1.4-->2.4 on arrival 1L Fluids given in the ED, but 30cc/kg bolus deferred in the setting of hypervolemia, volume overload, and diastolic HF Random cortisol ordered, pending VBG ordered, pending Patient may require pressors given hypervolemia and CHF Vancomycin p.o. + cefepime IV Follow blood cultures (2) Hypotension: Plan: Patient became hypotensive in the ED (3) Acute UTI (urinary tract infection): Plan: Leukocytosis at 15.12 with neutrophil predominance UA positive Zosyn given in the ED Cefepime (as above) Follow UCx (4) Hyponatremia: Plan: Na 120-->121 on admission Urine Osm, Serum Osm, and Urine Na ordered, pending Likely secondary to hypervolemic CHF and volume retention Trend BMP (5) Diabetes mellitus type 2, uncontrolled: Plan: Glucose 61 on arrival Last A1c at 4.6% on 05/25/2022 Glucose 61 on admission Patient's Lantus was recently cut down from 10u BID --> 10u HS Lantus 5 u BID while inpatient SSI; with target BSG range 110-140mg/dL, CF 40, carb ratio 15 T2DM diet BSG ACHS Adjust regimen as needed (6) Chronic respiratory failure with hypoxia and hypercapnia: Plan: On 4 L NC at baseline Continuous pulse oximetry Titrate supplemental oxygen as needed (7) Stage II pressure ulcer: Plan: Wound care nurse consult Daily wound care (8) Hx of Clostridium difficile infection: Plan: Patient recently completed course of Flagyl x 14 days Will cover with vanco p.o. for now (9) Chronic right-sided congestive heart failure: Plan: EF 60-65% on last echo Swelling in arms Recommend diuresis once infection is under control, as patient appears volume overloaded (10) Hyperkalemia: Plan: Resolved; K 5.4 at time of admission (11) Elevated troponin: (12) Weakness generalized: (13) Chronic obstructive pulmonary disease: Plan Disposition: Admit to ICU Conditional code (No CPR, but patient okay with intubation if required) AHA, low-sodium, T2DM diet VTE PPx: Will defer for now History of Present Illness Chief Complaint: Weakness Primary Care Provider: Caryn Avalos MD Traci is a 73yo female with PMH of T2DM, anxiety, depression, HLD, HTN, stage III pressure ulcer, CHF, encephalopathy, subarachnoid hemorrhage, septic shock, NSTEMI, cor pulmonale, and palliative care consultations. She presented from [facility] for frequent falls and worsening fatigue on 11/08. Patient's family is at the bedside and provide most of the history, as patient is very lethargic at this time. Family reports that she came in for generalized weakness, and loss of appetite. She has been on a gradual decline since her hospitalization at [facility] in August 2023, that has involved a broken foot, palliative care talks, rehab at [facility], and most recently a C. difficile infection treated with metronidazole x 14 days. Patient did not take her regular morning medications today; she has not had any of her insulin as well. Only recent change in medications is that she was told to cut her Lantus from 10u BID --> 10u HS. Patient also notes some swelling in her arms over the past few days; she used to take Lasix, but is not currently on a diuretic. Patient previously had abdominal pain and rectal pain secondary to her C. difficile but this resolved shortly after starting antibiotics. Patient's daughter does note extensive history of severe iron deficiency anemia requiring iron infusions every month; also notes history of significant GI bleed, for which she is on Protonix. Patient had an A/P CT done for an internal bleed, and opted not to go with surgery. Discussion with patient and patient's family regarding current CODE STATUS, which has changed multiple times in the past few months. Patient has been on a ventilator in the past, and is okay with artificial ventilation if needed, however after discussion of risks and benefits, she would not like CPR moving forward; conditional code. Patient had a new Deleon placed in the ED at time of admission. She is a former tobacco cigarette smoker; 1 PPD. No recent alcohol use. No recreational drug use. Patient is on continuous supplemental oxygen for L NC at baseline. Patient is hypertensive at 113 bpm at time of admission; SpO2 97% on 4L NC. ED Course: Zosyn 4.5 g IV NSS 500 mL IV ROS: Patient endorses body aches (everywhere she touches hurts), SOB at rest, nausea, loss of appetite, vomiting x 1 episode, bowel/bladder incontinence x 2 months, and neuropathy in the lower extremities. Patient denies fever, chills, night-sweats, chest pain, chest palpitations, cough, abdominal/rectal pain (resolved; originally secondary to recent C-diff), burning sensation in the groin, or saddle anesthesia. Allergies Allergy/AdvReac Type Severity Reaction Status Date / Time latex Allergy Severe 2ND DEGREE Verified 08/23/23 01:52 BURN FROM BANDAGE adhesive Allergy Intermediate RASH Verified 08/23/23 01:52 Home Medications Medication Instructions Recorded Confirmed Type aspirin 81 mg tablet,delayed 81 mg PO HS 10/30/18 11/09/23 History release (Malcom Low Dose Aspirin) atorvastatin 80 mg tablet (Lipitor) 80 mg PO HS 10/30/18 11/09/23 History gabapentin 300 mg capsule 300 mg PO TID 10/30/18 11/09/23 History quetiapine 100 mg tablet 100 mg PO HS 12/13/21 11/09/23 History magnesium oxide 400 mg (241.3 mg 400 mg PO BID #20 tabs 08/20/23 11/09/23 Rx magnesium) tablet pantoprazole 40 mg tablet,delayed 40 mg PO BID #30 tabs 08/20/23 11/09/23 Rx release polyethylene glycol 3350 17 gram 17 g PO DAILY #14 ea 08/20/23 11/09/23 Rx oral powder packet (Miralax) sennosides 8.6 mg-docusate sodium 1 tab PO BID #60 tabs 08/20/23 11/09/23 Rx 50 mg tablet (Senokot-S) acetaminophen 325 mg tablet 650 mg PO Q4H PRN PAIN/FEVER=>100 08/23/23 11/09/23 History (Tylenol) docusate sodium 100 mg capsule 100 mg PO DAILY PRN Constipation 08/23/23 11/09/23 History (Colace) ipratropium 0.5 mg-albuterol 3 mg 3 ml inhalation Q6H PRN Dyspnea 08/23/23 11/09/23 History (2.5 mg base)/3 mL nebulization soln insulin aspart U-100 100 unit/mL 0.1 unit (0.001 mL) SC ACHS #10 mL 09/05/23 11/09/23 Rx subcutaneous solution (Novolog U-100 Insulin aspart) insulin glargine 100 unit/mL 10 unit (0.1 mL) subcut BID #30 mL 09/05/23 11/09/23 Rx subcutaneous solution (Lantus U-100 Insulin) insulin glargine-yfgn 100 unit/mL 0 unit subcut DAILY 11/09/23 11/09/23 History (3 mL) subcutaneous pen (Semglee (insulin glargine-yfgn) Pen) metformin 500 mg tablet 500 mg PO BID 11/09/23 11/09/23 History mirtazapine 30 mg tablet 30 mg PO HS 11/09/23 11/09/23 History sitagliptin phosphate 100 mg 100 mg PO DAILY 11/09/23 11/09/23 History tablet (Januvia) Past Med/Surg History Medical History Impaired insight Dyspnea and respiratory abnormalities Advanced care planning/counseling discussion Palliative care by specialist Weakness generalized Cancer related pain Macrocytic anemia Shortness of breath Palliative care encounter Hyponatremia Complicated UTI (urinary tract infection) H/O defect LEFT ARM Diabetes mellitus, type 2 NIDDM Temporomandibular joint disorder NO PROBLEMS RECENTLY. Glaucoma WELL CONTROLLED Anxiety Depression Peripheral neuropathy BILATERAL FEET Hyperlipidemia Hypertension Chronic obstructive pulmonary disease Surgical History Port-A-Cath in place (08/17/23) Aport Insertion - Avery Kirkpatrick, DO S/P JALIL-BSO History of total shoulder replacement RIGHT History of incision and drainage UMBILICAL ABSCESS Hx of umbilical hernia repair X4 -- WEARS SUPPORT BAND DAILY History of colonoscopy History of cholecystectomy History of appendectomy S/P tonsillectomy and adenoidectomy Family History Mother Diabetes mellitus, type 2 Aunt Diabetes mellitus, type 2 Social History Smoking Status: Former smoker Tobacco Type: Cigarettes Cigarettes Per Day: 20; Second Hand Exposure: No; Do You Dip or Chew Tobacco: No; Hx Alcohol Use: No Hx Substance Use: No Preferred Language: Mongolian Communication Ability: Effective Line Lead Required: No Beliefs That Will Affect Care: None marital status: Current Living Situation: Spouse Current Living Situation Comment: Lives at home with current occupational status: retired Feels Safe at Home: Yes Assistive Devices: Hospital Bed and Mechanical Lift Review of Systems 2 Review of Systems: See HPI above Physical Exam 2 Physical Exam: General: no acute distress; lethargic; non-toxic appearing; well-nourished; cooperative HEENT: normocephalic, atraumatic; no scleral icterus; PERRLA w/ EOMs intact; moist mucus membrane; vision and hearing grossly intact Neck: supple; no lymphadenopathy; trachea midline Skin: warm, dry without signs of tenting; no cyanosis; no rashes, bruising, lesions, or erythema noted CV: chest wall NTP; RRR; S1/S2 normal; no murmurs/rubs/gallops; pulses intact and symmetric at radial, DP, and PT Lungs: mild acute respiratory distress; symmetrical chest wall expansion; clear breath sounds across all lung rodgers w/o adventitious sounds; no wheezing ABD: Soft, NTP; BS present; no rebound/guarding; abdominal distention secondary to body habitus; multiple abdominal hernias MSK: congenital deformity of left arm; no tics or fasciculations; minimal edema noted in the LEs b/l, nonerythematous Back: Stage II pressure ulcer above the left upper sacrum (see photo below) Neuro: A&Ox3; normal mood and affect; fluent speech; no focal deficits; sensation grossly intact in the LEs b/l Results & Data Results & Data Vital Signs (Past 12 Hours) Vital Signs Temp Pulse Pulse Resp BP BP Pulse Ox 11/09/23 14:34 113 H 21 103/71 97 11/09/23 14:30 101 H 14 93 11/09/23 14:30 103/71 11/09/23 14:00 98 H 20 91 11/09/23 14:00 114/66 11/09/23 13:35 113 H 11/09/23 13:30 115 H 22 11/09/23 13:25 36.7 C 112 H 16 99/67 L 89 L 11/09/23 13:20 128 H 17 92 O2 Del Method O2 Flow Rate 11/09/23 14:34 Nasal Cannula 4 11/09/23 14:30 11/09/23 14:30 11/09/23 14:00 11/09/23 14:00 11/09/23 13:35 11/09/23 13:30 11/09/23 13:25 Nasal Cannula 4 11/09/23 13:20 Laboratory Results Abnormal lab results 11/09/23 11/09/23 Range/Units 13:40 13:47 WBC 15.12 H (4.8-10.8) K/ul RBC 5.46 H (4.20-5.40) M/uL RDW Std Deviation 64.3 H (36.4-46.3) fL RDW Coeff of Vikas 21.5 H (11.5-14.5) % Plt Count 465 H (130-400) K/uL MPV 8.5 L (9.4-12.4) fL Neut # (Auto) 13.87 H (1.40-6.50) K/uL Lymph # (Auto) 0.72 L (1.20-3.40) K/uL Sodium 120 L (136-145) mmol/L Potassium 5.4 H (3.5-5.1) mmol/L Chloride 87 L (98-107) mmol/L Anion Gap 12 H (3-11) BUN 34 H (6-23) mg/dl BUN/Creatinine Ratio 31.5 H (10-20) Glucose 61 L (70-99(Fasting)) mg/dl Calcium 8.2 L (8.6-10.3) mg/dl AST 72 H (13-39) U/L Alkaline Phosphatase 260 H (34-104) U/L Troponin I High Sens 48.6 H (0-14) pg/ml Albumin 2.6 L (3.4-5.0) gm/dl Procalcitonin 0.51 H (0-0.5) ng/ml Urine Appearance Turbid A (Clear) Urine Protein 1+ H (Negative) Urine Ketones Trace H (Negative) Urine Blood 2+ H (Negative) Urine Bilirubin 1+ H (Negative) Ur Leukocyte Esterase 3+ H (Negative) Urine WBC (Auto) >50 H (0-5) /hpf U Hyaline Cast (Auto) 3-5 H (0-2) /lpf U Epithel Cells (Auto) 6-10 H (0-2) /hpf Urine Bacteria (Auto) 4+ H (None Seen) Diagnostic Findings Chest X-Ray 11/09/23 13:44 XR chest 1V portable CLINICAL HISTORY: Sepsis TECHNIQUE: Single frontal radiograph of the chest was obtained. Comparison: Comparison is made to chest radiograph 09/14/2023 FINDINGS: Right reverse shoulder arthroplasty noted. Cardiomegaly is noted. Faint bibasilar airspace opacities are seen. Vascular prominence is again seen. No evidence of pleural effusion or pneumothorax. IMPRESSION: Cardiomegaly and mild pulmonary edema. Faint bibasilar airspace opacities likely represent pneumonia, somewhat less extensive than in the prior exam. ACT 112: Negative or not required by law. Electronically signed by: Jerry White M.D. 11/09/2023 2:18 PM Abdomen/Pelvis CT 11/09/23 13:47 CT abd pelvis IV con only CLINICAL HISTORY: diffuse ab pain TECHNIQUE: Helical axial images of the abdomen and pelvis were obtained and displayed. Automated dose lowering techniques and/or adjustment according to patient size were utilized for this exam. This exam was performed with intravenous contrast. CT DOSE: 1563.68 mGy.cm COMPARISON: Comparison is made to CT abdomen pelvis 08/01/2021 FINDINGS: Lower chest: Small left pleural effusion is seen atelectasis is seen. Liver: Unchanged nodular contour of the liver. Gallbladder and biliary tree: Patient is status post cholecystectomy. No intra- or extrahepatic biliary ductal dilation. Pancreas: Unremarkable, no focal lesions. Spleen: Unremarkable. Adrenals: Unremarkable. Kidneys and ureters: Unremarkable. Bladder: Deleon catheter is seen. Reproductive organs: Unremarkable. Bowel: Unremarkable. Lymph nodes Retroperitoneal: Unremarkable. Pelvic: Unremarkable. Mesenteric: Unremarkable. Peritoneum: Normal. Vessels: Atherosclerotic calcifications are seen. Abdominal wall: A large ventral hernia containing multiple loops of bowel. Bones: Degenerative changes in the visualized spine. L3 compression deformity is unchanged. IMPRESSION: No acute abnormalities to explain diffuse abdominal pain. Large ventral hernia is unchanged. ACT 112: Negative or not required by law. Electronically signed by: Jerry White M.D. 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 difficile who recently completed 14 days of Flagyl with good clinical response, chronic indwelling Deleon with recurrent UTIs who presents with obvious volume overload, increased weakness, and poor clinical appearance. She has a leukocytosis, procalcitonin is elevated, and urine is overtly infected appearing. CT of her abdomen and pelvis shows no acute abnormalities. She does not have any abdominal pain on exam. Her prior abdominal pain with C. difficile has completely resolved, she has not had recurrent abdominal pain today. No signs of bowel ischemia. Troponin is slightly elevated, BNP is pending. Patient has a commendation of diastolic CHF acute on chronic with total body edema and hyponatremia/hyperosmolality likely due to severe free water retention. She was normotensive earlier in the day, however has since had pressures with a MAP around 7075. Ideally would diurese however given her concurrent urinary tract infection with a leukocytosis and elevated procalcitonin likely has decreased SVR as well. Repeat blood gas [id number] was obtained which showed a pH of 7.386/pCO2 31, bicarb 18.6. repeat lactic was ordered. Discussed with the ICU as she is not acidotic, renal function is at baseline do not feel that she needs pressors at this time, although is also a tenuous candidate for diuresis with her active infection. Recommend treating with antibiotics over the next 24 hours and diuresing when she clinically improves and stabilizes. If however clinically worsens with MAP less than 70, develops an acidosis or elevated lactate, or other signs of impaired perfusion then can be transferred to the ICU for vasopressor treatment with adjunct diuresis. Blood cultures have been ordered, cefepime has been ordered based on prior sensitivities. Patient clinically has had resolution of her C. difficile symptoms and has not had liquid diarrhea however she has just completed treatment of this and is again on antibiotics and is high risk. She was previously treated with Flagyl, will add p.o. vancomycin prophylactically although do not think her current presentation is due to a C. difficile recurrence. NO hx steroid use/AI. Agree with above Addendum: Subsequently with elevated lactate. Given volume overload, BP repeats 80s, evidence of UTI?sepsis --> ICU for pressors and diuresis PG Care Time/CCT Total # of Minutes Spent Total Time Spent with Patient: Total time spent is greater than 50% in coordination of care (as documented) at patient's floor/unit and/or counseling patient: Coding [place] [address] INT INP/OBS CARE 3/75MIN Patient Type Established Medical Decision Making High Complexity Diagnoses Sepsis A41.9 Hypotension I95.9 Acute UTI (urinary tract infection) N39.0 Hyponatremia E87.1 Diabetes mellitus type 2, uncontrolled E11.65 Chronic respiratory failure with hypoxia and hypercapnia J96.11; J96.12 Stage II pressure ulcer L89.92 Hx of Clostridium difficile infection Z86.19 Chronic right-sided congestive heart failure I50.812 Hyperkalemia E87.5 Elevated troponin R79.89 Weakness generalized R53.1 Chronic obstructive pulmonary disease, unspecified COPD type J44.9 COPD type: unspecified COPD (13) Chronic obstructive pulmonary disease COPD type: unspecified COPD Qualified Code(s): J44.9 - Chronic obstructive pulmonary disease, unspecified
[2023-11-09] MEDS ORDERED: CARBOHYDRATES FOR HYPOGLYCEMIA PO PRN (17:01)
[2023-11-09] MEDS ORDERED: GLUCOSE 10 TAB/TUBE PO PRN (17:01)
[2023-11-09] MEDS ORDERED: GLUCOSE 40% GEL 15 GM TUBE PO PRN (17:01)
[2023-11-09] MEDS ORDERED: GLUCAGON FOR INJ 1 MG VIAL SQ PRN (17:01)
[2023-11-09] MEDS: DEXTROSE 50% 50 ML SYRINGE IV PRN (17:21)
[2023-11-09] MEDS: LACTATED RINGER'S 500 ML IV ONE (18:31)
[2023-11-09] MEDS: D5W AND LACTATED RINGERS 1,000 ML IV SCH (19:08)
[2023-11-09 19:21] LABS: BUN Creatinine Ratio 37.8 (10-20); Calcium 7.3 mg/dl (8.6-10.3); Creatinine Clr Calc Pharmacy 66.7 ml/min; Est GFR (Non-African American) 63.9 ml/min; Potassium 4.9 mmol/L (3.5-5.1)
[2023-11-09] MEDS ORDERED: ACETAMINOPHEN 325 MG TAB PO PRN (19:35)
[2023-11-09] MEDS ORDERED: DOCUSATE SODIUM 100 MG CAP PO PRN (19:35)
[2023-11-09] MEDS ORDERED: ALBUT/IPRATROP 3MG/0.5MG NEB 3 ML VIAL INH PRN (19:35)
[2023-11-09] MEDS ORDERED: ONDANSETRON INJ 2 MG/ML 2 ML VIAL IV PRN (19:35)
--- NOTE | 2023-11-09 22:17 | Critical Care Consultation ---
Date of Consultation November 09, 2023 Assessment & Plan (1) Sepsis: Reason Critically Ill: Patient is a 73-year-old female with complex past medical history including chronic hypoxic hypercapnic respiratory failure, morbid obesity, NSTEMI, DM type II, subarachnoid hemorrhage, and previous abdominal surgeries with large ventral hernia. She now presents to the ICU with sepsis/septic shock requiring vasopressor support with Levophed drip. Neuro - Neuropathycontinue gabapentin Anxiety and depressioncontinue Seroquel Cardiac - Hypotensionsuspect sepsis likely playing a role. She did receive 1 L crystalloid bolus with further fluid resuscitation held doing due to congestive changes on chest x-ray and hypoxia in a patient with hypervolemic state. She is currently on low-dose Levophed due to elevated lactic acid with systolics in the 80s. -Random cortisol borderline. Started on 50 mg hydrocortisone every 8 hours. Not previously on Glucocorticoid steroids -Most recent TTE with normal EF, and no significant valvular disease, although previous chest imaging consistent with pulmonary congestion/CHF. - EKG with right bundle branch block which was previously noted on former EKGs. QTc 487. No ST elevations. Troponins downtrending - Careful with further fluid resuscitation given underlying CHF, volume overload, and hypoxia - Will continue low-dose Levophed to maintain MAP greater than 65. May need central line if pressor requirements increase Respiratory - Acute on chronic hypercapnic and hypoxic respiratory failurepatient with history of CHF/cor pulmonale , Presents with volume overload and congestive changes and possible pneumonia on chest x-ray. Currently maintaining oxygen saturation on 4 L nasal cannula without respiratory distress. She does wear oxygen at baseline, and VBG with compensated respiratory acidosis, and baseline CO2 in the 50s. -Previously on Lasix but recently stopped. She appears to be diuresing without diuretics, so we will hold off on Lasix dosage for now considering hypotension. Will maintain MAP greater than 65 to ensure renal perfusion -Will attempt to maintain negative fluid balance. - DuoNeb as needed -See ID for treatment of possible pneumonia with pulmonary coverage. Continue with oxygen support and wean as tolerated. Continuous pulse ox monitoring. GI - Heart healthy diet GERDPPI RENAL/LYTES - Hyponatremiapatient with hypoosmotic hypervolemic hyponatremia with initial sodium of 120. Unsure of etiology at this time with urine studies pending. She was recently stopped on diuretics (Lasix). - Would likely benefit from diuresis, although she seems to be auto diuresing on her own and sodium slowly improving. Goal correction would be 6 to 8 mEq per 24 hours with target of 126-128 tomorrow afternoon. - Will hold on further diuresis for now given hypotension -Will hold off on hypertonic solutions for now as patient seems to be correcting on her own and is currently volume overloaded -Trend Sodium every 4 hrs - Consider nephrology consult if difficulty with correction - Foleystrict I's and O's ENDO - DM type II Currently euglycemic with most recent hemoglobin A1c of 4.6. Will hold oral agents and favor of Lantus/sliding scale. ICU hyperglycemic protocol. -Pharmacy glycemic consult for further management HEME - H&H stable, monitor routine CBC ID - Sepsispossible multi source as patient appears to have bilateral lower lobe consolidations on chest x-ray, and urinalysis with +4 bacteria - Leukocytosis with elevated procalcitonin. Currently afebrile. - Nasal MRSA negative - Recent C. difficile infection and completed Flagyl x 14 days. No diarrhea at this time. - Blood cultures and urine culture pending - Continue cefepime for now LINES/IV ACCESS - Peripheral IVs DVT PROPHYLAXIS - SCDs I have personally spent 47 minutes of critical care time in the direct management of this patient. This is a life/limb threatening event. This includes time spent evaluating patient, direct bedside care, chart review, placing orders, interpretation of diagnostic studies, discussion with consultants, patient, and family members, as well as other required patient management activities. This time is exclusive of all separately billable procedures, and teaching time and separate from and in addition to any other critical care service time. Thank you for allowing us to participate in the care of this patient. Please refer to my attending physician's documentation for any further recommendations. (2) Hypotension: (3) Stage II pressure ulcer: (4) Acute on chronic hypoxic respiratory failure: (5) Acute on chronic diastolic CHF (congestive heart failure): (6) Morbid obesity: (7) Pneumonia: (8) Cor pulmonale: (9) Diabetes mellitus, type 2: (10) Chronic obstructive pulmonary disease: (11) Depression: (12) Anxiety: Supervising Physician Co-Signing Physician Notes Patient seen and examined. EMR reviewed. Discussed with critical care JOE and agree with assessment and plan as noted. Please refer to my progress note from 11/10/2023 for additional details History of Present Illness Attending Physician: Kaiden Grimes MD History of Present Illness Patient is a 73-year-old female with past medical history significant for subarachnoid hemorrhage, DM type II, Chronic hypoxia (on nasal cannula at baseline), anxiety and depression, HTN, HLD, NSTEMI, who is presenting from [facility] with reports of frequent falls and worsening fatigue, and loss of appetite. She was recently treated at [facility] with broken foot and discharged to rehab with C. difficile infection and underwent metronidazole x 14 days. In the emergency department she was noted to be slightly hypotensive, hypoxic with chest x-ray consistent with pulmonary congestion and possible pneumonia. BMP with hypoosmotic hyponatremia with sodium of 120, and appears to be volume overloaded on exam. CT abdomen and pelvis negative for acute intra-abdominal findings. Urinalysis with +4 bacteria consistent with UTI. She did have leukocytosis and elevated procalcitonin, with initial lactate within normal limits. Patient became increasingly hypotensive following 1 L crystalloid bolus, and repeat lactate elevated at 2.4. Patient now being transferred to ICU with Levophed drip. On arrival to the ICU the patient is alert and oriented but somewhat drowsy. She reports burning with urination which started earlier today. She is otherwise asymptomatic and denies headaches, dizziness, syncopal events, fevers, congestion or cough, shortness of breath, chest pain or palpitations, abdominal pain, nausea or vomiting, diarrhea, swelling in hands or feet. Patient to remain in ICU for further management at this time. Allergies Allergy/AdvReac Type Severity Reaction Status Date / Time latex Allergy Severe 2ND DEGREE Verified 08/23/23 01:52 BURN FROM BANDAGE adhesive Allergy Intermediate RASH Verified 08/23/23 01:52 Home Medications Medication Instructions Recorded Confirmed Type aspirin 81 mg tablet,delayed 81 mg PO HS 10/30/18 11/09/23 History release (Malcom Low Dose Aspirin) atorvastatin 80 mg tablet (Lipitor) 80 mg PO HS 10/30/18 11/09/23 History gabapentin 300 mg capsule 300 mg PO TID 10/30/18 11/09/23 History quetiapine 100 mg tablet 100 mg PO HS 12/13/21 11/09/23 History magnesium oxide 400 mg (241.3 mg 400 mg PO BID #20 tabs 08/20/23 11/09/23 Rx magnesium) tablet pantoprazole 40 mg tablet,delayed 40 mg PO BID #30 tabs 08/20/23 11/09/23 Rx release polyethylene glycol 3350 17 gram 17 g PO DAILY #14 ea 08/20/23 11/09/23 Rx oral powder packet (Miralax) sennosides 8.6 mg-docusate sodium 1 tab PO BID #60 tabs 08/20/23 11/09/23 Rx 50 mg tablet (Senokot-S) acetaminophen 325 mg tablet 650 mg PO Q4H PRN PAIN/FEVER=>100 08/23/23 11/09/23 History (Tylenol) docusate sodium 100 mg capsule 100 mg PO DAILY PRN Constipation 08/23/23 11/09/23 History (Colace) ipratropium 0.5 mg-albuterol 3 mg 3 ml inhalation Q6H PRN Dyspnea 08/23/23 11/09/23 History (2.5 mg base)/3 mL nebulization soln insulin aspart U-100 100 unit/mL 0.1 unit (0.001 mL) SC ACHS #10 mL 09/05/23 11/09/23 Rx subcutaneous solution (Novolog U-100 Insulin aspart) insulin glargine 100 unit/mL 10 unit (0.1 mL) subcut BID #30 mL 09/05/23 11/09/23 Rx subcutaneous solution (Lantus U-100 Insulin) insulin glargine-yfgn 100 unit/mL 0 unit subcut DAILY 11/09/23 11/09/23 History (3 mL) subcutaneous pen (Semglee (insulin glargine-yfgn) Pen) metformin 500 mg tablet 500 mg PO BID 11/09/23 11/09/23 History mirtazapine 30 mg tablet 30 mg PO HS 11/09/23 11/09/23 History sitagliptin phosphate 100 mg 100 mg PO DAILY 11/09/23 11/09/23 History tablet (Januvia) Patient History Medical History Impaired insight Dyspnea and respiratory abnormalities Advanced care planning/counseling discussion Palliative care by specialist Weakness generalized Cancer related pain Macrocytic anemia Shortness of breath Palliative care encounter Hyponatremia Complicated UTI (urinary tract infection) H/O defect LEFT ARM Diabetes mellitus, type 2 NIDDM Temporomandibular joint disorder NO PROBLEMS RECENTLY. Glaucoma WELL CONTROLLED Anxiety Depression Peripheral neuropathy BILATERAL FEET Hyperlipidemia Hypertension Chronic obstructive pulmonary disease Surgical History Port-A-Cath in place (08/17/23) Aport Insertion - Avery Kirkpatrick, DO S/P JALIL-BSO History of total shoulder replacement RIGHT History of incision and drainage UMBILICAL ABSCESS Hx of umbilical hernia repair X4 -- WEARS SUPPORT BAND DAILY History of colonoscopy History of cholecystectomy History of appendectomy S/P tonsillectomy and adenoidectomy Family History Mother Diabetes mellitus, type 2 Aunt Diabetes mellitus, type 2 Social History Smoking Status: Former smoker Tobacco Type: Cigarettes Cigarettes Per Day: 20; Smoking End Date: August 2023; Second Hand Exposure: No; Do You Dip or Chew Tobacco: No; Hx Alcohol Use: No Hx Substance Use: No Preferred Language: Albanian Communication Ability: Effective Medical Delivery Driver Required: No Beliefs That Will Affect Care: None marital status: Current Living Situation: Spouse Current Living Situation Comment: Lives at home with current occupational status: retired Other Information That Helps Us Care for You: No Feels Safe at Home: Yes Safety Concerns: Feels Safe At This Time Assistive Devices: Hospital Bed and Mechanical Lift Review of Systems Review of Systems: All systems reviewed & are unremarkable except as noted in HPI & below Physical Exam Constitutional: + obese, cooperative and comfortable Eyes: PERRL, conjunctivae normal, anicteric sclerae ENMT: external ear and nose normal, oropharynx normal Neck: trachea midline, no thyromegaly Respiratory: Lungs clear but bilaterally in upper and lower lobes with rhonchi and coarse crackles auscultated bilaterally in the lung bases. Symmetrical chest wall movement. Nonlabored breathing without respiratory distress. Cardiovascular: Rate/Rhythm: regular rhythm and + tachycardic Heart Sounds: normal S1 and normal S2; no murmur Extremities: no edema Gastrointestinal (Abdomen): Abdomen obese with surgical scars present. Nontender to palpation. Bowel sounds auscultated all 4 quadrants. Musculoskeletal: no cyanosis or clubbing, extremities motor strength 5/5 Skin: no rashes, warm and dry Neurologic: PERRL, EOMI, accommodation nl, no face palsy, no dysarthria Psychiatric: A+Ox3, euthymic affect Genitourinary: Indwelling Deleon catheter present with clear yellow urine in draining tube Results & Data Results & Data Vital Signs (Past 12 Hours) Vital Signs Temp Pulse Pulse Resp BP BP Pulse Ox 11/09/23 21:14 36.5 C 108 H 16 101/69 96 11/09/23 20:24 105 H 17 95/66 L 96 11/09/23 18:18 99 H 14 81/57 L 96 11/09/23 18:14 105 H 16 81/57 L 96 11/09/23 18:10 98 H 18 85/73 L 98 11/09/23 18:00 112 H 14 85/73 L 99 11/09/23 17:42 106 H 11/09/23 17:31 106 H 16 114/62 96 11/09/23 17:01 106 H 19 102/76 94 11/09/23 16:30 102 H 23 112/79 100 11/09/23 16:00 102 H 17 101/75 91 11/09/23 14:34 113 H 21 103/71 97 11/09/23 14:30 101 H 14 93 11/09/23 14:30 103/71 11/09/23 14:00 98 H 20 91 11/09/23 14:00 114/66 11/09/23 13:35 113 H 11/09/23 13:30 115 H 22 11/09/23 13:25 36.7 C 112 H 16 99/67 L 89 L 11/09/23 13:20 128 H 17 92 O2 Del Method O2 Flow Rate 11/09/23 21:14 Nasal Cannula 4 11/09/23 20:24 Nasal Cannula 4 11/09/23 18:18 Nasal Cannula 4 11/09/23 18:14 Room Air 4 11/09/23 18:10 11/09/23 18:00 Nasal Cannula 4 11/09/23 17:42 11/09/23 17:31 Nasal Cannula 4 11/09/23 17:01 Nasal Cannula 4 11/09/23 16:30 Nasal Cannula 4 11/09/23 16:00 Nasal Cannula 4 11/09/23 14:34 Nasal Cannula 4 11/09/23 14:30 11/09/23 14:30 11/09/23 14:00 11/09/23 14:00 11/09/23 13:35 11/09/23 13:30 11/09/23 13:25 Nasal Cannula 4 11/09/23 13:20 Coding Level of Care Code 91967 CRITICAL CARE 1ST 30-74M Diagnoses Sepsis A41.9 Hypotension I95.9 Stage II pressure ulcer L89.92 Acute on chronic hypoxic respiratory failure J96.21 Acute on chronic diastolic CHF (congestive heart failure) I50.33 Morbid obesity E66.01 Pneumonia J18.9 Laterality: left Lung location: upper lobe of lung Pneumonia type: due to unspecified organism Cor pulmonale I27.81 Type 2 diabetes mellitus without complication, without long-term current use of insulin E11.9 Diabetes mellitus complication status: without complication Diabetes mellitus terminal system operator insulin use: without terminal system operator use Chronic obstructive pulmonary disease, unspecified COPD type J44.9 COPD type: unspecified COPD Major depressive disorder, remission status unspecified, unspecified whether recurrent F32.9 Active/Remission status: remission status unspecified Depression Type: major depressive disorder Major depression recurrence: unspecified whether recurrent Anxiety F41.9 (7) Pneumonia Laterality: left Lung location: upper lobe of lung Pneumonia type: due to unspecified organism Qualified Code(s): J18.9 - Pneumonia, unspecified organism (9) Diabetes mellitus, type 2 Diabetes mellitus complication status: without complication Diabetes mellitus terminal system operator insulin use: without terminal system operator use Qualified Code(s): E11.9 - Type 2 diabetes mellitus without complications (10) Chronic obstructive pulmonary disease COPD type: unspecified COPD Qualified Code(s): J44.9 - Chronic obstructive pulmonary disease, unspecified (11) Depression Active/Remission status: remission status unspecified Depression Type: major depressive disorder Major depression recurrence: unspecified whether recurrent Qualified Code(s): F32.9 - Major depressive disorder, single episode, unspecified
[2023-11-09] MEDS ORDERED: STAT IV Infusion **Titration per Protocol STA (22:28)
[2023-11-09] MEDS: CEFEPIME 2,000 MG in SYRINGE 0 ML IV SCH (22:40)
[2023-11-09] MEDS: MIRTAZAPINE TAB 15 MG TAB PO SCH (22:40)
[2023-11-09] MEDS: MAGNESIUM OXIDE 400 MG TAB PO SCH (22:41)
[2023-11-09] MEDS: GABAPENTIN 300 MG CAP PO SCH (22:41)
[2023-11-09] MEDS: DOCUSATE SODIUM/SENNA 50/8.6MG TAB PO SCH (22:41)
[2023-11-09] MEDS: ATORVASTATIN 40 MG TAB PO SCH (22:41)
[2023-11-09] MEDS: ASPIRIN 81 MG ECTAB PO SCH (22:41)
[2023-11-09] MEDS: QUEtiapine FUMARATE 100 MG TABLET PO SCH (22:41)
[2023-11-09] MEDS: PANTOprazole 40 MG TAB PO SCH (22:42)
[2023-11-09] MEDS: INSULIN ASPART PER UNIT CHARGE SC SCH (22:48)
[2023-11-09] MEDS: LANTUS PER UNIT CHARGE SQ SCH (22:48)
[2023-11-09] MEDS: NOREPINEPHRINE/D5W 4 MG/250 ML IV ONE (23:11)
[2023-11-09] MEDS: HYDROCORTISONE SOD 50 MG in SYRINGE 0 ML IV SCH (23:14)
[2023-11-09] MEDS: CHERRY SYRUP 5 ML UDP PO SCH (23:14)
[2023-11-09] MEDS: NOREPINEPHRINE/D5W 4 MG/250 ML PLCT IV SCH (23:14)
[2023-11-09] MEDS: VANCOMYCIN HCL 125 MG/2.5ML SOLN PO SCH (23:15)
[2023-11-09 23:46] LABS: Calcium 7.7 mg/dl (8.6-10.3); Potassium 5.1 mmol/L (3.5-5.1)
[2023-11-09 23:52] LABS: BUN Creatinine Ratio 39.1 (10-20); Creatinine Clr Calc Pharmacy 65.5 ml/min; Est GFR (African American) 77.1 ml/min; Est GFR (Non-African American) 66.6 ml/min
[2023-11-10] MEDS ORDERED: ALBUT/IPRATROP 3MG/0.5MG NEB 3 ML VIAL NEB PRN (01:41)
--- OUTSIDE RECORDS SUMMARY | 2023-11-10 03:25 | External Medical Summary | Continuity of Care Document ---
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 + [phone] Problems Active Problems Provider Date Type II [...] 10/23/2019 Note: Document: 10/26/19 - D ischarge [facility] Ventral incisional hernia Onset: Chronic anemia Onset: 0 Monoplegia of upper limb Andrew Dean DOLLYMAN Onset: 10/04/2020 Anemia CHARLOTTE Dean Onset : 06/17/2021 Hypothyroidism CHARLOTTE Dean Onset : 06/17/2021 Hernia of anterior abdominal wall CHARLOTTE Carrasco Onset: 06/17/2021 Social History Type Date Description Comments Sex Unknown Tobacco Use Reviewed: 02/09/23 Currently Smo kes 1-5 Cigarettes Daily Smoking Status Reviewed: 10/25/23 Currently Smo kes 1-5 Cigarettes Daily Tobacco [...] SIG Qnty Indications Order ing Provider Date Feosqrslrbxcd327en Tablets 1 tablet by mouth three times a day for 14 days 42tabs Caryn Avalos MD 10/25/2023 - 11/04/2023 Hhjqpvrexrf406zf Tablets take one tablet by mouth now repeat as needed 2tabs Caryn Avalos MD 10/25/2023 Semglee (Yfgn)100Unit/ML Solution Pen-Inject Inject 10 units under the skin daily. Unknown 09/28/2023 Metformin XEI452vk Tablets 1 by mouth twice a day 180tabs E11.65 Caryn Avalos MD 09/28/[address] Take 1 tablet by mouth twice a day. 180tabs Caryn Avalos MD 09/28/2023 Ufjasxjvuvr77cq Tablets Take 1 tablet by mouth at bedtime. Unknown 09/28/2023 Magnesium Pzcco617ql Tablets 1 by mouth twice a day. Unknown 09/28/2023 Miralax Mix-In Duc11ql Packet 1 by mouth every day Unknown 09/28/2023 Senokot S8.6-50mg Tablets 2 tablets by mouth twice a day Unknown 09/28/2023 Pabgziyhg6ib Tablets Take 1 Tablet By Mouth Twice Daily as Needed 60tabs F41.1 Caryn Avalos MD 04/13/2023 Krjqmwrt333ts Tablets 1 tablet by mouth at bedtime 135tabs Carny Avalos MD 08/14/2022 Bipap With Mask, Head Gear And SuppliesDevice Please switch patient to nasal pillow 1units G47.33 Caryn Avalos MD 06/19/2022 Albuterol Sulfate OWQ203(90Base) mcg/Act Aerosol take 2 puff as needed for shortness of breath. 8.500gm Caryn Avalos MD 12/20/2021 Onetouch Ultra 2w/Device Kit test sugars as advised dx: e11.65 1units Caryn Avalos MD 08/15/2021 Pen Psquoxm11N X 4 mm Misc Use daily with insulin Dx; E11.65 300units Caryn Avalos MD 08/15/2021 Recliner Lift ChairMisc use as directed 1units Riley Barboza MD 03/04/2021 Test Strips For Glucose MeterStrips test sugars daily and when symptomatic dx: e11.65 (clarity test strips blood glucose 1000) 100units E11.65 Caryn Avalos MD 12/27/2020 E11.51 Gxeqxlh700fj Tablets 1 by mouth every day 90tabs E11.6 5 Caryn Avalos MD 11/16/2020 WheelchairMisc standard wheelchair with cushion and foot plates 1units Riley Barboza MD 10/26/2020 Ipratropium [place]/Albuterol Sulfate0.5-2.5(3)mg/3M L Solution use in nebulizer four times daily 90units Riley Barboza MD 07/30/2020 NebulizerMisc with supplies - use as directed 1units J44.9 Riley Barboza MD 07/16/2020 Abdominal Binder/Elastic LargeMisc 3 band use as directed 2units K43.9 Riley Barboza MD OxygenMisc concentrator continuous at 3 liters /7 with portability via nc 1units J44.9 Caryn Avalos MD 07/16/2020 WheelchairMisc power wheelchair - therapist eval required 1units Riley Barboza MD 07/16/2020 Safety-[place] Safety Syringe/1ML/25G X 5/8"25G X 5/8" 1 ML Misc as directed 12units Riley Barboza MD 12/31/2019 1ML Vanishpoint Tuberculin Syringe 25GX1"25G X 1" 1 ML Misc use with vitamin b12 injections 4units Riley Barboza MD 12/29/2019 Syringe 2-3 ML3ml Misc use to administer cyanocobalamin as prescribed 4units Riley Barboza MD 12/19/2019 Zncxzbeibavvw563xn Tablets 2 tabs three times a day as needed Unknown 10/26/2019 Divdjqywjo942cq Capsules 1 tab by mouth three times a day 270caps Caryn Avalos MD 12/26/2017 Atorvastatin Ppnxerz16qc Tablets 1 by mouth every day 90tabs E78.5 Caryn Avalos MD History Medications Xjmmlbaul151py Tablets 1 by mouth twice a day Unknown 09/28/2023 - 10/02/2023 Eqiptjxbpgpc328ok Tablets take 1 tablet by mouth every day for 10 days 10tabs R06.00 Caryn Avalos MD 07/20/2023 - 07/25/2023 Apgnwekwrgv379oa Tablets take one tablet by mouth as a one-time dose as needed 5tabs Caryn Avalos MD 07/20/2023 - 10/10/2023 Uuqixfengp14ng Tablets two tablets x 5 days then one tablet daily x 5 days 15tabs Caryn Avalos MD 07/20/2023 - 10/01/2023 Medications Administered in Office Medication SIG Qnty Indications Ordering Provider Date Injection Methylprednisolone Acetate 40 MGInjection CHARLOTTE Dean 01/11/2022 Injection Vitamin B-12 Up To 1000 mcgInjection CHARLOTTE Carrasco 01/09/2020 Injection Kenalog 10 MG ND [id number] CHARLOTTE Dean 04/02/2019 Injection Kenalog 10 MG ND [id number] Dalia Guzman PA-C 07/23/2017 Injection Dexamethasone Sodi um Phosphate, 1 MGInjection Amanda Guzman PA-C 07/23/2017 Injection Kenalog 10 MG ND [id number] Dalia Guzman PA-C 04/11/2017 Injection Dexamethasone 1 MGInjection Dalia bush PA-C 04/11/2017 Immunizations CPT Code Status Date Vaccine Lot # [id number] Given 04/13/2023 Sarscov2 Vaccin e 50 mcg/0.5 ML For Im Use 12 Yrs And Older 02140 Given 04/13/2023 RSV Arexvy Vacc Pref Recombinant Adjuvanted EMR Only U-FLU Given 04/13/2023 Influenza,Unspecified 18591 Given 01/30/2023 Tdap (Tetanus, diphtheria & acel. pertussis) Adacel or Boostrix [id number] 31470 Given 04/18/2022 Moderna Sars-Co v-2 (Covid-19) Vaccine, BiValent Booster 12y+ [id number] 07178 Given 04/03/2022 Influenza Vaccine High Do se 0.5ML Age 65 & > [id number] 28614 Given 05/24/2021 Pfizer Sars-Cov -2 (Cov-19) vacc 30mcg/0.3ML 12Y+ EMR Doc Only 05216 Given 05/05/2021 Influenza Virus Vaccine, Quadrivalent (Cciiv4), Derived From 6 Given 09/21/2020 Pfizer Sars-Cov -2 (Cov-19) vacc 30mcg/0.3ML 12Y+ EMR Doc Only 40305 Given 08/31/2020 Pfizer Sars-Cov -2 (Cov-19) vacc 30mcg/0.3ML 12Y+ EMR Doc Only 85130 Given 06/18/2020 Influenza Virus Vaccine, Quadrivalent (Cciiv4), Derived From 3 Given 06/18/2020 Pneumococcal Conjugate-Pr evnar 13 [id number] U-FLU Given 06/18/2020 Influenza,Unspecified 283 849 57707 Given 02/10/2019 Shingrix 11498 Given 02/08/2019 Shingrix 15069 Given 09/17/2018 Shingrix 47796 Given 06/05/2018 Pneumococcal Vaccine/Pneu movax 23 [id number] 87169 Given 03/22/2018 Influenza Virus Vaccine, Quadrivalent (Cciiv4), Derived From 7 Given 07/16/2017 Influenza Virus Vaccine, Quadrivalent, Im Use [id number] U-FLU Given 03/24/2015 Influenza,Unspecified U-FLU Given 04/01/2013 Influenza,Unspecified 53443 Given 04/01/2013 Pneumococcal Vaccine/Pneu movax 23 Vital Signs Date Vital Result Comment 10/25/2023 1:11pm BP Systolic 124 mmHg BP Diastolic 68 mmHg Body Temperature 99.3 F Heart Rate 70 /min Respiratory Rate 24 /min Weight 226.00 lb Weight 102.514 kg Height 64 inches 5'4" BMI (Body Mass Index) 38.8 kg/m2 O2 % BldC Oximetry 95 % [place] Body Weight 120 lb 07/20/2023 3:26pm BP Systolic 126 mmHg BP Diastolic 70 mmHg Body Temperature 99.1 F Heart Rate 70 /min Respiratory Rate 24 /min Weight 246.00 lb Weight 111.586 kg Results Test Acquired Date Facility Test Result H/L Range N ote CBC W/Diff 05/15/2023 [facility]. [address] [place], [place] [id number] [phone] WBC 5.8 10^3/M3 3.1-9.2 RBC 3.77 10^6/M3 3.70-5.50 HGB 12.8 GR/DL 11.5-16.1 HCT 39.7 % 34.5-47.8 MCV 105.1 CUMICR High 82.6-95.8 MCH 34.0 PICOGR High 27.9-32.9 MCHC 32.4 % Low 32.6-35.4 RDW 14.5 % 11.4-14.6 PLT 235 10^3/M3 140-350 MPV 8.2 CUMICR 7.0-10.6 %Neut 73.2 % 40.0-75.0 %Lymph 12.3 % Low 17.0-45.0 %[place]y 10.8 % 1.0-11.0 %Eos 2.6 % 0.0-6.0 %Baso 1.1 % 0.0-2.0 #Neut 4.2 10^3/M3 1.5-8.0 #Lymph 0.7 10^3/M3 Low 0.8-3.2 #[place]y 0.6 10^3/M3 0.0-0.8 #Eos 0.1 10^3/m3 0.0-0.4 #Baso 0.1 10^3/m3 0.0-0.2 Comp. Met 05/15/2023 [facility]. [address] [place] [address] [phone] Glucose 160 mg/dL High 70-110 BUN 21 [...] 2.0-3.4 GFR 105 ML/MIN/1.73SQM >60 Lipid 05/15/2023 [facility]. [address] [place] [address] [phone] Cholesterol 148 mg/dL 0-200 2 Triglyceride 360 mg/dL High 0-150 3 HDLD 43 mg/dL See Comment 4 Measured LDL 63 mg/dL 0-130 5 Calc VLDL 72.0 mg/dL See Comment 6 Chol/HDL 3.4 RATIO See Comment 7 Non-HDL 105 mg/dL See Comment 8 Laboratory test finding 05/15/2023 [facility]. [address] [place] [address] [phone] TSH 1.81 uIU/mL 0.50-6.00 Hba1c 05/15/2023 [facility]. [address] [place] [address] [phone] Macro 1+ A1c 6.30 % 4.70-6.50 9 Microalbumin Urine 05/15/2023 [facility] [address] [place] [address] [phone] Urine Creat COMMENT mg/dL Comment Microalbumin COMMENT mg/dL 0.0-1.8 10 ug/mgCREATININE COMMENT ug/mg Low 0-29 11 Urinalysis 05/15/2023 [facility]. [address] [place] [address] [phone] Color COMMENT 12 Appearance COMMENT Clear Spec.Grav. COMMENT 1.005-1.025 Leukocytes COMMENT Negative Nitrite COMMENT Negative PH COMMENT 6.0-7.5 Protein COMMENT Negative Urine Glucose COMMENT Negative Ketone COMMENT Negative Urobilinogen COMMENT E.U./DL Normal Bilirubin COMMENT Negative Blood COMMENT Negative WBC-U COMMENT /HPF 0-5/HPF RBC-U COMMENT /HPF 0-5/HPF Bacteria COMMENT None Seen Squamous COMMENT /HPF 0-5/HPF Urinalysis,Cult If Indicated 05/15/2023 [facility]. [address] [place] [address] [phone] RFLX Culture COMMENT 1 SPECIMEN SLIGHTLY HE MOLYZED 2 CHOLESTEROL [...] 150-7 90-5 300-12 270-11 240-10 10 *THE [employer] USES MICROALBUMIN/CREATINE RATIO : [...] OR UA TUBES. NEEDS RECOLLECTED AND REORDERED Procedures Date Code Description Status 10/25/2023 3288F Fall Risk Assessment Documen shayan Completed 10/25/2023 1100F PT Screened Futu re Fall Risk >/=2 Falls In Past Yr/1 W/Injury Completed 10/10/2023 G2012 Phone Evaluation/Management By Physician 21-30 Min Completed 10/10/2023 1111F D/C Medications Reconciled W/Current Medications In Outpt MR Completed 10/02/2023 1111F D/C Medications Reconciled W/Current Medications In Outpt MR Completed 05/15/2023 22225 Venipuncture Routine Complet ed 05/15/2023 3078F PVRP Diastolic BP <80 mmHg C ompleted 05/15/2023 3074F PVRP Systolic BP <130 mmHg C ompleted 05/15/2023 3052F Most Recent HG A1c > Equal T o 8.0% & < Equal To 9.0% Completed Medical Devices Description No Information Available Encounters Type Date Location Provider Dx Diagnosis Office Visit 10/25/2023 1:30p Alma Jaimes PA-C Z00.01 Encounter for general adult medical exam w abnormal findings Z91.81 History of falling A04.72 Enterocolitis d/t Cl ostridium difficile, not spcf as recur Office Visit 10/10/2023 10:00a Alma Jaimes PA-C S32.501D Unsp fracture of right pubis, subs for fx w routn heal E11.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 Z99.81 Dependence on supple mental oxygen Office Visit 07/20/2023 11:15a Alma Jaimes PA-C J44.1 Chronic obstructive pulmonary disease w (acute) exacerbation J96.11 Chronic respiratory failure with hypoxia Z99.81 Dependence on supple mental oxygen Office Visit 05/15/2023 2:30p Alma berry PA-C I10 Essential (primary) hypertension E78.5 Hyperlipidemia, unsp ecified E11.9 Type 2 diabetes jaqueline itus without complications F33.1 Major depressive dis order, recurrent, moderate J96.11 Chronic respiratory failure with hypoxia E11.42 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 E66.01 Morbid (severe) obes ity due to excess calories K74.60 Unspecified cirrhosi s of liver Assessments Date Code Description Provider 10/25/2023 Z00.01 Encounter for ge neral adult medical examination with abnormal findings Jose Jaimes PA-C 10/25/2023 Z91.81 History of falling Jose Jaimes PA-C 10/25/2023 A04.72 Enterocolitis du e to Clostridium difficile, not specified as recurrent Jose Jaimes PA-C 10/10/2023 S32.501D Unspecified frac ture of right pubis, subsequent encounter for fracture with routine healing Jose Jaimes PA-C 10/10/2023 E11.42 Type 2 diabetes mellitus with diabetic polyneuropathy Jose Jaimes PA-C 10/10/2023 Z99.81 Dependence on supplemental o xygen Jose Jaimes PA-C 07/20/2023 J44.1 Chronic obstruct arianne pulmonary disease with (acute) exacerbation Jose Jaimes PA-C 07/20/2023 J96.11 Chronic respiratory failure with hypoxia Jose Jaimes PA-C 07/20/2023 Z99.81 Dependence on supplemental o michaelgen Jose Jaimes PA-C 05/15/2023 I10 Essential (primary) [...] cirrhosis of annita er Jose Jaimes PA-C Plan of Treatment 10/25/2023 - Jose Jaimes PA-C* Z00.01 Encounter for general adult medical examination with abnormal findings* Comments:* Refuses any screening recommendations Refuses any vaccinations * Z91.81 History of falling * A04.72 Enterocolitis due to Clostridium difficile, not specified as recurrent * Comments:* Unable to give a stool sample Refuses ER evaluation Patient verbalizes understanding of care plan / instructions. * All* New Medication:* Fluconazole 150 mg - take one tablet by mouth now repeat as needed * Metronidazole 500 mg - 1 tablet by mouth three times a day for 14 days Functional Status Description No Information Available Mental Status Description No Information Available Referrals Description No Information Available
--- OUTSIDE RECORDS SUMMARY | 2023-11-10 03:26 | External Medical Summary | Continuity of Care Document ---
Author Name Unknown Organization [facility] Address [address] [place] [address] Phone [phone] Care Team Providers Care Avionics Test Technician Name Role Phone [facility] Care Team Information Paring Machine Operator [phone] Problems Active Problems Provider Date Type II [...] 10/23/2019 Note: Document: 10/26/19 - D ischarge [facility] [place] Ventral incisional hernia Onset: Chronic anemia Onset: 0 Monoplegia of upper limb Andrew Dean RESTORATIVE COORDINATOR Onset: 10/04/2020 Anemia CHARLOTTE Dean Onset : [...] SIG Qnty Indications Order ing Provider Date Jziwkhpgaizok079st Tablets 1 tablet by mouth three times a day for 14 days 42tabs Caryn Avalos MD 10/25/2023 - 11/04/2023 Maywwtkhwno132ra Tablets take one tablet by mouth now repeat as needed 2tabs Caryn Avalos MD 10/25/2023 Semglee (Yfgn)100Unit/ML Solution Pen-Inject Inject 10 units under the skin daily. Unknown 09/28/2023 Metformin FUQ476ky Tablets 1 by mouth twice a day 180tabs E11.65 Caryn Avalos MD 09/28/[address] Take 1 tablet by mouth twice a day. 180tabs Caryn Avalos MD 09/28/2023 Ueaiygipjmf15on Tablets Take 1 tablet by mouth at bedtime. Unknown 09/28/2023 Magnesium Kylot152zo Tablets 1 by mouth twice a day. Unknown 09/28/2023 Miralax Mix-In Qrj54qq Packet 1 by mouth every day Unknown 09/28/2023 Senokot S8.6-50mg Tablets 2 tablets by mouth twice a day Unknown 09/28/2023 Ghenzfefv8fh Tablets Take 1 Tablet By Mouth Twice Daily as Needed 60tabs F41.1 Caryn Avalos MD 04/13/2023 Nvksnycv107jw Tablets 1 tablet by mouth at bedtime 135tabs Caryn Avalos MD 08/14/2022 Bipap With Mask, Head Gear And SuppliesDevice Please switch patient to nasal pillow 1units G47.33 Caryn Avalos MD 06/19/2022 Albuterol Sulfate BYD903(90Base) mcg/Act Aerosol take 2 puff as needed for shortness of breath. 8.500gm Caryn Avalos MD 12/20/2021 Onetouch Ultra 2w/Device Kit test sugars as advised dx: e11.65 1units Caryn Avalos MD 08/15/2021 Pen Qpkclxl93A X 4 mm Misc Use daily with insulin Dx; E11.65 300units Caryn Avalos MD 08/15/2021 Recliner Lift ChairMisc use as directed 1units Riley Barboza MD 03/04/2021 Test Strips For Glucose MeterStrips test sugars daily and when symptomatic dx: e11.65 (clarity test strips blood glucose 1000) 100units E11.65 Caryn Avalos MD 12/27/2020 E11.51 Vvboxtb561yx Tablets 1 by mouth every day 90tabs E11.6 5 Caryn Avalos MD 11/16/2020 WheelchairMisc standard wheelchair with cushion and foot plates 1units Riley Barboza MD 10/26/2020 Ipratropium [place]/Albuterol Sulfate0.5-2.5(3)mg/3M L Solution use in nebulizer four [...] eval required 1units Riley Barboza MD 07/16/2020 Safety-Colotn Safety Syringe/1ML/25G X 5/8"25G X 5/8" 1 ML Misc as directed 12units Riley Barboza MD 12/31/2019 1ML Vanishpoint Tuberculin Syringe 25GX1"25G X 1" 1 ML Misc use with vitamin b12 injections 4units Riley Barboza MD 12/29/2019 Syringe 2-3 ML3ml Misc use to administer cyanocobalamin as prescribed 4units Riley Barboza MD 12/19/2019 Fecjryistrkya559fa Tablets 2 tabs three times a day as needed Unknown 10/26/2019 Taouvrnmti308dh Capsules 1 tab by mouth three times a day 270caps Caryn Avalos MD 12/26/2017 Atorvastatin Unokbnc06sj Tablets 1 by mouth every day 90tabs E78.5 Caryn Avalos MD History Medications Qszatltfo495th Tablets 1 by mouth twice a day Unknown 09/28/2023 - 10/02/2023 Ykhwtvvowivp406je Tablets take 1 tablet by mouth every day for 10 days 10tabs R06.00 Caryn Avalos MD 07/20/2023 - 07/25/2023 Ytdvdlsytiu879xz Tablets take one tablet by mouth as a one-time dose as needed 5tabs Caryn Avalos MD 07/20/2023 - 10/10/2023 Vgivrstifk39rk Tablets two tablets x 5 days then one tablet daily x 5 days 15tabs Caryn Avalos MD 07/20/2023 - 10/01/2023 Medications Administered in Office Medication SIG Qnty Indications Ordering Provider Date Injection Methylprednisolone Acetate 40 MGInjection CHARLOTTE Dean 01/11/2022 Injection Vitamin B-12 Up To 1000 mcgInjection CHARLOTTE Carrasco 01/09/2020 Injection Kenalog 10 MG ND [id number] CHARLOTTE Dean 04/02/2019 Injection Kenalog 10 MG ND [id number] Dalia Guzman PA-C 07/23/2017 Injection Dexamethasone Sodi um Phosphate, 1 MGInjection Amanda Guzman PA-C 07/23/2017 Injection Kenalog 10 MG ND [id number] Dalia Guzman PA-C 04/11/2017 Injection Dexamethasone 1 MGInjection Dalia bush PA-C 04/11/2017 Immunizations CPT Code Status Date Vaccine Lot # [id number] Given 04/13/2023 Sarscov2 Vaccin e 50 mcg/0.5 ML For Im Use 12 Yrs And Older 59029 Given 04/13/2023 RSV Arexvy Vacc Pref Recombinant Adjuvanted EMR Only U-FLU Given 04/13/2023 Influenza,Unspecified 29723 Given 01/30/2023 Tdap (Tetanus, diphtheria & acel. pertussis) Adacel or Boostrix [id number] 22701 Given 04/18/2022 Moderna Sars-Co v-2 (Covid-19) Vaccine, BiValent Booster 12y+ [id number] 85190 Given 04/03/2022 Influenza Vaccine High Do se 0.5ML Age 65 & > [id number] 79160 Given 05/24/2021 Pfizer Sars-Cov -2 (Cov-19) vacc 30mcg/0.3ML 12Y+ EMR Doc Only 27419 Given 05/05/2021 Influenza Virus Vaccine, Quadrivalent (Cciiv4), Derived From 6 Given 09/21/2020 Pfizer Sars-Cov -2 (Cov-19) vacc 30mcg/0.3ML 12Y+ EMR Doc Only 08844 Given 08/31/2020 Pfizer Sars-Cov -2 (Cov-19) vacc 30mcg/0.3ML 12Y+ EMR Doc Only 93418 Given 06/18/2020 Influenza Virus Vaccine, Quadrivalent (Cciiv4), Derived From 0 Given 06/18/2020 Pneumococcal Conjugate-Pr evnar 13 [id number] U-FLU Given 06/18/2020 Influenza,Unspecified 283 849 09092 Given 02/10/2019 Shingrix 31488 Given 02/08/2019 Shingrix 04271 Given 09/17/2018 Shingrix 85122 Given 06/05/2018 Pneumococcal Vaccine/Pneu movax 23 [id number] 31367 Given 03/22/2018 Influenza Virus Vaccine, Quadrivalent (Cciiv4), Derived From 9 Given 07/16/2017 Influenza Virus Vaccine, Quadrivalent, Im Use [id number] U-FLU Given 03/24/2015 Influenza,Unspecified U-FLU Given 04/01/2013 Influenza,Unspecified 60104 Given 04/01/2013 Pneumococcal Vaccine/Pneu movax 23 Vital Signs Date Vital Result Comment 10/25/2023 1:11pm BP Systolic 124 mmHg BP Diastolic 68 mmHg Body Temperature 99.3 F Heart Rate 70 /min Respiratory Rate 24 /min Weight 226.00 lb Weight 102.514 kg Height 64 inches 5'4" BMI (Body Mass Index) 38.8 kg/m2 O2 % BldC Oximetry 95 % [place] Body Weight 120 lb 07/20/2023 3:26pm BP Systolic 126 mmHg BP Diastolic 70 mmHg Body Temperature 99.1 F Heart Rate 70 /min Respiratory Rate 24 /min Weight 246.00 lb Weight 111.586 kg Results Test Acquired Date Facility Test Result H/L Range N ote CBC W/Diff 05/15/2023 [facility]. [address] [place], [place] [id number] [phone] WBC 5.8 10^3/M3 3.1-9.2 RBC 3.77 10^6/M3 3.70-5.50 HGB 12.8 GR/DL 11.5-16.1 HCT 39.7 % 34.5-47.8 MCV 105.1 CUMICR High 82.6-95.8 MCH 34.0 PICOGR High 27.9-32.9 MCHC 32.4 % Low 32.6-35.4 RDW 14.5 % 11.4-14.6 PLT 235 10^3/M3 140-350 MPV 8.2 CUMICR 7.0-10.6 %Neut 73.2 % 40.0-75.0 %Lymph 12.3 % Low 17.0-45.0 %[place] 10.8 % 1.0-11.0 %Eos 2.6 % 0.0-6.0 %Baso 1.1 % 0.0-2.0 #Neut 4.2 10^3/M3 1.5-8.0 #Lymph 0.7 10^3/M3 Low 0.8-3.2 #[place] 0.6 10^3/M3 0.0-0.8 #Eos 0.1 10^3/m3 0.0-0.4 #Baso 0.1 10^3/m3 0.0-0.2 Comp. Met 05/15/2023 [facility]. [address] [place] [address] [phone] Glucose 160 mg/dL High 70-110 BUN 21 [...] 2.0-3.4 GFR 105 ML/MIN/1.73SQM >60 Lipid 05/15/2023 [facility]. [address] [place] [address] [phone] Cholesterol 148 mg/dL 0-200 2 Triglyceride 360 mg/dL High 0-150 3 HDLD 43 mg/dL See Comment 4 Measured LDL 63 mg/dL 0-130 5 Calc VLDL 72.0 mg/dL See Comment 6 Chol/HDL 3.4 RATIO See Comment 7 Non-HDL 105 mg/dL See Comment 8 Laboratory test finding 05/15/2023 [facility]. [address] [place] [address] [phone] TSH 1.81 uIU/mL 0.50-6.00 Hba1c 05/15/2023 [facility]. [address] [place] [address] [phone] Macro 1+ A1c 6.30 % 4.70-6.50 9 Microalbumin Urine 05/15/2023 [facility]. [address] [place] [address] [phone] Urine Creat COMMENT mg/dL Comment Microalbumin COMMENT mg/dL 0.0-1.8 10 ug/mgCREATININE COMMENT ug/mg Low 0-29 11 Urinalysis 05/15/2023 [facility]. [address] [place] [address] [phone] Color COMMENT 12 Appearance COMMENT Clear Spec.Grav. COMMENT 1.005-1.025 Leukocytes COMMENT Negative Nitrite COMMENT Negative PH COMMENT 6.0-7.5 Protein COMMENT Negative Urine Glucose COMMENT Negative Ketone COMMENT Negative Urobilinogen COMMENT E.U./DL Normal Bilirubin COMMENT Negative Blood COMMENT Negative WBC-U COMMENT /HPF 0-5/HPF RBC-U COMMENT /HPF 0-5/HPF Bacteria COMMENT None Seen Squamous COMMENT /HPF 0-5/HPF Urinalysis,Cult If Indicated 05/15/2023 [facility]. [address] [place] [address] [phone] RFLX Culture COMMENT 1 SPECIMEN SLIGHTLY HE [...] 150-7 90-5 300-12 270-11 240-10 10 *THE [employer] USES MICROALBUMIN/CREATINE RATIO : [...] W/Current Medications In Outpt MR Completed 05/15/2023 02734 Venipuncture Routine Complet ed 05/15/2023 3078F PVRP [...] general adult medical exam w abnormal findings A04.72 Enterocolitis d/t Cl ostridium difficile, not spcf as recur Office Visit 07/20/2023 11:15a Alma Jaimes PA-C [...] with abnormal findings Jose Jaimes PA-C 10/25/2023 A04.72 Enterocolitis du e to Clostridium difficile, not specified as recurrent Jose Jaimes PA-C 10/10/2023 S32.501A Unspecified frac ture of right pubis, initial encounter for closed fracture Jose Jaimes PA-C 10/10/2023 E11.42 Type 2 diabetes mellitus with diabetic polyneuropathy Jose Jaimes PA-C 10/10/2023 Z99.81 Dependence on supplemental o xygen Jose Jaimes PA-C 07/20/2023 J44.1 Chronic obstruct arianne pulmonary disease with (acute) exacerbation Jose Jaimes PA-C 07/20/2023 J96.11 Chronic respiratory failure with hypoxia Jose Jaimes PA-C 07/20/2023 Z99.81 Dependence on supplemental o nikko Jaimes PA-C 05/15/2023 I10 Essential (primary) hyperten [...] any screening recommendations Refuses any vaccinations * A04.72 Enterocolitis due to Clostridium difficile, [...]
--- OUTSIDE RECORDS SUMMARY | 2023-11-10 03:26 | External Medical Summary | Continuity of Care Document ---
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 Unknown 09/28/2023 Metformin HGB321od Tablets 1 by mouth twice a day 180tabs E11.65 Caryn Avalos MD 09/28/[address] Take 1 tablet by mouth twice a day. 180tabs Caryn Avalos MD 09/28/2023 Udvacaohrlq20ti Tablets Take 1 tablet by mouth at bedtime. Unknown 09/28/2023 Magnesium Jieyg551ck Tablets 1 by mouth twice a day. Unknown 09/28/2023 Miralax Mix-In Odv23az Packet 1 by mouth every day Unknown 09/28/2023 Senokot S8.6-50mg Tablets 2 tablets by mouth twice a day Unknown 09/28/2023 Ettktdnbg7np Tablets Take 1 Tablet By Mouth Twice Daily as Needed 60tabs F41.1 Caryn Avalos MD 04/13/2023 Nyvsbcrv178kp Tablets 1 tablet by mouth at bedtime 135tabs Caryn Avalos MD 08/14/2022 Bipap With Mask, Head Gear And SuppliesDevice Please switch patient to nasal pillow 1units G47.33 Caryn Avalos MD 06/19/2022 Albuterol Sulfate XKN700(90Base) mcg/Act Aerosol take 2 puff as needed for shortness of breath. 8.500gm Caryn Avalos MD 12/20/2021 Onetouch Ultra 2w/Device Kit test sugars as advised dx: e11.65 1units Caryn Avalos MD 08/15/2021 Pen Wdcclqr72H X 4 mm Misc Use daily with insulin Dx; E11.65 300units Caryn Avalos MD 08/15/2021 Recliner Lift ChairMisc use as directed 1units Riley Barboza MD 03/04/2021 Test Strips For Glucose MeterStrips test sugars daily and when symptomatic dx: e11.65 (clarity test strips blood glucose 1000) 100units E11.65 Caryn Avalos MD 12/27/2020 E11.51 Ucxiecm922xu Tablets 1 by mouth every day 90tabs E11.6 5 Caryn Avalos MD 11/16/2020 WheelchairMisc standard wheelchair with cushion and foot plates 1units Riley Barboza MD 10/26/2020 Ipratropium [place]/Albuterol Sulfate0.5-2.5(3)mg/3M L Solution use in nebulizer four [...] as prescribed 4units Riley Barboza MD 12/19/2019 Azokuwtmwxozf317el Tablets 2 tabs three times a day as needed Unknown 10/26/2019 Ylqvdshfat265wo Capsules 1 tab by mouth three times a day 270caps Caryn Avalos MD 12/26/2017 Atorvastatin Jfqnxdk49id Tablets 1 by mouth every day 90tabs E78.5 Caryn Avalos MD History Medications Sobpstnvz759la Tablets 1 by mouth twice a day Unknown 09/28/2023 - 10/02/2023 Saqiqduwtlft966cp Tablets take 1 tablet by mouth every day for 10 days 10tabs R06.00 Caryn Avalos MD 07/20/2023 - 07/25/2023 Auerhojibvb188dw Tablets take one tablet by mouth as a one-time dose as needed 5tabs Caryn Avalos MD 07/20/2023 - 10/10/2023 Pmcfeejgwi43jy Tablets two tablets x 5 days then one tablet daily x 5 days 15tabs Caryn Avalos MD 07/20/2023 - 10/01/2023 Medications Administered in Office Medication SIG Qnty Indications Ordering Provider Date Injection Methylprednisolone Acetate 40 MGInjection CHARLOTTE Dean 01/11/2022 Injection Vitamin B-12 Up To 1000 mcgInjection CHARLOTTE Carrasco 01/09/2020 Injection Kenalog 10 MG ND [id number] CHARLOTTE Dean 04/02/2019 Injection Kenalog 10 MG ND [id number] Dalia Guzman PA-C 07/23/2017 Injection Dexamethasone Sodi um Phosphate, 1 MGInjection Amanda Guzman PA-C 07/23/2017 Injection Kenalog 10 MG ND [id number] Dalia Guzman PA-C 04/11/2017 Injection Dexamethasone 1 MGInjection Dalia bush PA-C 04/11/2017 Immunizations CPT Code Status Date Vaccine Lot # [id number] Given 04/13/2023 Sarscov2 Vaccin e 50 mcg/0.5 ML For Im Use 12 Yrs And Older 49830 Given 04/13/2023 RSV Arexvy Vacc Pref Recombinant Adjuvanted EMR Only U-FLU Given 04/13/2023 Influenza,Unspecified 03029 Given 01/30/2023 Tdap (Tetanus, diphtheria & acel. pertussis) Adacel or Boostrix [id number] 55821 Given 04/18/2022 Moderna Sars-Co v-2 (Covid-19) Vaccine, BiValent Booster 12y+ [id number] 90416 Given 04/03/2022 Influenza Vaccine High Do se 0.5ML Age 65 & > [id number] 84325 Given 05/24/2021 Pfizer Sars-Cov -2 (Cov-19) vacc 30mcg/0.3ML 12Y+ EMR Doc Only 56670 Given 05/05/2021 Influenza Virus Vaccine, Quadrivalent (Cciiv4), Derived From 2 Given 09/21/2020 Pfizer Sars-Cov -2 (Cov-19) vacc 30mcg/0.3ML 12Y+ EMR Doc Only 36402 Given 08/31/2020 Pfizer Sars-Cov -2 (Cov-19) vacc 30mcg/0.3ML 12Y+ EMR Doc Only 98211 Given 06/18/2020 Influenza Virus Vaccine, Quadrivalent (Cciiv4), Derived From 9 Given 06/18/2020 Pneumococcal Conjugate-Pr evnar 13 [id number] U-FLU Given 06/18/2020 Influenza,Unspecified 283 849 05091 Given 02/10/2019 Shingrix 25858 Given 02/08/2019 Shingrix 96297 Given 09/17/2018 Shingrix 58055 Given 06/05/2018 Pneumococcal Vaccine/Pneu movax 23 [id number] 13577 Given 03/22/2018 Influenza Virus Vaccine, Quadrivalent (Cciiv4), Derived From 6 Given 07/16/2017 Influenza Virus Vaccine, Quadrivalent, Im Use [id number] U-FLU Given 03/24/2015 Influenza,Unspecified U-FLU Given 04/01/2013 Influenza,Unspecified 29572 Given 04/01/2013 Pneumococcal Vaccine/Pneu movax 23 Vital Signs Date Vital Result Comment 10/25/2023 1:11pm BP Systolic 124 mmHg BP Diastolic 68 mmHg Body Temperature 99.3 F Heart Rate 70 /min Respiratory Rate 24 /min Weight 226.00 lb Weight 102.514 kg Height 64 inches 5'4" BMI (Body Mass Index) 38.8 kg/m2 O2 % BldC Oximetry 95 % [place] Body Weight 120 lb 07/20/2023 3:26pm BP Systolic 126 mmHg BP Diastolic 70 mmHg Body Temperature 99.1 F Heart Rate 70 /min Respiratory Rate 24 /min Weight 246.00 lb Weight 111.586 kg Results Test Acquired Date Facility Test Result H/L Range N ote CBC W/Diff 05/15/2023 [facility]. [address] [place], [place] [id number] [phone] WBC 5.8 10^3/M3 3.1-9.2 RBC 3.77 10^6/M3 3.70-5.50 HGB 12.8 GR/DL 11.5-16.1 HCT 39.7 % 34.5-47.8 MCV 105.1 CUMICR High 82.6-95.8 MCH 34.0 PICOGR High 27.9-32.9 MCHC 32.4 % Low 32.6-35.4 RDW 14.5 % 11.4-14.6 PLT 235 10^3/M3 140-350 MPV 8.2 CUMICR 7.0-10.6 %Neut 73.2 % 40.0-75.0 %Lymph 12.3 % Low 17.0-45.0 %[place] 10.8 % 1.0-11.0 %Eos 2.6 % 0.0-6.0 %[place] 1.1 % 0.0-2.0 #Neut 4.2 10^3/M3 1.5-8.0 #Lymph 0.7 10^3/M3 Low 0.8-3.2 #[place] 0.6 10^3/M3 0.0-0.8 #Eos 0.1 10^3/m3 0.0-0.4 #[place] 0.1 10^3/m3 0.0-0.2 Comp. Met 05/15/2023 [facility] [address] [place] [address] [phone] Glucose 160 mg/dL High 70-110 BUN 21 [...] 2.0-3.4 GFR 105 ML/MIN/1.73SQM >60 Lipid 05/15/2023 [facility] [address] [place] [address] [phone] Cholesterol 148 mg/dL 0-200 2 Triglyceride 360 mg/dL High 0-150 3 HDLD 43 mg/dL See Comment 4 Measured LDL 63 mg/dL 0-130 5 Calc VLDL 72.0 mg/dL See Comment 6 Chol/HDL 3.4 RATIO See Comment 7 Non-HDL 105 mg/dL See Comment 8 Laboratory test finding 05/15/2023 [facility] [address] [place] [address] [phone] TSH 1.81 uIU/mL 0.50-6.00 Hba1c 05/15/2023 [facility] [address] [place] [address] [phone] Macro 1+ A1c 6.30 % 4.70-6.50 9 Microalbumin Urine 05/15/2023 [facility] [address] [place] [address] [phone] Urine Creat COMMENT mg/dL Comment Microalbumin COMMENT mg/dL 0.0-1.8 10 ug/mgCREATININE COMMENT ug/mg Low 0-29 11 Urinalysis 05/15/2023 [facility] [address] [place] [address] [phone] Color COMMENT 12 Appearance COMMENT Clear Spec.Grav. COMMENT 1.005-1.025 Leukocytes COMMENT Negative Nitrite COMMENT Negative PH COMMENT 6.0-7.5 Protein COMMENT Negative Urine Glucose COMMENT Negative Ketone COMMENT Negative Urobilinogen COMMENT E.U./DL Normal Bilirubin COMMENT Negative Blood COMMENT Negative WBC-U COMMENT /HPF 0-5/HPF RBC-U COMMENT /HPF 0-5/HPF Bacteria COMMENT None Seen Squamous COMMENT /HPF 0-5/HPF Urinalysis,Cult If Indicated 05/15/2023 [facility] [address] [place] [address] [phone] RFLX Culture COMMENT 1 SPECIMEN SLIGHTLY HE [...] 150-7 90-5 300-12 270-11 240-10 10 *THE [employer] [employer] [place] [employer] USES MICROALBUMIN/CREATINE RATIO : [...] W/Current Medications In Outpt MR Completed 05/15/2023 [id number] Venipuncture Routine Complet ed 05/15/2023 3078F PVRP [...] Hyperlipidemia, unsp ecified E11.9 Type 2 diabetes ajqueline itus without complications F33.1 Major depressive dis [...] Type 2 diabetes mellitus with diabetic polyneuropathy Joes Jaimes PA-C 10/10/2023 Z99.81 Dependence on supplemental [...]
--- OUTSIDE RECORDS SUMMARY | 2023-11-10 03:26 | External Medical Summary | Continuity of Care Document ---
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 Unknown 09/28/2023 Metformin YUN475cp Tablets 1 by mouth twice a day 180tabs E11.65 Caryn Avalos MD 09/28/[address] Take 1 tablet by mouth twice a day. 180tabs Caryn Avalos MD 09/28/2023 Ilvfijebgxb18oc Tablets Take 1 tablet by mouth at bedtime. Unknown 09/28/2023 Magnesium Wrfzb877ko Tablets 1 by mouth twice a day. Unknown 09/28/2023 Miralax Mix-In Huj28ci Packet 1 by mouth every day Unknown 09/28/2023 Senokot S8.6-50mg Tablets 2 tablets by mouth twice a day Unknown 09/28/2023 Zacmkbxhh1rg Tablets Take 1 Tablet By Mouth Twice Daily as Needed 60tabs F41.1 Caryn Avalos MD 04/13/2023 Bedjdzan670et Tablets 1 tablet by mouth at bedtime 135tabs Caryn Avalos MD 08/14/2022 Bipap With Mask, Head Gear And SuppliesDevice Please switch patient to nasal pillow 1units G47.33 Caryn Avalos MD 06/19/2022 Albuterol Sulfate WZO816(90Base) mcg/Act Aerosol take 2 puff as needed for shortness of breath. 8.500gm Caryn Avalos MD 12/20/2021 Onetouch Ultra 2w/Device Kit test sugars as advised dx: e11.65 1units Caryn Avalos MD 08/15/2021 Pen Nrsobvd25N X 4 mm Misc Use daily with insulin Dx; E11.65 300units Caryn Avalos MD 08/15/2021 Recliner Lift ChairMisc use as directed 1units Riley Barboza MD 03/04/2021 Test Strips For Glucose MeterStrips test sugars daily and when symptomatic dx: e11.65 (clarity test strips blood glucose 1000) 100units E11.65 Caryn Avalos MD 12/27/2020 E11.51 Kftofis364zo Tablets 1 by mouth every day 90tabs E11.6 5 Caryn Avalos MD 11/16/2020 WheelchairMisc standard wheelchair with cushion and foot plates 1units Riley Barboza MD 10/26/2020 Ipratropium [place]/Albuterol Sulfate0.5-2.5(3)mg/3M L Solution use in nebulizer four [...] as prescribed 4units Riley Barboza MD 12/19/2019 Umtqxfqlwehkq440ac Tablets 2 tabs three times a day as needed Unknown 10/26/2019 Gmoscejjdd516aw Capsules 1 tab by mouth three times a day 270caps Caryn Avalos MD 12/26/2017 Atorvastatin Gevvfjf30vp Tablets 1 by mouth every day 90tabs E78.5 Caryn Avalos MD History Medications Nrtdnwhtn344je Tablets 1 by mouth twice a day Unknown 09/28/2023 - 10/02/2023 Avmjitykcrgg699ig Tablets take 1 tablet by mouth every day for 10 days 10tabs R06.00 Caryn Avalos MD 07/20/2023 - 07/25/2023 Nxkkcdfkpvw821ah Tablets take one tablet by mouth as a one-time dose as needed 5tabs Caryn Avalos MD 07/20/2023 - 10/10/2023 Piecllwoml69sp Tablets two tablets x 5 days then one tablet daily x 5 days 15tabs Caryn Avalos MD 07/20/2023 - 10/01/2023 Medications Administered in Office Medication SIG Qnty Indications Ordering Provider Date Injection Methylprednisolone Acetate 40 MGInjection CHARLOTTE Dean 01/11/2022 Injection Vitamin B-12 Up To 1000 mcgInjection CHARLOTTE Carrasco 01/09/2020 Injection Kenalog 10 MG ND [id number] CHARLOTTE Dean 04/02/2019 Injection Kenalog 10 MG ND [id number] Dalia Guzman PA-C 07/23/2017 Injection Dexamethasone Sodi um Phosphate, 1 MGInjection Amanda Guzman PA-C 07/23/2017 Injection Kenalog 10 MG ND [id number] Dalia Guzman PA-C 04/11/2017 Injection Dexamethasone 1 MGInjection Dalia bush PA-C 04/11/2017 Immunizations CPT Code Status Date Vaccine Lot # 62459 Given 04/13/2023 Sarscov2 Vaccin e 50 mcg/0.5 ML For Im Use 12 Yrs And Older 93774 Given 04/13/2023 RSV Arexvy Vacc Pref Recombinant Adjuvanted EMR Only U-FLU Given 04/13/2023 Influenza,Unspecified 63286 Given 01/30/2023 Tdap (Tetanus, diphtheria & acel. pertussis) Adacel or Boostrix [id number] 46508 Given 04/18/2022 Moderna Sars-Co v-2 (Covid-19) Vaccine, BiValent Booster 12y+ [id number] 57579 Given 04/03/2022 Influenza Vaccine High Do se 0.5ML Age 65 & > [id number] 33157 Given 05/24/2021 Pfizer Sars-Cov -2 (Cov-19) vacc 30mcg/0.3ML 12Y+ EMR Doc Only 38965 Given 05/05/2021 Influenza Virus Vaccine, Quadrivalent (Cciiv4), Derived From 9 Given 09/21/2020 Pfizer Sars-Cov -2 (Cov-19) vacc 30mcg/0.3ML 12Y+ EMR Doc Only 66748 Given 08/31/2020 Pfizer Sars-Cov -2 (Cov-19) vacc 30mcg/0.3ML 12Y+ EMR Doc Only 21200 Given 06/18/2020 Influenza Virus Vaccine, Quadrivalent (Cciiv4), Derived From 2 Given 06/18/2020 Pneumococcal Conjugate-Pr evnar 13 [id number] U-FLU Given 06/18/2020 Influenza,Unspecified 283 849 98370 Given 02/10/2019 Shingrix 50627 Given 02/08/2019 Shingrix 07456 Given 09/17/2018 Shingrix 31198 Given 06/05/2018 Pneumococcal Vaccine/Pneu movax 23 [id number] 13189 Given 03/22/2018 Influenza Virus Vaccine, Quadrivalent (Cciiv4), Derived From 8 Given 07/16/2017 Influenza Virus Vaccine, Quadrivalent, Im Use [id number] U-FLU Given 03/24/2015 Influenza,Unspecified U-FLU Given 04/01/2013 Influenza,Unspecified 67584 Given 04/01/2013 Pneumococcal Vaccine/Pneu movax 23 Vital Signs Date Vital Result Comment 10/25/2023 1:11pm BP Systolic 124 mmHg BP Diastolic 68 mmHg Body Temperature 99.3 F Heart Rate 70 /min Respiratory Rate 24 /min Weight 226.00 lb Weight 102.514 kg Height 64 inches 5'4" BMI (Body Mass Index) 38.8 kg/m2 O2 % BldC Oximetry 95 % [place] Body Weight 120 lb 07/20/2023 3:26pm BP Systolic 126 mmHg BP Diastolic 70 mmHg Body Temperature 99.1 F Heart Rate 70 /min Respiratory Rate 24 /min Weight 246.00 lb Weight 111.586 kg Results Test Acquired Date Facility Test Result H/L Range N ote CBC W/Diff 05/15/2023 [facility]. [address] [place], [place] [id number] [phone] WBC 5.8 10^3/M3 3.1-9.2 RBC 3.77 10^6/M3 3.70-5.50 HGB 12.8 GR/DL 11.5-16.1 HCT 39.7 % 34.5-47.8 MCV 105.1 CUMICR High 82.6-95.8 MCH 34.0 PICOGR High 27.9-32.9 MCHC 32.4 % Low 32.6-35.4 RDW 14.5 % 11.4-14.6 PLT 235 10^3/M3 140-350 MPV 8.2 CUMICR 7.0-10.6 %Neut 73.2 % 40.0-75.0 %Lymph 12.3 % Low 17.0-45.0 %[place] 10.8 % 1.0-11.0 %Eos 2.6 % 0.0-6.0 %[place] 1.1 % 0.0-2.0 #Neut 4.2 10^3/M3 1.5-8.0 #Lymph 0.7 10^3/M3 Low 0.8-3.2 #[place] 0.6 10^3/M3 0.0-0.8 #Eos 0.1 10^3/m3 0.0-0.4 #[place] 0.1 10^3/m3 0.0-0.2 Comp. Met 05/15/2023 [facility] [address] [place] [address] [phone] Glucose 160 mg/dL High 70-110 BUN 21 [...] 2.0-3.4 GFR 105 ML/MIN/1.73SQM >60 Lipid 05/15/2023 [facility] [address] [place] [address] [phone] Cholesterol 148 mg/dL 0-200 2 Triglyceride 360 mg/dL High 0-150 3 HDLD 43 mg/dL See Comment 4 Measured LDL 63 mg/dL 0-130 5 Calc VLDL 72.0 mg/dL See Comment 6 Chol/HDL 3.4 RATIO See Comment 7 Non-HDL 105 mg/dL See Comment 8 Laboratory test finding 05/15/2023 [facility] [address] [place] [address] [phone] TSH 1.81 uIU/mL 0.50-6.00 Hba1c 05/15/2023 [facility] [address] [place] [address] [phone] Macro 1+ A1c 6.30 % 4.70-6.50 9 Microalbumin Urine 05/15/2023 [facility]. [address] [place] [address] [phone] Urine Creat COMMENT mg/dL Comment Microalbumin COMMENT mg/dL 0.0-1.8 10 ug/mgCREATININE COMMENT ug/mg Low 0-29 11 Urinalysis 05/15/2023 [facility] [address] [place] [address] [phone] Color COMMENT 12 Appearance COMMENT Clear Spec.Grav. COMMENT 1.005-1.025 Leukocytes COMMENT Negative Nitrite COMMENT Negative PH COMMENT 6.0-7.5 Protein COMMENT Negative Urine Glucose COMMENT Negative Ketone COMMENT Negative Urobilinogen COMMENT E.U./DL Normal Bilirubin COMMENT Negative Blood COMMENT Negative WBC-U COMMENT /HPF 0-5/HPF RBC-U COMMENT /HPF 0-5/HPF Bacteria COMMENT None Seen Squamous COMMENT /HPF 0-5/HPF Urinalysis,Cult If Indicated 05/15/2023 [facility] [address] [place] [address] [phone] RFLX Culture COMMENT 1 SPECIMEN SLIGHTLY HE [...] 150-7 90-5 300-12 270-11 240-10 10 *THE [place] [employer] USES MICROALBUMIN/CREATINE RATIO : [...] W/Current Medications In Outpt MR Completed 05/15/2023 [id number] Venipuncture Routine Complet ed 05/15/2023 3078F PVRP [...]
[2023-11-10 04:35] LABS: Urine Chloride 25 mmol/L; Urine Potassium 16.7 mmol/L; Urine Sodium < 10 mmol/L
[2023-11-10] MEDS: CEFEPIME 2,000 MG in SYRINGE 0 ML IV SCH (05:49)
[2023-11-10 06:13] LABS: Hematocrit (blood only) 40.2 % (37.0-47.0); Hemoglobin 13.7 g/dl (12.0-16.0); Mean Corpuscular Hemoglobin 28.9 pg (25.0-34.0); Mean Corpuscular Hgb Conc 34.1 g/dL (32.0-36.0); Mean Corpuscular Volume 84.8 fL (80.0-100.0); Mean Platelet Volume 8.5 fL (9.4-12.4); Platelet Count 399 K/uL (130-400); RDW Coefficient of Variation 19.1 % (11.5-14.5); RDW Standard Deviation 59.7 fL (36.4-46.3); Red Blood Count 4.74 M/uL (4.20-5.40)
[2023-11-10 06:33] LABS: Basophils # (auto) 0.02 K/uL (0.00-0.20); Basophils % (auto) 0.2 %; Echinocytes 1+; Eosinophils # (auto) 0.01 K/uL (0.00-0.50); Eosinophils % (auto) 0.1 %; Immature Granulocytes # (auto) 0.06 K/uL (0.01-0.20); Immature Granulocytes % (auto) 0.5 %; Lymphocytes # (auto) 0.33 K/uL (1.20-3.40); Lymphocytes % (auto) 2.5 %; Monocytes # (auto) 0.22 K/uL (0.11-0.59); Monocytes % (auto) 1.7 %; Neutrophils # (auto) 12.66 K/uL (1.40-6.50)
[2023-11-10 06:36] LABS: Albumin Level 2.3 gm/dl (3.4-5.0); Bilirubin Direct 0.2 mg/dl (0-0.2); Bilirubin,Total 0.7 mg/dl (0.2-1.0); Magnesium 1.8 mg/dl (1.7-2.4); Phosphorus 3.5 mg/dl (2.5-4.9); Total Protein 5.9 gm/dl (6.0-8.3)
--- NOTE | 2023-11-10 06:39 | Electrocardiogram Report ---
Test Reason : Blood Pressure : / mmHG Vent. Rate : 100 BPM Atrial Rate : 117 BPM P-R Int : 000 ms QRS Dur : 156 ms QT Int : 378 ms P-R-T Axes : -29 144 -75 degrees QTc Int : 487 ms Atrial fibrillation Right bundle branch block Septal infarct , age undetermined Abnormal ECG When compared with ECG of 23-AUG-2023 00:14, Atrial fibrillation has replaced Sinus rhythm Septal infarct is now Present Nonspecific T wave abnormality, worse in Lateral leads Confirmed by Myron Norton ([id number] on 11/10/2023 6:39:18 AM Referred By: REFERRED SELF Confirmed By:Myron Norton
[2023-11-10 07:12] LABS: Estimated Average Glucose 108 mg/dl; Hemoglobin A1C 5.4 % (4.5-5.6)
[2023-11-10 07:15] LABS: A calco-baum cmplx NotReported Not Detected (NotDetected); Bact fragilis Not Reported Not Detected (NotDetected); Blood Culture Id Panel See PCR Comment (NotDetected); C auris Not Reported Not Detected (NotDetected); CTX-M Resistant Gene Not Detected (NotDetected); Calbicans Not Reported Not Detected (NotDetected); Candida glabrata Not Reported Not Detected (NotDetected); Candida krusei Not Reported Not Detected (NotDetected); Cneoformans/gatti Not Reported Not Detected (NotDetected); Cparapsilosis Not Reported Not Detected (NotDetected); E cloacae compx Not Reported Not Detected (NotDetected); Efaecalis Not Reported Not Detected (NotDetected); Efaecium Not Reported Not Detected (NotDetected); Enterobacterales DETECTED (NotDetected); Enterobacterales Not Reported DETECTED (NotDetected); Escherichia coli Not Reported DETECTED (NotDetected); H influenzae Not Reported Not Detected (NotDetected); IMP Resistant Gene Not Detected (NotDetected); K aerogenes Not Reported Not Detected (NotDetected); KPC Resistant Gene Not Detected (NotDetected); Koxytoca Not Reported Not Detected (NotDetected); Kpneumoniae grp Not Reported Not Detected (NotDetected); Lmonocyt Not Reported Not Detected (NotDetected); N meningitidis Not Reported Not Detected (NotDetected); NDM Resistant Gene Not Detected (NotDetected); OXA 48 Like Resistant Gene Not Detected (NotDetected); P aeruginosa Not Reported Not Detected (NotDetected); Proteus spp Not Reported Not Detected (NotDetected); Salmonella spp Not Reported Not Detected (NotDetected); Smarcescens Not Reported Not Detected (NotDetected); Staph lugdunensis Not Reported Not Detected (NotDetected); Staph spp. Not Reported Not Detected (NotDetected); Staphaureus Not Reported Not Detected (NotDetected); Staphepi Not Reported Not Detected (NotDetected); Stenmaltophilia Not Reported Not Detected (NotDetected); Strep agal(GrpB) Not Reported Not Detected (NotDetected); Strep pneum Not Reported Not Detected (NotDetected); Strep pyog (GrpA) Not Reported Not Detected (NotDetected); Strep spp Not Reported Not Detected (NotDetected); VIM Resistant Gene Not Detected (NotDetected); mcr-1 Colistin Resistant Gene Not Detected (NotDetected)
[2023-11-10] MEDS: POLYETHYLENE (MIRALAX) 17 GM PACK PO SCH (09:09)
--- NOTE | 2023-11-10 09:47 | Critical Care Progress Note ---
Date of Service November 10, 2023 Assessment & Plan (1) E. coli bacteremia: (2) Sepsis: (3) Stage II pressure ulcer: (4) Hyponatremia: Plan Impression: 73-year-old female with complex past medical history including diabetes, hypoxemic respiratory failure, depression, obesity, coronary disease, and prior subarachnoid hemorrhage brought in with fatigue poor appetite and hypotension found to have E. coli bacteremia likely from urinary source with septic shock. She initially required pressors which have been weaned to off currently. Recommendations: 1. Neurologic: Patient demonstrated some encephalopathy. Unclear baseline. Her sensorium appears to be clearing. No indication for advanced imaging or additional workup at this point in time. Continue to follow. 2. Cardiovascular: Septic shock: The patient is hypervolemic and does not warrant additional fluids currently. Pressors have been weaned off. Lactate clearing. Echocardiogram pending 3. Pulmonary: No current issues. 4. ID: E. coli bacteremia. Discontinue cefepime and de-escalate to Rocephin. Follow fever curve and white blood cell count. 5. Renal: Hyponatremia: Appears to be hypervolemic hyponatremia. Cannot rule out psychogenic polydipsia. Urine osmolarity and sodium are appropriately low with urine sodium less than 10. Continue fluid restriction. Continue to trend sodium levels over time. Replace calcium. Diuretics as tolerated 6. GI: Okay to advance diet as tolerated. 7. Endocrine: Glycemic control per protocol. Currently on stress dose steroids for relative adrenal insufficiency which can be weaned rapidly 8. Heme-onc: No current issues. Will observe in the ICU today but if she remains off pressor agents and stable she can likely transfer to the floor at which point in time critical care services will sign off. Thanks for the opportunity participating in the care of this patient. Feel free to contact us with questions or concerns Admission and Anticipated Discharge Date Admission Date: November 09, 2023 Subjective Patient seen and examined. EMR reviewed. Discussed with bedside critical care nurse and critical care JOE. Patient does not offer any new complaints this morning. She is somnolent but does arouse to verbal stimulus and answers questions appropriately although somewhat slowed. She denies any chest pain or palpitations. No other discomfort. No nausea or vomiting. No difficulty with breathing. Review of Systems Review of Systems: All systems reviewed & are unremarkable except as noted in Subjective Physical Exam Constitutional: + morbidly obese and + lethargic; no acu te distress Neck: trachea midline, no thyromegaly Respiratory: normal respiratory effort, lungs clear to auscultation Cardiovascular: RRR, no murmur, no edema Gastrointestinal (Abdomen): normal bowel sounds, soft, nontender, no hepatosplenomegaly Musculoskeletal: Extremities: extremities normal to inspection Skin: no rashes, warm and dry Neurologic: Nonfocal exam Lymphatic: no cervical lymphadenopathy Results & Data Results & Data Vital Signs (Past 12 Hours) Vital Signs Temp Pulse Resp BP Pulse Ox O2 Del Method O2 Flow Rate 11/10/23 09:01 127/97 11/10/23 09:01 107 H 21 97 11/10/23 09:00 117 H 15 97 11/10/23 08:45 119 H 17 98 11/10/23 08:45 96/72 L 11/10/23 08:30 121 H 18 96 11/10/23 08:30 116/73 11/10/23 08:15 103/79 11/10/23 08:15 113 H 14 97 11/10/23 08:00 119/72 11/10/23 08:00 117 H 19 92 11/10/23 08:00 36.8 C 11/10/23 07:45 105/77 11/10/23 07:45 119 H 21 95 11/10/23 07:30 117/71 11/10/23 07:30 120 H 22 95 11/10/23 07:15 120/68 11/10/23 07:15 120 H 31 H 97 11/10/23 07:00 112 H 15 98 11/10/23 07:00 106/80 11/10/23 05:45 120 H 20 97 11/10/23 05:45 90/67 L 11/10/23 05:30 97/75 L 11/10/23 05:30 116 H 17 97 11/10/23 05:15 105/76 11/10/23 05:15 109 H 18 97 11/10/23 05:00 100/75 11/10/23 05:00 118 H 18 97 11/10/23 04:45 102/77 11/10/23 04:45 119 H 19 95 11/10/23 04:30 102/72 11/10/23 04:30 119 H 19 96 11/10/23 04:15 120 H 25 H 94 11/10/23 04:15 110/76 11/10/23 04:00 96/68 L 11/10/23 04:00 104 H 15 97 11/10/23 04:00 36.9 C 11/10/23 03:45 96/72 L 11/10/23 03:45 104 H 16 97 11/10/23 03:30 88/75 L 11/10/23 03:30 112 H 15 97 11/10/23 03:15 98/71 L 11/10/23 03:15 98 H 18 97 11/10/23 03:00 114/71 11/10/23 03:00 115 H 15 97 11/10/23 02:45 108/70 11/10/23 02:45 111 H 15 98 11/10/23 02:30 103/72 11/10/23 02:30 104 H 15 97 11/10/23 02:15 98/72 L 11/10/23 02:15 109 H 15 97 11/10/23 02:00 98/77 L 11/10/23 02:00 104 H 18 98 11/10/23 01:45 90 15 97 11/10/23 01:45 89/66 L 11/10/23 01:30 94/68 L 11/10/23 01:30 113 H 15 98 11/10/23 01:15 99/73 L 11/10/23 01:15 108 H 15 98 11/10/23 01:00 97/69 L 11/10/23 01:00 108 H 15 98 11/10/23 00:45 104/69 11/10/23 00:45 113 H 16 97 11/10/23 00:30 123 H 22 93 11/10/23 00:30 107/72 11/10/23 00:15 98/70 L 11/10/23 00:15 112 H 22 95 11/10/23 00:15 Nasal Cannula 4 11/10/23 00:00 101/74 11/10/23 00:00 121 H 23 97 11/10/23 00:00 36.6 C 11/10/23 00:00 114 H 11/09/23 23:45 99/64 L 11/09/23 23:45 120 H 25 H 92 11/09/23 23:30 97/70 L 05/10/24 23:30 122 H 25 H 94 05/10/24 23:15 105/74 11/09/23 23:15 120 H 23 95 11/09/23 23:01 113 H 21 96 11/09/23 23:01 114/73 11/09/23 23:00 112 H 19 95 11/09/23 22:45 98/72 L 11/09/23 22:45 121 H 18 99 11/09/23 22:36 111 H 21 97 11/09/23 22:36 95/68 L 11/09/23 22:30 90/71 L 11/09/23 22:30 108 H 20 95 11/09/23 22:28 88/60 L 11/09/23 22:28 112 H 20 94 11/09/23 22:00 107 H 26 H 91 11/09/23 21:48 119 H 20 91 Critical Care Results & Data Vital Signs (Past 12 Hours) Vital Signs Temp Pulse Resp BP Pulse Ox O2 Del Method O2 Flow Rate 11/10/23 09:01 127/97 11/10/23 09:01 107 H 21 97 11/10/23 09:00 117 H 15 97 11/10/23 08:45 119 H 17 98 11/10/23 08:45 96/72 L 11/10/23 08:30 121 H 18 96 11/10/23 08:30 116/73 11/10/23 08:15 103/79 11/10/23 08:15 113 H 14 97 11/10/23 08:00 119/72 11/10/23 08:00 117 H 19 92 11/10/23 08:00 36.8 C 11/10/23 07:45 105/77 11/10/23 07:45 119 H 21 95 11/10/23 07:30 117/71 11/10/23 07:30 120 H 22 95 11/10/23 07:15 120/68 11/10/23 07:15 120 H 31 H 97 11/10/23 07:00 112 H 15 98 11/10/23 07:00 106/80 11/10/23 05:45 120 H 20 97 11/10/23 05:45 90/67 L 11/10/23 05:30 97/75 L 11/10/23 05:30 116 H 17 97 05/11/24 05:15 105/76 05//24 05:15 109 H 18 97 11/10/23 05:00 100/75 11/10/23 05:00 118 H 18 97 11/10/23 04:45 102/77 11/10/23 04:45 119 H 19 95 11/10/23 04:30 102/72 11/10/23 04:30 119 H 19 96 11/10/23 04:15 120 H 25 H 94 11/10/23 04:15 110/76 11/10/23 04:00 96/68 L 11/10/23 04:00 104 H 15 97 11/10/23 04:00 36.9 C 11/10/23 03:45 96/72 L 11/10/23 03:45 104 H 16 97 11/10/23 03:30 88/75 L 11/10/23 03:30 112 H 15 97 11/10/23 03:15 98/71 L 11/10/23 03:15 98 H 18 97 11/10/23 03:00 114/71 11/10/23 03:00 115 H 15 97 11/10/23 02:45 108/70 11/10/23 02:45 111 H 15 98 11/10/23 02:30 103/72 11/10/23 02:30 104 H 15 97 11/10/23 02:15 98/72 L 11/10/23 02:15 109 H 15 97 11/10/23 02:00 98/77 L 11/10/23 02:00 104 H 18 98 11/10/23 01:45 90 15 97 11/10/23 01:45 89/66 L 11/10/23 01:30 94/68 L 11/10/23 01:30 113 H 15 98 11/10/23 01:15 99/73 L 11/10/23 01:15 108 H 15 98 11/10/23 01:00 97/69 L 11/10/23 01:00 108 H 15 98 11/10/23 00:45 104/69 11/10/23 00:45 113 H 16 97 11/10/23 00:30 123 H 22 93 11/10/23 00:30 107/72 11/10/23 00:15 98/70 L 11/10/23 00:15 112 H 22 95 11/10/23 00:15 Nasal Cannula 4 11/10/23 00:00 101/74 11/10/23 00:00 121 H 23 97 11/10/23 00:00 36.6 C 11/10/23 00:00 114 H 11/09/23 23:45 99/64 L 11/09/23 23:45 120 H 25 H 92 11/09/23 23:30 97/70 L 11/09/23 23:30 122 H 25 H 94 11/09/23 23:15 105/74 11/09/23 23:15 120 H 23 95 11/09/23 23:01 113 H 21 96 11/09/23 23:01 114/73 11/09/23 23:00 112 H 19 95 11/09/23 22:45 98/72 L 11/09/23 22:45 121 H 18 99 11/09/23 22:36 111 H 21 97 11/09/23 22:36 95/68 L 11/09/23 22:30 90/71 L 11/09/23 22:30 108 H 20 95 11/09/23 22:28 88/60 L 11/09/23 22:28 112 H 20 94 11/09/23 22:00 107 H 26 H 91 11/09/23 21:48 119 H 20 91 Lab & Micro Results (Past 24 Hours) RBC 4.74 M/uL (4.20-5.40) 11/10/23 WBC 13.30 K/ul (4.8-10.8) H 11/10/23 Hgb 13.7 g/dl (12.0-16.0) 11/10/23 Hct 40.2 % (37.0-47.0) 11/10/23 MCV 84.8 fL (80.0-100.0) 11/10/23 MCH 28.9 pg (25.0-34.0) 11/10/23 MCHC 34.1 g/dL (32.0-36.0) 11/10/23 RDW Standard Deviation 59.7 fL (36.4-46.3) H 11/10/23 RDW Coefficient of Variation 19.1 % (11.5-14.5) H 11/10/23 Plt Count 399 K/uL (130-400) 11/10/23 MPV 8.5 fL (9.4-12.4) L 11/10/23 Neutrophils (%) (Auto) 95.0 % 11/10/23 Lymphocytes (%) (Auto) 2.5 % 11/10/23 Monocytes # (Auto) 0.22 K/uL (0.11-0.59) 11/10/23 Eosinophils # (Auto) 0.01 K/uL (0.00-0.50) 11/10/23 Immature Granulocyte % (Auto) 0.5 % 11/10/23 Neutrophils # (Auto) 12.66 K/uL (1.40-6.50) H 11/10/23 Lymphocytes # (Auto) 0.33 K/uL (1.20-3.40) L 11/10/23 Monocytes # (Auto) 0.22 K/uL (0.11-0.59) 11/10/23 Eosinophils # (Auto) 0.01 K/uL (0.00-0.50) 11/10/23 Basophils # (Auto) 0.02 K/uL (0.00-0.20) 11/10/23 Immature Granulocyte # (Auto) 0.06 K/uL (0.01-0.20) 4 Echinocytes 1+ 11/10/23 Anisocytosis Present 11/09/23 Na 124 mmol/L (136-145) L 11/10/23 K TNP 11/10/23 Cl 97 mmol/L (98-107) L 11/10/23 CO2 18 mmol/L (21-32) L 11/10/23 Anion Gap 9 (3-11) 11/10/23 BUN 36 mg/dl (6-23) H 11/10/23 Creatinine 0.74 mg/dl (0.6-1.2) 11/10/23 Estimated GFR ( Amer) 93.8 ml/min 11/10/23 Estimated GFR (Non-Af Amer) 80.9 ml/min 11/10/23 BUN/Creatinine Ratio 48.6 (10-20) H 11/10/23 Glu 122 mg/dl (70-99(Fasting)) H 11/10/23 Ca 7.0 mg/dl (8.6-10.3) L 11/10/23 Phosphorus Level 3.5 mg/dl (2.5-4.9) 11/10/23 Total Bilirubin 0.7 mg/dl (0.2-1.0) 11/10/23 Direct Bilirubin 0.2 mg/dl (0-0.2) 11/10/23 AST 57 U/L (13-39) H 11/10/23 ALT 34 U/L (7-52) 11/10/23 Alkaline Phosphatase 213 U/L (34-104) H 11/10/23 TP 5.9 gm/dl (6.0-8.3) L 11/10/23 Albumin 2.3 gm/dl (3.4-5.0) L 11/10/23 Mg 1.8 mg/dl (1.7-2.4) 11/10/23 05:44 Calcium Level 7.0 mg/dl (8.6-10.3) L 11/10/23 09:32 Microbiology 11/09/23 13:47 Urine Culture - Preliminary Urine,Clean Catch Gram negative bacilli 11/09/23 13:40 Aerobic Blood Culture - Preliminary Blood Gram negative bacilli Diagnostic Findings (Past 24 Hours) Chest X-Ray 11/09/23 13:44 XR chest 1V portable CLINICAL HISTORY: Sepsis TECHNIQUE: Single frontal radiograph of the chest was obtained. Comparison: Comparison is made to chest radiograph 09/14/2023 FINDINGS: Right reverse shoulder arthroplasty noted. Cardiomegaly is noted. Faint bibas ilar airspace opacities are seen. Vascular prominence is again seen. No evidence of pleural effusion or pneumothorax. IMPRESSION: Cardiomegaly and mild pulmonary edema. Faint bibasilar airspace opacities likely represent pneumonia, somewhat less extensive than in the prior exam. ACT 112: Negative or not required by law. Electronically signed by: Jerry White M.D. 11/09/2023 2:18 PM Abdomen/Pelvis CT 11/09/23 13:47 CT abd pelvis IV con only CLINICAL HISTORY: diffuse ab pain TECHNIQUE: Helical axial images of the abdomen and pelvis were obtained and displayed. Automated dose lowering techniques and/or adjustment according to patient size were utilized for this exam. This exam was performed with intravenous contrast. CT DOSE: 1563.68 mGy.cm COMPARISON: Comparison is made to CT abdomen pelvis 08/01/2021 FINDINGS: Lower chest: Small left pleural effusion is seen atelectasis is seen. Liver: Unchanged nodular contour of the liver. Gallbladder and biliary tree: Patient is status post cholecystectomy. No intra- or extrahepatic biliary ductal dilation. Pancreas: Unremarkable, no focal lesions. Spleen: Unremarkable. Adrenals: Unremarkable. Kidneys and ureters: Unremarkable. Bladder: Deleon catheter is seen. Reproductive organs: Unremarkable. Bowel: Unremarkable. Lymph nodes Retroperitoneal: Unremarkable. Pelvic: Unremarkable. Mesenteric: Unremarkable. Peritoneum: Normal. Vessels: Atherosclerotic calcifications are seen. Abdominal wall: A large ventral hernia containing multiple loops of bowel. Bones: Degenerative changes in the visualized spine. L3 compression deformity is unchanged. IMPRESSION: No acute abnormalities to explain diffuse abdominal pain. Large ventral hernia is unchanged. ACT 112: Negative or not required by law. Electronically signed by: Jerry White M.D. 11/09/2023 3:53 PM I & O Totals 24 Hours 11/09/23 11/10/23 11/11/23 06:59 06:59 06:59 Intake Total 1810.543 / 1810.543 0 / 0 Output Total 3390 / 3390 Balance -1579.457 / -1579.457 0 / 0 Cumulative 11/09/23 12:33 thru 11/10/23 09:12 Intake Total 1810.543 Output Total 3390 Balance -1579.457 RT Ventilator Mngmt (Last Documented) Ventilator Ordered Settings Respiratory Rate 21 11/10/23 09:01 Ventilator - PT Measurements Respiratory Rate 21 Coding Level of Care Code 57516 SUB INP/OBS CARE 3/50MIN Diagnoses E. coli bacteremia R78.81; B96.20 Sepsis A41.9 Stage II pressure ulcer L89.92 Hyponatremia E87.1
[2023-11-10 10:07] LABS: Anion Gap 9 (3-11); BUN Creatinine Ratio 48.6 (10-20); Blood Urea Nitrogen 36 mg/dl (6-23); Carbon Dioxide 18 mmol/L (21-32); Chloride 97 mmol/L (98-107); Creatinine Clr Calc Pharmacy 77.1 ml/min; Est GFR (African American) 93.8 ml/min; Est GFR (Non-African American) 80.9 ml/min; Glucose 122 mg/dl (70-99(Fasting)); Sodium 124 mmol/L (136-145)
[2023-11-10] MEDS: CALCIUM GLUCONATE 1,000 MG/60 ML BAG IV SCH (10:44)
[2023-11-10 10:55] LABS: Calcium 7.6 mg/dl (8.6-10.3); Potassium 5.6 mmol/L (3.5-5.1)
[2023-11-10 11:01] LABS: BUN Creatinine Ratio 45.9 (10-20); Creatinine Clr Calc Pharmacy 77.1 ml/min; Est GFR (African American) 93.8 ml/min; Est GFR (Non-African American) 80.9 ml/min
[2023-11-10] MEDS: cefTRIAXone SODIUM 1,000 MG/50 ML BAG IV SCH (11:13)
--- NOTE | 2023-11-10 14:18 | Hospitalist Progress Note ---
Date of Service November 10, 2023 Assessment & Plan (1) Septic shock due to Escherichia coli: Plan: source - urinary tract (UTI) CT abd/pelvis without obstructing kidney stone or other urinary tract abnormalities previously on cefepime now on rocephin 1gm IV daily was only on pressors briefly yesterday urine cx with GNR - likely to be e.coli admission blood cx's positive - Bio[employer] shows e.coli without resistance genes given pt's weight will increase rocephin to 2gm IV daily cont stress-dose IV hydrocortisone follow cultures (2) E. coli bacteremia: Plan: as above source - urinary tract doubt sacral decub as source but can't exclude it 100% (3) Sepsis: Plan: as above (4) Acute UTI (urinary tract infection): Plan: presumed 2nd e.coli cont IV antibiotics (5) Hyponatremia: Plan: urine osm quite low urine Na <10 suggesting solute deficiency; further, she is not on chronic diuretics although she has some edema peripherally she otherwise does not examine in decompensated CHF she appears intravascularly volume contracted consider a liter of LR, reassess volume status, and check BMPs serially could consider NaCl tabs but uncertain she could take it by mouth at this time TSH 08/2023 wnl treating with stress-dose IV steroids (6) Diabetes mellitus type 2, uncontrolled: Plan: hba1c 5.4% was on metformin, januvia, and lantus/novolog at time of admission presented with hypoglycemia in the setting of #1 above now resolved cont ICU hyperglycemic protocol (7) Chronic respiratory failure with hypoxia and hypercapnia: Plan: On 4 L NC at baseline (8) Stage II pressure ulcer: Plan: Wound care nurse consult Daily wound care (9) Hx of Clostridium difficile infection: Plan: Patient recently completed course of Flagyl x 14 days by report narrow IV abx when able (10) Chronic right-sided congestive heart failure: Plan: although she has peripheral edema in her arms/legs, she otherwise is not Anasarca (11) Hyperkalemia: Plan: serial BMPs 2nd to shock, decreased renal perfusion, ?relative adrenal insufficiency consider patiromer or similar did receive IV calcium gluconate this am by ICU attending (12) Elevated troponin: Plan: peak HS troponin high 40s no evidence of ACS (13) Chronic obstructive pulmonary disease: Plan: with resulting chronic hypoxic respiratory failure not in exacerbation at this time (14) Acute metabolic encephalopathy: Plan: 2nd to #1 supportive care in light of prior ICH consider non-contrast head CT check an ammonia level (15) Tachycardia: Plan: yesterday her presenting EKG showed a.fib today her HR was ~120 BPM and 12-lead EKG shows suspected 2:1 atrial flutter echo findings noted (preserved LV function, but evidence of cor pulmonale) uncertain duration of her atrial-based dysrhythmia high CHADs-VASC score - strongly consider anticoagulation unable to give AV chang agents due to low BP since chronicity of her a.fib/flutter is not known taking a rhythm control approach likely unsafe at this time cont tele (16) Peripheral neuropathy: Plan: cont gabapentin (17) Mood disorder: Plan: cont seroquel cont remeron Admission and Anticipated Discharge Date Admission Date: November 09, 2023 Subjective tele with what appears to be atrial flutter, rate about 120 12-lead EKG obtained - my reading - 2:1 flutter patient was sleepy during the visit but able to answer questions at one point she asked "am I going to ?" I explained she had sepsis from UTI and that with time/abx most individuals can surmount this she denied chest pain, abd pain no nausea denied any dyspnea Review of Systems Review of Systems: CV - no orthopnea, no chest pain pulm - no dyspnea GI - no abd pain, no vomiting - corona in place Physical Exam Physical Exam: gen - obese, appears ill, confused, sleepy neck - no obvious JVD mouth - MM very dry heart - tachy, s1 s2, no obvious murmur lungs - CTA anteriorly, bases decreased, no adventitious sounds abd - soft NT ND BS+; no obvious HSM; hernia present - reducible ext - 1+ edema b/l arms and legs; pulses feet 1-2+ b/l neuro - no asterixis psych - oriented to person and place ("hospital") Results & Data Results & Data Vital Signs (Past 12 Hours) Vital Signs Temp Pulse Resp BP Pulse Ox O2 Del Method O2 Flow Rate 11/10/23 12:00 118/87 11/10/23 12:00 111 H 17 98 11/10/23 12:00 36.8 C 11/10/23 11:30 119 H 19 98 11/10/23 11:15 128/75 11/10/23 11:15 110 H 16 99 11/10/23 11:01 130/72 11/10/23 11:01 108 H 17 98 11/10/23 11:00 109 H 17 97 11/10/23 10:45 111/82 11/10/23 10:45 103 H 14 99 11/10/23 10:30 123/75 11/10/23 10:30 118 H 18 95 11/10/23 10:15 117 H 18 96 11/10/23 10:15 106/86 11/10/23 10:00 106/77 11/10/23 10:00 118 H 24 97 11/10/23 09:46 110 H 23 97 11/10/23 09:46 118/67 11/10/23 09:31 114/76 11/10/23 09:31 114 H 18 95 11/10/23 09:30 114 H 17 97 11/10/23 09:15 107 H 21 91 11/10/23 09:15 123/86 11/10/23 09:01 127/97 11/10/23 09:01 107 H 21 97 11/10/23 09:00 117 H 15 97 11/10/23 08:45 119 H 17 98 11/10/23 08:45 96/72 L 11/10/23 08:30 121 H 18 96 11/10/23 08:30 116/73 11/10/23 08:15 103/79 11/10/23 08:15 113 H 14 97 11/10/23 08:00 Nasal Cannula 4 11/10/23 08:00 119/72 11/10/23 08:00 117 H 19 92 11/10/23 08:00 36.8 C 11/10/23 07:45 105/77 11/10/23 07:45 119 H 21 95 11/10/23 07:30 117/71 11/10/23 07:30 120 H 22 95 11/10/23 07:15 120/68 11/10/23 07:15 120 H 31 H 97 11/10/23 07:00 112 H 15 98 11/10/23 07:00 106/80 11/10/23 05:45 120 H 20 97 11/10/23 05:45 90/67 L 11/10/23 05:30 97/75 L 11/10/23 05:30 116 H 17 97 11/10/23 05:15 105/76 11/10/23 05:15 109 H 18 97 11/10/23 05:00 100/75 11/10/23 05:00 118 H 18 97 11/10/23 04:45 102/77 11/10/23 04:45 119 H 19 95 11/10/23 04:30 102/72 11/10/23 04:30 119 H 19 96 11/10/23 04:15 120 H 25 H 94 11/10/23 04:15 110/76 11/10/23 04:00 96/68 L 11/10/23 04:00 104 H 15 97 11/10/23 04:00 36.9 C 11/10/23 03:45 96/72 L 11/10/23 03:45 104 H 16 97 11/10/23 03:30 88/75 L 11/10/23 03:30 112 H 15 97 11/10/23 03:15 98/71 L 11/10/23 03:15 98 H 18 97 11/10/23 03:00 114/71 11/10/23 03:00 115 H 15 97 11/10/23 02:45 108/70 11/10/23 02:45 111 H 15 98 11/10/23 02:30 103/72 11/10/23 02:30 104 H 15 97 Laboratory Results Laboratory Results - last 24 hr 11/09/23 11/09/23 11/09/23 13:40 21:52 23:15 WBC RBC Hgb Hct MCV MCH MCHC RDW Std Deviation RDW Coeff of Vikas Plt Count MPV Immature Gran % (Auto) Neut % (Auto) Lymph % (Auto) Alexander % (Auto) Eos % (Auto) Baso % (Auto) Neut # (Auto) Lymph # (Auto) Alexander # (Auto) Eos # (Auto) Baso # (Auto) Immature Gran # (Auto) Echinocytes Sodium 122 L Potassium 5.1 Chloride 92 L Carbon Dioxide 20 L Anion Gap 10 BUN 34 H Creatinine 0.87 Est Cr Clr Drug Dosing 65.5 Est GFR ( Amer) 77.1 Est GFR (Non-Af Amer) 66.6 BUN/Creatinine Ratio 39.1 H Glucose 92 POC Glucose Estimat Average Glucose Hemoglobin A1c Lactate 2.0 Calcium 7.7 L Phosphorus Magnesium Total Bilirubin Direct Bilirubin AST ALT Alkaline Phosphatase Ammonia Total Protein Albumin Urine Osmolality Urine Sodium Urine Potassium Urine Chloride Nasal Screen MRSA (PCR) Negative Enterobacterales (PCR) DETECTED A E. coli (PCR) DETECTED A mcr-1 Colistin Res Gene PCR Not Detected blaIMP Car res Gene PCR Not Detected KPC-Carbap Res Gene PCR Not Detected blaNDM Car Res Gene PCR Not Detected OXA-48 Carbapenem Resis Gene (PCR) Not Detected blaVIM Car Res Gene PCR Not Detected CTX-M Gene Resistance (PCR) Not Detected Bld Cult ID Panel PCR See PCR Comment 11/10/23 11/10/23 11/10/23 03:51 05:44 07:31 WBC 13.30 H RBC 4.74 Hgb 13.7 Hct 40.2 MCV 84.8 MCH 28.9 MCHC 34.1 RDW Std Deviation 59.7 H RDW Coeff of Vikas 19.1 H Plt Count 399 MPV 8.5 L Immature Gran % (Auto) 0.5 Neut % (Auto) 95.0 Lymph % (Auto) 2.5 Alexander % (Auto) 1.7 Eos % (Auto) 0.1 Baso % (Auto) 0.2 Neut # (Auto) 12.66 H Lymph # (Auto) 0.33 L Alexander # (Auto) 0.22 Eos # (Auto) 0.01 Baso # (Auto) 0.02 Immature Gran # (Auto) 0.06 Echinocytes 1+ Sodium Potassium Chloride Carbon Dioxide Anion Gap BUN Creatinine Est Cr Clr Drug Dosing Est GFR ( Amer) Est GFR (Non-Af Amer) BUN/Creatinine Ratio Glucose POC Glucose 107 H Estimat Average Glucose 108 Hemoglobin A1c 5.4 Lactate Calcium Phosphorus 3.5 Magnesium 1.8 Total Bilirubin 0.7 Direct Bilirubin 0.2 AST 57 H ALT 34 Alkaline Phosphatase 213 H Ammonia Total Protein 5.9 L Albumin 2.3 L Urine Osmolality 172 L Urine Sodium < 10 Urine Potassium 16.7 Urine Chloride 25 Nasal Screen MRSA (PCR) Enterobacterales (PCR) E. coli (PCR) mcr-1 Colistin Res Gene PCR blaIMP Car res Gene PCR KPC-Carbap Res Gene PCR blaNDM Car Res Gene PCR OXA-48 Carbapenem Resis Gene (PCR) blaVIM Car Res Gene PCR CTX-M Gene Resistance (PCR) Bld Cult ID Panel PCR 11/10/23 11/10/23 11/10/23 07:32 09:32 10:19 WBC RBC Hgb Hct MCV MCH MCHC RDW Std Deviation RDW Coeff of Vikas Plt Count MPV Immature Gran % (Auto) Neut % (Auto) Lymph % (Auto) Alexander % (Auto) Eos % (Auto) Baso % (Auto) Neut # (Auto) Lymph # (Auto) Alexander # (Auto) Eos # (Auto) Baso # (Auto) Immature Gran # (Auto) Echinocytes Sodium Cancelled 124 L 124 L Potassium Cancelled TNP 5.6 H Chloride Cancelled 97 L 94 L Carbon Dioxide Cancelled 18 L 18 L Anion Gap Cancelled 9 12 H BUN Cancelled 36 H 34 H Creatinine Cancelled 0.74 0.74 Est Cr Clr Drug Dosing Cancelled 77.1 77.1 Est GFR ( Amer) Cancelled 93.8 93.8 Est GFR (Non-Af Amer) Cancelled 80.9 80.9 BUN/Creatinine Ratio Cancelled 48.6 H 45.9 H Glucose Cancelled 122 H 120 H POC Glucose Estimat Average Glucose Hemoglobin A1c Lactate Calcium Cancelled 7.0 L 7.6 L Phosphorus Magnesium Total Bilirubin Direct Bilirubin AST ALT Alkaline Phosphatase Ammonia Total Protein Albumin Urine Osmolality Urine Sodium Urine Potassium Urine Chloride Nasal Screen MRSA (PCR) Enterobacterales (PCR) E. coli (PCR) mcr-1 Colistin Res Gene PCR blaIMP Car res Gene PCR KPC-Carbap Res Gene PCR blaNDM Car Res Gene PCR OXA-48 Carbapenem Resis Gene (PCR) blaVIM Car Res Gene PCR CTX-M Gene Resistance (PCR) Bld Cult ID Panel PCR 11/10/23 11/10/23 11/10/23 11:47 15:03 16:06 WBC RBC Hgb Hct MCV MCH MCHC RDW Std Deviation RDW Coeff of Vikas Plt Count MPV Immature Gran % (Auto) Neut % (Auto) Lymph % (Auto) Alexander % (Auto) Eos % (Auto) Baso % (Auto) Neut # (Auto) Lymph # (Auto) Alexander # (Auto) Eos # (Auto) Baso # (Auto) Immature Gran # (Auto) Echinocytes Sodium 124 L Potassium 5.3 H Chloride 91 L Carbon Dioxide 19 L Anion Gap 14 H BUN 34 H Creatinine 0.75 Est Cr Clr Drug Dosing 76.1 Est GFR ( Amer) 92.3 Est GFR (Non-Af Amer) 79.6 BUN/Creatinine Ratio 45.3 H Glucose 127 H POC Glucose 109 H 124 H Estimat Average Glucose Hemoglobin A1c Lactate Calcium 8.1 L Phosphorus 3.8 Magnesium 2.0 Total Bilirubin Direct Bilirubin AST ALT Alkaline Phosphatase Ammonia Cancelled Total Protein Albumin Urine Osmolality Urine Sodium Urine Potassium Urine Chloride Nasal Screen MRSA (PCR) Enterobacterales (PCR) E. coli (PCR) mcr-1 Colistin Res Gene PCR blaIMP Car res Gene PCR KPC-Carbap Res Gene PCR blaNDM Car Res Gene PCR OXA-48 Carbapenem Resis Gene (PCR) blaVIM Car Res Gene PCR CTX-M Gene Resistance (PCR) Bld Cult ID Panel PCR 11/10/23 11/10/23 11/10/23 17:07 18:43 20:08 WBC RBC Hgb Hct MCV MCH MCHC RDW Std Deviation RDW Coeff of Vikas Plt Count MPV Immature Gran % (Auto) Neut % (Auto) Lymph % (Auto) Alexander % (Auto) Eos % (Auto) Baso % (Auto) Neut # (Auto) Lymph # (Auto) Alexander # (Auto) Eos # (Auto) Baso # (Auto) Immature Gran # (Auto) Echinocytes Sodium 122 L Potassium 5.3 H Chloride 91 L Carbon Dioxide 18 L Anion Gap 13 H BUN 34 H Creatinine 0.65 Est Cr Clr Drug Dosing 87.8 Est GFR ( Amer) 102.8 Est GFR (Non-Af Amer) 88.7 BUN/Creatinine Ratio 52.3 H Glucose 137 H POC Glucose 205 H Estimat Average Glucose Hemoglobin A1c Lactate Calcium 7.9 L Phosphorus Magnesium Total Bilirubin Direct Bilirubin AST ALT Alkaline Phosphatase Ammonia TNP 15.0 L Total Protein Albumin Urine Osmolality Urine Sodium Urine Potassium Urine Chloride Nasal Screen MRSA (PCR) Enterobacterales (PCR) E. coli (PCR) mcr-1 Colistin Res Gene PCR blaIMP Car res Gene PCR KPC-Carbap Res Gene PCR blaNDM Car Res Gene PCR OXA-48 Carbapenem Resis Gene (PCR) blaVIM Car Res Gene PCR CTX-M Gene Resistance (PCR) Bld Cult ID Panel PCR 11/10/23 22:34 WBC RBC Hgb Hct MCV MCH MCHC RDW Std Deviation RDW Coeff of Vikas Plt Count MPV Immature Gran % (Auto) Neut % (Auto) Lymph % (Auto) Alexander % (Auto) Eos % (Auto) Baso % (Auto) Neut # (Auto) Lymph # (Auto) Alexander # (Auto) Eos # (Auto) Baso # (Auto) Immature Gran # (Auto) Echinocytes Sodium 122 L Potassium 5.1 Chloride 91 L Carbon Dioxide 18 L Anion Gap 13 H BUN 34 H Creatinine 0.63 Est Cr Clr Drug Dosing 90.6 Est GFR ( Amer) 103.9 Est GFR (Non-Af Amer) 89.6 BUN/Creatinine Ratio 54.0 H Glucose 162 H POC Glucose Estimat Average Glucose Hemoglobin A1c Lactate Calcium 7.9 L Phosphorus Magnesium Total Bilirubin Direct Bilirubin AST ALT Alkaline Phosphatase Ammonia Total Protein Albumin Urine Osmolality Urine Sodium Urine Potassium Urine Chloride Nasal Screen MRSA (PCR) Enterobacterales (PCR) E. coli (PCR) mcr-1 Colistin Res Gene PCR blaIMP Car res Gene PCR KPC-Carbap Res Gene PCR blaNDM Car Res Gene PCR OXA-48 Carbapenem Resis Gene (PCR) blaVIM Car Res Gene PCR CTX-M Gene Resistance (PCR) Bld Cult ID Panel PCR PG Care Time/CCT Total # of Minutes Spent Total Time Spent with Patient: Total time spent is greater than 50% in coordination of care (as documented) at patient's floor/unit and/or counseling patient: Coding Level of Care Code 76103 SUB INP/OBS CARE 235MIN Diagnoses Septic shock due to Escherichia coli A41.51; R65.21 E. coli bacteremia R78.81; B96.20 Sepsis A41.9; R65.20 Sepsis acute organ dysfunction status: with acute organ dysfunction Sepsis type: sepsis due to unspecified organism Severe sepsis acute organ dysfunction type: unspecified Severe sepsis shock status: unspecified Acute UTI (urinary tract infection) N39.0 Hyponatremia E87.1 Diabetes mellitus type 2, uncontrolled E11.65 Chronic respiratory failure with hypoxia and hypercapnia J96.11; J96.12 Stage II pressure ulcer L89.92 Hx of Clostridium difficile infection Z86.19 Chronic right-sided congestive heart failure I50.812 Hyperkalemia E87.5 Elevated troponin R79.89 Chronic obstructive pulmonary disease, unspecified COPD type J44.9 COPD type: unspecified COPD Acute metabolic encephalopathy G93.41 Tachycardia R00.0 Other polyneuropathy G62.89 Peripheral neuropathy type: polyneuropathy, other Mood disorder F39 (3) Sepsis Sepsis acute organ dysfunction status: with acute organ dysfunction Sepsis type: sepsis due to unspecified organism Severe sepsis acute organ dysfunction type: unspecified Severe sepsis shock status: unspecified Qualified Code(s): A41.9 - Sepsis, unspecified organism; R65.20 - Severe sepsis without septic shock (13) Chronic obstructive pulmonary disease COPD type: unspecified COPD Qualified Code(s): J44.9 - Chronic obstructive pulmonary disease, unspecified (16) Peripheral neuropathy Peripheral neuropathy type: polyneuropathy, other Qualified Code(s): G62.89 - Other specified polyneuropathies
[2023-11-10 16:09] LABS: Calcium 8.1 mg/dl (8.6-10.3); Potassium 5.3 mmol/L (3.5-5.1)
[2023-11-10 16:14] LABS: BUN Creatinine Ratio 45.3 (10-20); Creatinine Clr Calc Pharmacy 76.1 ml/min; Est GFR (African American) 92.3 ml/min; Est GFR (Non-African American) 79.6 ml/min; Phosphorus 3.8 mg/dl (2.5-4.9)
--- NOTE | 2023-11-10 17:09 | XCELERA ---
[id number]
[2023-11-10] MEDS: ICU ELECTROLYTE REPLACEMENT PROTOCOL SCH (17:57)
[2023-11-10] MEDS ORDERED: ICU ELECTROLYTE REPLACEMENT PROTOCOL SCH (18:00)
[2023-11-10 19:14] LABS: BUN Creatinine Ratio 52.3 (10-20); Calcium 7.9 mg/dl (8.6-10.3); Creatinine Clr Calc Pharmacy 87.8 ml/min; Est GFR (African American) 102.8 ml/min; Est GFR (Non-African American) 88.7 ml/min; Potassium 5.3 mmol/L (3.5-5.1)
[2023-11-10 23:07] LABS: Calcium 7.9 mg/dl (8.6-10.3); Creatinine Clr Calc Pharmacy 90.6 ml/min; Est GFR (African American) 103.9 ml/min; Est GFR (Non-African American) 89.6 ml/min; Potassium 5.1 mmol/L (3.5-5.1)
[2023-11-11 05:03] LABS: Hematocrit (blood only) 38.4 % (37.0-47.0); Hemoglobin 13.6 g/dl (12.0-16.0); Mean Corpuscular Hemoglobin 29.4 pg (25.0-34.0); Mean Corpuscular Hgb Conc 35.4 g/dL (32.0-36.0); Mean Corpuscular Volume 83.1 fL (80.0-100.0); Mean Platelet Volume 8.4 fL (9.4-12.4); Platelet Count 347 K/uL (130-400); RDW Standard Deviation 62.9 fL (36.4-46.3); Red Blood Count 4.62 M/uL (4.20-5.40); White Blood Count 10.24 K/ul (4.8-10.8)
[2023-11-11 05:13] LABS: BUN Creatinine Ratio 52.9 (10-20); Calcium 7.7 mg/dl (8.6-10.3); Creatinine Clr Calc Pharmacy 83.9 ml/min; Est GFR (African American) 101.3 ml/min; Est GFR (Non-African American) 87.4 ml/min; Magnesium 1.7 mg/dl (1.7-2.4); Phosphorus 3.1 mg/dl (2.5-4.9)
[2023-11-11 05:42] LABS: Anisocytosis Present; Basophils # (auto) 0.02 K/uL (0.00-0.20); Basophils % (auto) 0.2 %; Eosinophils # (auto) 0.02 K/uL (0.00-0.50); Eosinophils % (auto) 0.2 %; Immature Granulocytes # (auto) 0.06 K/uL (0.01-0.20); Immature Granulocytes % (auto) 0.6 %; Lymphocytes # (auto) 0.57 K/uL (1.20-3.40); Lymphocytes % (auto) 5.6 %; Monocytes # (auto) 0.32 K/uL (0.11-0.59); Monocytes % (auto) 3.1 %; Neutrophils # (auto) 9.25 K/uL (1.40-6.50); Neutrophils % (auto) 90.3 %
--- NOTE | 2023-11-11 07:22 | Electrocardiogram Report ---
Test Reason : Blood Pressure : / mmHG Vent. Rate : 120 BPM Atrial Rate : 120 BPM P-R Int : 096 ms QRS Dur : 156 ms QT Int : 378 ms P-R-T Axes : -21 152 -74 degrees QTc Int : 534 ms Atrial flutter Right bundle branch block T wave abnormality, consider inferior ischemia Abnormal ECG When compared with ECG of 10-NOV-2023 16:59, (unconfirmed) Atrial flutter has replaced Ectopic atrial rhythm Confirmed by Landon Malcolm ([id number]) on 11/11/2023 7:22:17 AM Referred By: REFERRED SELF Confirmed By:Michael Malcolm
--- NOTE | 2023-11-11 07:23 | Electrocardiogram Report ---
Test Reason : Blood Pressure : / mmHG Vent. Rate : 126 BPM Atrial Rate : 126 BPM P-R Int : 104 ms QRS Dur : 146 ms QT Int : 384 ms P-R-T Axes : -39 155 -82 degrees QTc Int : 556 ms Atrial flutter Right bundle branch block Abnormal ECG Confirmed by Landon Malcolm ([id number]) on 11/11/2023 7:23:03 AM Referred By: REFERRED SELF Confirmed By:Michael Malcolm
--- NOTE | 2023-11-11 07:57 | Critical Care Progress Note ---
Date of Service November 11, 2023 Assessment & Plan (1) E. coli bacteremia: (2) Sepsis: (3) Stage II pressure ulcer: (4) Hyponatremia: Plan Impression: 73-year-old female with complex past medical history including diabetes, hypoxemic respiratory failure, depression, obesity, coronary disease, and prior subarachnoid hemorrhage brought in with fatigue poor appetite and hypotension found to have E. coli bacteremia likely from urinary source with septic shock. Blood pressure remains slightly soft. Mental status slowly improving Recommendations: 1. Neurologic: Patient demonstrated some encephalopathy. Unclear baseline. Her sensorium appears to be clearing. No indication for advanced imaging or additional workup at this point in time. Continue to follow. 2. Cardiovascular: Septic shock: Blood pressure slightly soft and will see whether or not we can add a dose of midodrine. Will give albumin. Pressors have been weaned off. Lactate clearing. Echocardiogram with poor quality imaging but no obvious abnormalities 3. Pulmonary: No current issues. 4. ID: E. coli bacteremia. Continue Rocephin. Follow fever curve and white blood cell count. Anticipate 7 to 10 days of IV therapy 5. Renal: Hyponatremia: Start urea. 6. GI: Okay to advance diet as tolerated. If unable to take p.o. medications will have nursing place nasoenteric tube for enteric access. 7. Endocrine: Glycemic control per protocol. Currently on stress dose steroids for relative adrenal insufficiency which can be weaned rapidly 8. Heme-onc: No current issues. Will observe in the ICU today pending improvement in her mental status and hemodynamics Admission and Anticipated Discharge Date Admission Date: November 09, 2023 Subjective Patient seen and examined. EMR reviewed. Discussed with critical care JOE and bedside critical care nurse and on multidisciplinary rounds. Patient is more awake today. Her tachycardia has resolved but blood pressures on the soft side. She denies any complaints and specifically states that she has no chest pain, palpitations, or shortness of breath. Review of Systems Review of Systems: All systems reviewed & are unremarkable except as noted in Subjective Physical Exam Constitutional: + morbidly obese and + lethargic; no acu te distress Neck: trachea midline, no thyromegaly Respiratory: normal respiratory effort, lungs clear to auscultation Cardiovascular: RRR, no murmur, no edema Gastrointestinal (Abdomen): normal bowel sounds, soft, nontender, no hepatosplenomegaly Musculoskeletal: Extremities: extremities normal to inspection Skin: no rashes, warm and dry Lymphatic: no cervical lymphadenopathy Results & Data Results & Data Vital Signs (Past 12 Hours) Vital Signs Temp Pulse Resp BP Pulse Ox O2 Del Method O2 Flow Rate 11/11/23 06:00 84/65 L 11/11/23 06:00 121 H 15 97 11/11/23 05:30 103 H 25 H 95 11/11/23 05:01 100 H 17 96 11/11/23 05:01 87/67 L 11/11/23 05:00 107 H 16 96 11/11/23 04:30 104 H 24 96 11/11/23 04:00 121 H 21 97 11/11/23 04:00 100/63 11/11/23 04:00 36.7 C 11/11/23 03:30 113 H 17 97 11/11/23 03:00 113 H 17 97 11/11/23 02:30 116 H 18 94 11/11/23 02:02 123 H 20 93 11/11/23 02:02 92/73 L 11/11/23 02:00 71/59 L 11/11/23 02:00 123 H 22 93 11/11/23 01:30 123 H 21 93 11/11/23 01:00 114 H 25 H 92 11/11/23 01:00 83/60 L 11/11/23 00:30 118 H 22 92 11/11/23 00:00 102/61 11/11/23 00:00 115 H 24 94 11/11/23 00:00 36.9 C 11/11/23 00:00 123 H 11/10/23 23:30 116 H 31 H 94 11/10/23 23:00 84/62 L 11/10/23 23:00 116 H 33 H 90 11/10/23 22:30 123 H 27 H 90 11/10/23 22:00 112 H 28 H 90 11/10/23 22:00 96/64 L 11/10/23 21:30 121 H 26 H 90 11/10/23 21:00 123 H 23 94 11/10/23 21:00 93/58 L 11/10/23 20:30 119 H 25 H 92 11/10/23 20:00 112 H 24 94 11/10/23 20:00 90/67 L 11/10/23 20:00 36.8 C 11/10/23 20:00 Nasal Cannula 4 Critical Care Results & Data Vital Signs (Past 12 Hours) Vital Signs Temp Pulse Resp BP Pulse Ox O2 Del Method O2 Flow Rate 11/11/23 06:00 84/65 L 11/11/23 06:00 121 H 15 97 11/11/23 05:30 103 H 25 H 95 11/11/23 05:01 100 H 17 96 11/11/23 05:01 87/67 L 11/11/23 05:00 107 H 16 96 11/11/23 04:30 104 H 24 96 11/11/23 04:00 121 H 21 97 11/11/23 04:00 100/63 11/11/23 04:00 36.7 C 11/11/23 03:30 113 H 17 97 11/11/23 03:00 113 H 17 97 11/11/23 02:30 116 H 18 94 11/11/23 02:02 123 H 20 93 11/11/23 02:02 92/73 L 11/11/23 02:00 71/59 L 11/11/23 02:00 123 H 22 93 11/11/23 01:30 123 H 21 93 11/11/23 01:00 114 H 25 H 92 11/11/23 01:00 83/60 L 11/11/23 00:30 118 H 22 92 11/11/23 00:00 102/61 11/11/23 00:00 115 H 24 94 11/11/23 00:00 36.9 C 11/11/23 00:00 123 H 11/10/23 23:30 116 H 31 H 94 11/10/23 23:00 84/62 L 11/10/23 23:00 116 H 33 H 90 11/10/23 22:30 123 H 27 H 90 11/10/23 22:00 112 H 28 H 90 11/10/23 22:00 96/64 L 11/10/23 21:30 121 H 26 H 90 11/10/23 21:00 123 H 23 94 11/10/23 21:00 93/58 L 11/10/23 20:30 119 H 25 H 92 11/10/23 20:00 112 H 24 94 11/10/23 20:00 90/67 L 11/10/23 20:00 36.8 C 11/10/23 20:00 Nasal Cannula 4 Lab & Micro Results (Past 24 Hours) RBC 4.62 M/uL (4.20-5.40) 11/11/23 WBC 10.24 K/ul (4.8-10.8) 11/11/23 Hgb 13.6 g/dl (12.0-16.0) 11/11/23 Hct 38.4 % (37.0-47.0) 11/11/23 MCV 83.1 fL (80.0-100.0) 11/11/23 MCH 29.4 pg (25.0-34.0) 11/11/23 MCHC 35.4 g/dL (32.0-36.0) 11/11/23 RDW Standard Deviation 62.9 fL (36.4-46.3) H 11/11/23 RDW Coefficient of Variation 21.0 % (11.5-14.5) H 11/11/23 Plt Count 347 K/uL (130-400) 11/11/23 MPV 8.4 fL (9.4-12.4) L 11/11/23 Neutrophils (%) (Auto) 90.3 % 11/11/23 Lymphocytes (%) (Auto) 5.6 % 11/11/23 Monocytes # (Auto) 0.32 K/uL (0.11-0.59) 11/11/23 Eosinophils # (Auto) 0.02 K/uL (0.00-0.50) 11/11/23 Immature Granulocyte % (Auto) 0.6 % 11/11/23 Neutrophils # (Auto) 9.25 K/uL (1.40-6.50) H 11/11/23 Lymphocytes # (Auto) 0.57 K/uL (1.20-3.40) L 11/11/23 Monocytes # (Auto) 0.32 K/uL (0.11-0.59) 11/11/23 Eosinophils # (Auto) 0.02 K/uL (0.00-0.50) 11/11/23 Basophils # (Auto) 0.02 K/uL (0.00-0.20) 11/11/23 Immature Granulocyte # (Auto) 0.06 K/uL (0.01-0.20) 05/12/2 4 Anisocytosis Present 11/11/23 Na 122 mmol/L (136-145) L 11/11/23 K 5.0 mmol/L (3.5-5.1) 11/11/23 Cl 92 mmol/L (98-107) L 11/11/23 CO2 20 mmol/L (21-32) L 11/11/23 Anion Gap 10 (3-11) 11/11/23 BUN 36 mg/dl (6-23) H 11/11/23 Creatinine 0.68 mg/dl (0.6-1.2) 11/11/23 Estimated GFR ( Amer) 101.3 ml/min 11/11/23 Estimated GFR (Non-Af Amer) 87.4 ml/min 11/11/23 BUN/Creatinine Ratio 52.9 (10-20) H 11/11/23 Glu 164 mg/dl (70-99(Fasting)) H 11/11/23 Ca 7.7 mg/dl (8.6-10.3) L 11/11/23 Phosphorus Level 3.1 mg/dl (2.5-4.9) 11/11/23 Mg 1.7 mg/dl (1.7-2.4) 11/11/23 04:43 Calcium Level 7.7 mg/dl (8.6-10.3) L 11/11/23 04:43 Microbiology 11/09/23 13:40 Aerobic Blood Culture - Preliminary Blood Gram negative bacilli Anaerobic Blood Culture - Preliminary No growth in Anaerobic bottle after 24 hours. 11/09/23 13:47 Urine Culture - Preliminary Urine,Clean Catch Escherichia coli 11/09/23 14:40 Aerobic Blood Culture - Preliminary Blood No growth in Aerobic bottle after 24 hours. Anaerobic Blood Culture - Preliminary No growth in Anaerobic bottle after 24 hours. I & O Totals 24 Hours 11/10/23 11/11/23 11/12/23 06:59 06:59 06:59 Intake Total 1810.543 / 1810.543 295 / 295 Output Total 3390 / 3390 1225 / 1225 Balance -1579.457 / -1579.457 -930 / -930 Cumulative 11/09/23 12:33 thru 11/11/23 06:06 Intake Total 2105.543 Output Total 4615 Balance -2509.457 RT Ventilator Mngmt (Last Documented) Ventilator Ordered Settings Respiratory Rate 15 11/11/23 06:00 Ventilator - PT Measurements Respiratory Rate 15 Coding Level of Care Code 63047 SUB INP/OBS CARE 3/50MIN Diagnoses E. coli bacteremia R78.81; B96.20 Sepsis A41.9; R65.20 Sepsis acute organ dysfunction status: with acute organ dysfunction Sepsis type: sepsis due to unspecified organism Severe sepsis acute organ dysfunction type: unspecified Severe sepsis shock status: unspecified Stage II pressure ulcer L89.92 Hyponatremia E87.1 (2) Sepsis Sepsis acute organ dysfunction status: with acute organ dysfunction Sepsis type: sepsis due to unspecified organism Severe sepsis acute organ dysfunction type: unspecified Severe sepsis shock status: unspecified Qualified Code(s): A41.9 - Sepsis, unspecified organism; R65.20 - Severe sepsis without septic shock
[2023-11-11] MEDS: ALBUMIN 25% 25 GM/100 ML VIAL IV SCH (08:12)
[2023-11-11] MEDS: CALCIUM GLUCONATE 1,000 MG/60 ML BAG IV SCH (08:26)
[2023-11-11] MEDS: MIDODRINE HCL 10 MG TAB PO SCH (08:28)
[2023-11-11] MEDS: UREA (UREA-NA) 15 GM PACK PO SCH (08:29)
[2023-11-11] MEDS: cefTRIAXone SODIUM 2,000 MG/50 ML BAG IV SCH (11:21)
[2023-11-11 17:31] LABS: BUN Creatinine Ratio 56.5 (10-20); Calcium 8.2 mg/dl (8.6-10.3); Creatinine Clr Calc Pharmacy 95.6 ml/min; Est GFR (African American) 104.4 ml/min; Est GFR (Non-African American) 90.1 ml/min; Magnesium 1.7 mg/dl (1.7-2.4); Potassium 4.8 mmol/L (3.5-5.1)
--- NOTE | 2023-11-11 17:49 | Hospitalist Progress Note ---
Date of Service November 11, 2023 Assessment & Plan (1) Septic shock due to Escherichia coli: Plan: source - urinary tract (UTI) CT abd/pelvis without obstructing kidney stone or other urinary tract abnormalities previously on cefepime now on rocephin 2gm IV daily was only on pressors briefly shortly after admission urine cx with e.coli sens to rocephin admission blood cx's positive - Bio[employer] shows e.coli as well; full sensitivity report not back yet cont stress-dose IV hydrocortisone follow cultures (2) E. coli bacteremia: Plan: as above source - urinary tract doubt sacral decub as source but can't exclude it 100% has a port that is nonfunctioning but if that was the source I would anticipate more blood cultures being positive (and ecoli seldomly causes port infection anyway) (3) Sepsis: Plan: as above (4) Acute UTI (urinary tract infection): Plan: 2nd e.coli cont IV antibiotics (5) Hyponatremia: Plan: urine osm quite low urine Na <10 suggesting solute deficiency; further, she is not on chronic diuretics although she has some edema peripherally she otherwise does not examine in decompensated CHF she appears intravascularly volume contracted could consider NaCl tabs but uncertain she could take it by mouth at this time TSH 08/2023 wnl treating with stress-dose IV steroids defer Rx of low sodium to ICU team Na level is slowly improving (6) Diabetes mellitus type 2, uncontrolled: Plan: hba1c 5.4% was on metformin, januvia, and lantus/novolog at time of admission presented with hypoglycemia in the setting of #1 above now resolved cont ICU hyperglycemic protocol (7) Chronic respiratory failure with hypoxia and hypercapnia: Plan: On 4 L NC at baseline (8) Stage II pressure ulcer: Plan: Wound care nurse consult Daily wound care (9) Hx of Clostridium difficile infection: Plan: Patient recently completed course of Flagyl x 14 days by report narrow IV abx when able to prevent relapse (10) Chronic right-sided congestive heart failure: Plan: although she has peripheral edema in her arms/legs, she otherwise is not Anasarca (11) Hyperkalemia: Plan: resolved 2nd to shock, decreased renal perfusion, ?relative adrenal insufficiency (12) Elevated troponin: Plan: peak HS troponin high 40s no evidence of ACS likely myocardial demand ischemia in setting of #1 (13) Chronic obstructive pulmonary disease: Plan: with resulting chronic hypoxic respiratory failure not in exacerbation at this time (14) Acute metabolic encephalopathy: Plan: 2nd to #1 2nd to hyponatremia supportive care in light of prior ICH consider non-contrast head CT ammonia level was wnl most recent TSH wnl (15) Tachycardia: Plan: a.fib, 2:1 flutter, variable block flutter echo findings noted (preserved LV function, but evidence of cor pulmonale) uncertain duration of her atrial-based dysrhythmia high CHADs-VASC score - would need anticoagulation - but with prior ICH uncertain if optimal candidate unable to give AV chang agents due to low BP since chronicity of her a.fib/flutter is not known taking a rhythm control approach likely unsafe at this time cont tele defer Rx to ICU team (16) Peripheral neuropathy: Plan: cont gabapentin (17) Mood disorder: Plan: cont seroquel cont remeron (18) Goals of care, counseling/discussion: Plan: lengthy discussion held with pt's at bedside early in the day then, about 630pm this evening, had approximately 45 minute long goals of care discussion with pt's , daughter, and 2 [id number] went over current problems, treatments needed, lack of good IV access, altered MS, dysphagia and inability to swallow, etc questions answered options for care discussed including most aggressive care pathway vs middle of the road pathway vs pivoting to comfort care measures now family opting for middle ground approach - will give her ~2 days to see if she can improve enough to swallow safely, mentate better, and just improve in general with this approach we will not try to escalate her care, if possible she remains conditional code - family states they would still want trial of intubation/mech ventilation - apparently patient would be ok with this, but under no circumstances would CPR/shocks/etc be desired family thinks that if she did survive this hospital stay she would be ok with SN F placement again family also stated that if she worsened they would be ok with simply converting her to comfort care patient herself has told family she would want to at home, if possible, rather than the hospital lastly, we discussed palliative care and a formal palliative care consult; they are ok with such the above info was passed to the night-time ICU provider, CHARLOTTE Grady Plan total care activity time today 80 minutes between 2 bedside visits Admission and Anticipated Discharge Date Admission Date: November 09, 2023 Subjective events of overnight reviewed remains in a.flutter, variable block patient was very sleepy today during the visit she would open her eyes to her name being called, then quickly fall back asleep staff report they had a very hard time getting medicines into her and thus an NG tube order was given by Dr Gonzalez multiple attempts at NG tube placement were unsuccessful access has also been an issue, with multiple sticks/attempts for IV placement IV team ultimately got a 2nd IV placed during my visit the pt's arrived he reports she was dx with c diff while at [facility] and treated? came home from [facility] about 6 weeks ago then had recurrent c diff requiring Rx took about 14 days of Rx for the c diff - was finished with the course just before this admission during the time with c diff at home she was essentially bed-bound Review of Systems Review of Systems: Unobtainable due to cognitive status Physical Exam Physical Exam: gen - obese, appears ill, confused, sleepy; knew she was in the hospital but thought it was 1971 neck - no obvious JVD mouth - MM very dry heart - tachy, irregular, s1 s2, no obvious murmur lungs - CTA anteriorly, bases decreased, no adventitious sounds abd - soft NT ND BS+; no obvious HSM; hernia present - reducible ext - 1+ edema b/l arms and legs; pulses feet 1-2+ b/l psych - oriented to person and place ("hospital") but not time Results & Data Results & Data Vital Signs (Past 12 Hours) Vital Signs Temp Pulse Resp BP Pulse Ox O2 Del Method O2 Flow Rate 11/11/23 17:00 108 H 14 104/74 96 11/11/23 16:00 37.3 C 11/11/23 16:00 92 H 18 100/73 99 11/11/23 16:00 103 H 11/11/23 15:00 92 H 20 105/68 99 11/11/23 14:00 103 H 19 104/78 97 11/11/23 13:00 102 H 17 94/66 L 98 11/11/23 12:00 93 H 15 94/68 L 98 11/11/23 11:03 111 H 15 95/65 L 97 Nasal Cannula 4 11/11/23 10:00 102 H 24 102/85 95 11/11/23 09:00 95 H 21 88/67 L 96 11/11/23 08:00 36.6 C 11/11/23 08:00 95 H 11/11/23 08:00 Nasal Cannula 4 11/11/23 08:00 118 H 19 96/70 L 95 11/11/23 07:18 87 21 87/58 L 94 11/11/23 07:10 81 15 93/42 L 95 11/11/23 06:00 84/65 L 11/11/23 06:00 121 H 15 97 Laboratory Results Laboratory Results - last 24 hr 11/10/23 11/10/23 11/10/23 18:43 20:08 22:34 WBC RBC Hgb Hct MCV MCH MCHC RDW Std Deviation RDW Coeff of Vikas Plt Count MPV Immature Gran % (Auto) Neut % (Auto) Lymph % (Auto) [place] % (Auto) Eos % (Auto) Baso % (Auto) Neut # (Auto) Lymph # (Auto) [place] # (Auto) Eos # (Auto) Baso # (Auto) Immature Gran # (Auto) Anisocytosis Sodium 122 L 122 L Potassium 5.3 H 5.1 Chloride 91 L 91 L Carbon Dioxide 18 L 18 L Anion Gap 13 H 13 H BUN 34 H 34 H Creatinine 0.65 0.63 Est Cr Clr Drug Dosing 87.8 90.6 Est GFR ( Amer) 102.8 103.9 Est GFR (Non-Af Amer) 88.7 89.6 BUN/Creatinine Ratio 52.3 H 54.0 H Glucose 137 H 162 H POC Glucose 205 H Calcium 7.9 L 7.9 L Phosphorus Magnesium Ammonia 15.0 L 11/11/23 11/11/23 11/11/23 04:43 07:37 11:56 WBC 10.24 RBC 4.62 Hgb 13.6 Hct 38.4 MCV 83.1 MCH 29.4 MCHC 35.4 RDW Std Deviation 62.9 H RDW Coeff of Vikas 21.0 H Plt Count 347 MPV 8.4 L Immature Gran % (Auto) 0.6 Neut % (Auto) 90.3 Lymph % (Auto) 5.6 [place] % (Auto) 3.1 Eos % (Auto) 0.2 Baso % (Auto) 0.2 Neut # (Auto) 9.25 H Lymph # (Auto) 0.57 L [place] # (Auto) 0.32 Eos # (Auto) 0.02 Baso # (Auto) 0.02 Immature Gran # (Auto) 0.06 Anisocytosis Present Sodium 122 L Potassium 5.0 Chloride 92 L Carbon Dioxide 20 L Anion Gap 10 BUN 36 H Creatinine 0.68 Est Cr Clr Drug Dosing 83.9 Est GFR ( Amer) 101.3 Est GFR (Non-Af Amer) 87.4 BUN/Creatinine Ratio 52.9 H Glucose 164 H POC Glucose 152 H 124 H Calcium 7.7 L Phosphorus 3.1 Magnesium 1.7 Ammonia 11/11/23 11/11/23 16:24 16:59 WBC RBC Hgb Hct MCV MCH MCHC RDW Std Deviation RDW Coeff of Vikas Plt Count MPV Immature Gran % (Auto) Neut % (Auto) Lymph % (Auto) [place] % (Auto) Eos % (Auto) Baso % (Auto) Neut # (Auto) Lymph # (Auto) [place] # (Auto) Eos # (Auto) Baso # (Auto) Immature Gran # (Auto) Anisocytosis Sodium 125 L Potassium 4.8 Chloride 92 L Carbon Dioxide 23 Anion Gap 10 BUN 35 H Creatinine 0.62 Est Cr Clr Drug Dosing 95.6 Est GFR ( Amer) 104.4 Est GFR (Non-Af Amer) 90.1 BUN/Creatinine Ratio 56.5 H Glucose 123 H POC Glucose 116 H Calcium 8.2 L Phosphorus 3.0 Magnesium 1.7 Ammonia PG Care Time/CCT Total # of Minutes Spent Total Time Spent with Patient: Total time spent is greater than 50% in coordination of care (as documented) at patient's floor/unit and/or counseling patient: Prolonged Care Time Prolonged Care Time: Yes Total Prolonged Care Time: 80 Coding Level of Care Code 92020 SUB INP/OBS CARE 3/50MIN (25 - SIGNIFICANT, SEPARATELY IDENTIFIABLE ) Diagnoses Septic shock due to Escherichia coli A41.51; R65.21 E. coli bacteremia R78.81; B96.20 Sepsis A41.9; R65.20 Sepsis acute organ dysfunction status: with acute organ dysfunction Sepsis type: sepsis due to unspecified organism Severe sepsis acute organ dysfunction type: unspecified Severe sepsis shock status: unspecified Acute UTI (urinary tract infection) N39.0 Hyponatremia E87.1 Diabetes mellitus type 2, uncontrolled E11.65 Chronic respiratory failure with hypoxia and hypercapnia J96.11; J96.12 Stage II pressure ulcer L89.92 Hx of Clostridium difficile infection Z86.19 Chronic right-sided congestive heart failure I50.812 Hyperkalemia E87.5 Elevated troponin R79.89 Chronic obstructive pulmonary disease, unspecified COPD type J44.9 COPD type: unspecified COPD Acute metabolic encephalopathy G93.41 Tachycardia R00.0 Other polyneuropathy G62.89 Peripheral neuropathy type: polyneuropathy, other Mood disorder F39 Goals of care, counseling/discussion Z71.89 Additional Codes Prolonged Care Time - Prolonged Care Time: Yes ([id number]) (3) Sepsis Sepsis acute organ dysfunction status: with acute organ dysfunction Sepsis type: sepsis due to unspecified organism Severe sepsis acute organ dysfunction type: unspecified Severe sepsis shock status: unspecified Qualified Code(s): A41.9 - Sepsis, unspecified organism; R65.20 - Severe sepsis without septic shock (13) Chronic obstructive pulmonary disease COPD type: unspecified COPD Qualified Code(s): J44.9 - Chronic obstructive pulmonary disease, unspecified (16) Peripheral neuropathy Peripheral neuropathy type: polyneuropathy, other Qualified Code(s): G62.89 - Other specified polyneuropathies
[2023-11-11] MEDS: MAGNESIUM SULFATE / D5W 1 GM/100 ML BAG IV SCH (17:54)
[2023-11-12 03:53] LABS: Base Excess VBG 0 mEq/L; HCO3 VBG 25 mmol/L; Oxygen Saturation VBG 85.8 %; PCO2 VBG 43 mmHg (38-50); PO2 VBG 58 mmHg; pH VBG 7.38 (7.36-7.41)
[2023-11-12 04:14] LABS: BUN Creatinine Ratio 55.9 (10-20); Calcium 8.3 mg/dl (8.6-10.3); Creatinine Clr Calc Pharmacy 100.5 ml/min; Est GFR (African American) 106.1 ml/min; Est GFR (Non-African American) 91.6 ml/min; Magnesium 2.6 mg/dl (1.7-2.4); Phosphorus 2.7 mg/dl (2.5-4.9); Potassium 4.5 mmol/L (3.5-5.1)
[2023-11-12 09:09] LABS: iSTAT Arterial Blood Gas HCO3 19 meg/L (19-24); iSTAT Arterial Blood Gas pCO2 31 mmHg (35-46); iSTAT Arterial Blood Gas pH 7.39 (7.35-7.45); iSTAT Arterial Blood Gas pO2 85 mmHg (80-95); iSTAT Carbon Dioxide 20 mmol/L (24-31); iSTAT Hematocrit 42 % (37-47); iSTAT Hemoglobin 14.3 g/dl (12.0-16.0); iSTAT Potassium 4.9 mmol/L (3.3-5.0); iSTAT Sodium 122 mmol/L (135-144)
--- NOTE | 2023-11-12 10:09 | Critical Care Progress Note ---
Date of Service November 12, 2023 Assessment & Plan (1) E. coli bacteremia: (2) Sepsis: (3) Stage II pressure ulcer: (4) Hyponatremia: Plan Impression: 73-year-old female with complex past medical history including diabetes, hypoxemic respiratory failure, depression, obesity, coronary disease, and prior subarachnoid hemorrhage brought in with fatigue poor appetite and hypotension found to have E. coli bacteremia likely from urinary source with septic shock. Blood pressure remains slightly soft. Mental status slowly improving Recommendations: 1. Neurologic: Patient demonstrated some encephalopathy. Unclear baseline. -Discussed with hospitalist medicine team: Obtain CTA rule out subacute CVA 2. Cardiovascular: Septic shock: Resolved - Prolonged QTc on EKG from 11/09 obtain EKG today: Resolved -Paroxysmal atrial flutter -Had previously been on systemic anticoagulation however has been taken off secondary to recurrent GI bleeding 3. Pulmonary: Normally to wear BiPAP at bedtime, currently on 15 over 5, 30% FiO2, persistent left infiltrate on chest x-ray, cannot participate in aggressive pulmonary toilet due to poor mental status. Adequately oxygenating, I am concerned of hypercapnia and ventilation will check VBG, this was adequate yesterday if continued adequacy will be reassured -ABG demonstrates mild acidosis, no significant hypercapnia at this time Significant history for recurrent mucous plugging -Patient has adamantly refused any additional bronchoscopies at this time 4. ID: E. coli bacteremia. Continue Rocephin. Follow fever curve and white blood cell count. Anticipate 7 to 10 days of IV therapy. Patient does have hardware: Artificial shoulder and permanent intravascular access increasing her concern to make sure her cultures do clear, repeat blood cultures ordered today -Poor vascular access IV team unable to obtain blood cultures 5. Renal: Hyponatremia: Continue urea. 6. GI: Okay to advance diet as tolerated. Multiple staff is attempted to place an NG tube unable to place previously. Will attempt today, if unable patient definitively needs some form of enteral access for medication administration, would consider interventional radiology 7. Endocrine: Glycemic control per protocol. Currently on stress dose steroids for relative adrenal insufficiency which can be weaned rapidly, off pressors x 24 hours will continue twice daily for 2 days then discontinue 8. Heme-onc: No current issues. 9. Poor vascular access, ultrasound-guided IV has been placed. 10. Lovenox for DVT prophylax, will consider transition to systemic anticoagulation Long-term care issues: Patient well known to medical staff, I have reviewed multiple palliative care discussions most recently August 28, 2023. Patient's clinical condition continues to slowly deteriorate, there is a significant component of medical noncompliance and refusal to participate in life sustaining medical treatment. It appears the patient has end-stage terminal conditions without meaningful chance of recovery. The patient unfortunately is subject to recurrent infections, has become chronically debilitated and deconditioned, and even advanced vascular access should be reviewed with a risk benefit analysis. Given a significant period of medical noncompliance and or refusal of recommended treatments and significant deconditioning, I suspect the patient may have crossed a threshold of continued decline for which there is no significant probability of recovery to a reasonable degree of medical certainty. Patient is currently DNR in event of cardiac arrest, family desires intubation mechanical ventilation in event of respiratory insufficiency. Given that patient has refused bronchoscopy in the past and has persisted mucous plugging I feel that if there was respiratory insufficiency necessitating intubation this would be transition and to permanent vent dependence especially given her significant and profound debilitation. If this were to occur I and family still desires life sustaining treatment I would strongly advocate for tracheostomy even with the understanding of poor wound healing. I have personally spent 50 minutes of critical care time in the direct management of this patient. This is a life/limb threatening event. This includes time spent evaluating patient, direct bedside care, chart review, placing orders, interpretation of diagnostic studies, discussion with consultants, patient, and/or family members regarding treatment decisions, as well as other required patient management activities. This time is exclusive of all separately billable procedures, and teaching time and separate from and in addition to any other critical care service time. Had extensive discussion with patient's daughter, , and granddaughter at bedside all in agreement intubation and mechanical ventilation would not be in the patient's best interest nor aligning with her long-term health wishes. Accordingly we would not intubate the patient. She has reached essentially maximum therapy from a pulmonary standpoint with BiPAP. She is not willing to undergo any invasive bronchoscopic treatment or evaluation. Admission and Anticipated Discharge Date Admission Date: November 09, 2023 Subjective Off vasoactive medication x 24 hours Review of Systems Review of Systems: Unobtainable due to cognitive status Physical Exam Physical Exam: General: Somnolent. nontoxic. Skin: Warm, dry, Head: Atraumatic Ears, nose, mouth and throat: airway obscured by noninvasive CPAP mask Cardiovascular: Tachycardia on bedside monitor irregularly irregular Respiratory: no respiratory distress, appears to have normal effort with BiPAP Gastrointestinal: Non distended Musculoskeletal: No deformity, generalized edema Results & Data Results & Data Vital Signs (Past 12 Hours) Vital Signs Temp Pulse Pulse Resp BP BP Pulse Ox 11/12/23 08:12 36.3 C L 96 H 24 112/89 98 11/12/23 08:12 11/12/23 08:00 112/89 11/12/23 08:00 96 H 19 99 11/12/23 08:00 99 H 11/12/23 08:00 11/12/23 07:55 123 H 21 98 11/12/23 07:00 107/68 11/12/23 07:00 75 16 98 11/12/23 05:00 99/65 L 11/12/23 05:00 70 17 97 11/12/23 04:00 81 19 97 11/12/23 04:00 97/69 L 11/12/23 03:38 71 17 97 11/12/23 03:00 74 18 97 11/12/23 03:00 96/59 L 11/12/23 02:00 90/65 L 11/12/23 02:00 80 18 97 11/12/23 01:00 98/59 L 11/12/23 01:00 122 H 17 96 11/12/23 00:00 91/59 L 11/12/23 00:00 99 H 16 96 11/12/23 00:00 121 H 11/11/23 23:40 121 H 21 97 11/11/23 23:00 106 H 23 97 11/11/23 23:00 99/78 L O2 Del Method O2 Del Method FiO2 11/12/23 08:12 Room Air 11/12/23 08:12 BiPAP 11/12/23 08:00 11/12/23 08:00 11/12/23 08:00 11/12/23 08:00 BiPAP 30 11/12/23 07:55 30 11/12/23 07:00 11/12/23 07:00 11/12/23 05:00 11/12/23 05:00 11/12/23 04:00 11/12/23 04:00 11/12/23 03:38 30 11/12/23 03:00 11/12/23 03:00 11/12/23 02:00 11/12/23 02:00 11/12/23 01:00 11/12/23 01:00 11/12/23 00:00 11/12/23 00:00 11/12/23 00:00 11/11/23 23:40 30 11/11/23 23:00 11/11/23 23:00 Coding Level of Care Code 42867 CRITICAL CARE 1ST 30-74M Diagnoses E. coli bacteremia R78.81; B96.20 Sepsis A41.9; R65.20 Sepsis acute organ dysfunction status: with acute organ dysfunction Sepsis type: sepsis due to unspecified organism Severe sepsis acute organ dysfunction type: unspecified Severe sepsis shock status: unspecified Stage II pressure ulcer L89.92 Hyponatremia E87.1 (2) Sepsis Sepsis acute organ dysfunction status: with acute organ dysfunction Sepsis type: sepsis due to unspecified organism Severe sepsis acute organ dysfunction type: unspecified Severe sepsis shock status: unspecified Qualified Code(s): A41.9 - Sepsis, unspecified organism; R65.20 - Severe sepsis without septic shock
[2023-11-12 12:46] LABS: Base Excess VBG -3.7 mEq/L; HCO3 VBG 23 mmol/L; Oxygen Saturation VBG < 60.0 %; PCO2 VBG 45 mmHg (38-50); PO2 VBG 28 mmHg; pH VBG 7.31 (7.36-7.41)
[2023-11-12] MEDS: ALTEPLASE, RECOMBINANT 1 MG/ML 2ML VIAL INSTIL ONE (13:55)
--- NOTE | 2023-11-12 14:14 | Hospitalist Progress Note ---
Date of Service November 12, 2023 Assessment & Plan (1) Comfort measures only status: Plan: after extensive discussions by ICU attending Dr Dang, palliative care Dr Peters, and myself the patient is now DNR/DNI and transitioning to full comfort care she will transfer from ICU to med/surg all medicines except rocephin will be d/c (family requests we continue rocephin) comfort meds - dilaudid, ativan, etc - ordered by Dr Peters d/c labs, vitals, etc stop BIPAP and transition to NC O2 as tolerated support given to at bedside today (2) Palliative care patient: Plan: as above (3) Septic shock due to Escherichia coli: Plan: source - urinary tract (UTI) CT abd/pelvis without obstructing kidney stone or other urinary tract abnormalities previously on cefepime then on rocephin 2gm IV daily was only on pressors briefly shortly after admission urine cx/blood cx with e.coli sens to rocephin stop hydrocortisone cont IV rocephin at family's request despite transition to ROLL TRUCKER (4) E. coli bacteremia: Plan: as above source - urinary tract doubt sacral decub as source but can't exclude it 100% has a port that is nonfunctioning but if that was the source I would anticipate more blood cultures being positive (and ecoli seldomly causes port infection anyway) (5) Sepsis: Plan: as above (6) Acute UTI (urinary tract infection): Plan: 2nd e.coli (7) Hyponatremia: Plan: urine osm quite low urine Na <10 suggesting solute deficiency; further, she is not on chronic diuretics although she had some edema peripherally she otherwise did not examine in decompensated CHF she appeared intravascularly volume contracted regardless - transitioning to ROLL TRUCKER - d/c urea tabs, d/c lab draws, etc (8) Diabetes mellitus type 2, uncontrolled: Plan: hba1c 5.4% was on metformin, januvia, and lantus/novolog at time of admission stop all Rx stop all BSG checks (9) Chronic respiratory failure with hypoxia and hypercapnia: Plan: was on 4 L NC O2 at baseline at home (10) Hx of Clostridium difficile infection: Plan: Patient recently completed course of Flagyl x 14 days by report at home prior to admission (11) Chronic right-sided congestive heart failure: Plan: although she has peripheral edema in her arms/legs, she otherwise was not Anasarca (12) Chronic heart failure with preserved ejection fraction (HFpEF): (13) Hyperkalemia: Plan: resolved 2nd to shock, decreased renal perfusion, ?relative adrenal insufficiency (14) Elevated troponin: Plan: peak HS troponin high 40s no evidence of ACS likely was myocardial demand ischemia in setting of #1 (15) Chronic obstructive pulmonary disease: Plan: with resulting chronic hypoxic respiratory failure (16) Acute metabolic encephalopathy: Plan: multifactorial - MUCH WORSE TODAY CT head w/o acute findings with new-onset a flutter can't rule out subacute stroke no further w/u --> transitioning to comfort care measures today (17) Peripheral neuropathy: Plan: stop gabapentin (18) Mood disorder: Plan: stop usual meds (19) Pressure injury of deep tissue of sacral region: (20) Atrial flutter: Plan: a.fib, 2:1 flutter, variable block flutter no Rx --> transitioning to comfort care measures only Plan care d/w Dr Dang and Dr Peters Admission and Anticipated Discharge Date Admission Date: November 09, 2023 Subjective today has been very lethargic nearly obtunded during my visit she followed simple commands - squeezed my hands, moved her legs - but unable to speak eyes would roll back in head and she would fall asleep has been on BIPAP all last pm and today despite VBG showing stable pCO2 she remains altered at bedside during the visit Dr Peters has met with family and has spoken extensively with them today Dr Dang has met and spoken with family extensively pt now DNR/DNI and will transition to comfort care measures only CT head earlier today (done before she was made DNR/DNI) was neg for acute f indings Review of Systems Review of Systems: Unobtainable due to reduced consciousness Physical Exam Physical Exam: gen - obese, lethargic, no increased work of breathing neck - no obvious JVD heart - tachy, irregular, s1 s2, no obvious murmur lungs - CTA anteriorly, bases decreased, no adventitious sounds abd - soft NT ND BS+; no obvious HSM; hernia present - reducible ext - 1+ edema b/l arms and legs; pulses feet 1-2+ b/l psych - lethargic, unable to assess orientation Results & Data Results & Data Vital Signs (Past 12 Hours) Vital Signs Temp Pulse Pulse Resp BP BP Pulse Ox 11/12/23 12:00 124 H 33 H 95 11/12/23 12:00 147/105 H 11/12/23 11:45 108 H 18 97 11/12/23 11:25 36.2 C L 80 24 125/85 92 11/12/23 11:00 125/85 11/12/23 11:00 125 H 27 H 98 11/12/23 10:30 78 19 98 11/12/23 10:00 105/77 11/12/23 10:00 88 19 98 11/12/23 09:30 80 17 99 11/12/23 09:00 102/74 11/12/23 09:00 87 18 99 11/12/23 08:30 87 19 99 11/12/23 08:12 36.3 C L 96 H 24 112/89 98 11/12/23 08:12 11/12/23 08:00 112/89 11/12/23 08:00 96 H 19 99 11/12/23 08:00 99 H 11/12/23 08:00 11/12/23 07:55 123 H 21 98 11/12/23 07:00 107/68 11/12/23 07:00 75 16 98 11/12/23 05:00 99/65 L 11/12/23 05:00 70 17 97 11/12/23 04:00 81 19 97 11/12/23 04:00 97/69 L 11/12/23 03:38 71 17 97 11/12/23 03:00 74 18 97 11/12/23 03:00 96/59 L O2 Del Method O2 Del Method FiO2 11/12/23 12:00 11/12/23 12:00 11/12/23 11:45 30 11/12/23 11:25 BiPAP 35 11/12/23 11:00 11/12/23 11:00 11/12/23 10:30 11/12/23 10:00 11/12/23 10:00 11/12/23 09:30 11/12/23 09:00 11/12/23 09:00 11/12/23 08:30 11/12/23 08:12 Room Air 11/12/23 08:12 BiPAP 11/12/23 08:00 11/12/23 08:00 11/12/23 08:00 11/12/23 08:00 BiPAP 30 11/12/23 07:55 30 11/12/23 07:00 11/12/23 07:00 11/12/23 05:00 11/12/23 05:00 11/12/23 04:00 11/12/23 04:00 11/12/23 03:38 30 11/12/23 03:00 11/12/23 03:00 Laboratory Results Laboratory Results - last 24 hr 11/09/23 11/11/23 11/11/23 19:50 16:24 16:59 POC Hgb 14.3 POC Hct 42 POC pH 7.39 POC pCO2 31 L POC pO2 85 POC HCO3 19 POC Total CO2 20 L POC Base Excess -6.0 POC ABG O2 Sat 96.0 H VBG pH VBG pCO2 VBG pO2 VBG HCO3 VBG O2 Saturation VBG Base Excess POC Sodium 122 L Sodium 125 L POC Potassium 4.9 Potassium 4.8 Chloride 92 L Carbon Dioxide 23 Anion Gap 10 BUN 35 H Creatinine 0.62 Est Cr Clr Drug Dosing 95.6 Est GFR ( Amer) 104.4 Est GFR (Non-Af Amer) 90.1 BUN/Creatinine Ratio 56.5 H Glucose 123 H POC Glucose 116 H Calcium 8.2 L Phosphorus 3.0 Magnesium 1.7 11/11/23 11/12/23 11/12/23 21:12 03:48 07:28 POC Hgb POC Hct POC pH POC pCO2 POC pO2 POC HCO3 POC Total CO2 POC Base Excess POC ABG O2 Sat VBG pH 7.38 VBG pCO2 43 VBG pO2 58 VBG HCO3 25 VBG O2 Saturation 85.8 VBG Base Excess 0 POC Sodium Sodium 128 L POC Potassium Potassium 4.5 Chloride 95 L Carbon Dioxide 23 Anion Gap 10 BUN 33 H Creatinine 0.59 L Est Cr Clr Drug Dosing 100.5 Est GFR ( Amer) 106.1 Est GFR (Non-Af Amer) 91.6 BUN/Creatinine Ratio 55.9 H Glucose 140 H POC Glucose 141 H 132 H Calcium 8.3 L Phosphorus 2.7 Magnesium 2.6 H 11/12/23 11/12/23 11:57 12:34 POC Hgb POC Hct POC pH POC pCO2 POC pO2 POC HCO3 POC Total CO2 POC Base Excess POC ABG O2 Sat VBG pH 7.31 L VBG pCO2 45 VBG pO2 28 VBG HCO3 23 VBG O2 Saturation < 60.0 VBG Base Excess -3.7 POC Sodium Sodium POC Potassium Potassium Chloride Carbon Dioxide Anion Gap BUN Creatinine Est Cr Clr Drug Dosing Est GFR ( Amer) Est GFR (Non-Af Amer) BUN/Creatinine Ratio Glucose POC Glucose 132 H Calcium Phosphorus Magnesium PG Care Time/CCT Total # of Minutes Spent Total Time Spent with Patient: Total time spent is greater than 50% in coordination of care (as documented) at patient's floor/unit and/or counseling patient: Coding Level of Care Code 02044 SUB INP/OBS CARE 2/35MIN Diagnoses Comfort measures only status Z51.5 Palliative care patient Z51.5 Septic shock due to Escherichia coli A41.51; R65.21 E. coli bacteremia R78.81; B96.20 Sepsis A41.9; R65.20 Sepsis acute organ dysfunction status: with acute organ dysfunction Sepsis type: sepsis due to unspecified organism Severe sepsis acute organ dysfunction type: unspecified Severe sepsis shock status: unspecified Acute UTI (urinary tract infection) N39.0 Hyponatremia E87.1 Diabetes mellitus type 2, uncontrolled E11.65 Chronic respiratory failure with hypoxia and hypercapnia J96.11; J96.12 Hx of Clostridium difficile infection Z86.19 Chronic right-sided congestive heart failure I50.812 Chronic heart failure with preserved ejection fraction (HFpEF) I50.32 Hyperkalemia E87.5 Elevated troponin R79.89 Chronic obstructive pulmonary disease, unspecified COPD type J44.9 COPD type: unspecified COPD Acute metabolic encephalopathy G93.41 Other polyneuropathy G62.89 Peripheral neuropathy type: polyneuropathy, other Mood disorder F39 Pressure injury of deep tissue of sacral region L89.156 Atrial flutter I48.92 (5) Sepsis Sepsis acute organ dysfunction status: with acute organ dysfunction Sepsis type: sepsis due to unspecified organism Severe sepsis acute organ dysfunction type: unspecified Severe sepsis shock status: unspecified Qualified Code(s): A41.9 - Sepsis, unspecified organism; R65.20 - Severe sepsis without septic shock (15) Chronic obstructive pulmonary disease COPD type: unspecified COPD Qualified Code(s): J44.9 - Chronic obstructive pulmonary disease, unspecified (17) Peripheral neuropathy Peripheral neuropathy type: polyneuropathy, other Qualified Code(s): G62.89 - Other specified polyneuropathies
--- NOTE | 2023-11-12 14:41 | Palliative Care Consultation ---
Date of Consultation November 12, 2023 Assessment & Plan (1) Dyspnea and respiratory abnormalities: (2) Weakness generalized: (3) Advanced care planning/counseling discussion: Pt is lethargic and unable to participate in ACP discussion Met with face to face for 30min He tells me he knows "things don't look too good, they are dire I know. They told me last night. All I can ask is you do what you can do, just try." He states pt has not been getting out of bed and has grown weaker She was scheduled for a port dye study 11/15, asking if this can be done sooner. Attempts to access port have been successful and it does flush but does not allow withdrawal per . (4) Palliative care by specialist: (5) Acute on chronic respiratory failure with hypoxia and hypercapnia: Plan aware of guarded prognosis With active infection and tenuous resp status, likely will not be able to pursue port study I updated primary team. seeking f/u discussion tomorrow. Thank you for allowing us to participate in the ongoing care of this patient. Please don't hesitate to call or page with any additional concerns. Dr. Gabriela Peters DNP Director, Palliative Care History of Present Illness Reason for Consultation: septicemia, UTI, FTT, recent c diff, dysphagia Attending Physician: Silvestre Khan MD History of Present Illness 73yo female well known to me from Aug 2023 admission who is now admitted with diarrhea and weakness after reent SNF admission. PMH includes COPD, CARLA, [facility] refuses resp therapies/+contributory neglect, morbidly obese with acute on chronic hypercapnic, hypoxemic resp failure with recurrent mucus plugging and airway collapse. Historically, pt refuses to use BiPAP/NIV as ordered/advised and also refuses airway clearance therapies. She has very poor insight and very limited understanding of her complex medical issues. She is seen in ICU, is in hallway She is not awake or alert She is on BiPAP and did not respond to verbal and did grimace with sternal rub Allergies Allergy/AdvReac Type Severity Reaction Status Date / Time latex Allergy Severe 2ND DEGREE Verified 08/23/23 01:52 BURN FROM BANDAGE adhesive Allergy Intermediate RASH Verified 08/23/23 01:52 Home Medications Medication Instructions Recorded Confirmed Type aspirin 81 mg tablet,delayed 81 mg PO HS 10/30/18 11/09/23 History release (Malcom Low Dose Aspirin) atorvastatin 80 mg tablet (Lipitor) 80 mg PO HS 10/30/18 11/09/23 History gabapentin 300 mg capsule 300 mg PO TID 10/30/18 11/09/23 History quetiapine 100 mg tablet 100 mg PO HS 12/13/21 11/09/23 History magnesium oxide 400 mg (241.3 mg 400 mg PO BID #20 tabs 08/20/23 11/09/23 Rx magnesium) tablet pantoprazole 40 mg tablet,delayed 40 mg PO BID #30 tabs 08/20/23 11/09/23 Rx release polyethylene glycol 3350 17 gram 17 g PO DAILY #14 ea 08/20/23 11/09/23 Rx oral powder packet (Miralax) sennosides 8.6 mg-docusate sodium 1 tab PO BID #60 tabs 08/20/23 11/09/23 Rx 50 mg tablet (Senokot-S) acetaminophen 325 mg tablet 650 mg PO Q4H PRN PAIN/FEVER=>100 08/23/23 11/09/23 History (Tylenol) docusate sodium 100 mg capsule 100 mg PO DAILY PRN Constipation 08/23/23 11/09/23 History (Colace) ipratropium 0.5 mg-albuterol 3 mg 3 ml inhalation Q6H PRN Dyspnea 08/23/23 11/09/23 History (2.5 mg base)/3 mL nebulization soln insulin aspart U-100 100 unit/mL 0.1 unit (0.001 mL) SC ACHS #10 mL 09/05/23 11/09/23 Rx subcutaneous solution (Novolog U-100 Insulin aspart) insulin glargine 100 unit/mL 10 unit (0.1 mL) subcut BID #30 mL 09/05/23 11/09/23 Rx subcutaneous solution (Lantus U-100 Insulin) insulin glargine-yfgn 100 unit/mL 0 unit subcut DAILY 11/09/23 11/09/23 History (3 mL) subcutaneous pen (Semglee (insulin glargine-yfgn) Pen) metformin 500 mg tablet 500 mg PO BID 11/09/23 11/09/23 History mirtazapine 30 mg tablet 30 mg PO HS 11/09/23 11/09/23 History sitagliptin phosphate 100 mg 100 mg PO DAILY 11/09/23 11/09/23 History tablet (Januvia) Patient History Medical History Impaired insight Dyspnea and respiratory abnormalities Advanced care planning/counseling discussion Palliative care by specialist Weakness generalized Cancer related pain Macrocytic anemia Shortness of breath Palliative care encounter Hyponatremia Complicated UTI (urinary tract infection) H/O defect LEFT ARM Diabetes mellitus, type 2 NIDDM Temporomandibular joint disorder NO PROBLEMS RECENTLY. Glaucoma WELL CONTROLLED Anxiety Depression Peripheral neuropathy BILATERAL FEET Hyperlipidemia Hypertension Chronic obstructive pulmonary disease Surgical History Port-A-Cath in place (08/17/23) Aport Insertion - Avery Kirkpatrick, DO S/P JALIL-BSO History of total shoulder replacement RIGHT History of incision and drainage UMBILICAL ABSCESS Hx of umbilical hernia repair X4 -- WEARS SUPPORT BAND DAILY History of colonoscopy History of cholecystectomy History of appendectomy S/P tonsillectomy and adenoidectomy Family History Mother Diabetes mellitus, type 2 Aunt Diabetes mellitus, type 2 Social History Smoking Status: Former smoker Tobacco Type: Cigarettes Cigarettes Per Day: 20; Smoking End Date: August 2023; Second Hand Exposure: No; Do You Dip or Chew Tobacco: No; Hx Alcohol Use: No Hx Substance Use: No Preferred Language: Wolof Communication Ability: Impaired Station Baggage Agent Required: No Beliefs That Will Affect Care: None marital status: Current Living Situation: Spouse Current Living Situation Comment: Lives at home with current occupational status: retired Other Information That Helps Us Care for You: No Feels Safe at Home: Yes Safety Concerns: Feels Safe At This Time Assistive Devices: Hospital Bed and Mechanical Lift Review of Systems Review of Systems: Unobtainable due to reduced consciousness Physical Exam Constitutional: + ill appearing, + morbidly obese and + lethargic BiPAP+ bitemp wasting + Eyes: PERRL (sluggish) ENMT: +BiPAP, MM dry dentition poor Neck: Pickwickian neck Respiratory: inc effort with use of accessory muscles, on BiPAP, does not respond to verbal diminished breath sounds d/t habitus Cardiovascular: distant S1S2 Gastrointestinal (Abdomen): +pannus BS + Musculoskeletal: gen weakness Skin: pale, cool Neurologic: grimaces with sternal rub Does not awaken to voice lethargic Results & Data Vital Signs (Past 12 Hours) Vital Signs Temp Pulse Pulse Resp BP BP Pulse Ox 11/12/23 12:00 124 H 33 H 95 11/12/23 12:00 147/105 H 11/12/23 11:45 108 H 18 97 11/12/23 11:25 36.2 C L 80 24 125/85 92 11/12/23 11:00 125/85 11/12/23 11:00 125 H 27 H 98 11/12/23 10:30 78 19 98 11/12/23 10:00 105/77 11/12/23 10:00 88 19 98 11/12/23 09:30 80 17 99 11/12/23 09:00 102/74 11/12/23 09:00 87 18 99 11/12/23 08:30 87 19 99 11/12/23 08:12 36.3 C L 96 H 24 112/89 98 11/12/23 08:12 11/12/23 08:00 112/89 11/12/23 08:00 96 H 19 99 11/12/23 08:00 99 H 11/12/23 08:00 11/12/23 07:55 123 H 21 98 11/12/23 07:00 107/68 11/12/23 07:00 75 16 98 11/12/23 05:00 99/65 L 11/12/23 05:00 70 17 97 11/12/23 04:00 81 19 97 11/12/23 04:00 97/69 L 11/12/23 03:38 71 17 97 11/12/23 03:00 74 18 97 11/12/23 03:00 96/59 L O2 Del Method O2 Del Method FiO2 11/12/23 12:00 11/12/23 12:00 11/12/23 11:45 30 11/12/23 11:25 BiPAP 35 11/12/23 11:00 11/12/23 11:00 11/12/23 10:30 11/12/23 10:00 11/12/23 10:00 11/12/23 09:30 11/12/23 09:00 11/12/23 09:00 11/12/23 08:30 11/12/23 08:12 Room Air 11/12/23 08:12 BiPAP 11/12/23 08:00 11/12/23 08:00 11/12/23 08:00 11/12/23 08:00 BiPAP 30 11/12/23 07:55 30 11/12/23 07:00 11/12/23 07:00 11/12/23 05:00 11/12/23 05:00 11/12/23 04:00 11/12/23 04:00 11/12/23 03:38 30 11/12/23 03:00 11/12/23 03:00 Laboratory Results 11/12/23 11/12/23 11/12/23 Range/Units 12:34 11:57 07:28 WBC (4.8-10.8) K/ul RBC (4.20-5.40) M/uL Hgb (12.0-16.0) g/dl POC Hgb (12.0-16.0) g/dl Hct (37.0-47.0) % POC Hct (37-47) % MCV (80.0-100.0) fL MCH (25.0-34.0) pg MCHC (32.0-36.0) g/dL RDW Std Deviation (36.4-46.3) fL RDW Coeff of Vikas (11.5-14.5) % Plt Count (130-400) K/uL MPV (9.4-12.4) fL Immature Gran % (Auto) % Neut % (Auto) % Lymph % (Auto) % Wood % (Auto) % Eos % (Auto) % Baso % (Auto) % Neut # (Auto) (1.40-6.50) K/uL Lymph # (Auto) (1.20-3.40) K/uL Wood # (Auto) (0.11-0.59) K/uL Eos # (Auto) (0.00-0.50) K/uL Baso # (Auto) (0.00-0.20) K/uL Immature Gran # (Auto) (0.01-0.20) K/uL Anisocytosis Echinocytes POC pH (7.35-7.45) POC pCO2 (35-46) mmHg POC pO2 (80-95) mmHg POC HCO3 (19-24) rhett/L POC Total CO2 (24-31) mmol/L POC Base Excess (-9-1.8) rhett/L POC ABG O2 Sat (90-95) % VBG pH 7.31 L (7.36-7.41) VBG pCO2 45 (38-50) mmHg VBG pO2 28 mmHg VBG HCO3 23 mmol/L VBG O2 Saturation < 60.0 % VBG Base Excess -3.7 mEq/L POC Sodium (135-144) mmol/L Sodium (136-145) mmol/L POC Potassium (3.3-5.0) mmol/L Potassium (3.5-5.1) mmol/L Chloride (98-107) mmol/L Carbon Dioxide (21-32) mmol/L Anion Gap (3-11) BUN (6-23) mg/dl Creatinine (0.6-1.2) mg/dl Est Cr Clr Drug Dosing ml/min Est GFR ( Amer) ml/min Est GFR (Non-Af Amer) ml/min BUN/Creatinine Ratio (10-20) Glucose (70-99(Fasting)) mg/dl POC Glucose 132 H 132 H (70-99) mg/dl Estimat Average Glucose mg/dl Hemoglobin A1c (4.5-5.6) % Osmolality (280-300) mOsm/kg Lactate (0.4-2.0) mmol/L Calcium (8.6-10.3) mg/dl Phosphorus (2.5-4.9) mg/dl Magnesium (1.7-2.4) mg/dl Total Bilirubin (0.2-1.0) mg/dl Direct Bilirubin (0-0.2) mg/dl AST (13-39) U/L ALT (7-52) U/L Alkaline Phosphatase (34-104) U/L Ammonia Troponin I High Sens (0-14) pg/ml Total Protein (6.0-8.3) gm/dl Albumin (3.4-5.0) gm/dl Procalcitonin (0-0.5) ng/ml Random Cortisol mcg/dl Urine Color Urine Appearance (Clear) Urine pH (4.5-7.5) Ur Specific [place] (1.000-1.030) Urine Protein (Negative) Urine Glucose (UA) (Negative) Urine Ketones (Negative) Urine Blood (Negative) Urine Nitrite (Negative) Urine Bilirubin (Negative) Urine Urobilinogen (Negative) Ur Leukocyte Esterase (Negative) Urine WBC (Auto) (0-5) /hpf Urine RBC (Auto) (0-2) /hpf U Hyaline Cast (Auto) (0-2) /lpf U Epithel Cells (Auto) (0-2) /hpf Urine Bacteria (Auto) (None Seen) Urine Osmolality (500-800) mOsm/kg Urine Sodium mmol/L Urine Potassium mmol/L Urine Chloride mmol/L Nasal Screen MRSA (PCR) (Negative) Enterobacterales (PCR) (NotDetected) E. coli (PCR) (NotDetected) mcr-1 Colistin Res Gene PCR (NotDetected) blaIMP Car res Gene PCR (NotDetected) KPC-Carbap Res Gene PCR (NotDetected) blaNDM Car Res Gene PCR (NotDetected) OXA-48 Carbapenem Resis Gene (PCR) (NotDetected) blaVIM Car Res Gene PCR (NotDetected) CTX-M Gene Resistance (PCR) (NotDetected) Bld Cult ID Panel PCR (NotDetected) 11/12/23 11/11/23 11/11/23 Range/Units 03:48 21:12 16:59 WBC (4.8-10.8) K/ul RBC (4.20-5.40) M/uL Hgb (12.0-16.0) g/dl POC Hgb (12.0-16.0) g/dl Hct (37.0-47.0) % POC Hct (37-47) % MCV (80.0-100.0) fL MCH (25.0-34.0) pg MCHC (32.0-36.0) g/dL RDW Std Deviation (36.4-46.3) fL RDW Coeff of Vikas (11.5-14.5) % Plt Count (130-400) K/uL MPV (9.4-12.4) fL Immature Gran % (Auto) % Neut % (Auto) % Lymph % (Auto) % Wood % (Auto) % Eos % (Auto) % Baso % (Auto) % Neut # (Auto) (1.40-6.50) K/uL Lymph # (Auto) (1.20-3.40) K/uL Wood # (Auto) (0.11-0.59) K/uL Eos # (Auto) (0.00-0.50) K/uL Baso # (Auto) (0.00-0.20) K/uL Immature Gran # (Auto) (0.01-0.20) K/uL Anisocytosis Echinocytes POC pH (7.35-7.45) POC pCO2 (35-46) mmHg POC pO2 (80-95) mmHg POC HCO3 (19-24) rhett/L POC Total CO2 (24-31) mmol/L POC Base Excess (-9-1.8) rhett/L POC ABG O2 Sat (90-95) % VBG pH 7.38 (7.36-7.41) VBG pCO2 43 (38-50) mmHg VBG pO2 58 mmHg VBG HCO3 25 mmol/L VBG O2 Saturation 85.8 % VBG Base Excess 0 mEq/L POC Sodium (135-144) mmol/L Sodium 128 L 125 L (136-145) mmol/L POC Potassium (3.3-5.0) mmol/L Potassium 4.5 4.8 (3.5-5.1) mmol/L Chloride 95 L 92 L (98-107) mmol/L Carbon Dioxide 23 23 (21-32) mmol/L Anion Gap 10 10 (3-11) BUN 33 H 35 H (6-23) mg/dl Creatinine 0.59 L 0.62 (0.6-1.2) mg/dl Est Cr Clr Drug Dosing 100.5 95.6 ml/min Est GFR ( Amer) 106.1 104.4 ml/min Est GFR (Non-Af Amer) 91.6 90.1 ml/min BUN/Creatinine Ratio 55.9 H 56.5 H (10-20) Glucose 140 H 123 H (70-99(Fasting)) mg/dl POC Glucose 141 H (70-99) mg/dl Estimat Average Glucose mg/dl Hemoglobin A1c (4.5-5.6) % Osmolality (280-300) mOsm/kg Lactate (0.4-2.0) mmol/L Calcium 8.3 L 8.2 L (8.6-10.3) mg/dl Phosphorus 2.7 3.0 (2.5-4.9) mg/dl Magnesium 2.6 H 1.7 (1.7-2.4) mg/dl Total Bilirubin (0.2-1.0) mg/dl Direct Bilirubin (0-0.2) mg/dl AST (13-39) U/L ALT (7-52) U/L Alkaline Phosphatase (34-104) U/L Ammonia Troponin I High Sens (0-14) pg/ml Total Protein (6.0-8.3) gm/dl Albumin (3.4-5.0) gm/dl Procalcitonin (0-0.5) ng/ml Random Cortisol mcg/dl Urine Color Urine Appearance (Clear) Urine pH (4.5-7.5) Ur Specific [place] (1.000-1.030) Urine Protein (Negative) Urine Glucose (UA) (Negative) Urine Ketones (Negative) Urine Blood (Negative) Urine Nitrite (Negative) Urine Bilirubin (Negative) Urine Urobilinogen (Negative) Ur Leukocyte Esterase (Negative) Urine WBC (Auto) (0-5) /hpf Urine RBC (Auto) (0-2) /hpf U Hyaline Cast (Auto) (0-2) /lpf U Epithel Cells (Auto) (0-2) /hpf Urine Bacteria (Auto) (None Seen) Urine Osmolality (500-800) mOsm/kg Urine Sodium mmol/L Urine Potassium mmol/L Urine Chloride mmol/L Nasal Screen MRSA (PCR) (Negative) Enterobacterales (PCR) (NotDetected) E. coli (PCR) (NotDetected) mcr-1 Colistin Res Gene PCR (NotDetected) blaIMP Car res Gene PCR (NotDetected) KPC-Carbap Res Gene PCR (NotDetected) blaNDM Car Res Gene PCR (NotDetected) OXA-48 Carbapenem Resis Gene (PCR) (NotDetected) blaVIM Car Res Gene PCR (NotDetected) CTX-M Gene Resistance (PCR) (NotDetected) Bld Cult ID Panel PCR (NotDetected) 05/06/2411/11/23 11/11/23 Range/Units 16:24 11:56 07:37 WBC (4.8-10.8) K/ul RBC (4.20-5.40) M/uL Hgb (12.0-16.0) g/dl POC Hgb (12.0-16.0) g/dl Hct (37.0-47.0) % POC Hct (37-47) % MCV (80.0-100.0) fL MCH (25.0-34.0) pg MCHC (32.0-36.0) g/dL RDW Std Deviation (36.4-46.3) fL RDW Coeff of Vikas (11.5-14.5) % Plt Count (130-400) K/uL MPV (9.4-12.4) fL Immature Gran % (Auto) % Neut % (Auto) % Lymph % (Auto) % Wood % (Auto) % Eos % (Auto) % Baso % (Auto) % Neut # (Auto) (1.40-6.50) K/uL Lymph # (Auto) (1.20-3.40) K/uL Wood # (Auto) (0.11-0.59) K/uL Eos # (Auto) (0.00-0.50) K/uL Baso # (Auto) (0.00-0.20) K/uL Immature Gran # (Auto) (0.01-0.20) K/uL Anisocytosis Echinocytes POC pH (7.35-7.45) POC pCO2 (35-46) mmHg POC pO2 (80-95) mmHg POC HCO3 (19-24) rhett/L POC Total CO2 (24-31) mmol/L POC Base Excess (-9-1.8) rhett/L POC ABG O2 Sat (90-95) % VBG pH (7.36-7.41) VBG pCO2 (38-50) mmHg VBG pO2 mmHg VBG HCO3 mmol/L VBG O2 Saturation % VBG Base Excess mEq/L POC Sodium (135-144) mmol/L Sodium (136-145) mmol/L POC Potassium (3.3-5.0) mmol/L Potassium (3.5-5.1) mmol/L Chloride (98-107) mmol/L Carbon Dioxide (21-32) mmol/L Anion Gap (3-11) BUN (6-23) mg/dl Creatinine (0.6-1.2) mg/dl Est Cr Clr Drug Dosing ml/min Est GFR ( Amer) ml/min Est GFR (Non-Af Amer) ml/min BUN/Creatinine Ratio (10-20) Glucose (70-99(Fasting)) mg/dl POC Glucose 116 H 124 H 152 H (70-99) mg/dl Estimat Average Glucose mg/dl Hemoglobin A1c (4.5-5.6) % Osmolality (280-300) mOsm/kg Lactate (0.4-2.0) mmol/L Calcium (8.6-10.3) mg/dl Phosphorus (2.5-4.9) mg/dl Magnesium (1.7-2.4) mg/dl Total Bilirubin (0.2-1.0) mg/dl Direct Bilirubin (0-0.2) mg/dl AST (13-39) U/L ALT (7-52) U/L Alkaline Phosphatase (34-104) U/L Ammonia Troponin I High Sens (0-14) pg/ml Total Protein (6.0-8.3) gm/dl Albumin (3.4-5.0) gm/dl Procalcitonin (0-0.5) ng/ml Random Cortisol mcg/dl Urine Color Urine Appearance (Clear) Urine pH (4.5-7.5) Ur Specific [place] (1.000-1.030) Urine Protein (Negative) Urine Glucose (UA) (Negative) Urine Ketones (Negative) Urine Blood (Negative) Urine Nitrite (Negative) Urine Bilirubin (Negative) Urine Urobilinogen (Negative) Ur Leukocyte Esterase (Negative) Urine WBC (Auto) (0-5) /hpf Urine RBC (Auto) (0-2) /hpf U Hyaline Cast (Auto) (0-2) /lpf U Epithel Cells (Auto) (0-2) /hpf Urine Bacteria (Auto) (None Seen) Urine Osmolality (500-800) mOsm/kg Urine Sodium mmol/L Urine Potassium mmol/L Urine Chloride mmol/L Nasal Screen MRSA (PCR) (Negative) Enterobacterales (PCR) (NotDetected) E. coli (PCR) (NotDetected) mcr-1 Colistin Res Gene PCR (NotDetected) blaIMP Car res Gene PCR (NotDetected) KPC-Carbap Res Gene PCR (NotDetected) blaNDM Car Res Gene PCR (NotDetected) OXA-48 Carbapenem Resis Gene (PCR) (NotDetected) blaVIM Car Res Gene PCR (NotDetected) CTX-M Gene Resistance (PCR) (NotDetected) Bld Cult ID Panel PCR (NotDetected) 11/11/23 11/10/23 11/10/23 Range/Units 04:43 22:34 20:08 WBC 10.24 (4.8-10.8) K/ul RBC 4.62 (4.20-5.40) M/uL Hgb 13.6 (12.0-16.0) g/dl POC Hgb (12.0-16.0) g/dl Hct 38.4 (37.0-47.0) % POC Hct (37-47) % MCV 83.1 (80.0-100.0) fL MCH 29.4 (25.0-34.0) pg MCHC 35.4 (32.0-36.0) g/dL RDW Std Deviation 62.9 H (36.4-46.3) fL RDW Coeff of Vikas 21.0 H (11.5-14.5) % Plt Count 347 (130-400) K/uL MPV 8.4 L (9.4-12.4) fL Immature Gran % (Auto) 0.6 % Neut % (Auto) 90.3 % Lymph % (Auto) 5.6 % Wood % (Auto) 3.1 % Eos % (Auto) 0.2 % Baso % (Auto) 0.2 % Neut # (Auto) 9.25 H (1.40-6.50) K/uL Lymph # (Auto) 0.57 L (1.20-3.40) K/uL Wood # (Auto) 0.32 (0.11-0.59) K/uL Eos # (Auto) 0.02 (0.00-0.50) K/uL Baso # (Auto) 0.02 (0.00-0.20) K/uL Immature Gran # (Auto) 0.06 (0.01-0.20) K/uL Anisocytosis Present Echinocytes POC pH (7.35-7.45) POC pCO2 (35-46) mmHg POC pO2 (80-95) mmHg POC HCO3 (19-24) rhett/L POC Total CO2 (24-31) mmol/L POC Base Excess (-9-1.8) rhett/L POC ABG O2 Sat (90-95) % VBG pH (7.36-7.41) VBG pCO2 (38-50) mmHg VBG pO2 mmHg VBG HCO3 mmol/L VBG O2 Saturation % VBG Base Excess mEq/L POC Sodium (135-144) mmol/L Sodium 122 L 122 L (136-145) mmol/L POC Potassium (3.3-5.0) mmol/L Potassium 5.0 5.1 (3.5-5.1) mmol/L Chloride 92 L 91 L (98-107) mmol/L Carbon Dioxide 20 L 18 L (21-32) mmol/L Anion Gap 10 13 H (3-11) BUN 36 H 34 H (6-23) mg/dl Creatinine 0.68 0.63 (0.6-1.2) mg/dl Est Cr Clr Drug Dosing 83.9 90.6 ml/min Est GFR ( Amer) 101.3 103.9 ml/min Est GFR (Non-Af Amer) 87.4 89.6 ml/min BUN/Creatinine Ratio 52.9 H 54.0 H (10-20) Glucose 164 H 162 H (70-99(Fasting)) mg/dl POC Glucose 205 H (70-99) mg/dl Estimat Average Glucose mg/dl Hemoglobin A1c (4.5-5.6) % Osmolality (280-300) mOsm/kg Lactate (0.4-2.0) mmol/L Calcium 7.7 L 7.9 L (8.6-10.3) mg/dl Phosphorus 3.1 (2.5-4.9) mg/dl Magnesium 1.7 (1.7-2.4) mg/dl Total Bilirubin (0.2-1.0) mg/dl Direct Bilirubin (0-0.2) mg/dl AST (13-39) U/L ALT (7-52) U/L Alkaline Phosphatase (34-104) U/L Ammonia Troponin I High Sens (0-14) pg/ml Total Protein (6.0-8.3) gm/dl Albumin (3.4-5.0) gm/dl Procalcitonin (0-0.5) ng/ml Random Cortisol mcg/dl Urine Color Urine Appearance (Clear) Urine pH (4.5-7.5) Ur Specific [place] (1.000-1.030) Urine Protein (Negative) Urine Glucose (UA) (Negative) Urine Ketones (Negative) Urine Blood (Negative) Urine Nitrite (Negative) Urine Bilirubin (Negative) Urine Urobilinogen (Negative) Ur Leukocyte Esterase (Negative) Urine WBC (Auto) (0-5) /hpf Urine RBC (Auto) (0-2) /hpf U Hyaline Cast (Auto) (0-2) /lpf U Epithel Cells (Auto) (0-2) /hpf Urine Bacteria (Auto) (None Seen) Urine Osmolality (500-800) mOsm/kg Urine Sodium mmol/L Urine Potassium mmol/L Urine Chloride mmol/L Nasal Screen MRSA (PCR) (Negative) Enterobacterales (PCR) (NotDetected) E. coli (PCR) (NotDetected) mcr-1 Colistin Res Gene PCR (NotDetected) blaIMP Car res Gene PCR (NotDetected) KPC-Carbap Res Gene PCR (NotDetected) blaNDM Car Res Gene PCR (NotDetected) OXA-48 Carbapenem Resis Gene (PCR) (NotDetected) blaVIM Car Res Gene PCR (NotDetected) CTX-M Gene Resistance (PCR) (NotDetected) Bld Cult ID Panel PCR (NotDetected) 11/10/23 11/10/23 11/10/23 Range/Units 18:43 17:07 16:06 WBC (4.8-10.8) K/ul RBC (4.20-5.40) M/uL Hgb (12.0-16.0) g/dl POC Hgb (12.0-16.0) g/dl Hct (37.0-47.0) % POC Hct (37-47) % MCV (80.0-100.0) fL MCH (25.0-34.0) pg MCHC (32.0-36.0) g/dL RDW Std Deviation (36.4-46.3) fL RDW Coeff of Vikas (11.5-14.5) % Plt Count (130-400) K/uL MPV (9.4-12.4) fL Immature Gran % (Auto) % Neut % (Auto) % Lymph % (Auto) % Wood % (Auto) % Eos % (Auto) % Baso % (Auto) % Neut # (Auto) (1.40-6.50) K/uL Lymph # (Auto) (1.20-3.40) K/uL Wood # (Auto) (0.11-0.59) K/uL Eos # (Auto) (0.00-0.50) K/uL Baso # (Auto) (0.00-0.20) K/uL Immature Gran # (Auto) (0.01-0.20) K/uL Anisocytosis Echinocytes POC pH (7.35-7.45) POC pCO2 (35-46) mmHg POC pO2 (80-95) mmHg POC HCO3 (19-24) rhett/L POC Total CO2 (24-31) mmol/L POC Base Excess (-9-1.8) rhett/L POC ABG O2 Sat (90-95) % VBG pH (7.36-7.41) VBG pCO2 (38-50) mmHg VBG pO2 mmHg VBG HCO3 mmol/L VBG O2 Saturation % VBG Base Excess mEq/L POC Sodium (135-144) mmol/L Sodium 122 L (136-145) mmol/L POC Potassium (3.3-5.0) mmol/L Potassium 5.3 H (3.5-5.1) mmol/L Chloride 91 L (98-107) mmol/L Carbon Dioxide 18 L (21-32) mmol/L Anion Gap 13 H (3-11) BUN 34 H (6-23) mg/dl Creatinine 0.65 (0.6-1.2) mg/dl Est Cr Clr Drug Dosing 87.8 ml/min Est GFR ( Amer) 102.8 ml/min Est GFR (Non-Af Amer) 88.7 ml/min BUN/Creatinine Ratio 52.3 H (10-20) Glucose 137 H (70-99(Fasting)) mg/dl POC Glucose 124 H (70-99) mg/dl Estimat Average Glucose mg/dl Hemoglobin A1c (4.5-5.6) % Osmolality (280-300) mOsm/kg Lactate (0.4-2.0) mmol/L Calcium 7.9 L (8.6-10.3) mg/dl Phosphorus (2.5-4.9) mg/dl Magnesium (1.7-2.4) mg/dl Total Bilirubin (0.2-1.0) mg/dl Direct Bilirubin (0-0.2) mg/dl AST (13-39) U/L ALT (7-52) U/L Alkaline Phosphatase (34-104) U/L Ammonia 15.0 L TNP Troponin I High Sens (0-14) pg/ml Total Protein (6.0-8.3) gm/dl Albumin (3.4-5.0) gm/dl Procalcitonin (0-0.5) ng/ml Random Cortisol mcg/dl Urine Color Urine Appearance (Clear) Urine pH (4.5-7.5) Ur Specific [place] (1.000-1.030) Urine Protein (Negative) Urine Glucose (UA) (Negative) Urine Ketones (Negative) Urine Blood (Negative) Urine Nitrite (Negative) Urine Bilirubin (Negative) Urine Urobilinogen (Negative) Ur Leukocyte Esterase (Negative) Urine WBC (Auto) (0-5) /hpf Urine RBC (Auto) (0-2) /hpf U Hyaline Cast (Auto) (0-2) /lpf U Epithel Cells (Auto) (0-2) /hpf Urine Bacteria (Auto) (None Seen) Urine Osmolality (500-800) mOsm/kg Urine Sodium mmol/L Urine Potassium mmol/L Urine Chloride mmol/L Nasal Screen MRSA (PCR) (Negative) Enterobacterales (PCR) (NotDetected) E. coli (PCR) (NotDetected) mcr-1 Colistin Res Gene PCR (NotDetected) blaIMP Car res Gene PCR (NotDetected) KPC-Carbap Res Gene PCR (NotDetected) blaNDM Car Res Gene PCR (NotDetected) OXA-48 Carbapenem Resis Gene (PCR) (NotDetected) blaVIM Car Res Gene PCR (NotDetected) CTX-M Gene Resistance (PCR) (NotDetected) Bld Cult ID Panel PCR (NotDetected) 11/10/23 11/10/23 11/10/23 Range/Units 15:03 11:47 10:19 WBC (4.8-10.8) K/ul RBC (4.20-5.40) M/uL Hgb (12.0-16.0) g/dl POC Hgb (12.0-16.0) g/dl Hct (37.0-47.0) % POC Hct (37-47) % MCV (80.0-100.0) fL MCH (25.0-34.0) pg MCHC (32.0-36.0) g/dL RDW Std Deviation (36.4-46.3) fL RDW Coeff of Vikas (11.5-14.5) % Plt Count (130-400) K/uL MPV (9.4-12.4) fL Immature Gran % (Auto) % Neut % (Auto) % Lymph % (Auto) % Wood % (Auto) % Eos % (Auto) % Baso % (Auto) % Neut # (Auto) (1.40-6.50) K/uL Lymph # (Auto) (1.20-3.40) K/uL [place] # (Auto) (0.11-0.59) K/uL Eos # (Auto) (0.00-0.50) K/uL Baso # (Auto) (0.00-0.20) K/uL Immature Gran # (Auto) (0.01-0.20) K/uL Anisocytosis Echinocytes POC pH (7.35-7.45) POC pCO2 (35-46) mmHg POC pO2 (80-95) mmHg POC HCO3 (19-24) rhett/L POC Total CO2 (24-31) mmol/L POC Base Excess (-9-1.8) rhett/L POC ABG O2 Sat (90-95) % VBG pH (7.36-7.41) VBG pCO2 (38-50) mmHg VBG pO2 mmHg VBG HCO3 mmol/L VBG O2 Saturation % VBG Base Excess mEq/L POC Sodium (135-144) mmol/L Sodium 124 L 124 L (136-145) mmol/L POC Potassium (3.3-5.0) mmol/L Potassium 5.3 H 5.6 H (3.5-5.1) mmol/L Chloride 91 L 94 L (98-107) mmol/L Carbon Dioxide 19 L 18 L (21-32) mmol/L Anion Gap 14 H 12 H (3-11) BUN 34 H 34 H (6-23) mg/dl Creatinine 0.75 0.74 (0.6-1.2) mg/dl Est Cr Clr Drug Dosing 76.1 77.1 ml/min Est GFR ( Amer) 92.3 93.8 ml/min Est GFR (Non-Af Amer) 79.6 80.9 ml/min BUN/Creatinine Ratio 45.3 H 45.9 H (10-20) Glucose 127 H 120 H (70-99(Fasting)) mg/dl POC Glucose 109 H (70-99) mg/dl Estimat Average Glucose mg/dl Hemoglobin A1c (4.5-5.6) % Osmolality (280-300) mOsm/kg Lactate (0.4-2.0) mmol/L Calcium 8.1 L 7.6 L (8.6-10.3) mg/dl Phosphorus 3.8 (2.5-4.9) mg/dl Magnesium 2.0 (1.7-2.4) mg/dl Total Bilirubin (0.2-1.0) mg/dl Direct Bilirubin (0-0.2) mg/dl AST (13-39) U/L ALT (7-52) U/L Alkaline Phosphatase (34-104) U/L Ammonia Cancelled Troponin I High Sens (0-14) pg/ml Total Protein (6.0-8.3) gm/dl Albumin (3.4-5.0) gm/dl Procalcitonin (0-0.5) ng/ml Random Cortisol mcg/dl Urine Color Urine Appearance (Clear) Urine pH (4.5-7.5) Ur Specific [place] (1.000-1.030) Urine Protein (Negative) Urine Glucose (UA) (Negative) Urine Ketones (Negative) Urine Blood (Negative) Urine Nitrite (Negative) Urine Bilirubin (Negative) Urine Urobilinogen (Negative) Ur Leukocyte Esterase (Negative) Urine WBC (Auto) (0-5) /hpf Urine RBC (Auto) (0-2) /hpf U Hyaline Cast (Auto) (0-2) /lpf U Epithel Cells (Auto) (0-2) /hpf Urine Bacteria (Auto) (None Seen) Urine Osmolality (500-800) mOsm/kg Urine Sodium mmol/L Urine Potassium mmol/L Urine Chloride mmol/L Nasal Screen MRSA (PCR) (Negative) Enterobacterales (PCR) (NotDetected) E. coli (PCR) (NotDetected) mcr-1 Colistin Res Gene PCR (NotDetected) blaIMP Car res Gene PCR (NotDetected) KPC-Carbap Res Gene PCR (NotDetected) blaNDM Car Res Gene PCR (NotDetected) OXA-48 Carbapenem Resis Gene (PCR) (NotDetected) blaVIM Car Res Gene PCR (NotDetected) CTX-M Gene Resistance (PCR) (NotDetected) Bld Cult ID Panel PCR (NotDetected) 11/10/23 11/10/23 11/10/23 Range/Units 09:32 07:32 07:31 WBC (4.8-10.8) K/ul RBC (4.20-5.40) M/uL Hgb (12.0-16.0) g/dl POC Hgb (12.0-16.0) g/dl Hct (37.0-47.0) % POC Hct (37-47) % MCV (80.0-100.0) fL MCH (25.0-34.0) pg MCHC (32.0-36.0) g/dL RDW Std Deviation (36.4-46.3) fL RDW Coeff of Vikas (11.5-14.5) % Plt Count (130-400) K/uL MPV (9.4-12.4) fL Immature Gran % (Auto) % Neut % (Auto) % Lymph % (Auto) % Wood % (Auto) % Eos % (Auto) % Baso % (Auto) % Neut # (Auto) (1.40-6.50) K/uL Lymph # (Auto) (1.20-3.40) K/uL [place] # (Auto) (0.11-0.59) K/uL Eos # (Auto) (0.00-0.50) K/uL Baso # (Auto) (0.00-0.20) K/uL Immature Gran # (Auto) (0.01-0.20) K/uL Anisocytosis Echinocytes POC pH (7.35-7.45) POC pCO2 (35-46) mmHg POC pO2 (80-95) mmHg POC HCO3 (19-24) rhett/L POC Total CO2 (24-31) mmol/L POC Base Excess (-9-1.8) rhett/L POC ABG O2 Sat (90-95) % VBG pH (7.36-7.41) VBG pCO2 (38-50) mmHg VBG pO2 mmHg VBG HCO3 mmol/L VBG O2 Saturation % VBG Base Excess mEq/L POC Sodium (135-144) mmol/L Sodium 124 L Cancelled (136-145) mmol/L POC Potassium (3.3-5.0) mmol/L Potassium TNP Cancelled (3.5-5.1) mmol/L Chloride 97 L Cancelled (98-107) mmol/L Carbon Dioxide 18 L Cancelled (21-32) mmol/L Anion Gap 9 Cancelled (3-11) BUN 36 H Cancelled (6-23) mg/dl Creatinine 0.74 Cancelled (0.6-1.2) mg/dl Est Cr Clr Drug Dosing 77.1 Cancelled ml/min Est GFR ( Amer) 93.8 Cancelled ml/min Est GFR (Non-Af Amer) 80.9 Cancelled ml/min BUN/Creatinine Ratio 48.6 H Cancelled (10-20) Glucose 122 H Cancelled (70-99(Fasting)) mg/dl POC Glucose 107 H (70-99) mg/dl Estimat Average Glucose mg/dl Hemoglobin A1c (4.5-5.6) % Osmolality (280-300) mOsm/kg Lactate (0.4-2.0) mmol/L Calcium 7.0 L Cancelled (8.6-10.3) mg/dl Phosphorus (2.5-4.9) mg/dl Magnesium (1.7-2.4) mg/dl Total Bilirubin (0.2-1.0) mg/dl Direct Bilirubin (0-0.2) mg/dl AST (13-39) U/L ALT (7-52) U/L Alkaline Phosphatase (34-104) U/L Ammonia Troponin I High Sens (0-14) pg/ml Total Protein (6.0-8.3) gm/dl Albumin (3.4-5.0) gm/dl Procalcitonin (0-0.5) ng/ml Random Cortisol mcg/dl Urine Color Urine Appearance (Clear) Urine pH (4.5-7.5) Ur Specific [place] (1.000-1.030) Urine Protein (Negative) Urine Glucose (UA) (Negative) Urine Ketones (Negative) Urine Blood (Negative) Urine Nitrite (Negative) Urine Bilirubin (Negative) Urine Urobilinogen (Negative) Ur Leukocyte Esterase (Negative) Urine WBC (Auto) (0-5) /hpf Urine RBC (Auto) (0-2) /hpf U Hyaline Cast (Auto) (0-2) /lpf U Epithel Cells (Auto) (0-2) /hpf Urine Bacteria (Auto) (None Seen) Urine Osmolality (500-800) mOsm/kg Urine Sodium mmol/L Urine Potassium mmol/L Urine Chloride mmol/L Nasal Screen MRSA (PCR) (Negative) Enterobacterales (PCR) (NotDetected) E. coli (PCR) (NotDetected) mcr-1 Colistin Res Gene PCR (NotDetected) blaIMP Car res Gene PCR (NotDetected) KPC-Carbap Res Gene PCR (NotDetected) blaNDM Car Res Gene PCR (NotDetected) OXA-48 Carbapenem Resis Gene (PCR) (NotDetected) blaVIM Car Res Gene PCR (NotDetected) CTX-M Gene Resistance (PCR) (NotDetected) Bld Cult ID Panel PCR (NotDetected) 11/10/23 11/10/23 11/09/23 Range/Units 05:44 03:51 23:15 WBC 13.30 H (4.8-10.8) K/ul RBC 4.74 (4.20-5.40) M/uL Hgb 13.7 (12.0-16.0) g/dl POC Hgb (12.0-16.0) g/dl Hct 40.2 (37.0-47.0) % POC Hct (37-47) % MCV 84.8 (80.0-100.0) fL MCH 28.9 (25.0-34.0) pg MCHC 34.1 (32.0-36.0) g/dL RDW Std Deviation 59.7 H (36.4-46.3) fL RDW Coeff of Vikas 19.1 H (11.5-14.5) % Plt Count 399 (130-400) K/uL MPV 8.5 L (9.4-12.4) fL Immature Gran % (Auto) 0.5 % Neut % (Auto) 95.0 % Lymph % (Auto) 2.5 % Wood % (Auto) 1.7 % Eos % (Auto) 0.1 % Baso % (Auto) 0.2 % Neut # (Auto) 12.66 H (1.40-6.50) K/uL Lymph # (Auto) 0.33 L (1.20-3.40) K/uL Wood # (Auto) 0.22 (0.11-0.59) K/uL Eos # (Auto) 0.01 (0.00-0.50) K/uL Baso # (Auto) 0.02 (0.00-0.20) K/uL Immature Gran # (Auto) 0.06 (0.01-0.20) K/uL Anisocytosis Echinocytes 1+ POC pH (7.35-7.45) POC pCO2 (35-46) mmHg POC pO2 (80-95) mmHg POC HCO3 (19-24) rhett/L POC Total CO2 (24-31) mmol/L POC Base Excess (-9-1.8) rhett/L POC ABG O2 Sat (90-95) % VBG pH (7.36-7.41) VBG pCO2 (38-50) mmHg VBG pO2 mmHg VBG HCO3 mmol/L VBG O2 Saturation % VBG Base Excess mEq/L POC Sodium (135-144) mmol/L Sodium 122 L (136-145) mmol/L POC Potassium (3.3-5.0) mmol/L Potassium 5.1 (3.5-5.1) mmol/L Chloride 92 L (98-107) mmol/L Carbon Dioxide 20 L (21-32) mmol/L Anion Gap 10 (3-11) BUN 34 H (6-23) mg/dl Creatinine 0.87 (0.6-1.2) mg/dl Est Cr Clr Drug Dosing 65.5 ml/min Est GFR ( Amer) 77.1 ml/min Est GFR (Non-Af Amer) 66.6 ml/min BUN/Creatinine Ratio 39.1 H (10-20) Glucose 92 (70-99(Fasting)) mg/dl POC Glucose (70-99) mg/dl Estimat Average Glucose 108 mg/dl Hemoglobin A1c 5.4 (4.5-5.6) % Osmolality (280-300) mOsm/kg Lactate 2.0 (0.4-2.0) mmol/L Calcium 7.7 L (8.6-10.3) mg/dl Phosphorus 3.5 (2.5-4.9) mg/dl Magnesium 1.8 (1.7-2.4) mg/dl Total Bilirubin 0.7 (0.2-1.0) mg/dl Direct Bilirubin 0.2 (0-0.2) mg/dl AST 57 H (13-39) U/L ALT 34 (7-52) U/L Alkaline Phosphatase 213 H (34-104) U/L Ammonia Troponin I High Sens (0-14) pg/ml Total Protein 5.9 L (6.0-8.3) gm/dl Albumin 2.3 L (3.4-5.0) gm/dl Procalcitonin (0-0.5) ng/ml Random Cortisol mcg/dl Urine Color Urine Appearance (Clear) Urine pH (4.5-7.5) Ur Specific [place] (1.000-1.030) Urine Protein (Negative) Urine Glucose (UA) (Negative) Urine Ketones (Negative) Urine Blood (Negative) Urine Nitrite (Negative) Urine Bilirubin (Negative) Urine Urobilinogen (Negative) Ur Leukocyte Esterase (Negative) Urine WBC (Auto) (0-5) /hpf Urine RBC (Auto) (0-2) /hpf U Hyaline Cast (Auto) (0-2) /lpf U Epithel Cells (Auto) (0-2) /hpf Urine Bacteria (Auto) (None Seen) Urine Osmolality 172 L (500-800) mOsm/kg Urine Sodium < 10 mmol/L Urine Potassium 16.7 mmol/L Urine Chloride 25 mmol/L Nasal Screen MRSA (PCR) (Negative) Enterobacterales (PCR) (NotDetected) E. coli (PCR) (NotDetected) mcr-1 Colistin Res Gene PCR (NotDetected) blaIMP Car res Gene PCR (NotDetected) KPC-Carbap Res Gene PCR (NotDetected) blaNDM Car Res Gene PCR (NotDetected) OXA-48 Carbapenem Resis Gene (PCR) (NotDetected) blaVIM Car Res Gene PCR (NotDetected) CTX-M Gene Resistance (PCR) (NotDetected) Bld Cult ID Panel PCR (NotDetected) 11/09/23 11/09/23 11/09/23 Range/Units 22:45 21:52 19:50 WBC (4.8-10.8) K/ul RBC (4.20-5.40) M/uL Hgb (12.0-16.0) g/dl POC Hgb 14.3 (12.0-16.0) g/dl Hct (37.0-47.0) % POC Hct 42 (37-47) % MCV (80.0-100.0) fL MCH (25.0-34.0) pg MCHC (32.0-36.0) g/dL RDW Std Deviation (36.4-46.3) fL RDW Coeff of Vikas (11.5-14.5) % Plt Count (130-400) K/uL MPV (9.4-12.4) fL Immature Gran % (Auto) % Neut % (Auto) % Lymph % (Auto) % Wood % (Auto) % Eos % (Auto) % Baso % (Auto) % Neut # (Auto) (1.40-6.50) K/uL Lymph # (Auto) (1.20-3.40) K/uL [place] # (Auto) (0.11-0.59) K/uL Eos # (Auto) (0.00-0.50) K/uL Baso # (Auto) (0.00-0.20) K/uL Immature Gran # (Auto) (0.01-0.20) K/uL Anisocytosis Echinocytes POC pH 7.39 (7.35-7.45) POC pCO2 31 L (35-46) mmHg POC pO2 85 (80-95) mmHg POC HCO3 19 (19-24) rhett/L POC Total CO2 20 L (24-31) mmol/L POC Base Excess -6.0 (-9-1.8) rhett/L POC ABG O2 Sat 96.0 H (90-95) % VBG pH (7.36-7.41) VBG pCO2 (38-50) mmHg VBG pO2 mmHg VBG HCO3 mmol/L VBG O2 Saturation % VBG Base Excess mEq/L POC Sodium 122 L (135-144) mmol/L Sodium (136-145) mmol/L POC Potassium 4.9 (3.3-5.0) mmol/L Potassium (3.5-5.1) mmol/L Chloride (98-107) mmol/L Carbon Dioxide (21-32) mmol/L Anion Gap (3-11) BUN (6-23) mg/dl Creatinine (0.6-1.2) mg/dl Est Cr Clr Drug Dosing ml/min Est GFR ( Amer) ml/min Est GFR (Non-Af Amer) ml/min BUN/Creatinine Ratio (10-20) Glucose (70-99(Fasting)) mg/dl POC Glucose 106 H (70-99) mg/dl Estimat Average Glucose mg/dl Hemoglobin A1c (4.5-5.6) % Osmolality (280-300) mOsm/kg Lactate (0.4-2.0) mmol/L Calcium (8.6-10.3) mg/dl Phosphorus (2.5-4.9) mg/dl Magnesium (1.7-2.4) mg/dl Total Bilirubin (0.2-1.0) mg/dl Direct Bilirubin (0-0.2) mg/dl AST (13-39) U/L ALT (7-52) U/L Alkaline Phosphatase (34-104) U/L Ammonia Troponin I High Sens (0-14) pg/ml Total Protein (6.0-8.3) gm/dl Albumin (3.4-5.0) gm/dl Procalcitonin (0-0.5) ng/ml Random Cortisol mcg/dl Urine Color Urine Appearance (Clear) Urine pH (4.5-7.5) Ur Specific [place] (1.000-1.030) Urine Protein (Negative) Urine Glucose (UA) (Negative) Urine Ketones (Negative) Urine Blood (Negative) Urine Nitrite (Negative) Urine Bilirubin (Negative) Urine Urobilinogen (Negative) Ur Leukocyte Esterase (Negative) Urine WBC (Auto) (0-5) /hpf Urine RBC (Auto) (0-2) /hpf U Hyaline Cast (Auto) (0-2) /lpf U Epithel Cells (Auto) (0-2) /hpf Urine Bacteria (Auto) (None Seen) Urine Osmolality (500-800) mOsm/kg Urine Sodium mmol/L Urine Potassium mmol/L Urine Chloride mmol/L Nasal Screen MRSA (PCR) Negative (Negative) Enterobacterales (PCR) (NotDetected) E. coli (PCR) (NotDetected) mcr-1 Colistin Res Gene PCR (NotDetected) blaIMP Car res Gene PCR (NotDetected) KPC-Carbap Res Gene PCR (NotDetected) blaNDM Car Res Gene PCR (NotDetected) OXA-48 Carbapenem Resis Gene (PCR) (NotDetected) blaVIM Car Res Gene PCR (NotDetected) CTX-M Gene Resistance (PCR) (NotDetected) Bld Cult ID Panel PCR (NotDetected) 11/09/23 11/09/23 11/09/23 Range/Units 19:40 18:18 17:58 WBC (4.8-10.8) K/ul RBC (4.20-5.40) M/uL Hgb (12.0-16.0) g/dl POC Hgb (12.0-16.0) g/dl Hct (37.0-47.0) % POC Hct (37-47) % MCV (80.0-100.0) fL MCH (25.0-34.0) pg MCHC (32.0-36.0) g/dL RDW Std Deviation (36.4-46.3) fL RDW Coeff of Vikas (11.5-14.5) % Plt Count (130-400) K/uL MPV (9.4-12.4) fL Immature Gran % (Auto) % Neut % (Auto) % Lymph % (Auto) % Wood % (Auto) % Eos % (Auto) % Baso % (Auto) % Neut # (Auto) (1.40-6.50) K/uL Lymph # (Auto) (1.20-3.40) K/uL [place] # (Auto) (0.11-0.59) K/uL Eos # (Auto) (0.00-0.50) K/uL Baso # (Auto) (0.00-0.20) K/uL Immature Gran # (Auto) (0.01-0.20) K/uL Anisocytosis Echinocytes POC pH (7.35-7.45) POC pCO2 (35-46) mmHg POC pO2 (80-95) mmHg POC HCO3 (19-24) rhett/L POC Total CO2 (24-31) mmol/L POC Base Excess (-9-1.8) rhett/L POC ABG O2 Sat (90-95) % VBG pH (7.36-7.41) VBG pCO2 (38-50) mmHg VBG pO2 mmHg VBG HCO3 mmol/L VBG O2 Saturation % VBG Base Excess mEq/L POC Sodium (135-144) mmol/L Sodium 121 L (136-145) mmol/L POC Potassium (3.3-5.0) mmol/L Potassium 4.9 (3.5-5.1) mmol/L Chloride 92 L (98-107) mmol/L Carbon Dioxide 19 L (21-32) mmol/L Anion Gap 10 (3-11) BUN 34 H (6-23) mg/dl Creatinine 0.90 (0.6-1.2) mg/dl Est Cr Clr Drug Dosing 66.7 ml/min Est GFR ( Amer) 74.0 ml/min Est GFR (Non-Af Amer) 63.9 ml/min BUN/Creatinine Ratio 37.8 H (10-20) Glucose 117 H (70-99(Fasting)) mg/dl POC Glucose 109 H (70-99) mg/dl Estimat Average Glucose mg/dl Hemoglobin A1c (4.5-5.6) % Osmolality 271 L (280-300) mOsm/kg Lactate 2.4 H* (0.4-2.0) mmol/L Calcium 7.3 L (8.6-10.3) mg/dl Phosphorus (2.5-4.9) mg/dl Magnesium (1.7-2.4) mg/dl Total Bilirubin (0.2-1.0) mg/dl Direct Bilirubin (0-0.2) mg/dl AST (13-39) U/L ALT (7-52) U/L Alkaline Phosphatase (34-104) U/L Ammonia Troponin I High Sens (0-14) pg/ml Total Protein (6.0-8.3) gm/dl Albumin (3.4-5.0) gm/dl Procalcitonin (0-0.5) ng/ml Random Cortisol 20.83 mcg/dl Urine Color Urine Appearance (Clear) Urine pH (4.5-7.5) Ur Specific [place] (1.000-1.030) Urine Protein (Negative) Urine Glucose (UA) (Negative) Urine Ketones (Negative) Urine Blood (Negative) Urine Nitrite (Negative) Urine Bilirubin (Negative) Urine Urobilinogen (Negative) Ur Leukocyte Esterase (Negative) Urine WBC (Auto) (0-5) /hpf Urine RBC (Auto) (0-2) /hpf U Hyaline Cast (Auto) (0-2) /lpf U Epithel Cells (Auto) (0-2) /hpf Urine Bacteria (Auto) (None Seen) Urine Osmolality (500-800) mOsm/kg Urine Sodium mmol/L Urine Potassium mmol/L Urine Chloride mmol/L Nasal Screen MRSA (PCR) (Negative) Enterobacterales (PCR) (NotDetected) E. coli (PCR) (NotDetected) mcr-1 Colistin Res Gene PCR (NotDetected) blaIMP Car res Gene PCR (NotDetected) KPC-Carbap Res Gene PCR (NotDetected) blaNDM Car Res Gene PCR (NotDetected) OXA-48 Carbapenem Resis Gene (PCR) (NotDetected) blaVIM Car Res Gene PCR (NotDetected) CTX-M Gene Resistance (PCR) (NotDetected) Bld Cult ID Panel PCR (NotDetected) 11/09/23 11/09/23 11/09/23 Range/Units 17:15 17:13 15:51 WBC (4.8-10.8) K/ul RBC (4.20-5.40) M/uL Hgb (12.0-16.0) g/dl POC Hgb (12.0-16.0) g/dl Hct (37.0-47.0) % POC Hct (37-47) % MCV (80.0-100.0) fL MCH (25.0-34.0) pg MCHC (32.0-36.0) g/dL RDW Std Deviation (36.4-46.3) fL RDW Coeff of Vikas (11.5-14.5) % Plt Count (130-400) K/uL MPV (9.4-12.4) fL Immature Gran % (Auto) % Neut % (Auto) % Lymph % (Auto) % Wood % (Auto) % Eos % (Auto) % Baso % (Auto) % Neut # (Auto) (1.40-6.50) K/uL Lymph # (Auto) (1.20-3.40) K/uL [place] # (Auto) (0.11-0.59) K/uL Eos # (Auto) (0.00-0.50) K/uL Baso # (Auto) (0.00-0.20) K/uL Immature Gran # (Auto) (0.01-0.20) K/uL Anisocytosis Echinocytes POC pH (7.35-7.45) POC pCO2 (35-46) mmHg POC pO2 (80-95) mmHg POC HCO3 (19-24) rhett/L POC Total CO2 (24-31) mmol/L POC Base Excess (-9-1.8) rhett/L POC ABG O2 Sat (90-95) % VBG pH (7.36-7.41) VBG pCO2 (38-50) mmHg VBG pO2 mmHg VBG HCO3 mmol/L VBG O2 Saturation % VBG Base Excess mEq/L POC Sodium (135-144) mmol/L Sodium (136-145) mmol/L POC Potassium (3.3-5.0) mmol/L Potassium (3.5-5.1) mmol/L Chloride (98-107) mmol/L Carbon Dioxide (21-32) mmol/L Anion Gap (3-11) BUN (6-23) mg/dl Creatinine (0.6-1.2) mg/dl Est Cr Clr Drug Dosing ml/min Est GFR ( Amer) ml/min Est GFR (Non-Af Amer) ml/min BUN/Creatinine Ratio (10-20) Glucose (70-99(Fasting)) mg/dl POC Glucose 59 L* 60 L* (70-99) mg/dl Estimat Average Glucose mg/dl Hemoglobin A1c (4.5-5.6) % Osmolality (280-300) mOsm/kg Lactate (0.4-2.0) mmol/L Calcium (8.6-10.3) mg/dl Phosphorus (2.5-4.9) mg/dl Magnesium (1.7-2.4) mg/dl Total Bilirubin (0.2-1.0) mg/dl Direct Bilirubin (0-0.2) mg/dl AST (13-39) U/L ALT (7-52) U/L Alkaline Phosphatase (34-104) U/L Ammonia Troponin I High Sens 43.2 H (0-14) pg/ml Total Protein (6.0-8.3) gm/dl Albumin (3.4-5.0) gm/dl Procalcitonin (0-0.5) ng/ml Random Cortisol mcg/dl Urine Color Urine Appearance (Clear) Urine pH (4.5-7.5) Ur Specific [place] (1.000-1.030) Urine Protein (Negative) Urine Glucose (UA) (Negative) Urine Ketones (Negative) Urine Blood (Negative) Urine Nitrite (Negative) Urine Bilirubin (Negative) Urine Urobilinogen (Negative) Ur Leukocyte Esterase (Negative) Urine WBC (Auto) (0-5) /hpf Urine RBC (Auto) (0-2) /hpf U Hyaline Cast (Auto) (0-2) /lpf U Epithel Cells (Auto) (0-2) /hpf Urine Bacteria (Auto) (None Seen) Urine Osmolality (500-800) mOsm/kg Urine Sodium mmol/L Urine Potassium mmol/L Urine Chloride mmol/L Nasal Screen MRSA (PCR) (Negative) Enterobacterales (PCR) (NotDetected) E. coli (PCR) (NotDetected) mcr-1 Colistin Res Gene PCR (NotDetected) blaIMP Car res Gene PCR (NotDetected) KPC-Carbap Res Gene PCR (NotDetected) blaNDM Car Res Gene PCR (NotDetected) OXA-48 Carbapenem Resis Gene (PCR) (NotDetected) blaVIM Car Res Gene PCR (NotDetected) CTX-M Gene Resistance (PCR) (NotDetected) Bld Cult ID Panel PCR (NotDetected) 11/09/23 11/09/23 11/09/23 Range/Units 14:35 13:47 13:40 WBC 15.12 H (4.8-10.8) K/ul RBC 5.46 H (4.20-5.40) M/uL Hgb 15.9 (12.0-16.0) g/dl POC Hgb (12.0-16.0) g/dl Hct 45.6 (37.0-47.0) % POC Hct (37-47) % MCV 83.5 (80.0-100.0) fL MCH 29.1 (25.0-34.0) pg MCHC 34.9 (32.0-36.0) g/dL RDW Std Deviation 64.3 H (36.4-46.3) fL RDW Coeff of Vikas 21.5 H (11.5-14.5) % Plt Count 465 H (130-400) K/uL MPV 8.5 L (9.4-12.4) fL Immature Gran % (Auto) 0.6 % Neut % (Auto) 91.6 % Lymph % (Auto) 4.8 % Wood % (Auto) 2.4 % Eos % (Auto) 0.1 % Baso % (Auto) 0.5 % Neut # (Auto) 13.87 H (1.40-6.50) K/uL Lymph # (Auto) 0.72 L (1.20-3.40) K/uL [place] # (Auto) 0.36 (0.11-0.59) K/uL Eos # (Auto) 0.01 (0.00-0.50) K/uL Baso # (Auto) 0.07 (0.00-0.20) K/uL Immature Gran # (Auto) 0.09 (0.01-0.20) K/uL Anisocytosis Present Echinocytes POC pH (7.35-7.45) POC pCO2 (35-46) mmHg POC pO2 (80-95) mmHg POC HCO3 (19-24) rhett/L POC Total CO2 (24-31) mmol/L POC Base Excess (-9-1.8) rhett/L POC ABG O2 Sat (90-95) % VBG pH (7.36-7.41) VBG pCO2 (38-50) mmHg VBG pO2 mmHg VBG HCO3 mmol/L VBG O2 Saturation % VBG Base Excess mEq/L POC Sodium (135-144) mmol/L Sodium 120 L (136-145) mmol/L POC Potassium (3.3-5.0) mmol/L Potassium 5.4 H (3.5-5.1) mmol/L Chloride 87 L (98-107) mmol/L Carbon Dioxide 21 (21-32) mmol/L Anion Gap 12 H (3-11) BUN 34 H (6-23) mg/dl Creatinine 1.08 (0.6-1.2) mg/dl Est Cr Clr Drug Dosing 55.6 ml/min Est GFR ( Amer) 59.4 ml/min Est GFR (Non-Af Amer) 51.2 ml/min BUN/Creatinine Ratio 31.5 H (10-20) Glucose 61 L (70-99(Fasting)) mg/dl POC Glucose (70-99) mg/dl Estimat Average Glucose mg/dl Hemoglobin A1c (4.5-5.6) % Osmolality (280-300) mOsm/kg Lactate 1.4 (0.4-2.0) mmol/L Calcium 8.2 L (8.6-10.3) mg/dl Phosphorus (2.5-4.9) mg/dl Magnesium 2.0 (1.7-2.4) mg/dl Total Bilirubin 0.6 (0.2-1.0) mg/dl Direct Bilirubin 0.1 (0-0.2) mg/dl AST 72 H (13-39) U/L ALT 43 (7-52) U/L Alkaline Phosphatase 260 H (34-104) U/L Ammonia Troponin I High Sens 48.6 H (0-14) pg/ml Total Protein 7.0 (6.0-8.3) gm/dl Albumin 2.6 L (3.4-5.0) gm/dl Procalcitonin 0.51 H (0-0.5) ng/ml Random Cortisol mcg/dl Urine Color Dark Yellow Urine Appearance Turbid A (Clear) Urine pH 5.5 (4.5-7.5) Ur Specific [place] 1.014 (1.000-1.030) Urine Protein 1+ H (Negative) Urine Glucose (UA) Negative (Negative) Urine Ketones Trace H (Negative) Urine Blood 2+ H (Negative) Urine Nitrite Negative (Negative) Urine Bilirubin 1+ H (Negative) Urine Urobilinogen Negative (Negative) Ur Leukocyte Esterase 3+ H (Negative) Urine WBC (Auto) >50 H (0-5) /hpf Urine RBC (Auto) 0-2 (0-2) /hpf U Hyaline Cast (Auto) 3-5 H (0-2) /lpf U Epithel Cells (Auto) 6-10 H (0-2) /hpf Urine Bacteria (Auto) 4+ H (None Seen) Urine Osmolality (500-800) mOsm/kg Urine Sodium mmol/L Urine Potassium mmol/L Urine Chloride mmol/L Nasal Screen MRSA (PCR) (Negative) Enterobacterales (PCR) DETECTED A (NotDetected) E. coli (PCR) DETECTED A (NotDetected) mcr-1 Colistin Res Gene PCR Not Detected (NotDetected) blaIMP Car res Gene PCR Not Detected (NotDetected) KPC-Carbap Res Gene PCR Not Detected (NotDetected) blaNDM Car Res Gene PCR Not Detected (NotDetected) OXA-48 Carbapenem Resis Gene (PCR) Not Detected (NotDetected) blaVIM Car Res Gene PCR Not Detected (NotDetected) CTX-M Gene Resistance (PCR) Not Detected (NotDetected) Bld Cult ID Panel PCR See PCR Comment (NotDetected) Diagnostic Findings Chest X-Ray 11/09/23 13:44 XR chest 1V portable CLINICAL HISTORY: Sepsis TECHNIQUE: Single frontal radiograph of the chest was obtained. Comparison: Comparison is made to chest radiograph 09/14/2023 FINDINGS: Right reverse shoulder arthroplasty noted. Cardiomegaly is noted. Faint bibasilar airspace opacities are seen. Vascular prominence is again seen. No evidence of pleural effusion or pneumothorax. IMPRESSION: Cardiomegaly and mild pulmonary edema. Faint bibasilar airspace opacities likely represent pneumonia, somewhat less extensive than in the prior exam. ACT 112: Negative or not required by law. Electronically signed by: Jerry White M.D. 11/09/2023 2:18 PM Abdomen/Pelvis CT 11/09/23 13:47 CT abd pelvis IV con only CLINICAL HISTORY: diffuse ab pain TECHNIQUE: Helical axial images of the abdomen and pelvis were obtained and displayed. Automated dose lowering techniques and/or adjustment according to patient size were utilized for this exam. This exam was performed with intravenous contrast. CT DOSE: 1563.68 mGy.cm COMPARISON: Comparison is made to CT abdomen pelvis 08/01/2021 FINDINGS: Lower chest: Small left pleural effusion is seen atelectasis is seen. Liver: Unchanged nodular contour of the liver. Gallbladder and biliary tree: Patient is status post cholecystectomy. No intra- or extrahepatic biliary ductal dilation. Pancreas: Unremarkable, no focal lesions. Spleen: Unremarkable. Adrenals: Unremarkable. Kidneys and ureters: Unremarkable. Bladder: Deleon catheter is seen. Reproductive organs: Unremarkable. Bowel: Unremarkable. Lymph nodes Retroperitoneal: Unremarkable. Pelvic: Unremarkable. Mesenteric: Unremarkable. Peritoneum: Normal. Vessels: Atherosclerotic calcifications are seen. Abdominal wall: A large ventral hernia containing multiple loops of bowel. Bones: Degenerative changes in the visualized spine. L3 compression deformity is unchanged. IMPRESSION: No acute abnormalities to explain diffuse abdominal pain. Large ventral hernia is unchanged. ACT 112: Negative or not required by law. Electronically signed by: Jerry White M.D. 11/09/2023 3:53 PM PG Care Time/CCT Total # of Minutes Spent Total Time Spent with Patient: Total time spent is greater than 50% in coordination of care (as documented) at patient's floor/unit and/or counseling patient: I spent 80 minutes overall addressing this case: 10 min in medical data review/discussion with referring provider(s) and/or preparation for the visit 20 min in direct interaction with the patient/exam 30 min in Advance Care Planning/Goals of Care discussions as detailed above in note (must be >16min) 10 min in subsequent review and synthesis of assessment and plan 10 min communicating with other providers regarding the p atient's case: Advanced Care Planning 73725 Advanced Care Planning 30 [place] [address] IN/OBS CONSULT LVL 4,60M (25 - SIGNIFICANT, SEPARATELY IDENTIFIABLE ) Patient Type New Medical Decision Making High Complexity Diagnoses Dyspnea and respiratory abnormalities R06.00; R06.89 Weakness generalized R53.1 Advanced care planning/counseling discussion Z71.89 Palliative care by specialist Z51.5 Acute on chronic respiratory failure with hypoxia and hypercapnia J96.21; J96.22 Additional Codes Advanced Care Planning - 28358 Advanced Care Planning 30 Min: 53117 Advanced Care Planning 30 Min ([id number])
--- NOTE | 2023-11-12 15:06 | CT Scan Report ---
CT head/brain wo con CLINICAL HISTORY: 73 years-old Female with worsening altered MS, new aflutter; ?CVA, ICH?. Acutely a ltered mental status TECHNIQUE: Multiple axial CT images of the head were obtained without contrast. A dose lowering tech nique was utilized adhering to the principles of ALARA. CT DOSE: 625.8 mGy.cm COMPARISON: 12/12/2021 FINDINGS: No acute intracranial hemorrhage, midline shift, intracranial mass, hydrocephalus, territorial ischem ia or abnormal extra-axial collection. Involutional changes with unchanged mild white matter hypodens ities. Study is motion degraded. The calvarium is intact. Trace left mastoid effusion. The right mas toid air cells and paranasal sinuses are clear. Hypoplastic frontal sinuses. Unremarkable soft tissue s. IMPRESSION: No acute intracranial abnormality. ACT 112: Negative or not required by law. The above report was generated using voice recognition software. It may contain grammatical, syntax o r spelling errors. Electronically signed by: Dre Burleson M.D. 11/12/2023 3:04 PM
--- NOTE | 2023-11-12 15:15 | Electrocardiogram Report ---
Test Reason : Blood Pressure : / mmHG Vent. Rate : 126 BPM Atrial Rate : 126 BPM P-R Int : 184 ms QRS Dur : 152 ms QT Int : 310 ms P-R-T Axes : 000 147 -73 degrees QTc Int : 448 ms Atrial flutter Right bundle branch block Abnormal ECG Confirmed by Landon Malcolm ([id number]) on 11/12/2023 3:15:17 PM Referred By: REFERRED SELF Confirmed By:Michael Malcolm
[2023-11-12] MEDS: ENOXAPARIN INJ 40 MG/0.4 ML SYR SQ SCH (16:10)
[2023-11-12] MEDS ORDERED: LORazepam 0.5 MG in SYRINGE 0.25 ML IV PRN ×2 (17:54→18:12)
[2023-11-12] MEDS ORDERED: ONDANSETRON 4 MG OD TAB SL PRN (17:54)
[2023-11-12] MEDS ORDERED: LORazepam 0.5 MG TAB PO PRN (17:54)
[2023-11-12] MEDS ORDERED: ONDANSETRON INJ 2 MG/ML 2 ML VIAL IV PRN (17:54)
[2023-11-12] MEDS: MoRPHine SULFATE 2 MG/ML CARP IV PRN (17:59)
[2023-11-12] MEDS ORDERED: GLYCOPYRROLATE 0.2 MG/ML VIAL IV PRN (18:12)
--- NOTE | 2023-11-12 18:42 | Palliative Family Discussion ---
Date of Service November 12, 2023 Patient Directed Conference Time of Meetin-630pm by [facility] Yoana with pt, her and her daughter at ICU bedside Participants: Gabriela Peters DNP Patient participation: yes Patient Support System: and dtr at bedside Other Healthcare Provider Participation: Nursing x 2 Meeting Location: pt bedside with my presence vis [facility] iPad over [facility] Zoom Advanced Directive available: pt declares she would like [facility], elects DNR/DNI, wants to be dc home The patient's surrogate medical decision maker participated: yes and dtr A family meeting was held for ANABEL VACA. This meeting was necessary for determining the appropriate course of treatment. Topics of Discussion Topics of Discussion: 1. Progressive resp failure, CARLA, OHS, MDS, refusing NIV, elects DNR/DNI 2. Family in agreement /support pt decision 3. They would like home hospice Other Content of Meetin. Opportunity given for participants to speak and ask questions. 2. Participants were assured of attention to patient comfort. 3. Reassurance provided. 4. Support was provided for informed, good-jayne decisions. 5. Emotions expressed by family were acknowledged and addressed. 6. Follow-up: dc home with hospice "[facility]" per family request, ICU and hospital med teams updated, CM updated vis tiger for tomorrow morning. [facility] orders written. Dtr inquiring to continue Abtx orally for full dose of treatment. 7. Plan of Care: home with hospice. TS 45min 15 min in d/w teams, review of MAR and 30min with pt/family Thank you for allowing us to participate in the ongoing care of this patient. Please don't hesitate to call or page with any additional concerns. Dr. Gabriela Peters DNP Director, Palliative Care
[2023-11-12] MEDS ORDERED: Nursing to Pharmacy Communication SCH (19:45)
[2023-11-12] MEDS ORDERED: HYDROCORTISONE SOD 50 MG in SYRINGE 0 ML IV SCH (20:00)
--- NOTE | 2023-11-13 10:14 | Discharge Summary ---
Date of Service November 13, 2023 Admission HPI Per Admitting Provider Traci is a 73yo female with PMH of T2DM, anxiety, depression, HLD, HTN, stage III pressure ulcer, CHF, encephalopathy, subarachnoid hemorrhage, septic shock, NSTEMI, cor pulmonale, and palliative care consultations. She presented from [facility] for frequent falls and worsening fatigue on 11/08. Patient's family is at the bedside and provide most of the history, as patient is very lethargic at this time. Family reports that she came in for generalized weakness, and loss of appetite. She has been on a gradual decline since her hospitalization at [facility] in August 2023, that has involved a broken foot, palliative care talks, rehab at [facility], and most recently a C. difficile infection treated with metronidazole x 14 days. Patient did not take her regular morning medications today; she has not had any of her insulin as well. Only recent change in medications is that she was told to cut her Lantus from 10u BID --> 10u HS. Patient also notes some swelling in her arms over the past few days; she used to take Lasix, but is not currently on a diuretic. Patient previously had abdominal pain and rectal pain secondary to her C. difficile but this resolved shortly after starting antibiotics. Patient's daughter does note extensive history of severe iron deficiency anemia requiring iron infusions every month; also notes history of significant GI bleed, for which she is on Protonix. Patient had an A/P CT done for an internal bleed, and opted not to go with surgery. Discussion with patient and patient's family regarding current CODE STATUS, which has changed multiple times in the past few months. Patient has been on a ventilator in the past, and is okay with artificial ventilation if needed, however after discussion of risks and benefits, she would not like CPR moving forward; conditional code. Patient had a new Deleon placed in the ED at time of admission. She is a former tobacco cigarette smoker; 1 PPD. No recent alcohol use. No recreational drug use. Patient is on continuous supplemental oxygen for L NC at baseline. Patient is hypertensive at 113 bpm at time of admission; SpO2 97% on 4L NC. ED Course: Zosyn 4.5 g IV NSS 500 mL IV ROS: Patient endorses body aches (everywhere she touches hurts), SOB at rest, nausea, loss of appetite, vomiting x 1 episode, bowel/bladder incontinence x 2 months, and neuropathy in the lower extremities. Patient denies fever, chills, night-sweats, chest pain, chest palpitations, cough, abdominal/rectal pain (resolved; originally secondary to recent C-diff), burning sensation in the groin, or saddle anesthesia. Principal Diagnosis septic shock due to E. coli bacteremia and UTI, acute on chronic hypoxic and hypercapnic respiratory failure Discharge Exam Lying on side in bed, at bedside Appears comfortable, awake and verbal but lethargic Lungs CTAB without rrw HEart reg no mrg Abd sntnd +BT Ext wwp Discharge Data Allergies Allergy/AdvReac Type Severity Reaction Status Date / Time latex Allergy Severe 2ND DEGREE Verified 08/23/23 01:52 BURN FROM BANDAGE adhesive Allergy Intermediate RASH Verified 08/23/23 01:52 Consultations 11/09/23 16:08 ED Decision to Admit Stat 11/09/23 22:57 Consult Cable Cutter And Swager Routine 11/12/23 11:17 Consult Palliative Care Routine Ordered Studies 11/09/23 13:47 CT abd pelvis IV con only Stat 11/12/23 14:[address] [CT head/brain wo con] Urgent Chest X-Ray 11/09/23 13:44 XR chest 1V portable CLINICAL HISTORY: Sepsis TECHNIQUE: Single frontal radiograph of the chest was obtained. Comparison: Comparison is made to chest radiograph 09/14/2023 FINDINGS: Right reverse shoulder arthroplasty noted. Cardiomegaly is noted. Faint bibasi lar airspace opacities are seen. Vascular prominence is again seen. No evidence of pleural effusion or pneumothorax. IMPRESSION: Cardiomegaly and mild pulmonary edema. Faint bibasilar airspace opacities likely represent pneumonia, somewhat less extensive than in the prior exam. ACT 112: Negative or not required by law. Electronically signed by: Jerry White M.D. 11/09/2023 2:18 PM Abdomen/Pelvis CT 11/09/23 13:47 CT abd pelvis IV con only CLINICAL HISTORY: diffuse ab pain TECHNIQUE: Helical axial images of the abdomen and pelvis were obtained and di splayed. Automated dose lowering techniques and/or adjustment according to patient size were utilized for this exam. This exam was performed with intravenous contrast. CT DOSE: 1563.68 mGy.cm COMPARISON: Comparison is made to CT abdomen pelvis 08/01/2021 FINDINGS: Lower chest: Small left pleural effusion is seen atelectasis is seen. Liver: Unchanged nodular contour of the liver. Gallbladder and biliary tree: Patient is status post cholecystectomy. No intra- or extrahepatic biliary ductal dilation. Pancreas: Unremarkable, no focal lesions. Spleen: Unremarkable. Adrenals: Unremarkable. Kidneys and ureters: Unremarkable. Bladder: Deleon catheter is seen. Reproductive organs: Unremarkable. Bowel: Unremarkable. Lymph nodes Retroperitoneal: Unremarkable. Pelvic: Unremarkable. Mesenteric: Unremarkable. Peritoneum: Normal. Vessels: Atherosclerotic calcifications are seen. Abdominal wall: A large ventral hernia containing multiple loops of bowel. Bones: Degenerative changes in the visualized spine. L3 compression deformity is unchanged. IMPRESSION: No acute abnormalities to explain diffuse abdominal pain. Large ventral hernia is unchanged. ACT 112: Negative or not required by law. Electronically signed by: Jerry White M.D. 11/09/2023 3:[address] 11/12/23 14:13 CT head/brain wo con CLINICAL HISTORY: 73 years-old Female with worsening altered MS, new aflutter; ?CVA, ICH?. Acutely altered mental status TECHNIQUE: Multiple axial CT images of the head were obtained without contrast. A dose lowering technique was utilized adhering to the principles of ALARA. CT DOSE: 625.8 mGy.cm COMPARISON: 12/12/2021 FINDINGS: No acute intracranial hemorrhage, midline shift, intracranial mass, hydroceph alus, territorial ischemia or abnormal extra-axial collection. Involutional changes with unchanged mild white matter hypodensities. Study is motion degraded. The calvarium is intact. Trace left mastoid effusion. The right mastoid air cells and paranasal sinuses are clear. Hypoplastic frontal sinuses. Unremarkable soft tissues. IMPRESSION: No acute intracranial abnormality. ACT 112: Negative or not required by law. The above report was generated using voice recognition software. It may contain grammatical, syntax or spelling errors. Electronically signed by: Dre Burleson M.D. 11/12/2023 3:04 PM Hospital Course (1) Septic shock due to Escherichia coli: Traci was admitted to ICU with septic shock due to E. coli bacteremia and UTI. She also developed acute encephalopathy and acute on chronic hypoxic and hypercapnic respiratory failure. She was treated briefly with pressors, with IV antibiotics, IV fluids, stress dose steroids. CT abdomen/pelvis was negative for obstructing kidney stone or other urinary tract abnormalities. After extensive discussions with ICU attending Dr Dang, palliative care Dr Peters, and hospitalist Dr. Khan she transitioned to comfort care. She was able to participate in discussion last night with Dr. Peters and declined noninvasive ventilation and wished to discharge home on hospice. E. coli is resistant to fluoroquinolones but sensitive to cephalosporins. Provided prescription for 10 more days oral cefadroxil per her daughter's request. (2) E. coli bacteremia: as above source - urinary tract doubt sacral decub as source but can't exclude it 100% has a port that is nonfunctioning but if that was the source I would anticipate more blood cultures being positive (and ecoli seldomly causes port infection anyway) (3) Sepsis: as above (4) Acute UTI (urinary tract infection): 2nd e.coli (5) Hyponatremia: urine osm quite low urine Na <10 suggesting solute deficiency; further, she is not on chronic diuretics although she had some edema peripherally she otherwise did not examine in decompensated CHF she appeared intravascularly volume contracted regardless - transitioning to V[facility] CHANCELLOR - d/c urea tabs, d/c lab draws, etc (6) Diabetes mellitus type 2, uncontrolled: hba1c 5.4% was on metformin, januvia, and lantus/novolog at time of admission stop all Rx stop all BSG checks (7) Chronic respiratory failure with hypoxia and hypercapnia: was on 4 L NC O2 at baseline at home (8) Hx of Clostridium difficile infection: Patient recently completed course of Flagyl x 14 days by report at home prior to admission (9) Chronic right-sided congestive heart failure: although she has peripheral edema in her arms/legs, she otherwise was not Anasar ca (10) Chronic heart failure with preserved ejection fraction (HFpEF): (11) Hyperkalemia: resolved 2nd to shock, decreased renal perfusion (12) Elevated troponin: peak HS troponin high 40s no evidence of ACS likely was myocardial demand ischemia in setting of #1 (13) Chronic obstructive pulmonary disease: with resulting chronic hypoxic respiratory failure (14) Acute metabolic encephalopathy: Related to sepsis and respiratory failure CT head w/o acute findings (15) Peripheral neuropathy: stop gabapentin (16) Mood disorder: stop usual meds (17) Pressure injury of deep tissue of sacral region: (18) Atrial flutter: a.fib, 2:1 flutter, variable block flutter (19) Acute on chronic hypoxic respiratory failure: Plan Discharged home with home hospice Hospice comfort meds prescribed on discharge Total Time Total Time Spent Total Time Spent (In Minutes): 45 minutes spent coordinating care for discharge - reviewing chart notes and vital signs, examining patient and counseling her , arranging discharge prescriptions, discussion with care coord, discharge instructions and orders Discharge Plan Discharge Items Patient Disposition: Hospice - Home Reason For Visit: GENERALIZED WEAKNESS, URINARY S/S Discharge Diagnosis: septic shock due to E. coli bacteremia and UTI, acute on chronic hypoxic and hypercapnic respiratory failure Activity: Resume your previous activity Non-emergency contact: Primary Care Provider Call non-emergency contact if: you have any medication questions and your symptoms worsen Follow-up/Referrals: Caryn Avalos MD [Primary Care Provider] - Diet: Regular Addtl Attending Provider Instructions: You may take antibiotics for the infection (cefadroxil) for 10 more days as long as you are able to tolerate/swallow oral medicines Call hospice for any questions or concerns about medications or symptom m anagement. Pending Studies at Discharge: No Stand-Alone Forms: My [facility] Medications and DC Order Prescriptions: New ondansetron 4 mg tablet,disintegrating 4 mg PO Q4H PRN (Reason: nausea and vomiting) Qty: 14 0RF morphine concentrate 100 mg/5 mL (20 mg/mL) solution 10 mg sublingual Q4H PRN (Reason: pain or shortness of breath) Qty: 15 0RF lorazepam 1 mg tablet 1 mg sublingual Q4H PRN (Reason: anxiety, shortness of breath) Qty: 14 0RF ondansetron 4 mg tablet,disintegrating 4 mg PO Q4H PRN (Reason: nausea and vomiting) Qty: 14 0RF cefadroxil 1 gram tablet 1,000 mg PO BID 10 Days Qty: 20 0RF Continued gabapentin 300 mg Capsule 300 mg PO TID quetiapine 100 mg tablet 100 mg PO HS polyethylene glycol 3350 [Miralax] 17 gram Powder In Packet 17 g PO DAILY Qty: 14 0RF Rx Instructions: MAY HAVE ADDITIONAL DOSE DAILY FOR CONSTIPATION pantoprazole 40 mg Tablet,Delayed Release (Dr/Ec) 40 mg PO BID Qty: 30 0RF sennosides-docusate sodium [Senokot-S] 8.6-50 mg Tablet 1 tab PO BID Qty: 60 0RF Rx Instructions: isnt sure of this medication 11/09/23 acetaminophen [Tylenol] 325 mg Tablet 650 mg PO Q4H MDD 3 GRAMS APAP/24 HOURS PRN (Reason: PAIN/FEVER=>100) docusate sodium [Colace] 100 mg Capsule 100 mg PO DAILY PRN (Reason: Constipation) ipratropium-albuterol 0.5 mg-3 mg(2.5 mg base)/3 mL solution for nebulization 3 ml inhalation Q6H PRN (Reason: Dyspnea) mirtazapine 30 mg tablet 30 mg PO HS Discontinued atorvastatin [Lipitor] 80 mg Tablet 80 mg PO HS aspirin [Malcom Low Dose Aspirin] 81 mg Tablet,Delayed Release (Dr/Ec) 81 mg PO HS magnesium oxide 400 mg (241.3 mg magnesium) Tablet 400 mg PO BID Qty: 20 0RF insulin aspart U-100 [Novolog U-100 Insulin aspart] 100 unit/mL Solution 0.1 unit SC ACHS Qty: 10 0RF Rx Instructions: Per the , he isn't sure on insulins/ some medications. Gave EMT an updated list of medications but he doesnt know if the nurses received the list. 11/09/23 Goal BSG Range: Low 110mg/dL, High 140mg/dL --Correction Factor: 35mg/dL/unit --Carbohydrate ratio = 15 g/unit insulin glargine [Lantus U-100 Insulin] 100 unit/mL Solution 10 unit subcut BID Qty: 30 0RF Rx Instructions: Per the , he isn't sure on insulins/ some medications. Gave EMT an updated list of medications but he doesnt know if the nurses received the list. 11/09/23 metformin 500 mg tablet 500 mg PO BID Januvia 100 mg tablet 100 mg PO DAILY insulin glargine-yfgn [Semglee(insulin glarg-yfgn)Pen] 100 unit/mL (3 mL) insulin pen 0 unit SUBCUT DAILY Rx Instructions: Per the , he isn't sure on insulins/ some medications. Gave EMT an updated list of medications but he doesnt know if the nurses received the list. 11/09/23 Discharge Orders: Discharge Order (Routine); Ordered 11/13/23 Ordered By: Shannan Jefferson/Other Patient Handouts: Hypoglycemia (Low Blood Sugar), Managing Type 2 Diabetes Admission Data Admit Date/Time: 11/09/23 18:42 Attending Provider: Shannan Nobles Admit Provider: Kaiden Grimes Primary Care Provider: Caryn Avalos Other Providers: Kaiden Grimes; Cuco Gonzalez; Gabriela Peetrs; [facility] Other Interventions: Discharge Summary Assessment (RN) Last Done: 11/13/23 13:56 Coding Level of Care Code 47953 INP/OBS DISCH >30 MIN Diagnoses Septic shock due to Escherichia coli A41.51; R65.21 E. coli bacteremia R78.81; B96.20 Sepsis A41.9; R65.20 Sepsis acute organ dysfunction status: with acute organ dysfunction Sepsis type: sepsis due to unspecified organism Severe sepsis acute organ dysfunction type: unspecified Severe sepsis shock status: unspecified Acute UTI (urinary tract infection) N39.0 Hyponatremia E87.1 Diabetes mellitus type 2, uncontrolled E11.65 Chronic respiratory failure with hypoxia and hypercapnia J96.11; J96.12 Hx of Clostridium difficile infection Z86.19 Chronic right-sided congestive heart failure I50.812 Chronic heart failure with preserved ejection fraction (HFpEF) I50.32 Hyperkalemia E87.5 Elevated troponin R79.89 Chronic obstructive pulmonary disease, unspecified COPD type J44.9 COPD type: unspecified COPD Acute metabolic encephalopathy G93.41 Other polyneuropathy G62.89 Peripheral neuropathy type: polyneuropathy, other Mood disorder F39 Pressure injury of deep tissue of sacral region L89.156 Atrial flutter I48.92 Acute on chronic hypoxic respiratory failure J96.21
[2023-11-13] MEDS: HYDROmorphone INJ 0.5 MG/0.5 ML SYR IV PRN (11:31)
== END 2023-11-13 14:32 | disposition hospice, home (50) | DRG 871 ==
LOC: ED 12:55 → SUATTDRO 18:42 → EDINP 18:42 → 1E 21:47 → 3E 11-12 21:53
DX: E87.5 Hyperkalemia; Z68.35 Body mass index [BMI] 35.0-35.9, adult; E11.42 Type 2 diabetes mellitus with diabetic polyneuropathy; J96.22 Acute and chronic respiratory failure with hypercapnia; I50.812 Chronic right heart failure; B96.20 Unspecified Escherichia coli [E. coli] as the cause of diseases classified elsewhere; Z99.81 Dependence on supplemental oxygen; K43.9 Ventral hernia without obstruction or gangrene; D50.9 Iron deficiency anemia, unspecified; F41.9 Anxiety disorder, unspecified; N39.0 Urinary tract infection, site not specified; I24.89 Other forms of acute ischemic heart disease; Z79.4 Long term (current) use of insulin; A41.51 Sepsis due to Escherichia coli [E. coli]; G93.41 Metabolic encephalopathy; I27.81 Cor pulmonale (chronic); Z86.19 Personal history of other infectious and parasitic diseases; I48.92 Unspecified atrial flutter; Z91.048 Other nonmedicinal substance allergy status; I50.32 Chronic diastolic (congestive) heart failure; F32.A Depression, unspecified; R65.21 Severe sepsis with septic shock; E78.5 Hyperlipidemia, unspecified; Z91.040 Latex allergy status; L89.153 Pressure ulcer of sacral region, stage 3; E66.01 Morbid (severe) obesity due to excess calories; I11.0 Hypertensive heart disease with heart failure; Z79.899 Other long term (current) drug therapy; Z66 Do not resuscitate; J44.9 Chronic obstructive pulmonary disease, unspecified; R00.0 Tachycardia, unspecified; Z51.5 Encounter for palliative care; Z79.84 Long term (current) use of oral hypoglycemic drugs; Z95.828 Presence of other vascular implants and grafts; Z16.23 Resistance to quinolones and fluoroquinolones; J96.21 Acute and chronic respiratory failure with hypoxia; E87.1 Hypo-osmolality and hyponatremia; Z79.82 Long term (current) use of aspirin; E11.649 Type 2 diabetes mellitus with hypoglycemia without coma